=== PATIENT | male | born 1960 | race Caucasian/White ===

== ENCOUNTER 2021-04-01 16:37 | Inpatient (IN) | payer MEDICARE, SELFPAY ==
[2021-04-01] VITALS (14 sets, daily range): BP systolic 106–154; BP diastolic 43–89; PULSE 66–89; RESP 14–18; TEMP 36.1–36.6; O2SAT 93–100; BMI 29.2
--- NOTE | ~2021-04-01 | NM_ITS ---
EXAMINATION: NM BONE SCAN OF THE WHOLE BODY CLINICAL INFORMATION: Prostate cancer staging. COMPARISON: CT chest, abdomen and pelvis 04/02/2021 TECHNIQUE: Multiple gamma scintillation camera images of the whole body were performed 3 1/4 hours following the intravenous administration of 23.0 mCi Tc-99m MDP. FINDINGS: In the head, no abnormal activity is seen to suspect any metastasis. In the thoracic cage and upper extremities, there is punctate increased activity right posterior 6th and left posterior 11th ribs. There is intense activity seen left humeral head and [id number] increased activity right humeral head. Nonspecific soft tissue activity is seen in the left forearm, likely site of injection. In the spine, moderate focal activity is seen right T10 vertebra, suspicious. In the pelvis, no abnormal metabolic activity is seen. In the lower extremities, there is a photopenic defect in the right hip joint and bilateral knee joints likely related to prostheses. No abnormal metabolic activity is seen. No other definite bony abnormalities are noted. The urinary bladder and faint visualization of both kidneys are noted. NM/NM bone scan whole body IMPRESSION: Moderate increased activity seen in the right posterior 6th, left posterior 11th ribs, bilateral humeral heads slightly greater on the left, and right posterior 10th vertebra suspicious and suggestive of metastatic disease. Correlation with right shoulder joint to exclude arthritis versus metastatic disease can be performed. The right shoulder joint was not well visualized on the CT chest exam 04/02/2021. There is mild increased activity in the left hip joint, likely degenerative changes. There are bilateral knee and right hip prostheses producing photopenic defect.
--- NOTE | ~2021-04-01 | US_ITS ---
EXAMINATION: US RETROPERITONEAL LIMITED (RENAL ONLY) CLINICAL INFORMATION: Acute kidney injury. COMPARISON: CT abdomen and pelvis without contrast on 08/31/2018. TECHNIQUE: Grayscale and color Doppler techniques were used to evaluate the bilateral kidneys. Findings: RIGHT KIDNEY: 9.6 x 4.9 x 5.0 cm (SAG x AP x TRV). Corticomedullary Differentiation: Increased renal cortical echogenicity. Hydronephrosis: Moderate to severe Mass: None imaged. Cysts: None imaged. Stones: None imaged LEFT KIDNEY: 9.2 x 5.3 x 6.2 cm (SAG x AP x TRV). Corticomedullary Differentiation: Increased renal cortical echogenicity. Hydronephrosis: Severe. There is dilatation of the proximal left ureter measuring up to 8 mm. Mass: None imaged. Cysts: None imaged. Stones: None imaged BLADDER: The bladder is mostly decompressed around a Zheng catheter. US/US renal BI IMPRESSION: 1. Moderate to severe right-sided hydronephrosis and severe left-sided hydronephrosis. 2. No renal calculi identified. 3. The bladder is decompressed around a Zheng catheter.
--- NOTE | ~2021-04-01 | FL_ITS ---
EXAMINATION: Intraoperative fluoroscopy CLINICAL INFORMATION: Bilateral stent placement COMPARISON: CT abdomen pelvis April 02, 2021 TECHNIQUE: Intraoperative fluoroscopy was provided for use by Dr. Restrepo. A total of 5 images were saved to PACS. A radiologist was not present during imaging. Today's dictation is only for administrative purposes to document intraoperative fluoroscopic usage. TOTAL FLUOROSCOPIC TIME: 5 minutes and 53 seconds FL/FL guidance in OR FINDINGS~\^^ Intraoperative fluoroscopy provided for use by Dr. Restrepo. Please see operative note for detailed findings.
--- NOTE | ~2021-04-01 | US_ITS ---
EXAMINATION: US RETROPERITONEAL LIMITED (RENAL ONLY) CLINICAL INFORMATION: Evaluate for hydronephrosis. Patient is postop bilateral ureteral stent placement with no improvement in renal function. COMPARISON: Previous renal ultrasound 04/01/[address] of the abdomen and pelvis most recent 04/02/2021 TECHNIQUE: Grayscale and color imaging of the kidneys FINDINGS: RIGHT KIDNEY: 10.2 x 5.9 x 6.4 cm (SAG x AP x TRV). The kidney is normal in size, contour, and echogenicity. Renal cortical thickness is normal. There is severe right hydronephrosis. This does not appear appreciably changed from previous exam. Ureteral stent is seen in the right renal pelvis. The visualized right ureter is dilated. LEFT KIDNEY: 9.8 x 5.4 x 6.4 cm (SAG x AP x TRV). The kidney is normal in size, contour, and echogenicity. There is left renal cortical thinning. There are severe left hydronephrosis. This does not appear appreciably changed. Ureteral stent is seen in an upper pole calyx. The visualized left ureter is dilated. US/US renal BI IMPRESSION: Severe bilateral hydronephrosis not appreciably changed from 04/01/2021 exam.
--- NOTE | ~2021-04-01 | IR_ITS ---
PROCEDURE: FLUOROSCOPY NEPHROSTOGRAM CLINICAL INFORMATION: Bilateral nephrostomy tube placement. COMPARISON: Acute on chronic renal failure and bilateral hydronephrosis. Prostate cancer. Patient is post bilateral internal ureteral stent placement without improvement in renal function. Renal ultrasound demonstrates persistent bilateral hydronephrosis post ureteral stent placement. TECHNIQUE: Procedure and risks and benefits including bleeding, infection and injury to the kidneys was discussed with the patient and informed consent was obtained. The patient was positioned in the prone position. All elements of maximal sterile barrier technique followed including use of cap, mask, sterile gown, sterile gloves, a sterile full body drape and hand hygiene. Also followed skin preparation with 2% chlorhexidine for cutaneous antisepsis, and sterile ultrasound preparation with sterile gel and probe cover when applicable. The left flank was prepped and draped in the usual sterile fashion. The skin and soft tissues were anesthetized with 1% lidocaine plain. Using ultrasound guidance and a 22-gauge Chiba needle, left lower pole calyceal access was obtained. Over a 0.018 wire, a 6 [place] AccuStick system was positioned in the left renal collecting system. Over a 0.035 guidewire, an 8.5 [place]hi pigtail nephrostomy tube was positioned in the left renal collecting system. The right flank was prepped and draped in the usual sterile fashion. The skin and soft tissues were anesthetized with 1% lidocaine plain. Using ultrasound guidance and a 22-gauge Chiba needle, right lower pole calyceal access was obtained. Over a 0.018 wire, a 6 [place] AccuStick system was positioned in the right renal collecting system. Over a 0.035 guidewire, an 8.5 [place] pigtail nephrostomy tube was positioned in the right renal collecting system. Urine specimen was sent for culture and cytology from both nephrostomy tubes. Real-time ultrasound guidance was used. Formal ultrasound pictures were recorded. The patient received Versed 1 mg and fentanyl 50 mcg intravenously during the procedure. FINDINGS: [employer] film demonstrates bilateral internal ureteral stents. There is severe bilateral hydronephrosis and bilateral ureteral dilatation. Final images demonstrate bilateral nephrostomy tube placement in the renal pelvises. TOTAL SEDATION TIME: 60 minutes. FLUOROSCOPY TIME: 7.1 minutes. DOSE AREA PRODUCT: 2114 cGy-cm2 (mcgarry per centimeter squared). IR/IR nephrostomy IMPRESSION: Bilateral nephrostomy tube placement.
--- NOTE | ~2021-04-01 | XR_ITS ---
EXAMINATION: CHEST 2 VIEWS CLINICAL INFORMATION: Dyspnea, weight loss rule out mass, pneumonia . COMPARISON: 08/31/2018. TECHNIQUE: PA and lateral views of the chest obtained. FINDINGS: Lungs are well-expanded with no focal infiltrate, effusion, edema, or pneumothorax. Cardiac and mediastinal silhouettes within normal limits for size. Chronic fusion of the anterior left fourth and fifth ribs seen. There is a 4.8 cm sclerotic lesion in the left humeral head now seen. Etiology of this is uncertain. XR/XR chest 2V IMPRESSION: Sclerotic lesion in the left humeral head of uncertain etiology. This was not definitively seen on the prior study but shoulders not included in its entirety on the prior chest x-ray. Clinical correlation recommended. Dedicated shoulder films could be obtained if needed.
--- NOTE | ~2021-04-01 | CT_ITS ---
EXAMINATION: CT CHEST, ABDOMEN AND PELVIS WITH CONTRAST CLINICAL INFORMATION: Shortness of breath Chest x-ray 04/01/2021. CT abdomen pelvis 08/31/2018 COMPARISON: None. TECHNIQUE: Multidetector volumetric CT imaging of the chest, abdomen and pelvis was obtained after the administration of 50 mL of intravenous Ultravist without immediate adverse reactions. [This CT examination was performed using dose optimization techniques as appropriate, variously including the following: *Automated exposure control *Adjustment of mA and/or kV according to patient size (this includes techniques or standardized protocols for targeted exams where dose is matched to indication/reason for exam; i.e. extremities or head) *Use of iterative reconstruction technique] DLP: 768 mGy-cm. FINDINGS: CT CHEST: Lungs: The lungs are clear with no evidence of inflammation or nodules. There are a few scattered focal pleural thickening along the major fissure in the right lung and minor fissure consistent with an intrafissural lymph nodes. Mediastinum: No mediastinal mass or significant lymphadenopathy. The heart size is normal. No pericardial effusion. No aneurysm of aorta. Moderate volume of vascular calcification of coronary arteries. Pleura: There is no pleural effusion. No pleural mass or thickening. Axilla: No lymphadenopathy. CT ABDOMEN AND PELVIS: Liver, Gallbladder and Biliary Tree: The liver is normal in size, shape, and attenuation. No focal hepatic lesion or biliary ductal dilatation is present. The gallbladder is unremarkable with no evidence of radiopaque gallstones, gallbladder wall thickening, or obvious pericholecystic inflammatory changes. Pancreas: No acute change of the pancreas. No mass. No pancreatic duct dilatation. Spleen: Spleen normal in size and contour. No focal lesion. Adrenal Glands: Adrenal glands are normal in size. No focal mass. Kidneys and Ureters: There is chronic hydronephrosis of both kidneys with distention renal pelvis calyces and bilateral hydroureter. This is unchanged since the CAT scan of 08/31/2018. There is mild cortical thinning of both kidneys. Cortical thinning has progressed since prior study of 2019. No renal or ureteral calculus. Bladder: Zheng catheter within the bladder. Bladder is empty. Bladder wall is thickened but this can be accentuated by the bladder being empty. Bladder wall measures about 2 cm in thickness. Gastrointestinal Tract: There are scattered diverticula of the left colon. There is no diverticulitis. There is no bowel wall thickening /edema. There is no bowel obstruction. There is a moderate volume of stool in the colon. The appendix is normal . The small bowel loops are unremarkable. The stomach is normal. There is no hiatal hernia. Mesentery: No focal inflammation. No free fluid. No free air. Abdominal Wall: No significant hernia is appreciated. Lymph Nodes: Normal. Vascular: Atherosclerotic vascular calcifications of aorta and iliac arteries. There is no aneurysm. Pelvic Viscera: Prostate measures 4.0 cm transverse. Osseous Structures: Multilevel degenerative spondylosis spine. There are numerous osteosclerotic lesions throughout the skeleton. Larger lesions present at T10 and L4 vertebrae and left humeral head. There are multiple additional lesions seen throughout the osseous skeleton. Lesions concerning for metastatic disease. Lesions are new since CAT scan 08/31/2018. Status post right hip replacement. CT/CT abdomen pelvis wo con IMPRESSION: 1. Scattered osteosclerotic lesions throughout the osseous skeleton concerning for metastatic disease. Consider bone scan for further assessment. 2. No acute abnormality of the chest. No suspicious lung lesion. 3. Chronic hydronephrosis and hydroureter of both kidneys similar to CAT scan of 08/31/2018. There is progressive cortical thinning of kidneys bilateral. 4. Zheng catheter within the bladder. Diffuse bladder wall thickening which may be accentuated by the bladder being empty. 4. Diverticulosis of the colon. There is no acute abnormality of the bowel.
--- NOTE | 2021-04-01 17:34 | ECG_ITS ---
Test Reason : WEAKNESS Blood Pressure : / mmHG Vent. Rate : 060 BPM Atrial Rate : 060 BPM P-R Int : 174 ms QRS Dur : 094 ms QT Int : 498 ms P-R-T Axes : 072 010 083 degrees QTc Int : 498 ms Normal sinus rhythm Prolonged QT Abnormal ECG When compared with ECG of 15-MAR-2017 11:43, QT has lengthened Referred By: Catracho Smith Electronically Signed By:MELONY MENJIVAR
--- NOTE | 2021-04-01 17:45 | ED_ITS ---
HPI - General Adult General Chief complaint: Weakness Stated complaint: lethargic Time Seen by Provider: 04/01/21 17:25 Source: patient Mode of arrival: ambulatory Limitations: no limitations History of Present Illness HPI narrative: 61-year-old male who presents emergency department for evaluation of weakness shortness of breath and weight loss. Patient states that he has not been feeling well for approximately 2 to weeks. He states he feels short of breath at rest and has significant dyspnea on exertion. He states he has also had a 10-20 lb weight loss over the past 2-3 weeks. He states that he also feel s tired and fatigued which is unusual for him. He states he has had similar symptoms in the past when he had kidney failure and when he had anemia. He denied headache, nausea, vomiting, chest pain, abdominal pain, changes bowel movements, change in his urine. Related Data Home Medications Medication Instructions Recorded Confirmed [id number] acid 300 1 tab PO DAILY 04/01/21 04/01/21 mcg-lycopene 600 mcg-lutein 300 mcg tablet (Centrum Silver Men) Allergies Allergy/AdvReac Type Severity Reaction Status Date / Time No Known Allergies Allergy Unverified 04/17/20 18:44 [No Known Allergies*] Review of Systems Review of Systems: Yes all other systems are reviewed and are negative [facility] Past Medical History [facility] Narrative: Past medical history: None. Past surgical history none: Social history: He denies tobacco, alcohol and drug use. Social History Social History Advance Directives: No Advance Directives Information Provided: Yes Physical Exam Vital Signs: Vital Signs: Last Vital Signs Temp 97.8 F 04/01/21 22:21 Pulse 78 04/01/21 22:21 Resp 18 04/01/21 22:30 BP 148/54 H 04/01/21 22:21 Pulse Ox 94 04/01/21 22:16 Body Mass Index 29.2 Const: General: cooperative and no acute distress Orientation/consciousness: oriented to person and oriented to place Limitations: no limitations HENMT: Head: Yes normal to inspection, Yes normocephalic and Yes atraumatic Ears: external ears normal General nose exam: Normal external nose present Face and sinus: Yes normal facial exam Mouth: Normal oral and palatal mucosa present Throat: Yes posterior oropharynx normal Eyes: General: appearance normal, both eyes and all related structures Pupils: Equal, round and reactive pupils present Neck: Neck: Yes normal visual inspection, Yes no lymphadenopathy, Yes trachea midline and Yes supple Chest: Chest palpation & inspection: normal inspection of the chest and normal palpation of entire chest wall Resp: Effort & Inspection: normal respiratory effort and able to speak in complete sentences Auscultation: clear to auscultation bilaterally Cardio: Rate: regular rate Rhythm: regular rhythm Heart sounds: S1 normal heart sound present, S2 normal heart sound present and no murmurs GI: Inspection: Yes normal to inspection Palpation (GI): Soft to palpation, nontender and no guarding Auscultation: normal bowel sounds Rectal Exam - Male: Yes visual inspection normal, Yes normal sphincter tone, Yes prostate abnormal (Large prostate versus rectal mass) and Yes heme negative stool (Brown stool) : General: Yes no CVA tenderness Back/Spine/Pelvis: Back: no CVA tenderness Skin: General skin exam: no rashes or lesions noted Neuro: General: oriented to person and oriented to place Cranial nerves: Yes CN's II-XII intact bilaterally and Yes Equal, round and reactive pupils present Cognition (Neuro): normal cognition Motor exam (neuro): 5/5 motor strength present throughout Extrem: General: Yes normal to inspection Psych: Appearance: grossly normal Speech and movement: Normal speech and movement present Affect: normal affect Attitude: cooperative Thought process: Normal thought process present Thought content: Normal thought content present Course Course Course Narrative: 61-year-old male who presents emergency department for evaluation shortness of breath, dyspnea on exertion and weight loss over the past 2-3 weeks. Vital signs were normal. The patient's physical examination was unremarkable except for a very large prostate versus rectal mass. Stool was Hemoccult negative. I did order laboratory evaluation on this patient, EKG and chest x-ray. 1848: Patient's CBC revealed normal white blood count of 7100, anemia with an H&H of 5.9 and 16.3 with a low MCV of 76.5 The patient has had anemia in the past with an H&H of 8.4 and 26.1 on 01/18/2019. The patient had normal MCV is at that time. Patient also has an elevated D-dimer given the elevated D-dimer and the fact the patient had a large prostate verses rectal mass, I did order a CT scan of the chest, abdomen pelvis with IV contrast to look for possible malignancy/PE. I did order 2 units of packed red blood cells to be transfused as soon as available. 2031: CMP revealed acute kidney injury with a BUN of 165 and a creatinine of 14.63. Therefore CT scan of chest, abdomen, pelvis with IV contrast was canceled. This was compared to a BUN of 64 and creatinine of 4.69 on 10/04/2018. Patient's sodium and bicarb were low at 127 and 6. The patient's anion gap was elevated at 29. Calcium was low at 5.0 with a normal albumin of 4.3. CK was elevated at 910. 1+ protein, glucose was 100, 2+ blood, 1+ leukocyte esterase. Microscopic revealed 1-4 RBCs, 1-4 WBCs and 1+ bacteria. I did discuss these findings with our covering bilingual administrative assistant, Dr. Gallego. He recommended adding the following tests: urinalysis, urine sodium, urine creatinine, urine protein, serum osmolality, urine osmolality, PTH level, and renal ultrasound of the kidneys and bladder to rule out obstruction. He also ordered a Zheng catheter, this was placed by nursing staff and the patient had 600 cc of urine in his bladder. Dr. Gallego recommended calcium gluconate 1 g IV over 1 hour and D5W with 150 mEq of sodium bicarb at 125 mL/hr. I will discuss the patient's presentation with the covering hospitalist. 2106: I did discuss the a patient's presentation with the covering hospitalist, he requested that we repeat the CBC, CMP to verify that these labs were accurate. He also requested a venous pH to determine if the patient needs IMC vs ICU. The patient has not gotten his blood transfusion yet. The hospitalist also requested 2 L of normal saline IV which were ordered. 2223: Patient's venous pH was 7.13. I did present the patient to the covering solar field service technician, Dr. Lowery who accepted the patient in the ICU. Medical Decision Making Lab Data Result diagrams: 04/01/21 21:32 04/01/21 21:32 Labs: Lab Results 04/01/21 04/01/21 04/01/21 Range/Units 18:02 18:02 18:03 WBC 7.1 (4.8-10.8) X10*3/uL RBC 2.13 L (4.60-5.80) X10*6/uL Hgb 5.9 L* (14.0-18.0) g/dl Hct 16.3 L* (42-52) % MCV 76.5 L (80-98) fL MCH 27.7 (27.0-33.0) pg MCHC 36.2 H (31.0-36.0) g/dl RDW 14.0 (11.0-16.0) % Plt Count 271 (160-400) X10*3/uL MPV 10.7 (9.4-12.4) fL Immature Gran % (Auto) 0.8 H (0.0-0.4) % Neut % (Auto) 83.7 H (45-73) % Lymph % (Auto) 7.5 L (20-40) % [place] % (Auto) 7.2 (2-11) % Eos % (Auto) 0.4 (0-4) % Baso % (Auto) 0.4 (0-2) % Lymph # (Auto) 0.5 L (1.2-4.9) X10*3/uL [place] # (Auto) 0.5 (0.1-1.2) X10*3/uL Eos # (Auto) 0.0 (0.0-0.4) X10*3/uL Baso # (Auto) 0.0 (0.0-0.2) X10*3/uL Abs Immat Gran (auto) 0.06 H (0.00-0.03) X10*3/uL Absolute Neuts (auto) 5.9 (2.0-8.3) X10*3/uL Absolute Nucleated RBC 0.000 (0.0-0.012) X10*3/uL Nucleated RBC % (auto) 0.0 (0.0-0.2) /100WBC PT (9.9-13.0) SEC INR (0.9-1.1) APTT (24.1-38.0) SEC D-Dimer NG/ML VBG pH (7.32-7.43) VBG pCO2 mmHg VBG pO2 mmHg VBG HCO3 (22-26) mmol/L VBG O2 Saturation % VBG Base Excess mmol/L Sodium (135-145) mmol/L Potassium (3.3-5.1) mmol/L Chloride (96-108) mmol/L Carbon Dioxide (22-29) mmol/L Anion Gap (12-20) BUN (9-16) mg/dL Creatinine (0.5-1.4) mg/dL Estim Creat Clear Calc Estimated GFR Random Glucose (60-115) mg/dL Osmolality (281-305) mosm/kg Lactic Acid (0.5-2.0) mmol/L Calcium (8.4-10.2) mg/dL Iron (45-160) mcg/dL TIBC (228-428) mcg/dL % Saturation (15-50) % Unsat Iron Binding ug/dL Total Bilirubin (0.0-1.0) mg/dL AST (5-37) U/L ALT (0-40) U/L Alkaline Phosphatase (39-117) U/L Total Creatine Kinase (38-174) U/L Troponin I High Sens (<3.5-35.0) ng/L B-Natriuretic Peptide 67 (<100) pg/mL Total Protein (6.5-8.0) g/dL Albumin (3.5-5.0) g/dL Lipase (8-78) U/L TSH 2.29 (0.32-4.0) uIU/mL Urine Color Urine Appearance Urine pH (5.0-8.0) Ur Specific [place] (1.005-1.025) Urine Protein (NEG-TRACE) MG/DL Urine Glucose (UA) (NEG) MG/DL Urine Ketones (NEG) MG/DL Urine Blood (NEG) Urine Nitrite (NEG) Ur Leukocyte Esterase (NEG) Urine RBC (0) /HPF Urine WBC (0-4) /HPF Ur Squamous Epith Cells /LPF Urine Bacteria /LPF Urine Osmolality (373-1093) mosm/kg U Random Total Protein (<12) mg/dL Ur Random Sodium mmol/L Urine Creatinine mg/dL Urine Opiates Screen (Not Detect) Urine Fentanyl Screen (Not Detect) Ur Barbiturates Screen (Not Detect) Ur Phencyclidine Scrn (Not Detect) Ur Amphetamines Screen (Not Detect) U Benzodiazepines Scrn (Not Detect) Urine Cocaine Screen (Not Detect) U Marijuana (THC) Screen (Not Detect) COVID-19 ([facility]) (Negative) COVID-19 Clin Com Blood Type Antibody Screen Crossmatch 04/01/21 04/01/21 04/01/21 Range/Units 18:03 18:03 18:03 WBC (4.8-10.8) X10*3/uL RBC (4.60-5.80) X10*6/uL Hgb (14.0-18.0) g/dl Hct (42-52) % MCV (80-98) fL MCH (27.0-33.0) pg MCHC (31.0-36.0) g/dl RDW (11.0-16.0) % Plt Count (160-400) X10*3/uL MPV (9.4-12.4) fL Immature Gran % (Auto) (0.0-0.4) % Neut % (Auto) (45-73) % Lymph % (Auto) (20-40) % [place] % (Auto) (2-11) % Eos % (Auto) (0-4) % Baso % (Auto) (0-2) % Lymph # (Auto) (1.2-4.9) X10*3/uL [place] # (Auto) (0.1-1.2) X10*3/uL Eos # (Auto) (0.0-0.4) X10*3/uL Baso # (Auto) (0.0-0.2) X10*3/uL Abs Immat Gran (auto) (0.00-0.03) X10*3/uL Absolute Neuts (auto) (2.0-8.3) X10*3/uL Absolute Nucleated RBC (0.0-0.012) X10*3/uL Nucleated RBC % (auto) (0.0-0.2) /100WBC PT 12.5 (9.9-13.0) SEC INR 1.1 (0.9-1.1) APTT 31.8 (24.1-38.0) SEC D-Dimer 1692 NG/ML VBG pH (7.32-7.43) VBG pCO2 mmHg VBG pO2 mmHg VBG HCO3 (22-26) mmol/L VBG O2 Saturation % VBG Base Excess mmol/L Sodium 127 L (135-145) mmol/L Potassium 3.9 (3.3-5.1) mmol/L Chloride 96 (96-108) mmol/L Carbon Dioxide 6 L* (22-29) mmol/L Anion Gap 29 H (12-20) BUN 165 H* (9-16) mg/dL Creatinine 14.63 H* (0.5-1.4) mg/dL Estim Creat Clear Calc 4.6 Estimated GFR 3 Random Glucose 128 H (60-115) mg/dL Osmolality (281-305) mosm/kg Lactic Acid (0.5-2.0) mmol/L Calcium 5.0 L* (8.4-10.2) mg/dL Iron 140 (45-160) mcg/dL TIBC 175 L (228-428) mcg/dL % Saturation 80 H (15-50) % Unsat Iron Binding 35 ug/dL Total Bilirubin 0.6 (0.0-1.0) mg/dL AST 4 L (5-37) U/L ALT 7 (0-40) U/L Alkaline Phosphatase 87 (39-117) U/L Total Creatine Kinase 910 H (38-174) U/L Troponin I High Sens (<3.5-35.0) ng/L B-Natriuretic Peptide (<100) pg/mL Total Protein 6.8 (6.5-8.0) g/dL Albumin 4.3 (3.5-5.0) g/dL Lipase 171 H (8-78) U/L TSH (0.32-4.0) uIU/mL Urine Color Urine Appearance Urine pH (5.0-8.0) Ur Specific [place] (1.005-1.025) Urine Protein (NEG-TRACE) MG/DL Urine Glucose (UA) (NEG) MG/DL Urine Ketones (NEG) MG/DL Urine Blood (NEG) Urine Nitrite (NEG) Ur Leukocyte Esterase (NEG) Urine RBC (0) /HPF Urine WBC (0-4) /HPF Ur Squamous Epith Cells /LPF Urine Bacteria /LPF Urine Osmolality (373-1093) mosm/kg U Random Total Protein (<12) mg/dL Ur Random Sodium mmol/L Urine Creatinine mg/dL Urine Opiates Screen (Not Detect) Urine Fentanyl Screen (Not Detect) Ur Barbiturates Screen (Not Detect) Ur Phencyclidine Scrn (Not Detect) Ur Amphetamines Screen (Not Detect) U Benzodiazepines Scrn (Not Detect) Urine Cocaine Screen (Not Detect) U Marijuana (THC) Screen (Not Detect) COVID-19 ([facility]) Negative (Negative) COVID-19 Clin Com See Note Blood Type Antibody Screen Crossmatch 04/01/21 04/01/21 04/01/21 Range/Units 18:03 18:03 18:07 WBC (4.8-10.8) X10*3/uL RBC (4.60-5.80) X10*6/uL Hgb (14.0-18.0) g/dl Hct (42-52) % MCV (80-98) fL MCH (27.0-33.0) pg MCHC (31.0-36.0) g/dl RDW (11.0-16.0) % Plt Count (160-400) X10*3/uL MPV (9.4-12.4) fL Immature Gran % (Auto) (0.0-0.4) % Neut % (Auto) (45-73) % Lymph % (Auto) (20-40) % [place] % (Auto) (2-11) % Eos % (Auto) (0-4) % Baso % (Auto) (0-2) % Lymph # (Auto) (1.2-4.9) X10*3/uL [place] # (Auto) (0.1-1.2) X10*3/uL Eos # (Auto) (0.0-0.4) X10*3/uL Baso # (Auto) (0.0-0.2) X10*3/uL Abs Immat Gran (auto) (0.00-0.03) X10*3/uL Absolute Neuts (auto) (2.0-8.3) X10*3/uL Absolute Nucleated RBC (0.0-0.012) X10*3/uL Nucleated RBC % (auto) (0.0-0.2) /100WBC PT (9.9-13.0) SEC INR (0.9-1.1) APTT (24.1-38.0) SEC D-Dimer NG/ML VBG pH (7.32-7.43) VBG pCO2 mmHg VBG pO2 mmHg VBG HCO3 (22-26) mmol/L VBG O2 Saturation % VBG Base Excess mmol/L Sodium (135-145) mmol/L Potassium (3.3-5.1) mmol/L Chloride (96-108) mmol/L Carbon Dioxide (22-29) mmol/L Anion Gap (12-20) BUN (9-16) mg/dL Creatinine (0.5-1.4) mg/dL Estim Creat Clear Calc Estimated GFR Random Glucose (60-115) mg/dL Osmolality 332 H (281-305) mosm/kg Lactic Acid (0.5-2.0) mmol/L Calcium (8.4-10.2) mg/dL Iron (45-160) mcg/dL TIBC (228-428) mcg/dL % Saturation (15-50) % Unsat Iron Binding ug/dL Total Bilirubin (0.0-1.0) mg/dL AST (5-37) U/L ALT (0-40) U/L Alkaline Phosphatase (39-117) U/L Total Creatine Kinase (38-174) U/L Troponin I High Sens 18.6 (<3.5-35.0) ng/L B-Natriuretic Peptide (<100) pg/mL Total Protein (6.5-8.0) g/dL Albumin (3.5-5.0) g/dL Lipase (8-78) U/L TSH (0.32-4.0) uIU/mL Urine Color Urine Appearance Urine pH (5.0-8.0) Ur Specific [place] (1.005-1.025) Urine Protein (NEG-TRACE) MG/DL Urine Glucose (UA) (NEG) MG/DL Urine Ketones (NEG) MG/DL Urine Blood (NEG) Urine Nitrite (NEG) Ur Leukocyte Esterase (NEG) Urine RBC (0) /HPF Urine WBC (0-4) /HPF Ur Squamous Epith Cells /LPF Urine Bacteria /LPF Urine Osmolality (373-1093) mosm/kg U Random Total Protein (<12) mg/dL Ur Random Sodium mmol/L Urine Creatinine mg/dL Urine Opiates Screen (Not Detect) Urine Fentanyl Screen (Not Detect) Ur Barbiturates Screen (Not Detect) Ur Phencyclidine Scrn (Not Detect) Ur Amphetamines Screen (Not Detect) U Benzodiazepines Scrn (Not Detect) Urine Cocaine Screen (Not Detect) U Marijuana (THC) Screen (Not Detect) COVID-19 ([facility]) (Negative) COVID-19 Clin Com Blood Type A Positive Antibody Screen NEGATIVE Crossmatch See Detail 04/01/21 04/01/21 04/01/21 Range/Units 18:28 19:52 19:52 WBC (4.8-10.8) X10*3/uL RBC (4.60-5.80) X10*6/uL Hgb (14.0-18.0) g/dl Hct (42-52) % MCV (80-98) fL MCH (27.0-33.0) pg MCHC (31.0-36.0) g/dl RDW (11.0-16.0) % Plt Count (160-400) X10*3/uL MPV (9.4-12.4) fL Immature Gran % (Auto) (0.0-0.4) % Neut % (Auto) (45-73) % Lymph % (Auto) (20-40) % [place] % (Auto) (2-11) % Eos % (Auto) (0-4) % Baso % (Auto) (0-2) % Lymph # (Auto) (1.2-4.9) X10*3/uL [place] # (Auto) (0.1-1.2) X10*3/uL Eos # (Auto) (0.0-0.4) X10*3/uL Baso # (Auto) (0.0-0.2) X10*3/uL Abs Immat Gran (auto) (0.00-0.03) X10*3/uL Absolute Neuts (auto) (2.0-8.3) X10*3/uL Absolute Nucleated RBC (0.0-0.012) X10*3/uL Nucleated RBC % (auto) (0.0-0.2) /100WBC PT (9.9-13.0) SEC INR (0.9-1.1) APTT (24.1-38.0) SEC D-Dimer NG/ML VBG pH (7.32-7.43) VBG pCO2 mmHg VBG pO2 mmHg VBG HCO3 (22-26) mmol/L VBG O2 Saturation % VBG Base Excess mmol/L Sodium (135-145) mmol/L Potassium (3.3-5.1) mmol/L Chloride (96-108) mmol/L Carbon Dioxide (22-29) mmol/L Anion Gap (12-20) BUN (9-16) mg/dL Creatinine (0.5-1.4) mg/dL Estim Creat Clear Calc Estimated GFR Random Glucose (60-115) mg/dL Osmolality (281-305) mosm/kg Lactic Acid 0.7 0.6 (0.5-2.0) mmol/L Calcium (8.4-10.2) mg/dL Iron (45-160) mcg/dL TIBC (228-428) mcg/dL % Saturation (15-50) % Unsat Iron Binding ug/dL Total Bilirubin (0.0-1.0) mg/dL AST (5-37) U/L ALT (0-40) U/L Alkaline Phosphatase (39-117) U/L Total Creatine Kinase (38-174) U/L Troponin I High Sens (<3.5-35.0) ng/L B-Natriuretic Peptide (<100) pg/mL Total Protein (6.5-8.0) g/dL Albumin (3.5-5.0) g/dL Lipase (8-78) U/L TSH (0.32-4.0) uIU/mL Urine Color YELLOW Urine Appearance CLEAR Urine pH 6.0 (5.0-8.0) Ur Specific [place] 1.010 (1.005-1.025) Urine Protein 1+ H (NEG-TRACE) MG/DL Urine Glucose (UA) 100 H (NEG) MG/DL Urine Ketones NEG (NEG) MG/DL Urine Blood 2+ H (NEG) Urine Nitrite NEG (NEG) Ur Leukocyte Esterase 1+ H (NEG) Urine RBC 1-4 (0) /HPF Urine WBC 1-4 (0-4) /HPF Ur Squamous Epith Cells NONE /LPF Urine Bacteria 1+ /LPF Urine Osmolality (373-1093) mosm/kg U Random Total Protein (<12) mg/dL Ur Random Sodium mmol/L Urine Creatinine mg/dL Urine Opiates Screen (Not Detect) Urine Fentanyl Screen (Not Detect) Ur Barbiturates Screen (Not Detect) Ur Phencyclidine Scrn (Not Detect) Ur Amphetamines Screen (Not Detect) U Benzodiazepines Scrn (Not Detect) Urine Cocaine Screen (Not Detect) U Marijuana (THC) Screen (Not Detect) COVID-19 ([facility]) (Negative) COVID-19 Clin Com Blood Type Antibody Screen Crossmatch 04/01/21 04/01/21 04/01/21 Range/Units 19:52 19:52 19:52 WBC (4.8-10.8) X10*3/uL RBC (4.60-5.80) X10*6/uL Hgb (14.0-18.0) g/dl Hct (42-52) % MCV (80-98) fL MCH (27.0-33.0) pg MCHC (31.0-36.0) g/dl RDW (11.0-16.0) % Plt Count (160-400) X10*3/uL MPV (9.4-12.4) fL Immature Gran % (Auto) (0.0-0.4) % Neut % (Auto) (45-73) % Lymph % (Auto) (20-40) % [place] % (Auto) (2-11) % Eos % (Auto) (0-4) % Baso % (Auto) (0-2) % Lymph # (Auto) (1.2-4.9) X10*3/uL [place] # (Auto) (0.1-1.2) X10*3/uL Eos # (Auto) (0.0-0.4) X10*3/uL Baso # (Auto) (0.0-0.2) X10*3/uL Abs Immat Gran (auto) (0.00-0.03) X10*3/uL Absolute Neuts (auto) (2.0-8.3) X10*3/uL Absolute Nucleated RBC (0.0-0.012) X10*3/uL Nucleated RBC % (auto) (0.0-0.2) /100WBC PT (9.9-13.0) SEC INR (0.9-1.1) APTT (24.1-38.0) SEC D-Dimer NG/ML VBG pH (7.32-7.43) VBG pCO2 mmHg VBG pO2 mmHg VBG HCO3 (22-26) mmol/L VBG O2 Saturation % VBG Base Excess mmol/L Sodium (135-145) mmol/L Potassium (3.3-5.1) mmol/L Chloride (96-108) mmol/L Carbon Dioxide (22-29) mmol/L Anion Gap (12-20) BUN (9-16) mg/dL Creatinine (0.5-1.4) mg/dL Estim Creat Clear Calc Estimated GFR Random Glucose (60-115) mg/dL Osmolality (281-305) mosm/kg Lactic Acid (0.5-2.0) mmol/L Calcium (8.4-10.2) mg/dL Iron (45-160) mcg/dL TIBC (228-428) mcg/dL % Saturation (15-50) % Unsat Iron Binding ug/dL Total Bilirubin (0.0-1.0) mg/dL AST (5-37) U/L ALT (0-40) U/L Alkaline Phosphatase (39-117) U/L Total Creatine Kinase (38-174) U/L Troponin I High Sens (<3.5-35.0) ng/L B-Natriuretic Peptide (<100) pg/mL Total Protein (6.5-8.0) g/dL Albumin (3.5-5.0) g/dL Lipase (8-78) U/L TSH (0.32-4.0) uIU/mL Urine Color Urine Appearance Urine pH (5.0-8.0) Ur Specific [place] (1.005-1.025) Urine Protein (NEG-TRACE) MG/DL Urine Glucose (UA) (NEG) MG/DL Urine Ketones (NEG) MG/DL Urine Blood (NEG) Urine Nitrite (NEG) Ur Leukocyte Esterase (NEG) Urine RBC (0) /HPF Urine WBC (0-4) /HPF Ur Squamous Epith Cells /LPF Urine Bacteria /LPF Urine Osmolality 251 L (373-1093) mosm/kg U Random Total Protein 33 H (<12) mg/dL Ur Random Sodium 35.0 mmol/L Urine Creatinine 63.03 mg/dL Urine Opiates Screen Not Detected (Not Detect) Urine Fentanyl Screen Not Detected (Not Detect) Ur Barbiturates Screen Not Detected (Not Detect) Ur Phencyclidine Scrn Not Detected (Not Detect) Ur Amphetamines Screen Not Detected (Not Detect) U Benzodiazepines Scrn Not Detected (Not Detect) Urine Cocaine Screen Not Detected (Not Detect) U Marijuana (THC) Screen Not Detected (Not Detect) COVID-19 ([facility]) (Negative) COVID-19 Clin [facility] Blood Type Antibody Screen Crossmatch 04/01/21 04/01/21 04/01/21 Range/Units 21:32 21:32 21:38 WBC 7.2 (4.8-10.8) X10*3/uL RBC 2.14 L (4.60-5.80) X10*6/uL Hgb 5.9 L* (14.0-18.0) g/dl Hct 16.4 L* (42-52) % MCV 76.6 L (80-98) fL MCH 27.6 (27.0-33.0) pg MCHC 36.0 (31.0-36.0) g/dl RDW 14.3 (11.0-16.0) % Plt Count 272 (160-400) X10*3/uL MPV 10.8 (9.4-12.4) fL Immature Gran % (Auto) 0.6 H (0.0-0.4) % Neut % (Auto) 84.9 H (45-73) % Lymph % (Auto) 6.9 L (20-40) % [place] % (Auto) 6.9 (2-11) % Eos % (Auto) 0.4 (0-4) % Baso % (Auto) 0.3 (0-2) % Lymph # (Auto) 0.5 L (1.2-4.9) X10*3/uL [place] # (Auto) 0.5 (0.1-1.2) X10*3/uL Eos # (Auto) 0.0 (0.0-0.4) X10*3/uL Baso # (Auto) 0.0 (0.0-0.2) X10*3/uL Abs Immat Gran (auto) 0.04 H (0.00-0.03) X10*3/uL Absolute Neuts (auto) 6.2 (2.0-8.3) X10*3/uL Absolute Nucleated RBC 0.000 (0.0-0.012) X10*3/uL Nucleated RBC % (auto) 0.0 (0.0-0.2) /100WBC PT (9.9-13.0) SEC INR (0.9-1.1) APTT (24.1-38.0) SEC D-Dimer NG/ML VBG pH 7.13 L* (7.32-7.43) VBG pCO2 13 mmHg VBG pO2 69 mmHg VBG HCO3 4 L (22-26) mmol/L VBG O2 Saturation 88.0 % VBG Base Excess -22.0 mmol/L Sodium 128 L (135-145) mmol/L Potassium 4.1 (3.3-5.1) mmol/L Chloride 97 (96-108) mmol/L Carbon Dioxide 6 L* (22-29) mmol/L Anion Gap 29 H (12-20) BUN 168 H* (9-16) mg/dL Creatinine 14.66 H* (0.5-1.4) mg/dL Estim Creat Clear Calc 4.6 Estimated GFR 3 Random Glucose 113 (60-115) mg/dL Osmolality (281-305) mosm/kg Lactic Acid (0.5-2.0) mmol/L Calcium 5.2 L* (8.4-10.2) mg/dL Iron (45-160) mcg/dL TIBC (228-428) mcg/dL % Saturation (15-50) % Unsat Iron Binding ug/dL Total Bilirubin 0.6 (0.0-1.0) mg/dL AST 3 L (5-37) U/L ALT 7 (0-40) U/L Alkaline Phosphatase 85 (39-117) U/L Total Creatine Kinase (38-174) U/L Troponin I High Sens (<3.5-35.0) ng/L B-Natriuretic Peptide (<100) pg/mL Total Protein 6.7 (6.5-8.0) g/dL Albumin 4.3 (3.5-5.0) g/dL Lipase (8-78) U/L TSH (0.32-4.0) uIU/mL Urine Color Urine Appearance Urine pH (5.0-8.0) Ur Specific [place] (1.005-1.025) Urine Protein (NEG-TRACE) MG/DL Urine Glucose (UA) (NEG) MG/DL Urine Ketones (NEG) MG/DL Urine Blood (NEG) Urine Nitrite (NEG) Ur Leukocyte Esterase (NEG) Urine RBC (0) /HPF Urine WBC (0-4) /HPF Ur Squamous Epith Cells /LPF Urine Bacteria /LPF Urine Osmolality (373-1093) mosm/kg U Random Total Protein (<12) mg/dL Ur Random Sodium mmol/L Urine Creatinine mg/dL Urine Opiates Screen (Not Detect) Urine Fentanyl Screen (Not Detect) Ur Barbiturates Screen (Not Detect) Ur Phencyclidine Scrn (Not Detect) Ur Amphetamines Screen (Not Detect) U Benzodiazepines Scrn (Not Detect) Urine Cocaine Screen (Not Detect) U Marijuana (THC) Screen (Not Detect) COVID-19 ([facility]) (Negative) COVID-19 Clin Com Blood Type Antibody Screen Crossmatch Critical Care Time Critical Care Time Critical Care Time: Yes Total Critical Care Time: 80 Attestation: Critical Care: The patient was critically ill with a high probability of imminent or life threatening deterioration. I spent greater than 30 minutes of discontinuous time evaluating the patient,delivering critical care at the bedside, discussing and evaluating pertinent data with consultants. Critical care time does not include time spent performing separately billable procedures or teaching. Total time spent performing critical care was 80 minutes. Discharge Plan Discharge Clinical Impression: Acute kidney injury, Acute anemia, Hypocalcemia Patient Disposition: Admitted As Inpatient
[2021-04-01 18:11] LABS: MANUAL DIFF FLAG NO
[2021-04-01 18:18] LABS: INTERNATIONAL NORM RATIO 1.1 (0.9-1.1); Prothrombin Time 12.5 SEC (9.9-13.0)
[2021-04-01 18:20] LABS: Basophils Percent Auto 0.4 % (0-2); Eosinophils Percent Auto 0.4 % (0-4); Imm Gran Abs Auto 0.06 X10*3/uL (0.00-0.03); Imm Gran Pct Auto 0.8 % (0.0-0.4); Lymphocytes Absolute Auto 0.5 X10*3/uL (1.2-4.9); Lymphocytes Percent Auto 7.5 % (20-40); Mean Corpuscular HGB Conc 36.2 g/dl (31.0-36.0); Mean Corpuscular Hemoglobin 27.7 pg (27.0-33.0); Mean Corpuscular Volume 76.5 fL (80-98); Mean Platelet Volume 10.7 fL (9.4-12.4); Monocytes Absolute Auto 0.5 X10*3/uL (0.1-1.2); Monocytes Percent Auto 7.2 % (2-11); Neutrophils Absolute Auto 5.9 X10*3/uL (2.0-8.3); Neutrophils Percent Auto 83.7 % (45-73); Platelet Count 271 X10*3/uL (160-400); Red Blood Count 2.13 X10*6/uL (4.60-5.80); White Blood Count 7.1 X10*3/uL (4.8-10.8)
[2021-04-01 18:21] LABS: Partial Thromboplastin Time 31.8 SEC (24.1-38.0)
[2021-04-01 18:22] LABS: Hematocrit 16.3 % (42-52)
[2021-04-01 18:26] LABS: Hemoglobin 5.9 g/dl (14.0-18.0)
[2021-04-01 18:28] LABS: D Dimer 1692 NG/ML
[2021-04-01 18:35] LABS: Troponin-I High Sensitivity 18.6 ng/L (<3.5-35.0)
[2021-04-01 18:35] LABS: B Type Natriuretic Peptide 67 pg/mL (<100)
[2021-04-01 18:39] LABS: COVID-19 Test Negative (Negative); IDNOW Serial# 55D5AD1C
[2021-04-01 18:45] LABS: Lactic Acid 0.7 mmol/L (0.5-2.0)
[2021-04-01 18:52] LABS: TSH reflex Free T4 2.29 uIU/mL (0.32-4.0)
[2021-04-01 18:58] LABS: Alanine Aminotransferase 7 U/L (0-40); Albumin Level 4.3 g/dL (3.5-5.0); Alkaline Phosphatase 87 U/L (39-117); Anion Gap 29 (12-20); Aspartate Amino Transferase 4 U/L (5-37); Bilirubin Total 0.6 mg/dL (0.0-1.0); Blood Urea Nitrogen 165 mg/dL (9-16); Carbon Dioxide 6 mmol/L (22-29); Chloride 96 mmol/L (96-108); Creatinine Clr Calc Pharmacy 4.6; Estimated Glomerular Filt Rate 3; Glucose Random 128 mg/dL (60-115); Iron 140 mcg/dL (45-160); Lipase 171 U/L (8-78); Percent Iron Saturation 80 % (15-50); Potassium 3.9 mmol/L (3.3-5.1); Sodium 127 mmol/L (135-145); Total Iron Binding Capacity 175 mcg/dL (228-428); Total Protein 6.8 g/dL (6.5-8.0); Unsaturated Iron Binding 35 ug/dL
--- NOTE | 2021-04-01 19:30 | PC.NURSE ---
ASSUMED CARE OF PT. LABS BEING DRAWN AT THIS TIME. SORIA INSERTED W/O DIFFICULTY. 2ND LINE PLACED.
[2021-04-01 20:02] LABS: Osmolality, Serum 332 mosm/kg (281-305)
[2021-04-01 20:02] LABS: Glucose Urine UA 100 MG/DL (NEG); Leukocyte Esterase Urine 1+ (NEG); Nitrite Urine NEG (NEG); UACC Culture Trigger YES; Urine Blood 2+ (NEG); Urine Ketones NEG (NEG); Urine Protein 1+ MG/DL (NEG-TRACE)
[2021-04-01 20:04] LABS: Appearance Urine CLEAR; Color Urine YELLOW
[2021-04-01 20:08] LABS: Bacteria Urine 1+ /LPF
[2021-04-01] MEDS: Calcium Gluconate/NaCl,Iso-Osm 1 GM/50 ML PLAST..BAG IV (20:11)
[2021-04-01 20:21] LABS: Lactic Acid 0.6 mmol/L (0.5-2.0)
[2021-04-01 20:40] LABS: Osmolality Urine 251 mosm/kg (373-1093)
--- NOTE | 2021-04-01 20:45 | PC.NURSE ---
2ND IV INFILTRATED. NEW IV INSERTED AT THIS TIME. PT ON MONITOR, VS OBTAINED.
[2021-04-01 20:50] LABS: Creatinine Urine 63.03 mg/dL; Total Protein Urine Random 33 mg/dL (<12)
[2021-04-01 20:51] LABS: Amphetamine Screen Urine Not Detected (Not Detect); Barbiturates, Urine Not Detected (Not Detect); Benzodiazepines Screen Urine Not Detected (Not Detect); Cannabinoid Screen Urine Not Detected (Not Detect); Cocaine Screen Urine Not Detected (Not Detect); Fentanyl, urine Not Detected (Not Detect); Opiate Screen Urine Not Detected (Not Detect); Phencyclidine Screen Urine Not Detected (Not Detect)
--- NOTE | 2021-04-01 21:07 | PC.NURSE ---
TRANSFUSION STARTED. VS OBTAINED. MEDICATED PER EMAR FOR PAIN.
[2021-04-01] MEDS: Morphine Sulfate 4 MG/ML CARTRIDGE IVPUSH ×2 (21:15→22:30)
[2021-04-01] MEDS: 0.9 % Sodium Chloride 1,000 ML 999 ML IV ×2 (21:17→21:44)
[2021-04-01 21:40] LABS: Venous Blood Gas Refer to POC result
[2021-04-01 21:41] LABS: Basophils Percent Auto 0.3 % (0-2); Eosinophils Percent Auto 0.4 % (0-4); Imm Gran Abs Auto 0.04 X10*3/uL (0.00-0.03); Imm Gran Pct Auto 0.6 % (0.0-0.4); Lymphocytes Absolute Auto 0.5 X10*3/uL (1.2-4.9); Lymphocytes Percent Auto 6.9 % (20-40); MANUAL DIFF FLAG NO; Mean Corpuscular Hemoglobin 27.6 pg (27.0-33.0); Mean Corpuscular Volume 76.6 fL (80-98); Mean Platelet Volume 10.8 fL (9.4-12.4); Monocytes Absolute Auto 0.5 X10*3/uL (0.1-1.2); Monocytes Percent Auto 6.9 % (2-11); Neutrophils Absolute Auto 6.2 X10*3/uL (2.0-8.3); Neutrophils Percent Auto 84.9 % (45-73); Platelet Count 272 X10*3/uL (160-400); Red Blood Count 2.14 X10*6/uL (4.60-5.80); Red Cell Distribution Width 14.3 % (11.0-16.0); White Blood Count 7.2 X10*3/uL (4.8-10.8)
[2021-04-01 21:48] LABS: VBG HCO3 4 mmol/L (22-26); VBG pCO2 13 mmHg; VBG pH 7.13 (7.32-7.43); VBG pO2 69 mmHg
[2021-04-01 21:59] LABS: Hematocrit 16.4 % (42-52); Hemoglobin 5.9 g/dl (14.0-18.0)
[2021-04-01 22:00] LABS: Alanine Aminotransferase 7 U/L (0-40); Albumin Level 4.3 g/dL (3.5-5.0); Alkaline Phosphatase 85 U/L (39-117); Anion Gap 29 (12-20); Aspartate Amino Transferase 3 U/L (5-37); Bilirubin Total 0.6 mg/dL (0.0-1.0); Calcium 5.2 mg/dL (8.4-10.2); Carbon Dioxide 6 mmol/L (22-29); Chloride 97 mmol/L (96-108); Creatinine Clr Calc Pharmacy 4.6; Estimated Glomerular Filt Rate 3; Glucose Random 113 mg/dL (60-115); Potassium 4.1 mmol/L (3.3-5.1); Sodium 128 mmol/L (135-145); Total Protein 6.7 g/dL (6.5-8.0)
--- NOTE | 2021-04-01 22:08 | PC.NURSE ---
NS X 2L UP AND RUNNING W/O DIFFICULTY INTO RAC, SITE INTACT. 1ST UNIT OF PRBC INFUSING SLOWLY INTO LAC, SITE INTACT. VS OBTAINED. SODIUM BICARB ON HOLD UNTIL 2L NS INFUSED. PT RESTLESS AND C/O BACK PAIN. PT APPEARS TO BE UNCOMFORTABLE AND C/O OF BACK PAIN. PT AWAITING FOR HOSPITALIST FOR EVAL. PT REMAINS ON MONITOR. WILL CONTINUE TO MONITOR PT.
--- NOTE | 2021-04-01 22:25 | PHA.MEDREC ---
Pharmacy Consult ? Medication Reconciliation Pharmacy has completed the medication reconciliation. Spoke with patient in ED.
--- NOTE | 2021-04-01 22:31 | PC.NURSE ---
PT RATING PAIN 7/10 TO BACK AREA. MD AWARE AND PT MEDICATED FOR PAIN. VS OBTAINED. AWAITING FOR NS TO INFUSE BEFORE BICARB PER MD'S ORDERS. PT REPOSITIONED FOR COMFORT WILL PILLOWS. WARM BLK APPLIED TO PT. PT REMAINS ON MONITOR WITH HR 76. WILL CONTINUE TO MONITOR PT
--- NOTE | 2021-04-01 22:52 | PC.NURSE ---
PA-ICU IN ROOM FOR EVAL.
[2021-04-01] MEDS: Sodium Bicarbonate 8.4% 150 MEQ in Dextrose 5 % 850 ML 125 MEQ IV (23:11)
--- NOTE | 2021-04-01 23:27 | PC.NURSE ---
REPORT GIVEN TO [facility] ICU. PT TO ICU IN STRETCHER WITH MONITOR. PT LEFT ED IN NAD.
[2021-04-02] VITALS (17 sets, daily range): BP systolic 124–158; BP diastolic 7–76; PULSE 60–81; RESP 12–28; TEMP 36.5–36.8; O2SAT 98–100; BMI 26.8
--- NOTE | 2021-04-02 00:33 | PM.CCHP ---
History of Present Illness Date of Service: 04/01/21 Chief Complaint: I have been feeling very weak and short of breath for 3-4 weeks Reason for admission: ACUTE ON CHRONIC KIDNEY DISEASE, METABOLIC ACIDOSIS, ANEMIA OF CHRONIC DISEASE IN NEED OF TRANSFUSION, HYPOCALCEMIA HPI: ?61-year-old patient with underlying history of medical noncompliance as the patient has history of hypertension, BPH, erosive gastritis, anemia of chronic disease with baseline creatinine of 9 and 27 respectively per records in 2019, chronic kidney disease stage 4 with baseline creatinine between 4 and 5, prior hyperkalemia followed by Dr. Mckay in the distant past.? Patient also reports having history of obstructive your all but the in the setting of prostate issues about 2 years ago. Patient presented to the emergency room with complaints of weakness and shortness of breath which has been present for at least 3-4 weeks in an ongoing but worsening manner to the point that he could not tolerated anymore. ?In addition he reports weight loss of approximately 10-15 lb. ?Patient has been experiencing significant fatigue particularly with exertion, he is not able to walk long distances or ride his bike as he used to.? Denies any cough, sputum production, fever chills, no exposure to someone with COVID, has not traveled.? Patient denies any chest pain, abdominal or flank complaints, he still produces urine, otherwise feels fine with section of being significantly weak and tired. In the Emergency room, the patient had normal vital signs, his workup however is significant for hemoglobin of 5.9, hematocrit 16.4 with MCV of 76.6 and an a negative brown stool guaiac.? Venous blood gas revealed pH of 7.13 with bicarb of 4, sodium 128, potassium 4.1, carbon dioxide 6 anion gap 29. BUN 168, creatinine 14.6 (6.4 and 4.9 respectively from labs 2 years ago) his previous creatinine has been as high as 7. He has never undergone dialysis.? Total CK 910. Normal troponin, no elevation of the BNP.? Normal TSH, pending PTH and intact PTH labs.? Calcium 5.2 which corrected with albumin is 6.3. Nephrology was consulted, they recommended further laboratories and calcium gluconate given QT prolongation.? There is no need for emergent dialysis at this point.? Zheng catheter was placed, patient was started on bicarb drip and transferred to the ICU for further care.? Currently patient has no further complaints. ? ROS:? Denies headache, no visual changes, lightheadedness or dizziness, no history of seizures or strokes, no history of eye or ear problems, no sore throat, cough or sputum production, denies chest pain, palpitations, no coronary disease, pulmonary disease, no hemoptysis, denies any melena, hematochezia, liver problems, no dysuria, hematuria, no leg swelling, no history of DVT or PE.? She has no travel and has not been contact with anybody with? COVID.? All other review of systems negative. Past Medical History: as above Past Surgical History: cystoscopy R hip Replacement Family history: brother of stomach CA at 65 y.o; no hx CAD Social History: ?Patient lives at home by himself, he is using a walker for last couple of months.? Reports a 50 pack-year history of tobacco consumption, quit 5 years ago.? Admits being an alcoholic who stopped drinking 5 years ago, denies drugs.? CODE STATUS: FULL CODE ? Allergies: NKDA Home Medications: None although he was prescribed some medications before for blood pressure and other issues, he has not taken them for he cannot afford them. PHYSICAL EXAM: VS: ?Blood pressure 110/53, heart rate 89, respirations 16, O2 sat 95% on room air. General:? Alert oriented x3 no acute distress.? Speaking full sentences.? Speech is well articulated, thought process is coherent.? Following all commands. Skin:? Intact, no lesions, edema, erythema, clubbing or cyanosis.? No ulcers. HEENT:? Head is normocephalic, atraumatic, pupils equal round reactive to light accommodation bilaterally.? Extraocular movements appear intact.? Buccal mucosa is moist, Neck is supple without lymphadenopathy. Cardiac:? Clear S1-S2, no murmurs rubs or gallops. Pulmonary:? Clear to auscultation, no wheezes, rales or rhonchi. Abdomen:? Protuberant, positive bowel sounds in all 4 quadrants.? Soft, nontender, no rebound or guarding.? Musculoskeletal:? Moving all 4 extremities upon request a major joints, there is no crepitus or tenderness.? The strength is 5/5 bilaterally and throughout all 4 extremities.? There is no leg edema , no calf tenderness , no leg asymmetry.? Gait not assessed at this point. Neurologic:? As above, cranial nerves 2-12 are grossly intact.? No focal deficits noted. Motor strength as above.? Vascular:? 2+ pulses upper and lower extremities distally. ? SIGNIFICANT LABORATORY DATA:? As above REVIEW OF IMAGES: Chest x-ray impression Sclerotic lesion in the left humeral head of uncertain etiology. This was not definitively seen on the prior study but shoulders not included in its entirety on the prior chest x-ray. Clinical correlation recommended. Dedicated shoulder films could be obtained if needed. Renal ultrasound IMPRESSION: 1.? Moderate to severe right-sided hydronephrosis and severe left-sided hydronephrosis. 2.? No renal calculi identified. 3.? The bladder is decompressed around a Zheng catheter EKG REVIEW: ?Sinus rhythm ventricular rate 60 beats per minute.? No ST elevations, no depressions.? QTC 498.? No comparison available. ASSESSMENT AND PLAN: 1. Generalized weakness (multifactorial) likely due to anemia and acute kidney injury 2. Microcytic anemia likely due to chronic kidney disease 3. Acute on chronic kidney disease without prior dialysis likely due to bladder outlet obstruction versus obstructive uropathy versus enlarged prostate 4. Severe metabolic acidosis due to his acute kidney injury 5. Hyperosmolar euvolemic hyponatremia 6. Hypocalcemia (6.3) due to renal disease rule out secondary hyperparathyroidism 7. Moderate to severe right-sided hydronephrosis and severe left-sided hydronephrosis without calculi 8. QT prolongation very likely due to hypocalcemia 10. 10-15 lb unintentional weight loss rule out underlying primary malignancy versus other metabolic causes such as he has chronic kidney disease. 11. Anion gap acidosis due to his underlying metabolic issues.? There is no evidence of sepsis. 12. Elevated CPK likely representing rhabdomyolysis. Admit to ICU, monitor vital signs, I's and O's, gentle IV fluids; urology consult, transfuse packed red blood cells x2 units, repeat lab work in the morning, continue with bicarbonate drip and will order 2 amps of bicarb IV push for faster correction, we appreciate Nephrology's input, will order CT of the abdomen and pelvis as well as a CT of the chest mainly to rule out the possibility of underlying primary mass and other causes of his underlying shortness of breath. ?Will administer and additional 1 g of calcium gluconate for the corrected calcium level is only 6.3; Parathyroid studies, urine electrolytes and creatinine are pending. ?Avoid QT prolonging agents such as Zofran. GI PROPHYLAXIS: ?IV ppi DVT PROPHYLAXIS: ?Pneumatic stockings while in bed, given the degree of anemia I do not feel comfortable placing him on heparin or related products Critical care time used for critical evaluation of this patient, diagnosis, treatment and coordination of care, review her records and documentation TOTAL CRITICAL CARE TIME 90 MIN . Patient's care was discussed in detail with Dr. Lowery.? He is aware of all the above as well as the plan of care for this patient. [facility] Social History Social History Household Members: None Housing: Other Housing Other:: mobile home Do you presently have visiting nurse or other home services: No Patient Tobacco Use Status: Former Tobacco user Tobacco use type: Cigarette Smoked in Last 30 Days: No e-Cigarette/Vaping Use: Former Use Use of substances other than those prescribed or required for medical reasons: No Currently Displaying Signs/Symptoms of Drug Intoxication Withdrawal: No Have you been hit, kicked, punched, or otherwise hurt by someone within the past year? If so, by whom?: No Do you feel safe in your current relationship?: No Current Relationship Is there a partner from a previous relationship who is making you feel unsafe now?: No Are you made to feel afraid or neglected: No Advance Directives: No Advance Directives Information Provided: Yes Do you have thoughts of harming others: None Do you have a plan to hurt others: No Plan Recently lost weight without trying: Yes How much weight loss: 14-23 pounds Nutrition Risks: Acute nausea or vomiting x1 week and Poor intake 0-25% >4 days Meds Allergies Allergy/AdvReac Type Severity Reaction Status Date / Time No Known Allergies Allergy Unverified 04/17/20 18:44 [No Known Allergies*] Active Medications: Current Medications Generic Name Dose Route Start Last Admin Trade Name Freq PRN Reason Stop Dose Admin Sodium Bicarbonate 150 meq/ 1,000 mls @ 125 mls/hr 04/01/21 20:40 04/01/21 23:11 Dextrose IV 125 mls/hr .Q8H FREIDA Administration Calcium Gluconate 1 gm in 50 mls @ 50 mls/hr 04/02/21 00:19 Calcium Gluconate IV 04/02/21 01:18 ONCE ONE Dextrose/Sodium Chloride 1,000 mls @ 100 mls/hr 04/02/21 00:30 D51/2ns IVCONT .Q10H [facility] Pantoprazole Sodium 40 mg 04/02/21 06:30 Pantoprazole Sodium 40 Mg/10 Ml Vial IVPUSH DAILY@0630 [facility] Pharmacy Consult 1 each 04/01/21 21:54 Consult Rx Perform Med Rec MISCELLANE ONCE PRN Consult order Home Medications Medication Instructions Recorded Confirmed Last Taken Type sjhsvdbp-[id number] acid 300 1 tab PO DAILY 04/01/21 04/01/21 03/31/21 History mcg-lycopene 600 mcg-lutein 300 mcg tablet (Centrum Silver Men) Physical Exam Vital Signs: Vital Signs: Last Vital Signs Temp 97.7 F 04/01/21 23:59 Pulse 82 04/01/21 23:59 Resp 18 04/01/21 23:59 BP 128/49 L 04/01/21 23:59 Pulse Ox 99 04/01/21 23:59 Body Mass Index 29.2 Results Labs CBC and Chem 7: 04/02/21 05:14 04/02/21 05:14 Labs: Laboratory Results - last 24 hr 04/01/21 04/01/21 04/01/21 18:02 18:02 18:03 MCV 76.5 L MCH 27.7 MCHC 36.2 H RDW 14.0 Plt Count 271 MPV 10.7 Immature Gran % (Auto) 0.8 H Neut % (Auto) 83.7 H Lymph % (Auto) 7.5 L [place] % (Auto) 7.2 Eos % (Auto) 0.4 Baso % (Auto) 0.4 Lymph # (Auto) 0.5 L [place] # (Auto) 0.5 Eos # (Auto) 0.0 Baso # (Auto) 0.0 Abs Immat Gran (auto) 0.06 H Absolute Neuts (auto) 5.9 Absolute Nucleated RBC 0.000 Nucleated RBC % (auto) 0.0 PT INR APTT D-Dimer VBG pH VBG pCO2 VBG pO2 VBG HCO3 VBG O2 Saturation VBG Base Excess Anion Gap BUN Creatinine Estim Creat Clear Calc Estimated GFR Random Glucose Osmolality Lactic Acid Calcium Iron TIBC % Saturation Unsat Iron Binding Total Bilirubin AST ALT Alkaline Phosphatase Total Creatine Kinase Troponin I High Sens B-Natriuretic Peptide 67 Total Protein Albumin Lipase TSH 2.29 Urine Color Urine Appearance Urine pH Ur Specific [place] Urine Protein Urine Glucose (UA) Urine Ketones Urine Blood Urine Nitrite Ur Leukocyte Esterase Urine RBC Urine WBC Ur Squamous Epith Cells Urine Bacteria Urine Osmolality U Random Total Protein Ur Random Sodium Urine Creatinine Urine Opiates Screen Urine Fentanyl Screen Ur Barbiturates Screen Ur Phencyclidine Scrn Ur Amphetamines Screen U Benzodiazepines Scrn Urine Cocaine Screen U Marijuana (THC) Screen COVID-19 (MIMI) COVID-19 Clin Com Blood Type Antibody Screen Crossmatch 04/01/21 04/01/21 04/01/21 18:03 18:03 18:03 MCV MCH MCHC RDW Plt Count MPV Immature Gran % (Auto) Neut % (Auto) Lymph % (Auto) [place] % (Auto) Eos % (Auto) Baso % (Auto) Lymph # (Auto) [place] # (Auto) Eos # (Auto) Baso # (Auto) Abs Immat Gran (auto) Absolute Neuts (auto) Absolute Nucleated RBC Nucleated RBC % (auto) PT 12.5 INR 1.1 APTT 31.8 D-Dimer 1692 VBG pH VBG pCO2 VBG pO2 VBG HCO3 VBG O2 Saturation VBG Base Excess Anion Gap 29 H BUN 165 H* Creatinine 14.63 H* Estim Creat Clear Calc 4.6 Estimated GFR 3 Random Glucose 128 H Osmolality Lactic Acid Calcium 5.0 L* Iron 140 TIBC 175 L % Saturation 80 H Unsat Iron Binding 35 Total Bilirubin 0.6 AST 4 L ALT 7 Alkaline Phosphatase 87 Total Creatine Kinase 910 H Troponin I High Sens B-Natriuretic Peptide Total Protein 6.8 Albumin 4.3 Lipase 171 H TSH Urine Color Urine Appearance Urine pH Ur Specific [place] Urine Protein Urine Glucose (UA) Urine Ketones Urine Blood Urine Nitrite Ur Leukocyte Esterase Urine RBC Urine WBC Ur Squamous Epith Cells Urine Bacteria Urine Osmolality U Random Total Protein Ur Random Sodium Urine Creatinine Urine Opiates Screen Urine Fentanyl Screen Ur Barbiturates Screen Ur Phencyclidine Scrn Ur Amphetamines Screen U Benzodiazepines Scrn Urine Cocaine Screen U Marijuana (THC) Screen COVID-19 (MIMI) Negative COVID-19 Clin Com See Note Blood Type Antibody Screen Crossmatch 04/01/21 04/01/21 04/01/21 18:03 18:03 18:07 MCV MCH MCHC RDW Plt Count MPV Immature Gran % (Auto) Neut % (Auto) Lymph % (Auto) [place] % (Auto) Eos % (Auto) Baso % (Auto) Lymph # (Auto) [place] # (Auto) Eos # (Auto) Baso # (Auto) Abs Immat Gran (auto) Absolute Neuts (auto) Absolute Nucleated RBC Nucleated RBC % (auto) PT INR APTT D-Dimer VBG pH VBG pCO2 VBG pO2 VBG HCO3 VBG O2 Saturation VBG Base Excess Anion Gap BUN Creatinine Estim Creat Clear Calc Estimated GFR Random Glucose Osmolality 332 H Lactic Acid Calcium Iron TIBC % Saturation Unsat Iron Binding Total Bilirubin AST ALT Alkaline Phosphatase Total Creatine Kinase Troponin I High Sens 18.6 B-Natriuretic Peptide Total Protein Albumin Lipase TSH Urine Color Urine Appearance Urine pH Ur Specific [place] Urine Protein Urine Glucose (UA) Urine Ketones Urine Blood Urine Nitrite Ur Leukocyte Esterase Urine RBC Urine WBC Ur Squamous Epith Cells Urine Bacteria Urine Osmolality U Random Total Protein Ur Random Sodium Urine Creatinine Urine Opiates Screen Urine Fentanyl Screen Ur Barbiturates Screen Ur Phencyclidine Scrn Ur Amphetamines Screen U Benzodiazepines Scrn Urine Cocaine Screen U Marijuana (THC) Screen COVID-19 (MIMI) COVID-19 Clin Com Blood Type A Positive Antibody Screen NEGATIVE Crossmatch See Detail 04/01/21 04/01/21 04/01/21 18:28 19:52 19:52 MCV MCH MCHC RDW Plt Count MPV Immature Gran % (Auto) Neut % (Auto) Lymph % (Auto) [place] % (Auto) Eos % (Auto) Baso % (Auto) Lymph # (Auto) [place] # (Auto) Eos # (Auto) Baso # (Auto) Abs Immat Gran (auto) Absolute Neuts (auto) Absolute Nucleated RBC Nucleated RBC % (auto) PT INR APTT D-Dimer VBG pH VBG pCO2 VBG pO2 VBG HCO3 VBG O2 Saturation VBG Base Excess Anion Gap BUN Creatinine Estim Creat Clear Calc Estimated GFR Random Glucose Osmolality Lactic Acid 0.7 0.6 Calcium Iron TIBC % Saturation Unsat Iron Binding Total Bilirubin AST ALT Alkaline Phosphatase Total Creatine Kinase Troponin I High Sens B-Natriuretic Peptide Total Protein Albumin Lipase TSH Urine Color YELLOW Urine Appearance CLEAR Urine pH 6.0 Ur Specific [place] 1.010 Urine Protein 1+ H Urine Glucose (UA) 100 H Urine Ketones NEG Urine Blood 2+ H Urine Nitrite NEG Ur Leukocyte Esterase 1+ H Urine RBC 1-4 Urine WBC 1-4 Ur Squamous Epith Cells NONE Urine Bacteria 1+ Urine Osmolality U Random Total Protein Ur Random Sodium Urine Creatinine Urine Opiates Screen Urine Fentanyl Screen Ur Barbiturates Screen Ur Phencyclidine Scrn Ur Amphetamines Screen U Benzodiazepines Scrn Urine Cocaine Screen U Marijuana (THC) Screen COVID-19 (MIMI) COVID-19 Clin Com Blood Type Antibody Screen Crossmatch 04/01/21 04/01/21 04/01/21 19:52 19:52 19:52 MCV MCH MCHC RDW Plt Count MPV Immature Gran % (Auto) Neut % (Auto) Lymph % (Auto) [place] % (Auto) Eos % (Auto) Baso % (Auto) Lymph # (Auto) [place] # (Auto) Eos # (Auto) Baso # (Auto) Abs Immat Gran (auto) Absolute Neuts (auto) Absolute Nucleated RBC Nucleated RBC % (auto) PT INR APTT D-Dimer VBG pH VBG pCO2 VBG pO2 VBG HCO3 VBG O2 Saturation VBG Base Excess Anion Gap BUN Creatinine Estim Creat Clear Calc Estimated GFR Random Glucose Osmolality Lactic Acid Calcium Iron TIBC % Saturation Unsat Iron Binding Total Bilirubin AST ALT Alkaline Phosphatase Total Creatine Kinase Troponin I High Sens B-Natriuretic Peptide Total Protein Albumin Lipase TSH Urine Color Urine Appearance Urine pH Ur Specific [place] Urine Protein Urine Glucose (UA) Urine Ketones Urine Blood Urine Nitrite Ur Leukocyte Esterase Urine RBC Urine WBC Ur Squamous Epith Cells Urine Bacteria Urine Osmolality 251 L U Random Total Protein 33 H Ur Random Sodium 35.0 Urine Creatinine 63.03 Urine Opiates Screen Not Detected Urine Fentanyl Screen Not Detected Ur Barbiturates Screen Not Detected Ur Phencyclidine Scrn Not Detected Ur Amphetamines Screen Not Detected U Benzodiazepines Scrn Not Detected Urine Cocaine Screen Not Detected U Marijuana (THC) Screen Not Detected COVID-19 (MIMI) COVID-19 Clin Com Blood Type Antibody Screen Crossmatch 04/01/21 04/01/21 04/01/21 21:32 21:32 21:38 MCV 76.6 L MCH 27.6 MCHC 36.0 RDW 14.3 Plt Count 272 MPV 10.8 Immature Gran % (Auto) 0.6 H Neut % (Auto) 84.9 H Lymph % (Auto) 6.9 L [place] % (Auto) 6.9 Eos % (Auto) 0.4 Baso % (Auto) 0.3 Lymph # (Auto) 0.5 L [place] # (Auto) 0.5 Eos # (Auto) 0.0 Baso # (Auto) 0.0 Abs Immat Gran (auto) 0.04 H Absolute Neuts (auto) 6.2 Absolute Nucleated RBC 0.000 Nucleated RBC % (auto) 0.0 PT INR APTT D-Dimer VBG pH 7.13 L* VBG pCO2 13 VBG pO2 69 VBG HCO3 4 L VBG O2 Saturation 88.0 VBG Base Excess -22.0 Anion Gap 29 H BUN 168 H* Creatinine 14.66 H* Estim Creat Clear Calc 4.6 Estimated GFR 3 Random Glucose 113 Osmolality Lactic Acid Calcium 5.2 L* Iron TIBC % Saturation Unsat Iron Binding Total Bilirubin 0.6 AST 3 L ALT 7 Alkaline Phosphatase 85 Total Creatine Kinase Troponin I High Sens B-Natriuretic Peptide Total Protein 6.7 Albumin 4.3 Lipase TSH Urine Color Urine Appearance Urine pH Ur Specific [place] Urine Protein Urine Glucose (UA) Urine Ketones Urine Blood Urine Nitrite Ur Leukocyte Esterase Urine RBC Urine WBC Ur Squamous Epith Cells Urine Bacteria Urine Osmolality U Random Total Protein Ur Random Sodium Urine Creatinine Urine Opiates Screen Urine Fentanyl Screen Ur Barbiturates Screen Ur Phencyclidine Scrn Ur Amphetamines Screen U Benzodiazepines Scrn Urine Cocaine Screen U Marijuana (THC) Screen COVID-19 (MIMI) COVID-19 Clin Com Blood Type Antibody Screen Crossmatch Imaging Radiologist's Impressions: Impressions Chest X-Ray 04/01/21 17:44 IMPRESSION: Sclerotic lesion in the left humeral head of uncertain etiology. This was not definitively seen on the prior study but shoulders not included in its entirety on the prior chest x-ray. Clinical correlation recommended. Dedicated shoulder films could be obtained if needed. Renal Ultrasound 04/01/21 19:52 IMPRESSION: 1. Moderate to severe right-sided hydronephrosis and severe left-sided hydronephrosis. 2. No renal calculi identified. 3. The bladder is decompressed around a Zheng catheter.
[2021-04-02] MEDS: Calcium Gluconate/NaCl,Iso-Osm 1 GM/50 ML PLAST..BAG IV (01:44)
[2021-04-02 03:50] LABS: Blood Urea Nitrogen 164 mg/dL (9-16); Magnesium 1.7 mg/dL (1.6-2.6)
[2021-04-02 05:36] LABS: MANUAL DIFF FLAG NO
[2021-04-02] MEDS: Pantoprazole Sodium 40 MG/10 ML VIAL IVPUSH (05:41)
[2021-04-02 06:13] LABS: Ferritin 612 ng/mL (20-250)
[2021-04-02 06:26] LABS: Alanine Aminotransferase < 6 U/L (0-40); Albumin Level 3.5 g/dL (3.5-5.0); Alkaline Phosphatase 77 U/L (39-117); Anion Gap 25 (12-20); Aspartate Amino Transferase 3 U/L (5-37); Bilirubin Total 1.4 mg/dL (0.0-1.0); Blood Urea Nitrogen 154 mg/dL (9-16); Calcium 4.9 mg/dL (8.4-10.2); Carbon Dioxide 8 mmol/L (22-29); Chloride 101 mmol/L (96-108); Creatinine Clr Calc Pharmacy 5.3; Estimated Glomerular Filt Rate 4; Glucose Random 115 mg/dL (60-115); Potassium 3.3 mmol/L (3.3-5.1); Sodium 131 mmol/L (135-145); Total Protein 5.5 g/dL (6.5-8.0)
[2021-04-02] MEDS: Sodium Bicarbonate 8.4% 150 MEQ in Dextrose 5 % 850 ML 125 MEQ IV ×3 (07:06→23:22)
[2021-04-02] MEDS: Calcium Gluconate/NaCl,Iso-Osm 2 GM/100 ML PLAST..BAG IV (07:21)
[2021-04-02 07:32] LABS: Basophils Percent Auto 0.4 % (0-2); Eosinophils Percent Auto 0.5 % (0-4); Hemoglobin 7.5 g/dl (14.0-18.0); Imm Gran Abs Auto 0.08 X10*3/uL (0.00-0.03); Imm Gran Pct Auto 0.9 % (0.0-0.4); Lymphocytes Absolute Auto 0.7 X10*3/uL (1.2-4.9); Lymphocytes Percent Auto 8.6 % (20-40); Mean Corpuscular HGB Conc 36.1 g/dl (31.0-36.0); Mean Corpuscular Hemoglobin 29.1 pg (27.0-33.0); Mean Corpuscular Volume 80.6 fL (80-98); Mean Platelet Volume 10.6 fL (9.4-12.4); Monocytes Absolute Auto 0.8 X10*3/uL (0.1-1.2); Monocytes Percent Auto 9.6 % (2-11); Neutrophils Absolute Auto 6.8 X10*3/uL (2.0-8.3); Platelet Count 232 X10*3/uL (160-400); Red Blood Count 2.58 X10*6/uL (4.60-5.80); Red Cell Distribution Width 17.3 % (11.0-16.0); White Blood Count 8.5 X10*3/uL (4.8-10.8)
[2021-04-02 07:35] LABS: Hematocrit 20.8 % (42-52)
[2021-04-02] MEDS: Melatonin 3 MG TABLET 6 MG PO (23:22)
[2021-04-03] VITALS (12 sets, daily range): BP systolic 103–137; BP diastolic 55–75; PULSE 60–75; RESP 18–20; TEMP 36.4–37.2; O2SAT 97–100
[2021-04-03] MEDS: Sodium Bicarbonate 8.4% 150 MEQ in Dextrose 5 % 850 ML 125 MEQ IV (06:12)
[2021-04-03] MEDS: Pantoprazole Sodium 40 MG/10 ML VIAL IVPUSH (06:20)
[2021-04-03 06:38] LABS: MANUAL DIFF FLAG NO
[2021-04-03 07:08] LABS: Basophils Percent Auto 0.4 % (0-2); Eosinophils Absolute Auto 0.1 X10*3/uL (0.0-0.4); Imm Gran Abs Auto 0.06 X10*3/uL (0.00-0.03); Imm Gran Pct Auto 0.8 % (0.0-0.4); Lymphocytes Absolute Auto 0.6 X10*3/uL (1.2-4.9); Lymphocytes Percent Auto 8.6 % (20-40); Mean Corpuscular HGB Conc 36.3 g/dl (31.0-36.0); Mean Corpuscular Hemoglobin 27.9 pg (27.0-33.0); Mean Corpuscular Volume 76.8 fL (80-98); Mean Platelet Volume 10.3 fL (9.4-12.4); Monocytes Absolute Auto 0.7 X10*3/uL (0.1-1.2); Monocytes Percent Auto 9.7 % (2-11); Neutrophils Absolute Auto 5.8 X10*3/uL (2.0-8.3); Neutrophils Percent Auto 79.5 % (45-73); Platelet Count 222 X10*3/uL (160-400); Red Blood Count 2.33 X10*6/uL (4.60-5.80); Red Cell Distribution Width 14.9 % (11.0-16.0); White Blood Count 7.3 X10*3/uL (4.8-10.8)
[2021-04-03 07:44] LABS: Hemoglobin 6.5 g/dl (14.0-18.0)
[2021-04-03 07:45] LABS: Hematocrit 17.9 % (42-52)
[2021-04-03 08:29] LABS: Alanine Aminotransferase < 6 U/L (0-40); Albumin Level 3.1 g/dL (3.5-5.0); Alkaline Phosphatase 66 U/L (39-117); Anion Gap 24 (12-20); Aspartate Amino Transferase 3 U/L (5-37); Bilirubin Direct 0.2 mg/dL (0.0-0.5); Bilirubin Total 0.7 mg/dL (0.0-1.0); Calcium 4.5 mg/dL (8.4-10.2); Carbon Dioxide 20 mmol/L (22-29); Chloride 94 mmol/L (96-108); Creatinine Clr Calc Pharmacy 5.5; Estimated Glomerular Filt Rate 4; Glucose Random 130 mg/dL (60-115); Potassium 2.6 mmol/L (3.3-5.1); Sodium 135 mmol/L (135-145); Total Protein 4.7 g/dL (6.5-8.0)
--- NOTE | 2021-04-03 08:58 | MHC.CM.PN ---
CM met with Patient at bedside and addressed IMM with him, providing him with the original and placing a copy on the chart. Patient lives alone in a trailer and he is functionally independent (no prior services nor DME)and his goal is to return home. Patient has indicated that his Sister/Liz is his HCP. CM has initiated and will follow for dc planning. PCP is through [facility]
[2021-04-03 09:07] LABS: PSA,Total (Free>4and<10) 23.38 ng/mL (0.00-4.00)
--- NOTE | 2021-04-03 09:51 | P.PNIM_ITS ---
Subjective Subjective Date of Service: 04/03/21 Interval History: still feeling cloudy Cardiovascular Cardiovascular: Reports no additional cardiovascular complaints Respiratory Respiratory: Reports no additional respiratory complaints Physical Exam Vital Signs: Vital Signs: Last Vital Signs Temp 98.2 F 04/03/21 09:30 Pulse 62 04/03/21 09:30 Resp 18 04/03/21 09:30 BP 124/62 04/03/21 09:30 Pulse Ox 99 04/03/21 09:08 Body Mass Index 26.8 General: lethargic O X 3, no acute distress Resp: CTA bilateral CVS: S1,S2,RRR GI: soft, non tender, non distended Neuro: motor grossly intact Psych: appropriate affect Objective Data Active Medications Calcium Carbonate (Calcium Carbonate 750 Mg Tab.Chew) 750 mg PO Q6H FREIDA Lactated Ringer's (Lr) 1,000 mls @ 100 mls/hr IVCONT .Q10H FREIDA Melatonin (Melatonin 3 Mg Tablet) 6 mg PO BEDTIME PRN PRN Reason: Insomnia Last Admin: 04/02/21 23:22 Dose: 6 mg Documented by: DARNELL Pantoprazole Sodium (Pantoprazole Sodium 40 Mg/10 Ml Vial) 40 mg IVPUSH DA LOLA@0630 [facility] Last Admin: 04/03/21 06:20 Dose: 40 mg Documented by: AUSTYN Pharmacy Consult (Consult Rx Perform Med Rec) 1 each MISCELLANE ONCE PRN PRN Reason: Consult order Sodium Chloride (Sodium Chloride 0.65 % Nasal 44 Ml Sprbtl) 1 spray NOSTRIL-B Q1H PRN PRN Reason: Congestion Labs CBC & Chem 7: 04/03/21 05:32 04/03/21 05:32 Labs: Laboratory Results - last 24 hr 04/01/21 04/01/21 04/03/21 18:03 18:07 05:32 MCV 76.8 L MCH 27.9 MCHC 36.3 H RDW 14.9 Plt Count 222 MPV 10.3 Immature Gran % (Auto) 0.8 H Neut % (Auto) 79.5 H Lymph % (Auto) 8.6 L [place] % (Auto) 9.7 Eos % (Auto) 1.0 Baso % (Auto) 0.4 Lymph # (Auto) 0.6 L [place] # (Auto) 0.7 Eos # (Auto) 0.1 Baso # (Auto) 0.0 Abs Immat Gran (auto) 0.06 H Absolute Neuts (auto) 5.8 Absolute Nucleated RBC 0.000 Nucleated RBC % (auto) 0.0 Smear Path Review SEE NOTE Anion Gap Estim Creat Clear Calc Estimated GFR Random Glucose Calcium Total Bilirubin Direct Bilirubin AST ALT Alkaline Phosphatase Total Protein Albumin Total PSA Blood Type A Positive Antibody Screen NEGATIVE Crossmatch See Detail 04/03/21 05:32 MCV MCH MCHC RDW Plt Count MPV Immature Gran % (Auto) Neut % (Auto) Lymph % (Auto) [place] % (Auto) Eos % (Auto) Baso % (Auto) Lymph # (Auto) [place] # (Auto) Eos # (Auto) Baso # (Auto) Abs Immat Gran (auto) Absolute Neuts (auto) Absolute Nucleated RBC Nucleated RBC % (auto) Smear Path Review Anion Gap 24 H Estim Creat Clear Calc 5.5 Estimated GFR 4 Random Glucose 130 H Calcium 4.5 L* D Total Bilirubin 0.7 Direct Bilirubin 0.2 AST 3 L ALT < 6 Alkaline Phosphatase 66 Total Protein 4.7 L Albumin 3.1 L Total PSA 23.38 H Blood Type Antibody Screen Crossmatch Microbiology Microbiology Results: Microbiology 04/01/21 20:05 Urine Culture - Preliminary Urine Catheterized - Victor Catheter No growth to date. Assessment and Plan (1) Acute kidney injury: Status: Acute Assessment and Plan: 61M presented with ams, found to have MEGHAN on CKD V, anemia, hypocalcemia, metabolic acidosis, was admitted to ICU, victor placed, given IV fluids, downgraded to medical floor 04/02/21 metabolic encephalopathy due to MEGHAN on CKD V complicated by metabolic acidosis obstructive victor placed acidosis resolved, dc bicarb drip, changed to LR montior nephro eval anemia likely due to kidney disease hgb 6.5, will transfuse 1 unit prbc hypocalcemia with sclerotic bone lesions seen on CT could be long standing secondary hyperparathyroid from CKD nephro eval calcium supplement some concern for metastatic prostate cancer with elevated PSA 22, follow up hypokalemia replace and monitor VTE prphylaxis - mechanical due to singificant anemia Quality Stroke Does the patient have a stroke diagnosis?: No VTE Prior VTE?: No VTE Risk Level:: Medical - moderate - high VTE Device Contraindication: N/A - Device Ordered VTE Drug Contraindication: N/A - Med Ordered
[2021-04-03] MEDS: Potassium Chloride ER 20 MEQ TAB.ER.PRT 40 MEQ PO (12:51)
[2021-04-03] MEDS: Calcium Carbonate 750 MG TAB.CHEW PO ×3 (12:52→20:34)
[2021-04-03] MEDS: Lactated Ringers 1,000 ML 100 ML IVCONT ×2 (12:52→20:39)
--- NOTE | 2021-04-03 13:04 | P.CNUR_ITS ---
History of Present Illness Consult details Consult date: 04/02/21 Narrative: Darwin is a 61-year-old male. Seen in the ICU for question of urinary obstruction Background of significant EtOH use Previous admission for acute renal insult with retention in 2019 CT imaging with chronic bilateral hydronephrosis and renal cortical thinning Creatinine admission [address] which is currently draining freely Urinary osmolality has been ordered by Nephrology Review of Systems Constitutional: Constitutional: Denies chills and Denies fever(s) Cardiovascular: Cardiovascular: Reports no additional cardiovascular complaint s and Denies syncope Respiratory: Respiratory: Denies cough Gastrointestinal: Gastrointestinal: Denies abdominal pain and Denies heartburn Genitourinary: Genitourinary: Reports as per HPI and Denies change in libido Neurologic: Denies syncope Psychiatric: Psychiatric: Denies change in libido Endocrine: Endocrine: Denies change in libido [facility] Social History Social History Household Members: None Housing: Other Housing Other:: mobile home Do you presently have visiting nurse or other home services: No Patient Tobacco Use Status: Former Tobacco user Tobacco use type: Cigarette Smoked in Last 30 Days: No e-Cigarette/Vaping Use: Former Use Use of substances other than those prescribed or required for medical reasons: No Currently Displaying Signs/Symptoms of Drug Intoxication Withdrawal: No Have you been hit, kicked, punched, or otherwise hurt by someone within the past year? If so, by whom?: No Do you feel safe in your current relationship?: No Current Relationship Is there a partner from a previous relationship who is making you feel unsafe now?: No Are you made to feel afraid or neglected: No Advance Directives: No Advance Directives Information Provided: Yes Do you have thoughts of harming others: None Do you have a plan to hurt others: No Plan Recently lost weight without trying: Yes How much weight loss: 14-23 pounds Nutrition Risks: Acute nausea or vomiting x1 week and Poor intake 0-25% >4 days service: No Current occupational status: disabled Meds Allergies Allergy/AdvReac Type Severity Reaction Status Date / Time No Known Allergies Allergy Unverified 04/17/20 18:44 [No Known Allergies*] Active Medications: Current Medications Generic Name Dose Route Start Last Admin Trade Name Freq PRN Reason Stop Dose Admin Calcium Carbonate 750 mg 04/03/21 09:15 04/03/21 12:52 Calcium Carbonate 750 Mg Tab.Chew PO 750 mg Q6H FREIDA Administration Lactated Ringer's 1,000 mls @ 100 mls/hr 04/03/21 09:15 04/03/21 12:52 Lr IVCONT 100 mls/hr .Q10H FREIDA Administration Melatonin 6 mg 04/02/21 22:18 04/02/21 23:22 Melatonin 3 Mg Tablet PO 6 mg BEDTIME PRN Administration Insomnia Pharmacy Consult 1 each 04/01/21 21:54 Consult Rx Perform Med Rec MISCELLANE ONCE PRN Consult order Sodium Chloride 1 spray 04/03/21 05:58 Sodium Chloride 0.65 % Nasal 44 Ml Sprbtl NOSTRIL-B Q1H PRN Congestion Home Medications Medication Instructions Recorded Confirmed Last Taken Type ccyxlgbi-qtk-xdobb acid 300 1 tab PO DAILY 04/01/21 04/01/21 03/31/21 History mcg-lycopene 600 mcg-lutein 300 mcg tablet (Centrum Silver Men) Physical Exam Vital Signs: Vital Signs: Last Vital Signs Temp 97.8 F 04/03/21 12:30 Pulse 60 04/03/21 12:30 Resp 18 04/03/21 12:30 BP 119/66 04/03/21 12:30 Pulse Ox 98 04/03/21 12:00 Body Mass Index 26.8 Const: General: cooperative, healthy appearing, comfortable and no acute distress Orientation/consciousness: patient oriented x3 HENMT: Face and sinus: Yes normal facial exam Mouth: moist mucous membranes Neck: Neck: Yes normal visual inspection, Yes full ROM and Yes trachea midline Chest: Chest palpation & inspection: normal inspection of the chest Resp: Effort & Inspection: normal respiratory effort, able to speak in complete sentences and no respiratory distress GI: Inspection: Yes normal to inspection Back/Spine/Pelvis: Cervical Spine: normal cervical lordosis Thoracic/Lumbar Spine: thoracic and lumbar spine normal to inspection Skin: General skin exam: no rashes or lesions noted Neuro: General: patient oriented x3, gait normal, tone normal and moves all extremities Extrem: General: Yes normal to inspection and Yes capillary refill normal Results Labs Result diagrams: 04/03/21 05:32 04/03/21 05:32 Labs: Abnormal lab results 04/01/21 04/03/21 04/03/21 Range/Units 18:07 05:32 05:32 RBC 2.33 L (4.60-5.80) X10*6/uL Hgb 6.5 L* (14.0-18.0) g/dl Hct 17.9 L* (42-52) % MCV 76.8 L (80-98) fL MCHC 36.3 H (31.0-36.0) g/dl Immature Gran % (Auto) 0.8 H (0.0-0.4) % Neut % (Auto) 79.5 H (45-73) % Lymph % (Auto) 8.6 L (20-40) % Lymph # (Auto) 0.6 L (1.2-4.9) X10*3/uL Abs Immat Gran (auto) 0.06 H (0.00-0.03) X10*3/uL Potassium 2.6 L D (3.3-5.1) mmol/L Chloride 94 L (96-108) mmol/L Carbon Dioxide 20 L (22-29) mmol/L Anion Gap 24 H (12-20) BUN 146 H* (9-16) mg/dL Creatinine 11.86 H* (0.5-1.4) mg/dL Random Glucose 130 H (60-115) mg/dL Calcium 4.5 L* D (8.4-10.2) mg/dL AST 3 L (5-37) U/L Total Protein 4.7 L (6.5-8.0) g/dL Albumin 3.1 L (3.5-5.0) g/dL Total PSA 23.38 H (0.00-4.00) ng/mL Crossmatch See Detail Short CBC 04/03/21 Range/Units 05:32 WBC 7.3 (4.8-10.8) X10*3/uL Hgb 6.5 L* (14.0-18.0) g/dl Hct 17.9 L* (42-52) % Plt Count 222 (160-400) X10*3/uL BMP 04/03/21 05:32 Sodium 135 Potassium 2.6 L D Chloride 94 L Carbon Dioxide 20 L BUN 146 H* Creatinine 11.86 H* Calcium 4.5 L* D Liver Function 04/03/21 Range/Units 05:32 Total Bilirubin 0.7 (0.0-1.0) mg/dL Direct Bilirubin 0.2 (0.0-0.5) mg/dL AST 3 L (5-37) U/L ALT < 6 (0-40) U/L Alkaline Phosphatase 66 (39-117) U/L Albumin 3.1 L (3.5-5.0) g/dL Urine 04/01/21 Range/Units 19:52 Urine Color YELLOW Urine Appearance CLEAR Urine pH 6.0 (5.0-8.0) Ur Specific [place] 1.010 (1.005-1.025) Urine Protein 1+ H (NEG-TRACE) MG/DL Urine Glucose (UA) 100 H (NEG) MG/DL All other labs normal. Assessment and Plan (1) Bilateral hydronephrosis: Status: Acute (2) Acute kidney injury: Status: Acute Follow Nephrology recommendations Zheng catheter should remain as long as creatinine declining Elevated PSA difficult to interpret in light of retention and renal injury Procedures Date of Service Date of Service: 04/02/21
--- NOTE | 2021-04-03 13:32 | CONS_ITS ---
DATE OF SERVICE: 04/02/2021 REASON FOR CONSULTATION: I was called to see this patient to assist in the management of acute kidney injury and severe acidosis. HISTORY OF PRESENT ILLNESS: To summarize, Darwin is a 61-year-old man with a history of chronic hydronephrosis. He has had acute kidney injury in the past with delayed recovery. The baseline creatinine is probably around 3 to 4 mg/dL. He was supposed to follow up with Urology, but he has not done so. He comes into the hospital because he was feeling weak and some shortness of breath. At the time of admission, he was found to have a creatinine of 9 and he had severe acidosis with a bicarb of 6 and severe anemia with a hemoglobin of 5.9. CAT scan showed hydronephrosis which was worse than before. He has chronic hydronephrosis. Zheng has been inserted. He is currently nonoliguric. He was started on IV fluids and acidosis is currently being treated with IV bicarbonate. This consultation is requested for management of renal failure. PAST MEDICAL HISTORY: Ongoing medical problems include history of chronic kidney disease, obstructive uropathy. PAST SURGICAL HISTORY: Include right hip replacement. FAMILY HISTORY: Not significant for this admission. SOCIAL HISTORY: Lives alone. smoking 50 pack years. Apparently quits 5 years ago. REVIEW OF SYSTEMS: He had some difficulty urinating. He has shortness of breathe. No chest pain, nausea, or vomiting. No abdominal pain, diarrhea, or constipation. CURRENT MEDICATIONS: All his current medications were reviewed. PHYSICAL EXAMINATION: GENERAL: On examination, Darwin is a 61-year-old man who is awake, comfortable, not in any distress. NECK: Supple, no JVD. HEENT: Mucosa is dry. LUNGS: Air entry equal. No rales. HEART: S1 and S2 heard. No gallop. ABDOMEN: Soft, nontender. EXTREMITIES: No edema. No rash. No clubbing. IMAGING: Showed severe right hydronephrosis . Zheng was in place. Blood pressure 130/60, pulse 66, afebrile. LABORATORY DATA: Hemoglobin this morning was 7.5, platelets 232. Sodium 131, potassium 3.3, BUN 154, creatinine , bicarb of 8, anion gap 25, phosphorus 12, calcium 4.9. Urine showed 1+ protein with glycosuria and 2+ blood by dipstick. IMPRESSION: 1. Acute kidney injury superimposed on chronic kidney disease. 2. Severe metabolic acidosis. 3. Hypokalemia and hyperphosphatemia due to secondary hyperparathyroidism. 4. Severe anemia. Darwin has advanced renal failure most like due to underlying obstructive uropathy. He probably has a component of acute kidney injury superimposed on advanced kidney disease. My recommendation at this point would be to keep the Zheng catheter in, continue with IV hydration with IV fluids containing bicarbonate. Replace potassium as needed. Agree with calcium supplementation. He will need phosphorus binders with food as well. We will follow the intact PTH and start him on vitamin D analogs as necessary. Today, there is no absolute indication for dialysis yet. If the renal function does not improve over the next 24 to 48 hours, we will have to reassess him for initiating renal replacement therapy. However, if the acidosis does not resolve, he may require dialysis emergently. At this point, the acidosis seems to be responding to the bicarb supplementation; therefore, we will follow him closely with the team. Young Rodarte MD BPA/MODL / [id number]
--- NOTE | 2021-04-03 14:14 | PM.PNNEP ---
Subjective Subjective Date of Service: 04/03/21 Interval history: seen and examined denies CP, SOB, N/V/D events reviewed Physical Exam Vital Signs: Vital Signs: Last Vital Signs Temp 97.8 F 04/03/21 12:30 Pulse 60 04/03/21 12:30 Resp 18 04/03/21 12:30 BP 119/66 04/03/21 12:30 Pulse Ox 98 04/03/21 12:00 Body Mass Index 26.8 Const: General: comfortable and no acute distress HENMT: Head: Yes normocephalic and Yes atraumatic Neck: Neck: Yes supple Resp: Auscultation: clear to auscultation bilaterally Cardio: Heart sounds: S1 normal heart sound present and S2 normal heart sound present GI: Palpation (GI): Soft to palpation and nontender Extrem: General: No edema Objective Data Labs CBC & Chem 7: 04/03/21 05:32 04/03/21 05:32 Labs: Laboratory Results - last 24 hr 04/01/21 04/03/21 04/03/21 18:07 05:32 05:32 WBC 7.3 RBC 2.33 L Hgb 6.5 L* Hct 17.9 L* MCV 76.8 L MCH 27.9 MCHC 36.3 H RDW 14.9 Plt Count 222 MPV 10.3 Immature Gran % (Auto) 0.8 H Neut % (Auto) 79.5 H Lymph % (Auto) 8.6 L [place] % (Auto) 9.7 Eos % (Auto) 1.0 Baso % (Auto) 0.4 Lymph # (Auto) 0.6 L [place] # (Auto) 0.7 Eos # (Auto) 0.1 Baso # (Auto) 0.0 Abs Immat Gran (auto) 0.06 H Absolute Neuts (auto) 5.8 Absolute Nucleated RBC 0.000 Nucleated RBC % (auto) 0.0 Sodium 135 Potassium 2.6 L D Chloride 94 L Carbon Dioxide 20 L Anion Gap 24 H BUN 146 H* Creatinine 11.86 H* Estim Creat Clear Calc 5.5 Estimated GFR 4 Random Glucose 130 H Calcium 4.5 L* D Total Bilirubin 0.7 Direct Bilirubin 0.2 AST 3 L ALT < 6 Alkaline Phosphatase 66 Total Protein 4.7 L Albumin 3.1 L Total PSA 23.38 H Blood Type A Positive Antibody Screen NEGATIVE Crossmatch See Detail Microbiology Microbiology Results: Microbiology 04/01/21 20:05 Urine Catheterized - Zheng Catheter Urine Culture - Final No growth. Procedures Date of Service Date of Service: 04/03/21 Assessment & Plan Assessment and plan (1) Acute kidney injury: Status: Acute (2) Bilateral hydronephrosis: Status: Acute (3) Metabolic acidosis: Status: Acute (4) Hypokalemia: Status: Acute (5) Anemia: Status: Acute (6) CKD (chronic kidney disease) stage 5, GFR less than 15 ml/min: Status: Acute Assessment and Plan: Scr better MEGHAN due to obstructive uropathy metabolic acidosis due to poor renal mass acid excretion bilateral hydronephrosis known advanced CKD due to chronic obstructive uropathy unclear whether he will recover enough kidney function to avoid renal replacement therapy anemia in the setting of advanced CKD will need NIKKO but will have first to check iron profile hypocalcemia due to bone mineral disease will need to follow iPTH as he will most likely need vitamin d analogs REC Zheng careful potassium replacement balanced crystalloid blood transfusion iron profile iPTH no indication for PATIENT REGISTRATION CLERK today reassess need for PATIENT REGISTRATION CLERK follow kidney function and electrolytes Time Spent With Patient Time: Total time spent is greater than 50% in coordination of care (as documented) at patient's floor/unit and/or counseling patient: Progress Note: Quality Stroke Does the patient have a stroke diagnosis?: No
[2021-04-03 15:19] LABS: Iron 72 mcg/dL (45-160); Percent Iron Saturation 47 % (15-50); Total Iron Binding Capacity 152 mcg/dL (228-428); Unsaturated Iron Binding 80 ug/dL
[2021-04-03 20:01] LABS: PTHI 282 pg/mL (14-64)
[2021-04-03] MEDS: Melatonin 3 MG TABLET 6 MG PO (20:34)
[2021-04-04 03:14] VITALS: BP 133/67; PULSE 66; RESP 18; TEMP 36.9; O2SAT 96
[2021-04-04] MEDS: Calcium Carbonate 750 MG TAB.CHEW PO ×4 (03:21→20:53)
[2021-04-04] MEDS: Lactated Ringers 1,000 ML 100 ML IVCONT (05:59)
[2021-04-04 06:57] LABS: Hematocrit 22.2 % (42-52); Hemoglobin 7.8 g/dl (14.0-18.0); Mean Corpuscular HGB Conc 35.1 g/dl (31.0-36.0); Mean Corpuscular Hemoglobin 28.6 pg (27.0-33.0); Mean Corpuscular Volume 81.3 fL (80-98); Mean Platelet Volume 10.9 fL (9.4-12.4); Platelet Count 205 X10*3/uL (160-400); Red Blood Count 2.73 X10*6/uL (4.60-5.80); Red Cell Distribution Width 14.6 % (11.0-16.0); White Blood Count 8.7 X10*3/uL (4.8-10.8)
--- NOTE | 2021-04-04 07:22 | PM.PNNEP ---
Subjective Subjective Date of Service: 04/04/21 Interval history: seen and examined denies CP, SOB, N/V/D events reviewed he is awake and alert eating and drinking no asterxisis Physical Exam Vital Signs: Vital Signs: Last Vital Signs Temp 98.5 F 04/04/21 03:14 Pulse 66 04/04/21 03:14 Resp 18 04/04/21 03:14 BP 133/67 04/04/21 03:14 Pulse Ox 96 04/04/21 03:14 Body Mass Index 26.8 Const: General: cooperative, healthy appearing, comfortable and no acute distress Orientation/consciousness: oriented to person, oriented to place and patient oriented x3 Limitations: no limitations HENMT: Head: Yes normal to inspection, Yes normocephalic and Yes atraumatic Ears: external ears normal General nose exam: Normal external nose present Face and sinus: Yes normal facial exam Mouth: Normal oral and palatal mucosa present and moist mucous membranes Throat: Yes posterior oropharynx normal Eyes: General: appearance normal, both eyes and all related structures Pupils: Equal, round and reactive pupils present Neck: Neck: Yes normal visual inspection, Yes full ROM, Yes no lymphadenopathy, Yes trachea midline and Yes supple Chest: Chest palpation & inspection: normal inspection of the chest and normal palpation of entire chest wall Resp: Effort & Inspection: normal respiratory effort, able to speak in complete sentences and no respiratory distress Auscultation: clear to auscultation bilaterally Cardio: Rate: regular rate Rhythm: regular rhythm Heart sounds: S1 normal heart sound present, S2 normal heart sound present and no murmurs GI: Inspection: Yes normal to inspection Palpation (GI): Soft to palpation, nontender and no guarding Auscultation: normal bowel sounds Rectal Exam - Male: Yes visual inspection normal, Yes normal sphincter tone, Yes prostate abnormal (Large prostate versus rectal mass) and Yes heme negative stool (Brown stool) : General: Yes no CVA tenderness Back/Spine/Pelvis: Back: no CVA tenderness Cervical Spine: normal cervical lordosis Thoracic/Lumbar Spine: thoracic and lumbar spine normal to inspection Skin: General skin exam: no rashes or lesions noted Neuro: General: oriented to person, oriented to place, patient oriented x3, gait normal, tone normal and moves all extremities Cranial nerves: Yes CN's II-XII intact bilaterally and Yes Equal, round and reactive pupils present Cognition (Neuro): normal cognition Motor exam (neuro): 5/5 motor strength present throughout Extrem: General: Yes normal to inspection, Yes capillary refill normal and No edema Psych: Appearance: grossly normal Speech and movement: Normal speech and movement present Affect: normal affect Attitude: cooperative Thought process: Normal thought process present Thought content: Normal thought content present Objective Data Labs CBC & Chem 7: 04/04/21 05:10 04/03/21 05:32 Labs: Laboratory Results - last 24 hr 04/01/21 04/01/21 04/03/21 18:07 19:52 05:32 WBC 7.3 RBC 2.33 L Hgb 6.5 L* Hct 17.9 L* MCV 76.8 L MCH 27.9 MCHC 36.3 H RDW 14.9 Plt Count 222 MPV 10.3 Immature Gran % (Auto) 0.8 H Neut % (Auto) 79.5 H Lymph % (Auto) 8.6 L [place] % (Auto) 9.7 Eos % (Auto) 1.0 Baso % (Auto) 0.4 Lymph # (Auto) 0.6 L [place] # (Auto) 0.7 Eos # (Auto) 0.1 Baso # (Auto) 0.0 Abs Immat Gran (auto) 0.06 H Absolute Neuts (auto) 5.8 Absolute Nucleated RBC 0.000 Nucleated RBC % (auto) 0.0 Sodium Potassium Chloride Carbon Dioxide Anion Gap BUN Creatinine Estim Creat Clear Calc Estimated GFR Random Glucose Calcium Iron TIBC % Saturation Unsat Iron Binding Total Bilirubin Direct Bilirubin AST ALT Alkaline Phosphatase Total Protein Albumin Total PSA PTH Intact 282 H Blood Type A Positive Antibody Screen NEGATIVE Crossmatch See Detail 04/03/21 04/03/21 04/04/21 05:32 14:49 05:10 WBC 8.7 RBC 2.73 L Hgb 7.8 L Hct 22.2 L D MCV 81.3 MCH 28.6 MCHC 35.1 RDW 14.6 Plt Count 205 MPV 10.9 Immature Gran % (Auto) Neut % (Auto) Lymph % (Auto) [place] % (Auto) Eos % (Auto) Baso % (Auto) Lymph # (Auto) [place] # (Auto) Eos # (Auto) Baso # (Auto) Abs Immat Gran (auto) Absolute Neuts (auto) Absolute Nucleated RBC 0.000 Nucleated RBC % (auto) 0.0 Sodium 135 Potassium 2.6 L D Chloride 94 L Carbon Dioxide 20 L Anion Gap 24 H BUN 146 H* Creatinine 11.86 H* Estim Creat Clear Calc 5.5 Estimated GFR 4 Random Glucose 130 H Calcium 4.5 L* D Iron 72 TIBC 152 L % Saturation 47 Unsat Iron Binding 80 Total Bilirubin 0.7 Direct Bilirubin 0.2 AST 3 L ALT < 6 Alkaline Phosphatase 66 Total Protein 4.7 L Albumin 3.1 L Total PSA 23.38 H PTH Intact Blood Type Antibody Screen Crossmatch Microbiology Microbiology Results: Microbiology 04/01/21 20:05 Urine Catheterized - Zheng Catheter Urine Culture - Final No growth. Procedures Date of Service Date of Service: 04/04/21 Assessment & Plan Assessment and plan (1) Acute kidney injury: Status: Acute Assessment and Plan: creat slowly decreasing good UO (2) Bilateral hydronephrosis: Status: Acute Assessment and Plan: although he may have outlet obstruction, it is possible prostate ca may be obstructing trigone will discuss with urology may need bilateral perc nephrostomies (3) Metabolic acidosis: Status: Acute (4) Hypokalemia: Status: Acute Assessment and Plan: replace IV and PO (5) Anemia: Status: Acute (6) CKD (chronic kidney disease) stage 5, GFR less than 15 ml/min: Status: Acute Assessment and Plan: Scr better MEGHAN due to obstructive uropathy metabolic acidosis due to poor renal mass acid excretion bilateral hydronephrosis known advanced CKD due to chronic obstructive uropathy unclear whether he will recover enough kidney function to avoid renal replacement therapy anemia in the setting of advanced CKD will need NIKKO but will have first to check iron profile hypocalcemia due to bone mineral disease will need to follow iPTH as he will most likely need vitamin d analogs REC Zheng careful potassium replacement balanced crystalloid blood transfusion iron profile iPTH no indication for INSTRUMENT LENS GRINDER APPRENTICE today reassess need for INSTRUMENT LENS GRINDER APPRENTICE follow kidney function and electrolytes Time Spent With Patient Time: Total time spent is greater than 50% in coordination of care (as documented) at patient's floor/unit and/or counseling patient: Progress Note: Quality Stroke Does the patient have a stroke diagnosis?: No
[2021-04-04 07:44] LABS: Alanine Aminotransferase < 6 U/L (0-40); Albumin Level 3.1 g/dL (3.5-5.0); Alkaline Phosphatase 69 U/L (39-117); Anion Gap 22 (12-20); Aspartate Amino Transferase 3 U/L (5-37); Bilirubin Direct 0.3 mg/dL (0.0-0.5); Bilirubin Total 0.9 mg/dL (0.0-1.0); Blood Urea Nitrogen 134 mg/dL (9-16); Calcium 4.4 mg/dL (8.4-10.2); Carbon Dioxide 22 mmol/L (22-29); Chloride 95 mmol/L (96-108); Creatinine Clr Calc Pharmacy 5.9; Estimated Glomerular Filt Rate 5; Glucose Fasting 103 mg/dL (60-99); Potassium 2.9 mmol/L (3.3-5.1); Sodium 136 mmol/L (135-145)
[2021-04-04 08:00] VITALS: BP 144/73; PULSE 62; RESP 18; TEMP 37; O2SAT 98
[2021-04-04] MEDS: Potassium Chloride ER 20 MEQ TAB.ER.PRT PO ×2 (08:31→20:35)
--- NOTE | 2021-04-04 11:09 | HO.PM.IMPN ---
Subjective Subjective Date of Service: 04/04/21 Interval History: no new complaints Cardiovascular Cardiovascular: Reports no additional cardiovascular complaints Respiratory Respiratory: Reports no additional respiratory complaints Physical Exam Vital Signs: Vital Signs: Last Vital Signs Temp 98.6 F 04/04/21 08:00 Pulse 62 04/04/21 08:00 Resp 18 04/04/21 08:00 BP 144/73 H 04/04/21 08:00 Pulse Ox 98 04/04/21 08:00 Body Mass Index 26.8 General: lethargic O X 3, no acute distress Resp:? CTA bilateral CVS: S1,S2,RRR GI: soft, non tender, non distended Neuro:? motor grossly intact Psych: appropriate affect Objective Data Active Medications Calcium Carbonate (Calcium Carbonate 750 Mg Tab.Chew) 750 mg PO Q6H [facility] Last Admin: 04/04/21 08:30 Dose: 750 mg Documented by: LEV Potassium Chloride/Sodium Chloride () 20 meq in 1,000 mls @ 150 mls/hr IVCONT .Q6H40M [facility] Last Admin: 04/04/21 09:20 Dose: 150 mls/hr Documented by: LEV Melatonin (Melatonin 3 Mg Tablet) 6 mg PO BEDTIME PRN PRN Reason: Insomnia Last Admin: 04/03/21 20:34 Dose: 6 mg Documented by: ELMER Pharmacy Consult (Consult Rx Perform Med Rec) 1 each MISCELLANE ONCE PRN PRN Reason: Consult order Potassium Chloride (Potassium Chloride Er 20 Meq Tab.Er.Prt) 20 meq PO BID [facility] Last Admin: 04/04/21 08:31 Dose: 20 meq Documented by: LEV Sodium Chloride (Sodium Chloride 0.65 % Nasal 44 Ml Sprbtl) 1 spray NOSTRIL-B Q1H PRN PRN Reason: Congestion Labs CBC & Chem 7: 04/04/21 05:10 04/04/21 05:10 Labs: Laboratory Results - last 24 hr 04/01/21 04/01/21 04/03/21 18:07 19:52 14:49 MCV MCH MCHC RDW Plt Count MPV Absolute Nucleated RBC Nucleated RBC % (auto) Anion Gap Estim Creat Clear Calc Estimated GFR Fasting Glucose Calcium Iron 72 TIBC 152 L % Saturation 47 Unsat Iron Binding 80 Total Bilirubin Direct Bilirubin AST ALT Alkaline Phosphatase Total Protein Albumin PTH Intact 282 H Crossmatch See Detail 04/04/21 04/04/21 05:10 05:10 MCV 81.3 MCH 28.6 MCHC 35.1 RDW 14.6 Plt Count 205 MPV 10.9 Absolute Nucleated RBC 0.000 Nucleated RBC % (auto) 0.0 Anion Gap 22 H Estim Creat Clear Calc 5.9 Estimated GFR 5 Fasting Glucose 103 H Calcium 4.4 L* Iron TIBC % Saturation Unsat Iron Binding Total Bilirubin 0.9 Direct Bilirubin 0.3 AST 3 L ALT < 6 Alkaline Phosphatase 69 Total Protein 5.0 L Albumin 3.1 L PTH Intact Crossmatch Microbiology Microbiology Results: Microbiology 04/01/21 20:05 Urine Culture - Final Urine Catheterized - Victor Catheter No growth. Assessment and Plan (1) Acute kidney injury: Status: Acute Assessment and Plan: 61M presented with ams, found to have MEGHAN on CKD V, anemia, hypocalcemia, metabolic acidosis, was admitted to ICU, victor placed, given IV fluids, downgraded to medical floor 04/02/21 metabolic encephalopathy due to MEGHAN on CKD V complicated by metabolic acidosis obstructive keep victor acidosis resolved monitor nephro following anemia likely due to kidney disease transfused 1 unit prbc on 04/03, hgb improved from 6.5 to 7.8 hypocalcemia with sclerotic bone lesions seen on CT likely due to long standing secondary hyperparathyroid from CKD nephro following calcium supplement should rule out metastatic prostate cancer with elevated PSA 22, follow up outpatient hypokalemia replace and monitor VTE prphylaxis - mechanical due to significant anemia Quality Stroke Does the patient have a stroke diagnosis?: No VTE Prior VTE?: No VTE Risk Level:: Medical - moderate - high VTE Device Contraindication: N/A - Device Ordered VTE Drug Contraindication: N/A - Med Ordered
[2021-04-04 12:00] VITALS: BP 154/65; PULSE 69; RESP 18; TEMP 36.6; O2SAT 95
[2021-04-04 15:24] VITALS: BP 144/73; PULSE 63; RESP 18; TEMP 36.8; O2SAT 98
[2021-04-04 16:04] LABS: Anion Gap 22 (12-20); Blood Urea Nitrogen 131 mg/dL (9-16); Calcium 4.3 mg/dL (8.4-10.2); Carbon Dioxide 20 mmol/L (22-29); Chloride 98 mmol/L (96-108); Creatinine Clr Calc Pharmacy 6.1; Estimated Glomerular Filt Rate 5; Glucose Random 154 mg/dL (60-115); Potassium 3.7 mmol/L (3.3-5.1); Sodium 136 mmol/L (135-145)
[2021-04-04] MEDS: Lactated Ringers 1,000 ML 80 ML IVCONT (18:28)
[2021-04-04 19:16] VITALS: BP 153/75; PULSE 62; RESP 20; TEMP 36.8; O2SAT 98
[2021-04-04] MEDS: Melatonin 3 MG TABLET 6 MG PO (20:53)
[2021-04-04 23:16] VITALS: BP 131/73; PULSE 63; RESP 18; TEMP 36.8; O2SAT 97
[2021-04-05 04:00] VITALS: BP 161/68; PULSE 68; RESP 18; TEMP 36.9; O2SAT 93
[2021-04-05] MEDS: Calcium Carbonate 750 MG TAB.CHEW PO ×4 (04:10→20:25)
[2021-04-05 06:47] LABS: Hematocrit 22.8 % (42-52); Hemoglobin 7.8 g/dl (14.0-18.0); Mean Corpuscular HGB Conc 34.2 g/dl (31.0-36.0); Mean Corpuscular Hemoglobin 28.4 pg (27.0-33.0); Mean Corpuscular Volume 82.9 fL (80-98); Mean Platelet Volume 10.9 fL (9.4-12.4); Platelet Count 205 X10*3/uL (160-400); Red Blood Count 2.75 X10*6/uL (4.60-5.80); Red Cell Distribution Width 14.5 % (11.0-16.0); White Blood Count 8.4 X10*3/uL (4.8-10.8)
[2021-04-05 07:28] LABS: Glucose Fasting 81 mg/dL (60-99)
[2021-04-05 07:38] LABS: Anion Gap 22 (12-20); Carbon Dioxide 19 mmol/L (22-29); Chloride 101 mmol/L (96-108); Sodium 138 mmol/L (135-145)
[2021-04-05 07:56] LABS: Blood Urea Nitrogen 123 mg/dL (9-16); Calcium 4.6 mg/dL (8.4-10.2); Estimated Glomerular Filt Rate 5
[2021-04-05 08:00] VITALS: BP 144/73; PULSE 61; RESP 18; TEMP 36.7; O2SAT 98
--- NOTE | 2021-04-05 08:16 | P.PNNP_ITS ---
Subjective Subjective Date of Service: 04/05/21 Interval history: no new complaints Physical Exam Vital Signs: Vital Signs: Last Vital Signs Temp 98.1 F 04/05/21 08:00 Pulse 61 04/05/21 08:00 Resp 18 04/05/21 08:00 BP 144/73 H 04/05/21 08:00 Pulse Ox 98 04/05/21 08:00 Body Mass Index 26.8 Const: General: cooperative, healthy appearing, comfortable and no acute distress Orientation/consciousness: oriented to person, oriented to place and patient oriented x3 Limitations: no limitations HENMT: Head: Yes normal to inspection, Yes normocephalic and Yes atraumatic Ears: external ears normal General nose exam: Normal external nose present Face and sinus: Yes normal facial exam Mouth: Normal oral and palatal mucosa present and moist mucous membranes Throat: Yes posterior oropharynx normal Eyes: General: appearance normal, both eyes and all related structures Pupils: Equal, round and reactive pupils present Neck: Neck: Yes normal visual inspection, Yes full ROM, Yes no lymphadenopathy, Yes trachea midline and Yes supple Chest: Chest palpation & inspection: normal inspection of the chest and normal palpation of entire chest wall Resp: Effort & Inspection: normal respiratory effort, able to speak in complete sentences and no respiratory distress Auscultation: clear to auscultation bilaterally Cardio: Rate: regular rate Rhythm: regular rhythm Heart sounds: S1 normal heart sound present, S2 normal heart sound present and no murmurs GI: Inspection: Yes normal to inspection Palpation (GI): Soft to palpation, nontender and no guarding Auscultation: normal bowel sounds Rectal Exam - Male: Yes visual inspection normal, Yes normal sphincter tone, Yes prostate abnormal (Large prostate versus rectal mass) and Yes heme negative stool (Brown stool) : General: Yes no CVA tenderness Back/Spine/Pelvis: Back: no CVA tenderness Cervical Spine: normal cervical lordosis Thoracic/Lumbar Spine: thoracic and lumbar spine normal to inspection Skin: General skin exam: no rashes or lesions noted Neuro: General: oriented to person, oriented to place, patient oriented x3, gait normal, tone normal and moves all extremities Cranial nerves: Yes CN's II-XII intact bilaterally and Yes Equal, round and reactive pupils present Cognition (Neuro): normal cognition Motor exam (neuro): 5/5 motor strength present throughout Extrem: General: Yes normal to inspection, Yes capillary refill normal and No edema Psych: Appearance: grossly normal Speech and movement: Normal speech and movement present Affect: normal affect Attitude: cooperative Thought process: Normal thought process present Thought content: Normal thought content present Objective Data Labs CBC & Chem 7: 04/05/21 05:18 04/05/21 05:18 Labs: Laboratory Results - last 24 hr 04/04/21 04/05/21 04/05/21 14:50 05:18 05:18 WBC 8.4 RBC 2.75 L Hgb 7.8 L Hct 22.8 L MCV 82.9 MCH 28.4 MCHC 34.2 RDW 14.5 Plt Count 205 MPV 10.9 Absolute Nucleated RBC 0.000 Nucleated RBC % (auto) 0.0 Sodium 136 138 Potassium 3.7 D 4.0 Chloride 98 101 Carbon Dioxide 20 L 19 L Anion Gap 22 H 22 H BUN 131 H* 123 H* Creatinine 10.74 H* 10.86 H* Estim Creat Clear Calc 6.1 6.0 Estimated GFR 5 5 Random Glucose 154 H Fasting Glucose 81 Calcium 4.3 L* 4.6 L* D Microbiology Microbiology Results: Microbiology 04/01/21 20:05 Urine Catheterized - Victor Catheter Urine Culture - Final No growth. Procedures Date of Service Date of Service: 04/05/21 Assessment & Plan Assessment and plan (1) Acute kidney injury: Status: Acute Assessment and Plan: urologic intervention today await the outcome Assessment and Plan: 61M presented with ams, found to have MEGHAN on CKD V, anemia, hypocalcemia, metabolic acidosis, was admitted to ICU, victor placed, given IV fluids, downg raded to medical floor 04/02/21 metabolic encephalopathy due to MEGHAN on CKD V complicated by metabolic acidosis obstructive Dr Restrepo and I discussed this pt yesterday we agreed if renal function not improved he would do a cysto and try retrograde stents if not able will get bilateral perc nephrostomies likely has met. prostate ca obstructing the trigome Time Spent With Patient Time: Total time spent is greater than 50% in coordination of care (as documented) at patient's floor/unit and/or counseling patient: Progress Note: Quality Stroke Does the patient have a stroke diagnosis?: No
[2021-04-05] MEDS: Potassium Chloride ER 20 MEQ TAB.ER.PRT PO (08:17)
[2021-04-05] MEDS: Lactated Ringers 1,000 ML 80 ML IVCONT ×2 (10:12→23:36)
[2021-04-05 11:11] VITALS: BP 141/75; PULSE 67; RESP 18; TEMP 36.8; O2SAT 97
--- NOTE | 2021-04-05 11:26 | P.PNIM_ITS ---
Subjective Subjective Date of Service: 04/05/21 Interval History: no complaints Cardiovascular Cardiovascular: Reports no additional cardiovascular complaints Respiratory Respiratory: Reports no additional respiratory complaints Physical Exam Vital Signs: Vital Signs: Last Vital Signs Temp 98.3 F 04/05/21 11:11 Pulse 67 04/05/21 11:11 Resp 18 04/05/21 11:11 BP 141/75 H 04/05/21 11:11 Pulse Ox 97 04/05/21 11:11 Body Mass Index 26.8 General: lethargic O X 3, no acute distress Resp:? CTA bilateral CVS: S1,S2,RRR GI: soft, non tender, non distended Neuro:? motor grossly intact Psych: appropriate affect Objective Data Active Medications Calcium Carbonate (Calcium Carbonate 750 Mg Tab.Chew) 750 mg PO Q6H [facility] Last Admin: 04/05/21 08:17 Dose: 750 mg Documented by: ANA Lactated Ringer's (Lr) 1,000 mls @ 80 mls/hr IVCONT .[id number] [facility] Last Admin: 04/05/21 10:12 Dose: 80 mls/hr Documented by: ANA Melatonin (Melatonin 3 Mg Tablet) 6 mg PO BEDTIME PRN PRN Reason: Insomnia Last Admin: 04/04/21 20:53 Dose: 6 mg Documented by: ELMER Pharmacy Consult (Consult Rx Perform Med Rec) 1 each MISCELLANE ONCE PRN PRN Reason: Consult order Sodium Chloride (Sodium Chloride 0.65 % Nasal 44 Ml Sprbtl) 1 spray NOSTRIL-B Q1H PRN PRN Reason: Congestion Labs CBC & Chem 7: 04/05/21 05:18 04/05/21 05:18 Labs: Laboratory Results - last 24 hr 04/04/21 04/05/21 04/05/21 14:50 05:18 05:18 MCV 82.9 MCH 28.4 MCHC 34.2 RDW 14.5 Plt Count 205 MPV 10.9 Absolute Nucleated RBC 0.000 Nucleated RBC % (auto) 0.0 Anion Gap 22 H 22 H Estim Creat Clear Calc 6.1 6.0 Estimated GFR 5 5 Random Glucose 154 H Fasting Glucose 81 Calcium 4.3 L* 4.6 L* D Assessment and Plan (1) Acute kidney injury: Status: Acute Assessment and Plan: 61M presented with ams, found to have MEGHAN on CKD V, anemia, hypocalcemia, metabolic acidosis, was admitted to ICU, victor placed, given IV fluids, downgraded to medical floor 04/02/21 metabolic encephalopathy due to MEGHAN on CKD V complicated by metabolic acidosis obstructive keep victor acidosis resolved monitor nephro following plan for cysto and ureteral stents vs bilateral nephrostomy anemia likely due to kidney disease transfused 1 unit prbc on 04/03, hgb improved from 6.5 to 7.8 hypocalcemia with sclerotic bone lesions seen on CT likely due to long standing secondary hyperparathyroid from CKD nephro following calcium supplement should rule out metastatic prostate cancer with elevated PSA 22, follow up outpatient hypokalemia replace and monitor VTE prphylaxis - mechanical due to significant anemia Quality Stroke Does the patient have a stroke diagnosis?: No VTE Prior VTE?: No VTE Risk Level:: Medical - moderate - high VTE Device Contraindication: N/A - Device Ordered VTE Drug Contraindication: N/A - Med Ordered
[2021-04-05 15:29] VITALS: BP 156/71; PULSE 68; RESP 18; TEMP 36.8; O2SAT 98
[2021-04-05 19:28] VITALS: BP 144/69; PULSE 72; RESP 18; TEMP 36.9; O2SAT 98
[2021-04-05] MEDS: Melatonin 3 MG TABLET 6 MG PO (20:25)
[2021-04-05 23:40] VITALS: BP 129/62; PULSE 61; RESP 18; TEMP 37.2; O2SAT 95
[2021-04-06 03:57] VITALS: BP 132/63; PULSE 63; RESP 18; TEMP 36.5; O2SAT 97
[2021-04-06 05:57] LABS: Hematocrit 22.8 % (42-52); Hemoglobin 7.7 g/dl (14.0-18.0); Mean Corpuscular HGB Conc 33.8 g/dl (31.0-36.0); Mean Corpuscular Hemoglobin 28.5 pg (27.0-33.0); Mean Corpuscular Volume 84.4 fL (80-98); Mean Platelet Volume 10.1 fL (9.4-12.4); Platelet Count 184 X10*3/uL (160-400); Red Cell Distribution Width 14.1 % (11.0-16.0); White Blood Count 8.4 X10*3/uL (4.8-10.8)
[2021-04-06 06:32] LABS: Calcium 4.8 mg/dL (8.4-10.2)
[2021-04-06 06:33] LABS: Anion Gap 18 (12-20); Carbon Dioxide 21 mmol/L (22-29); Chloride 103 mmol/L (96-108); Creatinine Clr Calc Pharmacy 6.5; Estimated Glomerular Filt Rate 5; Glucose Fasting 93 mg/dL (60-99); Sodium 138 mmol/L (135-145)
[2021-04-06 06:44] LABS: Blood Urea Nitrogen 117 mg/dL (9-16)
[2021-04-06 08:00] VITALS: BP 125/75; PULSE 65; RESP 22; TEMP 36.8; O2SAT 95
--- NOTE | 2021-04-06 08:42 | P.PNNP_ITS ---
Subjective Subjective Date of Service: 04/06/21 Interval history: no complaints Physical Exam Vital Signs: Vital Signs: Last Vital Signs Temp 98.2 F 04/06/21 08:00 Pulse 65 04/06/21 08:00 Resp 22 H 04/06/21 08:00 BP 125/75 04/06/21 08:00 Pulse Ox 95 04/06/21 08:00 Body Mass Index 26.8 Const: General: cooperative, healthy appearing, comfortable and no acute distress Orientation/consciousness: oriented to person, oriented to place and patient oriented x3 Limitations: no limitations HENMT: Head: Yes normal to inspection, Yes normocephalic and Yes atraumatic Ears: external ears normal General nose exam: Normal external nose present Face and sinus: Yes normal facial exam Mouth: Normal oral and palatal mucosa present and moist mucous membranes Throat: Yes posterior oropharynx normal Eyes: General: appearance normal, both eyes and all related structures Pupi ls: Equal, round and reactive pupils present Neck: Neck: Yes normal visual inspection, Yes full ROM, Yes no lymphadenopathy, Yes trachea midline and Yes supple Chest: Chest palpation & inspection: normal inspection of the chest and normal palpation of entire chest wall Resp: Effort & Inspection: normal respiratory effort, able to speak in complete sentences and no respiratory distress Auscultation: clear to auscultation bilaterally Cardio: Rate: regular rate Rhythm: regular rhythm Heart sounds: S1 normal heart sound present, S2 normal heart sound present and no murmurs GI: Inspection: Yes normal to inspection Palpation (GI): Soft to palpation, nontender and no guarding Auscultation: normal bowel sounds Rectal Exam - Male: Yes visual inspection normal, Yes normal sphincter tone, Yes prostate abnormal (Large prostate versus rectal mass) and Yes heme negative stool (Brown stool) : General: Yes no CVA tenderness Back/Spine/Pelvis: Back: no CVA tenderness Cervical Spine: normal cervical lordosis Thoracic/Lumbar Spine: thoracic and lumbar spine normal to inspection Skin: General skin exam: no rashes or lesions noted Neuro: General: oriented to person, oriented to place, patient oriented x3, gait normal, tone normal and moves all extremities Cranial nerves: Yes CN's II-XII intact bilaterally and Yes Equal, round and reactive pupils present Cognition (Neuro): normal cognition Motor exam (neuro): 5/5 motor strength present throughout Extrem: General: Yes normal to inspection, Yes capillary refill normal and No edema Psych: Appearance: grossly normal Speech and movement: Normal speech and movement present Affect: normal affect Attitude: cooperative Thought process: Normal thought process present Thought content: Normal thought content present Objective Data Labs CBC & Chem 7: 04/06/21 05:41 04/06/21 05:41 Labs: Laboratory Results - last 24 hr 04/01/21 04/06/21 04/06/21 19:52 05:41 05:41 WBC 8.4 RBC 2.70 L Hgb 7.7 L Hct 22.8 L MCV 84.4 MCH 28.5 MCHC 33.8 RDW 14.1 Plt Count 184 MPV 10.1 Absolute Nucleated RBC 0.000 Nucleated RBC % (auto) 0.0 Sodium 138 Potassium 4.0 Chloride 103 Carbon Dioxide 21 L Anion Gap 18 BUN 117 H* Creatinine 10.14 H* Estim Creat Clear Calc 6.5 Estimated GFR 5 Fasting Glucose 93 Calcium 4.8 L* Calcium (PTH Intact) 5.0 Microbiology Microbiology Results: Microbiology 04/01/21 20:05 Urine Catheterized - Victor Catheter Urine Culture - Final No growth. Procedures Date of Service Date of Service: 04/06/21 Assessment & Plan Assessment and plan (1) Acute kidney injury: Status: Acute Assessment and Plan: creat has not improved discussed with Urology needs cysto today with stents if stents not possible will need perc neph Assessment and Plan: 61M presented with ams, found to have MEGHAN on CKD V, anemia, hypocalcemia, metabolic acidosis, was admitted to ICU, victor placed, given IV fluids, Time Spent With Patient Time: Total time spent is greater than 50% in coordination of care (as documented) at patient's floor/unit and/or counseling patient: Progress Note: Quality Stroke Does the patient have a stroke diagnosis?: No
[2021-04-06] MEDS: Calcium Carbonate 750 MG TAB.CHEW PO ×3 (09:13→19:49)
[2021-04-06] MEDS: Cholecalciferol (Vitamin D3) 25 MCG TABLET 50 MCG PO (09:14)
[2021-04-06] MEDS: Lactated Ringers 1,000 ML 80 ML IVCONT (11:47)
[2021-04-06 12:00] VITALS: BP 166/78; PULSE 57; RESP 20; TEMP 36.8; O2SAT 99
--- NOTE | 2021-04-06 12:29 | HO.PM.IMPN ---
Subjective Subjective Date of Service: 04/06/21 Interval History: no complaints Cardiovascular Cardiovascular: Reports no additional cardiovascular complaints Respiratory Respiratory: Reports no additional respiratory complaints Physical Exam Vital Signs: Vital Signs: Last Vital Signs Temp 98.2 F 04/06/21 12:00 Pulse 57 04/06/21 12:00 Resp 20 04/06/21 12:00 BP 166/78 H 04/06/21 12:00 Pulse Ox 99 04/06/21 12:00 Body Mass Index 26.8 Objective Data Active Medications Calcium Carbonate (Calcium Carbonate 750 Mg Tab.Chew) 750 mg PO Q6H [facility] Last Admin: 04/06/21 09:13 Dose: 750 mg Documented by: ANA Lactated Ringer's (Lr) 1,000 mls @ 80 mls/hr IVCONT .[id number] [facility] Last Admin: 04/06/21 11:47 Dose: 80 mls/hr Documented by: ANA Melatonin (Melatonin 3 Mg Tablet) 6 mg PO BEDTIME PRN PRN Reason: Insomnia Last Admin: 04/05/21 20:25 Dose: 6 mg Documented by: MINOO Pharmacy Consult (Consult Rx Perform Med Rec) 1 each MISCELLANE ONCE PRN PRN Reason: Consult order Sodium Chloride (Sodium Chloride 0.65 % Nasal 44 Ml Sprbtl) 1 spray NOSTRIL-B Q1H PRN PRN Reason: Congestion Vitamin D (Cholecalciferol (Vitamin D3) 25 Mcg Tablet) 50 mcg PO DAILY [facility] Last Admin: 04/06/21 09:14 Dose: 50 mcg Documented by: ANA Labs CBC & Chem 7: 04/06/21 05:41 04/06/21 05:41 Labs: Laboratory Results - last 24 hr 04/01/21 04/06/21 04/06/21 19:52 05:41 05:41 MCV 84.4 MCH 28.5 MCHC 33.8 RDW 14.1 Plt Count 184 MPV 10.1 Absolute Nucleated RBC 0.000 Nucleated RBC % (auto) 0.0 Anion Gap 18 Estim Creat Clear Calc 6.5 Estimated GFR 5 Fasting Glucose 93 Calcium 4.8 L* Calcium (PTH Intact) 5.0 Assessment and Plan (1) Acute kidney injury: Status: Acute (2) Bilateral hydronephrosis: Status: Acute (3) Hypocalcemia: Status: Acute Assessment and Plan: 61M presented with ams, found to have MEGHAN on CKD V, anemia, hypocalcemia, metabolic acidosis, was admitted to ICU, victor placed, given IV fluids, downgraded to medical floor 04/02/21 metabolic encephalopathy due to MEGHAN on CKD V complicated by metabolic acidosis obstructive keep victor acidosis resolved monitor nephro following plan for cysto and ureteral stents and if no ipmrovement bilateral nephrostomy anemia likely due to kidney disease transfused 1 unit prbc on 04/03, hgb improved from 6.5 to 7.8, stable at 7.7 today hypocalcemia with sclerotic bone lesions seen on CT likely due to long standing secondary hyperparathyroid from CKD nephro following calcium and vit D supplement should rule out metastatic prostate cancer with elevated PSA 22, follow up outpatient hypokalemia resolved VTE prphylaxis - mechanical due to significant anemia Quality Stroke Does the patient have a stroke diagnosis?: No VTE Prior VTE?: No VTE Risk Level:: Medical - moderate - high VTE Device Contraindication: N/A - Device Ordered VTE Drug Contraindication: N/A - Med Ordered
[2021-04-06 15:09] VITALS: BP 173/75; PULSE 63; RESP 18; TEMP 37.6; O2SAT 98
[2021-04-06] MEDS: Melatonin 3 MG TABLET 6 MG PO (19:51)
[2021-04-06 20:00] VITALS: BP 143/72; PULSE 65; RESP 18; TEMP 36.9; O2SAT 97
[2021-04-07] VITALS (14 sets, daily range): BP systolic 135–170; BP diastolic 60–80; PULSE 57–86; RESP 16–20; TEMP 36.4–37.2; O2SAT 94–100; BMI 26.8
[2021-04-07] MEDS: Lactated Ringers 1,000 ML 80 ML IVCONT ×2 (00:59→08:10)
[2021-04-07] MEDS: Calcium Carbonate 750 MG TAB.CHEW PO ×3 (01:00→21:54)
[2021-04-07 06:24] LABS: Hematocrit 23.5 % (42-52); Hemoglobin 7.8 g/dl (14.0-18.0); Mean Corpuscular HGB Conc 33.2 g/dl (31.0-36.0); Mean Corpuscular Hemoglobin 28.2 pg (27.0-33.0); Mean Corpuscular Volume 84.8 fL (80-98); Mean Platelet Volume 10.9 fL (9.4-12.4); Platelet Count 187 X10*3/uL (160-400); Red Blood Count 2.77 X10*6/uL (4.60-5.80); Red Cell Distribution Width 13.9 % (11.0-16.0); White Blood Count 8.1 X10*3/uL (4.8-10.8)
[2021-04-07 06:51] LABS: Anion Gap 19 (12-20); Blood Urea Nitrogen 111 mg/dL (9-16); Calcium 5.1 mg/dL (8.4-10.2); Carbon Dioxide 19 mmol/L (22-29); Chloride 105 mmol/L (96-108); Creatinine Clr Calc Pharmacy 7.1; Estimated Glomerular Filt Rate 6; Glucose Fasting 114 mg/dL (60-99); Potassium 3.9 mmol/L (3.3-5.1); Sodium 139 mmol/L (135-145)
--- NOTE | 2021-04-07 08:34 | PM.UROPN ---
Subjective Subjective Date of Service: 04/07/21 Interval history: Continues with slow decreasing creatinine Discussion with Dr. Dumont nephrology Will proceed with bilateral stent placement today Physical Exam Vital Signs: Vital Signs: Last Vital Signs Temp 98.6 F 04/07/21 07:57 Pulse 61 04/07/21 07:57 Resp 16 04/07/21 07:57 BP 135/70 04/07/21 07:57 Pulse Ox 97 04/07/21 07:57 Body Mass Index 26.8 Const: General: cooperative, healthy appearing, comfortable and no acute distress Orientation/consciousness: patient oriented x3 HENMT: Face and sinus: Yes normal facial exam Mouth: moist mucous membranes Neck: Neck: Yes normal visual inspection, Yes full ROM and Yes trachea midline Chest: Chest palpation & inspection: normal inspection of the chest Resp: Effort & Inspection: normal respiratory effort, able to speak in complete sentences and no respiratory distress GI: Inspection: Yes normal to inspection Back/Spine/Pelvis: Cervical Spine: normal cervical lordosis Thoracic/Lumbar Spine: thoracic and lumbar spine normal to inspection Skin: General skin exam: no rashes or lesions noted Neuro: General: patient oriented x3, gait normal, tone normal and moves all extremities Extrem: General: Yes normal to inspection and Yes capillary refill normal Urology Results Labs CBC & Chem 7: 04/07/21 05:47 04/07/21 05:47 Labs: Laboratory Results - last 24 hr 04/07/21 04/07/21 05:47 05:47 WBC 8.1 RBC 2.77 L Hgb 7.8 L Hct 23.5 L MCV 84.8 MCH 28.2 MCHC 33.2 RDW 13.9 Plt Count 187 MPV 10.9 Absolute Nucleated RBC 0.000 Nucleated RBC % (auto) 0.0 Sodium 139 Potassium 3.9 Chloride 105 Carbon Dioxide 19 L Anion Gap 19 BUN 111 H* Creatinine 9.26 H* Estim Creat Clear Calc 7.1 Estimated GFR 6 Fasting Glucose 114 H Calcium 5.1 L* D Progress Note: A&P Assessment and plan (1) Bilateral hydronephrosis: Status: Acute (2) Acute kidney injury: Status: Acute Assessment and Plan: Risks, benefits and alternatives to therapy were discussed. These include but are not limited to infection, bleeding, damage to local organs and tissues, need for further interventions. Anesthetic risks regarding cardiac arrhythmia, blood clots, and potential mortality were discussed. The patient understands the typical recovery time and the outpatient nature of the procedure. After consideration of these risks the patient gives full informed consent and they wish to move ahead with the procedure. Cystoscopy with bilateral retrograde stent placements Fall Risk Details Current Medications: Current Medications Generic Name Dose Route Start Last Admin Trade Name Freq PRN Reason Stop Dose Admin Calcium Carbonate 750 mg 04/03/21 09:15 04/07/21 01:00 Calcium Carbonate 750 Mg Tab.Chew PO 750 mg Q6H FREIDA Administration Lactated Ringer's 1,000 mls @ 80 mls/hr 04/04/21 17:00 04/07/21 08:10 Lr IVCONT 80 mls/hr .[id number] FREIDA Administration Melatonin 6 mg 04/02/21 22:18 04/06/21 19:51 Melatonin 3 Mg Tablet PO 6 mg BEDTIME PRN Administration Insomnia Pharmacy Consult 1 each 04/01/21 21:54 Consult Rx Perform Med Rec MISCELLANE ONCE PRN Consult order Sodium Chloride 1 spray 04/03/21 05:58 Sodium Chloride 0.65 % Nasal 44 Ml Sprbtl NOSTRIL-B Q1H PRN Congestion Vitamin D 50 mcg 04/06/21 09:00 04/06/21 09:14 Cholecalciferol (Vitamin D3) 25 Mcg Tablet PO 50 mcg DAILY FREIDA Administration Time Spent With Patient Time: Total time spent is greater than 50% in coordination of care (as documented) at patient's floor/unit and/or counseling patient: Time with patient: less than 15 minutes Progress Note: Quality Stroke Does the patient have a stroke diagnosis?: No
[2021-04-07] MEDS: levoFLOXacin 500 MG TABLET PO ×2 (08:59→16:18)
[2021-04-07] MEDS: Cholecalciferol (Vitamin D3) 25 MCG TABLET 50 MCG PO (08:59)
--- NOTE | 2021-04-07 15:59 | PC.NURSE ---
pt to PACU for cystoscopy and stenting via stretcher
--- NOTE | 2021-04-07 16:37 | P.CONAN_ITS ---
[facility] Active Problems Active Problems: All Active Problems (Updated 04/03/21 @ 14:18 by Zach junior MD) CKD (chronic kidney disease) stage 5, GFR less than 15 ml/min (Acute) Anemia (Acute) Hypokalemia (Acute) Metabolic acidosis (Acute) Bilateral hydronephrosis (Acute) Acute kidney injury (Acute) Acute anemia (Acute) Hypocalcemia (Acute) Surgical History History of Problems with Anesthesia: No Social History Social History Household Members: None Housing: Other Housing Other:: mobile home Do you presently have visiting nurse or other home services: No Patient Tobacco Use Status: Former Tobacco user Tobacco use type: Cigarette Smoked in Last 30 Days: No e-Cigarette/Vaping Use: Former Use Use of substances other than those prescribed or required for medical reasons: Yes Substance Use Frequency: Daily Currently Displaying Signs/Symptoms of Drug Intoxication Withdrawal: No Have you been hit, kicked, punched, or otherwise hurt by someone within the past year? If so, by whom?: No Do you feel safe in your current relationship?: No Current Relationship Is there a partner from a previous relationship who is making you feel unsafe now?: No Are you made to feel afraid or neglected: No Are you DNR?: No Advance Directives: No Advance Directives Information Provided: Yes Do you have thoughts of harming others: None Do you have a plan to hurt others: No Plan Recently lost weight without trying: Yes How much weight loss: 2-13 pounds Eating poorly because of decreased appetite: No Nutrition screen score: 3 Nutrition Risks: No Nutritional Risk Poor oral hygiene: No service: No Current occupational status: disabled Meds Allergies Allergy/AdvReac Type Severity Reaction Status Date / Time No Known Allergies Allergy Unverified 04/17/20 18:44 [No Known Allergies*] Active Medications: Current Medications Generic Name Dose Route Start Last Admin Trade Name Freq PRN Reason Stop Dose Admin Calcium Carbonate 750 mg 04/03/21 09:15 04/07/21 08:59 Calcium Carbonate 750 Mg Tab.Chew PO 750 mg Q6H FREIDA Administration Lactated Ringer's 1,000 mls @ 80 mls/hr 04/04/21 17:00 04/07/21 08:10 Lr IVCONT 80 mls/hr .[id number] FREIDA Administration Melatonin 6 mg 04/02/21 22:18 04/06/21 19:51 Melatonin 3 Mg Tablet PO 6 mg BEDTIME PRN Administration Insomnia Pharmacy Consult 1 each 04/01/21 21:54 Consult Rx Perform Med Rec MISCELLANE ONCE PRN Consult order Sodium Chloride 1 spray 04/03/21 05:58 Sodium Chloride 0.65 % Nasal 44 Ml Sprbtl NOSTRIL-B Q1H PRN Congestion Vitamin D 50 mcg 04/06/21 09:00 04/07/21 08:59 Cholecalciferol (Vitamin D3) 25 Mcg Tablet PO 50 mcg DAILY FREIDA Administration Home Medications Medication Instructions Recorded Confirmed Last Taken Type anqgufnt-aud-antoh acid 300 1 tab PO DAILY 04/01/21 04/01/21 03/31/21 History mcg-lycopene 600 mcg-lutein 300 mcg tablet (Centrum Silver Men) Exam Exam Date and Time: April 07, 2021 1637 Height,Weight and Vital Signs: Height 5 ft 2 in Weight 66.5 kg Last Vital Signs Temp 97.9 F 04/07/21 16:18 Pulse 58 04/07/21 16:18 Resp 18 04/07/21 16:18 BP 158/74 H 04/07/21 16:18 Pulse Ox 99 04/07/21 16:18 Pertinent Lab Results Pertinent Lab Results: Laboratory Tests 04/01/21 04/01/21 04/01/21 18:02 18:02 18:03 WBC 7.1 RBC 2.13 L Hgb 5.9 L* Hct 16.3 L* MCV 76.5 L MCH 27.7 MCHC 36.2 H RDW 14.0 Plt Count 271 MPV 10.7 Immature Gran % (Auto) 0.8 H Neut % (Auto) 83.7 H Lymph % (Auto) 7.5 L [place] % (Auto) 7.2 Eos % (Auto) 0.4 Baso % (Auto) 0.4 Lymph # (Auto) 0.5 L [place] # (Auto) 0.5 Eos # (Auto) 0.0 Baso # (Auto) 0.0 Abs Immat Gran (auto) 0.06 H Absolute Neuts (auto) 5.9 Absolute Nucleated RBC 0.000 Nucleated RBC % (auto) 0.0 Smear Path Review SEE NOTE PT INR APTT D-Dimer VBG pH VBG pCO2 VBG pO2 VBG HCO3 VBG O2 Saturation VBG Base Excess Sodium Potassium Chloride Carbon Dioxide Anion Gap BUN Creatinine Estim Creat Clear Calc Estimated GFR Random Glucose Fasting Glucose Osmolality Lactic Acid Calcium Phosphorus Magnesium Iron TIBC % Saturation Unsat Iron Binding Ferritin Total Bilirubin Direct Bilirubin AST ALT Alkaline Phosphatase Total Creatine Kinase Troponin I High Sens B-Natriuretic Peptide 67 Total Protein Albumin Lipase Total PSA TSH 2.29 PTH Intact Calcium (PTH Intact) Urine Color Urine Appearance Urine pH Ur Specific [place] Urine Protein Urine Glucose (UA) Urine Ketones Urine Blood Urine Nitrite Ur Leukocyte Esterase Urine RBC Urine WBC Ur Squamous Epith Cells Urine Bacteria Urine Osmolality U Random Total Protein Ur Random Sodium Urine Creatinine Urine Opiates Screen Urine Fentanyl Screen Ur Barbiturates Screen Ur Phencyclidine Scrn Ur Amphetamines Screen U Benzodiazepines Scrn Urine Cocaine Screen U Marijuana (THC) Screen COVID-19 (MIMI) COVID-19 Clin Com Blood Type Antibody Screen Crossmatch 04/01/21 04/01/21 04/01/21 18:03 18:03 18:03 WBC RBC Hgb Hct MCV MCH MCHC RDW Plt Count MPV Immature Gran % (Auto) Neut % (Auto) Lymph % (Auto) [place] % (Auto) Eos % (Auto) Baso % (Auto) Lymph # (Auto) [place] # (Auto) Eos # (Auto) Baso # (Auto) Abs Immat Gran (auto) Absolute Neuts (auto) Absolute Nucleated RBC Nucleated RBC % (auto) Smear Path Review PT 12.5 INR 1.1 APTT 31.8 D-Dimer 1692 VBG pH VBG pCO2 VBG pO2 VBG HCO3 VBG O2 Saturation VBG Base Excess Sodium 127 L Potassium 3.9 Chloride 96 Carbon Dioxide 6 L* Anion Gap 29 H BUN 165 H* Creatinine 14.63 H* Estim Creat Clear Calc 4.6 Estimated GFR 3 Random Glucose 128 H Fasting Glucose Osmolality Lactic Acid Calcium 5.0 L* Phosphorus Magnesium Iron 140 TIBC 175 L % Saturation 80 H Unsat Iron Binding 35 Ferritin Total Bilirubin 0.6 Direct Bilirubin AST 4 L ALT 7 Alkaline Phosphatase 87 Total Creatine Kinase 910 H Troponin I High Sens B-Natriuretic Peptide Total Protein 6.8 Albumin 4.3 Lipase 171 H Total PSA TSH PTH Intact Calcium (PTH Intact) Urine Color Urine Appearance Urine pH Ur Specific [place] Urine Protein Urine Glucose (UA) Urine Ketones Urine Blood Urine Nitrite Ur Leukocyte Esterase Urine RBC Urine WBC Ur Squamous Epith Cells Urine Bacteria Urine Osmolality U Random Total Protein Ur Random Sodium Urine Creatinine Urine Opiates Screen Urine Fentanyl Screen Ur Barbiturates Screen Ur Phencyclidine Scrn Ur Amphetamines Screen U Benzodiazepines Scrn Urine Cocaine Screen U Marijuana (THC) Screen COVID-19 (MIMI) Negative COVID-19 Clin Com See Note Blood Type Antibody Screen Crossmatch 04/01/21 04/01/21 04/01/21 18:03 18:03 18:07 WBC RBC Hgb Hct MCV MCH MCHC RDW Plt Count MPV Immature Gran % (Auto) Neut % (Auto) Lymph % (Auto) [place] % (Auto) Eos % (Auto) Baso % (Auto) Lymph # (Auto) [place] # (Auto) Eos # (Auto) Baso # (Auto) Abs Immat Gran (auto) Absolute Neuts (auto) Absolute Nucleated RBC Nucleated RBC % (auto) Smear Path Review PT INR APTT D-Dimer VBG pH VBG pCO2 VBG pO2 VBG HCO3 VBG O2 Saturation VBG Base Excess Sodium Potassium Chloride Carbon Dioxide Anion Gap BUN Creatinine Estim Creat Clear Calc Estimated GFR Random Glucose Fasting Glucose Osmolality 332 H Lactic Acid Calcium Phosphorus Magnesium Iron TIBC % Saturation Unsat Iron Binding Ferritin Total Bilirubin Direct Bilirubin AST ALT Alkaline Phosphatase Total Creatine Kinase Troponin I High Sens 18.6 B-Natriuretic Peptide Total Protein Albumin Lipase Total PSA TSH PTH Intact Calcium (PTH Intact) Urine Color Urine Appearance Urine pH Ur Specific [place] Urine Protein Urine Glucose (UA) Urine Ketones Urine Blood Urine Nitrite Ur Leukocyte Esterase Urine RBC Urine WBC Ur Squamous Epith Cells Urine Bacteria Urine Osmolality U Random Total Protein Ur Random Sodium Urine Creatinine Urine Opiates Screen Urine Fentanyl Screen Ur Barbiturates Screen Ur Phencyclidine Scrn Ur Amphetamines Screen U Benzodiazepines Scrn Urine Cocaine Screen U Marijuana (THC) Screen COVID-19 (MIMI) COVID-19 Clin Com Blood Type A Positive Antibody Screen NEGATIVE Crossmatch See Detail 04/01/21 04/01/21 04/01/21 18:28 19:52 19:52 WBC RBC Hgb Hct MCV MCH MCHC RDW Plt Count MPV Immature Gran % (Auto) Neut % (Auto) Lymph % (Auto) [place] % (Auto) Eos % (Auto) Baso % (Auto) Lymph # (Auto) [place] # (Auto) Eos # (Auto) Baso # (Auto) Abs Immat Gran (auto) Absolute Neuts (auto) Absolute Nucleated RBC Nucleated RBC % (auto) Smear Path Review PT INR APTT D-Dimer VBG pH VBG pCO2 VBG pO2 VBG HCO3 VBG O2 Saturation VBG Base Excess Sodium Potassium Chloride Carbon Dioxide Anion Gap BUN Creatinine Estim Creat Clear Calc Estimated GFR Random Glucose Fasting Glucose Osmolality Lactic Acid 0.7 0.6 Calcium Phosphorus Magnesium Iron TIBC % Saturation Unsat Iron Binding Ferritin Total Bilirubin Direct Bilirubin AST ALT Alkaline Phosphatase Total Creatine Kinase Troponin I High Sens B-Natriuretic Peptide Total Protein Albumin Lipase Total PSA TSH PTH Intact 282 H Calcium (PTH Intact) 5.0 Urine Color Urine Appearance Urine pH Ur Specific [place] Urine Protein Urine Glucose (UA) Urine Ketones Urine Blood Urine Nitrite Ur Leukocyte Esterase Urine RBC Urine WBC Ur Squamous Epith Cells Urine Bacteria Urine Osmolality U Random Total Protein Ur Random Sodium Urine Creatinine Urine Opiates Screen Urine Fentanyl Screen Ur Barbiturates Screen Ur Phencyclidine Scrn Ur Amphetamines Screen U Benzodiazepines Scrn Urine Cocaine Screen U Marijuana (THC) Screen COVID-19 (MIMI) COVID-19 Clin Com Blood Type Antibody Screen Crossmatch 04/01/21 04/01/21 04/01/21 19:52 19:52 19:52 WBC RBC Hgb Hct MCV MCH MCHC RDW Plt Count MPV Immature Gran % (Auto) Neut % (Auto) Lymph % (Auto) [place] % (Auto) Eos % (Auto) Baso % (Auto) Lymph # (Auto) [place] # (Auto) Eos # (Auto) Baso # (Auto) Abs Immat Gran (auto) Absolute Neuts (auto) Absolute Nucleated RBC Nucleated RBC % (auto) Smear Path Review PT INR APTT D-Dimer VBG pH VBG pCO2 VBG pO2 VBG HCO3 VBG O2 Saturation VBG Base Excess Sodium Potassium Chloride Carbon Dioxide Anion Gap BUN Creatinine Estim Creat Clear Calc Estimated GFR Random Glucose Fasting Glucose Osmolality Lactic Acid Calcium Phosphorus Magnesium Iron TIBC % Saturation Unsat Iron Binding Ferritin Total Bilirubin Direct Bilirubin AST ALT Alkaline Phosphatase Total Creatine Kinase Troponin I High Sens B-Natriuretic Peptide Total Protein Albumin Lipase Total PSA TSH PTH Intact Calcium (PTH Intact) Urine Color YELLOW Urine Appearance CLEAR Urine pH 6.0 Ur Specific [place] 1.010 Urine Protein 1+ H Urine Glucose (UA) 100 H Urine Ketones NEG Urine Blood 2+ H Urine Nitrite NEG Ur Leukocyte Esterase 1+ H Urine RBC 1-4 Urine WBC 1-4 Ur Squamous Epith Cells NONE Urine Bacteria 1+ Urine Osmolality 251 L U Random Total Protein 33 H Ur Random Sodium 35.0 Urine Creatinine 63.03 Urine Opiates Screen Urine Fentanyl Screen Ur Barbiturates Screen Ur Phencyclidine Scrn Ur Amphetamines Screen U Benzodiazepines Scrn Urine Cocaine Screen U Marijuana (THC) Screen COVID-19 (MIMI) COVID-19 Clin Com Blood Type Antibody Screen Crossmatch 04/01/21 04/01/21 04/01/21 19:52 21:32 21:32 WBC 7.2 RBC 2.14 L Hgb 5.9 L* Hct 16.4 L* MCV 76.6 L MCH 27.6 MCHC 36.0 RDW 14.3 Plt Count 272 MPV 10.8 Immature Gran % (Auto) 0.6 H Neut % (Auto) 84.9 H Lymph % (Auto) 6.9 L [place] % (Auto) 6.9 Eos % (Auto) 0.4 Baso % (Auto) 0.3 Lymph # (Auto) 0.5 L [place] # (Auto) 0.5 Eos # (Auto) 0.0 Baso # (Auto) 0.0 Abs Immat Gran (auto) 0.04 H Absolute Neuts (auto) 6.2 Absolute Nucleated RBC 0.000 Nucleated RBC % (auto) 0.0 Smear Path Review PT INR APTT D-Dimer VBG pH VBG pCO2 VBG pO2 VBG HCO3 VBG O2 Saturation VBG Base Excess Sodium 128 L Potassium 4.1 Chloride 97 Carbon Dioxide 6 L* Anion Gap 29 H BUN 164 H* Creatinine 14.66 H* Estim Creat Clear Calc 4.6 Estimated GFR 3 Random Glucose 113 Fasting Glucose Osmolality Lactic Acid Calcium 5.2 L* Phosphorus Magnesium 1.7 Iron TIBC % Saturation Unsat Iron Binding Ferritin Total Bilirubin 0.6 Direct Bilirubin AST 3 L ALT 7 Alkaline Phosphatase 85 Total Creatine Kinase Troponin I High Sens B-Natriuretic Peptide Total Protein 6.7 Albumin 4.3 Lipase Total PSA TSH PTH Intact Calcium (PTH Intact) Urine Color Urine Appearance Urine pH Ur Specific [place] Urine Protein Urine Glucose (UA) Urine Ketones Urine Blood Urine Nitrite Ur Leukocyte Esterase Urine RBC Urine WBC Ur Squamous Epith Cells Urine Bacteria Urine Osmolality U Random Total Protein Ur Random Sodium Urine Creatinine Urine Opiates Screen Not Detected Urine Fentanyl Screen Not Detected Ur Barbiturates Screen Not Detected Ur Phencyclidine Scrn Not Detected Ur Amphetamines Screen Not Detected U Benzodiazepines Scrn Not Detected Urine Cocaine Screen Not Detected U Marijuana (THC) Screen Not Detected COVID-19 ([facility]IMI) COVID-19 Clin Com Blood Type Antibody Screen Crossmatch 04/01/21 04/02/21 04/02/21 21:38 05:14 05:14 WBC 8.5 RBC 2.58 L D Hgb 7.5 L D Hct 20.8 L* D MCV 80.6 MCH 29.1 MCHC 36.1 H RDW 17.3 H Plt Count 232 MPV 10.6 Immature Gran % (Auto) 0.9 H Neut % (Auto) 80.0 H Lymph % (Auto) 8.6 L [place] % (Auto) 9.6 Eos % (Auto) 0.5 Baso % (Auto) 0.4 Lymph # (Auto) 0.7 L [place] # (Auto) 0.8 Eos # (Auto) 0.0 Baso # (Auto) 0.0 Abs Immat Gran (auto) 0.08 H Absolute Neuts (auto) 6.8 Absolute Nucleated RBC 0.000 Nucleated RBC % (auto) 0.0 Smear Path Review PT INR APTT D-Dimer VBG pH 7.13 L* VBG pCO2 13 VBG pO2 69 VBG HCO3 4 L VBG O2 Saturation 88.0 VBG Base Excess -22.0 Sodium 131 L Potassium 3.3 Chloride 101 Carbon Dioxide 8 L* D Anion Gap 25 H BUN 154 H* Creatinine 12.95 H* Estim Creat Clear Calc 5.3 Estimated GFR 4 Random Glucose 115 Fasting Glucose Osmolality Lactic Acid Calcium 4.9 L* Phosphorus 12.0 H Magnesium Iron TIBC % Saturation Unsat Iron Binding Ferritin 612 H Total Bilirubin 1.4 H Direct Bilirubin AST 3 L ALT < 6 Alkaline Phosphatase 77 Total Creatine Kinase Troponin I High Sens B-Natriuretic Peptide Total Protein 5.5 L Albumin 3.5 Lipase Total PSA TSH PTH Intact Calcium (PTH Intact) Urine Color Urine Appearance Urine pH Ur Specific [place] Urine Protein Urine Glucose (UA) Urine Ketones Urine Blood Urine Nitrite Ur Leukocyte Esterase Urine RBC Urine WBC Ur Squamous Epith Cells Urine Bacteria Urine Osmolality U Random Total Protein Ur Random Sodium Urine Creatinine Urine Opiates Screen Urine Fentanyl Screen Ur Barbiturates Screen Ur Phencyclidine Scrn Ur Amphetamines Screen U Benzodiazepines Scrn Urine Cocaine Screen U Marijuana (THC) Screen COVID-19 (MIMI) COVID-19 Clin Com Blood Type Antibody Screen Crossmatch 04/03/21 04/03/21 04/03/21 05:32 05:32 14:49 WBC 7.3 RBC 2.33 L Hgb 6.5 L* Hct 17.9 L* MCV 76.8 L MCH 27.9 MCHC 36.3 H RDW 14.9 Plt Count 222 MPV 10.3 Immature Gran % (Auto) 0.8 H Neut % (Auto) 79.5 H Lymph % (Auto) 8.6 L [place] % (Auto) 9.7 Eos % (Auto) 1.0 Baso % (Auto) 0.4 Lymph # (Auto) 0.6 L [place] # (Auto) 0.7 Eos # (Auto) 0.1 Baso # (Auto) 0.0 Abs Immat Gran (auto) 0.06 H Absolute Neuts (auto) 5.8 Absolute Nucleated RBC 0.000 Nucleated RBC % (auto) 0.0 Smear Path Review PT INR APTT D-Dimer VBG pH VBG pCO2 VBG pO2 VBG HCO3 VBG O2 Saturation VBG Base Excess Sodium 135 Potassium 2.6 L D Chloride 94 L Carbon Dioxide 20 L Anion Gap 24 H BUN 146 H* Creatinine 11.86 H* Estim Creat Clear Calc 5.5 Estimated GFR 4 Random Glucose 130 H Fasting Glucose Osmolality Lactic Acid Calcium 4.5 L* D Phosphorus Magnesium Iron 72 TIBC 152 L % Saturation 47 Unsat Iron Binding 80 Ferritin Total Bilirubin 0.7 Direct Bilirubin 0.2 AST 3 L ALT < 6 Alkaline Phosphatase 66 Total Creatine Kinase Troponin I High Sens B-Natriuretic Peptide Total Protein 4.7 L Albumin 3.1 L Lipase Total PSA 23.38 H TSH PTH Intact Calcium (PTH Intact) Urine Color Urine Appearance Urine pH Ur Specific [place] Urine Protein Urine Glucose (UA) Urine Ketones Urine Blood Urine Nitrite Ur Leukocyte Esterase Urine RBC Urine WBC Ur Squamous Epith Cells Urine Bacteria Urine Osmolality U Random Total Protein Ur Random Sodium Urine Creatinine Urine Opiates Screen Urine Fentanyl Screen Ur Barbiturates Screen Ur Phencyclidine Scrn Ur Amphetamines Screen U Benzodiazepines Scrn Urine Cocaine Screen U Marijuana (THC) Screen COVID-19 (MIMI) COVID-19 Clin Com Blood Type Antibody Screen Crossmatch 04/04/21 04/04/21 04/04/21 05:10 05:10 14:50 WBC 8.7 RBC 2.73 L Hgb 7.8 L Hct 22.2 L D MCV 81.3 MCH 28.6 MCHC 35.1 RDW 14.6 Plt Count 205 MPV 10.9 Immature Gran % (Auto) Neut % (Auto) Lymph % (Auto) [place] % (Auto) Eos % (Auto) Baso % (Auto) Lymph # (Auto) [place] # (Auto) Eos # (Auto) Baso # (Auto) Abs Immat Gran (auto) Absolute Neuts (auto) Absolute Nucleated RBC 0.000 Nucleated RBC % (auto) 0.0 Smear Path Review PT INR APTT D-Dimer VBG pH VBG pCO2 VBG pO2 VBG HCO3 VBG O2 Saturation VBG Base Excess Sodium 136 136 Potassium 2.9 L 3.7 D Chloride 95 L 98 Carbon Dioxide 22 20 L Anion Gap 22 H 22 H BUN 134 H* 131 H* Creatinine 11.12 H* 10.74 H* Estim Creat Clear Calc 5.9 6.1 Estimated GFR 5 5 Random Glucose 154 H Fasting Glucose 103 H Osmolality Lactic Acid Calcium 4.4 L* 4.3 L* Phosphorus Magnesium Iron TIBC % Saturation Unsat Iron Binding Ferritin Total Bilirubin 0.9 Direct Bilirubin 0.3 AST 3 L ALT < 6 Alkaline Phosphatase 69 Total Creatine Kinase Troponin I High Sens B-Natriuretic Peptide Total Protein 5.0 L Albumin 3.1 L Lipase Total PSA TSH PTH Intact Calcium (PTH Intact) Urine Color Urine Appearance Urine pH Ur Specific [place] Urine Protein Urine Glucose (UA) Urine Ketones Urine Blood Urine Nitrite Ur Leukocyte Esterase Urine RBC Urine WBC Ur Squamous Epith Cells Urine Bacteria Urine Osmolality U Random Total Protein Ur Random Sodium Urine Creatinine Urine Opiates Screen Urine Fentanyl Screen Ur Barbiturates Screen Ur Phencyclidine Scrn Ur Amphetamines Screen U Benzodiazepines Scrn Urine Cocaine Screen U Marijuana (THC) Screen COVID-19 (MIMI) COVID-19 Clin Com Blood Type Antibody Screen Crossmatch 04/05/21 04/05/21 04/06/21 05:18 05:18 05:41 WBC 8.4 8.4 RBC 2.75 L 2.70 L Hgb 7.8 L 7.7 L Hct 22.8 L 22.8 L MCV 82.9 84.4 MCH 28.4 28.5 MCHC 34.2 33.8 RDW 14.5 14.1 Plt Count 205 184 MPV 10.9 10.1 Immature Gran % (Auto) Neut % (Auto) Lymph % (Auto) [place] % (Auto) Eos % (Auto) Baso % (Auto) Lymph # (Auto) [place] # (Auto) Eos # (Auto) Baso # (Auto) Abs Immat Gran (auto) Absolute Neuts (auto) Absolute Nucleated RBC 0.000 0.000 Nucleated RBC % (auto) 0.0 0.0 Smear Path Review PT INR APTT D-Dimer VBG pH VBG pCO2 VBG pO2 VBG HCO3 VBG O2 Saturation VBG Base Excess Sodium 138 Potassium 4.0 Chloride 101 Carbon Dioxide 19 L Anion Gap 22 H BUN 123 H* Creatinine 10.86 H* Estim Creat Clear Calc 6.0 Estimated GFR 5 Random Glucose Fasting Glucose 81 Osmolality Lactic Acid Calcium 4.6 L* D Phosphorus Magnesium Iron TIBC % Saturation Unsat Iron Binding Ferritin Total Bilirubin Direct Bilirubin AST ALT Alkaline Phosphatase Total Creatine Kinase Troponin I High Sens B-Natriuretic Peptide Total Protein Albumin Lipase Total PSA TSH PTH Intact Calcium (PTH Intact) Urine Color Urine Appearance Urine pH Ur Specific [place] Urine Protein Urine Glucose (UA) Urine Ketones Urine Blood Urine Nitrite Ur Leukocyte Esterase Urine RBC Urine WBC Ur Squamous Epith Cells Urine Bacteria Urine Osmolality U Random Total Protein Ur Random Sodium Urine Creatinine Urine Opiates Screen Urine Fentanyl Screen Ur Barbiturates Screen Ur Phencyclidine Scrn Ur Amphetamines Screen U Benzodiazepines Scrn Urine Cocaine Screen U Marijuana (THC) Screen COVID-19 ([facility]I) COVID-19 Clin Com Blood Type Antibody Screen Crossmatch 04/06/21 04/07/21 04/07/21 05:41 05:47 05:47 WBC 8.1 RBC 2.77 L Hgb 7.8 L Hct 23.5 L MCV 84.8 MCH 28.2 MCHC 33.2 RDW 13.9 Plt Count 187 MPV 10.9 Immature Gran % (Auto) Neut % (Auto) Lymph % (Auto) [place] % (Auto) Eos % (Auto) Baso % (Auto) Lymph # (Auto) [place] # (Auto) Eos # (Auto) Baso # (Auto) Abs Immat Gran (auto) Absolute Neuts (auto) Absolute Nucleated RBC 0.000 Nucleated RBC % (auto) 0.0 Smear Path Review PT INR APTT D-Dimer VBG pH VBG pCO2 VBG pO2 VBG HCO3 VBG O2 Saturation VBG Base Excess Sodium 138 139 Potassium 4.0 3.9 Chloride 103 105 Carbon Dioxide 21 L 19 L Anion Gap 18 19 BUN 117 H* 111 H* Creatinine 10.14 H* 9.26 H* Estim Creat Clear Calc 6.5 7.1 Estimated GFR 5 6 Random Glucose Fasting Glucose 93 114 H Osmolality Lactic Acid Calcium 4.8 L* 5.1 L* D Phosphorus Magnesium Iron TIBC % Saturation Unsat Iron Binding Ferritin Total Bilirubin Direct Bilirubin AST ALT Alkaline Phosphatase Total Creatine Kinase Troponin I High Sens B-Natriuretic Peptide Total Protein Albumin Lipase Total PSA TSH PTH Intact Calcium (PTH Intact) Urine Color Urine Appearance Urine pH Ur Specific [place] Urine Protein Urine Glucose (UA) Urine Ketones Urine Blood Urine Nitrite Ur Leukocyte Esterase Urine RBC Urine WBC Ur Squamous Epith Cells Urine Bacteria Urine Osmolality U Random Total Protein Ur Random Sodium Urine Creatinine Urine Opiates Screen Urine Fentanyl Screen Ur Barbiturates Screen Ur Phencyclidine Scrn Ur Amphetamines Screen U Benzodiazepines Scrn Urine Cocaine Screen U Marijuana (THC) Screen COVID-19 ([facility]) COVID-19 Clin Com Blood Type Antibody Screen Crossmatch Airway Mallampati Class: II TM Dist: >3cm Neck ROM: Full Loose/Missing/Broken Teeth: No Heart: RRR Lungs: CTA Assessment and Plan Assessment Anesthesia Assessment: Anesthesia Plan Discussed and Chart Reviewed Final Anesthetic Review History of Problems with Anesthesia: No NPO: Yes ASA Class: III Final Preanesthetic Review: Meds/Allgs Chart Reviewed, Consent Obtained/Reviewed and Anes Risks/Benef Reviewed Patient Risk: Intermediate Procedure Risk: Low Anesthetic Plan Anesthetic Plan: GA Disposition: Standard PACU
--- NOTE | 2021-04-07 16:53 | P.PNNP_ITS ---
Subjective Subjective Date of Service: 04/07/21 Interval history: Events noted. All recent data reviewed. D/W Med Attending Physical Exam Vital Signs: Vital Signs: Last Vital Signs Temp 97.9 F 04/07/21 16:18 Pulse 58 04/07/21 16:18 Resp 18 04/07/21 16:18 BP 158/74 H 04/07/21 16:18 Pulse Ox 99 04/07/21 16:18 Body Mass Index 26.8 Const: General: no acute distress Eyes: EOM: EOMs intact bilaterally Neck: Neck: Yes supple Resp: Auscultation: diminished lung sounds Cardio: Jugular venous distension: no JVD GI: Palpation (GI): Soft to palpation Neuro: General: moves all extremities Objective Data Labs CBC & Chem 7: 04/07/21 05:47 04/07/21 05:47 Labs: Laboratory Results - last 24 hr 04/07/21 04/07/21 05:47 05:47 WBC 8.1 RBC 2.77 L Hgb 7.8 L Hct 23.5 L MCV 84.8 MCH 28.2 MCHC 33.2 RDW 13.9 Plt Count 187 MPV 10.9 Absolute Nucleated RBC 0.000 Nucleated RBC % (auto) 0.0 Sodium 139 Potassium 3.9 Chloride 105 Carbon Dioxide 19 L Anion Gap 19 BUN 111 H* Creatinine 9.26 H* Estim Creat Clear Calc 7.1 Estimated GFR 6 Fasting Glucose 114 H Calcium 5.1 L* D Microbiology Microbiology Results: Microbiology 04/01/21 20:05 Urine Catheterized - Zheng Catheter Urine Culture - Final No growth. Procedures Date of Service Date of Service: 04/07/21 Assessment & Plan Assessment and plan (1) Acute kidney injury: Status: Acute Assessment and Plan: 61 year old male presented with AMS, found to have MEGHAN on CKD V, anemia, hypo calcemia, metabolic acidosis metabolic encephalopathy due to MEGHAN on CKD V obstructive; For stent insertion today if no ipmrovement needs bilateral nephrostomy No indication for renal replacement therapy today Labs AM. Shall closely follow up Time Spent With Patient Time: Total time spent is greater than 50% in coordination of care (as documented) at patient's floor/unit and/or counseling patient: Progress Note: Quality Stroke Does the patient have a stroke diagnosis?: No
--- NOTE | 2021-04-07 17:13 | HO.PM.IMPN ---
Subjective Subjective Date of Service: 04/07/21 Interval History: Offers no acute complaints, is NPO for cystoscopy and stent placement later this afternoon by Dr. Restrepo. Review of Systems General no headache, no dizziness, no fever chills. CVS no chest pain, no palpitation. Respiratory no cough, no sob. Gastrointestinal no nausea, no vomiting, no abdominal pain Physical Exam Vital Signs: Vital Signs: Last Vital Signs Temp 97.9 F 04/07/21 16:18 Pulse 58 04/07/21 16:18 Resp 18 04/07/21 16:18 BP 158/74 H 04/07/21 16:18 Pulse Ox 99 04/07/21 16:18 Body Mass Index 26.8 General no acute distress. Neck supple no JVD. CVS regular rate rhythm, Respiratory lungs clear to auscultation, no respiratory distress Gastrointestinal abdomen soft, nontender, bowel sounds audible Extremities no edema. Neuro nonfocal , speech clear. Skin no rash Psych appropriate affect Objective Data Active Medications Albuterol Sulfate (Albuterol Sulfate (0.083%) 2.5 Mg/3 Ml Vial.Neb) 2.5 mg INHALE ONCE PRN PRN Reason: Wheezing Calcium Carbonate (Calcium Carbonate 750 Mg Tab.Chew) 750 mg PO Q6H FREIDA Last Admin: 04/07/21 08:59 Dose: 750 mg Documented by: BEHZAD Fentanyl (Fentanyl Citrate/Pf 100 Mcg/2 Ml Vial) 25 mcg IVPUSH Q5M PRN; Protocol PRN Reason: Pain, Moderate (Pain Scale 4-6 Melatonin (Melatonin 3 Mg Tablet) 6 mg PO BEDTIME PRN PRN Reason: Insomnia Last Admin: 04/06/21 19:51 Dose: 6 mg Documented by: JOHANN Ondansetron HCl (Ondansetron Hcl 4 Mg/2 Ml Vial) 4 mg IVPUSH ONCE PRN PRN Reason: Nausea and Vomiting Oxycodone HCl (Oxycodone Hcl Immed Release 5 Mg Tablet) 5 mg PO ONCE PRN PRN Reason: Pain, Severe (Pain Scale 7-10) Pharmacy Consult (Consult Rx Perform Med Rec) 1 each MISCELLANE ONCE PRN PRN Reason: Consult order Sodium Chloride (Sodium Chloride 0.65 % Nasal 44 Ml Sprbtl) 1 spray NOSTRIL-B Q1H PRN PRN Reason: Congestion Vitamin D (Cholecalciferol (Vitamin D3) 25 Mcg Tablet) 50 mcg PO DAILY FREIDA Last Admin: 04/07/21 08:59 Dose: 50 mcg Documented by: BEHZAD Labs CBC & Chem 7: 04/07/21 05:47 04/07/21 05:47 Labs: Laboratory Results - last 24 hr 04/07/21 04/07/21 05:47 05:47 MCV 84.8 MCH 28.2 MCHC 33.2 RDW 13.9 Plt Count 187 MPV 10.9 Absolute Nucleated RBC 0.000 Nucleated RBC % (auto) 0.0 Anion Gap 19 Estim Creat Clear Calc 7.1 Estimated GFR 6 Fasting Glucose 114 H Calcium 5.1 L* D Assessment and Plan (1) CKD (chronic kidney disease) stage 5, GFR less than 15 ml/min: Status: Acute (2) Anemia: Status: Acute (3) Hypokalemia: Status: Acute (4) Metabolic acidosis: Status: Acute (5) Bilateral hydronephrosis: Status: Acute (6) Acute kidney injury: Status: Acute (7) Acute anemia: Status: Acute (8) Hypocalcemia: Status: Acute Assessment and Plan: 61M presented with ams, found to have MEGHAN on CKD V, anemia, hypocalcemia, metabolic acidosis, was admitted to ICU, victor placed, given IV fluids, downgraded to medical floor 04/02/21 metabolic encephalopathy due to MEGHAN on CKD complicated by metabolic acidosis Confusion resolved, acidosis improved, creatinine gradually trending down Likely obstructive uropathy will continue Victor, patient will undergo go cystoscopy and bilateral stent placement later this afternoon by Dr. Restrepo Nephro recommend to continue current treatment Follow BMP at a.m. anemia likely due to kidney disease transfused 1 unit prbc on 04/03, hgb improved from 6.5 to 7.8, and remain stable today hypocalcemia with sclerotic bone lesions seen on CT likely due to long standing secondary hyperparathyroid from CKD nephro following Continue calcium and vit D supplement should rule out metastatic prostate cancer with elevated PSA 22, follow up with outpatient hypokalemia resolved VTE prphylaxis - mechanical due to significant anemia Quality Stroke Does the patient have a stroke diagnosis?: No VTE Prior VTE?: No VTE Risk Level:: Medical - moderate - high VTE Device Contraindication: N/A - Device Ordered VTE Drug Contraindication: N/A - Med Ordered
--- NOTE | 2021-04-07 19:03 | HO.ANESPROP2 ---
[facility] Active Problems Active Problems: All Active Problems (Updated 04/03/21 @ 14:18 by Zach Riuz MD) CKD (chronic kidney disease) stage 5, GFR less than 15 ml/min (Acute) Anemia (Acute) Hypokalemia (Acute) Metabolic acidosis (Acute) Bilateral hydronephrosis (Acute) Acute kidney injury (Acute) Acute anemia (Acute) Hypocalcemia (Acute) Past Medical History Functional capacity: independent ambulation Family History Family history of problems with anesthesia: No Surgical History History of Problems with Anesthesia: No Social History Social History Household Members: None Housing: Other Housing Other:: mobile home Do you presently have visiting nurse or other home services: No Patient Tobacco Use Status: Former Tobacco user Tobacco use type: Cigarette Smoked in Last 30 Days: No e-Cigarette/Vaping Use: Former Use Use of substances other than those prescribed or required for medical reasons: Yes Substance Use Frequency: Daily Currently Displaying Signs/Symptoms of Drug Intoxication Withdrawal: No Have you been hit, kicked, punched, or otherwise hurt by someone within the past year? If so, by whom?: No Do you feel safe in your current relationship?: No Current Relationship Is there a partner from a previous relationship who is making you feel unsafe now?: No Are you made to feel afraid or neglected: No Are you DNR?: No Advance Directives: No Advance Directives Information Provided: Yes Do you have thoughts of harming others: None Do you have a plan to hurt others: No Plan Recently lost weight without trying: Yes How much weight loss: 2-13 pounds Eating poorly because of decreased appetite: No Nutrition screen score: 3 Nutrition Risks: No Nutritional Risk Poor oral hygiene: No service: No Current occupational status: disabled Meds Allergies Allergy/AdvReac Type Severity Reaction Status Date / Time No Known Allergies Allergy Unverified 04/17/20 18:44 [No Known Allergies*] Active Medications: Current Medications Generic Name Dose Route Start Last Admin Trade Name Freq PRN Reason Stop Dose Admin Albuterol Sulfate 2.5 mg 04/07/21 17:07 Albuterol Sulfate (0.083%) 2.5 Mg/3 Ml Vial.Neb INHALE ONCE PRN Wheezing Calcium Carbonate 750 mg 04/03/21 09:15 09/07/21 08:59 Calcium Carbonate 750 Mg Tab.Chew PO 750 mg Q6H FREIDA Administration Fentanyl 25 mcg 04/07/21 17:07 Fentanyl Citrate/Pf 100 Mcg/2 Ml Vial IVPUSH Q5M PRN Pain, Moderate (Pain Scale 4-6 Protocol Melatonin 6 mg 04/02/21 22:18 04/06/21 19:51 Melatonin 3 Mg Tablet PO 6 mg BEDTIME PRN Administration Insomnia Ondansetron HCl 4 mg 04/07/21 17:07 Ondansetron Hcl 4 Mg/2 Ml Vial IVPUSH ONCE PRN Nausea and Vomiting Oxycodone HCl 5 mg 04/07/21 17:07 Oxycodone Hcl Immed Release 5 Mg Tablet PO ONCE PRN Pain, Severe (Pain Scale 7-10) Pharmacy Consult 1 each 04/01/21 21:54 Consult Rx Perform Med Rec MISCELLANE ONCE PRN Consult order Sodium Chloride 1 spray 04/03/21 05:58 Sodium Chloride 0.65 % Nasal 44 Ml Sprbtl NOSTRIL-B Q1H PRN Congestion Vitamin D 50 mcg 04/06/21 09:00 04/07/21 08:59 Cholecalciferol (Vitamin D3) 25 Mcg Tablet PO 50 mcg DAILY FREIDA Administration Home Medications Medication Instructions Recorded Confirmed Last Taken Type xsszrrrv-lwz-dvezg acid 300 1 tab PO DAILY 04/01/21 04/01/21 03/31/21 History mcg-lycopene 600 mcg-lutein 300 mcg tablet (Centrum Silver Men) Exam Exam Date and Time: April 07, 2021 190 Height,Weight and Vital Signs: Height 5 ft 2 in Weight 66.5 kg Last Vital Signs Temp 97.9 F 04/07/21 16:18 Pulse 58 04/07/21 16:18 Resp 18 04/07/21 16:18 BP 158/74 H 04/07/21 16:18 Pulse Ox 99 04/07/21 16:18 Pertinent Lab Results Pertinent Lab Results: Laboratory Tests 04/01/21 04/01/21 04/01/21 18:02 18:02 18:03 WBC 7.1 RBC 2.13 L Hgb 5.9 L* Hct 16.3 L* MCV 76.5 L MCH 27.7 MCHC 36.2 H RDW 14.0 Plt Count 271 MPV 10.7 Immature Gran % (Auto) 0.8 H Neut % (Auto) 83.7 H Lymph % (Auto) 7.5 L [place] % (Auto) 7.2 Eos % (Auto) 0.4 Baso % (Auto) 0.4 Lymph # (Auto) 0.5 L [place] # (Auto) 0.5 Eos # (Auto) 0.0 Baso # (Auto) 0.0 Abs Immat Gran (auto) 0.06 H Absolute Neuts (auto) 5.9 Absolute Nucleated RBC 0.000 Nucleated RBC % (auto) 0.0 Smear Path Review SEE NOTE PT INR APTT D-Dimer VBG pH VBG pCO2 VBG pO2 VBG HCO3 VBG O2 Saturation VBG Base Excess Sodium Potassium Chloride Carbon Dioxide Anion Gap BUN Creatinine Estim Creat Clear Calc Estimated GFR Random Glucose Fasting Glucose Osmolality Lactic Acid Calcium Phosphorus Magnesium Iron TIBC % Saturation Unsat Iron Binding Ferritin Total Bilirubin Direct Bilirubin AST ALT Alkaline Phosphatase Total Creatine Kinase Troponin I High Sens B-Natriuretic Peptide 67 Total Protein Albumin Lipase Total PSA TSH 2.29 PTH Intact Calcium (PTH Intact) Urine Color Urine Appearance Urine pH Ur Specific [place] Urine Protein Urine Glucose (UA) Urine Ketones Urine Blood Urine Nitrite Ur Leukocyte Esterase Urine RBC Urine WBC Ur Squamous Epith Cells Urine Bacteria Urine Osmolality U Random Total Protein Ur Random Sodium Urine Creatinine Urine Opiates Screen Urine Fentanyl Screen Ur Barbiturates Screen Ur Phencyclidine Scrn Ur Amphetamines Screen U Benzodiazepines Scrn Urine Cocaine Screen U Marijuana (THC) Screen COVID-19 ([facility]) COVID-19 Clin Com Blood Type Antibody Screen Crossmatch 04/01/21 04/01/21 04/01/21 18:03 18:03 18:03 WBC RBC Hgb Hct MCV MCH MCHC RDW Plt Count MPV Immature Gran % (Auto) Neut % (Auto) Lymph % (Auto) [place] % (Auto) Eos % (Auto) Baso % (Auto) Lymph # (Auto) [place] # (Auto) Eos # (Auto) Baso # (Auto) Abs Immat Gran (auto) Absolute Neuts (auto) Absolute Nucleated RBC Nucleated RBC % (auto) Smear Path Review PT 12.5 INR 1.1 APTT 31.8 D-Dimer 1692 VBG pH VBG pCO2 VBG pO2 VBG HCO3 VBG O2 Saturation VBG Base Excess Sodium 127 L Potassium 3.9 Chloride 96 Carbon Dioxide 6 L* Anion Gap 29 H BUN 165 H* Creatinine 14.63 H* Estim Creat Clear Calc 4.6 Estimated GFR 3 Random Glucose 128 H Fasting Glucose Osmolality Lactic Acid Calcium 5.0 L* Phosphorus Magnesium Iron 140 TIBC 175 L % Saturation 80 H Unsat Iron Binding 35 Ferritin Total Bilirubin 0.6 Direct Bilirubin AST 4 L ALT 7 Alkaline Phosphatase 87 Total Creatine Kinase 910 H Troponin I High Sens B-Natriuretic Peptide Total Protein 6.8 Albumin 4.3 Lipase 171 H Total PSA TSH PTH Intact Calcium (PTH Intact) Urine Color Urine Appearance Urine pH Ur Specific [place] Urine Protein Urine Glucose (UA) Urine Ketones Urine Blood Urine Nitrite Ur Leukocyte Esterase Urine RBC Urine WBC Ur Squamous Epith Cells Urine Bacteria Urine Osmolality U Random Total Protein Ur Random Sodium Urine Creatinine Urine Opiates Screen Urine Fentanyl Screen Ur Barbiturates Screen Ur Phencyclidine Scrn Ur Amphetamines Screen U Benzodiazepines Scrn Urine Cocaine Screen U Marijuana (THC) Screen COVID-19 ([facility]) Negative COVID-19 Clin Com See Note Blood Type Antibody Screen Crossmatch 04/01/21 04/01/21 04/01/21 18:03 18:03 18:07 WBC RBC Hgb Hct MCV MCH MCHC RDW Plt Count MPV Immature Gran % (Auto) Neut % (Auto) Lymph % (Auto) [place] % (Auto) Eos % (Auto) Baso % (Auto) Lymph # (Auto) [place] # (Auto) Eos # (Auto) Baso # (Auto) Abs Immat Gran (auto) Absolute Neuts (auto) Absolute Nucleated RBC Nucleated RBC % (auto) Smear Path Review PT INR APTT D-Dimer VBG pH VBG pCO2 VBG pO2 VBG HCO3 VBG O2 Saturation VBG Base Excess Sodium Potassium Chloride Carbon Dioxide Anion Gap BUN Creatinine Estim Creat Clear Calc Estimated GFR Random Glucose Fasting Glucose Osmolality 332 H Lactic Acid Calcium Phosphorus Magnesium Iron TIBC % Saturation Unsat Iron Binding Ferritin Total Bilirubin Direct Bilirubin AST ALT Alkaline Phosphatase Total Creatine Kinase Troponin I High Sens 18.6 B-Natriuretic Peptide Total Protein Albumin Lipase Total PSA TSH PTH Intact Calcium (PTH Intact) Urine Color Urine Appearance Urine pH Ur Specific [place] Urine Protein Urine Glucose (UA) Urine Ketones Urine Blood Urine Nitrite Ur Leukocyte Esterase Urine RBC Urine WBC Ur Squamous Epith Cells Urine Bacteria Urine Osmolality U Random Total Protein Ur Random Sodium Urine Creatinine Urine Opiates Screen Urine Fentanyl Screen Ur Barbiturates Screen Ur Phencyclidine Scrn Ur Amphetamines Screen U Benzodiazepines Scrn Urine Cocaine Screen U Marijuana (THC) Screen COVID-19 ([facility]) COVID-19 Clin Com Blood Type A Positive Antibody Screen NEGATIVE Crossmatch See Detail 04/01/21 04/01/21 04/01/21 18:28 19:52 19:52 WBC RBC Hgb Hct MCV MCH MCHC RDW Plt Count MPV Immature Gran % (Auto) Neut % (Auto) Lymph % (Auto) [place] % (Auto) Eos % (Auto) Baso % (Auto) Lymph # (Auto) [place] # (Auto) Eos # (Auto) Baso # (Auto) Abs Immat Gran (auto) Absolute Neuts (auto) Absolute Nucleated RBC Nucleated RBC % (auto) Smear Path Review PT INR APTT D-Dimer VBG pH VBG pCO2 VBG pO2 VBG HCO3 VBG O2 Saturation VBG Base Excess Sodium Potassium Chloride Carbon Dioxide Anion Gap BUN Creatinine Estim Creat Clear Calc Estimated GFR Random Glucose Fasting Glucose Osmolality Lactic Acid 0.7 0.6 Calcium Phosphorus Magnesium Iron TIBC % Saturation Unsat Iron Binding Ferritin Total Bilirubin Direct Bilirubin AST ALT Alkaline Phosphatase Total Creatine Kinase Troponin I High Sens B-Natriuretic Peptide Total Protein Albumin Lipase Total PSA TSH PTH Intact 282 H Calcium (PTH Intact) 5.0 Urine Color Urine Appearance Urine pH Ur Specific [place] Urine Protein Urine Glucose (UA) Urine Ketones Urine Blood Urine Nitrite Ur Leukocyte Esterase Urine RBC Urine WBC Ur Squamous Epith Cells Urine Bacteria Urine Osmolality U Random Total Protein Ur Random Sodium Urine Creatinine Urine Opiates Screen Urine Fentanyl Screen Ur Barbiturates Screen Ur Phencyclidine Scrn Ur Amphetamines Screen U Benzodiazepines Scrn Urine Cocaine Screen U Marijuana (THC) Screen COVID-19 ([facility]) COVID-19 Clin Com Blood Type Antibody Screen Crossmatch 04/01/21 04/01/21 04/01/21 19:52 19:52 19:52 WBC RBC Hgb Hct MCV MCH MCHC RDW Plt Count MPV Immature Gran % (Auto) Neut % (Auto) Lymph % (Auto) [place] % (Auto) Eos % (Auto) Baso % (Auto) Lymph # (Auto) [place] # (Auto) Eos # (Auto) Baso # (Auto) Abs Immat Gran (auto) Absolute Neuts (auto) Absolute Nucleated RBC Nucleated RBC % (auto) Smear Path Review PT INR APTT D-Dimer VBG pH VBG pCO2 VBG pO2 VBG HCO3 VBG O2 Saturation VBG Base Excess Sodium Potassium Chloride Carbon Dioxide Anion Gap BUN Creatinine Estim Creat Clear Calc Estimated GFR Random Glucose Fasting Glucose Osmolality Lactic Acid Calcium Phosphorus Magnesium Iron TIBC % Saturation Unsat Iron Binding Ferritin Total Bilirubin Direct Bilirubin AST ALT Alkaline Phosphatase Total Creatine Kinase Troponin I High Sens B-Natriuretic Peptide Total Protein Albumin Lipase Total PSA TSH PTH Intact Calcium (PTH Intact) Urine Color YELLOW Urine Appearance CLEAR Urine pH 6.0 Ur Specific [place] 1.010 Urine Protein 1+ H Urine Glucose (UA) 100 H Urine Ketones NEG Urine Blood 2+ H Urine Nitrite NEG Ur Leukocyte Esterase 1+ H Urine RBC 1-4 Urine WBC 1-4 Ur Squamous Epith Cells NONE Urine Bacteria 1+ Urine Osmolality 251 L U Random Total Protein 33 H Ur Random Sodium 35.0 Urine Creatinine 63.03 Urine Opiates Screen Urine Fentanyl Screen Ur Barbiturates Screen Ur Phencyclidine Scrn Ur Amphetamines Screen U Benzodiazepines Scrn Urine Cocaine Screen U Marijuana (THC) Screen COVID-19 ([facility]) COVID-19 Clin Com Blood Type Antibody Screen Crossmatch 04/01/21 04/01/21 04/01/21 19:52 21:32 21:32 WBC 7.2 RBC 2.14 L Hgb 5.9 L* Hct 16.4 L* MCV 76.6 L MCH 27.6 MCHC 36.0 RDW 14.3 Plt Count 272 MPV 10.8 Immature Gran % (Auto) 0.6 H Neut % (Auto) 84.9 H Lymph % (Auto) 6.9 L [place] % (Auto) 6.9 Eos % (Auto) 0.4 Baso % (Auto) 0.3 Lymph # (Auto) 0.5 L [place] # (Auto) 0.5 Eos # (Auto) 0.0 Baso # (Auto) 0.0 Abs Immat Gran (auto) 0.04 H Absolute Neuts (auto) 6.2 Absolute Nucleated RBC 0.000 Nucleated RBC % (auto) 0.0 Smear Path Review PT INR APTT D-Dimer VBG pH VBG pCO2 VBG pO2 VBG HCO3 VBG O2 Saturation VBG Base Excess Sodium 128 L Potassium 4.1 Chloride 97 Carbon Dioxide 6 L* Anion Gap 29 H BUN 164 H* Creatinine 14.66 H* Estim Creat Clear Calc 4.6 Estimated GFR 3 Random Glucose 113 Fasting Glucose Osmolality Lactic Acid Calcium 5.2 L* Phosphorus Magnesium 1.7 Iron TIBC % Saturation Unsat Iron Binding Ferritin Total Bilirubin 0.6 Direct Bilirubin AST 3 L ALT 7 Alkaline Phosphatase 85 Total Creatine Kinase Troponin I High Sens B-Natriuretic Peptide Total Protein 6.7 Albumin 4.3 Lipase Total PSA TSH PTH Intact Calcium (PTH Intact) Urine Color Urine Appearance Urine pH Ur Specific [place] Urine Protein Urine Glucose (UA) Urine Ketones Urine Blood Urine Nitrite Ur Leukocyte Esterase Urine RBC Urine WBC Ur Squamous Epith Cells Urine Bacteria Urine Osmolality U Random Total Protein Ur Random Sodium Urine Creatinine Urine Opiates Screen Not Detected Urine Fentanyl Screen Not Detected Ur Barbiturates Screen Not Detected Ur Phencyclidine Scrn Not Detected Ur Amphetamines Screen Not Detected U Benzodiazepines Scrn Not Detected Urine Cocaine Screen Not Detected U Marijuana (THC) Screen Not Detected COVID-19 ([facility]) COVID-19 Clin Com Blood Type Antibody Screen Crossmatch 04/01/21 04/02/21 04/02/21 21:38 05:14 05:14 WBC 8.5 RBC 2.58 L D Hgb 7.5 L D Hct 20.8 L* D MCV 80.6 MCH 29.1 MCHC 36.1 H RDW 17.3 H Plt Count 232 MPV 10.6 Immature Gran % (Auto) 0.9 H Neut % (Auto) 80.0 H Lymph % (Auto) 8.6 L [place] % (Auto) 9.6 Eos % (Auto) 0.5 Baso % (Auto) 0.4 Lymph # (Auto) 0.7 L [place] # (Auto) 0.8 Eos # (Auto) 0.0 Baso # (Auto) 0.0 Abs Immat Gran (auto) 0.08 H Absolute Neuts (auto) 6.8 Absolute Nucleated RBC 0.000 Nucleated RBC % (auto) 0.0 Smear Path Review PT INR APTT D-Dimer VBG pH 7.13 L* VBG pCO2 13 VBG pO2 69 VBG HCO3 4 L VBG O2 Saturation 88.0 VBG Base Excess -22.0 Sodium 131 L Potassium 3.3 Chloride 101 Carbon Dioxide 8 L* D Anion Gap 25 H BUN 154 H* Creatinine 12.95 H* Estim Creat Clear Calc 5.3 Estimated GFR 4 Random Glucose 115 Fasting Glucose Osmolality Lactic Acid Calcium 4.9 L* Phosphorus 12.0 H Magnesium Iron TIBC % Saturation Unsat Iron Binding Ferritin 612 H Total Bilirubin 1.4 H Direct Bilirubin AST 3 L ALT < 6 Alkaline Phosphatase 77 Total Creatine Kinase Troponin I High Sens B-Natriuretic Peptide Total Protein 5.5 L Albumin 3.5 Lipase Total PSA TSH PTH Intact Calcium (PTH Intact) Urine Color Urine Appearance Urine pH Ur Specific [place] Urine Protein Urine Glucose (UA) Urine Ketones Urine Blood Urine Nitrite Ur Leukocyte Esterase Urine RBC Urine WBC Ur Squamous Epith Cells Urine Bacteria Urine Osmolality U Random Total Protein Ur Random Sodium Urine Creatinine Urine Opiates Screen Urine Fentanyl Screen Ur Barbiturates Screen Ur Phencyclidine Scrn Ur Amphetamines Screen U Benzodiazepines Scrn Urine Cocaine Screen U Marijuana (THC) Screen COVID-19 ([facility]) COVID-19 Clin Com Blood Type Antibody Screen Crossmatch 04/03/21 04/03/21 04/03/21 05:32 05:32 14:49 WBC 7.3 RBC 2.33 L Hgb 6.5 L* Hct 17.9 L* MCV 76.8 L MCH 27.9 MCHC 36.3 H RDW 14.9 Plt Count 222 MPV 10.3 Immature Gran % (Auto) 0.8 H Neut % (Auto) 79.5 H Lymph % (Auto) 8.6 L [place] % (Auto) 9.7 Eos % (Auto) 1.0 Baso % (Auto) 0.4 Lymph # (Auto) 0.6 L [place] # (Auto) 0.7 Eos # (Auto) 0.1 Baso # (Auto) 0.0 Abs Immat Gran (auto) 0.06 H Absolute Neuts (auto) 5.8 Absolute Nucleated RBC 0.000 Nucleated RBC % (auto) 0.0 Smear Path Review PT INR APTT D-Dimer VBG pH VBG pCO2 VBG pO2 VBG HCO3 VBG O2 Saturation VBG Base Excess Sodium 135 Potassium 2.6 L D Chloride 94 L Carbon Dioxide 20 L Anion Gap 24 H BUN 146 H* Creatinine 11.86 H* Estim Creat Clear Calc 5.5 Estimated GFR 4 Random Glucose 130 H Fasting Glucose Osmolality Lactic Acid Calcium 4.5 L* D Phosphorus Magnesium Iron 72 TIBC 152 L % Saturation 47 Unsat Iron Binding 80 Ferritin Total Bilirubin 0.7 Direct Bilirubin 0.2 AST 3 L ALT < 6 Alkaline Phosphatase 66 Total Creatine Kinase Troponin I High Sens B-Natriuretic Peptide Total Protein 4.7 L Albumin 3.1 L Lipase Total PSA 23.38 H TSH PTH Intact Calcium (PTH Intact) Urine Color Urine Appearance Urine pH Ur Specific [place] Urine Protein Urine Glucose (UA) Urine Ketones Urine Blood Urine Nitrite Ur Leukocyte Esterase Urine RBC Urine WBC Ur Squamous Epith Cells Urine Bacteria Urine Osmolality U Random Total Protein Ur Random Sodium Urine Creatinine Urine Opiates Screen Urine Fentanyl Screen Ur Barbiturates Screen Ur Phencyclidine Scrn Ur Amphetamines Screen U Benzodiazepines Scrn Urine Cocaine Screen U Marijuana (THC) Screen COVID-19 ([facility]) COVID-19 Clin Com Blood Type Antibody Screen Crossmatch 04/04/21 04/04/21 04/04/21 05:10 05:10 14:50 WBC 8.7 RBC 2.73 L Hgb 7.8 L Hct 22.2 L D MCV 81.3 MCH 28.6 MCHC 35.1 RDW 14.6 Plt Count 205 MPV 10.9 Immature Gran % (Auto) Neut % (Auto) Lymph % (Auto) [place] % (Auto) Eos % (Auto) Baso % (Auto) Lymph # (Auto) [place] # (Auto) Eos # (Auto) Baso # (Auto) Abs Immat Gran (auto) Absolute Neuts (auto) Absolute Nucleated RBC 0.000 Nucleated RBC % (auto) 0.0 Smear Path Review PT INR APTT D-Dimer VBG pH VBG pCO2 VBG pO2 VBG HCO3 VBG O2 Saturation VBG Base Excess Sodium 136 136 Potassium 2.9 L 3.7 D Chloride 95 L 98 Carbon Dioxide 22 20 L Anion Gap 22 H 22 H BUN 134 H* 131 H* Creatinine 11.12 H* 10.74 H* Estim Creat Clear Calc 5.9 6.1 Estimated GFR 5 5 Random Glucose 154 H Fasting Glucose 103 H Osmolality Lactic Acid Calcium 4.4 L* 4.3 L* Phosphorus Magnesium Iron TIBC % Saturation Unsat Iron Binding Ferritin Total Bilirubin 0.9 Direct Bilirubin 0.3 AST 3 L ALT < 6 Alkaline Phosphatase 69 Total Creatine Kinase Troponin I High Sens B-Natriuretic Peptide Total Protein 5.0 L Albumin 3.1 L Lipase Total PSA TSH PTH Intact Calcium (PTH Intact) Urine Color Urine Appearance Urine pH Ur Specific [place] Urine Protein Urine Glucose (UA) Urine Ketones Urine Blood Urine Nitrite Ur Leukocyte Esterase Urine RBC Urine WBC Ur Squamous Epith Cells Urine Bacteria Urine Osmolality U Random Total Protein Ur Random Sodium Urine Creatinine Urine Opiates Screen Urine Fentanyl Screen Ur Barbiturates Screen Ur Phencyclidine Scrn Ur Amphetamines Screen U Benzodiazepines Scrn Urine Cocaine Screen U Marijuana (THC) Screen COVID-19 ([facility]) COVID-19 Clin Com Blood Type Antibody Screen Crossmatch 04/05/21 04/05/21 04/06/21 05:18 05:18 05:41 WBC 8.4 8.4 RBC 2.75 L 2.70 L Hgb 7.8 L 7.7 L Hct 22.8 L 22.8 L MCV 82.9 84.4 MCH 28.4 28.5 MCHC 34.2 33.8 RDW 14.5 14.1 Plt Count 205 184 MPV 10.9 10.1 Immature Gran % (Auto) Neut % (Auto) Lymph % (Auto) [place] % (Auto) Eos % (Auto) Baso % (Auto) Lymph # (Auto) [place] # (Auto) Eos # (Auto) Baso # (Auto) Abs Immat Gran (auto) Absolute Neuts (auto) Absolute Nucleated RBC 0.000 0.000 Nucleated RBC % (auto) 0.0 0.0 Smear Path Review PT INR APTT D-Dimer VBG pH VBG pCO2 VBG pO2 VBG HCO3 VBG O2 Saturation VBG Base Excess Sodium 138 Potassium 4.0 Chloride 101 Carbon Dioxide 19 L Anion Gap 22 H BUN 123 H* Creatinine 10.86 H* Estim Creat Clear Calc 6.0 Estimated GFR 5 Random Glucose Fasting Glucose 81 Osmolality Lactic Acid Calcium 4.6 L* D Phosphorus Magnesium Iron TIBC % Saturation Unsat Iron Binding Ferritin Total Bilirubin Direct Bilirubin AST ALT Alkaline Phosphatase Total Creatine Kinase Troponin I High Sens B-Natriuretic Peptide Total Protein Albumin Lipase Total PSA TSH PTH Intact Calcium (PTH Intact) Urine Color Urine Appearance Urine pH Ur Specific [place] Urine Protein Urine Glucose (UA) Urine Ketones Urine Blood Urine Nitrite Ur Leukocyte Esterase Urine RBC Urine WBC Ur Squamous Epith Cells Urine Bacteria Urine Osmolality U Random Total Protein Ur Random Sodium Urine Creatinine Urine Opiates Screen Urine Fentanyl Screen Ur Barbiturates Screen Ur Phencyclidine Scrn Ur Amphetamines Screen U Benzodiazepines Scrn Urine Cocaine Screen U Marijuana (THC) Screen COVID-19 ([facility]) COVID-19 Clin Com Blood Type Antibody Screen Crossmatch 04/06/21 04/07/21 04/07/21 05:41 05:47 05:47 WBC 8.1 RBC 2.77 L Hgb 7.8 L Hct 23.5 L MCV 84.8 MCH 28.2 MCHC 33.2 RDW 13.9 Plt Count 187 MPV 10.9 Immature Gran % (Auto) Neut % (Auto) Lymph % (Auto) [place] % (Auto) Eos % (Auto) Baso % (Auto) Lymph # (Auto) [place] # (Auto) Eos # (Auto) Baso # (Auto) Abs Immat Gran (auto) Absolute Neuts (auto) Absolute Nucleated RBC 0.000 Nucleated RBC % (auto) 0.0 Smear Path Review PT INR APTT D-Dimer VBG pH VBG pCO2 VBG pO2 VBG HCO3 VBG O2 Saturation VBG Base Excess Sodium 138 139 Potassium 4.0 3.9 Chloride 103 105 Carbon Dioxide 21 L 19 L Anion Gap 18 19 BUN 117 H* 111 H* Creatinine 10.14 H* 9.26 H* Estim Creat Clear Calc 6.5 7.1 Estimated GFR 5 6 Random Glucose Fasting Glucose 93 114 H Osmolality Lactic Acid Calcium 4.8 L* 5.1 L* D Phosphorus Magnesium Iron TIBC % Saturation Unsat Iron Binding Ferritin Total Bilirubin Direct Bilirubin AST ALT Alkaline Phosphatase Total Creatine Kinase Troponin I High Sens B-Natriuretic Peptide Total Protein Albumin Lipase Total PSA TSH PTH Intact Calcium (PTH Intact) Urine Color Urine Appearance Urine pH Ur Specific [place] Urine Protein Urine Glucose (UA) Urine Ketones Urine Blood Urine Nitrite Ur Leukocyte Esterase Urine RBC Urine WBC Ur Squamous Epith Cells Urine Bacteria Urine Osmolality U Random Total Protein Ur Random Sodium Urine Creatinine Urine Opiates Screen Urine Fentanyl Screen Ur Barbiturates Screen Ur Phencyclidine Scrn Ur Amphetamines Screen U Benzodiazepines Scrn Urine Cocaine Screen U Marijuana (THC) Screen COVID-19 ([facility]) COVID-19 Clin Com Blood Type Antibody Screen Crossmatch Assessment and Plan Final Anesthetic Review Family History of Problems with Anesthesia: No History of Problems with Anesthesia: No
--- NOTE | 2021-04-07 19:13 | MHC.SHP ---
Pre-Procedural Eval Section A Date of Service: 04/07/21 Section B Chief Complaint: MEGHAN, Met acidosis Details of Present Illness: bilateral hydronephrosis Relevant Family History (Specify if Yes): No Relevant Social History: None Present Medications: see Short Stay Collaborative assessment Medical History: Significant History History of Previous Operations: No relevant previous surgery Allergies: Allergies Allergy/AdvReac Type Severity Reaction Status Date / Time No Known Allergies Allergy Unverified 04/17/20 18:44 [No Known Allergies*] Review of Systems Sugical H&P ROS: Negative: Constitution, Cardiovascular, Respiratory, Neurological, Psychiatric, Hem-Onc, Allergic/Immunologic, Gastrointestinal, Genitourinary, Musculoskeletal, Integumentary, Endocrine and Eyes/Ears/Nose/Throat Exam Surgical H&P Exam: Normal: HEENT, Normal: Heart, Normal: Lungs, Normal: Extremities, Normal: Abdomen, Normal: Skin and Normal: Neurological Plan Diagnosis/Plan: Unchanged (bilateral retrogrades, bilateral stents) I have reviewed the history and physical and performed a pertinent physical examination on my patient. No changes have occurred unless specified.
--- NOTE | 2021-04-07 20:23 | W.PM.OPN ---
Operative Note Operative Note Date of Service: 04/07/21 Narrative: PreOperative Diagnosis: Bilateral hydronephrosis Post Operative Diagnosis: Bilateral hydronephrosis with J hooking Procedure: 1. Bilateral retrograde, 2. Bilateral stent placement modifier 22 200% longer than typical Surgeon: Dr Trevor Restrepo Anesthesia: General Indications for procedure: 61-year-old male. Admitted with creatinine of 12. Had declined to 9 during a 5 day period. Zheng catheter had been placed. Concerned that there was J hooking from lower urinary tract obstruction. Nephrology would like to try stenting. This will be attempted. PSA is 24 suggestive of prostate cancer. Procedure: After informed consent was verified the patient was brought to the operating room and placed in a supine position. Anesthesia was administered per protocol. Safety pause time-out was performed. Antibiotics being given. The patient was placed in modified dorsal lithotomy position and prepped and draped in sterile fashion. Twenty-two [place] cystoscope inserted per urethra. No abnormality noted the anterior posterior urethra. Prostatic fossa appeared to be dense consistent with a potential for prostate cancer. Bladder was trabeculated significantly and very difficult to locate the right ureteric orifice. Ureteric orifice was found. Cannulated. Retrograde examination performed showing marked tortuosity with J hooking. Using both the open-ended and a Glidewire we were able to get a wire up into the renal pelvis. We then had to straighten the deviated ureter. We switched back to a Sensor guidewire. We then placed a 6 [place] by 22 cm stent. As he was only 5 ft 3 tall. The redundant ureter meant that the 22 cm stent was not able to reach. We removed the stent and replaced with a 6 [place] by 26 cm stent. Good coil was seen both in the renal pelvis and in the bladder. Turning to the left side after struggling with edema and marked trabeculation we were able to find the ureteric orifice. A Glidewire was placed. The open-ended was placed. A 6 [place] by 2 6 cm stent was placed. This was even more tortuous than the prior side and the stent readjusted and the end retracted up into the ureter. Since he is not well with a redundant ureter decision was made to place a 2nd stent alongside this current stent. Wire was placed up to the renal pelvis. A 6 [place] by 28 cm stent was able to be placed with good coil in the renal pelvis and in the bladder. The stents can be removed together at a later point in time if the creatinine resolved. Zheng catheter was placed without difficulty T. JACINTO was performed which showed a hard prostate consistent with prostate cancer. Bicalutamide to be started while stone the hospital. Biopsy may be required in order to start GnRH therapy. Bone scan will be ordered. Pathology: None Drains: As above 6 [place] by 26 and 28 cm stents
--- NOTE | 2021-04-07 20:29 | PM.UROPN ---
Subjective Subjective Date of Service: 04/07/21 Interval history: Bilateral stents placed for significant J hooking Prostate hard on exam consistent with prostate cancer Physical Exam Vital Signs: Vital Signs: Last Vital Signs Temp 97.9 F 04/07/21 16:18 Pulse 58 04/07/21 16:18 Resp 18 04/07/21 16:18 BP 158/74 H 04/07/21 16:18 Pulse Ox 99 04/07/21 16:18 Body Mass Index 26.8 Urology Results Labs CBC & Chem 7: 04/07/21 05:47 04/07/21 05:47 Labs: Laboratory Results - last 24 hr 04/07/21 04/07/21 05:47 05:47 WBC 8.1 RBC 2.77 L Hgb 7.8 L Hct 23.5 L MCV 84.8 MCH 28.2 MCHC 33.2 RDW 13.9 Plt Count 187 MPV 10.9 Absolute Nucleated RBC 0.000 Nucleated RBC % (auto) 0.0 Sodium 139 Potassium 3.9 Chloride 105 Carbon Dioxide 19 L Anion Gap 19 BUN 111 H* Creatinine 9.26 H* Estim Creat Clear Calc 7.1 Estimated GFR 6 Fasting Glucose 114 H Calcium 5.1 L* D Progress Note: A&P Fall Risk Details Current Medications: Current Medications Generic Name Dose Route Start Last Admin Trade Name Freq PRN Reason Stop Dose Admin Albuterol Sulfate 2.5 mg 04/07/21 17:07 Albuterol Sulfate (0.083%) 2.5 Mg/3 Ml Vial.Neb INHALE ONCE PRN Wheezing Calcium Carbonate 750 mg 04/03/21 09:15 04/07/21 08:59 Calcium Carbonate 750 Mg Tab.Chew PO 750 mg Q6H FREIDA Administration Fentanyl 25 mcg 04/07/21 17:07 Fentanyl Citrate/Pf 100 Mcg/2 Ml Vial IVPUSH Q5M PRN Pain, Moderate (Pain Scale 4-6 Protocol Fentanyl 25 mcg 04/07/21 19:04 Fentanyl Citrate/Pf 100 Mcg/2 Ml Vial IVPUSH Q5M PRN Pain, Moderate (Pain Scale 4-6 Protocol Fentanyl 25 mcg 04/07/21 19:42 Fentanyl Citrate/Pf 100 Mcg/2 Ml Vial IVPUSH Q5M PRN Pain, Moderate (Pain Scale 4-6 Protocol Melatonin 6 mg 04/02/21 22:18 04/06/21 19:51 Melatonin 3 Mg Tablet PO 6 mg BEDTIME PRN Administration Insomnia Ondansetron HCl 4 mg 04/07/21 17:07 Ondansetron Hcl 4 Mg/2 Ml Vial IVPUSH ONCE PRN Nausea and Vomiting Oxycodone HCl 5 mg 04/07/21 17:07 Oxycodone Hcl Immed Release 5 Mg Tablet PO ONCE PRN Pain, Severe (Pain Scale 7-10) Pharmacy Consult 1 each 04/01/21 21:54 Consult Rx Perform Med Rec MISCELLANE ONCE PRN Consult order Sodium Chloride 1 spray 04/03/21 05:58 Sodium Chloride 0.65 % Nasal 44 Ml Sprbtl NOSTRIL-B Q1H PRN Congestion Vitamin D 50 mcg 04/06/21 09:00 04/07/21 08:59 Cholecalciferol (Vitamin D3) 25 Mcg Tablet PO 50 mcg DAILY FREIDA Administration Time Spent With Patient Time: Total time spent is greater than 50% in coordination of care (as documented) at patient's floor/unit and/or counseling patient: Time with patient: less than 15 minutes Progress Note: Quality Stroke Does the patient have a stroke diagnosis?: No
[2021-04-07] MEDS: Acetaminophen 325 MG TABLET 650 MG PO (21:54)
[2021-04-07] MEDS: Melatonin 3 MG TABLET 6 MG PO (21:55)
[2021-04-08] VITALS (7 sets, daily range): BP systolic 136–167; BP diastolic 60–79; PULSE 65–86; RESP 15–20; TEMP 36.6–37.1; O2SAT 97–100
[2021-04-08 07:10] LABS: Anion Gap 20 (12-20); Blood Urea Nitrogen 113 mg/dL (9-16); Calcium 5.1 mg/dL (8.4-10.2); Carbon Dioxide 19 mmol/L (22-29); Chloride 104 mmol/L (96-108); Creatinine Clr Calc Pharmacy 7.1; Estimated Glomerular Filt Rate 6; Glucose Random 106 mg/dL (60-115); Potassium 4.3 mmol/L (3.3-5.1); Sodium 139 mmol/L (135-145)
[2021-04-08] MEDS: Bicalutamide 50 MG TABLET PO (08:05)
[2021-04-08] MEDS: Calcium Carbonate 750 MG TAB.CHEW PO ×3 (08:05→19:41)
[2021-04-08] MEDS: Cholecalciferol (Vitamin D3) 25 MCG TABLET 50 MCG PO (08:05)
--- NOTE | 2021-04-08 11:15 | MHC.CM.PN ---
Per ROUNDS discussion, Patient is not yet medically cleared for dc (MEGHAN/Bilateral stents placed yesterday). Home is the goal for dc and CM will continue to follow for possible need to adjust the dc plan.
--- NOTE | 2021-04-08 12:37 | PM.PNNEP ---
Subjective Subjective Date of Service: 04/08/21 Interval history: Seen AM. Events noted. S/P stenting. All recent data reviewed Physical Exam Vital Signs: Vital Signs: Last Vital Signs Temp 98.2 F 04/08/21 11:32 Pulse 68 04/08/21 11:32 Resp 19 04/08/21 11:32 BP 136/63 04/08/21 11:32 Pulse Ox 99 04/08/21 11:32 Body Mass Index 26.8 Const: General: no acute distress Orientation/consciousness: patient oriented x3 Eyes: EOM: EOMs intact bilaterally Neck: Neck: Yes supple Resp: Auscultation: diminished lung sounds Cardio: Jugular venous distension: no JVD Rate: regular rate GI: Palpation (GI): Soft to palpation Neuro: General: patient oriented x3 and moves all extremities Objective Data Labs CBC & Chem 7: 04/07/21 05:47 04/08/21 05:19 Labs: Laboratory Results - last 24 hr 04/08/21 05:19 Sodium 139 Potassium 4.3 Chloride 104 Carbon Dioxide 19 L Anion Gap 20 BUN 113 H* Creatinine 9.18 H* Estim Creat Clear Calc 7.1 Estimated GFR 6 Random Glucose 106 Calcium 5.1 L* Microbiology Microbiology Results: Microbiology 04/01/21 20:05 Urine Catheterized - Zheng Catheter Urine Culture - Final No growth. Procedures Date of Service Date of Service: 04/08/21 Assessment & Plan Assessment and plan (1) Acute kidney injury: Status: Acute Assessment and Plan: 61 year old male presented with AMS, found to have MEGHAN on CKD V, anemia, hypocalcemia, metabolic acidosis metabolic encephalopathy due to MEGHAN on CKD V obstructive; S/P stent insertion yesterday if no improvement needs bilateral nephrostomy No indication for renal replacement therapy today Labs AM. Shall closely follow up Time Spent With Patient Time: Total time spent is greater than 50% in coordination of care (as documented) at patient's floor/unit and/or counseling patient: Progress Note: Quality Stroke Does the patient have a stroke diagnosis?: No
--- NOTE | 2021-04-08 15:11 | HO.POSTANES ---
Post Anesthesia Evaluation Post Anesthesia Evaluation Vital Signs: Vital Signs Temp Pulse Resp BP Pulse Ox 04/08/21 11:32 98.2 F 68 19 136/63 99 04/08/21 07:16 98.7 F 65 18 138/67 97 04/08/21 03:34 97.8 F 86 20 167/60 H 97 Anesthesia: General LMA Mental Status: Awake Pain Control: Satisfactory Nausea/Vomiting: None Hydration: Adequate Anesthesia-Related Issues: No Anes. Related Issues
--- NOTE | 2021-04-08 16:39 | P.PNIM_ITS ---
Subjective Subjective Date of Service: 04/08/21 Interval History: Offers no complaints, no overnight issues. Review of Systems General no headache, no dizziness, no fever chills.? CVS no chest pain, no palpitation.? Respiratory no cough, no sob.? Gastrointestinal no nausea, no vomiting, no abdominal pain Physical Exam Vital Signs: Vital Signs: Last Vital Signs Temp 98.6 F 04/08/21 15:24 Pulse 82 04/08/21 15:24 Resp 15 04/08/21 15:24 BP 155/70 H 04/08/21 15:24 Pulse Ox 98 04/08/21 15:24 Body Mass Index 26.8 General no acute distress.? Neck? supple no JVD. CVS? regular rate rhythm, Respiratory lungs clear to auscultation, no respiratory distress Gastrointestinal abdomen soft, nontender, bowel sounds audible Extremities no edema. Neuro nonfocal , speech clear. Skin no rash Psych appropriate affect Objective Data Active Medications Albuterol Sulfate (Albuterol Sulfate (0.083%) 2.5 Mg/3 Ml Vial.Neb) 2.5 mg INHALE ONCE PRN PRN Reason: Wheezing Bicalutamide (Bicalutamide 50 Mg Tablet) 50 mg PO DAILY [facility] Last Admin: 04/08/21 08:05 Dose: 50 mg Documented by: SHINE Calcium Carbonate (Calcium Carbonate 750 Mg Tab.Chew) 750 mg PO Q6H [facility] Last Admin: 04/08/21 14:24 Dose: 750 mg Documented by: HARRY Fentanyl (Fentanyl Citrate/Pf 100 Mcg/2 Ml Vial) 25 mcg IVPUSH Q5M PRN; Protocol PRN Reason: Pain, Moderate (Pain Scale 4-6 Fentanyl (Fentanyl Citrate/Pf 100 Mcg/2 Ml Vial) 25 mcg IVPUSH Q5M PRN; Protocol PRN Reason: Pain, Moderate (Pain Scale 4-6 Fentanyl (Fentanyl Citrate/Pf 100 Mcg/2 Ml Vial) 25 mcg IVPUSH Q5M PRN; Protocol PRN Reason: Pain, Moderate (Pain Scale 4-6 Melatonin (Melatonin 3 Mg Tablet) 6 mg PO BEDTIME PRN PRN Reason: Insomnia Last Admin: 04/07/21 21:55 Dose: 6 mg Documented by: ANTOIC Ondansetron HCl (Ondansetron Hcl 4 Mg/2 Ml Vial) 4 mg IVPUSH ONCE PRN PRN Reason: Nausea and Vomiting Oxycodone HCl (Oxycodone Hcl Immed Release 5 Mg Tablet) 5 mg PO ONCE PRN PRN Reason: Pain, Severe (Pain Scale 7-10) Pharmacy Consult (Consult Rx Perform Med Rec) 1 each MISCELLANE ONCE PRN PRN Reason: Consult order Sodium Chloride (Sodium Chloride 0.65 % Nasal 44 Ml Sprbtl) 1 spray NOSTRIL-B Q1H PRN PRN Reason: Congestion Vitamin D (Cholecalciferol (Vitamin D3) 25 Mcg Tablet) 50 mcg PO DAILY [facility] Last Admin: 04/08/21 08:05 Dose: 50 mcg Documented by: SHINE Labs CBC & Chem 7: 04/07/21 05:47 04/08/21 05:19 Labs: Laboratory Results - last 24 hr 04/08/21 05:19 Anion Gap 20 Estim Creat Clear Calc 7.1 Estimated GFR 6 Random Glucose 106 Calcium 5.1 L* Assessment and Plan (1) CKD (chronic kidney disease) stage 5, GFR less than 15 ml/min: Status: Acute (2) Anemia: Status: Acute (3) Hypokalemia: Status: Acute (4) Metabolic acidosis: Status: Acute (5) Bilateral hydronephrosis: Status: Acute (6) Acute kidney injury: Status: Acute (7) Acute anemia: Status: Acute (8) Hypocalcemia: Status: Acute Assessment and Plan: 61M presented with ams, found to have MEGHAN on CKD V, anemia, hypocalcemia, metabolic acidosis, was admitted to ICU, victor placed, given IV fluids, downgraded to medical floor 04/02/21 metabolic encephalopathy due to MEGHAN on CKD complicated by metabolic acidosis Confusion resolved, acidosis improved, creatinine gradually trending down Likely obstructive uropathy ,continue Victor, s/p cystoscopy and bilateral stent placement by Dr. Restrepo 03/07/21 Nephro recommend to continue current treatment Follow BMP at a.m. anemia likely due to kidney disease transfused 1 unit prbc on 04/03, hgb improved from 6.5 to 7.8, and remain stable hypocalcemia with sclerotic bone lesions seen on CT likely due to long standing secondary hyperparathyroid from CKD Continue calcium and vit D supplement Noted to have heart prostate on examination consistent with prostate cancer as per Urology, elevated PSA 22, follow up with outpatient hypokalemia resolved VTE prphylaxis - mechanical due to significant anemia Quality Stroke Does the patient have a stroke diagnosis?: No VTE Prior VTE?: No VTE Risk Level:: Medical - moderate - high VTE Device Contraindication: N/A - Device Ordered VTE Drug Contraindication: N/A - Med Ordered
[2021-04-08] MEDS: oxyCODONE HCl Immed Release 5 MG TABLET PO (19:41)
[2021-04-08] MEDS: Melatonin 3 MG TABLET 6 MG PO (19:41)
[2021-04-09] VITALS (7 sets, daily range): BP systolic 119–173; BP diastolic 58–79; PULSE 63–89; RESP 18–20; TEMP 36.6–37.1; O2SAT 97–100
[2021-04-09] MEDS: Calcium Carbonate 750 MG TAB.CHEW PO ×4 (05:20→21:01)
[2021-04-09] MEDS: Bicalutamide 50 MG TABLET PO (08:55)
[2021-04-09] MEDS: Cholecalciferol (Vitamin D3) 25 MCG TABLET 50 MCG PO (08:55)
[2021-04-09 10:03] LABS: Anion Gap 18 (12-20); Blood Urea Nitrogen 108 mg/dL (9-16); Calcium 5.3 mg/dL (8.4-10.2); Carbon Dioxide 22 mmol/L (22-29); Chloride 104 mmol/L (96-108); Creatinine Clr Calc Pharmacy 7.3; Estimated Glomerular Filt Rate 6; Glucose Random 183 mg/dL (60-115); Potassium 4.5 mmol/L (3.3-5.1); Sodium 139 mmol/L (135-145)
--- NOTE | 2021-04-09 16:07 | HO.PM.IMPN ---
Subjective Subjective Date of Service: 04/09/21 Interval History: No acute complaints, no nausea no vomiting, no diarrhea, no uremic symptoms. Review of Systems General no headache, no dizziness, no fever chills.? CVS no chest pain, no palpitation.? Respiratory no cough, no sob.? Gastrointestinal no nausea, no vomiting, no abdominal pain Physical Exam Vital Signs: Vital Signs: Last Vital Signs Temp 98.8 F 04/09/21 11:19 Pulse 75 04/09/21 11:19 Resp 20 04/09/21 11:19 BP 155/74 H 04/09/21 11:19 Pulse Ox 100 04/09/21 11:19 Body Mass Index 26.8 General no acute distress.? Neck? supple no JVD. CVS? regular rate rhythm, Respiratory lungs clear to auscultation, no respiratory distress Gastrointestinal abdomen soft, nontender, bowel sounds audible Extremities no edema. Neuro nonfocal , speech clear. Skin no rash Psych appropriate affect Objective Data Active Medications Albuterol Sulfate (Albuterol Sulfate (0.083%) 2.5 Mg/3 Ml Vial.Neb) 2.5 mg INHALE ONCE PRN PRN Reason: Wheezing Bicalutamide (Bicalutamide 50 Mg Tablet) 50 mg PO DAILY [facility] Last Admin: 04/09/21 08:55 Dose: 50 mg Documented by: DARNELL Calcium Carbonate (Calcium Carbonate 750 Mg Tab.Chew) 750 mg PO Q6H [facility] Last Admin: 04/09/21 14:16 Dose: 750 mg Documented by: DARNELL Fentanyl (Fentanyl Citrate/Pf 100 Mcg/2 Ml Vial) 25 mcg IVPUSH Q5M PRN; Protocol PRN Reason: Pain, Moderate (Pain Scale 4-6 Fentanyl (Fentanyl Citrate/Pf 100 Mcg/2 Ml Vial) 25 mcg IVPUSH Q5M PRN; Protocol PRN Reason: Pain, Moderate (Pain Scale 4-6 Fentanyl (Fentanyl Citrate/Pf 100 Mcg/2 Ml Vial) 25 mcg IVPUSH Q5M PRN; Protocol PRN Reason: Pain, Moderate (Pain Scale 4-6 Melatonin (Melatonin 3 Mg Tablet) 6 mg PO BEDTIME PRN PRN Reason: Insomnia Last Admin: 04/08/21 19:41 Dose: 6 mg Documented by: HARRY Ondansetron HCl (Ondansetron Hcl 4 Mg/2 Ml Vial) 4 mg IVPUSH ONCE PRN PRN Reason: Nausea and Vomiting Pharmacy Consult (Consult Rx Perform Med Rec) 1 each MISCELLANE ONCE PRN PRN Reason: Consult order Sodium Chloride (Sodium Chloride 0.65 % Nasal 44 Ml Sprbtl) 1 spray NOSTRIL-B Q1H PRN PRN Reason: Congestion Vitamin D (Cholecalciferol (Vitamin D3) 25 Mcg Tablet) 50 mcg PO DAILY [facility] Last Admin: 04/09/21 08:55 Dose: 50 mcg Documented by: DARNELL Labs CBC & Chem 7: 04/07/21 05:47 04/09/21 09:12 Labs: Laboratory Results - last 24 hr 04/09/21 09:12 Anion Gap 18 Estim Creat Clear Calc 7.3 Estimated GFR 6 Random Glucose 183 H D Calcium 5.3 L* Assessment and Plan (1) CKD (chronic kidney disease) stage 5, GFR less than 15 ml/min: Status: Acute (2) Anemia: Status: Acute (3) Hypokalemia: Status: Acute (4) Metabolic acidosis: Status: Acute (5) Bilateral hydronephrosis: Status: Acute (6) Acute kidney injury: Status: Acute (7) Acute anemia: Status: Acute (8) Hypocalcemia: Status: Acute Assessment and Plan: 61M presented with ams, found to have MEGHAN on CKD V, anemia, hypocalcemia, metabolic acidosis, was admitted to ICU, victor placed, given IV fluids, downgraded to medical floor 04/02/21 metabolic encephalopathy due to MEGHAN on CKD complicated by metabolic acidosis Confusion resolved, acidosis improved, creatinine trending down very slowly 8.97 today Likely obstructive uropathy ,continue Victor, s/p cystoscopy and bilateral stent placement by Dr. Restrepo? 03/07/21 Nephro recommend to continue current treatment, and if no further improvement in renal function will need bilateral nephrostomy will discuss with Urology Follow BMP at a.m. anemia likely due to kidney disease transfused 1 unit prbc on 04/03, hgb improved from 6.5 to 7.8, and remain stable hypocalcemia with sclerotic bone lesions seen on CT likely due to long standing secondary hyperparathyroid from CKD Continue calcium and vit D supplement Noted to have hard prostate on examination consistent with prostate cancer as per Urology, elevated PSA 22, follow up with outpatient hypokalemia resolved VTE prphylaxis - mechanical due to significant anemia Quality Stroke Does the patient have a stroke diagnosis?: No VTE Prior VTE?: No VTE Risk Level:: Medical - moderate - high VTE Device Contraindication: N/A - Device Ordered VTE Drug Contraindication: N/A - Med Ordered
--- NOTE | 2021-04-09 20:33 | PM.PNNEP ---
Subjective Subjective Date of Service: 04/09/21 Interval history: Events noted. All recent data reviewed. Physical Exam Vital Signs: Vital Signs: Last Vital Signs Temp 98.0 F 04/09/21 19:28 Pulse 89 04/09/21 19:28 Resp 19 04/09/21 19:28 BP 133/58 L 04/09/21 19:28 Pulse Ox 99 04/09/21 19:28 Body Mass Index 26.8 Const: General: no acute distress Orientation/consciousness: oriented to time Neck: Neck: Yes supple Resp: Auscultation: diminished lung sounds Cardio: Rate: regular rate GI: Palpation (GI): Soft to palpation Neuro: General: oriented to time and moves all extremities Objective Data Labs CBC & Chem 7: 04/07/21 05:47 04/09/21 09:12 Labs: Laboratory Results - last 24 hr 04/09/21 09:12 Sodium 139 Potassium 4.5 Chloride 104 Carbon Dioxide 22 Anion Gap 18 BUN 108 H* Creatinine 8.97 H* Estim Creat Clear Calc 7.3 Estimated GFR 6 Random Glucose 183 H D Calcium 5.3 L* Microbiology Microbiology Results: Microbiology 04/01/21 20:05 Urine Catheterized - Zheng Catheter Urine Culture - Final No growth. Procedures Date of Service Date of Service: 04/09/21 Assessment & Plan Assessment and plan (1) Acute kidney injury: Status: Acute Assessment and Plan: Acute kidney injury: ? ? ? 61 year old male presented with AMS, found to have MEGHAN on CKD V, anemia, hypocalcemia, metabolic acidosis metabolic encephalopathy due to MEGHAN on CKD V obstructive; S/P stent insertion 2 days ago No indication for renal replacement therapy today Hypocalcemic. Start Calcitriol 1 mcg daily Labs AM. Shall closely follow up Time Spent With Patient Time: Total time spent is greater than 50% in coordination of care (as documented) at patient's floor/unit and/or counseling patient: Progress Note: Quality Stroke Does the patient have a stroke diagnosis?: No
[2021-04-09] MEDS: oxyCODONE HCl Immed Release 5 MG TABLET PO (20:59)
[2021-04-09] MEDS: Melatonin 3 MG TABLET 6 MG PO (21:01)
[2021-04-10] VITALS (7 sets, daily range): BP systolic 114–164; BP diastolic 56–79; PULSE 67–75; RESP 16–20; TEMP 36.8–37.3; O2SAT 97–100
[2021-04-10] MEDS: Calcium Carbonate 750 MG TAB.CHEW PO ×3 (03:21→19:42)
[2021-04-10 07:09] LABS: Hematocrit 22.3 % (42-52); Hemoglobin 7.3 g/dl (14.0-18.0); Mean Corpuscular HGB Conc 32.7 g/dl (31.0-36.0); Mean Corpuscular Hemoglobin 28.5 pg (27.0-33.0); Mean Corpuscular Volume 87.1 fL (80-98); Mean Platelet Volume 10.8 fL (9.4-12.4); Platelet Count 197 X10*3/uL (160-400); Red Blood Count 2.56 X10*6/uL (4.60-5.80); Red Cell Distribution Width 13.7 % (11.0-16.0); White Blood Count 6.9 X10*3/uL (4.8-10.8)
[2021-04-10 07:47] LABS: Blood Urea Nitrogen 146 mg/dL (9-16)
[2021-04-10 07:54] LABS: Anion Gap 18 (12-20); Blood Urea Nitrogen 124 mg/dL (9-16); Calcium 5.1 mg/dL (8.4-10.2); Carbon Dioxide 20 mmol/L (22-29); Chloride 105 mmol/L (96-108); Creatinine Clr Calc Pharmacy 7.6; Estimated Glomerular Filt Rate 6; Glucose Random 107 mg/dL (60-115); Potassium 4.8 mmol/L (3.3-5.1); Sodium 138 mmol/L (135-145)
[2021-04-10] MEDS: Cholecalciferol (Vitamin D3) 25 MCG TABLET 50 MCG PO (08:47)
[2021-04-10] MEDS: Bicalutamide 50 MG TABLET PO (08:48)
[2021-04-10] MEDS: calcitrioL 0.25 MCG CAPSULE 1 MCG PO (10:28)
--- NOTE | 2021-04-10 11:06 | MHC.CM.PN ---
Per ROUNDS discussion, Patient is not yet medically cleared for dc (? Bilateral Nephrostomy tubes).Home is the goal for dc and CM will follow for possible need to adjust the dc plan.
--- NOTE | 2021-04-10 11:09 | PM.PNNEP ---
Subjective Subjective Date of Service: 04/10/21 Interval history: Events noted. All recent data reviewed. Physical Exam Vital Signs: Vital Signs: Last Vital Signs Temp 98.5 F 04/10/21 07:34 Pulse 70 04/10/21 07:34 Resp 18 04/10/21 07:34 BP 149/70 H 04/10/21 07:34 Pulse Ox 97 04/10/21 07:34 Body Mass Index 26.8 Const: General: no acute distress Orientation/consciousness: patient oriented x3 Eyes: EOM: EOMs intact bilaterally Neck: Neck: Yes supple Resp: Auscultation: diminished lung sounds Cardio: Jugular venous distension: no JVD Rate: regular rate GI: Palpation (GI): Soft to palpation Neuro: General: patient oriented x3 and moves all extremities Objective Data Labs CBC & Chem 7: 04/10/21 06:41 04/10/21 06:41 Labs: Laboratory Results - last 24 hr 04/03/21 04/10/21 04/10/21 05:32 06:41 06:41 WBC 6.9 RBC 2.56 L Hgb 7.3 L Hct 22.3 L MCV 87.1 MCH 28.5 MCHC 32.7 RDW 13.7 Plt Count 197 MPV 10.8 Absolute Nucleated RBC 0.000 Nucleated RBC % (auto) 0.0 Sodium 138 Potassium 4.8 Chloride 105 Carbon Dioxide 20 L Anion Gap 18 BUN 146 H* 124 H* Creatinine 8.65 H* Estim Creat Clear Calc 7.6 Estimated GFR 6 Random Glucose 107 D Calcium 5.1 L* Microbiology Microbiology Results: Microbiology 04/01/21 20:05 Urine Catheterized - Zheng Catheter Urine Culture - Final No growth. Procedures Date of Service Date of Service: 04/10/21 Assessment & Plan Assessment and plan (1) Acute kidney injury: Status: Acute Assessment and Plan: 61 year old male presented with AMS, found to have MEGHAN on CKD V, anemia, hypocalcemia, metabolic acidosis AKKI metabolic encephalopathy due to MEGHAN on CKD V obstructive; S/P stent insertion 3 days ago ? Going to have Percutaneous nephrostomy today No indication for renal replacement therapy today Hypocalcemic. On Calcium.Started Calcitriol 1 mcg daily Labs AM. Shall closely follow up Time Spent With Patient Time: Total time spent is greater than 50% in coordination of care (as documented) at patient's floor/unit and/or counseling patient: Progress Note: Quality Stroke Does the patient have a stroke diagnosis?: No
--- NOTE | 2021-04-10 16:25 | P.PNIM_ITS ---
Subjective Subjective Date of Service: 04/10/21 Interval History: Being followed for acute renal failure, denies pain, no acute issues overnight Review of Systems General no headache, no dizziness, no fever chills.? CVS no chest pain, no palpitation.? Respiratory no cough, no sob.? Gastrointestinal no nausea, no vomiting, no abdominal pain Physical Exam Vital Signs: Vital Signs: Last Vital Signs Temp 98.9 F 04/10/21 12:00 Pulse 74 04/10/21 12:00 Resp 18 04/10/21 12:00 BP 139/63 04/10/21 12:00 Pulse Ox 97 04/10/21 12:00 Body Mass Index 26.8 General no acute d istress.? Neck? owens pple no JVD. CVS? regular rate rhyth m, Respiratory ana gs clear to auscul tation, no respira tory distress Johanny rointestinal abdom en soft, nontender , bowel sounds aud ible Extremities n o edema. Neuro non focal , speech yossi ar. Skin no rash P sych appropriate a ffect Objective Data Active Medications Albuterol Sulfate (Albuterol Sulfate (0.083%) 2.5 Mg/3 Ml Vial.Neb) 2.5 mg INHALE ONCE PRN PRN Reason: Wheezing Bicalutamide (Bicalutamide 50 Mg Tablet) 50 mg PO DAILY [facility] Last Admin: 04/10/21 08:48 Dose: 50 mg Documented by: KB Calcitriol (Calcitriol 0.25 Mcg Capsule) 1 mcg PO DAILY [facility] Last Admin: 04/10/21 10:28 Dose: 1 mcg Documented by: KB Comments: not in pyxis Calcium Carbonate (Calcium Carbonate 750 Mg Tab.Chew) 750 mg PO Q6H [facility] Last Admin: 04/10/21 08:47 Dose: 750 mg Documented by: KB Fentanyl (Fentanyl Citrate/Pf 100 Mcg/2 Ml Vial) 25 mcg IVPUSH Q5M PRN; Protocol PRN Reason: Pain, Moderate (Pain Scale 4-6 Fentanyl (Fentanyl Citrate/Pf 100 Mcg/2 Ml Vial) 25 mcg IVPUSH Q5M PRN; Protocol PRN Reason: Pain, Moderate (Pain Scale 4-6 Fentanyl (Fentanyl Citrate/Pf 100 Mcg/2 Ml Vial) 25 mcg IVPUSH Q5M PRN; Protocol PRN Reason: Pain, Moderate (Pain Scale 4-6 Melatonin (Melatonin 3 Mg Tablet) 6 mg PO BEDTIME PRN PRN Reason: Insomnia Last Admin: 04/09/21 21:01 Dose: 6 mg Documented by: ELTON Ondansetron HCl (Ondansetron Hcl 4 Mg/2 Ml Vial) 4 mg IVPUSH ONCE PRN PRN Reason: Nausea and Vomiting Pharmacy Consult (Consult Rx Perform Med Rec) 1 each MISCELLANE ONCE PRN PRN Reason: Consult order Sodium Chloride (Sodium Chloride 0.65 % Nasal 44 Ml Sprbtl) 1 spray NOSTRIL-B Q1H PRN PRN Reason: Congestion Vitamin D (Cholecalciferol (Vitamin D3) 25 Mcg Tablet) 50 mcg PO DAILY [facility] Last Admin: 04/10/21 08:47 Dose: 50 mcg Documented by: KB Labs CBC & Chem 7: 04/10/21 06:41 04/10/21 06:41 Labs: Laboratory Results - last 24 hr 04/10/21 04/10/21 06:41 06:41 MCV 87.1 MCH 28.5 MCHC 32.7 RDW 13.7 Plt Count 197 MPV 10.8 Absolute Nucleated RBC 0.000 Nucleated RBC % (auto) 0.0 Anion Gap 18 Estim Creat Clear Calc 7.6 Estimated GFR 6 Random Glucose 107 D Calcium 5.1 L* Assessment and Plan (1) CKD (chronic kidney disease) stage 5, GFR less than 15 ml/min: Status: Acute (2) Anemia: Status: Acute (3) Hypokalemia: Status: Acute (4) Metabolic acidosis: Status: Acute (5) Bilateral hydronephrosis: Status: Acute (6) Acute kidney injury: Status: Acute (7) Acute anemia: Status: Acute (8) Hypocalcemia: Status: Acute Assessment and Plan: 61M presented with ams, found to have MEGHAN on CKD V, anemia, hypocalcemia, metabolic acidosis, was admitted to ICU, victor placed, given IV fluids, downgraded to medical floor 04/02/21 metabolic encephalopathy due to MEGHAN on CKD complicated by metabolic acidosis Creatinine remains elevated and slowly trending down Confusion resolved Likely obstructive uropathy ,s/p cystoscopy and bilateral stent placement by Dr. Restrepo? 03/07/[address] Restrepo he recommended bilateral nephrostomy tube, nephrostomy tube placement ordered for IR however case discussed with Dr. Melissa Flower she recommended to obtain a renal ultrasound prior to placing the nephrostomy tube if renal ultrasound shows hydro then she will place the nephros nino tube and if no hydro she recommend to obtain Renal scan Case discussed with Nephrology he agrees with above plan Follow BMP at a.m. Obtained renal ultrasound done this morning shows bilateral hydro unchanged from prior study anemia likely due to kidney disease transfused 1 unit prbc on 04/03, hgb improved from 6.5 to 7.8, and dropped to 7.3 this morning, will discuss use of Procrit with Nephro hypocalcemia with sclerotic bone lesions seen on CT likely due to long standing secondary hyperparathyroid from CKD Continue calcium and vit D supplement, added calcitriol 1 mcg daily Noted to have hard prostate on examination consistent with prostate cancer as per Urology, elevated PSA 22, follow up with outpatient hypokalemia resolved VTE prphylaxis - mechanical due to significant anemia Quality Stroke Does the patient have a stroke diagnosis?: No VTE Prior VTE?: No VTE Risk Level:: Medical - moderate - high VTE Device Contraindication: N/A - Device Ordered VTE Drug Contraindication: N/A - Med Ordered
--- NOTE | 2021-04-10 17:40 | HO.RADPN ---
RADIOLOGY Narrative Narrative: Bilateral 8.[address] Urine sent for culture and cytology.
[2021-04-10 18:32] LABS: Urine Cytology See Pathology rpt
[2021-04-10] MEDS: oxyCODONE HCl Immed Release 5 MG TABLET PO (19:42)
[2021-04-10] MEDS: Melatonin 3 MG TABLET 6 MG PO (19:43)
[2021-04-11] VITALS: BP 136/62; PULSE 86; RESP 18; TEMP 36.8; O2SAT 97
[2021-04-11] MEDS: oxyCODONE HCl Immed Release 5 MG TABLET PO ×4 (05:35→23:14)
[2021-04-11 08:00] VITALS: BP 138/64; PULSE 80; RESP 18; TEMP 37.2; O2SAT 97
[2021-04-11 08:08] LABS: Hematocrit 23.4 % (42-52); Hemoglobin 7.7 g/dl (14.0-18.0); Mean Corpuscular HGB Conc 32.9 g/dl (31.0-36.0); Mean Corpuscular Hemoglobin 28.8 pg (27.0-33.0); Mean Corpuscular Volume 87.6 fL (80-98); Mean Platelet Volume 10.7 fL (9.4-12.4); Platelet Count 190 X10*3/uL (160-400); Red Blood Count 2.67 X10*6/uL (4.60-5.80); Red Cell Distribution Width 13.7 % (11.0-16.0); White Blood Count 7.3 X10*3/uL (4.8-10.8)
[2021-04-11] MEDS: calcitrioL 0.25 MCG CAPSULE 1 MCG PO (08:10)
[2021-04-11] MEDS: Cholecalciferol (Vitamin D3) 25 MCG TABLET 50 MCG PO (08:10)
[2021-04-11] MEDS: Bicalutamide 50 MG TABLET PO (08:10)
[2021-04-11] MEDS: Calcium Carbonate 750 MG TAB.CHEW PO ×3 (08:10→19:42)
[2021-04-11 08:40] LABS: Anion Gap 19 (12-20); Blood Urea Nitrogen 111 mg/dL (9-16); Calcium 5.6 mg/dL (8.4-10.2); Carbon Dioxide 20 mmol/L (22-29); Chloride 105 mmol/L (96-108); Creatinine Clr Calc Pharmacy 7.6; Estimated Glomerular Filt Rate 6; Glucose Random 75 mg/dL (60-115); Potassium 5.5 mmol/L (3.3-5.1); Sodium 138 mmol/L (135-145)
--- NOTE | 2021-04-11 10:47 | P.PNIM_ITS ---
Subjective Subjective Date of Service: 04/11/21 Interval History: Being followed for acute renal failure due to obstructive uropathy, complain of pain at site of nephrostomy tube Review of Systems General no headache, no dizziness, no fever chills.? CVS no chest pain, no palpitation.? Respiratory no cough, no sob.? Gastrointestinal no nausea, no vomiting, no abdominal pain Review of Systems: Yes all other systems are reviewed and are negative Physical Exam Vital Signs: Vital Signs: Last Vital Signs Temp 98.9 F 04/11/21 08:00 Pulse 80 04/11/21 08:00 Resp 18 04/11/21 08:00 BP 138/64 04/11/21 08:00 Pulse Ox 97 04/11/21 08:00 Body Mass Index 26.8 General no acute distress.? Neck? supple, no JVD. CVS?regular rate rhythm, Respiratory lungs clear to auscultation, no respiratory distress Gastrointestinal abdomen soft, nontender, bowel sounds audible Extremities no edema. Neuro nonfocal , speech clear. Skin no rash Psych appropriate affect Bilateral nephrostomy tube in place pink tinged urine Objective Data Active Medications Albuterol Sulfate (Albuterol Sulfate (0.083%) 2.5 Mg/3 Ml Vial.Neb) 2.5 mg INHALE ONCE PRN PRN Reason: Wheezing Bicalutamide (Bicalutamide 50 Mg Tablet) 50 mg PO DAILY [facility] Last Admin: 04/11/21 08:10 Dose: 50 mg Documented by: ABRIL Calcitriol (Calcitriol 0.25 Mcg Capsule) 1 mcg PO DAILY [facility] Last Admin: 04/11/21 08:10 Dose: 1 mcg Documented by: ABRIL Calcium Carbonate (Calcium Carbonate 750 Mg Tab.Chew) 750 mg PO Q6H [facility] Last Admin: 04/11/21 08:10 Dose: 750 mg Documented by: ABRIL Fentanyl (Fentanyl Citrate/Pf 100 Mcg/2 Ml Vial) 25 mcg IVPUSH Q5M PRN; Protocol PRN Reason: Pain, Moderate (Pain Scale 4-6 Fentanyl (Fentanyl Citrate/Pf 100 Mcg/2 Ml Vial) 25 mcg IVPUSH Q5M PRN; Protocol PRN Reason: Pain, Moderate (Pain Scale 4-6 Fentanyl (Fentanyl Citrate/Pf 100 Mcg/2 Ml Vial) 25 mcg IVPUSH Q5M PRN; Protocol PRN Reason: Pain, Moderate (Pain Scale 4-6 Melatonin (Melatonin 3 Mg Tablet) 6 mg PO BEDTIME PRN PRN Reason: Insomnia Last Admin: 04/10/21 19:43 Dose: 6 mg Documented by: JOHANN Ondansetron HCl (Ondansetron Hcl 4 Mg/2 Ml Vial) 4 mg IVPUSH ONCE PRN PRN Reason: Nausea and Vomiting Oxycodone HCl (Oxycodone Hcl Immed Release 5 Mg Tablet) 5 mg PO Q6H PRN PRN Reason: Pain, Severe (Pain Scale 7-10) Last Admin: 04/11/21 05:35 Dose: 5 mg Documented by: JOHANN Pharmacy Consult (Consult Rx Perform Med Rec) 1 each MISCELLANE ONCE PRN PRN Reason: Consult order Sodium Chloride (Sodium Chloride 0.65 % Nasal 44 Ml Sprbtl) 1 spray NOSTRIL-B Q1H PRN PRN Reason: Congestion Vitamin D (Cholecalciferol (Vitamin D3) 25 Mcg Tablet) 50 mcg PO DAILY [facility] Last Admin: 04/11/21 08:10 Dose: 50 mcg Documented by: ABRIL Labs CBC & Chem 7: 04/11/21 07:50 04/11/21 07:50 Labs: Laboratory Results - last 24 hr 04/11/21 04/11/21 07:50 07:50 MCV 87.6 MCH 28.8 MCHC 32.9 RDW 13.7 Plt Count 190 MPV 10.7 Absolute Nucleated RBC 0.000 Nucleated RBC % (auto) 0.0 Anion Gap 19 Estim Creat Clear Calc 7.6 Estimated GFR 6 Random Glucose 75 Calcium 5.6 L* D Assessment and Plan (1) CKD (chronic kidney disease) stage 5, GFR less than 15 ml/min: Status: Acute (2) Anemia: Status: Acute (3) Hypokalemia: Status: Acute (4) Metabolic acidosis: Status: Acute (5) Bilateral hydronephrosis: Status: Acute (6) Acute kidney injury: Status: Acute (7) Acute anemia: Status: Acute (8) Hypocalcemia: Status: Acute Assessment and Plan: 61M presented with ams, found to have MEGHAN on CKD V, anemia, hypocalcemia, metabolic acidosis, was admitted to ICU, victor placed, given IV fluids, downgraded to medical floor 04/02/21 metabolic encephalopathy due to MEGHAN on CKD complicated by metabolic acidosis Confusion resolved, complaining of pain at site of nephrostomy Creatinine remains elevated 8.6 no change since yesterday due to obstructive uropathy ,s/p cystoscopy and bilateral stent placement by Dr. Restrepo? 03/07/21 Repeat renal ultrasound showed persistent hydronephrosis Due to persistent renal failure/hydro, bilateral nephrostomy tube, placed yesterday 04/10 by IR Follow BMP closely If no further improvement will discuss case with Urology and Nephro anemia likely due to kidney disease transfused 1 unit prbc on 04/03, hgb improved from 6.5 to 7.8, and remains stable above 7 patient asymptomatic, hold transfusion hypocalcemia with sclerotic bone lesions seen on CT likely due to long standing secondary hyperparathyroid from CKD Continue calcium and vit D supplement, and calcitriol 1 mcg daily Noted to have hard prostate on examination consistent with prostate cancer as per Urology, elevated PSA 22, follow up with outpatient hypokalemia resolved VTE prphylaxis - mechanical due to significant anemia Quality Stroke Does the patient have a stroke diagnosis?: No VTE Prior VTE?: No VTE Risk Level:: Medical - moderate - high VTE Device Contraindication: N/A - Device Ordered VTE Drug Contraindication: N/A - Med Ordered
[2021-04-11 12:54] VITALS: BP 165/72; PULSE 68; RESP 20; TEMP 36.7; O2SAT 98
--- NOTE | 2021-04-11 15:08 | HO.POSTANES ---
Post Anesthesia Evaluation Post Anesthesia Evaluation Vital Signs: Vital Signs Temp Pulse Resp BP Pulse Ox 04/11/21 12:54 98.1 F 68 20 165/72 H 98 04/11/21 08:00 98.9 F 80 18 138/64 97 Anesthesia: Monitored Mental Status: Awake Pain Control: Satisfactory Nausea/Vomiting: None
[2021-04-11 15:42] VITALS: BP 122/64; PULSE 83; RESP 18; TEMP 36.8; O2SAT 100
--- NOTE | 2021-04-11 16:04 | PM.PNNEP ---
Subjective Subjective Date of Service: 04/11/21 Interval history: Being followed for acute renal failure due to obstructive uropathy, complain of pain at site of nephrostomy tube Physical Exam Vital Signs: Vital Signs: Last Vital Signs Temp 98.2 F 04/11/21 15:42 Pulse 83 04/11/21 15:42 Resp 18 04/11/21 15:42 BP 122/64 04/11/21 15:42 Pulse Ox 100 04/11/21 15:42 Body Mass Index 26.8 Const: General: no acute distress Orientation/consciousness: oriented to person, oriented to place, oriented to time and patient oriented x3 Resp: Effort & Inspection: no respiratory distress Cardio: Rate: regular rate Rhythm: regular rhythm Heart sounds: S1 normal heart sound present, S2 normal heart sound present and no murmurs GI: Palpation (GI): Soft to palpation and nontender Auscultation: normal bowel sounds Neuro: General: oriented to person, oriented to place, oriented to time and patient oriented x3 Objective Data Labs CBC & Chem 7: 04/11/21 07:50 04/11/21 07:50 Labs: Laboratory Results - last 24 hr 04/11/21 04/11/21 07:50 07:50 WBC 7.3 RBC 2.67 L Hgb 7.7 L Hct 23.4 L MCV 87.6 MCH 28.8 MCHC 32.9 RDW 13.7 Plt Count 190 MPV 10.7 Absolute Nucleated RBC 0.000 Nucleated RBC % (auto) 0.0 Sodium 138 Potassium 5.5 H Chloride 105 Carbon Dioxide 20 L Anion Gap 19 BUN 111 H* Creatinine 8.63 H* Estim Creat Clear Calc 7.6 Estimated GFR 6 Random Glucose 75 Calcium 5.6 L* D Microbiology Microbiology Results: Microbiology 04/01/21 20:05 Urine Catheterized - Zheng Catheter Urine Culture - Final No growth. 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 Matabolic acidosis and Hyperkalemia: started NaBicarb 650mg BID today Hypocalcemic. 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 Time Spent With Patient Time: Total time spent is greater than 50% in coordination of care (as documented) at patient's floor/unit and/or counseling patient: Progress Note: Quality Stroke Does the patient have a stroke diagnosis?: No
[2021-04-11] MEDS: Sodium Bicarbonate 650 MG TABLET PO (19:42)
[2021-04-11] MEDS: Melatonin 3 MG TABLET 6 MG PO (19:42)
[2021-04-11 19:54] VITALS: BP 154/76; PULSE 74; RESP 18; TEMP 37.4; O2SAT 97
[2021-04-12 06:31] LABS: PTHI 208 pg/mL (14-64)
[2021-04-12 08:00] VITALS: BP 120/58; PULSE 80; RESP 20; TEMP 36.8; O2SAT 98
[2021-04-12] MEDS: Bicalutamide 50 MG TABLET PO (10:53)
[2021-04-12] MEDS: Cholecalciferol (Vitamin D3) 25 MCG TABLET 50 MCG PO (10:53)
[2021-04-12] MEDS: Calcium Carbonate 750 MG TAB.CHEW PO ×3 (10:53→21:17)
[2021-04-12] MEDS: Sodium Bicarbonate 650 MG TABLET PO ×2 (10:53→21:15)
[2021-04-12] MEDS: calcitrioL 0.25 MCG CAPSULE 1 MCG PO (10:53)
--- NOTE | 2021-04-12 11:08 | HO.PM.IMPN ---
Subjective Subjective Date of Service: 04/12/21 Interval History: Being followed for acute renal injury Offers no complaints of nausea vomiting diarrhea, no abdominal pain no lightheadedness or dizziness Review of Systems General no headache, no dizziness, no fever chills.? CVS no chest pain, no palpitation.? Respiratory no cough, no sob.? Gastrointestinal no nausea, no vomiting, no abdominal pain Review of Systems: Yes all other systems are reviewed and are negative Physical Exam Vital Signs: Vital Signs: Last Vital Signs Temp 98.2 F 04/12/21 08:00 Pulse 80 04/12/21 08:00 Resp 20 04/12/21 08:00 BP 120/58 L 04/12/21 08:00 Pulse Ox 98 04/12/21 08:00 Body Mass Index 26.8 General no acute distress.? Neck? supple, no JVD. CVS?regular rate rhythm, Respiratory lungs clear to auscultation, no respiratory distress Gastrointestinal abdomen soft, nontender, bowel sounds audible Extremities no edema. Neuro nonfocal , speech clear. Skin no rash Psych appropriate affect Bilateral nephrostomy tube in place pink tinged urine is clearing ? Objective Data Active Medications Albuterol Sulfate (Albuterol Sulfate (0.083%) 2.5 Mg/3 Ml Vial.Neb) 2.5 mg INHALE ONCE PRN PRN Reason: Wheezing Bicalutamide (Bicalutamide 50 Mg Tablet) 50 mg PO DAILY [facility] Last Admin: 04/12/21 10:53 Dose: 50 mg Documented by: AMARILIS Calcitriol (Calcitriol 0.25 Mcg Capsule) 1 mcg PO DAILY [facility] Last Admin: 04/12/21 10:53 Dose: 1 mcg Documented by: AMARILIS Calcium Carbonate (Calcium Carbonate 750 Mg Tab.Chew) 750 mg PO Q6H [facility] Last Admin: 04/12/21 10:53 Dose: 750 mg Documented by: AMARILIS Fentanyl (Fentanyl Citrate/Pf 100 Mcg/2 Ml Vial) 25 mcg IVPUSH Q5M PRN; Protocol PRN Reason: Pain, Moderate (Pain Scale 4-6 Fentanyl (Fentanyl Citrate/Pf 100 Mcg/2 Ml Vial) 25 mcg IVPUSH Q5M PRN; Protocol PRN Reason: Pain, Moderate (Pain Scale 4-6 Fentanyl (Fentanyl Citrate/Pf 100 Mcg/2 Ml Vial) 25 mcg IVPUSH Q5M PRN; Protocol PRN Reason: Pain, Moderate (Pain Scale 4-6 Melatonin (Melatonin 3 Mg Tablet) 6 mg PO BEDTIME PRN PRN Reason: Insomnia Last Admin: 04/11/21 19:42 Dose: 6 mg Documented by: JOHANN Ondansetron HCl (Ondansetron Hcl 4 Mg/2 Ml Vial) 4 mg IVPUSH ONCE PRN PRN Reason: Nausea and Vomiting Oxycodone HCl (Oxycodone Hcl Immed Release 5 Mg Tablet) 5 mg PO Q6H PRN PRN Reason: Pain, Severe (Pain Scale 7-10) Last Admin: 04/11/21 23:14 Dose: 5 mg Documented by: JOHANN Pharmacy Consult (Consult Rx Perform Med Rec) 1 each MISCELLANE ONCE PRN PRN Reason: Consult order Sodium Bicarbonate (Sodium Bicarbonate 650 Mg Tablet) 650 mg PO BID [facility] Last Admin: 04/12/21 10:53 Dose: 650 mg Documented by: AMARILIS Sodium Chloride (Sodium Chloride 0.65 % Nasal 44 Ml Sprbtl) 1 spray NOSTRIL-B Q1H PRN PRN Reason: Congestion Vitamin D (Cholecalciferol (Vitamin D3) 25 Mcg Tablet) 50 mcg PO DAILY [facility] Last Admin: 04/12/21 10:53 Dose: 50 mcg Documented by: AMARILIS Labs CBC & Chem 7: 04/11/21 07:50 04/11/21 07:50 Labs: Laboratory Results - last 24 hr 04/03/21 14:49 PTH Intact 208 H Assessment and Plan (1) CKD (chronic kidney disease) stage 5, GFR less than 15 ml/min: Status: Acute (2) Hypokalemia: Status: Acute (3) Metabolic acidosis: Status: Acute (4) Bilateral hydronephrosis: Status: Acute (5) Acute kidney injury: Status: Acute (6) Acute anemia: Status: Acute Assessment and Plan: 61M presented with ams, found to have MEGHAN on CKD V, anemia, hypocalcemia, metabolic acidosis, was admitted to ICU, victor placed, given IV fluids, downgraded to medical floor 04/02/21 metabolic encephalopathy due to MEGHAN on CKD complicated by metabolic acidosis Confusion resolved, pain at site of nephrostomy tube has improved Creatinine remains elevated 8.6 ,due to obstructive uropathy ,s/p cystoscopy and bilateral stent placement by Dr. Restrepo? 03/07/21 Repeat renal ultrasound 04/10 showed persistent hydronephrosis,therefore bilateral nephrostomy tube, placed on 04/10 by IR Follow BMP at a.m. If no further improvement will discuss case with Urology and Nephro anemia likely due to kidney disease transfused 1 unit prbc on 04/03, hgb improved from 6.5 to 7.8, and remains stable above 7 patient asymptomatic, hold transfusion hypocalcemia with sclerotic bone lesions seen on CT likely due to long standing secondary hyperparathyroid from CKD Continue calcium and vit D supplement, and calcitriol 1 mcg daily Noted to have hard prostate on examination consistent with prostate cancer as per Urology, elevated PSA 22, follow up with outpatient hypokalemia resolved VTE prphylaxis - mechanical due to significant anemia Quality Stroke Does the patient have a stroke diagnosis?: No VTE Prior VTE?: No VTE Risk Level:: Medical - moderate - high VTE Device Contraindication: N/A - Device Ordered VTE Drug Contraindication: N/A - Med Ordered
[2021-04-12 11:44] VITALS: BP 141/63; PULSE 62; RESP 20; TEMP 36.7; O2SAT 98
[2021-04-12 15:32] VITALS: BP 123/64; PULSE 73; RESP 18; TEMP 37; O2SAT 99
[2021-04-12] MEDS: oxyCODONE HCl Immed Release 5 MG TABLET PO ×2 (15:37→21:16)
--- NOTE | 2021-04-12 16:40 | P.PNNP_ITS ---
Subjective Subjective Date of Service: 04/12/21 Interval history: lab holiday no complaints adequate UOP Physical Exam Vital Signs: Vital Signs: Last Vital Signs Temp 98.6 F 04/12/21 15:32 Pulse 73 04/12/21 15:32 Resp 18 04/12/21 15:32 BP 123/64 04/12/21 15:32 Pulse Ox 99 04/12/21 15:32 Body Mass Index 26.8 Const: General: no acute distress Orientation/consciousness: oriented to person, oriented to place, oriented to time and patient oriented x3 Resp: Effort & Inspection: no respiratory distress Cardio: Rate: regular rate Rhythm: regular rhythm Heart sounds: S1 normal heart sound present, S2 normal heart sound present and no murmurs GI: Palpation (GI): Soft to palpation and nontender Auscultation: normal bowel sounds Neuro: General: oriented to person, oriented to place, oriented to time and patient oriented x3 Objective Data Labs CBC & Chem 7: 04/11/21 07:50 04/11/21 07:50 Labs: Laboratory Results - last 24 hr 04/03/21 14:49 PTH Intact 208 H Microbiology Microbiology Results: Microbiology 04/10/21 17:50 Urine Other - Nephrostomy Urine Culture - Final No growth. 04/10/21 17:50 Urine Other - Nephrostomy Urine Culture - Final No growth. 04/01/21 20:05 Urine Catheterized - Zheng Catheter Urine Culture - Final No growth. 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 Matabolic acidosis and Hyperkalemia: started NaBicarb 650mg BID today Hypocalcemic. 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 Time Spent With Patient Time: Total time spent is greater than 50% in coordination of care (as documented) at patient's floor/unit and/or counseling patient: Progress Note: Quality Stroke Does the patient have a stroke diagnosis?: No
[2021-04-12 19:35] VITALS: BP 143/75; PULSE 74; RESP 18; TEMP 37.2; O2SAT 96
[2021-04-12] MEDS: Melatonin 3 MG TABLET 6 MG PO (21:15)
[2021-04-13] VITALS: BP 135/65; PULSE 66; RESP 18; TEMP 36.6; O2SAT 96
[2021-04-13] MEDS: Calcium Carbonate 750 MG TAB.CHEW PO ×2 (03:04→12:08)
[2021-04-13 06:45] LABS: Hematocrit 21.4 % (42-52); Hemoglobin 7.1 g/dl (14.0-18.0); Mean Corpuscular HGB Conc 33.2 g/dl (31.0-36.0); Mean Corpuscular Hemoglobin 28.6 pg (27.0-33.0); Mean Corpuscular Volume 86.3 fL (80-98); Mean Platelet Volume 10.7 fL (9.4-12.4); Platelet Count 193 X10*3/uL (160-400); Red Blood Count 2.48 X10*6/uL (4.60-5.80); Red Cell Distribution Width 13.4 % (11.0-16.0); White Blood Count 5.7 X10*3/uL (4.8-10.8)
[2021-04-13 07:14] VITALS: BP 142/78; PULSE 71; RESP 18; TEMP 36.4; O2SAT 98
[2021-04-13 07:34] LABS: Anion Gap 18 (12-20); Blood Urea Nitrogen 124 mg/dL (9-16); Calcium 6.5 mg/dL (8.4-10.2); Carbon Dioxide 20 mmol/L (22-29); Chloride 104 mmol/L (96-108); Creatinine Clr Calc Pharmacy 8.1; Estimated Glomerular Filt Rate 7; Glucose Random 97 mg/dL (60-115); Potassium 5.1 mmol/L (3.3-5.1); Sodium 137 mmol/L (135-145)
[2021-04-13 07:59] LABS: Albumin Level 3.2 g/dL (3.5-5.0)
[2021-04-13 10:22] LABS: Calcium (PTHI) <5.0
[2021-04-13 11:08] VITALS: BP 137/68; PULSE 63; RESP 20; TEMP 36; O2SAT 95
[2021-04-13] MEDS: Cholecalciferol (Vitamin D3) 25 MCG TABLET 50 MCG PO (12:07)
[2021-04-13] MEDS: calcitrioL 0.25 MCG CAPSULE 1 MCG PO (12:08)
[2021-04-13] MEDS: Bicalutamide 50 MG TABLET PO (12:08)
[2021-04-13] MEDS: Sodium Bicarbonate 650 MG TABLET PO (12:08)
--- NOTE | 2021-04-13 12:59 | W.MHC.F2F ---
Service Date Service Date: 04/13/21 Encounter Date of encounter: 04/13/21 Reasons for Services Reason for mcfp: medication management and GI/ assessment Reason for physical therapy: home safety and mobility, therapeutic exercises, gait/transfer training, assess need for DME, ADL training and energy conservation MD Overseeing Care: [facility] Homebound: Leaving the home is medically contraindicated at this time without the asist of a device and/or another person due th the listed conditions above and below. Reason homebound: weakness related to hospital stay Certification: Based on the above findings, I certify that this patient is confined to the home and needs intermittent mcfp care, physical therapy and/or speech therapy, or continues to need occupational therapy. The patient is under my care, and I have initiated the establishment of the plan of care. The patient will be followed by a physician who will periodically review the plan of care.
--- NOTE | 2021-04-13 13:00 | PM.DS ---
DS: Providers Provider Date of Service: 04/13/21 Date of admission: 04/01/21 22:33 Date of discharge: 04/13/21 Primary care physician: [facility] Admitting clinician: Perico Skaggs Consults: 04/02/21 06:00 Consult to Urology Routine Consulting Provider: Trevor Restrepo Reason for consultation: Bila Hydronephrosis Has provider been notified: No 04/03/21 07:32 Consult to Nephrology Routine Consulting Provider: Young Rodarte Reason for consultation: jessika on ckd Discharging clinician: Sorin Booker DS: Diagnosis Discharge Diagnosis (1) Acute kidney injury: Status: Acute (2) CKD (chronic kidney disease) stage 5, GFR less than 15 ml/min: Status: Acute (3) Anemia in chronic kidney disease: Status: Acute (4) Hypocalcemia: Status: Acute (5) Metabolic acidosis: Status: Acute DS: Summary Hospital Course Hospital Course: From admission history and physical by leadership development consultant PITO Huizar, 04/02/21: 61-year-old patient with underlying history of medical noncompliance as the patient has history of hypertension, BPH, erosive gastritis, anemia of chronic disease with baseline creatinine of 9 and 27 respectively per records in 2019, chronic kidney disease stage 4 with baseline creatinine between 4 and 5, prior hyperkalemia followed by Dr. Mckay in the distant past.? Patient also reports having history of obstructive your all but the in the setting of prostate issues about 2 years ago. Patient presented to the emergency room with complaints of weakness and shortness of breath which has been present for at least 3-4 weeks in an ongoing but worsening manner to the point that he could not tolerated anymore. ?In addition he reports weight loss of approximately 10-15 lb. ?Patient has been experiencing significant fatigue particularly with exertion, he is not able to walk long distances or ride his bike as he used to.? Denies any cough, sputum production, fever chills, no exposure to someone with COVID, has not traveled.? Patient denies any chest pain, abdominal or flank complaints, he still produces urine, otherwise feels fine with section of being significantly weak and tired. In the Emergency room, the patient had normal vital signs, his workup however is significant for hemoglobin of 5.9, hematocrit 16.4 with MCV of 76.6 and an a negative brown stool guaiac.? Venous blood gas revealed pH of 7.13 with bicarb of 4, sodium 128, potassium 4.1, carbon dioxide 6 anion gap 29. BUN 168, creatinine 14.6 (6.4 and 4.9 respectively from labs 2 years ago) his previous creatinine has been as high as 7. He has never undergone dialysis.? Total CK 910. Normal troponin, no elevation of the BNP.? Normal TSH, pending PTH and intact PTH labs.? Calcium 5.2 which corrected with albumin is 6.3. Nephrology was consulted, they recommended further laboratories and calcium gluconate given QT prolongation.? There is no need for emergent dialysis at this point.? Zheng catheter was placed, patient was started on bicarb drip and transferred to the ICU for further care.? Currently patient has no further complaints. The patient was stepped down to the C on 04/03/21. Confusion resolved. 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 He did not require hemodialysis. He underwent cystoscopy and bilateral ureteral stent placement by Dr Restrepo on 04/07/21. Due to persistent hydronephrosis on US, he underwent bilateral nephrostomy tube placement on 04/10/21. Physical examination of the prostate as well as elevated PSA raised suspicion for prostate CA, and he was started on bicalutamide. He was transfused 1 unit of packed red blood cells on 04/03/21 for Hb <7. Anemia was attributed to chronic kidney disease. For hypocalcemia, likely due to longstanding secondary hyperparathyroidism from CKD as evidenced by sclerotic bone lesions on CT, he was given calcium carbonate supplementation plus vitamin D2 and calcitriol. He was discharged home with VNA services with nephrostomy tubes in place bilaterally. Labs in 3 days should be drawn: CBCd, BMP, phosphorous, ionized calcium, albumin. He should follow up with Nephrology and Urology in 1 week, as well as Primary Care in 2 weeks. Time Spent with Patient Time attestation: Total time spent providing and/or coordinating discharge services: 45 Discharge coordination time: Greater than 30 minutes Quality: Stroke Does the patient have a stroke diagnosis?: No Physical Exam Vital Signs: Vital Signs: Last Vital Signs Temp 96.8 F 04/13/21 11:08 Pulse 63 04/13/21 11:08 Resp 20 09/13/21 11:08 BP 137/68 04/13/21 11:08 Pulse Ox 95 04/13/21 11:08 Body Mass Index 26.8 Gen: in no acute distress HEENT: sclera anicteric, moist mucus membranes Neck: supple Lungs: clear to auscultation bilaterally Heart: regular rate and rhythm, no murmurs Abd: soft, non-tender, non-distended : bilateral nephrostomy tubes draining clear urine Ext: no edema Skin: warm/well-perfused Neuro: alert and oriented x3, no focal findings Psych: appropriate affect DS: Data Data Completed and Pending Completed studies during hospitalization [Text1]: Laboratory Results WBC 5.7 X10*3/uL (4.8-10.8) 04/13/21 06:24 RBC 2.48 X10*6/uL (4.60-5.80) L 04/13/21 06:24 Hgb 7.1 g/dl (14.0-18.0) L 04/13/21 06:24 Hct 21.4 % (42-52) L 04/13/21 06:24 MCV 86.3 fL (80-98) 04/13/21 06:24 MCH 28.6 pg (27.0-33.0) 04/13/21 06:24 MCHC 33.2 g/dl (31.0-36.0) 04/13/21 06:24 RDW 13.4 % (11.0-16.0) 04/13/21 06:24 Plt Count 193 X10*3/uL (160-400) 04/13/21 06:24 MPV 10.7 fL (9.4-12.4) 04/13/21 06:24 Immature Gran % (Auto) 0.8 % (0.0-0.4) H 04/03/21 05:32 Neut % (Auto) 79.5 % (45-73) H 04/03/21 05:32 Lymph % (Auto) 8.6 % (20-40) L 04/03/21 05:32 Dunn % (Auto) 9.7 % (2-11) 04/03/21 05:32 Eos % (Auto) 1.0 % (0-4) 04/03/21 05:32 Baso % (Auto) 0.4 % (0-2) 04/03/21 05:32 Lymph # (Auto) 0.6 X10*3/uL (1.2-4.9) L 04/03/21 05:32 Dunn # (Auto) 0.7 X10*3/uL (0.1-1.2) 04/03/21 05:32 Eos # (Auto) 0.1 X10*3/uL (0.0-0.4) 04/03/21 05:32 Baso # (Auto) 0.0 X10*3/uL (0.0-0.2) 04/03/21 05:32 Abs Immat Gran (auto) 0.06 X10*3/uL (0.00-0.03) H 04/03/21 05:32 Absolute Neuts (auto) 5.8 X10*3/uL (2.0-8.3) 04/03/21 05:32 Absolute Nucleated RBC 0.000 X10*3/uL (0.0-0.012) 04/13/21 06:24 Nucleated RBC % (auto) 0.0 /100WBC (0.0-0.2) 04/13/21 06:24 Smear Path Review SEE NOTE 04/01/21 18:03 PT 12.5 SEC (9.9-13.0) 04/01/21 18:03 INR 1.1 (0.9-1.1) 04/01/21 18:03 APTT 31.8 SEC (24.1-38.0) 04/01/21 18:03 D-Dimer 1692 NG/ML 04/01/21 18:03 VBG pH 7.13 (7.32-7.43) L* 04/01/21 21:38 VBG pCO2 13 mmHg 04/01/21 21:38 VBG pO2 69 mmHg 04/01/21 21:38 VBG HCO3 4 mmol/L (22-26) L 04/01/21 21:38 VBG O2 Saturation 88.0 % 04/01/21 21:38 VBG Base Excess -22.0 mmol/L 04/01/21 21:38 Sodium 137 mmol/L (135-145) 04/13/21 06:24 Potassium 5.1 mmol/L (3.3-5.1) 04/13/21 06:24 Chloride 104 mmol/L (96-108) 04/13/21 06:24 Carbon Dioxide 20 mmol/L (22-29) L 04/13/21 06:24 Anion Gap 18 (12-20) 04/13/21 06:24 BUN 124 mg/dL (9-16) H* 04/13/21 06:24 Creatinine 8.10 mg/dL (0.5-1.4) H* 04/13/21 06:24 Estim Creat Clear Calc 8.1 04/13/21 06:24 Estimated GFR 7 04/13/21 06:24 Random Glucose 97 mg/dL (60-115) 04/13/21 06:24 Fasting Glucose 114 mg/dL (60-99) H 04/07/21 05:47 Osmolality 332 mosm/kg (281-305) H 04/01/21 18:03 Lactic Acid 0.6 mmol/L (0.5-2.0) 04/01/21 19:52 Calcium 6.5 mg/dL (8.4-10.2) L D 04/13/21 06:24 Phosphorus 12.0 mg/dL (2.7-4.5) H 04/02/21 05:14 Magnesium 1.7 mg/dL (1.6-2.6) 04/01/21 21:32 Iron 72 mcg/dL (45-160) 04/03/21 14:49 TIBC 152 mcg/dL (228-428) L 04/03/21 14:49 % Saturation 47 % (15-50) 04/03/21 14:49 Unsat Iron Binding 80 ug/dL 04/03/21 14:49 Ferritin 612 ng/mL (20-250) H 04/02/21 05:14 Total Bilirubin 0.9 mg/dL (0.0-1.0) 04/04/21 05:10 Direct Bilirubin 0.3 mg/dL (0.0-0.5) 04/04/21 05:10 AST 3 U/L (5-37) L 04/04/21 05:10 ALT < 6 U/L (0-40) 04/04/21 05:10 Alkaline Phosphatase 69 U/L (39-117) 04/04/21 05:10 Total Creatine Kinase 910 U/L (38-174) H 04/01/21 18:03 Troponin I High Sens 18.6 ng/L (<3.5-35.0) 04/01/21 18:03 B-Natriuretic Peptide 67 pg/mL (<100) 04/01/21 18:02 Total Protein 5.0 g/dL (6.5-8.0) L 04/04/21 05:10 Albumin 3.2 g/dL (3.5-5.0) L 04/13/21 06:24 Lipase 171 U/L (8-78) H 04/01/21 18:03 Total PSA 23.38 ng/mL (0.00-4.00) H 04/03/21 05:32 TSH 2.29 uIU/mL (0.32-4.0) 04/01/21 18:02 PTH Intact 208 pg/mL (14-64) H 04/03/21 14:49 Calcium (PTH Intact) <5.0 04/03/21 14:49 Urine Color YELLOW 04/01/21 19:52 Urine Appearance CLEAR 04/01/21 19:52 Urine pH 6.0 (5.0-8.0) 04/01/21 19:52 Ur Specific [place] 1.010 (1.005-1.025) 04/01/21 19:52 Urine Protein 1+ MG/DL (NEG-TRACE) H 04/01/21 19:52 Urine Glucose (UA) 100 MG/DL (NEG) H 04/01/21 19:52 Urine Ketones NEG MG/DL (NEG) 04/01/21 19:52 Urine Blood 2+ (NEG) H 04/01/21 19:52 Urine Nitrite NEG (NEG) 04/01/21 19:52 Ur Leukocyte Esterase 1+ (NEG) H 04/01/21 19:52 Urine RBC 1-4 /HPF (0) 04/01/21 19:52 Urine WBC 1-4 /HPF (0-4) 04/01/21 19:52 Ur Squamous Epith Cells NONE /LPF 04/01/21 19:52 Urine Bacteria 1+ /LPF 04/01/21 19:52 Urine Osmolality 251 mosm/kg (373-1093) L 04/01/21 19:52 U Random Total Protein 33 mg/dL (<12) H 04/01/21 19:52 Ur Random Sodium 35.0 mmol/L 04/01/21 19:52 Urine Creatinine 63.03 mg/dL 04/01/21 19:52 Urine Opiates Screen Not Detected (Not Detect) 04/01/21 19:52 Urine Fentanyl Screen Not Detected (Not Detect) 04/01/21 19:52 Ur Barbiturates Screen Not Detected (Not Detect) 04/01/21 19:52 Ur Phencyclidine Scrn Not Detected (Not Detect) 04/01/21 19:52 Ur Amphetamines Screen Not Detected (Not Detect) 04/01/21 19:52 U Benzodiazepines Scrn Not Detected (Not Detect) 04/01/21 19:52 Urine Cocaine Screen Not Detected (Not Detect) 04/01/21 19:52 U Marijuana (THC) Screen Not Detected (Not Detect) 04/01/21 19:52 COVID-19 (MIMI) Negative (Negative) 04/01/21 18:03 COVID-19 Clin Com See Note 04/01/21 18:03 Blood Type A Positive 04/01/21 18:07 Antibody Screen NEGATIVE 04/01/21 18:07 Crossmatch See Detail 04/01/21 18:07 Impressions Chest X-Ray 04/01/21 17:44 IMPRESSION: Sclerotic lesion in the left humeral head of uncertain etiology. This was not definitively seen on the prior study but shoulders not included in its entirety on the prior chest x-ray. Clinical correlation recommended. Dedicated shoulder films could be obtained if needed. Abdomen/Pelvis CT 04/02/21 00:05 IMPRESSION: 1. Scattered osteosclerotic lesions throughout the osseous skeleton concerning for metastatic disease. Consider bone scan for further assessment. 2. No acute abnormality of the chest. No suspicious lung lesion. 3. Chronic hydronephrosis and hydroureter of both kidneys similar to CAT scan of 08/31/2018. There is progressive cortical thinning of kidneys bilateral. 4. Zheng catheter within the bladder. Diffuse bladder wall thickening which may be accentuated by the bladder being empty. 4. Diverticulosis of the colon. There is no acute abnormality of the bowel. Chest CT 04/02/21 00:05 IMPRESSION: 1. Scattered osteosclerotic lesions throughout the osseous skeleton concerning for metastatic disease. Consider bone scan for further assessment. 2. No acute abnormality of the chest. No suspicious lung lesion. 3. Chronic hydronephrosis and hydroureter of both kidneys similar to CAT scan of 08/31/2018. There is progressive cortical thinning of kidneys bilateral. 4. Zheng catheter within the bladder. Diffuse bladder wall thickening which may be accentuated by the bladder being empty. 4. Diverticulosis of the colon. There is no acute abnormality of the bowel. Guidance Fluoroscopy 04/07/21 15:32 FINDINGS~\^^ Intraoperative fluoroscopy provided for use by Dr. Restrepo. Please see operative note for detailed findings. Bone Scan Nuclear Medicine 04/07/21 21:35 IMPRESSION: Moderate increased activity seen in the right posterior 6th, left posterior 11th ribs, bilateral humeral heads slightly greater on the left, and right posterior 10th vertebra suspicious and suggestive of metastatic disease. Correlation with right shoulder joint to exclude arthritis versus metastatic disease can be performed. The right shoulder joint was not well visualized on the CT chest exam 04/02/2021. There is mild increased activity in the left hip joint, likely degenerative changes. There are bilateral knee and right hip prostheses producing photopenic defect. Renal Ultrasound 04/10/21 15:26 IMPRESSION: Severe bilateral hydronephrosis not appreciably changed from 04/01/2021 exam. Nephrostomy 04/10/21 17:35 IMPRESSION: Bilateral nephrostomy tube placement. Discharge Plan Discharge Patient Disposition: Home Health Service Discharge Diagnosis: metabolic encephalopathy and metabolic acidosis due to [id number] kidney injury due to obstructive uropathy, likely prostate cancer Referrals: Trevor Restrepo MD [Physician] - 1 Week [facility] [Primary Care Provider] - 1 Week Young Rodarte MD [Physician] - 1 Week Discharge Medications: New bicalutamide 50 mg Tablet 50 mg PO DAILY Qty: 30 RF: 0 calcitriol 0.25 mcg Capsule 1 mcg PO DAILY Qty: 30 RF: 0 cholecalciferol (vitamin D3) 25 mcg (1,000 unit) Tablet 50 mcg PO DAILY Qty: 30 RF: 0 calcium acetate 667 mg tablet 667 mg PO TIDAC Qty: 90 RF: 0 Continued Centrum Silver Men 300-600-300 mcg Tablet 1 tab PO DAILY RF: 0 Discharge Orders: Discharge Order (Routine); Ordered 04/13/21 Ordered By: Sorin Booker Diet: advance to usual diet Activity on Discharge: As tolerated Stand Alone Forms: Patient Portal Discharge page Other Ambulatory Orders: Albumin Level (Routine) Timeframe: 3 Days Facility: [facility] - Location: Laboratory Ordered By: Sorin Booker Basic Metabolic Panel (Routine) Timeframe: 3 Days Facility: [facility] - Location: Laboratory Ordered By: Sorin Booker Calcium, Ionized (Routine) Timeframe: 3 Days Facility: [facility] - Location: Laboratory Ordered By: Sorin Booker Complete Blood Count Auto Diff (Routine) Timeframe: 3 Days Facility: [facility] - Location: Laboratory Ordered By: Sorin Booker Phosphorus (Routine) Timeframe: 3 Days Facility: [facility] - Location: Laboratory Ordered By: Sorin Booker Care Plan Goals: improvement in kidney function Health Concerns: metabolic encephalopathy and metabolic acidosis due to [id number] kidney injury due to obstructive uropathy, likely prostate cancer Plan of Treatment: repeat labs in 3 days: CBCd, BMP, albumin, ionized calcium, phosphorous follow up in 1 week with Nephrology follow up in 1 week with Urology avoid all nephrotoxins [like NSAIDs] take biclutamide 50 mg daily, calcitriol 1 gram daily, vitamin D3 50 mcg daily, and calcium acetate 667 mg 3x a day with meals see your primary care doctor in 2 weeks Assessment: as above
--- NOTE | 2021-04-13 13:28 | MHC.CM.PN ---
Addendum entered by Kat Cortés 04/13/21 14:51: TIM INFORMED PTS PCP COULD NOT BE VERIFIED. CM MET WITH PT WHO REPORTS HE NEVER CONNECTED WITH A NEW PCP ONCE MANUEL GUERRERO LEFT THE OFFICE. CM EXPLAINED PT COULD NOT HAVE VNA IF HE DID NOT HAVE A PCP. PT IS AWARE HE WILL NEED TO COME IN FOR FOLLOW UP LABS AND REPORTS HE USUALLY FINDS A RIDE TO APPOINTMENTS. PT DISCHARGED HOME TODAY WITH NO SERVICES. PT ENCOURAGED TO [facility]BT[facility] A NEW PCP SISTER TRANSPORTED Original Note: PT CLEARED TO [facility] HOME TODAY WITH VNA. REFERRAL PLACED TO NA. PT TO ARRANGE TRANSPORT
== END 2021-04-13 14:30 | disposition home health service (06) | DRG 722 ==
LOC: HO.ED 22:26 → HO.ICU 22:41 → HO.IMC 04-02 08:51
PROVIDERS: Hospitalist; Internal Medicine; Internal Medicine Nephrology; Radiology Diagnostic Radiology; Urology; Admitting Provider Physician Assistant Medical; Emergency Provider Emergency Medicine Emergency Medical Services; Visit Provider Family Medicine
PROC: 0TJB8ZZ Inspection of Bladder, Via Natural or Artificial Opening Endoscopic (ICD-10-PCS; CPT 52000; principal; 2021-04-07 16:30)
PROC: 0T9430Z Drainage of Left Kidney Pelvis with Drainage Device, Percutaneous Approach (ICD-10-PCS; principal; 2021-04-10 15:50)
DX: C61 Malignant neoplasm of prostate (principal); G93.41 Metabolic encephalopathy; N17.9 Acute kidney failure, unspecified; E87.2 Acidosis; N13.30 Unspecified hydronephrosis; N25.81 Secondary hyperparathyroidism of renal origin; N18.5 Chronic kidney disease, stage 5; E83.51 Hypocalcemia; E87.6 Hypokalemia; Z20.822 Contact with and (suspected) exposure to COVID-19; M85.9 Disorder of bone density and structure, unspecified; D63.1 Anemia in chronic kidney disease; Z91.19 Patient's noncompliance with other medical treatment and regimen; Z87.891 Personal history of nicotine dependence; Z79.899 Other long term (current) drug therapy
CPT/HCPCS: 36415; 36430; 50432; 71046; 71250; 74176; 76775; 78306; 80048; 80053; 80076; 80307; 81001; 81003; 82040; 82248; 82550; 82728; 82803; 83540; 83605; 83690; 83735; 83880; 83930; 83935; 83970; 84100; 84153; 84156; 84300; 84443; 84484; 85025; 85027; 85379; 85610; 85730; 86850; 86900; 86901; 86923; 87086; 87635; 88112; 93005; 96361; 96365; 96375; 96376; 99152; 99153; 99285; 99291; 99292; A9503; C1729; C1758; C1894; C2617; J0610; J0690; J2270; J3010; P9016; Q9967

== ENCOUNTER 2021-04-16 12:22 | Outpatient (REF) | payer MEDICARE, SELFPAY ==
[2021-04-16 13:32] LABS: MANUAL DIFF FLAG NO
[2021-04-16 14:33] LABS: Basophils Absolute Auto 0.1 X10*3/uL (0.0-0.2); Eosinophils Absolute Auto 0.2 X10*3/uL (0.0-0.4); Eosinophils Percent Auto 2.7 % (0-4); Hematocrit 22.4 % (42-52); Hemoglobin 7.1 g/dl (14.0-18.0); Imm Gran Abs Auto 0.04 X10*3/uL (0.00-0.03); Imm Gran Pct Auto 0.7 % (0.0-0.4); Lymphocytes Absolute Auto 0.6 X10*3/uL (1.2-4.9); Lymphocytes Percent Auto 10.3 % (20-40); Mean Corpuscular HGB Conc 31.7 g/dl (31.0-36.0); Mean Corpuscular Hemoglobin 28.3 pg (27.0-33.0); Mean Corpuscular Volume 89.2 fL (80-98); Mean Platelet Volume 10.9 fL (9.4-12.4); Monocytes Absolute Auto 0.6 X10*3/uL (0.1-1.2); Monocytes Percent Auto 10.7 % (2-11); Neutrophils Absolute Auto 4.4 X10*3/uL (2.0-8.3); Neutrophils Percent Auto 74.6 % (45-73); Platelet Count 267 X10*3/uL (160-400); Red Blood Count 2.51 X10*6/uL (4.60-5.80); Red Cell Distribution Width 13.3 % (11.0-16.0); White Blood Count 5.9 X10*3/uL (4.8-10.8)
[2021-04-16 15:15] LABS: Albumin Level 3.7 g/dL (3.5-5.0); Anion Gap 21 (12-20); Calcium 6.8 mg/dL (8.4-10.2); Carbon Dioxide 20 mmol/L (22-29); Chloride 104 mmol/L (96-108); Glucose Random 126 mg/dL (60-115); Potassium 5.5 mmol/L (3.3-5.1); Sodium 139 mmol/L (135-145)
[2021-04-16 16:27] LABS: Blood Urea Nitrogen 109 mg/dL (9-16); Estimated Glomerular Filt Rate 6
[2021-04-20 16:42] LABS: Calcium, Ionized 3.5 mg/dL (4.8-5.6)
== END 2021-04-16 12:23 | disposition home or self-care (01) ==
LOC: HO.LAB 12:22
PROVIDERS: Visit Provider Family Medicine
DX: N17.9 Acute kidney failure, unspecified (principal); N18.5 Chronic kidney disease, stage 5; D64.9 Anemia, unspecified
CPT/HCPCS: 36415; 80048; 82040; 82330; 84100; 85025

== ENCOUNTER → 2021-05-07 10:36 | Outpatient (BNVA) | payer MEDICARE, MEDICAID, SELFPAY | PROVIDERS: Visit Provider Urology | DX: N13.30 Unspecified hydronephrosis (principal); R97.20 Elevated prostate specific antigen [PSA] | CPT/HCPCS: 99212 ==

== ENCOUNTER 2021-05-28 14:21 | Inpatient (IN) | payer MEDICARE, SELFPAY ==
--- NOTE | ~2021-05-28 | IR_ITS ---
PROCEDURE: IR INSERTION OF CENTRAL VENOUS CATHETER CLINICAL INFORMATION: Renal failure. COMPARISON: None TECHNIQUE: Procedure and risks and benefits including bleeding, infection and pneumothorax were discussed with the patient and informed consent was obtained. All elements of maximal sterile barrier technique followed including use of cap, mask, sterile gown, sterile gloves, a sterile full body drape and hand hygiene. Also followed skin preparation with 2% chlorhexidine for cutaneous antisepsis, and sterile ultrasound preparation with sterile gel and probe cover when applicable. The right neck was prepped and draped in the usual sterile fashion. The skin and soft tissues were anesthetized with 1% lidocaine plain. Using ultrasound guidance, a 5-Dominican micropuncture system, right internal jugular vein access was obtained. Over an .018 wire, a 5-Dominican dilator was positioned in the SVC. An .035 wire was advanced through 5-Dominican dilator into the IVC. Following serial dilatation, a 12-Dominican 13 cm in length triple-lumen temporary Mahurkar dialysis catheter was positioned. Catheter tip is in the SVC. Both ports flushed easily, had good blood return, and were instilled with 1 mL heparin 1000 unit per mL solution. The third small IV port was flushed with saline. Real-time ultrasound guidance was used to document vein patency and for needle entry. A formal ultrasound picture was recorded. Fluoroscopy time: 0.5 minutes. DAP: 19 cGy-cm2. 1 saved fluoroscopic image. FINDINGS: There is a right internal jugular dialysis catheter with tip projecting over the SVC. IR/IR cvc insert non tunnel IMPRESSION: Right internal jugular 12-Dominican 13 cm in length triple-lumen temporary Mahurkar dialysis catheter placement.
--- NOTE | ~2021-05-28 | CT_ITS ---
EXAMINATION: CT ABDOMEN AND PELVIS WITHOUT CONTRAST CLINICAL INFORMATION: Bilateral nephrostomy tubes. Evaluate for tube and stent placement. COMPARISON: Most recent renal ultrasound and nephrostomy dated 04/10/2021. CT abdomen/pelvis dated 04/02/2021. TECHNIQUE: Multidetector volumetric imaging was performed from the superior aspect of the liver through the pubic symphysis. Sagittal and coronal reformatted images were obtained on the technologist's workstation. This CT examination was performed using dose optimization techniques as appropriate, variously including the following: *Automated exposure control *Adjustment of mA and/or kV according to patient size (this includes techniques or standardized protocols for targeted exams where dose is matched to indication/reason for exam; i.e. extremities or head) *Use of iterative reconstruction technique DLP: 468 mGy-cm FINDINGS: LUNG BASES: The visualized lung bases are unremarkable. LIVER, GALLBLADDER, AND BILIARY TREE: The liver is normal in size, shape, and attenuation. No focal hepatic lesion or biliary ductal dilatation is present. The gallbladder is unremarkable with no evidence of radiopaque gallstones, gallbladder wall thickening, or obvious pericholecystic inflammatory changes. PANCREAS: Unremarkable. SPLEEN: Unremarkable. ADRENAL GLANDS: Unremarkable. KIDNEYS AND URETERS: There is mild asymmetric atrophy of the left kidney. There are bilateral percutaneous nephrostomy tubes in appropriate position. There are bilateral ureteral stents in appropriate position. No hydroureteronephrosis. Nonspecific bilateral perinephric stranding appears unchanged. No renal or ureteral stone. BLADDER: Largely obscured by streak artifact. Partially distended. GASTROINTESTINAL TRACT: Sigmoid diverticulosis without evidence of acute diverticulitis. No small or large bowel obstruction. Unremarkable appendix. PERITONEAL CAVITY: No intra-abdominal free air or free fluid. ABDOMINAL WALL: No significant hernia is appreciated. LYMPH NODES: No significant lymphadenopathy. VASCULAR: No abdominal aortic dilatation. Scattered atherosclerotic calcifications. PELVIC VISCERA: Prostate calcifications are redemonstrated. OSSEOUS STRUCTURES: Multiple sclerotic foci are redemonstrated throughout the visualized osseous structures, similar when compared to the recent CT abdomen/pelvis and concerning for metastases. Right hip arthroplasty without evidence of complication. CT/CT abdomen pelvis wo con IMPRESSION: 1. Bilateral percutaneous nephrostomy tubes and bilateral ureteral stents in appropriate position. No hydronephrosis or hydroureter. No associated fluid collection or new/increased inflammatory change. 2. Largely obscured urinary bladder which is partially distended. 3. Redemonstration of osseous sclerotic foci, concerning for metastases which appear similar when compared to the prior examination. 4. Additional chronic findings are unchanged.
--- NOTE | ~2021-05-28 | IR_ITS ---
PROCEDURE: IR INSERTION OF TUNNEL CATHETER CLINICAL INFORMATION: Renal failure. COMPARISON: None TECHNIQUE: Procedure and risks and benefits including bleeding, infection and pneumothorax were discussed with the patient and informed consent was obtained. All elements of maximal sterile barrier technique followed including use of cap, mask, sterile gown, sterile gloves, a sterile full body drape and hand hygiene. Also followed skin preparation with 2% chlorhexidine for cutaneous antisepsis, and sterile ultrasound preparation with sterile gel and probe cover when applicable. The right neck and chest were prepped and draped in the usual sterile fashion. The skin and soft tissues of the right lower neck were anesthetized with 1% lidocaine plain. A small incision was made. Using ultrasound guidance and a 5-Gu[place] micropuncture system, right internal jugular vein access was obtained. Over an .018 wire, a 5-[place] dilator was positioned in the SVC. The skin and soft tissues of the right upper anterior chest were anesthetized with 1% lidocaine plain. A small incision was made. A subcutaneous tunnel from the chest to the neck incision was anesthetized with 1% lidocaine plain. Using a tunneler, a 14.5-[place] 23 cm in length Palindrome permacath was tunneled from the chest to the neck incision. An .035 guidewire was advanced through the 5-[place] dilator into the right atrium. Following serial dilatation and through a peel-away sheath, a 14.5-[place] 23 cm in length Palindrome permacath was positioned centrally. Catheter tip is at the cavoatrial junction. The neck incision was closed with a 3-0 absorbable subcuticular suture. The chest incision was closed using a 3-0 absorbable mattress suture. Both ports had good blood return, flushed easily and were instilled with heparin 1.9 mL 1000 unit per mL solution. Real-time ultrasound guidance was used to document vein patency and for needle entry. A formal ultrasound picture was recorded. Patient received Versed 1 mg and fentanyl 50 mcg and Kefzol 2 grams intravenously during the procedure. Total sedation time was 24 minutes. Fluoroscopy time: 0.7 minutes. Patient dose: 65 cGy-cm2. 1 saved fluoroscopic image. FINDINGS: There is a right internal jugular permacath with tip projecting over the cavoatrial junction. IR/IR cvc insert central tunnel IMPRESSION: 14.5-[place] 23 cm in length Palindrome permacath placement.
[2021-05-28 14:23] VITALS: BP 154/60; PULSE 80; RESP 18; TEMP 36.8; O2SAT 100; BMI 23.8
[2021-05-28 15:24] VITALS: BP 134/69; PULSE 76; RESP 18; TEMP 36.8; O2SAT 98
[2021-05-28 15:35] LABS: MANUAL DIFF FLAG NO
[2021-05-28 15:36] LABS: Basophils Absolute Auto 0.1 X10*3/uL (0.0-0.2); Basophils Percent Auto 0.3 % (0-2); Eosinophils Percent Auto 0.1 % (0-4); Hematocrit 21.5 % (42-52); Hemoglobin 7.4 g/dl (14.0-18.0); Imm Gran Abs Auto 1.04 X10*3/uL (0.00-0.03); Imm Gran Pct Auto 4.6 % (0.0-0.4); Lymphocytes Absolute Auto 0.6 X10*3/uL (1.2-4.9); Lymphocytes Percent Auto 2.7 % (20-40); Mean Corpuscular HGB Conc 34.4 g/dl (31.0-36.0); Mean Corpuscular Hemoglobin 29.6 pg (27.0-33.0); Mean Platelet Volume 10.6 fL (9.4-12.4); Monocytes Absolute Auto 0.9 X10*3/uL (0.1-1.2); Monocytes Percent Auto 4.1 % (2-11); Neutrophils Absolute Auto 19.8 X10*3/uL (2.0-8.3); Neutrophils Percent Auto 88.2 % (45-73); Platelet Count 468 X10*3/uL (160-400); Red Cell Distribution Width 14.5 % (11.0-16.0); White Blood Count 22.4 X10*3/uL (4.8-10.8)
[2021-05-28 15:58] LABS: Appearance Urine CLOUDY; Color Urine BROWN; Glucose Urine UA 100 MG/DL (NEG); Leukocyte Esterase Urine 3+ (NEG); Nitrite Urine POS (NEG); Specific Gravity - Urine 1.015 (1.005-1.025); UACC Culture Trigger YES; Urine Blood 3+ (NEG); Urine Ketones 5 MG/DL (NEG); Urine Protein 3+ MG/DL (NEG-TRACE)
[2021-05-28 16:01] LABS: Appearance Urine CLOUDY; Color Urine YELLOW; Glucose Urine UA NEG (NEG); Nitrite Urine POS (NEG); Specific Gravity - Urine 1.025 (1.005-1.025); UACC Culture Trigger YES; Urine Blood 3+ (NEG); Urine Ketones NEG (NEG); Urine Protein 3+ MG/DL (NEG-TRACE)
[2021-05-28 16:04] LABS: Leukocyte Esterase Urine 3+ (NEG)
[2021-05-28 16:08] LABS: WBC Urine TNTC /HPF (0-4)
[2021-05-28 16:10] LABS: Bacteria Urine 1+ /LPF
[2021-05-28 16:12] LABS: Bacteria Urine 1+ /LPF
[2021-05-28 16:17] LABS: Alanine Aminotransferase 68 U/L (0-40); Albumin Level 3.7 g/dL (3.5-5.0); Alkaline Phosphatase 214 U/L (39-117); Anion Gap 27 (12-20); Aspartate Amino Transferase 16 U/L (5-37); Bilirubin Total 0.2 mg/dL (0.0-1.0); Blood Urea Nitrogen 152 mg/dL (9-16); Calcium 6.9 mg/dL (8.4-10.2); Carbon Dioxide 7 mmol/L (22-29); Chloride 99 mmol/L (96-108); Creatinine Clr Calc Pharmacy 5.3; Estimated Glomerular Filt Rate 5; Glucose Random 203 mg/dL (60-115); Potassium 5.5 mmol/L (3.3-5.1); Sodium 127 mmol/L (135-145); Total Protein 6.8 g/dL (6.5-8.0)
--- NOTE | 2021-05-28 17:05 | ED.MALEGU ---
HPI - Male Genitourinary General Chief complaint: Urogenital-Male Stated complaint: blood in nephrostomy bag Time Seen by Provider: 05/28/21 15:41 Source: patient Mode of arrival: ambulatory Limitations: no limitations History of Present Illness HPI Narrative: 61-year-old male who presents emergency department for evaluation of change in his urine from his nephrostomy tubes. The patient states that normally his urine is clear, over the last 2-3 days the urine has been cloudy and now he has noted some blood coming out of 1 of the urostomy tubes. He states that he has been feeling weak, fatigued and had a decreased appetite. He has had nausea but no vomiting. He denied chest pain, shortness of breath or abdominal pain. He states that he has not made any urine since the nephrostomy tubes have been placed he does not feel like his bladder is distended. 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 On 04/07/2021 he had bilateral nephrostomy tubes placed by Dr. Restrepo. The patient did follow-up with Dr. Restrepo on 05/07/2021. The patient had a recent urology office visit on 05/07/2021 and he was found to have a high PSA and is scheduled for a prostate biopsy. Related Data Home Medications Medication Instructions Recorded Confirmed lrhtylnw-dod-udfzm acid 300 1 tab PO DAILY 04/01/21 04/01/21 mcg-lycopene 600 mcg-lutein 300 mcg tablet (Centrum Silver Men) Previous Rx's Medication Instructions Recorded bicalutamide 50 mg tablet 50 mg PO DAILY #30 tab 04/13/21 calcitriol 0.25 mcg capsule 1 mcg PO DAILY #30 cap 04/13/21 calcium acetate 667 mg tablet 667 mg PO TIDAC #90 tab 04/13/21 cholecalciferol (vitamin D3) 25 50 mcg PO DAILY #30 tab 04/13/21 mcg (1,000 unit) tablet ciprofloxacin HCl 500 mg tablet 500 mg PO BID 3 Days #6 tab 05/07/21 Allergies Allergy/AdvReac Type Severity Reaction Status Date / Time No Known Allergies Allergy Verified 05/28/21 14:23 [No Known Allergies*] Review of Systems Review of Systems: Yes all other systems are reviewed and are negative [facility] Past Medical History [facility] Narrative: Social history: The patient denies tobacco use. He denies alcohol use. He states that he smokes marijuana 2 times a day. Medical History Enlarged prostate Kidney disease Social History Social History Household Members: None Housing: Other Housing Other:: mobile home Do you presently have visiting nurse or other home services: No Patient Tobacco Use Status: Former Tobacco user Tobacco use type: Cigarette e-Cigarette/Vaping Use: Former Use Advance Directives: No Advance Directives Information Provided: No service: No Current occupational status: disabled Physical Exam Vital Signs: Vital Signs: Last Vital Signs Temp 98.2 F 05/28/21 15:24 Pulse 76 05/28/21 15:24 Resp 18 05/28/21 15:24 BP 134/69 05/28/21 15:24 Pulse Ox 98 05/28/21 15:24 Body Mass Index 23.8 Const: General: cooperative and no acute distress Orientation/consciousness: oriented to person and oriented to place Limitations: no limitations HENMT: Head: Yes normal to inspection, Yes normocephalic and Yes atraumatic Ears: external ears normal General nose exam: Normal external nose present Face and sinus: Yes normal facial exam Mouth: Normal oral and palatal mucosa present Throat: Yes posterior oropharynx normal Eyes: General: appearance normal, both eyes and all related structures Pupils: Equal, round and reactive pupils present Neck: Neck: Yes normal visual inspection, Yes no lymphadenopathy, Yes trachea midline and Yes supple Chest: Chest palpation & inspection: normal inspection of the chest and normal palpation of entire chest wall Resp: Effort & Inspection: normal respiratory effort and able to speak in complete sentences Auscultation: clear to auscultation bilaterally Cardio: Rate: regular rate Rhythm: regular rhythm Heart sounds: S1 normal heart sound present, S2 normal heart sound present and no murmurs GI: Inspection: Yes normal to inspection Palpation (GI): Soft to palpation, nontender and no guarding Auscultation: normal bowel sounds : Other: Bilateral nephrostomy tubes, dressings not taken down. General: Yes no CVA tenderness Back/Spine/Pelvis: Back: no CVA tenderness Skin: General skin exam: no rashes or lesions noted Neuro: General: oriented to person and oriented to place Cranial nerves: Yes CN's II-XII intact bilaterally and Yes Equal, round and reactive pupils present Cognition (Neuro): normal cognition Motor exam (neuro): 5/5 motor strength present throughout Extrem: General: Yes normal to inspection Psych: Appearance: grossly normal Speech and movement: Normal speech and movement present Affect: normal affect Attitude: cooperative Thought process: Normal thought process present Thought content: Normal thought content present Course Course Course Narrative: 61-year-old male who presents emergency department for evaluation of fatigue, change in appetite, nausea and change in the character of his urine coming out of his bilateral nephrostomy tubes. He states that normally, the urine is clear but over the past 3 days the urine has become cloudy and now bloody. Vital signs reveal that he was hypertensive with a blood pressure 154/60 otherwise were unremarkable. Physical examination did reveal bilateral nephrostomy tubes otherwise was unremarkable. 1635: [place] [address]. The patient has chronic anemia with an H&H of 7.421.5. Patient's BUN creatinine are elevated at 152 and 11.3, he has had similar elevations in the past. Alk-phos was elevated 214. Revealed 3+ blood, 3+ protein, 3+ leukocyte esterase positive nitrates, positive glucose. Microscopic revealed 150 WBCs, 150 RBCs and 1+ bacteria. The patient's presentation is consistent with urinary tract infection, most likely pyelonephritis. Patient was ordered to get ceftriaxone 1 g IV. I did discuss the patient's presentation with Dr. Restrepo he recommended a Zheng, however the patient does not make urine he does not feel like his bladder is distended. I will check a bladder scan on him. I will also obtain a CT scan of the patient's abdomen pelvis without contrast to determine the position of the nephrostomy tubes and the ureteral stents. I will discuss admission with the hospitalist. 1757: Bladder scan revealed 75 cc of urine in the patient's bladder therefore a Zheng catheter was not placed. I did present the patient to the covering hospitalist, and the patient will be admitted to the hospital service for further management. MDM - Male Genitourinary Lab Data Result diagrams: 05/28/21 15:30 05/28/21 15:30 Labs: Lab Results 05/28/21 05/28/21 05/28/21 Range/Units 15:30 15:30 15:46 WBC 22.4 H (4.8-10.8) X10*3/uL RBC 2.50 L (4.60-5.80) X10*6/uL Hgb 7.4 L (14.0-18.0) g/dl Hct 21.5 L (42-52) % MCV 86.0 (80-98) fL MCH 29.6 (27.0-33.0) pg MCHC 34.4 (31.0-36.0) g/dl RDW 14.5 (11.0-16.0) % Plt Count 468 H D (160-400) X10*3/uL MPV 10.6 (9.4-12.4) fL Immature Gran % (Auto) 4.6 H (0.0-0.4) % Neut % (Auto) 88.2 H (45-73) % Lymph % (Auto) 2.7 L (20-40) % [place] % (Auto) 4.1 (2-11) % Eos % (Auto) 0.1 (0-4) % Baso % (Auto) 0.3 (0-2) % Lymph # (Auto) 0.6 L (1.2-4.9) X10*3/uL [place] # (Auto) 0.9 (0.1-1.2) X10*3/uL Eos # (Auto) 0.0 (0.0-0.4) X10*3/uL Baso # (Auto) 0.1 (0.0-0.2) X10*3/uL Abs Immat Gran (auto) 1.04 H (0.00-0.03) X10*3/uL Absolute Neuts (auto) 19.8 H (2.0-8.3) X10*3/uL Absolute Nucleated RBC 0.000 (0.0-0.012) X10*3/uL Nucleated RBC % (auto) 0.0 (0.0-0.2) /100WBC Sodium 127 L (135-145) mmol/L Potassium 5.5 H (3.3-5.1) mmol/L Chloride 99 (96-108) mmol/L Carbon Dioxide 7 L* D (22-29) mmol/L Anion Gap 27 H (12-20) BUN 152 H* D (9-16) mg/dL Creatinine 11.30 H* (0.5-1.4) mg/dL Estim Creat Clear Calc 5.3 Estimated GFR 5 Random Glucose 203 H D (60-115) mg/dL Calcium 6.9 L (8.4-10.2) mg/dL Total Bilirubin 0.2 (0.0-1.0) mg/dL AST 16 D (5-37) U/L ALT 68 H (0-40) U/L Alkaline Phosphatase 214 H D (39-117) U/L Lactate Dehydrogenase (118-273) U/L Total Protein 6.8 D (6.5-8.0) g/dL Albumin 3.7 (3.5-5.0) g/dL Urine Color YELLOW Urine Appearance CLOUDY Urine pH 6.0 (5.0-8.0) Ur Specific [place] 1.025 (1.005-1.025) Urine Protein 3+ H (NEG-TRACE) MG/DL Urine Glucose (UA) NEG (NEG) MG/DL Urine Ketones NEG (NEG) MG/DL Urine Blood 3+ H (NEG) Urine Nitrite POS H (NEG) Ur Leukocyte Esterase 3+ H (NEG) Urine RBC 15-29 H (0) /HPF Urine WBC TNTC H (0-4) /HPF Ur Squamous Epith Cells NONE /LPF Urine Bacteria 1+ /LPF 05/28/21 05/28/21 Range/Units 15:46 16:48 WBC (4.8-10.8) X10*3/uL RBC (4.60-5.80) X10*6/uL Hgb (14.0-18.0) g/dl Hct (42-52) % MCV (80-98) fL MCH (27.0-33.0) pg MCHC (31.0-36.0) g/dl RDW (11.0-16.0) % Plt Count (160-400) X10*3/uL MPV (9.4-12.4) fL Immature Gran % (Auto) (0.0-0.4) % Neut % (Auto) (45-73) % Lymph % (Auto) (20-40) % [place] % (Auto) (2-11) % Eos % (Auto) (0-4) % Baso % (Auto) (0-2) % Lymph # (Auto) (1.2-4.9) X10*3/uL [place] # (Auto) (0.1-1.2) X10*3/uL Eos # (Auto) (0.0-0.4) X10*3/uL Baso # (Auto) (0.0-0.2) X10*3/uL Abs Immat Gran (auto) (0.00-0.03) X10*3/uL Absolute Neuts (auto) (2.0-8.3) X10*3/uL Absolute Nucleated RBC (0.0-0.012) X10*3/uL Nucleated RBC % (auto) (0.0-0.2) /100WBC Sodium (135-145) mmol/L Potassium (3.3-5.1) mmol/L Chloride (96-108) mmol/L Carbon Dioxide (22-29) mmol/L Anion Gap (12-20) BUN (9-16) mg/dL Creatinine (0.5-1.4) mg/dL Estim Creat Clear Calc Estimated GFR Random Glucose (60-115) mg/dL Calcium (8.4-10.2) mg/dL Total Bilirubin (0.0-1.0) mg/dL AST (5-37) U/L ALT (0-40) U/L Alkaline Phosphatase (39-117) U/L Lactate Dehydrogenase 154 (118-273) U/L Total Protein (6.5-8.0) g/dL Albumin (3.5-5.0) g/dL Urine Color BROWN Urine Appearance CLOUDY Urine pH 5.0 (5.0-8.0) Ur Specific [place] 1.015 (1.005-1.025) Urine Protein 3+ H (NEG-TRACE) MG/DL Urine Glucose (UA) 100 H (NEG) MG/DL Urine Ketones 5 (NEG) MG/DL Urine Blood 3+ H (NEG) Urine Nitrite POS H (NEG) Ur Leukocyte Esterase 3+ H (NEG) Urine RBC 76-150 H (0) /HPF Urine WBC 76-150 H (0-4) /HPF Ur Squamous Epith Cells NONE /LPF Urine Bacteria 1+ /LPF Discharge Plan Discharge Clinical Impression: Urinary tract infection, Chronic kidney disease Patient Disposition: Admitted As Inpatient
[2021-05-28] MEDS: cefTRIAXone sodium 1 GM in 0.9 % Sodium Chloride 50 ML IV (17:08)
[2021-05-28 17:13] LABS: Lactate Dehydrogenase 154 U/L (118-273)
[2021-05-28] MEDS: Acetaminophen 325 MG TABLET 975 MG PO (18:17)
[2021-05-28] MEDS: oxyCODONE HCl Immed Release 5 MG TABLET PO (18:17)
--- NOTE | 2021-05-28 18:26 | PM.IMHP ---
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 Restrepo on 04/07/2021 due to persistent hydronephrosis on ultrasound he underwent bilateral nephrostomy tube placement on 04/10/2021, patient is being followed closely by Dr. Restrepo due to elevated PSA and is scheduled to undergo prostate biopsy however patient presented to [facility] today for evaluation of change in his urine from his nephrostomy tubes,normally his urine is clear, over the last 2-3 days he noted cloudy urine and and since this morning noted some blood coming out of right nephrostomy tube, he is also complaining of feeling weak, fatigued and had a decreased appetite, associated with nausea but no vomiting, he denies any fever chills rigors, he denies abdominal pain, denies chest pain, no shortness of breath he does complain of some discomfort at lower back around site of nephrostomy tubes that seems to be chronic In the emergency room Laboratory evaluation revealed an elevated WBC of 22,400, H&H is stable at 7.4/21.5.? Patient's BUN creatinine are elevated at 152 and 11.3, his last creatinine was 8.46 on 04/16 Urinalysis Revealed 3+ blood, 3+ protein, 3+ leukocyte esterase positive nitrates, positive glucose.? Microscopic revealed 150 WBCs, 150 RBCs and 1+ bacteria. Patient will be admitted to medical floor with a diagnosis of acute pyelonephritis. Review of Systems Review of Systems: General no headache , no dizziness no fever chills. CVS no chest pain, no palpitation. Respiratory no cough, no sob. Gastrointestinal nausea, no vomiting, no abdominal pain PMFSH Medical History Enlarged prostate Kidney disease Pertinent family history: No family history of premature coronary artery disease. Social History Household Members: Other Household Members Other:: sister Housing: House Housing Other:: mobile home Do you presently have visiting nurse or other home services: No Patient Tobacco Use Status: Former Tobacco user Tobacco use type: Cigarette e-Cigarette/Vaping Use: Former Use Use of substances other than those prescribed or required for medical reasons: Yes Substance Use Type: Marijuana Substance Use Frequency: Daily Last Used Substance Other:: yesterday evening Currently Displaying Signs/Symptoms of Drug Intoxication Withdrawal: No Any prior treatment program specific to substance use: No Have you been hit, kicked, punched, or otherwise hurt by someone within the past year? If so, by whom?: No Do you feel safe in your current relationship?: Yes Is there a partner from a previous relationship who is making you feel unsafe now?: No Are you made to feel afraid or neglected: No Judaism Healthcare Practices: baptism Advance Directives: No Advance Directives Information Provided: No Do you have thoughts of harming others: None Do you have a plan to hurt others: No Plan Recently lost weight without trying: Yes How much weight loss: 14-23 pounds Eating poorly because of decreased appetite: Yes Nutrition screen score: 5 Poor oral hygiene: No service: No Current occupational status: disabled Meds Allergies Allergy/AdvReac Type Severity Reaction Status Date / Time No Known Allergies Allergy Verified 05/28/21 14:23 [No Known Allergies*] Active Medications: Current Medications Acetaminophen (Acetaminophen 325 Mg Tablet) 650 mg PO Q6H PRN PRN Reason: Pain, Mild (Pain Scale 1-3) Sodium Chloride (Ns) 1,000 mls @ 100 mls/hr IVCONT .Q10H FREIDA Stop: 05/29/21 04:29 Ceftriaxone Sodium 1 gm/ (Sodium Chloride) 50 mls @ 100 mls/hr IV Q24H [facility] Ondansetron HCl (Ondansetron Hcl 4 Mg/2 Ml Vial) 4 mg IVPUSH Q8H PRN PRN Reason: Nausea and Vomiting Sodium Chloride (0.9 % Sodium Chloride Flush 3 Ml Syringe) 3 ml IVFLUSH QSHIFT [facility] Home Medications Medication Instructions Recorded Confirmed Last Taken Type obxnuckz-xri-jeefs acid 300 1 tab PO DAILY 04/01/21 04/01/21 03/31/21 History mcg-lycopene 600 mcg-lutein 300 mcg tablet (Centrum Silver Men) Physical Exam Vital Signs and Narrative: Vital Signs: Last Vital Signs Temp 98.2 F 05/28/21 15:24 Pulse 76 05/28/21 15:24 Resp 18 05/28/21 15:24 BP 134/69 05/28/21 15:24 Pulse Ox 98 05/28/21 15:24 Body Mass Index 23.8 Gen: Alert oriented x3, no acute distress HEENT: sclera anicteric, moist mucus membranes Neck: supple Lungs: clear to auscultation bilaterally Heart: regular rate and rhythm, no murmurs Abd: soft, non-tender, non-distended : bilateral nephrostomy tubes right tube with being tinged urine cloudy appearing, left nephrostomy tube draining cloudy urine , no blood Ext: no edema Skin: warm/well-perfused Neuro: alert and oriented x3, no focal findings Psych: appropriate affect Results Labs CBC and Chem 7: 05/29/21 06:28 05/29/21 06:00 Labs: Laboratory Results - last 24 hr 05/28/21 05/28/21 05/28/21 15:30 15:30 15:46 MCV 86.0 MCH 29.6 MCHC 34.4 RDW 14.5 Plt Count 468 H D MPV 10.6 Immature Gran % (Auto) 4.6 H Neut % (Auto) 88.2 H Lymph % (Auto) 2.7 L [place] % (Auto) 4.1 Eos % (Auto) 0.1 Baso % (Auto) 0.3 Lymph # (Auto) 0.6 L [place] # (Auto) 0.9 Eos # (Auto) 0.0 Baso # (Auto) 0.1 Abs Immat Gran (auto) 1.04 H Absolute Neuts (auto) 19.8 H Absolute Nucleated RBC 0.000 Nucleated RBC % (auto) 0.0 Anion Gap 27 H Estim Creat Clear Calc 5.3 Estimated GFR 5 Random Glucose 203 H D Calcium 6.9 L Total Bilirubin 0.2 AST 16 D ALT 68 H Alkaline Phosphatase 214 H D Lactate Dehydrogenase Total Protein 6.8 D Albumin 3.7 Urine Color YELLOW Urine Appearance CLOUDY Urine pH 6.0 Ur Specific [place] 1.025 Urine Protein 3+ H Urine Glucose (UA) NEG Urine Ketones NEG Urine Blood 3+ H Urine Nitrite POS H Ur Leukocyte Esterase 3+ H Urine RBC 15-29 H Urine WBC TNTC H Ur Squamous Epith Cells NONE Urine Bacteria 1+ 05/28/21 05/28/21 15:46 16:48 MCV MCH MCHC RDW Plt Count MPV Immature Gran % (Auto) Neut % (Auto) Lymph % (Auto) [place] % (Auto) Eos % (Auto) Baso % (Auto) Lymph # (Auto) [place] # (Auto) Eos # (Auto) Baso # (Auto) Abs Immat Gran (auto) Absolute Neuts (auto) Absolute Nucleated RBC Nucleated RBC % (auto) Anion Gap Estim Creat Clear Calc Estimated GFR Random Glucose Calcium Total Bilirubin AST ALT Alkaline Phosphatase Lactate Dehydrogenase 154 Total Protein Albumin Urine Color BROWN Urine Appearance CLOUDY Urine pH 5.0 Ur Specific [place] 1.015 Urine Protein 3+ H Urine Glucose (UA) 100 H Urine Ketones 5 Urine Blood 3+ H Urine Nitrite POS H Ur Leukocyte Esterase 3+ H Urine RBC 76-150 H Urine WBC 76-150 H Ur Squamous Epith Cells NONE Urine Bacteria 1+ Assessment and Plan (1) Bilateral hydronephrosis: Status: Acute (2) CKD (chronic kidney disease) stage 5, GFR less than 15 ml/min: Status: Acute (3) Acute kidney injury: Status: Acute (4) Acute pyelonephritis: Status: Acute (5) Hyperkalemia: Status: Acute (6) Acidosis: Status: Acute Acute pyelonephritis with obstructive uropathy/s/p bilateral nephrostomies tubes/bilateral stent No evidence of sepsis Will admit to medical floor place patient on IV ceftriaxone follow urine culture and blood culture Obtain CT abdomen to rule out obstruction due to bilateral stents and worsening renal function Bladder scan reveals 75 cc of urine Acute on chronic kidney disease stage 5 with hyperkalemia and AG acidosis Worsening renal function with acidosis, due to obstructive uropathy Will give Kayexalate place on soda bicarb, npo Obtain renal consult, will need hemodialysis, placed on low-potassium diet IV fluid 1 L follow BM closely. Chronic normocytic Anemia likely due to kidney disease Hematocrit close to baseline, start Procrit follow CBC hypocalcemia with sclerotic bone lesions likely due to long standing secondary hyperparathyroid from CKD Will discuss with Nephrology regarding calcium and vitamin-D placement Elevated prostate will need outpatient prostate biopsy Code status full code DVT prophylaxis with compression boots Quality Stroke Does the patient have a stroke diagnosis?: No VTE Prior VTE?: No VTE Risk Level:: Medical - moderate - high VTE Device Contraindication: N/A - Device Ordered VTE Drug Contraindication: Treatment Not Indicated
[2021-05-28] MEDS: 0.9 % Sodium Chloride 1,000 ML 100 ML IVCONT (18:35)
[2021-05-28 20:00] VITALS: BP 140/59; PULSE 71; RESP 20; TEMP 36.6; O2SAT 100
--- NOTE | 2021-05-28 22:04 | PC.NURSE ---
P Bilateral nephrostomy tubes tegaderm drsg partialy off I small amt of crusted drainage around right tube ,cleansed with sterile NS ,new tegaderm reaplied,mod amt of yellowish drainage present around left nephrostomy tube insertion site,area cleansed with NS and sterile tegaderm reaplied E bilateral tubes intact and draining,right side blood tinged urine,left side milky yellow urine
[2021-05-28 23:49] VITALS: BP 141/65; PULSE 77; RESP 18; TEMP 36.8; O2SAT 99
[2021-05-29 06:56] LABS: Basophils Absolute Auto 0.1 X10*3/uL (0.0-0.2); Basophils Percent Auto 0.2 % (0-2); Eosinophils Percent Auto 0.1 % (0-4); Hematocrit 22.7 % (42-52); Hemoglobin 7.6 g/dl (14.0-18.0); Imm Gran Abs Auto 1.04 X10*3/uL (0.00-0.03); Imm Gran Pct Auto 4.1 % (0.0-0.4); Lymphocytes Absolute Auto 0.6 X10*3/uL (1.2-4.9); Lymphocytes Percent Auto 2.4 % (20-40); MANUAL DIFF FLAG SCAN; Mean Corpuscular HGB Conc 33.5 g/dl (31.0-36.0); Mean Corpuscular Hemoglobin 29.1 pg (27.0-33.0); Mean Platelet Volume 10.7 fL (9.4-12.4); Monocytes Absolute Auto 1.1 X10*3/uL (0.1-1.2); Monocytes Percent Auto 4.5 % (2-11); Neutrophils Absolute Auto 22.5 X10*3/uL (2.0-8.3); Neutrophils Percent Auto 88.7 % (45-73); Platelet Count 503 X10*3/uL (160-400); Red Blood Count 2.61 X10*6/uL (4.60-5.80); Red Cell Distribution Width 14.4 % (11.0-16.0); SCAN SMEAR FLAG 1; White Blood Count 25.3 X10*3/uL (4.8-10.8)
[2021-05-29 07:25] LABS: SLIDE REVIEW VERIFIED
[2021-05-29 07:53] VITALS: BP 142/64; PULSE 85; RESP 18; TEMP 36.6; O2SAT 98
[2021-05-29 08:10] LABS: Anion Gap 26 (12-20); Blood Urea Nitrogen 151 mg/dL (9-16); Calcium 7.2 mg/dL (8.4-10.2); Carbon Dioxide 8 mmol/L (22-29); Chloride 103 mmol/L (96-108); Creatinine Clr Calc Pharmacy 5.3; Estimated Glomerular Filt Rate 5; Glucose Random 128 mg/dL (60-115); Potassium 5.5 mmol/L (3.3-5.1); Sodium 131 mmol/L (135-145)
[2021-05-29] MEDS: Sodium Bicarbonate 650 MG TABLET PO ×3 (08:45→20:54)
[2021-05-29] MEDS: 0.9 % Sodium Chloride Flush 3 ML SYRINGE IVFLUSH ×2 (08:46→17:26)
[2021-05-29] MEDS: Sodium Polystyrene Sulfon/Sorb 15 GM/60 ML ORAL.SUSP PO (08:46)
[2021-05-29 10:20] LABS: HBS Num1 2.48 mIU/mL (0-7.99); HBc Num1 0.11 S/CO (0.00-0.79); HBsAGNum1 0.28 S/CO (0.00-0.99); Hepatitis B Core Antibody Nonreactive (Nonreactive); Hepatitis B Surface Antigen Negative (Negative); ~HepC Num1 0.08 S/CO (0.00-0.79); ~Hepatitis B Surface Antibody NONREACTIVE (Nonreactive); ~Hepatitis C Antibody Nonreactive (Nonreactive)
--- NOTE | 2021-05-29 11:25 | P.CDIC_ITS ---
CDI Concurrent Query Documentation Clarification: PHYSICIAN'S DOCUMENTATION REQUEST Date of Query: 05/29/21 1126 Patient Name: Darwin Stahl Admit Date: 05/28/21 Dear Doctor, A review of the medical record indicates additional documentation may be needed. Please review below and update the documentation accordingly. Based on the clinical indicators below please provide a diagnosis associated with the evaluation, treatment and monitoring of the sodium: Risk Factors/Clinical Indicators/Treatments LAB FINDINGS: sodium 127 L 131 Replenished. Based on the above, could you clarify in the Progress Notes the appropriate diagnosis, if significant, that supports the above abnormalities and additional evaluation, monitoring, and/or treatment rendered: * Labs indicate a diagnosis of (please specify) * Other (please specify) * Unable to determine Use of terms such as suspected, likely, concern for, or probable (associated with a specific diagnosis that is being evaluated, monitored, or treated as if it exists) are acceptable and can be coded in the inpatient setting, when documented at the time of discharge. Thank you, Caryn Avendano [facility], CDIS Extension: [phone] Please use your independent medical judgment in providing your response. THIS QUERY IS PART OF THE PERMANENT MEDICAL RECORD Provider Response: Other Other Diagnosis: Hyponatremia
--- NOTE | 2021-05-29 11:31 | P.CDIC_ITS ---
CDI Concurrent Query Documentation Clarification: PHYSICIAN'S DOCUMENTATION REQUEST Date of Query: 05/29/21 1132 Patient Name: Darwin Stahl Admit Date: 05/28/21 Dear Doctor, A review of the medical record indicates additional documentation may be indicated. Please review below and update the documentation accordingly. Clinical Indicators: Risk Factors/Clinical Indicators/Treatments Bilateral nephrostomy tubes. Pyelonephritis. Urine labs: cloudy, nitrite +, leukocyte 3+, wbc TNTC Cloudy and blood coming out of 1 tube. Consistent with UTI most likely pyelonephritis. IV Ceftriaxone. Please provide further specificity regarding the site, etiology, acuity, and known or suspected organism: Pyelonephritis * Indicate if acute or chronic * Indicate if due to obstruction * Other (please specify) * Unable to determine site * Indicate known or suspected organism * E-coli * Klebsiella * Mei * Other (please specify) * Indicate if associated with hematuria * Indicate if associated with a device, specify if Zehng cath, suprapubic cath, nephrostomy tubes etc. Use of terms such as suspected, likely, concern for, or probable (associated with a specific diagnosis that is being evaluated, monitored, or treated as if it exists) are acceptable and can be coded in the inpatient setting, when documented at the time of discharge. Thank you, Caryn Avendano [facility], CDIS Extension: [phone] Please use your independent medical judgment in providing your response. THIS QUERY IS PART OF THE PERMANENT MEDICAL RECORD Provider Response: Other Other Diagnosis: See notes
[2021-05-29 12:50] VITALS: BP 155/81; PULSE 80; RESP 18; TEMP 36.6; O2SAT 95
--- NOTE | 2021-05-29 13:19 | MHC.CM.PN ---
Addendum entered by Savanna Vale RN 05/29/21 13:31: HCP ON FILE FROM PREVIOUS VISIT AND IS SISTER JENNA [phone] Original Note: IMM 05/29/21, EMR REVIEWED, PER HOSPITALIST PLAN IS FOR PORTACATH AND TO START ON HD, CM ATTEMPTED TO MEET W/PT EARLIER TODAY HOWEVER WAS OFF UNIT FOR PORTACATH, CM REVISITED AND PT WAS IN ROOM AT 1:05PM, PT IS AWAKE, A&O, PT REPORTS HE LIVES AT HIS SISTERS AT [address] IN [place], PT REPORTRS HE IS INDEPENDENT W/ALL CARE, NO DME AND NO HOME SERVICES, PT IS OPEN TO VNA IF NECESSARY AND PREFERS TO RETURN TO SISTER HOME RATHER THAN STR AT THIS POINT, PT VERIFIES PCP RAMIREZ ABDULLAHI AND FIRST APPT WILL BE 06/12/21. PT REPORTS HE SEES DR MCCRAY D/C HOME W/VNA AND NEW HD VS STR, FAMILY FOR TRANSPORT.
--- NOTE | 2021-05-29 13:23 | PHA.PROG ---
Admission Date/Time: May 28, 2021 18:17 Indication: bacteremia Weight in k.2 kg Adjusted body weight in K.4 kg [place] body weight in K.6 Obesity Dosing Indication % IBW: Serum Creatinine - Last 168 Hours 05/28/21 05/29/21 15:30 06:00 Creatinine 11.30 H* 11.26 H* Estimated CrCl and GFR - Last 168 Hours 05/28/21 05/29/21 15:30 06:00 Estim Creat Clear Calc 5.3 5.3 Estimated GFR 5 5 Vancomycin Loading Dose: 750 mg x 1 ( post dialysis) Current Vancomycin Dosing Regimen: depended on dialysis Vancomycin Monitoring using AUC goal of 400 - 600 range with trough as surrogate marker: Date and Time for next Vancomycin Level to be drawn: prior to or post dialysis Pharmacist Comments on Vancomycin Plan: one time vanco dose given. rn was unable to hang before pt went to dialysis. dose was adjusted to be given after dialysis. please draw level before or after next dialysis session. Vancomycin dosing will take advantage of infibond as a clinical decision support tool that uses Bayesian modeling to calculate individual patient's pharmacokinetic parameters and forecast the patient's drug concentration time course with the target goal AUC 24 range of 400 - 600 mg/L/hr.
--- NOTE | 2021-05-29 14:52 | CONS_ITS ---
DATE OF SERVICE: 05/29/2021 REASON FOR CONSULTATION: I was asked to see the patient to assist in evaluation and management of his acute kidney injury on severely advanced chronic kidney disease as reflected by a creatinine today of 11.3 and a history of recent hospitalization in April with his creatinine of 8.4 at time of discharge on the with bilateral nephrostomy tubes in place. In reviewing his renal labs, I can see that he has had episodes of acute kidney injury on chronic kidney disease with his creatinines ranging anywhere from 4 to 15 in the past going back to August 2018. HISTORY OF PRESENT ILLNESS: In summary, the patient is a 61-year-old gentleman with a history of hypertension, BPH, gastritis, advanced chronic kidney disease with a prolonged obstructive uropathy, who is known to Dr. Restrepo, underwent cystoscopy and bilateral stent placement in April without resolution of the hydronephrosis, so bilateral nephrostomy tubes were placed on April 10, who now presents to the hospital with some cloudy urine for 2 days from his nephrostomy tubes and poor urine output from the nephrostomy tubes. He is complaining of feeling generally weak, fatigued, nauseous, poor appetite. MEDICATIONS ON ADMISSION: Apparently, he is only taking a multivitamin. CURRENT MEDICATIONS: Noted in the MAR. SOCIAL HISTORY: He is a cigarette smoker. Denies alcohol or illicit drug use. Denies taking NSAIDs. FAMILY HISTORY: Noncontributory. REVIEW OF SYSTEMS: As noted above. ALLERGIES: HE HAS NO KNOWN DRUG ALLERGIES. PHYSICAL EXAMINATION: VITAL SIGNS: Blood pressure 140/60 with a heart rate in the 80s. Urine output states he put out about 500 mL from his combined nephrostomy tubes. HEENT: Head atraumatic and normocephalic. Mucous membranes are moist. NECK: Supple. LUNGS: Breath sounds bilaterally. CARDIAC: Regular rate and rhythm with no rub. ABDOMEN: Soft. EXTREMITIES: Show no edema. He does have some asterixis. LABORATORY DATA: Labs from today show sodium 131, potassium 5.5, chloride 103, bicarb 8, anion gap 26, BUN 151, creatinine 11.26, calcium 7.2. Previous labs from April 16, when he was discharged from the hospital, his BUN and creatinine 109 and 8.4, calcium was 6.8, phosphorus was 9 at that time. Albumin 3.7. As mentioned, his serum creatinine over the past month and a half have been basically in the 9 to 15 range. Prior to that we have labs from 2019, which showed his creatinine as low as 4.0. Hemoglobin 7.6, hematocrit 22.7, white blood count of 25, platelet count 503. Back in 2019, he had serologies that showed ANCA and anti-GBM and complement levels were negative, but normal. Likewise, hep B and C serologies are negative. He had a CT of the abdomen which showed bilateral percutaneous nephrostomy tubes as well as bilateral ureteral stents. No hydronephrosis or hydroureter. IMPRESSION: 61-year-old with acute kidney injury on advanced chronic kidney disease, presumably due to longstanding obstructive uropathy. 1. Acute kidney injury. This is most likely due to a combination of factors, particularly may have underlying urinary tract infection given the pyuria and the leukocytosis contributing to the acute kidney injury on chronic kidney disease. 2. Advanced stage 5 CKD. Despite the nephrostomy tubes in place, his creatinine has not gone below 8 and this is consistent with burned-out obstructive uropathy causing advanced chronic kidney disease most likely. 3. Anion gap depressed serum bicarb. This is due to his acute kidney injury and uremic toxins that had built up. 4. Anemia. 5. Metabolic bone disease associated with his advanced chronic kidney disease. 6. Obstructive uropathy with bilateral nephrostomy tubes. 7. Leukocytosis with pyuria suggestive of urinary tract infection and question of pyelonephritis. 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 Agree with antibiotics. Agree with bicarb replacement. We will check intact PTH. Protect his nondominant arm for future AV fistula. We will follow patient closely with the team. MD DIXIE Recio/GABE / [id number]
[2021-05-29 15:10] VITALS: BMI 23.8
--- NOTE | 2021-05-29 15:29 | MHC.CLN ---
NUTRITION CONSULT WEIGHT LOSS X 2 MONTHS=-18.5%. PATIENT STARTED HEMODIALYSIS TODAY. DIET CHANGED FOR DIALYSIS NEEDS TO: 2 GRAM SODIUM, LOW POTASSIUM, LOW PHOSPHOROUS. MONITOR INTAKE AND LABS. CONSIDER NUTRITIONAL SUPPLEMENT IF NEEDED.
[2021-05-29 16:00] VITALS: BP 145/64; PULSE 81; RESP 18; TEMP 36.2; O2SAT 95
--- NOTE | 2021-05-29 16:18 | HO.PM.IMPN ---
Subjective Subjective Date of Service: 05/29/21 Interval History: Patient being followed for acute on chronic kidney disease acute pyelonephritis complaining of nausea this morning and generalized weakness, repeat labs showed persistent acidosis, and elevated creatinine of 11.2, patient made NPO for PermCath placement. Review of Systems General no headache , no dizziness no fever chills complaining of generalized weakness fatigue CVS no chest pain, no palpitation.? Respiratory no cough, no sob.? Gastrointestinal? nausea, no vomiting, no abdominal pain, decreased by mouth intake ? Review of Systems: Yes all other systems are reviewed and are negative Constitutional Constitutional: Reports anorexia and Reports weakness Neurologic Neurologic: Reports weakness Physical Exam Vital Signs: Vital Signs: Last Vital Signs Temp 97.9 F 05/29/21 12:50 Pulse 80 05/29/21 12:50 Resp 18 05/29/21 12:50 BP 155/81 H 05/29/21 12:50 Pulse Ox 95 05/29/21 12:50 Body Mass Index 23.8 Gen:? Alert orient ed x3, no acute di stress, sick-appea ring HEENT: sclera anicteric, moist mucus membranes Ne ck: supple Lungs: clear to auscultat ion bilaterally He art: regular rate and rhythm, no mur murs Abd: soft, no n-tender, non-dist ended : bilatera l nephrostomy tube s draining clear u rine, no blood Ext : no edema Skin: w arm/well-perfused Neuro: alert and o riented x3, no foc al findings Psych: appropriate affec t Objective Data Active Medications Acetaminophen (Acetaminophen 325 Mg Tablet) 650 mg PO Q6H PRN PRN Reason: Pain, Mild (Pain Scale 1-3) Vancomycin HCl 750 mg/ Sodium (Chloride) 265 mls @ 265 mls/hr IV DAILY@1645 [facility] Stop: 05/29/21 17:44 Ondansetron HCl (Ondansetron Hcl 4 Mg/2 Ml Vial) 4 mg IVPUSH Q8H PRN PRN Reason: Nausea and Vomiting Pharmacy Consult (Consult Rx Vancomycin Dosing) 1 each MISCELLANE DAILY PRN PRN Reason: Consult order Sodium Bicarbonate (Sodium Bicarbonate 650 Mg Tablet) 650 mg PO TID [facility] Last Admin: 05/29/21 08:45 Dose: 650 mg Documented by: MORGAN Sodium Chloride (0.9 % Sodium Chloride Flush 3 Ml Syringe) 3 ml IVFLUSH QSHIFT [facility] Last Admin: 05/29/21 08:46 Dose: 3 ml Documented by: MORGAN Labs CBC & Chem 7: 05/29/21 06:28 05/29/21 06:00 Labs: Laboratory Results - last 24 hr 05/28/21 05/29/21 05/29/21 16:48 06:00 06:00 MCV MCH MCHC RDW Plt Count MPV Immature Gran % (Auto) Neut % (Auto) Lymph % (Auto) [place] % (Auto) Eos % (Auto) Baso % (Auto) Lymph # (Auto) [place] # (Auto) Eos # (Auto) Baso # (Auto) Abs Immat Gran (auto) Absolute Neuts (auto) Absolute Nucleated RBC Nucleated RBC % (auto) Smear Tech's Comments Anion Gap 26 H Estim Creat Clear Calc 5.3 Estimated GFR 5 Random Glucose 128 H D Calcium 7.2 L Lactate Dehydrogenase 154 Hep Bs Antigen Negative Hep Bs Antibody NONREACTIVE Hep B Core Total Ab Nonreactive Hepatitis C Ab (EIA) Nonreactive 05/29/21 06:28 MCV 87.0 MCH 29.1 MCHC 33.5 RDW 14.4 Plt Count 503 H MPV 10.7 Immature Gran % (Auto) 4.1 H Neut % (Auto) 88.7 H Lymph % (Auto) 2.4 L [place] % (Auto) 4.5 Eos % (Auto) 0.1 Baso % (Auto) 0.2 Lymph # (Auto) 0.6 L [place] # (Auto) 1.1 Eos # (Auto) 0.0 Baso # (Auto) 0.1 Abs Immat Gran (auto) 1.04 H Absolute Neuts (auto) 22.5 H Absolute Nucleated RBC 0.000 Nucleated RBC % (auto) 0.0 Smear Tech's Comments VERIFIED Anion Gap Estim Creat Clear Calc Estimated GFR Random Glucose Calcium Lactate Dehydrogenase Hep Bs Antigen Hep Bs Antibody Hep B Core Total Ab Hepatitis C Ab (EIA) Microbiology Microbiology Results: Microbiology 05/28/21 16:01 Urine Culture - Preliminary Urine Other - Nephrostomy Culture in progress. 05/28/21 15:46 Urine Culture - Preliminary Urine Other - Nephrostomy Culture in progress. 05/28/21 16:48 Blood Culture - Preliminary Blood - Venous Prelim: GPC Gram Stain only 05/28/21 16:48 Blood Culture - Preliminary Blood - Venous Prelim: GPC Gram Stain only Assessment and Plan (1) Hyperkalemia: Status: Acute (2) Acute pyelonephritis: Status: Acute (3) Acute kidney injury: Status: Acute (4) Hypocalcemia: Status: Acute (5) Bilateral hydronephrosis: Status: Acute (6) Metabolic acidosis: Status: Acute (7) Elevated PSA: Status: Acute Assessment and Plan: Acute pyelonephritis with obstructive uropathy/s/p bilateral nephrostomies tubes/bilateral stent No evidence of sepsis Blood cultures x2 positive for Gram-positive cocci likely enterococci Will DC IV ceftriaxone and place patient on IV vancomycin renally dosed will follow final urine culture and blood culture CT abdomen showed no obstruction, bilateral stents in place Acute on chronic kidney disease stage 5 with hyperkalemia and AG acidosis Worsening renal function with acidosis, due to obstructive uropathy Case discussed with Nephrology patient will have PermCath and hemodialysis today Will continue soda bicarb/low-potassium diet Follow renal function Mild hyponatremia due to kidney disease Sodium improved to 130 Chronic normocytic Anemia likely due to kidney disease Hematocrit close to baseline, start Procrit follow CBC, no active bleeding noted Hyperglycemia with no history of diabetes will check hemoglobin A1c hypocalcemia with sclerotic bone lesions likely due to long standing secondary hyperparathyroid from CKD Will discuss with Nephrology regarding calcium and vitamin-D placement Elevated prostate will need outpatient prostate biopsy Code status full code DVT prophylaxis with compression boots Quality Stroke Does the patient have a stroke diagnosis?: No VTE Prior VTE?: No VTE Risk Level:: Medical - moderate - high VTE Device Contraindication: N/A - Device Ordered VTE Drug Contraindication: Treatment Not Indicated
--- NOTE | 2021-05-29 16:39 | P.CNID_ITS ---
History of Present Illness Data of Consult Service Date: 05/29/21 Requesting physician: Douglas Lagunas Primary Care Provider: James Park MD [facility] Reason for consult: bacteremia He presents with urine looking dark He has some whitish coloration as well He has some chills Review of Systems Review of Systems: Yes all other systems are reviewed and are negative PMFSH Past Medical History Medical History Enlarged prostate Kidney disease Family History Family history: reviewed and not pertinent Social History Social History Household Members: Other Household Members Other:: sister Housing: House Housing Other:: mobile home Do you presently have visiting nurse or other home services: No Patient Tobacco Use Status: Former Tobacco user Tobacco use type: Cigarette e-Cigarette/Vaping Use: Former Use Use of substances other than those prescribed or required for medical reasons: Yes Substance Use Type: Marijuana Substance Use Frequency: Daily Last Used Substance Other:: yesterday evening Currently Displaying Signs/Symptoms of Drug Intoxication Withdrawal: No Any prior treatment program specific to substance use: No Have you been hit, kicked, punched, or otherwise hurt by someone within the past year? If so, by whom?: No Do you feel safe in your current relationship?: Yes Is there a partner from a previous relationship who is making you feel unsafe now?: No Are you made to feel afraid or neglected: No [facility] Practices: sabianism Advance Directives: No Advance Directives Information Provided: No Do you have thoughts of harming others: None Do you have a plan to hurt others: No Plan Recently lost weight without trying: Yes How much weight loss: 14-23 pounds Eating poorly because of decreased appetite: Yes Nutrition screen score: 5 Poor oral hygiene: No service: No Current occupational status: disabled Meds Allergies Allergy/AdvReac Type Severity Reaction Status Date / Time No Known Allergies Allergy Verified 05/28/21 14:23 [No Known Allergies*] Active Medications: Current Medications Acetaminophen (Acetaminophen 325 Mg Tablet) 650 mg PO Q6H PRN PRN Reason: Pain, Mild (Pain Scale 1-3) Epoetin Gage 2,000 unit/ (Epoetin Gage 3,000 unit) 5,000 unit SUBCUT ONCE ONE Stop: 10/29/21 16:31 Vancomycin HCl 750 mg/ Sodium (Chloride) 265 mls @ 265 mls/hr IV DAILY@1645 [facility] Stop: 05/29/21 17:44 Ondansetron HCl (Ondansetron Hcl 4 Mg/2 Ml Vial) 4 mg IVPUSH Q8H PRN PRN Reason: Nausea and Vomiting Pharmacy Consult (Consult Rx Vancomycin Dosing) 1 each MISCELLANE DAILY PRN PRN Reason: Consult order Sodium Bicarbonate (Sodium Bicarbonate 650 Mg Tablet) 650 mg PO TID [facility] Last Admin: 05/29/21 08:45 Dose: 650 mg Documented by: Sodium Chloride (0.9 % Sodium Chloride Flush 3 Ml Syringe) 3 ml IVFLUSH QSHIFT [facility] Last Admin: 05/29/21 08:46 Dose: 3 ml Documented by: Home Medications Medication Instructions Recorded Confirmed Last Taken Type zvzuipyy-sbl-xfemi acid 300 1 tab PO DAILY 04/01/21 04/01/21 03/31/21 History mcg-lycopene 600 mcg-lutein 300 mcg tablet (Centrum Silver Men) Physical Exam Vital Signs: Vital Signs: Last Vital Signs Temp 97.9 F 05/29/21 12:50 Pulse 80 05/29/21 12:50 Resp 18 05/29/21 12:50 BP 155/81 H 05/29/21 12:50 Pulse Ox 95 05/29/21 12:50 Body Mass Index 23.8 Const: General: cooperative HENMT: Head: Yes normal to inspection Mouth: Normal oral and palatal mucosa present Eyes: General: appearance normal, both eyes and all related structures Resp: Effort & Inspection: normal respiratory effort Cardio: Rate: regular rate Rhythm: regular rhythm GI: Palpation (GI): Soft to palpation and nontender Skin: General skin exam: no rashes or lesions noted Results Labs CBC & Chem 7: 05/29/21 06:28 05/29/21 06:00 Labs: Short CBC 05/29/21 Range/Units 06:28 WBC 25.3 H (4.8-10.8) X10*3/uL Hgb 7.6 L (14.0-18.0) g/dl Hct 22.7 L (42-52) % Plt Count 503 H (160-400) X10*3/uL [facility] 05/29/21 06:00 Sodium 131 L Potassium 5.5 H Chloride 103 Carbon Dioxide 8 L* BUN 151 H* Creatinine 11.26 H* Calcium 7.2 L Microbiology Microbiology Results: Microbiology 05/28/21 16:01 Urine Other - Nephrostomy Urine Culture - Preliminary Culture in progress. 05/28/21 15:46 Urine Other - Nephrostomy Urine Culture - Preliminary Culture in progress. 05/28/21 16:48 Blood - Venous Blood Culture - Preliminary Prelim: GPC Gram Stain only 05/28/21 16:48 Blood - Venous Blood Culture - Preliminary Prelim: GPC Gram Stain only Assessment and Plan (1) Acute pyelonephritis: Status: Acute There is possible gram positive staph infection He has urinary concerns Would continue Vancomycin Await cultures/duration (2) Acute kidney injury: Status: Acute
[2021-05-29] MEDS: vancomycin HCL 750 MG in 0.9 % Sodium Chloride 250 ML 265 MG IV (17:26)
[2021-05-29] MEDS: Acetaminophen 325 MG TABLET 650 MG PO (17:38)
[2021-05-29] MEDS: Melatonin 3 MG TABLET 6 MG PO (20:54)
[2021-05-30] VITALS (11 sets, daily range): BP systolic 121–156; BP diastolic 60–74; PULSE 77–91; RESP 16–20; TEMP 36.4–37.4; O2SAT 99
[2021-05-30 06:16] LABS: Mean Corpuscular HGB Conc 34.4 g/dl (31.0-36.0); Mean Corpuscular Hemoglobin 28.8 pg (27.0-33.0); Mean Corpuscular Volume 83.6 fL (80-98); Mean Platelet Volume 10.8 fL (9.4-12.4); Platelet Count 435 X10*3/uL (160-400); Red Blood Count 2.26 X10*6/uL (4.60-5.80); Red Cell Distribution Width 14.4 % (11.0-16.0); White Blood Count 19.2 X10*3/uL (4.8-10.8)
[2021-05-30 06:24] LABS: Hematocrit 18.9 % (42-52); Hemoglobin 6.5 g/dl (14.0-18.0)
[2021-05-30 07:17] LABS: Band Neutrophils Percent 7 % (3-5); Lymphocytes Absolute Manual 0.2 X10*3/uL (0.6-4.8); Lymphocytes Percent Manual 1 % (20-40); Metamyelocytes Absolute 0.4 X10*3/uL; Metamyelocytes Percent 2 %; Monocytes Absolute Manual 0.8 X10*3/uL (0.0-1.2); Monocytes Percent Manual 4 % (2-11); Neutrophils Absolute Manual 17.9 X10*3/uL (2.2-7.9); Neutrophils Percent Manual 86 % (45-73)
[2021-05-30 07:18] LABS: Acanthocytes 2+ (3-5) /OIF; Hypochromasia 1+ (5-14) /OIF; RBC Morphology NOTED
[2021-05-30 07:19] LABS: Ovalocytes 1+ (5-14) /OIF; Platelet Estimate INCREASED (NORMAL); Platelet Morphology Comment NORMAL; Tear Drop Cells 1+ (0-2) /OIF
[2021-05-30 07:26] LABS: Anion Gap 20 (12-20); Calcium 6.8 mg/dL (8.4-10.2); Carbon Dioxide 13 mmol/L (22-29); Chloride 104 mmol/L (96-108); Glucose Random 134 mg/dL (60-115); Potassium 4.2 mmol/L (3.3-5.1); Sodium 133 mmol/L (135-145)
[2021-05-30 07:32] LABS: Blood Urea Nitrogen 97 mg/dL (9-16)
[2021-05-30 08:29] LABS: Creatinine Clr Calc Pharmacy 8.4; Estimated Glomerular Filt Rate 8
[2021-05-30] MEDS: 0.9 % Sodium Chloride Flush 3 ML SYRINGE IVFLUSH ×3 (09:14→20:33)
--- NOTE | 2021-05-30 09:39 | P.PNNP_ITS ---
Subjective Subjective Date of Service: 05/30/21 Interval history: seen and examined feels tired discussed with medical attending Physical Exam Vital Signs: Vital Signs: Last Vital Signs Temp 97.5 F 05/30/21 08:00 Pulse 77 05/30/21 08:00 Resp 18 05/30/21 08:00 BP 156/69 H 05/30/21 08:00 Pulse Ox 99 05/30/21 08:00 Body Mass Index 23.8 Const: General: comfortable and no acute distress Orientation/consciousness: oriented to person, oriented to place and oriented to time HENMT: Head: Yes normocephalic and Yes atraumatic Neck: Neck: Yes supple Resp: Auscultation: diminished lung sounds Cardio: Heart sounds: S1 normal heart sound present and S2 normal heart sound present GI: Palpation (GI): Soft to palpation and nontender Neuro: General: oriented to person, oriented to place and oriented to time Extrem: General: No pedal edema Objective Data Labs CBC & Chem 7: 05/30/21 05:26 05/30/21 05:26 Labs: Laboratory Results - last 24 hr 05/29/21 05/30/21 05/30/21 06:00 05:26 05:26 WBC 19.2 H RBC 2.26 L Hgb 6.5 L* Hct 18.9 L* MCV 83.6 MCH 28.8 MCHC 34.4 RDW 14.4 Plt Count 435 H MPV 10.8 Immature Gran % (Auto) Cancelled Neut % (Auto) Cancelled Lymph % (Auto) Cancelled [place] % (Auto) Cancelled Eos % (Auto) Cancelled Baso % (Auto) Cancelled Lymph # (Auto) Cancelled [place] # (Auto) Cancelled Eos # (Auto) Cancelled Baso # (Auto) Cancelled Abs Immat Gran (auto) Cancelled Absolute Neuts (auto) Cancelled Absolute Nucleated RBC 0.000 Nucleated RBC % (auto) 0.0 Neutrophils % (Manual) 86 H Band Neutrophils % 7 H Lymphocytes % (Manual) 1 L Monocytes % (Manual) 4 Metamyelocytes % 2 Abs Neuts (Manual) 17.9 H Lymphocytes # (Manual) 0.2 L Monocytes # (Manual) 0.8 Metamyelocytes # 0.4 Platelet Estimate INCREASED Plt Morphology Comment NORMAL RBC Morphology NOTED Hypochromasia 1+ (5-14) Tear Drop Cells 1+ (0-2) Ovalocytes 1+ (5-14) Acanthocytes (Spur) 2+ (3-5) Sodium 133 L Potassium 4.2 D Chloride 104 Carbon Dioxide 13 L Anion Gap 20 BUN 97 H* D Creatinine 7.18 H* Estim Creat Clear Calc 8.4 Estimated GFR 8 Random Glucose 134 H Calcium 6.8 L Hep Bs Antigen Negative Hep Bs Antibody NONREACTIVE Hep B Core Total Ab Nonreactive Hepatitis C Ab (EIA) Nonreactive Microbiology Microbiology Results: Microbiology 05/28/21 16:01 Urine Other - Nephrostomy Urine Culture - Preliminary Gram negative rylie Staphylococcus species 05/28/21 15:46 Urine Other - Nephrostomy Urine Culture - Preliminary Gram negative rylie Staphylococcus species 05/28/21 16:48 Blood - Venous Blood Culture - Preliminary Prelim: GPC Gram Stain only 05/28/21 16:48 Blood - Venous Blood Culture - Preliminary Prelim: GPC Gram Stain only Procedures Date of Service Date of Service: 05/30/21 Assessment & Plan Assessment and plan (1) ESRD (end stage renal disease): Status: Acute (2) Obstructive uropathy: Status: Acute (3) Metabolic acidosis: Status: Acute (4) Anemia: Status: Acute Assessment and Plan: stage 5 CKD due to chronic obstructive uropathy now ESRD s/p dialysis tunelled catheter placement on 05/29 commenced on dialysis on 05/29 REC HD today blood transfusion with HD will arrange for outpatient HD Time Spent With Patient Time: Total time spent is greater than 50% in coordination of care (as documented) at patient's floor/unit and/or counseling patient: Progress Note: Quality Stroke Does the patient have a stroke diagnosis?: No
[2021-05-30] MEDS: Sodium Bicarbonate 650 MG TABLET PO ×2 (15:35→20:33)
--- NOTE | 2021-05-30 15:40 | HO.PM.IMPN ---
Subjective Subjective Date of Service: 05/30/21 Interval History: Being followed for acute on chronic kidney disease, acute pyelonephritis, Patient overall not feeling well, denies any specific symptoms of nausea, vomiting, no fever, no chills, denies hematemesis, no melena no other acute issues overnight. Review of Systems General complaining of generalized weakness, fatigue, no fever, no chills CVS no chest pain, no palpitation.? Respiratory no cough, no sob.? Gastrointestinal?mild nausea, no vomiting, no abdominal pain ? Review of Systems: Yes all other systems are reviewed and are negative Physical Exam Vital Signs: Vital Signs: Last Vital Signs Temp 99.2 F 05/30/21 15:14 Pulse 82 05/30/21 15:14 Resp 20 05/30/21 15:14 BP 141/68 H 05/30/21 15:14 Pulse Ox 99 05/30/21 13:12 Body Mass Index 23.8 Gen:? Alert oriented x3, no acute distress, sick-appearing HEENT: sclera?anicteric, moistmucus membranes Neck: supple Lungs:clear to auscultation bilaterally Heart: regular rateand rhythm, no murmurs Abd: soft, non-tender, non-distended : bilateral nephrostomy tubes draining clear urine, no blood Ext: no edema Skin: warm/well-perfused/pallor Neuro: alert and oriented x3, no focal findings Psych:?appropriate affect Objective Data Active Medications Acetaminophen (Acetaminophen 325 Mg Tablet) 650 mg PO Q6H PRN PRN Reason: Pain, Mild (Pain Scale 1-3) Last Admin: 05/29/21 17:38 Dose: 650 mg Documented by: SONNY Melatonin (Melatonin 3 Mg Tablet) 6 mg PO BEDTIME PRN PRN Reason: Insomnia Last Admin: 05/29/21 20:54 Dose: 6 mg Documented by: SONNY Ondansetron HCl (Ondansetron Hcl 4 Mg/2 Ml Vial) 4 mg IVPUSH Q8H PRN PRN Reason: Nausea and Vomiting Pharmacy Consult (Consult Rx Vancomycin Dosing) 1 each MISCELLANE DAILY PRN PRN Reason: Consult order Sodium Bicarbonate (Sodium Bicarbonate 650 Mg Tablet) 650 mg PO TID [facility] Last Admin: 05/30/21 15:35 Dose: 650 mg Documented by: АНДРЕЙ Sodium Chloride (0.9 % Sodium Chloride Flush 3 Ml Syringe) 3 ml IVFLUSH QSHIFT [facility] Last Admin: 05/30/21 15:35 Dose: 3 ml Documented by: АНДРЕЙ Labs CBC & Chem 7: 05/30/21 05:26 05/30/21 05:26 Labs: Laboratory Results - last 24 hr 05/30/21 05/30/21 05/30/21 05:26 05:26 08:42 MCV 83.6 MCH 28.8 MCHC 34.4 RDW 14.4 Plt Count 435 H MPV 10.8 Immature Gran % (Auto) Cancelled Neut % (Auto) Cancelled Lymph % (Auto) Cancelled [place] % (Auto) Cancelled Eos % (Auto) Cancelled Baso % (Auto) Cancelled Lymph # (Auto) Cancelled [place] # (Auto) Cancelled Eos # (Auto) Cancelled Baso # (Auto) Cancelled Abs Immat Gran (auto) Cancelled Absolute Neuts (auto) Cancelled Absolute Nucleated RBC 0.000 Nucleated RBC % (auto) 0.0 Neutrophils % (Manual) 86 H Band Neutrophils % 7 H Lymphocytes % (Manual) 1 L Monocytes % (Manual) 4 Metamyelocytes % 2 Abs Neuts (Manual) 17.9 H Lymphocytes # (Manual) 0.2 L Monocytes # (Manual) 0.8 Metamyelocytes # 0.4 Platelet Estimate INCREASED Plt Morphology Comment NORMAL RBC Morphology NOTED Hypochromasia 1+ (5-14) Tear Drop Cells 1+ (0-2) Ovalocytes 1+ (5-14) Acanthocytes (Spur) 2+ (3-5) Anion Gap 20 Estim Creat Clear Calc 8.4 Estimated GFR 8 Random Glucose 134 H Calcium 6.8 L Blood Type A Positive Antibody Screen NEGATIVE Crossmatch See Detail Microbiology Microbiology Results: Microbiology 05/28/21 16:48 Blood Culture - Preliminary Blood - Venous Staphylococcus aureus 05/28/21 16:48 Blood Culture - Preliminary Blood - Venous Staphylococcus aureus 05/28/21 16:01 Urine Culture - Preliminary Urine Other - Nephrostomy Gram negative rylie Staphylococcus species 05/28/21 15:46 Urine Culture - Preliminary Urine Other - Nephrostomy Gram negative rylie Staphylococcus species Assessment and Plan (1) Acute anemia: Status: Acute (2) Acute kidney injury: Status: Acute (3) Acute pyelonephritis: Status: Acute (4) Hyperkalemia: Status: Acute (5) Acidosis: Status: Acute (6) Obstructive uropathy: Status: Acute (7) ESRD (end stage renal disease): Status: Acute Assessment and Plan: Acute pyelonephritis likely due to obstructive uropathy/s/p bilateral nephrostomies tubes/bilateral stent No evidence of sepsis Blood cultures x2 positive for Staph aureus, urine culture positive for gram-negative rods and Staph aureus On IV vancomycin renally dosed will add IV ceftriaxone to cover Gram-negative, will follow final urine culture and blood culture sensitivities CT abdomen showed no obstruction, bilateral stents in place End-stage renal disease Worsening renal function with acidosis, due to obstructive uropathy Status post PermCath, started on hemodialysis yesterday will have repeat hemodialysis today Will continue soda bicarb/low-potassium diet Bicarb improving, Follow renal function Mild hyponatremia due to kidney disease Sodium improved to 130 Acute on Chronic normocytic Anemia likely due to kidney disease Hematocrit dropped significantly no active bleeding noticed will transfuse 2 units of packed RBC with hemodialysis Follow hematocrit closely Hyperglycemia with no history of diabetes, blood sugars 130-200 range, follow hemoglobin A1c hypocalcemia with sclerotic bone lesions likely due to long standing secondary hyperparathyroid from CKD calcium and vitamin-D placement Elevated prostate will need outpatient prostate biopsy Code status full code DVT prophylaxis with compression boots Quality Stroke Does the patient have a stroke diagnosis?: No VTE Prior VTE?: No VTE Risk Level:: Medical - moderate - high VTE Device Contraindication: N/A - Device Ordered VTE Drug Contraindication: Treatment Not Indicated
[2021-05-30] MEDS: Melatonin 3 MG TABLET 6 MG PO (20:33)
[2021-05-31] VITALS: RESP 14
[2021-05-31 06:13] LABS: Hematocrit 24.4 % (42.0-52.0); Hemoglobin 8.3 g/dl (14.0-18.0); Mean Corpuscular Hemoglobin 28.5 pg (27.0-33.0); Mean Corpuscular Volume 83.8 fL (80.0-98.0); Mean Platelet Volume 9.9 fL (9.4-12.4); Platelet Count 300 X10*3/uL (160-400); Red Blood Count 2.91 X10*6/uL (4.60-5.80); Red Cell Distribution Width 15.2 % (11.0-16.0); White Blood Count 19.5 X10*3/uL (4.8-10.8)
[2021-05-31 06:30] VITALS: BP 130/70; PULSE 75; RESP 16; TEMP 36.3; O2SAT 96
[2021-05-31 06:31] LABS: Estimated Average Glucose 114 mg/dL; Hemoglobin A1c % 5.6 %
[2021-05-31 06:49] LABS: Anion Gap 18 (12-20); Blood Urea Nitrogen 78 mg/dL (9-16); Calcium 6.5 mg/dL (8.4-10.2); Carbon Dioxide 14 mmol/L (22-29); Chloride 103 mmol/L (96-108); Glucose Random 196 mg/dL (60-115); Potassium 3.9 mmol/L (3.3-5.1); Sodium 131 mmol/L (135-145)
[2021-05-31 07:17] LABS: Creatinine Clr Calc Pharmacy 9.8; Estimated Glomerular Filt Rate 9
--- NOTE | 2021-05-31 08:53 | PM.PNNEP ---
Subjective Subjective Date of Service: 05/31/21 Interval history: seen and examined had HD yesterday feels better Physical Exam Vital Signs: Vital Signs: Last Vital Signs Temp 97.4 F 05/31/21 06:30 Pulse 75 05/31/21 06:30 Resp 16 05/31/21 06:30 BP 130/70 05/31/21 06:30 Pulse Ox 96 05/31/21 06:30 Body Mass Index 23.8 Const: General: comfortable and no acute distress Orientation/consciousness: oriented to person, oriented to place and oriented to time HENMT: Head: Yes normocephalic and Yes atraumatic Neck: Neck: Yes supple Resp: Auscultation: diminished lung sounds Cardio: Heart sounds: S1 normal heart sound present and S2 normal heart sound present GI: Palpation (GI): Soft to palpation and nontender Neuro: General: oriented to person, oriented to place and oriented to time Extrem: General: No pedal edema Objective Data Labs CBC & Chem 7: 05/31/21 05:56 05/31/21 05:56 Labs: Laboratory Results - last 24 hr 05/30/21 05/31/21 05/31/21 08:42 05:56 05:56 WBC 19.5 H RBC 2.91 L Hgb 8.3 L Hct 24.4 L MCV 83.8 MCH 28.5 MCHC 34.0 RDW 15.2 Plt Count 300 MPV 9.9 Absolute Nucleated RBC 0.000 Nucleated RBC % (auto) 0.0 Sodium 131 L Potassium 3.9 Chloride 103 Carbon Dioxide 14 L Anion Gap 18 BUN 78 H Creatinine 6.19 H* Estim Creat Clear Calc 9.8 Estimated GFR 9 Random Glucose 196 H D Estimat Average Glucose Hemoglobin A1c % Calcium 6.5 L Blood Type A Positive Antibody Screen NEGATIVE Crossmatch See Detail 05/31/21 05:56 WBC RBC Hgb Hct MCV MCH MCHC RDW Plt Count MPV Absolute Nucleated RBC Nucleated RBC % (auto) Sodium Potassium Chloride Carbon Dioxide Anion Gap BUN Creatinine Estim Creat Clear Calc Estimated GFR Random Glucose Estimat Average Glucose 114 Hemoglobin A1c % 5.6 Calcium Blood Type Antibody Screen Crossmatch Microbiology Microbiology Results: Microbiology 05/28/21 16:48 Blood - Venous Blood Culture - Final Staphylococcus aureus 05/28/21 16:48 Blood - Venous Blood Culture - Final Staphylococcus aureus 05/28/21 16:01 Urine Other - Nephrostomy Urine Culture - Preliminary Gram negative rylie Staphylococcus species 05/28/21 15:46 Urine Other - Nephrostomy Urine Culture - Preliminary Gram negative rylie Staphylococcus species Procedures Date of Service Date of Service: 05/31/21 Assessment & Plan Assessment and plan (1) ESRD (end stage renal disease): Status: Acute (2) Obstructive uropathy: Status: Acute (3) Metabolic acidosis: Status: Acute (4) Anemia: Status: Acute Assessment and Plan: s/p HD yesterday stage 5 CKD due to chronic obstructive uropathy now ESRD s/p dialysis tunelled catheter placement on 05/29 commenced on dialysis on 05/29 REC HD tomorrow blood transfusion with HD need to arrange for outpatient HD before discharge Time Spent With Patient Time: Total time spent is greater than 50% in coordination of care (as documented) at patient's floor/unit and/or counseling patient: Progress Note: Quality Stroke Does the patient have a stroke diagnosis?: No
[2021-05-31 09:49] LABS: Vancomycin Trough 7.3 mcg/mL (10.0-20.0)
[2021-05-31] MEDS: 0.9 % Sodium Chloride Flush 3 ML SYRINGE IVFLUSH ×3 (09:49→20:19)
[2021-05-31] MEDS: Sodium Bicarbonate 650 MG TABLET PO ×3 (09:49→20:14)
[2021-05-31] MEDS: cefTRIAXone sodium 1 GM in 0.9 % Sodium Chloride 50 ML IV (09:50)
--- NOTE | 2021-05-31 11:02 | P.PNIM_ITS ---
Subjective Subjective Date of Service: 05/31/21 Interval History: Being followed for acute on chronic kidney disease, Staph aureus bacteremia and acute pyelonephritis, patient feeling better this morning, denies nausea feels hepatitis coming backl, denies any specific symptoms of nausea, vomiting, no fever, no chills, no other acute issues overnight. Review of Systems General complaining of generalized weakness, fatigue, no fever, no chills CVS no chest pain, no palpitation.? Respiratory no cough, no sob.? Gastrointestinal?no nausea, no vomiting, no abdominal pain ? Review of Systems: Yes all other systems are reviewed and are negative Physical Exam Vital Signs: Vital Signs: Last Vital Signs Temp 97.4 F 05/31/21 06:30 Pulse 75 05/31/21 06:30 Resp 16 05/31/21 06:30 BP 130/70 05/31/21 06:30 Pulse Ox 96 05/31/21 06:30 Body Mass Index 23.8 Gen:? Alert oriented x3, no acute distress, HEENT: sclera?anicteric, moist mucus membranes Neck: supple Lungs:clear to auscultation bilaterally Heart: regular rate and rhythm, no murmurs Abd: soft, non-tender, non-distended : bilateral nephrostomy tubes draining clear urine, no blood Ext: no edema Skin: warm/well-perfused Neuro: alert and oriented x3, no focal findings Psych:?appropriate affect ? Objective Data Active Medications Acetaminophen (Acetaminophen 325 Mg Tablet) 650 mg PO Q6H PRN PRN Reason: Pain, Mild (Pain Scale 1-3) Last Admin: 05/29/21 17:38 Dose: 650 mg Documented by: SONNY Ceftriaxone Sodium 1 gm/ (Sodium Chloride) 50 mls @ 100 mls/hr IV Q24H FREIDA Last Infusion: 05/31/21 10:33 Dose: 0 mls/hr Documented by: PEDRO PABLO Cefazolin Sodium/Dextrose (Ancef) 2 gm in 50 mls @ 100 mls/hr IV ONCE ONE Stop: 06/01/21 17:14 Melatonin (Melatonin 3 Mg Tablet) 6 mg PO BEDTIME PRN PRN Reason: Insomnia Last Admin: 05/30/21 20:33 Dose: 6 mg Documented by: SONNY Ondansetron HCl (Ondansetron Hcl 4 Mg/2 Ml Vial) 4 mg IVPUSH Q8H PRN PRN Reason: Nausea and Vomiting Pharmacy Consult (Consult Rx Vancomycin Dosing) 1 each MISCELLANE DAILY PRN PRN Reason: Consult order Sodium Bicarbonate (Sodium Bicarbonate 650 Mg Tablet) 650 mg PO TID [facility] Last Admin: 05/31/21 09:49 Dose: 650 mg Documented by: PEDRO PABLO Sodium Chloride (0.9 % Sodium Chloride Flush 3 Ml Syringe) 3 ml IVFLUSH QSHIFT [facility] Last Admin: 05/31/21 09:49 Dose: 3 ml Documented by: PEDRO PABLO Labs CBC & Chem 7: 05/31/21 05:56 05/31/21 05:56 Labs: Laboratory Results - last 24 hr 05/30/21 05/31/21 05/31/21 08:42 05:56 05:56 MCV 83.8 MCH 28.5 MCHC 34.0 RDW 15.2 Plt Count 300 MPV 9.9 Absolute Nucleated RBC 0.000 Nucleated RBC % (auto) 0.0 Anion Gap 18 Estim Creat Clear Calc 9.8 Estimated GFR 9 Random Glucose 196 H D Estimat Average Glucose Hemoglobin A1c % Calcium 6.5 L Vancomycin Trough Blood Type A Positive Antibody Screen NEGATIVE Crossmatch See Detail 05/31/21 05/31/21 05:56 09:15 MCV MCH MCHC RDW Plt Count MPV Absolute Nucleated RBC Nucleated RBC % (auto) Anion Gap Estim Creat Clear Calc Estimated GFR Random Glucose Estimat Average Glucose 114 Hemoglobin A1c % 5.6 Calcium Vancomycin Trough 7.3 L Blood Type Antibody Screen Crossmatch Microbiology Microbiology Results: Microbiology 05/28/21 15:46 Urine Culture - Final Urine Other - Nephrostomy Pseudomonas putida Staphylococcus aureus 05/28/21 16:01 Urine Culture - Final Urine Other - Nephrostomy Pseudomonas putida Staphylococcus aureus 05/28/21 16:48 Blood Culture - Final Blood - Venous Staphylococcus aureus 05/28/21 16:48 Blood Culture - Final Blood - Venous Staphylococcus aureus Assessment and Plan (1) Obstructive uropathy: Status: Acute (2) ESRD (end stage renal disease): Status: Acute (3) Acidosis: Status: Acute (4) Hyperkalemia: Status: Acute (5) Acute pyelonephritis: Status: Acute (6) Staphylococcus aureus bacteremia: Status: Acute Assessment and Plan: Staphylococcus bacteremia Likely source urine Initially given vancomycin id recommend cephazolin post hemodialysis Repeat blood cultures x2 Acute pyelonephritis likely due to obstructive uropathy/s/p bilateral nephrostomies tubes/bilateral stent during last admission. No evidence of sepsis Urine culture positive for Pseudomonas and Staphylococcus Blood cultures x2 positive for Staph aureus, s/p IV vancomycin renally dosed Id recommend cephazolin will discuss IV antibiotic choice and duration with ID CT abdomen showed no obstruction, bilateral stents in place End-stage renal disease Worsening renal function with acidosis, due to obstructive uropathy Status post PermCath, started on hemodialysis 05/29 , receive short hemodialysis yesterday. Will have hemodialysis arranged Tuesday and Tuesday as per Nephrology Will continue soda bicarb/low-potassium diet Bicarb improving, Follow renal function Mild hyponatremia due to kidney disease Sodium improved to 131 Acute on Chronic normocytic Anemia likely due to kidney disease Hematocrit dropped significantly no active bleeding noticed s/p 2 units of packed RBC hematocrit improved Prior iron studies showed no evidence of iron deficiency anemia, TSH 2.2 will check stool guaiac Follow hematocrit closely Hyperglycemia with no history of diabetes, blood sugars 130-200 range, hemoglobin A1c 5.1 hypocalcemia with sclerotic bone lesions likely due to long standing secondary hyperparathyroid from CKD calcium and vitamin-D placement Elevated prostate will need outpatient prostate biopsy Code status full code DVT prophylaxis with compression boots Quality Stroke Does the patient have a stroke diagnosis?: No VTE Prior VTE?: No VTE Risk Level:: Medical - moderate - high VTE Device Contraindication: N/A - Device Ordered VTE Drug Contraindication: Treatment Not Indicated
[2021-05-31] MEDS: Acetaminophen 325 MG TABLET 650 MG PO ×2 (12:20→20:14)
[2021-05-31 15:51] VITALS: BP 144/64; PULSE 72; RESP 18; TEMP 36; O2SAT 99
[2021-05-31] MEDS: Calcium + Vitamin D 250 MG TABLET 500 MG PO (16:08)
[2021-05-31] MEDS: levoFLOXacin/D5W 750 MG/150 ML PIGGYBACK 100 MG IV (17:48)
[2021-05-31] MEDS: Melatonin 3 MG TABLET 6 MG PO (20:14)
[2021-06-01] VITALS: RESP 14
[2021-06-01 05:47] VITALS: BP 136/70; PULSE 80; RESP 16; TEMP 37.6; O2SAT 98
[2021-06-01 05:51] LABS: Hematocrit 25.8 % (42.0-52.0); Hemoglobin 8.7 g/dl (14.0-18.0); Mean Corpuscular HGB Conc 33.7 g/dl (31.0-36.0); Mean Corpuscular Hemoglobin 28.5 pg (27.0-33.0); Mean Corpuscular Volume 84.6 fL (80.0-98.0); Mean Platelet Volume 10.6 fL (9.4-12.4); Platelet Count 283 X10*3/uL (160-400); Red Blood Count 3.05 X10*6/uL (4.60-5.80); Red Cell Distribution Width 15.3 % (11.0-16.0); White Blood Count 19.1 X10*3/uL (4.8-10.8)
[2021-06-01 06:08] LABS: Anion Gap 18 (12-20); Blood Urea Nitrogen 87 mg/dL (9-16); Calcium 6.5 mg/dL (8.4-10.2); Carbon Dioxide 15 mmol/L (22-29); Chloride 98 mmol/L (96-108); Estimated Glomerular Filt Rate 9; Glucose Random 128 mg/dL (60-115); Potassium 4.4 mmol/L (3.3-5.1); Sodium 127 mmol/L (135-145)
[2021-06-01 08:00] VITALS: BP 140/64; PULSE 81; RESP 17; TEMP 36.6; O2SAT 99
[2021-06-01] MEDS: oxyCODONE HCl Immed Release 5 MG TABLET PO ×3 (10:03→21:47)
[2021-06-01] MEDS: Sodium Bicarbonate 650 MG TABLET PO ×3 (10:03→19:40)
[2021-06-01] MEDS: 0.9 % Sodium Chloride Flush 3 ML SYRINGE IVFLUSH ×3 (10:03→19:40)
[2021-06-01] MEDS: Calcium + Vitamin D 250 MG TABLET 500 MG PO ×2 (10:03→16:08)
--- NOTE | 2021-06-01 11:22 | P.PNNP_ITS ---
Subjective Subjective Date of Service: 06/01/21 Interval history: Seen AM. Events noted. All recent data reviewed. Had issues with temporary RIJ cathter. Right Nephrostomy not draining. Feels marginally better. Asking whether he is a renal transplant candidate Physical Exam Vital Signs: Vital Signs: Last Vital Signs Temp 97.8 F 06/01/21 08:00 Pulse 81 06/01/21 08:00 Resp 17 06/01/21 08:00 BP 140/64 H 06/01/21 08:00 Pulse Ox 99 06/01/21 08:00 Body Mass Index 23.8 Const: General: no acute distress Orientation/consciousness: patient oriented x3 Eyes: EOM: EOMs intact bilaterally Neck: Neck: Yes supple Resp: Auscultation: diminished lung sounds Cardio: Jugular venous distension: no JVD Rate: regular rate GI: Palpation (GI): Soft to palpation Neuro: General: patient oriented x3 and moves all extremities Objective Data Labs CBC & Chem 7: 06/01/21 05:35 06/01/21 05:35 Labs: Laboratory Results - last 24 hr 06/01/21 06/01/21 05:35 05:35 WBC 19.1 H RBC 3.05 L Hgb 8.7 L Hct 25.8 L MCV 84.6 MCH 28.5 MCHC 33.7 RDW 15.3 Plt Count 283 MPV 10.6 Absolute Nucleated RBC 0.000 Nucleated RBC % (auto) 0.0 Sodium 127 L Potassium 4.4 Chloride 98 Carbon Dioxide 15 L Anion Gap 18 BUN 87 H* Creatinine 6.67 H* Estim Creat Clear Calc 9.0 Estimated GFR 9 Random Glucose 128 H Calcium 6.5 L Microbiology Microbiology Results: Microbiology 05/28/21 15:46 Urine Other - Nephrostomy Urine Culture - Final Pseudomonas putida Staphylococcus aureus 05/28/21 16:01 Urine Other - Nephrostomy Urine Culture - Final Pseudomonas putida Staphylococcus aureus 05/28/21 16:48 Blood - Venous Blood Culture - Final Staphylococcus aureus 05/28/21 16:48 Blood - Venous Blood Culture - Final Staphylococcus aureus Procedures Date of Service Date of Service: 06/01/21 Assessment & Plan Assessment and plan (1) ESRD (end stage renal disease): Status: Acute Assessment and Plan: stage 5 CKD due to chronic obstructive uropathy now ESRD; s/p 2 sessions of HD s/p RIJ temporary dialysis catheter placement on 05/29 commenced on dialysis on 05/29 Shall attempt HD through existent RIJ catheter If continues to have blood flow issues, IR needs to change current line to a new one Urology needs to see him- whether his right nephrostomy can be D/Yaw and left can be clamped to see whether it can be D/Yaw Needs permcath when finished with antibiotics and culture negative Shall D/C PO NaHCO3 when acidosis better Outpatient HD spot requested in [facility] Unit Time Spent With Patient Time: Total time spent is greater than 50% in coordination of care (as do cumented) at patient's floor/unit and/or counseling patient: Progress Note: Quality Stroke Does the patient have a stroke diagnosis?: No
--- NOTE | 2021-06-01 13:59 | MHC.CLN ---
F/U PO SHOWS 100% X 3 MEALS. CONTINUES HEMODIALYSIS. BUN AND Cr ELEVATED BUT IMPROVED. CONTINUE TO FOLLOW.
--- NOTE | 2021-06-01 14:39 | HO.PM.IMPN ---
Subjective Subjective Date of Service: 06/01/21 Interval History: Still with complaints of back pain. Right nephrostomy tube not draining; right IJ cath (HD) not 100% functional at dialysis. No fever chills overnight Review of Systems Denies chest pain Denies shortness of breath Denies nausea vomiting diarrhea Physical Exam Vital Signs: Vital Signs: Last Vital Signs Temp 97.8 F 06/01/21 08:00 Pulse 81 06/01/21 08:00 Resp 17 06/01/21 08:00 BP 140/64 H 06/01/21 08:00 Pulse Ox 99 06/01/21 08:00 Body Mass Index 23.8 Const: Other: Uncomfortable but no acute distress HENMT: Other: Membranes moist oropharynx clear Neck: Other: Right IJ catheter site clean dry and intact Resp: Other: Clear to auscultation bilaterally no rales rhonchi or wheezes Cardio: Other: No S4; positive S1-S2; no S3 murmurs rubs or gallops GI: Other: Soft nontender nondistended with normoactive bowel sounds. Back/Spine/Pelvis: Other: Bilateral nephrostomy tube sites clean dry and intact Neuro: Other: Cranial nerves 2-12 grossly intact as tested. Motor is 5/5 all extremities sensation intact cognition appropriate Extrem: Other: No edema bilaterally Objective Data Active Medications Acetaminophen (Acetaminophen 325 Mg Tablet) 650 mg PO Q6H PRN PRN Reason: Pain, Mild (Pain Scale 1-3) Last Admin: 05/31/21 20:14 Dose: 650 mg Documented by: SONNY Calcium Carbonate/Cholecalciferol (Calcium + Vitamin D 250 Mg Tablet) 500 mg PO BIDWM [facility] Last Admin: 06/01/21 10:03 Dose: 500 mg Documented by: LUDIVINA Cefazolin Sodium/Dextrose (Ancef) 2 gm in 50 mls @ 100 mls/hr IV ONCE ONE Stop: 06/01/21 17:14 Levofloxacin (Levaquin) 250 mg in 50 mls @ 50 mls/hr IV Q24H [facility] Melatonin (Melatonin 3 Mg Tablet) 6 mg PO BEDTIME PRN PRN Reason: Insomnia Last Admin: 05/31/21 20:14 Dose: 6 mg Documented by: SONNY Ondansetron HCl (Ondansetron Hcl 4 Mg/2 Ml Vial) 4 mg IVPUSH Q8H PRN PRN Reason: Nausea and Vomiting Oxycodone HCl (Oxycodone Hcl Immed Release 5 Mg Tablet) 5 mg PO Q6H PRN PRN Reason: Pain, Moderate (Pain Scale 4-6 Last Admin: 06/01/21 10:03 Dose: 5 mg Documented by: LUDIVINA Pharmacy Consult (Consult Rx Vancomycin Dosing) 1 each MISCELLANE DAILY PRN PRN Reason: Consult order Sodium Bicarbonate (Sodium Bicarbonate 650 Mg Tablet) 650 mg PO TID [facility] Last Admin: 06/01/21 10:03 Dose: 650 mg Documented by: LUDIVINA Sodium Chloride (0.9 % Sodium Chloride Flush 3 Ml Syringe) 3 ml IVFLUSH QSHIFT [facility] Last Admin: 06/01/21 10:03 Dose: 3 ml Documented by: LUDIVINA Labs CBC & Chem 7: 06/01/21 05:35 06/01/21 05:35 Labs: Laboratory Results - last 24 hr 06/01/21 06/01/21 05:35 05:35 MCV 84.6 MCH 28.5 MCHC 33.7 RDW 15.3 Plt Count 283 MPV 10.6 Absolute Nucleated RBC 0.000 Nucleated RBC % (auto) 0.0 Anion Gap 18 Estim Creat Clear Calc 9.0 Estimated GFR 9 Random Glucose 128 H Calcium 6.5 L Assessment and Plan (1) Staphylococcus aureus bacteremia: Status: Acute (2) Obstructive uropathy: Status: Acute (3) ESRD (end stage renal disease): Status: Acute Assessment and Plan: 61-year-old male with past medical history significant for hypertension, BPH, erosive gastritis, anemia of chronic disease, chronic kidney disease stage 5 recently discharged from [facility] after being evaluated for encephalopathy and worsening creatinine, patient creatinine did not improve significantly due to 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 Restrepo on 04/07/2021 due to persistent hydronephrosis on ultrasound he underwent bilateral nephrostomy tube placement on 04/10/2021, patient is being followed closely by Dr. Restrepo due to elevated PSA and is scheduled to undergo prostate biopsy however patient presented to [facility] today for evaluation of change in his urine from his nephrostomy tubes 1. UTI Currently on IV Kefzol and IV Levaquin after dialysis; urine culture demonstrates Pseudomonas Putida and Staph aureus Verified with ID. 2. Bacteremia.... Staph aureus 2/2 Continue IV Kefzol as per ID. Further duration and switch to oral as dictated by Infectious Disease 3. CKD 5 with bilateral nephrostomy tubes As per review, will consult Dr. Sutton query clamping tube to see if urine output and nephrostomy tubes can be DC. Follow-up with dialysis; if PermCath faulty will ask IR to floor coverer wire and a.m. 4. Anemia Secondary to end-stage renal disease. Further treatment as per Nephrology 5. Hyponatremia Resolving; likely secondary to end-stage renal disease. Follow clinically Full code Lindsay loera [facility] Jimbo Stroke Does the patient have a stroke diagnosis?: No VTE Prior VTE?: No VTE Risk Level:: Medical - moderate - high VTE Device Contraindication: N/A - Device Ordered VTE Drug Contraindication: Treatment Not Indicated
--- NOTE | 2021-06-01 14:53 | PM.EVENT ---
Event Note Date of Service: 06/01/21 Event Note: 4 weeks IV Kefzol and po Levaquin for 14 d
--- NOTE | 2021-06-01 15:46 | MHC.CM.PN ---
EMR REVIEWED, PER HOSPITALIST PT WILL HAVE DIALYSIS TODAY, PLAN TO CONSULT WITH NEPHROLOGY TO SET UP OUPT DIALYSIS, PT NOT READY FOR D/C TODAY, CM WILL CONT TO FOLLOW D/C NEEDS.
[2021-06-01 15:55] VITALS: BP 169/77; PULSE 68; RESP 16; TEMP 36.8; O2SAT 99
[2021-06-01] MEDS: ceFAZolin Sodium/Dextrose,Iso 2 GM/50 ML PIGGYBACK IV (17:03)
[2021-06-01] MEDS: levoFLOXacin/D5W 250 MG/50 ML PIGGYBACK 50 MG IV (17:38)
[2021-06-01] MEDS: Acetaminophen 325 MG TABLET 650 MG PO (19:39)
[2021-06-01] MEDS: Melatonin 3 MG TABLET 6 MG PO (19:40)
[2021-06-02] VITALS: BP 118/59; PULSE 66; RESP 17; TEMP 36.4; O2SAT 97
[2021-06-02 06:11] LABS: Hemoglobin 8.6 g/dl (14.0-18.0); Mean Corpuscular HGB Conc 33.1 g/dl (31.0-36.0); Mean Corpuscular Hemoglobin 28.3 pg (27.0-33.0); Mean Corpuscular Volume 85.5 fL (80.0-98.0); Mean Platelet Volume 10.6 fL (9.4-12.4); Platelet Count 277 X10*3/uL (160-400); Red Blood Count 3.04 X10*6/uL (4.60-5.80); White Blood Count 15.7 X10*3/uL (4.8-10.8)
[2021-06-02 06:22] LABS: Alanine Aminotransferase 31 U/L (0-40); Albumin Level 2.8 g/dL (3.5-5.0); Alkaline Phosphatase 171 U/L (39-117); Anion Gap 20 (12-20); Aspartate Amino Transferase 15 U/L (5-37); Bilirubin Total 0.2 mg/dL (0.0-1.0); Carbon Dioxide 17 mmol/L (22-29); Chloride 99 mmol/L (96-108); Glucose Fasting 128 mg/dL (60-99); Potassium 4.9 mmol/L (3.3-5.1); Sodium 131 mmol/L (135-145); Total Protein 5.5 g/dL (6.5-8.0)
[2021-06-02 06:23] LABS: Blood Urea Nitrogen 93 mg/dL (9-16)
[2021-06-02 06:25] LABS: Creatinine Clr Calc Pharmacy 8.1; Estimated Glomerular Filt Rate 8
[2021-06-02 06:47] LABS: Band Neutrophils Percent 4 % (3-5); Basophils Abs Manual 0.3 X10*3/uL (0.0-0.2); Basophils Percent Manual 2 % (0-2); Eosinophils Absolute Manual 0.2 X10*3/uL (0.0-0.4); Eosinophils Percent Manual 1 % (0-4); Large Platelet PRESENT; Lymphocytes Absolute Manual 0.3 X10*3/uL (1.2-4.9); Lymphocytes Percent Manual 2 % (20-40); Microcytosis 1+ (5-14) /OIF; Monocytes Absolute Manual 0.6 X10*3/uL (0.1-1.2); Monocytes Percent Manual 4 % (2-11); Neutrophils Absolute Manual 14.3 X10*3/uL (2.0-8.3); Neutrophils Percent Manual 87 % (45-73); Platelet Estimate NORMAL (NORMAL); Platelet Morphology Comment NOTED; RBC Morphology NOTED
[2021-06-02 06:48] LABS: Acanthocytes 2+ (3-5) /OIF; Burr Cells 2+ (3-5) /OIF; Ovalocytes 1+ (5-14) /OIF; Tear Drop Cells 1+ (0-2) /OIF
[2021-06-02 07:36] VITALS: BP 125/68; PULSE 76; RESP 18; TEMP 36.7; O2SAT 98
[2021-06-02] MEDS: 0.9 % Sodium Chloride Flush 3 ML SYRINGE IVFLUSH ×3 (07:43→20:10)
[2021-06-02 09:28] LABS: INTERNATIONAL NORM RATIO 1.4 (0.9-1.1)
[2021-06-02 09:30] LABS: Partial Thromboplastin Time 28.9 SEC (24.1-38.0)
--- NOTE | 2021-06-02 10:41 | PM.PNNEP ---
Subjective Subjective Date of Service: 06/02/21 Interval history: Seen AM. Events noted. All recent data reviewed. D/W Med Attending Physical Exam Vital Signs: Vital Signs: Last Vital Signs Temp 98.1 F 06/02/21 07:36 Pulse 76 06/02/21 07:36 Resp 18 06/02/21 07:36 BP 125/68 06/02/21 07:36 Pulse Ox 98 06/02/21 07:36 Body Mass Index 23.8 Const: General: comfortable and no acute distress Eyes: EOM: EOMs intact bilaterally Neck: Neck: Yes supple Resp: Auscultation: diminished lung sounds Cardio: Rate: regular rate GI: Palpation (GI): Soft to palpation Neuro: General: moves all extremities Objective Data Labs CBC & Chem 7: 06/02/21 05:27 06/02/21 05:27 Labs: Laboratory Results - last 24 hr 06/02/21 06/02/21 06/02/21 05:27 05:27 09:00 WBC 15.7 H RBC 3.04 L Hgb 8.6 L Hct 26.0 L MCV 85.5 MCH 28.3 MCHC 33.1 RDW 15.0 Plt Count 277 MPV 10.6 Immature Gran % (Auto) Cancelled Neut % (Auto) Cancelled Lymph % (Auto) Cancelled [place] % (Auto) Cancelled Eos % (Auto) Cancelled Baso % (Auto) Cancelled Lymph # (Auto) Cancelled [place] # (Auto) Cancelled Eos # (Auto) Cancelled Baso # (Auto) Cancelled Abs Immat Gran (auto) Cancelled Absolute Neuts (auto) Cancelled Absolute Nucleated RBC 0.000 Nucleated RBC % (auto) 0.0 Neutrophils % (Manual) 87 H Band Neutrophils % 4 Lymphocytes % (Manual) 2 L Monocytes % (Manual) 4 Eosinophils % (Manual) 1 Basophils % (Manual) 2 Abs Neuts (Manual) 14.3 H Lymphocytes # (Manual) 0.3 L Monocytes # (Manual) 0.6 Eosinophils # (Manual) 0.2 Basophils # (Manual) 0.3 H Platelet Estimate NORMAL Large Platelets PRESENT Plt Morphology Comment NOTED RBC Morphology NOTED Microcytosis 1+ (5-14) Tear Drop Cells 1+ (0-2) Ovalocytes 1+ (5-14) [place] Cells 2+ (3-5) Acanthocytes (Spur) 2+ (3-5) PT 16.0 H INR 1.4 H APTT 28.9 Sodium 131 L Potassium 4.9 Chloride 99 Carbon Dioxide 17 L Anion Gap 20 BUN 93 H* Creatinine 7.41 H* Estim Creat Clear Calc 8.1 Estimated GFR 8 Fasting Glucose 128 H Calcium 7.0 L D Total Bilirubin 0.2 AST 15 ALT 31 Alkaline Phosphatase 171 H D Total Protein 5.5 L Albumin 2.8 L D Microbiology Microbiology Results: Microbiology 05/28/21 15:46 Urine Other - Nephrostomy Urine Culture - Final Pseudomonas putida Staphylococcus aureus 05/28/21 16:01 Urine Other - Nephrostomy Urine Culture - Final Pseudomonas putida Staphylococcus aureus 05/28/21 16:48 Blood - Venous Blood Culture - Final Staphylococcus aureus 05/28/21 16:48 Blood - Venous Blood Culture - Final Staphylococcus aureus Procedures Date of Service Date of Service: 06/02/21 Assessment & Plan Assessment and plan (1) ESRD (end stage renal disease): Status: Acute Assessment and Plan: Had stage 5 CKD due to chronic obstructive uropathy now ESRD; s/p 2 sessions of HD s/p RIJ temporary dialysis catheter placement on 05/29 commenced on dialysis on 05/29 Shall attempt tpA in the existent RIJ catheter; Next HD tomorrow ordered If continues to have access issues, IR needs to change current line to a new one Urology needs to see him- whether his right nephrostomy can be D/Yaw and left can be clamped to see whether it can be D/Yaw Needs permcath when finished with antibiotics and culture negative Shall D/C PO NaHCO3 when acidosis better Outpatient HD spot arranged in [facility] Unit MWF 1st shift Tel [phone] Time Spent With Patient Time: Total time spent is greater than 50% in coordination of care (as documented) at patient's floor/unit and/or counseling patient: Progress Note: Quality Stroke Does the patient have a stroke diagnosis?: No
[2021-06-02] MEDS: Alteplase Cath Clear 2 MG VIAL INTRACATH (12:02)
[2021-06-02] MEDS: Sodium Bicarbonate 650 MG TABLET PO ×2 (14:19→20:04)
[2021-06-02] MEDS: oxyCODONE HCl Immed Release 5 MG TABLET PO ×2 (14:19→20:05)
[2021-06-02 15:15] VITALS: BP 130/66; PULSE 75; RESP 16; TEMP 36.7; O2SAT 99
--- NOTE | 2021-06-02 15:29 | HO.PM.IMPN ---
Subjective Subjective Date of Service: 06/02/21 Interval History: No acute issues. Pain control adequate Review of Systems Denies chest pain Denies shortness of breath Denies nausea vomiting diarrhea Constitutional Constitutional: Reports anorexia and Reports weakness Neurologic Neurologic: Reports weakness Physical Exam Vital Signs: Vital Signs: Last Vital Signs Temp 98.0 F 06/02/21 15:15 Pulse 75 06/02/21 15:15 Resp 16 06/02/21 15:15 BP 130/66 06/02/21 15:15 Pulse Ox 99 06/02/21 15:15 Body Mass Index 23.8 Const: Other: Uncomfortable but no acute distress HENMT: Other: Membranes moist oropharynx clear Neck: Other: Right IJ catheter site clean dry and intact Resp: Other: Clear to auscultation bilaterally no rales rhonchi or wheezes Cardio: Other: No S4; positive S1-S2; no S3 murmurs rubs or gallops GI: Other: Soft nontender nondistended with normoactive bowel sounds. Back/Spine/Pelvis: Other: Bilateral nephrostomy tube sites clean dry and intact Neuro: Other: Cranial nerves 2-12 grossly intact as tested. Motor is 5/5 all extremities sensation intact cognition appropriate Extrem: Other: No edema bilaterally Objective Data Active Medications Acetaminophen (Acetaminophen 325 Mg Tablet) 650 mg PO Q6H PRN PRN Reason: Pain, Mild (Pain Scale 1-3) Last Admin: 06/01/21 19:39 Dose: 650 mg Documented by: LESTER Calcium Carbonate/Cholecalciferol (Calcium + Vitamin D 250 Mg Tablet) 500 mg PO BIDWM REPLACED BY [facility] Last Admin: 06/02/21 07:43 Dose: Not Given Documented by: AMITA Non-Admin Reason: NPO Levofloxacin (Levaquin) 250 mg in 50 mls @ 50 mls/hr IV Q24H REPLACED BY [facility] Last Infusion: 06/01/21 18:32 Dose: 0 mls/hr Documented by: COTEMA Melatonin (Melatonin 3 Mg Tablet) 6 mg PO BEDTIME PRN PRN Reason: Insomnia Last Admin: 06/01/21 19:40 Dose: 6 mg Documented by: LESTER Ondansetron HCl (Ondansetron Hcl 4 Mg/2 Ml Vial) 4 mg IVPUSH Q8H PRN PRN Reason: Nausea and Vomiting Oxycodone HCl (Oxycodone Hcl Immed Release 5 Mg Tablet) 5 mg PO Q6H PRN PRN Reason: Pain, Moderate (Pain Scale 4-6 Last Admin: 06/02/21 14:19 Dose: 5 mg Documented by: AMITA Pharmacy Consult (Consult Rx Vancomycin Dosing) 1 each MISCELLANE DAILY PRN PRN Reason: Consult order Sodium Bicarbonate (Sodium Bicarbonate 650 Mg Tablet) 650 mg PO TID REPLACED BY [facility] Last Admin: 06/02/21 14:19 Dose: 650 mg Documented by: AMITA Sodium Chloride (0.9 % Sodium Chloride Flush 3 Ml Syringe) 3 ml IVFLUSH QSHIFT REPLACED BY [facility] Last Admin: 06/02/21 14:19 Dose: 3 ml Documented by: AMITA Labs CBC & Chem 7: 06/02/21 05:27 06/02/21 05:27 Labs: Laboratory Results - last 24 hr 05/28/21 05/29/21 05/30/21 15:30 06:28 05:26 WBC 22.4 H 25.3 H 19.2 H MCV MCH MCHC RDW Plt Count MPV Immature Gran % (Auto) Neut % (Auto) Lymph % (Auto) [place] % (Auto) Eos % (Auto) Baso % (Auto) Lymph # (Auto) [place] # (Auto) Eos # (Auto) Baso # (Auto) Abs Immat Gran (auto) Absolute Neuts (auto) Absolute Nucleated RBC Nucleated RBC % (auto) Neutrophils % (Manual) Band Neutrophils % Lymphocytes % (Manual) Monocytes % (Manual) Eosinophils % (Manual) Basophils % (Manual) Abs Neuts (Manual) Lymphocytes # (Manual) Monocytes # (Manual) Eosinophils # (Manual) Basophils # (Manual) Platelet Estimate Large Platelets Plt Morphology Comment RBC Morphology Microcytosis Tear Drop Cells Ovalocytes [place] Cells Acanthocytes (Spur) PT INR APTT Anion Gap Estim Creat Clear Calc Estimated GFR Fasting Glucose Calcium Total Bilirubin AST ALT Alkaline Phosphatase Total Protein Albumin 05/31/21 06/01/21 06/02/21 05:56 05:35 05:27 WBC 19.5 H 19.1 H 15.7 H MCV 85.5 MCH 28.3 MCHC 33.1 RDW 15.0 Plt Count 277 MPV 10.6 Immature Gran % (Auto) Cancelled Neut % (Auto) Cancelled Lymph % (Auto) Cancelled [place] % (Auto) Cancelled Eos % (Auto) Cancelled Baso % (Auto) Cancelled Lymph # (Auto) Cancelled [place] # (Auto) Cancelled Eos # (Auto) Cancelled Baso # (Auto) Cancelled Abs Immat Gran (auto) Cancelled Absolute Neuts (auto) Cancelled Absolute Nucleated RBC 0.000 Nucleated RBC % (auto) 0.0 Neutrophils % (Manual) 87 H Band Neutrophils % 4 Lymphocytes % (Manual) 2 L Monocytes % (Manual) 4 Eosinophils % (Manual) 1 Basophils % (Manual) 2 Abs Neuts (Manual) 14.3 H Lymphocytes # (Manual) 0.3 L Monocytes # (Manual) 0.6 Eosinophils # (Manual) 0.2 Basophils # (Manual) 0.3 H Platelet Estimate NORMAL Large Platelets PRESENT Plt Morphology Comment NOTED RBC Morphology NOTED Microcytosis 1+ (5-14) Tear Drop Cells 1+ (0-2) Ovalocytes 1+ (5-14) [place] Cells 2+ (3-5) Acanthocytes (Spur) 2+ (3-5) PT INR APTT Anion Gap Estim Creat Clear Calc Estimated GFR Fasting Glucose Calcium Total Bilirubin AST ALT Alkaline Phosphatase Total Protein Albumin 06/02/21 06/02/21 05:27 09:00 WBC MCV MCH MCHC RDW Plt Count MPV Immature Gran % (Auto) Neut % (Auto) Lymph % (Auto) [place] % (Auto) Eos % (Auto) Baso % (Auto) Lymph # (Auto) [place] # (Auto) Eos # (Auto) Baso # (Auto) Abs Immat Gran (auto) Absolute Neuts (auto) Absolute Nucleated RBC Nucleated RBC % (auto) Neutrophils % (Manual) Band Neutrophils % Lymphocytes % (Manual) Monocytes % (Manual) Eosinophils % (Manual) Basophils % (Manual) Abs Neuts (Manual) Lymphocytes # (Manual) Monocytes # (Manual) Eosinophils # (Manual) Basophils # (Manual) Platelet Estimate Large Platelets Plt Morphology Comment RBC Morphology Microcytosis Tear Drop Cells Ovalocytes [place] Cells Acanthocytes (Spur) PT 16.0 H INR 1.4 H APTT 28.9 Anion Gap 20 Estim Creat Clear Calc 8.1 Estimated GFR 8 Fasting Glucose 128 H Calcium 7.0 L D Total Bilirubin 0.2 AST 15 ALT 31 Alkaline Phosphatase 171 H D Total Protein 5.5 L Albumin 2.8 L D Assessment and Plan (1) Staphylococcus aureus bacteremia: Status: Acute (2) Obstructive uropathy: Status: Acute (3) ESRD (end stage renal disease): Status: Acute Assessment and Plan: 61-year-old male with past medical history significant for hypertension, BPH, erosive gastritis, anemia of chronic disease, chronic kidney disease stage 5; ongoing issues with right IJ access port. Flush with 2 mL tPA this morning; Saline flush to follow-up without issue 1. UTI Continue IV Kefzol and IV Levaquin after dialysis; urine culture demonstrates Pseudomonas Putida and Staph aureus Verified with ID. 2. Bacteremia.... Staph aureus 2/2 Continue IV Kefzol as per ID. Further duration and switch to oral as dictated by Infectious Disease 3. CKD 5 with bilateral nephrostomy tubes As per review, will consult Dr. Sutton query clamping tube to see if urine output and nephrostomy tubes can be DC. Follow-up with dialysis; right IJ calf flushed with tPA; follow-up saline flush without issue. Will retry it HD as per Renal 4. Anemia Secondary to end-stage renal disease. Further treatment as per Nephrology 5. Hyponatremia Resolving; likely secondary to end-stage renal disease. Follow clinically Full code Vena kirstines boots Quality Stroke Does the patient have a stroke diagnosis?: No VTE Prior VTE?: No VTE Risk Level:: Medical - moderate - high VTE Device Contraindication: N/A - Device Ordered VTE Drug Contraindication: Treatment Not Indicated
[2021-06-02] MEDS: Calcium + Vitamin D 250 MG TABLET 500 MG PO (16:26)
[2021-06-02] MEDS: levoFLOXacin/D5W 250 MG/50 ML PIGGYBACK 50 MG IV (16:26)
[2021-06-02] MEDS: Melatonin 3 MG TABLET 6 MG PO (20:05)
[2021-06-02 20:30] VITALS: BP 143/72; PULSE 70; RESP 18; TEMP 36.7; O2SAT 100
[2021-06-03] VITALS: BP 144/69; PULSE 73; RESP 18; TEMP 36.7; O2SAT 99
[2021-06-03 04:26] VITALS: BP 120/81; PULSE 83; RESP 18; TEMP 36.7; O2SAT 97
--- NOTE | 2021-06-03 05:14 | PC.NURSE ---
clamped pt's left nephrostomy tube at 1999. pt was only able to void a few drops of urine. bladder scanned pt at 0430 for 495 ml. [employer] message sent to Dr. Restrepo, he instructed to unclamp. Unclamped nephrostomy tube at 044.
[2021-06-03 05:59] LABS: MANUAL DIFF FLAG NO
[2021-06-03 06:08] LABS: Basophils Absolute Auto 0.1 X10*3/uL (0.0-0.2); Basophils Percent Auto 0.3 % (0-2); Eosinophils Absolute Auto 0.1 X10*3/uL (0.0-0.4); Eosinophils Percent Auto 0.5 % (0-4); Hematocrit 22.5 % (42.0-52.0); Hemoglobin 7.7 g/dl (14.0-18.0); Imm Gran Abs Auto 0.79 X10*3/uL (0.00-0.03); Imm Gran Pct Auto 4.9 % (0.0-0.4); Lymphocytes Percent Auto 5.9 % (20-40); Mean Corpuscular HGB Conc 34.2 g/dl (31.0-36.0); Mean Corpuscular Hemoglobin 28.6 pg (27.0-33.0); Mean Corpuscular Volume 83.6 fL (80.0-98.0); Mean Platelet Volume 10.9 fL (9.4-12.4); Monocytes Absolute Auto 0.9 X10*3/uL (0.1-1.2); Monocytes Percent Auto 5.5 % (2-11); Neutrophils Absolute Auto 13.34 x10*3/uL (2.0-8.3); Neutrophils Percent Auto 82.9 % (45-73); Platelet Count 273 X10*3/uL (160-400); Red Blood Count 2.69 X10*6/uL (4.60-5.80); Red Cell Distribution Width 14.9 % (11.0-16.0); White Blood Count 16.1 X10*3/uL (4.8-10.8)
[2021-06-03 06:36] LABS: Alanine Aminotransferase 17 U/L (0-40); Albumin Level 2.7 g/dL (3.5-5.0); Alkaline Phosphatase 168 U/L (39-117); Anion Gap 22 (12-20); Aspartate Amino Transferase 15 U/L (5-37); Bilirubin Total 0.2 mg/dL (0.0-1.0); Blood Urea Nitrogen 108 mg/dL (9-16); Calcium 6.7 mg/dL (8.4-10.2); Carbon Dioxide 13 mmol/L (22-29); Chloride 99 mmol/L (96-108); Creatinine Clr Calc Pharmacy 7.4; Estimated Glomerular Filt Rate 7; Glucose Fasting 146 mg/dL (60-99); Potassium 4.8 mmol/L (3.3-5.1); Sodium 129 mmol/L (135-145); Total Protein 5.4 g/dL (6.5-8.0)
[2021-06-03 07:36] VITALS: BP 113/60; PULSE 70; RESP 17; TEMP 36.7; O2SAT 98
[2021-06-03] MEDS: Calcium + Vitamin D 250 MG TABLET 500 MG PO ×2 (08:24→15:36)
[2021-06-03] MEDS: Sodium Bicarbonate 650 MG TABLET PO ×3 (08:24→20:03)
[2021-06-03] MEDS: 0.9 % Sodium Chloride Flush 3 ML SYRINGE IVFLUSH ×3 (08:25→20:03)
--- NOTE | 2021-06-03 10:05 | PM.PNNEP ---
Subjective Subjective Date of Service: 06/03/21 Interval history: Seen on HD. Blood cultures going to be repeated. Due HD tomorrow. Needs a permcath Physical Exam Vital Signs: Vital Signs: Last Vital Signs Temp 98.1 F 06/03/21 07:36 Pulse 70 06/03/21 07:36 Resp 17 06/03/21 07:36 BP 113/60 06/03/21 07:36 Pulse Ox 98 06/03/21 07:36 Body Mass Index 23.8 Const: General: no acute distress Orientation/consciousness: patient oriented x3 Eyes: EOM: EOMs intact bilaterally Resp: Auscultation: diminished lung sounds Cardio: Rate: regular rate GI: Palpation (GI): Soft to palpation Neuro: General: patient oriented x3 and moves all extremities Objective Data Labs CBC & Chem 7: 06/03/21 05:24 06/03/21 05:24 Labs: Laboratory Results - last 24 hr 06/03/21 06/03/21 05:24 05:24 WBC 16.1 H RBC 2.69 L Hgb 7.7 L Hct 22.5 L MCV 83.6 MCH 28.6 MCHC 34.2 RDW 14.9 Plt Count 273 MPV 10.9 Immature Gran % (Auto) 4.9 H Neut % (Auto) 82.9 H Lymph % (Auto) 5.9 L [place] % (Auto) 5.5 Eos % (Auto) 0.5 Baso % (Auto) 0.3 Lymph # (Auto) 1.0 L [place] # (Auto) 0.9 Eos # (Auto) 0.1 Baso # (Auto) 0.1 Abs Immat Gran (auto) 0.79 H Absolute Neuts (auto) 13.34 H Absolute Nucleated RBC 0.000 Nucleated RBC % (auto) 0.0 Sodium 129 L Potassium 4.8 Chloride 99 Carbon Dioxide 13 L Anion Gap 22 H BUN 108 H* Creatinine 8.11 H* Estim Creat Clear Calc 7.4 Estimated GFR 7 Fasting Glucose 146 H Calcium 6.7 L Total Bilirubin 0.2 AST 15 ALT 17 Alkaline Phosphatase 168 H Total Protein 5.4 L Albumin 2.7 L Microbiology Microbiology Results: Microbiology 05/28/21 15:46 Urine Other - Nephrostomy Urine Culture - Final Pseudomonas putida Staphylococcus aureus 05/28/21 16:01 Urine Other - Nephrostomy Urine Culture - Final Pseudomonas putida Staphylococcus aureus 05/28/21 16:48 Blood - Venous Blood Culture - Final Staphylococcus aureus 05/28/21 16:48 Blood - Venous Blood Culture - Final Staphylococcus aureus Procedures Date of Service Date of Service: 06/03/21 Assessment & Plan Assessment and plan (1) ESRD (end stage renal disease): Status: Acute Assessment and Plan: Had stage 5 CKD due to chronic obstructive uropathy now ESRD; s/p 2 sessions of HD. Currently on HD s/p RIJ temporary dialysis catheter placement on 05/29 commenced on dialysis on 05/29; Next HD tomorrow Urology needs to follow him Needs permcath when culture negative ? Tuesday AM Shall D/C PO NaHCO3 when acidosis better Outpatient HD spot arranged in [facility] Unit MWF 1st shift Tel [phone] Time Spent With Patient Time: Total time spent is greater than 50% in coordination of care (as documented) at patient's floor/unit and/or counseling patient: Progress Note: Quality Stroke Does the patient have a stroke diagnosis?: No
--- NOTE | 2021-06-03 10:59 | P.CNUR_ITS ---
History of Present Illness Consult details Consult date: 06/02/21 Narrative: Darwin is a patient known to Urology Current consultation for PCN tube management Initial presentation April with bilateral hydroureteronephrosis, acute on chronic renal failure and elevated PSA Subsequent investigations required bilateral PCN placement, bilateral ureteric stents. Bone scan does indicate possible metastatic disease PSA 23 at initial time of presentation Discussion today regarding bone scan findings. Need to plan for prostate biopsy to potentially initiate GnRH therapy Has been on bicalutamide for testosterone suppression Right PCN tube removed Left PCN tube clamped as clamp trial. He has poor urinary performance and may require left tube to remain Is undergoing hemodialysis for renal failure Review of Systems Constitutional: Constitutional: Denies chills and Denies fever(s) Cardiovascular: Cardiovascular: Reports no additional cardiovascular complaints and Denies syncope Respiratory: Respiratory: Denies cough Gastrointestinal: Gastrointestinal: Denies abdominal pain and Denies heartburn Genitourinary: Genitourinary: Reports as per HPI and Denies change in libido Neurologic: Denies syncope Psychiatric: Psychiatric: Denies change in libido Endocrine: Endocrine: Denies change in libido [facility] Past Medical History Medical History Enlarged prostate Kidney disease Family History Family history: reviewed and not pertinent Social History Social History Household Members: Other Household Members Other:: sister Housing: House Housing Other:: mobile home Do you presently have visiting nurse or other home services: No Patient Tobacco Use Status: Former Tobacco user Tobacco use type: Cigarette e-Cigarette/Vaping Use: Former Use Use of substances other than those prescribed or required for medical reasons: Yes Substance Use Type: Marijuana Substance Use Frequency: Daily Last Used Substance Other:: yesterday evening Currently Displaying Signs/Symptoms of Drug Intoxication Withdrawal: No Any prior treatment program specific to substance use: No Have you been hit, kicked, punched, or otherwise hurt by someone within the past year? If so, by whom?: No Do you feel safe in your current relationship?: Yes Is there a partner from a previous relationship who is making you feel unsafe now?: No Are you made to feel afraid or neglected: No Baptism Healthcare Practices: religion Advance Directives: No Advance Directives Information Provided: No Do you have thoughts of harming others: None Do you have a plan to hurt others: No Plan Recently lost weight without trying: Yes How much weight loss: 14-23 pounds Eating poorly because of decreased appetite: Yes Nutrition screen score: 5 Poor oral hygiene: No service: No Current occupational status: disabled Meds Allergies Allergy/AdvReac Type Severity Reaction Status Date / Time No Known Allergies Allergy Verified 05/28/21 14:23 [No Known Allergies*] Active Medications: Current Medications Acetaminophen (Acetaminophen 325 Mg Tablet) 650 mg PO Q6H PRN PRN Reason: Pain, Mild (Pain Scale 1-3) Last Admin: 06/01/21 19:39 Dose: 650 mg Documented by: Calcium Carbonate/Cholecalciferol (Calcium + Vitamin D 250 Mg Tablet) 500 mg PO BIDWM [facility] Last Admin: 06/03/21 08:24 Dose: 500 mg Documented by: Levofloxacin (Levaquin) 250 mg in 50 mls @ 50 mls/hr IV Q24H [facility] Last Infusion: 06/02/21 17:32 Dose: Infused Documented by: Melatonin (Melatonin 3 Mg Tablet) 6 mg PO BEDTIME PRN PRN Reason: Insomnia Last Admin: 06/02/21 20:05 Dose: 6 mg Documented by: Ondansetron HCl (Ondansetron Hcl 4 Mg/2 Ml Vial) 4 mg IVPUSH Q8H PRN PRN Reason: Nausea and Vomiting Oxycodone HCl (Oxycodone Hcl Immed Release 5 Mg Tablet) 5 mg PO Q6H PRN PRN Reason: Pain, Moderate (Pain Scale 4-6 Last Admin: 06/02/21 20:05 Dose: 5 mg Documented by: Pharmacy Consult (Consult Rx Vancomycin Dosing) 1 each MISCELLANE DAILY PRN PRN Reason: Consult order Sodium Bicarbonate (Sodium Bicarbonate 650 Mg Tablet) 650 mg PO TID [facility] Last Admin: 06/03/21 08:24 Dose: 650 mg Documented by: Sodium Chloride (0.9 % Sodium Chloride Flush 3 Ml Syringe) 3 ml IVFLUSH QSHIFT [facility] Last Admin: 06/03/21 08:25 Dose: 3 ml Documented by: Home Medications Medication Instructions Recorded Confirmed Last Taken Type lkntzzbp-pno-dkudg acid 300 1 tab PO DAILY 09/01/21 09/01/21 08/31/21 History mcg-lycopene 600 mcg-lutein 300 mcg tablet (Centrum Silver Men) Physical Exam Vital Signs: Vital Signs: Last Vital Signs Temp 98.1 F 06/03/21 07:36 Pulse 70 06/03/21 07:36 Resp 17 06/03/21 07:36 BP 113/60 06/03/21 07:36 Pulse Ox 98 06/03/21 07:36 Body Mass Index 23.8 Const: General: cooperative, healthy appearing, comfortable and no acute distress Orientation/consciousness: patient oriented x3 HENMT: Face and sinus: Yes normal facial exam Mouth: moist mucous membranes Neck: Neck: Yes normal visual inspection, Yes full ROM and Yes trachea midline Chest: Chest palpation & inspection: normal inspection of the chest Resp: Effort & Inspection: normal respiratory effort, able to speak in complete sentences and no respiratory distress GI: Inspection: Yes normal to inspection Back/Spine/Pelvis: Cervical Spine: normal cervical lordosis Thoracic/Lumbar Spine: thoracic and lumbar spine normal to inspection Skin: General skin exam: no rashes or lesions noted Neuro: General: patient oriented x3, gait normal, tone normal and moves all extremities Extrem: General: Yes normal to inspection and Yes capillary refill normal Results Labs Result diagrams: 06/03/21 05:24 06/03/21 05:24 Labs: Abnormal lab results 06/03/21 06/03/21 Range/Units 05:24 05:24 WBC 16.1 H (4.8-10.8) X10*3/uL RBC 2.69 L (4.60-5.80) X10*6/uL Hgb 7.7 L (14.0-18.0) g/dl Hct 22.5 L (42.0-52.0) % Immature Gran % (Auto) 4.9 H (0.0-0.4) % Neut % (Auto) 82.9 H (45-73) % Lymph % (Auto) 5.9 L (20-40) % Lymph # (Auto) 1.0 L (1.2-4.9) X10*3/uL Abs Immat Gran (auto) 0.79 H (0.00-0.03) X10*3/uL Absolute Neuts (auto) 13.34 H (2.0-8.3) x10*3/uL Sodium 129 L (135-145) mmol/L Carbon Dioxide 13 L (22-29) mmol/L Anion Gap 22 H (12-20) BUN 108 H* (9-16) mg/dL Creatinine 8.11 H* (0.5-1.4) mg/dL Fasting Glucose 146 H (60-99) mg/dL Calcium 6.7 L (8.4-10.2) mg/dL Alkaline Phosphatase 168 H (39-117) U/L Total Protein 5.4 L (6.5-8.0) g/dL Albumin 2.7 L (3.5-5.0) g/dL Short CBC 06/03/21 Range/Units 05:24 WBC 16.1 H (4.8-10.8) X10*3/uL Hgb 7.7 L (14.0-18.0) g/dl Hct 22.5 L (42.0-52.0) % Plt Count 273 (160-400) X10*3/uL BMP 06/03/21 05:24 Sodium 129 L Potassium 4.8 Chloride 99 Carbon Dioxide 13 L BUN 108 H* Creatinine 8.11 H* Calcium 6.7 L Liver Function 06/03/21 Range/Units 05:24 Total Bilirubin 0.2 (0.0-1.0) mg/dL AST 15 (5-37) U/L ALT 17 (0-40) U/L Alkaline Phosphatase 168 H (39-117) U/L Albumin 2.7 L (3.5-5.0) g/dL Urine 05/28/21 05/28/21 Range/Units 15:46 15:46 Urine Color YELLOW BROWN Urine Appearance CLOUDY CLOUDY Urine pH 6.0 5.0 (5.0-8.0) Ur Specific [place] 1.025 1.015 (1.005-1.025) Urine Protein 3+ H 3+ H (NEG-TRACE) MG/DL Urine Glucose (UA) NEG 100 H (NEG) MG/DL All other labs normal. Assessment and Plan (1) Obstructive uropathy: Status: Acute May require prostate biopsy during current admission Voiding trial with PCN left side clamped Procedures Date of Service Date of Service: 06/02/21
--- NOTE | 2021-06-03 13:52 | MHC.CLN ---
F/U VISITED PATIENT IN DIALYSIS. REPORTS THAT IS EATING WELL. DISCUSSED INCREASED PROTEIN NEED WITH DIALYSIS AND PATIENT AGREED TO ENSURE CLEAR BID (480 KCAL, 16 G PROTEIN). EXPLAINED THAT RD AT DIALYSIS WOULD REVIEW DIETARY NEEDS. ANTICIPATES DISCHARGE ON 06/05.
--- NOTE | 2021-06-03 14:16 | P.PNIM_ITS ---
Subjective Subjective Date of Service: 06/03/21 Interval History: No acute issues overnight. Right PCN removed; left PCN clamped with only scant amounts of urine. Left PCN subsequently unclamped Review of Systems Denies chest pain Denies shortness of breath Denies nausea vomiting diarrhea Constitutional Constitutional: Reports anorexia and Reports weakness Neurologic Neurologic: Reports weakness Physical Exam Vital Signs: Vital Signs: Last Vital Signs Temp 98.1 F 06/03/21 07:36 Pulse 70 06/03/21 07:36 Resp 17 06/03/21 07:36 BP 113/60 06/03/21 07:36 Pulse Ox 98 06/03/21 07:36 Body Mass Index 23.8 Const: Other: Uncomfortable but no acute distress HENMT: Other: Membranes moist oropharynx clear Neck: Other: Right IJ catheter site clean dry and intact Resp: Other: Clear to auscultation bilaterally no rales rhonchi or wheezes Cardio: Other: No S4; positive S1-S2; no S3 murmurs rubs or gallops GI: Other: Soft nontender nondistended with normoactive bowel sounds. Back/Spine/Pelvis: Other: Right PCN removed; left PCN dressing clean dry and intact draining scant amount of dark yellow urine Neuro: Other: Cranial nerves 2-12 grossly intact as tested. Motor is 5/5 all extremities sensation intact cognition appropriate Extrem: Other: No edema bilaterally Objective Data Active Medications Acetaminophen (Acetaminophen 325 Mg Tablet) 650 mg PO Q6H PRN PRN Reason: Pain, Mild (Pain Scale 1-3) Last Admin: 06/01/21 19:39 Dose: 650 mg Documented by: LESTER Calcium Carbonate/Cholecalciferol (Calcium + Vitamin D 250 Mg Tablet) 500 mg PO BIDWM [facility] Last Admin: 06/03/21 08:24 Dose: 500 mg Documented by: AMITA Levofloxacin (Levaquin) 250 mg in 50 mls @ 50 mls/hr IV Q24H [facility] Last Infusion: 06/02/21 17:32 Dose: 0 mls/hr Documented by: AMITA Melatonin (Melatonin 3 Mg Tablet) 6 mg PO BEDTIME PRN PRN Reason: Insomnia Last Admin: 06/02/21 20:05 Dose: 6 mg Documented by: TY Ondansetron HCl (Ondansetron Hcl 4 Mg/2 Ml Vial) 4 mg IVPUSH Q8H PRN PRN Reason: Nausea and Vomiting Oxycodone HCl (Oxycodone Hcl Immed Release 5 Mg Tablet) 5 mg PO Q6H PRN PRN Reason: Pain, Moderate (Pain Scale 4-6 Last Admin: 06/02/21 20:05 Dose: 5 mg Documented by: TY Pharmacy Consult (Consult Rx Vancomycin Dosing) 1 each MISCELLANE DAILY PRN PRN Reason: Consult order Sodium Bicarbonate (Sodium Bicarbonate 650 Mg Tablet) 650 mg PO TID [facility] Last Admin: 06/03/21 08:24 Dose: 650 mg Documented by: AMITA Sodium Chloride (0.9 % Sodium Chloride Flush 3 Ml Syringe) 3 ml IVFLUSH QSHIFT [facility] Last Admin: 06/03/21 08:25 Dose: 3 ml Documented by: AMITA Labs CBC & Chem 7: 06/03/21 05:24 06/03/21 05:24 Labs: Laboratory Results - last 24 hr 06/03/21 06/03/21 05:24 05:24 MCV 83.6 MCH 28.6 MCHC 34.2 RDW 14.9 Plt Count 273 MPV 10.9 Immature Gran % (Auto) 4.9 H Neut % (Auto) 82.9 H Lymph % (Auto) 5.[address] [place] % (Auto) 5.5 Eos % (Auto) 0.5 Baso % (Auto) 0.3 Lymph # (Auto) 1.[address] [place] # (Auto) 0.9 Eos # (Auto) 0.1 Baso # (Auto) 0.1 Abs Immat Gran (auto) 0.79 H Absolute Neuts (auto) 13.34 H Absolute Nucleated RBC 0.000 Nucleated RBC % (auto) 0.0 Anion Gap 22 H Estim Creat Clear Calc 7.4 Estimated GFR 7 Fasting Glucose 146 H Calcium 6.7 L Total Bilirubin 0.2 AST 15 ALT 17 Alkaline Phosphatase 168 H Total Protein 5.4 L Albumin 2.7 L Assessment and Plan (1) Staphylococcus aureus bacteremia: Status: Acute (2) ESRD (end stage renal disease): Status: Acute (3) Prostate cancer: Status: Acute Assessment and Plan: 61-year-old male with past medical history significant for hypertension, BPH, erosive gastritis, anemia of chronic disease, chronic kidney disease stage 5; ongoing issues with right IJ access port. Flush with 2 mL tPA this morning; Saline flush to follow-up without issue. 1. UTI Continue IV Kefzol and IV Levaquin after dialysis; urine culture demonstrates Pseudomonas Put[place] and Staph aureus Verified with ID. 2. Bacteremia.... Staph aureus / Re-cultured x2 today follow-up results 3. CKD 5 Right PCN removed; left PCN draining scant amounts urine. Will re-culture blood to demonstrate clearance; pending negative cultures were order PermCath placement 06/05/2021 in IR 4.Anemia Secondary to end-stage renal disease. Stable at this time 5. Prostate cancer Further workup as per Dr. Restrepo 6. Hyponatremia Stable at 129. Continue to follow daily Full code Lindsay Choi Stroke Does the patient have a stroke diagnosis?: No VTE Prior VTE?: No VTE Risk Level:: Medical - moderate - high VTE Device Contraindication: N/A - Device Ordered VTE Drug Contraindication: Treatment Not Indicated
[2021-06-03 15:26] VITALS: BP 130/62; PULSE 77; RESP 14; TEMP 36.9; O2SAT 98
[2021-06-03] MEDS: levoFLOXacin/D5W 250 MG/50 ML PIGGYBACK 50 MG IV (16:59)
[2021-06-03] MEDS: Milk of Magnesia 30 ML ORAL.SUSP PO (18:04)
[2021-06-03] MEDS: oxyCODONE HCl Immed Release 5 MG TABLET PO (18:31)
[2021-06-03] MEDS: Melatonin 3 MG TABLET 6 MG PO (20:03)
[2021-06-03 23:54] VITALS: BP 100/58; PULSE 75; RESP 15; TEMP 37.7; O2SAT 98
[2021-06-04 05:59] LABS: Alanine Aminotransferase 15 U/L (0-40); Albumin Level 2.5 g/dL (3.5-5.0); Alkaline Phosphatase 174 U/L (39-117); Anion Gap 17 (12-20); Aspartate Amino Transferase 21 U/L (5-37); Bilirubin Total 0.2 mg/dL (0.0-1.0); Blood Urea Nitrogen 60 mg/dL (9-16); Calcium 6.4 mg/dL (8.4-10.2); Carbon Dioxide 14 mmol/L (22-29); Chloride 105 mmol/L (96-108); Glucose Fasting 133 mg/dL (60-99); Potassium 5.1 mmol/L (3.3-5.1); Sodium 131 mmol/L (135-145); Total Protein 5.2 g/dL (6.5-8.0)
[2021-06-04 06:04] LABS: Creatinine Clr Calc Pharmacy 11.1; Estimated Glomerular Filt Rate 11
[2021-06-04 07:19] VITALS: BP 113/65; PULSE 77; RESP 16; TEMP 36.8; O2SAT 98
[2021-06-04] MEDS: Sodium Bicarbonate 650 MG TABLET PO ×3 (07:19→21:06)
[2021-06-04] MEDS: 0.9 % Sodium Chloride Flush 3 ML SYRINGE IVFLUSH ×2 (07:19→18:09)
[2021-06-04] MEDS: Calcium + Vitamin D 250 MG TABLET 500 MG PO ×2 (07:19→17:54)
[2021-06-04 07:56] LABS: Mean Corpuscular HGB Conc 33.3 g/dl (31.0-36.0); Mean Corpuscular Hemoglobin 28.2 pg (27.0-33.0); Mean Corpuscular Volume 84.6 fL (80.0-98.0); Mean Platelet Volume 10.4 fL (9.4-12.4); Platelet Count 192 X10*3/uL (160-400); Red Blood Count 2.41 X10*6/uL (4.60-5.80)
[2021-06-04 08:01] LABS: Hemoglobin 6.8 g/dl (14.0-18.0)
[2021-06-04 08:02] LABS: Hematocrit 20.4 % (42.0-52.0)
[2021-06-04 08:15] LABS: Band Neutrophils Percent 4 % (3-5); Basophils Abs Manual 0.3 X10*3/uL (0.0-0.2); Basophils Percent Manual 2 % (0-2); Eosinophils Absolute Manual 0.2 X10*3/uL (0.0-0.4); Eosinophils Percent Manual 1 % (0-4); Lymphocytes Absolute Manual 0.8 X10*3/uL (1.2-4.9); Lymphocytes Percent Manual 5 % (20-40); Metamyelocytes Absolute 0.3 X10*3/uL; Metamyelocytes Percent 2 %; Monocytes Absolute Manual 0.3 X10*3/uL (0.1-1.2); Monocytes Percent Manual 2 % (2-11); Neutrophils Absolute Manual 13.2 X10*3/uL (2.0-8.3); Neutrophils Percent Manual 84 % (45-73)
[2021-06-04 08:16] LABS: Acanthocytes 1+ (0-2) /OIF; RBC Morphology NOTED
[2021-06-04 08:17] LABS: Burr Cells 2+ (3-5) /OIF; Hypochromasia 1+ (5-14) /OIF; Ovalocytes 1+ (5-14) /OIF; Platelet Estimate NORMAL (NORMAL); Platelet Morphology Comment NORMAL
--- NOTE | 2021-06-04 09:59 | PM.PNNEP ---
Subjective Subjective Date of Service: 06/04/21 Interval history: Seen on HD. Tolerating HD well. Bicarbonate increased in dialysate. Due prostate biopsy today Physical Exam Vital Signs: Vital Signs: Last Vital Signs Temp 98.2 F 06/04/21 07:19 Pulse 77 06/04/21 07:19 Resp 16 06/04/21 07:19 BP 113/65 06/04/21 07:19 Pulse Ox 98 06/04/21 07:19 Body Mass Index 23.8 Const: General: comfortable Orientation/consciousness: patient oriented x3 Eyes: EOM: EOMs intact bilaterally Neck: Neck: Yes other (RIJ temporary HD catheter +) Resp: Auscultation: diminished lung sounds Cardio: Jugular venous distension: no JVD GI: Palpation (GI): Soft to palpation Neuro: General: patient oriented x3 and moves all extremities Objective Data Labs CBC & Chem 7: 06/04/21 07:09 06/04/21 05:13 Labs: Laboratory Results - last 24 hr 06/04/21 06/04/21 05:13 07:09 WBC 15.0 H RBC 2.41 L Hgb 6.8 L* Hct 20.4 L* MCV 84.6 MCH 28.2 MCHC 33.3 RDW 15.0 Plt Count 192 D MPV 10.4 Immature Gran % (Auto) Cancelled Neut % (Auto) Cancelled Lymph % (Auto) Cancelled [place] % (Auto) Cancelled Eos % (Auto) Cancelled Baso % (Auto) Cancelled Lymph # (Auto) Cancelled Bond # (Auto) Cancelled Eos # (Auto) Cancelled Baso # (Auto) Cancelled Abs Immat Gran (auto) Cancelled Absolute Neuts (auto) Cancelled Absolute Nucleated RBC 0.000 Nucleated RBC % (auto) 0.0 Neutrophils % (Manual) 84 H Band Neutrophils % 4 Lymphocytes % (Manual) 5 L Monocytes % (Manual) 2 Eosinophils % (Manual) 1 Basophils % (Manual) 2 Metamyelocytes % 2 Abs Neuts (Manual) 13.2 H Lymphocytes # (Manual) 0.8 L Monocytes # (Manual) 0.3 Eosinophils # (Manual) 0.2 Basophils # (Manual) 0.3 H Metamyelocytes # 0.3 Platelet Estimate NORMAL Plt Morphology Comment NORMAL RBC Morphology NOTED Hypochromasia 1+ (5-14) Ovalocytes 1+ (5-14) [place] Cells 2+ (3-5) Acanthocytes (Spur) 1+ (0-2) Sodium 131 L Potassium 5.1 Chloride 105 Carbon Dioxide 14 L Anion Gap 17 BUN 60 H Creatinine 5.44 H* Estim Creat Clear Calc 11.1 Estimated GFR 11 Fasting Glucose 133 H Calcium 6.4 L Total Bilirubin 0.2 AST 21 ALT 15 Alkaline Phosphatase 174 H Total Protein 5.2 L Albumin 2.5 L Microbiology Microbiology Results: Microbiology 05/28/21 15:46 Urine Other - Nephrostomy Urine Culture - Final Pseudomonas putida Staphylococcus aureus 05/28/21 16:01 Urine Other - Nephrostomy Urine Culture - Final Pseudomonas putida Staphylococcus aureus 05/28/21 16:48 Blood - Venous Blood Culture - Final Staphylococcus aureus 05/28/21 16:48 Blood - Venous Blood Culture - Final Staphylococcus aureus Procedures Date of Service Date of Service: 06/04/21 Assessment & Plan Assessment and plan (1) ESRD (end stage renal disease): Status: Acute Assessment and Plan: Had stage 5 CKD due to chronic obstructive uropathy now ESRD; s/p 3 sessions of HD. Currently on HD Bicarbonate adjusted to 40 in dialysate this AM s/p RIJ temporary dialysis catheter placement on 05/29 commenced on dialysis on 05/29; Next HD tomorrow Urology is following him; For prostate biopsy today Needs permcath when culture negative ? tomorrow AM Shall D/C PO NaHCO3 when acidosis better Can have PRBC 2 units Outpatient HD spot arranged in [facility] MWF 1st shift Tel [phone] Time Spent With Patient Time: Total time spent is greater than 50% in coordination of care (as documented) at patient's floor/unit and/or counseling patient: Progress Note: Quality Stroke Does the patient have a stroke diagnosis?: No
[2021-06-04 11:46] VITALS: BP 105/49; PULSE 77; RESP 16; TEMP 36.8; O2SAT 98
[2021-06-04 11:50] VITALS: BMI 23.8
--- NOTE | 2021-06-04 12:09 | W.PM.OPN ---
Operative Note Operative Note Date of Service: 06/04/21 Narrative: Preoperative diagnosis: Elevated PSA - imaging prostate cancer Postoperative diagnosis: Elevated PSA - imaging prostate cacer Procedure: 1. transrectal ultrasound measurement of prostate 2. transrectal ultrasound-guided pudendal nerve block 3. transrectal ultrasound-guided prostate biopsy 12 core Surgeon: Dr. Trevor Restrepo Anesthetic: Local Indications for procedure: Elevated PSA Prostate Cancer Procedure: After informed consent was verified, the patient was brought into the procedure area and lay left-hand side down on the table. Patient identity confirmed. Perioperative antibiotics confirmed. Gel was placed per rectum Ultrasound probe was placed per rectum The prostate was measured in 3 dimensions Total volume equals 40- gm There were no cystic structures and no calcifications noted and the prostate was homogeneous in nature A ultrasound-guided pudendal nerve block was performed using 10 cc of 1% lidocaine. 8 cc was placed at the base and 2 cc of the apex. A 12 core biopsy was performed with 6 cores each side. Two cores were taken at the apex, mid and base. Cores were spaced between lateral and medial. He tolerated the procedure well. Was able to ambulate to bathroom after 5 minutes. Printed instructions regarding antibiotic use and common side effects such as low-grade temperature and bleeding were given.
[2021-06-04 12:15] VITALS: BP 101/49; PULSE 77; RESP 16; O2SAT 100
[2021-06-04] MEDS: Bicalutamide 50 MG TABLET PO (13:34)
--- NOTE | 2021-06-04 14:35 | P.PNIM_ITS ---
Subjective Subjective Date of Service: 06/04/21 Interval History: No acute issues overnight Review of Systems Denies chest pain -shortness of breath Denies nausea vomiting diarrhea Physical Exam Vital Signs: Vital Signs: Last Vital Signs Temp 98.3 F 06/04/21 11:46 Pulse 77 06/04/21 12:15 Resp 16 06/04/21 12:15 BP 101/49 L 06/04/21 12:15 Pulse Ox 100 06/04/21 12:15 Body Mass Index 23.8 Const: Other: Uncomfortable but no acute distress HENMT: Other: Membranes moist oropharynx clear Neck: Other: Right IJ catheter site clean dry and intact Resp: Other: Clear to auscultation bilaterally no rales rhonchi or wheezes Cardio: Other: No S4; positive S1-S2; no S3 murmurs rubs or gallops GI: Other: Soft nontender nondistended with normoactive bowel sounds. Back/Spine/Pelvis: Other: Right PCN removed; left PCN dressing clean dry and intact draining scant amount of dark yellow urine Neuro: Other: Cranial nerves 2-12 grossly intact as tested. Motor is 5/5 all extremities sensation intact cognition appropriate Extrem: Other: No edema bilaterally Objective Data Active Medications Acetaminophen (Acetaminophen 325 Mg Tablet) 650 mg PO Q6H PRN PRN Reason: Pain, Mild (Pain Scale 1-3) Last Admin: 06/01/21 19:39 Dose: 650 mg Documented by: LESTER Bicalutamide (Bicalutamide 50 Mg Tablet) 50 mg PO DAILY [facility] Last Admin: 06/04/21 13:34 Dose: 50 mg Documented by: CHRISTINA Calcium Carbonate/Cholecalciferol (Calcium + Vitamin D 250 Mg Tablet) 500 mg PO BIDWM [facility] Last Admin: 06/04/21 07:19 Dose: 500 mg Documented by: AMITA Levofloxacin (Levaquin) 250 mg in 50 mls @ 50 mls/hr IV Q24H [facility] Last Infusion: 06/03/21 18:00 Dose: 0 mls/hr Documented by: AMITA Melatonin (Melatonin 3 Mg Tablet) 6 mg PO BEDTIME PRN PRN Reason: Insomnia Last Admin: 06/03/21 20:03 Dose: 6 mg Documented by: TY Ondansetron HCl (Ondansetron Hcl 4 Mg/2 Ml Vial) 4 mg IVPUSH Q8H PRN PRN Reason: Nausea and Vomiting Oxycodone HCl (Oxycodone Hcl Immed Release 5 Mg Tablet) 5 mg PO Q6H PRN PRN Reason: Pain, Moderate (Pain Scale 4-6 Last Admin: 06/03/21 18:31 Dose: 5 mg Documented by: AMITA Pharmacy Consult (Consult Rx Vancomycin Dosing) 1 each MISCELLANE DAILY PRN PRN Reason: Consult order Sodium Bicarbonate (Sodium Bicarbonate 650 Mg Tablet) 650 mg PO TID [facility] Last Admin: 06/04/21 07:19 Dose: 650 mg Documented by: AMITA Sodium Chloride (0.9 % Sodium Chloride Flush 3 Ml Syringe) 3 ml IVFLUSH QSHIFT [facility] Last Admin: 06/04/21 07:19 Dose: 3 ml Documented by: AMITA Labs CBC & Chem 7: 06/04/21 07:09 06/04/21 05:13 Labs: Laboratory Results - last 24 hr 06/04/21 06/04/21 05:13 07:09 MCV 84.6 MCH 28.2 MCHC 33.3 RDW 15.0 Plt Count 192 D MPV 10.4 Immature Gran % (Auto) Cancelled Neut % (Auto) Cancelled Lymph % (Auto) Cancelled [place] % (Auto) Cancelled Eos % (Auto) Cancelled Baso % (Auto) Cancelled Lymph # (Auto) Cancelled [place] # (Auto) Cancelled Eos # (Auto) Cancelled Baso # (Auto) Cancelled Abs Immat Gran (auto) Cancelled Absolute Neuts (auto) Cancelled Absolute Nucleated RBC 0.000 Nucleated RBC % (auto) 0.0 Neutrophils % (Manual) 84 H Band Neutrophils % 4 Lymphocytes % (Manual) 5 L Monocytes % (Manual) 2 Eosinophils % (Manual) 1 Basophils % (Manual) 2 Metamyelocytes % 2 Abs Neuts (Manual) 13.2 H Lymphocytes # (Manual) 0.8 L Monocytes # (Manual) 0.3 Eosinophils # (Manual) 0.2 Basophils # (Manual) 0.3 H Metamyelocytes # 0.3 Platelet Estimate NORMAL Plt Morphology Comment NORMAL RBC Morphology NOTED Hypochromasia 1+ (5-14) Ovalocytes 1+ (5-14) [place] Cells 2+ (3-5) Acanthocytes (Spur) 1+ (0-2) Anion Gap 17 Estim Creat Clear Calc 11.1 Estimated GFR 11 Fasting Glucose 133 H Calcium 6.4 L Total Bilirubin 0.2 AST 21 ALT 15 Alkaline Phosphatase 174 H Total Protein 5.2 L Albumin 2.5 L Microbiology Microbiology Results: Microbiology 06/03/21 14:26 Blood Culture - Preliminary Blood - Venous Prelim: GPC Gram Stain only Assessment and Plan (1) Staphylococcus aureus bacteremia: Status: Acute (2) ESRD (end stage renal disease): Status: Acute Assessment and Plan: 61-year-old male with past medical history significant for hypertension, BPH, er osive gastritis, anemia of chronic disease, chronic kidney disease stage 5; ongoing issues with right IJ access port; able to dialyze. Plan is for PermCath insertion however 1/2 blood cultures drawn 06/03/2021 positive for Gram-positive cocci. Await further/definitive results 1. UTI Continue IV Levaquin after dialysis; urine culture demonstrates Pseudomonas Put[place] and Staph aureus Verified with ID. 2. Bacteremia 1/2 blood cultures positive for Gram-positive cocci. Awake clearance prior to ordering PermCath. Continue antibiotics as ordered 3. CKD 5 Right PCN removed; left PCN draining scant amounts urine. Will re-culture blood to demonstrate clearance; pending negative cultures will order PermCath placement 4.Anemia Secondary to end-stage renal disease. Will type and screen for 2 units to be given tomorrow during dialysis. Discussed with Dr. Razo 5. Prostate cancer Prostate biopsy done today by Dr. Restrepo; high suspicion for prostate cancer Await formal pathology 6. Hyponatremia Stable at 131. Continue to follow daily Full code Lindsay Choi Stroke Does the patient have a stroke diagnosis?: No VTE Prior VTE?: No VTE Risk Level:: Medical - moderate - high VTE Device Contraindication: N/A - Device Ordered VTE Drug Contraindication: Treatment Not Indicated
[2021-06-04] MEDS: Acetaminophen 325 MG TABLET 650 MG PO (14:41)
[2021-06-04] MEDS: oxyCODONE HCl Immed Release 5 MG TABLET PO ×2 (14:42→21:06)
[2021-06-04 15:51] VITALS: BP 130/61; PULSE 76; RESP 15; TEMP 37.2; O2SAT 98
[2021-06-04] MEDS: levoFLOXacin/D5W 250 MG/50 ML PIGGYBACK 50 MG IV (17:57)
[2021-06-04] MEDS: Melatonin 3 MG TABLET 6 MG PO (21:06)
[2021-06-04 23:51] VITALS: BP 104/54; PULSE 73; RESP 16; TEMP 37.5; O2SAT 97
[2021-06-05] MEDS: 0.9 % Sodium Chloride Flush 3 ML SYRINGE IVFLUSH ×3 (01:12→21:53)
[2021-06-05 05:35] LABS: MANUAL DIFF FLAG NO
[2021-06-05 05:39] LABS: Basophils Absolute Auto 0.1 X10*3/uL (0.0-0.2); Basophils Percent Auto 0.4 % (0-2); Eosinophils Absolute Auto 0.1 X10*3/uL (0.0-0.4); Eosinophils Percent Auto 0.9 % (0-4); Imm Gran Abs Auto 0.64 X10*3/uL (0.00-0.03); Imm Gran Pct Auto 4.1 % (0.0-0.4); Lymphocytes Absolute Auto 1.5 X10*3/uL (1.2-4.9); Lymphocytes Percent Auto 9.5 % (20-40); Mean Corpuscular Hemoglobin 27.7 pg (27.0-33.0); Mean Corpuscular Volume 86.6 fL (80.0-98.0); Mean Platelet Volume 10.9 fL (9.4-12.4); Monocytes Absolute Auto 1.2 X10*3/uL (0.1-1.2); Monocytes Percent Auto 7.7 % (2-11); Neutrophils Percent Auto 77.4 % (45-73); Platelet Count 206 X10*3/uL (160-400); Red Blood Count 2.38 X10*6/uL (4.60-5.80); Red Cell Distribution Width 14.9 % (11.0-16.0); White Blood Count 15.4 X10*3/uL (4.8-10.8)
[2021-06-05 06:17] LABS: Alanine Aminotransferase 16 U/L (0-40); Albumin Level 2.6 g/dL (3.5-5.0); Alkaline Phosphatase 184 U/L (39-117); Anion Gap 13 (12-20); Aspartate Amino Transferase 16 U/L (5-37); Bilirubin Total 0.5 mg/dL (0.0-1.0); Blood Urea Nitrogen 45 mg/dL (9-16); Calcium 6.7 mg/dL (8.4-10.2); Carbon Dioxide 20 mmol/L (22-29); Chloride 102 mmol/L (96-108); Glucose Fasting 130 mg/dL (60-99); Potassium 4.4 mmol/L (3.3-5.1); Sodium 131 mmol/L (135-145); Total Protein 5.3 g/dL (6.5-8.0)
[2021-06-05 06:24] LABS: Hematocrit 20.6 % (42.0-52.0); Hemoglobin 6.6 g/dl (14.0-18.0)
[2021-06-05 06:39] LABS: Creatinine Clr Calc Pharmacy 13.3; Estimated Glomerular Filt Rate 13
[2021-06-05 07:59] VITALS: BP 112/75; PULSE 71; RESP 17; TEMP 37.1; O2SAT 98
[2021-06-05] MEDS: oxyCODONE HCl Immed Release 5 MG TABLET PO ×2 (08:07→17:31)
[2021-06-05] MEDS: Calcium + Vitamin D 250 MG TABLET 500 MG PO ×2 (08:07→17:29)
[2021-06-05] MEDS: Bicalutamide 50 MG TABLET PO (08:07)
[2021-06-05] MEDS: Sodium Bicarbonate 650 MG TABLET PO ×2 (08:07→21:52)
[2021-06-05 11:34] VITALS: BP 105/58; PULSE 69; RESP 16; TEMP 36.8
[2021-06-05 12:00] VITALS: BP 148/70; PULSE 64; RESP 16; TEMP 36.4
--- NOTE | 2021-06-05 12:11 | P.PNNP_ITS ---
Subjective Subjective Date of Service: 06/05/21 Interval history: Seen on HD. Events noted. All recent data reviewed. D/W Med Attending/HD RN/Vascular Surgery Physical Exam Vital Signs: Vital Signs: Last Vital Signs Temp 98.2 F 06/05/21 11:34 Pulse 69 06/05/21 11:34 Resp 16 06/05/21 11:34 BP 105/58 L 06/05/21 11:34 Pulse Ox 98 06/05/21 07:59 Body Mass Index 23.8 Const: General: comfortable Orientation/consciousness: patient oriented x3 HENMT: Head: Yes normocephalic Eyes: EOM: EOMs intact bilaterally Neck: Other: Has a RIJ HD catheter in place Resp: Auscultation: diminished lung sounds Cardio: Rate: regular rate Rhythm: regular rhythm GI: Palpation (GI): Soft to palpation Neuro: General: patient oriented x3 and moves all extremities Objective Data Labs CBC & Chem 7: 06/05/21 05:01 06/05/21 05:01 Labs: Laboratory Results - last 24 hr 05/30/21 06/05/21 06/05/21 08:42 05:01 05:01 WBC 15.4 H RBC 2.38 L Hgb 6.6 L* Hct 20.6 L* MCV 86.6 MCH 27.7 MCHC 32.0 RDW 14.9 Plt Count 206 MPV 10.9 Immature Gran % (Auto) 4.1 H Neut % (Auto) 77.4 H Lymph % (Auto) 9.5 L [place] % (Auto) 7.7 Eos % (Auto) 0.9 Baso % (Auto) 0.4 Lymph # (Auto) 1.5 [place] # (Auto) 1.2 Eos # (Auto) 0.1 Baso # (Auto) 0.1 Abs Immat Gran (auto) 0.64 H Absolute Neuts (auto) 12.0 H Absolute Nucleated RBC 0.000 Nucleated RBC % (auto) 0.0 Sodium 131 L Potassium 4.4 Chloride 102 Carbon Dioxide 20 L Anion Gap 13 BUN 45 H Creatinine 4.56 H* Estim Creat Clear Calc 13.3 Estimated GFR 13 Fasting Glucose 130 H Calcium 6.7 L Total Bilirubin 0.5 AST 16 ALT 16 Alkaline Phosphatase 184 H Total Protein 5.3 L Albumin 2.6 L Blood Type Antibody Screen Crossmatch See Detail 06/05/21 05:01 WBC RBC Hgb Hct MCV MCH MCHC RDW Plt Count MPV Immature Gran % (Auto) Neut % (Auto) Lymph % (Auto) [place] % (Auto) Eos % (Auto) Baso % (Auto) Lymph # (Auto) [place] # (Auto) Eos # (Auto) Baso # (Auto) Abs Immat Gran (auto) Absolute Neuts (auto) Absolute Nucleated RBC Nucleated RBC % (auto) Sodium Potassium Chloride Carbon Dioxide Anion Gap BUN Creatinine Estim Creat Clear Calc Estimated GFR Fasting Glucose Calcium Total Bilirubin AST ALT Alkaline Phosphatase Total Protein Albumin Blood Type A Positive Antibody Screen NEGATIVE Crossmatch See Detail Microbiology Microbiology Results: Microbiology 06/03/21 14:26 Blood - Venous Blood Culture - Preliminary Staphylococcus aureus 06/03/21 14:18 Blood - Venous Blood Culture - Preliminary No growth after 24 hours. 05/28/21 15:46 Urine Other - Nephrostomy Urine Culture - Final Pseudomonas putida Staphylococcus aureus 05/28/21 16:01 Urine Other - Nephrostomy Urine Culture - Final Pseudomonas putida Staphylococcus aureus 05/28/21 16:48 Blood - Venous Blood Culture - Final Staphylococcus aureus 05/28/21 16:48 Blood - Venous Blood Culture - Final Staphylococcus aureus Procedures Date of Service Date of Service: 06/05/21 Assessment & Plan Assessment and plan (1) ESRD (end stage renal disease): Status: Acute Assessment and Plan: Had stage 5 CKD due to chronic obstructive uropathy now ESRD; Currently on HD. Hold HD over W/E Next HD Tuesday s/p RIJ temporary dialysis catheter placement on 05/29 commenced on dialysis on 05/29 Urology is following? him; Had prostate biopsy Needs permcath when culture negative ? after weekend If IR doesnt want to do permcath, Vascular will do it ( Bere aware) Getting 2 units of PRBC on HD Outpatient HD spot arranged in [facility] Unit MWF 1st shift Tel [phone] Time Spent With Patient Time: Total time spent is greater than 50% in coordination of care (as roseanna stock) at patient's floor/unit and/or counseling patient: Progress Note: Quality Stroke Does the patient have a stroke diagnosis?: No
[2021-06-05 12:47] VITALS: BP 160/78; PULSE 67; RESP 16; TEMP 36.7
[2021-06-05 13:43] VITALS: BP 128/54; PULSE 72; RESP 16; TEMP 36.7
--- NOTE | 2021-06-05 15:08 | P.PNIM_ITS ---
Subjective Subjective Date of Service: 06/05/21 Interval History: Doing well overall. States appetite fair pain control good with oxycodone. No acute issues after prostate biopsy yesterday Review of Systems Denies chest pain Denies shortness of breath Denies nausea vomiting diarrhea Physical Exam Vital Signs: Vital Signs: Last Vital Signs Temp 98.0 F 06/05/21 13:43 Pulse 72 06/05/21 13:43 Resp 16 06/05/21 13:43 BP 128/54 L 06/05/21 13:43 Pulse Ox 98 06/05/21 07:59 Body Mass Index 23.8 Const: Other: Uncomfortable but no acute distress HENMT: Other: Membranes moist oropharynx clear Neck: Other: Right IJ catheter site clean dry and intact Resp: Other: Clear to auscultation bilaterally no rales rhonchi or wheezes Cardio: Other: No S4; positive S1-S2; no S3 murmurs rubs or gallops GI: Other: Soft nontender nondistended with normoactive bowel sounds. Back/Spine/Pelvis: Other: Right PCN removed; will left PCN dressing with whitish yellow thick fluid around site. Site itself with mild erythema Neuro: Other: Cranial nerves 2-12 grossly intact as tested. Motor is 5/5 all extremities sensation intact cognition appropriate Extrem: Other: No edema bilaterally Objective Data Active Medications Acetaminophen (Acetaminophen 325 Mg Tablet) 650 mg PO Q6H PRN PRN Reason: Pain, Mild (Pain Scale 1-3) Last Admin: 06/04/21 14:41 Dose: 650 mg Documented by: CHRISTINA Bicalutamide (Bicalutamide 50 Mg Tablet) 50 mg PO DAILY [facility] Last Admin: 06/05/21 08:07 Dose: 50 mg Documented by: STACI Calcium Carbonate/Cholecalciferol (Calcium + Vitamin D 250 Mg Tablet) 500 mg PO BIDWM [facility] Last Admin: 06/05/21 08:07 Dose: 500 mg Documented by: STACI Levofloxacin (Levaquin) 250 mg in 50 mls @ 50 mls/hr IV Q24H [facility] Last Infusion: 06/04/21 18:59 Dose: 0 mls/hr Documented by: DABNarda Melatonin (Melatonin 3 Mg Tablet) 6 mg PO BEDTIME PRN PRN Reason: Insomnia Last Admin: 06/04/21 21:06 Dose: 6 mg Documented by: KATIA Ondansetron HCl (Ondansetron Hcl 4 Mg/2 Ml Vial) 4 mg IVPUSH Q8H PRN PRN Reason: Nausea and Vomiting Oxycodone HCl (Oxycodone Hcl Immed Release 5 Mg Tablet) 5 mg PO Q6H PRN PRN Reason: Pain, Moderate (Pain Scale 4-6 Last Admin: 06/05/21 08:07 Dose: 5 mg Documented by: STACI Sodium Bicarbonate (Sodium Bicarbonate 650 Mg Tablet) 650 mg PO TID [facility] Last Admin: 06/05/21 13:52 Dose: Not Given Documented by: STACI Non-Admin Reason: Given in Dialysis Sodium Chloride (0.9 % Sodium Chloride Flush 3 Ml Syringe) 3 ml IVFLUSH QSHIFT [facility] Last Admin: 06/05/21 08:07 Dose: 3 ml Documented by: STACI Labs CBC & Chem 7: 06/05/21 05:01 06/05/21 05:01 Labs: Laboratory Results - last 24 hr 05/30/21 06/05/21 06/05/21 08:42 05:01 05:01 MCV 86.6 MCH 27.7 MCHC 32.0 RDW 14.9 Plt Count 206 MPV 10.9 Immature Gran % (Auto) 4.1 H Neut % (Auto) 77.4 H Lymph % (Auto) 9.5 L [place] % (Auto) 7.7 Eos % (Auto) 0.9 Baso % (Auto) 0.4 Lymph # (Auto) 1.5 [place] # (Auto) 1.2 Eos # (Auto) 0.1 Baso # (Auto) 0.1 Abs Immat Gran (auto) 0.64 H Absolute Neuts (auto) 12.0 H Absolute Nucleated RBC 0.000 Nucleated RBC % (auto) 0.0 Anion Gap 13 Estim Creat Clear Calc 13.3 Estimated GFR 13 Fasting Glucose 130 H Calcium 6.7 L Total Bilirubin 0.5 AST 16 ALT 16 Alkaline Phosphatase 184 H Total Protein 5.3 L Albumin 2.6 L Blood Type Antibody Screen Crossmatch See Detail 06/05/21 05:01 MCV MCH MCHC RDW Plt Count MPV Immature Gran % (Auto) Neut % (Auto) Lymph % (Auto) [place] % (Auto) Eos % (Auto) Baso % (Auto) Lymph # (Auto) [place] # (Auto) Eos # (Auto) Baso # (Auto) Abs Immat Gran (auto) Absolute Neuts (auto) Absolute Nucleated RBC Nucleated RBC % (auto) Anion Gap Estim Creat Clear Calc Estimated GFR Fasting Glucose Calcium Total Bilirubin AST ALT Alkaline Phosphatase Total Protein Albumin Blood Type A Positive Antibody Screen NEGATIVE Crossmatch See Detail Microbiology Microbiology Results: Microbiology 06/03/21 14:26 Blood Culture - Preliminary Blood - Venous Staphylococcus aureus 06/03/21 14:18 Blood Culture - Preliminary Blood - Venous No growth after 24 hours. Assessment and Plan (1) Staphylococcus aureus bacteremia: Status: Acute (2) ESRD (end stage renal disease): Status: Acute Assessment and Plan: 61-year-old male with past medical history significant for hypertension, BPH, erosive gastritis, anemia of chronic disease, chronic kidney disease stage 5; ongoing issues with right IJ access port; able to dialyze. Plan is for PermCath insertion however 1/2 blood cultures drawn 06/03/2021 positive for Gram-positive cocci. 1. UTI Continue IV Levaquin after dialysis; urine culture demonstrates Pseudomonas Putida and Staph aureus Continue same 2. Bacteremia 1/2 blood cultures positive for Gram-positive cocci. Left percutaneous line site questionable; will discuss with Urology Favor pulling percutaneous drain as persistent white count; possible source 3. CKD 5 Right PCN removed; as above favor removing left 2. Will re-culture blood to demonstrate clearance; will re-culture given 1 of the 2 persistently positive for Gram-positive cocci. If negative over weekend, PermCath by IR. If IR not option, discussed with Dr. Blackburn ( vascular) 4.Anemia Given 2 units on dialysis today Will check levels in the morning treat as indicated 5. Prostate cancer Prostate biopsy done today by Dr. Restrepo; high suspicion for prostate cancer Await formal pathology 6. Hyponatremia Stable at 131. Continue to follow daily Full code Lindsay solano Quality Stroke Does the patient have a stroke diagnosis?: No VTE Prior VTE?: No VTE Risk Level:: Medical - moderate - high VTE Device Contraindication: N/A - Device Ordered VTE Drug Contraindication: Treatment Not Indicated
--- NOTE | 2021-06-05 15:10 | MHC.CLN ---
F/U CONTINUES WITH USUALLY GOOD INTAKE AT MEALS. CONTINUE CURRENT DIET AND SUPPLEMENT: 2 GRAM SODIUM, LOW POTASSIUM, LOW PHOSPHOROUS; ENSURE CLEAR BID.
--- NOTE | 2021-06-05 15:52 | MHC.CM.PN ---
EMR REVIEWED, PER MULTIDISCIPLINARY ROUNDS PT PT LIKELY HAS METASTATIC PROSTATE CA, PT'S BC NEG, NO D/C PLANNED OVER W/E. PER NEPHROLOGY PT HAS BEEN SET UP W/ [facility] FOR HD - FIRST SHIFT AT [facility] IN [place] LOCATION, FACE SHEET, H&P AND HEP PANEL ETC FAXED TO CHARGE NURSE JUANI. FAX: [phone], PHONE: [phone]. CM ATTEMPTED TO MEET W/PT TO DISCUSS D/C PLAN HOWEVER PT REMAINS OFF UNIT AT TIME OF THIS NOTE, CM TO REVISIT AND CONT TO FOLLOW D/C NEEDS.
[2021-06-05 16:57] VITALS: BP 138/60; PULSE 77; RESP 17; TEMP 36.8; O2SAT 97
--- NOTE | 2021-06-05 17:13 | PC.NURSE ---
2nd unit of blood not transfused per dialysis nurse, aware, blood bank aware,relay shop supervisor aware,not given be per Dialysis nurse becuase of pump malfunction and she had thought blood was omly good for 15 minutes after leaving the lab and pt receiving
[2021-06-05] MEDS: levoFLOXacin/D5W 250 MG/50 ML PIGGYBACK 50 MG IV (17:27)
[2021-06-06] VITALS: BP 133/60; PULSE 70; RESP 17; TEMP 36.5; O2SAT 98
[2021-06-06 01:01] LABS: Hematocrit 23.1 % (42.0-52.0); Hemoglobin 7.4 g/dl (14.0-18.0)
--- NOTE | 2021-06-06 02:10 | PC.NURSE ---
Hospitalist contacted at 0022 about outstanding order for unit of uncollected blood. Unclear if units ordered were actually transfused or not from nurses notes, TAR, and manager order. ordered STAT HH which came back at 7.4, 23.1 and subsequently notified me through [employer] to hold the unit.
[2021-06-06 05:42] LABS: MANUAL DIFF FLAG NO
[2021-06-06 05:46] LABS: Basophils Absolute Auto 0.1 X10*3/uL (0.0-0.2); Basophils Percent Auto 0.4 % (0-2); Eosinophils Absolute Auto 0.1 X10*3/uL (0.0-0.4); Eosinophils Percent Auto 0.6 % (0-4); Hematocrit 22.5 % (42.0-52.0); Hemoglobin 7.4 g/dl (14.0-18.0); Imm Gran Abs Auto 0.69 X10*3/uL (0.00-0.03); Imm Gran Pct Auto 4.8 % (0.0-0.4); Lymphocytes Absolute Auto 1.9 X10*3/uL (1.2-4.9); Lymphocytes Percent Auto 13.3 % (20-40); Mean Corpuscular HGB Conc 32.9 g/dl (31.0-36.0); Mean Corpuscular Hemoglobin 28.7 pg (27.0-33.0); Mean Corpuscular Volume 87.2 fL (80.0-98.0); Mean Platelet Volume 11.5 fL (9.4-12.4); Monocytes Absolute Auto 1.2 X10*3/uL (0.1-1.2); Monocytes Percent Auto 8.7 % (2-11); Neutrophils Absolute Auto 10.3 x10*3/uL (2.0-8.3); Neutrophils Percent Auto 72.2 % (45-73); Platelet Count 155 X10*3/uL (160-400); Red Blood Count 2.58 X10*6/uL (4.60-5.80); White Blood Count 14.3 X10*3/uL (4.8-10.8)
[2021-06-06 06:10] LABS: Alanine Aminotransferase 20 U/L (0-40); Albumin Level 2.6 g/dL (3.5-5.0); Alkaline Phosphatase 178 U/L (39-117); Anion Gap 13 (12-20); Aspartate Amino Transferase 20 U/L (5-37); Bilirubin Total 0.6 mg/dL (0.0-1.0); Blood Urea Nitrogen 33 mg/dL (9-16); Carbon Dioxide 18 mmol/L (22-29); Chloride 106 mmol/L (96-108); Estimated Glomerular Filt Rate 18; Glucose Fasting 118 mg/dL (60-99); Potassium 4.7 mmol/L (3.3-5.1); Sodium 132 mmol/L (135-145); Total Protein 5.4 g/dL (6.5-8.0)
[2021-06-06 07:18] VITALS: BP 105/52; PULSE 69; RESP 18; TEMP 36.6; O2SAT 98
[2021-06-06] MEDS: oxyCODONE HCl Immed Release 5 MG TABLET PO ×2 (08:05→15:16)
[2021-06-06] MEDS: Calcium + Vitamin D 250 MG TABLET 500 MG PO ×2 (08:05→17:31)
[2021-06-06] MEDS: Acetaminophen 325 MG TABLET 650 MG PO ×2 (08:05→15:15)
[2021-06-06] MEDS: Sodium Bicarbonate 650 MG TABLET PO ×3 (08:05→22:46)
[2021-06-06] MEDS: Bicalutamide 50 MG TABLET PO (08:06)
[2021-06-06] MEDS: 0.9 % Sodium Chloride Flush 3 ML SYRINGE IVFLUSH ×2 (08:09→15:16)
[2021-06-06 11:26] VITALS: TEMP 35.5
--- NOTE | 2021-06-06 12:49 | P.PNIM_ITS ---
Subjective Subjective Date of Service: 06/06/21 Interval History: Uneventful night. Pain control adequate . No fever chills Review of Systems Denies chest pain Denies shortness of breath Denies nausea vomiting diarrhea Physical Exam Vital Signs: Vital Signs: Last Vital Signs Temp 96 F L 06/06/21 11:26 Pulse 69 06/06/21 07:18 Resp 18 06/06/21 07:18 BP 105/52 L 06/06/21 07:18 Pulse Ox 98 06/06/21 07:18 Body Mass Index 23.8 Const: Other: Uncomfortable but no acute distress HENMT: Other: Membranes moist oropharynx clear Neck: Other: Right IJ catheter site clean dry and intact Resp: Other: Clear to auscultation bilaterally no rales rhonchi or wheezes Cardio: Other: No S4; positive S1-S2; no S3 murmurs rubs or gallops GI: Other: Soft nontender nondistended with normoactive bowel sounds. Back/Spine/Pelvis: Other: Right PCN removed; will left PCN dressing with whitish yellow thick fluid around site. Site itself with mild erythema Neuro: Other: Cranial nerves 2-12 grossly intact as tested. Motor is 5/5 all extremities sensation intact cognition appropriate Extrem: Other: No edema bilaterally Objective Data Active Medications Acetaminophen (Acetaminophen 325 Mg Tablet) 650 mg PO Q6H PRN PRN Reason: Pain, Mild (Pain Scale 1-3) Last Admin: 06/06/21 08:05 Dose: 650 mg Documented by: TRICIA Bicalutamide (Bicalutamide 50 Mg Tablet) 50 mg PO DAILY [facility] Last Admin: 06/06/21 08:06 Dose: 50 mg Documented by: TRICIA Calcium Carbonate/Cholecalciferol (Calcium + Vitamin D 250 Mg Tablet) 500 mg PO BIDWM [facility] Last Admin: 06/06/21 08:05 Dose: 500 mg Documented by: TRICIA Levofloxacin (Levaquin) 250 mg in 50 mls @ 50 mls/hr IV Q24H [facility] Last Infusion: 06/05/21 19:09 Dose: 0 mls/hr Documented by: TOMASZ Melatonin (Melatonin 3 Mg Tablet) 6 mg PO BEDTIME PRN PRN Reason: Insomnia Last Admin: 06/04/21 21:06 Dose: 6 mg Documented by: [email or web address] Ondansetron HCl (Ondansetron Hcl 4 Mg/2 Ml Vial) 4 mg IVPUSH Q8H PRN PRN Reason: Nausea and Vomiting Sodium Bicarbonate (Sodium Bicarbonate 650 Mg Tablet) 650 mg PO TID [facility] Last Admin: 06/06/21 08:05 Dose: 650 mg Documented by: TRICIA Sodium Chloride (0.9 % Sodium Chloride Flush 3 Ml Syringe) 3 ml IVFLUSH QSHIFT [facility] Last Admin: 06/06/21 08:09 Dose: 3 ml Documented by: TRICIA Labs CBC & Chem 7: 06/06/21 05:12 06/06/21 05:12 Labs: Laboratory Results - last 24 hr 05/28/21 05/29/21 05/30/21 15:30 06:28 05:26 WBC 22.4 H 25.3 H 19.2 H MCV MCH MCHC RDW Plt Count MPV Immature Gran % (Auto) Neut % (Auto) Lymph % (Auto) [place] % (Auto) Eos % (Auto) Baso % (Auto) Lymph # (Auto) [place] # (Auto) Eos # (Auto) Baso # (Auto) Abs Immat Gran (auto) Absolute Neuts (auto) Absolute Nucleated RBC Nucleated RBC % (auto) Anion Gap Estim Creat Clear Calc Estimated GFR Fasting Glucose Calcium Total Bilirubin AST ALT Alkaline Phosphatase Total Protein Albumin Blood Type Antibody Screen Crossmatch 05/31/21 06/01/21 06/02/21 05:56 05:35 05:27 WBC 19.5 H 19.1 H 15.7 H MCV MCH MCHC RDW Plt Count MPV Immature Gran % (Auto) Neut % (Auto) Lymph % (Auto) [place] % (Auto) Eos % (Auto) Baso % (Auto) Lymph # (Auto) [place] # (Auto) Eos # (Auto) Baso # (Auto) Abs Immat Gran (auto) Absolute Neuts (auto) Absolute Nucleated RBC Nucleated RBC % (auto) Anion Gap Estim Creat Clear Calc Estimated GFR Fasting Glucose Calcium Total Bilirubin AST ALT Alkaline Phosphatase Total Protein Albumin Blood Type Antibody Screen Crossmatch 06/03/21 06/04/21 06/05/21 05:24 07:09 05:01 WBC 16.1 H 15.0 H 15.4 H MCV MCH MCHC RDW Plt Count MPV Immature Gran % (Auto) Neut % (Auto) Lymph % (Auto) [place] % (Auto) Eos % (Auto) Baso % (Auto) Lymph # (Auto) [place] # (Auto) Eos # (Auto) Baso # (Auto) Abs Immat Gran (auto) Absolute Neuts (auto) Absolute Nucleated RBC Nucleated RBC % (auto) Anion Gap Estim Creat Clear Calc Estimated GFR Fasting Glucose Calcium Total Bilirubin AST ALT Alkaline Phosphatase Total Protein Albumin Blood Type Antibody Screen Crossmatch 06/05/21 06/06/21 06/06/21 05:01 05:12 05:12 WBC 14.3 H MCV 87.2 MCH 28.7 MCHC 32.9 RDW 15.0 Plt Count 155 L MPV 11.5 Immature Gran % (Auto) 4.8 H Neut % (Auto) 72.2 Lymph % (Auto) 13.3 L [place] % (Auto) 8.7 Eos % (Auto) 0.6 Baso % (Auto) 0.4 Lymph # (Auto) 1.9 [place] # (Auto) 1.2 Eos # (Auto) 0.1 Baso # (Auto) 0.1 Abs Immat Gran (auto) 0.69 H Absolute Neuts (auto) 10.3 H Absolute Nucleated RBC 0.000 Nucleated RBC % (auto) 0.0 Anion Gap 13 Estim Creat Clear Calc 17.0 Estimated GFR 18 Fasting Glucose 118 H Calcium 7.0 L Total Bilirubin 0.6 AST 20 ALT 20 Alkaline Phosphatase 178 H Total Protein 5.4 L Albumin 2.6 L Blood Type A Positive Antibody Screen NEGATIVE Crossmatch See Detail Microbiology Microbiology Results: Microbiology 06/03/21 14:26 Blood Culture - Final Blood - Venous Staphylococcus aureus 06/03/21 14:18 Blood Culture - Preliminary Blood - Venous No growth after 48 hours. Assessment and Plan (1) ESRD (end stage renal disease): Status: Acute (2) Staphylococcus aureus bacteremia: Status: Acute (3) Acute anemia: Status: Acute Assessment and Plan: 61-year-old male with past medical history significant for hypertension, BPH, erosive gastritis, anemia of chronic disease, chronic kidney disease stage 5; ongoing issues with right IJ access port; able to dialyze. Plan is for PermCath insertion however 1/ blood cultures drawn 06/03/2021 positive for Gram-positive cocci. 1. UTI Continue IV Levaquin after dialysis; urine culture demonstrates Pseudomonas Putida and Staph aureus Given issues with HD related to catheter, will dose with Levaquin today and then await further HD before treatment. 2. Bacteremia 1/2 blood cultures positive for Gram-positive cocci. (Staph aureus sensitive to Levaquin) Second set of blood cultures pending; left PND with mucus-like drainage and minimal surrounding erythema Discussed with Urology and Nephrology. Left PND could be source of ongoing bacteremia. Will pull left tube today and follow up cultures. Discussed at length with patient the possible need for bladder decompression with Zheng; at this time patient does not wish a Zheng however is agreeable to pulling PND. If issues arise, patient favors ring insertion of PND by Interventional Radiology. 3. CKD 5 Right PND removed; left PND to be removed today Repeat blood cultures drawn on 06/05; results remain negative thus far If negative over weekend, PermCath by IR. If IR not option, discussed with Dr. Blackburn ( vascular) 4.Anemia Given a total of 2 units 1 of 1 on dialysis owing to variability of right IJ catheter. Hemoglobin remains stable. Will check in a.m. remains asymptomatic 5. Prostate cancer Prostate biopsy done today by Dr. Restrepo; high suspicion for prostate cancer Await formal pathology 6. Hyponatremia Stable at 132. Continue to follow daily Full code Lindsay Choi Stroke Does the patient have a stroke diagnosis?: No VTE Prior VTE?: No VTE Risk Level:: Medical - moderate - high VTE Device Contraindication: N/A - Device Ordered VTE Drug Contraindication: Treatment Not Indicated
--- NOTE | 2021-06-06 14:04 | PM.PNNEP ---
Subjective Subjective Date of Service: 06/06/21 Interval history: Events noted. All recent data reviewed. D/W Med Attending Physical Exam Vital Signs: Vital Signs: Last Vital Signs Temp 96 F L 06/06/21 11:26 Pulse 69 06/06/21 07:18 Resp 18 06/06/21 07:18 BP 105/52 L 06/06/21 07:18 Pulse Ox 98 06/06/21 07:18 Body Mass Index 23.8 Const: General: no acute distress Orientation/consciousness: patient oriented x3 HENMT: Head: Yes atraumatic Eyes: EOM: EOMs intact bilaterally Neck: Other: RIJ temp HD catheter + Resp: Auscultation: diminished lung sounds Cardio: Rate: regular rate GI: Palpation (GI): Soft to palpation Neuro: General: patient oriented x3 and moves all extremities Objective Data Labs CBC & Chem 7: 06/06/21 05:12 06/06/21 05:12 Labs: Laboratory Results - last 24 hr 06/05/21 06/06/21 06/06/21 05:01 00:40 05:12 WBC 14.3 H RBC 2.58 L Hgb 7.4 L 7.4 L Hct 23.1 L 22.5 L MCV 87.2 MCH 28.7 MCHC 32.9 RDW 15.0 Plt Count 155 L MPV 11.5 Immature Gran % (Auto) 4.8 H Neut % (Auto) 72.2 Lymph % (Auto) 13.3 L [place] % (Auto) 8.7 Eos % (Auto) 0.6 Baso % (Auto) 0.4 Lymph # (Auto) 1.9 [place] # (Auto) 1.2 Eos # (Auto) 0.1 Baso # (Auto) 0.1 Abs Immat Gran (auto) 0.69 H Absolute Neuts (auto) 10.3 H Absolute Nucleated RBC 0.000 Nucleated RBC % (auto) 0.0 Sodium Potassium Chloride Carbon Dioxide Anion Gap BUN Creatinine Estim Creat Clear Calc Estimated GFR Fasting Glucose Calcium Total Bilirubin AST ALT Alkaline Phosphatase Total Protein Albumin Blood Type A Positive Antibody Screen NEGATIVE Crossmatch See Detail 06/06/21 05:12 WBC RBC Hgb Hct MCV MCH MCHC RDW Plt Count MPV Immature Gran % (Auto) Neut % (Auto) Lymph % (Auto) [place] % (Auto) Eos % (Auto) Baso % (Auto) Lymph # (Auto) [place] # (Auto) Eos # (Auto) Baso # (Auto) Abs Immat Gran (auto) Absolute Neuts (auto) Absolute Nucleated RBC Nucleated RBC % (auto) Sodium 132 L Potassium 4.7 Chloride 106 Carbon Dioxide 18 L Anion Gap 13 BUN 33 H Creatinine 3.56 H Estim Creat Clear Calc 17.0 Estimated GFR 18 Fasting Glucose 118 H Calcium 7.0 L Total Bilirubin 0.6 AST 20 ALT 20 Alkaline Phosphatase 178 H Total Protein 5.4 L Albumin 2.6 L Blood Type Antibody Screen Crossmatch Microbiology Microbiology Results: Microbiology 06/03/21 14:26 Blood - Venous Blood Culture - Final Staphylococcus aureus 06/03/21 14:18 Blood - Venous Blood Culture - Preliminary No growth after 48 hours. 05/28/21 15:46 Urine Other - Nephrostomy Urine Culture - Final Pseudomonas putida Staphylococcus aureus 05/28/21 16:01 Urine Other - Nephrostomy Urine Culture - Final Pseudomonas putida Staphylococcus aureus 05/28/21 16:48 Blood - Venous Blood Culture - Final Staphylococcus aureus 05/28/21 16:48 Blood - Venous Blood Culture - Final Staphylococcus aureus Procedures Date of Service Date of Service: 06/06/21 Assessment & Plan Assessment and plan (1) ESRD (end stage renal disease): Status: Acute Assessment and Plan: Had stage 5 CKD due to chronic obstructive uropathy now ESRD; Currently on HD. Hold HD over W/E s/p RIJ temporary dialysis catheter placement on 05/29 commenced on dialysis on 05/29 Urology is following? him; Had prostate biopsy Could pull temp HD line and PCN Needs permcath when culture negative ? after weekend If IR doesnt want to do permcath, Vascular will do it ( Bere aware) Outpatient HD spot arranged in [facility] Unit MWF 1st shift Tel [phone] Time Spent With Patient Time: Total time spent is greater than 50% in coordination of care (as documented) at patient's floor/unit and/or counseling patient: Progress Note: Quality Stroke Does the patient have a stroke diagnosis?: No
[2021-06-06 16:00] VITALS: BP 137/68; PULSE 66; RESP 18; TEMP 36.3; O2SAT 99
[2021-06-06 17:10] VITALS: RESP 18
[2021-06-06] MEDS: Morphine Sulfate 4 MG/ML CARTRIDGE IVPUSH (17:10)
[2021-06-06] MEDS: levoFLOXacin/D5W 250 MG/50 ML PIGGYBACK 50 MG IV (17:31)
[2021-06-07] VITALS: BP 112/55; PULSE 63; RESP 17; TEMP 37.1; O2SAT 99
[2021-06-07] MEDS: 0.9 % Sodium Chloride Flush 3 ML SYRINGE IVFLUSH ×4 (02:53→20:41)
[2021-06-07 05:46] LABS: MANUAL DIFF FLAG NO
[2021-06-07 05:52] LABS: Basophils Absolute Auto 0.1 X10*3/uL (0.0-0.2); Basophils Percent Auto 0.9 % (0-2); Eosinophils Absolute Auto 0.1 X10*3/uL (0.0-0.4); Eosinophils Percent Auto 0.8 % (0-4); Hematocrit 22.4 % (42.0-52.0); Hemoglobin 7.1 g/dl (14.0-18.0); Imm Gran Abs Auto 0.46 X10*3/uL (0.00-0.03); Imm Gran Pct Auto 4.4 % (0.0-0.4); Lymphocytes Absolute Auto 1.5 X10*3/uL (1.2-4.9); Lymphocytes Percent Auto 13.9 % (20-40); Mean Corpuscular HGB Conc 31.7 g/dl (31.0-36.0); Mean Corpuscular Hemoglobin 27.7 pg (27.0-33.0); Mean Corpuscular Volume 87.5 fL (80.0-98.0); Mean Platelet Volume 10.7 fL (9.4-12.4); Monocytes Absolute Auto 0.8 X10*3/uL (0.1-1.2); Monocytes Percent Auto 7.8 % (2-11); Neutrophils Absolute Auto 7.6 x10*3/uL (2.0-8.3); Neutrophils Percent Auto 72.2 % (45-73); Platelet Count 170 X10*3/uL (160-400); Red Blood Count 2.56 X10*6/uL (4.60-5.80); Red Cell Distribution Width 14.6 % (11.0-16.0); White Blood Count 10.5 X10*3/uL (4.8-10.8)
[2021-06-07 07:20] LABS: Alanine Aminotransferase 16 U/L (0-40); Albumin Level 2.6 g/dL (3.5-5.0); Alkaline Phosphatase 173 U/L (39-117); Anion Gap 15 (12-20); Aspartate Amino Transferase 11 U/L (5-37); Bilirubin Total 0.5 mg/dL (0.0-1.0); Blood Urea Nitrogen 54 mg/dL (9-16); Calcium 7.3 mg/dL (8.4-10.2); Carbon Dioxide 18 mmol/L (22-29); Chloride 104 mmol/L (96-108); Glucose Fasting 122 mg/dL (60-99); Sodium 132 mmol/L (135-145); Total Protein 5.5 g/dL (6.5-8.0)
[2021-06-07 07:24] VITALS: BP 129/64; PULSE 75; RESP 20; TEMP 36.2; O2SAT 98
[2021-06-07 08:30] LABS: Creatinine Clr Calc Pharmacy 11.9; Estimated Glomerular Filt Rate 12
[2021-06-07] MEDS: oxyCODONE HCl Immed Release 5 MG TABLET PO ×3 (08:49→20:41)
[2021-06-07] MEDS: Calcium + Vitamin D 250 MG TABLET 500 MG PO ×2 (08:49→17:56)
[2021-06-07] MEDS: Acetaminophen 325 MG TABLET 650 MG PO ×2 (08:50→14:57)
[2021-06-07] MEDS: Bicalutamide 50 MG TABLET PO (08:50)
[2021-06-07] MEDS: Sodium Bicarbonate 650 MG TABLET PO ×3 (08:50→20:41)
--- NOTE | 2021-06-07 09:35 | PC.NURSE ---
Critical Creat 5.[id number] Beckett made aware. no new orders
[2021-06-07 11:27] VITALS: BP 111/55; PULSE 74; RESP 20; TEMP 35.5; O2SAT 99
--- NOTE | 2021-06-07 12:18 | HO.PM.IMPN ---
Subjective Subjective Date of Service: 06/07/21 Interval History: No acute issues overnight; percutaneous nephrostomy tube/temporary HD cannula removed from left flank right IJ respectively. Patient states he is making some urine. Voices no complaints of pain Review of Systems Denies chest pain Denies shortness of breath Denies nausea vomiting diarrhea Physical Exam Vital Signs: Vital Signs: Last Vital Signs Temp 96 F L 06/07/21 11:27 Pulse 74 06/07/21 11:27 Resp 20 06/07/21 11:27 BP 111/55 L 06/07/21 11:27 Pulse Ox 99 06/07/21 11:27 Body Mass Index 23.8 Const: Other: Uncomfortable but no acute distress HENMT: Other: Membranes moist oropharynx clear Neck: Other: Right IJ catheter site clean dry and intact Resp: Other: Clear to auscultation bilaterally no rales rhonchi or wheezes Cardio: Other: No S4; positive S1-S2; no S3 murmurs rubs or gallops GI: Other: Soft nontender nondistended with normoactive bowel sounds. Back/Spine/Pelvis: Other: Right PCN removed; will left PCN dressing with whitish yellow thick fluid around site. Site itself with mild erythema Neuro: Other: Cranial nerves 2-12 grossly intact as tested. Motor is 5/5 all extremities sensation intact cognition appropriate Extrem: Other: No edema bilaterally Objective Data Active Medications Acetaminophen (Acetaminophen 325 Mg Tablet) 650 mg PO Q6H PRN PRN Reason: Pain, Mild (Pain Scale 1-3) Last Admin: 06/07/21 08:50 Dose: 650 mg Documented by: TRICIA Bicalutamide (Bicalutamide 50 Mg Tablet) 50 mg PO DAILY [facility] Last Admin: 06/07/21 08:50 Dose: 50 mg Documented by: TRICIA Calcium Carbonate/Cholecalciferol (Calcium + Vitamin D 250 Mg Tablet) 500 mg PO BIDWM [facility] Last Admin: 06/07/21 08:49 Dose: 500 mg Documented by: TRICIA Levofloxacin (Levaquin) 250 mg in 50 mls @ 50 mls/hr IV Q24H [facility] Last Infusion: 06/06/21 18:31 Dose: 0 mls/hr Documented by: TRICIA Melatonin (Melatonin 3 Mg Tablet) 6 mg PO BEDTIME PRN PRN Reason: Insomnia Last Admin: 06/04/21 21:06 Dose: 6 mg Documented by: KATIA Ondansetron HCl (Ondansetron Hcl 4 Mg/2 Ml Vial) 4 mg IVPUSH Q8H PRN PRN Reason: Nausea and Vomiting Oxycodone HCl (Oxycodone Hcl Immed Release 5 Mg Tablet) 5 mg PO Q4H PRN PRN Reason: Pain, Moderate (Pain Scale 4-6 Last Admin: 06/07/21 08:49 Dose: 5 mg Documented by: TRICIA Sodium Bicarbonate (Sodium Bicarbonate 650 Mg Tablet) 650 mg PO TID [facility] Last Admin: 06/07/21 08:50 Dose: 650 mg Documented by: TRICIA Sodium Chloride (0.9 % Sodium Chloride Flush 3 Ml Syringe) [facility] Last Admin: 06/07/21 08:50 Dose: 3 ml Documented by: TRICIA Labs CBC & Chem 7: 06/07/21 05:24 06/07/21 05:24 Labs: Laboratory Results - last 24 hr 06/07/21 06/07/21 05:24 05:24 MCV 87.5 MCH 27.7 MCHC 31.7 RDW 14.6 Plt Count 170 MPV 10.7 Immature Gran % (Auto) 4.4 H Neut % (Auto) 72.2 Lymph % (Auto) 13.9 L [place] % (Auto) 7.8 Eos % (Auto) 0.8 Baso % (Auto) 0.9 Lymph # (Auto) 1.5 [place] # (Auto) 0.8 Eos # (Auto) 0.1 Baso # (Auto) 0.1 Abs Immat Gran (auto) 0.46 H Absolute Neuts (auto) 7.6 Absolute Nucleated RBC 0.000 Nucleated RBC % (auto) 0.0 Anion Gap 15 Estim Creat Clear Calc 11.9 Estimated GFR 12 Fasting Glucose 122 H Calcium 7.3 L Total Bilirubin 0.5 AST 11 D ALT 16 Alkaline Phosphatase 173 H Total Protein 5.5 L Albumin 2.6 L Microbiology Microbiology Results: Microbiology 06/05/21 15:45 Blood Culture - Preliminary Blood - Venous No growth after 24 hours. 06/05/21 15:46 Blood Culture - Preliminary Blood - Venous No growth after 24 hours. Assessment and Plan (1) Obstructive uropathy: Status: Acute (2) ESRD (end stage renal disease): Status: Acute Assessment and Plan: 61-year-old male with past medical history significant for hypertension, BPH, erosive gastritis, anemia of chronic disease, chronic kidney disease stage 5; ongoing issues with right IJ access port; able to dialyze. Plan is for PermCath insertion; blood cultures 2/2 no growth times 24 hours drawn 1. UTI Resolved. Will continue Levaquin every other day 2. Bacteremia Blood cultures drawn 06/05/2021 demonstrating no growth after 24 hours. Left PCN tube removed as well as right IJ catheter 11 18:00 by me. Consult placed to vascular surgery; hopeful plan both blood cultures remain negative times 48 hours. Willing gauge IR in the a.m. for new dialysis catheter; Dr. Blackburn awareness willing to place catheter if IR hesitant. Dr. Razo has arranged outpatient HD upon discharge; has been following patient 3. CKD 5 Both PCN tube was removed; patient states making some urine. Plan as above; culture negative PermCath tomorrow. 4.Anemia Hemoglobin stable this morning no active bleeding. Reassess CBC in a.m.; decision and transfusion can be made at that time 5. Prostate cancer Prostate biopsy.Await formal pathology 6. Hyponatremia Stable at 132. Continue to follow daily Full code Lindsay Choi Stroke Does the patient have a stroke diagnosis?: No VTE Prior VTE?: No VTE Risk Level:: Medical - moderate - high VTE Device Contraindication: N/A - Device Ordered VTE Drug Contraindication: Treatment Not Indicated
--- NOTE | 2021-06-07 14:15 | P.PNNP_ITS ---
Subjective Subjective Date of Service: 06/07/21 Interval history: Events noted. All recent data reviewed Physical Exam Vital Signs: Vital Signs: Last Vital Signs Temp 96 F L 06/07/21 11:27 Pulse 74 06/07/21 11:27 Resp 20 06/07/21 11:27 BP 111/55 L 06/07/21 11:27 Pulse Ox 99 06/07/21 11:27 Body Mass Index 23.8 Const: General: no acute distress Orientation/consciousness: patient oriented x3 HENMT: Head: Yes atraumatic Eyes: EOM: EOMs intact bilaterally Neck: Neck: Yes supple Resp: Auscultation: diminished lung sounds Cardio: Rate: regular rate GI: Palpation (GI): Soft to palpation Neuro: General: patient oriented x3 and moves all extremities Objective Data Labs CBC & Chem 7: 06/07/21 05:24 06/07/21 05:24 Labs: Laboratory Results - last 24 hr 06/07/21 06/07/21 05:24 05:24 WBC 10.5 RBC 2.56 L Hgb 7.1 L Hct 22.4 L MCV 87.5 MCH 27.7 MCHC 31.7 RDW 14.6 Plt Count 170 MPV 10.7 Immature Gran % (Auto) 4.4 H Neut % (Auto) 72.2 Lymph % (Auto) 13.9 L [place] % (Auto) 7.8 Eos % (Auto) 0.8 Baso % (Auto) 0.9 Lymph # (Auto) 1.5 [place] # (Auto) 0.8 Eos # (Auto) 0.1 Baso # (Auto) 0.1 Abs Immat Gran (auto) 0.46 H Absolute Neuts (auto) 7.6 Absolute Nucleated RBC 0.000 Nucleated RBC % (auto) 0.0 Sodium 132 L Potassium 5.0 Chloride 104 Carbon Dioxide 18 L Anion Gap 15 BUN 54 H D Creatinine 5.08 H* Estim Creat Clear Calc 11.9 Estimated GFR 12 Fasting Glucose 122 H Calcium 7.3 L Total Bilirubin 0.5 AST 11 D ALT 16 Alkaline Phosphatase 173 H Total Protein 5.5 L Albumin 2.6 L Microbiology Microbiology Results: Microbiology 06/05/21 15:45 Blood - Venous Blood Culture - Preliminary No growth after 24 hours. 06/05/21 15:46 Blood - Venous Blood Culture - Preliminary No growth after 24 hours. 06/03/21 14:26 Blood - Venous Blood Culture - Final Staphylococcus aureus 06/03/21 14:18 Blood - Venous Blood Culture - Preliminary No growth after 48 hours. 05/28/21 15:46 Urine Other - Nephrostomy Urine Culture - Final Pseudomonas putida Staphylococcus aureus 05/28/21 16:01 Urine Other - Nephrostomy Urine Culture - Final Pseudomonas putida Staphylococcus aureus 05/28/21 16:48 Blood - Venous Blood Culture - Final Staphylococcus aureus 05/28/21 16:48 Blood - Venous Blood Culture - Final Staphylococcus aureus Procedures Date of Service Date of Service: 06/07/21 Assessment & Plan Assessment and plan (1) ESRD (end stage renal disease): Status: Acute Assessment and Plan: Had stage 5 CKD due to chronic obstructive uropathy now ESRD; Currently on HD. Hold HD over W/E s/p RIJ temporary dialysis catheter placement on 05/29 commenced on dialysis on 05/29 Urology is following? him; Had prostate biopsy Pulled temp HD line and PCN yesterday Needs permcath ? after this weekend If IR doesnt want to do permcath, Vascular will do it ( Bere aware) Outpatient HD spot arranged in [facility] Unit MWF 1st shift Tel [phone] Time Spent With Patient Time: Total time spent is greater than 50% in coordination of care (as documented) at patient's floor/unit and/or counseling patient: Progress Note: Quality Stroke Does the patient have a stroke diagnosis?: No
[2021-06-07 15:57] VITALS: BP 126/60; PULSE 66; RESP 15; TEMP 37.1; O2SAT 98
[2021-06-07] MEDS: levoFLOXacin/D5W 250 MG/50 ML PIGGYBACK 50 MG IV (17:56)
[2021-06-07 18:50] VITALS: BP 124/62; PULSE 71; RESP 19; TEMP 37.1; O2SAT 100
[2021-06-07] MEDS: Melatonin 3 MG TABLET 6 MG PO (20:43)
[2021-06-08] VITALS: BP 97/58; PULSE 67; RESP 19; TEMP 36.9; O2SAT 98
[2021-06-08 06:15] LABS: MANUAL DIFF FLAG NO
[2021-06-08 06:45] LABS: Basophils Absolute Auto 0.1 X10*3/uL (0.0-0.2); Basophils Percent Auto 0.7 % (0-2); Eosinophils Absolute Auto 0.1 X10*3/uL (0.0-0.4); Eosinophils Percent Auto 0.7 % (0-4); Hematocrit 22.2 % (42.0-52.0); Hemoglobin 7.2 g/dl (14.0-18.0); Imm Gran Abs Auto 0.46 X10*3/uL (0.00-0.03); Imm Gran Pct Auto 4.1 % (0.0-0.4); Lymphocytes Absolute Auto 1.5 X10*3/uL (1.2-4.9); Lymphocytes Percent Auto 13.1 % (20-40); Mean Corpuscular HGB Conc 32.4 g/dl (31.0-36.0); Mean Corpuscular Hemoglobin 28.6 pg (27.0-33.0); Mean Corpuscular Volume 88.1 fL (80.0-98.0); Mean Platelet Volume 10.8 fL (9.4-12.4); Monocytes Percent Auto 8.5 % (2-11); Neutrophils Absolute Auto 8.2 x10*3/uL (2.0-8.3); Neutrophils Percent Auto 72.9 % (45-73); Platelet Count 206 X10*3/uL (160-400); Red Blood Count 2.52 X10*6/uL (4.60-5.80); Red Cell Distribution Width 14.5 % (11.0-16.0); White Blood Count 11.2 X10*3/uL (4.8-10.8)
[2021-06-08 08:00] VITALS: BP 123/59; PULSE 79; RESP 18; TEMP 36.6; O2SAT 95
[2021-06-08 08:27] LABS: Alanine Aminotransferase 14 U/L (0-40); Albumin Level 2.7 g/dL (3.5-5.0); Alkaline Phosphatase 174 U/L (39-117); Anion Gap 15 (12-20); Aspartate Amino Transferase 9 U/L (5-37); Bilirubin Total 0.5 mg/dL (0.0-1.0); Blood Urea Nitrogen 65 mg/dL (9-16); Calcium 7.2 mg/dL (8.4-10.2); Carbon Dioxide 19 mmol/L (22-29); Chloride 103 mmol/L (96-108); Creatinine Clr Calc Pharmacy 9.5; Estimated Glomerular Filt Rate 9; Glucose Fasting 123 mg/dL (60-99); Potassium 5.3 mmol/L (3.3-5.1); Sodium 132 mmol/L (135-145); Total Protein 5.7 g/dL (6.5-8.0)
[2021-06-08] MEDS: Calcium + Vitamin D 250 MG TABLET 500 MG PO ×2 (08:51→18:10)
[2021-06-08] MEDS: Bicalutamide 50 MG TABLET PO (08:51)
[2021-06-08] MEDS: 0.9 % Sodium Chloride Flush 3 ML SYRINGE IVFLUSH ×3 (08:52→20:31)
[2021-06-08] MEDS: Sodium Bicarbonate 650 MG TABLET PO ×3 (08:52→20:30)
[2021-06-08] MEDS: Acetaminophen 325 MG TABLET 650 MG PO ×2 (08:55→18:10)
[2021-06-08] MEDS: oxyCODONE HCl Immed Release 5 MG TABLET PO ×3 (08:56→22:00)
[2021-06-08 09:12] LABS: Immature Retic Fraction 9.2 % (2.3-13.4); Retic HGB Equivalent 30.1 pg (30.0-35.0); Reticulocyte Percent 1.3 % (0.5-1.8); Reticulocytes Absolute 0.034 X10*6/uL (0.026-0.095)
[2021-06-08 09:23] LABS: Iron 37 mcg/dL (45-160); Percent Iron Saturation 24 % (15-50); Total Iron Binding Capacity 152 mcg/dL (228-428); Unsaturated Iron Binding 115 ug/dL
[2021-06-08 09:25] LABS: Lactate Dehydrogenase 104 U/L (118-273)
[2021-06-08 09:44] LABS: Ferritin 1010 ng/mL (20-250)
[2021-06-08 10:33] LABS: Folate 5.3 ng/mL (> or = 4.0); Vitamin B12 607 pg/mL (200-900)
--- NOTE | 2021-06-08 10:52 | P.PNNP_ITS ---
Subjective Subjective Date of Service: 06/08/21 Principal diagnosis: CKD5 Interval history: Events noted. All recent data reviewed Feels OK No nausea/vomiting Minimal urine output Physical Exam Vital Signs: Vital Signs: Last Vital Signs Temp 97.9 F 06/08/21 08:00 Pulse 79 06/08/21 08:00 Resp 18 06/08/21 08:00 BP 123/59 L 06/08/21 08:00 Pulse Ox 95 06/08/21 08:00 Body Mass Index 23.8 Const: General: comfortable and no acute distress Orientation/consciousness: oriented to person, oriented to place, oriented to time and patient oriented x3 HENMT: Head: Yes normocephalic and Yes atraumatic Eyes: EOM: EOMs intact bilaterally Neck: Other: RIJ temp HD catheter + Neck: Yes supple and Yes other (RIJ temporary HD catheter +) Resp: Auscultation: diminished lung sounds Cardio: Jugular venous distension: no JVD Rate: regular rate Rhythm: regular rhythm Heart sounds: S1 normal heart sound present and S2 normal heart sound present GI: Palpation (GI): Soft to palpation and nontender Neuro: General: oriented to person, oriented to place, oriented to time, patient oriented x3 and moves all extremities Extrem: General: No pedal edema Objective Data Labs CBC & Chem 7: 06/08/21 05:57 06/08/21 05:51 Labs: Laboratory Results - last 24 hr 06/08/21 06/08/21 06/08/21 05:51 05:51 05:57 WBC 11.2 H RBC 2.52 L Hgb 7.2 L Hct 22.2 L MCV 88.1 MCH 28.6 MCHC 32.4 RDW 14.5 Plt Count 206 MPV 10.8 Immature Gran % (Auto) 4.1 H Neut % (Auto) 72.9 Lymph % (Auto) 13.1 L [place] % (Auto) 8.5 Eos % (Auto) 0.7 Baso % (Auto) 0.7 Lymph # (Auto) 1.5 [place] # (Auto) 1.0 Eos # (Auto) 0.1 Baso # (Auto) 0.1 Abs Immat Gran (auto) 0.46 H Absolute Neuts (auto) 8.2 Absolute Nucleated RBC 0.000 Nucleated RBC % (auto) 0.0 Absolute Retic 0.034 Percent Retic 1.3 Immature Retic Fraction 9.2 Retic Hgb Equivalent 30.1 Sodium 132 L Potassium 5.3 H Chloride 103 Carbon Dioxide 19 L Anion Gap 15 BUN 65 H Creatinine 6.34 H* Estim Creat Clear Calc 9.5 Estimated GFR 9 Fasting Glucose 123 H Calcium 7.2 L Iron 37 L TIBC 152 L % Saturation 24 Unsat Iron Binding 115 Ferritin 1010 H Total Bilirubin 0.5 AST 9 ALT 14 Alkaline Phosphatase 174 H Lactate Dehydrogenase 104 L Total Protein 5.7 L Albumin 2.7 L Vitamin B12 607 Folate 5.3 Microbiology Microbiology Results: Microbiology 06/05/21 15:45 Blood - Venous Blood Culture - Preliminary No growth after 48 hours. 06/05/21 15:46 Blood - Venous Blood Culture - Preliminary No growth after 48 hours. 06/03/21 14:26 Blood - Venous Blood Culture - Final Staphylococcus aureus 06/03/21 14:18 Blood - Venous Blood Culture - Preliminary No growth after 48 hours. 05/28/21 15:46 Urine Other - Nephrostomy Urine Culture - Final Pseudomonas putida Staphylococcus aureus 05/28/21 16:01 Urine Other - Nephrostomy Urine Culture - Final Pseudomonas putida Staphylococcus aureus 05/28/21 16:48 Blood - Venous Blood Culture - Final Staphylococcus aureus 05/28/21 16:48 Blood - Venous Blood Culture - Final Staphylococcus aureus Procedures Date of Service Date of Service: 06/08/21 Assessment & Plan Assessment and plan (1) ESRD (end stage renal disease): Status: Acute Assessment and Plan: Had stage 5 CKD due to chronic obstructive uropathy now ESRD; Currently on HD. s/p RIJ temporary dialysis catheter placement on 05/29 commenced on dialysis on 05/29 Urology is following? him; Had prostate biopsy Needs permcath Vascular will insert ( ) HD after permcath insertion ordered Lokelma 5 gm PO to correct mild hyperkalemia Outpatient HD spot arranged in [facility] Unit MWF 1st shift Tel [phone] Time Spent With Patient Time: Total time spent is greater than 50% in coordination of care (as documented) at patient's floor/unit and/or counseling patient: Time with patient: 15 - 24 minutes Progress Note: Quality Stroke Does the patient have a stroke diagnosis?: No
--- NOTE | 2021-06-08 12:16 | PC.NURSE ---
will administer Lokelma one time dose after permcath is inserted.Patient is NPO at this time.
--- NOTE | 2021-06-08 13:00 | MHC.CM.PN ---
EMR REVIEWED, PER HOSPITALIST PLAN IS FOR PERMA CATH TODAY AND POSSIBLE D/C Tuesday06/09/21 HOME W/NEW HD AT [facility]. CM WILL CONT TO FOLLOW D/C NEEDS.
--- NOTE | 2021-06-08 13:59 | HO.PM.IMPN ---
Subjective Subjective Date of Service: 06/08/21 Interval History: NPO for Permacath re-placement No fever Back pain that he attributes to the bed Minimal urine output Review of Systems Review of Systems: Yes all other systems are reviewed and are negative Physical Exam Vital Signs: Vital Signs: Last Vital Signs Temp 97.9 F 06/08/21 08:00 Pulse 79 06/08/21 08:00 Resp 18 06/08/21 08:00 BP 123/59 L 06/08/21 08:00 Pulse Ox 95 06/08/21 08:00 Body Mass Index 23.8 Gen: in no acute distress HEENT: sclera anicteric, moist mucus membranes Neck: supple Lungs: clear to auscultation bilaterally Heart: regular rate and rhythm, no murmurs Abd: soft, non-tender, non-distended Ext: no edema Skin: warm/well-perfused Neuro: alert and oriented x3, no focal findings Psych: appropriate affect Objective Data Active Medications Acetaminophen (Acetaminophen 325 Mg Tablet) 650 mg PO Q6H PRN PRN Reason: Pain, Mild (Pain Scale 1-3) Last Admin: 06/08/21 08:55 Dose: 650 mg Documented by: PEDRO PABLO Bicalutamide (Bicalutamide 50 Mg Tablet) 50 mg PO DAILY [facility] Last Admin: 06/08/21 08:51 Dose: 50 mg Documented by: PEDRO PABLO Calcium Carbonate/Cholecalciferol (Calcium + Vitamin D 250 Mg Tablet) 500 mg PO BIDWM [facility] Last Admin: 06/08/21 08:51 Dose: 500 mg Documented by: PEDRO PABLO Levofloxacin (Levaquin) 250 mg in 50 mls @ 50 mls/hr IV Q24H [facility] Last Infusion: 06/07/21 19:15 Dose: 0 mls/hr Documented by: COTEMA Melatonin (Melatonin 3 Mg Tablet) 6 mg PO BEDTIME PRN PRN Reason: Insomnia Last Admin: 06/07/21 20:43 Dose: 6 mg Documented by: ODRISM Ondansetron HCl (Ondansetron Hcl 4 Mg/2 Ml Vial) 4 mg IVPUSH Q8H PRN PRN Reason: Nausea and Vomiting Oxycodone HCl (Oxycodone Hcl Immed Release 5 Mg Tablet) 5 mg PO Q4H PRN PRN Reason: Pain, Moderate (Pain Scale 4-6 Last Admin: 06/08/21 08:56 Dose: 5 mg Documented by: PEDRO PABLO Sodium Bicarbonate (Sodium Bicarbonate 650 Mg Tablet) 650 mg PO TID [facility] Last Admin: 06/08/21 08:52 Dose: 650 mg Documented by: PEDRO PABLO Sodium Chloride (0.9 % Sodium Chloride Flush 3 Ml Syringe) 3 ml IVFLUSH QSHIFT [facility] Last Admin: 06/08/21 08:52 Dose: 3 ml Documented by: PEDRO PABLO Labs CBC & Chem 7: 06/08/21 05:57 06/08/21 05:51 Labs: Laboratory Results - last 24 hr 06/08/21 06/08/21 06/08/21 05:51 05:51 05:57 MCV 88.1 MCH 28.6 MCHC 32.4 RDW 14.5 Plt Count 206 MPV 10.8 Immature Gran % (Auto) 4.1 H Neut % (Auto) 72.9 Lymph % (Auto) 13.[address] [place] % (Auto) 8.5 Eos % (Auto) 0.7 Baso % (Auto) 0.7 Lymph # (Auto) 1.5 [place] # (Auto) 1.0 Eos # (Auto) 0.1 Baso # (Auto) 0.1 Abs Immat Gran (auto) 0.46 H Absolute Neuts (auto) 8.2 Absolute Nucleated RBC 0.000 Nucleated RBC % (auto) 0.0 Absolute Retic 0.034 Percent Retic 1.3 Immature Retic Fraction 9.2 Retic Hgb Equivalent 30.1 Anion Gap 15 Estim Creat Clear Calc 9.5 Estimated GFR 9 Fasting Glucose 123 H Calcium 7.2 L Iron 37 L TIBC 152 L % Saturation 24 Unsat Iron Binding 115 Ferritin 1010 H Total Bilirubin 0.5 AST 9 ALT 14 Alkaline Phosphatase 174 H Lactate Dehydrogenase 104 L Total Protein 5.7 L Albumin 2.7 L Vitamin B12 607 Folate 5.3 Microbiology Microbiology Results: Microbiology 06/05/21 15:45 Blood Culture - Preliminary Blood - Venous No growth after 48 hours. 06/05/21 15:46 Blood Culture - Preliminary Blood - Venous No growth after 48 hours. Assessment and Plan (1) Obstructive uropathy: Status: Acute (2) ESRD (end stage renal disease): Status: Acute Assessment and Plan: hospital d#12 61yo M with HTN, BPH, erosive gastritis, anemia of chronic disease, CKD5 due to obstructive uropathy, bilateral hydronephrosis with PCN tubes in place admitted for pyelonephritis and MEGHAN started HD found to havbe MRSA bacteremia # UTI - d#02/11 of levofloxacin, grew Pseudomonas putida and MSSA. ID following. # MSSA bacteremia - surveillance cultures from 06/05/21 cleared; both PCN and RIJ Permacath removed. d#08/28 of cefazolin; will dose 2g MWF p HD # ESRD, HD-dependent - needs new Permacath- NPO for placement today - outpt HD placement secured # prostate CA, probably metastatic - awaiting formal pathology from biopsy 06/04/21 - continue bicalutamide; Urology following # anemia of CKD - monitor Hb; ?epo- to discuss with Nephrology # metabolic acidosis - continue bicarbonate supplementation # hyperK - mild, 1 dose Lokelma, recheck in am # hypoNa - stable, monitor # VTE ppx - SCDs Quality Stroke Does the patient have a stroke diagnosis?: No VTE Prior VTE?: No VTE Risk Level:: Medical - moderate - high VTE Device Contraindication: N/A - Device Ordered VTE Drug Contraindication: Treatment Not Indicated
--- NOTE | 2021-06-08 14:25 | MHC.CLN ---
F/U CONTINUES WITH INTAKE AT MEALS USUALLY 100%. DIET=2 GRAM SODIUM, LOW POTASSIUM, LOW PHOSPHOROUS. SUPPLEMENT ENSURE CLEAR BID (480 KCAL, 16 G PROTEIN). PROSTATE CANCER SUSPECTED. CONTINUE TO FOLLOW.
[2021-06-08 17:14] VITALS: BP 115/65; PULSE 65; RESP 18; TEMP 37.1; O2SAT 96
[2021-06-08 17:29] VITALS: BP 110/55; PULSE 73; RESP 18; O2SAT 97
[2021-06-08] MEDS: Sodium Zirconium Cyclosilicate 5 GM POWD.PACK PO (18:10)
[2021-06-08] MEDS: ceFAZolin Sodium/Dextrose,Iso 2 GM/50 ML PIGGYBACK IV (18:12)
[2021-06-08] MEDS: levoFLOXacin/D5W 250 MG/50 ML PIGGYBACK 50 MG IV (19:06)
[2021-06-08] MEDS: Melatonin 3 MG TABLET 6 MG PO (20:30)
[2021-06-09] VITALS: BP 117/71; PULSE 61; RESP 18; TEMP 36.6; O2SAT 98
[2021-06-09 05:48] LABS: MANUAL DIFF FLAG NO
[2021-06-09 06:05] LABS: Basophils Absolute Auto 0.1 X10*3/uL (0.0-0.2); Basophils Percent Auto 0.9 % (0-2); Eosinophils Absolute Auto 0.1 X10*3/uL (0.0-0.4); Eosinophils Percent Auto 0.9 % (0-4); Hematocrit 22.2 % (42.0-52.0); Hemoglobin 7.1 g/dl (14.0-18.0); Imm Gran Abs Auto 0.37 X10*3/uL (0.00-0.03); Imm Gran Pct Auto 3.9 % (0.0-0.4); Lymphocytes Absolute Auto 1.1 X10*3/uL (1.2-4.9); Lymphocytes Percent Auto 11.1 % (20-40); Mean Corpuscular Hemoglobin 28.1 pg (27.0-33.0); Mean Corpuscular Volume 87.7 fL (80.0-98.0); Monocytes Absolute Auto 0.7 X10*3/uL (0.1-1.2); Monocytes Percent Auto 7.3 % (2-11); Neutrophils Absolute Auto 7.2 x10*3/uL (2.0-8.3); Neutrophils Percent Auto 75.9 % (45-73); Platelet Count 229 X10*3/uL (160-400); Red Blood Count 2.53 X10*6/uL (4.60-5.80); Red Cell Distribution Width 14.4 % (11.0-16.0); White Blood Count 9.5 X10*3/uL (4.8-10.8)
[2021-06-09] MEDS: Bicalutamide 50 MG TABLET PO (07:41)
[2021-06-09] MEDS: Calcium + Vitamin D 250 MG TABLET 500 MG PO (07:41)
[2021-06-09] MEDS: 0.9 % Sodium Chloride Flush 3 ML SYRINGE IVFLUSH (07:41)
[2021-06-09] MEDS: Sodium Bicarbonate 650 MG TABLET PO ×2 (07:41→14:35)
[2021-06-09 08:00] VITALS: BP 127/60; PULSE 75; RESP 16; TEMP 36.6; O2SAT 93
[2021-06-09 08:36] LABS: Alanine Aminotransferase 9 U/L (0-40); Albumin Level 2.8 g/dL (3.5-5.0); Alkaline Phosphatase 205 U/L (39-117); Anion Gap 15 (12-20); Aspartate Amino Transferase 10 U/L (5-37); Bilirubin Total 0.3 mg/dL (0.0-1.0); Blood Urea Nitrogen 74 mg/dL (9-16); Calcium 7.3 mg/dL (8.4-10.2); Carbon Dioxide 20 mmol/L (22-29); Chloride 102 mmol/L (96-108); Creatinine Clr Calc Pharmacy 7.8; Estimated Glomerular Filt Rate 7; Glucose Fasting 113 mg/dL (60-99); Potassium 5.4 mmol/L (3.3-5.1); Sodium 132 mmol/L (135-145); Total Protein 5.7 g/dL (6.5-8.0)
--- NOTE | 2021-06-09 09:57 | W.PM.DNNEP ---
Subjective Subjective Principal diagnosis: CKD5 This patient was seen during dialysis. Interval history: Events noted NO new issues Physical Exam Vital Signs: Vital Signs: Last Vital Signs Temp 97.9 F 06/09/21 08:00 Pulse 75 06/09/21 08:00 Resp 16 06/09/21 08:00 BP 127/60 06/09/21 08:00 Pulse Ox 93 06/09/21 08:00 Body Mass Index 23.8 Const: General: comfortable and no acute distress Orientation/consciousness: oriented to person, oriented to place, oriented to time and patient oriented x3 HENMT: Head: Yes normocephalic and Yes atraumatic Eyes: EOM: EOMs intact bilaterally Neck: Other: RIJ temp HD catheter + Neck: Yes supple and Yes other (RIJ temporary HD catheter +) Resp: Auscultation: diminished lung sounds Cardio: Jugular venous distension: no JVD Rate: regular rate Rhythm: regular rhythm Heart sounds: S1 normal heart sound present and S2 normal heart sound present GI: Palpation (GI): Soft to palpation and nontender Neuro: General: oriented to person, oriented to place, oriented to time, patient oriented x3 and moves all extremities Extrem: General: No pedal edema Assessment & Plan Assessment and plan (1) ESRD (end stage renal disease): Status: Acute Assessment and Plan: Had stage 5 CKD due to chronic obstructive uropathy now ESRD; Currently on HD. s/p RIJ temporary dialysis catheter placement on 05/29 commenced on dialysis on 05/29 Urology is following? him; Had prostate biopsy s/p permcath insertion 06/08/21 Outpatient HD spot arranged in [facility] Unit MWF 1st shift Tel [phone] Will administer Ancef 2/2/3 post HD until 07/03/21( 28 days) Time Spent With Patient Time: Total time spent is greater than 50% in coordination of care (as documented) at patient's floor/unit and/or counseling patient: Procedures Date of Service Date of Service: 06/08/21
--- NOTE | 2021-06-09 12:55 | W.MHC.F2F ---
Service Date Service Date: 06/09/21 Encounter Date of encounter: 06/09/21 Reasons for Services Reason for correction: central line care, medication management, medication treatment and teach disease management Reason for physical therapy: home safety and mobility, therapeutic exercises, gait/transfer training, assess need for DME, ADL training and energy conservation Overseeing Care: [place] Homebound: Leaving the home is medically contraindicated at this time without the asist of a device and/or another person due th the listed conditions above and below. Reason homebound: immunosuppression / infection risk and weakness related to hospital stay Certification: Based on the above findings, I certify that this patient is confined to the home and needs intermittent correction care, physical therapy and/or speech therapy, or continues to need occupational therapy. The patient is under my care, and I have initiated the establishment of the plan of care. The patient will be followed by a physician who will periodically review the plan of care.
--- NOTE | 2021-06-09 13:55 | MHC.CM.PN ---
Addendum entered by [place]anna Vale, RN 06/09/21 14:12: PER [facility] PT HAS NOT SEEN NEW PCP, CM WILL CONTACT PCP'S OFFICE TO VERIFY APPT AND DETERMINE WHEN HE WILL BE ABLE TO START [facility] SERVICES. Original Note: PT DISCHARGING TODAY HOME W/[facility] FOR [facility] W/SOC ON 06/11/21 AND NEW HD AT [facility] ON [address] IN [place] FIRST SHIFT, PT'S SISTER XAVIER CONTACTED EARLIER IN DAY TO DISCUSS TRANSPORTATION NEEDED FOR AT LEAST FIRST VISIT TO HD AND [facility] WILL ARRANGE TRANSPORT, SISTER REQUESTING TO SPEAK W/HOSPITALIST AND DR BERRY AWARE AND WILL MEET W/SISTER WHEN SHE COMES IN. SISTER WILLTRANSPORT PT HOME.
[2021-06-09] MEDS: oxyCODONE HCl Immed Release 5 MG TABLET PO (14:34)
[2021-06-09] MEDS: Acetaminophen 325 MG TABLET 650 MG PO (14:34)
[2021-06-09] MEDS: Sodium Zirconium Cyclosilicate 10 GM POWD.PACK PO (14:35)
--- NOTE | 2021-06-09 14:51 | PM.HEMONCCN ---
Subjective - Subjective Chief complaint: None reported Patient: new to practice Consult date: 06/09/21 Requesting Physician: Dr. Booker Primary Care Provider: James Park MD HPI - Consult Narrative Reason for consult: Metastatic prostate cancer Narrative: Darwin Stahl is a 61 year old male who has been diagnosed with metastatic prostate cancer in June 2021. He was admitted to the hospital on 05/28/2021 for acute on chronic kidney failure. He has a history of hypertension, BPH, erosive gastritis, anemia of chronic disease, stage 5 chronic kidney disease and a recent admission for bilateral hydronephrosis. He had bilateral ureteral stent placement by Dr. Restrepo on 04/07/2021. Unfortunately he had persistent hydronephrosis therefore he underwent bilateral nephrostomy tube placement on 04/10/2021. End-stage renal disease requiring hemodialysis. He was treated for Pseudomonas putida and MSSA in urine with Levaquin. Blood cultures were positive for MSSA bacteremia. He was treated with cefazolin. Both PCN tubes and right IJ PermCath were removed. Blood cultures from 06/05/2021 cleared and a new right IJ PermCath was placed. He is receiving cefazolin 3 times a week after hemodialysis, he will finish course on 07/03/2021. He had elevated PSA, 23.38 NG/mL and imaging showed sclerotic bony lesions consistent with metastasis. He underwent prostate biopsy on 06/04/2021 which revealed prostatic adenocarcinoma Waldorf score ranging from 7 to 9 involving 90-100% of all 6 cores. He was started on bicalutamide by Dr. Restrepo. Patient understands that he has metastatic prostate cancer. He has been scheduled for outpatient hemodialysis and IV antibiotics. He offers no complaints today. Review of Systems - Neurologic Denies syncope, Reports weakness Oncology Screenings - ECOG Performance Status ECOG Performance Status: [facility] Medical History: Medical History (Last Reviewed 05/29/21 @ 16:41 by Brooke Lopez MD) Enlarged prostate Kidney disease Family history: reviewed and not pertinent Social History: Social History (Last Reviewed 05/29/21 @ 16:41 by Brooke Lopez MD) Living Situation History: Household Members: Other Household Members Other:: sister Housing: House Housing Other:: mobile home Do you presently have visiting nurse or other home services: No Tobacco History: Patient Tobacco Use Status: Former Tobacco user Tobacco use type: Cigarette e-Cigarette/Vaping Use: Former Use Substance Use History: Substance Use Type: Marijuana Occupation Assessmet: service: No Current occupational status: disabled Home Medications and Allergies Current Medications: Current Medications Acetaminophen (Acetaminophen 325 Mg Tablet) 650 mg PO Q6H PRN PRN Reason: Pain, Mild (Pain Scale 1-3) Last Admin: 06/09/21 14:34 Dose: 650 mg Documented by: Bicalutamide (Bicalutamide 50 Mg Tablet) 50 mg PO DAILY [facility] Last Admin: 06/09/21 07:41 Dose: 50 mg Documented by: Calcium Carbonate/Cholecalciferol (Calcium + Vitamin D 250 Mg Tablet) 500 mg PO BIDWM [facility] Last Admin: 06/09/21 07:41 Dose: 500 mg Documented by: Levofloxacin (Levaquin) 250 mg in 50 mls @ 50 mls/hr IV Q24H [facility] Last Infusion: 06/08/21 20:18 Dose: Infused Documented by: Cefazolin Sodium/Dextrose (Ancef) 2 gm in 50 mls @ 100 mls/hr IV MOWEFR@1645 [facility] Last Infusion: 06/08/21 18:46 Dose: Infused Documented by: Melatonin (Melatonin 3 Mg Tablet) 6 mg PO BEDTIME PRN PRN Reason: Insomnia Last Admin: 06/08/21 20:30 Dose: 6 mg Documented by: Ondansetron HCl (Ondansetron Hcl 4 Mg/2 Ml Vial) 4 mg IVPUSH Q8H PRN PRN Reason: Nausea and Vomiting Oxycodone HCl (Oxycodone Hcl Immed Release 5 Mg Tablet) 5 mg PO Q4H PRN PRN Reason: Pain, Moderate (Pain Scale 4-6 Last Admin: 06/09/21 14:34 Dose: 5 mg Documented by: Sodium Bicarbonate (Sodium Bicarbonate 650 Mg Tablet) 650 mg PO TID [facility] Last Admin: 06/09/21 14:35 Dose: 650 mg Documented by: Sodium Chloride (0.9 % Sodium Chloride Flush 3 Ml Syringe) 3 ml IVFLUSH QSHIFT [facility] Last Admin: 06/09/21 07:41 Dose: 3 ml Documented by: Home Medications Medication Instructions Recorded Confirmed Type ajjwiaxw-qyb-tigkn acid 300 1 tab PO DAILY 04/01/21 04/01/21 History mcg-lycopene 600 mcg-lutein 300 mcg tablet (Centrum Silver Men) Allergies Allergy/AdvReac Type Severity Reaction Status Date / Time No Known Allergies Allergy Verified 05/28/21 14:23 [No Known Allergies*] Physical Exam Vital signs: Vital Signs Temp 97.9 F 06/09/21 08:00 Pulse 75 06/09/21 08:00 Resp 16 06/09/21 08:00 BP 127/60 06/09/21 08:00 Pulse Ox 93 06/09/21 08:00 Intake & Output 06/08/21 06/09/21 06/09/21 18:59 06:59 18:59 Intake Total 50 / 420 370 / 420 Output Total 500 / 753 253 / 753 100 / 100 Balance -450 / -333 117 / -333 -100 / -100 Urine Output (Average ml/kg/hr) 0.70 0.36 0.14 Intake: Intake, Oral Amount 320 / 320 Intake, IV Amount 50 / 100 50 / 100 ceFAZolin Sodium/Dextrose,Iso 2 50 / 50 gm In 50 ml @ 100 mls/hr IV MOWEFR@1645 [facility] Rx#:[id number] levoFLOXacin/D5W 250 mg In 50 50 / 50 ml @ 50 mls/hr IV Q24H [facility] Rx#: [id number] Output: Output, Urine Amount 500 / 753 253 / 753 100 / 100 Other: Meal Refused No No NPO Yes No Dinner % Eaten 100% Urine Bathroom Bathroom Bathroom Urine Color Nimmons Tinged Nunu Nimmons Tinged Weight 59.2 kg - Constitutional Present: no acute distress, chronically ill appearing - Routine HEENT Exam Head: Present: normal inspection Eye: Present: EOMI - Routine Neck Exam Present: supple. Absent: lymphadenopathy - Routine Respiratory Exam Present: CTAB - Routine Cardiovascular Exam Cardiovascular: Present: S1, S2 - Routine Abdominal Exam Present: soft, nontender - Routine Extremities Exam Absent: calf tenderness, joint swelling - Routine Skin Exam Present: intact. Absent: cyanosis Hem/Onc Consult Result - Labs CBC & Chem 7: 06/09/21 05:21 06/09/21 05:21 Labs: Short CBC 06/09/21 Range/Units 05:21 WBC 9.5 (4.8-10.8) X10*3/uL Hgb 7.1 L (14.0-18.0) g/dl Hct 22.2 L (42.0-52.0) % Plt Count 229 (160-400) X10*3/uL BMP 06/09/21 05:21 Sodium 132 L Potassium 5.4 H Chloride 102 Carbon Dioxide 20 L BUN 74 H Creatinine 7.73 H* Calcium 7.3 L Liver Function 06/09/21 Range/Units 05:21 Total Bilirubin 0.3 (0.0-1.0) mg/dL AST 10 (5-37) U/L ALT 9 (0-40) U/L Alkaline Phosphatase 205 H (39-117) U/L Albumin 2.8 L (3.5-5.0) g/dL Assessment and Plan Patient Active problem list reviewed?: Yes (1) Prostate cancer Problem details: Metastatic disease on bone scan, biopsy required Status: Acute Assessment and plan: 1. This is a 61-year-old male with end-stage kidney disease who has been diagnosed with metastatic prostate cancer. PSA was elevated at 23 NG/mL. CT abdomen/pelvis performed on 05/28/2021 revealed multiple sclerotic foci throughout osseous structures concerning for metastasis. Bilateral percutaneous nephrostomy tubes and bilateral ureteral stents in appropriate positions. No hydronephrosis or hydroureter. Bone scan performed 04/07/2021 showed moderately increased activity in several ribs, humeri and vertebrae suspicious for metastatic disease. He has acute on chronic kidney disease. He has been started on hemodialysis. He has to finish course of IV antibiotics for MSSA bacteremia. He has been started on bicalutamide by Dr. Restrepo. He is a good candidate for hormonal therapy for hormone sensitive metastatic prostate cancer. He will be started on LHRH agonist as outpatient. He will be switched to abiraterone with prednisone in a few weeks after discontinuing bicalutamide. I have discussed all the above with the patient. I will be happy to see him upon discharge. I thank you very much for this consultation. - Time Spent With Patient Time Spent with Patient (in minutes): 20
--- NOTE | 2021-06-09 14:59 | PM.DS ---
DS: Providers Provider Date of Service: 06/09/21 Date of admission: 05/28/21 18:17 Primary care physician: James Park MD Consults: 05/28/21 18:23 Consult to Nephrology Routine Consulting Provider: Juvenal Cr Reason for consultation: meghan on ckd Has provider been notified: No 05/29/21 11:47 Consult to Infectious Diseases Routine Consulting Provider: Brooke Lopez Reason for consultation: gm pos bacteremia Has provider been notified: No 06/02/21 15:32 Consult to Urology Routine Consulting Provider: Trevor Restrepo Reason for consultation: Query removal of percutaneous nephrostomy tubes Has provider been notified: No 06/05/21 15:03 Consult to Vascular Surgery Routine Consulting Provider: Humberto Blackburn Reason for consultation: Permacath Has provider been notified: Yes 06/09/21 07:44 Consult to Hematology / Oncology [place]ine [place] [facility] [place] Reason for consultation: metastatic prostate CA, biopsy confirmed DS: Diagnosis Discharge Diagnosis (1) ESRD (end stage renal disease): Status: Acute (2) Prostate cancer metastatic to bone: Status: Acute (3) Staphylococcus aureus bacteremia: Status: Acute (4) Obstructive uropathy: Status: Acute (5) Acidosis: Status: Acute (6) Hyperkalemia: Status: Acute (7) Acute pyelonephritis: Status: Acute (8) Anemia in chronic kidney disease: Status: Acute DS: Summary Hospital Course Hospital Course: From admission history and physical by hospitalist Gaye Calles MD, 05/28/21: 61-year-old male with past medical history significant for hypertension, BPH, erosive gastritis, anemia of chronic disease, chronic kidney disease stage 5 recently discharged from [facility] after being evaluated for encephalopathy and worsening creatinine, patient creatinine did not improve significantly due to 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 Restrepo on 04/07/2021 due to persistent hydronephrosis on ultrasound he underwent bilateral nephrostomy tube placement on 04/10/2021, patient is being followed closely by Dr. Restrepo due to elevated PSA and is scheduled to undergo prostate biopsy however patient presented to [facility] today for evaluation of change in his urine from his nephrostomy tubes,normally his urine is clear, over the last 2-3 days he noted cloudy urine and and since this morning noted some blood coming out of right nephrostomy tube, he is also complaining of feeling weak, fatigued and had a decreased appetite, associated with nausea but no vomiting, he denies any fever chills rigors, he denies abdominal pain, denies chest pain, no shortness of breath he does complain of some discomfort at lower back around site of nephrostomy tubes that seems to be chronic In the emergency room Laboratory evaluation revealed an elevated WBC of 22,400, H&H is stable at 7.4/21.5.? Patient's BUN creatinine are elevated at 152 and 11.3, his last creatinine was 8.46 on 04/16 Urinalysis Revealed 3+ blood, 3+ protein, 3+ leukocyte esterase positive nitrates, positive glucose.? Microscopic revealed 150 WBCs, 150 RBCs and 1+ bacteria. Patient will be admitted to medical floor with a diagnosis of acute pyelonephritis. This 61yo M with HTN, BPH, erosive gastritis, anemia of chronic disease, CKD5 due to obstructive uropathy, bilateral hydronephrosis with PCN tubes in place was admitted for pyelonephritis and MEGHAN and was found to have progressed to ESRD requiring hemodialysis. Tunneled hemodialysis catheter was placed and he was started on HD. However, hospitalization was complicated by MRSA bacteremia requiring catheter removal and replacement. By problem: # UTI - Urine grew Pseudomonas putida and MSSA.?He was treated with 8 days of levofloxacin for the former and will complete 6 more days upon discharge for total 14 days. # MSSA bacteremia -?Blood cultures from 05/28 and 06/03 were positive for MSSA. He was treated with cefazolin. Both PCN tubes and the initial RIJ Permacath were removed. Blood cultures from 06/05/21 cleared and a new RIJ Permacath was placed. ID was consulted. He will be treated with a total of 28 days of cefazolin, 2g MWF after HD; end date 07/03/21. # ESRD, HD-dependent # anemia of ESRD - He was started on dialysis and an outpatient placement was secured. He will need NIKKO as outpatient. # hyperkalemia - This was treated with Lokelma and hemodialysis. # metabolic acidosis - He was treated with bicarbonate supplementation and hemodialysis. # prostate CA - PSA was markedly elevated and there was concern for bony sclerotic lesions consistent with metastases. Urology was consulted and he underwent prostate biopsy on 06/04/21, which showed: Part A:? Left base:??Prostatic adenocarcinoma, Middleton score 4+3=7 (grade group 3) involving 90% of the tissue. Part B:? Left mid:??Prostatic adenocarcinoma, Middleton score 4+5=9 (grade group 5) involving 100% of the tissue. Part C:? Left apex:??Prostatic adenocarcinoma, Middleton score 4+4=8 (grade group 4) involving 100% of the tissue. Part D:? Right base:??Prostatic adenocarcinoma, Flor score 4+3=7 (grade group 3) involving 100% of the tissue. Part E:? Right mid:??Prostatic adenocarcinoma, Middleton score 4+5=9 (grade group 5) involving 100% of the tissue. Part F:? Right apex:??Prostatic adenocarcinoma, Middleton score 5+4=9 (grade group 5) involving 100% of the tissue. He is already on bicalutamide. He [place] need [place] [facility] [place] The patient was discharged home with VNA services and will undergo dialysis MWF. He will need to follow up with: - Dr Park, Primary Care, 1 week - Dr Rodarte, Nephrology, 1-2 weeks - Dr Restrepo, Urology, 1-2 weeks - Dr Martinez, Oncology, 1-2 weeks Time Spent with Patient Time attestation: Total time spent providing and/or coordinating discharge services: Discharge coordination time: Greater than 30 minutes Quality: Stroke Does the patient have a stroke diagnosis?: No Physical Exam Vital Signs: Vital Signs: Last Vital Signs Temp 97.9 F 06/09/21 08:00 Pulse 75 06/09/21 08:00 Resp 16 06/09/21 08:00 BP 127/60 06/09/21 08:00 Pulse Ox 93 06/09/21 08:00 Body Mass Index 23.8 Gen: in no acute distress HEENT: sclera anicteric, moist mucus membranes Neck: supple, LIJ Permacath Lungs: clear to auscultation bilaterally Heart: regular rate and rhythm, no murmurs Abd: soft, non-tender, non-distended Ext: no edema Skin: warm/well-perfused Neuro: alert and oriented x3, no focal findings Psych: appropriate affect DS: Data Data Completed and Pending Completed studies during hospitalization [Text1]: Laboratory Results WBC 9.5 X10*3/uL (4.8-10.8) 06/09/21 05:21 RBC 2.53 X10*6/uL (4.60-5.80) L 06/09/21 05:21 Hgb 7.1 g/dl (14.0-18.0) L 06/09/21 05:21 Hct 22.2 % (42.0-52.0) L 06/09/21 05:21 MCV 87.7 fL (80.0-98.0) 06/09/21 05:21 MCH 28.1 pg (27.0-33.0) 06/09/21 05:21 MCHC 32.0 g/dl (31.0-36.0) 06/09/21 05:21 RDW 14.4 % (11.0-16.0) 06/09/21 05:21 Plt Count 229 X10*3/uL (160-400) 06/09/21 05:21 MPV 10.0 fL (9.4-12.4) 06/09/21 05:21 Immature Gran % (Auto) 3.9 % (0.0-0.4) H 06/09/21 05:21 Neut % (Auto) 75.9 % (45-73) H 06/09/21 05:21 Lymph % (Auto) 11.1 % (20-40) L 06/09/21 05:21 [place] % (Auto) 7.3 % (2-11) 06/09/21 05:21 Eos % (Auto) 0.9 % (0-4) 06/09/21 05:21 Baso % (Auto) 0.9 % (0-2) 06/09/21 05:21 Lymph # (Auto) 1.1 X10*3/uL (1.2-4.9) L 06/09/21 05:21 [place] # (Auto) 0.7 X10*3/uL (0.1-1.2) 06/09/21 05:21 Eos # (Auto) 0.1 X10*3/uL (0.0-0.4) 06/09/21 05:21 Baso # (Auto) 0.1 X10*3/uL (0.0-0.2) 06/09/21 05:21 Abs Immat Gran (auto) 0.37 X10*3/uL (0.00-0.03) H 06/09/21 05:21 Absolute Neuts (auto) 7.2 x10*3/uL (2.0-8.3) 06/09/21 05:21 Absolute Nucleated RBC 0.000 X10*3/uL (0.0-0.012) 06/09/21 05:21 Nucleated RBC % (auto) 0.0 /100WBC (0.0-0.2) 06/09/21 05:21 Neutrophils % (Manual) 84 % (45-73) H 06/04/21 07:09 Band Neutrophils % 4 % (3-5) 06/04/21 07:09 Lymphocytes % (Manual) 5 % (20-40) L 06/04/21 07:09 Monocytes % (Manual) 2 % (2-11) 06/04/21 07:09 Eosinophils % (Manual) 1 % (0-4) 06/04/21 07:09 Basophils % (Manual) 2 % (0-2) 06/04/21 07:09 Metamyelocytes % 2 % 06/04/21 07:09 Abs Neuts (Manual) 13.2 X10*3/uL (2.0-8.3) H 06/04/21 07:09 Lymphocytes # (Manual) 0.8 X10*3/uL (1.2-4.9) L 06/04/21 07:09 Monocytes # (Manual) 0.3 X10*3/uL (0.1-1.2) 06/04/21 07:09 Eosinophils # (Manual) 0.2 X10*3/uL (0.0-0.4) 06/04/21 07:09 Basophils # (Manual) 0.3 X10*3/uL (0.0-0.2) H 06/04/21 07:09 Metamyelocytes # 0.3 X10*3/uL 06/04/21 07:09 Platelet Estimate NORMAL (NORMAL) 06/04/21 07:09 Large Platelets PRESENT 06/02/21 05:27 Plt Morphology Comment NORMAL 06/04/21 07:09 RBC Morphology NOTED 06/04/21 07:09 Hypochromasia 1+ (5-14) /OIF 06/04/21 07:09 Microcytosis 1+ (5-14) /OIF 06/02/21 05:27 Tear Drop Cells 1+ (0-2) /OIF 06/02/21 05:27 Ovalocytes 1+ (5-14) /OIF 06/04/21 07:09 Britton Cells 2+ (3-5) /OIF 06/04/21 07:09 Acanthocytes (Spur) 1+ (0-2) /OIF 06/04/21 07:09 Smear Tech's Comments VERIFIED 05/29/21 06:28 Absolute Retic 0.034 X10*6/uL (0.026-0.095) 06/08/21 05:57 Percent Retic 1.3 % (0.5-1.8) 06/08/21 05:57 Immature Retic Fraction 9.2 % (2.3-13.4) 06/08/21 05:57 Retic Hgb Equivalent 30.1 pg (30.0-35.0) 06/08/21 05:57 PT 16.0 SEC (9.9-13.0) H 06/02/21 09:00 INR 1.4 (0.9-1.1) H 06/02/21 09:00 APTT 28.9 SEC (24.1-38.0) 06/02/21 09:00 Sodium 132 mmol/L (135-145) L 06/09/21 05:21 Potassium 5.4 mmol/L (3.3-5.1) H 06/09/21 05:21 Chloride 102 mmol/L (96-108) 06/09/21 05:21 Carbon Dioxide 20 mmol/L (22-29) L 06/09/21 05:21 Anion Gap 15 (12-20) 06/09/21 05:21 BUN 74 mg/dL (9-16) H 06/09/21 05:21 Creatinine 7.73 mg/dL (0.5-1.4) H* 06/09/21 05:21 Estim Creat Clear Calc 7.8 06/09/21 05:21 Estimated GFR 7 06/09/21 05:21 Random Glucose 128 mg/dL (60-115) H 06/01/21 05:35 Fasting Glucose 113 mg/dL (60-99) H 06/09/21 05:21 Estimat Average Glucose 114 mg/dL 05/31/21 05:56 Hemoglobin A1c % 5.6 % 05/31/21 05:56 Calcium 7.3 mg/dL (8.4-10.2) L 06/09/21 05:21 Iron 37 mcg/dL (45-160) L 06/08/21 05:51 TIBC 152 mcg/dL (228-428) L 06/08/21 05:51 % Saturation 24 % (15-50) 06/08/21 05:51 Unsat Iron Binding 115 ug/dL 06/08/21 05:51 Ferritin 1010 ng/mL (20-250) H 06/08/21 05:51 Total Bilirubin 0.3 mg/dL (0.0-1.0) 06/09/21 05:21 AST 10 U/L (5-37) 06/09/21 05:21 ALT 9 U/L (0-40) 06/09/21 05:21 Alkaline Phosphatase 205 U/L (39-117) H 06/09/21 05:21 Lactate Dehydrogenase 104 U/L (118-273) L 06/08/21 05:51 Total Protein 5.7 g/dL (6.5-8.0) L 06/09/21 05:21 Albumin 2.8 g/dL (3.5-5.0) L 06/09/21 05:21 Vitamin B12 607 pg/mL (200-900) 06/08/21 05:51 Folate 5.3 ng/mL (> or = 4.0) 06/08/21 05:51 Urine Color BROWN 05/28/21 15:46 Urine Color YELLOW 05/28/21 15:46 Urine Appearance CLOUDY 05/28/21 15:46 Urine Appearance CLOUDY 05/28/21 15:46 Urine pH 5.0 (5.0-8.0) 05/28/21 15:46 Urine pH 6.0 (5.0-8.0) 05/28/21 15:46 Ur Specific [place] 1.015 (1.005-1.025) 05/28/21 15:46 Ur Specific [place] 1.025 (1.005-1.025) 05/28/21 15:46 Urine Protein 3+ MG/DL (NEG-TRACE) H 05/28/21 15:46 Urine Protein 3+ MG/DL (NEG-TRACE) H 05/28/21 15:46 Urine Glucose (UA) 100 MG/DL (NEG) H 05/28/21 15:46 Urine Glucose (UA) NEG MG/DL (NEG) 05/28/21 15:46 Urine Ketones 5 MG/DL (NEG) 05/28/21 15:46 Urine Ketones NEG MG/DL (NEG) 05/28/21 15:46 Urine Blood 3+ (NEG) H 05/28/21 15:46 Urine Blood 3+ (NEG) H 05/28/21 15:46 Urine Nitrite POS (NEG) H 05/28/21 15:46 Urine Nitrite POS (NEG) H 05/28/21 15:46 Ur Leukocyte Esterase 3+ (NEG) H 05/28/21 15:46 Ur Leukocyte Esterase 3+ (NEG) H 05/28/21 15:46 Urine RBC 15-29 /HPF (0) H 05/28/21 15:46 Urine RBC 76-150 /HPF (0) H 05/28/21 15:46 Urine WBC 76-150 /HPF (0-4) H 05/28/21 15:46 Urine WBC TNTC /HPF (0-4) H 05/28/21 15:46 Ur Squamous Epith Cells NONE /LPF 05/28/21 15:46 Ur Squamous Epith Cells NONE /LPF 05/28/21 15:46 Urine Bacteria 1+ /LPF 05/28/21 15:46 Urine Bacteria 1+ /LPF 05/28/21 15:46 Vancomycin Trough 7.3 mcg/mL (10.0-20.0) L 05/31/21 09:15 Hep Bs Antigen Negative (Negative) 05/29/21 06:00 Hep Bs Antibody NONREACTIVE (Nonreactive) 05/29/21 06:00 Hep B Core Total Ab Nonreactive (Nonreactive) 05/29/21 06:00 Hepatitis C Ab (EIA) Nonreactive (Nonreactive) 05/29/21 06:00 Blood Type A Positive 06/05/21 05:01 Antibody Screen NEGATIVE 06/05/21 05:01 Crossmatch See Detail 06/05/21 05:01 Impressions Abdomen/Pelvis CT 05/28/21 16:44 IMPRESSION: 1. Bilateral percutaneous nephrostomy tubes and bilateral ureteral stents in appropriate position. No hydronephrosis or hydroureter. No associated fluid collection or new/increased inflammatory change. 2. Largely obscured urinary bladder which is partially distended. 3. Redemonstration of osseous sclerotic foci, concerning for metastases which appear similar when compared to the prior examination. 4. Additional chronic findings are unchanged. Insertion Non-Tunneled Catheter 05/29/21 12:24 IMPRESSION: Right internal jugular 12-Wallisian 13 cm in length triple-lumen temporary Mahurkar dialysis catheter placement. Discharge Plan Discharge Patient Disposition: Home Health Service Discharge Diagnosis: ESRD now dependent on dialysis, MSSA bacteremia, UTI Referrals: [facility] [Other] - 1 Day (DIALYSIS WILL START TOMORROW 06/10 AT 5:30AM, ONCE THERE THEY WILL ARRANGE TRANSPORTATION FOR PT. YOU WILL RECEIVE IV ABX TX W/DIALYSIS. DIALYSIS WILL BE TUE AND TUE THIS WEEK, STARTING NEXT WEEK DIALYSIS WILL CONT TUE-TUE-TUE) [facility] [Outside] - 3-5 Days (ALF, PLEASE CALL [phone] IF YOU HAVE NOT HEARD FROM A NURSE BY NOON ON 06/11/21. ) Trevor Restrepo MD [Physician] - 1 Week Meli Martinez MD [Physician] - 1 Week James Park MD [Primary Care Provider] - 3-5 Days (NEW PATIENT APPT TUESDAY 06/12 AT 1:45PM) Juvenal Cr MD [Physician] - 1 Week Discharge Medications: New cefazolin in dextrose (iso-os) 2 gram/50 mL Piggyback 2 g IV MOWEFR@1645 Qty: 10 RF: 0 levofloxacin 250 mg tablet 250 mg PO DAILY Qty: 6 RF: 0 sodium bicarbonate 650 mg Tablet 650 mg PO TID Qty: 90 RF: 0 Continued Centrum Silver Men 300-600-300 mcg Tablet 1 tab PO DAILY RF: 0 bicalutamide 50 mg Tablet 50 mg PO DAILY Qty: 30 RF: 0 calcitriol 0.25 mcg Capsule 1 mcg PO DAILY Qty: 30 RF: 0 cholecalciferol (vitamin D3) 25 mcg (1,000 unit) Tablet 50 mcg PO DAILY Qty: 30 RF: 0 calcium acetate 667 mg tablet 667 mg PO TIDAC Qty: 90 RF: 0 Discontinued ciprofloxacin HCl 500 mg tablet 500 mg PO BID 3 Days Qty: 6 RF: 0 Discharge Orders: Discharge Order (Routine); Ordered 06/09/21 Ordered By: Sorin Booker Diet: other Activity on Discharge: As tolerated Stand Alone Forms: Patient Portal Discharge page Care Plan Goals: avoid complications of ESRD treat UTI treat metastatic prostate cancer Health Concerns: ESRD UTI metastatic prostate cancer Plan of Treatment: hemodialysis MWF cefazolin 2 grams after dialysis MWF until 07/03/21 [total 4 weeks] levofloxacin 250 mg daliy for 6 more days bicalutamide 50 mg daily follow up with: Nephrology, Urology, Oncology, Primary Care Assessment: See Discharge Summary Patient Instructions: Dialysis Diet (DC)
== END 2021-06-09 16:25 | disposition home health service (06) | DRG 722 ==
LOC: HO.ED 18:00 → HO.EDOVER 18:29 → HO.S3 19:34
PROVIDERS: Hospitalist; Internal Medicine; Internal Medicine Nephrology; Radiology Diagnostic Radiology; Urology; Admitting Provider Hospitalist; Emergency Provider Emergency Medicine Emergency Medical Services; PCP Internal Medicine; Visit Provider Family Medicine
PROC: 02HV33Z Insertion of Infusion Device into Superior Vena Cava, Percutaneous Approach (ICD-10-PCS; principal; 2021-05-29 11:00)
PROC: 0VB07ZX Excision of Prostate, Via Natural or Artificial Opening, Diagnostic (ICD-10-PCS; CPT 55700; principal; 2021-06-04 12:00)
PROC: 0JH63XZ Insertion of Tunneled Vascular Access Device into Chest Subcutaneous Tissue and Fascia, Percutaneous Approach (ICD-10-PCS; principal; 2021-06-08 15:00)
DX: C61 Malignant neoplasm of prostate (principal); N18.6 End stage renal disease; N13.6 Pyonephrosis; E87.2 Acidosis; E87.1 Hypo-osmolality and hyponatremia; R78.81 Bacteremia; N25.81 Secondary hyperparathyroidism of renal origin; N17.9 Acute kidney failure, unspecified; C79.51 Secondary malignant neoplasm of bone; D63.1 Anemia in chronic kidney disease; E83.51 Hypocalcemia; R31.0 Gross hematuria; R73.9 Hyperglycemia, unspecified; B95.61 Methicillin susceptible Staphylococcus aureus infection as the cause of diseases classified elsewhere; B96.5 Pseudomonas (aeruginosa) (mallei) (pseudomallei) as the cause of diseases classified elsewhere; N25.0 Renal osteodystrophy; F17.210 Nicotine dependence, cigarettes, uncomplicated; Z71.6 Tobacco abuse counseling; Z99.2 Dependence on renal dialysis; E87.5 Hyperkalemia; Z93.6 Other artificial openings of urinary tract status; Z79.899 Other long term (current) drug therapy
CPT/HCPCS: 36415; 36556; 36558; 74176; 76942; 80048; 80053; 80202; 81001; 81003; 82607; 82728; 82746; 83036; 83540; 83615; 85007; 85014; 85018; 85025; 85027; 85045; 85610; 85730; 86704; 86706; 86803; 86850; 86900; 86901; 86923; 87040; 87077; 87086; 87088; 87186; 87205; 87340; 88305; 90999; 96365; 96375; 99152; 99153; 99285; C1750; C1769; J0690; J0696; J0885; J1956; J2270; J2997; J3370; P9016

== ENCOUNTER → 2021-06-11 09:29 | Outpatient (BNVA) | payer MEDICARE, SELFPAY | PROVIDERS: PCP Internal Medicine; Visit Provider Urology | DX: Z13.89 Encounter for screening for other disorder (principal) | CPT/HCPCS: Q3014 ==

== ENCOUNTER 2021-06-17 13:25 | Outpatient (REF) | payer MEDICARE, MEDICAID, SELFPAY ==
--- NOTE | ~2021-06-17 | IR_ITS ---
PROCEDURE: IR RIGHT REMOVAL AND NEW LEFT INSERTION OF TUNNEL CATHETER CLINICAL INFORMATION: Nonfunctioning right-sided permacath. Removal of right permacath and insertion of new left permacath. COMPARISON: None TECHNIQUE: Following explaining removal of right permacath and insertion of a new left permacath tunnel catheter procedure, benefits and risk, a written consent was obtained. Patient was placed supine on fluoroscopy table and the right insertional site of the tunnel catheter was cleaned and draped in the usual sterile manner. The sutures were removed and the permacath was easily pulled out. Simple absorbable sutures are placed at the right anterior chest wall incision site. Simple dressing applied postprocedure. The left neck and the anterior chest wall was cleaned and draped in the usual sterile manner. Under sterile ultrasound guidance the left jugular vein was punctured with a single wall needle above the left clavicle. After obtaining venous return a thin guidewire was placed in the SVC and needle withdrawn. A 5 Citizen Of [place] sheath was placed over the guidewire and the guidewire and the sheath were anchored to the drape. Approximately one gauze-length away from the left neck incision along the left anterior chest wall 1% lidocaine was injected. A small skin incision was performed. 1% lidocaine with epinephrine was inserted subcutaneously from the left anterior chest wall incision to the left neck incision. A blunt tunneler attached to the permacatheter was then tunneled from left anterior chest wall incision to the left neck incision and the catheter was pulled through the left neck incision. The cuff of the catheter was distal to the anterior chest wall incision in the subcutaneous soft tissues. The existent guidewire was removed, the 5 Citizen [place] dilator was removed and a 0.035 J-wire was introduced through the 5 Citizen [place] sheath into the IVC. The 5 Citizen [place] sheath was removed and the tract was dilated by 9 and 12 Citizen [place] dilators. A 14.5 Citizen [place] dilator sheath was inserted over the guidewire. The guidewire and the dilator were removed. The distal tunnel catheter was then inserted through the 5 Citizen [place] sheath as the peel-away sheath was removed the catheter was held in position. After removing the peel-away sheath the catheter tip was confirmed within the distal SVC under fluoroscopy with a single image obtained. Absorbable sutures were placed along the left anterior neck wall and left anterior chest wall incision. The permacatheter was anchored to the skin with two 3-0 nonabsorbable nylon sutures. Sterile dressing applied postprocedure. Both ports of the catheter were flushed with saline followed by heparin. All elements of maximal sterile barrier technique followed including use of cap, mask, sterile gown, sterile gloves, a sterile full body drape and hand hygiene. Also followed skin preparation with 2% chlorhexidine for cutaneous antisepsis, and sterile ultrasound preparation with sterile gel and probe cover when applicable. Conscious sedation was administered with IV Versed and fentanyl and patient was supervised and observed for 39 minutes during the procedure by the IR nurse and radiologist. . FINDINGS: On preliminary ultrasound imaging there is a widely patent left jugular vein. 14.5 Citizen [place] 28 cm long tunneled catheter was inserted through the left jugular vein. The tip of the catheter lies in distal SVC and is ready for use. IR/IR fluoro guide cv catheter IMPRESSION: Successful removal of right tunneled catheter. Successful ultrasound and fluoroscopy-guided placement of new left tunneled catheter via jugular vein. Fluoroscopy time: 0.7 minutes. Dose area product: 64 cGy-cm2.
[2021-06-17] MEDS: iohexoL 300 MG/ML 50 ML INFUS..BTL PR (14:17)
[2021-06-17] MEDS: Heparin Sodium,Porcine 1,000 UNIT/ML VIAL 3800 UNIT IV (14:18)
== END 2021-06-17 13:26 | disposition home or self-care (01) ==
LOC: HO.RADIR 13:25
PROVIDERS: Visit Provider Internal Medicine Nephrology
DX: Z45.2 Encounter for adjustment and management of vascular access device (principal)
CPT/HCPCS: 36558; 36589; 76937; 77001; Q9967

== ENCOUNTER 2021-06-18 08:56 | Day surgery (SDC) | payer MEDICARE, MEDICAID, SELFPAY ==
--- NOTE | ~2021-06-18 | IR_ITS ---
PROCEDURE: IR RIGHT REMOVAL AND NEW LEFT INSERTION OF TUNNEL CATHETER CLINICAL INFORMATION: Nonfunctioning right-sided permacath. Removal of right permacath and insertion of new left permacath. COMPARISON: None TECHNIQUE: Following explaining removal of right permacath and insertion of a new left permacath tunnel catheter procedure, benefits and risk, a written consent was obtained. Patient was placed supine on fluoroscopy table and the right insertional site of the tunnel catheter was cleaned and draped in the usual sterile manner. The sutures were removed and the permacath was easily pulled out. Simple absorbable sutures are placed at the right anterior chest wall incision site. Simple dressing applied postprocedure. The left neck and the anterior chest wall was cleaned and draped in the usual sterile manner. Under sterile ultrasound guidance the left jugular vein was punctured with a single wall needle above the left clavicle. After obtaining venous return a thin guidewire was placed in the SVC and needle withdrawn. A 5 [place] sheath was placed over the guidewire and the guidewire and the sheath were anchored to the drape. Approximately one gauze-length away from the left neck incision along the left anterior chest wall 1% lidocaine was injected. A small skin incision was performed. 1% lidocaine with epinephrine was inserted subcutaneously from the left anterior chest wall incision to the left neck incision. A blunt tunneler attached to the permacatheter was then tunneled from left anterior chest wall incision to the left neck incision and the catheter was pulled through the left neck incision. The cuff of the catheter was distal to the anterior chest wall incision in the subcutaneous soft tissues. The existent guidewire was removed, the 5 [place] dilator was removed and a 0.035 J-wire was introduced through the 5 [place] sheath into the IVC. The 5 [place] sheath was removed and the tract was dilated by 9 and 12 [place] dilators. A 14.5 [place] dilator sheath was inserted over the guidewire. The guidewire and the dilator were removed. The distal tunnel catheter was then inserted through the 5 [place] sheath as the peel-away sheath was removed the catheter was held in position. After removing the peel-away sheath the catheter tip was confirmed within the distal SVC under fluoroscopy with a single image obtained. Absorbable sutures were placed along the left anterior neck wall and left anterior chest wall incision. The permacatheter was anchored to the skin with two 3-0 nonabsorbable nylon sutures. Sterile dressing applied postprocedure. Both ports of the catheter were flushed with saline followed by heparin. All elements of maximal sterile barrier technique followed including use of cap, mask, sterile gown, sterile gloves, a sterile full body drape and hand hygiene. Also followed skin preparation with 2% chlorhexidine for cutaneous antisepsis, and sterile ultrasound preparation with sterile gel and probe cover when applicable. Conscious sedation was administered with IV Versed and fentanyl and patient was supervised and observed for 39 minutes during the procedure by the IR nurse and radiologist. . FINDINGS: On preliminary ultrasound imaging there is a widely patent left jugular vein. 14.5 [place] 28 cm long tunneled catheter was inserted through the left jugular vein. The tip of the catheter lies in distal SVC and is ready for use. IR/IR cvc insert central tunnel IMPRESSION: Successful removal of right tunneled catheter. Successful ultrasound and fluoroscopy-guided placement of new left tunneled catheter via jugular vein. Fluoroscopy time: 0.7 minutes. Dose area product: 64 cGy-cm2.
--- NOTE | ~2021-06-18 | IR_ITS ---
PROCEDURE: IR RIGHT REMOVAL AND NEW LEFT INSERTION OF TUNNEL CATHETER CLINICAL INFORMATION: Nonfunctioning right-sided permacath. Removal of right permacath and insertion of new left permacath. COMPARISON: None TECHNIQUE: Following explaining removal of right permacath and insertion of a new left permacath tunnel catheter procedure, benefits and risk, a written consent was obtained. Patient was placed supine on fluoroscopy table and the right insertional site of the tunnel catheter was cleaned and draped in the usual sterile manner. The sutures were removed and the permacath was easily pulled out. Simple absorbable sutures are placed at the right anterior chest wall incision site. Simple dressing applied postprocedure. The left neck and the anterior chest wall was cleaned and draped in the usual sterile manner. Under sterile ultrasound guidance the left jugular vein was punctured with a single wall needle above the left clavicle. After obtaining venous return a thin guidewire was placed in the SVC and needle withdrawn. A 5 [place] sheath was placed over the guidewire and the guidewire and the sheath were anchored to the drape. Approximately one gauze-length away from the left neck incision along the left anterior chest wall 1% lidocaine was injected. A small skin incision was performed. 1% lidocaine with epinephrine was inserted subcutaneously from the left anterior chest wall incision to the left neck incision. A blunt tunneler attached to the permacatheter was then tunneled from left anterior chest wall incision to the left neck incision and the catheter was pulled through the left neck incision. The cuff of the catheter was distal to the anterior chest wall incision in the subcutaneous soft tissues. The existent guidewire was removed, the 5 Hungarian dilator was removed and a 0.035 J-wire was introduced through the 5 Hungarian sheath into the IVC. The 5 Hungarian sheath was removed and the tract was dilated by 9 and 12 Hungarian dilators. A 14.5 Hungarian dilator sheath was inserted over the guidewire. The guidewire and the dilator were removed. The distal tunnel catheter was then inserted through the 5 [place] sheath as the peel-away sheath was removed the catheter was held in position. After removing the peel-away sheath the catheter tip was confirmed within the distal SVC under fluoroscopy with a single image obtained. Absorbable sutures were placed along the left anterior neck wall and left anterior chest wall incision. The permacatheter was anchored to the skin with two 3-0 nonabsorbable nylon sutures. Sterile dressing applied postprocedure. Both ports of the catheter were flushed with saline followed by heparin. All elements of maximal sterile barrier technique followed including use of cap, mask, sterile gown, sterile gloves, a sterile full body drape and hand hygiene. Also followed skin preparation with 2% chlorhexidine for cutaneous antisepsis, and sterile ultrasound preparation with sterile gel and probe cover when applicable. Conscious sedation was administered with IV Versed and fentanyl and patient was supervised and observed for 39 minutes during the procedure by the IR nurse and radiologist. . FINDINGS: On preliminary ultrasound imaging there is a widely patent left jugular vein. 14.5 Hungarian 28 cm long tunneled catheter was inserted through the left jugular vein. The tip of the catheter lies in distal SVC and is ready for use. IR/IR us guide venous access IMPRESSION: Successful removal of right tunneled catheter. Successful ultrasound and fluoroscopy-guided placement of new left tunneled catheter via jugular vein. Fluoroscopy time: 0.7 minutes. Dose area product: 64 cGy-cm2.
[2021-06-18 09:20] VITALS: BMI 23.3
[2021-06-18 10:08] LABS: MANUAL DIFF FLAG NO
[2021-06-18 10:13] LABS: Basophils Absolute Auto 0.1 X10*3/uL (0.0-0.2); Basophils Percent Auto 1.3 % (0-2); Eosinophils Absolute Auto 0.2 X10*3/uL (0.0-0.4); Eosinophils Percent Auto 1.7 % (0-4); Hematocrit 23.8 % (42.0-52.0); Hemoglobin 7.2 g/dl (14.0-18.0); Imm Gran Abs Auto 0.19 X10*3/uL (0.00-0.03); Imm Gran Pct Auto 2.1 % (0.0-0.4); Lymphocytes Absolute Auto 1.1 X10*3/uL (1.2-4.9); Lymphocytes Percent Auto 11.7 % (20-40); Mean Corpuscular HGB Conc 30.3 g/dl (31.0-36.0); Mean Corpuscular Hemoglobin 27.7 pg (27.0-33.0); Mean Corpuscular Volume 91.5 fL (80.0-98.0); Mean Platelet Volume 10.3 fL (9.4-12.4); Monocytes Absolute Auto 0.8 X10*3/uL (0.1-1.2); Monocytes Percent Auto 8.9 % (2-11); Neutrophils Absolute Auto 6.7 x10*3/uL (2.0-8.3); Neutrophils Percent Auto 74.3 % (45-73); Platelet Count 302 X10*3/uL (160-400); Red Cell Distribution Width 14.3 % (11.0-16.0)
[2021-06-18 10:26] LABS: Anion Gap 16 (12-20); Blood Urea Nitrogen 31 mg/dL (9-16); Carbon Dioxide 26 mmol/L (22-29); Chloride 102 mmol/L (96-108); Potassium 4.9 mmol/L (3.3-5.1); Sodium 139 mmol/L (135-145)
[2021-06-18 10:27] LABS: Prothrombin Time 11.3 SEC (9.9-13.0)
[2021-06-18 10:29] LABS: Partial Thromboplastin Time 33.3 SEC (24.1-38.0)
[2021-06-18 12:50] VITALS: BP 133/67; PULSE 61; RESP 20; TEMP 37.6; O2SAT 98
[2021-06-18 13:05] VITALS: BP 140/73; PULSE 61; RESP 20; O2SAT 99
[2021-06-18 13:31] VITALS: BP 136/70; PULSE 62; RESP 20; O2SAT 99
[2021-06-18 14:00] VITALS: BP 145/68; PULSE 66; RESP 20; O2SAT 100
[2021-06-18 14:22] VITALS: BP 140/78; PULSE 67; PULSE 76; RESP 20; TEMP 36.8; O2SAT 99
== END 2021-06-18 14:30 | disposition home or self-care (01) ==
PROVIDERS: PCP Internal Medicine; Visit Provider Radiology Diagnostic Radiology
DX: T82.41XA Breakdown (mechanical) of vascular dialysis catheter, initial encounter (principal); C61 Malignant neoplasm of prostate; I12.0 Hypertensive chronic kidney disease with stage 5 chronic kidney disease or end stage renal disease; N18.5 Chronic kidney disease, stage 5; D63.1 Anemia in chronic kidney disease; Z99.2 Dependence on renal dialysis; Z79.899 Other long term (current) drug therapy; F12.90 Cannabis use, unspecified, uncomplicated; Z87.891 Personal history of nicotine dependence; Y83.2 Surgical operation with anastomosis, bypass or graft as the cause of abnormal reaction of the patient, or of later complication, without mention of misadventure at the time of the procedure; Y92.9 Unspecified place or not applicable
CPT/HCPCS: 36415; 36558; 36589; 76937; 80051; 84520; 85025; 85610; 85730; 99152; 99153; C1750; C1769; J0690; J2250; J3010

== ENCOUNTER → 2021-07-09 13:34 | Outpatient (BNVA) | payer MEDICARE, MEDICAID, SELFPAY | PROVIDERS: PCP Internal Medicine; Referring Provider Internal Medicine; Visit Provider Surgery Vascular Surgery | DX: N18.6 End stage renal disease (principal); C61 Malignant neoplasm of prostate; C79.51 Secondary malignant neoplasm of bone | CPT/HCPCS: 99202 ==

== ENCOUNTER 2021-07-23 09:02 | Outpatient (REF) | payer MEDICARE, MEDICAID, SELFPAY ==
--- NOTE | ~2021-07-23 | US_ITS ---
EXAMINATION: US ARTERIAL AND VENOUS WITH DOPPLER UPPER EXTREMITY, BILATERAL CLINICAL INFORMATION: Arterial and venous mapping for AVF creation. COMPARISON: None TECHNIQUE: Ornelas-scale and color Doppler ultrasound techniques were used to evaluate the bilateral upper extremity arteries and veins. FINDINGS: RIGHT UPPER EXTREMITY: Basilic Vein: Diameter: 3-5 mm Depth: 4-8 mm below the skin Cephalic Vein: The cephalic vein measures up to 4 mm at the shoulder and is occluded within the mid and distal upper arm. The cephalic vein measures between 1 and 2 mm from the antecubital fossa to the wrist. Brachial Artery: Diameter: 5-6 mm Waveform: Normal Radial Artery: Diameter: 2-3 mm Waveform: Normal LEFT UPPER EXTREMITY: Basilic Vein: Diameter: 2-5 mm Depth: 3-8 mm below the skin Cephalic Vein: The cephalic vein is diminutive in caliber measuring 1 mm along its entire course from the shoulder to the wrist. Brachial Artery: Diameter: 5-7 mm Waveform: Normal Radial Artery: Diameter: 2-3 mm Waveform: Normal Additional: Adjacent to the right proximal humerus, there is a 3.0 x 1.0 x 2.2 cm fluid collection. A similar-appearing fluid collection is seen on the left adjacent to the left proximal humerus measuring 2.3 x 0.5 x 2.3 cm. US/US venous duplex UE BI IMPRESSION: 1. Patent bilateral basilic veins. 2. The right cephalic vein is occluded in the mid upper arm and is diminutive in caliber from the antecubital fossa to the wrist. 3. The left cephalic vein measures 1 mm in diameter from the shoulder to the wrist. 4. Patent brachial and radial arteries. 5. Small bilateral shoulder effusions.
== END 2021-07-23 09:03 | disposition home or self-care (01) ==
LOC: HO.US 09:02
PROVIDERS: PCP Internal Medicine; Visit Provider Surgery Vascular Surgery
DX: N18.6 End stage renal disease (principal); I82.611 Acute embolism and thrombosis of superficial veins of right upper extremity; M25.412 Effusion, left shoulder; M25.411 Effusion, right shoulder; C61 Malignant neoplasm of prostate
CPT/HCPCS: 93970; 96402; J9217

== ENCOUNTER → 2021-07-28 10:41 | Outpatient (BNVA) | payer MEDICARE, MEDICAID, SELFPAY | PROVIDERS: PCP Internal Medicine; Visit Provider Surgery Vascular Surgery | DX: N18.6 End stage renal disease (principal) | CPT/HCPCS: 99212 ==

== ENCOUNTER 2021-08-03 06:06 | Day surgery (SDC) | payer MEDICARE, MEDICAID, SELFPAY ==
--- NOTE | 2021-07-29 15:05 | HO.ANESPROP2 ---
Documented by User: Yumi Bethea NP 07/29/21 15:06 HPI - Anesthesia Eval Consult details Narrative: 61yo M for Left AV Fistula Creation ESRD with HD on [facility] Active Problems Active Problems: All Active Problems (Updated 07/09/21 @ 13:[address] [facility]) Prostate cancer metastatic to bone (Acute) Prostate cancer (Acute) Staphylococcus aureus bacteremia (Acute) Obstructive uropathy (Acute) ESRD (end stage renal disease) (Acute) Acidosis (Acute) Hyperkalemia (Acute) Acute pyelonephritis (Acute) Hypokalemia (Acute) Anemia in chronic kidney disease (Acute) Past Medical History Medical History Acute anemia Acute kidney injury Anemia Bilateral hydronephrosis Chronic kidney disease CKD (chronic kidney disease) stage 5, GFR less than 15 ml/min Elevated PSA Enlarged prostate Fusion of lumbar spine Hypocalcemia Kidney disease Metabolic acidosis Urinary tract infection Family History Family history of problems with anesthesia: No Surgical History Surgical History History of hip replacement, total History of Problems with Anesthesia: No Social History Social History Household Members: Other Household Members Other:: sister Housing: House Housing Other:: mobile home Do you presently have visiting nurse or other home services: No Patient Tobacco Use Status: Former Tobacco user Quit Date: 2015 Tobacco use type: Cigarette Years Smoked: 30 Smoked in Last 30 Days: No e-Cigarette/Vaping Use: Former Use Use of substances other than those prescribed or required for medical reasons: Yes Substance Use Type: Marijuana Substance Use Frequency: Daily Are you DNR?: No Advance Directives: No Advance Directives Information Provided: Yes service: No Current occupational status: disabled Meds Allergies Allergy/AdvReac Type Severity Reaction Status Date / Time No Known Allergies Allergy Verified 08/03/21 06:17 [No Known Allergies*] Home Medications Medication Instructions Recorded Confirmed Last Taken Type jjitbijc-vxk-fmfts acid 300 1 tab PO DAILY 04/01/21 04/01/21 03/31/21 History mcg-lycopene 600 mcg-lutein 300 mcg tablet (Centrum Silver Men) Exam Exam Date and Time: July 29, 2021 1505 Pertinent Lab Results Pertinent Lab Results: Laboratory Tests 06/18/21 09:50 WBC 9.0 Hgb 7.2 L Hct 23.8 L Plt Count 302 D Narrative Narrative: EKG 04/2021 Vent. Rate : 060 BPM ? ? Atrial Rate : 060 BPM ?? P-R Int : 174 ms? QRS Dur : 094 ms ? ? QT Int : 498 ms ? ? ? P-R-T Axes : 072 010 083 degrees ?? QTc Int : 498 ms ? Normal sinus rhythm Prolonged QT Abnormal ECG When compared with ECG of 15-MAR-2017 11:43, QT has lengthened Assessment and Plan Assessment Anesthesia Assessment: Chart Reviewed Final Anesthetic Review Family History of Problems with Anesthesia: No History of Problems with Anesthesia: No Documented by User: Hamida Young MD 08/03/21 07:34 [facility] Past Medical History Medical History Acute anemia Acute kidney injury Anemia Bilateral hydronephrosis Chronic kidney disease CKD (chronic kidney disease) stage 5, GFR less than 15 ml/min Elevated PSA Enlarged prostate Fusion of lumbar spine Hypocalcemia Kidney disease Metabolic acidosis Urinary tract infection Surgical History Surgical History History of hip replacement, total Social History Social History Household Members: Other Household Members Other:: sister Housing: House Housing Other:: mobile home Do you presently have visiting nurse or other home services: No Patient Tobacco Use Status: Former Tobacco user Quit Date: 2015 Tobacco use type: Cigarette Years Smoked: 30 Smoked in Last 30 Days: No e-Cigarette/Vaping Use: Former Use Use of substances other than those prescribed or required for medical reasons: Yes Substance Use Type: Marijuana Substance Use Frequency: Daily Are you DNR?: No Advance Directives: No Advance Directives Information Provided: Yes service: No Current occupational status: disabled Meds Allergies Allergy/AdvReac Type Severity Reaction Status Date / Time No Known Allergies Allergy Verified 08/03/21 06:17 [No Known Allergies*] Home Medications Medication Instructions Recorded Confirmed Last Taken Type bjvkjqut-mpi-tpajx acid 300 1 tab PO DAILY 04/01/21 04/01/21 03/31/21 History mcg-lycopene 600 mcg-lutein 300 mcg tablet (Centrum Silver Men) Exam Airway Mallampati Class: II TM Dist: >3cm Neck ROM: Full Loose/Missing/Broken Teeth: No Heart: RRR Lungs: CTA Assessment and Plan Assessment Anesthesia Assessment: Anesthesia Plan Discussed Final Anesthetic Review NPO: Yes ASA Class: III Final Preanesthetic Review: Meds/Allgs Chart Reviewed, Consent Obtained/Reviewed and Anes Risks/Benef Reviewed Patient Risk: Intermediate Procedure Risk: Low Anesthetic Plan Anesthetic Plan: GA Disposition: Standard PACU
[2021-08-03] VITALS (13 sets, daily range): BP systolic 129–173; BP diastolic 63–72; PULSE 58–73; RESP 16–18; TEMP 36.3–36.5; O2SAT 92–100; BMI 25.8
[2021-08-03 06:29] LABS: Hemoglobin 8.6 g/dl (14.0-18.0); Mean Corpuscular HGB Conc 31.9 g/dl (31.0-36.0); Mean Corpuscular Hemoglobin 29.5 pg (27.0-33.0); Mean Corpuscular Volume 92.5 fL (80.0-98.0); Mean Platelet Volume 10.4 fL (9.4-12.4); Platelet Count 193 X10*3/uL (160-400); Red Blood Count 2.92 X10*6/uL (4.60-5.80); Red Cell Distribution Width 14.1 % (11.0-16.0); White Blood Count 7.2 X10*3/uL (4.8-10.8)
[2021-08-03 06:39] LABS: INTERNATIONAL NORM RATIO 0.9 (0.9-1.1); Prothrombin Time 10.2 SEC (9.9-13.0)
[2021-08-03 06:42] LABS: Partial Thromboplastin Time 31.3 SEC (24.1-38.0)
[2021-08-03 06:44] LABS: Anion Gap 25 (12-20); Blood Urea Nitrogen 56 mg/dL (9-16); Calcium 7.8 mg/dL (8.4-10.2); Carbon Dioxide 19 mmol/L (22-29); Chloride 103 mmol/L (96-108); Creatinine Clr Calc Pharmacy 7.7; Estimated Glomerular Filt Rate 7; Glucose Random 101 mg/dL (60-115); Potassium 4.8 mmol/L (3.3-5.1); Sodium 142 mmol/L (135-145)
[2021-08-03] MEDS: 0.9 % Sodium Chloride 1,000 ML 50 ML IVCONT (07:11)
--- NOTE | 2021-08-03 10:30 | P.OP_ITS ---
Operative Note Operative Note Date of Service: 08/03/21 Narrative: Operative note by [facility] Preoperative diagnosis:End-stage renal disease Postoperative diagnosis: same Procedure: left basilic vein transposition Surgeon:Humberto Blackburn M.D. Pmo Project Manager: none Anesthesia: general Specimens: none Drains: none Estimated blood loss: minimal Indications: 61-year-old gentleman who has end-stage renal disease currently being dialyzed through a PermCath. He is now for permanent dialysis access. Of note preprocedural vein mapping was performed as an outpatient. The patient has signed the informed consent after reviewing risks, complications, benefits, and alternatives previously discussed with the patient. The patient was given the opportunity to ask any additional questions or voice any concerns. All questions were answered to the patient's satisfaction. Procedure in detail: Patient was brought to the operating room prior to which a time-out was called for patient identification site verification. Left arm was prepped and draped in standard surgical fashion. Prior to this ultrasound was used to santiago out the vein. after arm was prepped incision was carried out on the brachial artery. We subsequently identified the basilic vein. This was through a longitudinal incision. We made a skip incision and we then further identified the basilic vein all the way up to the axillary fossa. We subsequently ligated the vein at the most distal point. Subsequent to that we then removed the basilic vein all the way up to its axillary point. It was flushed clear. Any side leaks were closed off with a 7 0 Prolene. We then marked with a marking pen the true orientation. This was then tunneled in a more superficial location. Brought over to the brachial artery. at this time 3000 units of systemic heparin was administered. After this this was accomplished we then performed a circumferential anastomosis using a 6 0 Prolene. Prior to closure we flushed clear. Once the closure was complete we obtain an excellent thrill. Adequate hemostasis was achieved. Deep layer was reapproximated using 2 0 Polysorb superficial layer with 3-0 poly Sorb and finally skin with a 4-0 Monocryl. Sterile dressing was applied at the end of the case. Patient had a palpable radial and ulnar pulse at the end the case. This note is constructed using voice recognition software. While every effort has been made to ensure accuracy, director software errors may have been included. Thank you for allowing me to participate in the care of your patient. Yours sincerely, Humberto Blackburn MD, FACS, R.P.V.I.
--- NOTE | 2021-08-03 10:30 | MHC.SHP ---
Pre-Procedural Eval Section A Date of Service: 08/03/21 The patient is an INPATIENT: No The History & Physical has been completed within 30 days and I have reviewed it.: Yes Section B Chief Complaint: end stage renal disease Allergies: Allergies Allergy/AdvReac Type Severity Reaction Status Date / Time No Known Allergies Allergy Verified 08/03/21 06:17 [No Known Allergies*] Plan I have reviewed the history and physical and performed a pertinent physical examination on my patient. No changes have occurred unless specified.
[2021-08-03] MEDS: fentaNYL citrate/PF 100 MCG/2 ML VIAL 25 MCG IVPUSH ×3 (10:39→11:20)
[2021-08-03] MEDS: Acetaminophen 325 MG TABLET 650 MG PO (10:39)
== END 2021-08-03 12:50 | disposition home or self-care (01) ==
PROVIDERS: Nurse Practitioner; PCP Internal Medicine; Visit Provider Surgery Vascular Surgery
PROC: (CPT 36819; principal; 2021-08-03 07:30)
DX: N18.6 End stage renal disease (principal); Z99.2 Dependence on renal dialysis; N13.30 Unspecified hydronephrosis; N17.9 Acute kidney failure, unspecified; E87.2 Acidosis; N40.0 Benign prostatic hyperplasia without lower urinary tract symptoms; D64.9 Anemia, unspecified; E83.51 Hypocalcemia; Z87.891 Personal history of nicotine dependence; F12.90 Cannabis use, unspecified, uncomplicated; Z96.649 Presence of unspecified artificial hip joint; Z79.899 Other long term (current) drug therapy
CPT/HCPCS: 36819; 36415; 80048; 85027; 85610; 85730; J0690; J2405; J3010

== ENCOUNTER → 2021-08-11 09:26 | Outpatient (BNVA) | payer MEDICARE, MEDICAID, SELFPAY | PROVIDERS: PCP Internal Medicine; Visit Provider Surgery Vascular Surgery | DX: N18.6 End stage renal disease (principal) | CPT/HCPCS: 99212 ==

== ENCOUNTER → 2021-08-31 08:29 | Day surgery (SDC) | payer MEDICARE, MEDICAID, SELFPAY ==
--- NOTE | 2021-08-26 14:29 | HO.ANESPROP2 ---
HPI - Anesthesia Eval Consult details Narrative: Cx'd 08/31/21 d/t elevated K = 6.1 61yo M for Bilateral Cystoscopy, bilateral stent exchange and retrogrades *NO IV/BP on LEFT* s/p LUE AV fistula 08/03/2021 with GA-LMA 5 ESRD with HD [facility] Active Problems Active Problems: All Active Problems (Updated 07/09/21 @ 13:[address] Narda) Prostate cancer metastatic to bone (Acute) Prostate cancer (Acute) Staphylococcus aureus bacteremia (Acute) Obstructive uropathy (Acute) ESRD (end stage renal disease) (Acute) Acidosis (Acute) Hyperkalemia (Acute) Acute pyelonephritis (Acute) Hypokalemia (Acute) Anemia in chronic kidney disease (Acute) Past Medical History Medical History Acute anemia Acute kidney injury Anemia Bilateral hydronephrosis Chronic kidney disease CKD (chronic kidney disease) stage 5, GFR less than 15 ml/min Elevated PSA Enlarged prostate Fusion of lumbar spine Hypocalcemia Kidney disease Metabolic acidosis Urinary tract infection Family History Family history of problems with anesthesia: No Surgical History Surgical History History of hip replacement, total History of Problems with Anesthesia: No Social History Social History Household Members: Other Household Members Other:: sister Housing: House Housing Other:: mobile home Do you presently have visiting nurse or other home services: No Patient Tobacco Use Status: Former Tobacco user Quit Date: 2015 Tobacco use type: Cigarette Years Smoked: 30 e-Cigarette/Vaping Use: Former Use Substance Use Type: Marijuana service: No Current occupational status: disabled Meds Allergies Allergy/AdvReac Type Severity Reaction Status Date / Time No Known Allergies Allergy Verified 08/11/21 09:31 [No Known Allergies*] Home Medications Medication Instructions Recorded Confirmed Last Taken Type ooiiuiys-sne-kqyqx acid 300 1 tab PO DAILY 04/01/21 04/01/21 03/31/21 History mcg-lycopene 600 mcg-lutein 300 mcg tablet (Centrum Silver Men) calcium acetate(phosphat bind) 667 667 mg PO TID 08/11/21 Unknown History mg tablet Exam Exam Date and Time: August 26, 2021 5239 Pertinent Lab Results Pertinent Lab Results: Laboratory Tests 08/03/21 06:19 WBC 7.2 Hgb 8.6 L Hct 27.0 L Plt Count 193 D Assessment and Plan Assessment Anesthesia Assessment: Chart Reviewed Final Anesthetic Review Family History of Problems with Anesthesia: No History of Problems with Anesthesia: No
[2021-08-31 09:11] VITALS: BMI 25.8
[2021-08-31 09:59] LABS: Anion Gap 23 (12-20); Carbon Dioxide 20 mmol/L (22-29); Chloride 102 mmol/L (96-108); Potassium 6.2 mmol/L (3.3-5.1); Sodium 139 mmol/L (135-145)
[2021-08-31 10:21] VITALS: BP 170/64; PULSE 70; RESP 16; TEMP 36.3; O2SAT 96
== END ==
PROVIDERS: Nurse Practitioner; PCP Internal Medicine; Visit Provider Urology
DX: C61 Malignant neoplasm of prostate (principal); Z53.09 Procedure and treatment not carried out because of other contraindication; Z87.891 Personal history of nicotine dependence
CPT/HCPCS: 36415; 80051

== ENCOUNTER 2021-10-05 09:52 | Day surgery (SDC) | payer MEDICARE, MEDICAID, SELFPAY ==
--- NOTE | ~2021-10-05 | FL_ITS ---
EXAMINATION: XR FLUOROSCOPY WITH IMAGES CLINICAL INFORMATION: Bilateral ureteral stent. COMPARISON: CT abdomen and pelvis noncontrast 05/28/2021 TECHNIQUE: Fluoroscopy performed by Dr. Trevor Restrepo. Fluoroscopy time: 23 seconds Cumulative dose: 5.96 mGy Images: 1 FINDINGS: Single AP view mid abdomen demonstrate right ureteral stent with probable trace contrast overlying the right collecting system. There is a guidewire and catheter overlying left ureter. There are multilevel degenerative changes spine. FL/FL guidance in OR IMPRESSION: Fluoroscopy for urologic procedures.
[2021-10-05 11:17] VITALS: BMI 27.6
[2021-10-05 11:52] LABS: Anion Gap 13 (12-20); Carbon Dioxide 30 mmol/L (22-29); Chloride 99 mmol/L (96-108); Potassium 4.4 mmol/L (3.3-5.1); Sodium 138 mmol/L (135-145)
[2021-10-05 11:59] VITALS: BP 184/66; PULSE 69; RESP 18; TEMP 36.8; O2SAT 96
--- NOTE | 2021-10-05 13:43 | HO.ANESPROP2 ---
HPI - Anesthesia Eval Consult details Narrative: 61 yo male patient for Cystoscopy with stent exchange and bilateral retrogrades PMFSH Active Problems Active Problems: All Active Problems (Updated 09/29/21 @ 15:14 by Bella Kulkarni, BRITT) Hypokalemia (Acute) Anemia in chronic kidney disease (Acute) Acute pyelonephritis (Acute) Hyperkalemia (Acute) Acidosis (Acute) ESRD (end stage renal disease) (Acute) Obstructive uropathy (Acute) Staphylococcus aureus bacteremia (Acute) Prostate cancer (Acute) Prostate cancer metastatic to bone (Acute) Past Medical History Medical History (Updated 09/29/21 @ 15:14 by Bella Kulkarni RN) A-V fistula Acute anemia Acute kidney injury Anemia Bilateral hydronephrosis Chronic kidney disease Elevated PSA Enlarged prostate Fusion of lumbar spine History of upper gastrointestinal bleeding Hypocalcemia Kidney disease Metabolic acidosis Urinary tract infection Family History Family history of problems with anesthesia: No Surgical History Surgical History (Updated 09/29/21 @ 15:07 by Bella Kulkarni RN) History of fusion of cervical spine History of hip replacement, total History of transurethral resection of prostate Hx of esophagogastroduodenoscopy S/P arteriovenous (AV) fistula creation History of Problems with Anesthesia: No Social History Social History Household Members: Other Household Members Other:: sister Housing: House Housing Other:: mobile home Do you presently have visiting nurse or other home services: No Patient Tobacco Use Status: Former Tobacco user Quit Date: 2015 Tobacco use type: Cigarette Years Smoked: 30 e-Cigarette/Vaping Use: Former Use Substance Use Type: Marijuana Are you DNR?: No Advance Directives: No Advance Directives Information Provided: No Nutrition Risks: No Nutritional Risk service: No Current occupational status: disabled Meds Allergies Allergy/AdvReac Type Severity Reaction Status Date / Time No Known Allergies Allergy Verified 09/29/21 15:14 [No Known Allergies*] Home Medications Medication Instructions Recorded Confirmed Last Taken Type jonghcyr-qvv-tuvjc acid 300 1 tab PO DAILY 04/01/21 09/29/21 03/31/21 History mcg-lycopene 600 mcg-lutein 300 mcg tablet (Centrum Silver Men) calcium acetate(phosphat bind) 667 667 mg PO TID 08/11/21 09/29/21 Unknown History mg tablet Exam Exam Date and Time: October 05, 2021 1343 Height,Weight and Vital Signs: Height 5 ft 3 in Weight 70.76 kg Last Vital Signs Temp 98.2 F 10/05/21 11:59 Pulse 69 10/05/21 11:59 Resp 18 10/05/21 11:59 BP 184/66 H 10/05/21 11:59 Pulse Ox 96 10/05/21 11:59 Pertinent Lab Results Pertinent Lab Results: Laboratory Tests 10/05/21 11:32 Sodium 138 Potassium 4.4 D Chloride 99 Carbon Dioxide 30 H Anion Gap 13 Airway Mallampati Class: II TM Dist: >3cm Neck ROM: Full Loose/Missing/Broken Teeth: No Heart: RRR Lungs: CTAB Assessment and Plan Assessment Anesthesia Assessment: Anesthesia Plan Discussed and Chart Reviewed Final Anesthetic Review Family History of Problems with Anesthesia: No History of Problems with Anesthesia: No NPO: Yes ASA Class: III Final Preanesthetic Review: No Changes in Pt Med Stat, Meds/Allgs Chart Reviewed, Consent Obtained/Reviewed and Anes Risks/Benef Reviewed Patient Risk: Intermediate Procedure Risk: Low Assessment/Block/Sedation in SS: Assess/Block/Sedation-SS Anesthetic Plan Disposition: Standard PACU
[2021-10-05] MEDS: 0.9 % Sodium Chloride 1,000 ML 50 ML IVCONT (13:47)
--- NOTE | 2021-10-05 13:49 | P.HPSUR_ITS ---
Pre-Procedural Eval Section A Date of Service: 10/05/21 The patient is an INPATIENT: No Changes since office visit: No Cold of Flu in the past 2 weeks, No New Medical Problems, No Changes in Medication and No Patient answered all questions The History & Physical has been completed within 30 days and I have reviewed it.: Yes Section B Chief Complaint: neoplasm of prostate Allergies: Allergies Allergy/AdvReac Type Severity Reaction Status Date / Time No Known Allergies Allergy Verified 09/29/21 15:14 [No Known Allergies*] Review of Systems Sugical H&P ROS: Negative: Constitution, Cardiovascular, Respiratory, Neurological, Psychiatric, Hem-Onc, Allergic/Immunologic, Gastrointestinal, Genitourinary, Musculoskeletal, Integumentary, Endocrine and Eyes/Ears/Nose/Throat Exam Surgical H&P Exam: Normal: HEENT, Normal: Heart, Normal: Lungs, Normal: Ex tremities, Normal: Abdomen, Normal: Skin and Normal: Neurological Plan Diagnosis/Plan: Unchanged (cystoscopy with bilateral stent exchange) I have reviewed the history and physical and performed a pertinent physical examination on my patient. No changes have occurred unless specified.
[2021-10-05] MEDS: levoFLOXacin 500 MG TABLET PO (14:05)
--- NOTE | 2021-10-05 14:44 | P.OP_ITS ---
Operative Note Operative Note Date of Service: 10/05/21 Narrative: PreOperative Diagnosis: bilateral hydronephrosis with renal failure Post Operative Diagnosis: above Procedure: cystoscopy, bilateral stent exchange Surgeon: Dr Trevor Restrepo Anesthesia: sedation Indications for procedure: 7-year-old male with acute renal failure and J hooking of ureters. On dialysis. Still makes urine. Here for stent exchange Procedure: After informed consent was verified the patient was brought to the operating room and placed in a supine position. anesthesia was administered per protocol. patient was placed in modified dorsal lithotomy position and prepped and draped in sterile fashion. Safety pause time-out performed. Antibiotics being given. Cystoscopy performed. Wire placed alongside right-sided stent. Right-sided stent removed. Wire backloaded through cystoscope. Six [place] by 26 cm double- J stent placed good coil seen in bladder an awful risk PPE in kidney. Wire placed alongside left stent. Left stent removed. Six [place] by 26 cm double-J stent backloaded through wire and good coil seen within renal pelvis and in bladder. Patient tolerated procedure well extubated in operating room transferred in stable condition to the Recovery area. Pathology: Drains: bilateral 6 [place] by 24 cm double-J stents
[2021-10-05 15:00] VITALS: BP 101/51; PULSE 72; RESP 16; TEMP 36.3; O2SAT 100
[2021-10-05 15:05] VITALS: BP 113/67; PULSE 65; RESP 10; O2SAT 99
[2021-10-05 15:10] VITALS: BP 103/58; PULSE 67; RESP 18
[2021-10-05 15:15] VITALS: BP 116/56; PULSE 63; RESP 18; O2SAT 100
[2021-10-05] MEDS: Phenazopyridine HCL 100 MG TABLET PO (15:37)
== END 2021-10-05 15:52 | disposition home or self-care (01) ==
PROVIDERS: Anesthesiology; PCP Internal Medicine; Visit Provider Urology
PROC: 0TJB8ZZ Inspection of Bladder, Via Natural or Artificial Opening Endoscopic (ICD-10-PCS; CPT 52000; principal; 2021-10-05 13:40)
DX: N17.8 Other acute kidney failure (principal); N13.0 Hydronephrosis with ureteropelvic junction obstruction; N18.5 Chronic kidney disease, stage 5; Z99.2 Dependence on renal dialysis; C61 Malignant neoplasm of prostate; C79.51 Secondary malignant neoplasm of bone; N40.1 Benign prostatic hyperplasia with lower urinary tract symptoms; R33.8 Other retention of urine; Z87.891 Personal history of nicotine dependence; F12.90 Cannabis use, unspecified, uncomplicated
CPT/HCPCS: 52332; 36415; 80051; C1758; C2617; J2370; J2405; J3010; Q9967

== ENCOUNTER 2021-10-08 13:27 | Outpatient (REF) | payer MEDICARE, MEDICAID, SELFPAY ==
--- NOTE | ~2021-10-08 | CT_ITS ---
EXAMINATION: CT ABDOMEN AND PELVIS WITHOUT CONTRAST CLINICAL INFORMATION: Malignant neoplasm of prostate. COMPARISON: CT abdomen and pelvis 05/28/2021. TECHNIQUE: Multidetector volumetric imaging was performed from the superior aspect of the liver through the pubic symphysis. Sagittal and coronal reformatted images were obtained on the technologist's workstation. This CT examination was performed using dose optimization techniques as appropriate, variously including the following: *Automated exposure control *Adjustment of mA and/or kV according to patient size (this includes techniques or standardized protocols for targeted exams where dose is matched to indication/reason for exam; i.e. extremities or head) *Use of iterative reconstruction technique DLP: 457 mGy-cm FINDINGS: LUNG BASES: The visualized lung bases are unremarkable. No pleural effusion. The imaged heart is unremarkable and there is trace pericardial fluid. LIVER, GALLBLADDER, AND BILIARY TREE: The liver is normal in size, shape, and attenuation. No focal hepatic lesion or biliary ductal dilatation is present. The gallbladder is unremarkable with no evidence of radiopaque gallstones, gallbladder wall thickening, or obvious pericholecystic inflammatory changes. PANCREAS: Unremarkable. SPLEEN: Unremarkable. ADRENAL GLANDS: Unremarkable. KIDNEYS AND URETERS: There is bilateral renal cortical atrophy, left greater than right and nonspecific bilateral perinephric stranding. The previously seen bilateral nephrostomy tubes have been removed. There are bilateral nephroureteral stents in place located in the renal pelves. There is mild bilateral hydroureteronephrosis. No renal calculi. BLADDER: Partially obscured by streak artifact from right hip arthroplasty. There is circumferential bladder wall thickening somewhat greater at the anterior left aspect of the bladder wall where it measures up to 9 mm in thickness (image 513, series 6). GASTROINTESTINAL TRACT: There is a small hiatal hernia, otherwise the distal esophagus is unremarkable. The stomach is normal in contour. The small and large bowel are normal in course and caliber. There is a normal appendix. There is colonic diverticulosis, predominantly of the sigmoid colon. No bowel wall inflammatory changes or abnormal bowel wall thickening is seen. ABDOMINAL WALL: No significant hernia is appreciated. No free intra-abdominal fluid. LYMPH NODES: No pathologically enlarged abdominopelvic or retroperitoneal lymph nodes are identified. VASCULAR: The aorta is normal in caliber. There is fairly extensive eccentric wall calcification of the infrarenal abdominal aorta and its branches. The common iliac arteries are ectatic and measure up to 1.5 cm in diameter. Unremarkable appearance of the venous structures. PELVIC VISCERA: There are multiple coarse calcifications of the prostate as well as calcifications of the seminal vesicles. OSSEOUS STRUCTURES: Multifocal sclerotic lesions, presumably osseous metastases, are again seen throughout the pelvis, sacrum, vertebral bodies, and ribs which are essentially unchanged in size and distribution when compared with the prior study. There is a right hip prosthesis in place which generates streak artifact. The components are intact and in alignment. Multilevel degenerative changes are again seen throughout the thoracolumbar spine as well as degenerative ankylosis of the sacroiliac joints. CT/CT abdomen pelvis wo con IMPRESSION: Overall stable appearance of sclerotic osseous lesions, presumably osseous metastatic disease. Interval removal of bilateral nephrostomies with bilateral nephroureteral stents in place. There is mild bilateral hydroureteronephrosis. Circumferential bladder wall thickening similar to prior and measuring up to at least 9 mm at the anterior left aspect of the bladder. Fleischner guidelines were followed.
== END 2021-10-08 13:28 | disposition home or self-care (01) ==
LOC: HO.CT 13:27
PROVIDERS: PCP Internal Medicine; Visit Provider Urology
DX: C61 Malignant neoplasm of prostate (principal); C79.51 Secondary malignant neoplasm of bone
CPT/HCPCS: 74176

== ENCOUNTER 2021-10-23 10:25 | Outpatient (AMB) | payer MEDICARE, MEDICAID, SELFPAY ==
--- NOTE | 2021-10-23 10:33 | MHC.OFFVIS ---
Intake Intake Visit Reasons: Follow up with CT Scan and labs Intake Note: patient is present for ct scan and labs follow up Accompanied by: Self / Same As Patient Allergies No Known Allergies [No Known Allergies*] Allergy (Verified 09/07/23 13:46) HPI HPI Comments History of Present Illness Details Darwin is a pleasant male. He is seen for the following urologic issues - urinary retention with elevated creatinine - prostate cancer Urinary retention Bilateral ureteric stents, bilateral PCN Incomplete bladder emptying Currently on dialysis Prostate cancer grade group 5 with metastatic disease - last GnRH July 2021 - Current therapy GnRH with antiandrogen 04/21 - PSA 23 Prostate biopsy 06/21 Histologic type: Adenocarcinoma, acinar type Histologic grade: Flor score: 5+4=9 (right apex) 4+5=9 (left mid, right mid) 4+4=8 (left apex) 4+3=7 (left base, right base) ? % of pattern 4: 75% ? % of pattern 5: 20% ? Grade group: 5, 4 and 3 Tumor quantitation: Number cores positive: 6 Total number of cores: 6 % of tissue involved: Greater than 95% Periprostatic fat inv.: Present Seminal vesicle inv.: Not identified Perineural inv.: Present LVI: Suspicious Staging - May 2021 - bone scan and CT scan with metastatic disease - [facility] Medical History HTN (hypertension) ESRD (end stage renal disease) Creatinine elevation Urinary retention History of upper gastrointestinal bleeding A-V fistula Fusion of lumbar spine Chronic kidney disease Urinary tract infection Enlarged prostate Kidney disease Elevated PSA Anemia Metabolic acidosis Bilateral hydronephrosis Hypocalcemia Acute anemia Acute kidney injury Surgical History History of fusion of cervical spine Hx of esophagogastroduodenoscopy History of transurethral resection of prostate S/P arteriovenous (AV) fistula creation History of hip replacement, total Social History Household Members: Other Household Members Other:: sister Housing: House Housing Other:: mobile home Do you presently have visiting nurse or other home services: No Alcohol intake: former Patient Tobacco Use Status: Former Tobacco user Quit Date: 8 years ago Tobacco use type: Cigarette Years Smoked: 30 e-Cigarette/Vaping Use: Former Use Substance Use Type: Marijuana service: No Current occupational status: disabled Review of Systems Const Denies chills and Denies fever(s) Card Reports no additional complaints and Denies syncope Resp Denies cough GI Denies abdominal pain and Denies heartburn Reports as per HPI and Denies change in libido Neuro Denies syncope Psych Denies change in libido Endo Denies change in libido Physical Exam Const General: cooperative, healthy appearing, comfortable and no acute distress Orientation/consciousness: patient oriented x3 HEENT Face and sinus: Yes normal facial exam Mouth: moist mucous membranes Neck Neck: Yes normal visual inspection, Yes full ROM and Yes trachea midline Chest Chest palpation & inspection: normal inspection of the chest Resp Effort & Inspection: normal respiratory effort, able to speak in complete sentences and no respiratory distress GI Inspection: Yes normal to inspection Back/Spine/Pelvis Cervical Spine: normal cervical lordosis Thoracic/Lumbar Spine: thoracic and lumbar spine normal to inspection Skin General skin exam: no rashes or lesions noted Neuro General: patient oriented x3, gait normal, tone normal and moves all extremities Extrem General: Yes normal to inspection and Yes capillary refill normal Office Procedures Post Void Residual Post Residual Void Post Void Residual (PVR): 257 [id number]-Vyrw Void Residual by ultrasound Results AMB Urinalysis, Automated UA Leukoctes 70 Quiana/uL Last Edit by Johann Miranda on 10/23/21 10:47 UA Nitrite Negative Last Edit by Johann Miranda on 10/23/21 10:47 UA Urobilinogen 0.2 mg/dL Last Edit by Johann Miranda on 10/23/21 10:47 UA Protein 100 mg/dL Last Edit by Johann Miranda on 10/23/21 10:47 UA pH 8.5 Last Edit by Johann Miranda on 10/23/21 10:47 UA Blood 200 Shorty/uL Last Edit by Johann Miranda on 10/23/21 10:47 UA Specific Roulette 1.010 Last Edit by Johann Miranda on 10/23/21 10:47 UA Ketone Negative Last Edit by Johann Miranda on 10/23/21 10:47 UA Bilirubin 0 mg/dL Last Edit by Johann Miranda on 10/23/21 10:47 UA Glucose 500 mg/dL Last Edit by Johann Miranda on 10/23/21 10:47 Results Reviewed Results Reviewed: Laboratory Last Values Urine pH (Auto) 8.5 10/23/21 10:37 Specific Roulette (Auto) 1.010 10/23/21 10:37 Urine Protein (Auto) 100 mg/dL 10/23/21 10:37 Glucose (UA)(Auto) 500 mg/dL 10/23/21 10:37 Urine Ketones (Auto) Negative 10/23/21 10:37 Urine Blood (Auto) 200 Shorty/uL 10/23/21 10:37 Urine Nitrite (Auto) Negative 10/23/21 10:37 Urine Bilirubin (Auto) 0 mg/dL 10/23/21 10:37 Urine Urobilinogen (Auto) 0.2 mg/dL 10/23/21 10:37 Leukocyte Esterase (Auto) 70 Quiana/uL 10/23/21 10:37 Assessment & Plan Assessment & Plan (1) Bilateral hydronephrosis: Code(s): N13.30 - Unspecified hydronephrosis (2) Urinary retention: Code(s): R33.9 - Retention of urine, unspecified Plan Follow-up prostate cancer Orders: Orders AMB Urinalysis Automated 10/23/21 Z13.9 - Encounter for screening, unspecified, N13.9 - Obstructive and reflux uropathy, unspecified AMB Post Void Residual by ultrasound 10/23/21 N13.9 - Obstructive and reflux uropathy, unspecified Testosterone, Total 10/23/21 C61 - Malignant neoplasm of prostate, C79.51 - Secondary malignant neoplasm of bone NM renal flow w pharm int 10/23/21 C61 - Malignant neoplasm of prostate, C79.51 - Secondary malignant neoplasm of bone Prostate Specific Antigen 10/23/21 C61 - Malignant neoplasm of prostate, C79.51 - Secondary malignant neoplasm of bone Patient Instructions: Imaging studies, laboratory and physical exam results were discussed and reviewed in detail. No major barriers to patient understanding were identified. An opportunity to ask questions regarding the treatment plan was provided. All questions were answered. The patient expressed understanding and agreement with the above treatment plan. The patient is aware they should contact our office by phone for worsening of their current condition or the appearance of new urologic symptoms. Compliance is encouraged with any medications and followup testing that is ordered. It is a privilege to participate in the urologic care of your patient. If you have any questions or concerns regarding treatment for the above conditions, or other urologic issues, please do not hesitate to contact me. The office telephone contact is [phone]. This note is constructed using voice recognition software. While every effort has been made to ensure accuracy public address servicer errors may have been included. Yours sincerely, Dr Trevor Restrepo MD, [facility] - Urology Providers of Expert, Compassionate Care for the Genitourinary System Coding Level of Care Code Est Pt Level 3 (10553) Diagnoses Bilateral hydronephrosis N13.30 Urinary retention R33.9 CPT Codes Post Residual Void - PVR CPT Code: 13877-Ilrq Void Residual by ultrasound ([id number])
== END 2021-10-23 11:30 | disposition home or self-care (01) ==
LOC: HO.HUSH 10:25
PROVIDERS: PCP Internal Medicine; Visit Provider Urology
DX: N13.30 Unspecified hydronephrosis (principal); R33.9 Retention of urine, unspecified
CPT/HCPCS: 99499

== ENCOUNTER → 2021-10-23 10:25 | Outpatient (BNVA) | payer MEDICARE, MEDICAID, SELFPAY | PROVIDERS: PCP Internal Medicine; Visit Provider Urology | DX: Z13.89 Encounter for screening for other disorder (principal) | CPT/HCPCS: 51798 ==

== ENCOUNTER → 2021-11-26 14:00 | Day surgery (SDC) | payer MEDICARE, MEDICAID, SELFPAY ==
--- NOTE | ~2021-11-26 | IR_ITS ---
EXAMINATION: PERMACATH REMOVAL CLINICAL INFORMATION: PermCath no longer necessary COMPARISON: June 18, 2021 TECHNIQUE: PermCath removal using sterile technique FINDINGS: The indwelling left-sided dialysis catheter was blunt dissected out using sterile technique and lidocaine. The catheter was removed in its entirety without complication. IR/IR cvc remov tunnel wo prt/advertising assistant IMPRESSION: Left-sided dialysis catheter removal.
== END ==
PROVIDERS: PCP Internal Medicine; Visit Provider Radiology Diagnostic Radiology
DX: Z45.2 Encounter for adjustment and management of vascular access device (principal); N18.6 End stage renal disease
CPT/HCPCS: 36589

== ENCOUNTER 2021-11-26 14:26 | Outpatient (REF) | payer MEDICARE, MEDICAID, SELFPAY | END 2021-11-26 14:27 | disposition home or self-care (01) | LOC: HO.RADIR 14:26 | PROVIDERS: Visit Provider Internal Medicine Nephrology | DX: Z49.01 Encounter for fitting and adjustment of extracorporeal dialysis catheter (principal); N18.6 End stage renal disease | CPT/HCPCS: 36589 ==

== ENCOUNTER → 2021-12-08 13:21 | Outpatient (REF) | payer MEDICARE, MEDICAID, SELFPAY ==
--- NOTE | ~2021-12-08 | NM_ITS ---
EXAMINATION: RENAL DYNAMIC IMAGING STUDY WITH LASIX CLINICAL INFORMATION: Malignant neoplasm of prostate. Patient has been on hemodialysis for about 6 months. COMPARISON: No previous radionuclide renal scan is available for comparison. The diagnostic CT scan of the abdomen and pelvis, dated 10/08/2021, is available for comparison. TECHNIQUE: Serial gamma scintillation camera images were obtained over the posterior trunk during the initial transit and subsequent distribution of a bolus intravenous injection of 10 mCi of Tc-99m DTPA. At 30 minutes later, 38 mg of Lasix was administered intravenously and an additional 30 minutes of images obtained. FINDINGS: Initial rapid sequence images show poor perfusion to both kidneys. Flow to the spleen and liver are visualized but definite renal flow is not visualized. Subsequent sequential static images obtained up to 30 minutes show poor concentration in both kidneys. The concentration is more severely impaired in the left kidney. Both kidneys appear small in size and the left kidney is slightly smaller than the right. No definite excretory function is visualized for the duration of the study. Following Lasix administration, there continues to be poor concentration in both kidneys, more severely on the left with no definite excretory function visualized. Meaningful T-1/2 washout times following Lasix administration cannot be calculated on either side because of the poor excretory function present in both kidneys. The relative function of the two kidneys based on the 2-3 minute images are: Left 61% and right 39%. The poor concentration in both kidneys as well as prominent splenic activity immediately adjacent to the left kidney may significantly decrease the accuracy of these relative function calculations. NM/NM renal flow w pharm int IMPRESSION: LEFT KIDNEY: Markedly impaired perfusion and function. No definite excretory function is visualized. RIGHT KIDNEY: Markedly impaired perfusion and function. No definite excretory function is visualized. This kidney appears to concentrate slightly better than the left, suggesting that the relative function calculations noted above are not accurate.
== END ==
LOC: HO.NUCMED 13:21
PROVIDERS: PCP Registered Nurse; Visit Provider Urology
DX: C61 Malignant neoplasm of prostate (principal); C79.51 Secondary malignant neoplasm of bone; R33.9 Retention of urine, unspecified; R79.89 Other specified abnormal findings of blood chemistry
CPT/HCPCS: 78708; A9539; J1940

== ENCOUNTER → 2022-02-02 09:52 | Outpatient (BNVA) | payer MEDICARE, MEDICAID, SELFPAY | PROVIDERS: PCP Registered Nurse; Visit Provider Urology | DX: C61 Malignant neoplasm of prostate (principal); C79.51 Secondary malignant neoplasm of bone; R33.9 Retention of urine, unspecified | CPT/HCPCS: 96372; 96402; 99212; J0897; J9217 ==

== ENCOUNTER 2022-02-08 14:31 | Outpatient (REF) | payer MEDICARE, MEDICAID, SELFPAY ==
[2022-02-08 17:12] LABS: Prostate Specific Antigen 0.45 ng/mL (<0.05-4.0)
[2022-02-15 10:51] LABS: Testosterone, Total <1 ng/dL (250-1100)
== END 2022-02-08 14:32 | disposition home or self-care (01) ==
LOC: HO.LAB 14:31
PROVIDERS: Visit Provider Urology
DX: Z12.5 Encounter for screening for malignant neoplasm of prostate (principal); C61 Malignant neoplasm of prostate; C79.51 Secondary malignant neoplasm of bone
CPT/HCPCS: 36415; 84153; 84403

== ENCOUNTER → 2022-03-18 14:53 | Outpatient (BNVA) | payer MEDICARE, MEDICAID, SELFPAY | PROVIDERS: PCP Registered Nurse; Visit Provider Surgery Vascular Surgery | DX: N18.6 End stage renal disease (principal) | CPT/HCPCS: 99212 ==

== ENCOUNTER 2022-03-23 09:52 | Day surgery (SDC) | payer MEDICARE, MEDICAID, SELFPAY ==
[2022-03-23 10:29] VITALS: BMI 28.8
[2022-03-23 10:32] VITALS: BP 168/94; PULSE 69; RESP 18; TEMP 36.6; O2SAT 98
[2022-03-23 10:34] LABS: MANUAL DIFF FLAG NO
[2022-03-23 10:37] LABS: Basophils Percent Auto 0.3 % (0-2); Hematocrit 31.7 % (42.0-52.0); Hemoglobin 10.4 g/dl (14.0-18.0); Imm Gran Abs Auto 0.11 X10*3/uL (0.00-0.03); Imm Gran Pct Auto 1.6 % (0.0-0.4); Lymphocytes Absolute Auto 0.6 X10*3/uL (1.2-4.9); Lymphocytes Percent Auto 8.6 % (20-40); Mean Corpuscular HGB Conc 32.8 g/dl (31.0-36.0); Mean Corpuscular Volume 91.4 fL (80.0-98.0); Mean Platelet Volume 11.4 fL (9.4-12.4); Monocytes Absolute Auto 0.4 X10*3/uL (0.1-1.2); Monocytes Percent Auto 5.2 % (2-11); Neutrophils Absolute Auto 5.8 x10*3/uL (2.0-8.3); Neutrophils Percent Auto 84.3 % (45-73); Platelet Count 205 X10*3/uL (160-400); Red Blood Count 3.47 X10*6/uL (4.60-5.80); White Blood Count 6.9 X10*3/uL (4.8-10.8)
[2022-03-23] MEDS: 0.9 % Sodium Chloride 1,000 ML 100 ML IVCONT (10:46)
[2022-03-23 11:05] LABS: Anion Gap 16 (12-20); Blood Urea Nitrogen 22 mg/dL (9-16); Calcium 9.4 mg/dL (8.4-10.2); Carbon Dioxide 24 mmol/L (22-29); Chloride 98 mmol/L (96-108); Creatinine Clr Calc Pharmacy 11.9; Estimated Glomerular Filt Rate 10; Glucose Random 129 mg/dL (60-115); Potassium 4.2 mmol/L (3.3-5.1); Sodium 134 mmol/L (135-145)
--- NOTE | 2022-03-23 11:10 | PC.NURSE ---
riky message sent to dr. valencia to review lab values and critical result of creatinine 5.84 at this time
--- NOTE | 2022-03-23 12:09 | PC.NURSE ---
dr. valencia visited with patient prior to procedure. author reviewed with him that he received message regarding creatinine level. stated received. no interventions at this time.
[2022-03-23 13:39] VITALS: BP 192/85; PULSE 76; RESP 18; O2SAT 100
[2022-03-23] MEDS: iohexoL 300 MG/ML 50 ML INFUS..BTL IV (13:47)
--- NOTE | 2022-03-23 13:48 | P.OP_ITS ---
Operative Note Operative Note Date of Service: 03/23/22 Narrative: Angiogram report from [facility] Preoperative diagnosis: 1. End-stage renal disease 2. Poorly functioning fistula Postoperative diagnosis: Same Procedure: 1. Left upper extremity fistula 2. Angioplasty of outflow tract Surgeon:Humberto Blackburn M.D., FACS, RPVI Psychological Science Professor:None Anesthesia: Local with moderate conscious sedation. Total intraservice moderate sedation time was 45 minutes. I monitored the patient's level of consciousness and physiologic status continuously throughout the procedure. Specimens:none Drains:none Estimated blood loss: Less than 10 ml Implant: Medtronic Impact 8 x 40 drug coated balloon x2 Indications: 62-year-old gentleman with end-stage renal disease with a basilic vein transposition has been using the fistula. He has had poor flows and has had increased bleeding after removal of needles. He now presents for fistulogram The patient has signed the informed consent after reviewing risks, complications, benefits, and alternatives previously discussed with the patient. The patient was given the opportunity to ask any additional questions or voice any concerns. All questions were answered to the patient's satisfaction. Procedure in detail: Patient was brought to the angiography suite prior to which a time-out was called for patient identification and site verification. Bilateral groins were prepped and draped in the standard surgical fashion. A direct puncture was made on the left upper extremity fistula after infiltrating the area with local. Micropuncture wire and subsequently micro sheath was then placed. Through extension tubing fistulogram was then undertaken. There demonstrated to be 2 areas of stenosis in the outflow tract. Contrast was reflux down to the arterial side and no stenosis was noted there. At this time 3000 units of systemic heparin was administered. There were 2 stenotic areas noted in the outflow track which was plasty and with an 6 x 40 regular balloon and subsequently an 8 x 40 regular balloon. We turned our attention to the most distal stenotic area 1st. We then subsequently plasty this with an 8 x 40 drug coated balloon. This was brought into position in under 3 minutes and insufflated for a total of 3 minutes in duration. In a similar fashion we then brought it to the more proximal lesion and this was subsequently plasty did in a similar fashion with a drug coated balloon. There appeared to be no central venous stenosis. At this time catheter wire sheath were then removed. The puncture site was closed over with a nylon suture. Adequate hemostasis was achieved and the patient was returned to recovery with stable vitals Interpretation of films: 1. Fistulogram demonstrated to stenotic areas in the outflow tract. No central venous stenosis. No stenosis at the arterial anastomosis. 2. Completion fistulogram demonstrated excellent flow through the outflow tract. The patient had a thrill as opposed to a pulsatile pulse previously in the fistula tract. Conclusion: 1. Successful plasty of outflow tract This note is constructed using voice recognition software. While every effort has been made to ensure accuracy, wood fence erector errors may have been included. Thank you for allowing me to participate in the care of your patient. Yours sincerely, Humberto Blackburn MD, FACS, R.P.V.I.
[2022-03-23 13:57] VITALS: BP 180/81; PULSE 69; RESP 18; O2SAT 100
== END 2022-03-23 14:27 | disposition home or self-care (01) ==
PROVIDERS: Visit Provider Surgery Vascular Surgery
DX: T82.858A Stenosis of other vascular prosthetic devices, implants and grafts, initial encounter (principal); Y83.2 Surgical operation with anastomosis, bypass or graft as the cause of abnormal reaction of the patient, or of later complication, without mention of misadventure at the time of the procedure; Y92.9 Unspecified place or not applicable; N18.6 End stage renal disease; Z99.2 Dependence on renal dialysis; Z87.891 Personal history of nicotine dependence
CPT/HCPCS: 36415; 36902; 80048; 85025; 99152; 99153; C1725; C1726; C1769; C1893; J2250; J3010; Q9967

== ENCOUNTER 2022-03-25 15:34 | Emergency (ER) | payer MEDICARE, MEDICAID, SELFPAY ==
[2022-03-25 15:57] VITALS: BP 172/79; PULSE 85; RESP 16; TEMP 36.9; O2SAT 98; BMI 23.8
== END 2022-03-25 19:51 | disposition left against medical advice (07) ==
PROVIDERS: Emergency Provider Emergency Medicine
DX: M54.50 Low back pain, unspecified (principal); C61 Malignant neoplasm of prostate; C79.51 Secondary malignant neoplasm of bone
CPT/HCPCS: 99281

== ENCOUNTER → 2022-05-11 10:30 | Outpatient (REF) | payer MEDICARE, MEDICAID, SELFPAY ==
--- NOTE | ~2022-05-11 | NM_ITS ---
EXAMINATION: NM BONE SCAN OF THE WHOLE BODY CLINICAL INFORMATION: Prostate cancer. COMPARISON: Whole-body bone scan done on 04/07/2021. TECHNIQUE: Multiple gamma scintillation camera images of the whole body were performed 2.5 hours following the intravenous administration of 26 mCi Tc-99m MDP. The radiotracer was injected through right hand superficial vein, without complications. FINDINGS: There is generalized/diffuse increase osseous uptake noted throughout the entire visualized axial and appendicular skeleton with poor visualization of both kidneys. The overall finding is consistent with SuperScan . Given the patient history of prostate cancer, the findings are suspicious for diffuse osseous metastatic disease. Additional focal increased radiotracer activities are also noted predominantly involving the left shoulder, the right posterior sixth rib, likely anterior part of L2 vertebral body, also suspicious for superimposed discrete focal metastatic disease. Previously documented intense abnormal increased activity at the right T10 vertebral body appears improved. Postsurgical changes of right hip and bilateral knee prosthesis, appear amenable to prior study. Note is also made of focal increased activities within both feet, likely represent degenerative and/or posttraumatic changes. Both kidneys and the bladder are very faintly visualized. NM/NM bone scan whole body IMPRESSION: 1. Abnormal study. 2. There is generalized/diffuse increased radiotracer activity identified throughout the entire visualized axial skeleton with poor visualization of both kidneys and the bladder. Overall finding is consistent with SuperScan , likely represent diffuse osseous involvement in this patient with known osseous metastasis from prostate cancer. Superimposed focal disease involving the left humeral head, right posterior sixth rib are also noted, similar to prior study. 3. Previously visualized focal intense abnormal activity involving the right T10 vertebra appears improved. Possible new disease involving anterior part of L2 vertebral body. 4. Follow-up PSMA PET CT study may be considered for further full detail evaluation, if clinically appropriate.
== END ==
LOC: HO.NUCMED 10:30
PROVIDERS: Visit Provider Urology
DX: C61 Malignant neoplasm of prostate (principal); C79.51 Secondary malignant neoplasm of bone
CPT/HCPCS: 78306; A9500; A9503

== ENCOUNTER 2022-06-08 12:17 | Outpatient (REF) | payer MEDICARE, MEDICAID, SELFPAY ==
[2022-06-08 14:04] LABS: Prostate Specific Antigen 0.25 ng/mL (<0.05-4.0)
[2022-06-14 11:22] LABS: Testosterone, Total <1 ng/dL (250-1100)
== END 2022-06-08 12:18 | disposition home or self-care (01) ==
LOC: HO.LAB 12:17
PROVIDERS: PCP Registered Nurse; Visit Provider Urology
DX: Z12.5 Encounter for screening for malignant neoplasm of prostate (principal); C61 Malignant neoplasm of prostate; C79.51 Secondary malignant neoplasm of bone; I10 Essential (primary) hypertension
CPT/HCPCS: 36415; 84153; 84403; 93005; 99202

== ENCOUNTER → 2022-07-01 13:08 | Outpatient (BNVA) | payer MEDICARE, MEDICAID, SELFPAY | PROVIDERS: Visit Provider Urology | DX: N13.9 Obstructive and reflux uropathy, unspecified (principal); C61 Malignant neoplasm of prostate; C79.51 Secondary malignant neoplasm of bone | CPT/HCPCS: Q3014 ==

== ENCOUNTER 2022-07-05 06:36 | Day surgery (SDC) | payer MEDICARE, MEDICAID, SELFPAY ==
--- NOTE | 2022-07-02 10:41 | HO.ANESPROP2 ---
HPI - Anesthesia Eval Consult details Narrative: 62yo M for Bilateral Cystoscopy & Stent exchange s/p cysto 09/2021 with GA-LMA 4 *NO IV/BP on LEFT* ESRD with HD MWF Stable at 06/2022 cardiology office visit [facility] Active Problems Active Problems: All Active Problems (Updated 06/08/22 @ 14:54 by Antony Zhang MD) HTN (hypertension) (Acute) Creatinine elevation (Acute) Urinary retention (Acute) Hypokalemia (Acute) Anemia in chronic kidney disease (Acute) Acute pyelonephritis (Acute) Hyperkalemia (Acute) Acidosis (Acute) ESRD (end stage renal disease) (Acute) Obstructive uropathy (Acute) Staphylococcus aureus bacteremia (Acute) Prostate cancer (Acute) Prostate cancer metastatic to bone (Acute) Past Medical History Medical History A-V fistula Acute anemia Acute kidney injury Anemia Bilateral hydronephrosis Chronic kidney disease Creatinine elevation Elevated PSA Enlarged prostate Fusion of lumbar spine History of upper gastrointestinal bleeding Hypocalcemia Kidney disease Metabolic acidosis Urinary retention Urinary tract infection Family History Family history of problems with anesthesia: No Surgical History Surgical History History of fusion of cervical spine History of hip replacement, total History of transurethral resection of prostate Hx of esophagogastroduodenoscopy S/P arteriovenous (AV) fistula creation History of Problems with Anesthesia: No Social History Social History Household Members: Other Household Members Other:: sister Housing: House Housing Other:: mobile home Do you presently have visiting nurse or other home services: No Patient Tobacco Use Status: Former Tobacco user Quit Date: 8 years ago Tobacco use type: Cigarette Years Smoked: 30 e-Cigarette/Vaping Use: Former Use Substance Use Type: Marijuana service: No Current occupational status: disabled Meds Allergies Allergy/AdvReac Type Severity Reaction Status Date / Time No Known Allergies Allergy Verified 07/01/22 13:09 [No Known Allergies*] Home Medications Medication Instructions Recorded Confirmed Last Taken Type lcjprzcw-xhv-headp acid 300 1 tab PO DAILY 04/01/21 06/08/22 03/31/21 History mcg-lycopene 600 mcg-lutein 300 mcg tablet (Centrum Silver Men) calcium acetate(phosphat bind) 667 667 mg PO TID 10/23/21 06/08/22 Unknown History mg capsule blood pressure test kit-large #1 ea 03/18/22 Unknown History carbidopa 25 mg-levodopa 100 mg 1 tab PO BID 03/18/22 06/08/22 Unknown History tablet hydralazine 10 mg tablet 10 mg PO BID 03/18/22 06/08/22 Unknown History amlodipine 5 mg tablet 5 mg PO BID 06/08/22 06/08/22 Unknown History prednisone 5 mg tablet 5 mg PO DAILY 06/08/22 06/08/22 Unknown History ropinirole 0.25 mg tablet 0.25 mg PO BID 07/05/22 07/05/22 07/04/22 History Exam Exam Date and Time: July 02, 2022 1041 Pertinent Lab Results Pertinent Lab Results: Laboratory Tests 03/23/22 10:30 WBC 6.9 Hgb 10.4 L D Hct 31.7 L Plt Count 205 Narrative Narrative: EKG 06/2022 normal sinus rhythm with occasional PVCs with rightward axis and possible left atrial enlargement.? No suggestion of left ventricular hypertrophy Assessment and Plan Assessment Anesthesia Assessment: Chart Reviewed Final Anesthetic Review Family History of Problems with Anesthesia: No History of Problems with Anesthesia: No
--- NOTE | ~2022-07-05 | FL_ITS ---
EXAMINATION: XR FLUOROSCOPY WITH IMAGES CLINICAL INFORMATION: Bilateral stent replacement. COMPARISON: CT abdomen and pelvis 10/08/2021 TECHNIQUE: Fluoroscopy Supervised By: Dr. Trevor Restrepo. Fluoroscopy Time: 5 seconds. Cumulative Dose: 1.62 mGy. Images: 1. FINDINGS: Fluoroscopic spot view targeted to the central pelvis demonstrates bilateral ureteral stents. FL/FL guidance in OR IMPRESSION: Fluoroscopy for urologic procedures.
[2022-07-05 06:58] VITALS: BMI 27.6
[2022-07-05 07:02] VITALS: BP 165/68; PULSE 65; RESP 18; TEMP 36.1; O2SAT 99; BMI 27.6
[2022-07-05] MEDS: Lactated Ringers 1,000 ML 100 ML IVCONT (07:46)
--- NOTE | 2022-07-05 08:10 | PC.NURSE ---
spoke with Dr. Jackson floor anesthesia MD regarding pt 's c/o restless leg syndrome and request for roperinole 0.25mg po and carbidopa/levodopa 100mg po as at home, to be evaluated, pt aware.
--- NOTE | 2022-07-05 08:32 | MHC.SHP ---
Pre-Procedural Eval Section A Date of Service: 07/05/22 The patient is an INPATIENT: No Changes since office visit: No Cold of Flu in the past 2 weeks, No New Medical Problems, No Changes in Medication and No Patient answered all questions The History & Physical has been completed within 30 days and I have reviewed it.: Yes Section B Chief Complaint: Retention of urine, unspecified Details of Present Illness: bilateral indwelling ureteric stents. Due for stent exchange. Undergoes dialysis for renal failure. Still making urine. Relevant Family History (Specify if Yes): No Relevant Social History: None Present Medications: see Short Stay Collaborative assessment Medical History: Significant History History of Previous Operations: Relevant previous surgery/procedure and date(s) Allergies: Allergies Allergy/AdvReac Type Severity Reaction Status Date / Time No Known Allergies Allergy Verified 07/01/22 13:09 [No Known Allergies*] Review of Systems Sugical H&P ROS: Negative: Constitution, Cardiovascular, Respiratory, Neurological, Psychiatric, Hem-Onc, Allergic/Immunologic, Gastrointestinal, Genitourinary, Musculoskeletal, Integumentary, Endocrine and Eyes/Ears/Nose/Throat Exam Surgical H&P Exam: Normal: HEENT, Normal: Heart, Normal: Lungs, Normal: Extremities, Normal: Abdomen, Normal: Skin and Normal: Neurological Plan Diagnosis/Plan: Unchanged ( Cystoscopy, bilateral stent exchange) I have reviewed the history and physical and performed a pertinent physical examination on my patient. No changes have occurred unless specified.
--- NOTE | 2022-07-05 09:18 | W.PM.OPN ---
Operative Note Operative Note Date of Service: 07/05/22 Narrative: PreOperative Diagnosis:? bilateral hydronephrosis with renal failure Post Operative Diagnosis:? above Procedure:? cystoscopy, bilateral stent exchange Surgeon: Dr Trevor Restrepo Anesthesia:? sedation Indications for procedure: ?62-year-old male on dialysis. J-hooking of ureters with prior retention. Here for Stent exchange. Procedure: After informed consent was verified the patient was brought to the operating room and placed in a supine position. ? anesthesia was administered per protocol. patient was placed in modified dorsal lithotomy position and prepped and draped in sterile fashion.? Safety? pause time-out performed.? Antibiotics being given.? Cystoscopy performed.? Bilateral stents removed. Sensor wire placed on left side. Six Macedonian by 24 cm stent placed. Similar procedure repeated on right side. Stents in good position under fluoroscopy with coil in renal pelvis and in bladder. Patient tolerated procedure well extubated in operating room transferred in stable condition to the ? Recovery area. Pathology: Drains: ?bilateral 6 Macedonian by 24 cm double-J stents
[2022-07-05 09:30] VITALS: BP 91/45; PULSE 53; RESP 16; TEMP 36.3; O2SAT 96
[2022-07-05 09:35] VITALS: BP 108/43; PULSE 58; RESP 16; O2SAT 96
[2022-07-05 09:40] VITALS: BP 122/51; PULSE 56; RESP 16; O2SAT 95
[2022-07-05 09:45] VITALS: BP 127/66; PULSE 60; RESP 16; O2SAT 96
[2022-07-05 10:00] VITALS: BP 108/72; PULSE 59; RESP 16; TEMP 36.3; O2SAT 96
== END 2022-07-05 10:58 | disposition home or self-care (01) ==
PROVIDERS: PCP Registered Nurse; Visit Provider Urology
PROC: (CPT 52332; principal; 2022-07-05 08:40)
DX: N13.30 Unspecified hydronephrosis (principal); I12.0 Hypertensive chronic kidney disease with stage 5 chronic kidney disease or end stage renal disease; N18.6 End stage renal disease; Z99.2 Dependence on renal dialysis; E87.5 Hyperkalemia; N13.9 Obstructive and reflux uropathy, unspecified; C61 Malignant neoplasm of prostate; C79.51 Secondary malignant neoplasm of bone; R79.89 Other specified abnormal findings of blood chemistry; Z79.52 Long term (current) use of systemic steroids; Z79.899 Other long term (current) drug therapy
CPT/HCPCS: 52332; C1758; C1769; C2617; J1956; J2250; J2405; J3010

== ENCOUNTER → 2022-08-06 13:38 | Outpatient (BNVA) | payer MEDICARE, MEDICAID, SELFPAY | PROVIDERS: PCP Registered Nurse; Visit Provider Urology | DX: C61 Malignant neoplasm of prostate (principal); C79.51 Secondary malignant neoplasm of bone; Z79.899 Other long term (current) drug therapy | CPT/HCPCS: 96372; 96402; J0897; J9217 ==

== ENCOUNTER 2022-08-26 12:44 | Outpatient (REF) | payer MEDICARE, MEDICAID, SELFPAY ==
[2022-08-26 13:56] LABS: Ferritin 1399 ng/mL (20-250)
== END 2022-08-26 12:45 | disposition home or self-care (01) ==
LOC: HO.LAB 12:44
PROVIDERS: Visit Provider Psychiatry & Neurology Neurology
DX: G25.81 Restless legs syndrome (principal); D64.9 Anemia, unspecified
CPT/HCPCS: 36415; 82728

== ENCOUNTER 2022-10-15 13:42 | Outpatient (REF) | payer MEDICARE, MEDICAID, SELFPAY ==
[2022-10-15 16:43] LABS: Prostate Specific Antigen 0.19 ng/mL (<0.05-4.0)
[2022-10-20 16:29] LABS: Testosterone, Total 8 ng/dL (250-1100)
== END 2022-10-15 13:43 | disposition home or self-care (01) ==
LOC: HO.LAB 13:42
PROVIDERS: PCP Registered Nurse; Visit Provider Urology
DX: Z12.5 Encounter for screening for malignant neoplasm of prostate (principal); C61 Malignant neoplasm of prostate; C79.51 Secondary malignant neoplasm of bone
CPT/HCPCS: 36415; 84153; 84403

== ENCOUNTER → 2022-11-02 14:30 | Outpatient (BNVA) | payer MEDICARE, MEDICAID, SELFPAY | PROVIDERS: PCP Registered Nurse; Visit Provider Urology | DX: C61 Malignant neoplasm of prostate (principal); C79.51 Secondary malignant neoplasm of bone; G89.3 Neoplasm related pain (acute) (chronic); N13.9 Obstructive and reflux uropathy, unspecified; Z99.2 Dependence on renal dialysis; Z79.620 Long term (current) use of immunosuppressive biologic; Z79.899 Other long term (current) drug therapy | CPT/HCPCS: 99212 ==

== ENCOUNTER → 2022-11-19 10:22 | Outpatient (REF) | payer MEDICARE, MEDICAID, SELFPAY ==
--- NOTE | ~2022-11-19 | NM_ITS ---
EXAMINATION: NM BONE SCAN OF THE WHOLE BODY CLINICAL INFORMATION: Malignant neoplasm of prostate. COMPARISON: Several prior bone scans are available for comparison, the most recent dated 05/11/2022. No recent radiographs are available for comparison. CT scan of the chest dated 04/02/[address] scan of the abdomen and pelvis dated 10/08/2021 are available for comparison. TECHNIQUE: Multiple gamma scintillation camera images of the whole body were performed 3 hours following the intravenous administration of 26 mCi Tc-99m MDP. FINDINGS: In the head, no significant abnormalities are present. In the thoracic cage and upper extremities, there is a mild diffuse increase in activity in both humeral heads, more intensely on the left. There is a subtle photopenic medullary defect in the proximal right humerus suggesting prosthetic or other intramedullary hardware. There is a focus of markedly increased activity in the posterior medial aspect of the right sixth rib and a faint focus of increased activity is present in the posterior medial aspect of the left 11th rib. There is mildly increased activity in the sternoclavicular joints bilaterally. In the spine, a mild thoracolumbar scoliosis with lumbar convexity to the left is noted. There is minimally increased activity in the L4 and L5 vertebra. In the pelvis, no abnormalities are present. In the lower extremities, a photopenic defect from a well-healed right total hip prosthesis is noted. There is increased activity in the patellar compartment of the right knee an diffusely in the left knee, but most intensely in the medial compartment. Foci of mildly increased activity are present in both ankles and the first metatarsophalangeal joints of both feet, but the latter more prominently on the left. In addition to these findings, there is a diffuse increase in activity in the bones compared to the soft tissues, which is abnormal. The urinary bladder and faint visualization of both kidneys are noted, but the intensity of the bladder activity in particular is less than normal. Compared to the previous scan dated 05/11/2022, there has not been a significant change. Prior CT scans, performed before the T106/20/2022 bone scan show several densely sclerotic osseous metastasis but diffuse metastatic disease is not present. One of these dense sclerotic foci is in the posterior medial aspect of the right sixth rib and corresponds well to the bone scan abnormalities at this site on the current and prior bone scans. A healed fracture with callus formation is probably present in the posterior medial aspect of the left 11th rib at the site of the mild bone scan abnormality described above. NM/NM bone scan whole body IMPRESSION: 1. The overall scan appearance with increased contrast between the bones and soft tissues is nonspecific. While this could be due to diffuse metastatic disease, the absence of diffuse metastatic lesions on prior CT scans raises the possibility that these abnormalities are due to hyperparathyroidism or renal osteodystrophy. Correlation with PTH levels is recommended to further characterize these findings. 2. The focal abnormality in the posterior right sixth rib corresponds to a sclerotic CT lesion and is likely a metastasis. 3. Additional dense sclerotic foci on prior CT scans do not show focal abnormalities on this bone scan and may represent healed metastases. 4. An F-18 PSMA (PYLRARIFY) PET/CT scan may be helpful in further characterizing these abnormalities.
== END ==
LOC: HO.NUCMED 10:22
PROVIDERS: PCP Registered Nurse; Visit Provider Urology
DX: C61 Malignant neoplasm of prostate (principal); C79.51 Secondary malignant neoplasm of bone
CPT/HCPCS: 78306; A9503

== ENCOUNTER 2022-12-02 08:01 | Outpatient (REF) | payer MEDICARE, MEDICAID, SELFPAY ==
--- NOTE | ~2022-12-02 | CT_ITS ---
EXAMINATION: CT ABDOMEN AND PELVIS WITHOUT CONTRAST CLINICAL INFORMATION: Prostate cancer COMPARISON: Previous CT September 2021 TECHNIQUE: Multidetector volumetric imaging was performed from the superior aspect of the liver through the pubic symphysis. Sagittal and coronal reformatted images were obtained on the technologist's workstation. This CT examination was performed using dose optimization techniques as appropriate, variously including the following: *Automated exposure control *Adjustment of mA and/or kV according to patient size (this includes techniques or standardized protocols for targeted exams where dose is matched to indication/reason for exam; i.e. extremities or head) *Use of iterative reconstruction technique DLP: 503 mGy-cm FINDINGS: LUNG BASES: There is increased peripheral or subpleural consolidation in the dependent right lower lobe. This is new from previous exam and questionable for pneumonia. The left lung base is clear. The heart is enlarged. There is a trace pericardial effusion or thickening. LIVER, GALLBLADDER, AND BILIARY TREE: The liver is normal in size, shape, and attenuation. No focal hepatic lesion or biliary ductal dilatation is present. The gallbladder is unremarkable with no evidence of radiopaque gallstones, gallbladder wall thickening, or obvious pericholecystic inflammatory changes. PANCREAS: Unremarkable. SPLEEN: Unremarkable. ADRENAL GLANDS: Unremarkable. KIDNEYS AND URETERS: There are bilateral internal ureteral stents in satisfactory position. Mild lateral hydronephrosis and ureteral dilatation. Both kidneys are small. There are small left renal stones. There are small calcifications in the right kidney questionable for vascular calcifications as opposed to stones. There is bilateral perinephric fat stranding. BLADDER: The bladder wall is diffusely thickened. GASTROINTESTINAL TRACT: There is diverticulosis of the colon. Small and large bowel is otherwise unremarkable. The appendix is normal. ABDOMINAL WALL: No significant hernia is appreciated. Subcutaneous cyst in the right buttock measuring centimeters that is stable. LYMPH NODES: There are no enlarged lymph nodes. No ascites. VASCULAR: Severe atherosclerotic disease. No aneurysm. PELVIC VISCERA: The prostate gland does not appear enlarged. OSSEOUS STRUCTURES: Multiple sclerotic bone lesions in the left lower ribs, lower thoracic and lumbar spine and left pelvis including the sacrum and left greater trochanter. These do not appear appreciably changed from most recent exam September 2021. Old trauma to the left iliac crest. Right hip replacement. Degenerative changes of the spine and mild scoliosis. Degenerative changes of the left hip. CT/CT abdomen pelvis wo IV con IMPRESSION: New peripheral or subpleural consolidation in the right lower lobe probably representing pneumonia. Normal size prostate gland. No pelvic mass or lymphadenopathy. Stable sclerotic bone lesions. Atrophic-appearing kidneys. Bilateral internal ureteral stents in satisfactory position. Probable left renal stones and right renal vascular calcifications. Diffuse wall thickening of the bladder. Mild diverticulosis of the colon. Atherosclerotic disease.. Fleischner guidelines were followed.
[2022-12-02] MEDS: Barium Sulfate Oral (Mocha) 450 ML ORAL.SUSP 900 ML PO (10:24)
== END 2022-12-02 08:02 | disposition home or self-care (01) ==
LOC: HO.CT 08:01
PROVIDERS: PCP Registered Nurse; Visit Provider Urology
DX: C61 Malignant neoplasm of prostate (principal); C79.51 Secondary malignant neoplasm of bone; G89.3 Neoplasm related pain (acute) (chronic)
CPT/HCPCS: 74176

== ENCOUNTER → 2022-12-17 10:36 | Outpatient (BNVA) | payer MEDICARE, MEDICAID, SELFPAY | PROVIDERS: PCP Registered Nurse; Visit Provider Urology | DX: N13.30 Unspecified hydronephrosis (principal); C61 Malignant neoplasm of prostate; C79.51 Secondary malignant neoplasm of bone | CPT/HCPCS: 99212 ==

== ENCOUNTER 2023-01-24 12:24 | Day surgery (SDC) | payer MEDICARE, MEDICAID, SELFPAY ==
--- NOTE | 2023-01-21 09:44 | HO.ANESPROP2 ---
Documented by User: Yumi Bethea NP 01/21/23 10:16 HPI - Anesthesia Eval Consult details Narrative: 62yo M for Bilateral Cystoscopy & Stent Exchange ESRD with HD MWF (will be dialyzed AM of procedure) - *NO IV/BP on LEFT* s/p cysto, stent 07/2022 with GA-LMA 4 PMFSH Active Problems Active Problems: All Active Problems (Updated 12/17/22 @ 10:57 by Trevor Restrepo MD) Bilateral hydronephrosis (Acute) HTN (hypertension) (Acute) Creatinine elevation (Acute) Urinary retention (Acute) Hypokalemia (Acute) Anemia in chronic kidney disease (Acute) Acute pyelonephritis (Acute) Hyperkalemia (Acute) Acidosis (Acute) ESRD (end stage renal disease) (Acute) Obstructive uropathy (Acute) Staphylococcus aureus bacteremia (Acute) Prostate cancer (Acute) Prostate cancer metastatic to bone (Acute) Past Medical History Medical History A-V fistula Acute anemia Acute kidney injury Anemia Bilateral hydronephrosis Chronic kidney disease Creatinine elevation Elevated PSA Enlarged prostate Fusion of lumbar spine History of upper gastrointestinal bleeding Hypocalcemia Kidney disease Metabolic acidosis Urinary retention Urinary tract infection Family History Family history of problems with anesthesia: No Surgical History Surgical History History of fusion of cervical spine History of hip replacement, total History of transurethral resection of prostate Hx of esophagogastroduodenoscopy S/P arteriovenous (AV) fistula creation History of Problems with Anesthesia: No Social History Social History Household Members: Other Household Members Other:: sister Housing: House Housing Other:: mobile home Do you presently have visiting nurse or other home services: No Patient Tobacco Use Status: Former Tobacco user Quit Date: 8 years ago Tobacco use type: Cigarette Years Smoked: 30 e-Cigarette/Vaping Use: Former Use Substance Use Type: Marijuana Substance Use Frequency: Daily Are you DNR?: No Advance Directives: No Advance Directives Information Provided: Yes Nutrition Risks: No Nutritional Risk service: No Current occupational status: disabled Meds Allergies Allergy/AdvReac Type Severity Reaction Status Date / Time No Known Allergies Allergy Verified 01/24/23 13:20 [No Known Allergies*] Home Medications Medication Instructions Recorded Confirmed Last Taken Type djzgqxje-knm-vjqar acid 300 1 tab PO DAILY 04/01/21 01/20/23 03/31/21 History mcg-lycopene 600 mcg-lutein 300 mcg tablet (Centrum Silver Men) calcium acetate(phosphat bind) 667 667 mg PO TID 10/23/21 01/20/23 Unknown History mg capsule blood pressure test kit-large #1 ea 03/18/22 12/17/22 Unknown History carbidopa 25 mg-levodopa 100 mg 1 tab PO BID 03/18/22 01/20/23 Unknown History tablet hydralazine 10 mg tablet 10 mg PO BID 03/18/22 01/20/23 Unknown History prednisone 5 mg tablet 5 mg PO DAILY 06/08/22 01/20/23 Unknown History ropinirole 0.25 mg tablet 0.25 mg PO BID 07/05/22 01/20/23 07/04/22 History amlodipine 10 mg tablet 10 mg PO DAILY 12/17/22 01/20/23 Unknown History Exam Exam Date and Time: January 21, 2023 0944 Pertinent Lab Results Pertinent Lab Results: CBC 12/2022 WBC 8.6 Hgb 8.1 (L) Hct 25 (L) Plt 271 Assessment and Plan Assessment Anesthesia Assessment: Chart Reviewed Final Anesthetic Review Family History of Problems with Anesthesia: No History of Problems with Anesthesia: No Documented by User: Jean Paul Ojeda MD 01/24/23 15:36 [facility] Past Medical History Medical History A-V fistula Acute anemia Acute kidney injury Anemia Bilateral hydronephrosis Chronic kidney disease Creatinine elevation Elevated PSA Enlarged prostate Fusion of lumbar spine History of upper gastrointestinal bleeding Hypocalcemia Kidney disease Metabolic acidosis Urinary retention Urinary tract infection Surgical History Surgical History History of fusion of cervical spine History of hip replacement, total History of transurethral resection of prostate Hx of esophagogastroduodenoscopy S/P arteriovenous (AV) fistula creation Social History Social History Household Members: Other Household Members Other:: sister Housing: House Housing Other:: mobile home Do you presently have visiting nurse or other home services: No Patient Tobacco Use Status: Former Tobacco user Quit Date: 8 years ago Tobacco use type: Cigarette Years Smoked: 30 e-Cigarette/Vaping Use: Former Use Substance Use Type: Marijuana Substance Use Frequency: Daily Are you DNR?: No Advance Directives: No Advance Directives Information Provided: Yes Nutrition Risks: No Nutritional Risk service: No Current occupational status: disabled Meds Allergies Allergy/AdvReac Type Severity Reaction Status Date / Time No Known Allergies Allergy Verified 01/24/23 13:20 [No Known Allergies*] Home Medications Medication Instructions Recorded Confirmed Last Taken Type hzngheij-cig-vvywd acid 300 1 tab PO DAILY 04/01/21 01/20/23 03/31/21 History mcg-lycopene 600 mcg-lutein 300 mcg tablet (Centrum Silver Men) calcium acetate(phosphat bind) 667 667 mg PO TID 10/23/21 01/20/23 Unknown History mg capsule blood pressure test kit-large #1 ea 03/18/22 12/17/22 Unknown History carbidopa 25 mg-levodopa 100 mg 1 tab PO BID 03/18/22 01/20/23 Unknown History tablet hydralazine 10 mg tablet 10 mg PO BID 03/18/22 01/20/23 Unknown History prednisone 5 mg tablet 5 mg PO DAILY 06/08/22 01/20/23 Unknown History ropinirole 0.25 mg tablet 0.25 mg PO BID 07/05/22 01/20/23 07/04/22 History amlodipine 10 mg tablet 10 mg PO DAILY 12/17/22 01/20/23 Unknown History Exam Airway Mallampati Class: II TM Dist: >3cm Neck ROM: Limited Heart: rrr Lungs: cta Assessment and Plan Assessment Anesthesia Assessment: Anesthesia Plan Discussed Final Anesthetic Review NPO: Yes ASA Class: III Final Preanesthetic Review: No Changes in Pt Med Stat, Meds/Allgs Chart Reviewed, Consent Obtained/Reviewed and Anes Risks/Benef Reviewed Patient Risk: Intermediate Procedure Risk: Intermediate Anesthetic Plan Anesthetic Plan: GA and Agree w/ Assess. and Plan Disposition: Standard PACU
--- NOTE | ~2023-01-24 | FL_ITS ---
EXAMINATION: XR FLUOROSCOPY WITH IMAGES CLINICAL INFORMATION: Bilateral stent exchange. COMPARISON: None available. TECHNIQUE: Fluoroscopy Supervised By: . Fluoroscopy Time: 13.0 seconds. Cumulative Dose: 3.33 mGy. DAP: Gycm2. Images: 3. FINDINGS: First image demonstrates wire projecting over the right renal collecting system and ureter. Second image demonstrates the proximal end of a right internal ureteral stent. There image demonstrates left internal ureteral stent. FL/FL guidance in OR IMPRESSION: Fluoroscopy guidance for urology procedure
[2023-01-24 12:55] VITALS: BMI 29.2
[2023-01-24] MEDS: 0.9 % Sodium Chloride 1,000 ML 50 ML IVCONT (13:00)
[2023-01-24 13:19] VITALS: BP 155/69; PULSE 74; RESP 18; TEMP 36.6; O2SAT 96
[2023-01-24 13:32] LABS: Anion Gap 13 (12-20); Carbon Dioxide 33 mmol/L (22-29); Chloride 93 mmol/L (96-108); Potassium 3.4 mmol/L (3.3-5.1); Sodium 136 mmol/L (135-145)
--- NOTE | 2023-01-24 13:57 | HO.ANESPROP2 ---
[facility] Active Problems Active Problems: All Active Problems (Updated 12/17/22 @ 10:57 by Trevor Restrepo MD) Bilateral hydronephrosis (Acute) HTN (hypertension) (Acute) Creatinine elevation (Acute) Urinary retention (Acute) Hypokalemia (Acute) Anemia in chronic kidney disease (Acute) Acute pyelonephritis (Acute) Hyperkalemia (Acute) Acidosis (Acute) ESRD (end stage renal disease) (Acute) Obstructive uropathy (Acute) Staphylococcus aureus bacteremia (Acute) Prostate cancer (Acute) Prostate cancer metastatic to bone (Acute) Past Medical History Medical History A-V fistula Acute anemia Acute kidney injury Anemia Bilateral hydronephrosis Chronic kidney disease Creatinine elevation Elevated PSA Enlarged prostate Fusion of lumbar spine History of upper gastrointestinal bleeding Hypocalcemia Kidney disease Metabolic acidosis Urinary retention Urinary tract infection Family History Family history of problems with anesthesia: No Surgical History Surgical History History of fusion of cervical spine History of hip replacement, total History of transurethral resection of prostate Hx of esophagogastroduodenoscopy S/P arteriovenous (AV) fistula creation History of Problems with Anesthesia: No Social History Social History Household Members: Other Household Members Other:: sister Housing: House Housing Other:: mobile home Do you presently have visiting nurse or other home services: No Patient Tobacco Use Status: Former Tobacco user Quit Date: 8 years ago Tobacco use type: Cigarette Years Smoked: 30 e-Cigarette/Vaping Use: Former Use Substance Use Type: Marijuana Substance Use Frequency: Daily Are you DNR?: No Advance Directives: No Advance Directives Information Provided: Yes Nutrition Risks: No Nutritional Risk service: No Current occupational status: disabled Meds Allergies Allergy/AdvReac Type Severity Reaction Status Date / Time No Known Allergies Allergy Verified 01/24/23 13:20 [No Known Allergies*] Active Medications: Current Medications Sodium Chloride (Ns) 1,000 mls @ 50 mls/hr IVCONT .Q20H FREIDA Last Admin: 01/24/23 13:00 Dose: 50 mls/hr Home Medications Medication Instructions Recorded Confirmed Last Taken Type ridvbztb-yvc-acoar acid 300 1 tab PO DAILY 09/08/2101/20/23 03/31/21 History mcg-lycopene 600 mcg-lutein 300 mcg tablet (Centrum Silver Men) calcium acetate(phosphat bind) 667 667 mg PO TID 10/23/21 01/20/23 Unknown History mg capsule blood pressure test kit-large #1 ea 03/18/22 12/17/22 Unknown History carbidopa 25 mg-levodopa 100 mg 1 tab PO BID 03/18/22 01/20/23 Unknown History tablet hydralazine 10 mg tablet 10 mg PO BID 03/18/22 01/20/23 Unknown History prednisone 5 mg tablet 5 mg PO DAILY 06/08/22 01/20/23 Unknown History ropinirole 0.25 mg tablet 0.25 mg PO BID 07/05/22 01/20/23 07/04/22 History amlodipine 10 mg tablet 10 mg PO DAILY 12/17/22 01/20/23 Unknown History Exam Exam Date and Time: January 24, 2023 1357 Height,Weight and Vital Signs: Height 5 ft 3 in Weight 74.843 kg Last Vital Signs Temp 97.9 F 01/24/23 13:19 Pulse 74 01/24/23 13:19 Resp 18 01/24/23 13:19 BP 155/69 H 01/24/23 13:19 Pulse Ox 96 01/24/23 13:19 O2 Del Method Room Air 01/24/23 13:19 Pertinent Lab Results Pertinent Lab Results: Laboratory Tests 01/24/23 13:02 Sodium 136 Potassium 3.4 Chloride 93 L Carbon Dioxide 33 H Anion Gap 13 Assessment and Plan Final Anesthetic Review Family History of Problems with Anesthesia: No History of Problems with Anesthesia: No
--- NOTE | 2023-01-24 14:35 | PC.NURSE ---
report given to tricia lowery rn at this time. aware that order and antibiotic (if needed) are not completed yet by dr. lozada.
--- NOTE | 2023-01-24 14:37 | PC.NURSE ---
IV placed in sss. flushed well. report given to tricia lowery rn to attach NS auto inspection specialist to OR. patient completed dialysis this a.m. lab report from [facility] lab draw reviewed by dr. romero when completing anesthesia consent.
--- NOTE | 2023-01-24 16:20 | MHC.SHP ---
Pre-Procedural Eval Section A Date of Service: 01/24/23 The patient is an INPATIENT: No Changes since office visit: No Cold of Flu in the past 2 weeks, No New Medical Problems, No Changes in Medication and No Patient answered all questions The History & Physical has been completed within 30 days and I have reviewed it.: No Section B Chief Complaint: Unspecified hydronephrosis Details of Present Illness: bilateral hydronephrosis Relevant Family History (Specify if Yes): No Relevant Social History: None Present Medications: see Short Stay Collaborative assessment Medical History: Significant History History of Previous Operations: Relevant previous surgery/procedure and date(s) Allergies: Allergies Allergy/AdvReac Type Severity Reaction Status Date / Time No Known Allergies Allergy Verified 01/24/23 13:20 [No Known Allergies*] Review of Systems Sugical H&P ROS: Negative: Constitution, Cardiovascular, Respiratory, Neurological, Psychiatric, Hem-Onc, Allergic/Immunologic, Gastrointestinal, Genitourinary, Musculoskeletal, Integumentary, Endocrine and Eyes/Ears/Nose/Throat Exam Surgical H&P Exam: Normal: HEENT, Normal: Heart, Normal: Lungs, Normal: Extremities, Normal: Abdomen, Normal: Skin and Normal: Neurological Plan Diagnosis/Plan: Unchanged ( cystoscopy, bilateral stent exchange) I have reviewed the history and physical and performed a pertinent physical examination on my patient. No changes have occurred unless specified. Time Spent With Patient Time: Total time managing care of this patient today ____ minutes.
[2023-01-24 17:05] VITALS: BP 133/69; PULSE 87; RESP 16; TEMP 36.4; O2SAT 94
[2023-01-24 17:10] VITALS: BP 146/74; PULSE 81; RESP 16; O2SAT 94
[2023-01-24 17:15] VITALS: BP 140/65; PULSE 73; RESP 16; O2SAT 94
[2023-01-24 17:20] VITALS: BP 155/69; PULSE 74; RESP 18; TEMP 36.4; O2SAT 94
[2023-01-24 17:30] VITALS: BP 156/70; PULSE 73; RESP 18; O2SAT 94
--- NOTE | 2023-01-24 17:42 | P.OP_ITS ---
Operative Note Operative Note Date of Service: 01/24/23 Narrative: PreOperative Diagnosis:? bilateral hydronephrosis with renal failure Post Operative Diagnosis:? above Procedure:? cystoscopy, bilateral stent exchange Surgeon: Dr Trevor Restrepo Anesthesia:? sedation Indications for procedure: ?62-year-old male? on dialysis.? ? J-hooking of ureters with prior retention.? Here for ? Stent exchange. Procedure: After informed consent was verified the patient was brought to the operating room and placed in a supine position. ? anesthesia was administered per protocol. patient was placed in modified dorsal lithotomy position and prepped and draped in sterile fashion.? Safety? pause time-out performed.? Antibiotics being given.? Cystoscopy performed.? Sensor wire placed on left side.? Stent removed. Six Montenegrin by 26 cm stent placed.? Similar procedure repeated on right side.? Stents in good position under fluoroscopy with coil in renal pelvis and in bladder. Patient tolerated procedure well extubated in operating room transferred in stable condition to the ? Recovery area. Pathology: Drains: ?bilateral 6 Montenegrin by 26 cm double-J stents
== END 2023-01-24 17:45 | disposition home or self-care (01) ==
PROVIDERS: Nurse Practitioner; PCP Registered Nurse; Visit Provider Urology
PROC: (CPT 52310; principal; 2023-01-24 14:00)
DX: N13.30 Unspecified hydronephrosis (principal); N18.9 Chronic kidney disease, unspecified; Z99.2 Dependence on renal dialysis; C61 Malignant neoplasm of prostate; C79.51 Secondary malignant neoplasm of bone; N40.1 Benign prostatic hyperplasia with lower urinary tract symptoms; R33.8 Other retention of urine; R79.89 Other specified abnormal findings of blood chemistry; E83.51 Hypocalcemia; Z79.52 Long term (current) use of systemic steroids; Z79.899 Other long term (current) drug therapy; Z87.891 Personal history of nicotine dependence
CPT/HCPCS: 52332; 36415; 80051; C1758; C1769; C2617; J1956; Q9967

== ENCOUNTER 2023-02-11 10:18 | Outpatient (REF) | payer MEDICARE, MEDICAID, SELFPAY ==
[2023-02-11 12:39] LABS: Prostate Specific Antigen 0.14 ng/mL (<0.05-4.0)
[2023-02-16 13:54] LABS: Testosterone, Total 5 ng/dL (250-1100)
== END 2023-02-11 10:19 | disposition home or self-care (01) ==
LOC: HO.LAB 10:18
PROVIDERS: Visit Provider Urology
DX: Z12.5 Encounter for screening for malignant neoplasm of prostate (principal); C61 Malignant neoplasm of prostate; C79.51 Secondary malignant neoplasm of bone
CPT/HCPCS: 36415; 84153; 84403

== ENCOUNTER 2023-02-24 10:35 | Outpatient (AMB) | payer MEDICARE, MEDICAID, SELFPAY ==
--- NOTE | 2023-02-24 10:37 | A.OFFVIS_ITS ---
Intake Intake Visit Reasons: GnRH Prolia/labs(pending) Intake Note: Patient is present for Follow Up labs/Prolia/Eligard Injection Urology Med: Prolia/Eligard/Abiraterone Antibiotic Allergy:None Blood Thinner: None Allergies No Known Allergies [No Known Allergies*] Allergy (Verified 02/24/23 10:40) HPI HPI Comments History of Present Illness Details Darwin is a pleasant male. He is a patient of Dr. Whitmore. He is seen for the following urologic issues - urinary retention with elevated creatinine - prostate cancer Continue 3 month review Target 3 years hormone therapy then reduction to intermittent anti-androgen 02/20 GnRH, abiraterone 01/21 CT shows stable metastatic prostate cancer Bilateral ureteric stents last changed 01/21 Labs - PSA 0.2 T <1, 10/21 0.19 T 8, 02/20 0.1 5 Urinary retention Bilateral ureteric stents, bilateral PCN Last stent exchange 07/22 Incomplete bladder emptying Currently on dialysis Prostate cancer grade group 5 with metastatic disease - last GnRH 08/2022 - Current therapy GnRH with antiandrogen 02/20 GnRH with abiraterone - GnRH Prolia administered 08/23 GnRH therapy with abiraterone - GnRH and Prolia administered 01/20 GnRH therapy with abiraterone - GnRH and Prolia administered 04/21 - PSA 23 Prostate biopsy 06/21 Histologic type: Adenocarcinoma, acinar type Histologic grade: Seaman score: - 5+4=9 (right apex), 4+5=9 (left mid, right mid), 4+4=8 (left apex), 4+3=7 (left base, right base) Number cores positive: 6 Total number of cores: 6 % of tissue involved: Greater than 95% Periprostatic fat inv.: Present Seminal vesicle inv.: Not identified Perineural inv.: Present LVI: Suspicious Staging - May 2021 - bone scan and CT scan with metastatic disease - 10/20 CT with sclerotic lesions spinal - 05/22 Bone Scan positive extensive spine - 11/21 CT scan - sclerotic lesions stable, stents in place PFSH Medical History A-V fistula Acute anemia Acute kidney injury Anemia Bilateral hydronephrosis Chronic kidney disease Creatinine elevation Elevated PSA Enlarged prostate Fusion of lumbar spine History of upper gastrointestinal bleeding Hypocalcemia Kidney disease Metabolic acidosis Urinary retention Urinary tract infection Surgical History History of fusion of cervical spine History of hip replacement, total History of transurethral resection of prostate Hx of esophagogastroduodenoscopy S/P arteriovenous (AV) fistula creation Social History Household Members: Other Household Members Other:: sister Housing: House Housing Other:: mobile home Do you presently have visiting nurse or other home services: No Patient Tobacco Use Status: Former Tobacco user Quit Date: 8 years ago Tobacco use type: Cigarette Years Smoked: 30 e-Cigarette/Vaping Use: Former Use Substance Use Type: Marijuana service: No Current occupational status: disabled Review of Systems Const Denies chills and Denies fever(s) Card Reports no additional complaints and Denies syncope Resp Denies cough GI Denies abdominal pain and Denies heartburn Reports as per HPI and Denies change in libido Neuro Denies syncope Psych Denies change in libido Endo Denies change in libido Physical Exam Const General: cooperative, healthy appearing, comfortable and no acute distress Orientation/consciousness: patient oriented x3 HEENT Face and sinus: Yes normal facial exam Mouth: moist mucous membranes Neck Neck: Yes normal visual inspection, Yes full ROM and Yes trachea midline Chest Chest palpation & inspection: normal inspection of the chest Resp Effort & Inspection: normal respiratory effort, able to speak in complete sentences and no respiratory distress GI Inspection: Yes normal to inspection Back/Spine/Pelvis Cervical Spine: normal cervical lordosis Thoracic/Lumbar Spine: thoracic and lumbar spine normal to inspection Skin General skin exam: no rashes or lesions noted Neuro General: patient oriented x3, gait normal, tone normal and moves all extremities Extrem General: Yes normal to inspection and Yes capillary refill normal Office Meds Prolia Performing Provider: Trevor Restrepo MD Administered by: Yisel Haas RN on 02/24/23 10:58 Dose Route Admin Location Lot Number Expiration Date [employer] 60 mg subcut left arm [id number] 03/31/25 92682-115-59 [facility] Eligard (6 month) Performing Provider: Trevor Restrepo MD Administered by: Yisel Haas RN on 02/24/23 10:58 Dose Route Admin Location Lot Number Expiration Date [employer] 45 mg subcut right arm [id number] 06/01/24 53476-592-57 [employer]. Assessment & Plan Assessment & Plan (1) Prostate cancer metastatic to bone: Comment: 05/2021 - Grade Group 5 Code(s): C61 - Malignant neoplasm of prostate; C79.51 - Secondary malignant neoplasm of bone Plan Continue surveillance Orders: Orders 2 AMB Leuprolide Injection - Practice Supplied Today C61 - Malignant neoplasm of prostate AMB Denosumab Injection Practice Supplied Today C61 - Malignant neoplasm of prostate, C79.51 - Secondary malignant neoplasm of bone Patient Instructions: Imaging studies, laboratory and physical exam results were discussed and reviewed in detail. No major barriers to patient understanding were identified. An opportunity to ask questions regarding the treatment plan was provided. All questions were answered. The patient expressed understanding and agreement with the above treatment plan. The patient is aware they should contact our office by phone for worsening of their current condition or the appearance of new urologic symptoms. Compliance is encouraged with any medications and followup testing that is ordered. It is a privilege to participate in the urologic care of your patient. If you have any questions or concerns regarding treatment for the above conditions, or other urologic issues, please do not hesitate to contact me. The office telephone contact is [phone]. This note is constructed using voice recognition software. While every effort has been made to ensure accuracy restrike hammer operator errors may have been included. Yours sincerely, Dr Trevor Restrepo MD, [facility] - Urology Providers of Expert, Compassionate Care for the Genitourinary System Coding Level of Care Code Est Pt Level 3 (30288) Diagnoses Prostate cancer metastatic to bone C61; C79.51
== END 2023-02-24 11:07 | disposition home or self-care (01) ==
PROVIDERS: Visit Provider Urology
DX: C61 Malignant neoplasm of prostate (principal); C79.51 Secondary malignant neoplasm of bone
CPT/HCPCS: 99213

== ENCOUNTER → 2023-02-24 10:35 | Outpatient (BNVA) | payer MEDICARE, MEDICAID, SELFPAY | PROVIDERS: Visit Provider Urology | DX: C61 Malignant neoplasm of prostate (principal); C79.51 Secondary malignant neoplasm of bone; R94.4 Abnormal results of kidney function studies; R33.8 Other retention of urine; Z96.0 Presence of urogenital implants; Z79.620 Long term (current) use of immunosuppressive biologic; Z79.818 Long term (current) use of other agents affecting estrogen receptors and estrogen levels | CPT/HCPCS: 96372; 96402; 99212; J0897; J9217 ==

== ENCOUNTER 2023-03-15 08:15 | Outpatient (AMB) | payer MEDICARE, MEDICAID, SELFPAY ==
--- NOTE | 2023-03-15 10:09 | A.OFFVIS_ITS ---
Intake Intake Visit Reasons: Add-On fistulagram per [facility] Intake Note: Patient is here for a add-on fistulagram per [facility], Allergies No Known Allergies [No Known Allergies*] Allergy (Verified 02/24/23 10:40) HPI Add-On fistulagram per [facility] HPI Details Pleasant 63-year-old gentleman presents for follow-up regarding his left upper extremity fistula. It was a left upper extremity basilic vein transposition that was originally placed back on 08/03/2021. Been functioning fairly well. He of note had a fistulogram performed on 03/23/2022 which had to have plasty of the outflow tract x2. More recently he has been having bleeding and to events of infiltration during cannulation. There has been excessive bleeding after removal of the cannula. He now presents for follow-up regarding his fistula. Of note his current dialysis days are Tuesday at [facility] on [address] [place] [address] Medical History A-V fistula Acute anemia Acute kidney injury Anemia Bilateral hydronephrosis Chronic kidney disease Creatinine elevation Elevated PSA Enlarged prostate Fusion of lumbar spine History of upper gastrointestinal bleeding Hypocalcemia Kidney disease Metabolic acidosis Urinary retention Urinary tract infection Surgical History History of fusion of cervical spine History of hip replacement, total History of transurethral resection of prostate Hx of esophagogastroduodenoscopy S/P arteriovenous (AV) fistula creation Social History Household Members: Other Household Members Other:: sister Housing: House Housing Other:: mobile home Do you presently have visiting nurse or other home services: No Patient Tobacco Use Status: Former Tobacco user Quit Date: 8 years ago Tobacco use type: Cigarette Years Smoked: 30 e-Cigarette/Vaping Use: Former Use Substance Use Type: Marijuana service: No Current occupational status: disabled Review of Systems Const All systems reviewed & are unremarkable except as noted in HPI and below Reports no additional complaints ENT Reports Normal hearing present Card Denies chest pain, Denies chest pain at rest, Denies chest pain with activity and Denies pedal edema Resp Denies cough GI Denies abdominal pain Musc Denies abnormal gait, Denies muscle cramps and Denies radiating pain into limb Skin/Breast Denies skin ulcer and Denies wounds Neuro Reports Normal hearing present and Denies abnormal gait Psych Reports no additional complaints Physical Exam Const General: cooperative, healthy appearing and comfortable Orientation/consciousness: oriented to person, oriented to place and oriented to time HEENT Head: Yes normal to inspection Neck Neck: Yes normal visual inspection Carotids: no bruits Chest Chest palpation & inspection: normal inspection of the chest Resp Effort & Inspection: normal respiratory effort and able to speak in complete sentences Auscultation: clear to auscultation bilaterally, no crackles, no rales, no rhonchi and no wheezes Cardio Rate: regular rate Rhythm: regular rhythm Heart sounds: S1 normal heart sound present and S2 normal heart sound present Bruits: no carotid bruits Peripheral pulses: Peripheral pulses 2+ throughout GI Inspection: Yes normal to inspection Skin Other: Left arm pulsatile flow Wounds: no wounds Hair: normal Neuro General: oriented to person, oriented to place and oriented to time Cranial nerves: Yes CN's II-XII intact bilaterally and Yes Normal hearing present Cognition (Neuro): normal cognition Motor exam (neuro): 5/5 motor strength present throughout Extrem Other: venous exam: No significant superficial varicosities or spider telangiectasias, minimal edema General: No clubbing, No cyanosis and No edema Psych Appearance: grossly normal Mental Status: mental status grossly normal Speech and movement: Normal speech and movement present Assessment & Plan Assessment & Plan (1) ESRD (end stage renal disease): Comment: 08/03/2021 - left arm basilic vein transposition 03/23/2022 - left are fistulogram with plasty x2 Code(s): N18.6 - End stage renal disease Plan: Patient poorly functioning dialysis access. Patient does have pulsatile flow throughout the fistula. the patient would benefit from a left arm fistulogram with possible angioplasty, stent, and/or atherectomy. This has been discussed in detail with the patient along with risks, benefits, and complications. This includes but is not limited to bleeding, infection, heart attack, need for emergent surgical repair, limb ischemia, blood vessel damage, bleeding, puncture, kidney injury, bruising, allergic reaction, and skin reaction. The patient demonstrates a clear understanding. We will schedule for the next appropriate time. Thank you for allowing us to assist in this patient's care. Coding Level of Care Code Est Pt Level 4 (45048) Diagnoses ESRD (end stage renal disease) N18.6
== END 2023-03-15 11:01 | disposition home or self-care (01) ==
PROVIDERS: PCP Registered Nurse; Visit Provider Surgery Vascular Surgery
DX: N18.6 End stage renal disease (principal); I77.0 Arteriovenous fistula, acquired
CPT/HCPCS: 99214

== ENCOUNTER → 2023-03-15 08:15 | Outpatient (BNVA) | payer MEDICARE, MEDICAID, SELFPAY | PROVIDERS: PCP Registered Nurse; Visit Provider Surgery Vascular Surgery | DX: N18.6 End stage renal disease (principal) | CPT/HCPCS: 99212 ==

== ENCOUNTER 2023-03-16 06:02 | Day surgery (SDC) | payer MEDICARE, MEDICAID, SELFPAY ==
[2023-03-16 06:31] VITALS: BMI 27.1
[2023-03-16 06:34] LABS: MANUAL DIFF FLAG NO
[2023-03-16 06:36] LABS: Basophils Absolute Auto 0.1 X10*3/uL (0.0-0.2); Basophils Percent Auto 0.6 % (0-2); Eosinophils Absolute Auto 0.4 X10*3/uL (0.0-0.4); Eosinophils Percent Auto 3.9 % (0-4); Hemoglobin 7.6 g/dl (14.0-18.0); Imm Gran Abs Auto 0.08 X10*3/uL (0.00-0.03); Imm Gran Pct Auto 0.8 % (0.0-0.4); Lymphocytes Absolute Auto 1.1 X10*3/uL (1.2-4.9); Lymphocytes Percent Auto 11.8 % (20-40); Mean Corpuscular Hemoglobin 26.6 pg (27.0-33.0); Mean Corpuscular Volume 80.4 fL (80.0-98.0); Mean Platelet Volume 9.4 fL (9.4-12.4); Monocytes Absolute Auto 0.6 X10*3/uL (0.1-1.2); Monocytes Percent Auto 5.9 % (2-11); Neutrophils Absolute Auto 7.4 x10*3/uL (2.0-8.3); Platelet Count 282 X10*3/uL (160-400); Red Blood Count 2.86 X10*6/uL (4.60-5.80); White Blood Count 9.6 X10*3/uL (4.8-10.8)
[2023-03-16 06:59] LABS: Anion Gap 17 (12-20); Blood Urea Nitrogen 54 mg/dL (9-16); Calcium 7.5 mg/dL (8.4-10.2); Carbon Dioxide 25 mmol/L (22-29); Chloride 95 mmol/L (96-108); Creatinine Clr Calc Pharmacy 9.7; Estimated Glomerular Filt Rate 8; Glucose Random 127 mg/dL (60-115); Potassium 4.3 mmol/L (3.3-5.1); Sodium 133 mmol/L (135-145)
[2023-03-16 09:20] VITALS: BP 155/68; PULSE 75; RESP 16; TEMP 36.7; O2SAT 95
--- NOTE | 2023-03-16 09:33 | P.OP_ITS ---
Operative Note Operative Note Date of Service: 03/16/23 Narrative: Angiogram report from [facility] Preoperative diagnosis: End-stage renal disease Postoperative diagnosis: Same Procedure: 1. Ultrasound-guided left arm fistula access 2. Fistulagram 3. Outflow tract plasty Surgeon:Humberto Blackburn M.D., FACS, RPVI Environmental Tech:None Anesthesia: Local only Specimens:none Drains:none Estimated blood loss: Less than 10 ml Implant: [employer] Impact DCB 8 x 40. Indications: 63-year-old gentleman with end-stage renal disease. He had a basilic vein transposition in August of 2021. Most recently he had increased bleeding and poor cannulation of the fistula. He now presents for endovascular intervention. The patient has signed the informed consent after reviewing risks, complications, benefits, and alternatives previously discussed with the patient. The patient was given the opportunity to ask any additional questions or voice any concerns. All questions were answered to the patient's satisfaction. Procedure in detail: Patient was brought to the angiography suite prior to which a time-out was called for patient identification and site verification. Left arm was prepped and draped in standard surgical fashion. Under ultrasound guidance left arm fistula was accessed. The area was infiltrated with local 1st. We used a micro puncture needle wire and subsequently my 4 Paraguayan micropuncture sheath. Once this was in position through this fistulogram was then undertaken. We noticed 2 stenotic areas in the outflow tract and no central venous stenosis was noted. At this time we exchanged out for a 6 [place]aguayan sheath. We then administered 3000 units of systemic heparin. After 5 minutes of circulation time we 1st plasty did the 2 stenotic areas in the outflow tract with a 6 x 30 balloon. We then at plasty these areas with an 8 x 40 drug coated balloon. Both areas were done individually with 2 separate balloons. The balloons were brought into position in under 3 minutes and insufflated for a total of 3 minutes in duration. Once this was accomplished completion fistulogram showed an excellent result. We removed the sheath and a 2 0 Prolene was used to close the puncture site. Adequate hemostasis was achieved. Patient tolerated the procedure well. Returned to recovery with stable vitals. Interpretation of films: 1. Ultrasound demonstrates appropriate fistula puncture. Image of which was saved. 2. Fistulogram demonstrated 2 stenotic areas in the outflow tract with no central venous stenosis. In addition the fistula was compressed and we reflux contrast on to the arterial anastomosis. There was nose arterial stenosis noted as well. 3. Completion angiogram demonstrated excellent flow through the outflow tract. Conclusion: 1. Successful plasty of fistula outflow tract. 2. Anticoagulation status: No change This note is constructed using voice recognition software. While every effort has been made to ensure accuracy, shoe fitter errors may have been included. Thank you for allowing me to participate in the care of your patient. Yours sincerely, Humberto Blackburn MD, FACS, R.P.V.I.
[2023-03-16 09:35] VITALS: BP 163/78; PULSE 72; RESP 16; O2SAT 97
[2023-03-16 09:50] VITALS: BP 151/71; PULSE 75; RESP 18; TEMP 36.7; O2SAT 96
== END 2023-03-16 10:13 | disposition home or self-care (01) ==
PROVIDERS: PCP Registered Nurse; Visit Provider Surgery Vascular Surgery
DX: T82.858A Stenosis of other vascular prosthetic devices, implants and grafts, initial encounter (principal); N18.6 End stage renal disease; Y83.2 Surgical operation with anastomosis, bypass or graft as the cause of abnormal reaction of the patient, or of later complication, without mention of misadventure at the time of the procedure
CPT/HCPCS: 36415; 36901; 36902; 76937; 80048; 85025; C1725; C1769; C1893; C1894; J1643; J2250; J3010; Q9967

== ENCOUNTER → 2023-03-16 06:02 | Outpatient (BNV) | payer MEDICARE, MEDICAID, SELFPAY | PROVIDERS: PCP Registered Nurse; Visit Provider Surgery Vascular Surgery | DX: I77.0 Arteriovenous fistula, acquired (principal); Z49.01 Encounter for fitting and adjustment of extracorporeal dialysis catheter; N18.6 End stage renal disease | CPT/HCPCS: 36902; 76937 ==

== ENCOUNTER 2023-03-31 12:33 | Outpatient (AMB) | payer MEDICARE, MEDICAID, SELFPAY ==
[2023-03-31 12:56] VITALS: BMI 27.1
--- NOTE | 2023-03-31 12:56 | MHC.OFFVIS ---
Intake Vital Signs 03/31/23 12:56 Height 5 ft 3 in Weight 153 lb BMI 27.1 Intake Visit Reasons: 2 week follow up left arm fistulagram Intake Note: 2 week follow up Left arm fistula, has stitch in that needs removal. Of note pt had a fall yesterday and cut his right arm Accompanied by: Self / Same As Patient Allergies No Known Allergies [No Known Allergies*] Allergy (Verified 03/31/23 13:00) HPI 2 week follow up left arm fistulagram HPI Details Very pleasant 63-year-old gentleman presents for follow-up status post left upper extremity fistulogram. He had episodes of bleeding and port cannulation. He has undergone left upper extremity outflow tract plasty. It appears to be doing extremely well since that time. He has had no incidence since that time. They have been using the fistula successfully. [facility] Medical History (Updated 03/31/23 @ 15:47 by Humberto Blackburn MD) A-V fistula Acute anemia Acute kidney injury Anemia Bilateral hydronephrosis Chronic kidney disease Creatinine elevation Elevated PSA Enlarged prostate Fusion of lumbar spine History of upper gastrointestinal bleeding Hypocalcemia Kidney disease Metabolic acidosis Urinary retention Urinary tract infection Surgical History History of fusion of cervical spine History of hip replacement, total History of transurethral resection of prostate Hx of esophagogastroduodenoscopy S/P arteriovenous (AV) fistula creation Social History Household Members: Other Household Members Other:: sister Housing: House Housing Other:: mobile home Do you presently have visiting nurse or other home services: No Patient Tobacco Use Status: Former Tobacco user Quit Date: 8 years ago Tobacco use type: Cigarette Years Smoked: 30 e-Cigarette/Vaping Use: Former Use Substance Use Type: Marijuana service: No Current occupational status: disabled Review of Systems Const All systems reviewed & are unremarkable except as noted in HPI and below Reports no additional complaints ENT Reports Normal hearing present Card Denies chest pain, Denies chest pain at rest, Denies chest pain with activity and Denies pedal edema Resp Denies cough GI Denies abdominal pain Musc Denies abnormal gait, Denies muscle cramps and Denies radiating pain into limb Skin/Breast Denies skin ulcer and Denies wounds Neuro Reports Normal hearing present and Denies abnormal gait Psych Reports no additional complaints Physical Exam Vital Signs: BMI result Body Mass Index 27.1 Const General: cooperative, healthy appearing and comfortable Orientation/consciousness: oriented to person, oriented to place and oriented to time HEENT Head: Yes normal to inspection Neck Neck: Yes normal visual inspection Carotids: no bruits Chest Chest palpation & inspection: normal inspection of the chest Resp Effort & Inspection: normal respiratory effort and able to speak in complete sentences Auscultation: clear to auscultation bilaterally, no crackles, no rales, no rhonchi and no wheezes Cardio Other: Left upper extremity fistula excellent thrill and bruit. Sutures removed. Rate: regular rate Rhythm: regular rhythm Heart sounds: S1 normal heart sound present and S2 normal heart sound present Bruits: no carotid bruits Peripheral pulses: Peripheral pulses 2+ throughout GI Inspection: Yes normal to inspection Skin Wounds: no wounds Hair: normal Neuro General: oriented to person, oriented to place and oriented to time Cranial nerves: Yes CN's II-XII intact bilaterally and Yes Normal hearing present Cognition (Neuro): normal cognition Motor exam (neuro): 5/5 motor strength present throughout Extrem Other: venous exam: No significant superficial varicosities or spider telangiectasias, minimal edema General: No clubbing, No cyanosis and No edema Psych Appearance: grossly normal Mental Status: mental status grossly normal Speech and movement: Normal speech and movement present Assessment & Plan Assessment & Plan (1) ESRD (end stage renal disease): Comment: 08/03/2021 - left arm basilic vein transposition 03/23/2022 - left are fistulogram with plasty x2 03/16/2023 - left arm fistula plasty x2 Code(s): N18.6 - End stage renal disease Plan: in short patient is doing well status post left upper extremity fistulogram. I do think that the basilic vein transposition has excellent caliber of vein. Should be stable for continued use. He will follow up with us on an as-needed basis. Coding Level of Care Code Est Pt Level 4 (82210) Diagnoses ESRD (end stage renal disease) N18.6
== END 2023-03-31 13:12 | disposition home or self-care (01) ==
PROVIDERS: PCP Registered Nurse; Visit Provider Surgery Vascular Surgery
DX: N18.6 End stage renal disease (principal); Z99.2 Dependence on renal dialysis
CPT/HCPCS: 99214

== ENCOUNTER → 2023-03-31 12:33 | Outpatient (BNVA) | payer MEDICARE, MEDICAID, SELFPAY | PROVIDERS: PCP Registered Nurse; Visit Provider Surgery Vascular Surgery | DX: N18.6 End stage renal disease (principal) | CPT/HCPCS: 99212 ==

== ENCOUNTER 2023-05-17 11:32 | Outpatient (REF) | payer MEDICARE, MEDICAID, SELFPAY ==
[2023-05-17 13:31] LABS: Prostate Specific Antigen 0.16 ng/mL (<0.05-4.0)
[2023-05-22 13:53] LABS: Testosterone, Total <1 ng/dL (250-1100)
== END 2023-05-17 11:33 | disposition home or self-care (01) ==
LOC: HO.LAB 11:32
PROVIDERS: Visit Provider Urology
DX: C61 Malignant neoplasm of prostate (principal); C79.51 Secondary malignant neoplasm of bone; Z12.5 Encounter for screening for malignant neoplasm of prostate
CPT/HCPCS: 36415; 84153; 84403

== ENCOUNTER 2023-05-24 13:39 | Outpatient (AMB) | payer MEDICARE, MEDICAID, SELFPAY ==
--- NOTE | 2023-05-24 13:40 | A.OFFVIS_ITS ---
Intake Intake Visit Reasons: 3M PSA/TESTOSTERONE(pending) Intake Note: Patient is Present for Telephone Follow Up Urology Med: Abiraterone Antibiotic Allergy: None Blood Thinner: None Pharamcy: [facility] Allergies No Known Allergies [No Known Allergies*] Allergy (Verified 03/31/23 13:00) HPI HPI Comments History of Present Illness Details Darwin is a pleasant male. He is a patient of Dr. Whitmore. He is seen for the following urologic issues - urinary retention with elevated creati nine - prostate cancer Continue 3 month review Target 3 years hormone therapy then reduction to intermittent anti-androgen Telemedicine Evaluation 15 min Consultation [employer] Anders Video attempted Overall stable biochemically. Three month follow-up GnRH, Prolia, bone scan. 05/23 P 0.16, T <1 - abiraterone 02/20 P 0.15 T <1 - GnRH, abiraterone 01/21 CT shows stable metastatic prostate cancer Bilateral ureteric stents last changed 01/21 Urinary retention Incomplete bladder emptying Currently on dialysis Prostate cancer grade group 5 with metastatic disease - last GnRH 08/2022 - Current therapy GnRH with antiandrogen 02/20 GnRH with abiraterone - GnRH Prolia administered 08/23 GnRH therapy with abiraterone - Gn RH and Prolia administered 01/20 GnRH therapy with abiraterone - Gn RH and Prolia administered 04/21 - PSA 23 Prostate biopsy 06/21 Histologic type: Adenocarcinoma, acinar type Histologic grade: [place] score: - 5+4=9 (right apex), 4+5=9 (left mid, right mid), 4+4=8 (left apex), 4+3=7 (left base, right base) Number cores positive: 6 Total number of cores: 6 % of tissue involved: Greater than 95% Periprostatic fat inv.: Present Seminal vesicle inv.: Not identified Perineural inv.: Present LVI: Suspicious Staging - May 2021 - bone scan and CT scan with metastatic disease - 10/20 CT with sclerotic lesions spinal - 05/22 Bone Scan positive extensive spi ne - 11/21 CT scan - sclerotic lesions stabl e, stents in place PFSH Medical History Creatinine elevation Urinary retention History of upper gastrointestinal bleeding A-V fistula Fusion of lumbar spine Chronic kidney disease Urinary tract infection Enlarged prostate Kidney disease Elevated PSA Anemia Metabolic acidosis Bilateral hydronephrosis Hypocalcemia Acute anemia Acute kidney injury Surgical History History of fusion of cervical spine Hx of esophagogastroduodenoscopy History of transurethral resection of prostate S/P arteriovenous (AV) fistula creation History of hip replacement, total Social History Household Members: Other Household Members Other:: sister Housing: House Housing Other:: mobile home Do you presently have visiting nurse or other home services: No Patient Tobacco Use Status: Former Tobacco user Quit Date: 8 years ago Tobacco use type: Cigarette Years Smoked: 30 e-Cigarette/Vaping Use: Former Use Substance Use Type: Marijuana service: No Current occupational status: disabled Review of Systems Const All systems reviewed & are unremarkable except as noted in HPI and below Reports no additional complaints Resp Reports no additional complaints GI Reports no additional complaints Reports as per HPI Musc Reports no additional complaints Physical Exam Telemedicine evaluation Appropriate responses Regular breathing rate and rhythm HEENT Head: Yes normal to inspection Ears: hearing grossly normal bilaterally Eyes General: appearance normal, both eyes and all related structures Neck Neck: Yes normal visual inspection Chest Chest palpation & inspection: normal inspection of the chest Resp Effort & Inspection: normal respiratory effort and able to speak in complete sentences Assessment & Plan Assessment & Plan (1) Prostate cancer metastatic to bone: Comment: 05/2021 - Grade Group 5 Code(s): C61 - Malignant neoplasm of prostate; C79.51 - Secondary malignant neoplasm of bone Plan Remarkably stable 3 month follow-up GnRH, Prolia, bone scan Orders: Orders Prostate Specific Antigen 6 Months C61 - Malignant neoplasm of prostate, C79.51 - Secondary malignant neoplasm of bone Testosterone, Total 6 Months C61 - Malignant neoplasm of prostate, C79.51 - Secondary malignant neoplasm of bone NM bone scan whole body 6 Months C61 - Malignant neoplasm of prostate, C79.51 - Secondary malignant neoplasm of bone Prostate Specific Antigen 05/17/23 C61 - Malignant neoplasm of prostate, C79.51 - Secondary malignant neoplasm of bone Testosterone, Total 05/17/23 C61 - Malignant neoplasm of prostate, C79.51 - Secondary malignant neoplasm of bone Patient Instructions: Imaging studies, laboratory and physical exam results were discussed and reviewed in detail. No major barriers to patient understanding were identified. An opportunity to ask questions regarding the treatment plan was provided. All questions were answered. The patient expressed understanding and agreement with the above treatment plan. The patient is aware they should contact our office by phone for worsening of their current condition or the appearance of new urologic symptoms. Compliance is encouraged with any medications and followup testing that is ordered. It is a privilege to participate in the urologic care of your patient. If you have any questions or concerns regarding treatment for the above conditions, or other urologic issues, please do not hesitate to contact me. The office telephone contact is [phone]. This note is constructed using voice recognition software. While every effort has been made to ensure accuracy job setter honing errors may have been included. Yours sincerely, Dr Trevor Restrepo MD, [facility] - Urology Providers of Expert, Compassionate Care for the Genitourinary System Telehealth Telehealth Location of provider rendering services: practice address Location of patient: address on file Patient Identification confirmed using: Name, : Yes Telehealth method: video Patient verbally consented to treatment: Yes Patient verbally consented to billing insurance company: Yes Patient informed of any privacy concerns related to visit: Yes Coding Level of Care Code Tele Est Pt Level 3 (36186) Diagnoses Prostate cancer metastatic to bone C61; C79.51
== END 2023-05-24 15:23 | disposition home or self-care (01) ==
LOC: HO.HUSH 13:39
PROVIDERS: PCP Registered Nurse; Visit Provider Urology
DX: C61 Malignant neoplasm of prostate (principal); C79.51 Secondary malignant neoplasm of bone
CPT/HCPCS: 99213

== ENCOUNTER → 2023-05-24 13:39 | Outpatient (BNVA) | payer MEDICARE, MEDICAID, SELFPAY | PROVIDERS: PCP Registered Nurse; Visit Provider Urology ==

== ENCOUNTER 2023-07-07 17:45 | Outpatient (REF) | payer MEDICARE, MEDICAID, SELFPAY ==
[2023-07-07 18:28] LABS: Influenza A PCR NEGATIVE (Negative); Influenza B PCR NEGATIVE (Negative); Resp Syncy Virus RNA Qual PCR NEGATIVE (Negative); SARS COV2 PCR INHOUSE NEGATIVE (Negative)
== END 2023-07-07 17:46 | disposition home or self-care (01) ==
LOC: HO.LNP 17:45
PROVIDERS: Visit Provider Pediatrics
DX: R05.2 Subacute cough (principal); Z11.52 Encounter for screening for COVID-19
CPT/HCPCS: 0241U

== ENCOUNTER → 2023-07-19 12:35 | Outpatient (REF) | payer MEDICARE, MEDICAID, SELFPAY ==
--- NOTE | ~2023-07-19 | XR_ITS ---
EXAMINATION: XR CHEST CLINICAL INFORMATION: Pneumonia. COMPARISON: Chest radiograph dated 04/01/2021. TECHNIQUE: 2 views of the chest were obtained. FINDINGS: Small right-sided and trace left-sided pleural effusions with patchy right basilar airspace opacities. Diffuse interstitial and pulmonary vascular prominence. Findings are new when compared to the prior examination and can be seen the setting of pulmonary edema. No pneumothorax. Borderline cardiomegaly. XR/XR chest 2V IMPRESSION: Small right-sided and trace left-sided pleural effusions with patchy right basilar airspace opacities as well as diffuse interstitial and pulmonary vascular prominence, new when compared to the prior examination. Findings can be seen in the setting of pulmonary edema.
--- NOTE | 2023-07-19 12:38 | CA_ITS ---
Transthoracic Echocardiogram Patient (Last, First, Middle): Darwin Stahl, Gender: Male Date of : 1960 Age: 63 Procedure Date: 07/19/2023 Procedure Type: Transthoracic Echocardiogram Location: OP Height: 160.02 cm Weight: 64.86 kg BSA: 1.68 m2 Heart Rate: bpm BP: 140 / 60 mmHg Mat Making Machine Tender: DEEPA Referring MD: Andie SUN Hose Cementer: Antony Zhang MD Symptoms: N18.6 END STAGE RENAL DIS, HTN I.10 SOB R06.02 Study Quality: Adequate ECG Rhythm: Sinus Conclusions: - 1. Mildly reduced LV ejection fraction of 45-50% with grade 3 diastolic dysfunction 2. Severe left atrial enlargement 3. Mild mitral regurgitation 4. Normal measured RV systolic pressure 5. Small to moderate pericardial effusion, more prominent near the right atrium with no clear tamponade physiology Findings Left Ventricle Normal left ventricular cavity size. There is normal left ventricular wall thickness. The left ventricular systolic function is mildly decreased. The visually estimated ejection fraction is between 45-50%. Spectral Doppler is indicative of a restrictive filling pattern. E/E prime ratio is >15, consistent with elevated filling pressures. Evidence suggests grade III (severe) diastolic dysfunction. Atria The left atrium is severely dilated. There is lipomatous hypertrophy of the interatrial septum. There is no evidence of interatrial shunt. The right atrium is mildly dilated. Aortic Valve There is mild calcification of the aortic valve. There is no aortic valve stenosis. There is no aortic valve regurgitation. Mitral Valve There is mild anterior and posterior mitral leaflet thickening. There is mild mitral valve regurgitation. There is no mitral valve stenosis. Pulmonic Valve The pulmonic valve is likely normal. Tricuspid Valve Normal tricuspid valve structure. There is mild tricuspid valve regurgitation. The right ventricular systolic pressure is normal. The right ventricular systolic pressure is 30 mmHg. Normal right atrial pressure. There is no evidence of pulmonary hypertension. Great Vessels The pulmonary artery was not well visualized. There is no dilatation of the ascending aorta. Venous The inferior vena cava is normal in size and collapses greater than 50% with inspiration. Pericardium/Pleural small to moderate circumferential pericardial effusion, more moderate near the right atrium with no clear evidence of tamponade physiology Prior Study Comparison No prior study available for comparison. Measurements 2D Linear Measurements IVSd: 0.95 0.6-0.9/0.6-1.0 cm LVIDd: 5.43 3.9-5.3/4.2-5.9 cm LVIDd Index: 3.23 2.4-3.2/2.2-3.1 cm/m2 LVIDs: 4.40 2.0-3.6 cm LVPWd: 1.40 0.7-1.1 cm Ao Root: 2.80 2.1-3.5 cm LA Diam: 5.10 2.7-3.8/3.0-4.0 cm LAIDs Index: 3.04 1.5-2.3 cm/m2 LV Mass: 323.81 67-162/88-224 g LV Mass Index: 192.74 43-95/49-115 g/m2 LVOT Diam: 2.10 3.0+(-)1.3 cm 2D Systolic Function EF 4C: 56.70 >55% EF 2C: 41.00 >55% EF BiP: 48.60 >55% Mitral Valve MV Pk E: 1.47 MV PK A: 0.72 MV Decel Time: 162.00 E/A: 2.00 E'Lateral: 5.44 E'Medial: 7.62 E/E' Med: 19.30 E/E' Lat: 27.00 PHT: 47.00 MVA PHT: 4.68 Decel [place]: 9.11 Aortic Valve AoV Pk Mk: 1.71 AoV Mn Mk: 1.13 AoV VTI: 0.33 AoV Pk Grad: 12.00 Aov Mn Grad: 6.00 MARY Cont.VTI: 3.21 LVOT LVOT Pk Mk: 1.48 LVOT Mn Mk: 1.09 LVOT VTI: 0.30 LVOT Pk Grad: 9.00 LVOT Mn Grad: 5.00 LVOT Diam: 2.10 LVOT Area: 3.46 Diastolic Function MV Pk E: 1.47 MV Pk A: 0.72 E/A: 2.00 E'Medial: 7.62 E/E' Med: 19.30 E' Laterial: 5.44 E/E' Lat: 27.00 Right Ventricle TAPSE (mm): 28.00 TVS' Mk: 14.00 Tricuspid Valve TR Pk Mk: 2.59 TR Pk Grad: 27.00 RA Press: 3.00 RVSP: 30.00 Great Vessels Aorta Ao Root-2D: 2.80 2.0-3.7 cm Ao Asc: 3.30 2.1-3.4 cm Pulmonary Veins Pulm Vein S/D 0.80 Updated in Other Vendor System with Status of Final Antony Zhang MD electronically signed on 07/20/2023 5:16:20 PM with status of Final
== END ==
LOC: HO.CARD 12:35
PROVIDERS: PCP Registered Nurse; Visit Provider Registered Nurse
DX: N18.6 End stage renal disease (principal); R06.02 Shortness of breath
CPT/HCPCS: 71046; 93306

== ENCOUNTER → 2023-07-19 12:38 | Outpatient (BNV) | payer MEDICARE, MEDICAID, SELFPAY | PROVIDERS: PCP Registered Nurse; Visit Provider Internal Medicine Cardiovascular Disease | DX: I34.0 Nonrheumatic mitral (valve) insufficiency (principal) | CPT/HCPCS: 93306 ==

== ENCOUNTER 2023-07-29 14:14 | Outpatient (REF) | payer MEDICARE, MEDICAID, SELFPAY ==
[2023-07-29 17:57] LABS: B Type Natriuretic Peptide 2716 pg/mL (<100)
[2023-07-29 18:01] LABS: Anion Gap 16 (12-20); Blood Urea Nitrogen 19 mg/dL (9-16); Calcium 9.8 mg/dL (8.4-10.2); Carbon Dioxide 28 mmol/L (22-29); Chloride 96 mmol/L (96-108); Estimated Glomerular Filt Rate 22; Glucose Random 106 mg/dL (60-115); Potassium 4.2 mmol/L (3.3-5.1); Sodium 136 mmol/L (135-145)
== END 2023-07-29 14:15 | disposition home or self-care (01) ==
LOC: HO.CHCLDS 14:14
PROVIDERS: Visit Provider Registered Nurse
DX: R60.0 Localized edema (principal)
CPT/HCPCS: 36415; 80048; 83880

== ENCOUNTER 2023-08-04 13:15 | Outpatient (AMB) | payer MEDICARE, MEDICAID, SELFPAY ==
[2023-08-04 13:44] VITALS: BP 160/64; PULSE 82; BMI 25.8
--- NOTE | 2023-08-04 13:44 | MHC.OFFVIS ---
Intake Vital Signs 08/04/23 13:44 Height 5 ft 3 in Weight 145 lb 8.081 oz BMI 25.8 BP 160/64 H Blood Pressure Location Rt brachial Position Sitting Pulse 82 Intake Visit Reasons: FU from recent echo/Andie Cifuentes Intake Note: Follow-up with ekg after echo c/o fluid but it comes off on dialysis c/o sob and fatigue Beamer Operator Required: No Allergies No Known Allergies [No Known Allergies*] Allergy (Verified 07/08/23 11:44) Medication List - Last Reconciled 08/04/23 by Antony Zhang MD abiraterone 1,000 mg (4 x 250 mg) PO DAILY 90 days albuterol sulfate 90 mcg/actuation (Ventolin HFA) inhalation amlodipine 10 mg PO DAILY blood pressure test kit-large As directed calcium acetate(phosphat bind) 667 mg PO TID denosumab (Prolia) 60 mg subcut [id number] hydralazine 10 mg PO BID leuprolide acetate (6 month) (Eligard) 45 mg subcut [id number] mcg (Centrum Silver Men) 1 tab PO DAILY prednisone 5 mg PO DAILY ropinirole 1 mg PO BID HPI HPI Comments History of Present Illness Details Darwin comes for urgent follow-up visit. This is because he has been progressively getting more more short of breath over the last month. He says about a month ago he started noticing increasing shortness of breath doing routine activities and now he gets short of breath doing any minimal activity with walking 5-10 feet. He also get short of breath laying down. Recently has been worked up. An echocardiogram which showed LVEF of 45-50% which is new as he has not had any prior echocardiogram with small to moderate pericardial effusion. No prior history of pericardial effusion. Patient also did chest x-ray which was more consistent with pulmonary edema. He also had a BNP which was in the 2900 range. His prior BNP was in the 60 range. Patient comes here and says that they have increases fluid removal with dialysis from 3.5 kg to 4 kg as per him. However despite that he continues to have significant and limiting shortness of breath. He denies any chest pain. Denies any recent wheezing or any viral illness. He said he was prescribed a bronchodilator but this has not helped any. He denies any prolonged palpitation irregular heartbeat. Denies any clear significant leg swelling. He was also tried he said on a 5 day course of diuretic but without any help. He has minimal urine output. [facility] Medical History Creatinine elevation Urinary retention History of upper gastrointestinal bleeding A-V fistula Fusion of lumbar spine Chronic kidney disease Urinary tract infection Enlarged prostate Kidney disease Elevated PSA Anemia Metabolic acidosis Bilateral hydronephrosis Hypocalcemia Acute anemia Acute kidney injury Surgical History History of fusion of cervical spine Hx of esophagogastroduodenoscopy History of transurethral resection of prostate S/P arteriovenous (AV) fistula creation History of hip replacement, total Social History Household Members: Other Household Members Other:: sister Housing: House Housing Other:: mobile home Do you presently have visiting nurse or other home services: No Patient Tobacco Use Status: Former Tobacco user Quit Date: 8 years ago Tobacco use type: Cigarette Years Smoked: 30 e-Cigarette/Vaping Use: Former Use Substance Use Type: Marijuana service: No Current occupational status: disabled Review of Systems Const Denies chills, Denies fatigue, Denies fever(s), Denies frequent falls, Denies weakness, Denies weight gain and Denies weight loss ENT Denies dizziness Card Denies chest pain, Denies leg edema, Denies lightheadedness, Denies palpitations, Denies dyspnea, Denies dyspnea on exertion, Denies orthopnea and Denies other (loss of consciousness) Resp Denies cough, Denies dyspnea and Denies dyspnea on exertion GI Denies hematochezia and Denies change in stool character Musc Denies abnormal gait, Denies muscle weakness, Denies numbness, Denies radiating pain into limb and Denies tingling Neuro Denies abnormal gait, Denies dizziness, Denies frequent falls, Denies numbness, Denies tingling and Denies weakness Endo Denies fatigue and Denies palpitations Physical Exam Vital Signs: Last Vital Signs Pulse 82 08/04/23 13:44 BP 160/64 H 08/04/23 13:44 BMI result Body Mass Index 25.8 Const General: cooperative, alert, awake, in distress moderate and respiratory, anxious, tired appearing and other ( Pale) Nutritional Appearance: average body habitus Orientation/consciousness: patient oriented x3 Neck Neck: Yes trachea midline, Yes supple and Yes no JVD Resp Effort & Inspection: respiratory distress Auscultation: no rales, no wheezes and breath sounds absent bilateral ( basis) Cardio Rate: regular rate Rhythm: abnormal rhythm with ectopic beats Heart sounds: S1 normal heart sound present, S2 normal heart sound present, no click, no gallops, no murmurs and no rubs GI Inspection: Yes distended Auscultation: normal bowel sounds Skin General skin exam: no rashes or lesions noted Neuro General: patient oriented x3 and no focal motor deficits Extrem General: Yes no clubbing, cyanosis or edema Assessment & Plan Assessment & Plan (1) Congestive heart failure: Code(s): I50.9 - Heart failure, unspecified Plan: patient has had progressively increasing symptoms suggestive decompensated congestive heart failure. Could be driven by anemia. Her is N/C renal disease and has had poor response to oral diuretics as outpatient. His recent lab work and chest x-ray suggestive congestive heart failure in symptoms have not improved bronchodilator therapy is oral diuretic therapy. His clinical syndrome also has not improved with increase fluid removal with dialysis as outpatient. I have therefore taken liberty to refer him to the emergency room, discussed the case with emergency room provider. Will most likely require IV diuresis and probably inpatient dialysis. Also repeat limited echo to make sure his pericardial effusion is not got significantly worsened may require intervention. Pursue limited echocardiogram as soon as possible. May need transfusion as well to maintain hematocrit over 30. Recently noted mildly reduced LV systolic function which could be ischemic and could have coronary artery disease as a cause of his congestive heart failure and this will need to be investigated probably investigated the inpatient. Needs better control of his blood pressure. Would increase hydralazine to 25 mg b.i.d.. Hold off on adding metoprolol to his regimen but can add nitropaste for better control blood pressure and preload reduction. May need to pursue more inpatient workup. Will follow as inpatient Coding Level of Care Code Est Pt Level 4 (53558) Diagnoses Congestive heart failure I50.9
== END 2023-08-04 14:17 | disposition home or self-care (01) ==
PROVIDERS: PCP Registered Nurse; Visit Provider Internal Medicine Cardiovascular Disease
DX: R06.02 Shortness of breath (principal)
CPT/HCPCS: 93010; 99214

== ENCOUNTER 2023-08-04 14:31 | Inpatient (IN) | payer MEDICARE, MEDICAID, SELFPAY ==
[2023-08-04 14:43] VITALS: BP 170/85; PULSE 80; RESP 18; TEMP 37.4; O2SAT 97; BMI 26.4
--- NOTE | 2023-08-04 14:49 | ED.GENADULT ---
HPI - General Adult General Chief complaint: Dyspnea Stated complaint: CHF Time Seen by Provider: 08/04/23 17:13 Source: patient Mode of arrival: ambulatory Limitations: no limitations History of Present Illness HPI narrative: a 63-year-old male with history of CHF with EF 45-50% and ESRD on HD with last dialysis was yesterday patient usually get 3 hours and 45 minutes session of dialysis been having increased of exertional dyspnea and paroxysmal nocturnal dyspnea over the past month, patient still make urine was tried 5 days' course of Lasix by the beet end supervisor with no improvement. Patient also stated that his been satting 85% on room air at home with his machine, which improved to 97% on 2 L NC in the ED. patient also noted increased swelling in the lower extremities. Patient otherwise declined chest pain. Related Data Home Medications Medication Instructions Recorded Confirmed blood pressure test kit-large #1 ea 03/18/22 12/17/22 hydralazine 10 mg tablet 10 mg PO BEDTIME 03/18/22 08/04/23 prednisone 5 mg tablet 5 mg PO DAILY 06/08/22 08/04/23 amlodipine 10 mg tablet 10 mg PO BEDTIME 12/17/22 08/04/23 denosumab 60 mg/mL subcutaneous 60 mg subcut [id number] 02/24/23 08/04/23 syringe (Prolia) leuprolide acetate (6 month) 45 mg 45 mg subcut [id number] 02/24/23 08/04/23 (6 month) subcutaneous syringe (Eligard) albuterol sulfate 90 mcg/actuation 2 puff inhalation Q4H PRN Wheezing 08/04/23 08/04/23 aerosol inhaler (Ventolin HFA) ropinirole 2 mg tablet 2 mg PO DAILY 08/04/23 08/04/23 ropinirole 2 mg tablet 2 mg PO [id number] 08/04/23 08/04/23 Previous Rx's Medication Instructions Recorded abiraterone 250 mg tablet 1,000 mg (4 x 250 mg) PO DAILY 90 09/21/22 days #360 tabs Allergies Allergy/AdvReac Type Severity Reaction Status Date / Time No Known Allergies Allergy Verified 07/08/23 11:44 [No Known Allergies*] Review of Systems Review of Systems: All other systems are reviewed and are negative Constitutional: Reports as per HPI and Reports no additional constitutional complaints Eyes: Reports as per HPI and Reports no additional eye complaints Reports system reviewed and no additional complaints, except as documented Cardiovascular: Reports as per HPI and Reports no additional cardiovascular complaints Respiratory: Reports as per HPI and Reports no additional respiratory complaints Gastrointestinal: Reports as per HPI and Reports no additional gastrointestinal complaints Genitourinary: Reports no additional female genitourinary complaints Musculoskeletal: Reports no additional musculoskeletal complaints Skin/Breast: Reports system reviewed and no additional complaints, except as docu Psychiatric: Reports no additional psychiatric complaints Endocrine: Reports no additional endocrine complaints Hematologic/Lymphatic: Reports no additional hematologic/lymphatic complaints Allergic/Immunologic: Reports no additional allergic/immunologic complaints Reports system reviewed and no additional complaints, except as documented and Reports Abnormal speech present PMFSH Past Medical History Onset Date is defined in the Problem List Problems that require an onset date and time if occurred within 24 hrs of arrival to the ED Aortic Dissection and Rupture; Neurologic impairment; Cardiopulmonary Arrest; Endotracheal Intubation; Insertion or Replacement of Mechanical Circulatory Assist Device Medical History Creatinine elevation Urinary retention History of upper gastrointestinal bleeding A-V fistula Fusion of lumbar spine Chronic kidney disease Urinary tract infection Enlarged prostate Kidney disease Elevated PSA Anemia Metabolic acidosis Bilateral hydronephrosis Hypocalcemia Acute anemia Acute kidney injury Surgical History History of fusion of cervical spine Hx of esophagogastroduodenoscopy History of transurethral resection of prostate S/P arteriovenous (AV) fistula creation History of hip replacement, total Social History Social History Household Members: Other Household Members Other:: sister Housing: House Housing Other:: mobile home Do you presently have visiting nurse or other home services: No Alcohol intake: former Patient Tobacco Use Status: Former Tobacco user Quit Date: 8 years ago Tobacco use type: Cigarette Years Smoked: 30 Smoked in Last 30 Days: No e-Cigarette/Vaping Use: Former Use Use of substances other than those prescribed or required for medical reasons: No Substance Use Type: Marijuana Substance Use Frequency: Daily Currently Displaying Signs/Symptoms of Drug Intoxication Withdrawal: No Have you been hit, kicked, punched, or otherwise hurt by someone within the past year? If so, by whom?: No Do you feel safe in your current relationship?: No Current Relationship Is there a partner from a previous relationship who is making you feel unsafe now?: No Are you made to feel afraid or neglected: No Advance Directives: No Advance Directives Information Provided: No Do you have thoughts of harming others: None Do you have a plan to hurt others: No Plan Recently lost weight without trying: No Nutrition Risks: No Nutritional Risk Poor oral hygiene: No service: No Current occupational status: disabled Physical Exam ED Vital Signs: Vital Signs - 24 hr 08/04/23 14:43 08/04/23 17:13 08/04/23 18:49 Temperature 99.4 F 96.8 F Pulse Rate 80 76 84 Respiratory Rate 18 18 18 Blood Pressure 170/85 H 171/77 H 166/80 H Pulse Oximetry 97 98 94 Oxygen Delivery Method Nasal Cannula Nasal Cannula Nasal Cannula Oxygen Flow Rate 2 2 BMI result Body Mass Index 26.4 Vital signs have been reviewed and appear to be correct. Blood pressure elevated. Heart rate normal. Respiratory rate normal. Temperature normal. Oxygen saturation normal. Appearance: Alert. Oriented X3. No acute distress. Head: Normal external exam. Normocephalic. Atraumatic. No Escudero signs noted. No raccoon eyes noted Eyes: PERRLA. EOMI. Conjunctiva and sclera normal. Eyelids normal. ENT: TM's Normal. Pharynx normal. Uvula midline. Moist mucous membranes. No trismus noted. No drooling noted. No muffled voice noted. Neck: Normal inspection. Neck supple. FROM. No adenopathy. Thyroid Normal. No meningeal signs. No neck mass noted. CVS: Normal heart rate and rhythm. Heart sound normal. No murmurs noted. Pulses normal throughout. Respiratory: No respiratory distress. Painless inspiration. Breath sounds normal. Bilateral basilar rales. Chest nontender. No accessory muscle usage noted or decreased air movement noted. Abdomen: Soft and nontender. Bowel sounds normal in all 4 quadrants. No distention noted. No organomegaly noted. No visible injury noted. Back: No CVA tenderness. Full range of motion noted. Skin: Skin warm and dry. Normal skin color. Normal skin turgor. No rashes/lesions/lacerations noted. Extremities: No lower extremity edema. Extremities exhibit normal range of motion. Extremities nontender. Neuro: Oriented X 3. Cranial nerve exam: II-XII are grossly intact No motor deficit. No sensory deficit. Reflexes normal. Course Course Course Narrative: RME: 63-year-old male sent by insurance policy issue clerk for shortness of breath on exertion for a month. Patient history of CHF and end-stage renal disease. Patient O2 saturation 90% room air placed on oxygen. Labs x-ray ordered. Informed NUrse Rizwana for patient to be brought back in. Reevaluation(s) Reevaluation #1: Dr. Cr at the bedside evaluating the patient patient will be dialyzed in the morning felt there is no emergent dialysis is needed, will admit the patient, administer Lasix /nitro. Case discussed with hospitalist to be admitted. Time: 19:13 Medications Administered Generic Name Dose Route Start Last Admin Trade Name Freq PRN Reason Stop Dose Admin Amlodipine Besylate 10 mg 08/04/23 23:00 08/04/23 23:25 Amlodipine Besylate 10 Mg Tablet PO 10 mg BEDTIME FREIDA Administration Protocol Heparin Sodium (Porcine) 5,000 unit 08/04/23 20:00 08/04/23 20:12 Heparin Sodium,Porcine 5,000 Unit/Ml Vial SUBCUT 5,000 unit Q12H FREIDA Administration Hydralazine HCl 10 mg 08/04/23 23:00 08/04/23 23:25 Hydralazine Hcl 10 Mg Tablet PO 10 mg BEDTIME FREIDA Administration Protocol Ropinirole HCl 2 mg 08/05/23 09:00 08/04/23 23:24 Ropinirole Hcl 2 Mg Tablet PO 2 mg DAILY FREIDA Administration Sodium Chloride 3 ml 08/05/23 00:00 08/04/23 23:24 0.9 % Sodium Chloride Flush 3 Ml Syringe IVFLUSH 3 ml QSHIFT FREIDA Administration Discontinued Medications Generic Name Dose Route Start Last Admin Trade Name Freq PRN Reason Stop Dose Admin Furosemide 20 mg 08/04/23 17:33 08/04/23 18:04 Furosemide 20 Mg/2 Ml Vial IVPUSH 08/04/23 17:34 20 mg ONCE ONE Administration Protocol Influenza Virus Vaccine 0.5 ml 08/04/23 22:50 08/04/23 23:06 Flu Vacc [id number](6mos Up)/Pf 0.5 Ml Syringe IM 08/04/23 22:51 Not Given .ONCE ONE Nitroglycerin 0.5 inch 08/04/23 17:33 08/04/23 18:04 Nitroglycerin 2 % Oint 1 Gm Packet TRANSDERMA 08/04/23 17:34 0.5 inch ONCE ONE Administration Medical Decision Making Differential Diagnosis Differential Diagnoses: The differential diagnosis associated with the presentation includes ( CHF, ACS, electrolyte abnormality, severe anemia, pulmonary edema , upper respiratory viral infection, pneumonia, pneumothorax.) Admission/Observation Consideration of admission/observation: Escalation of care including admission/observation considered Consult Healthcare Provider Management of the patient was discussed with: Hospitalist ( Dr. Olivares) Lab Data MDM Lab Attestation statement: I reviewed the patient's lab results. 08/05/23 06:08 08/05/23 06:08 Labs: Lab Results 08/04/23 08/04/23 Range/Units 17:18 18:50 WBC 6.9 (4.8-10.8) X10*3/uL RBC 3.53 L D (4.60-5.80) X10*6/uL Hgb 10.2 L D (14.0-18.0) g/dl Hct 31.0 L D (42.0-52.0) % MCV 87.8 (80.0-98.0) fL MCH 28.9 (27.0-33.0) pg MCHC 32.9 (31.0-36.0) g/dl RDW 17.2 H (11.0-16.0) % Plt Count 202 D (160-400) X10*3/uL MPV 9.7 (9.4-12.4) fL Immature Gran % (Auto) 0.4 (0.0-0.4) % Neut % (Auto) 73.6 H (45-73) % Lymph % (Auto) 17.5 L (20-40) % Titus % (Auto) 5.9 (2-11) % Eos % (Auto) 1.9 (0-4) % Baso % (Auto) 0.7 (0-2) % Lymph # (Auto) 1.2 (1.2-4.9) X10*3/uL Titus # (Auto) 0.4 (0.1-1.2) X10*3/uL Eos # (Auto) 0.1 (0.0-0.4) X10*3/uL Baso # (Auto) 0.1 (0.0-0.2) X10*3/uL Abs Immat Gran (auto) 0.03 (0.00-0.03) X10*3/uL Absolute Neuts (auto) 5.1 (2.0-8.3) x10*3/uL Absolute Nucleated RBC 0.000 (0.0-0.012) X10*3/uL Nucleated RBC % (auto) 0.0 (0.0-0.2) /100WBC PT 11.1 (11.1-13.3) SEC INR 0.9 (0.9-1.1) APTT 31.6 (26.0-36.4) SEC Sodium 135 (135-145) mmol/L Potassium 4.7 (3.3-5.1) mmol/L Chloride 94 L (96-108) mmol/L Carbon Dioxide 28 (22-29) mmol/L Anion Gap 18 (12-20) BUN 39 H (9-16) mg/dL Creatinine 5.08 H* (0.5-1.4) mg/dL Estim Creat Clear Calc 12.1 Estimated GFR 12 Random Glucose 143 H (60-115) mg/dL Calcium 10.4 H D (8.4-10.2) mg/dL Total Bilirubin 1.1 H (0.0-1.0) mg/dL AST 16 (5-37) U/L ALT 16 (0-40) U/L Alkaline Phosphatase 96 (39-117) U/L Troponin I High Sens 85.3 H (<3.5-35.0) ng/L B-Natriuretic Peptide 3821 H (<100) pg/mL Total Protein 6.6 (6.5-8.0) g/dL Albumin 4.1 (3.5-5.0) g/dL Influenza Type A (PCR) NEGATIVE (Negative) Influenza Type B (PCR) NEGATIVE (Negative) RSV RNA Qual (PCR) NEGATIVE (Negative) SARS-CoV-2 RNA (RT-PCR) NEGATIVE (Negative) Independent Interpretation I performed an independent interpretation of an: Plain X-Ray ( chest:1. Persistent density at the right lung base. This is due to a small to moderate volume right pleural effusion. 2. Increasing patchy reticular airspace opacity at the left lung base. 3. Persistent mild central pulmonary vascular prominence without overt pulmonary edema 4. Bone metastatic ) Radiology Impression Discussion of test interpretation with radiology: I have reviewed the radiologist's reading. Discharge Plan Discharge Clinical Impression: CHF (congestive heart failure), ESRD (end stage renal disease) Patient Disposition: Admitted As Inpatient Interventions: Admission Worksheet (ED) Last Done: 08/04/23 21:04 Discharge Date/Time: 08/04/23 22:44
[2023-08-04 17:13] VITALS: BP 171/77; PULSE 76; RESP 18; TEMP 36; O2SAT 98
[2023-08-04 18:49] VITALS: BP 166/80; PULSE 84; RESP 18; O2SAT 94
[2023-08-04 19:51] VITALS: BP 162/83; PULSE 86; RESP 24; TEMP 36.6; O2SAT 94
--- NOTE | 2023-08-04 20:12 | PM.IMHP ---
History of Present Illness Date of Service: 08/04/23 <PITO Clement - Last Filed: 08/04/23 23:04> Attending physician on admission: Irian Olivares <IPTO Clement - Last Filed: 08/04/23 23:04> Chief Complaint: THACKER, PND <PITO Clement - Last Filed: 08/04/23 23:04> Pt is a 63-year-old male with a PMH significant for?HFrEF, ESRD on HD Tue/Tue/Tue, prostate cancer with metastasis to the bones, anemia of chronic disease, hx of erosive gastritis, and restless leg syndromw who presents to the ED from Cardiology office for evaluation of symptoms suggestive decompensated congestive heart failure. Patient has been experiencing increased shortness of over the past month where he has been experiencing THACKER with minimal activity and walking 5-10 feet. Also has been experiencing increasing PND for the past 2 weeks. Received in echocardiogram on 07/19/2023 which showed new reduced LVEF of 45-50% and small to moderate pericardial effusion. Patient has experienced an increase fluid removal with dialysis from 3.5 kg 2 4 kg and was started on a 5 day course of Bumex, but without any relief. Patient was seen earlier today by Dr. Zhang in the office who referred him to the ED for IV diuresing, inpatient dialysis, and repeated limited echo to ensure pericardial effusion is not significantly worsened. Patient himself states he ?feels like there is water on my lungs. Denies fever, chills, nausea, vomiting, abdominal pain. No chest pain/pressure, palpitations. In the ED pt was hypertensive up to 171/77, tachypneic up to 24, and satting at 94% on 2 L NC. Labs were significant for stable H&H of 10.2/31.0, BUN 39, creatinine 5.09, troponin 85.3, and BNP 3821. Electrolytes largely WNL. Patient tested negative for influenza type a and B, RSV, and COVID. CXR showed small to moderate volume right pleural effusion, increasing patchy reticular airspace at the left lung base, persistent mild central pulmonary vascular prominence without overt pulmonary edema, and metastatic bone changes to the left humeral head. EKG demonstrated normal sinus rhythm without significant ST elevations or depressions. Pt was treated with furosemide 20 mg IV and nitroglycerin patch. Pt will be admitted to the hospital for treatment and further evaluation of acute HRrEF exacerbation in the setting of ESRD on HD. <PITO Clement - Last Filed: 08/04/23 23:04> Review of Systems Review of Systems: Increasing SOB and THACKER Paroxysmal nocturnal dyspnea Denies orthopnea No lower leg edema Denies chest pain/pressure, palpitations No fever, chills, nausea, vomiting, abdominal pain <PITO Clement - Last Filed: 08/04/23 23:04> [facility] Medical History: Medical History Creatinine elevation Urinary retention History of upper gastrointestinal bleeding A-V fistula Fusion of lumbar spine Chronic kidney disease Urinary tract infection Enlarged prostate Kidney disease Elevated PSA Anemia Metabolic acidosis Bilateral hydronephrosis Hypocalcemia Acute anemia Acute kidney injury <PITO Clement - Last Filed: 08/04/23 23:04> Surgical History: Surgical History History of fusion of cervical spine Hx of esophagogastroduodenoscopy History of transurethral resection of prostate S/P arteriovenous (AV) fistula creation History of hip replacement, total <PITO Clement - Last Filed: 08/04/23 23:04> Social History: Social History Household Members: Other Household Members Other:: sister Housing: House Housing Other:: mobile home Do you presently have visiting nurse or other home services: No Alcohol intake: former Patient Tobacco Use Status: Former Tobacco user Quit Date: 8 years ago Tobacco use type: Cigarette Years Smoked: 30 Smoked in Last 30 Days: No e-Cigarette/Vaping Use: Former Use Use of substances other than those prescribed or required for medical reasons: No Substance Use Type: Marijuana Substance Use Frequency: Daily Have you been hit, kicked, punched, or otherwise hurt by someone within the past year? If so, by whom?: No Do you feel safe in your current relationship?: No Current Relationship Is there a partner from a previous relationship who is making you feel unsafe now?: No Are you made to feel afraid or neglected: No Advance Directives: No Advance Directives Information Provided: No Do you have thoughts of harming others: None Do you have a plan to hurt others: No Plan Recently lost weight without trying: No Nutrition Risks: No Nutritional Risk Poor oral hygiene: No service: No Current occupational status: disabled <PITO Clement - Last Filed: 08/04/23 23:04> Meds Allergies/Adverse reactions: Allergies Allergy/AdvReac Type Severity Reaction Status Date / Time No Known Allergies Allergy Verified 07/08/23 11:44 [No Known Allergies*] <PITO Clement - Last Filed: 08/04/23 23:04> Active Medications: Current Medications Acetaminophen (Acetaminophen 325 Mg Tablet) 650 mg PO Q6H PRN PRN Reason: Pain, Mild (Pain Scale 1-3) Heparin Sodium (Porcine) (Heparin Sodium,Porcine 5,000 Unit/Ml Vial) 5,000 unit SUBCUT Q12H [facility] Last Admin: 08/04/23 20:12 Dose: 5,000 unit Melatonin (Melatonin 3 Mg Tablet) 6 mg PO BEDTIME PRN PRN Reason: Insomnia Ondansetron HCl (Ondansetron Hcl 4 Mg/2 Ml Vial) 4 mg IVPUSH Q8H PRN PRN Reason: Nausea and Vomiting Sodium Chloride (0.9 % Sodium Chloride Flush 3 Ml Syringe) [facility] <PITO Clement - Last Filed: 08/04/23 23:04> Home medications: Home Medications Medication Instructions Recorded Confirmed Last Taken Type blood pressure test kit-large #1 ea 03/18/22 12/17/22 Unknown History hydralazine 10 mg tablet 10 mg PO BEDTIME 03/18/22 08/04/23 Unknown History prednisone 5 mg tablet 5 mg PO DAILY 06/08/22 08/04/23 03/16/23 05:00 History amlodipine 10 mg tablet 10 mg PO BEDTIME 12/17/22 08/04/23 Unknown History denosumab 60 mg/mL subcutaneous 60 mg subcut [id number] 02/24/23 08/04/23 Unknown History syringe (Prolia) leuprolide acetate (6 month) 45 mg 45 mg subcut [id number] 02/24/23 08/04/23 Unknown History (6 month) subcutaneous syringe (Eligard) albuterol sulfate 90 mcg/actuation 2 puff inhalation Q4H PRN Wheezing 08/04/23 08/04/23 Unknown History aerosol inhaler (Ventolin HFA) ropinirole 2 mg tablet 2 mg PO DAILY 08/04/23 08/04/23 Unknown History ropinirole 2 mg tablet 2 mg PO MOWEFR 08/04/23 08/04/23 Unknown History <PITO Clement - Last Filed: 08/04/23 23:04> Physical Exam Vital Signs and Narrative: Vital Signs: Last Vital Signs Temp 97.8 F 08/04/23 19:51 Pulse 86 08/04/23 19:51 Resp 24 H 08/04/23 19:51 BP 162/83 H 08/04/23 19:51 Pulse Ox 94 08/04/23 19:51 O2 Del Method Nasal Cannula 08/04/23 19:51 O2 Flow Rate 2 08/04/23 19:51 Oxygen Flow Rate 2 08/04/23 14:43 BMI result Body Mass Index 26.4 <PITO Clement - Last Filed: 08/04/23 23:04> Constitutional: Alert, in no acute distress. Mental Status: Oriented to person, place and time. Eyes: Pupils are equal, round, and reactive to light. Ear, Nose, and Throat: Oropharynx clear, mucous membranes moist. Ears and nose without deformities. Trachea midline. Respiratory: Clear to auscultation bilaterally. No wheezing, rales, or rhonchi. Cardiovascular: S1, S2 regular. No murmurs, rubs, or gallops. Gastrointestinal: Abdomen soft, non-tender, non-distended. Normal bowel sounds. Neurologic: Cranial nerves II-XII are grossly intact bilaterally. No focal neurological deficits. Moves all extremities spontaneously. Skin: Warm, dry. Musculoskeletal: No cyanosis or clubbing. Extremities: No edema. Psychiatric: Normal mood and affect. <PITO Clement - Last Filed: 08/04/23 23:04> Results Labs CBC and Chem 7: 08/04/23 17:18 08/04/23 17:18 <PITO Clement - Last Filed: 08/04/23 23:04> Labs: Laboratory Results - last 24 hr 08/04/23 08/04/23 17:18 18:50 MCV 87.8 MCH 28.9 MCHC 32.9 RDW 17.2 H Plt Count 202 D MPV 9.7 Immature Gran % (Auto) 0.4 Neut % (Auto) 73.6 H Lymph % (Auto) 17.5 L [place] % (Auto) 5.9 Eos % (Auto) 1.9 Baso % (Auto) 0.7 Lymph # (Auto) 1.2 [place] # (Auto) 0.4 Eos # (Auto) 0.1 Baso # (Auto) 0.1 Abs Immat Gran (auto) 0.03 Absolute Neuts (auto) 5.1 Absolute Nucleated RBC 0.000 Nucleated RBC % (auto) 0.0 PT 11.1 INR 0.9 APTT 31.6 Anion Gap 18 Estim Creat Clear Calc 12.1 Estimated GFR 12 Random Glucose 143 H Calcium 10.4 H D Total Bilirubin 1.1 H AST 16 ALT 16 Alkaline Phosphatase 96 B-Natriuretic Peptide 3821 H Total Protein 6.6 Albumin 4.1 Influenza Type A (PCR) NEGATIVE Influenza Type B (PCR) NEGATIVE RSV RNA Qual (PCR) NEGATIVE SARS-CoV-2 RNA (RT-PCR) NEGATIVE <IPTO Clement - Last Filed: 08/04/23 23:04> Imaging Radiologist's Impressions: Impressions Chest X-Ray 08/04/23 15:55 IMPRESSION: 1. Persistent density at the right lung base. This is due to a small to moderate volume right pleural effusion. 2. Increasing patchy reticular airspace opacity at the left lung base. 3. Persistent mild central pulmonary vascular prominence without overt pulmonary edema 4. Bone metastatic changes left humeral head <PITO Clement - Last Filed: 08/04/23 23:04> Assessment and Plan (1) ESRD (end stage renal disease): Status: Acute <PITO Clement - Last Filed: 08/04/23 23:04> (2) CHF (congestive heart failure): Status: Acute <PITO Clement - Last Filed: 08/04/23 23:04> Pt is a 63-year-old male with a PMH significant for?HFrEF, ESRD on HD Mon/Wed/Fri, prostate cancer with metastasis to the bones, anemia of chronic disease, hx of erosive gastritis, and restless leg syndromw who presents to the ED from Cardiology office for evaluation of symptoms suggestive decompensated congestive heart failure. Pt will be admitted to the hospital for treatment and further evaluation of acute HRrEF exacerbation in the setting of ESRD on HD. Acute HFrEF exacerbation with pericardial effusion Pt with increasing SOB, THACKER, PND, elevated BNP, pleural effusion, despite po diuretics and increased fluid removal at dialysis Pt given Lasix 20 mg IV in ED Will hold on additional diuretics pending dialysis and re-evaluation tomorrow Will get limited echo to evaluate for worsening pericardial effusion Follow BMP ESRD on HD M/W/F Has had increased fluid removal with dialysis from 3.5 kg to 4 kg Will received dialysis tomorrow Nephrology consult Follow BMP Elevated troponin Initial troponin 85.3 Likely type II in the setting of increased demand: Patient asymptomatic, EKG without significant ischemic changes Repeat troponin Monitor on telemetry Restless leg syndrome Continue ropinirole HTN Continue amlodipine, hydralazine Full Code Attending:?Dr. Olivares DVT Prophylaxis: Lovenox Pt will require a hospitalization of at least two nights for treatment of?acute HFrEF exacerbation. Given patient's significant comorbidities of ESRD and recent finding of pericardial effusion and worsening symptoms despite increased fluid removal at dialysis and oral diuretics, patient will require hospitalization for IV diuretics, hospitalized dialysis, close monitoring and specialist consultation.. <PITO Clement - Last Filed: 08/04/23 23:04> Pt is a 63-year-old male with a PMH significant for?HFrEF, ESRD on HD Tue/Tue/Tue, prostate cancer with metastasis to the bones, anemia of chronic disease, hx of erosive gastritis, and restless leg syndromw who presents to the ED from Cardiology office for evaluation of symptoms suggestive decompensated congestive heart failure. Pt will be admitted to the hospital for treatment and further evaluation of acute HRrEF exacerbation in the setting of ESRD on HD. Acute hypoxic respiratory failure due to acute HFrEF exacerbation with pericardial effusion Pt with increasing SOB, THACKER, PND, elevated BNP, pleural effusion, despite po diuretics and increased fluid removal at dialysis Pt given Lasix 20 mg IV in ED Will hold on additional diuretics pending dialysis and re-evaluation tomorrow Will get limited echo to evaluate for worsening pericardial effusion Follow BMP ESRD on HD M/W/F Has had increased fluid removal with dialysis from 3.5 kg to 4 kg Will received dialysis tomorrow Nephrology consult Follow BMP Elevated troponin Initial troponin 85.3 Likely type II in the setting of increased demand: Patient asymptomatic, EKG without significant ischemic changes Repeat troponin Monitor on telemetry Restless leg syndrome Continue ropinirole HTN Continue amlodipine, hydralazine Full Code Attending:?Dr. Olivares DVT Prophylaxis: Lovenox Pt will require a hospitalization of at least two nights for treatment of?acute HFrEF exacerbation. Given patient's significant comorbidities of ESRD and recent finding of pericardial effusion and worsening symptoms despite increased fluid removal at dialysis and oral diuretics, patient will require hospitalization for IV diuretics, hospitalized dialysis, close monitoring and specialist consultation.. <Irina Olivares MD - Last Filed: 08/04/23 23:15> Quality Stroke Does the patient have a stroke diagnosis?: No <PITO Clement - Last Filed: 08/04/23 23:04> VTE Prior VTE?: No <PITO Clement - Last Filed: 08/04/23 23:04> VTE Risk Level:: Medical - moderate - high <PITO Clement - Last Filed: 08/04/23 23:04> VTE Device Contraindication: Treatment Not Indicated <PITO Clement - Last Filed: 08/04/23 23:04> VTE Drug Contraindication: N/A - Med Ordered <PITO Clement - Last Filed: 08/04/23 23:04>
--- NOTE | 2023-08-04 20:12 | PHA.MEDREC ---
Pharmacy Consult ? Medication Reconciliation Pharmacy has completed the medication reconciliation. Patient reported medications. Report abiraterone and prednisone he takes every other month, reports that this is his off month. Flores Melgar, CassyD
[2023-08-04 22:44] VITALS: BMI 25.9
[2023-08-05 00:11] VITALS: BP 177/84; PULSE 81; RESP 18; TEMP 36; O2SAT 94
[2023-08-05 03:59] VITALS: BP 165/85; PULSE 77; RESP 17; TEMP 36.3; O2SAT 95
[2023-08-05 06:45] VITALS: BP 160/79; PULSE 72; RESP 17; TEMP 35.5; O2SAT 96
--- NOTE | 2023-08-05 08:37 | PM.CNNEP ---
History of Present Illness Reason for Consult Consult date: 08/05/23 Chief Complaint Chief complaint: Dyspnea Review of Systems Review of Systems Increasing SOB and THACKER Paroxysmal nocturnal dyspnea Denies orthopnea No lower leg edema Denies chest pain/pressure, palpitations No fever, chills, nausea, vomiting, abdominal pain PMFSH Past Medical History Medical History Creatinine elevation Urinary retention History of upper gastrointestinal bleeding A-V fistula Fusion of lumbar spine Chronic kidney disease Urinary tract infection Enlarged prostate Kidney disease Elevated PSA Anemia Metabolic acidosis Bilateral hydronephrosis Hypocalcemia Acute anemia Acute kidney injury Surgical History Surgical History History of fusion of cervical spine Hx of esophagogastroduodenoscopy History of transurethral resection of prostate S/P arteriovenous (AV) fistula creation History of hip replacement, total Social History Social History Household Members: Other Household Members Other:: sister Housing: House Housing Other:: mobile home Do you presently have visiting nurse or other home services: No Alcohol intake: former Patient Tobacco Use Status: Former Tobacco user Quit Date: 8 years ago Tobacco use type: Cigarette Years Smoked: 30 Smoked in Last 30 Days: No e-Cigarette/Vaping Use: Former Use Use of substances other than those prescribed or required for medical reasons: No Substance Use Type: Marijuana Substance Use Frequency: Daily Currently Displaying Signs/Symptoms of Drug Intoxication Withdrawal: No Have you been hit, kicked, punched, or otherwise hurt by someone within the past year? If so, by whom?: No Do you feel safe in your current relationship?: No Current Relationship Is there a partner from a previous relationship who is making you feel unsafe now?: No Are you made to feel afraid or neglected: No Advance Directives: No Advance Directives Information Provided: No Do you have thoughts of harming others: None Do you have a plan to hurt others: No Plan Recently lost weight without trying: No Nutrition Risks: No Nutritional Risk Poor oral hygiene: No service: No Current occupational status: disabled Meds Allergies Allergy/AdvReac Type Severity Reaction Status Date / Time No Known Allergies Allergy Verified 07/08/23 11:44 [No Known Allergies*] Active Medications: Current Medications Acetaminophen (Acetaminophen 325 Mg Tablet) 650 mg PO Q6H PRN PRN Reason: Pain, Mild (Pain Scale 1-3) Albuterol Sulfate (Albuterol Sulfate 90 Mcg 8 Gm Inhaler) 2 puff INHALE Q4H PRN PRN Reason: Wheezing Amlodipine Besylate (Amlodipine Besylate 10 Mg Tablet) 10 mg PO BEDTIME [facility]; Protocol Last Admin: 08/04/23 23:25 Dose: 10 mg Heparin Sodium (Porcine) (Heparin Sodium,Porcine 5,000 Unit/Ml Vial) 5,000 unit SUBCUT Q12H [facility] Last Admin: 08/04/23 20:12 Dose: 5,000 unit Hydralazine HCl (Hydralazine Hcl 10 Mg Tablet) 10 mg PO BEDTIME [facility]; Protocol Last Admin: 08/04/23 23:25 Dose: 10 mg Melatonin (Melatonin 3 Mg Tablet) 6 mg PO BEDTIME PRN PRN Reason: Insomnia Ondansetron HCl (Ondansetron Hcl 4 Mg/2 Ml Vial) 4 mg IVPUSH Q8H PRN PRN Reason: Nausea and Vomiting Ropinirole HCl (Ropinirole Hcl 2 Mg Tablet) 2 mg PO DAILY [facility] Last Admin: 08/04/23 23:24 Dose: 2 mg Ropinirole HCl (Ropinirole Hcl 2 Mg Tablet) 2 mg PO MoWeFr@0900 [facility] Sodium Chloride (0.9 % Sodium Chloride Flush 3 Ml Syringe) 3 ml IVFLUSH QSHIFT [facility] Last Admin: 08/04/23 23:24 Dose: 3 ml Home Medications Medication Instructions Recorded Confirmed Last Taken Type blood pressure test kit-large #1 ea 03/18/22 12/17/22 Unknown History hydralazine 10 mg tablet 10 mg PO BEDTIME 03/18/22 08/04/23 Unknown History prednisone 5 mg tablet 5 mg PO DAILY 06/08/22 08/04/23 03/16/23 05:00 History amlodipine 10 mg tablet 10 mg PO BEDTIME 12/17/22 08/04/23 Unknown History denosumab 60 mg/mL subcutaneous 60 mg subcut [id number] 02/24/23 08/04/23 Unknown History syringe (Prolia) leuprolide acetate (6 month) 45 mg 45 mg subcut [id number] 02/24/23 08/04/23 Unknown History (6 month) subcutaneous syringe (Eligard) albuterol sulfate 90 mcg/actuation 2 puff inhalation Q4H PRN Wheezing 08/04/23 08/04/23 Unknown History aerosol inhaler (Ventolin HFA) ropinirole 2 mg tablet 2 mg PO DAILY 08/04/23 08/04/23 Unknown History ropinirole 2 mg tablet 2 mg PO MOWEFR 08/04/23 08/04/23 Unknown History Physical Exam Vital Signs: Last Vital Signs Temp 96 F L 08/05/23 06:45 Pulse 72 08/05/23 06:45 Resp 17 08/05/23 06:45 BP 160/79 H 08/05/23 06:45 Pulse Ox 96 08/05/23 06:45 O2 Del Method Nasal Cannula 08/05/23 06:45 O2 Flow Rate 2 08/05/23 06:45 Oxygen Flow Rate 2 08/04/23 14:43 BMI result Body Mass Index 25.9 Results Lab Results 08/05/23 06:08 08/05/23 06:08 Lab results: Chemistry 08/04/23 08/05/23 17:18 06:08 Sodium 135 135 Potassium 4.7 4.9 Carbon Dioxide 28 28 BUN 39 H 44 H Creatinine 5.08 H* 5.92 H* Calcium 10.4 H D 9.5 D Hematology 08/04/23 08/05/23 17:18 06:08 WBC 6.9 5.8 Hgb 10.2 L D 9.1 L Plt Count 202 D 195 Assessment and Plan (1) ESRD (end stage renal disease): Status: Acute (2) CHF (congestive heart failure): Status: Acute RTANE CONSULTED for ESRD and THACKER In summary 63 y/o M well know to me ESRD HD mwf [facility] UNIT ( [id number]) c/o incr THACKER x 2 months despite cont decreasing DWT with extra fluid removed duing HD. Seen by Cards today ( AYAN) and was diretly adm to hosp frr furhtfarshad eval/Tx per Dr BOTELLO. PMH significant for?HFrEF, ESRD on HD Mon/Tue/Tue, prostate cancer with metastasis to the bones, anemia of chronic disease, hx of erosive gastritis, and restless leg syndromw Last echocardiogram on 07/19/2023 which showed new reduced LVEF of 45-50% and small to moderate pericardial effusion. Review of Systems Review of Systems: Increasing SOB and THACKER Paroxysmal nocturnal dyspnea Denies orthopnea No lower leg edema Denies chest pain/pressure, palpitations No fever, chills, nausea, vomiting, abdominal pain <PITO Clement - Last Filed: 08/04/23 23:04> [facility] Medical History: Medical History Creatinine elevation Urinary retention History of upper gastrointestinal bleeding A-V fistula Fusion of lumbar spine Chronic kidney disease Urinary tract infection Enlarged prostate Kidney disease Elevated PSA Anemia Metabolic acidosis Bilateral hydronephrosis Hypocalcemia Acute anemia Acute kidney injury <PITO Clement - Last Filed: 08/04/23 23:04> Surgical History: Surgical History History of fusion of cervical spine Hx of esophagogastroduodenoscopy History of transurethral resection of prostate S/P arteriovenous (AV) fistula creation History of hip replacement, total <PITO Clement - Last Filed: 08/04/23 23:04> Social History: Social History Household Members: Other Household Members Other:: sister Housing: House Housing Other:: mobile home Do you presently have visiting nurse or other home services: No Alcohol intake: former Patient Tobacco Use Status: Former Tobacco user Quit Date: 8 years ago Tobacco use type: Cigarette Years Smoked: 30 Smoked in Last 30 Days: No e-Cigarette/Vaping Use: Former Use Use of substances other than those prescribed or required for medical reasons: No Substance Use Type: Marijuana Substance Use Frequency: Daily Have you been hit, kicked, punched, or otherwise hurt by someone within the past year? If so, by whom?: No Do you feel safe in your current relationship?: No Current Relationship Is there a partner from a previous relationship who is making you feel unsafe now?: No Are you made to feel afraid or neglected: No Advance Directives: No Advance Directives Information Provided: No Do you have thoughts of harming others: None Do you have a plan to hurt others: No Plan Recently lost weight without trying: No Nutrition Risks: No Nutritional Risk Poor oral hygiene: No service: No Current occupational status: disabled <PITO Clement - Last Filed: 08/04/23 23:04> Meds Allergies/Adverse reactions: Allergies Allergy/AdvReac Type Severity Reaction Status Date / Time No Known Allergies Allergy Verified 07/08/23 11:44 [No Known Allergies*] <PITO Clement - Last Filed: 08/04/23 23:04> Active Medications: Current Medications Acetaminophen (Acetaminophen 325 Mg Tablet) 650 mg PO Q6H PRN PRN Reason: Pain, Mild (Pain Scale 1-3) Heparin Sodium (Porcine) (Heparin Sodium,Porcine 5,000 Unit/Ml Vial) 5,000 unit SUBCUT Q12H [facility] Last Admin: 08/04/23 20:12 Dose: 5,000 unit Melatonin (Melatonin 3 Mg Tablet) 6 mg PO BEDTIME PRN PRN Reason: Insomnia Ondansetron HCl (Ondansetron Hcl 4 Mg/2 Ml Vial) 4 mg IVPUSH Q8H PRN PRN Reason: Nausea and Vomiting Sodium Chloride (0.9 % Sodium Chloride Flush 3 Ml Syringe) 3 ml IVFLUSH QSHIFT [facility] <PITO Clement - Last Filed: 08/04/23 23:04> Home medications: Home Medications Medication Instructions Recorded Confirmed Last Taken Type blood pressure test kit-large #1 ea 03/18/22 12/17/22 Unknown History hydralazine 10 mg tablet 10 mg PO BEDTIME 03/18/22 08/04/23 Unknown History prednisone 5 mg tablet 5 mg PO DAILY 06/08/22 08/04/23 03/16/23 05:00 History amlodipine 10 mg tablet 10 mg PO BEDTIME 12/17/22 08/04/23 Unknown History denosumab 60 mg/mL subcutaneous 60 mg subcut [id number] 02/24/23 08/04/23 Unknown History syringe (Prolia) leuprolide acetate (6 month) 45 mg 45 mg subcut [id number] 02/24/23 08/04/23 Unknown History (6 month) subcutaneous syringe (Eligard) albuterol sulfate 90 mcg/actuation 2 puff inhalation Q4H PRN Wheezing 08/04/23 08/04/23 Unknown History aerosol inhaler (Ventolin HFA) ropinirole 2 mg tablet 2 mg PO DAILY 08/04/23 08/04/23 Unknown History ropinirole 2 mg tablet 2 mg PO MOWEFR 08/04/23 08/04/23 Unknown History <PITO Celment - Last Filed: 08/04/23 23:04> Plan ESRD mwf adm with incr THACKER prog worsening apst 2 months despite decreasing DWT over past 2 moths with incr fluid removal duering HD 1. THACKER: ques [facility] vs other given CXR not thatt impressive; at this point will cont aggressive HD/UF and reassess DWT and breathing; card to eval with repeat echo; may eed pulm eval if SOB persist despite optimization of fluid removal 2. [place] Prostate Ca PLAN: HD/UF 08/05 and poss extra UF 08/06; card eval; may need pulm eval as well will follow w team Procedures Date of Service Date of Service: 08/05/23
--- NOTE | 2023-08-05 10:41 | PM.CNCAR ---
History of Present Illness History of Present Illness Date of Service: 08/05/23 Requesting physician: Sorin Booker Chief complaint: Dyspnea, CHF Narrative: [age] year gentleman who is admitted from cardiology clinic yesterday with Dr. Zhang. He has background of end-stage renal disease on hemodialysis, anemia, metastatic prostate cancer, hypertension and new diagnosis of mildly reduced ejection fraction by echocardiography. ECHO done on [id number] showing EF 45-50% with grade 3 diastolic dysfunction, mild mitral valve regurgitation, tulak-[id number] pericardial effusion more prominent near the right atrium. He came to the office yesterday and was complaining of worsening shortness of breath. After discussion he was sent to the emergency department. He was seen today on hemodialysis. He said he is feeling okay currently. Denying any chest discomfort or significant shortness of breath currently. Blood pressure is elevated. He is due to get a limited echocardiogram to assess the pericardial effusion. [facility] Past Medical History Medical History Creatinine elevation Urinary retention History of upper gastrointestinal bleeding A-V fistula Fusion of lumbar spine Chronic kidney disease Urinary tract infection Enlarged prostate Kidney disease Elevated PSA Anemia Metabolic acidosis Bilateral hydronephrosis Hypocalcemia Acute anemia Acute kidney injury Surgical History Surgical History History of fusion of cervical spine Hx of esophagogastroduodenoscopy History of transurethral resection of prostate S/P arteriovenous (AV) fistula creation History of hip replacement, total Social History Social History Household Members: Other Household Members Other:: sister Housing: House Housing Other:: mobile home Do you presently have visiting nurse or other home services: No Alcohol intake: former Patient Tobacco Use Status: Former Tobacco user Quit Date: 8 years ago Tobacco use type: Cigarette Years Smoked: 30 Smoked in Last 30 Days: No e-Cigarette/Vaping Use: Former Use Use of substances other than those prescribed or required for medical reasons: No Substance Use Type: Marijuana Substance Use Frequency: Daily Currently Displaying Signs/Symptoms of Drug Intoxication Withdrawal: No Have you been hit, kicked, punched, or otherwise hurt by someone within the past year? If so, by whom?: No Do you feel safe in your current relationship?: No Current Relationship Is there a partner from a previous relationship who is making you feel unsafe now?: No Are you made to feel afraid or neglected: No Advance Directives: No Advance Directives Information Provided: No Do you have thoughts of harming others: None Do you have a plan to hurt others: No Plan Recently lost weight without trying: No Nutrition Risks: No Nutritional Risk Poor oral hygiene: No service: No Current occupational status: disabled Meds Allergies Allergy/AdvReac Type Severity Reaction Status Date / Time No Known Allergies Allergy Verified 07/08/23 11:44 [No Known Allergies*] Active Medications: Current Medications Acetaminophen (Acetaminophen 325 Mg Tablet) 650 mg PO Q6H PRN PRN Reason: Pain, Mild (Pain Scale 1-3) Albuterol Sulfate (Albuterol Sulfate 90 Mcg 8 Gm Inhaler) 2 puff INHALE Q4H PRN PRN Reason: Wheezing Amlodipine Besylate (Amlodipine Besylate 10 Mg Tablet) 10 mg PO BEDTIME [facility]; Protocol Last Admin: 08/04/23 23:25 Dose: 10 mg Heparin Sodium (Porcine) (Heparin Sodium,Porcine 5,000 Unit/Ml Vial) 5,000 unit SUBCUT Q12H [facility] Last Admin: 08/04/23 20:12 Dose: 5,000 unit Hydralazine HCl (Hydralazine Hcl 10 Mg Tablet) 10 mg PO BEDTIME [facility]; Protocol Last Admin: 08/04/23 23:25 Dose: 10 mg Melatonin (Melatonin 3 Mg Tablet) 6 mg PO BEDTIME PRN PRN Reason: Insomnia Ondansetron HCl (Ondansetron Hcl 4 Mg/2 Ml Vial) 4 mg IVPUSH Q8H PRN PRN Reason: Nausea and Vomiting Ropinirole HCl (Ropinirole Hcl 2 Mg Tablet) 2 mg PO DAILY [facility] Last Admin: 08/04/23 23:24 Dose: 2 mg Ropinirole HCl (Ropinirole Hcl 2 Mg Tablet) 2 mg PO MoWeFr@0900 [facility] Sodium Chloride (0.9 % Sodium Chloride Flush 3 Ml Syringe) 3 ml IVFLUSH QSHIFT [facility] Last Admin: 08/04/23 23:24 Dose: 3 ml Home Medications Medication Instructions Recorded Confirmed Last Taken Type blood pressure test kit-large #1 ea 03/18/22 12/17/22 Unknown History hydralazine 10 mg tablet 10 mg PO BEDTIME 08/18/22 01/04/24 Unknown History prednisone 5 mg tablet 5 mg PO DAILY 06/08/22 08/04/23 03/16/23 05:00 History amlodipine 10 mg tablet 10 mg PO BEDTIME 12/17/22 08/04/23 Unknown History denosumab 60 mg/mL subcutaneous 60 mg subcut [id number] 02/24/23 08/04/23 Unknown History syringe (Prolia) leuprolide acetate (6 month) 45 mg 45 mg subcut [id number] 02/24/23 08/04/23 Unknown History (6 month) subcutaneous syringe (Eligard) albuterol sulfate 90 mcg/actuation 2 puff inhalation Q4H PRN Wheezing 08/04/23 08/04/23 Unknown History aerosol inhaler (Ventolin HFA) ropinirole 2 mg tablet 2 mg PO DAILY 08/04/23 08/04/23 Unknown History ropinirole 2 mg tablet 2 mg PO MOWEFR 08/04/23 08/04/23 Unknown History Physical Exam Vital Signs: Vital Signs: Last Vital Signs Temp 96 F L 08/05/23 06:45 Pulse 72 08/05/23 06:45 Resp 17 08/05/23 06:45 BP 160/79 H 08/05/23 06:45 Pulse Ox 96 08/05/23 06:45 O2 Del Method Nasal Cannula 08/05/23 06:45 O2 Flow Rate 2 08/05/23 06:45 Oxygen Flow Rate 2 08/04/23 14:43 BMI result Body Mass Index 25.9 GENERAL APPEARANCE: in no acute distress, pleasant. Currently on hemodialysis. SKIN: no suspicious lesions, warm and dry. HEART: no murmurs, regular rate and rhythm. LUNGS: clear to auscultation anteriorly. ABDOMEN: soft, nontender. EXTREMITIES: no edema. PERIPHERAL PULSES: equal. NEUROLOGIC: No gross deficits, AAO X 3 Objective Labs and Meds 08/05/23 06:08 08/05/23 06:08 Lab results: Laboratory Results - last 24 hr 08/04/23 08/04/23 08/05/23 17:18 18:50 06:08 WBC 6.9 5.8 RBC 3.53 L D 3.15 L Hgb 10.2 L D 9.1 L Hct 31.0 L D 27.7 L MCV 87.8 87.9 MCH 28.9 28.9 MCHC 32.9 32.9 RDW 17.2 H 17.0 H Plt Count 202 D 195 MPV 9.7 10.2 Immature Gran % (Auto) 0.4 0.5 H Neut % (Auto) 73.6 H 69.8 Lymph % (Auto) 17.5 L 20.1 [place] % (Auto) 5.9 6.3 Eos % (Auto) 1.9 2.4 Baso % (Auto) 0.7 0.9 Lymph # (Auto) 1.2 1.2 [place] # (Auto) 0.4 0.4 Eos # (Auto) 0.1 0.1 Baso # (Auto) 0.1 0.1 Abs Immat Gran (auto) 0.03 0.03 Absolute Neuts (auto) 5.1 4.1 Absolute Nucleated RBC 0.000 0.000 Nucleated RBC % (auto) 0.0 0.0 PT 11.1 INR 0.9 APTT 31.6 Sodium 135 135 Potassium 4.7 4.9 Chloride 94 L 96 Carbon Dioxide 28 28 Anion Gap 18 16 BUN 39 H 44 H Creatinine 5.08 H* 5.92 H* Estim Creat Clear Calc 12.1 10.4 Estimated GFR 12 10 Random Glucose 143 H 107 Calcium 10.4 H D 9.5 D Total Bilirubin 1.1 H AST 16 ALT 16 Alkaline Phosphatase 96 Troponin I High Sens 85.3 H 76.7 H B-Natriuretic Peptide 3821 H Total Protein 6.6 Albumin 4.1 Influenza Type A (PCR) NEGATIVE Influenza Type B (PCR) NEGATIVE RSV RNA Qual (PCR) NEGATIVE SARS-CoV-2 RNA (RT-PCR) NEGATIVE Imaging Radiologist's impression: Impressions Chest X-Ray 08/04/23 15:55 IMPRESSION: 1. Persistent density at the right lung base. This is due to a small to moderate volume right pleural effusion. 2. Increasing patchy reticular airspace opacity at the left lung base. 3. Persistent mild central pulmonary vascular prominence without overt pulmonary edema 4. Bone metastatic changes left humeral head Assessment and Plan (1) CHF (congestive heart failure): Status: Acute (2) HTN (hypertension): Status: Acute (3) ESRD (end stage renal disease): Status: Acute Plan Pleasant 63 year gentleman with end-stage renal disease, metastatic prostate cancer and mild cardiomyopathy by echocardiography. He also has a camjx-vy-amhjchui pericardial effusion based on echo from July 2023. Presenting with worsening shortness of breath. Etiologies are multiple including anemia, volume overload and potential worsening of pericardial effusion. He has not hypotensive and is not acting like tamponade currently. He is currently getting dialysis and will have some fluid removal there. Change hydralazine to 25 mg 3 times a day. I am not sure whether he makes any urine but if he does he should get IV diuretics also to prevent hypovolemia. Nephrology is following along with us and can advise. We will review echocardiography and give further recommendation in case we need to do any pericardiocentesis although clinically he has not acting like pericardial tamponade. Thank you for allowing me to participate in the care of your patient. Please feel free to contact me if you have any questions. Procedures Date of Service Date of Service: 08/05/23
[2023-08-05 13:25] VITALS: BP 152/74; PULSE 78; RESP 16; TEMP 36.6; O2SAT 95
--- NOTE | 2023-08-05 13:25 | HO.PM.IMPN ---
Subjective Subjective Date of Service: 08/05/23 Interval History: 4.1L fluid removed during HD feels much better Review of Systems Review of Systems: Yes all other systems are reviewed and are negative Physical Exam Vital Signs: Vital Signs: Last Vital Signs Temp 96 F L 08/05/23 06:45 Pulse 72 08/05/23 06:45 Resp 17 08/05/23 06:45 BP 160/79 H 08/05/23 06:45 Pulse Ox 96 08/05/23 06:45 O2 Del Method Nasal Cannula 08/05/23 06:45 O2 Flow Rate 2 08/05/23 06:45 Oxygen Flow Rate 2 08/04/23 14:43 BMI result Body Mass Index 25.9 Gen: in no acute distress HEENT: sclera anicteric, moist mucus membranes Neck: supple Lungs: diminished R base Heart: regular rate and rhythm, no murmurs Abd: soft, non-tender, non-distended Ext: no edema, LUE fistula Skin: warm/well-perfused Neuro: alert and oriented x3, no focal findings Psych: appropriate affect Objective Data Active Medications Acetaminophen (Acetaminophen 325 Mg Tablet) 650 mg PO Q6H PRN PRN Reason: Pain, Mild (Pain Scale 1-3) Albuterol Sulfate (Albuterol Sulfate 90 Mcg 8 Gm Inhaler) 2 puff INHALE Q4H PRN PRN Reason: Wheezing Amlodipine Besylate (Amlodipine Besylate 10 Mg Tablet) 10 mg PO BEDTIME [facility]; Protocol Last Admin: 08/04/23 23:25 Dose: 10 mg Documented By: LESTER Heparin Sodium (Porcine) (Heparin Sodium,Porcine 5,000 Unit/Ml Vial) 5,000 unit SUBCUT Q12H [facility] Last Admin: 08/05/23 13:12 Dose: 5,000 unit Documented By: BI Hydralazine HCl (Hydralazine Hcl 10 Mg Tablet) 10 mg PO BEDTIME [facility]; Protocol Last Admin: 08/04/23 23:25 Dose: 10 mg Documented By: LESTER Melatonin (Melatonin 3 Mg Tablet) 6 mg PO BEDTIME PRN PRN Reason: Insomnia Ondansetron HCl (Ondansetron Hcl 4 Mg/2 Ml Vial) 4 mg IVPUSH Q8H PRN PRN Reason: Nausea and Vomiting Ropinirole HCl (Ropinirole Hcl 2 Mg Tablet) 2 mg PO DAILY [facility] Last Admin: 08/04/23 23:24 Dose: 2 mg Documented By: LESTER Comments: pt reports taking at bed time, md petersen Ropinirole HCl (Ropinirole Hcl 2 Mg Tablet) 2 mg PO MoWeFr@0900 [facility] Last Admin: 08/05/23 13:11 Dose: Not Given Documented By: BI Non-Admin Reason: Off unit: Dialysis Sodium Chloride (0.9 % Sodium Chloride Flush 3 Ml Syringe) 3 ml IVFLUSH QSHIFT [facility] Last Admin: 08/05/23 13:09 Dose: Not Given Documented By: BI Non-Admin Reason: Off unit: Dialysis Labs 08/05/23 06:08 08/05/23 06:08 Labs: Laboratory Results - last 24 hr 08/04/23 08/04/23 08/05/23 17:18 18:50 06:08 MCV 87.8 87.9 MCH 28.9 28.9 MCHC 32.9 32.9 RDW 17.2 H 17.0 H Plt Count 202 D 195 MPV 9.7 10.2 Immature Gran % (Auto) 0.4 0.5 H Neut % (Auto) 73.6 H 69.8 Lymph % (Auto) 17.5 L 20.1 [place] % (Auto) 5.9 6.3 Eos % (Auto) 1.9 2.4 Baso % (Auto) 0.7 0.9 Lymph # (Auto) 1.2 1.2 [place] # (Auto) 0.4 0.4 Eos # (Auto) 0.1 0.1 Baso # (Auto) 0.1 0.1 Abs Immat Gran (auto) 0.03 0.03 Absolute Neuts (auto) 5.1 4.1 Absolute Nucleated RBC 0.000 0.000 Nucleated RBC % (auto) 0.0 0.0 PT 11.1 INR 0.9 APTT 31.6 Anion Gap 18 16 Estim Creat Clear Calc 12.1 10.4 Estimated GFR 12 10 Random Glucose 143 H 107 Calcium 10.4 H D 9.5 D Total Bilirubin 1.1 H AST 16 ALT 16 Alkaline Phosphatase 96 B-Natriuretic Peptide 3821 H Total Protein 6.6 Albumin 4.1 Influenza Type A (PCR) NEGATIVE Influenza Type B (PCR) NEGATIVE RSV RNA Qual (PCR) NEGATIVE SARS-CoV-2 RNA (RT-PCR) NEGATIVE Assessment and Plan (1) CHF (congestive heart failure): Status: Acute Plan d2 63yo M with ESRD on HD, metastatic prostate CA, HF with mildly reduced EF [45% 07/19/23], pericardial effusion sent in from Cardiology Clinic due to worsening dyspnea acute-chronic HF with mildly reduced EF hypervolemia - HD today, again tomorrow pericardial effusion - limited TTE to evaluate ESRD on HD MWF - Nephrology consulted Tn-I elevation - likely due to ESRD RLS - continue ropinirole HTN - amlodipine + hydralazine VTE ppx - UFH dispo - eventual home In my clinical judgment, the patient requires continued inpatient hospitalization for the following reasons: UF Total time managing care of this patient today: 35 minutes. Quality Stroke Does the patient have a stroke diagnosis?: No VTE Prior VTE?: No VTE Risk Level:: Medical - moderate - high VTE Device Contraindication: Treatment Not Indicated VTE Drug Contraindication: N/A - Med Ordered
--- NOTE | 2023-08-05 14:15 | MHC.CM.PN ---
IMM DELIVERED. PATIENT FROM HOME W/ SISTER. AMBULATES W/ CANE. INDEPENDENT W/ ADL'S. HD AT [facility] M/W/F/ 5AM, 4 HOURS. PCP: VALERI DU NP HCP: STATES HCP IS SISTER XAVIER, COPY REQUESTED DP: GOAL IS HOME SELF CARE. FAMILY TO TRANSPORT. CM WILL FOLLOW FOR DC NEEDS.
[2023-08-05 16:00] VITALS: BP 165/82; PULSE 70; RESP 18; TEMP 36.9; O2SAT 98
[2023-08-05 20:00] VITALS: BP 159/73; PULSE 75; RESP 16; TEMP 36.8; O2SAT 97
--- NOTE | 2023-08-06 02:09 | PM.PNNEP ---
Subjective Subjective Date of Service: 08/06/23 Interval history: Seen and examined on HD,breathing improved Physical Exam Vital Signs: Vital Signs: Last Vital Signs Temp 98.2 F 08/05/23 20:00 Pulse 75 08/05/23 20:00 Resp 16 08/05/23 20:00 BP 159/73 H 08/05/23 20:00 Pulse Ox 97 08/05/23 20:00 O2 Del Method Room Air 08/05/23 20:00 O2 Flow Rate 2 08/05/23 16:00 Oxygen Flow Rate 2 08/04/23 14:43 BMI result Body Mass Index 25.9 Objective Data Labs 08/05/23 06:08 08/05/23 06:08 Labs: Laboratory Results - last 24 hr 08/05/23 06:08 WBC 5.8 RBC 3.15 L Hgb 9.1 L Hct 27.7 L MCV 87.9 MCH 28.9 MCHC 32.9 RDW 17.0 H Plt Count 195 MPV 10.2 Immature Gran % (Auto) 0.5 H Neut % (Auto) 69.8 Lymph % (Auto) 20.1 [place] % (Auto) 6.3 Eos % (Auto) 2.4 Baso % (Auto) 0.9 Lymph # (Auto) 1.2 [place] # (Auto) 0.4 Eos # (Auto) 0.1 Baso # (Auto) 0.1 Abs Immat Gran (auto) 0.03 Absolute Neuts (auto) 4.1 Absolute Nucleated RBC 0.000 Nucleated RBC % (auto) 0.0 Sodium 135 Potassium 4.9 Chloride 96 Carbon Dioxide 28 Anion Gap 16 BUN 44 H Creatinine 5.92 H* Estim Creat Clear Calc 10.4 Estimated GFR 10 Random Glucose 107 Calcium 9.5 D Troponin I High Sens 76.7 H Procedures Date of Service Date of Service: 08/06/23 Assessment & Plan Assessment and plan (1) CHF (congestive heart failure): Status: Acute Plan 63yo M with ESRD on HD, metastatic prostate CA, HF with mildly reduced EF [45% 07/19/23], pericardial effusion sent in from Cardiology Clinic due to worsening dyspnea 1. SOB: w/u in progress and CHF/pleural effussionis presumed to be culprit BUT concern for other contributing factors given SOB seems out of porportion to BNP and CXR abnl 2. Pericardial effssion:w/u by card;will check ANURADHA--on hydralazine can be assoc with SLE like syn 3. ESRD:usu mwff SPFLD GOPI 4. Anemia 5.Pleural effussion REC:extra UF 08/06/23 and reassess SOB, card eval of CHF and pericardial effussion; will check ANURADHA Time Spent With Patient Time: Total time managing care of this patient today ____ minutes. Progress Note: Quality Stroke Does the patient have a stroke diagnosis?: No
[2023-08-06 04:00] VITALS: BP 135/63; PULSE 64; RESP 16; TEMP 36.6; O2SAT 96
[2023-08-06 07:37] LABS: Anion Gap 12 (12-20); Blood Urea Nitrogen 32 mg/dL (9-16); Calcium 9.1 mg/dL (8.4-10.2); Carbon Dioxide 25 mmol/L (22-29); Chloride 99 mmol/L (96-108); Creatinine Clr Calc Pharmacy 13.6; Estimated Glomerular Filt Rate 13; Glucose Random 90 mg/dL (60-115); Potassium 4.4 mmol/L (3.3-5.1); Sodium 132 mmol/L (135-145)
[2023-08-06 07:41] VITALS: BP 169/79; PULSE 82; RESP 18; TEMP 36.9; O2SAT 98
[2023-08-06 10:16] VITALS: O2SAT 94
--- NOTE | 2023-08-06 12:38 | PM.PNCARD ---
Subjective Subjective Date of Service: 08/06/23 Interval history: Seen examined at bedside on dialysis. He is saying he is feeling better with extra hemodialysis session. Hemoglobin stable. No chest discomfort. Physical Exam Vital Signs: Last Vital Signs Temp 98.5 F 08/06/23 07:41 Pulse 82 08/06/23 07:41 Resp 18 08/06/23 07:41 BP 169/79 H 08/06/23 07:41 Pulse Ox 94 08/06/23 10:16 O2 Del Method Room Air 08/06/23 10:16 O2 Flow Rate 2 08/06/23 07:41 Oxygen Flow Rate 2 08/04/23 14:43 BMI result Body Mass Index 25.9 GENERAL APPEARANCE: in no acute distress, pleasant. Currently on hemodialysis. SKIN: no suspicious lesions, warm and dry. HEART: no murmurs, regular rate and rhythm. LUNGS: clear to auscultation anteriorly. ABDOMEN: soft, nontender. EXTREMITIES: no edema. PERIPHERAL PULSES: equal. NEUROLOGIC: No gross deficits, AAO X 3 Objective Labs and Meds 08/06/23 06:33 08/06/23 06:33 Lab results: Laboratory Results - last 24 hr 08/06/23 06:33 WBC 5.9 RBC 3.31 L Hgb 9.8 L Hct 28.9 L MCV 87.3 MCH 29.6 MCHC 33.9 RDW 16.8 H Plt Count 219 MPV 10.8 Absolute Nucleated RBC 0.000 Nucleated RBC % (auto) 0.0 Sodium 132 L Potassium 4.4 Chloride 99 Carbon Dioxide 25 Anion Gap 12 BUN 32 H Creatinine 4.52 H* Estim Creat Clear Calc 13.6 Estimated GFR 13 Random Glucose 90 Calcium 9.1 Magnesium 2.0 B-Natriuretic Peptide 2753 H Progress Note: A&P Assessment and plan (1) CHF (congestive heart failure): Status: Acute (2) Congestive heart failure: Status: Acute (3) HTN (hypertension): Status: Acute (4) ESRD (end stage renal disease): Status: Acute Plan [age] year gentleman here for follow-up. He has end-stage renal disease on hemodialysis. Recent diagnosis of cardiomyopathy and small to moderate-sized pericardial effusion. Repeat echocardiography is showing similar size pericardial effusion. Clinically not tamponade also. Dyspnea is improving with hemodialysis and was likely related to volume overload. Hemoglobin is stable and he does not need blood transfusion currently. He has mild cardiomyopathy and will need ischemic evaluation. I think we can do this as outpatient. If clinically improving and ready for discharge and can go home. Blood pressure management as per Nephrology. Thank you for allowing me to participate in the care of your patient. Please feel free to contact me if you have any questions. Time Spent With Patient Time: Total time managing care of this patient today ____ minutes. Progress Note: Quality Stroke Does the patient have a stroke diagnosis?: No Procedures Date of Service Date of Service: 08/06/23
--- NOTE | 2023-08-06 12:55 | HO.PM.IMPN ---
Subjective Subjective Date of Service: 08/06/23 Interval History: Offers no acute complaints denies shortness of breath, makes urine, denies fever, no chills, scheduled for hemodialysis today, tolerating diet no acute issues overnight. Review of Systems All other system reviewed and negative. Physical Exam Vital Signs: Vital Signs: Last Vital Signs Temp 98.5 F 08/06/23 07:41 Pulse 82 08/06/23 07:41 Resp 18 08/06/23 07:41 BP 169/79 H 08/06/23 07:41 Pulse Ox 94 08/06/23 10:16 O2 Del Method Room Air 08/06/23 10:16 O2 Flow Rate 2 08/06/23 07:41 Oxygen Flow Rate 2 08/04/23 14:43 BMI result Body Mass Index 25.9 Const: Other: Gen: Awake alert x3, in no acute distress HEENT: sclera anicteric, moist mucus membranes Neck: supple Lungs: Clear to auscultation, no rhonchi, no wheeze Heart: regular rate and rhythm, no murmurs Abd: soft, non-tender, non-distended Ext: no edema, LUE fistula Skin: warm/well-perfused Neuro: alert and oriented x3, no focal findings Psych: appropriate affect Objective Data Active Medications Acetaminophen (Acetaminophen 325 Mg Tablet) 650 mg PO Q6H PRN PRN Reason: Pain, Mild (Pain Scale 1-3) Albuterol Sulfate (Albuterol Sulfate 90 Mcg 8 Gm Inhaler) 2 puff INHALE Q4H PRN PRN Reason: Wheezing Amlodipine Besylate (Amlodipine Besylate 10 Mg Tablet) 10 mg PO BEDTIME [facility]; Protocol Last Admin: 08/05/23 20:30 Dose: 10 mg Documented By: SONNY Heparin Sodium (Porcine) (Heparin Sodium,Porcine 5,000 Unit/Ml Vial) 5,000 unit SUBCUT Q12H [facility] Last Admin: 08/06/23 09:10 Dose: 5,000 unit Documented By: ROCAEL Hydralazine HCl (Hydralazine Hcl 25 Mg Tablet) 25 mg PO TID [facility]; Protocol Last Admin: 08/06/23 09:10 Dose: 25 mg Documented By: ROCAEL Melatonin (Melatonin 3 Mg Tablet) 6 mg PO BEDTIME PRN PRN Reason: Insomnia Ondansetron HCl (Ondansetron Hcl 4 Mg/2 Ml Vial) 4 mg IVPUSH Q8H PRN PRN Reason: Nausea and Vomiting Ropinirole HCl (Ropinirole Hcl 2 Mg Tablet) 2 mg PO DAILY [facility] Last Admin: 08/06/23 09:10 Dose: 2 mg Documented By: ROCAEL Ropinirole HCl (Ropinirole Hcl 2 Mg Tablet) 2 mg PO MoWeFr@0900 [facility] Last Admin: 08/05/23 13:11 Dose: Not Given Documented By: BI Non-Admin Reason: Off unit: Dialysis Sodium Chloride (0.9 % Sodium Chloride Flush 3 Ml Syringe) 3 ml IVFLUSH QSHIFT [facility] Last Admin: 08/06/23 09:10 Dose: 3 ml Documented By: ROCAEL Labs 08/06/23 06:33 08/06/23 06:33 Labs: Laboratory Results - last 24 hr 08/06/23 06:33 MCV 87.3 MCH 29.6 MCHC 33.9 RDW 16.8 H Plt Count 219 MPV 10.8 Absolute Nucleated RBC 0.000 Nucleated RBC % (auto) 0.0 Anion Gap 12 Estim Creat Clear Calc 13.6 Estimated GFR 13 Random Glucose 90 Calcium 9.1 Magnesium 2.0 B-Natriuretic Peptide 2753 H Assessment and Plan (1) CHF (congestive heart failure): Status: Acute Plan 63yo M with ESRD on HD, metastatic prostate CA, HF with mildly reduced EF [45% 07/19/23], pericardial effusion sent in from Cardiology Clinic due to worsening dyspnea acute-chronic HF with mildly reduced EF No shortness of breath, no chest pain, hypervolemia, status post hemodialysis on August 05 and scheduled again for hemodialysis today, pericardial effusion - limited TTE showed small to moderate pericardial effusion, EF 45-50% case discussed with Cardiology, no intervention planned. ESRD on HD MWF -seen by Nephrology had hemodialysis yesterday and today, will discuss use of diuretics, is stable hematocrit, likely chronic normocytic anemia due to renal disease Tn-I elevation - likely due to ESRD RLS - continue ropinirole HTN -suboptimal control on amlodipine + hydralazine follow BP VTE ppx - UFH dispo - eventual home In my clinical judgment, the patient requires continued inpatient hospitalization for the following reasons: UF Total time managing care of this patient today: 35 minutes. Quality Stroke Does the patient have a stroke diagnosis?: No VTE Prior VTE?: No VTE Risk Level:: Medical - moderate - high VTE Device Contraindication: Treatment Not Indicated VTE Drug Contraindication: N/A - Med Ordered
[2023-08-06 13:29] VITALS: BP 151/72; PULSE 76; RESP 18; TEMP 37.3; O2SAT 92
[2023-08-06 16:00] VITALS: BP 149/63; PULSE 62; TEMP 36.6; O2SAT 94
[2023-08-06 19:37] VITALS: BP 159/70; PULSE 66; RESP 18; TEMP 36.7; O2SAT 95
[2023-08-07 04:00] VITALS: BP 119/64; PULSE 61; RESP 16; TEMP 36.5; O2SAT 95
[2023-08-07 07:58] VITALS: BP 162/78; PULSE 75; RESP 18; TEMP 36.1; O2SAT 97
--- NOTE | 2023-08-07 10:34 | PM.DS ---
DS: Providers Provider Date of Service: 08/07/23 Date of admission: 08/04/23 19:03 Primary care physician: Unknown Physician Consults: 08/04/23 19:02 Consult to Nephrology Routine Consulting Provider: Juvenal Cr Reason for consultation: ESRD 08/04/23 23:03 Consult to Cardiology Routine [place]ing [place] [facility] [place] [facility] Reason for consultation: HFrEF exacerbation, pt w/ ESRD on HD, ?worsening pericardial effusion DS: Diagnosis Discharge Diagnosis (1) CHF (congestive heart failure): Status: Acute DS: Summary Hospital Course Hospital Course: History of presenting illness Chief Complaint: THACKER, PND Pt is a 63-year-old male with a PMH significant for?HFrEF, ESRD on HD Tue/Tue/Tue, prostate cancer with metastasis to the bones, anemia of chronic disease, hx of erosive gastritis, and restless leg syndromw who presents to the ED from Cardiology office for evaluation of symptoms suggestive decompensated congestive heart failure. Patient has been experiencing increased shortness of over the past month where he has been experiencing THACKER with minimal activity and walking 5-10 feet. Also has been experiencing increasing PND for the past 2 weeks. Received in echocardiogram on 07/19/2023 which showed new reduced LVEF of 45-50% and small to moderate pericardial effusion. Patient has experienced an increase fluid removal with dialysis from 3.5 kg 2 4 kg and was started on a 5 day course of Bumex, but without any relief. Patient was seen earlier today by Dr. Zhang in the office who referred him to the ED for IV diuresing, inpatient dialysis, and repeated limited echo to ensure pericardial effusion is not significantly worsened. Patient himself states he ?feels like there is water on my lungs. Denies fever, chills, nausea, vomiting, abdominal pain. No chest pain/pressure, palpitations. In the ED pt was hypertensive up to 171/77, tachypneic up to 24, and satting at 94% on 2 L NC. Labs were significant for stable H&H of 10.2/31.0, BUN 39, creatinine 5.09, troponin 85.3, and BNP 3821. Electrolytes largely WNL. Patient tested negative for influenza type a and B, RSV, and COVID. CXR showed small to moderate volume right pleural effusion, increasing patchy reticular airspace at the left lung base, persistent mild central pulmonary vascular prominence without overt pulmonary edema, and metastatic bone changes to the left humeral head. EKG demonstrated normal sinus rhythm without significant ST elevations or depressions. Pt was treated with furosemide 20 mg IV and nitroglycerin patch. Pt will be admitted to the hospital for treatment and further evaluation of acute HRrEF exacerbation in the setting of ESRD on HD. Hospital course: 63yo M with ESRD on HD, metastatic prostate CA, HF with mildly reduced EF [45% 07/19/23], pericardial effusion sent in from Cardiology Clinic due to worsening dyspnea admitted with the diagnosis of acute-chronic HF with mildly reduced EF, likely due to hypervolemia underwent extra ultrafiltration, shortness of breath resolved, patient hematocrit is stable iron studies within normal range, patient was evaluated for pericardial effusion and echocardiogram showed small to moderate pericardial effusion, EF 45-50% patient evaluated by dial polisher they recommend no intervention since no evidence of cardiac tamponade,was noted to have elevated blood pressures therefore dose of hydralazine increased to 25 mg t.i.d. 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 RLS - continue ropinirole Time Attestation Discharge coordination time: Greater than 30 minutes Quality: Safe Use of Opioids Does Pt have an Active Cancer Diagnosis on the Problem List?: No Quality: Stroke Does the patient have a stroke diagnosis?: No Physical Exam Vital Signs: Vital Signs: Last Vital Signs Temp 96.9 F 08/07/23 07:58 Pulse 75 08/07/23 07:58 Resp 18 08/07/23 07:58 BP 162/78 H 08/07/23 07:58 Pulse Ox 97 08/07/23 07:58 O2 Del Method Room Air 08/07/23 07:58 O2 Flow Rate 2 08/06/23 07:41 Oxygen Flow Rate 2 08/04/23 14:43 BMI result Body Mass Index 25.9 Const: Other: Gen: Awake alert x3, in no acute distress HEENT: sclera anicteric, moist mucus membranes Neck: supple Lungs: Clear to auscultation, no rhonchi, no wheeze Heart: regular rate and rhythm, no murmurs Abd: soft, non-tender, non-distended Ext: no edema, LUE fistula Skin: warm/well-perfused Neuro: alert and oriented x3, no focal findings Psych: appropriate affect DS: Data Data Completed and Pending Completed studies during hospitalization [Text1]: Procedures Dilation of Bilateral Ureters, Via Natural or Artificial Opening Endoscopic (04/01/21) Drainage of Left Kidney Pelvis with Drainage Device, Percutaneous Approach (04/01/21) Drainage of Right Kidney Pelvis with Drainage Device, Percutaneous Approach (04/01/21) Excision of Prostate, Via Natural or Artificial Opening, Diagnostic (05/28/21) Fluoroscopy of Kidneys, Ureters and Bladder (04/01/21) Insertion of Infusion Device into Superior Vena Cava, Percutaneous Approach (05/28/21) Insertion of Tunneled Vascular Access Device into Chest Subcutaneous Tissue and Fascia, Percutaneous Approach (05/28/21) Performance of Urinary Filtration, Intermittent, Less than 6 Hours Per Day (05/28/21) Transfusion of Nonautologous Red Blood Cells into Peripheral Vein, Percutaneous Approach (05/28/21) Labs on day of discharge: Laboratory Results - last 24 hr 08/07/23 06:29 Iron 64 TIBC 197 L % Saturation 32 Unsat Iron Binding 133 Ferritin 1285 H Discharge Plan Discharge Anticipated Discharge Date/Time: 08/07/23 10:32 Patient Disposition: Home, Self-Care Discharge Diagnosis: Acute on chronic CHF with reduced EF small to moderate pericardial effusion Hypertension Referrals: Physician,Unknown J [Primary Care Provider] - 1 Week Discharge Medications: New hydralazine 25 mg Tablet 25 mg PO TID Qty: 90 0RF Protocol: Hold for SBP< HOLD for SBP < : 90 Continued abiraterone 250 mg tablet 1,000 mg PO DAILY 90 Days Qty: 360 3RF Rx Instructions: must be taken on empty stomach, at least 1 hr before or 2 hrs after a meal/food ropinirole 2 mg tablet 2 mg PO DAILY ropinirole 2 mg tablet 2 mg PO MOWEFR Rx Instructions: ADDITIONAL FOR BEFORE DIAYLSIS (DME) blood pressure test kit-large Kit See Rx Instructions .ROUTE DAILY Qty: 1 Rx Instructions: As directed prednisone 5 mg tablet 5 mg PO DAILY amlodipine 10 mg tablet 10 mg PO BEDTIME Eligard (6 month) 45 mg syringe 45 mg subcut [id number] Prolia 60 mg/mL syringe 60 mg subcut [id number] albuterol sulfate [Ventolin HFA] 90 mcg/actuation HFA aerosol inhaler 2 puff inhalation Q4H PRN (Reason: Wheezing) Discontinued hydralazine 10 mg tablet 10 mg PO BEDTIME Discharge Orders: Discharge Order (Routine); Ordered 08/07/23 Ordered By: Gaye Calles Diet: Low fat, low cholesterol Activity on Discharge: As tolerated Stand Alone Forms: Patient Portal Discharge page Care Plan Goals: Continue hemodialysis Wednesdays and Fridays Follow blood pressure closely Dose of hydralazine increased to 25 mg 3 times a day f/u on ANURADHA report from pcp Health Concerns: End-stage renal disease Plan of Treatment: Outpatient follow-up with primary care physician call for appointment, outpatient follow-up with Nephrology Dr. Lara it Assessment: As above
--- NOTE | 2023-08-07 11:01 | MHC.CM.PN ---
order for home, self-care. TIM acknowldege.
[2023-08-09 14:38] LABS: Anti Nuclear Antibody Screen NEGATIVE (NEGATIVE)
== END 2023-08-07 11:34 | disposition home or self-care (01) | DRG 291 ==
LOC: HO.ED 19:11 → HO.EDOVER 19:22 → HO.S3 20:13
PROVIDERS: Family Medicine; Admitting Provider Student in an Organized Health Care Education/Training Program; Emergency Provider Emergency Medicine; PCP Registered Nurse; Visit Provider Hospitalist
DX: I13.0 Hypertensive heart and chronic kidney disease with heart failure and stage 1 through stage 4 chronic kidney disease, or unspecified chronic kidney disease (principal); I50.23 Acute on chronic systolic (congestive) heart failure; J96.01 Acute respiratory failure with hypoxia; N18.6 End stage renal disease; C79.51 Secondary malignant neoplasm of bone; I31.39 Other pericardial effusion (noninflammatory); E86.1 Hypovolemia; I42.9 Cardiomyopathy, unspecified; G25.81 Restless legs syndrome; D63.1 Anemia in chronic kidney disease; I34.0 Nonrheumatic mitral (valve) insufficiency; C61 Malignant neoplasm of prostate; D63.0 Anemia in neoplastic disease; Z99.2 Dependence on renal dialysis; Z20.822 Contact with and (suspected) exposure to COVID-19; Z87.891 Personal history of nicotine dependence; Z79.899 Other long term (current) drug therapy
CPT/HCPCS: 0241U; 36415; 71045; 80048; 80053; 82728; 83540; 83735; 83880; 84484; 85025; 85027; 85610; 85730; 86038; 90999; 93005; 93308; 99212; 99285; J1644; J1940; Q9957

== ENCOUNTER 2023-08-04 19:03 | Outpatient (BNV) | payer MEDICARE, MEDICAID, SELFPAY | END 2023-08-05 07:00 | PROVIDERS: Admitting Provider Student in an Organized Health Care Education/Training Program; Emergency Provider Emergency Medicine; Visit Provider Internal Medicine Cardiovascular Disease | DX: I31.39 Other pericardial effusion (noninflammatory) (principal) | CPT/HCPCS: 93308 ==

== ENCOUNTER → 2023-08-04 19:03 | Outpatient (BNV) | payer MEDICARE, MEDICAID, SELFPAY | PROVIDERS: Admitting Provider Student in an Organized Health Care Education/Training Program; Emergency Provider Emergency Medicine; Visit Provider Internal Medicine Cardiovascular Disease | DX: I50.9 Heart failure, unspecified (principal); I12.0 Hypertensive chronic kidney disease with stage 5 chronic kidney disease or end stage renal disease; N18.6 End stage renal disease | CPT/HCPCS: 99223; 99232 ==

== ENCOUNTER → 2023-08-04 19:03 | Outpatient (BNV) | payer MEDICARE, MEDICAID, SELFPAY | PROVIDERS: Admitting Provider Student in an Organized Health Care Education/Training Program; Emergency Provider Emergency Medicine; Visit Provider Student in an Organized Health Care Education/Training Program | DX: I50.9 Heart failure, unspecified (principal) | CPT/HCPCS: 99223; 99232; 99239 ==

== ENCOUNTER 2023-08-29 11:14 | Outpatient (REF) | payer MEDICARE, MEDICAID, SELFPAY ==
[2023-08-29 13:21] LABS: Prostate Specific Antigen < 0.10 ng/mL (<0.05-4.0)
[2023-09-02 15:23] LABS: Testosterone, Total 3 ng/dL (250-1100)
== END 2023-08-29 11:15 | disposition home or self-care (01) ==
LOC: HO.LAB 11:14
PROVIDERS: Visit Provider Urology
DX: C61 Malignant neoplasm of prostate (principal); C79.51 Secondary malignant neoplasm of bone; Z12.5 Encounter for screening for malignant neoplasm of prostate
CPT/HCPCS: 36415; 84153; 84403

== ENCOUNTER 2023-09-07 13:38 | Outpatient (AMB) | payer MEDICARE, MEDICAID, SELFPAY ==
--- NOTE | 2023-09-07 13:44 | A.OFFVIS_ITS ---
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 He is a patient of Dr. Whitmore. He is seen for the following urologic issues - urinary retention with elevated creati nine - prostate cancer Continue 3 month review Target 3 years hormone therapy then reduction to intermittent anti-androgen Three month follow-up imaging Plan for removal of bilateral stents 08/24 <0.1 T 3 - GnRH - abiraterone 05/23 P 0.16, T <1 - abiraterone 02/20 P 0.15 T <1 - GnRH, abiraterone 01/21 CT shows stable metastatic prostate cancer Bilateral ureteric stents last changed 01/21 Urinary retention Incomplete bladder emptying Currently on dialysis Prostate cancer grade group 5 with metastatic disease - last GnRH 08/2022 - Current therapy GnRH with antiandrogen 02/20 GnRH with abiraterone - GnRH Prolia administered 08/23 GnRH therapy with abiraterone - Gn RH and Prolia administered 01/20 GnRH therapy with abiraterone - Gn RH and Prolia administered 04/21 - PSA 23 Prostate biopsy 06/21 Histologic type: Adenocarcinoma, acinar type Histologic grade: Evans score: - 5+4=9 (right apex), 4+5=9 (left mid, right mid), 4+4=8 (left apex), 4+3=7 (left base, right base) Number cores positive: 6 Total number of cores: 6 % of tissue involved: Greater than 95% Periprostatic fat inv.: Present Seminal vesicle inv.: Not identified Perineural inv.: Present LVI: Suspicious Staging - May 2021 - bone scan and CT scan with metastatic disease - 10/20 CT with sclerotic lesions spinal - 05/22 Bone Scan positive extensive spi ne - 11/21 CT scan - sclerotic lesions stabl e, stents in place PFSH Medical History HTN (hypertension) ESRD (end stage renal disease) Creatinine elevation Urinary retention History of upper gastrointestinal bleeding A-V fistula Fusion of lumbar spine Chronic kidney disease Urinary tract infection Enlarged prostate Kidney disease Elevated PSA Anemia Metabolic acidosis Bilateral hydronephrosis Hypocalcemia Acute anemia Acute kidney injury Surgical History History of fusion of cervical spine Hx of esophagogastroduodenoscopy History of transurethral resection of prostate S/P arteriovenous (AV) fistula creation History of hip replacement, total Social History Household Members: Other Household Members Other:: sister Housing: House Housing Other:: mobile home Do you presently have visiting nurse or other home services: No Alcohol intake: former Patient Tobacco Use Status: Former Tobacco user Quit Date: 8 years ago Tobacco use type: Cigarette Years Smoked: 30 e-Cigarette/Vaping Use: Former Use Substance Use Type: Marijuana service: No Current occupational status: disabled Review of Systems Const Denies chills and Denies fever(s) Card Reports no additional complaints and Denies syncope Resp Denies cough GI Denies abdominal pain and Denies heartburn Reports as per HPI and Denies change in libido Neuro Denies syncope Psych Denies change in libido Endo Denies change in libido Physical Exam Const General: cooperative, healthy appearing, comfortable and no acute distress Orientation/consciousness: patient oriented x3 HEENT Face and sinus: Yes normal facial exam Mouth: moist mucous membranes Neck Neck: Yes normal visual inspection, Yes full ROM and Yes trachea midline Chest Chest palpation & inspection: normal inspection of the chest Resp Effort & Inspection: normal respiratory effort, able to speak in complete sentences and no respiratory distress GI Inspection: Yes normal to inspection Back/Spine/Pelvis Cervical Spine: normal cervical lordosis Thoracic/Lumbar Spine: thoracic and lumbar spine normal to inspection Skin General skin exam: no rashes or lesions noted Neuro General: patient oriented x3, gait normal, tone normal and moves all extremities Extrem General: Yes normal to inspection and Yes capillary refill normal Office Meds Prolia 60 mg/mL subcutaneous syringe Performing Provider: Trevor Restrepo MD Performing Location: [facility] – [place] [facility] Administered by: Roberto Ford LPN on 09/07/23 14:06 Dose Route Admin Location Dispensed Lot Number Expiration Date [employer] 60 mg subcut left arm 1 mL [id number] 09/28/25 02308-616-41 [employer] Eligard (6 month) 45 mg (6 month) subcutaneous syringe Performing Provider: Trevor Restrepo MD Performing Location: [facility] – [place] [facility] Administered by: Roberto Ford LPN on 09/07/23 14:06 Dose Route Admin Location Dispensed Lot Number Expiration Date [facility] [employer] 45 mg subcut right arm 45 mg [id number] 08/01/24 79396-142-74 [employer] Assessment & Plan Assessment & Plan (1) Bilateral hydronephrosis: Code(s): N13.30 - Unspecified hydronephrosis (2) Prostate cancer metastatic to bone: Comment: 05/2021 - Grade Group 5 Code(s): C61 - Malignant neoplasm of prostate; C79.51 - Secondary malignant neoplasm of bone Plan Plan stent removal Three month follow-up imaging and lab work Orders: Orders CT abdomen pelvis wo IV con Today C61 - Malignant neoplasm of prostate, C79.51 - Secondary malignant neoplasm of bone, G89.3 - Neoplasm related pain (acute) (chronic) AMB Leuprolide Injection - Practice Supplied Today C61 - Malignant neoplasm of prostate, C79.51 - Secondary malignant neoplasm of bone AMB Denosumab Injection Practice Supplied Today C61 - Malignant neoplasm of prostate, C79.51 - Secondary malignant neoplasm of bone Prostate Specific Antigen 3 Months C61 - Malignant neoplasm of prostate, C79.51 - Secondary malignant neoplasm of bone Medications: New calcium carbonate (Calcium 500) 500 mg PO BID 180 tabs 1RF Prostate cancer 90 days C61 - Malignant neoplasm of prostate, C79.51 - Secondary malignant neoplasm of bone cholecalciferol (vitamin D3) 800 units PO DAILY 180 caps 1RF 90 days C61 - Malignant neoplasm of prostate, C79.51 - Secondary malignant neoplasm of bone Patient Instructions: Imaging studies, laboratory and physical exam results were discussed and reviewed in detail. No major barriers to patient understanding were identified. An opportunity to ask questions regarding the treatment plan was provided. All questions were answered. The patient expressed understanding and agreement with the above treatment plan. The patient is aware they should contact our office by phone for worsening of their current condition or the appearance of new urologic symptoms. Compliance is encouraged with any medications and followup testing that is ordered. It is a privilege to participate in the urologic care of your patient. If you have any questions or concerns regarding treatment for the above conditions, or other urologic issues, please do not hesitate to contact me. The office telephone contact is [phone]. This note is constructed using voice recognition software. While every effort has been made to ensure accuracy social media sr strategy manager errors may have been included. Yours sincerely, Dr Trevor Restrepo MD, [facility] - Urology Providers of Expert, Compassionate Care for the Genitourinary System Coding Level of Care Code Est Pt Level 4 (96329) Diagnoses Bilateral hydronephrosis N13.30 Prostate cancer metastatic to bone C61; C79.51
== END 2023-09-07 14:24 | disposition home or self-care (01) ==
PROVIDERS: PCP Registered Nurse; Visit Provider Urology
DX: N13.30 Unspecified hydronephrosis (principal); C61 Malignant neoplasm of prostate; C79.51 Secondary malignant neoplasm of bone
CPT/HCPCS: 99214

== ENCOUNTER → 2023-09-07 13:38 | Outpatient (BNVA) | payer MEDICARE, MEDICAID, SELFPAY | PROVIDERS: PCP Registered Nurse; Visit Provider Urology | DX: N13.30 Unspecified hydronephrosis (principal); C61 Malignant neoplasm of prostate; C79.51 Secondary malignant neoplasm of bone | CPT/HCPCS: 96372; 96402; 99212; J0897; J9217 ==

== ENCOUNTER 2023-11-07 10:50 | Day surgery (SDC) | payer MEDICARE, MEDICAID, SELFPAY ==
--- NOTE | 2023-11-04 11:02 | HO.ANESPROP2 ---
Documented by User: Yumi Bethea NP 11/04/23 11:06 HPI - Anesthesia Eval Consult details Narrative: 63yo M for Bilateral Cystoscopy & Stent Removal ESRD with HD on MWF AV fistual LUE *NO IV/BP ON LEFT* Cardiac [place]. [facility] [place] for THACKER, acute on chronic HF Hospital course: 63yo M with ESRD on HD, metastatic prostate CA, HF with mildly reduced EF [45% 07/19/23], pericardial effusion sent in from Cardiology Clinic due to worsening dyspnea admitted with the diagnosis of acute-chronic HF with mildly reduced EF, likely due to hypervolemia underwent extra ultrafiltration, shortness of breath resolved, patient hematocrit is stable iron studies within normal range, patient was evaluated for pericardial effusion and echocardiogram showed small to moderate pericardial effusion, EF 45-50% patient evaluated by baking powder mixer they recommend no intervention since no evidence of cardiac tamponade,was noted to have elevated blood pressures therefore dose of hydralazine increased to 25 mg t.i.d. 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 PMFSH Active Problems Active Problems: All Active Problems Bilateral hydronephrosis (Acute) Creatinine elevation (Acute) Urinary retention (Acute) Hypokalemia (Acute) Anemia in chronic kidney disease (Acute) Acute pyelonephritis (Acute) Hyperkalemia (Acute) Acidosis (Acute) Obstructive uropathy (Acute) Staphylococcus aureus bacteremia (Acute) Prostate cancer (Acute) Prostate cancer metastatic to bone (Acute) Past Medical History Medical History HTN (hypertension) ESRD (end stage renal disease) Creatinine elevation Urinary retention History of upper gastrointestinal bleeding A-V fistula Fusion of lumbar spine Chronic kidney disease Urinary tract infection Enlarged prostate Kidney disease Elevated PSA Anemia Metabolic acidosis Bilateral hydronephrosis Hypocalcemia Acute anemia Acute kidney injury Family History Family history of problems with anesthesia: No Surgical History Surgical History History of fusion of cervical spine Hx of esophagogastroduodenoscopy History of transurethral resection of prostate S/P arteriovenous (AV) fistula creation History of hip replacement, total History of Problems with Anesthesia: No Social History Social History Household Members: Other Household Members Other:: sister Housing: House Housing Other:: mobile home Do you presently have visiting nurse or other home services: No Alcohol intake: former Patient Tobacco Use Status: Former Tobacco user Quit Date: 2014 Tobacco use type: Cigarette Years Smoked: 50 Smoked in Last 30 Days: No e-Cigarette/Vaping Use: Former Use Use of substances other than those prescribed or required for medical reasons: Yes Substance Use Type: Marijuana Substance Use Frequency: Daily Are you DNR?: No Advance Directives: No Advance Directives Information Provided: Yes service: No Current occupational status: disabled Meds Allergies Allergy/AdvReac Type Severity Reaction Status Date / Time No Known Allergies Allergy Verified 11/07/23 11:18 [No Known Allergies*] Home Medications ?Medication ?Instructions ?Recorded ?Confirmed ?Last Taken ?Type blood pressure test kit-large #1 ea 03/18/22 12/17/22 Unknown History amlodipine 10 mg tablet 10 mg PO BEDTIME 12/17/22 11/07/23 Unknown History denosumab 60 mg/mL subcutaneous 60 mg subcut [id number] 02/24/23 11/07/23 Unknown History syringe (Prolia) leuprolide acetate (6 month) 45 mg 45 mg subcut [id number] 02/24/23 11/07/23 Unknown History (6 month) subcutaneous syringe (Eligard) ropinirole 2 mg tablet 2 mg PO MOWEFR 08/04/23 11/07/23 Unknown History hydralazine 25 mg tablet 50 mg PO TID 09/07/23 11/07/23 Unknown History Exam Pertinent Lab Results Pertinent Lab Results: Laboratory Tests 08/06/23 06:33 WBC 5.9 Hgb 9.8 L Hct 28.9 L Plt Count 219 Narrative Narrative: Limited ECHO 08/2023 Conclusions: - There is a moderate left sided pleural effusion. There are no definitive echocardiographic findings of tamponade physiology. Small to moderate pericardial effusion. ECHO 07/2023 Conclusions: - 1. Mildly reduced LV ejection fraction of 45-50% with grade 3 diastolic dysfunction 2. Severe left atrial enlargement 3. Mild mitral regurgitation 4. Normal measured RV systolic pressure 5. Small to moderate pericardial effusion, more prominent near the right atrium with no clear tamponade physiology EKG 08/2023 Vent. Rate : 081 BPM Atrial Rate : 081 BPM P-R Int : 160 ms QRS Dur : 084 ms QT Int : 390 ms P-R-T Axes : 073 001 066 degrees QTc Int : 453 ms Normal sinus rhythm Minimal voltage criteria for LVH, may be normal variant ( [place] product ) Borderline ECG When compared with ECG of 01-APR-2021 17:53, No significant change was found Assessment and Plan Assessment Anesthesia Assessment: Chart Reviewed Final Anesthetic Review Family History of Problems with Anesthesia: No History of Problems with Anesthesia: No Documented by User: Lamonte Lowery MD 11/07/23 12:35 [facility] Past Medical History Medical History HTN (hypertension) ESRD (end stage renal disease) Creatinine elevation Urinary retention History of upper gastrointestinal bleeding A-V fistula Fusion of lumbar spine Chronic kidney disease Urinary tract infection Enlarged prostate Kidney disease Elevated PSA Anemia Metabolic acidosis Bilateral hydronephrosis Hypocalcemia Acute anemia Acute kidney injury Surgical History Surgical History History of fusion of cervical spine Hx of esophagogastroduodenoscopy History of transurethral resection of prostate S/P arteriovenous (AV) fistula creation History of hip replacement, total Social History Social History Household Members: Other Household Members Other:: sister Housing: House Housing Other:: mobile home Do you presently have visiting nurse or other home services: No Alcohol intake: former Patient Tobacco Use Status: Former Tobacco user Quit Date: 2014 Tobacco use type: Cigarette Years Smoked: 50 Smoked in Last 30 Days: No e-Cigarette/Vaping Use: Former Use Use of substances other than those prescribed or required for medical reasons: Yes Substance Use Type: Marijuana Substance Use Frequency: Daily Are you DNR?: No Advance Directives: No Advance Directives Information Provided: Yes service: No Current occupational status: disabled Meds Allergies Allergy/AdvReac Type Severity Reaction Status Date / Time No Known Allergies Allergy Verified 11/07/23 11:18 [No Known Allergies*] Home Medications ?Medication ?Instructions ?Recorded ?Confirmed ?Last Taken ?Type blood pressure test kit-large #1 ea 03/18/22 12/17/22 Unknown History amlodipine 10 mg tablet 10 mg PO BEDTIME 12/17/22 11/07/23 Unknown History denosumab 60 mg/mL subcutaneous 60 mg subcut [id number] 02/24/23 11/07/23 Unknown History syringe ([employer]) leuprolide acetate (6 month) 45 mg 45 mg subcut [id number] 02/24/23 11/07/23 Unknown History (6 month) subcutaneous syringe ([employer] Systemsd) ropinirole 2 mg tablet 2 mg PO MOWEFR 08/04/23 11/07/23 Unknown History hydralazine 25 mg tablet 50 mg PO TID 09/07/23 11/07/23 Unknown History Exam Airway Mallampati Class: I TM Dist: >3cm Neck ROM: Full Loose/Missing/Broken Teeth: No Heart: see echo. Lungs: ok Assessment and Plan Assessment Anesthesia Assessment: Anesthesia Plan Discussed Final Anesthetic Review NPO: Yes ASA Class: IV Final Preanesthetic Review: No Changes in Pt Med Stat, Meds/Allgs Chart Reviewed, Consent Obtained/Reviewed and Anes Risks/Benef Reviewed Patient Risk: High Procedure Risk: Low Anesthetic Plan Anesthetic Plan: Agree w/ Assess. and Plan and TIVA Disposition: Standard PACU
--- NOTE | ~2023-11-07 | FL_ITS ---
EXAMINATION: XR FLUOROSCOPY WITH IMAGES CLINICAL INFORMATION: Bilateral stent removal. COMPARISON: Intraoperative fluoroscopy dated 01/24/2023; CT abdomen and pelvis dated 12/02/2022. TECHNIQUE: Fluoroscopy Supervised By: Dr. Trevor Restrepo. Fluoroscopy Time: 47 seconds. Cumulative Dose: 10.122 mGy. DAP: 3.6439 Gycm2. Images: 2. FINDINGS: The submitted image shows a cystoscope and injected contrast within the bladder and bilateral distal ureters. FL/FL guidance in OR IMPRESSION: Intraoperative fluoroscopic guidance is provided during bilateral stent removal. Please see the patient's Operative Report for full procedural details.
--- OUTSIDE RECORDS SUMMARY | 2023-11-07 10:53 | XMS_ITS ---
Author Name Hung, Kileann Address [address] [place] [id number] Phone [phone] Organization [facility] e, NA DOCUMENT DISCLAIMER Multiple document versions may exist, please be sure you review the latest version. The information in the [facility] [place] [facility] Progress Note Document represents a providers documented clinical note containing certain health and medical information. It may not contain the complete medical history for the patient and should be independently verified. The represented time in the document is Eastern Time PROVIDER ROUNDING NOTE BASIC Revised?By:?Marsha?Hung? Revised?Date:?08/22/2023?8:49:41?AM Revised?Reason:?Televisit? Patient:?Darwin?Maribeth,?1960,?63y,?M Dialysis?Location:?[facility]?[place]?-?JV Attending?Caust[employer] [place] Shift Superintendent:?Reji?Vita Service?Date:?08/22/2023 Service?Provider:?Marsha?Hung? I?saw?the?patient?remotely?today?for?a?telehealth?visit ?using?audiovisual?technology. OVERVIEW The?patient?presented?with?ESRD?on?dialysis Primary?cause?of?renal?failure:?Hypertensive?chronic?kidney? disease?with?stage?1?through?stage?4?chronic?kidney?dis ease,?or?unspecified?chronic?kidney?disease Comments:?Seen?during?HD?,?denies?any?complaints?.?Visi ting?from?[place]?[employer]?and?insurance agent?Sonya? Here?transiently.?Will?be?leaving?soon. DIALYSIS?PRESCRIPTION ??IHD?3x?Week?Start?date:?08/15/23 ??Dialyzer:?160NRe?Optiflux ??BFR:?400 ??DFR:?Manual?600 ??Potassium:?3.0 ??Sodium:?137 ??EDW:?65 ??Duration:?3:45 ??Calcium:?2.5 ??Bicarb:?35 ??Rx?updated?on:?08/12/2023 Comments:?Cont?current?HD?prescription TREATMENT?ASSESSMENT Comments:?No?issues?during?HD?.?BP?high?normal?post&#16 0;HD?.?Needs?to?monitor?home?BP?.? Blood?pressure?controlled.? BP?Stand?Pre ??08/19/2023:?186/96 ??08/17/2023:?161/81 ??08/15/2023:?152/86 BP?Sit?Pre ??08/19/2023:?174/95 ??08/17/2023:?159/88 ??08/15/2023:?153/87 BP?Stand?Post ??08/19/2023:?169/79 ??08/17/2023:?169/78 ??08/15/2023:?181/79 BP?Sit?Post ??08/19/2023:?161/82 ??08/17/2023:?153/83 ??08/15/2023:?168/79 Tx?Duration ??08/19/2023:?3:52 ??08/17/2023:?3:50 ??08/15/2023:?3:52 Missed?Treatments 0?-?last?30?days 0?-?last?60?days FLUID?ASSESSMENT Comments:?Wt?gain?high?counseled? EDW?(kg) ??08/19/2023:?65.0 ??08/17/2023:?65.0 ??08/15/2023:?65.0 Weight?Pre?(kg) ??08/19/2023:?66.9 ??08/17/2023:?71.9 ??08/15/2023:?65.3 Weight?Post?(kg) ??08/19/2023:?64.8 ??08/17/2023:?65.0 ??08/15/2023:?63.9 PWV?(kg) ??08/19/2023:?-0.2 ??08/17/2023:?0.0 ??08/15/2023:?-1.1 UF?Rate?(mL/kg/hr) ??08/19/2023:?8.4 ??08/17/2023:?27.7 ??08/15/2023:?5.7 ADEQUACY?ASSESSMENT Comments:?Check?Kt/v ACCESS?ASSESSMENT ??Access?Type:?AVFistula ??Access?SubType:?Standard ??Access?Status:?Active?(In?Use)?-?08/12/2023 ??Access?Location:?Left?Upper?Arm ??Created:?08/03/2021 Vascular?access?reviewed. ANEMIA?ASSESSMENT Comments:?Check?Hb BMM?ASSESSMENT Comments:?Check?PO-4,?PTH?and?Calcium?level NUTRITION?ASSESSMENT Comments:?Check?Albumin?and?K?level PHYSICAL?EXAM Exam?Performed.?Vital?Signs?Reviewed.?CV?-?Blood?pressure noted. DIAGNOSIS Chief?Complaint:?N18.6?End?stage?renal?disease Patient?data?updated?08/22/2023?at?8:44?AM Signed?By:?Hung,?Marsha,???on?08/22/2023?8:49:41?AM END OF DOCUMENT
--- OUTSIDE RECORDS SUMMARY | 2023-11-07 10:53 | XMS_ITS ---
Author Name JordanrenzoalbinaBailee beltranallen Address [address] [place] [address] Phone [phone] Organization [facility] e, NA DOCUMENT DISCLAIMER Multiple document versions may exist, please be sure you review the latest version. The information in the [facility] Progress Note Document represents a providers documented clinical note containing certain health and medical information. It may not contain the complete medical history for the patient and should be independently verified. The represented time in the document is Eastern Time PROVIDER ROUNDING NOTE COMPREHENSIVE Patient:Bijal?Maribeth,?1960,?63y,?M Dialysis?Location:?[facility]?-?JV Attending?Mobility Manager:?Reji?Vita Service?Date:?08/19/2023 Service?Provider:?Rae?Yandel,? I?met?face?to?face?with?the?patient?today. OVERVIEW The?patient?presented?with?ESRD?on?dialysis Primary?cause?of?renal?failure:?Hypertensive?chronic?kidney? disease?with?stage?1?through?stage?4?chronic?kidney?dis ease,?or?unspecified?chronic?kidney?disease Comments:?Seen?during?HD?,?denies?any?complaints?.?Visi ting?from?[employer]?and?health care coach?Sonya? Medications?and?labs?reviewed. HOME?MEDICATIONS Allergies:? ??No?Known?Allergies DIALYSIS?PRESCRIPTION ??IHD?3x?Week?Start?date:?08/15/23 ??Dialyzer:?160NRe?Optiflux ??BFR:?400 ??DFR:?Manual?600 ??Potassium:?3.0 ??Sodium:?137 ??EDW:?65 ??Duration:?3:45 ??Calcium:?2.5 ??Bicarb:?35 ??Rx?updated?on:?08/12/2023 Comments:?Cont?current?HD?prescription TREATMENT?ASSESSMENT Comments:?No?issues?during?HD?.?BP?high?normal?post&#16 0;HD?.?Needs?to?monitor?home?BP?.? Blood?pressure?elevated.?No?changes?indicated.? BP?Stand?Pre ??08/19/2023:?186/96 ??08/17/2023:?161/81 ??08/15/2023:?152/86 BP?Sit?Pre ??08/19/2023:?174/95 ??08/17/2023:?159/88 ??08/15/2023:?153/87 BP?Stand?Post ??08/19/2023:?169/79 ??08/17/2023:?169/78 ??08/15/2023:?181/79 BP?Sit?Post ??08/19/2023:?161/82 ??08/17/2023:?153/83 ??08/15/2023:?168/79 Tx?Duration ??08/19/2023:?3:52 ??08/17/2023:?3:50 ??08/15/2023:?3:52 Missed?Treatments 0?-?last?30?days 0?-?last?60?days FLUID?ASSESSMENT Comments:?Wt?gain?high?counseled? Fluid?status?not?acceptable.?Interdialytic?weight?gain?not?a cceptable.?Optimal?weight?discussed.?Diet?reviewed?with?patient. EDW?(kg) ??08/19/2023:?65.0 ??08/17/2023:?65.0 ??08/15/2023:?65.0 Weight?Pre?(kg) ??08/19/2023:?66.9 ??08/17/2023:?71.9 ??08/15/2023:?65.3 Weight?Post?(kg) ??08/19/2023:?64.8 ??08/17/2023:?65.0 ??08/15/2023:?63.9 PWV?(kg) ??08/19/2023:?-0.2 ??08/17/2023:?0.0 ??08/15/2023:?-1.1 UF?Rate?(mL/kg/hr) ??08/19/2023:?8.4 ??08/17/2023:?27.7 ??08/15/2023:?5.7 ADEQUACY?ASSESSMENT Comments:?Check?Kt/v ACCESS?ASSESSMENT ??Access?Type:?AVFistula ??Access?SubType:?Standard ??Access?Status:?Active?(In?Use)?-?08/12/2023 ??Access?Location:?Left?Upper?Arm ??Created:?08/03/2021 Vascular?access?reviewed.?Current?access?is?permanent?and?functioning?well. ANEMIA?ASSESSMENT Comments:?Check?Hb BMM?ASSESSMENT Comments:?Check?PO-4,?PTH?and?Calcium?level NUTRITION?ASSESSMENT Comments:?Check?Albumin?and?K?level PHYSICAL?EXAM Exam?Performed.?Vital?Signs?Reviewed.?Lungs?-?Clear.?CV&#160 ;-?Blood?pressure?noted.?CV?-?RRR.?EXT?-?No?edema.?EXT?-?No?ulcers. DIAGNOSIS Chief?Complaint:?N18.6?End?stage?renal?disease Patient?data?updated?08/19/2023?at?4:42?PM Signed?By:?Yandel,?aRe,???on?08/19/2023?4:47:58?PM END OF DOCUMENT
--- OUTSIDE RECORDS SUMMARY | 2023-11-07 10:53 | XMS_ITS ---
Author Name Hung Marsha Address [address] [place] [id number] Phone [phone] Organization [facility], NA DOCUMENT DISCLAIMER Multiple document versions may exist, please be sure you review the latest version. The information in the [facility] Progress Note Document represents a providers documented clinical note containing certain health and medical information. It may not contain the complete medical history for the patient and should be independently verified. The represented time in the document is Eastern Time PROVIDER ROUNDING NOTE BASIC Patient:?Darwin?Maribeth,?1960,?63y,?M Dialysis?Location:?[facility]?[place]?-?FrankV Attending?Laboratory Chemist:?Reji?Vita Service?Date:?08/24/2023 Service?Provider:?Marsha?Hung,? I?saw?the?patient?remotely?today?for?a?telehealth?visit ?using?audiovisual?technology. OVERVIEW The?patient?presented?with?ESRD?on?dialysis Primary?cause?of?renal?failure:?Hypertensive?chronic?kidney? disease?with?stage?1?through?stage?4?chronic?kidney?dis ease,?or?unspecified?chronic?kidney?disease Comments:?Seen?during?HD?,?denies?any?complaints?.?Visi ting?from?[employer]?and?gasket maker?Sonya? Here?transiently.?Will?be?leaving?soon. DIALYSIS?PRESCRIPTION ??IHD?3x?Week?Start?date:?08/15/23 ??Dialyzer:?160NRe?Optiflux ??BFR:?400 ??DFR:?Manual?600 ??Potassium:?3.0 ??Sodium:?137 ??EDW:?65 ??Duration:?3:45 ??Calcium:?2.5 ??Bicarb:?35 ??Rx?updated?on:?08/12/2023 Comments:?Cont?current?HD?prescription TREATMENT?ASSESSMENT Comments:?No?issues?during?HD?.?BP?high?normal?post&#16 0;HD?.?Needs?to?monitor?home?BP?.? BP?Stand?Pre ??08/22/2023:?180/88 ??08/19/2023:?186/96 ??08/17/2023:?161/81 BP?Sit?Pre ??08/22/2023:?197/69 ??08/19/2023:?174/95 ??08/17/2023:?159/88 BP?Stand?Post ??08/22/2023:?171/82 ??08/19/2023:?169/79 ??08/17/2023:?169/78 BP?Sit?Post ??08/22/2023:?138/83 ??08/19/2023:?161/82 ??08/17/2023:?153/83 Tx?Duration ??08/22/2023:?3:56 ??08/19/2023:?3:52 ??08/17/2023:?3:50 Missed?Treatments 0?-?last?30?days 0?-?last?60?days FLUID?ASSESSMENT Comments:?Wt?gain?high?counseled? Fluid?status?acceptable.? EDW?(kg) ??08/22/2023:?65.0 ??08/19/2023:?65.0 ??08/17/2023:?65.0 Weight?Pre?(kg) ??08/22/2023:?66.0 ??08/19/2023:?66.9 ??08/17/2023:?71.9 Weight?Post?(kg) ??08/22/2023:?63.6 ??08/19/2023:?64.8 ??08/17/2023:?65.0 PWV?(kg) ??08/22/2023:?-1.4 ??08/19/2023:?-0.2 ??08/17/2023:?0.0 UF?Rate?(mL/kg/hr) ??08/22/2023:?9.6 ??08/19/2023:?8.4 ??08/17/2023:?27.7 ADEQUACY?ASSESSMENT Comments:?Check?Kt/v ACCESS?ASSESSMENT ??Access?Type:?AVFistula ??Access?SubType:?Standard ??Access?Status:?Active?(In?Use)?-?08/12/2023 ??Access?Location:?Left?Upper?Arm ??Created:?08/03/2021 ANEMIA?ASSESSMENT Comments:?Check?Hb HGB?at?goal.? HGB ??08/22/2023:?10.5 BMM?ASSESSMENT Comments:?Check?PO-4,?PTH?and?Calcium?level NUTRITION?ASSESSMENT Comments:?Check?Albumin?and?K?level PHYSICAL?EXAM Exam?Performed.?Vital?Signs?Reviewed.?CV?-?Blood?pressure noted. DIAGNOSIS Chief?Complaint:?N18.6?End?stage?renal?disease Patient?data?updated?08/24/2023?at?7:44?AM Signed?By:?Hung,?Marsha???on?08/24/2023?7:45:24?AM END OF DOCUMENT
[2023-11-07 11:19] VITALS: BP 171/69; PULSE 66; RESP 16; TEMP 36.6; O2SAT 98; BMI 26.5
[2023-11-07 11:38] LABS: Anion Gap 15 (12-20); Carbon Dioxide 28 mmol/L (22-29); Chloride 96 mmol/L (96-108); Potassium 3.7 mmol/L (3.3-5.1); Sodium 135 mmol/L (135-145)
--- NOTE | 2023-11-07 12:23 | MHC.SHP ---
Pre-Procedural Eval Section A - 24 Hr Update-Section A only Date of Service: 11/07/23 The patient is an INPATIENT: No Changes since office visit: No Cold of Flu in the past 2 weeks, No New Medical Problems, No Changes in Medication and No Patient answered all questions The patient has been examined within 24 hours of the surgical procedure. The History & Physical has been completed within 30 days and I have reviewed it.: No Section B - Complete if H&P > 30 days Chief Complaint: Unspecified hydronephrosis Details of Present Illness: Bilateral hydronephrosis from prostate cancer. Currently on dialysis Relevant Family History (Specify if Yes): No Relevant Social History: None Present Medications: see Short Stay Collaborative assessment Medical History: Significant History History of Previous Operations: Relevant previous surgery/procedure and date(s) Allergies: Allergies Allergy/AdvReac Type Severity Reaction Status Date / Time No Known Allergies Allergy Verified 11/07/23 11:18 [No Known Allergies*] Review of Systems Sugical H&P ROS: Negative: Constitution, Cardiovascular, Respiratory, Neurological, Psychiatric, Hem-Onc, Allergic/Immunologic, Gastrointestinal, Genitourinary, Musculoskeletal, Integumentary, Endocrine and Eyes/Ears/Nose/Throat Exam Surgical H&P Exam: Normal: HEENT, Normal: Heart, Normal: Lungs, Normal: Extremities, Normal: Abdomen, Normal: Skin and Normal: Neurological Plan Diagnosis/Plan: Unchanged (Cystoscopy, bilateral stent removal, bilateral retrograde) I have reviewed the history and physical and performed a pertinent physical examination on my patient. No changes have occurred unless specified. Time Spent With Patient Time: Total time managing care of this patient today ____ minutes.
[2023-11-07 13:13] VITALS: BP 123/63; PULSE 61; RESP 18; TEMP 36.6; O2SAT 96
[2023-11-07 13:18] VITALS: BP 114/60; PULSE 59; RESP 18; O2SAT 95
[2023-11-07 13:23] VITALS: BP 143/68; PULSE 60; RESP 18; O2SAT 96
[2023-11-07 13:28] VITALS: BP 169/76; PULSE 60; RESP 18; TEMP 36.6; O2SAT 96
--- NOTE | 2023-11-07 13:34 | P.OP_ITS ---
Operative Note Operative Note Date of Service: 11/07/23 Narrative: PreOperative Diagnosis: Bilateral hydroureteronephrosis Post Operative Diagnosis: Bilateral hydroureteronephrosis Procedure: Cystoscopy, bilateral stent removal, bilateral retrograde Surgeon: Dr Trevor Restrepo Anesthesia: Sedation Indications for procedure: Background metastatic prostate cancer to abdominal nodes with bilateral hydroureteronephrosis. Had indwelling stents for 24 months that had been changed every 6 months. Here for attempt at stent removal. Procedure: After informed consent was verified the patient was brought to the operating room and placed in a supine position. Anesthesia was administered per protocol. The patient was placed in modified dorsal lithotomy position and prepped and draped in a sterile fashion. A safety pause time-out was performed. Laterality of procedure and antibiotics were confirmed, appropriate imaging was available A 22 Monegasque cystoscope was introduced per urethra. No abnormality was noted of urethra or bladder. Both ureteric orifices were seen in a normal position with emergent stents. The left stent was grasped 1st and removed. The right stent was then removed. Using an open-ended catheter bilateral retrogrades were performed. 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 On fluoroscopy both ureters showed effective emptying into the bladder. The patient tolerated the procedure well and was transferred in a stable condition to the recovery area. Pathology: Drains:
== END 2023-11-07 13:53 | disposition home or self-care (01) ==
PROVIDERS: Nurse Practitioner; Visit Provider Urology
PROC: (CPT 52310; principal; 2023-11-07 09:10)
DX: N13.30 Unspecified hydronephrosis (principal); Z46.6 Encounter for fitting and adjustment of urinary device; C61 Malignant neoplasm of prostate; C79.51 Secondary malignant neoplasm of bone; N40.1 Benign prostatic hyperplasia with lower urinary tract symptoms; R33.8 Other retention of urine; G89.3 Neoplasm related pain (acute) (chronic); I12.0 Hypertensive chronic kidney disease with stage 5 chronic kidney disease or end stage renal disease; N18.6 End stage renal disease; Z99.2 Dependence on renal dialysis; Z79.899 Other long term (current) drug therapy; Z87.891 Personal history of nicotine dependence
CPT/HCPCS: 52005; 36415; 80051; C1758; J1956; J2704; J3010; Q9967

== ENCOUNTER → 2023-11-07 10:50 | Outpatient (BNV) | payer MEDICARE, MEDICAID, SELFPAY | PROVIDERS: Visit Provider Urology | DX: N13.30 Unspecified hydronephrosis (principal); Z96.0 Presence of urogenital implants | CPT/HCPCS: 52310; 74420 ==

== ENCOUNTER → 2023-11-18 10:19 | Outpatient (REF) | payer MEDICARE, MEDICAID, SELFPAY ==
--- NOTE | ~2023-11-18 | NM_ITS ---
EXAMINATION: NM BONE SCAN OF THE WHOLE BODY CLINICAL INFORMATION: Prostate cancer. COMPARISON: Several prior bone scans are available for comparison, the most recent dated 11/19/2022. A radiograph of the chest dated 08/04/2023 is available for comparison. CT scan of the abdomen and pelvis dated 12/02/2022 is available for comparison. TECHNIQUE: Multiple gamma scintillation camera images of the whole body were performed 3 hours following the intravenous administration of 22 mCi Tc-99m MDP. FINDINGS: In the head, no significant abnormalities are present. In the thoracic cage and upper extremities, there is diffusely increased activity in both humeral heads of mild to moderate intensity and this is slightly more intense on the left. There is some increased contrast between the ribs and soft tissues with minimal heterogeneity present in the ribs. There is minimally increased activity in the sternoclavicular joints bilaterally. There is a small faint focus of increased activity in the medial aspect of the posterior right sixth rib. In the spine, a minimal thoracolumbar scoliosis is present with lumbar convexity to the left. There is mildly increased activity in the right side of L5. In the pelvis, no significant abnormalities are present. In the lower extremities, a photopenic defect from a well-healed right total hip prosthesis is noted. There is diffusely increased activity in the left hip and both knees, most prominently in the patellar compartments bilaterally and the medial compartment of the left knee. There is also mildly increased activity medially in both ankles and in mild foci in the mid feet bilaterally and the first metatarsophalangeal joint regions bilaterally. No other definite bony abnormalities are noted. The urinary bladder and faint visualization of both kidneys are noted. The kidneys appear small bilaterally and there is only minimal activity in the urinary bladder. Compared to the previous bone scan dated 11/19/2022, the abnormality in the posterior right sixth rib has significantly decreased in intensity, but the remainder the bone scan is not significantly changed. The CT scan dated 12/02/2022 showed several sclerotic lesions including diffuse sclerosis in the T10 vertebral body and focal sclerotic lesions in L2 and L4. NM/NM bone scan whole body IMPRESSION: Dense sclerotic lesions on the prior CT scan do not show significant abnormalities on this bone scan and are likely due to healed metastases. Abnormalities on the current bone scan are stable and in the humeral heads and posterior right sixth rib likely represent stable metastases. Some of the additional periarticular abnormalities, particularly in the knees, ankles, and feet are likely arthritic or traumatic in etiology. There is no evidence of new metastatic disease. An F-18 PSMA (Pylrarify) PET/CT scan may be helpful in further characterizing these abnormalities.
== END ==
LOC: HO.NUCMED 10:19
PROVIDERS: Visit Provider Urology
DX: C61 Malignant neoplasm of prostate (principal); C79.51 Secondary malignant neoplasm of bone
CPT/HCPCS: 78306; A9503

== ENCOUNTER 2023-12-01 13:34 | Outpatient (REF) | payer MEDICARE, MEDICAID, SELFPAY ==
--- NOTE | ~2023-12-01 | CT_ITS ---
EXAMINATION: CT ABDOMEN AND PELVIS WITHOUT CONTRAST CLINICAL INFORMATION: Malignant neoplasm of prostate gland. COMPARISON: CT abdomen and pelvis dated 12/02/2022. TECHNIQUE: Multidetector volumetric imaging was performed from the superior aspect of the liver through the pubic symphysis. Sagittal and coronal reformatted images were obtained on the technologist's workstation. This CT examination was performed using dose optimization techniques as appropriate, variously including the following: *Automated exposure control *Adjustment of mA and/or kV according to patient size (this includes techniques or standardized protocols for targeted exams where dose is matched to indication/reason for exam; i.e. extremities or head) *Use of iterative reconstruction technique DLP: 448 mGy-cm FINDINGS: LUNG BASES: The visualized lung bases are unremarkable. There is a trace pericardial effusion. LIVER, GALLBLADDER, AND BILIARY TREE: The liver is normal in size, shape, and attenuation. No focal hepatic lesion or biliary ductal dilatation is present. The gallbladder is unremarkable with no evidence of radiopaque gallstones, gallbladder wall thickening, or obvious pericholecystic inflammatory changes. PANCREAS: There are scattered pancreatic calcifications, suggesting chronic pancreatitis. No focal pancreatic mass or ductal dilatation is seen. There is no peripancreatic fat stranding or acute fluid collection. SPLEEN: There are tiny benign, calcified splenic granulomas. The spleen is upper normal in size, with a longitudinal span in the coronal plane of 12.8 cm (4:85). ADRENAL GLANDS: Unremarkable. KIDNEYS AND URETERS: The bilateral kidneys are atrophic and show perinephric stranding. There are bilateral renal vascular calcifications. No definite urinary calculus is noted, and there is no obstructive uropathy. BLADDER: Unremarkable, with imaging obscured by metallic streak artifact from the patient's right hip arthroplasty. GASTROINTESTINAL TRACT: There is mild diverticulosis, without acute diverticulitis. No bowel obstruction, free intraperitoneal air or abscess is seen. There is no focal bowel wall thickening. The vermiform appendix appears normal. ABDOMINAL WALL: No significant hernia is appreciated. LYMPH NODES: Normal. VASCULAR: There is moderate aortoiliac atherosclerotic calcification. No abdominal aortic aneurysm is seen. PELVIC VISCERA: The prostate and seminal vesicles are unremarkable. There are scattered prostate calcifications. OSSEOUS STRUCTURES: There is a moderate lumbar levoscoliosis. There are numerous scattered lesions, most pronounced within the T10, L2 and L4 vertebra, the upper sacrum, the left 8th and 12th ribs and the proximal left femur. There is an intact right hip arthroplasty. There are old, healed bilateral lower rib fractures. No acute or aggressive osseous finding is noted. CT/CT abdomen pelvis wo IV con IMPRESSION: 1. There is a continued stable appearance of scattered sclerotic bony lesions, as detailed. On the nuclear bone scan dated 11/19/2023, these appear to represent healed metastases. 2. There is mild diverticulosis, without acute diverticulitis. 3. The kidneys again appear atrophic. 4. No prostate enlargement or focal nodule is seen with CT. Fleischner guidelines were followed.
== END 2023-12-01 13:35 | disposition home or self-care (01) ==
LOC: HO.CT 13:34
PROVIDERS: PCP Registered Nurse; Visit Provider Urology
DX: Z12.5 Encounter for screening for malignant neoplasm of prostate (principal); C61 Malignant neoplasm of prostate; C79.51 Secondary malignant neoplasm of bone; G89.3 Neoplasm related pain (acute) (chronic)
CPT/HCPCS: 36415; 74176; 84153

== ENCOUNTER 2023-12-13 08:50 | Outpatient (REF) | payer MEDICARE, MEDICAID, SELFPAY ==
[2023-12-13 11:20] LABS: Estimated Average Glucose 111 mg/dL; Hemoglobin A1c % 5.5 % (<6.0)
[2023-12-13 11:29] LABS: Cholesterol 219 mg/dL (<200); HDL Cholesterol 68 mg/dL (>40); LDL Cholesterol Calculated 138 mg/dL (<100); Triglycerides 68 mg/dL (<150)
== END 2023-12-13 08:51 | disposition home or self-care (01) ==
LOC: HO.HMGCLDS 08:50
PROVIDERS: PCP Registered Nurse; Visit Provider Registered Nurse
DX: Z00.00 Encounter for general adult medical examination without abnormal findings (principal)
CPT/HCPCS: 36415; 80061; 83036

== ENCOUNTER 2023-12-13 14:40 | Outpatient (AMB) | payer MEDICARE, MEDICAID, SELFPAY ==
--- NOTE | 2023-12-13 14:42 | MHC.OFFVIS ---
Intake Visit Reasons: Bone Scan/PSA follow Up(set) Intake Note: Patient is Present for Telephone Follow Up For Urology Med: Abiraterone, Prolia, Eligard Antibiotic Allergy: None Blood Thinner: None Allergies No Known Allergies [No Known Allergies*] Allergy (Verified 11/07/23 11:18) Medication List - Last Reconciled 12/13/23 by Trevor Restrepo MD abiraterone 1,000 mg (4 x 250 mg) PO DAILY 90 days amlodipine 10 mg PO BEDTIME blood pressure test kit-large As directed denosumab (Prolia) 60 mg subcut [id number] hydralazine 50 mg See Protocol PO TID leuprolide acetate (6 month) (Eligard) 45 mg subcut [id number] prednisone 5 mg PO BID 90 days ropinirole 2 mg PO MOWEFR HPI Comments Details: Darwin is a pleasant male. He is a patient of Dr. Whitmore. He is seen for the following urologic issues - urinary retention with elevated creatinine - prostate cancer Telemedicine Evaluation 15 min Consultation [employer] Anders Video attempted Discussed results today. Plan beginning of March for GnRH, Prolia and DEXA scan Continue 3 month review Target 3 years hormone therapy then reduction to intermittent anti-androgen 12/22 0.1 - bone scan stable no progression, CT scan stable no progression 08/24 <0.1 T 3 - GnRH - abiraterone 05/23 P 0.16, T <1 - abiraterone 02/20 P 0.15 T <1 - GnRH, abiraterone 01/21 CT shows stable metastatic prostate cancer Bilateral ureteric stents last changed 01/21 Urinary retention Incomplete bladder emptying Currently on dialysis Prostate cancer grade group 5 with metastatic disease - - Current therapy GnRH with antiandrogen 02/20 GnRH with abiraterone - GnRH Prolia administered 08/23 GnRH therapy with abiraterone - GnRH and Prolia administered 01/20 GnRH therapy with abiraterone - GnRH and Prolia administered 04/21 - PSA 23 Prostate biopsy 06/21 Histologic type: Adenocarcinoma, acinar type Histologic grade: Flor score: - 5+4=9 (right apex), 4+5=9 (left mid, right mid), 4+4=8 (left apex), 4+3=7 (left base, right base) Number cores positive: 6 Total number of cores: 6 % of tissue involved: Greater than 95% Periprostatic fat inv.: Present Seminal vesicle inv.: Not identified Perineural inv.: Present LVI: Suspicious Staging - May 2021 - bone scan and CT scan with metastatic disease - 10/20 CT with sclerotic lesions spinal - 05/22 Bone Scan positive extensive spine - 11/21 CT scan - sclerotic lesions stable, stents in place PFSH Medical History HTN (hypertension) ESRD (end stage renal disease) Creatinine elevation Urinary retention History of upper gastrointestinal bleeding A-V fistula Fusion of lumbar spine Chronic kidney disease Urinary tract infection Enlarged prostate Kidney disease Elevated PSA Anemia Metabolic acidosis Bilateral hydronephrosis Hypocalcemia Acute anemia Acute kidney injury Surgical History History of fusion of cervical spine Hx of esophagogastroduodenoscopy History of transurethral resection of prostate S/P arteriovenous (AV) fistula creation History of hip replacement, total Social History Household Members: Other Household Members Other:: sister Housing: House Housing Other:: mobile home Do you presently have visiting nurse or other home services: No Alcohol intake: former Patient Tobacco Use Status: Former Tobacco user Quit Date: 2014 Tobacco use type: Cigarette Years Smoked: 50 e-Cigarette/Vaping Use: Former Use Substance Use Type: Marijuana service: No Current occupational status: disabled Review of Systems Const Denies chills and Denies fever(s) Card Reports no additional complaints and Denies syncope Resp Denies cough GI Denies abdominal pain and Denies heartburn Reports as per HPI and Denies change in libido Neuro Denies syncope Psych Denies change in libido Endo Denies change in libido Physical Exam Const General: cooperative, healthy appearing, comfortable and no acute distress Orientation/consciousness: patient oriented x3 HEENT Face and sinus: Yes normal facial exam Mouth: moist mucous membranes Neck Neck: Yes normal visual inspection, Yes full ROM and Yes trachea midline Chest Chest palpation & inspection: normal inspection of the chest Resp Effort & Inspection: normal respiratory effort, able to speak in complete sentences and no respiratory distress GI Inspection: Yes normal to inspection Back/Spine/Pelvis Cervical Spine: normal cervical lordosis Thoracic/Lumbar Spine: thoracic and lumbar spine normal to inspection Skin General skin exam: no rashes or lesions noted Neuro General: patient oriented x3, gait normal, tone normal and moves all extremities Extrem General: Yes normal to inspection and Yes capillary refill normal Telehealth Telehealth Telehealth Platform: [employer] Location of provider rendering services: practice address Location of patient: address on file Patient Identification confirmed using: Name, : Yes Telehealth method: video Patient verbally consented to treatment: Yes Patient verbally consented to billing insurance company: Yes Patient informed of any privacy concerns related to visit: Yes Minutes spent on Phone/Video with Pt.: 15 Assessment & Plan Assessment & Plan (1) Prostate cancer metastatic to bone: Comment: 05/2021 - Grade Group 5 Code(s): C61 - Malignant neoplasm of prostate; C79.51 - Secondary malignant neoplasm of bone Category: Medical (2) Osteoporosis due to androgen therapy: Code(s): M81.8 - Other osteoporosis without current pathological fracture; T38.7X5A - Adverse effect of androgens and anabolic congeners, initial encounter Category: Medical Plan Three-month follow-up GnRH, Prolia, lab work, DEXA Orders: Orders Prostate Specific Antigen 3 Months C61 - Malignant neoplasm of prostate, C79.51 - Secondary malignant neoplasm of bone XR DEXA axial skeleton 3 Months M81.8 - Other osteoporosis without current pathological fracture, T38.7X5A - Adverse effect of androgens and anabolic congeners, initial encounter Testosterone, Total 3 Months C61 - Malignant neoplasm of prostate, C79.51 - Secondary malignant neoplasm of bone Patient Instructions: Imaging studies, laboratory and physical exam results were discussed and reviewed in detail. No major barriers to patient understanding were identified. An opportunity to ask questions regarding the treatment plan was provided. All questions were answered. The patient expressed understanding and agreement with the above treatment plan. The patient is aware they should contact our office by phone for worsening of their current condition or the appearance of new urologic symptoms. Compliance is encouraged with any medications and followup testing that is ordered. It is a privilege to participate in the urologic care of your patient. If you have any questions or concerns regarding treatment for the above conditions, or other urologic issues, please do not hesitate to contact me. The office telephone contact is [phone]. This note is constructed using voice recognition software. While every effort has been made to ensure accuracy inside account executive errors may have been included. Yours sincerely, Dr Trevor Restrepo MD, [facility] - Urology Providers of Expert, Compassionate Care for the Genitourinary System Coding Level of Care Code Tele Est Pt Level 3 (66519) Complex EM visit Add On G2211 Diagnoses Prostate cancer metastatic to bone C61; C79.51 Osteoporosis due to androgen therapy M81.8; T38.7X5A
== END 2023-12-13 15:13 | disposition home or self-care (01) ==
LOC: HO.HUSH 14:40
PROVIDERS: PCP Registered Nurse; Visit Provider Urology
DX: C61 Malignant neoplasm of prostate (principal); C79.51 Secondary malignant neoplasm of bone; M81.8 Other osteoporosis without current pathological fracture; T38.7X5A Adverse effect of androgens and anabolic congeners, initial encounter
CPT/HCPCS: 99213; G2211

== ENCOUNTER 2024-02-15 08:15 | Outpatient (REF) | payer MEDICARE, MEDICAID, SELFPAY ==
[2024-02-15 14:20] LABS: Prostate Specific Antigen < 0.10 ng/mL (<0.05-4.0)
[2024-02-21 11:43] LABS: Testosterone, Total 7 ng/dL (250-1100)
== END 2024-02-15 08:16 | disposition home or self-care (01) ==
LOC: HO.LAB 08:15
PROVIDERS: PCP Registered Nurse; Visit Provider Urology
DX: C61 Malignant neoplasm of prostate (principal); C79.51 Secondary malignant neoplasm of bone; Z12.5 Encounter for screening for malignant neoplasm of prostate
CPT/HCPCS: 36415; 84153; 84403

== ENCOUNTER 2024-04-03 11:59 | Outpatient (REF) | payer MEDICARE, MEDICAID, SELFPAY ==
--- NOTE | ~2024-04-03 | MM_ITS ---
EXAMINATION: BONE DENSITOMETRY CLINICAL INDICATION: Other osteoporosis without current pathological fracture. COMPARISON: This is the patient's baseline examination. TECHNIQUE: Using a [employer] DXA System (software version: 13.1) manufactured by [employer], dual-energy x-ray absorptiometry was performed of the lumbar spine and left hip. The images are of good technical quality. Summary results are attached. FINDINGS: LEFT FEMUR, NECK: BMD 0.941 g/cm2, Z-score 0.3, T-score -1.0, normal. LEFT FEMUR, TOTAL: BMD 0.966 g/cm2, Z-score -0.2, T-score -0.9, normal. AP SPINE L1-L2 (excluding L3 and L4): The data of L1-L4 has been changed to exclude the L3 and L4 vertebral bodies, because degenerative sclerosis at these levels may cause overestimation of lumbar spine density. BMD 1.476 g/cm2, Z-score 3.1, T-score 2.3, normal. IDENTIFIED RISK FACTORS: Glucocorticoids, height loss, renal. HISTORY OF FRACTURE: None listed. MEDICATIONS: Calcium, Prolia. MM/XR DEXA axial skeleton IMPRESSION: 1. DIAGNOSIS: Normal bone density based on the lowest T-score value of -1.0 in the femoral neck applying World Health Organization criteria. 2. 10-YEAR FRACTURE RISK PREDICTION, FRAX: According to the guidelines, FRAX calculation should only be performed on patients in the osteopenia bone density category. Therefore, FRAX was not performed on this patient. 3. Treatment Recommendations: NOF guidelines recommend consideration for treatment in postmenopausal women and men age 50 and older presenting with the following: -A hip or vertebral (clinical or morphometric) fracture. -T-score less than or equal to -2.5 at the femoral neck or spine after appropriate evaluation to exclude secondary causes. -Low bone mass at the hip or spine and a 10-year fracture probability by FRAX of greater than or equal to 3% for hip fracture or greater than or equal to 20% for major osteoporotic fracture based on the [place] adapted WHO algorithm. 4. Other Recommendations: All treatment decisions require clinical judgment and consideration of individual patient factors, including patient preferences, comorbidities, previous drug use, risk factors not captured in the FRAX model (e.g. frailty, falls, vitamin D deficiency, increased bone turnover, interval significant decline in bone density) and possible under or overestimation of fracture risk by FRAX. FUTURE SCAN RECOMMENDATION: People with diagnosed cases of osteoporosis or at high risk for fracture should have regular bone mineral density tests. For patients eligible for Medicare, routine testing is allowed once every 2 years. The testing frequency can be increased to one year for patients who have rapidly progressing disease, those who are receiving or discontinuing medical therapy to restore bone mass, or have additional risk factors. Electronically signed by: Trung Payton MD 04/11/2024 09:03 AM EDT
== END 2024-04-03 12:00 | disposition home or self-care (01) ==
LOC: HO.MAMMO 11:59
PROVIDERS: PCP Registered Nurse; Visit Provider Urology
DX: M81.8 Other osteoporosis without current pathological fracture (principal); T38.7X5A Adverse effect of androgens and anabolic congeners, initial encounter
CPT/HCPCS: 77080

== ENCOUNTER 2024-04-10 13:31 | Outpatient (AMB) | payer MEDICARE, MEDICAID, SELFPAY ==
--- NOTE | 2024-04-10 13:36 | AM.OFFVISNUR ---
Intake Visit Reasons: [facility](PA Set) Allergies No Known Allergies [No Known Allergies*] Allergy (Verified 11/07/23 11:18) Office Meds Eligard (6 month) 45 mg (6 month) subcutaneous syringe Performing Provider: Trevor Restrepo MD [facility] Administered by: Roberto Ford LPN on 04/10/24 13:36 Dose Route Admin Location Dispensed Lot Number Expiration Date [facility] Tax Assessor 45 mg subcut right arm 45 mg [id number] 08/01/25 80746-699-21 [employer]. Assessment & Plan Assessment & Plan Orders: Orders AMB Leuprolide Injection - Practice Supplied Today C61 - Malignant neoplasm of prostate, C79.51 - Secondary malignant neoplasm of bone Medications: New Eligard (6 month) (leuprolide acetate (6 month)) 45 mg subcut ONCE 1 ea 0RF NS C61 - Malignant neoplasm of prostate, C79.51 - Secondary malignant neoplasm of bone
== END 2024-04-10 14:05 | disposition home or self-care (01) ==
PROVIDERS: PCP Registered Nurse; Visit Provider Urology
DX: M81.8 Other osteoporosis without current pathological fracture (principal); T38.7X5A Adverse effect of androgens and anabolic congeners, initial encounter; C61 Malignant neoplasm of prostate; C79.51 Secondary malignant neoplasm of bone

== ENCOUNTER → 2024-04-10 13:31 | Outpatient (BNVA) | payer MEDICARE, MEDICAID, SELFPAY | PROVIDERS: PCP Registered Nurse; Visit Provider Urology | DX: C61 Malignant neoplasm of prostate (principal); C79.51 Secondary malignant neoplasm of bone | CPT/HCPCS: 96372; 96402; J0897; J9217 ==

== ENCOUNTER 2024-05-16 13:49 | Outpatient (AMB) | payer MEDICARE, MEDICAID, SELFPAY ==
--- NOTE | 2024-05-16 13:58 | MHC.OFFVIS ---
Intake Visit Reasons: PSA/Testo/Bone Scan(set) Intake Note: Patient is Present for Follow Up PSA/TESTOSTERONE/BONE SCAN Urology Medication: Abiraterone, Prednisone Antibiotic Allergies: none Blood Thinners: None Last Eligard/Prolia Injection: 04/10/2024 Recent labs: 02/15/2024 PSA: <0.10 TESTOSTERONE: 7 Recent Hemoglobin A1C: 12/13/2023 5.5 Vocational Technical Education Teacher Required: No Accompanied by: Self / Same As Patient Allergies No Known Allergies [No Known Allergies*] Allergy (Verified 05/16/24 14:00) Medication List - Last Reconciled 05/16/24 by Trevor Restrepo MD abiraterone 1,000 mg (4 x 250 mg) PO DAILY 90 days amlodipine 10 mg PO BEDTIME blood pressure test kit-large As directed denosumab (Prolia) 60 mg subcut [id number] hydralazine 50 mg See Protocol PO TID leuprolide acetate (6 month) (Eligard) 45 mg subcut [id number] prednisone 5 mg PO BID 90 days ropinirole 2 mg PO MOWEFR HPI Comments Details: Darwin is a pleasant male. He is a patient of Dr. Whitmore. He is seen for the following urologic issues - urinary retention with elevated creatinine - prostate cancer 05/24 GnRH, Prolia and DEXA scan - DEXA shows normal bone density Continue 3 month review Target 3 years hormone therapy then reduction to intermittent anti-androgen Plan PET-CT for metastatic prostate cancer restaging 04/24 GnRH done 12/22 0.1 - bone scan stable no progression, CT scan stable no progression 08/24 <0.1 T 3 - GnRH - abiraterone 05/23 P 0.16, T <1 - abiraterone 02/20 P 0.15 T <1 - GnRH, abiraterone 01/21 CT shows stable metastatic prostate cancer Bilateral ureteric stents last changed 01/21 Urinary retention Incomplete bladder emptying Currently on dialysis Prostate cancer grade group 5 with metastatic disease - - Current therapy GnRH with antiandrogen 02/20 GnRH with abiraterone - GnRH Prolia administered 08/23 GnRH therapy with abiraterone - GnRH and Prolia administered 01/20 GnRH therapy with abiraterone - GnRH and Prolia administered 04/21 - PSA 23 Prostate biopsy 06/21 Histologic type: Adenocarcinoma, acinar type Histologic grade: Flor score: - 5+4=9 (right apex), 4+5=9 (left mid, right mid), 4+4=8 (left apex), 4+3=7 (left base, right base) Number cores positive: 6 Total number of cores: 6 % of tissue involved: Greater than 95% Periprostatic fat inv.: Present Seminal vesicle inv.: Not identified Perineural inv.: Present LVI: Suspicious Staging - May 2021 - bone scan and CT scan with metastatic disease - 10/20 CT with sclerotic lesions spinal - 05/22 Bone Scan positive extensive spine - 11/21 CT scan - sclerotic lesions stable, stents in place PFSH Medical History HTN (hypertension) ESRD (end stage renal disease) Creatinine elevation Urinary retention History of upper gastrointestinal bleeding A-V fistula Fusion of lumbar spine Chronic kidney disease Urinary tract infection Enlarged prostate Kidney disease Elevated PSA Anemia Metabolic acidosis Bilateral hydronephrosis Hypocalcemia Acute anemia Acute kidney injury Surgical History History of fusion of cervical spine Hx of esophagogastroduodenoscopy History of transurethral resection of prostate S/P arteriovenous (AV) fistula creation History of hip replacement, total Social History Household Members: Other Household Members Other:: sister Housing: House Housing Other:: mobile home Do you presently have visiting nurse or other home services: No Alcohol intake: former Patient Tobacco Use Status: Former Tobacco user Tobacco use type: Cigarette Years Smoked: 50 e-Cigarette/Vaping Use: Former Use Substance Use Type: Marijuana service: No Current occupational status: disabled Review of Systems Const Denies chills and Denies fever(s) Card Reports no additional complaints and Denies syncope Resp Denies cough GI Denies abdominal pain and Denies heartburn Reports as per HPI and Denies change in libido Neuro Denies syncope Psych Denies change in libido Endo Denies change in libido Physical Exam Const General: cooperative, healthy appearing, comfortable and no acute distress Orientation/consciousness: patient oriented x3 HEENT Face and sinus: Yes normal facial exam Mouth: moist mucous membranes Neck Neck: Yes normal visual inspection, Yes full ROM and Yes trachea midline Chest Chest palpation & inspection: normal inspection of the chest Resp Effort & Inspection: normal respiratory effort, able to speak in complete sentences and no respiratory distress GI Inspection: Yes normal to inspection Back/Spine/Pelvis Cervical Spine: normal cervical lordosis Thoracic/Lumbar Spine: thoracic and lumbar spine normal to inspection Skin General skin exam: no rashes or lesions noted Neuro General: patient oriented x3, gait normal, tone normal and moves all extremities Extrem General: Yes normal to inspection and Yes capillary refill normal Assessment & Plan Assessment & Plan (1) Osteoporosis due to androgen therapy: Code(s): M81.8 - Other osteoporosis without current pathological fracture; T38.7X5A - Adverse effect of androgens and anabolic congeners, initial encounter Category: Medical (2) Prostate cancer: Comment: Metastatic disease on bone scan, biopsy required Code(s): C61 - Malignant neoplasm of prostate Category: Medical (3) Prostate cancer metastatic to bone: Comment: 05/2021 - Grade Group 5 Code(s): C61 - Malignant neoplasm of prostate; C79.51 - Secondary malignant neoplasm of bone Category: Medical Plan Three-month follow-up imaging and lab work Orders: Orders Prostate Specific Antigen 3 Months C61 - Malignant neoplasm of prostate, C79.51 - Secondary malignant neoplasm of bone Testosterone, Total 3 Months C61 - Malignant neoplasm of prostate, C79.51 - Secondary malignant neoplasm of bone PET CT fusion skull to thigh 3 Months C61 - Malignant neoplasm of prostate, C79.51 - Secondary malignant neoplasm of bone Patient Instructions: Imaging studies, laboratory and physical exam results were discussed and reviewed in detail. No major barriers to patient understanding were identified. An opportunity to ask questions regarding the treatment plan was provided. All questions were answered. The patient expressed understanding and agreement with the above treatment plan. The patient is aware they should contact our office by phone for worsening of their current condition or the appearance of new urologic symptoms. Compliance is encouraged with any medications and followup testing that is ordered. It is a privilege to participate in the urologic care of your patient. If you have any questions or concerns regarding treatment for the above conditions, or other urologic issues, please do not hesitate to contact me. The office telephone contact is [phone]. This note is constructed using voice recognition software. While every effort has been made to ensure accuracy fabric separator operator errors may have been included. Yours sincerely, Dr Trevor Restrepo MD, [facility] - Urology Providers of Expert, Compassionate Care for the Genitourinary System Coding Level of Care Code Est Pt Level 3 (58077) Diagnoses Osteoporosis due to androgen therapy M81.8; T38.7X5A Prostate cancer C61 Prostate cancer metastatic to bone C61; C79.51
== END 2024-05-16 14:26 | disposition home or self-care (01) ==
PROVIDERS: PCP Registered Nurse; Visit Provider Urology
DX: M81.8 Other osteoporosis without current pathological fracture (principal); T38.7X5A Adverse effect of androgens and anabolic congeners, initial encounter; C61 Malignant neoplasm of prostate; C79.51 Secondary malignant neoplasm of bone
CPT/HCPCS: 99213

== ENCOUNTER → 2024-05-16 13:49 | Outpatient (BNVA) | payer MEDICARE, MEDICAID, SELFPAY | PROVIDERS: PCP Registered Nurse; Visit Provider Urology | DX: C61 Malignant neoplasm of prostate (principal); C79.51 Secondary malignant neoplasm of bone; R33.9 Retention of urine, unspecified; M81.8 Other osteoporosis without current pathological fracture; T38.7X5A Adverse effect of androgens and anabolic congeners, initial encounter; X58.XXXA Exposure to other specified factors, initial encounter | CPT/HCPCS: 99212 ==

== ENCOUNTER 2024-07-26 11:22 | Outpatient (REF) | payer MEDICARE, MEDICAID, SELFPAY ==
--- OUTSIDE RECORDS SUMMARY | 2024-07-26 11:25 | XMS_ITS ---
Author Name Erin, Clinic Address [address] [place] [address] Phone [phone] Organization [facility], NA DOCUMENT DISCLAIMER Multiple document versions may exist, please be sure you review the latest version. The information in the [facility] Continuity of Care Document represents a summary of certain health and medical information. It may not contain the complete medical history for the patient and should be independently verified. The represented time in the document is Eastern Time. PROBLEMS Problem Code Status Onset Date Hypertensive chronic kidney disease with stage 5 chronic kidney disease or end stage renal disease I12.0 Active July 19, 2024 Iron deficiency anemia, unspecified D50.9 Activ e July 19, 2024 Secondary hyperparathyroidism of renal origin N25.81 Active July 19, 2024 Anemia in chronic kidney disease D63.1 Active July 19, 2024 Dependence on renal dialysis Z99.2 Active July 19, 2024 Hypertensive chronic kidney disease with stage 1 through stage 4 chronic kidney disease, or unspecified chronic kidney disease I12.9 Active Mayob er 2020 End stage renal disease N18.6 Active [facility] 2020 ALLERGIES AND ADVERSE REACTIONS No Known Allergies SOCIAL HISTORY Tobacco Use Status Tobacco Type Unknown if ever consumed tobacco - Caregiver Characteristics No Information Available Characteristics of Home environment No Information Available Gender and Sex Information Gender Identity Sexual Orientation No Information Available No Information Available MEDICATIONS No Medications VITAL SIGNS Other Other Value Date / Time Height 165.1 cm August 12, 2023 12:00 AM [facility]ALTH [facility]NS Tuberculosis Testing TST Date Administered TST Date Read TST Result 08/03/2023 08/05/2023 Negative (<5) mm LAB RESULTS Infectious Diseases Result Type Result Value Relevant Referen ce Range Interpretation Date Hep B Surface Ag (HBsAg) Negative No Reference Range Provided Normal August 08, 2023 TRANSPLANT WAITLIST STATUS No Information on Transplant Waitlist Status
[2024-07-26 13:56] LABS: Cholesterol 142 mg/dL (<200); HDL Cholesterol 49 mg/dL (>40); LDL Cholesterol Calculated 83 mg/dL (<100); Triglycerides 54 mg/dL (<150)
== END 2024-07-26 11:23 | disposition home or self-care (01) ==
LOC: HO.HMGCLDS 11:22
PROVIDERS: PCP Registered Nurse; Visit Provider Registered Nurse
DX: E78.5 Hyperlipidemia, unspecified (principal)
CPT/HCPCS: 36415; 80061

== ENCOUNTER 2024-09-08 09:21 | Inpatient (IN) | payer MEDICARE, MEDICAID, SELFPAY ==
[2024-09-08] VITALS (14 sets, daily range): BP systolic 155–190; BP diastolic 60–82; PULSE 73–136; RESP 16–23; TEMP 36.6–37.1; O2SAT 87–97; BMI 24.3; BMI 24.6
--- NOTE | ~2024-09-08 | XR_ITS ---
CLINICAL HISTORY: Hypoxia 1 view chest x-ray Comparison: CT/SR - CT CHEST WO IV CON - 09/08/24 11:21 EST CR/NV/SR - XR CHEST 1V - 08/04/23 15:55 EST Findings: Similar vascular congestion, pulmonary edema, small bilateral pleural effusions [id number]. Mild atelectatic basilar lung changes. Stable cardiomegaly. Normal mediastinal contour. Bones unchanged with arthritic changes both shoulders. Upper abdomen unremarkable. Impression: Similar congestive changes. This document has been electronically signed by: Malick Mesa MD on 09/09/2024 09:04:49
--- NOTE | ~2024-09-08 | NM_ITS ---
CLINICAL HISTORY: hypoxia, hx of malignancy, sob r o PE NM Lung Perfusion Comparison: None Findings: 4.0 mCi technetium 99m MAA used. No perfusion defects. IMPRESSION: No perfusion defects. This document has been electronically signed by: Solange Mosqueda MD on 09/09/2024 08:33:03
--- NOTE | ~2024-09-08 | CT_ITS ---
CLINICAL HISTORY: sob cough hx malignancy CT chest without contrast Comparison: CR/SD/SR - XR CHEST 1V - 08/04/23 15:55 EST CR/SR - XR CHEST 2V - 07/19/23 13:[address]/SD - CT CHEST WO CON - 04/02/21 00:15 EDT Findings: No mediastinal mass or lymphadenopathy. Cardiomegaly. Severe calcified coronary artery disease. Normal size thoracic aorta with moderate calcified atherosclerotic disease. Severe calcified atherosclerotic disease in the upper abdomen. Smooth interlobular septal thickening with a mild amount of bilateral ground-glass opacity. Subsegmental atelectasis versus linear scarring. No pneumothorax. Small right and trace left pleural effusions. No acute osseous or soft tissue abnormality. Sclerotic osseous lesions, such as the lesion in T9, unchanged No gallstones visible on CT. There is mild gallbladder wall thickening and pericholecystic fluid. Small ascites in the upper abdomen. Impression: Mild pulmonary edema. Small ascites in the upper abdomen. Mild gallbladder wall thickening/trace pericholecystic fluid is likely secondary to systemic pathology such as congestive hepatopathy. No gallstones visible on CT. This document has been electronically signed by: Joan Mendoza MD on 09/08/2024 13:00:56
--- OUTSIDE RECORDS SUMMARY | 2024-09-08 10:04 | XMS_ITS | Encounter Summary ---
Author Organization [facility] Address [address] [facility] [address] [phone] Phone Care Team Providers Care Systems Navigator Name Role Phone Unavailable Primary Care Provider Unavailabl e Reason for Visit * Reason Onset Date Comments Med Refill 07/17/2021 Encounter Details Date Type Department Care Team (Late st Contact Info) Description 07/17/2021 Refill [facility] [address] [place] [phone] Radha Palemr [address] [facility] Corey [facility] [address] [place] [address] Social History Tobacco Use Types Packs/Day Years Used Date Smoking Tobacco: Former Comments:Smoking History Inf o:Every day Sex and Gender Information Value Date Recorded Sex Assigned at Not on file Legal Sex Male 4:53 PM EST Gender Identity Not on file Sexual Orientation Not on file documented as of this encounter Plan of Treatment Not on file documented as of this encounter Visit Diagnoses Not on filedocumented in this encounter
--- OUTSIDE RECORDS SUMMARY | 2024-09-08 10:04 | XMS_ITS | Encounter Summary ---
Author Organization [employer] Address [address] [place] [address] [address] [place] [address] Care Team Providers Care Electronic Tech Name Role Phone Andie Whitmore Primary Care Provider [phone] Trevor Restrepo MD Unavailable [phone] Juvenal Cr MD Unavailable [phone] Kamini Chavarria MD Unavailable [phone] Winston Bhagat DPM Unavailable [phone] Reason for Referral * Imaging (Urgent) - Closed Specialty Diagnoses / Procedures Referred By Contac t Referred To Contact Cardiology Diagnoses ESRD (end stage renal disease) ([facility]) Primary hypertension Shortness of breath Procedures Transthoracic Echo (TTE) Complete Andie Whitmore FNP [address] [place] [address] Phone: tel: fax: [address] Phone: tel: fax: Referral ID Status Reason Start Date Expiration Date V isits Requested Visits Authorized [id number] Closed Perform Procedure 06/29/2023 06/28/2024 1 1 Reason for Visit * Reason Onset Date Comments Call Back Request 06/21/2023 Encounter Details Date Type Department Care Team (Late st Contact Info) Description 06/21/[address] [facility] [address] [place] [address] Andie Whitmore FNP [address] [place] [address] Call Back Request Social History Tobacco Use Types Packs/Day Years Used Date Smoking Tobacco: Never Passive Smoke Exposure: Never Smokeless Tobacco: Never Alcohol Use Standard Drinks/Week Comments Never 0 (1 standard drink = 0.6 oz pur e alcohol) Depression Answer Date Recorded Patient Health Questionnaire-9 Score 1 12/22/2022 Housing Stability Answer Date Recorded What is your housing situation today? I have marvin morales 05/17/[address] you li ve. Do you have problems with any of the following? None of the above 05/17/2023 Food Insecurity Answer Date Recorded Within the past 12 months, y ou worried that your food would run out before you got money to buy more: Never True 05/17/2023 Within the past 12 months,th e food you bought just didn't last and you didn't have enough money to get more: Never True Transportation Answer Date Recorded In the past 12 months, has l ack of transportation kept you from medical appts, meetings, work or from getting things needed for daily living? No 05/17/2023 Utilities Answer Date Recorded In the past 12 months, has t he electric, gas, oil or water company threatened to shut off services in your home? No 05/17/2023 Depression Answer Date Recorded Patient Health Questionnaire-2 Score 0 12/22/2022 Sex and Gender Information Value Date Recorded Sex Assigned at Male 05/31/2022 10:39 AM EDT Legal Sex Male 10:39 AM EDT Gender Identity Male 05/31/2022 10:39 AM EDT Sexual Orientation Straight 05/31/2022 10 :39 AM EDT documented as of this encounter Miscellaneous Notes * Telephone Encounter - Alberta Chang RN - 06/30/2023 9:32 AM EST TC X1 to pt regarding message below. LVM to return call to nurses. * Telephone Encounter - CORINNE Echevarria - 06/29/2023 5:10 PM EST Order for TATE placed. Priority: urgent. Pt should expect to get called for scheduling some time in the next 1-2 weeks. Please also ask him to call cardiology office to be seen for follow up. He can call us if new referral is needed. Thank you! * Telephone Encounter - Aretha Alcantara - 06/29/2023 11:38 AM EST Tc from pt regarding message below. Pt stated he is waiting for ultrasound order of the heart. Contact pt at [phone] * Telephone Encounter - Iram Pierre RN - 06/22/2023 9:31 AM EST Please call Mr. Stahl and let him know that I spoke with Dr. Cr this morning and he is planning to make adjustments during tomorrow's dialysis session. I would also recommend echo to check how blood is flowing from his heart. Last note I can see from Cardiology is Jun [address] Zhang, with plan for echo but says that pt had declined at that time. Please ask if he has had echo since. If not, I would recommend that he follow up with Cards for echo. Thank you! TC placed to patient regarding above message from Kasia Whitmore. Patient expressed understanding. Patient reports that he saw Dr. Zhang just once, had an EKG, and the [facility] intern said he was just fine. Patient has not seen cardiology since. Patient is definitely willing to have an echo done. TC placedto Dr. Zhang's office to try to verify if patient still active in their system or if a new referralis needed. Could not reach anyone. Routing to Kasia Whitmore for potential new referral to cardiology for echo. * Telephone Encounter - CORINNE Echevarria - 06/21/2023 3:03 PM EST Please call Mr. Stahl and let him know that I spoke with Dr. Cr this morning and he is planning to make adjustments during tomorrow's dialysis session. I would also recommend echo to check how blood is flowing from his heart. Last note I can see from Cardiology is Jun [address] Zhang, with plan for echo but says that pt had declined at that time. Please ask if he has had echo since. If not, I would recommend that he follow up with Cards for echo. Thank you! * Telephone Encounter - Alberta Chang RN - 06/21/2023 2:57 PM EST Please review message below regarding further POC for pt and advise. * Telephone Encounter - Shane Kerr - 06/21/2023 2:34 PM EST Tc from pt requesting a call from provider or a nurse in regards to yesterday appt that pt was informed by provider that he had liquid around his chest. Pt is requesting if provider is going to speakwith his Kidney provider due to the matter and him having dialysis tomorrow. Please contact pt at [phone] documented in this encounter Plan of Treatment Scheduled Orders Name Type Priority Associated Diagnoses Order Schedule Transthoracic Echo (TTE) Complete Echocardiography Urgent ESRD (end stage renal disease) ([facility]) Primary hypertension Shortness of breath Expected: 06/29/2023 (Approximate), Expires: 06/29/2025 documented as of this encounter Visit Diagnoses Diagnosis ESRD (end stage renal disease) ([facility])- Primary End stage renal disease Primary hypertension Unspecified essential hypertension Shortness of breath documented in this encounter Additional Health Concerns Assessment Noted Time PHQ-9 Depression Total Score: 1 12/23/19 23 3:02 PM EDT documented as of this encounter Care Teams Electronic Tech Relationship Specialty Start Date End Date Andie Whitmore FNP [address] [place] [address] PCP - General Family Medicine 11/04/21 Trevor Restrepo MD [address] [place] [address] Urology 07/29/24 Juvenal Cr MD [address] [facility] [address] [place] [address] Nephrology 07/29/24 Kamini Chavarria MD [address] [place] [address] [address] [place] [address] Neurology 07/29/24 Winston Bhagat DPM [address] [facility] [address] [place] [address] Podiatry 07/29/24 documented as of this encounter
--- OUTSIDE RECORDS SUMMARY | 2024-09-08 10:04 | XMS_ITS | Clinical Summary ---
Author Organization [facility] Address [address] [place] [address] Phone Care Team Providers Care Gang Rider Name Role Phone Unavailable Primary Care Provider Unavailabl e Medications bicalutamide (CASODEX) 50 MG chemo tablet Take 50 mg by mouth 1 (one) time each day 04/13/2021 Active amLODIPine (NORVASC) 5 MG tablet Take 1 tablet (5 mg total) by mouth 1 (one) time each day 90 tablet 5 04/12/2022 Active rOPINIRole (Requip) 0.25 MG tablet Take 1 tablet (0.25 mg total) by mouth 1 (one) time each day with dinner Take one tablet at night. Can go up to 2 Tablets at night 90 tablet 5 06/30/2022 Active gabapentin (Neurontin) 100 MG capsule Take 1 capsule (100 mg total) by mouth in the morning and 1 capsule (100 mg total) in the evening. 90 capsule 5 07/12/2022 Active carbidopa-levod opa (SINEMET) 25-100 MG per tablet TAKE 1 TABLET BY MOUTH EVERY NIGHT IN THE MORNING AND AT BEDTIME 60 tablet 11 08/17/2022 Active bumetanide (BUMEX) 2 MG tablet Take 1 tablet (2 mg total) by mouth 1 (one) time each day 51 tablet 3 11/24/2023 Active bumetanide (BUMEX) 2 MG tablet Take 1 tablet (2 mg total) by mouth in the morning and 1 tablet (2 mg total) in the evening. 180 tablet 11/24/2023 Active sevelamer carbonate (Renvela) 800 MG tablet Take 1 tablet (800 mg total) by mouth in the morning and 1 tablet (800 mg total) at noon and 1 tablet (800 mg total) in the evening. Take with meals. Swallow tablet whole; do not crush, break, or chew.. 90 tablet 11 02/07/2024 5 Active Calcium Acetate, Phos Binder, 667 MG capsule Take 1,334 mg by mouth in the morning and 1,334 mg in the evening and 1,334 mg before bedtime. 180 capsule 3 05/14/2024 5 Active hydrALAZINE 100 MG tablet Take 1 tablet (100 mg total) by mouth in the morning and 1 tablet (100 mg total) in the evening. 60 tablet 11 05/21/2024 5 Active Active Problems Problem Noted Date Diagnosed Date Carcinoma of prostate 04/21/2021 Anemia of chronic renal failure 04/21/2021 Stage 5 chronic kidney disease 04/21/2021 Hyperkalemia 04/21/2021 Secondary hyperparathyroidism of renal origin Hypocalcemia 04/21/2021 Essential (primary) hypertension 04/21/2021 Acute nontraumatic kidney injury 04/17/2021 Hypertensive disorder 04/17/2021 Encounters Date Type Department Care Team Description 08/31/2024 Orders Only [facility] [address] [phone] Juvenal Cr MD 08/03/2024 Treatment [facility] [address] [phone] Juvenal Cr MD 07/31/2024 Treatment [facility] [address] [phone] Juvenal Cr MD 07/24/2024 Treatment [facility] [address] [phone] Juvenal Cr MD 07/09/2024 Treatment [facility] [address] [phone] Juvenal Cr MD 07/02/2024 Treatment [facility] [address] [place] [phone] Juvenal Cr MD 06/26/2024 Treatment [facility] [address] [phone] Juvenal Cr MD 06/20/2024 Treatment [facility] [address] [phone] Juvenal Cr MD 06/15/2024 Treatment [facility] [address] [phone] Juvenal Cr MD from Last 3 Months Family History Medical History Relation Comments Hypertension Father Kidney disease Sibling brother had cordon splant Relation Status Comments Father Unknown Mother Unknown Sibling Social History Tobacco Use Types Packs/Day Years Used Date Smoking Tobacco: Former Comments:Smoking History Inf o:Every day Sex and Gender Information Value Date Recorded Sex Assigned at Not on file Legal Sex Male 4:53 PM EST Gender Identity Not on file Sexual Orientation Not on file Last Filed Vital Signs Vital Sign Reading Time Taken Comments Blood Pressure 140/70 09/15/2018 12:00 PM EST Pulse 72 09/15/2018 12:00 PM EST Temperature - - Respiratory Rate - - Oxygen Saturation - - Inhaled Oxygen Concentration - - Weight 70.9 kg (156 lb 3.2 oz) 09/15/2018 12:00 PM EST Height 160 cm (5' 3 ) 09/15/2018 12:00 PM EST Body Mass Index 27.67 09/15/2018 12:00 PM EST Plan of Treatment Health Maintenance Due Date Last Done Comments Pneumococcal Vaccine: Pediat rics (0 to 5 Years) and At-Risk Patients (6 to 64 Years) (1 of 2 - PCV) 1967 Hepatitis B Vaccine (1 of 5 - Risk Dialysis 4-dose series) 1981 Colorectal Cancer Screening: Colonoscopy 2010 Colorectal Cancer Screening: Sigmoidoscopy 2010 Colorectal Cancer Screening: Annual FOBT 01/22/2023 01/22/2022, 11/27/2021 Influenza Vaccine (#1) 2024 Procedures Procedure Name Priority Date/Time Associated Diagnosis Comments HEPATITIS B SURFACE ANTIGEN W/REFL CONFIRM Routine 09/05/2024 3:00 AM EST FERRITIN Routine 09/05/2024 3:00 AM EST PTH, INTACT Routine 09/05/2024 3:00 AM EST TRANSFERRIN SATURATION Routine 3:00 AM EST PROTEIN, TOTAL, SERUM Routine 09/05/2024 3:00 AM EST MAGNESIUM Routine 09/05/2024 3:00 AM EST LIH (HC) Routine 09/05/2024 3:00 AM EST LACTATE DEHYDROGENASE Routine 09/05/2024 3:00 AM EST ELECTROLYTE PANEL Routine 09/05/2024 3:0 0 AM EST GLUCOSE, RANDOM Routine 09/05/2024 3:00 AM EST ALT Routine 09/05/2024 3:00 AM EST CREATININE, SERUM Routine 09/05/2024 3:0 0 AM EST BILIRUBIN, TOTAL Routine 09/05/2024 3:00 AM EST AST Routine 09/05/2024 3:00 AM EST CALCIUM PHOSPHORUS PRODUCT, ADJUSTED (HC) Routine 09/05/2024 3:00 AM EST ALKALINE PHOSPHATASE Routine 09/05/2024 3:00 AM EST KT/V NATURAL LOG, URR (HC) Routine 09/05/2024 3:00 AM EST CBC AND DIFFERENTIAL Routine 09/05/2024 3:00 AM EST ALUMINUM LEVEL Routine 08/31/2024 3:00 AM EST URIC ACID Routine 08/31/2024 3:00 AM EST TRANSFERRIN SATURATION Routine 3:00 AM EST PROTEIN, TOTAL, SERUM Routine 08/31/2024 3:00 AM EST MAGNESIUM Routine 08/31/2024 3:00 AM EST LIPID PANEL Routine 08/31/2024 3:00 AM EST ELECTROLYTE PANEL Routine 08/31/2024 3:0 0 AM EST LIH (HC) Routine 08/31/2024 3:00 AM EST CREATININE, SERUM Routine 08/31/2024 3:0 0 AM EST LACTATE DEHYDROGENASE Routine 08/31/2024 3:00 AM EST GLUCOSE, RANDOM Routine 08/31/2024 3:00 AM EST AST Routine 08/31/2024 3:00 AM EST BILIRUBIN, TOTAL Routine 08/31/2024 3:00 AM EST ALT Routine 08/31/2024 3:00 AM EST ALKALINE PHOSPHATASE Routine 08/31/2024 3:00 AM EST CALCIUM PHOSPHORUS PRODUCT, ADJUSTED (HC) Routine 08/31/2024 3:00 AM EST CONFIRMATION TEST HCV Routine 08/31/2024 3:00 AM EST HEPATITIS C ABS W/REFLEX RNA DETECTR Routine 08/31/2024 3:00 AM EST HEPATITIS B SURFACE ANTIGEN W/REFL CONFIRM Routine 08/31/2024 3:00 AM EST FERRITIN Routine 08/31/2024 3:00 AM EST PTH, INTACT Routine 08/31/2024 3:00 AM EST KT/V NATURAL LOG, URR (HC) Routine 08/31/2024 3:00 AM EST CBC AND DIFFERENTIAL Routine 08/31/2024 3:00 AM EST HEMOGLOBIN Routine 07/27/2024 3:00 AM EST HEPATITIS B CORE AB TOTAL Routine 07/20/2024 3:00 AM EST HEPATITIS B SURFACE ANTIGEN W/REFL CONFIRM Routine 07/20/2024 3:00 AM EST HEPATITIS B SURFACE ANTIBODY QUANT Routine 07/20/2024 3:00 AM EST HEMOGLOBIN AND HEMATOCRIT, BLOOD Routine 07/18/2024 3:00 AM EST LIH (HC) Routine 07/13/2024 3:00 AM EST CALCIUM PHOSPHORUS PRODUCT, ADJUSTED (HC) Routine 07/13/2024 3:00 AM EST HEMOGLOBIN Routine 07/11/2024 3:00 AM EST HEP B CORE AB, TOTAL W/REFLEX IGM (HC) Routine 07/04/2024 3:00 AM EST CONFIRMATION TEST HCV Routine 07/04/2024 3:00 AM EST HEPATITIS C ABS W/REFLEX RNA DETECTR Routine 07/04/2024 3:00 AM EST HIV 1,2 AB W/ REFLEX (HC) Routine 07/04/2024 3:00 AM EST HIV CONFIRMATION TEST Routine 07/04/2024 3:00 AM EST HEPATITIS B SURFACE ANTIGEN W/REFL CONFIRM Routine 07/04/2024 3:00 AM EST TRANSFERRIN SATURATION Routine 3:00 AM EST PROTEIN, TOTAL, SERUM Routine 07/04/2024 3:00 AM EST MAGNESIUM Routine 07/04/2024 3:00 AM EST ELECTROLYTE PANEL Routine 07/04/2024 3:0 0 AM EST LIH (HC) Routine 07/04/2024 3:00 AM EST GLUCOSE, RANDOM Routine 07/04/2024 3:00 AM EST LACTATE DEHYDROGENASE Routine 07/04/2024 3:00 AM EST CREATININE, SERUM Routine 07/04/2024 3:0 0 AM EST AST Routine 07/04/2024 3:00 AM EST BILIRUBIN, TOTAL Routine 07/04/2024 3:00 AM EST CALCIUM PHOSPHORUS PRODUCT, ADJUSTED (HC) Routine 07/04/2024 3:00 AM EST ALT Routine 07/04/2024 3:00 AM EST ALKALINE PHOSPHATASE Routine 07/04/2024 3:00 AM EST FERRITIN Routine 07/04/2024 3:00 AM EST HEPATITIS B SURFACE ANTIBODY QUANT Routine 07/04/2024 3:00 AM EST PTH, INTACT Routine 07/04/2024 3:00 AM EST CBC AND DIFFERENTIAL Routine 07/04/2024 3:00 AM EST KT/V NATURAL LOG, URR (HC) Routine 07/04/2024 3:00 AM EST HEMOGLOBIN Routine 06/26/2024 3:00 AM EST LIH (HC) Routine 06/22/2024 3:00 AM EST CALCIUM PHOSPHORUS PRODUCT, ADJUSTED (HC) Routine 06/22/2024 3:00 AM EST HEMOGLOBIN AND HEMATOCRIT, BLOOD Routine 06/20/2024 3:00 AM EST LIH (HC) Routine 06/15/2024 3:00 AM EST CALCIUM PHOSPHORUS PRODUCT, ADJUSTED (HC) Routine 06/15/2024 3:00 AM EST HEMOGLOBIN Routine 06/13/2024 3:00 AM EST OCCULT BLOOD X 3, STOOL Routine 01/22/2022 from Last 3 Months or Most Recently Relevant to Health Maintenance Results * LIH (09/05/2024 3:00 AM EST) Only the most recent of6 resultswithin the time period is included. Lipemia Normal Normal [facility] Icterus Normal Normal [facility] Hemolysis Normal Normal [facility] 09/05/2024 3:00 AM EST 09/06/2024 12:16 PM EST us Juvenal Cr MD LAB [id number] SOLICITED RESULTS Final Result [facility] [address] [place] [address] * (ABNORMAL) Kt/V Natural Log, URR (09/05/2024 3:00 AM EST) Only the most recent of3 resultswithin the time period is included. Treatment Time 224 min [facility] Pre-Weight, lb 61.9 kg [facility] Post-Weight, lb 60.8 kg [facility] Ultrafiltration Rate 5 <=13 mL/kg/hr [facility] Comment: Recommend achieving Ultrafiltration Rate (UFR) <=10 mL/kg/hr References: Gregory LIN et al. Kidney Int. 2010; 79(2):250-257 BUN 36(H) 7 - 25 mg/dL [facility] BUN Post Dialysis 9 7 - 25 mg/dL [facility] UREA REDUCTION RATIO (%) 75 >=65 % [facility] Kt/V Natural Log 1.57 >=1.2 [facility] 09/05/2024 3:00 AM EST 09/06/2024 12:16 PM EST Juvenal Cr MD LAB [id number] SOLICITED RESULTS Final Result Performing Organization Address [facility] de Phone Number [facility] [address] [place] [address] * (ABNORMAL) Calcium Phosphorus Product, Adjusted (09/05/2024 3:00 AM EST) Only the most recent of6 resultswithin the time period is included. Albumin 4.3 3.6 - 5.4 g/dL [facility] Calcium 10.1 8.6 - 10.3 mg/dL [facility] Phosphorus, Serum 7.7(H) 2.5 - 5.0 mg/dL [facility] Ca*PO4 77.8(A) <55.0 mg2/dL2 [facility] Calcium, Adjusted Total 10.1 8.6 - 10.3 mg/dL [facility] CA*PO4 CORRCTD 77.8(A) <55.0 mg2/dL2 [facility] 09/05/2024 3:00 AM EST 09/06/2024 12:16 PM EST Juvenal Cr MD LAB [id number] SOLICITED RESULTS Final Result Performing Organization Address [facility] de Phone Number [facility] [address] [place] [address] * Hepatitis B Surface Ag w/Reflex Confirmation (09/05/2024 3:00 AM EST) Only the most recent of4 resultswithin the time period is included. [facility] Hep B Surface Antigen Negative Negative [facility] 09/05/2024 3:00 AM EST 09/06/2024 12:16 PM EST Juvenal Cr MD LAB BLOOD ORDERABLES Final Re sult Performing Organization Address [facility] Co de Phone Number [facility] [address] [place] [address] * (ABNORMAL) TSAT (09/05/2024 3:00 AM EST) Only the most recent of3 resultswithin the time period is included. [facility] Iron 57(L) 65 - 175 ug/dL [facility] Transferrin 153(L) 215 - 365 mg/dL [facility] TIBC 214 211 - 406 ug/dL [facility] Iron Saturation (TSat) 27 22 - 52 % [facility] 09/05/2024 3:00 AM EST 09/06/2024 12:16 PM EST Juvenal Cr MD LAB BLOOD ORDERABLES Final Re sult Performing Organization Address [facility] de Phone Number [facility] [address] [place] [address] * (ABNORMAL) CBC and Differential (09/05/2024 3:00 AM EST) Only the most recent of3 resultswithin the time period is included. [facility] DIFFERENTIAL MANUAL, 2 Not Indicated [facility] White Blood Cells 9.0 4.2 - 9.1 K/uL [facility] RBC 2.96(L) 4.63 - 6.08 M/uL [facility] Hgb 8.3(L) 13.7 - 17.5 g/dL [facility] Hemoglobin x 3 24.9(L) 41.1 - 52.5 g/dL [facility] Hematocrit 24.7(L) 40.1 - 51.0 % [facility] MCV 83.4 79.0 - 92.2 fL [facility] MCH 28.0 25.7 - 32.2 pg [facility] MCHC 33.6 32.3 - 36.5 g/dL [facility] Platelets 244 163 - 337 K/uL [facility] RDW 17.6(H) 11.6 - 14.4 % [facility] Neutrophils Relative 83.2(H) 34.0 - 67.9 % [facility] Lymphocytes Relative 7.5(L) 21.8 - 53.1 % [facility] Monocytes 5.9 5.3 - 12.2 % [facility] Eosinophils Relative 2.2 0.8 - 7.0 % [facility] Basophils Relative 0.8 0.2 - 1.2 % [facility] Immature Granulocytes 0.4 0.0 - 1.0 % [facility] 09/05/2024 3:00 AM EST 09/06/2024 12:16 PM EST us Juvenal Cr MD LAB BLOOD ORDERABLES Final Re sult Performing Organization Address [facility] de Phone Number [facility] [address] [place] [address] * (ABNORMAL) ALT (09/05/2024 3:00 AM EST) Only the most recent of3 resultswithin the time period is included. ALT (SGPT) 8(L) 10 - 49 U/L [facility] 09/05/2024 3:00 AM EST 09/06/2024 12:16 PM EST us Juvenal Cr MD LAB BLOOD ORDERABLES Final Re sult Performing Organization Address City/[facility] Co de Phone Number [facility] [address] [place] [address] * AST (09/05/2024 3:00 AM EST) Only the most recent of3 resultswithin the time period is included. AST (SGOT) 17 <34 U/L [facility] 09/05/2024 3:00 AM EST 09/06/2024 12:16 PM EST us Juvenal Cr MD LAB BLOOD ORDERABLES Final Re sult Performing Organization Address [facility] de Phone Number [facility] [address] [place] [address] * Protein, total (09/05/2024 3:00 AM EST) Only the most recent of3 resultswithin the time period is included. Total Protein 6.8 6.4 - 8.9 g/dL [facility] 09/05/2024 3:00 AM EST 09/06/2024 12:16 PM EST Juvenal Cr MD LAB BLOOD ORDERABLES Final Re sult Performing Organization Address [facility] de Phone Number [facility] [address] [place] [address] * Alkaline phosphatase (09/05/2024 3:00 AM EST) Only the most recent of3 resultswithin the time period is included. Alkaline Phosphatase 99 46 - 116 U/L [facility] 09/05/2024 3:00 AM EST 09/06/2024 12:16 PM EST Juvenal Cr MD LAB BLOOD ORDERABLES Final Re sult Performing Organization Address [facility] de Phone Number [facility] [address] [place] [address] * (ABNORMAL) PTH, Intact (09/05/2024 3:00 AM EST) Only the most recent of3 resultswithin the time period is included. PTH, Intact 64(L) 160 - 721 pg/mL [facility] Comment: Suggested (KDIGO) ESRD maintenance range is two to nine times the upper normal limit (80.1 pg/mL) for the laboratory. 09/05/2024 3:00 AM EST 09/06/2024 12:16 PM EST Juvenal Cr MD LAB BLOOD ORDERABLES Final Re sult Performing Organization Address [facility]/ZIP Co de Phone Number [facility] [address] [place] [address] * Magnesium (09/05/2024 3:00 AM EST) Only the most recent of3 resultswithin the time period is included. Magnesium 2.2 1.9 - 2.7 mg/dL [facility] 09/05/2024 3:00 AM EST 09/06/2024 12:16 PM EST Juvenal Cr MD LAB BLOOD ORDERABLES Final Re sult Performing Organization Address [facility] de Phone Number [facility] [address] [place] [address] * Lactate dehydrogenase (09/05/2024 3:00 AM EST) Only the most recent of3 resultswithin the time period is included. LDH 210 120 - 246 U/L [facility] 09/05/2024 3:00 AM EST 09/06/2024 12:16 PM EST Juvenal Cr MD LAB BLOOD ORDERABLES Final Re sult Performing Organization Address [facility] de Phone Number [facility] [address] [place] [address] * (ABNORMAL) Glucose, random (09/05/2024 3:00 AM EST) Only the most recent of3 resultswithin the time period is included. Glucose 51(L) 74 - 109 mg/dL [facility] 09/05/2024 3:00 AM EST 09/06/2024 12:16 PM EST us Juvenal Cr MD LAB BLOOD ORDERABLES Final Re sult Performing Organization Address [facility] Co de Phone Number [facility] [address] [place] [address] * (ABNORMAL) Ferritin (09/05/2024 3:00 AM EST) Only the most recent of3 resultswithin the time period is included. Ferritin 1,253(H) 22 - 322 ng/mL [facility] 09/05/2024 3:00 AM EST 09/06/2024 12:16 PM EST Juvenal Cr MD LAB BLOOD ORDERABLES Final Re sult Performing Organization Address [facility] Co de Phone Number [facility] [address] [place] [address] * (ABNORMAL) Creatinine, serum (09/05/2024 3:00 AM EST) Only the most recent of3 resultswithin the time period is included. Creatinine 6.52(H) 0.70 - 1.30 mg/dL [facility] 09/05/2024 3:00 AM EST 09/06/2024 12:16 PM EST Juvenal Cr MD LAB BLOOD ORDERABLES Final Re sult Performing Organization Address [facility] de Phone Number [facility] [address] [place] [address] * Bilirubin, total (09/05/2024 3:00 AM EST) Only the most recent of3 resultswithin the time period is included. Total Bilirubin 0.5 0.3 - 1.2 mg/dL [facility] 09/05/2024 3:00 AM EST 09/06/2024 12:16 PM EST Juvenal Cr MD LAB BLOOD ORDERABLES Final Re sult Performing Organization Address [facility] de Phone Number [facility] [address] [place] [address] * (ABNORMAL) Electrolyte panel (09/05/2024 3:00 AM EST) Only the most recent of3 resultswithin the time period is included. Sodium 128(L) 136 - 145 mEq/L [facility] Potassium 3.8 3.4 - 5.0 mEq/L [facility] Chloride 92(L) 98 - 107 mEq/L [facility] Bicarbonate (CO2) 22 21 - 31 mEq/L [facility] Anion Gap 14 3 - 14 mEq/L [facility] 09/05/2024 3:00 AM EST 09/06/2024 12:16 PM EST Juvenal Cr MD LAB BLOOD ORDERABLES Final Re sult Performing Organization Address [facility] de Phone Number [facility] [address] [place] [address] * Confirmation Test HCV (08/31/2024 3:00 AM EST) Only the most recent of2 resultswithin the time period is included. Hep C Ab Confirmation Not needed [facility] 08/31/2024 3:00 AM EST 09/01/2024 1:35 PM EST Juvenal Cr MD LAB BLOOD ORDERABLES Final Re sult Performing Organization Address [facility] de Phone Number [facility] [address] [place] [address] * HEPATITIS C ABS W/REFLEX RNA DETECTR (08/31/2024 3:00 AM EST) Only the most recent of2 resultswithin the time period is included. Hep C Virus Ab Non-Reacti ve Non-Reacti ve [facility] 08/31/2024 3:00 AM EST 09/01/2024 1:41 PM EST Juvenal Cr MD LAB [id number] SOLICITED RESULTS Final Result Performing Organization Address [facility] de Phone Number [facility] [address] [place] [address] * Aluminum level (08/31/2024 3:00 AM EST) Aluminum 5 1 - 20 ug/L [facility] 08/31/2024 3:00 AM EST 09/01/2024 1:40 PM EST Juvenal Cr MD LAB BLOOD ORDERABLES Final Re sult Performing Organization Address [facility] de Phone Number [facility] [address] [place] [address] * Uric Acid (08/31/2024 3:00 AM EST) Uric Acid 5.4 4.4 - 7.6 mg/dL [facility] 08/31/2024 3:00 AM EST 09/01/2024 1:41 PM EST Juvenal Cr MD LAB BLOOD ORDERABLES Final Re sult Performing Organization Address [facility] de Phone Number [facility] [address] [place] [address] * (ABNORMAL) Lipid panel (08/31/2024 3:00 AM EST) Cholesterol 158 <200 mg/dL [facility] Comment: Optimal: ?<200 Borderline: ? 200-239 Higher Risk: ?>239 Triglycerides 56 <150 mg/dL [facility] Comment: Optimal: ?<150 Borderline High: ??150-199 High: ? 200-499 Very High: ?>499 HDL 56(A) >59 mg/dL [facility] Comment: Desirable: ?>59 Higher Risk: ?<40 LDL-Calc 91 <100 mg/dL [facility] Comment: Optimal: ?<100 Above Optimal: ?100-129 Borderline High: ??130-159 High: ? 160-189 Very High: ?>189 VLDL Cholesterol Isaias 11 <30 mg/dL [facility] Comment: Optimal: ?<30 Borderline High: ??30-39 High: ? 40-99 Very High: ?>99 Chol/HDL Ratio 2.8 <3.3 [facility] Comment: Optimal: ?<3.3 Higher Risk: ?>6.2 08/31/2024 3:00 AM EST 09/01/2024 1:41 PM EST Juvenal Cr MD LAB BLOOD ORDERABLES Final Re sult Performing Organization Address [facility] de Phone Number [facility] [address] [place] [address] * (ABNORMAL) Hemoglobin (07/27/2024 3:00 AM EST) Only the most recent of4 resultswithin the time period is included. Hgb 9.3(L) 13.7 - 17.5 g/dL [facility] Hemoglobin x 3 27.9(L) 41.1 - 52.5 g/dL [facility] 07/27/2024 3:00 AM EST 07/28/2024 12:49 PM EST Juvenal Cr MD LAB BLOOD ORDERABLES Final Re sult Performing Organization Address [facility] de Phone Number [facility] [address] [place] [address] * Hepatitis B Core Antibody, Total (07/20/2024 3:00 AM EST) HBc Total Ab, S Negative Negative [facility] 07/20/2024 3:00 AM EST 07/21/2024 1:45 PM EST Juvenal Cr MD LAB BLOOD ORDERABLES Final Re sult Performing Organization Address [facility] de Phone Number [facility] [address] [place] [address] * (ABNORMAL) Hepatitis B Surface Antibody (07/20/2024 3:00 AM EST) Only the most recent of2 resultswithin the time period is included. Hep B Surface Antibody <4(A) mIU/mL [facility] Comment: Interpretation: <10: No Immunity >=10: Probable Immunity 07/20/2024 3:00 AM EST 07/21/2024 1:45 PM EST Juvenal rC MD LAB BLOOD ORDERABLES Final Re sult Performing Organization Address [facility] de Phone Number [facility] [address] [place] [address] * (ABNORMAL) Hemoglobin and hematocrit (07/18/2024 3:00 AM EST) Only the most recent of2 resultswithin the time period is included. Hgb 11.2(L) 13.7 - 17.5 g/dL [facility] Hematocrit 34.6(L) 40.1 - 51.0 % [facility] Hemoglobin x 3 33.6(L) 41.1 - 52.5 g/dL [facility] 07/18/2024 3:00 AM EST 07/19/2024 2:27 PM EST Juevnal Cr MD LAB BLOOD ORDERABLES Final Re sult Performing Organization Address [facility] de Phone Number [facility] [address] [place] [address] * HIV Confirmation Test (07/04/2024 3:00 AM EST) Confirmation Not needed [facility] 07/04/2024 3:00 AM EST 07/05/2024 6:26 PM EST Juvenal rC MD LAB BLOOD ORDERABLES Final Re sult Performing Organization Address [facility] de Phone Number [facility] [address] [place] [address] * HIV 1,2 Ab w/ Reflex (07/04/2024 3:00 AM EST) HIV 1 & 2 AG & AB Screen Non-React elsie Non-React elsie [facility] Comment: The performance of the Siemens [employer] IM CHIV assay is limited to the detection of p24 antigen and/or antibodies to HIV-1 and/or HIV-2. A nonreactive test result does not exclude the possibility of exposure to or infection with HIV as antibodies may be undetectable in some stages of the infection and clinical conditions. 07/04/2024 3:00 AM EST 07/05/2024 6:22 PM EST Juvenal Cr MD LAB [id number] SOLICITED RESULTS Final Result Performing Organization Address [facility] Co de Phone Number [facility] [address] [place] [address] * Hep B Core Ab, Total w/Reflex IgM (07/04/2024 3:00 AM EST) HBc Total Ab, S Negative Negative [facility] 07/04/2024 3:00 AM EST 07/05/2024 6:22 PM EST Juvenal Cr MD LAB [id number] SOLICITED RESULTS Final Result Performing Organization Address [facility] [facility] de Phone Number [facility] [address] [place] [address] * Occult blood x 3, stool (01/22/2022) Occult Blood, Stool #1 Negative Negative [facility] Comment: Performed by [facility]. Occult Blood, Stool #2 Negative Negative [facility] Comment: Performed by [facility]. Collection Time 600 [facility] 01/22/2022 01/27/2022 1:2 3 PM EDT Narrative [facility] - 01/27/2022 Unless otherwise specified, test(s) performed at: [facility] [employer], [address] [place] [id number] PASSENGER AGENT: Cruzito Knutson M.D. For any questions, please call customer service at FREQUENCY:OTHER Resulting Agency Comment Specimen source: Occult Blood Card Juvenal Cr MD LAB BODY FLUIDS AND STOOLS OR DERABLES Final Result [facility] from Last 3 Months or Most Recently Relevant to Health Maintenance Insurance [place]
--- OUTSIDE RECORDS SUMMARY | 2024-09-08 10:04 | XMS_ITS | Encounter Summary ---
Author Organization [facility] Address [address] [address] Phone Care Team Providers Care Intensive Care Unit Nurse Name Role Phone Unavailable Primary Care Provider Unavailabl e Encounter Details Date Type Department Care Team ([facility] st Contact Info) Description 08/31/2024 Orders Only [facility] [address] [id number] Juvenal Cr MD [address] [id number] Social History Tobacco Use Types Packs/Day Years Used Date Smoking Tobacco: Former Comments:Smoking History Inf o:Every day Sex and Gender Information Value Date Recorded Sex Assigned at Not on file Legal Sex Male 4:53 PM EST Gender Identity Not on file Sexual Orientation Not on file documented as of this encounter Plan of Treatment Not on file documented as of this encounter Procedures Procedure Name Priority Date/Time Associated Diagnosis Comments LIH () Routine 09/05/2024 3:00 AM EST KT/V NATURAL LOG, URR () Routine 09/05/2024 3:00 AM EST CALCIUM PHOSPHORUS PRODUCT, ADJUSTED () Routine 09/05/2024 3:00 AM EST HEPATITIS B SURFACE ANTIGEN W/REFL CONFIRM Routine 09/05/2024 3:00 AM EST TRANSFERRIN SATURATION Routine 3:00 AM EST CBC AND DIFFERENTIAL Routine 09/05/2024 3:00 AM EST ALT Routine 09/05/2024 3:00 AM EST AST Routine 09/05/2024 3:00 AM EST PROTEIN, TOTAL, SERUM Routine 09/05/2024 3:00 AM EST ALKALINE PHOSPHATASE Routine 09/05/2024 3:00 AM EST PTH, INTACT Routine 09/05/2024 3:00 AM EST MAGNESIUM Routine 09/05/2024 3:00 AM EST LACTATE DEHYDROGENASE Routine 09/05/2024 3:00 AM EST GLUCOSE, RANDOM Routine 09/05/2024 3:00 AM EST FERRITIN Routine 09/05/2024 3:00 AM EST CREATININE, SERUM Routine 09/05/2024 3:0 0 AM EST BILIRUBIN, TOTAL Routine 09/05/2024 3:00 AM EST ELECTROLYTE PANEL Routine 09/05/2024 3:0 0 AM EST CONFIRMATION TEST HCV Routine 08/31/2024 3:00 AM EST LIH (HC) Routine 08/31/2024 3:00 AM EST KT/V NATURAL LOG, URR (HC) Routine 08/31/2024 3:00 AM EST CALCIUM PHOSPHORUS PRODUCT, ADJUSTED (HC) Routine 08/31/2024 3:00 AM EST HEPATITIS C ABS W/REFLEX RNA DETECTR Routine 08/31/2024 3:00 AM EST HEPATITIS B SURFACE ANTIGEN W/REFL CONFIRM Routine 08/31/2024 3:00 AM EST TRANSFERRIN SATURATION Routine 3:00 AM EST ALUMINUM LEVEL Routine 08/31/2024 3:00 AM EST CBC AND DIFFERENTIAL Routine 08/31/2024 3:00 AM EST URIC ACID Routine 08/31/2024 3:00 AM EST ALT Routine 08/31/2024 3:00 AM EST AST Routine 08/31/2024 3:00 AM EST PROTEIN, TOTAL, SERUM Routine 08/31/2024 3:00 AM EST ALKALINE PHOSPHATASE Routine 08/31/2024 3:00 AM EST PTH, INTACT Routine 08/31/2024 3:00 AM EST MAGNESIUM Routine 08/31/2024 3:00 AM EST LACTATE DEHYDROGENASE Routine 08/31/2024 3:00 AM EST GLUCOSE, RANDOM Routine 08/31/2024 3:00 AM EST FERRITIN Routine 08/31/2024 3:00 AM EST CREATININE, SERUM Routine 08/31/2024 3:0 0 AM EST BILIRUBIN, TOTAL Routine 08/31/2024 3:00 AM EST LIPID PANEL Routine 08/31/2024 3:00 AM EST ELECTROLYTE PANEL Routine 08/31/2024 3:0 0 AM EST documented in this encounter Results * Hepatitis B Surface Ag w/Reflex Confirmation (09/05/2024 3:00 AM EST) Pathologist [facility] Hep B Surface Antigen Negative Negative [facility] 09/05/2024 3:00 AM EST 09/06/2024 12:16 PM EST Juvenal Cr MD LAB BLOOD ORDERABLES Final Re sult Performing Organization Address [facility] de Phone Number [facility] [address] [place] [address] * (ABNORMAL) Ferritin (09/05/2024 3:00 AM EST) Pathologist [facility] Ferritin 1,253(H) 22 - 322 ng/mL [facility] 09/05/2024 3:00 AM EST 09/06/2024 12:16 PM EST Juvenal Cr MD LAB BLOOD ORDERABLES Final Re sult Performing Organization Address [facility] de Phone Number [facility] [address] [place] [address] * (ABNORMAL) PTH, Intact (09/05/2024 3:00 AM EST) Pathologist [facility] PTH, Intact 64(L) 160 - 721 pg/mL [facility] Comment: Suggested (KDIGO) ESRD maintenance range is two to nine times the upper normal limit (80.1 pg/mL) for the laboratory. 09/05/2024 3:00 AM EST 09/06/2024 12:16 PM EST Juvenal Cr MD LAB BLOOD ORDERABLES Final Re sult Performing Organization Address [facility] de Phone Number [facility] [address] [place] [address] * (ABNORMAL) TSAT (09/05/2024 3:00 AM EST) Pathologist [facility] Iron 57(L) 65 - 175 ug/dL [facility] Transferrin 153(L) 215 - 365 mg/dL [facility] TIBC 214 211 - 406 ug/dL [facility] Iron Saturation (TSat) 27 22 - 52 % [facility] 09/05/2024 3:00 AM EST 09/06/2024 12:16 PM EST Juvenal Cr MD LAB BLOOD ORDERABLES Final Re sult Performing Organization Address [facility] de Phone Number [facility] [address] [place] [address] * Protein, total (09/05/2024 3:00 AM EST) Total Protein 6.8 6.4 - 8.9 g/dL [facility] 09/05/2024 3:00 AM EST 09/06/2024 12:16 PM EST Juvenal Cr MD LAB BLOOD ORDERABLES Final Re sult Performing Organization Address [facility] de Phone Number [facility] [address] [place] [address] * Magnesium (09/05/2024 3:00 AM EST) Magnesium 2.2 1.9 - 2.7 mg/dL [facility] 09/05/2024 3:00 AM EST 09/06/2024 12:16 PM EST Juvenal Cr MD LAB BLOOD ORDERABLES Final Re sult Performing Organization Address [facility] de Phone Number [facility] [address] [place] [address] * LIH (09/05/2024 3:00 AM EST) Lipemia Normal Normal [facility] Icterus Normal Normal [facility] Hemolysis Normal Normal [facility] 09/05/2024 3:00 AM EST 09/06/2024 12:16 PM EST Juvenal Cr MD LAB [id number] SOLICITED RESULTS Final Result Performing Organization Address [facility] de Phone Number [facility] [address] [place] [address] * Lactate dehydrogenase (09/05/2024 3:00 AM EST) LDH 210 120 - 246 U/L [facility] 09/05/2024 3:00 AM EST 09/06/2024 12:16 PM EST Juvenal Cr MD LAB BLOOD ORDERABLES Final Re sult Performing Organization Address [facility] de Phone Number [facility] [address] [place] [address] * (ABNORMAL) Electrolyte panel (09/05/2024 3:00 AM EST) Sodium 128(L) 136 - 145 mEq/L [facility] Potassium 3.8 3.4 - 5.0 mEq/L [facility] Chloride 92(L) 98 - 107 mEq/L [facility] Bicarbonate (CO2) 22 21 - 31 mEq/L [facility] Anion Gap 14 3 - 14 mEq/L [facility] 09/05/2024 3:00 AM EST 09/06/2024 12:16 PM EST Juvenal Cr MD LAB BLOOD ORDERABLES Final Re sult Performing Organization Address [facility] de Phone Number [facility] [address] [place] [address] * (ABNORMAL) Glucose, random (09/05/2024 3:00 AM EST) Glucose 51(L) 74 - 109 mg/dL [facility] 09/05/2024 3:00 AM EST 09/06/2024 12:16 PM EST Juvenal Cr MD LAB BLOOD ORDERABLES Final Re sult Performing Organization Address [facility] de Phone Number [facility] [address] [place] [address] * (ABNORMAL) ALT (09/05/2024 3:00 AM EST) ALT (SGPT) 8(L) 10 - 49 U/L [facility] 09/05/2024 3:00 AM EST 09/06/2024 12:16 PM EST us Juvenal Cr MD LAB BLOOD ORDERABLES Final Re sult Performing Organization Address [facility] Phone Number [facility] [address] [place] [address] * (ABNORMAL) Creatinine, serum (09/05/2024 3:00 AM EST) Creatinine 6.52(H) 0.70 - 1.30 mg/dL [facility] 09/05/2024 3:00 AM EST 09/06/2024 12:16 PM EST Juvenal Cr MD LAB BLOOD ORDERABLES Final Re sult Performing Organization Address [facility] Phone Number [facility] [address] [place] [address] * Bilirubin, total (09/05/2024 3:00 AM EST) Total Bilirubin 0.5 0.3 - 1.2 mg/dL [facility] 09/05/2024 3:00 AM EST 09/06/2024 12:16 PM EST Juvenal Cr MD LAB BLOOD ORDERABLES Final Re sult Performing Organization Address [facility] Phone Number [facility] [address] [place] [address] * AST (09/05/2024 3:00 AM EST) AST (SGOT) 17 <34 U/L [facility] 09/05/2024 3:00 AM EST 09/06/2024 12:16 PM EST us Juvenal Cr MD LAB BLOOD ORDERABLES Final Re sult Performing Organization Address [facility] de Phone Number [facility] [address] [place] [address] * (ABNORMAL) Calcium Phosphorus Product, Adjusted (09/05/2024 3:00 AM EST) Albumin 4.3 3.6 - 5.4 g/dL [facility] Calcium 10.1 8.6 - 10.3 mg/dL [facility] Phosphorus, Serum 7.7(H) 2.5 - 5.0 mg/dL [facility] Ca*PO4 77.8(A) <55.0 mg2/dL2 [facility] Calcium, Adjusted Total 10.1 8.6 - 10.3 mg/dL [facility] CA*PO4 CORRCTD 77.8(A) <55.0 mg2/dL2 [facility] 09/05/2024 3:00 AM EST 09/06/2024 12:16 PM EST Juvenal Cr MD LAB [id number] SOLICITED RESULTS Final Result Performing Organization Address [facility] de Phone Number [facility] [address] [place] [address] * Alkaline phosphatase (09/05/2024 3:00 AM EST) Alkaline Phosphatase 99 46 - 116 U/L [facility] 09/05/2024 3:00 AM EST 09/06/2024 12:16 PM EST Juvenal Cr MD LAB BLOOD ORDERABLES Final Re sult Performing Organization Address [facility] de Phone Number [facility] [address] [place] [address] * (ABNORMAL) Kt/V Natural Log, URR (09/05/2024 3:00 AM EST) Treatment Time 224 min [facility] Pre-Weight, lb [...] 12:16 PM EST Juvenal Cr MD LAB [id number] SOLICITED RESULTS Final Result Performing Organization Address [facility] Co de Phone Number [facility] [address] [place] [address] * (ABNORMAL) CBC and Differential (09/05/2024 3:00 AM EST) DIFFERENTIAL MANUAL, 2 Not Indicated [facility] White [...] MD LAB BLOOD ORDERABLES Final Re sult [facility] [address] [place] [address] * Aluminum level (08/31/2024 3:00 AM EST) Aluminum 5 1 - 20 ug/L [facility] 08/31/2024 3:00 AM EST 09/01/2024 1:40 PM EST Juvenal Cr MD LAB BLOOD ORDERABLES Final Re sult Performing Organization Address [facility] de Phone Number [facility] [address] [place] [address] * Uric Acid (08/31/2024 3:00 AM EST) Uric Acid 5.4 4.4 - 7.6 mg/dL [facility] 08/31/2024 3:00 AM EST 09/01/2024 1:41 PM EST Juvenal Cr MD LAB BLOOD ORDERABLES Final Re sult Performing Organization Address [facility] de Phone Number [facility] [address] [place] [address] * (ABNORMAL) TSAT (08/31/2024 3:00 AM EST) Iron 60(L) 65 - 175 ug/dL [facility] Transferrin 146(L) 215 - 365 mg/dL [facility] TIBC 204(L) 211 - 406 ug/dL [facility] Iron Saturation (TSat) 29 22 - 52 % [facility] 08/31/2024 3:00 AM EST 09/01/2024 1:41 PM EST us Juvenal Cr MD LAB BLOOD ORDERABLES Final Re sult Performing Organization Address [facility] de Phone Number [facility] [address] [place] [address] * Protein, total (08/31/2024 3:00 AM EST) Total Protein 6.4 6.4 - 8.9 g/dL [facility] 08/31/2024 3:00 AM EST 09/01/2024 1:41 PM EST Juvenal Cr MD LAB BLOOD ORDERABLES Final Re sult Performing Organization Address [facility] de Phone Number [facility] [address] [place] [address] * Magnesium (08/31/2024 3:00 AM EST) Magnesium 2.3 1.9 - 2.7 mg/dL [facility] 08/31/2024 3:00 AM EST 09/01/2024 1:41 PM EST Juvenal Cr MD LAB BLOOD ORDERABLES Final Re sult Performing Organization Address [facility] de Phone Number [facility] [address] [place] [address] * (ABNORMAL) Lipid panel (08/31/2024 3:00 AM [...] ORDERABLES Final Re sult Performing Organization Address [facility] de Phone Number [facility] [address] [place] [address] * (ABNORMAL) Electrolyte panel (08/31/2024 3:00 AM EST) Sodium 132(L) 136 - 145 mEq/L [facility] Potassium 4.6 3.4 - 5.0 mEq/L [facility] Chloride 96(L) 98 - 107 mEq/L [facility] Bicarbonate (CO2) 23 21 - 31 mEq/L [facility] Anion Gap 13 3 - 14 mEq/L [facility] 08/31/2024 3:00 AM EST 09/01/2024 1:41 PM EST Juvenal Cr MD LAB BLOOD ORDERABLES Final Re sult Performing Organization Address [facility] de Phone Number [facility] [address] [place] [address] * LIH (08/31/2024 3:00 AM EST) Lipemia Normal Normal [facility] Icterus Normal Normal [facility] Hemolysis Normal Normal [facility] 08/31/2024 3:00 AM EST 09/01/2024 1:41 PM EST Juvenal Cr MD LAB [id number] SOLICITED RESULTS Final Result Performing Organization Address [facility] de Phone Number [facility] [address] [place] [address] * (ABNORMAL) Creatinine, serum (08/31/2024 3:00 AM EST) Creatinine 7.57(H) 0.70 - 1.30 mg/dL [facility] 08/31/2024 3:00 AM EST 09/01/2024 1:41 PM EST Juvenal Cr MD LAB BLOOD ORDERABLES Final Re sult Performing Organization Address [facility] de Phone Number [facility] [address] [place] [address] * Lactate dehydrogenase (08/31/2024 3:00 AM EST) Pathologist [facility] LDH 221 120 - 246 U/L [facility] 08/31/2024 3:00 AM EST 09/01/2024 1:41 PM EST Juvenal Cr MD LAB BLOOD ORDERABLES Final Re sult Performing Organization Address [facility] de Phone Number [facility] [address] [place] [address] * Glucose, random (08/31/2024 3:00 AM EST) Pathologist [facility] Glucose 83 74 - 109 mg/dL [facility] 08/31/2024 3:00 AM EST 09/01/2024 1:41 PM EST Juvenal Cr MD LAB BLOOD ORDERABLES Final Re sult Performing Organization Address [facility] de Phone Number [facility] [address] [place] [address] * AST (08/31/2024 3:00 AM EST) AST (SGOT) 17 <34 U/L [facility] 08/31/2024 3:00 AM EST 09/01/2024 1:41 PM EST Juvenal Cr MD LAB BLOOD ORDERABLES Final Re sult Performing Organization Address [facility] Co de Phone Number [facility] [address] [place] [address] * Bilirubin, total (08/31/2024 3:00 AM EST) Total Bilirubin 0.5 0.3 - 1.2 mg/dL [facility] 08/31/2024 3:00 AM EST 09/01/2024 1:41 PM EST Juvenal Cr MD LAB BLOOD ORDERABLES Final Re sult Performing Organization Address [facility] de Phone Number [facility] [address] [place] [address] * ALT (08/31/2024 3:00 AM EST) ALT (SGPT) 14 10 - 49 U/L [facility] 08/31/2024 3:00 AM EST 09/01/2024 1:41 PM EST Juvenal Cr MD LAB BLOOD ORDERABLES Final Re sult Performing Organization Address [facility] de Phone Number [facility] [address] [place] [address] * Alkaline phosphatase (08/31/2024 3:00 AM EST) Alkaline Phosphatase 71 46 - 116 U/L [facility] 08/31/2024 3:00 AM EST 09/01/2024 1:41 PM EST Juvenal Cr MD LAB BLOOD ORDERABLES Final Re sult Performing Organization Address [facility] de Phone Number [facility] [address] [place] [address] * (ABNORMAL) Calcium Phosphorus Product, Adjusted (08/31/2024 3:00 AM EST) Albumin 4.0 3.6 - 5.4 g/dL [facility] Calcium 9.7 8.6 - 10.3 mg/dL [facility] Phosphorus, Serum 11.4(H) 2.5 - 5.0 mg/dL [facility] Ca*PO4 110.6(A) <55.0 mg2/dL2 [facility] Calcium, Adjusted Total 9.7 8.6 - 10.3 mg/dL [facility] CA*PO4 CORRCTD 110.6(A) <55.0 mg2/dL2 [facility] 08/31/2024 3:00 AM EST 09/01/2024 1:41 PM EST Juvenal Cr MD LAB [id number] SOLICITED RESULTS Final Result Performing Organization Address City/[facility]/ZIP Co de Phone Number [facility] [address] [place] [address] * Confirmation Test HCV (08/31/2024 3:00 AM EST) Hep C Ab Confirmation Not needed [facility] 08/31/2024 3:00 AM EST 09/01/2024 1:35 PM EST Juvenal Cr MD LAB BLOOD ORDERABLES Final Re sult Performing Organization Address City/[facility]/ZIP Co de Phone Number [facility] [address] [place] [address] * HEPATITIS C ABS W/REFLEX RNA DETECTR (08/31/2024 3:00 AM EST) Hep C Virus Ab Non-Reacti ve Non-Reacti ve [facility] 08/31/2024 3:00 AM EST 09/01/2024 1:41 PM EST us Juvenal Cr MD LAB [id number] SOLICITED RESULTS Final Result Performing Organization Address [facility] de Phone Number [facility] [address] [place] [address] * Hepatitis B Surface Ag w/Reflex Confirmation (08/31/2024 3:00 AM EST) Hep B Surface Antigen Negative Negative [facility] 08/31/2024 3:00 AM EST 09/01/2024 1:41 PM EST us Juvenal Cr MD LAB BLOOD ORDERABLES Final Re sult Performing Organization Address [facility] de Phone Number [facility] [address] [place] [address] * (ABNORMAL) Ferritin (08/31/2024 3:00 AM EST) Ferritin 1,120(H) 22 - 322 ng/mL [facility] 08/31/2024 3:00 AM EST 09/01/2024 1:41 PM EST us Juvenal Cr MD LAB BLOOD ORDERABLES Final Re sult Performing Organization Address [facility] Phone Number [facility] [address] [place] [address] * (ABNORMAL) PTH, Intact (08/31/2024 3:00 AM EST) PTH, Intact 120(L) 160 - 721 pg/mL [facility] Comment: Suggested (KDIGO) ESRD maintenance range is two to nine times the upper normal limit (80.1 pg/mL) for the laboratory. 08/31/2024 3:00 AM EST 09/01/2024 1:41 PM EST us Juvenal Cr MD LAB BLOOD ORDERABLES Final Re sult Performing Organization Address [facility] Phone Number [facility] [address] [place] [address] * (ABNORMAL) Kt/V Natural Log, URR (08/31/2024 3:00 AM EST) Treatment Time 192 min [facility] Pre-Weight, lb 63.0 kg [facility] Post-Weight, lb 61.4 kg [facility] Ultrafiltration Rate 8 <=13 mL/kg/hr [facility] Comment: Recommend achieving Ultrafiltration Rate (UFR) <=10 mL/kg/hr References: Gregory LIN et al. Kidney Int. 2010; 79(2):250-257 BUN Post Dialysis 23 7 - 25 mg/dL [facility] BUN 75(H) 7 - 25 mg/dL [facility] UREA REDUCTION RATIO (%) 69 >=65 % [facility] Kt/V Natural Log 1.35 >=1.2 [facility] 08/31/2024 3:00 AM EST 09/01/2024 1:38 PM EST us Juvenal Cr MD LAB [id number] SOLICITED RESULTS Final Result [facility] [address] [place] [address] * (ABNORMAL) CBC and Differential (08/31/2024 3:00 AM EST) DIFFERENTIAL MANUAL, 2 Not Indicated [facility] White Blood Cells 8.4 4.2 - 9.1 K/uL [facility] RBC 2.82(L) 4.63 - 6.08 M/uL [facility] Hgb 7.8(L) 13.7 - 17.5 g/dL [facility] Hemoglobin x 3 23.4(L) 41.1 - 52.5 g/dL [facility] Hematocrit 23.4(L) 40.1 - 51.0 % [facility] MCV 83.0 79.0 - 92.2 fL [facility] MCH 27.7 25.7 - 32.2 pg [facility] MCHC 33.3 32.3 - 36.5 g/dL [facility] Platelets 247 163 - 337 K/uL [facility] RDW 17.7(H) 11.6 - 14.4 % [facility] Neutrophils Relative 75.2(H) 34.0 - 67.9 % [facility] Lymphocytes Relative 13.9(L) 21.8 - 53.1 % [facility] Monocytes 7.4 5.3 - 12.2 % [facility] Eosinophils Relative 2.0 0.8 - 7.0 % [facility] Basophils Relative 1.1 0.2 - 1.2 % [facility] Immature Granulocytes 0.4 0.0 - 1.0 % [facility] 08/31/2024 3:00 AM EST 09/01/2024 1:35 PM EST us Juvenal Cr MD LAB BLOOD ORDERABLES Final Re sult [facility] [address] [place] [address] documented in this encounter Visit Diagnoses Not on filedocumented in this encounter
--- OUTSIDE RECORDS SUMMARY | 2024-09-08 10:04 | XMS_ITS | Clinical Summary ---
Author Organization [employer] Address [address] [facility] [address] [facility] [address] [place] [address] Care Team Providers Care Sign Poster Name Role Phone WernerAndie manning CORINNE Primary Care Provider [phone] Trevor Restrepo MD Unavailable [phone] Juvenal Cr MD Unavailable Kamini Chavarria MD Unavailable Winston Bhagat DPM Unavailable Allergies No known active allergies Medications abiraterone (Zytiga) 250 MG chemo tablet Take 4 tablets by mouth 1 (one) time each day. 12/10/19 23 Active calcium acetate (Phoslo) 667 MG capsule TAKE 2 CAPSULE BY MOUTH WITH LARGEST MEAL OF THE DAY AND 1 CAPSULE BY MOUTH WITH MEAL AND SNACK 07/30/20 22 Active rOPINIRole (Requip) 2 MG tablet Take 1-2 tablets by mouth 1 (one) time each day. 11/15/19 23 Active sevelamer carbonate (Renvela) 800 MG tablet 08/06/19 23 Active Misc. Devices (Pulse Oximeter) miscIndications:SO B (shortness of breath) Use as needed to check oxygen level 1 each 06/20/20 23 Active Blood Pressure Monitor kitIndications:Briana maloney hypertension Check blood pressure twice a weed. Dx hypertension 1 kit 06/20/20 23 Active amLODIPine (Norvasc) 10 MG tablet TAKE 1 TABLET(10 MG) BY MOUTH IN THE MORNING 90 tablet 3 07/26/20 23 Active predniSONE (Deltasone) 5 MG tablet Take 2 tablets by mouth 1 (one) time each day. Takes with abiraterone 09/08/19 23 Active leuprolide, 6-month, (Eligard) 45 MG injection every 6 (six) months. Active denosumab (Prolia) 60 MG/ML solution prefilled syringe Inject 60 mg under the skin every 6 (six) months. Active hydrALAZINE (Apresoline) 50 MG tablet TAKE 1 TABLET(50 MG) BY MOUTH TWICE DAILY 180 tablet 3 12/12/19 24 Active Efinaconazole (Jublia) 10 % solutionIndication s:Onychauxis,Onych omycosis Apply by topical route to affected toe nails daily - may use for up to 48 weeks. Ensure complete coverage of the toenail, toenail folds, toenail bed, surrounding skin, and the undersurface of the toenail plate. 8 mL 3 12/12/19 24 Active bumetanide (Bumex) 2 MG tabletIndications: Heart failure with mildly reduced ejection fraction (HFmrEF) (CMS/HCC) 2 mg 2 times daily. On Non-dialysis Days 11/23/19 24 Active rosuvastatin (Crestor) 5 MG tabletIndications: Other hyperlipidemia Take 1 tablet (5 mg) by mouth at bedtime. (Cholesterol) 90 tablet 3 12/19/19 24 025 Active Ventolin HFA 108 (90 Base) MCG/ACT inhalerIndications :At risk for shortness of breath INHALE 2 PUFFS INTO THE LUNGS EVERY 4 HOURS NEEDED FOR WHEEZING 18 g 11 04/26/20 24 Active Active Problems Problem Noted Date Diagnosed Date Restless legs syndrome 07/29/2024 Overview (07/29/2024): Following with Dr. Chavarria Continues with ropinerole 2-4mg nightly Hyperlipidemia 07/29/2024 Overview (07/29/2024): Continues on rosuvastatin 5mg nightly Continue lifestyle modification Lab Results Component Value Date CHOL 142 07/26/2024 CHOL 219 (H) 12/13/2023 TRIG 54 07/26/2024 TRIG 68 12/13/2023 HDL 49 07/26/2024 HDL 68 12/13/2023 LDLCHOLCAL 83 07/26/2024 LDLCHOLCAL 138 (H) 12/13/2023 Onychomycosis 03/02/2024 Overview (07/29/2024): Following with Podiatry - Dr. Bhagat at [facility] Jun 2024: Debridement of toenails 6-10, with plan to cont topical Jublia. RTC 3 months. Healthcare maintenance 12/12/2023 Overview (12/12/2023): Optometry: CEE 11/10/23 (Dr. Mohr). Noted trace macular edema, follow up in 3 months PSA: hx prostate CA, following with [facility] Heart failure with mildly re duced ejection fraction (HFmrEF) 08/01/2023 Overview (12/12/2023): Jun-Jul 2023 pt experienced new onset symptoms including SOB, THACKER, swelling BLE Echo completed 07/19/23 with LVEF: 45-50% and small pericardial effusion. Pt was started on Bumex and increased fluid removal at dialysis. Minimal improvement of symptoms. CXR completed 07/19/23 with findings c/w pulmonary edema BNP elevated Jul 2023: 2,716 Following with Cards - Dr. Zhang Bumex BID on non-dialysis days Exacerbation w/ Hospitalization 08/04 - 08/07/23 at [facility] ESRD on HD: communication with Dr. Cr and dry weight decreased from 64kg to 60kg Assessment & Plan (12/12/2023 3:37 PM EDT): -Symptoms well controlled, no SOB, THACKER, or BLE edema Assessment & Plan (09/03/2023 1:09 PM EST): -Symptoms have greatly improved since hospitalization, no longer with SOB, THACKER, or BLE edema Assessment & Plan (08/01/2023 4:57 PM EST): ?? Ddx: fluid volume overload secondary to CHF vs ESRD; COPD; viral syndrome, other ?? Echo and CXR from 07/19/23 suggestive of CHF ?? Mild wheezing on exam improved with duoneb, c/w asthma/COPD/resp condition ?? Denies EVARISTO or URI symptoms ?? Advised pt on concern for hypoxemia and recommendations for ED eval following appt if unable to keep O2 sat > 94% on RA. Pt declines AMA. O2 improved following rest and duoneb tx. Encouraged to cont monitoring at home, strict ED precautions ?? PCP called Cardiology office, scheduled for eval with Dr. Zhang on 08/04/23. ?? Labs: BMP, BNP Anemia in chronic kidney disease 02/18/2023 Obstructive uropathy 02/18/2023 Overview (12/12/2023): Following with Dr. Restrepo ([facility]) Hx of bilateral stent placement ESRD (end stage renal disease) 11/05/2021 Assessment & Plan (04/27/2023 2:16 PM EDT): -Hemodialysis MWF at [address] [place] [address] Dialysis (first shift) -Access: Left arm basilic vein transposition performed on 08/03/2021. -Mar 2023: fistulagram performed, [facility] Vascular Dr. Blackburn. Has been working well since Assessment & Plan (12/22/2022 8:12 PM EDT): -Hemodialysis MWF at [address] [place] [address] -Access: Left arm basilic vein transposition performed on 08/03/2021. Have started to access fistula at dialysis -Left AVF w/ +thrill/+bruit Prostate cancer metastatic to bone 11/05/2021 Assessment & Plan (07/29/2024 10:41 PM EST): Flor score ranging from 7 to 9. 10/05/21 cystoscopy with bilateral ureteral stent exchange performed by [facility] Continue to follow with [facility] Urology - Dr. Restrepo Continue to follow with [facility] Heme/Onc Previously on Bicalutamide 50mg PO daily through Urology, currently taking Abiraterone 01/24/23: cystoscopy with bilateral stent exchange November 2023: Bone scan stable, no progression Target 3 years hormone therapy then reduction to intermittent anti-androgen Apr 2024: DXA normal Assessment & Plan (04/27/2023 2:17 PM EDT): ?? Flor score ranging from 7 to 9. ?? 10/05/21 cystoscopy with bilateral ureteral stent exchange performed by [facility] Urology ?? Continue to follow with [facility] Urology - Dr. Restrepo ?? Continue to follow with [facility] Heme/Onc ?? Previously on Bicalutamide 50mg PO daily through Urology, currently taking Abiraterone ?? 01/24/23: cystoscopy with bilateral stent exchange Assessment & Plan (12/22/2022 8:13 PM EDT): ?? [place] score ranging from 7 to 9. ?? 10/05/21 cystoscopy with bilateral ureteral stent exchange performed by [facility] Urology ?? Continue to follow with [facility] Urology - Dr. Restrepo ?? Continue to follow with [facility] Heme/Onc ?? Previously on Bicalutamide 50mg PO daily through Urology, currently taking Abiraterone ?? Plan for stent exchange approx December 2022 Secondary hyperparathyroidism of renal origin Stage 5 chronic kidney disease 04/21/2021 HTN (hypertension) 04/17/2021 Assessment & Plan (07/29/2024 10:49 PM EST): Elevated in office, although pt reports fluctuates on dialysis days. Decent per home readings. Current med regimen: Amlodipine 10mg daily (max dose) Hydralazine 100mg BID (max renal dose 200mg/day) -Lifestyle interventions and ED precautions reviewed Assessment & Plan (12/12/2023 3:41 PM EDT): Mild elevation in office, although pt reports fluctuates on dialysis days. Well controlled per home readings. Current med regimen: Amlodipine 10mg daily Hydralazine 50mg BID (pt lifestyle not compatible with TID dosing) -Lifestyle interventions and ED precautions reviewed Assessment & Plan (09/03/2023 1:20 PM EST): ?? Elevated in office and at HD ?? Denies chest pain, GRANADOS, blurry vision, dizziness, N/V/D Current med regimen: ?? Amlodipine 10mg daily ?? Hydralazine 25mg TID (although pt taking 50mg in the morning and 25mg at bedtime) -Lifestyle interventions and ED precautions reviewed -Plan: PCP to communicate with the office of Dr. Zhang for collaboration regarding dose adjustments. May consider increased dose to 50mg BID. Assessment & Plan (08/01/2023 4:51 PM EST): ?? Elevated in office, well controlled at HD per pt ?? Denies chest pain, GRANADOS, blurry vision, dizziness, N/V/D Continue with current med regimen: ?? Amlodipine 10mg daily ?? Hydralazine 10mg. Currently taking once daily, initially prescribed BID (renal dose adjustment) -Lifestyle interventions and ED precautions reviewed -BP monitor sent to the pharmacy to record home readings Assessment & Plan (06/26/2023 8:18 PM EST): ?? Elevated in office, well controlled at HD per pt ?? Denies chest pain, GRANADOS, blurry vision, dizziness, N/V/D Continue with current med regimen: ?? Amlodipine 10mg daily ?? Hydralazine 10mg. Currently taking once daily, initially prescribed BID (renal dose adjustment) -Lifestyle interventions and ED precautions reviewed -BP monitor sent to the pharmacy to record home readings Assessment & Plan (04/27/2023 2:14 PM EDT): ?? Elevated in office, well controlled at HD per pt ?? Denies chest pain, GRANADOS, blurry vision, SOB, dizziness, N/V/D Continue with current med regimen: ?? Amlodipine 10mg daily ?? Hydralazine 10mg. Currently taking once daily, initially prescribed BID (renal dose adjustment) Plan: monitor afternoon/evening blood pressure over the next 2 weeks. If readings elevated, plan to restart BID dosing. -Lifestyle interventions and ED precautions reviewed Assessment & Plan (12/22/2022 8:11 PM EDT): ?? Well controlled in office ?? Denies chest pain, GRANADOS, blurry vision, SOB, dizziness, N/V/D Continue with current med regimen: ?? Amlodipine 10mg daily ?? Hydralazine 10mg BID (renal dose adjustment) -Plan to monitor BP at home for the next 2 weeks on non-dialysis days. Call office with 2+ readings > 140/90 mmHg -Lifestyle interventions and ED precautions reviewed Resolved Problems Problem Noted Date Diagnosed Date Resolved Date Acidosis 02/18/2023 08/01/2023 Bilateral hydronephrosis 02/18/202308/2023 Staphylococcus aureus bacteremia 02/18/2023 08/01/2023 Urinary retention 02/18/2023 08/01/2023 Prostate cancer 04/21/2021 08/01/2023 Hypokalemia 04/21/2021 08/01/2023 Hypocalcemia 04/21/2021 08/01/2023 Acute pyelonephritis 04/17/2021 023 Encounters Date Type Department Care Team Description 07/31/2024 Telephone [employer] [address] [place] [address] [phone] Andie Whitmore FNP 07/16/2024 1:00 PM EST Office Visit [facility] [address] [place], [place] [phone] Andie Whitmore FNP Primary hypertension (Primary Dx); Hyperlipidemia, unspecified hyperlipidemia type; Restless legs syndrome; Epidermal inclusion cyst; Impacted cerumen of left ear; Prostate cancer metastatic to bone (CMS/HCC); Onychomycosis; Skin abrasion 07/16/2024 Travel 07/12/2024 Telephone [facility] [address] [place] [address] Yakelin Healy MA Chart Prep from Last 3 Months Immunizations Name Administration Dates Next Due Influenza injectable quadriv alent preservative free 04/22/2021,05/11/2020 Influenza, injectable, quadr ivalent, preservative free, pediatric 07/24/2019 Pfizer Covid-19 Vaccine 12+ 12/20/2021,1 08/17/2020,06/07/2021,2020,12/19/2020,12/01/2020 Tdap 12/17/2014 Social History Tobacco Use Types Packs/Day Years [...] Orientation Straight 05/31/2022 10 :39 AM EDT Last Filed Vital Signs Vital Sign Reading Time Taken Comments Blood Pressure 169/50 07/16/2024 1:14 PM EST Pulse 74 07/16/2024 1:14 PM EST Temperature 36.1 ??C (97 ??F) 07/16/2024 1:14 PM EST Respiratory Rate 20 07/16/2024 1:14 PM EST Oxygen Saturation 93% 07/16/2024 1:14 PM EST Inhaled Oxygen Concentration - - Weight 62.1 kg (137 lb) 07/16/2024 1:14 PM EST Height 160 cm (5' 3 ) 07/16/2024 1:14 PM EST Body Mass Index 24.27 07/16/2024 1:14 PM EST Plan of Treatment Health Maintenance Due Date Last Done Comments CT Colonography 1961 Colonoscopy 1961 Colorectal Cancer Screening 1961 FIT DNA/Cologuard 1961 FIT 1961 FOBT 1961 HIV Screening 1960 Sigmoidoscopy 1961 Alcohol/Substance Use Screening 1973 Hepatitis C Screening 1979 Pneumococcal Vaccine: 50+ Years (1 of 2 - PCV) 02/29/1980 Zoster Vaccines (1 of 2) 2011 RSV Patients and Patients Aged 60 years or older (1 - Risk 60-74 years 1-dose series) 2021 Depression Screening 12/23/2023 12/22/2022, 12/23/19 SDOH Screening 12/23/2023 12/22/2022 COVID-19 Vaccine ( season) 2024 12/20/2021, 06/17/2021, 06/07/2021, Additional history exists Influenza Vaccine (#1) 2024 , 05/11/2020, 07/24/2019 DTaP/Tdap/Td Vaccines (2 - Td or Tdap) 12/17/2024 12/17/2014 Tobacco Screening 02/27/2025 2024 Lipid Panel 07/26/2029 07/26/2024, 12/13/2023 HIB Vaccines Aged Out No longer eligi ble based on patient's age to complete this topic HPV Vaccines Aged Out No longer eligi ble based on patient's age to complete this topic Hepatitis A Vaccines Aged Out No long er eligible based on patient's age to complete this topic Hepatitis B Vaccines Aged Out No long er eligible based on patient's age to complete this topic IPV Vaccines Aged Out No longer eligi ble based on patient's age to complete this topic Meningococcal Vaccine Aged Out No sebas carey eligible based on patient's age to complete this topic RSV under 20 months Aged Out No longe r eligible based on patient's age to complete this topic Rotavirus Vaccines Aged Out No longer eligible based on patient's age to complete this topic Procedures Procedure Name Priority Date/Time Associated Diagnosis Comments LIPID PANEL, STANDARD Routine 07/26/2024 11:25 AM EST Hyperlipidemia, unspecified hyperlipidemia type WOUND CARE Routine 07/16/2024 2:09 PM EST Skin abrasion NE REMOVAL IMPACTED CERUMEN IRRIGATION/LVG UNILAT Routine 07/16/2024 2:05 PM EST Impacted cerumen of left ear from Last 3 Months Results * Lipid Panel, Standard (07/26/2024 11:25 AM EST) Triglycerides 54 <150 mg/dL [facility] Comment:Desirable Triglyceri de: less than 150 mg/dLBorderline High Triglyceride 150-199 mg/dLHigh Triglyceride: 200-499 mg/dLVery High Triglyceride: greater than or equal to 5OO mg/dL Cholesterol 142 <200 mg/dL [facility] Comment:Desirable Cholestero l: less than 200 mg/dLBorderline High Cholesterol: 200-239 mg/dLHigh Cholesterol: greater than 239 mg/dL LDL Cholesterol Calculated 83 <100 mg/dL [facility] Comment:Desirable LDL: less than 100 mg/dLNear Optimal/Above Optimal LDL: 110- 129 mg/dLBorderline High LDL: 130-159 mg/dLHigh LDL: 160-189 mg/dLVery High LDL: greater than or equal to 190 mg/dL HDL Cholesterol 49 >40 mg/dL [facility] Comment:Desirable HDL: great er than 40 mg/dL Note: This HDL assay may give artificially low results in patients with liver disease. Blood Venous blood specimen / Unknown 07/26/2024 11:25 AM EST 07/26/2024 1:05 PM EST us Andie Whitmore DEPUTY EDITOR IN CHIEF LAB BLOOD ORDERABLES Final Res ult [facility] [address] [place] [address] [phone] * Wound Care (07/16/2024 2:09 PM EST) Narrative Misael May RN - 07/16/2024 2:09 PM EST Misael May RN ? 07/29/2024 11:01 PM Wound Care Date/Time: 07/16/2024 2:09 PM Performed by: Misael May RN Authorized by: CORINNE Echevarria ?? Consent: ??Consent obtained: ??Verbal ??Consent given by: ??Patient Procedure details: ??Wound location: ??Arm ??Shoulder/arm location: ??L lower arm Post-procedure details: ??Procedure completion: ??Tolerated Comments: ?? RN applied bacitracin, and covered with gauze and bandage as ordered by PCP. us Andie Myranda DEPUTY EDITOR IN CHIEF IN CLINIC/BEDSIDE ORDERABLES F inal Result * NE REMOVAL IMPACTED CERUMEN IRRIGATION/LVG UNILAT (07/16/2024 2:05 PM EST) Misael Palacios RN - 07/16/2024 2:05 PM EST Misael May RN ? 07/29/2024 11:01 PM Ear Cerumen Removal Date/Time: 07/16/2024 2:05 PM Performed by: Misael May RN Authorized by: CORINNE Echevarria ?? Consent: ??Consent obtained: ??Verbal ??Consent given by: ??Patient ??Risks discussed: ??Pain and dizziness ??Alternatives discussed: ??Observation Procedure details: ??Location: ??L ear ??Procedure type: irrigation ?Procedure type comment: ??Also used curette ??Procedure outcomes: cerumen removed ?? Post-procedure details: ??Inspection: ??Ear canal clear ??Procedure completion: ??Tolerated Comments: ?? Pt report hearing 100 % better us Andie Myranda DEPUTY EDITOR IN CHIEF IN CLINIC/BEDSIDE ORDERABLES F inal Result from Last 3 Months Insurance MEDICARE [facility] STANDARD Care Teams Sign Poster Relationship Specialty Start Date End Date Andie Whitmore FNP [address] [place] [address] PCP - General Family Medicine 11/04/21 Trevor Restrepo MD [address] [place] [address] Urology 07/29/24 Juvenal Cr MD [address] [facility] [address] [place] [phone] Nephrology 07/29/24 Kamini Chavarria MD NPI: [id number] [place] [address] [place] [address] Neurology 07/29/24 Winston Bhagat DPM [address] [facility] [address] [place] [id number] Podiatry 07/29/24
--- OUTSIDE RECORDS SUMMARY | 2024-09-08 10:04 | XMS_ITS ---
Author Name Wilykenan Reji Address [address] [place] [id number] Phone [phone] Organization [facility] e, NA DOCUMENT DISCLAIMER Multiple document versions may exist, please be sure you review the latest version. The information in the [facility] Progress Note Document represents a providers documented clinical note containing certain health and medical information. It may not contain the complete medical history for the patient and should be independently verified. The represented time in the document is Eastern Time PROVIDER ROUNDING NOTE BASIC Patient:?Darwin?Maribeth,?1960,?64y,?M Dialysis?Location:?[facility]?SHIR[facility]?-?JV Attending?Purchasing Supervisor:?Reji?Vita Service?Date:?08/21/2024 Service?Provider:?Reji?Vita,? I?saw?the?patient?remotely?today?for?a?telehealth?visit ?using?audiovisual?technology. OVERVIEW The?patient?presented?with?[facility]?on?dialysis Primary?cause?of?renal?failure:?Hypertensive?chronic?kidney? disease?with?stage?1?through?stage?4?chronic?kidney?dis ease,?or?unspecified?chronic?kidney?disease Comments:?[place]iting[place]from[place]patient?of?Alessia Cr?.?Denies?any?complaints? Medications?and?labs?reviewed. HOME?MEDICATIONS Home?Medications:? ??amlodipine?10?mg,?by?mouth,?Take?1?tablet?once a?day ??hydralazine?50?mg,?by?mouth,?Take?1?tablet?twice?a?day ??rosuvastatin?5?mg,?by?mouth,?Take?1?tablet?once a?day ??ropinirole?2?mg,?by?mouth,?Take?2?tablet?once a?day?2-3?daily ??calcium?acetate(phosphat?bind)?667?mg,?by?mouth,?Take ?2?capsule?three?times?a?day ??Tylenol?(acetaminophen)?325?mg,?by?mouth,?Take?2&#160 ;tablet?every?six?hours?as?needed?for?pain Allergies:? ??No?Known?Allergies DIALYSIS?PRESCRIPTION ??IHD?3x?Week?Start?date:?08/07/24 ??Dialyzer:?160NRe?Optiflux ??BFR:?400 ??DFR:?Manual?500 ??Potassium:?2.0 ??Sodium:?138 ??EDW:?62 ??Duration:?3:45 ??Calcium:?2.5 ??Bicarb:?38 ??Rx?updated?on:?08/07/2024 Comments:?Cont?current?HD?prescription TREATMENT?ASSESSMENT BP?Stand?Pre ??08/18/2024:?156/87 ??08/16/2024:?186/91 ??08/14/2024:?176/96 BP?Sit?Pre ??08/18/2024:?167/84 ??08/16/2024:?193/99 ??08/14/2024:?184/98 BP?Stand?Post ??08/18/2024:?139/71 ??08/16/2024:?155/85 ??08/14/2024:?140/81 BP?Sit?Post ??08/18/2024:?127/63 ??08/16/2024:?138/72 ??08/14/2024:?128/83 Tx?Duration ??08/18/2024:?3:45 ??08/16/2024:?3:47 ??08/14/2024:?3:45 Missed?Treatments 0?-?last?30?days 0?-?last?60?days FLUID?ASSESSMENT EDW?(kg) ??08/18/2024:?62.0 ??08/16/2024:?62.0 ??08/14/2024:?62.0 Weight?Pre?(kg) ??08/18/2024:?65.0 ??08/16/2024:?65.9 ??08/14/2024:?66.6 Weight?Post?(kg) ??08/18/2024:?61.6 ??08/16/2024:?63.2 ??08/14/2024:?63.0 PWV?(kg) ??08/18/2024:?-0.4 ??08/16/2024:?1.2 ??08/14/2024:?1.0 UF?Rate?(mL/kg/hr) ??08/18/2024:?14.7 ??08/16/2024:?11.3 ??08/14/2024:?15.2 ACCESS?ASSESSMENT ??Access?Type:?AVFistula ??Access?SubType:?Standard ??Access?Status:?Active?(In?Use)?-?08/12/2023 ??Access?Location:?Left?Upper?Arm ??Created:?08/03/2021 ANEMIA?ASSESSMENT Comments:?Check?Hb BMM?ASSESSMENT Comments:?Check?Ca?,?PO-4?and?PTH?level? Vitamin?D?(Calcitriol)?Oral?(mcg) ??08/18/2024:?1.0 ??08/16/2024:?1.0 ??08/14/2024:?1.0 NUTRITION?ASSESSMENT Comments:?Check?Albumin?and?K?level PHYSICAL?EXAM Exam?Performed.?Vital?Signs?Reviewed.?CV?-?Blood?pressure noted. DIAGNOSIS Chief?Complaint:?N18.6?End?stage?renal?disease Patient?data?updated?08/21/2024?at?7:33?AM Signed?By:?Vita,?Reji,???on?08/21/2024?7:33:32 AM END OF DOCUMENT
--- OUTSIDE RECORDS SUMMARY | 2024-09-08 10:04 | XMS_ITS ---
Author Name Hung, Kileann Address [address] [place] [address] Phone [phone] Organization [facility] e, NA DOCUMENT DISCLAIMER Multiple document versions may exist, please be sure you review the latest version. The information in the [facility] Progress Note Document represents a providers documented clinical note containing certain health and medical information. It may not contain the complete medical history for the patient and should be independently verified. The represented time in the document is Eastern Time PROVIDER ROUNDING NOTE BASIC Patient:?Darwin?Maribeth,?1960,?64y,?M Dialysis?Location:?[facility]?[place]?-?JV Attending?Dental Assisting Instructor:?Reji?Vita Service?Date:?08/16/2024 Service?Provider:?Marsha?Hung,? I?met?face?to?face?with?the?patient?today. OVERVIEW The?patient?presented?with?ESRD?on?dialysis Primary?cause?of?renal?failure:?Hypertensive?chronic?kidney? disease?with?stage?1?through?stage?4?chronic?kidney?dis ease,?or?unspecified?chronic?kidney?disease Comments:?Visiting[place]from[place]patient?of?? [facility]?.?Denies?any?complaints DIALYSIS?PRESCRIPTION ??IHD?3x?Week?Start?date:?08/07/24 ??Dialyzer:?160NRe?Optiflux ??BFR:?400 ??DFR:?Manual?500 ??Potassium:?2.0 ??Sodium:?138 ??EDW:?62 ??Duration:?3:45 ??Calcium:?2.5 ??Bicarb:?38 ??Rx?updated?on:?08/07/2024 Comments:?Cont?current?HD?prescription TREATMENT?ASSESSMENT Blood?pressure?controlled.? BP?Stand?Pre ??08/14/2024:?176/96 ??08/11/2024:?163/100 ??08/09/2024:?183/82 BP?Sit?Pre ??08/14/2024:?184/98 ??08/11/2024:?160/89 ??08/09/2024:?164/98 BP?Stand?Post ??08/14/2024:?140/81 ??08/11/2024:?118/57 ??08/09/2024:?152/77 BP?Sit?Post ??08/14/2024:?128/83 ??08/11/2024:?130/61 ??08/09/2024:?135/100 Tx?Duration ??08/14/2024:?3:45 ??08/11/2024:?3:45 ??08/09/2024:?3:45 Missed?Treatments 0?-?last?30?days 0?-?last?60?days FLUID?ASSESSMENT Fluid?status?acceptable.? EDW?(kg) ??08/14/2024:?62.0 ??08/11/2024:?62.0 ??08/09/2024:?62.0 Weight?Pre?(kg) ??08/14/2024:?66.6 ??08/11/2024:?65.9 ??08/09/2024:?65.5 Weight?Post?(kg) ??08/14/2024:?63.0 ??08/11/2024:?62.5 ??08/09/2024:?62.5 PWV?(kg) ??08/14/2024:?1.0 ??08/11/2024:?0.5 ??08/09/2024:?0.5 UF?Rate?(mL/kg/hr) ??08/14/2024:?15.2 ??08/11/2024:?14.5 ??08/09/2024:?12.8 ACCESS?ASSESSMENT ??Access?Type:?AVFistula ??Access?SubType:?Standard ??Access?Status:?Active?(In?Use)?-?08/12/2023 ??Access?Location:?Left?Upper?Arm ??Created:?08/03/2021 Vascular?access?reviewed. ANEMIA?ASSESSMENT Comments:?Check?Hb BMM?ASSESSMENT Comments:?Check?Ca?,?PO-4?and?PTH?level? Vitamin?D?(Calcitriol)?Oral?(mcg) ??08/14/2024:?1.0 ??08/11/2024:?1.0 ??08/09/2024:?1.0 NUTRITION?ASSESSMENT Comments:?Check?Albumin?and?K?level PHYSICAL?EXAM Exam?Performed.?Vital?Signs?Reviewed.?EXT?-?No?edema. DIAGNOSIS Chief?Complaint:?N18.6?End?stage?renal?disease Patient?data?updated?08/16/2024?at?8:08?AM Signed?By:?Hung,?Marsha???on?08/16/2024?8:09:06?AM END OF DOCUMENT
--- OUTSIDE RECORDS SUMMARY | 2024-09-08 10:04 | XMS_ITS | Encounter Summary ---
Author Organization [facility] Address [address] [address] Phone Care Team Providers Care Syrup Mixer Assistant Name Role Phone Unavailable Primary Care Provider Unavailabl e Encounter Details Date Type Department Care Team ([facility] st Contact Info) Description 08/03/2024 Treatment [facility]. [address] [address] Clinton Ortega MD [address] [address] Social History Tobacco Use Types Packs/Day Years Used Date Smoking Tobacco: Former Comments:Smoking History Inf o:Every day Sex and Gender Information Value Date Recorded Sex Assigned at Not on file Legal Sex Male 4:53 PM EST Gender Identity Not on file Sexual Orientation Not on file documented as of this encounter Miscellaneous Notes * Dialysis Note - Clinton Ortega MD - 08/03/2024 12:00 AM EST Patient: Darwin Stahl : 1960 Note Type: Dialysis Rounds-Comp Service Date: 08/03/2024 This patient was personally seen for a complete visit as part of routine monthly dialysis care for end stage renal disease. Attending Communications Planner: CLINTON ORTEGA Dialysis Location: [facility] Schedule: Shift: 1 ADEQUACY ASSESSMENT Kt/V, Natural Log 1.76 (07/04/24) 1.84 (06/06/24) UREA REDUCTION RATIO (%) 76 (07/04/24) 78 (06/06/24) BUN 63 (07/04/24) 74 (06/06/24) BUN Post Dialysis 15 (07/04/24) 16 (06/06/24) Creatinine 6.64 (07/04/24) 6.49 (06/06/24) Bicarbonate (CO2) 22 (07/04/24) 26 (06/06/24) Sodium 130 (07/04/24) 135 (06/06/24) ANEMIA ASSESSMENT Hgb 9.3 (07/27/24) 11.2 (07/18/24) 11.0 (07/11/24) Iron Saturation (TSat) 13 (07/04/24) 38 (06/06/24) Ferritin 579 (07/04/24) 671 (06/06/24) Iron 25 (07/04/24) 81 (06/06/24) TIBC 196 (07/04/24) 211 (06/06/24) MCV 86.4 (07/04/24) 90.2 (06/06/24) Platelets 223 (07/04/24) 249 (06/06/24) BMM ASSESSMENT Calcium, Adjusted Total 8.7 07/13/24 8.2 07/04/24 8.0 06/22/24 Calcium 8.7 07/13/24 8.2 07/04/24 8.0 06/22/24 Phosphorus, Serum 5.6 07/13/24 11.2 07/04/24 11.6 06/22/24 Ca*PO4 48.7 07/13/24 91.8 07/04/24 92.8 06/22/24 PTH, Intact 536 07/04/24 154 06/06/24 Magnesium 2.3 07/04/24 2.4 06/06/24 Alkaline Phosphatase 58 07/04/24 71 06/06/24 NUTRITION ASSESSMENT Albumin 4.1 07/13/24 4.4 07/04/24 4.2 06/22/24 Potassium 5.6 07/04/24 5.4 06/06/24 ADDITIONAL LABS White Blood Cells 10.1 (07/04/24) 9.7 (06/06/24) Hep B Surface Antibody <4 (07/20/24) <4 (07/04/24) ADDITIONAL COMMENT COMMENTS: 07/16/24 stable 07/31/24 no new issues 08/03/24 doing ok 04/04/24 stable 04/16/24 stable 04/25/24 no new issues 05/07/24 stable 05/14/24 incr bp, refuses bp meds 05/21/24 stable 06/04/24 no new issues 06/1524 c/o restless legs despite on requip 06/20/24 same issues-- has appt w neuro 06/26/24 stable 07/02/24 doing ok 07/09/24 stable Signed by: CLINTON ORTEGA MD on 08/13/2024 at 10:34:14 PM Transcribed by: CLINTON ORTEGA MD on 08/13/2024 at 10:34:14 PM documented in this encounter Plan of Treatment Not on file documented as of this encounter Visit Diagnoses Not on filedocumented in this encounter
--- OUTSIDE RECORDS SUMMARY | 2024-09-08 10:05 | XMS_ITS | Encounter Summary ---
Author Organization [employer] Address [address] [facility] [address] [place] [address] Care Team Providers Care Building Serviceman Name Role Phone Andie Whitmore Primary Care Provider [phone] Trevor Restrepo MD Unavailable [phone] Juvenal Cr MD Unavailable [phone] Kamini Chavarria MD Unavailable Winston Bhagat DPM Unavailable Reason for Visit * Reason Onset Date Comments Medication Question 02/29/2024 Encounter Details Date Type Department Care Team (Late st Contact Info) Description 02/29/2024 Telephone [facility] [address] [place] [address] Andie Whitmore FNP [address] [place] [address] Medication Question Social History Tobacco Use Types Packs/Day Years [...] encounter Miscellaneous Notes * Telephone Encounter - Wing Radha RN - 03/02/2024 12:41 PM EDT Tc to pt to relay that ear drops were sent. Unable to reach pt, left message for pt to call back. * Telephone Encounter - Jenny Ferrer MD - 03/02/2024 11:33 AM EDT sent * Telephone Encounter - Wing Radha RN - 03/01/2024 9:15 AM EDT Please advise, was the pt prescribed ear drops during the visit on 02/27? No mention of it being prescribed in notes. * Telephone Encounter - Benny Ross - 02/29/2024 2:32 PM EDT Tc from patient calling to request the status of Ear drops that was discussed in sick appt on 02/27 securities underwriter does not see ant medication pending documented in this encounter Plan of Treatment Not on file documented as of this encounter Visit Diagnoses Not on filedocumented in this encounter Additional Health Concerns Assessment Noted Time PHQ-9 Depression Total Score: 1 12/23/19 23 3:02 PM EDT documented as of this encounter Care Teams Building Serviceman Relationship Specialty Start Date End Date Andie Whitmore FNP [address] [place] [address] PCP - General Family Medicine 11/04/21 Trevor Restrepo MD [address] [place] [address] Urology 07/29/24 Juvenal Cr MD [address] [facility] [address] [place] [address] Nephrology 07/29/24 Kamini Chavarria MD [address] [facility] [address] [place] [address] Neurology 07/29/24 Winston Bhagat DPM [address] [place] [address] Podiatry 07/29/24 documented as of this encounter
--- OUTSIDE RECORDS SUMMARY | 2024-09-08 10:05 | XMS_ITS ---
Author Name Jordanrenzoalbinadevin Arsen hernandez Address [address] [place] [address] Phone [phone] Organization [facility] e, NA DOCUMENT DISCLAIMER Multiple document versions may exist, please be sure you review the latest version. The information in the [facility] Progress Note Document represents a providers documented clinical note containing certain health and medical information. It may not contain the complete medical history for the patient and should be independently verified. The represented time in the document is Eastern Time PROVIDER ROUNDING NOTE COMPREHENSIVE Patient:Bijal?Maribeth,?1960,?64y,?M Dialysis?Location:?[facility]?[place]?-?FrankV Attending?Net Mobile Developer:?Reji?[employer] Service?Date:?08/11/2024 Service?Provider:?Rae?Yandel,? I?met?face?to?face?with?the?patient?today. OVERVIEW The?patient?presented?with?ESRD?on?dialysis Primary?cause?of?renal?failure:?Hypertensive?chronic?kidney? disease?with?stage?1?through?stage?4?chronic?kidney?dis ease,?or?unspecified?chronic?kidney?disease Comments:?Visiting?from?[place]?a?patient?of?? [facility]?.?Denies?any?complaints? Medications?and?labs?reviewed. HOME?MEDICATIONS Home?Medications:? ??amlodipine?10?mg,?by?mouth,?Take?1?tablet?once a?day ??hydralazine?50?mg,?by?mouth,?Take?1?tablet?twice?a?day ??rosuvastatin?5?mg,?by?mouth,?Take?1?tablet?once a?day ??ropinirole?2?mg,?by?mouth,?Take?2?tablet?once a?day?2-3?daily ??calcium?acetate(phosphat?bind)?667?mg,?by?mouth,?Take ?2?capsule?three?times?a?day ??Tylenol?(acetaminophen)?325?mg,?by?mouth,?Take?2&#160 ;tablet?every?six?hours?as?needed?for?pain Allergies:? ??No?Known?Allergies DIALYSIS?PRESCRIPTION ??IHD?3x?Week?Start?date:?08/07/24 ??Dialyzer:?160NRe?Optiflux ??BFR:?400 ??DFR:?Manual?500 ??Potassium:?2.0 ??Sodium:?138 ??EDW:?62 ??Duration:?3:45 ??Calcium:?2.5 ??Bicarb:?38 ??Rx?updated?on:?08/07/2024 Comments:?Cont?current?HD?prescription TREATMENT?ASSESSMENT Comments:?No?issues?during?HD?.?BP?high?normal?post&#16 0;HD?.?Needs?to?monitor?home?BP?.? Blood?pressure?controlled.?No?changes?indicated.? BP?Stand?Pre ??08/11/2024:?163/100 ??08/09/2024:?183/82 BP?Sit?Pre ??08/11/2024:?160/89 ??08/09/2024:?164/98 ??08/07/2024:?185/70 BP?Stand?Post ??08/11/2024:?118/57 ??08/09/2024:?152/77 ??08/07/2024:?108/61 BP?Sit?Post ??08/11/2024:?130/61 ??08/09/2024:?135/100 ??08/07/2024:?121/50 Tx?Duration ??08/11/2024:?3:45 ??08/09/2024:?3:45 ??08/07/2024:?3:44 Missed?Treatments 0?-?last?30?days 0?-?last?60?days FLUID?ASSESSMENT Fluid?status?acceptable.?Interdialytic?weight?gain?acceptable.?No ?changes?indicated.? EDW?(kg) ??08/11/2024:?62.0 ??08/09/2024:?62.0 ??08/07/2024:?62.0 Weight?Pre?(kg) ??08/11/2024:?65.9 ??08/09/2024:?65.5 ??08/07/2024:?64.7 Weight?Post?(kg) ??08/11/2024:?62.5 ??08/09/2024:?62.5 ??08/07/2024:?62.7 PWV?(kg) ??08/11/2024:?0.5 ??08/09/2024:?0.5 ??08/07/2024:?0.7 UF?Rate?(mL/kg/hr) ??08/11/2024:?14.5 ??08/09/2024:?12.8 ??08/07/2024:?8.5 ADEQUACY?ASSESSMENT Adequacy?target?met.?Prescription?compliance?acceptable.?No?changes?indicated. ACCESS?ASSESSMENT ??Access?Type:?AVFistula ??Access?SubType:?Standard ??Access?Status:?Active?(In?Use)?-?08/12/2023 ??Access?Location:?Left?Upper?Arm ??Created:?08/03/2021 Vascular?access?reviewed.?Current?access?is?permanent?and?functioning?well. ANEMIA?ASSESSMENT Comments:?Check?Hb BMM?ASSESSMENT Comments:?Check?Ca?,?PO-4?and?PTH?level? Vitamin?D?(Calcitriol)?Oral?(mcg) ??08/11/2024:?1.0 ??08/09/2024:?1.0 ??08/07/2024:?1.0 NUTRITION?ASSESSMENT Comments:?Check?Albumin?and?K?level PHYSICAL?EXAM Exam?Performed.?Vital?Signs?Reviewed.?Lungs?-?Clear.?CV&#160 ;-?Blood?pressure?noted.?CV?-?RRR.?EXT?-?No?edema.?EXT?-?No?ulcers. DIAGNOSIS Chief?Complaint:?N18.6?End?stage?renal?disease Patient?is?stable. Patient?data?updated?08/13/2024?at?7:49?PM Signed?By:?Yandel,?Rae???on?08/13/2024?7:52:01?PM END OF DOCUMENT
--- OUTSIDE RECORDS SUMMARY | 2024-09-08 10:05 | XMS_ITS ---
Author Name [facility] Address [address] [place] [address] Phone [phone] Organization [facility] e, NA DOCUMENT DISCLAIMER Multiple document versions may exist, please be sure you review the latest version. The information in the [facility] Continuity of Care Document represents a summary of certain health and medical information. It may not contain the complete medical history for the patient and should be independently verified. The represented time in the document is Eastern Time. PROBLEMS No Known Problems ALLERGIES AND ADVERSE REACTIONS No Known Allergies SOCIAL HISTORY Tobacco Use Status Tobacco Type Unknown if ever consumed tobacco - Caregiver Characteristics No Information Available Characteristics of Home environment No Information Available Gender and Sex Information Gender Identity Sexual Orientation No Information Available No Information Available MEDICATIONS Prescribed Medications for Dialysis Treatments Medication Instructions Dosage Route Start Date End Date Stat us Heparin Sodium (Porcine) 1,000 Units/mL Systemic Infusion (Pump), Every Treatment, Total treatment minutes 225, Turn heparin pump off 60 minutes prior to end of treatment 500 units/marvin r Intravenous - push August 07, 2024 August 06, 2025 Discontinued Heparin Sodium (Porcine) 1,000 Units/mL Systemic Bolus, Every Treatment, Total treatment minutes 225 2000 units Intravenous - push August 07, 2024 August 06, 2025 Discontinued Vitamin D (Calcitriol) Oral Every Treatment 1.0 mcg Oral August 07, 2024 August 06, 2025 Discontinued Home Medications Medication Instructions Dosage Route Start Date End Date Stat us amlodipine 10 mg Take by mouth once a day 1 tablet ORAL August 09, 2024 Active calcium acetate(phosphat bind) 667 mg Take by mouth three times a day 2 capsule ORAL August 09, 2024 Active hydralazine 50 mg Take by mouth twice a day 1 tablet ORAL August 09, 2024 Active ropinirole 2 mg Take by mouth once a day 2 tablet ORAL August 09, 2024 Active rosuvastatin 5 mg Take by mouth once a day 1 tablet ORAL August 09, 2024 Active Tylenol 325 mg Take by mouth every six hours as needed for pain 2 tablet ORAL August 07, 2024 Active VITAL SIGNS Post-Treatment Vital Signs Vital Sign Value Date / Time Blood Pressure-sitting 118/62 mmHg August 022024 05:18 AM Blood Pressure-standing 101/53 mmHg August 28, 2024 05:18 AM Heart Rate 70 beats per minute August 28, 2024 05:18 AM Respiratory Rate 18 breaths per minute August 022024 05:18 AM Temperature 97.7 deg. F August 28, 2024 05:18 AM Weight Vital Sign Value Date / Time Pre-Dialysis 64.20 kg August 28, 2024 05:18 AM Post-Dialysis 61.10 kg August 28, 2024 05:18 AM Other Other Value Date / Time Height 165 cm August 03, 2024 12:00 AM HEALTH CONCERNS Tuberculosis Testing TST Date Administered TST Date Read TST Result 07/11/2024 07/13/2024 Negative (<5) mm LAB RESULTS Hematology Result Type Result Value Relevant Reference Range Interpre tation Date HGB 8.7 g/dL 14.0 - 18.0 g/dL Low August 25, 2024 RDW 19.0 % 11.5 - 14.5 % High August 25, 2024 Hemoglobin x 3 26.1 % 42.0 - 54.0 % Low August 25, 2024 HAKAN 0.9 % 0.0 - 4.0 % - August 25 025 HCT 27.2 % 42.0 - 52.0 % Low August 25, 2024 MCHC 31.9 g/dL 30.0 - 36.0 g/dL - August 25, 2024 MCH 27.2 pg 27.0 - 31.0 pg - August Neutrophils 80.8 % 40.0 - 75.0 % High August Eosinophil 3.4 % 0.0 - 7.0 % - August 25 025 Basophils 0.9 % 0.0 - 1.5 % - August 25 Lymphocytes 9.4 % 19.0 - 48.0 % Low August Monocytes 4.7 % 3.0 - 10.0 % - August 25, 2024 WBC (No Diff) 8.03 1000/mcL 4.80 - 10.80 1000/mcL - August 25, 2024 RBC 3.19 mill/mcL 4.70 - 6.10 mill/mcL Low J an2024 Metabolic/Renal Result Type Result Value Relevant Referen ce Range Interpretation Date URR, Calc 74 % 65 - 80 % - August 25 BUN, Post 16 mg/dL 6 - 19 mg/dL - August 25, 2024 BUN 62 mg/dL 6 - 19 mg/dL High August 25, 2024 BUN/Creat Ratio 11.7 10.0 - 20.0 - August 25, 2024 Creatinine, Serum 5.31 mg/dL 0.60 - 1.30 mg/dL High August 25, 2024 Potassium 4.7 mEq/L 3.5 - 5.1 mEq/L - August 022024 HD Adequacy Result Type Result Value Relevant Referen ce Range Interpretation Date eKt/V ([place]) 1.42 No Reference Range Provided - August 25, 2024 wstdKt/V without residual 3.4 No Reference Range Provided - August 25, 2024 wstdKt/V, residual 0.0 No Reference Range Provided - August 25, 2024 wstdKt/V 3.4 No Reference Ran ge Provided - August 25, 2024 spKt/V (Daugirdas II) 1.64 No Reference Range Provided - August 25, 2024 Bone/Mineral Result Type Result Value Relevant Referen ce Range Interpretation Date Corrected Ca x P Product 77 0 - 54 High August 25, 2024 Phosphorus 7.5 mg/dL 2.6 - 4.5 mg/dL High August 022024 Calcium, Total 10.3 mg/dL 8.7 - 10.4 mg/dL - 2024 Ca x P Product 77 0 - 54 High August Liver/Nutrition Result Type Result Value Relevant Reference Range Interpre tation Date Albumin (BCG) 4.0 g/dL 3.5 - 5.2 g/dL - August 25, 2024 Infectious Diseases Result Type Result Value Relevant Referen ce Range Interpretation Date Hep B Surface Ag (HBsAg) Negative No Reference Range Provided Normal July 04, 2024 TRANSPLANT WAITLIST STATUS No Information on Transplant Waitlist Status DIALYSIS TREATMENTS Conventional Hemodialysis Date Pre-Treatment Vitals Post-Treatment Laura ls Duration (hr) BFR (mL/min) Dialysate Dialyzer Dialysis Access Meds Admin 2024 Weight 64.00 kg Weight 62.20 kg 03:51:00 360 2.0 K, 2.5 Ca, 1.0 Mg, 100 Dextrose (G2251) 160nre Optifl ux Blood Pressure-sitting 185/90 mmHg Blood Pressure-sit ting 148/78 mmHg Blood Pressure-standing 180/93 mmHg Blood Pressure-st anding 150/65 mmHg Heart Rate 81 beats per minute Heart Rate 69 beats per minute Respiratory Rate 18 breaths per minute Respiratory Rate 18 breaths per minute Temperature 97.8 deg. F Temperature 98.0 deg. F August 25, 2024 Weight 65.10 kg Weight 62.50 kg 03:53:00 310 2.0 K, 2.5 Ca, 1.0 Mg, 100 Dextrose (G2251) 160nre Optiflux Hemodialysis-AV Fistula-Standard, Left Upper Arm, Other/Unknown Access Placed on August 03, 2021 Heparin Sodium (Porcine) 1,000 Units/mL Systemic; 500units,Intravenous - push Heparin Sodium (Porcine) 1,000 Units/mL Systemic; 2000units,Intravenous - push Vitamin D (Calcitriol) Oral; 1.0mcg,Oral Blood Pressure-sitting 192/100 mmHg Blood Pressure-sit ting 187/92 mmHg Blood Pressure-standing 189/92 mmHg Blood Pressure-st anding 167/79 mmHg Heart Rate 79 beats per minute Heart Rate 61 beats per minute Respiratory Rate 14 breaths per minute Respiratory Rate 18 breaths per minute Temperature 97.0 deg. F Temperature 96.8 deg. F August 28, 2024 Weight 64.20 kg Weight 61.10 kg 03:49:00 400 2.0 K, 2.5 Ca, 1.0 Mg, 100 Dextrose (G2251) 160nre Optiflux Hemodialysis-AV Fistula-Standard, Left Upper Arm, Other/Unknown Access Placed on August 03, 2021 Heparin Sodium (Porcine) 1,000 Units/mL Systemic; 500units,Intravenous - push Heparin Sodium (Porcine) 1,000 Units/mL Systemic; 2000units,Intravenous - push Vitamin D (Calcitriol) Oral; 1.0mcg,Oral Blood Pressure-sitting 170/92 mmHg Blood Pressure-sit ting 118/62 mmHg Blood Pressure-standing 146/94 mmHg Blood Pressure-st anding 101/53 mmHg Heart Rate 85 beats per minute Heart Rate 70 beats per minute Respiratory Rate 16 breaths per minute Respiratory Rate 18 breaths per minute Temperature 97.2 deg. F Temperature 97.7 deg. F
--- OUTSIDE RECORDS SUMMARY | 2024-09-08 10:05 | XMS_ITS | Clinical Summary ---
Author Organization [facility] Address [address] [place] [address] Phone Care Team Providers Care Graphic Manager Name Role Phone Andie Whitmore RN Primary Care Provider Allergies No known active allergies Medications Medication Sig Dispensed Refills Start Date End Date Status amLODIPine (NORVASC) 10 mg tablet Take 1 tablet (10 mg total) by mouth 1 (one) time each day. Active hydrALAZINE (APRESOLINE) 50 mg tablet Take 1 tablet (50 mg total) by mouth 2 (two) times a day. Active Active Problems Problem Noted Date Diagnosed Date Anemia in chronic kidney disease 03/05/2024 ESRD (end stage renal disease) 03/02/2024 Heart failure with mildly reduced ejection fract ion 03/02/2024 HTN (hypertension) 03/02/2024 Obstructive uropathy 03/02/2024 Onychauxis 03/02/2024 Onychomycosis 03/02/2024 Prostate cancer metastatic to bone 03/02/2024 Secondary hyperparathyroidism of renal origin Encounters Date Type Department Care Team Description 07/24/2024 9:51 AM EST - 07/24/2024 1:[address] [facility] Emergency [address] [place] [address] Hemorrhage of arteriovenous fistula, initial encounter ([facility]) (Primary Dx) Discharge Disposition: Home or Self Care from Last 3 Months Social History Tobacco Use Types Packs/Day Years Used Date Smoking Tobacco: Never Smokeless Tobacco: Never Tobacco Cessation:Counseling Given: Not Answered Sex and Gender Information Value Date Recorded Sex Assigned at Not on file Gender Identity Not on file Sexual Orientation Not on file Job Start Date Occupation Industry Not on file Not on file Not on file Obstetrics History Last Filed Vital Signs Vital Sign Reading Time Taken Comments Blood Pressure 170/89 07/24/2024 12:33 PM EST Pulse 78 07/24/2024 10:15 AM EST Temperature 36.8 ??C (98.3 ??F) 07/24/2024 12:[address] Respiratory Rate 16 07/24/2024 11:00 AM EST Oxygen Saturation 96% 07/24/2024 12:33 PM EST Inhaled Oxygen Concentration - - Weight 69.4 kg (153 lb) 07/24/2024 9:57 AM EST Height 160 cm (5' 3 ) 07/24/2024 9:57 AM EST Body Mass Index 27.1 07/24/2024 9:57 AM EST Plan of Treatment Health Maintenance Due Date Last Done Comments Pneumococcal Vaccine: Pediatrics (0 to 5 Years) and At-Risk Patients (6 to 64 Years) (1 of 2 - PCV) 1967 RSV Immunization Patients 60+ Years Old (1 - Risk 60-74 years 1-dose series) 2021 Colorectal Cancer Screening: Stool Based Tests (FOBT/FIT) 02/24/2024 01/22/2022 Depression Screening 02/24/2024 12/22/2022 HIV Screening 02/24/2024 Hepatitis C Screening 02/24/2024 Medicare Annual Wellness Visit 02/24/2024 Social Influencers of Health Screening 02/24/2024 Hypertension/CHF/CAD Annual BMP Blood Test 05/15/2024 DTaP,Tdap,and Td Vaccines (2 - Td or Tdap) 12/17/2024 12/17/2014 Cholesterol Screening (Lipid Panel) 12/12/2028 12/13/2023 Zoster Vaccines Completed 03/13/2023, 11/15/2022 Influenza Vaccine Completed 03/12/2024, , 05/11/2020, Additional history exists COVID-19 Vaccine Completed 03/29/2024, , 06/10/2022, Additional history exists HIB Vaccines Aged Out No longer eligi [...] on patient's age to complete this topic MMR Vaccines Aged Out No longer eligi ble based on patient's age to complete this topic Meningococcal ACWY Vaccine Aged Out N o longer eligible based on patient's age to complete this topic RSV Immunization Patients Under 20 months Aged Out No longer eligible based on patient's age to complete this topic Varicella Vaccines Aged Out No longer eligible based on patient's age to complete this topic Care Teams Graphic Manager Relationship Specialty Start Date End Date Andie Whitmore RN [address] [address] PCP - General 12/14/23
--- OUTSIDE RECORDS SUMMARY | 2024-09-08 10:05 | XMS_ITS ---
Author Name HungChuckyleann Address [address] [place] [address] Phone [phone] Organization [facility], NA DOCUMENT DISCLAIMER Multiple document versions may exist, please be sure you review the latest version. The information in the [facility] Progress Note Document represents a providers documented clinical note containing certain health and medical information. It may not contain the complete medical history for the patient and should be independently verified. The represented time in the document is Eastern Time PROVIDER ROUNDING NOTE BASIC Patient:?Darwin?Maribeth,?1960,?64y,?M Dialysis?Location:?[facility]?-?J[facility] Attending?Anesthesia Associate:?Reji?[facility]?Date:?08/14/2024 Service?Provider:?Marsha?Hung,? I?met?face?to?face?with?the?patient?today. OVERVIEW The?patient?presented?with?ESRD?on?dialysis Primary?cause?of?renal?failure:?Hypertensive?chronic?kidney? disease?with?stage?1?through?stage?4?chronic?kidney?dis ease,?or?unspecified?chronic?kidney?disease Comments:?Visiting[place]from[place]a?patient?of?? [facility]?.?Denies?any?complaints DIALYSIS?PRESCRIPTION ??IHD?3x?Week?Start?date:?08/07/24 ??Dialyzer:?160NRe?Optiflux ??BFR:?400 ??DFR:?Manual?500 ??Potassium:?2.0 ??Sodium:?138 ??EDW:?62 ??Duration:?3:45 ??Calcium:?2.5 ??Bicarb:?38 ??Rx?updated?on:?08/07/2024 Comments:?Cont?current?HD?prescription TREATMENT?ASSESSMENT Comments:?No?issues?during?HD?.?BP?high?normal?post&#16 0;HD?.?Needs?to?monitor?home?BP?.? Blood?pressure?elevated.? BP?Stand?Pre ??08/14/2024:?176/96 ??08/11/2024:?163/100 ??08/09/2024:?183/82 BP?Sit?Pre ??08/14/2024:?184/98 ??08/11/2024:?160/89 ??08/09/2024:?164/98 BP?Stand?Post ??08/14/2024:?140/81 ??08/11/2024:?118/57 ??08/09/2024:?152/77 BP?Sit?Post ??08/14/2024:?128/83 ??08/11/2024:?130/61 ??08/09/2024:?135/100 Tx?Duration ??08/14/2024:?3:45 ??08/11/2024:?3:45 ??08/09/2024:?3:45 Missed?Treatments 0?-?last?30?days 0?-?last?60?days FLUID?ASSESSMENT Fluid?status?not?acceptable.? EDW?(kg) ??08/14/2024:?62.0 ??08/11/2024:?62.0 ??08/09/2024:?62.0 Weight?Pre?(kg) ??08/14/2024:?66.6 ??08/11/2024:?65.9 ??08/09/2024:?65.5 Weight?Post?(kg) ??08/14/2024:?63.0 ??08/11/2024:?62.5 ??08/09/2024:?62.5 PWV?(kg) ??08/14/2024:?1.0 ??08/11/2024:?0.5 ??08/09/2024:?0.5 UF?Rate?(mL/kg/hr) ??08/14/2024:?15.2 ??08/11/2024:?14.5 ??08/09/2024:?12.8 ACCESS?ASSESSMENT ??Access?Type:?AVFistula ??Access?SubType:?Standard ??Access?Status:?Active?(In?Use)?-?08/12/2023 ??Access?Location:?Left?Upper?Arm ??Created:?08/03/2021 Vascular?access?reviewed. ANEMIA?ASSESSMENT Comments:?Check?Hb BMM?ASSESSMENT Comments:?Check?Ca?,?PO-4?and?PTH?level? Vitamin?D?(Calcitriol)?Oral?(mcg) ??08/14/2024:?1.0 ??08/11/2024:?1.0 ??08/09/2024:?1.0 NUTRITION?ASSESSMENT Comments:?Check?Albumin?and?K?level PHYSICAL?EXAM Exam?Performed.?Vital?Signs?Reviewed.?Lungs?-?Clear.?CV&#160 ;-?Blood?pressure?noted.?EXT?-?1+?edema. DIAGNOSIS Chief?Complaint:?N18.6?End?stage?renal?disease Patient?data?updated?08/14/2024?at?9:59?PM Signed?By:?Hung,?Marsha???on?08/14/2024?10:00:20?PM END OF DOCUMENT
--- NOTE | 2024-09-08 10:17 | ED.SOB ---
HPI - SOB/Dyspnea General Chief Complaint: Dyspnea Stated Complaint: pneumonia ? Time Seen by Provider: 09/08/24 10:04 Source: patient Mode of arrival: ambulatory Limitations: no limitations History of Present Illness ED Provider: PITO Hollins HPI Narrative: This is a 64-year-old male history of anemia and chronic disease, obstructive uropathy, prostate cancer with metastasis to the bone, CKD on hemodialysis Tuesday, Tuesday, Tuesday last got dialysis yesterday presenting to the emergency department with fatigue, malaise, myalgias, productive cough, shortness of breath all of which seem to be worsening. He reports thinks he had the flu a week ago he tested negative for COVID however never actually tested for the flu. He recently traveled to [place]. He reports he feels terrible. Upon arrival to the emergency department was noted to be hypoxic at 86-87% on room air, he was placed on nasal cannula he does not use oxygen at home. No sick contacts at home. Denies chest pain, headache, vision changes, dizziness, weakness, changes in urinary or bowel habits, abdominal pain, nausea, vomiting, diarrhea Related Data Home Medications ?Medication ?Instructions ?Recorded ?Confirmed blood pressure test kit-large #1 ea 03/18/22 05/16/24 amlodipine 10 mg tablet 10 mg PO BEDTIME 12/17/22 05/16/24 denosumab 60 mg/mL subcutaneous 60 mg subcut [id number] 02/24/23 05/16/24 syringe (Prolia) leuprolide acetate (6 month) 45 mg 45 mg subcut [id number] 02/24/23 05/16/24 (6 month) subcutaneous syringe (Eligard) ropinirole 2 mg tablet 2 mg PO MOWEFR 08/04/23 05/16/24 hydralazine 25 mg tablet 50 mg PO TID 09/07/23 05/16/24 Previous Rx's ?Medication ?Instructions ?Recorded abiraterone 250 mg tablet 1,000 mg (4 x 250 mg) PO DAILY 90 09/07/23 days #360 tabs prednisone 5 mg tablet 5 mg PO BID 90 days #180 tabs 09/15/23 Allergies Allergy/AdvReac Type Severity Reaction Status Date / Time No Known Allergies Allergy Verified 09/08/24 09:34 [No Known Allergies*] Review of Systems Review of Systems: Yes all other systems are reviewed and are negative [facility] Past Medical History Attestation statement: The following information was validated with the patient. Source: old records reviewed and nursing notes reviewed Medical History HTN (hypertension) ESRD (end stage renal disease) Creatinine elevation Urinary retention History of upper gastrointestinal bleeding A-V fistula Fusion of lumbar spine Chronic kidney disease Urinary tract infection Enlarged prostate Kidney disease Elevated PSA Anemia Metabolic acidosis Bilateral hydronephrosis Hypocalcemia Acute anemia Acute kidney injury Surgical History History of fusion of cervical spine Hx of esophagogastroduodenoscopy History of transurethral resection of prostate S/P arteriovenous (AV) fistula creation History of hip replacement, total Social History Social History Household Members: Other Household Members Other:: sister Housing: House Housing Other:: mobile home Do you presently have visiting nurse or other home services: No Alcohol intake: former Patient Tobacco Use Status: Former Tobacco user Tobacco use type: Cigarette Years Smoked: 50 Smoked in Last 30 Days: No e-Cigarette/Vaping Use: Former Use Use of substances other than those prescribed or required for medical reasons: No Substance Use Type: Marijuana Advance Directives: No Advance Directives Information Provided: No service: No Current occupational status: disabled Physical Exam Vital Signs: Vital Signs: Last Vital Signs Temp 97.9 F 09/08/24 15:12 Pulse 87 09/08/24 16:30 Resp 20 09/08/24 16:30 BP 176/79 H 09/08/24 16:30 Pulse Ox 95 09/08/24 16:30 O2 Del Method Non-Rebreather Ma sk 09/08/24 16:30 O2 Flow Rate 6 09/08/24 16:30 BMI result Body Mass Index 24.3 vss Appearance: Alert.? Oriented X3.? No acute distress.? Head: Normocephalic, atraumatic, no step-offs or deformities Eyes: Pupils equal, round and reactive to light.? Neck: Normal inspection.? Neck supple.? CVS: Normal heart rate and rhythm.? Pulses normal.? Respiratory: No respiratory distress.? Breath sounds normal.? Abdomen: Soft and nontender.? Skin: Skin warm and dry.? Normal skin color.? Normal skin turgor.? Extremities: No lower extremity edema.? No calf ttp. 5/5 strength to bilateral upper and lower extremities Back: No midline tenderness, no C-spine tenderness, full range of motion, no CVA tenderness bilaterally Neuro: Oriented X 3.? No motor deficit.? No sensory deficit. CN 2-12 intact Course Reevaluation(s) Reevaluation #1: CBC with a normocytic anemia hemoglobin 7 hematocrit 20.8 does have a history of anemia and chronic disease and he has required multiple transfusions in the past. He denies rectal bleeding or hemoptysis, he does not want a rectal exam right now however he is willing to give us a stool sample. Chemistry pending. Imaging pending. Verbal and written consent obtained for blood. It is in patient's chart. I ordered a type and screen as well as 1 unit of packed red blood cell Time: 11:00 Reevaluation #2: Patient's chemistry with low potassium 3.1 will give oral potassium at this time. BUN 17 creatinine 3.90 he last received hemodialysis yesterday. Chest CT pending. V/Q scan ordered to rule out PE Time: 11:06 Reevaluation #3: CT scan showing small ascites in the upper abdomen mild pulmonary edema mild gallbladder wall thickening with trace. Cholecystic fluid I did discuss this with surgery patient looks overall sick however not complaining of abdominal discomfort negative Graves's on exam surgeon Dr. Chambers does recommend following up with a HIDA scan to ensure no abnormalities. This can be done tomorrow as patient is having a V/Q scan today. Radiology as set this up to have it done tomorrow morning. Patient is to be NPO starting today at midnight. No signs of lobular pneumonia, ground-glass opacities bilaterally. Patient and family aware of plan. Plan is for hospital admission pending V/Q scan Time: 16:40 Medications Administered Discontinued Medications Generic Name Dose Route Start Last Admin Trade Name Freq PRN Reason Stop Dose Admin Ceftriaxone Sodium 1 gm 09/08/24 10:19 09/08/24 10:35 Ceftriaxone Sodium 1 Gm Vial IVPUSH 09/08/24 10:20 1 gm ONCE ONE Administration Albuterol Sulfate 2.5 mg/ 0 mg 09/08/24 11:46 09/08/24 11:49 Albuterol/Ipratropium 3 ml INHALE 09/08/24 11:47 5 dose ONCE ONE Administration Sodium Chloride 1,864.26 mls @ 1,864.26 mls/hr 09/08/24 10:19 09/08/24 11:05 Ns 30 ml/kg infuse over 1 hr (1864.26 ml) 09/08/24 11:18 Infused IV Infusion .Q1H STA Doxycycline Hyclate 100 mg/ 250 mls @ 166.67 mls/hr 09/08/24 11:02 09/08/24 13:44 Sodium Chloride IV 09/08/24 12:31 Infused ONCE ONE Infusion Potassium Chloride 20 meq 09/08/24 11:38 09/08/24 12:00 Potassium Chloride Er 20 Meq Tab.Er.Prt PO 09/08/24 11:39 20 meq ONCE ONE Administration Medical Decision Making Medical Decision Making [facility] Narrative: 1020 64-year-old male presents with upper respiratory symptoms ongoing for the past week worsening. Hypoxic upon arrival placed on nasal cannula. Physical exam diminished breath sounds bilaterally. No crackles or wheezing. Patient appears overall unwell. History and physical exam concerning for pneumonia versus PE versus viral illness. Will rule out metabolic derangements. Unlikely ACS. Plan labs, imaging, viral testing Differential Diagnosis Differential Diagnoses: The differential diagnosis associated with the presentation includes (History and physical exam concerning for pneumonia versus PE versus viral illness. Will rule out metabolic derangements. Unlikely ACS.) Admission/Observation Consideration of admission/observation: Escalation of care including admission/observation considered Consult Healthcare Provider Management of the patient was discussed with: Hospitalist Lab Data [facility] Lab Attestation statement: I reviewed the patient's lab results. 09/08/24 10:25 09/08/24 10:25 Labs: Lab Results 09/08/24 09/08/24 Range/Units 10:25 11:00 WBC 6.9 (4.8-10.8) X10*3/uL RBC 2.47 L D (4.60-5.80) X10*6/uL Hgb 7.0 L* D (14.0-18.0) g/dl Hct 20.8 L* D (42.0-52.0) % MCV 84.2 (80.0-98.0) fL MCH 28.3 (27.0-33.0) pg MCHC 33.7 (31.0-36.0) g/dl RDW 18.9 H (11.0-16.0) % Plt Count 191 (160-400) X10*3/uL MPV 11.1 (9.4-12.4) fL Immature Gran % (Auto) 0.6 H (0.0-0.4) % Neut % (Auto) 79.1 H (45-73) % Lymph % (Auto) 14.1 L (20-40) % [place] % (Auto) 4.5 (2-11) % Eos % (Auto) 1.3 (0-4) % Baso % (Auto) 0.4 (0-2) % Lymph # (Auto) 1.0 L (1.2-4.9) X10*3/uL [place] # (Auto) 0.3 (0.1-1.2) X10*3/uL Eos # (Auto) 0.1 (0.0-0.4) X10*3/uL Baso # (Auto) 0.0 (0.0-0.2) X10*3/uL Abs Immat Gran (auto) 0.04 H (0.00-0.03) X10*3/uL Absolute Neuts (auto) 5.5 (2.0-8.3) x10*3/uL Absolute Nucleated RBC 0.000 (0.0-0.012) X10*3/uL Nucleated RBC % (auto) 0.0 (0.0-0.2) /100WBC Sodium 135 (135-145) mmol/L Potassium 3.1 L (3.3-5.1) mmol/L Chloride 96 (96-108) mmol/L Carbon Dioxide 26 (22-29) mmol/L Anion Gap 16 (12-20) BUN 17 H (9-16) mg/dL Creatinine 3.90 H (0.5-1.4) mg/dL Estim Creat Clear Calc 15.6 Estimated GFR 16 Random Glucose 93 (60-115) mg/dL Lactic Acid 0.8 (0.5-2.0) mmol/L Calcium 9.5 (8.4-10.2) mg/dL Magnesium 1.8 (1.6-2.6) mg/dL Total Bilirubin 0.8 (0.0-1.0) mg/dL AST 26 (5-37) U/L ALT 7 (0-40) U/L Alkaline Phosphatase 113 (39-117) U/L B-Natriuretic Peptide 4852 H (<100) pg/mL Total Protein 6.5 (6.5-8.0) g/dL Albumin 3.7 (3.5-5.0) g/dL Influenza Type A (PCR) NEGATIVE (Negative) Influenza Type B (PCR) NEGATIVE (Negative) RSV RNA Qual (PCR) NEGATIVE (Negative) SARS-CoV-2 RNA (RT-PCR) NEGATIVE (Negative) Blood Type A Positive Antibody Screen NEGATIVE Crossmatch See Detail Independent Interpretation I performed an independent interpretation of an: EKG and CT Scan Radiology Impression Discussion of test interpretation with radiology: I have reviewed the radiologist's reading. External Record Review External record reviewed: Inpatient record, Office record, Outpatient record, Prior outpatient labs, Prior outpatient radiology, Primary care record and Outside ED record Critical Care Time Critical Care Time Critical Care Time: Yes Total Critical Care Time: 45 Attestation: I attest to this time spent taking care of the patient, obtaining history, physical, reviewing labs, imaging, treatment of patients condition +/- specialist/hospitalist consult Discharge Plan Discharge Clinical Impression: Anemia, Hypoxia, Acute bronchitis Patient Disposition: Still a Patient Prescriptions: No Action abiraterone 250 mg tablet 1,000 mg PO DAILY 90 Days Qty: 360 3RF Rx Instructions: must be taken on empty stomach, at least 1 hr before or 2 hrs after a meal/food prednisone 5 mg tablet 5 mg PO BID 90 Days Qty: 180 3RF ropinirole 2 mg tablet 2 mg PO MOWEFR Rx Instructions: ADDITIONAL FOR BEFORE DIAYLSIS (DME) blood pressure test kit-large Kit See Rx Instructions .ROUTE DAILY Qty: 1 Rx Instructions: As directed amlodipine 10 mg tablet 10 mg PO BEDTIME Eligard (6 month) 45 mg syringe 45 mg subcut [id number] Prolia 60 mg/mL syringe 60 mg subcut [id number] hydralazine 25 mg tablet 50 mg PO TID Protocol: Hold for SBP< HOLD for SBP < : 90 Print Language: Tristanian
--- NOTE | 2024-09-08 10:21 | ECG_ITS ---
Test Reason : DIFF BREATHING Blood Pressure : */* mmHG Vent. Rate : 72 BPM Atrial Rate : 72 BPM P-R Int : 180 ms QRS Dur : 92 ms QT Int : 438 ms P-R-T Axes : 73 -29 196 degrees QTcB Int : 479 ms Sinus rhythm with occasional Premature ventricular complexes Possible Left atrial enlargement Left ventricular hypertrophy with repolarization abnormality ( Stehekin product ) Abnormal ECG When compared with ECG of 04-Aug-2023 19:49, Premature ventricular complexes are now Present QRS axis Shifted left Nonspecific T wave abnormality now evident in Inferior leads T wave inversion now evident in Lateral leads Referred By: Marvin Hollins Electronically Signed By: Jesse Amaro
[2024-09-08] MEDS: cefTRIAXone sodium 1 GM VIAL IVPUSH (10:35)
[2024-09-08 10:39] LABS: MANUAL DIFF FLAG NO
[2024-09-08] MEDS: SODIUM CHLORIDE 1864.26 ML IV (10:39)
[2024-09-08 10:40] LABS: Basophils Percent Auto 0.4 % (0-2); Eosinophils Absolute Auto 0.1 X10*3/uL (0.0-0.4); Eosinophils Percent Auto 1.3 % (0-4); Imm Gran Abs Auto 0.04 X10*3/uL (0.00-0.03); Imm Gran Pct Auto 0.6 % (0.0-0.4); Lymphocytes Percent Auto 14.1 % (20-40); Mean Corpuscular HGB Conc 33.7 g/dl (31.0-36.0); Mean Corpuscular Hemoglobin 28.3 pg (27.0-33.0); Mean Corpuscular Volume 84.2 fL (80.0-98.0); Mean Platelet Volume 11.1 fL (9.4-12.4); Monocytes Absolute Auto 0.3 X10*3/uL (0.1-1.2); Monocytes Percent Auto 4.5 % (2-11); Neutrophils Absolute Auto 5.5 x10*3/uL (2.0-8.3); Neutrophils Percent Auto 79.1 % (45-73); Platelet Count 191 X10*3/uL (160-400); Red Blood Count 2.47 X10*6/uL (4.60-5.80); Red Cell Distribution Width 18.9 % (11.0-16.0); White Blood Count 6.9 X10*3/uL (4.8-10.8)
--- NOTE | 2024-09-08 10:41 | PC.NURSE ---
AV fistula left upper arm. 20g IV right forearm. IV fluids infusing. on 2l O2 NC after satting 87% RA in triage. RA sat lying in bed 93. pt denies pain. Lung sounds diminished bilaterally
[2024-09-08 10:44] LABS: Hematocrit 20.8 % (42.0-52.0)
[2024-09-08 11:02] LABS: Alanine Aminotransferase 7 U/L (0-40); Albumin Level 3.7 g/dL (3.5-5.0); Alkaline Phosphatase 113 U/L (39-117); Anion Gap 16 (12-20); Aspartate Amino Transferase 26 U/L (5-37); Bilirubin Total 0.8 mg/dL (0.0-1.0); Blood Urea Nitrogen 17 mg/dL (9-16); Calcium 9.5 mg/dL (8.4-10.2); Carbon Dioxide 26 mmol/L (22-29); Chloride 96 mmol/L (96-108); Creatinine Clr Calc Pharmacy 15.6; Estimated Glomerular Filt Rate 16; Glucose Random 93 mg/dL (60-115); Magnesium 1.8 mg/dL (1.6-2.6); Potassium 3.1 mmol/L (3.3-5.1); Sodium 135 mmol/L (135-145); Total Protein 6.5 g/dL (6.5-8.0)
[2024-09-08 11:03] LABS: Lactic Acid 0.8 mmol/L (0.5-2.0)
[2024-09-08] MEDS: Doxycycline Hyclate 100 MG in 0.9 % Sodium Chloride 250 ML 166.67 MG IV ×2 (11:13→23:15)
[2024-09-08 11:18] LABS: Influenza A PCR NEGATIVE (Negative); Influenza B PCR NEGATIVE (Negative); Resp Syncy Virus RNA Qual PCR NEGATIVE (Negative); SARS COV2 PCR INHOUSE NEGATIVE (Negative)
[2024-09-08 11:19] LABS: B Type Natriuretic Peptide 4852 pg/mL (<100)
--- NOTE | 2024-09-08 11:24 | PC.NURSE ---
Assumed care of this patient at 1100, patient notably SOB, sating 84% on 2L titrated up to 4L. Verbal order from Ragini provider to stop IV fluids, ~ 100 ccs infused total. Faby quispe. Pt currently in CT for scan.
[2024-09-08] MEDS: Albuterol Sulfate 2.5 MG, Albuterol/Iprat 2.5/0.5MG 3 ML 3 ML INHALE (11:49)
[2024-09-08] MEDS: Potassium Chloride ER 20 MEQ TAB.ER.PRT PO (12:00)
--- NOTE | 2024-09-08 13:30 | PC.NURSE ---
[facility] called for patient @ 1315, informed them blood is currently running, patient needs to go monitored w/ RN, no staff available. Pt. needs to go to scan for 1330 per Giovana in [facility]. Nursing Tree Surgeon Helper made aware, propellant charge loader made aware, no resources available. Karen RN able to go as her orientee is able to manage their assignment independently. Patient transported over to [facility] w/ Giovana and Karen at this time.
--- NOTE | 2024-09-08 14:31 | PC.NURSE ---
Pt back from [facility], satig low 90's on 6L NC, Ragini made aware, asked for patient to be placed on NRB mask - currently sating 96% on 6L NRB
--- NOTE | 2024-09-08 16:52 | P.HPHOSP_ITS ---
History of Present Illness Date of Service: 09/08/24 Chief Complaint: Hypoxia, cough, anemia A 64 years old male with PMH of metastatic prostate CA to bone, chronic anemia, ESRD on HD MWF, HTN who presents to the hospital with worsening SOB and fatigue over the last week found to be Anemia and wheezy. The patient reports worsening cough, wheezing, SOB, weakness and having no energy over the last 2 days that started one week ago. He tested negative for Covid but did not check Flu but felt he got those symptoms. No chest pain, palpitations, nausea, vomiting, diarrhea or urinary symptoms. He denies any bleeding or melena. refused rectal exam. In ED found to be hypoxic around 86% on presentation responded to O2 supplement. Hb of 7 from baseline >8.5. transfused one unit of blood. Admitted for further evaluation and treatment. Review of Systems 2 Review of Systems: No fever, chills but reporting weakness No chest pain, palpitation having shortness of breath wheezing and coughing No abdominal pain, nausea or vomiting No urinary symptoms No wounds PMFSH Medical History HTN (hypertension) ESRD (end stage renal disease) Creatinine elevation Urinary retention History of upper gastrointestinal bleeding A-V fistula Fusion of lumbar spine Chronic kidney disease Urinary tract infection Enlarged prostate Kidney disease Elevated PSA Anemia Metabolic acidosis Bilateral hydronephrosis Hypocalcemia Acute anemia Acute kidney injury Surgical History History of fusion of cervical spine Hx of esophagogastroduodenoscopy History of transurethral resection of prostate S/P arteriovenous (AV) fistula creation History of hip replacement, total Social History Household Members: Other Household Members Other:: sister Housing: House Housing Other:: mobile home Do you presently have visiting nurse or other home services: No Alcohol intake: former Patient Tobacco Use Status: Former Tobacco user Tobacco use type: Cigarette Years Smoked: 50 Smoked in Last 30 Days: No e-Cigarette/Vaping Use: Former Use Use of substances other than those prescribed or required for medical reasons: No Substance Use Type: Marijuana Advance Directives: No Advance Directives Information Provided: No service: No Current occupational status: disabled Meds Allergies Allergy/AdvReac Type Severity Reaction Status Date / Time No Known Allergies Allergy Verified 09/08/24 09:34 [No Known Allergies*] Home Medications ?Medication ?Instructions ?Recorded ?Confirmed ?Last Taken ?Type blood pressure test kit-large #1 ea 03/18/22 05/16/24 Unknown History amlodipine 10 mg tablet 10 mg PO BEDTIME 12/17/22 05/16/24 Unknown History denosumab 60 mg/mL subcutaneous 60 mg subcut [id number] 02/24/23 05/16/24 Unknown History syringe (Prolia) leuprolide acetate (6 month) 45 mg 45 mg subcut [id number] 02/24/23 05/16/24 Unknown History (6 month) subcutaneous syringe (Eligard) ropinirole 2 mg tablet 2 mg PO MOWEFR 08/04/23 05/16/24 Unknown History albuterol sulfate 90 mcg/actuation 2 puff inhalation Q4H PRN wheezing 09/08/24 Unknown History aerosol inhaler (Ventolin HFA) calcium acetate(phosphat bind) 667 1,334 mg PO TIDWM 09/08/24 Unknown History mg capsule efinaconazole 10 % topical 1 appl topical DAILY 09/08/24 Unknown History solution with applicator (Jublia) hydralazine 50 mg tablet 50 mg PO BID 09/08/24 Unknown History rosuvastatin 5 mg tablet 5 mg PO DAILY 09/08/24 Unknown History Physical Exam 2 Vital Signs and Narrative: Vital Signs: Last Vital Signs Temp 97.9 F 09/08/24 15:12 Pulse 87 09/08/24 16:30 Resp 20 09/08/24 16:30 BP 176/79 H 09/08/24 16:30 Pulse Ox 95 09/08/24 16:30 O2 Del Method Non-Rebreather Ma sk 09/08/24 16:30 O2 Flow Rate 6 09/08/24 16:30 BMI result Body Mass Index 24.3 Const: Other: Constitutional : Awake, interactive, not in distress Neck : Normal inspection, Supple Cardiovascular : RRR, no JVP, no lower extremity edema Respiratory : good bilateral air entry, bilateral expiratory wheezes, on O2 supplement Gastrointestinal: soft, lax, Normal bowel sounds, Non tender Skin : Warm, Dry Neurological : Alert & oriented x3, No focal deficit Results Labs 09/08/24 10:25 09/08/24 10:25 Labs: Laboratory Results - last 24 hr 09/08/24 09/08/24 10:25 11:00 MCV 84.2 MCH 28.3 MCHC 33.7 RDW 18.9 H Plt Count 191 MPV 11.1 Immature Gran % (Auto) 0.6 H Neut % (Auto) 79.1 H Lymph % (Auto) 14.1 L [place] % (Auto) 4.5 Eos % (Auto) 1.3 Baso % (Auto) 0.4 Lymph # (Auto) 1.0 L [place] # (Auto) 0.3 Eos # (Auto) 0.1 Baso # (Auto) 0.0 Abs Immat Gran (auto) 0.04 H Absolute Neuts (auto) 5.5 Absolute Nucleated RBC 0.000 Nucleated RBC % (auto) 0.0 Anion Gap 16 Estim Creat Clear Calc 15.6 Estimated GFR 16 Random Glucose 93 Lactic Acid 0.8 Calcium 9.5 Magnesium 1.8 Total Bilirubin 0.8 AST 26 ALT 7 Alkaline Phosphatase 113 B-Natriuretic Peptide 4852 H Total Protein 6.5 Albumin 3.7 Influenza Type A (PCR) NEGATIVE Influenza Type B (PCR) NEGATIVE RSV RNA Qual (PCR) NEGATIVE SARS-CoV-2 RNA (RT-PCR) NEGATIVE Blood Type A Positive Antibody Screen NEGATIVE Crossmatch See Detail Assessment and Plan (1) Acute bronchitis: Status: Acute (2) Hypoxia: Status: Acute (3) Acute on chronic anemia: Status: Acute (4) Symptomatic anemia: Status: Acute Plan A 64 years old male with PMH of metastatic prostate CA to bone, chronic anemia, ESRD on HD MWF, HTN who presents to the hospital with worsening SOB and fatigue over the last week found to be Anemia and hypoxic. Acute hypoxemia secondary to worsening anemia and acute bronchitis\ CT scan showing mild amount of bilateral ground-glass opacity. Subsegmental atelectasis versus linear scarring. treat as reactive airway disease steroids, nebulizers ATC and PRN wean O2 down as tolerated correct anemia Acute on chronic anemia could be secondary to HD or blood loss check Iron stores occult stool Transfused 1 unit of blood Gallbladder wall thickening will discuss with surgery, HIDA ordered by ED but changes could be related to being on dialysis and fluid status ESRD on HD MWF Nephrology consulted for Tuesday treatment Elevated BNP likely secondary to dialysis RLS continue ropinirole HTN amlodipine + hydralazine VTE ppx UFH In my clinical judgment, the patient requires continued inpatient hospitalization for 2 nights for treatment of hypoxia pending anemia correction and respiratory status improvement Quality Stroke Does the patient have a stroke diagnosis?: No VTE Prior VTE?: No VTE Risk Level:: Medical - moderate - high VTE Device Contraindication: N/A - Device Ordered VTE Drug Contraindication: Treatment Not Indicated
[2024-09-08 17:18] LABS: Iron 39 mcg/dL (45-160); Percent Iron Saturation 25 % (15-50); Total Iron Binding Capacity 156 mcg/dL (228-428); Unsaturated Iron Binding 117 ug/dL
--- NOTE | 2024-09-08 18:21 | PHA.MEDREC ---
Addendum entered by Dev [facility] 09/08/24 18:30: Per patient, he is no longer on lupron nor denosumab. Original Note: Pharmacy Consult ? Medication Reconciliation Pharmacy has completed the medication reconciliation. Kavin spoke to patient to confirm medication list. Per patient, he takes abiraterone in the evening, hydralazine 100 mg bid, prednisone 5 mg in the morning, ropinirole 2 mg tid and rosuvastatin 5 mg in the evening, and last dose of medications was yesterday.
[2024-09-08] MEDS: Pantoprazole Sodium 40 MG/10 ML VIAL IVPUSH (18:55)
[2024-09-08] MEDS: Albuterol/Iprat 2.5/0.5MG 3 ML AMPUL.NEB INHALE (19:30)
--- NOTE | 2024-09-08 19:35 | MHC.EDTECH ---
This tech took over care of patient at 1900,rounded and introduced self to pt,vitals taken,BP is elevated RN is aware,patient was given a cup of gingerale per request,pt is resting quietly,call preciado in reach
[2024-09-08] MEDS: Sodium Ferric Gluconat/Sucrose 125 MG in 0.9 % Sodium Chloride 100 ML 100 MG IV (20:20)
--- NOTE | 2024-09-08 22:41 | PM.IMHP ---
History of Present Illness Date of Service: 09/08/24 Attending physician on admission: Gabino Enrique Chief Complaint: Progressive weakness, poor appetite and diarrhea 84-year-old male with a history of AFib on Eliquis, hypotension on midodrine, chronic kidney disease, hyperlipidemia who presents with progressive generalized weakness since the beginning of August. Patient states he has had increasing poor appetite and ongoing loose stools. Patient states he can not make it to the bathroom in time, that the diarrhea occurs spontaneously. Patient states he was admitted to [facility] around [place] time due to his weakness and frequent falls. Following his admission he went to a short-term rehab, but signed himself out prematurely. Denies recent cough or cold symptoms, fever, abdominal pain, nausea, vomiting. No use of recent antibiotics and no travel. Patient lives by himself in his own home, he does use a walker to ambulate. Patient has a bacterial pneumonia on chest x-ray he is influenza A positive, he is febrile rectally PMFSH Medical History HTN (hypertension) ESRD (end stage renal disease) Creatinine elevation Urinary retention History of upper gastrointestinal bleeding A-V fistula Fusion of lumbar spine Chronic kidney disease Urinary tract infection Enlarged prostate Kidney disease Elevated PSA Anemia Metabolic acidosis Bilateral hydronephrosis Hypocalcemia Acute anemia Acute kidney injury Surgical History History of fusion of cervical spine Hx of esophagogastroduodenoscopy History of transurethral resection of prostate S/P arteriovenous (AV) fistula creation History of hip replacement, total Social History Household Members: Other Household Members Other:: sister Housing: House Housing Other:: mobile home Do you presently have visiting nurse or other home services: No Alcohol intake: former Patient Tobacco Use Status: Former Tobacco user Tobacco use type: Cigarette Years Smoked: 50 Smoked in Last 30 Days: No e-Cigarette/Vaping Use: Former Use Use of substances other than those prescribed or required for medical reasons: No Substance Use Type: Marijuana Advance Directives: No Advance Directives Information Provided: No Nutrition Risks: No Nutritional Risk service: No Current occupational status: disabled Meds Allergies Allergy/AdvReac Type Severity Reaction Status Date / Time No Known Allergies Allergy Verified 09/08/24 09:34 [No Known Allergies*] Active Medications: Current Medications Acetaminophen (Acetaminophen 325 Mg Tablet) 650 mg PO Q6H PRN PRN Reason: Pain, Mild 1-3,fever,headache Albuterol Sulfate (Albuterol Sulfate (0.083%) 2.5 Mg/3 Ml Vial.Neb) 2.5 mg INHALE Q4H PRN PRN Reason: Shortness of Breath/Wheezing Albuterol/Ipratropium (Albuterol/Iprat 2.5/0.5mg 3 Ml Ampul.Neb) 3 ml INHALE Q6H [facility] Last Admin: 09/08/24 19:30 Dose: 3 ml Amlodipine Besylate (Amlodipine Besylate 10 Mg Tablet) 10 mg PO BEDTIME [facility]; Protocol Atorvastatin Calcium (Atorvastatin Calcium 20 Mg Tablet) 20 mg PO BEDTIME [facility] Calcium Acetate (Calcium Acetate 667 Mg Capsule) 1,334 mg PO TIDWM [facility] Calcium Carbonate (Calcium Carbonate 750 Mg Tab.Chew) 750 mg PO Q4H PRN PRN Reason: Heartburn Ceftriaxone Sodium (Ceftriaxone Sodium 1 Gm Vial) 1 gm IVPUSH Q24H [facility] Ferrous Sulfate (Ferrous Sulfate 324 Mg Tablet.Dr) 324 mg PO DAILY [facility] Hydralazine HCl (Hydralazine Hcl 50 Mg Tablet) 100 mg PO BID [facility]; Protocol Ferric Sodium Gluconate Complex 125 mg/ Sodium Chloride 110 mls @ 100 mls/hr IV Q24H [facility] Stop: 09/10/24 21:05 Last Infusion: 09/08/24 21:35 Dose: Infused Doxycycline Hyclate 100 mg/ (Sodium Chloride) 250 mls @ 166.67 mls/hr IV Q12H [facility] Magnesium Hydroxide (Milk Of Magnesia 30 Ml Oral.Susp) 30 ml PO DAILY PRN PRN Reason: Constipation Melatonin (Melatonin 3 Mg Tablet) 6 mg PO BEDTIME PRN PRN Reason: Insomnia Non-Formulary Medication (Abiraterone) 1,000 mg PO BEDTIME [facility] Ondansetron HCl (Ondansetron Hcl 4 Mg/2 Ml Vial) 4 mg IVPUSH Q8H PRN PRN Reason: Nausea and Vomiting Pantoprazole Sodium (Pantoprazole Sodium 40 Mg/10 Ml Vial) 40 mg IVPUSH DAILY@0630 [facility] Last Admin: 09/08/24 18:55 Dose: 40 mg Ropinirole HCl (Ropinirole Hcl 2 Mg Tablet) 2 mg PO TID [facility] Sodium Chloride (0.9 % Sodium Chloride Flush 3 Ml Syringe) 3 ml IVFLUSH QSHIFT [facility] Home Medications ?Medication ?Instructions ?Recorded ?Confirmed ?Last Taken ?Type blood pressure test kit-large #1 ea 03/18/22 09/08/24 09/07/24 History amlodipine 10 mg tablet 10 mg PO BEDTIME 12/17/22 09/08/24 09/07/24 History ropinirole 2 mg tablet 2 mg PO TID 08/04/23 09/08/24 09/07/24 History abiraterone 250 mg tablet 1,000 mg PO BEDTIME 09/08/24 09/08/24 09/07/24 History albuterol sulfate 90 mcg/actuation 2 puff inhalation Q4H PRN wheezing 09/08/24 09/08/24 Unknown History aerosol inhaler (Ventolin HFA) calcium acetate(phosphat bind) 667 1,334 mg PO TIDWM 09/08/24 09/08/24 09/07/24 History mg capsule efinaconazole 10 % topical 1 appl topical DAILY 09/08/24 09/08/24 09/07/24 History solution with applicator (Jublia) hydralazine 50 mg tablet 100 mg PO BID 09/08/24 09/08/24 09/07/24 History prednisone 5 mg tablet 5 mg PO DAILY 09/08/24 09/08/24 09/07/24 History rosuvastatin 5 mg tablet 5 mg PO BEDTIME 09/08/24 09/08/24 09/07/24 History Physical Exam Vital Signs and Narrative: Vital Signs: Last Vital Signs Temp 98.8 F 09/08/24 22:20 Pulse 136 H 09/08/24 22:20 Resp 16 09/08/24 22:20 BP 190/60 H 09/08/24 22:20 Pulse Ox 97 09/08/24 22:20 O2 Del Method Nasal Cannula 09/08/24 22:20 O2 Flow Rate 9 09/08/24 22:20 BMI result Body Mass Index 24.3 Results Labs 09/08/24 10:25 09/08/24 10:25 Labs: Laboratory Results - last 24 hr 09/08/24 09/08/24 10:25 11:00 MCV 84.2 MCH 28.3 MCHC 33.7 RDW 18.9 H Plt Count 191 MPV 11.1 Immature Gran % (Auto) 0.6 H Neut % (Auto) 79.1 H Lymph % (Auto) 14.1 L [place] % (Auto) 4.5 Eos % (Auto) 1.3 Baso % (Auto) 0.4 Lymph # (Auto) 1.0 L [place] # (Auto) 0.3 Eos # (Auto) 0.1 Baso # (Auto) 0.0 Abs Immat Gran (auto) 0.04 H Absolute Neuts (auto) 5.5 Absolute Nucleated RBC 0.000 Nucleated RBC % (auto) 0.0 Anion Gap 16 Estim Creat Clear Calc 15.6 Estimated GFR 16 Random Glucose 93 Lactic Acid 0.8 Calcium 9.5 Magnesium 1.8 Iron 39 L TIBC 156 L % Saturation 25 Unsat Iron Binding 117 Total Bilirubin 0.8 AST 26 ALT 7 Alkaline Phosphatase 113 B-Natriuretic Peptide 4852 H Total Protein 6.5 Albumin 3.7 Influenza Type A (PCR) NEGATIVE Influenza Type B (PCR) NEGATIVE RSV RNA Qual (PCR) NEGATIVE SARS-CoV-2 RNA (RT-PCR) NEGATIVE Blood Type A Positive Antibody Screen NEGATIVE Crossmatch See Detail Quality Stroke Does the patient have a stroke diagnosis?: No VTE Prior VTE?: No VTE Risk Level:: Medical - moderate - high VTE Device Contraindication: N/A - Device Ordered VTE Drug Contraindication: Treatment Not Indicated
[2024-09-08] MEDS: hydrALAZINE HCl 50 MG TABLET 100 MG PO (23:13)
[2024-09-08] MEDS: amLODIPine Besylate 10 MG TABLET PO (23:14)
[2024-09-08] MEDS: rOPINIRole HCL 2 MG TABLET PO (23:14)
[2024-09-09] VITALS (10 sets, daily range): BP systolic 126–184; BP diastolic 66–85; PULSE 77–101; RESP 14–28; TEMP 36.6–37.6; O2SAT 91–96
[2024-09-09] MEDS: Albuterol/Iprat 2.5/0.5MG 3 ML AMPUL.NEB INHALE (04:02)
[2024-09-09 06:06] LABS: MANUAL DIFF FLAG NO
[2024-09-09 06:29] LABS: Anion Gap 16 (12-20); Blood Urea Nitrogen 28 mg/dL (9-16); Calcium 9.2 mg/dL (8.4-10.2); Carbon Dioxide 24 mmol/L (22-29); Chloride 97 mmol/L (96-108); Creatinine Clr Calc Pharmacy 10.7; Estimated Glomerular Filt Rate 10; Glucose Random 102 mg/dL (60-115); Potassium 3.3 mmol/L (3.3-5.1); Sodium 134 mmol/L (135-145)
[2024-09-09 06:42] LABS: Basophils Absolute Auto 0.1 X10*3/uL (0.0-0.2); Basophils Percent Auto 0.5 % (0-2); Eosinophils Absolute Auto 0.1 X10*3/uL (0.0-0.4); Eosinophils Percent Auto 1.1 % (0-4); Hematocrit 24.3 % (42.0-52.0); Imm Gran Abs Auto 0.07 X10*3/uL (0.00-0.03); Imm Gran Pct Auto 0.7 % (0.0-0.4); Lymphocytes Absolute Auto 0.9 X10*3/uL (1.2-4.9); Lymphocytes Percent Auto 8.8 % (20-40); Mean Corpuscular HGB Conc 32.9 g/dl (31.0-36.0); Mean Corpuscular Hemoglobin 28.7 pg (27.0-33.0); Mean Corpuscular Volume 87.1 fL (80.0-98.0); Mean Platelet Volume 12.5 fL (9.4-12.4); Monocytes Absolute Auto 0.4 X10*3/uL (0.1-1.2); Neutrophils Absolute Auto 8.5 x10*3/uL (2.0-8.3); Neutrophils Percent Auto 84.9 % (45-73); Platelet Count 200 X10*3/uL (160-400); Red Blood Count 2.79 X10*6/uL (4.60-5.80); Red Cell Distribution Width 18.6 % (11.0-16.0)
[2024-09-09] MEDS: Pantoprazole Sodium 40 MG/10 ML VIAL IVPUSH (07:27)
[2024-09-09] MEDS: Ferrous Sulfate 324 MG TABLET.DR PO (08:30)
[2024-09-09] MEDS: Calcium Acetate 667 MG CAPSULE 1334 MG PO ×2 (08:30→16:47)
[2024-09-09] MEDS: guaiFENesin DM 600/30 1 TAB TAB.ER.12H PO (08:30)
[2024-09-09] MEDS: hydrALAZINE HCl 50 MG TABLET 100 MG PO ×2 (08:30→21:12)
[2024-09-09] MEDS: rOPINIRole HCL 2 MG TABLET PO ×3 (08:30→21:12)
[2024-09-09] MEDS: 0.9 % Sodium Chloride Flush 3 ML SYRINGE IVFLUSH ×3 (08:32→21:13)
[2024-09-09 08:40] LABS: VBG HCO3 27 mmol/L (22-26); VBG pCO2 34 mmHg; VBG pH 7.49 (7.32-7.43); VBG pO2 98 mmHg
[2024-09-09 08:48] LABS: Venous Blood Gas Refer to POC result
[2024-09-09 08:52] LABS: Adenovirus PCR Not Detected (Not Detect.); Bordetella parapertussis PCR Not Detected (Not Detect.); Bordetella pertussis PCR Not Detected (Not Detect.); Chlamydia pneumoniae PCR Not Detected (Not Detect.); Coronavirus 229E PCR Not Detected (Not Detect.); Coronavirus HKU1 PCR Not Detected (Not Detect.); Coronavirus NL63 PCR Not Detected (Not Detect.); Coronavirus OC43 PCR Not Detected (Not Detect.); Human metapneumovirus PCR Not Detected (Not Detect.); Influenza A PCR Not Detected (Not Detect.); Influenza B PCR Not Detected (Not Detect.); Mycoplasma pneumoniae PCR Not Detected (Not Detect.); Parainfluenza 1 PCR Not Detected (Not Detect.); Parainfluenza 2 PCR Not Detected (Not Detect.); Parainfluenza 3 PCR Not Detected (Not Detect.); Parainfluenza 4 PCR Not Detected (Not Detect.); RSV PCR Not Detected (Not Detect.); Rhino/Enterovirus PCR Detected (Not Detect.)
[2024-09-09 08:55] LABS: SARS-CoV-2 PCR Not Detected (Not Detect.)
--- NOTE | 2024-09-09 09:32 | MHC.CM.PN ---
PT REPORTS HE LIVES WITH HIS SISTER AND IS INDEPENDENT WITH CARE HE HAS A CANE FOR DME AND NO HOME SERVICES HE RECEIVES HD MWF @ [address] IN [place] HCP ON FILE PCP: VALERI FARMER IMM DELIVERED DCP: HOME VIA PRIVATE TRANSPORT
--- NOTE | 2024-09-09 12:04 | P.PNIM_ITS ---
Subjective Subjective Date of Service: 09/09/24 Interval History: seen and evaluated Coughing, feels congested Tested positive for Rhino\Entero virus Hb im[proved to 8 required Highflow O@ overnight CXR showing fluid overload Review of Systems No fever, chills but reporting weakness No chest pain, palpitation having shortness of breath wheezing and coughing No abdominal pain, nausea or vomiting No urinary symptoms No wounds Review of Systems: Yes all other systems are reviewed and are negative Physical Exam 2 Vital Signs: Vital Signs: Last Vital Signs Temp 98.3 F 09/09/24 07:32 Pulse 92 09/09/24 07:32 Resp 24 H 09/09/24 08:35 BP 161/66 H 09/09/24 07:32 Pulse Ox 95 09/09/24 07:32 O2 Del Method High Flow Nasal C annula 09/09/24 07:32 O2 Flow Rate 30 09/09/24 07:32 FiO2 50 09/09/24 07:32 BMI result Body Mass Index 24.6 Const: Other: Constitutional : Awake, interactive, not in distress Neck : Normal inspection, Supple Cardiovascular : RRR, no JVP, no lower extremity edema Respiratory : good bilateral air entry, bilateral expiratory wheezes, on O2 supplement Gastrointestinal: soft, lax, Normal bowel sounds, Non tender Skin : Warm, Dry Neurological : Alert & oriented x3, No focal deficit Objective Data Active Medications Acetaminophen (Acetaminophen 325 Mg Tablet) 650 mg PO Q6H PRN PRN Reason: Pain, Mild 1-3,fever,headache Albuterol Sulfate (Albuterol Sulfate (0.083%) 2.5 Mg/3 Ml Vial.Neb) 2.5 mg INHALE Q4H PRN PRN Reason: Shortness of Breath/Wheezing Albuterol/Ipratropium (Albuterol/Iprat 2.5/0.5mg 3 Ml Ampul.Neb) 3 ml INHALE Q6H [facility] Last Admin: 09/09/24 04:02 Dose: 3 ml Documented By: GERTRUDE Amlodipine Besylate (Amlodipine Besylate 10 Mg Tablet) 10 mg PO BEDTIME [facility]; Protocol Last Admin: 09/08/24 23:14 Dose: 10 mg Documented By: BELINDA Atorvastatin Calcium (Atorvastatin Calcium 20 Mg Tablet) 20 mg PO BEDTIME [facility] Calcium Acetate (Calcium Acetate 667 Mg Capsule) 1,334 mg PO TIDWM [facility] Last Admin: 09/09/24 08:30 Dose: 1,334 mg Documented By: LUAN Calcium Carbonate (Calcium Carbonate 750 Mg Tab.Chew) 750 mg PO Q4H PRN PRN Reason: Heartburn Ceftriaxone Sodium (Ceftriaxone Sodium 1 Gm Vial) 1 gm IVPUSH Q24H [facility] Ferrous Sulfate (Ferrous Sulfate 324 Mg Tablet.Dr) 324 mg PO DAILY [facility] Last Admin: 09/09/24 08:30 Dose: 324 mg Documented By: LUAN Guaifenesin (Guaifenesin 200 Mg/10 Ml 10 Ml Liquid) 10 ml PO Q4H PRN PRN Reason: Cough Guaifenesin/Dextromethorphan (Guaifenesin Dm 600/30 1 Tab Tab.Er.12h) 2 tab PO BID [facility] Hydralazine HCl (Hydralazine Hcl 50 Mg Tablet) 100 mg PO BID [facility]; Protocol Last Admin: 09/09/24 08:30 Dose: 100 mg Documented By: LUAN Ferric Sodium Gluconate Complex 125 mg/ Sodium Chloride 110 mls @ 100 mls/hr IV Q24H [facility] Stop: 09/10/24 21:05 Last Infusion: 09/08/24 21:35 Dose: Infused Documented By: KAREY Doxycycline Hyclate 100 mg/ (Sodium Chloride) 250 mls @ 166.67 mls/hr IV Q12H [facility] Last Infusion: 09/09/24 00:45 Dose: Infused Documented By: BELINDA Magnesium Hydroxide (Milk Of Magnesia 30 Ml Oral.Susp) 30 ml PO DAILY PRN PRN Reason: Constipation Melatonin (Melatonin 3 Mg Tablet) 6 mg PO BEDTIME PRN PRN Reason: Insomnia Non-Formulary Medication (Abiraterone) 1,000 mg PO BEDTIME [facility] Ondansetron HCl (Ondansetron Hcl 4 Mg/2 Ml Vial) 4 mg IVPUSH Q8H PRN PRN Reason: Nausea and Vomiting Pantoprazole Sodium (Pantoprazole Sodium 40 Mg/10 Ml Vial) 40 mg IVPUSH DAILY@0630 [facility] Last Admin: 09/09/24 07:27 Dose: 40 mg Documented By: BELINDA Ropinirole HCl (Ropinirole Hcl 2 Mg Tablet) 2 mg PO TID [facility] Last Admin: 09/09/24 08:30 Dose: 2 mg Documented By: LUAN Sodium Chloride (0.9 % Sodium Chloride Flush 3 Ml Syringe) 3 ml IVFLUSH QSHIFT [facility] Last Admin: 09/09/24 08:32 Dose: 3 ml Documented By: LUAN Labs 09/09/24 05:47 09/09/24 05:47 Labs: Laboratory Results - last 24 hr 09/08/24 09/08/24 09/08/24 10:25 11:00 18:55 MCV MCH MCHC RDW Plt Count MPV Immature Gran % (Auto) Neut % (Auto) Lymph % (Auto) [place] % (Auto) Eos % (Auto) Baso % (Auto) Lymph # (Auto) [place] # (Auto) Eos # (Auto) Baso # (Auto) Abs Immat Gran (auto) Absolute Neuts (auto) Absolute Nucleated RBC Nucleated RBC % (auto) VBG pH VBG pCO2 VBG pO2 VBG HCO3 VBG O2 Saturation VBG Base Excess Anion Gap Estim Creat Clear Calc Estimated GFR Random Glucose Calcium Iron 39 L TIBC 156 L % Saturation 25 Unsat Iron Binding 117 Respiratory Panel R[place]ch See Note Adenovirus (Rapid PCR) Not Detected B.pert (TEM-PCR) Not Detected B.parapertussis DNA PCR Not Detected C. pneumoniae DNA (PCR) Not Detected Coronavirus OC43 (PCR) Not Detected Coronavirus HKU1 (PCR) Not Detected Coronavirus 229E (PCR) Not Detected Coronavirus NL63 (PCR) Not Detected Human Metapneumovir PCR Not Detected Influenza A (RT-PCR) Not Detected Influenza B (RT-PCR) Not Detected M. pneumoniae (PCR) Not Detected Parainfluenza 1 (PCR) Not Detected Parainfluenza 2 (PCR) Not Detected Parainfluenza 3 (PCR) Not Detected Parainfluenza 4 (PCR) Not Detected RSV (PCR) Not Detected Entero/Rhino (PCR) Detected A SARS-CoV-2 RNA (RT-PCR) Not Detected Blood Type A Positive Antibody Screen NEGATIVE Crossmatch See Detail 09/09/24 09/09/24 05:47 08:33 MCV 87.1 MCH 28.7 MCHC 32.9 RDW 18.6 H Plt Count 200 MPV 12.5 H Immature Gran % (Auto) 0.7 H Neut % (Auto) 84.9 H Lymph % (Auto) 8.8 L [place] % (Auto) 4.0 Eos % (Auto) 1.1 Baso % (Auto) 0.5 Lymph # (Auto) 0.9 L [place] # (Auto) 0.4 Eos # (Auto) 0.1 Baso # (Auto) 0.1 Abs Immat Gran (auto) 0.07 H Absolute Neuts (auto) 8.5 H Absolute Nucleated RBC 0.000 Nucleated RBC % (auto) 0.0 VBG pH 7.49 H VBG pCO2 34 VBG pO2 98 VBG HCO3 27 H VBG O2 Saturation 100.0 VBG Base Excess 4.0 Anion Gap 16 Estim Creat Clear Calc 10.7 Estimated GFR 10 Random Glucose 102 Calcium 9.2 Iron TIBC % Saturation Unsat Iron Binding Respiratory Panel [place] Adenovirus (Rapid PCR) B.pert (TEM-PCR) B.parapertussis DNA PCR C. pneumoniae DNA (PCR) Coronavirus OC43 (PCR) Coronavirus HKU1 (PCR) Coronavirus 229E (PCR) Coronavirus NL63 (PCR) Human Metapneumovir PCR Influenza A (RT-PCR) Influenza B (RT-PCR) M. pneumoniae (PCR) Parainfluenza 1 (PCR) Parainfluenza 2 (PCR) Parainfluenza 3 (PCR) Parainfluenza 4 (PCR) RSV (PCR) Entero/Rhino (PCR) SARS-CoV-2 RNA (RT-PCR) Blood Type Antibody Screen Crossmatch Assessment and Plan (1) Symptomatic anemia: Status: Acute (2) Acute on chronic anemia: Status: Acute (3) Hypoxia: Status: Acute (4) Acute bronchitis: Status: Acute (5) Acute respiratory failure with hypoxia: Status: Acute (6) Acute bronchitis due to Rhinovirus: Status: Acute Plan A 64 years old male with PMH of metastatic prostate CA to bone, chronic anemia, ESRD on HD MWF, HTN who presents to the hospital with worsening SOB and fatigue over the last week found to be Anemia and hypoxic. Acute hypoxemia secondary to worsening anemia and acute bronchitis with Rhino virus infection CT scan showing mild amount of bilateral ground-glass opacity. Subsegmental atelectasis versus linear scarring. required High flow O2 overnight treat as reactive airway disease steroids, nebulizers ATC and PRN wean O2 down as tolerated correct anemia Acute on chronic anemia could be secondary to HD or blood loss has low Iron stores to give Iron supplement occult stool Transfused 1 unit of blood with improved to 8 Gallbladder wall thickening discussed with surgery, MOHIT AGUAYO as findings likely related to being on dialysis and fluid status ESRD on HD MWF Nephrology consulted for HD session Elevated BNP likely secondary to dialysis RLS continue ropinirole HTN amlodipine + hydralazine VTE ppx UFH In my clinical judgment, the patient requires continued inpatient hospitalization for overnight for treatment of hypoxia pending anemia correction and respiratory status improvement Quality Stroke Does the patient have a stroke diagnosis?: No VTE Prior VTE?: No VTE Risk Level:: Medical - moderate - high VTE Device Contraindication: N/A - Device Ordered VTE Drug Contraindication: Treatment Not Indicated
[2024-09-09] MEDS: guaiFENesin LA 600 MG TAB.ER.12H PO (15:04)
[2024-09-09] MEDS: cefTRIAXone sodium 1 GM VIAL IVPUSH (16:46)
[2024-09-09] MEDS: Doxycycline Hyclate 100 MG in 0.9 % Sodium Chloride 250 ML 166.67 MG IV (16:47)
[2024-09-09] MEDS: methylPREDNISolone Sod Succ 40 MG/ML VIAL IVPUSH (16:47)
[2024-09-09] MEDS: guaiFENesin DM 600/30 1 TAB TAB.ER.12H 2 TAB PO (21:12)
[2024-09-09] MEDS: amLODIPine Besylate 10 MG TABLET PO (21:12)
[2024-09-09] MEDS: Atorvastatin Calcium 20 MG TABLET PO (21:12)
[2024-09-09] MEDS: Sodium Ferric Gluconat/Sucrose 125 MG in 0.9 % Sodium Chloride 100 ML 100 MG IV (21:13)
[2024-09-09] MEDS: Acetaminophen 325 MG TABLET 650 MG PO (21:25)
[2024-09-09] MEDS: guaiFENesin 200 MG/10 ML 10 ML LIQUID PO (23:02)
[2024-09-10 03:19] VITALS: BP 157/68; PULSE 84; RESP 20; TEMP 36.4; O2SAT 96
[2024-09-10] MEDS: Doxycycline Hyclate 100 MG in 0.9 % Sodium Chloride 250 ML 166.67 MG IV (04:04)
[2024-09-10] MEDS: guaiFENesin 200 MG/10 ML 10 ML LIQUID PO ×2 (04:04→09:13)
[2024-09-10] MEDS: Pantoprazole Sodium 40 MG/10 ML VIAL IVPUSH (05:50)
[2024-09-10 08:00] VITALS: BP 171/88; PULSE 81; RESP 18; TEMP 36.6; O2SAT 100
[2024-09-10] MEDS: rOPINIRole HCL 2 MG TABLET PO ×2 (09:03→14:29)
[2024-09-10] MEDS: hydrALAZINE HCl 50 MG TABLET 100 MG PO (09:03)
[2024-09-10] MEDS: Ferrous Sulfate 324 MG TABLET.DR PO (09:03)
[2024-09-10] MEDS: guaiFENesin DM 600/30 1 TAB TAB.ER.12H 2 TAB PO (09:03)
[2024-09-10] MEDS: 0.9 % Sodium Chloride Flush 3 ML SYRINGE IVFLUSH ×2 (09:03→15:16)
[2024-09-10] MEDS: Calcium Acetate 667 MG CAPSULE 1334 MG PO ×2 (09:03→12:18)
--- NOTE | 2024-09-10 10:41 | P.CDIM_ITS ---
PROVIDER RESPONSE TEXT: To clarify, the appropriate diagnosis supported by the clinical indicators: Iron deficiency anemia QUERY TEXT: PHYSICIAN'S DOCUMENTATION REQUEST Date of Query: 09/10/2024 07:59 AM EST Patient Name: Darwin Stahl Admit Date: 09/08/2024 Dear Jer Bermudez MD, A review of the medical record indicates additional documentation may be needed. Please review below and update the documentation accordingly. Clinical Indicators: Acute on chronic anemia could be secondary to HD or blood loss. Has low Iron stores to give Iron supplement. Transfused 1 unit of blood with improved to 8 Occult stool. LABS: Iron 39 L H/H - 7.0/20.8 Based on the above, could you clarify which of the following is the most likely type of anemia you ar e evaluating, treating, and/or monitoring? Iron deficiency anemia Iron deficiency anemia secondary to chronic blood loss Iron deficiency anemia secondary to acute on chronic blood loss Acute blood loss anemia Acute on chronic blood loss anemia Other (explain) Clinically unable to determine (explain) Thank you, Caryn Avendano, CCS, CDIS Use of terms such as suspected, likely, concern for, or probable (associated with a specific diagnosi s that is being evaluated, monitored, or treated as if it exists) are acceptable and can be coded in the inpatient se tting, when documented at the time of discharge. Please use your independent medical judgment in providing your response. THIS QUERY IS PART OF THE PERMANENT MEDICAL RECORD
[2024-09-10 10:48] VITALS: O2SAT 90
[2024-09-10 11:36] VITALS: BP 156/83; PULSE 80; RESP 20; TEMP 36.9; O2SAT 90
[2024-09-10] MEDS: methylPREDNISolone Sod Succ 40 MG/ML VIAL IVPUSH (15:16)
[2024-09-10] MEDS: cefTRIAXone sodium 1 GM VIAL IVPUSH (15:16)
--- NOTE | 2024-09-10 15:59 | PM.CNNEP ---
History of Present Illness Reason for Consult Consult date: 09/10/24 Chief Complaint Chief complaint: Hypoxia, Anemia History of Present Illness Narrative: ESRD MWF PT adm with incr Resp Sxms and Dx'd with RSV Urgent HD yesterday with improvement in resp sxms Wantds to go [facility] pretty is to do additional HD today to get back on MWF and then d/c home if stable Recent viusit to [place] and got sick on return from [place] Review of Systems Review of Systems No fever, chills but reporting weakness No chest pain, palpitation having shortness of breath wheezing and coughing No abdominal pain, nausea or vomiting No urinary symptoms No wounds Yes all other systems are reviewed and are negative PMFSH Past Medical History Medical History HTN (hypertension) ESRD (end stage renal disease) Creatinine elevation Urinary retention History of upper gastrointestinal bleeding A-V fistula Fusion of lumbar spine Chronic kidney disease Urinary tract infection Enlarged prostate Kidney disease Elevated PSA Anemia Metabolic acidosis Bilateral hydronephrosis Hypocalcemia Acute anemia Acute kidney injury Surgical History Surgical History History of fusion of cervical spine Hx of esophagogastroduodenoscopy History of transurethral resection of prostate S/P arteriovenous (AV) fistula creation History of hip replacement, total Social History Social History Household Members: Family Household Members Other:: sisterr Housing: House Housing Other:: mobile home Do you presently have visiting nurse or other home services: No Alcohol intake: former Patient Tobacco Use Status: Former Tobacco user Tobacco use type: Cigarette Years Smoked: 50 Smoked in Last 30 Days: No e-Cigarette/Vaping Use: Former Use Patient Interested in Nicotine Replacement: No Use of substances other than those prescribed or required for medical reasons: Yes Substance Use Type: Marijuana Currently Displaying Signs/Symptoms of Drug Intoxication Withdrawal: No Have you been hit, kicked, punched, or otherwise hurt by someone within the past year? If so, by whom?: No Do you feel safe in your current relationship?: No Current Relationship Is there a partner from a previous relationship who is making you feel unsafe now?: No Are you made to feel afraid or neglected: No Advance Directives: No Advance Directives Information Provided: No Do you have a plan to hurt others: No Plan Recently lost weight without trying: No Eating poorly because of decreased appetite: No Nutrition Risks: No Nutritional Risk service: No Current occupational status: disabled Meds Allergies Allergy/AdvReac Type Severity Reaction Status Date / Time No Known Allergies Allergy Verified 09/08/24 09:34 [No Known Allergies*] Active Medications: Current Medications Acetaminophen (Acetaminophen 325 Mg Tablet) 650 mg PO Q6H PRN PRN Reason: Pain, Mild 1-3,fever,headache Last Admin: 09/09/24 21:25 Dose: 650 mg Albuterol Sulfate (Albuterol Sulfate (0.083%) 2.5 Mg/3 Ml Vial.Neb) 2.5 mg INHALE Q4H PRN PRN Reason: Shortness of Breath/Wheezing Albuterol/Ipratropium (Albuterol/Iprat 2.5/0.5mg 3 Ml Ampul.Neb) 3 ml INHALE Q6H [facility] Last Admin: 09/10/24 13:17 Dose: Not Given Amlodipine Besylate (Amlodipine Besylate 10 Mg Tablet) 10 mg PO BEDTIME [facility]; Protocol Last Admin: 09/09/24 21:12 Dose: 10 mg Atorvastatin Calcium (Atorvastatin Calcium 20 Mg Tablet) 20 mg PO BEDTIME [facility] Last Admin: 09/09/24 21:12 Dose: 20 mg Calcium Acetate (Calcium Acetate 667 Mg Capsule) 1,334 mg PO TIDWM [facility] Last Admin: 09/10/24 12:18 Dose: 1,334 mg Calcium Carbonate (Calcium Carbonate 750 Mg Tab.Chew) 750 mg PO Q4H PRN PRN Reason: Heartburn Ceftriaxone Sodium (Ceftriaxone Sodium 1 Gm Vial) 1 gm IVPUSH Q24H [facility] Last Admin: 09/10/24 15:16 Dose: 1 gm Ferrous Sulfate (Ferrous Sulfate 324 Mg Tablet.Dr) 324 mg PO DAILY [facility] Last Admin: 09/10/24 09:03 Dose: 324 mg Guaifenesin (Guaifenesin 200 Mg/10 Ml 10 Ml Liquid) 10 ml PO Q4H PRN PRN Reason: Cough Last Admin: 09/10/24 09:13 Dose: 10 ml Guaifenesin/Dextromethorphan (Guaifenesin Dm 600/30 1 Tab Tab.Er.12h) 2 tab PO BID [facility] Last Admin: 09/10/24 09:03 Dose: 2 tab Hydralazine HCl (Hydralazine Hcl 50 Mg Tablet) 100 mg PO BID [facility]; Protocol Last Admin: 09/10/24 09:03 Dose: 100 mg Ferric Sodium Gluconate Complex 125 mg/ Sodium Chloride 110 mls @ 100 mls/hr IV Q24H [facility] Stop: 09/10/24 21:05 Last Infusion: 09/09/24 22:20 Dose: Infused Doxycycline Hyclate 100 mg/ (Sodium Chloride) 250 mls @ 166.67 mls/hr IV Q12H [facility] Last Infusion: 09/10/24 05:34 Dose: Infused Magnesium Hydroxide (Milk Of Magnesia 30 Ml Oral.Susp) 30 ml PO DAILY PRN PRN Reason: Constipation Melatonin (Melatonin 3 Mg Tablet) 6 mg PO BEDTIME PRN PRN Reason: Insomnia Methylprednisolone Sodium Succinate (Methylprednisolone Sod Succ 40 Mg/Ml Vial) 40 mg IVPUSH Q24H [facility] Last Admin: 09/10/24 15:16 Dose: 40 mg Non-Formulary Medication (Abiraterone) 1,000 mg PO BEDTIME [facility] Last Admin: 09/09/24 21:13 Dose: Not Given Ondansetron HCl (Ondansetron Hcl 4 Mg/2 Ml Vial) 4 mg IVPUSH Q8H PRN PRN Reason: Nausea and Vomiting Pantoprazole Sodium (Pantoprazole Sodium 40 Mg/10 Ml Vial) 40 mg IVPUSH DAILY@0630 [facility] Last Admin: 09/10/24 05:50 Dose: 40 mg Ropinirole HCl (Ropinirole Hcl 2 Mg Tablet) 2 mg PO TID [facility] Last Admin: 09/10/24 14:29 Dose: 2 mg Sodium Chloride (0.9 % Sodium Chloride Flush 3 Ml Syringe) 3 ml IVFLUSH QSHIFT [facility] Last Admin: 09/10/24 15:16 Dose: 3 ml Home Medications ?Medication ?Instructions ?Recorded ?Confirmed ?Last Taken ?Type blood pressure test kit-large #1 ea 03/18/22 09/08/24 09/07/24 History amlodipine 10 mg tablet 10 mg PO BEDTIME 12/17/22 09/08/24 09/07/24 History ropinirole 2 mg tablet 2 mg PO TID 0109/08/24 09/07/24 History abiraterone 250 mg tablet 1,000 mg PO BEDTIME 09/08/24 09/08/24 09/07/24 History albuterol sulfate 90 mcg/actuation 2 puff inhalation Q4H PRN wheezing 09/08/24 09/08/24 Unknown History aerosol inhaler (Ventolin HFA) calcium acetate(phosphat bind) 667 1,334 mg PO TIDWM 09/08/24 09/08/24 09/07/24 History mg capsule efinaconazole 10 % topical 1 appl topical DAILY 09/08/24 09/08/24 09/07/24 History solution with applicator (Jublia) hydralazine 50 mg tablet 100 mg PO BID 09/08/24 09/08/24 09/07/24 History prednisone 5 mg tablet 5 mg PO DAILY 09/08/24 09/08/24 09/07/24 History rosuvastatin 5 mg tablet 5 mg PO BEDTIME 09/08/24 09/08/24 09/07/24 History Physical Exam Vital Signs: Last Vital Signs Temp 98.5 F 09/10/24 11:36 Pulse 80 09/10/24 11:36 Resp 20 09/10/24 11:36 BP 156/83 H 09/10/24 11:36 Pulse Ox 90 L 09/10/24 11:36 O2 Del Method Room Air 09/10/24 11:36 O2 Flow Rate 3 09/10/24 08:00 FiO2 50 09/09/24 07:32 BMI result Body Mass Index 24.6 Const Other: Constitutional : Awake, interactive, not in distress Neck : Normal inspection, Supple Cardiovascular : RRR, no JVP, no lower extremity edema Respiratory : good bilateral air entry, bilateral expiratory wheezes, on O2 supplement Gastrointestinal: soft, lax, Normal bowel sounds, Non tender Skin : Warm, Dry Neurological : Alert & oriented x3, No focal deficit Results Lab Results 09/09/24 05:47 09/09/24 05:47 Lab results: Chemistry 09/08/24 09/09/24 10:25 05:47 Sodium 135 134 L Potassium 3.1 L 3.3 Carbon Dioxide 26 24 BUN 17 H 28 H Creatinine 3.90 H 5.67 H* Calcium 9.5 9.2 Hematology 09/08/24 09/09/24 10:25 05:47 WBC 6.9 10.0 Hgb 7.0 L* D 8.0 L Plt Count 191 200 Assessment and Plan (1) Symptomatic anemia: Status: Acute (2) Acute on chronic anemia: Status: Acute (3) Hypoxia: Status: Acute (4) Acute bronchitis: Status: Acute (5) Acute respiratory failure with hypoxia: Status: Acute (6) Acute bronchitis due to Rhinovirus: Status: Acute Plan A 64 years old male with PMH of metastatic prostate CA to bone, chronic anemia, ESRD on HD MWF, HTN who presents to the hospital with worsening SOB and fatigue over the last week found to be Anemia and hypoxic. 1. SOB: d/t RSV and anemia improved with HD and Xfusion 2. ESRD: HD todayt to get back on MWF scheduel 3. MBD of CKD 4. Anemia: chrinic and acute drop: s/p xfusion REC: HD today and then if stable d/c to home Procedures Date of Service Date of Service: 09/10/24
--- NOTE | 2024-09-10 16:04 | PM.DS ---
DS: Providers Provider Date of Service: 09/10/24 Date of admission: 09/08/24 18:02 Date of discharge: 09/10/24 Primary care physician: CORINNE Echevarria Consults: 09/09/24 08:09 Consult to Nephrology Routine Consulting Provider: [facility] Reason for consultation: Hypoxemia, fluid overload, need Dialysis DS: Diagnosis Discharge Diagnosis (1) Symptomatic anemia: Status: Acute (2) Acute on chronic anemia: Status: Acute (3) Hypoxia: Status: Acute (4) Acute bronchitis: Status: Acute (5) Acute respiratory failure with hypoxia: Status: Acute (6) Acute bronchitis due to Rhinovirus: Status: Acute DS: Summary Hospital Course Hospital Course: Admission note HPI A 64 years old male with PMH of metastatic prostate CA to bone, chronic anemia, ESRD on HD MWF, HTN who presents to the hospital with worsening SOB and fatigue over the last week found to be Anemia and wheezy. The patient reports worsening cough, wheezing, SOB, weakness and having no energy over the last 2 days that started one week ago. He tested negative for Covid but did not check Flu but felt he got those symptoms. No chest pain, palpitations, nausea, vomiting, diarrhea or urinary symptoms. He denies any bleeding or melena. refused rectal exam. In ED found to be hypoxic around 86% on presentation responded to O2 supplement. Hb of 7 from baseline >8.5. transfused one unit of blood. Admitted for further evaluation and treatment. Hospital course The patient was treated for Acute hypoxemia secondary to worsening anemia and acute bronchitis with Rhino virus infection as CT scan showing mild amount of bilateral ground-glass opacity. Subsegmental atelectasis versus linear scarring. V\Q scan done and negative. required High flow O2 overnight which was weaned down as he was treated with steroids, nebulizers ATC and PRN with good response over the course of hospital stay. He had 2 sessions of dialysis which took a lot of congestion from his chest and was able to ambulate on room air with no reported dyspnea. He was noted to have Acute on chronic anemia could be secondary to CKD on HD or blood loss as he has low Iron stores to give Iron supplement. refused WI exam and did not offer occult stool sample. Transfused 1 unit of blood with improvement to 8. Noticed to have Gallbladder wall thickening discussed with surgery, MOHIT AGUAYO as findings likely related to being on dialysis and fluid status Discharge plan Prednisone as prescribed Dialysis as planned Time Attestation Discharge Coordination Time (in mins): 42 Quality: Safe Use of Opioids Does Pt have an Active Cancer Diagnosis on the Problem List?: No Quality: Stroke Does the patient have a stroke diagnosis?: No Physical Exam Vital Signs: Vital Signs: Last Vital Signs Temp 98.5 F 09/10/24 11:36 Pulse 80 09/10/24 11:36 Resp 20 09/10/24 11:36 BP 156/83 H 09/10/24 11:36 Pulse Ox 90 L 09/10/24 11:36 O2 Del Method Room Air 09/10/24 11:36 O2 Flow Rate 3 09/10/24 08:00 FiO2 50 09/09/24 07:32 BMI result Body Mass Index 24.6 Const: Other: Constitutional : Awake, interactive, not in distress Neck : Normal inspection, Supple Cardiovascular : RRR, no JVP, no lower extremity edema Respiratory : good bilateral air entry, no expiratory wheezes, on RA Gastrointestinal: soft, lax, Normal bowel sounds, Non tender Skin : Warm, Dry Neurological : Alert & oriented x3, No focal deficit DS: Data Data Completed and Pending Completed studies during hospitalization [Text1]: Procedures Dilation of Bilateral Ureters, Via Natural or Artificial Opening Endoscopic (04/01/21) Drainage of Left Kidney Pelvis with Drainage Device, Percutaneous Approach (04/01/21) Drainage of Right Kidney Pelvis with Drainage Device, Percutaneous Approach (04/01/21) Excision of Prostate, Via Natural or Artificial Opening, Diagnostic (05/28/21) Fluoroscopy of Kidneys, Ureters and Bladder (04/01/21) Insertion of Infusion Device into Superior Vena Cava, Percutaneous Approach (05/28/21) Insertion of Tunneled Vascular Access Device into Chest Subcutaneous Tissue and Fascia, Percutaneous Approach (05/28/21) Performance of Urinary Filtration, Intermittent, Less than 6 Hours Per Day (08/04/23) Transfusion of Nonautologous Red Blood Cells into Peripheral Vein, Percutaneous Approach (05/28/21) Labs on day of discharge: Laboratory Results - last 24 hr 09/08/24 10:25 Smear Path Review SEE NOTE Preliminary micro results at discharge 09/08/24 10:25 Blood Culture - Preliminary Blood - Venous No growth after 48 hours. 09/08/24 10:24 Blood Culture - Preliminary Blood - Venous No growth after 48 hours. Imaging Chest x-ray: Radiologist's impression: Findings: Similar vascular congestion, pulmonary edema, small bilateral pleural effusions [id number]. Mild atelectatic basilar lung changes. Stable cardiomegaly. Normal mediastinal contour. Bones unchanged with arthritic changes both shoulders. Upper abdomen unremarkable. Impression: Similar congestive changes. V\Q scan IMPRESSION: No perfusion defects. This document has been electronically signed by: Solange Mosqueda MD on 09/09/2024 08:33:03 Discharge Plan Discharge Anticipated Discharge Date/Time: 09/10/24 18:00 Patient Disposition: Home, Self-Care Discharge Diagnosis: Rhinovirus bronchitis Fluid overload Referrals: Andie Whitmore FNP [Primary Care Provider] - 1 Week Discharge Medications: New Mucus DM 30-600 mg Tablet Extended Release 12 Hr 2 tab PO BID Qty: 20 1RF ferrous sulfate 324 mg (65 mg iron) Tablet,Delayed Release (Dr/Ec) 324 mg PO DAILY Qty: 90 0RF prednisone 20 mg tablet 40 mg PO DAILY Qty: 10 0RF Continued ropinirole 2 mg tablet 2 mg PO TID Rx Instructions: ADDITIONAL FOR BEFORE DIAYLSIS calcium acetate(phosphat bind) 667 mg capsule 1,334 mg PO TIDWM hydralazine 50 mg tablet 100 mg PO BID albuterol sulfate [Ventolin HFA] 90 mcg/actuation HFA aerosol inhaler 2 puff inhalation Q4H PRN (Reason: wheezing) rosuvastatin 5 mg tablet 5 mg PO BEDTIME Jublia 10 % solution with applicator 1 appl topical DAILY prednisone 5 mg tablet 5 mg PO DAILY abiraterone 250 mg tablet 1,000 mg PO BEDTIME Rx Instructions: must be taken on empty stomach, at least 1 hr before or 2 hrs after a meal/food (DME) blood pressure test kit-large Kit See Rx Instructions .ROUTE DAILY Qty: 1 Rx Instructions: As directed amlodipine 10 mg tablet 10 mg PO BEDTIME Discharge Orders: Discharge Order (Routine); Ordered 09/10/24 Ordered By: Jer Bermudez Diet: Advance to usual diet Activity on Discharge: As tolerated Stand Alone Forms: Patient Portal Discharge page Print Language: Mauritanian Care Plan Goals: Continue PRednisone as prescribed cough medicine as needed Iron supplement daily or discuss IV iron with dialysis by nephrology continue dialysis as scheduled Health Concerns: rhinovirus infection Plan of Treatment: Steroids, Assessment: as above Discharge Date/Time: 09/10/24 18:46
--- NOTE | 2024-09-10 16:23 | P.PNIM_ITS ---
Subjective Subjective Date of Service: 09/10/24 Physical Exam 2 Vital Signs: Vital Signs: Last Vital Signs Temp 98.5 F 09/10/24 11:36 Pulse 80 09/10/24 11:36 Resp 20 09/10/24 11:36 BP 156/83 H 09/10/24 11:36 Pulse Ox 90 L 09/10/24 11:36 O2 Del Method Room Air 09/10/24 11:36 O2 Flow Rate 3 09/10/24 08:00 FiO2 50 09/09/24 07:32 BMI result Body Mass Index 24.6 Objective Data Active Medications Acetaminophen (Acetaminophen 325 Mg Tablet) 650 mg PO Q6H PRN PRN Reason: Pain, Mild 1-3,fever,headache Last Admin: 09/09/24 21:25 Dose: 650 mg Documented By: ARIK Albuterol Sulfate (Albuterol Sulfate (0.083%) 2.5 Mg/3 Ml Vial.Neb) 2.5 mg INHALE Q4H PRN PRN Reason: Shortness of Breath/Wheezing Albuterol/Ipratropium (Albuterol/Iprat 2.5/0.5mg 3 Ml Ampul.Neb) 3 ml INHALE Q6H [facility] Last Admin: 09/10/24 13:17 Dose: Not Given Documented By: ISABEL Non-Admin Reason: Patient Refused Amlodipine Besylate (Amlodipine Besylate 10 Mg Tablet) 10 mg PO BEDTIME [facility]; Protocol Last Admin: 09/09/24 21:12 Dose: 10 mg Documented By: ARIK Atorvastatin Calcium (Atorvastatin Calcium 20 Mg Tablet) 20 mg PO BEDTIME [facility] Last Admin: 09/09/24 21:12 Dose: 20 mg Documented By: ARIK Calcium Acetate (Calcium Acetate 667 Mg Capsule) 1,334 mg PO TIDWM [facility] Last Admin: 09/10/24 12:18 Dose: 1,334 mg Documented By: BRYAN Calcium Carbonate (Calcium Carbonate 750 Mg Tab.Chew) 750 mg PO Q4H PRN PRN Reason: Heartburn Ceftriaxone Sodium (Ceftriaxone Sodium 1 Gm Vial) 1 gm IVPUSH Q24H [facility] Last Admin: 09/10/24 15:16 Dose: 1 gm Documented By: BRYAN Ferrous Sulfate (Ferrous Sulfate 324 Mg Tablet.) 324 mg PO DAILY [facility] Last Admin: 09/10/24 09:03 Dose: 324 mg Documented By: BRYAN Guaifenesin (Guaifenesin 200 Mg/10 Ml 10 Ml Liquid) 10 ml PO Q4H PRN PRN Reason: Cough Last Admin: 09/10/24 09:13 Dose: 10 ml Documented By: BRYAN Guaifenesin/Dextromethorphan (Guaifenesin Dm 600/30 1 Tab Tab.Er.12h) 2 tab PO BID [facility] Last Admin: 09/10/24 09:03 Dose: 2 tab Documented By: BRYAN Hydralazine HCl (Hydralazine Hcl 50 Mg Tablet) 100 mg PO BID [facility]; Protocol Last Admin: 09/10/24 09:03 Dose: 100 mg Documented By: BRYAN Ferric Sodium Gluconate Complex 125 mg/ Sodium Chloride 110 mls @ 100 mls/hr IV Q24H [facility] Stop: 09/10/24 21:05 Last Infusion: 09/09/24 22:20 Dose: Infused Documented By: ARIK Doxycycline Hyclate 100 mg/ (Sodium Chloride) 250 mls @ 166.67 mls/hr IV Q12H [facility] Last Infusion: 09/10/24 05:34 Dose: Infused Documented By: BELINDA Magnesium Hydroxide (Milk Of Magnesia 30 Ml Oral.Susp) 30 ml PO DAILY PRN PRN Reason: Constipation Melatonin (Melatonin 3 Mg Tablet) 6 mg PO BEDTIME PRN PRN Reason: Insomnia Methylprednisolone Sodium Succinate (Methylprednisolone Sod Succ 40 Mg/Ml Vial) 40 mg IVPUSH Q24H [facility] Last Admin: 09/10/24 15:16 Dose: 40 mg Documented By: BRYAN Non-Formulary Medication (Abiraterone) 1,000 mg PO BEDTIME [facility] Last Admin: 09/09/24 21:13 Dose: Not Given Documented By: ARIK Non-Admin Reason: Pt needs to provide from home. Ondansetron HCl (Ondansetron Hcl 4 Mg/2 Ml Vial) 4 mg IVPUSH Q8H PRN PRN Reason: Nausea and Vomiting Pantoprazole Sodium (Pantoprazole Sodium 40 Mg/10 Ml Vial) 40 mg IVPUSH DAILY@0630 [facility] Last Admin: 09/10/24 05:50 Dose: 40 mg Documented By: BELINDA Ropinirole HCl (Ropinirole Hcl 2 Mg Tablet) 2 mg PO TID [facility] Last Admin: 09/10/24 14:29 Dose: 2 mg Documented By: BRYAN Sodium Chloride (0.9 % Sodium Chloride Flush 3 Ml Syringe) 3 ml IVFLUSH QSHIFT [facility] Last Admin: 09/10/24 15:16 Dose: 3 ml Documented By: BRYAN Labs 09/09/24 05:47 09/09/24 05:47 Labs: Laboratory Results - last 24 hr 09/08/24 10:25 Smear Path Review SEE NOTE Microbiology Microbiology Results: Microbiology 09/08/24 10:25 Blood Culture - Preliminary Blood - Venous No growth after 48 hours. 09/08/24 10:24 Blood Culture - Preliminary Blood - Venous No growth after 48 hours. Quality Stroke Does the patient have a stroke diagnosis?: No VTE Prior VTE?: No VTE Risk Level:: Medical - moderate - high VTE Device Contraindication: N/A - Device Ordered VTE Drug Contraindication: Treatment Not Indicated
[2024-09-10 18:20] VITALS: BP 142/80; PULSE 92; RESP 18; TEMP 36.2; O2SAT 90
--- NOTE | 2024-09-11 10:23 | MHC.CM.PN ---
Late entry for 09/10: Pt was medically cleared for discharge home self-care, he arranged his own transport home.
== END 2024-09-10 18:46 | disposition home or self-care (01) | DRG 202 ==
LOC: HO.ED 16:40 → HO.EDOVER 18:17 → HO.IMC 19:36
PROVIDERS: Physician Assistant; Admitting Provider Student in an Organized Health Care Education/Training Program; Emergency Provider Emergency Medicine; PCP Registered Nurse; Visit Provider Student in an Organized Health Care Education/Training Program
DX: J20.6 Acute bronchitis due to rhinovirus (principal); J96.01 Acute respiratory failure with hypoxia; N18.6 End stage renal disease; I12.0 Hypertensive chronic kidney disease with stage 5 chronic kidney disease or end stage renal disease; J98.11 Atelectasis; G25.81 Restless legs syndrome; D63.1 Anemia in chronic kidney disease; Z99.2 Dependence on renal dialysis; D50.9 Iron deficiency anemia, unspecified; N25.0 Renal osteodystrophy; Z87.891 Personal history of nicotine dependence; Z20.822 Contact with and (suspected) exposure to COVID-19; Z79.899 Other long term (current) drug therapy
CPT/HCPCS: 0241U; 36415; 71045; 71250; 78580; 80048; 80053; 82803; 83540; 83605; 83735; 83880; 85025; 86850; 86900; 86901; 86923; 87040; 87633; 90999; 93005; 94640; 99285; A9540; J0696; J2470; J2916; J2919; P9016

== ENCOUNTER → 2024-09-08 10:01 | Outpatient (BNV) | payer MEDICARE, MEDICAID, SELFPAY | PROVIDERS: Emergency Provider Emergency Medicine; PCP Registered Nurse; Visit Provider Student in an Organized Health Care Education/Training Program | DX: J20.6 Acute bronchitis due to rhinovirus (principal); J96.01 Acute respiratory failure with hypoxia; D64.9 Anemia, unspecified | CPT/HCPCS: 99223; 99232 ==

== ENCOUNTER → 2024-09-08 10:21 | Outpatient (BNV) | payer MEDICARE, MEDICAID, SELFPAY | PROVIDERS: Admitting Provider Student in an Organized Health Care Education/Training Program; Emergency Provider Emergency Medicine; PCP Registered Nurse; Visit Provider Internal Medicine Cardiovascular Disease | DX: I49.3 Ventricular premature depolarization (principal); I51.7 Cardiomegaly | CPT/HCPCS: 93010 ==

== ENCOUNTER → 2024-09-08 11:06 | Outpatient (BNV) | payer MEDICARE, MEDICAID, SELFPAY | PROVIDERS: Emergency Provider Emergency Medicine; PCP Registered Nurse; Visit Provider Radiology Diagnostic Radiology | DX: R18.8 Other ascites (principal) | CPT/HCPCS: 71250 ==

== ENCOUNTER 2024-09-08 18:02 | Outpatient (BNV) | payer MEDICARE, MEDICAID, SELFPAY | END 2024-09-09 07:54 | PROVIDERS: Admitting Provider Student in an Organized Health Care Education/Training Program; Emergency Provider Emergency Medicine; PCP Registered Nurse; Visit Provider Radiology Diagnostic Radiology | DX: R09.02 Hypoxemia (principal) | CPT/HCPCS: 71045 ==

== ENCOUNTER 2024-10-11 10:20 | Outpatient (REF) | payer MEDICARE, MEDICAID, SELFPAY ==
--- OUTSIDE RECORDS SUMMARY | 2024-10-11 12:53 | XMS_ITS | Encounter Summary ---
Author Organization [facility] Address [address] [address] Phone Care Team Providers Care Mohel Name Role Phone Unavailable Primary Care Provider Unavailabl e Encounter Details Date Type Department Care Team ([facility] st Contact Info) Description 09/28/2024 Treatment [facility]. [address] [id number] Clinton Ortega MD [address] [id number] End stage renal disease; Dependence on renal dialysis Social History Tobacco Use Types Packs/Day Years Used Date Smoking Tobacco: Former Comments:Smoking History Inf o:Every day Sex and Gender Information Value Date Recorded Sex Assigned at Not on file Legal Sex Male 4:53 PM EST Gender Identity Not on file Sexual Orientation Not on file documented as of this encounter Miscellaneous Notes * Dialysis Note - Clinton Ortega MD - 09/28/2024 12:00 AM EST Patient: Darwin Stahl : 1960 Note Type: Dialysis Rounds-Basic Telehealth Service Date: 09/28/2024 Telehealth encounter using audiovisual technology, performed according to state requirements. Appropriate patient consent obtained. This patient was personally seen for a basic visit as part of routine monthly dialysis care for end stage renal disease. Attending Sybase Developer: CLINTON ORTEGA MD Dialysis Location: [facility] Schedule: Shift: 1 ADEQUACY ASSESSMENT Kt/V, Natural Log 1.57 (09/05/24) 1.35 (08/31/24) 1.76 (07/04/24) UREA REDUCTION RATIO (%) 75 (09/05/24) 69 (08/31/24) 76 (07/04/24) BUN 36 (09/05/24) 75 (08/31/24) 63 (07/04/24) BUN Post Dialysis 9 (09/05/24) 23 (08/31/24) 15 (07/04/24) Creatinine 6.52 (09/05/24) 7.57 (08/31/24) 6.64 (07/04/24) Bicarbonate (CO2) 22 (09/05/24) 23 (08/31/24) 22 (07/04/24) Sodium 128 (09/05/24) 132 (08/31/24) 130 (07/04/24) ANEMIA ASSESSMENT Hgb 9.3 (09/19/24) 8.3 (09/05/24) 7.8 (08/31/24) Iron Saturation (TSat) 27 (09/05/24) 29 (08/31/24) 13 (07/04/24) Ferritin 1,253 (09/05/24) 1,120 (08/31/24) 579 (07/04/24) Iron 57 (09/05/24) 60 (08/31/24) 25 (07/04/24) TIBC 214 (09/05/24) 204 (08/31/24) 196 (07/04/24) MCV 83.4 (09/05/24) 83.0 (08/31/24) 86.4 (07/04/24) Platelets 244 (09/05/24) 247 (08/31/24) 223 (07/04/24) BMM ASSESSMENT Calcium, Adjusted Total 9.6 09/14/24 10.1 09/05/24 9.7 08/31/24 Calcium 9.6 09/14/24 10.1 09/05/24 9.7 08/31/24 Phosphorus, Serum 7.4 09/19/24 3.4 09/14/24 7.7 09/05/24 Ca*PO4 32.6 09/14/24 77.8 09/05/24 110.6 08/31/24 PTH, Intact 64 09/05/24 120 08/31/24 536 07/04/24 Magnesium 2.2 09/05/24 2.3 08/31/24 2.3 07/04/24 Alkaline Phosphatase 99 09/05/24 71 08/31/24 58 07/04/24 Aluminum 5 08/31/24 NUTRITION ASSESSMENT Albumin 4.3 09/14/24 4.3 09/05/24 4.0 08/31/24 Potassium 4.8 09/26/24 5.8 09/19/24 4.0 09/12/24 ADDITIONAL LABS White Blood Cells 9.0 (09/05/24) 8.4 (08/31/24) 10.1 (07/04/24) Cholesterol 158 (08/31/24) HDL 56 (08/31/24) LDL-Calc 91 (08/31/24) Triglycerides 56 (08/31/24) Hep B Surface Antibody <4 (09/12/24) <4 (07/20/24) <4 (07/04/24) Uric Acid 5.4 (08/31/24) ADDITIONAL COMMENT COMMENTS: 09/21/24 stable 09/24/24 doing ok 09/28/24 stable 07/16/24 stable 07/31/24 no new issues 08/03/24 doing ok 04/04/24 stable 04/16/24 stable 04/25/24 no new issues 05/07/24 stable 05/14/24 incr bp, refuses bp meds 05/21/24 stable 06/04/24 no new issues 06/1524 c/o restless legs despite on requip 06/20/24 same issues-- has appt w neuro 06/26/24 stable 07/02/24 doing ok 07/09/24 stable Signed by: CLINTON ORTEGA MD on 09/28/2024 at 10:59:03 PM documented in this encounter Plan of Treatment Not on file documented as of this encounter Visit Diagnoses Diagnosis End stage renal disease Dependence on renal dialysis documented in this encounter
--- OUTSIDE RECORDS SUMMARY | 2024-10-11 12:53 | XMS_ITS | Encounter Summary ---
Author Organization [facility] Address [address] [address] Phone Care Team Providers Care Pilot Supervisor Name Role Phone Unavailable Primary Care Provider Unavailabl e Encounter Details Date Type Department Care Team ([facility] st Contact Info) Description 09/19/2024 Treatment [facility]. [address] [phone] Clinton Ortega MD [address] [address] Social History Tobacco Use Types Packs/Day Years Used Date Smoking Tobacco: Former Comments:Smoking History Inf o:Every day Sex and Gender Information Value Date Recorded Sex Assigned at Not on file Legal Sex Male 4:53 PM EST Gender Identity Not on file Sexual Orientation Not on file documented as of this encounter Miscellaneous Notes * Dialysis Note - Clinton Ortega MD - 09/19/2024 12:00 AM EST Patient: Darwin Stahl : 1960 Note Type: Dialysis Rounds-Basic Telehealth Service Date: 09/19/2024 Telehealth encounter using audiovisual technology, performed according to state requirements. Appropriate patient consent obtained. This patient was personally seen for a basic visit as part of routine monthly dialysis care for end stage renal disease. Attending Online Community Manager: CLINTON ORTEGA MD Dialysis Location: [facility] Schedule: Shift: 1 ADEQUACY ASSESSMENT Kt/V, [...] 09/14/24 10.1 09/05/24 9.7 08/31/24 Phosphorus, Serum 3.4 09/14/24 7.7 09/05/24 11.4 08/31/24 Ca*PO4 32.6 09/14/24 77.8 09/05/24 110.6 08/31/24 PTH, Intact 64 09/05/24 120 08/31/24 536 07/04/24 Magnesium 2.2 09/05/24 2.3 08/31/24 2.3 07/04/24 Alkaline Phosphatase 99 09/05/24 71 08/31/24 58 07/04/24 Aluminum 5 08/31/24 NUTRITION ASSESSMENT Albumin 4.3 09/14/24 4.3 09/05/24 4.0 08/31/24 Potassium 4.0 09/12/24 3.8 09/05/24 4.6 08/31/24 ADDITIONAL LABS White Blood Cells 9.0 (09/05/24) 8.4 (08/31/24) 10.1 (07/04/24) Cholesterol 158 (08/31/24) HDL 56 (08/31/24) LDL-Calc 91 (08/31/24) Triglycerides 56 (08/31/24) Hep B Surface Antibody <4 (09/12/24) <4 (07/20/24) <4 (07/04/24) Uric Acid 5.4 (08/31/24) ADDITIONAL COMMENT COMMENTS: 09/21/24 stable 07/16/24 stable 07/31/24 no new issues 08/03/24 doing ok 04/04/24 stable 04/16/24 stable 04/25/24 no new issues 05/07/24 stable 05/14/24 incr bp, refuses bp meds 05/21/24 stable 06/04/24 no new issues 06/1524 c/o restless legs despite on requip 06/20/24 same issues-- has appt w neuro 06/26/24 stable 07/02/24 doing ok 07/09/24 stable Signed by: CLINTON ORTEGA MD on 09/21/2024 at 06:35:31 PM documented in this encounter Plan of Treatment Not on file documented as of this encounter Visit Diagnoses Not on filedocumented in this encounter
--- OUTSIDE RECORDS SUMMARY | 2024-10-11 12:53 | XMS_ITS | Encounter Summary ---
Author Organization [facility] Address [address] [facility] [address] [address] Phone Care Team Providers Care Head Of Human Resources Name Role Phone Unavailable Primary Care Provider Unavailabl e Reason for Visit * Reason Onset Date Comments Med Refill 07/17/2021 Encounter Details Date Type Department Care Team (Late st Contact Info) Description 07/17/2021 Refill [facility] [address] [place] [phone] Radha Palmer [address] [facility] [address] [facility] [address] [place] [address] Social History Tobacco Use Types [...]
--- OUTSIDE RECORDS SUMMARY | 2024-10-11 12:53 | XMS_ITS | Encounter Summary ---
Author Organization [facility] Address [address] [address] Phone Care Team Providers Care Cold Work Operator Name Role Phone Unavailable Primary Care Provider Unavailabl e Encounter Details Date Type Department Care Team ([facility] st Contact Info) Description 09/27/2024 Treatment [facility]. [address] [phone] Clinton Ortega MD [address] [phone] Social History Tobacco Use Types Packs/Day Years Used Date Smoking Tobacco: Former Comments:Smoking History Inf o:Every day Sex and Gender Information Value Date Recorded Sex Assigned at Not on file Legal Sex Male 4:53 PM EST Gender Identity Not on file Sexual Orientation Not on file documented as of this encounter Miscellaneous Notes * Dialysis Note - Clinton Ortega MD - 09/27/2024 12:00 AM EST Patient: Darwin Stahl : 1960 Note Type: Dialysis Rounds-Basic Telehealth Service Date: 09/27/2024 Telehealth encounter using audiovisual technology, performed according to state requirements. Appropriate patient consent obtained. This patient was personally seen for a basic visit as part of routine monthly dialysis care for end stage renal disease. Attending Mounter Clarinets: CLINTON ORTEGA MD Dialysis Location: [facility] Schedule: Shift: 1 ADEQUACY ASSESSMENT [...] 4.3 09/14/24 4.3 09/05/24 4.0 08/31/24 Potassium 5.8 09/19/24 4.0 09/12/24 3.8 09/05/24 ADDITIONAL LABS White Blood Cells 9.0 (09/05/24) 8.4 (08/31/24) 10.1 (07/04/24) Cholesterol 158 (08/31/24) HDL 56 (08/31/24) LDL-Calc 91 (08/31/24) Triglycerides 56 (08/31/24) Hep B Surface Antibody <4 (09/12/24) <4 (07/20/24) <4 (07/04/24) Uric Acid 5.4 (08/31/24) ADDITIONAL COMMENT COMMENTS: 09/21/24 stable 09/24/24 doing ok 07/16/24 stable 07/31/24 no new issues 08/03/24 doing ok 04/04/24 stable 04/16/24 stable 04/25/24 no new issues 05/07/24 stable 05/14/24 incr bp, refuses bp meds 05/21/24 stable 06/04/24 no new issues 06/1524 c/o restless legs despite on requip 06/20/24 same issues-- has appt w neuro 06/26/24 stable 07/02/24 doing ok 07/09/24 stable Signed by: CLINTON ORTEGA MD on 09/27/2024 at 04:01:03 AM documented in this encounter Plan of Treatment Not on file documented as of this encounter Visit Diagnoses Not on filedocumented in this encounter
--- OUTSIDE RECORDS SUMMARY | 2024-10-11 12:53 | XMS_ITS | Clinical Summary ---
Author Organization [facility] Address [address] [place] [address] Phone Care Team Providers Care [employer] Name Role Phone Unavailable Primary Care Provider [...] Encounters Date Type Department Care Team Description 09/28/2024 Treatment [facility] [address] [address] Juvenal Cr MD End stage renal disease; Dependence on renal dialysis 09/27/2024 Treatment [facility] [address] [address] Juvenal Cr MD 09/19/2024 Treatment [facility] [address] [address] Juvenal Cr MD 08/31/2024 Orders Only [facility] [address] [address] Juvenal Cr MD 08/03/2024 Treatment [facility] [address] [address] Juvenal Cr MD 07/31/2024 Treatment [facility] [address] [facility] [address] [place] [id number] Juvenal Cr MD 07/24/2024 Treatment [facility] [address] [facility] [address] [place] [address] Juvenal Cr MD from Last 3 Months [...] HEPATITIS B SURFACE ANTIGEN W/REFL CONFIRM Routine 10/03/2024 3:00 AM EST TRANSFERRIN SATURATION Routine 3:00 AM EST PROTEIN, TOTAL, SERUM Routine 10/03/2024 3:00 AM EST MAGNESIUM Routine 10/03/2024 3:00 AM EST ELECTROLYTE PANEL Routine 10/03/2024 3:0 0 AM EST LIH (HC) Routine 10/03/2024 3:00 AM EST LACTATE DEHYDROGENASE Routine 10/03/2024 3:00 AM EST GLUCOSE, RANDOM Routine 10/03/2024 3:00 AM EST CREATININE, SERUM Routine 10/03/2024 3:0 0 AM EST BILIRUBIN, TOTAL Routine 10/03/2024 3:00 AM EST AST Routine 10/03/2024 3:00 AM EST CALCIUM PHOSPHORUS PRODUCT, ADJUSTED (HC) Routine 10/03/2024 3:00 AM EST ALT Routine 10/03/2024 3:00 AM EST ALKALINE PHOSPHATASE Routine 10/03/2024 3:00 AM EST FERRITIN Routine 10/03/2024 3:00 AM EST PTH, INTACT Routine 10/03/2024 3:00 AM EST KT/V NATURAL LOG, URR (HC) Routine 10/03/2024 3:00 AM EST CBC AND DIFFERENTIAL Routine 10/03/2024 3:00 AM EST POTASSIUM Routine 09/26/2024 3:00 AM EST LIH (HC) Routine 09/26/2024 3:00 AM EST PHOSPHATE ( PHOSPHORUS) Routine 09/19/2024 3:00 AM EST LIH () Routine 09/19/2024 3:00 AM EST POTASSIUM Routine 09/19/2024 3:00 AM EST HEMOGLOBIN AND HEMATOCRIT, BLOOD Routine 09/19/2024 3:00 AM EST LIH () Routine 09/14/2024 3:00 AM EST CALCIUM PHOSPHORUS PRODUCT, ADJUSTED () Routine 09/14/2024 3:00 AM EST COLLECTION DATE () Routine 09/14/2024 3:00 AM EST HEP B CORE AB, TOTAL W/REFLEX IGM () Routine 09/12/2024 3:00 AM EST HEPATITIS B SURFACE ANTIGEN W/REFL CONFIRM Routine 09/12/2024 3:00 AM EST HEPATITIS B SURFACE ANTIBODY QUANT Routine 09/12/2024 3:00 AM EST LIH () Routine 09/12/2024 3:00 AM EST POTASSIUM Routine 09/12/2024 3:00 AM EST HEPATITIS B SURFACE ANTIGEN [...] ADJUSTED (HC) Routine 07/13/2024 3:00 AM EST OCCULT BLOOD X 3, STOOL Routine 01/22/2022 from Last 3 Months or Most Recently Relevant to Health Maintenance Results * LIH (10/03/2024 3:00 AM EST) Only the most recent of8 resultswithin the time period is included. Lipemia Normal Normal [facility] Icterus Normal Normal [facility] Hemolysis Normal Normal [facility] 10/03/2024 3:00 AM EST 10/04/2024 3:47 PM EST us Juvenal Cr MD LAB [id number] SOLICITED RESULTS Final Result [facility] [address] [place] [address] * (ABNORMAL) Kt/V Natural Log, URR (10/03/2024 3:00 AM EST) Only the most recent of3 resultswithin the time period is included. Treatment Time 210 min [facility] Pre-Weight, lb 65.2 kg [facility] Post-Weight, lb 63.2 kg [facility] Ultrafiltration Rate 9 <=13 mL/kg/hr [facility] Comment: Recommend achieving Ultrafiltration Rate (UFR) <=10 mL/kg/hr References: Gregory LIN et al. Kidney Int. 2010; 79(2):250-257 BUN 59(H) 7 - 25 mg/dL [facility] BUN Post Dialysis 19 7 - 25 mg/dL [facility] UREA REDUCTION RATIO (%) 68 >=65 % [facility] Kt/V Natural Log 1.31 >=1.2 [facility] 10/03/2024 3:00 AM EST 10/04/2024 3:47 PM EST Juvenal Cr MD LAB [id number] SOLICITED RESULTS Final Result Performing Organization Address [facility] Co de Phone Number [facility] [address] [place] [address] * (ABNORMAL) Calcium Phosphorus Product, Adjusted (10/03/2024 3:00 AM EST) Only the most recent of5 resultswithin the time period is included. Albumin 3.6 3.6 - 5.4 g/dL [facility] Calcium 9.4 8.6 - 10.3 mg/dL [facility] Phosphorus, Serum 8.0(H) 2.5 - 5.0 mg/dL [facility] Ca*PO4 75.2(A) <55.0 mg2/dL2 [facility] Calcium, Adjusted Total 9.7 8.6 - 10.3 mg/dL [facility] CA*PO4 CORRCTD 77.6(A) <55.0 mg2/dL2 [facility] 10/03/2024 3:00 AM EST 10/04/2024 3:47 PM EST Juvenal Cr MD LAB [id number] SOLICITED RESULTS Final Result Performing Organization Address [facility] de Phone Number [facility] [address] [place] [address] * Hepatitis B Surface Ag w/Reflex Confirmation (10/03/2024 3:00 AM EST) Only the most recent of5 resultswithin the time period is included. Hep B Surface Antigen Negative Negative [facility] 10/03/2024 3:00 AM EST 10/04/2024 3:47 PM EST Juvenal Cr MD LAB BLOOD ORDERABLES Final Re sult Performing Organization Address [facility] de Phone Number [facility] [address] [place] [address] * (ABNORMAL) TSAT (10/03/2024 3:00 AM EST) Only the most recent of3 resultswithin the time period is included. [facility] Iron 25(L) 65 - 175 ug/dL [facility] Transferrin 160(L) 215 - 365 mg/dL [facility] TIBC 224 211 - 406 ug/dL [facility] Iron Saturation (TSat) 11(L) 22 - 52 % [facility] 10/03/2024 3:00 AM EST 10/04/2024 3:47 PM EST Juvenal Cr MD LAB BLOOD ORDERABLES Final Re sult Performing Organization Address [facility] de Phone Number [facility] [address] [place] [address] * (ABNORMAL) CBC and Differential (10/03/2024 3:00 AM EST) Only the most recent of3 resultswithin the time period is included. [facility] DIFFERENTIAL MANUAL, 2 Not Indicated [facility] White Blood Cells 7.1 4.2 - 9.1 K/uL [facility] RBC 3.04(L) 4.63 - 6.08 M/uL [facility] Hgb 8.9(L) 13.7 - 17.5 g/dL [facility] Hemoglobin x 3 26.7(L) 41.1 - 52.5 g/dL [facility] Hematocrit 27.8(L) 40.1 - 51.0 % [facility] MCV 91.4 79.0 - 92.2 fL [facility] MCH 29.3 25.7 - 32.2 pg [facility] MCHC 32.0(L) 32.3 - 36.5 g/dL [facility] Platelets 232 163 - 337 K/uL [facility] RDW 18.7(H) 11.6 - 14.4 % [facility] Neutrophils Relative 74.3(H) 34.0 - 67.9 % [facility] Lymphocytes Relative 14.2(L) 21.8 - 53.1 % [facility] Monocytes 7.5 5.3 - 12.2 % [facility] Eosinophils Relative 2.5 0.8 - 7.0 % [facility] Basophils Relative 0.8 0.2 - 1.2 % [facility] Immature Granulocytes 0.7 0.0 - 1.0 % [facility] 10/03/2024 3:00 AM EST 10/04/2024 3:44 PM EST Juvenal Cr MD LAB BLOOD ORDERABLES Final Re sult Performing Organization Address [facility] de Phone Number [facility] [address] [place] [address] * (ABNORMAL) ALT (10/03/2024 3:00 AM EST) Only the most recent of3 resultswithin the time period is included. ALT (SGPT) <7(L) 10 - 49 U/L [facility] 10/03/2024 3:00 AM EST 10/04/2024 3:47 PM EST Juvenal Cr MD LAB BLOOD ORDERABLES Final Re sult Performing Organization Address [facility] de Phone Number [facility] [address] [place] [address] * AST (10/03/2024 3:00 AM EST) Only the most recent of3 resultswithin the time period is included. AST (SGOT) 14 <34 U/L [facility] 10/03/2024 3:00 AM EST 10/04/2024 3:47 PM EST Juvenal Cr MD LAB BLOOD ORDERABLES Final Re sult Performing Organization Address [facility] de Phone Number [facility] [address] [place] [address] * (ABNORMAL) Protein, total (10/03/2024 3:00 AM EST) Only the most recent of3 resultswithin the time period is included. Total Protein 5.9(L) 6.4 - 8.9 g/dL [facility] 10/03/2024 3:00 AM EST 10/04/2024 3:47 PM EST Juvenal Cr MD LAB BLOOD ORDERABLES Final Re sult Performing Organization Address [facility] Co de Phone Number [facility] [address] [place] [address] * Alkaline phosphatase (10/03/2024 3:00 AM EST) Only the most recent of3 resultswithin the time period is included. Alkaline Phosphatase 99 46 - 116 U/L [facility] 10/03/2024 3:00 AM EST 10/04/2024 3:47 PM EST Juvenal Cr MD LAB BLOOD ORDERABLES Final Re sult Performing Organization Address [facility] de Phone Number [facility] [address] [place] [address] * (ABNORMAL) PTH, Intact (10/03/2024 3:00 AM EST) Only the most recent of3 resultswithin the time period is included. PTH, Intact 121(L) 160 - 721 pg/mL [facility] Comment: Suggested (KDIGO) ESRD maintenance range is two to nine times the upper normal limit (80.1 pg/mL) for the laboratory. 10/03/2024 3:00 AM EST 10/04/2024 3:47 PM EST Juvenal Cr MD LAB BLOOD ORDERABLES Final Re sult Performing Organization Address [facility] de Phone Number [facility] [address] [address] * Magnesium (10/03/2024 3:00 AM EST) Only the most recent of3 resultswithin the time period is included. Magnesium 2.0 1.9 - 2.7 mg/dL [facility] 10/03/2024 3:00 AM EST 10/04/2024 3:47 PM EST Juvenal Cr MD LAB BLOOD ORDERABLES Final Re sult Performing Organization Address [facility] de Phone Number [facility] [address] [place] [address] * (ABNORMAL) Lactate dehydrogenase (10/03/2024 3:00 AM EST) Only the most recent of3 resultswithin the time period is included. LDH 258(H) 120 - 246 U/L [facility] 10/03/2024 3:00 AM EST 10/04/2024 3:47 PM EST Juvenal Cr MD LAB BLOOD ORDERABLES Final Re sult Performing Organization Address [facility] de Phone Number [facility] [address] [place] [address] * (ABNORMAL) Glucose, random (10/03/2024 3:00 AM EST) Only the most recent of3 resultswithin the time period is included. Glucose 129(H) 74 - 109 mg/dL [facility] 10/03/2024 3:00 AM EST 10/04/2024 3:47 PM EST Juvenal Cr MD LAB BLOOD ORDERABLES Final Re sult Performing Organization Address [facility] de Phone Number [facility] [address] [place] [address] * (ABNORMAL) Ferritin (10/03/2024 3:00 AM EST) Only the most recent of3 resultswithin the time period is included. Ferritin 1,108(H) 22 - 322 ng/mL [facility] 10/03/2024 3:00 AM EST 10/04/2024 3:47 PM EST Juvenal Cr MD LAB BLOOD ORDERABLES Final Re sult Performing Organization Address [facility] Co de Phone Number [facility] [address] [place] [address] * (ABNORMAL) Creatinine, serum (10/03/2024 3:00 AM EST) Only the most recent of3 resultswithin the time period is included. Creatinine 5.81(H) 0.70 - 1.30 mg/dL [facility] 10/03/2024 3:00 AM EST 10/04/2024 3:47 PM EST Juvenal Cr MD LAB BLOOD ORDERABLES Final Re sult Performing Organization Address [facility] de Phone Number [facility] [address] [place] [address] * Bilirubin, total (10/03/2024 3:00 AM EST) Only the most recent of3 resultswithin the time period is included. Total Bilirubin 0.4 0.3 - 1.2 mg/dL [facility] 10/03/2024 3:00 AM EST 10/04/2024 3:47 PM EST Juvenal Cr MD LAB BLOOD ORDERABLES Final Re sult Performing Organization Address [facility] de Phone Number [facility] [address] [place] [address] * (ABNORMAL) Electrolyte panel (10/03/2024 3:00 AM EST) Only the most recent of3 resultswithin the time period is included. Sodium 130(L) 136 - 145 mEq/L [facility] Potassium 4.7 3.4 - 5.0 mEq/L [facility] Chloride 93(L) 98 - 107 mEq/L [facility] Bicarbonate (CO2) 24 21 - 31 mEq/L [facility] Anion Gap 13 3 - 14 mEq/L [facility] 10/03/2024 3:00 AM EST 10/04/2024 3:47 PM EST Juvenal Cr MD LAB BLOOD ORDERABLES Final Re sult Performing Organization Address [facility] Co de Phone Number [facility] [address] [place] [address] * Potassium (09/26/2024 3:00 AM EST) Only the most recent of3 resultswithin the time period is included. Potassium 4.8 3.4 - 5.0 mEq/L [facility] 09/26/2024 3:00 AM EST 09/27/2024 1:02 PM EST Juvenal rC MD LAB BLOOD ORDERABLES Final Re sult Performing Organization Address [facility] de Phone Number [facility] [address] [place] [address] * (ABNORMAL) Hemoglobin and hematocrit (09/19/2024 3:00 AM EST) Only the most recent of2 resultswithin the time period is included. Hgb 9.3(L) 13.7 - 17.5 g/dL [facility] Hematocrit 28.7(L) 40.1 - 51.0 % [facility] Hemoglobin x 3 27.9(L) 41.1 - 52.5 g/dL [facility] 09/19/2024 3:00 AM EST 09/21/2024 1:11 PM EST Juvenal Cr MD LAB BLOOD ORDERABLES Final Re sult Performing Organization Address [facility] Co de Phone Number [facility] [address] [place] [address] * (ABNORMAL) Phosphorus (09/19/2024 3:00 AM EST) Phosphorus, Serum 7.4(H) 2.5 - 5.0 mg/dL [facility] 09/19/2024 3:00 AM EST 09/21/2024 2:15 PM EST Juvenal Cr MD LAB BLOOD ORDERABLES Final Re sult Performing Organization Address [facility] de Phone Number [facility] [address] [place] [address] * Collection Date (09/14/2024 3:00 AM EST) Collection Date See Comment [facility] Comment: Patient sample received may exceed specimen stability, based on the collection date electronically provided. ??When reviewing patient results, verify collection information and consider specimen stability before acting on any critical or panic results. 09/14/2024 3:00 AM EST Juvenal Cr MD LAB [id number] SOLICITED RESULTS Final Result Performing Organization Address [facility] de Phone Number [facility] [address] [place] [address] * Hep B Core Ab, Total w/Reflex IgM (09/12/2024 3:00 AM EST) HBc Total Ab, S Negative Negative [facility] 09/12/2024 3:00 AM EST 09/13/2024 3:03 PM EST Juvenal Cr MD LAB [id number] SOLICITED RESULTS Final Result Performing Organization Address [facility] de Phone Number [facility] [address] [place] [address] * (ABNORMAL) Hepatitis B Surface Antibody (09/12/2024 3:00 AM EST) Only the most recent of2 resultswithin the time period is included. Hep B Surface Antibody <4(A) mIU/mL [facility] Comment: Interpretation: <10: No Immunity >=10: Probable Immunity 09/12/2024 3:00 AM EST 09/13/2024 3:03 PM EST Juvenal Cr MD LAB BLOOD ORDERABLES Final Re sult Performing Organization Address [facility] de Phone Number [facility] [address] [place] [address] * Confirmation Test HCV (08/31/2024 3:00 AM EST) Hep C Ab Confirmation Not needed [facility] 08/31/2024 3:00 AM EST 09/01/2024 1:35 PM EST Juvenal Cr MD LAB BLOOD ORDERABLES Final Re sult Performing Organization Address [facility] de Phone Number [facility] [address] [place] [address] * HEPATITIS C ABS W/REFLEX RNA DETECTR (08/31/2024 3:00 AM EST) Hep C Virus Ab Non-Reacti ve Non-Reacti ve [facility] 08/31/2024 3:00 AM EST 09/01/2024 1:41 PM EST Juvenal Cr MD LAB [id number] SOLICITED RESULTS Final Result Performing Organization Address [facility] de Phone Number [facility] [address] [place] [address] * Aluminum level (08/31/2024 3:00 AM EST) Aluminum 5 1 - 20 ug/L [facility] 08/31/2024 3:00 AM EST 09/01/2024 1:40 PM EST Juvenal Cr MD LAB BLOOD ORDERABLES Final Re sult Performing Organization Address [facility] de Phone Number [facility] [address] [place] [address] * Uric Acid (08/31/2024 3:00 AM EST) Uric Acid 5.4 4.4 - 7.6 mg/dL [facility] 08/31/2024 3:00 AM EST 09/01/2024 1:41 PM EST us Juvenal Cr MD LAB BLOOD ORDERABLES Final Re sult Performing Organization Address [facility] de Phone Number [facility] [address] [place] [address] * (ABNORMAL) Lipid panel (08/31/2024 3:00 AM [...] ORDERABLES Final Re sult Performing Organization Address [facility] de Phone Number [facility] [address] [place] [address] * (ABNORMAL) Hemoglobin (07/27/2024 3:00 AM EST) Hgb 9.3(L) 13.7 - 17.5 g/dL [facility] Hemoglobin x 3 27.9(L) 41.1 - 52.5 g/dL [facility] 07/27/2024 3:00 AM EST 07/28/2024 12:49 PM EST Juvenal Cr MD LAB BLOOD ORDERABLES Final Re sult Performing Organization Address [facility] de Phone Number [facility] [address] [place] [address] * Hepatitis B Core Antibody, Total (07/20/2024 3:00 AM EST) HBc Total Ab, S Negative Negative [facility] 07/20/2024 3:00 AM EST 07/21/2024 1:45 PM EST Juvenal Cr MD LAB BLOOD ORDERABLES Final Re sult Performing Organization Address [facility] de Phone Number [facility] [address] [place] [address] * Occult blood x 3, stool (01/22/2022) Occult Blood, Stool #1 Negative Negative [facility] Comment: Performed by [facility]. Occult Blood, Stool #2 Negative Negative [facility] Comment: Performed by [facility] [facility]. Collection Time 600 [facility] 01/22/2022 01/27/2022 1:2 3 PM EDT Narrative [facility] - 01/27/2022 Unless otherwise specified, test(s) performed at: [facility], [address] [place] [address] GAS STATION CLERK: Cruzito Knutson M.D. For any questions, please call customer service at FREQUENCY:OTHER Resulting Agency Comment Specimen source: Occult Blood Card us Juvenal Cr MD LAB BODY FLUIDS AND STOOLS OR DERABLES Final Result [facility] from Last 3 Months or Most Recently Relevant to Health Maintenance Insurance [place]
--- OUTSIDE RECORDS SUMMARY | 2024-10-11 12:53 | XMS_ITS | Encounter Summary ---
Author Organization [employer] Address [address] [place] [address] [address] [place] [address] Care Team Providers Care [employer] Name Role Phone Andie Whitmore Primary Care Provider Trevor Restrepo MD Unavailable [phone] Juvenal Cr MD Unavailable [phone] Kamini Chavarria MD Unavailable [phone] Winston Bhagat DPM Unavailable [phone] Reason for Referral * Imaging (Urgent) - Closed Specialty Diagnoses / Procedures Referred By Contac t Referred To Contact Cardiology Diagnoses ESRD (end stage renal disease) ([facility]) Primary hypertension Shortness of breath Procedures Transthoracic Echo (TTE) Complete Andie Whitmore FNP [address] [place] [address] Phone: tel: fax: [address] Phone: tel: fax: Referral ID Status Reason Start Date Expiration Date V isits Requested Visits Authorized [id number] Closed Perform Procedure 06/29/2023 06/28/2024 1 1 Reason for Visit * Reason Onset Date Comments Call Back Request 06/21/2023 Encounter Details Date Type Department Care Team (Late st Contact Info) Description 06/21/2023 Telephone [facility] [address] [place] [address] Andie Whitmore FNP [address] [place] [address] Call Back Request Social History Tobacco Use [...] order of the heart. Contact pt at [phone] * Telephone Encounter - Iram Pierre RN [...] just once, had an EKG, and the electrical designer said he was just fine. Patient has [...] having dialysis tomorrow. Please contact pt at [phone] documented in this encounter Plan of Treatment Scheduled Orders Name Type Priority Associated Diagnoses Order Schedule Transthoracic Echo (TTE) Complete Echocardiography Urgent ESRD (end stage renal disease) ([facility]) Primary hypertension Shortness of breath Expected: 06/29/2023 (Approximate), Expires: 06/29/2025 documented as of this encounter Visit Diagnoses Diagnosis ESRD (end stage renal disease) ([facility])- Primary End stage renal disease Primary hypertension Unspecified essential hypertension Shortness of breath documented in this encounter Additional Health Concerns Assessment Noted Time PHQ-9 Depression Total Score: 1 12/23/19 23 3:02 PM EDT documented as of this encounter 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
--- OUTSIDE RECORDS SUMMARY | 2024-10-11 12:54 | XMS_ITS | Clinical Summary ---
Author Organization [employer] Address [address] [facility] [address] [place] [address] Care Team Providers Care Switchboard Receptionist Name Role Phone WernerAndie manning CORINNE Primary Care Provider [phone] Trevor Restrepo MD Unavailable Juvenal Cr MD Unavailable [phone] Kamini Chavarria MD Unavailable Winston Bhagat DPM [...] Following with Podiatry - Dr. Bhagat at [facility] Jun 2024: Debridement of toenails 6-10, with plan to cont topical Jublia. RTC 3 months. Healthcare maintenance 12/12/2023 Overview (12/12/2023): Optometry: CEE 11/10/23 (Dr. Mohr). Noted trace macular edema, follow up in 3 months PSA: hx prostate CA, following with [facility] Heart failure with mildly re duced [...] Exacerbation w/ Hospitalization 08/04 - 08/07/23 at [facility] ESRD on HD: communication with Dr. Cr [...] 02/18/2023 Overview (12/12/2023): Following with Dr. Restrepo ([facility]) Hx of bilateral stent placement ESRD (end stage renal disease) 11/05/2021 Assessment & Plan (04/27/2023 2:16 PM EDT): -Hemodialysis MWF at [address] [place] [address] Dialysis (first shift) -Access: Left arm basilic vein transposition performed on 08/03/2021. -Mar 2023: fistulagram performed, [facility] [place]. Blackburn. Has been working well since Assessment & Plan (12/22/2022 8:12 PM EDT): -Hemodialysis MWF at [address] [place] [address] -Access: Left arm basilic vein transposition performed on 08/03/2021. Have started to access fistula at dialysis -Left AVF w/ +thrill/+bruit Prostate cancer metastatic to bone 11/05/2021 Assessment & Plan (07/29/2024 10:41 PM EST): Marshall score ranging from 7 to 9. 10/05/21 cystoscopy with bilateral ureteral stent exchange performed by [facility] Continue to follow with [facility] - Dr. Restrepo Continue to follow with [facility] Heme/Onc Previously on Bicalutamide 50mg PO daily through Urology, currently taking Abiraterone 01/24/23: cystoscopy with bilateral stent exchange November 2023: Bone scan stable, no progression Target 3 years hormone therapy then reduction to intermittent anti-androgen Apr 2024: DXA normal Assessment & Plan (04/27/2023 2:17 PM EDT): ?? Marshall score ranging from 7 to 9. ?? 10/05/21 cystoscopy with bilateral ureteral stent exchange performed by [facility] ?? Continue to follow with [facility] U[facility] - Dr. Restrepo ?? Continue to follow with [facility] Heme/Onc ?? Previously on Bicalutamide 50mg PO daily through Urology, currently taking Abiraterone ?? 01/24/23: cystoscopy with bilateral stent exchange Assessment & Plan (12/22/2022 8:13 PM EDT): ?? Flor score ranging from 7 to 9. ?? 10/05/21 cystoscopy with bilateral ureteral stent exchange performed by [facility] ?? Continue to follow with [facility] Urology - Dr. Restrepo ?? Continue to follow with [facility] Heme/Onc ?? Previously on Bicalutamide 50mg PO [...] Encounters Date Type Department Care Team Description 09/27/2024 Patient Outreach [facility] [address] [place] [address] [phone] Andie Whitmore FNP Transition Of Care (Tcm) (HDF- LVM #2) 09/19/2024 Patient Outreach [facility] [address] [place] [address] Andie Whitmore FNP Transition Of Care (Tcm) (Hdf unscheduled) 09/08/2024 Orders Only GENERIC EXTERNAL DATA DEPARTMENT Provider, Generic External Data 07/31/2024 Telephone [facility] [address] [place] [address] Andie Whitmore FNP 07/16/2024 1:00 PM EST Office Visit [facility] [address] [place], [place] [phone] Andie Whitmore FNP Primary hypertension (Primary Dx); Hyperlipidemia, unspecified hyperlipidemia type; Restless legs syndrome; Epidermal inclusion cyst; Impacted cerumen of left ear; Prostate cancer metastatic to bone (CMS/HCC); Onychomycosis; Skin abrasion 07/16/2024 Travel from Last 3 Months Immunizations Name Administration [...] series) 2021 Depression Screening 12/23/2023 12/22/2022, 12/23/19 23 SDOH Screening 12/23/2023 12/22/2022 COVID-19 Vaccine (2023- season) 2024 12/20/2021, 06/17/2021, 06/07/2021, Additional history [...] Procedure Name Priority Date/Time Associated Diagnosis Comments XR CHEST 1 VIEW Routine 09/09/2024 9:04 AM EST NM LUNG PERFUSION Routine 09/09/2024 8:[address] CHEST WO CONTRAST Routine 09/08/2024 1:00 PM EST RED BLOOD COUNT Routine 09/08/2024 11:00 AM EST TYPE AND SCREEN Routine 09/08/2024 11:00 AM EST IRON AND TOTAL IRON BINDING CAPACITY Routine 09/08/2024 10:25 AM EST B TYPE NATRIURETIC PEPTIDE (BNP) Routine 09/08/2024 10:25 AM EST LACTIC ACID Routine 09/08/2024 10:25 AM EST MAGNESIUM Routine 09/08/2024 10:25 AM EST COMPREHENSIVE METABOLIC PANEL Routine 09/08/2024 10:25 AM EST CBC WITH AUTO DIFFERENTIAL Routine 09/08/2024 10:25 AM EST SARS COV2/INFLUENZA A/B AND RSV RNA QL NAAT Routine 09/08/2024 10:25 AM EST LIPID PANEL, STANDARD Routine 07/26/2024 11:25 AM EST Hyperlipidemia, unspecified hyperlipidemia type WOUND CARE Routine 07/16/2024 2:09 PM EST Skin abrasion FL REMOVAL IMPACTED CERUMEN IRRIGATION/LVG UNILAT Routine 07/16/2024 2:05 PM EST Impacted cerumen of left ear from Last 3 Months Results * XR Chest 1 View (09/09/2024 9:04 AM EST) Anatomical Region Laterality Modality Chest Radiographic Debra ging 09/09/2024 9:04 AM EST Narrative 09/09/2024 9:06 AM EST ? [facility] ?[address] ?[place] [address] ?XRay Report ? Signed ? Patient: Maribeth,Darwin ?MR#: [id number] ? : 1960 ?Acct:[id number] ? Age/Sex: 64 / M ?ADM Date: 09/08/24 ? Loc: HO.[facility]C ?467-1 ? Attending Dr: Jer Bermudez MD ? Ordering Physician: Jer Bermudez MD ?? Date of Service: 09/09/24 ?? Procedure(s): XR chest 1V ?? Accession Number(s): [id number] ? cc: Jer Bermudez MD; Andie Whitmore ? CLINICAL HISTORY: Hypoxia ? 1 view chest x-ray ? Comparison: CT/SR - CT CHEST WO IV CON - 09/08/24 11:21 EST ?? CR/FL/SR - XR CHEST 1V - 08/04/23 15:55 EST ? Findings: ?? Similar vascular congestion, pulmonary edema, small bilateral pleural ?? effusions xigmt-nzxwgnn-mkpw-left. Mild atelectatic basilar lung changes. ?? Stable cardiomegaly. Normal mediastinal contour. ?? Bones unchanged with arthritic changes both shoulders. Upper abdomen ?? unremarkable. ? Impression: ?? Similar congestive changes. ? This document has been electronically signed by: Malick Mesa MD on ?? 09/09/2024 09:04:49 ? Dictated By: ?Malick Mesa MD ? Signed By: ?<Electronically signed by Malick Mesa MD in OV> ? 09/09/24 0906 ? DD/ 0904 ? TD/TT: 09/09/24 0904 ? Human Relations Professor: ? Procedure Note Rosemarie Mayorga - 09/09/2024 [facility] [address] [place] [address] XRay Report Signed Patient: Darwin Stahl#: [id number] : 1Acct:[id number] Age/Sex: 64 / MADM Date: 09/08/24 Loc: .[facility] 467-[address]: Jer Bermudez MD Ordering Physician: Jer Bermudez MD Date of Service: 09/09/24 Procedure(s): XR chest 1V Accession Number(s): [id number] cc: Jer Bermudez MD; Andie Whitmore CLINICAL HISTORY: Hypoxia 1 view chest x-ray Comparison: CT/SR - CT CHEST WO IV CON - 09/08/24 11:21 EST CR/FL/SR - XR CHEST 1V - 08/04/23 15:55 EST Findings: Similar vascular congestion, pulmonary edema, small bilateral pleural effusions yrwxm-mhuzxpn-obhf-left. Mild atelectatic basilar lung changes. Stable cardiomegaly. Normal mediastinal contour. Bones unchanged with arthritic changes both shoulders. Upper abdomen unremarkable. Impression: Similar congestive changes. This document has been electronically signed by: Malick Mesa MD on 09/09/2024 09:04:49 Dictated By: Malick Mesa MD Signed By: <Electronically signed by Malick Mesa MD in OV> 09/09/24905 DD/ 3 TD/TT: 09/09/24903 Human Relations Professor: [facility] External Provider IMG XR PROCEDURES Edited Result - Final * NM Lung Perfusion (09/09/2024 8:33 AM EST) Anatomical Region Laterality Modality Body Nuclear Medicine 09/09/2024 8:33 AM EST Narrative 09/09/2024 8:35 AM EST ? [facility] ?[address] ?[place] [address] ?Nuclear Medicine Report ? Signed ? Patient: Maribeth,Darwin ?MR#: [id number] ? : 1960 ?Acct:[id number] ? Age/Sex: 64 / M ?ADM Date: 09/08/ ? Loc: HO.[facility]C ?467-1 ? Attending Dr: Jer Bermudez MD ? Ordering Physician: Marvin Hollins ?? Date of Service: 09/08/24 ?? Procedure(s): NM pul perfusion ?? Accession Number(s): [id number] ? cc: Marvin Hollins; Andie WhitmoreP ? CLINICAL HISTORY: hypoxia, hx of malignancy, sob r o PE ? NM Lung Perfusion ? Comparison: None ? Findings: ?? 4.0 mCi technetium 99m MAA used. ? No perfusion defects. ? IMPRESSION: ?? No perfusion defects. ? This document has been electronically signed by: Solange Mosqueda MD on ?? 09/09/2024 08:33:03 ? Dictated By: ?Solange Mosqueda MD ? Signed By: ?<Electronically signed by Solange Mosqueda MD in OV> ?09/09/24 0834 ? DD/ 2 ? TD/TT: 09/09/24832 ? Human Relations Professor: ? Procedure Note Tierra, Image - 09/09/2024 [place] [address] Nuclear Medicine Report Signed Patient: Emilia Stahl#: [id number] : 1960cct:[id number] Age/Sex: 64 / MADM Date: 09/08/24 Loc: [facility] 467-[address]: Jer Bermudez MD Ordering Physician: Marvin Hollins Date of Service: 09/08/24 Procedure(s): NM pul perfusion Accession Number(s): [id number] cc: Marvin Hollins; Andie Whitmore WORKFORCE ADVISOR CLINICAL HISTORY: hypoxia, hx of malignancy, sob r o PE NM Lung Perfusion Comparison: None Findings: 4.0 mCi technetium 99m MAA used. No perfusion defects. IMPRESSION: No perfusion defects. This document has been electronically signed by: Solange Mosqueda MD on 09/09/2024 08:33:03 Dictated By: Solange Mosqueda MD Signed By: <Electronically signed by Solange Mosqueda MD in OV> 09/09/24833 DD/ 2 TD/TT: 09/09/24832 Human Relations Professor: [facility] External Provider IMG NM PROCEDURES Edited Result - Final * CT Chest w/o Contrast (09/08/2024 1:00 PM EST) Anatomical Region Laterality Modality Body, Chest Computed Tomogra phy 09/08/2024 1:00 PM EST Narrative 09/08/2024 1:02 PM EST ? [facility] ?[address] ?[place] [address] ? CT Scan Report ? Signed ? Patient: Maribeth,Darwin ?MR#: [id number] ? : 1960 ?Acct:[id number] ? Age/Sex: 64 / M ?ADM Date: 09/08/24 ? Loc: HO.ED ? Attending Dr: ? Ordering Physician: Marvin Hollins ?? Date of Service: 09/08/24 ?? Procedure(s): CT chest wo IV con ?? Accession Number(s): [id number] ? cc: Marvin Hollins; Andie Whitmore WORKFORCE ADVISOR ? Report Number: ?? [id number]: Total DLP = ??272.00 mGy-cm ? CLINICAL HISTORY: sob cough hx malignancy ? CT chest without contrast ? Comparison: CR/FL/SR - XR CHEST 1V - 08/04/23 15:55 EST ?? CR/SR - XR CHEST 2V - 07/19/23 13:04 EST ?? CT/FL - CT CHEST WO CON - 04/02/21 00:15 EDT ? Findings: ?? No mediastinal mass or lymphadenopathy. ?? Cardiomegaly. Severe calcified coronary artery disease. Normal size ?? thoracic aorta with moderate calcified atherosclerotic disease. Severe ?? calcified atherosclerotic disease in the upper abdomen. ?? Smooth interlobular septal thickening with a mild amount of bilateral ?? ground-glass opacity. Subsegmental atelectasis versus linear scarring. ?? No pneumothorax. Small right and trace left pleural effusions. ?? No acute osseous or soft tissue abnormality. Sclerotic osseous lesions, ?? such as the lesion in T9, unchanged ?? No gallstones visible on CT. There is mild gallbladder wall thickening and ?? pericholecystic fluid. Small ascites in the upper abdomen. ? Impression: ?? Mild pulmonary edema. ?? Small ascites in the upper abdomen. ?? Mild gallbladder wall thickening/trace pericholecystic fluid is likely ?? secondary to systemic pathology such as congestive hepatopathy. No ?? gallstones visible on CT. ? This document has been electronically signed by: Joan Mendoza MD ?? on 09/08/2024 13:00:56 ? Dictated By: ?Joan Lozoya MD ? Signed By: ?<Electronically signed by Joan Lozoya MD in OV> ? 09/08/24 1302 ? DD/ 1300 ? TD/TT: 09/08/24 1300 ? Human Relations Professor: ? Procedure Note Donotuseinterpreter, Image - 09/08/[address] [address] [address] Scan Report Signed Patient: Emilia Stahl#: [id number] : 1960cct:[id number] Age/Sex: 64 / MADM Date: 09/08/24 Loc: HO.ED Attending Dr: Ordering Physician: Marvin Hollins Date of Service: 09/08/24 Procedure(s): CT chest wo IV con Accession Number(s): [id number] cc: Marvin Hollins; Andie Whitmore [facility] Report Number: [id number]: Total DLP = 272.00 mGy-cm CLINICAL HISTORY: sob cough hx malignancy CT chest without contrast Comparison: CR/FL/SR - XR CHEST 1V - 08/04/23 15:55 EST CR/SR - XR CHEST 2V - 07/19/23 13:[address]/FL - CT CHEST WO CON - 04/02/21 00:15 EDT Findings: No mediastinal mass or lymphadenopathy. Cardiomegaly. Severe calcified coronary artery disease. Normal size thoracic aorta with moderate calcified atherosclerotic disease. Severe calcified atherosclerotic disease in the upper abdomen. Smooth interlobular septal thickening with a mild amount of bilateral ground-glass opacity. Subsegmental atelectasis versus linear scarring. No pneumothorax. Small right and trace left pleural effusions. No acute osseous or soft tissue abnormality. Sclerotic osseous lesions, such as the lesion in T9, unchanged No gallstones visible on CT. There is mild gallbladder wall thickening and pericholecystic fluid. Small ascites in the upper abdomen. Impression: Mild pulmonary edema. Small ascites in the upper abdomen. Mild gallbladder wall thickening/trace pericholecystic fluid is likely secondary to systemic pathology such as congestive hepatopathy. No gallstones visible on CT. This document has been electronically signed by: Joan Mendoza MD on 09/08/2024 13:00:56 Dictated By: Joan Lozoya MD Signed By: <Electronically signed by Joan Lozoya MD in OV> 09/08/24 1302 DD/ 1300 TD/TT: 09/08/24 1300 Human Relations Professor: [facility] External Provider IMG CT PROCEDURES Edited Result - Final * Red blood count (09/08/2024 11:00 AM EST) Red Blood Cells: [id number] AP RC TRANSFUSED 09/08/24 1204 [facility] 09/08/2024 11:0 0 AM EST 09/08/2024 11:04 AM EST Generic External Data Provider LAB BLOOD ORDERAB LES Final Result [facility] [address] [place] [phone] * Type and screen (09/08/2024 11:00 AM EST) Blood Type AP [facility] Antibody Screen NEGATIVE [facility] 09/08/2024 11:0 0 AM EST 09/08/2024 11:04 AM EST Narrative [facility] - 09/08/2024 3:17 PM EST Results at Issue Units as of 09/08/24 1205 ...Test View Group: Most Recent HGB ?? HCT Results ?LABORATORYDate ?Time Test ?Result ?Flag Normal Range09/08/24 1025 HGB ?7.0 ?#*L ??14.0-18.0 g/dlResults of HGB called to and read back by Yasmin 09/08/24 at 1044 by CHON.09/08/24 1025 HCT ?20.8 ?#*L ??42.0-52.0 %Results of HCT called to and read back by Yasmin 09/08/24 at 1044 by CHON. No us Generic External Data Provider LAB BLOOD BANK TE ST ORDERABLES Final Result [facility] [address] [place] [address] [phone] * SARS-CoV-2 RNA, Influenza A/B, and RSV RNA, Ql NAAT (09/08/2024 10:25 AM EST) Pathologist [facility] Influenza A PCR NEGATIVE Negative [facility] Influenza B PCR NEGATIVE Negative [facility] Resp Syncy Virus RNA Qual PCR NEGATIVE Negative [facility] SARS COV2 PCR NEGATIVE Negative [facility] Comment:All test results mus t be correlated with clinical findings.Negative results do not preclude SARS-CoV2, influenza Avirus, influenza B virus and/or RSV infectionand should not be used as the sole basis for treatment orother patient management decisions. Negative results must becombined with clinical observations, patient history, andepidemiological information.This test has not been evaluated for monitoring treatment ofinfection.This test has been authorized by the FDA under an EmergencyUse Authorization (EUA) for use by authorized laboratories.Testing performed on the [employer] GeneXpert utilizingreal-time RT-PCR.All SARS CoV2 and positive influenza A/B results arereported to [facility]. 09/08/2024 10:2 5 AM EST 09/08/2024 10:37 AM EST Generic External Data Provider LAB MICROBIOLOGY - GENERAL ORDERABLES Final Result [facility] [address] [place] [address] [phone] * (ABNORMAL) CBC auto differential (09/08/2024 10:25 AM EST) White Blood Count 6.9 4.8 - 10.8 X10*3/uL [facility] Red Blood Count 2.47(L) 4.60 - 5.80 X10*6/uL [facility] Hemoglobin 7.0(LL) 14.0 - 18.0 g/dl [facility] Comment:Results of HGB jiang d to and read back by Yasmin 09/08/24 at 1044 by CHON. Hematocrit 20.8(LL) 42.0 - 52.0 % [facility] Comment:Results of HCT jiang d to and read back by Yasmin 09/08/24 at 1044 by CHON. Mean Corpuscular Volume 84.2 80.0 - 98.0 fL [facility] Mean Corpuscular Hemoglobin 28.3 27.0 - 33.0 pg [facility] Mean Corpuscular HGB Conc 33.7 31.0 - 36.0 g/dl [facility] Red Cell Distribution Width 18.9(H) 11.0 - 16.0 % [facility] Platelet Count 191 160 - 400 X10*3/uL [facility] Mean Platelet Volume 11.1 9.4 - 12.4 fL [facility] Neutrophils Percent Auto 79.1(H) 45 - 73 % [facility] Imm Gran Pct Auto 0.6(H) 0.0 - 0.4 % [facility] Lymphocytes Percent Auto 14.1(L) 20 - 40 % [facility] Monocytes Percent Auto 4.5 2 - 11 % [facility] Eosinophils Percent Auto 1.3 0 - 4 % [facility] Basophils Percent Auto 0.4 0 - 2 % [facility] NRBC Pct Auto 0.0 0.0 - 0.2 /100WBC [facility] Neutrophils Absolute Auto 5.5 2.0 - 8.3 x10*3/uL [facility] Imm Gran Abs Auto 0.04(H) 0.00 - 0.03 X10*3/uL [facility] Lymphocytes Absolute Auto 1.0(L) 1.2 - 4.9 X10*3/uL [facility] Monocytes Absolute Auto 0.3 0.1 - 1.2 X10*3/uL [facility] Eosinophils Absolute Auto 0.1 0.0 - 0.4 X10*3/uL [facility] Basophils Absolute Auto 0.0 0.0 - 0.2 X10*3/uL [facility] NRBC Abs Auto 0.000 0.0 - 0.012 X10*3/uL [facility] 09/08/2024 10:2 5 AM EST 09/08/2024 10:37 AM EST us Generic External Data Provider LAB BLOOD ORDERAB LES Final Result Performing Organization Address City/[facility]/ZIP Co de Phone Number [facility] [address] [place] [phone] * (ABNORMAL) Iron And Total Iron Binding Capacity (09/08/2024 10:25 AM EST) Iron 39(L) 45 - 160 mcg/dL [facility] Total Iron Binding Capacity 156(L) 228 - 428 mcg/dL [facility] Percent Iron Saturation 25 15 - 50 % [facility] Unsaturated Iron Binding 117 ug/dL [facility] 09/08/2024 10:2 5 AM EST 09/08/2024 10:37 AM EST us Generic External Data Provider LAB BLOOD ORDERAB LES Final Result Performing Organization Address [facility]/ZIP Co de Phone Number [facility] [address] [place] [phone] * (ABNORMAL) B Type Natriuretic Peptide (BNP) (09/08/2024 10:25 AM EST) B Type Natriuretic Peptide 4,852(H) <100 pg/mL [facility] Comment:For those patients w ho are being treated with Natrecor(nesiritide, recombinant BNP), BNP testing should beperformed at least two hours post treatment in order toensure that only endogenous levels of BNP are detected. 09/08/2024 10:2 5 AM EST 09/08/2024 10:53 AM EST us Generic External Data Provider LAB BLOOD ORDERAB LES Final Result Performing Organization Address [facility] Co de Phone Number [facility] [address] [place] [phone] * Magnesium (09/08/2024 10:25 AM EST) Pathologist [facility] Magnesium 1.8 1.6 - 2.6 mg/dL [facility] 09/08/2024 10:2 5 AM EST 09/08/2024 10:37 AM EST Generic External Data Provider LAB BLOOD ORDERAB LES Final Result Performing Organization Address [facility] Co de Phone Number [facility] [address] [place] [phone] * Lactic Acid (09/08/2024 10:25 AM EST) Lactic Acid 0.8 0.5 - 2.0 mmol/L [facility] 09/08/2024 10:2 5 AM EST 09/08/2024 10:37 AM EST Generic External Data Provider LAB BLOOD ORDERAB LES Final Result Performing Organization Address [facility] Co de Phone Number [facility] [address] [place] [phone] * (ABNORMAL) Comprehensive Metabolic Panel (09/08/2024 10:25 AM EST) Sodium 135 135 - 145 mmol/L [facility] Potassium 3.1(L) 3.3 - 5.1 mmol/L [facility] Chloride 96 96 - 108 mmol/L [facility] Carbon Dioxide 26 22 - 29 mmol/L [facility] Anion Gap 16 12 - 20 [facility] Urea Nitrogen (BUN) 17(H) 9 - 16 mg/dL [facility] Creatinine, Serum 3.90(H) 0.5 - 1.4 mg/dL [facility] Creatinine Clr Calc Pharmacy 15.6 [facility] Comment:eGFR (calculated fro m the MDRD study equation) and eCrCl(calculated from the Cockcroft-Gault equation) are based ondifferent parameters and may not yield comparable results.If eCrCl result is absurd, please check patient'sheight/weight. Estimated Glomerular Filt Rate 16 [facility] Comment:Chronic Kidney Disea se: Estimated GFR < 60 mL/min/[id number] Kidney Disease: Estimated GFR < 15 mL/min/1.73m2 Glucose 93 60 - 115 mg/dL [facility] Calcium 9.5 8.4 - 10.2 mg/dL [facility] Bilirubin, Total 0.8 0.0 - 1.0 mg/dL [facility] Aspartate Amino Transferase 26 5 - 37 U/L [facility] Alanine Aminotransferase 7 0 - 40 U/L [facility] Total Protein 6.5 6.5 - 8.0 g/dL [facility] Albumin Level 3.7 3.5 - 5.0 g/dL [facility] Alkaline Phosphatase 113 39 - 117 U/L [facility] 09/08/2024 10:2 5 AM EST 09/08/2024 10:37 AM EST us Generic External Data Provider LAB BLOOD ORDERAB LES Final Result [facility] [address] [place] [phone] * Lipid Panel, Standard (07/26/2024 11:25 AM EST) Triglycerides 54 <150 mg/dL [facility] Comment:Desirable Triglyceri de: less than 150 mg/dLBorderline High Triglyceride 150-199 mg/dLHigh Triglyceride: 200-499 mg/dLVery High Triglyceride: greater than or equal to 5OO mg/dL Cholesterol 142 <200 mg/dL [facility] Comment:Desirable Cholestero l: less than 200 mg/dLBorderline High Cholesterol: 200-239 mg/dLHigh Cholesterol: greater than 239 mg/dL LDL Cholesterol Calculated 83 <100 mg/dL [facility] Comment:Desirable LDL: less than 100 mg/dLNear Optimal/Above Optimal LDL: 110- 129 mg/dLBorderline High LDL: 130-159 mg/dLHigh LDL: 160-189 mg/dLVery High LDL: greater than or equal to 190 mg/dL HDL Cholesterol 49 >40 mg/dL [facility] Comment:Desirable HDL: great er than 40 mg/dL Note: This HDL assay may give artificially low results in patients with liver disease. Blood Venous blood specimen / Unknown 07/26/2024 11:25 AM EST 07/26/2024 1:05 PM EST us Andie SUN LAB BLOOD ORDERABLES Final Res ult [facility] [address] [place] [phone] * Wound Care (07/16/2024 2:09 PM [...] bandage as ordered by PCP. us Andie Whitmore WORKFORCE ADVISOR IN CLINIC/BEDSIDE ORDERABLES F inal Result * [place] REMOVAL IMPACTED CERUMEN IRRIGATION/LVG UNILAT (07/16/2024 2:05 [...] report hearing 100 % better us Andie Whitmore WORKFORCE ADVISOR IN CLINIC/BEDSIDE ORDERABLES F inal Result from Last 3 Months Insurance MEDICARE [facility] STANDARD Care Teams Switchboard Receptionist Relationship Specialty Start Date End Date Andie Whitmore FNP [address] [place] [address] PCP - General Family Medicine 11/04/21 Trevor Restrepo MD [address] [place] [address] Urology 07/29/24 Juvenal Cr MD 100 [facility] 200 [place] [address] Nephrology 07/29/24 Kamini Chavarria MD 15 [facility] 140 [place] [address] Neurology 07/29/24 Winston Bhagat DPM [address] [place] [address] (work) Podiatry 07/29/24
--- OUTSIDE RECORDS SUMMARY | 2024-10-11 12:54 | XMS_ITS | Encounter Summary ---
Author Organization [employer] Address [address] [facility] 7t [place] [address] Care Team Providers Care C.O.D. Clerk Name Role Phone Andie Whitmore Primary Care Provider [phone] Trevor Restrepo MD Unavailable [phone] Juvenal Cr MD Unavailable Kamini Chavarria MD Unavailable Winston Bhagat DPM Unavailable Reason for Visit * Reason Comments Transition Of Care (Tcm) HDF- LVM #2 Encounter Details Date Type Department Care Team (Late st Contact Info) Description 09/27/2024 Patient Outreach [facility] [address] [place] [address] Andie Whitmore FNP [address] [place] [address] Transition Of Care (Tcm) (HDF- LVM #2) Social History Tobacco Use Types Packs/Day Years Used Date Smoking Tobacco: Never Passive Smoke Exposure: Never Smokeless Tobacco: Never Alcohol Use Standard Drinks/Week Comments Never 0 (1 standard drink = 0.6 oz pur e alcohol) Depression Answer Date Recorded Patient Health Questionnaire-9 Score 1 12/22/2022 Housing Stability Answer Date Recorded What is your housing situation today? I have marvni morales 05/17/[address] you [...] as of this encounter Miscellaneous Notes * Significant Event - Soraya Hollis - 09/27/2024 4:23 PM EST 09/27/24 1622 Hospital Discharges and Admission for [facility] Type of Visit Hospital Admission Date of Admission/Visit 09/08/24 Date of Discharge 09/10/24 Facility [facility] Diagnosis Symptomatic anemia Disposition Discharged Home Follow-Up Actions Follow-Up Needed Provider appointment Follow-Up Outcome Left Voicemail Initial Contact Date 09/27/24 ZACHARIAH Pires placed outbound call to patient for HDF outreach.CC placed second outreach call to offer patient with an HDF appointment with provider. No answer at this time. Patient's name and were not confirmed. CC left detailed message educating patient on importance of following up with provider following an inpatient admission. Provided contact information requesting a call back in order to schedule the HDF appointment. Patient educated via voicemail on extended clinic hours on Mondays and Wednesdays, and Walk-In Urgent Care Located in [facility] of [facility]. Patient provided with after-hours line for [facility], , which offer night time triage service and option to transfer to lead front end developer provider if needed. CC will await return call from the patient. documented in this encounter Plan of Treatment Not on file documented as of this encounter Visit Diagnoses Not on filedocumented in this encounter Additional Health Concerns Assessment Noted Time PHQ-9 Depression Total Score: 1 12/23/19 23 3:02 PM EDT documented as of this encounter Care Teams C.O.D. Clerk Relationship Specialty Start Date End Date Andie Whitmore FNP [address] [place] [address] PCP - General Family Medicine 11/04/21 Trevor Restrepo MD [address] [place] [address] Urology 07/29/24 Juvenal Cr MD 100 [facility] 200 [place] [address] Nephrology 07/29/24 Kamini Chavarria MD 15 [facility] 140 [place] [address] Neurology 07/29/24 Winston Bhagat DPM [address] [place] [address] Podiatry 07/29/24 documented as of this encounter
--- OUTSIDE RECORDS SUMMARY | 2024-10-11 12:54 | XMS_ITS | Encounter Summary ---
Author Organization [employer] Address 75 [facility] 7t [place] [address] Care Team Providers Care Industrial Plant Custodian Name Role Phone Andie Whitmore Primary Care Provider Trevor Restrepo MD Unavailable [phone] Juvenal Cr MD Unavailable [phone] Kamini Chavarria MD Unavailable Winston Bhagat DPM Unavailable Reason for Visit * Reason Comments Transition Of Care (Tcm) Hdf unscheduled Encounter Details Date Type Department Care Team (Late st Contact Info) Description 09/19/2024 Patient Outreach [facility] [address] [place] [address] Andie Whitmore FNP [address] [place] [address] Transition Of Care (Tcm) (Hdf unscheduled) Social History Tobacco Use Types Packs/Day Years [...] the past 12 months, has t he [employer], gas, oil or water [employer] threatened to shut off services in your [...] encounter Miscellaneous Notes * Significant Event - Ema Estrada - 09/19/2024 8:29 AM EST 09/19/24 0827 Hospital Discharges and Admission for [facility] Type of Visit Hospital Admission Date of Admission/Visit 09/08/24 Date of Discharge 09/10/24 Facility [facility] Diagnosis Symptomatic anemia Disposition Discharged Home Follow-Up Actions Follow-Up Needed Provider appointment Follow-Up Outcome Left Voicemail Initial Contact Date 09/19/24 ZACHARIAH Boo placed outbound call to patient for HDF outreach. CC placing call to offer patient with an HDF [...] Wednesdays, and Walk-In Urgent Care Located in [facility] of [facility]. Patient provided with after-hours line for [facility], , which offer night time triage service and option to transfer to seo professional provider if needed. [facility] discharge summary has been scanned into chart. CC will place additional outreach call within 2-5 business days. documented in this encounter Plan of Treatment Not on file documented as of this encounter Visit Diagnoses Not on filedocumented in this encounter Additional Health Concerns Assessment Noted Time PHQ-9 Depression Total Score: 1 12/23/19 23 3:02 PM EDT documented as of this encounter Care Teams Industrial Plant Custodian Relationship Specialty Start Date End Date Andie Whitmore FNP [address] [place] [address] PCP - General Family Medicine 11/04/21 Trevor Restrepo MD [address] [place] [address] Urology 07/29/24 Juvenal Cr MD [address] [facility] 200 [place] [address] Nephrology 07/29/24 Kamini Chavarria MD 15 [facility] 140 [place] [address] Neurology 07/29/24 Winston Bhagat DPM [address] [place] [address] Podiatry 07/29/24 documented as of this encounter"
--- OUTSIDE RECORDS SUMMARY | 2024-10-11 12:54 | XMS_ITS | Clinical Summary ---
Author Organization 175 [facility] Address [address] [place] [address] Phone Care Team Providers Care Knitted Goods Shaper Name Role Phone Andie Whitmore RN Primary Care Provider Allergies No known active allergies Medications amLODIPine (NORVASC) 10 mg tablet Take 1 [...] EST - 07/24/2024 1:29 PM EST Emergency [facility] Emergency [address] [place] [address] Hemorrhage of arteriovenous fistula, initial encounter ([facility]) (Primary Dx) Discharge Disposition: Home or Self Care from Last 3 Months Social History Tobacco Use Types Packs/Day Years Used Date Smoking Tobacco: Never Smokeless Tobacco: Never Tobacco Cessation:Counseling Given: Not Answered Sex and Gender Information Value Date Recorded Sex Assigned at Not on file Legal Sex Male 11:02 AM EDT Gender Identity Not on file Sexual Orientation Not on file Obstetrics History Last Filed [...] Due Date Last Done Comments Pneumococcal Vaccine: 50+ Years (1 of 2 - PCV) 02/29/1980 Pneumococcal Vaccine: Pediatrics (0 to 5 Years) and At-Risk Patients (6 to 64 Years) (1 of 2 - PCV) 02/29/1980 RSV Immunization Patients 60+ Years Old (1 [...] patient's age to complete this topic Meningococcal B Vacine Aged Out No lo nger eligible based on patient's age to complete this topic RSV Immunization Patients Under 20 months Aged Out No longer eligible based on patient's age to complete this topic Varicella Vaccines Aged Out No longer eligible based on patient's age to complete this topic Insurance MEDICAID - [place] MEDICARE Care Teams Knitted Goods Shaper Relationship Specialty Start Date End Date Andie Whitmore RN [address] [place] [phone] PCP - General 12/14/23
--- OUTSIDE RECORDS SUMMARY | 2024-10-11 12:54 | XMS_ITS ---
Author Name [facility] Address [address] [place] [address] Phone [phone] [facility] e, NA DOCUMENT DISCLAIMER Multiple document versions may exist, please be sure you review the latest version. The information in the [facility] Continuity of Care Document represents a summary [...] No Information Available No Information Available MEDICATIONS Home Medications Medication Instructions Dosage Route Start Date End Date [facility] amlodipine 10 mg Take by mouth once [...] ORAL August 07, 2024 Active VITAL SIGNS Other Other Value Date / Time Height 165 cm August 03, 2024 12:00 AM HEALTH CONCERNS Tuberculosis Testing TST Date Administered TST Date Read TST Result 07/11/2024 07/13/2024 Negative (<5) mm LAB RESULTS Hematology Result Type Result Value Relevant Reference Range Interpre tation Date RDW 19.0 % 11.5 - 14.5 % High August 25, 2024 Hemoglobin x 3 26.1 % 42.0 - 54.0 % Low August 25, 2024 HAKAN 0.9 % 0.0 - 4.0 % - August 25 MCHC 31.9 g/dL 30.0 - 36.0 g/dL - August 25, 2024 MCH 27.2 pg 27.0 - 31.0 pg - August Neutrophils 80.8 % 40.0 - 75.0 % High August Eosinophil 3.4 % 0.0 - 7.0 % - August 25 Basophils 0.9 % 0.0 - 1.5 % - August 25 Lymphocytes 9.4 % 19.0 - 48.0 % Low August Monocytes 4.7 % 3.0 - 10.0 % - August 25, 2024 WBC (No Diff) 8.03 1000/mcL 4.80 - 10.80 1000/mcL - August 25, 2024 Metabolic/Renal Result Type Result Value Relevant Referen [...] 10.3 mg/dL 8.7 - 10.4 mg/dL - Brown paco2024 Ca x P Product 77 0 - [...]
--- OUTSIDE RECORDS SUMMARY | 2024-10-11 12:54 | XMS_ITS | Encounter Summary ---
Author Organization [employer] Address 75 [facility] 7t [place] [address] Care Team Providers Care Equipment Engineering Technician Name Role Phone Andie Whitmore Primary Care Provider [phone] Trevor Restrepo MD Unavailable [phone] Juvenal Cr MD Unavailable [phone] Kamini Chavarria MD Unavailable [phone] Winston Bhagta DPM Unavailable Reason for Visit * Reason Onset Date Comments Medication Question 02/29/2024 Encounter Details Date Type Department Care Team (Late st Contact Info) Description 02/29/2024 Telephone [facility] [address] [place] [address] Andie Whitmore FNP [address] [place] [address] Medication Question Social History Tobacco Use Types [...] was discussed in sick appt on 02/27 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 ant medication pending documented in this encounter Plan of Treatment Not on file documented as of this encounter Visit Diagnoses Not on filedocumented in this encounter Additional Health Concerns Assessment Noted Time PHQ-9 Depression Total Score: 1 12/23/19 23 3:02 PM EDT documented as of this encounter Care Teams Equipment Engineering Technician Relationship Specialty Start Date End Date Andie Whitmore FNP [address] [place] [address] PCP - General Family Medicine 11/04/21 Trevor Restrepo MD [address] [place] [address] Urology 07/29/24 Juvenal Cr MD 100 [facility] 200 [place] [address] Nephrology 07/29/24 Kamini Chavarria MD 15 [facility] 140 [place] [address] Neurology 07/29/24 Winston Bhagat DPM [address] [place] [address] Podiatry 07/29/24 documented as of this encounter
[2024-10-11 14:23] LABS: Prostate Specific Antigen 0.14 ng/mL (<0.05-4.0)
[2024-10-17 16:17] LABS: Testosterone, Total 10 ng/dL (250-1100)
== END 2024-10-11 10:21 | disposition home or self-care (01) ==
LOC: HO.HMGCLDS 10:20
PROVIDERS: PCP Registered Nurse; Visit Provider Urology
DX: Z12.5 Encounter for screening for malignant neoplasm of prostate (principal); C61 Malignant neoplasm of prostate; C79.51 Secondary malignant neoplasm of bone
CPT/HCPCS: 36415; 84153; 84403

== ENCOUNTER 2024-10-30 13:43 | Outpatient (AMB) | payer MEDICARE, MEDICAID, SELFPAY ==
--- NOTE | 2024-10-30 14:05 | A.OFFVIS_ITS ---
Intake Visit Reasons: PET-CT/Labs follow up(Possible GnRH) Intake Note: Patient is present for PET CT/LABS/POSSIBLE [facility] Urology Medication:NONE Antibiotic Allergy:NONE Blood Thinner:NONE Black Jack Dealer Required: No Allergies No Known Allergies [No Known Allergies*] Allergy (Verified 01/01/25 11:52) HPI Comments Details: Darwin is a pleasant male. He is a patient of Dr. Whitmore. He is seen for the following urologic issues - urinary retention with elevated creatinine - prostate cancer Discussed recent labs Continue with abiraterone - month on and month off cycling Six-month follow-up lab work Had PET-CT done yesterday but not red 10/23 P 0.1 T 10 - continue abiraterone 05/24 GnRH, Prolia and DEXA scan - DEXA shows normal bone density 12/22 0.1 - bone scan stable no progression - healed sclerotic areas, CT scan stable no progression 08/24 <0.1 T 3 - GnRH - abiraterone 05/23 P 0.16, T <1 - abiraterone 02/20 P 0.15 T <1 - GnRH, abiraterone 01/21 CT shows stable metastatic prostate cancer Still making small amount of urine Urinary retention Incomplete bladder emptying Currently on dialysis Prostate cancer grade group 5 with metastatic disease - - Current therapy GnRH with antiandrogen 05/24 GnRH with antiandrogen and Prolia 08/24 GnRH with antiandrogen 02/20 GnRH with abiraterone - GnRH Prolia administered 08/23 GnRH therapy with abiraterone - GnRH and Prolia administered 01/20 GnRH therapy with abiraterone - GnRH and Prolia administered 04/21 - PSA Prostate biopsy 06/21 Histologic type: Adenocarcinoma, acinar type Histologic grade: [place] score: - 5+4=9 (right apex), 4+5=9 (left mid, right mid), 4+4=8 (left apex), 4+3=7 (left base, right base) Number cores positive: 6 Total number of cores: 6 % of tissue involved: Greater than 95% Periprostatic fat inv.: Present Seminal vesicle inv.: Not identified Perineural inv.: Present LVI: Suspicious Staging - May 2021 - bone scan and CT scan with metastatic disease - 10/20 CT with sclerotic lesions spinal - 05/22 Bone Scan positive extensive spine - 11/21 CT scan - sclerotic lesions stable, stents in place PFSH Medical History End stage chronic kidney disease ESRD (end stage renal disease) Anemia HTN (hypertension) Creatinine elevation Urinary retention History of upper gastrointestinal bleeding A-V fistula Fusion of lumbar spine Chronic kidney disease Urinary tract infection Enlarged prostate Kidney disease Elevated PSA Anemia Metabolic acidosis Bilateral hydronephrosis Hypocalcemia Acute anemia Acute kidney injury Surgical History History of fusion of cervical spine Hx of esophagogastroduodenoscopy History of transurethral resection of prostate S/P arteriovenous (AV) fistula creation History of hip replacement, total Social History Household Members: Other Household Members Other:: SISTER Housing: House Housing Other:: mobile home Do you presently have visiting nurse or other home services: No Alcohol intake: former Patient Tobacco Use Status: Former Tobacco user Tobacco use type: Cigarette Years Smoked: 50 e-Cigarette/Vaping Use: Former Use Substance Use Type: Marijuana service: No Current occupational status: disabled Review of Systems Const Denies chills and Denies fever(s) Card Reports no additional complaints and Denies syncope Resp Denies cough GI Denies abdominal pain and Denies heartburn Reports as per HPI and Denies change in libido Neuro Denies syncope Psych Denies change in libido Endo Denies change in libido Physical Exam Const General: cooperative, healthy appearing, comfortable and no acute distress Orientation/consciousness: patient oriented x3 HEENT Face and sinus: Yes normal facial exam Mouth: moist mucous membranes Neck Neck: Yes normal visual inspection, Yes full ROM and Yes trachea midline Chest Chest palpation & inspection: normal inspection of the chest Resp Effort & Inspection: normal respiratory effort, able to speak in complete sentences and no respiratory distress GI Inspection: Yes normal to inspection Back/Spine/Pelvis Cervical Spine: normal cervical lordosis Thoracic/Lumbar Spine: thoracic and lumbar spine normal to inspection Skin General skin exam: no rashes or lesions noted Neuro General: patient oriented x3, gait normal, tone normal and moves all extremities Extrem General: Yes normal to inspection and Yes capillary refill normal Assessment & Plan Assessment & Plan (1) Prostate cancer metastatic to bone: Comment: 05/2021 - Grade Group 5 Code(s): C61 - Malignant neoplasm of prostate; C79.51 - Secondary malignant neoplasm of bone Category: Medical (2) Obstructive uropathy: Comment: PCN left side. Bilateral indwelling ureteric stents Code(s): N13.9 - Obstructive and reflux uropathy, unspecified Category: Medical Plan Continue abiraterone Six-month follow-up lab Orders: Orders Prostate Specific Antigen 6 Months C61 - Malignant neoplasm of prostate, C79.51 - Secondary malignant neoplasm of bone Testosterone, Total 6 Months C61 - Malignant neoplasm of prostate, C79.51 - Secondary malignant neoplasm of bone Patient Instructions: This note is constructed using voice recognition software. While every effort has been made to ensure accuracy damage adjuster errors may have been included. Imaging studies, laboratory and physical exam results were discussed and reviewed in detail. No major barriers to patient understanding were identified. An opportunity to ask questions regarding the treatment plan was provided. All questions were answered. The patient expressed understanding and agreement with the above treatment plan. The patient is aware they should contact our office by phone for worsening of their current condition or the appearance of new urologic symptoms. Compliance is encouraged with any medications and followup testing that is ordered. It is a privilege to participate in the urologic care of your patient. If you have any questions or concerns regarding treatment for the above conditions, or other urologic issues, please do not hesitate to contact me. The office telephone contact is [phone]. Sincerely, Dr Trevor Restrepo MD, [facility] - Urology Compassionate Specialist Care for the Genitourinary System Coding Level of Care Code Est Pt Level 3 (22498) Complex EM visit Add On G2211 Diagnoses Prostate cancer metastatic to bone C61; C79.51 Obstructive uropathy N13.9
--- OUTSIDE RECORDS SUMMARY | 2024-10-30 16:20 | XMS_ITS | Encounter Summary ---
Author Organization [facility] Address [address] [place] [address] Phone Care Team Providers Care Magnetic Observer Name Role Phone Unavailable Primary Care Provider Unavailabl e Encounter Details Date Type Department Care Team ([facility] st Contact Info) Description 10/08/2024 Treatment [facility]. [address] [address] Clinton Ortega MD [address] [address] End stage renal disease; Dependence [...] Dialysis Note - Clinton Ortega MD - 10/08/2024 12:00 AM EDT BASIC NOTE Patient: Darwin Stahl : 1960 Note Author: CLINTON ORTEGA MD Service Date: 10/08/2024 Telehealth encounter using audiovisual technology, performed according to state requirements. Appropriate patient consent obtained. This patient was personally seen for a basic visit as part of routine monthly dialysis care for end stage renal disease. Attending Machine Maintenance Repairer: CLINTON ORTEGA Dialysis Location: [facility] Schedule: Shift: 1 ADEQUACY ASSESSMENT Kt/V, Natural Log 1.31 (10/03/24) 1.57 (09/05/24) 1.35 (08/31/24) UREA REDUCTION RATIO (%) 68 (10/03/24) 75 (09/05/24) 69 (08/31/24) BUN 59 (10/03/24) 36 (09/05/24) 75 (08/31/24) BUN Post Dialysis 19 (10/03/24) 9 (09/05/24) 23 (08/31/24) Creatinine 5.81 (10/03/24) 6.52 (09/05/24) 7.57 (08/31/24) Bicarbonate (CO2) 24 (10/03/24) 22 (09/05/24) 23 (08/31/24) Sodium 130 (10/03/24) 128 (09/05/24) 132 (08/31/24) ANEMIA ASSESSMENT Hgb 10.3 (10/17/24) 8.9 (10/03/24) 9.3 (09/19/24) Iron Saturation (TSat) 11 (10/03/24) 27 (09/05/24) 29 (08/31/24) Ferritin 1,108 (10/03/24) 1,253 (09/05/24) 1,120 (08/31/24) Iron 25 (10/03/24) 57 (09/05/24) 60 (08/31/24) TIBC 224 (10/03/24) 214 (09/05/24) 204 (08/31/24) MCV 91.4 (10/03/24) 83.4 (09/05/24) 83.0 (08/31/24) Platelets 232 (10/03/24) 244 (09/05/24) 247 (08/31/24) BMM ASSESSMENT Calcium, Adjusted Total 9.7 10/03/24 9.6 09/14/24 10.1 09/05/24 Calcium 9.4 10/03/24 9.6 09/14/24 10.1 09/05/24 Phosphorus, Serum 8.0 10/03/24 7.4 09/19/24 3.4 09/14/24 Ca*PO4 75.2 10/03/24 32.6 09/14/24 77.8 09/05/24 PTH, Intact 121 10/03/24 64 09/05/24 120 08/31/24 Magnesium 2.0 10/03/24 2.2 09/05/24 2.3 08/31/24 Alkaline Phosphatase 99 10/03/24 99 09/05/24 71 08/31/24 Aluminum 5 08/31/24 NUTRITION ASSESSMENT Albumin 3.6 10/03/24 4.3 09/14/24 4.3 09/05/24 Potassium 4.7 10/03/24 4.8 09/26/24 5.8 09/19/24 ADDITIONAL LABS White Blood Cells 7.1 (10/03/24) 9.0 (09/05/24) 8.4 (08/31/24) Cholesterol 158 (08/31/24) HDL 56 (08/31/24) LDL-Calc 91 (08/31/24) Triglycerides 56 (08/31/24) Hep B Surface Antibody <4 (09/12/24) <4 (07/20/24) <4 (07/04/24) Uric Acid 5.4 (08/31/24) ADDITIONAL COMMENT COMMENTS: 10/01/24 ok 10/08/24 doing well10/15/24 doing well 10/22/24 stable 09/21/24 stable 09/24/24 doing ok 09/28/24 stable 10/15/24 07/16/24 stable 07/31/24 no new issues 08/03/24 doing ok 04/04/24 stable 04/16/24 stable 04/25/24 no new issues 05/07/24 stable 05/14/24 incr bp, refuses bp meds 05/21/24 stable 06/04/24 no new issues 06/1524 c/o restless legs despite on requip 06/20/24 same issues-- has appt w neuro 06/26/24 stable 07/02/24 doing ok 07/09/24 stable Signed by: CLINTON ORTEGA MD on 10/27/2024 at 04:57:00 AM Transcribed by: CLINTON ORTEGA MD on 10/27/2024 at 04:57:00 AM documented in this encounter Plan of Treatment Not on file documented as of this encounter Visit Diagnoses Diagnosis End stage renal disease Dependence on renal dialysis documented in this encounter
--- OUTSIDE RECORDS SUMMARY | 2024-10-30 16:20 | XMS_ITS | Clinical Summary ---
Author Organization [facility] Address [address] [place] [address] Phone Care Team Providers Care Manipulator Operator Name Role Phone Andie Whitmore RN Primary [...] Encounters Date Type Department Care Team Description 10/22/2024 2:15 PM EDT - 10/22/2024 3:50 PM EDT Emergency [facility] Emergency [address] [place] [address] Diallo Ybarra MD Arteriovenous fistula of left upper extremity (CMS/HCC) (Primary Dx); Hemorrhage of arteriovenous fistula, initial encounter (CMS/HCC) Discharge Disposition: Home or Self Care from Last 3 Months Social History Tobacco Use Types Packs/Day Years Used Date Smoking Tobacco: Never Smokeless Tobacco: Never Tobacco Cessation:Counseling Given: Not Answered Sex and Gender Information Value Date Recorded Sex Assigned at Male 10/22/2024 2:24 PM EDT Legal Sex Male 11:02 AM EDT Gender Identity Male 10/22/2024 2:24 PM EDT Sexual Orientation Straight 10/22/2024 2: 24 PM EDT Obstetrics History Last Filed Vital Signs Vital Sign Reading Time Taken Comments Blood Pressure 190/78 10/22/2024 3:03 PM EDT Pulse 70 10/22/2024 3:03 PM EDT Temperature 37.2 ??C (99 ??F) 10/22/2024 3:03 PM EDT Respiratory Rate 18 10/22/2024 3:03 PM EDT Oxygen Saturation 95% 10/22/2024 3:03 PM EDT Inhaled Oxygen Concentration - - Weight 62.1 kg (137 lb) 10/22/2024 3:03 PM EDT Height 160 cm (5' 3 ) 10/22/2024 3:03 PM EDT Body Mass Index 24.27 10/22/2024 3:03 PM EDT Plan of Treatment Upcoming Encounters Date Type Department Care Team (Late st Contact Info) Description 12/06/2024 1:30 PM EDT Office Visit Orthopedic Surgery - [place] [address] [address] Winston Bhagat, DPM [address] [address] Health Maintenance Due Date Last Done Comments [...] 02/24/2024 Social Influencers of Health Screening 02/24/2024 DTaP,Tdap,and Td Vaccines (2 - Td or Tdap) 12/17/2024 12/17/2014 Hypertension/CHF/CAD Annual BMP Blood Test 09/08/2025 09/08/2024 Cholesterol Screening (Lipid Panel) 08/31/2029 08/31/2024, 07/26/2024, 12/13/2023 Zoster Vaccines Completed 03/13/2023, 11/15/2022 Influenza [...] Procedure Name Priority Date/Time Associated Diagnosis Comments ED LACERATION REPAIR Routine 10/22/2024 2:50 PM EDT from Last 3 Months Results * Laceration Repair (10/22/2024 2:50 PM EDT) Narrative Diallo Ybarra MD - 10/22/2024 2:50 PM EDT Diallo Ybarra MD ? 10/22/2024 ??6:07 PM Laceration Repair Date/Time: 10/22/2024 2:50 PM Performed by: Diallo Ybarra MD Authorized by: Diallo Ybarra MD ?? Consent: ??Consent obtained: ??Verbal Comments: ?? With bleeding fistula over left upper extremity, 2 mL of 1% lidocaine with epinephrine injected around the site, then two 5-0 Prolene [id number] stitches applied with bleeding controlled us Diallo Ybarra MD IN CLINIC/BEDSIDE ORDERAB LES Final Result from Last 3 Months Insurance MEDICAID - [place] MEDICARE Care Teams Manipulator Operator Relationship Specialty Start Date End Date Andie Whitmore RN [address] [place] [id number] PCP - General 12/14/23
--- OUTSIDE RECORDS SUMMARY | 2024-10-30 16:20 | XMS_ITS | Encounter Summary ---
Author Organization [employer] Address [address] [place] [address] [address] [place] [address] Care Team Providers Care Table Tender Sludge Name Role Phone Andie Whitmore Primary Care Provider [phone] Trevor Restrepo MD Unavailable [phone] [address] MD Unavailable [phone] Kamini Chavarria MD Unavailable [phone] Winston Bhagat DPM Unavailable [phone] Reason for Referral * Imaging (Urgent) - Closed Specialty Diagnoses / Procedures Referred By Contac t Referred To Contact Cardiology Diagnoses ESRD (end stage renal disease) ([facility]) Primary hypertension Shortness of breath Procedures Transthoracic Echo (TTE) Complete Andie Whitmore FNP [address] [place] [address] Phone: tel: fax: [address] Phone: tel: fax: Referral ID Status Reason Start Date Expiration Date V isits Requested Visits Authorized [id number] Closed Perform Procedure 06/29/2023 06/28/2024 1 1 Reason for Visit * Reason Onset Date Comments Call Back Request 06/21/2023 Encounter Details Date Type Department Care Team (Late st Contact Info) Description 06/21/2023 Telephone [facility] [address] [place] [address] Andie Whitmore FNP [address] [place] [address] Call Back Request Social History Tobacco Use [...] order of the heart. Contact pt at [phone] * Telephone Encounter - Iram Pierre RN [...] just once, had an EKG, and the certified maintenance welder said he was just fine. Patient has [...] having dialysis tomorrow. Please contact pt at [phone] documented in this encounter Plan of Treatment Scheduled Orders Name Type Priority Associated Diagnoses Order Schedule Transthoracic Echo (TTE) Complete Echocardiography Urgent ESRD (end stage renal disease) ([facility]) Primary hypertension Shortness of breath Expected: 06/29/2023 (Approximate), Expires: 06/29/2025 documented as of this encounter Visit Diagnoses Diagnosis ESRD (end stage renal disease) ([facility] Primary End stage renal disease Primary hypertension Unspecified essential hypertension Shortness of breath documented in this encounter Additional Health Concerns Assessment Noted Time PHQ-9 Depression Total Score: 1 12/23/19 23 3:02 PM EDT documented as of this encounter Care Teams Table Tender Sludge Relationship Specialty Start Date End Date Andie Whitmore FNP [address] [place] [address] PCP - General Family Medicine 11/04/21 Trevor Restrepo MD [address] [place] [address] Urology 07/29/24 Juvenal Cr MD [address] [facility] [address] [place] [address] Nephrology 07/29/24 Kamini Chavarria MD [address] [place] [address] [address] [place] [address] Neurology 07/29/24 Winston Bhagat DPM [address] [facility] [address] [place] [address] Podiatry 07/29/24 documented as of this encounter
--- OUTSIDE RECORDS SUMMARY | 2024-10-30 16:20 | XMS_ITS ---
Author Name [facility] Address [address] [place] [address] Phone [phone] Organization [facility] e, NA DOCUMENT DISCLAIMER Multiple document versions may exist, please be sure you review the latest version. The information in the [facility] Continuity of Care Document represents a summary [...] Instructions Dosage Route Start Date End Date [facility] amlodipine 10 mg Take by mouth once [...]
--- OUTSIDE RECORDS SUMMARY | 2024-10-30 16:20 | XMS_ITS | Clinical Summary ---
Author Organization [employer] Address [address] [facility] [address] [place] [address] Care Team Providers Care Fraud Investigator Name Role Phone WernerAndie manning CORINNE Primary Care Provider [phone] Trevor Restrepo MD Unavailable Juvenal Cr MD Unavailable [phone] Kamini Chavarria MD Unavailable [phone] Winston Bhagat DPM Unavailable [phone] Allergies No known active allergies Medications abiraterone [...] Following with Podiatry - Dr. Bhagat at [place] Consult Jun 2024: Debridement of toenails 6-10, with plan to cont topical Jublia. RTC 3 months. Healthcare maintenance 12/12/2023 Overview (12/12/2023): Optometry: CEE 11/10/23 (Dr. Mohr). Noted trace macular edema, follow up in 3 months PSA: hx prostate CA, following with [facility] Heart failure with mildly re duced [...] Exacerbation w/ Hospitalization 08/04 - 08/07/23 at [facility] [place]D on HD: communication with Dr. Cr [...] 02/18/2023 Overview (12/12/2023): Following with Dr. Restrepo ([facility]) Hx of bilateral stent placement ESRD (end stage renal disease) 11/05/2021 Assessment & Plan (04/27/2023 2:16 PM EDT): -Hemodialysis MWF at [address] [place] [address] Dialysis (first shift) -Access: Left arm basilic vein transposition performed on 08/03/2021. -Mar 2023: fistulagram performed, [facility] [place]. Blackburn. Has been working well since Assessment & Plan (12/22/2022 8:12 PM EDT): -Hemodialysis MWF at [address] [place] [address] -Access: Left arm basilic vein transposition performed on 08/03/2021. Have started to access fistula at dialysis -Left AVF w/ +thrill/+bruit Prostate cancer metastatic to bone 11/05/2021 Assessment & Plan (07/29/2024 10:41 PM EST): Newport score ranging from 7 to 9. 10/05/21 cystoscopy with bilateral ureteral stent exchange performed by [facility] Continue to follow with [facility] - Dr. Restrepo Continue to follow with [facility] Previously on Bicalutamide 50mg PO daily through Urology, currently taking Abiraterone 01/24/23: cystoscopy with bilateral stent exchange November 2023: Bone scan stable, no progression Target 3 years hormone therapy then reduction to intermittent anti-androgen Apr 2024: DXA normal Assessment & Plan (04/27/2023 2:17 PM EDT): ?? Newport score ranging from 7 to 9. ?? 10/05/21 cystoscopy with bilateral ureteral stent exchange performed by [facility] ?? Continue to follow with [facility] - Dr. Restrepo ?? Continue to follow with [facility] ?? Previously on Bicalutamide 50mg PO daily through Urology, currently taking Abiraterone ?? 01/24/23: cystoscopy with bilateral stent exchange Assessment & Plan (12/22/2022 8:13 PM EDT): ?? Newport score ranging from 7 to 9. ?? 10/05/21 cystoscopy with bilateral ureteral stent exchange performed by [facility] ?? Continue to follow with [facility] - Dr. Restrepo ?? Continue to follow with [facility] ?? Previously on Bicalutamide 50mg PO [...] HD per pt ?? Denies chest pain, RGANADOS, blurry vision, dizziness, N/V/D Continue with current [...] Encounters Date Type Department Care Team Description 10/12/2024 Population [facility] Risk Score [facility] () Department [address] [place] [phone] Provider, Population Health Generic 10/11/2024 Orders Only GENERIC EXTERNAL DATA DEPARTMENT Provider, Generic External Data 09/27/2024 Patient Outreach [facility] MEDIC[facility] [address] [place] [address] Andie Whitmore FNP Transition Of Care (Tcm) ([facility]) 09/19/2024 Patient Outreach [facility] MEDICINE [address] [place] [address] Andie Whitmore FNP Transition Of Care (Tcm) ([facility] unscheduled) 09/08/2024 Orders Only GENERIC EXTERNAL DATA DEPARTMENT Provider, Generic External Data from Last 3 Months Immunizations Name Administration [...] Procedure Name Priority Date/Time Associated Diagnosis Comments TESTOSTERONE, TOTAL, MALES (ADULT), IA Routine 10/11/2024 10:35 AM EDT PSA, TOTAL Routine 10/11/2024 10:35 AM EDT XR CHEST 1 VIEW Routine 09/09/2024 9:04 [...] 11:25 AM EST Hyperlipidemia, unspecified hyperlipidemia type from Last 3 Months or Most Recently Relevant to Health Maintenance Results * (ABNORMAL) Testosterone, Total, males (Adult), IA (10/11/2024 10:35 AM EDT) [facility] Testosterone, Total 10(A) 250 - 1100 ng/dL [facility] Comment:Men with clinically significant hypogonadalsymptoms and testosterone values repeatedly inthe range of the 200-300 ng/dL or less, maybenefit from testosterone treatment afteradequate risk and benefits counseling.For additional information, please refer tohttp://education.Pharnext/faq/[email or web address](This link is being provided for informational/educational purposes only.)This test was developed and its analytical performancecharacteristics have been determined by [employer] [place], [place]. It hasnot been cleared or approved by the U.S. Food and DrugAdministration. This assay has been validated pursuantto the CLIA regulations and is used for clinicalpurposes.THIS TEST WAS PERFORMED AT:[employer] [place] [address]BNJSJKSHELGA HAYES MD,PHD 10/11/2024 10:3 5 AM EDT 10/11/2024 1:28 PM EDT Generic External Data Provider LAB BLOOD ORDERAB LES Final Result Performing Organization Address City/[facility]/ZIP Co de Phone Number [facility] [address] [place] [phone] * PSA,Total (10/11/2024 10:35 AM EDT) Prostate Specific Antigen 0.14 <0.05 - 4.0 ng/mL [facility] Comment:PSA methodology: Wild Emery i ChemiluminescentMicroparticle Immunoassay (CMIA) 10/11/2024 10:3 5 AM EDT 10/11/2024 1:28 PM EDT Generic External Data Provider LAB BLOOD ORDERAB LES Final Result Performing Organization Address [facility]/ZIP Co de Phone Number [facility] [address] [place] [phone] * XR Chest 1 View (09/09/2024 9:04 AM EST) Anatomical Region Laterality Modality Chest Radiographic Debra ging 09/09/2024 9:04 AM EST Narrative 09/09/2024 9:06 AM EST ? [facility] ?[address] ?[place] [address] ?XRay Report ? Signed ? Patient: Maribeth,Darwin ?MR#: [id number] ? : 1960 ?Acct:[id number] ? Age/Sex: 64 / M ?ADM Date: 09/08/24 ? Loc: [facility] ?467-1 ? Attending Dr: Jer Bermudez MD ? Ordering Physician: Jer Bermudez MD ?? Date of Service: 09/09/24 ?? Procedure(s): XR chest 1V ?? Accession Number(s): [id number] ? cc: Jer Bermudez MD; Andie Whitmore ? CLINICAL HISTORY: Hypoxia ? 1 view chest x-ray ? Comparison: CT/SR - CT CHEST WO IV CON - 09/08/24 11:21 EST ?? CR/MA/SR - XR CHEST 1V - 08/04/23 15:55 EST ? Findings: ?? Similar vascular congestion, pulmonary edema, small bilateral pleural ?? effusions tzcaq-tygxaeo-urzw-left. Mild atelectatic basilar lung changes. ?? Stable cardiomegaly. Normal mediastinal contour. ?? Bones unchanged with arthritic changes both shoulders. Upper abdomen ?? unremarkable. ? Impression: ?? Similar congestive changes. ? This document has been electronically signed by: Malick Mesa MD on ?? 09/09/2024 09:04:49 ? Dictated By: ?Malick Mesa MD ? Signed By: ?<Electronically signed by Malick Mesa MD in OV> ? 09/09/24 09 ? DD/ 3 ? TD/TT: 09/09/24903 ? Japanese Interpreter: ? Procedure Note Rosemarie Mayorga - 09/09/[address] [address] XRay Report Signed Patient: Emilia Stahl#: [id number] : 1Acct:[id number] Age/Sex: 64 / MADM Date: 09/08/24 Loc: [facility] 467-[address]: Jer Bermudez MD Ordering Physician: Jer Bermudez MD Date of Service: 09/09/24 Procedure(s): XR chest 1V Accession Number(s): [id number] cc: Jer Bermudez MD; Andie Whitmore CLINICAL HISTORY: Hypoxia 1 view chest x-ray Comparison: CT/SR - CT CHEST WO IV CON - 09/08/24 11:21 EST CR/MA/SR - XR CHEST 1V - 08/04/23 15:55 EST Findings: Similar vascular congestion, pulmonary edema, small bilateral pleural effusions iaqwh-wueyyqa-saly-left. Mild atelectatic basilar lung changes. Stable cardiomegaly. Normal mediastinal contour. Bones unchanged with arthritic changes both shoulders. Upper abdomen unremarkable. Impression: Similar congestive changes. This document has been electronically signed by: Malick Mesa MD on 09/09/2024 09:04:49 Dictated By: Malick Mesa MD Signed By: <Electronically signed by Malick Mesa MD in OV> 09/09/24905 DD/ 3 TD/TT: 09/09/24903 Japanese Interpreter: [facility] External Provider IMG XR PROCEDURES Edited Result - Final * NM Lung Perfusion (09/09/2024 8:33 AM EST) Anatomical Region Laterality Modality Body Nuclear Medicine 09/09/2024 8:33 AM EST Narrative 09/09/2024 8:35 AM EST ? [facility] ?[address] ?[place] [address] ?Nuclear Medicine Report ? Signed ? Patient: Maribeth,Darwin ?MR#: [id number] ? : 1960 ?Acct:[id number] ? Age/Sex: 64 / M ?ADM Date: 02/08/25 ? Loc: [facility] ?467-1 ? Attending Dr: Jer Bermudez MD ? Ordering Physician: Marvin Hollins ?? Date of Service: 09/08/24 ?? Procedure(s): NM pul perfusion ?? Accession Number(s): [id number] ? cc: Marvin Hollins; Andie WhitmoreP ? [...] ? DD/ 2 ? TD/TT: 09/09/24832 ? Japanese Interpreter: ? Procedure Note Dongabrielahailey, Image - 09/09/2024 [place] [address] Nuclear Medicine Report Signed Patient: Emilia Stahl#: [id number] : 1960cct:[id number] Age/Sex: 64 / MADM Date: 09/08/24 Loc: [facility] 467-[address]: Jer Bermudez MD Ordering Physician: Marvin Hollins Date of Service: 09/08/24 Procedure(s): NM pul perfusion Accession Number(s): [id number] cc: Marvin Hollins; Andie Whitmore CLINICAL HISTORY: hypoxia, hx of malignancy, sob r o PE NM Lung Perfusion Comparison: None Findings: 4.0 mCi technetium 99m MAA used. No perfusion defects. IMPRESSION: No perfusion defects. This document has been electronically signed by: Solange Mosqueda MD on 09/09/2024 08:33:03 Dictated By: Solange Mosqueda MD Signed By: <Electronically signed by Solange Mosqueda MD in OV> 09/09/24833 DD/ 2 TD/TT: 09/09/24832 Japanese Interpreter: [facility] External Provider IMG NM PROCEDURES Edited Result - Final * CT Chest w/o Contrast (09/08/2024 1:00 PM EST) Anatomical Region Laterality Modality Body, Chest Computed Tomogra phy 09/08/2024 1:00 PM EST Narrative 09/08/2024 1:02 PM EST ? [facility] ?[address] ?[place] [address] ? CT Scan Report ? Signed ? Patient: Maribeth,Darwin ?MR#: [id number] ? : 1960 ?Acct:[id number] ? Age/Sex: 64 / M ?ADM Date: 09/08/24 ? Loc: HO.ED ? Attending Dr: ? Ordering Physician: Marvin Hollins ?? Date of Service: 09/08/24 ?? Procedure(s): CT chest wo IV con ?? Accession Number(s): [id number] ? cc: Marvin Hollins; Andie Whitmore [employer] ? Report Number: ?? [id number]: Total DLP = ??272.00 mGy-cm ? CLINICAL HISTORY: sob cough hx malignancy ? CT chest without contrast ? Comparison: CR/MA/SR - XR CHEST 1V - 08/04/23 15:55 EST ?? CR/SR - XR CHEST 2V - 07/19/23 13:04 EST ?? CT/MA - CT CHEST WO CON - 04/02/21 [...] DD/ 1300 ? TD/TT: 09/08/24 1300 ? Japanese Interpreter: ? Procedure Note Donotuseinterpreter, Image - 09/08/[address] [address] [address] Scan Report Signed Patient: Darwin StahlMR#: [id number] : 1Acct:[id number] Age/Sex: 64 / MADM Date: 09/08/24 Loc: HO.ED Attending Dr: Ordering Physician: Marvin Hollins Date of Service: 09/08/24 Procedure(s): CT chest wo IV con Accession Number(s): [id number] cc: Marvin Hollins; Andie Whitmore DAY [employer]TER Report Number: [id number]: Total DLP = 272.00 mGy-cm CLINICAL HISTORY: sob cough hx malignancy CT chest without contrast Comparison: CR/MA/SR - XR CHEST 1V - 08/04/23 15:55 EST CR/SR - XR CHEST 2V - 07/19/23 13:[address]/MA - CT CHEST WO CON - 04/02/21 [...] 09/08/24 1302 DD/ 1300 TD/TT: 09/08/24 1300 Japanese Interpreter: [facility] External Provider IMG CT PROCEDURES Edited Result - Final * Red blood count (09/08/2024 11:00 AM EST) Red Blood Cells: [id number] AP RC TRANSFUSED 09/08/24 1204 [facility] 09/08/2024 11:0 0 AM EST 09/08/2024 11:04 AM EST Generic External Data Provider LAB BLOOD ORDERAB LES Final Result [facility] [address] [place] [phone] * Type and screen (09/08/2024 11:00 AM EST) Blood Type AP [facility] Antibody Screen NEGATIVE [facility] 09/08/2024 11:0 0 AM EST 09/08/2024 11:04 AM EST Narrative [facility] - 09/08/2024 3:17 PM EST [...] Yasmin 09/08/24 at 1044 by CHON. No Generic External Data Provider LAB BLOOD BANK TE ST ORDERABLES Final Result Performing Organization Address [facility] Co de Phone Number [facility] [address] [place] [phone] * SARS-CoV-2 RNA, Influenza A/B, and RSV RNA, Ql NAAT (09/08/2024 10:25 AM EST) Influenza A PCR NEGATIVE Negative [facility] Influenza B PCR NEGATIVE Negative [facility] Resp Syncy Virus RNA Qual PCR NEGATIVE Negative [facility] SARS COV2 PCR NEGATIVE Negative [facility] Comment:All test results mus t [...] use by authorized laboratories.Testing performed on the Ex[employer]bit GeneXpert utilizingreal-time RT-PCR.All SARS CoV2 and positive influenza A/B results arereported to [facility]. 09/08/2024 10:2 5 AM EST 09/08/2024 10:37 AM EST Generic External Data Provider LAB MICROBIOLOGY - GENERAL ORDERABLES Final Result Performing Organization Address [facility] Co de Phone Number [facility] [address] [place] [phone] * (ABNORMAL) CBC auto differential (09/08/2024 10:25 AM EST) White Blood Count 6.9 4.8 - 10.8 X10*3/uL [facility] Red Blood Count 2.47(L) 4.60 - 5.80 X10*6/uL [facility] Hemoglobin 7.0(LL) 14.0 - 18.0 g/dl [facility] Comment:Results of HGB jiang d to and read back by Yasmin 09/08/24 at 1044 by CHON. Hematocrit 20.8(LL) 42.0 - 52.0 % [facility] Comment:Results of HCT jiang d to and read back by Yasmin 09/08/24 at 1044 by CHON. Mean Corpuscular Volume 84.2 80.0 - 98.0 fL [facility] Mean Corpuscular Hemoglobin 28.3 27.0 - 33.0 pg [facility] Mean Corpuscular HGB Conc 33.7 31.0 - 36.0 g/dl [facility] Red Cell Distribution Width 18.9(H) 11.0 - 16.0 % [facility] Platelet Count 191 160 - 400 X10*3/uL [facility] Mean Platelet Volume 11.1 9.4 - 12.4 fL [facility] Neutrophils Percent Auto 79.1(H) 45 - 73 % [facility] Imm Gran Pct Auto 0.6(H) 0.0 - 0.4 % [facility] Lymphocytes Percent Auto 14.1(L) 20 - 40 % [facility] Monocytes Percent Auto 4.5 2 - 11 % [facility] Eosinophils Percent Auto 1.3 0 - 4 % [facility] Basophils Percent Auto 0.4 0 - 2 % [facility] NRBC Pct Auto 0.0 0.0 - 0.2 /100WBC [facility] Neutrophils Absolute Auto 5.5 2.0 - 8.3 x10*3/uL [facility] Imm Gran Abs Auto 0.04(H) 0.00 - 0.03 X10*3/uL [facility] Lymphocytes Absolute Auto 1.0(L) 1.2 - 4.9 X10*3/uL [facility] Monocytes Absolute Auto 0.3 0.1 - 1.2 X10*3/uL [facility] Eosinophils Absolute Auto 0.1 0.0 - 0.4 X10*3/uL [facility] Basophils Absolute Auto 0.0 0.0 - 0.2 X10*3/uL [facility] NRBC Abs Auto 0.000 0.0 - 0.012 X10*3/uL [facility] 09/08/2024 10:2 5 AM EST 09/08/2024 10:37 AM EST Generic External Data Provider LAB BLOOD ORDERAB LES Final Result Performing Organization Address [facility] Co de Phone Number [facility] [address] [place] [phone] * (ABNORMAL) Iron And Total Iron Binding Capacity (09/08/2024 10:25 AM EST) [facility] Iron 39(L) 45 - 160 mcg/dL [facility] Total Iron Binding Capacity 156(L) 228 - 428 mcg/dL [facility] Percent Iron Saturation 25 15 - 50 % [facility] Unsaturated Iron Binding 117 ug/dL [facility] 09/08/2024 10:2 5 AM EST 09/08/2024 10:37 AM EST us Generic External Data Provider LAB BLOOD ORDERAB LES Final Result Performing Organization Address City/[facility]/ZIP Co de Phone Number [facility] [address] [place] [phone] * (ABNORMAL) B Type Natriuretic Peptide (BNP) (09/08/2024 10:25 AM EST) [facility] B Type Natriuretic Peptide 4,852(H) <100 pg/mL [facility] Comment:For those patients w ho are being treated with Natrecor(nesiritide, recombinant BNP), BNP testing should beperformed at least two hours post treatment in order toensure that only endogenous levels of BNP are detected. 09/08/2024 10:2 5 AM EST 09/08/2024 10:53 AM EST Generic External Data Provider LAB BLOOD ORDERAB LES Final Result Performing Organization Address [facility] Co de Phone Number [facility] [address] [place] [phone] * Magnesium (09/08/2024 10:25 AM EST) Magnesium 1.8 1.6 - 2.6 mg/dL [facility] 09/08/2024 10:2 5 AM EST 09/08/2024 10:37 AM EST us Generic External Data Provider LAB BLOOD ORDERAB LES Final Result Performing Organization Address [facility] Phone Number [facility] [address] [place] [phone] * Lactic Acid (09/08/2024 10:25 AM EST) Lactic Acid 0.8 0.5 - 2.0 mmol/L [facility] 09/08/2024 10:2 5 AM EST 09/08/2024 10:37 AM EST Generic External Data Provider LAB BLOOD ORDERAB LES Final Result Performing Organization Address [facility] Phone Number [facility] [address] [place] [phone] * (ABNORMAL) Comprehensive Metabolic Panel (09/08/2024 10:25 AM EST) Sodium 135 135 - 145 mmol/L [facility] Potassium 3.1(L) 3.3 - 5.1 mmol/L [facility] Chloride 96 96 - 108 mmol/L [facility] Carbon Dioxide 26 22 - 29 mmol/L [facility] Anion Gap 16 12 - 20 [facility] Urea Nitrogen (BUN) 17(H) 9 - 16 mg/dL [facility] Creatinine, Serum 3.90(H) 0.5 - 1.4 mg/dL [facility] Creatinine Clr Calc Pharmacy 15.6 [facility] Comment:eGFR (calculated fro m the MDRD study equation) and eCrCl(calculated from the Cockcroft-Gault equation) are based ondifferent parameters and may not yield comparable results.If eCrCl result is absurd, please check patient'sheight/weight. Estimated Glomerular Filt Rate 16 [facility] Comment:Chronic Kidney Disea se: Estimated GFR < 60 mL/min/1.54f8Mcqcpx Kidney Disease: Estimated GFR < 15 mL/min/1.73m2 Glucose 93 60 - 115 mg/dL [facility] Calcium 9.5 8.4 - 10.2 mg/dL [facility] Bilirubin, Total 0.8 0.0 - 1.0 mg/dL [facility] Aspartate Amino Transferase 26 5 - 37 U/L [facility] Alanine Aminotransferase 7 0 - 40 U/L [facility] Total Protein 6.5 6.5 - 8.0 g/dL [facility] Albumin Level 3.7 3.5 - 5.0 g/dL [facility] Alkaline Phosphatase 113 39 - 117 U/L [facility] 09/08/2024 10:2 5 AM EST 09/08/2024 10:37 AM EST us Generic External Data Provider LAB BLOOD ORDERAB LES Final Result [facility] [address] [place] [phone] * Lipid Panel, Standard (07/26/2024 11:25 AM EST) Triglycerides 54 <150 mg/dL [facility] Comment:Desirable Triglyceri de: less than 150 mg/dLBorderline High Triglyceride 150-199 mg/dLHigh Triglyceride: 200-499 mg/dLVery High Triglyceride: greater than or equal to 5OO mg/dL Cholesterol 142 <200 mg/dL [facility] Comment:Desirable Cholestero l: less than 200 mg/dLBorderline High Cholesterol: 200-239 mg/dLHigh Cholesterol: greater than 239 mg/dL LDL Cholesterol Calculated 83 <100 mg/dL [facility] Comment:Desirable LDL: less than 100 mg/dLNear Optimal/Above Optimal LDL: 110- 129 mg/dLBorderline High LDL: 130-159 mg/dLHigh LDL: 160-189 mg/dLVery High LDL: greater than or equal to 190 mg/dL HDL Cholesterol 49 >40 mg/dL [facility] Comment:Desirable HDL: great er than 40 mg/dL Note: This HDL assay may give artificially low results in patients with liver disease. Blood Venous blood specimen / Unknown 07/26/2024 11:25 AM EST 07/26/2024 1:05 PM EST us Andie Whitmore [employer] LAB BLOOD ORDERABLES Final Res ult [facility] [address] [place] [phone] from Last 3 Months or Most Recently Relevant to Health Maintenance Insurance MEDICARE [facility] STANDARD Care Teams Fraud Investigator Relationship Specialty Start Date End Date Andie Whitmore FNP [address] [place] [address] PCP - General Family Medicine 11/04/21 Trevor Restrepo MD [address] [place] [address] Urology 07/29/24 Juvenal Cr MD [address] [facility] [address] [place] [phone] Nephrology 07/29/24 Kamini Chavarria MD [address] [place] [address] [address] [place] [address] Neurology 07/29/24 Winston Bhagat DPM [address] [place] [address] Podiatry 07/29/24
--- OUTSIDE RECORDS SUMMARY | 2024-10-30 16:20 | XMS_ITS | Clinical Summary ---
Author Organization [facility] Address [address] [place] [address] Phone Care Team Providers Care Roulette Dealer Name Role Phone Unavailable Primary Care Provider [...] Date Type Department Care Team Description 10/22/2024 Treatment [facility] [address] [phone] Juvenal Cr MD End stage renal disease; Dependence on renal dialysis 10/15/2024 Treatment [facility] [address] [address] Juvenal Cr MD End stage renal disease; Dependence on renal dialysis 10/08/2024 Treatment [facility] [address] [phone] Juvenal Cr MD End stage renal disease; Dependence on renal dialysis 10/01/2024 Treatment [facility] [address] [phone] Juvenal Cr MD End stage renal disease; Dependence on renal dialysis 09/28/2024 Treatment [facility] [address] [address] Juvenal Cr MD End stage renal disease; Dependence on renal dialysis 09/27/2024 Treatment [facility] [address] [phone] Juvenal Cr MD 09/19/2024 Treatment [facility] [address] [phone] Juvenal Cr MD 08/31/2024 Orders Only [facility] [address] [address] Juvenal Cr MD 08/03/2024 Treatment [facility] [address] [address] Juvenal Cr MD from Last 3 Months [...] 01/22/2023 01/22/2022, 11/27/2021 Influenza Vaccine (#1) 2024 , 05/11/2020, 07/24/2019 Procedures Procedure Name Priority Date/Time Associated Diagnosis Comments PHOSPHATE ( PHOSPHORUS) Routine 10/26/2024 3:00 AM EDT LIH (HC) Routine 10/26/2024 3:00 AM EDT HEMOGLOBIN AND HEMATOCRIT, BLOOD Routine 10/17/2024 3:00 AM EDT HEPATITIS B SURFACE ANTIGEN W/REFL CONFIRM Routine [...] POTASSIUM Routine 09/26/2024 3:00 AM EST LIH () Routine 09/26/2024 3:00 AM EST PHOSPHATE ( PHOSPHORUS) Routine 09/19/2024 3:00 AM EST LIH () Routine 09/19/2024 3:00 AM EST POTASSIUM Routine 09/19/2024 3:00 AM EST HEMOGLOBIN AND HEMATOCRIT, BLOOD Routine 09/19/2024 3:00 AM EST LIH () Routine 09/14/2024 3:00 AM EST CALCIUM PHOSPHORUS PRODUCT, ADJUSTED (HC) Routine 09/14/2024 3:00 AM EST COLLECTION DATE () Routine 09/14/2024 3:00 AM EST HEP B CORE AB, TOTAL W/REFLEX IGM (HC) Routine 09/12/2024 3:00 AM EST HEPATITIS B SURFACE ANTIGEN W/REFL CONFIRM Routine 09/12/2024 3:00 AM EST HEPATITIS B SURFACE ANTIBODY QUANT Routine 09/12/2024 3:00 AM EST LIH (HC) Routine 09/12/2024 3:00 AM EST POTASSIUM Routine [...] AND DIFFERENTIAL Routine 08/31/2024 3:00 AM EST OCCULT BLOOD X 3, STOOL Routine 01/22/2022 from Last 3 Months or Most Recently Relevant to Health Maintenance Results * LIH (10/26/2024 3:00 AM EDT) Only the most recent of8 resultswithin the time period is included. Lipemia Normal Normal [facility] Icterus Normal Normal [facility] Hemolysis Normal Normal [facility] 10/26/2024 3:00 AM EDT 10/27/2024 1:10 PM EDT us Juvenal Cr MD LAB [id number] SOLICITED RESULTS Final Result [facility] [address] [place] [address] * (ABNORMAL) Phosphorus (10/26/2024 3:00 AM EDT) Only the most recent of2 resultswithin the time period is included. Phosphorus, Serum 9.8(H) 2.5 - 5.0 mg/dL [facility] 10/26/2024 3:00 AM EDT 10/27/2024 1:10 PM EDT Juvenal Cr MD LAB BLOOD ORDERABLES Final Re sult Performing Organization Address [facility] de Phone Number [facility] [address] [place] [address] * (ABNORMAL) Hemoglobin and hematocrit (10/17/2024 3:00 AM EDT) Only the most recent of2 resultswithin the time period is included. Hgb 10.3(L) 13.7 - 17.5 g/dL [facility] Hematocrit 32.5(L) 40.1 - 51.0 % [facility] Hemoglobin x 3 30.9(L) 41.1 - 52.5 g/dL [facility] 10/17/2024 3:00 AM EDT 10/18/2024 1:27 PM EDT Juvenal Cr MD LAB BLOOD ORDERABLES Final Re sult Performing Organization Address [facility] de Phone Number [facility] [address] [place] [address] * (ABNORMAL) Kt/V Natural Log, URR (10/03/2024 [...] 3:47 PM EST Juvenal Cr MD LAB [id number] SOLICITED RESULTS Final Result [facility] [address] [place] [address] * (ABNORMAL) Calcium Phosphorus Product, Adjusted (10/03/2024 3:00 AM EST) Only the most recent of4 resultswithin the time period is included. Albumin 3.6 3.6 - 5.4 g/dL [facility] Calcium 9.4 8.6 - 10.3 mg/dL [facility] Phosphorus, Serum 8.0(H) 2.5 - 5.0 mg/dL [facility] Ca*PO4 75.2(A) <55.0 mg2/dL2 [facility] Calcium, Adjusted Total 9.7 8.6 - 10.3 mg/dL [facility] CA*PO4 CORRCTD 77.6(A) <55.0 mg2/dL2 [facility] 10/03/2024 3:00 AM EST 10/04/2024 3:47 PM EST Juvenal Cr MD LAB [id number] SOLICITED RESULTS Final Result Performing Organization Address [facility] de Phone Number [facility] [address] [place] [address] * Hepatitis B Surface Ag w/Reflex Confirmation (10/03/2024 3:00 AM EST) Only the most recent of4 resultswithin the time period is included. Hep B Surface Antigen Negative Negative [facility] 10/03/2024 3:00 AM EST 10/04/2024 3:47 PM EST Juvenal Cr MD LAB BLOOD ORDERABLES Final Re sult Performing Organization Address [facility] Co de Phone Number [facility] [address] [place] [address] * (ABNORMAL) TSAT (10/03/2024 3:00 AM EST) Only the most recent of3 resultswithin the time period is included. Iron 25(L) 65 - 175 ug/dL [facility] Transferrin 160(L) 215 - 365 mg/dL [facility] TIBC 224 211 - 406 ug/dL [facility] Iron Saturation (TSat) 11(L) 22 - 52 % [facility] 10/03/2024 3:00 AM EST 10/04/2024 3:47 PM EST us Juvenal Cr MD LAB BLOOD ORDERABLES Final Re sult [facility] [address] [place] [address] * (ABNORMAL) CBC and Differential (10/03/2024 3:00 AM EST) Only the most recent of3 resultswithin the time period is included. [facility] DIFFERENTIAL MANUAL, 2 Not Indicated [facility] White [...] ORDERABLES Final Re sult Performing Organization Address [facility] de Phone Number [facility] [address] [place] [address] * (ABNORMAL) ALT (10/03/2024 3:00 AM EST) Only the most recent of3 resultswithin the time period is included. ALT (SGPT) <7(L) 10 - 49 U/L [facility] 10/03/2024 3:00 AM EST 10/04/2024 3:47 PM EST Juvenal Cr MD LAB BLOOD ORDERABLES Final Re sult Performing Organization Address [facility] Phone Number [facility] [address] [place] [address] * AST (10/03/2024 3:00 AM EST) Only the most recent of3 resultswithin the time period is included. AST (SGOT) 14 <34 U/L [facility] 10/03/2024 3:0 0 AM EST 10/04/2024 3:47 PM EST Juvenal Cr MD LAB BLOOD ORDERABLES Final Re sult Performing Organization Address [facility] de Phone Number [facility] [address] [place] [address] * (ABNORMAL) Protein, total (10/03/2024 3:00 AM EST) Only the most recent of3 resultswithin the time period is included. Total Protein 5.9(L) 6.4 - 8.9 g/dL [facility] 10/03/2024 3:00 AM EST 10/04/2024 3:47 PM EST Juvenal Cr MD LAB BLOOD ORDERABLES Final Re sult Performing Organization Address [facility] Co de Phone Number [facility] [address] [place] [address] [place] [address] * Alkaline phosphatase (10/03/2024 3:00 AM EST) Only the most recent of3 resultswithin the time period is included. Alkaline Phosphatase 99 46 - 116 U/L [facility] 10/03/2024 3:00 AM EST 10/04/2024 3:47 PM EST Juvenal Cr MD LAB BLOOD ORDERABLES Final Re sult Performing Organization Address [facility] de Phone Number [facility] [address] [place] [address] * (ABNORMAL) PTH, Intact (10/03/2024 3:00 AM [...] ORDERABLES Final Re sult Performing Organization Address [facility] de Phone Number [facility] [address] [place] [address] * Magnesium (10/03/2024 3:00 AM EST) Only the most recent of3 resultswithin the time period is included. Magnesium 2.0 1.9 - 2.7 mg/dL [facility] 10/03/2024 3:00 AM EST 10/04/2024 3:47 PM EST Juvenal Cr MD LAB BLOOD ORDERABLES Final Re sult Performing Organization Address [facility] Co de Phone Number [facility] [address] [place] [address] * (ABNORMAL) Lactate dehydrogenase (10/03/2024 3:00 AM EST) Only the most recent of3 resultswithin the time period is included. LDH 258(H) 120 - 246 U/L [facility] 10/03/2024 3:00 AM EST 10/04/2024 3:47 PM EST Juvenal Cr MD LAB BLOOD ORDERABLES Final Re sult Performing Organization Address [facility] Co de Phone Number [facility] [address] [place] [address] * (ABNORMAL) Glucose, random (10/03/2024 3:00 AM EST) Only the most recent of3 resultswithin the time period is included. Glucose 129(H) 74 - 109 mg/dL [facility] 10/03/2024 3:00 AM EST 10/04/2024 3:47 PM EST Juvenal Cr MD LAB BLOOD ORDERABLES Final Re sult Performing Organization Address [facility] de Phone Number [facility] [address] [place] [address] * (ABNORMAL) Ferritin (10/03/2024 3:00 AM EST) Only the most recent of3 resultswithin the time period is included. Ferritin 1,108(H) 22 - 322 ng/mL [facility] 10/03/2024 3:00 AM EST 10/04/2024 3:47 PM EST Juvenal Cr MD LAB BLOOD ORDERABLES Final Re sult Performing Organization Address [facility] de Phone Number [facility] [address] [place] [address] * (ABNORMAL) Creatinine, serum (10/03/2024 3:00 AM EST) Only the most recent of3 resultswithin the time period is included. Creatinine 5.81(H) 0.70 - 1.30 mg/dL [facility] 10/03/2024 3:00 AM EST 10/04/2024 3:47 PM EST us Juvenal Cr MD LAB BLOOD ORDERABLES Final Re sult Performing Organization Address [facility] de Phone Number [facility] [address] [place] [address] * Bilirubin, total (10/03/2024 3:00 AM EST) Only the most recent of3 resultswithin the time period is included. Total Bilirubin 0.4 0.3 - 1.2 mg/dL [facility] 10/03/2024 3:00 AM EST 10/04/2024 3:47 PM EST us Juvenal Cr MD LAB BLOOD ORDERABLES Final Re sult Performing Organization Address [facility] Phone Number [facility] [address] [place] [address] * (ABNORMAL) Electrolyte panel (10/03/2024 3:00 AM [...] ORDERABLES Final Re sult Performing Organization Address [facility] de Phone Number [facility] [address] [place] [address] * Potassium (09/26/2024 3:00 AM EST) Only the most recent of3 resultswithin the time period is included. Potassium 4.8 3.4 - 5.0 mEq/L [facility] 09/26/2024 3:00 AM EST 09/27/2024 1:02 PM EST us Juvenal Cr MD LAB BLOOD ORDERABLES Final Re sult Performing Organization Address [facility] de Phone Number [facility] [address] [place] [address] * Collection Date (09/14/2024 3:00 AM EST) Collection Date See Comment [facility] Comment: Patient sample received may exceed specimen stability, based on the collection date electronically provided. ??When reviewing patient results, verify collection information and consider specimen stability before acting on any critical or panic results. 09/14/2024 3:00 AM EST us Juvenal Cr MD LAB [id number] SOLICITED RESULTS Final Result Performing Organization Address [facility] de Phone Number [facility] [address] [place] [address] * Hep B Core Ab, Total w/Reflex IgM (09/12/2024 3:00 AM EST) Pathologist [facility] HBc Total Ab, S Negative Negative [facility] 09/12/2024 3:00 AM EST 09/13/2024 3:03 PM EST us Juvenal Cr MD LAB [id number] SOLICITED RESULTS Final Result Performing Organization Address [facility] de Phone Number [facility] [address] [place] [address] * (ABNORMAL) Hepatitis B Surface Antibody (09/12/2024 3:00 AM EST) Hep B Surface Antibody <4(A) mIU/mL [facility] Comment: Interpretation: <10: No Immunity >=10: Probable Immunity 09/12/2024 3:00 AM EST 09/13/2024 3:03 PM EST us Juvenal Cr MD LAB BLOOD ORDERABLES Final Re sult Performing Organization Address [facility]/ZIP Co de Phone Number [facility] [address] [place] [address] * Confirmation Test HCV (08/31/2024 3:00 AM EST) Hep C Ab Confirmation Not needed [facility] 08/31/2024 3:00 AM EST 09/01/2024 1:35 PM EST Juvenal Cr MD LAB BLOOD ORDERABLES Final Re sult Performing Organization Address [facility] Co de Phone Number [facility] [address] [place] [address] * HEPATITIS C ABS W/REFLEX RNA DETECTR (08/31/2024 3:00 AM EST) Hep C Virus Ab Non-Reacti ve Non-Reacti ve [facility] 08/31/2024 3:00 AM EST 09/01/2024 1:41 PM EST Juvenal Cr MD LAB [id number] SOLICITED RESULTS Final Result Performing Organization Address [facility] de Phone Number [facility] [address] [place] [address] * Aluminum level (08/31/2024 3:00 AM EST) Aluminum 5 1 - 20 ug/L [facility] 08/31/2024 3:00 AM EST 09/01/2024 1:40 PM EST Juvenal Cr MD LAB BLOOD ORDERABLES Final Re sult Performing Organization Address [facility] Co de Phone Number [facility] [address] [place] [address] * Uric Acid (08/31/2024 3:00 AM EST) Uric Acid 5.4 4.4 - 7.6 mg/dL [facility] 08/31/2024 3:00 AM EST 09/01/2024 1:41 PM EST us Juvenal Cr MD LAB BLOOD ORDERABLES Final Re sult [facility] [address] [place] [address] * (ABNORMAL) Lipid panel (08/31/2024 3:00 AM [...] Final Re sult [facility] [address] [place] [address] * Occult blood x 3, stool (01/22/2022) Occult Blood, Stool #1 Negative Negative [facility] Comment: Performed by [facility]. Occult Blood, Stool #2 Negative Negative [facility] Comment: Performed by [facility]. Collection Time 600 [facility] 01/22/2022 01/27/2022 1:2 3 PM EDT Narrative [facility] - 01/27/2022 Unless otherwise specified, test(s) performed at: [place] [address] IMPLEMENT MECHANIC: Cruzito Knutson M.D. For any questions, please call customer service at FREQUENCY:OTHER Resulting Agency Comment Specimen source: Occult Blood Card Juvenal Cr MD LAB BODY FLUIDS AND STOOLS OR DERABLES Final Result Performing Organization Address [facility] Co de Phone Number [facility] from Last 3 Months or Most Recently Relevant to Health Maintenance Insurance [place]
--- OUTSIDE RECORDS SUMMARY | 2024-10-30 16:20 | XMS_ITS | Encounter Summary ---
Author Organization [employer] Address [address] [place] [address] Care Team Providers Care Fish Straightener Name Role Phone Andie Whitmore Primary Care Provider [phone] Trevor Restrepo MD Unavailable [phone] Juvenal Cr MD Unavailable [phone] Kamini Chavarria MD Unavailable Winston Bhagat DPM Unavailable [phone] Reason for Visit * Reason Onset Date Comments Medication Question 02/29/2024 Encounter Details Date Type Department Care Team (Late st Contact Info) Description 02/29/2024 Telephone [facility] [address] [place] [address] Andie Whitmore FNP [address] [place] [address] Medication Question Social History Tobacco Use Types [...] was discussed in sick appt on 02/27 account underwriter does not see ant medication pending documented in this encounter Plan of Treatment Not on file documented as of this encounter Visit Diagnoses Not on filedocumented in this encounter Additional Health Concerns Assessment Noted Time PHQ-9 Depression Total Score: 1 12/23/19 23 3:02 PM EDT documented as of this encounter Care Teams Fish Straightener Relationship Specialty Start Date End Date Andie Whitmore FNP [address] [place] [address] PCP - General Family Medicine 11/04/21 Trevor Restrepo MD [address] [place] [address] Urology 07/29/24 Juvenal Cr MD [address] [facility] [address] [place] [address] Nephrology 07/29/24 Kamini Chavarria MD [address] [facility] [facility] [address] [place] [address] Neurology 07/29/24 Winston Bhagat DPM [address] [place] [address] Podiatry 07/29/24 documented as of this encounter
--- OUTSIDE RECORDS SUMMARY | 2024-10-30 16:20 | XMS_ITS | Encounter Summary ---
Author Organization [facility] Address [address] [facility] [address] [place] [address] [address] Phone Care Team Providers Care Pulley Mortiser Operator Name Role Phone Unavailable Primary Care Provider Unavailabl e Reason for Visit * Reason Onset Date Comments Med Refill 07/17/2021 Encounter Details Date Type Department Care Team (Late st Contact Info) Description 07/17/2021 Refill [facility] [address] [place] [address] Radha Palmer [address] [facility] [address] [place] [address] Social History Tobacco Use Types [...]
== END 2024-10-30 14:30 | disposition home or self-care (01) ==
LOC: HO.HUSH 13:43
PROVIDERS: PCP Registered Nurse; Visit Provider Urology
DX: C61 Malignant neoplasm of prostate (principal); C79.51 Secondary malignant neoplasm of bone; N13.9 Obstructive and reflux uropathy, unspecified
CPT/HCPCS: 99213; G2211

== ENCOUNTER → 2024-10-30 13:43 | Outpatient (BNVA) | payer MEDICARE, MEDICAID, SELFPAY | PROVIDERS: PCP Registered Nurse; Visit Provider Urology | DX: C61 Malignant neoplasm of prostate (principal); C79.51 Secondary malignant neoplasm of bone; N13.9 Obstructive and reflux uropathy, unspecified | CPT/HCPCS: 99212 ==

== ENCOUNTER 2024-11-03 08:54 | Inpatient (IN) | payer MEDICARE, MEDICAID, SELFPAY ==
[2024-11-03] VITALS (15 sets, daily range): BP systolic 155–194; BP diastolic 79–92; PULSE 63–81; RESP 14–22; TEMP 36.1–36.9; O2SAT 85–97; BMI 24.2
--- NOTE | ~2024-11-03 | XR_ITS ---
CLINICAL HISTORY: SOB 1 view chest x-ray Comparison: CR - XR CHEST 1V - 09/09/24 08:36 EST Findings: Multiple bilateral pulmonary opacities. Small right pleural effusion. No pneumothorax. The cardiac silhouette is enlarged. Irregular sclerosis in the proximal left humerus is concerning for metastasis. IMPRESSION: 1. Multifocal bilateral pulmonary opacities secondary to infection and/or edema. 2. Small right pleural effusion. 3. Suspicious lesion in the proximal left humerus. This document has been electronically signed by: Goldie Ybarra DO on 11/03/2024 11:53:26
--- NOTE | ~2024-11-03 | CT_ITS ---
CLINICAL HISTORY: sob CT ANGIOGRAPHY CHEST WITH CONTRAST. 3D POSTPROCESSING. Comparison: CT/SR - CT CHEST WO IV CON - 09/08/24 11:21 EST Findings: The heart is enlarged. RV/LV ratio is normal. Pericardial effusion measures 19 mm in thickness compared with 1 cm previously. Aortic and coronary arterial calcifications. No thoracic aortic aneurysm or dissection. No pulmonary artery filling defects. Increased number of multiple borderline enlarged hilar and mediastinal lymph nodes. The thyroid gland is not enlarged. There is a moderate right pleural effusion which is larger compared to prior. There is a small left pleural effusion which is larger compared to prior. There are confluent opacities in the bilateral lower lobes. There is patchy opacity in the right middle lobe. There are hazy bilateral ground-glass opacities. There are right upper and left lower lobe nodular ground-glass opacities. There is bilateral septal thickening. No pneumothorax. Diffuse body wall edema. Multiple old right rib fractures. Redemonstration of sclerotic lesions in T6 and T9. IMPRESSION: 1. No pulmonary embolus. 2. Moderate right and small left pleural effusions with adjacent compressive atelectasis and/or consolidations. 3. Small pericardial effusion. 4. Hazy bilateral ground-glass opacities, multiple right upper and left lower lobe nodular ground-glass opacities and bilateral septal thickening secondary to inflammation/infection or edema. 5. Mild hilar and mediastinal adenopathy is nonspecific and may be reactive in etiology. 6. Probable anasarca. 7. Stable sclerotic lesions in T6 and T9. Metastatic disease is included in the differential. 8. Right middle lobe atelectasis and/or infiltrate. This document has been electronically signed by: Goldie Ybarra DO on 11/03/2024 13:35:10
--- NOTE | 2024-11-03 09:18 | ED_ITS ---
HPI - SOB/Dyspnea General Chief Complaint: Dyspnea Stated Complaint: difficulty breathing Time Seen by Provider: 11/03/24 09:18 Source: patient and RN notes reviewed Mode of arrival: ambulatory Limitations: no limitations History of Present Illness ED Provider: Brianna Porras PA-C HPI Narrative: This is a 64-year-old male, with a history of metastatic prostate cancer to bone, chronic anemia, ESRD on HD on MWF, HTN, CHF who presents emergency department with complaints of shortness of breath which started 3 days ago. Patient reports that since his admission in September he felt as though he never really fully recovered. He states that over the last 3 days he has noticed increased shortness of breath as well as dry cough. Patient denies any fevers, chills, congestion, abdominal pain, nausea, vomiting or diarrhea. He denies any chest pain or palpitations. Denies any lower extremity swelling. No recent travel or surgeries. On arrival, patient found to be hypoxic at 85% on room air, oxygen saturation was improved to 96% when placed on 2 L nasal cannula. Of note, patient was admitted on September 08, 2024 until September 10, 2024 due to hypoxia, acute bronchitis, respiratory failure thought to be due to rhinovirus. MD elicited complaint: shortness of breath and cough Pertinent past history: congestive heart failure Onset (ago): day(s) Timing: constant Severity: moderate Exacerbating factors: nothing Relieving factors: nothing Known history of: congestive heart failure Associated symptoms: cough, wheezing and orthopnea Treatment prior to arrival: none Related Data Home oxygen amount: none Home Medications ?Medication ?Instructions ?Recorded ?Confirmed blood pressure test kit-large #1 ea 03/18/22 09/08/24 amlodipine 10 mg tablet 10 mg PO BEDTIME 12/17/22 11/03/24 ropinirole 2 mg tablet 2 mg PO TID 08/04/23 11/03/24 abiraterone 250 mg tablet 1,000 mg PO BEDTIME 09/08/24 11/03/24 albuterol sulfate 90 mcg/actuation 2 puff inhalation Q4H PRN wheezing 09/08/24 11/03/24 aerosol inhaler (Ventolin HFA) efinaconazole 10 % topical 1 appl topical DAILY 09/08/24 11/03/24 solution with applicator (Jublia) hydralazine 50 mg tablet 100 mg PO BID 09/08/24 11/03/24 prednisone 5 mg tablet 5 mg PO DAILY 09/08/24 11/03/24 rosuvastatin 5 mg tablet 5 mg PO DAILY 09/08/24 11/03/24 bumetanide 2 mg tablet 2 mg PO DAILY 11/03/24 11/03/24 sevelamer carbonate 800 mg tablet 800 mg PO TIDWM 11/03/24 11/03/24 vit C 250 mg-vit E 90 mg-zinc 40 2 tab PO BEDTIME 11/03/24 11/03/24 mg-copper 1 [id number] capsule (PreserVision AREDS-2) Previous Rx's ?Medication ?Instructions ?Recorded dextromethorphan-guaifenesin 30 2 tab PO BID #20 tabs 09/10/24 mg-600 mg tablet extended [id number] hr (Mucus DM) ferrous sulfate 324 mg (65 mg 324 mg PO DAILY #90 tabs 09/10/24 iron) tablet,delayed release Allergies Allergy/AdvReac Type Severity Reaction Status Date / Time No Known Allergies Allergy Verified 11/03/24 09:04 [No Known Allergies*] Review of Systems 2 Review of Systems: Yes all other systems are reviewed and are negative Constitutional: Constitutional: Reports as per [facility] Past Medical History Attestation statement: The following information was validated with the patient. Medical History Anemia HTN (hypertension) ESRD (end stage renal disease) Creatinine elevation Urinary retention History of upper gastrointestinal bleeding A-V fistula Fusion of lumbar spine Chronic kidney disease Urinary tract infection Enlarged prostate Kidney disease Elevated PSA Anemia Metabolic acidosis Bilateral hydronephrosis Hypocalcemia Acute anemia Acute kidney injury Surgical History History of fusion of cervical spine Hx of esophagogastroduodenoscopy History of transurethral resection of prostate S/P arteriovenous (AV) fistula creation History of hip replacement, total Social History Social History Household Members: Family Household Members Other:: sisterr Housing: House Housing Other:: mobile home Do you presently have visiting nurse or other home services: No Alcohol intake: former Patient Tobacco Use Status: Former Tobacco user Tobacco use type: Cigarette Years Smoked: 50 Smoked in Last 30 Days: No e-Cigarette/Vaping Use: Former Use Use of substances other than those prescribed or required for medical reasons: No Substance Use Type: Marijuana Advance Directives: No Advance Directives Information Provided: No Do you have a plan to hurt others: No Plan service: No Current occupational status: disabled Physical Exam 2 Vital Signs: Vital Signs: Last Vital Signs Temp 97 F 11/03/24 15:58 Pulse 71 11/03/24 15:58 Resp 20 11/03/24 15:58 BP 194/89 H 11/03/24 15:58 Pulse Ox 92 11/03/24 15:58 O2 Del Method Room Air 11/03/24 15:58 O2 Flow Rate 3 11/03/24 14:11 BMI result Body Mass Index 24.2 Const: General: cooperative, comfortable and no acute distress O rientation/consciousness: patient oriented x3 Limitations: no limitations HEENT: Head: Yes normal to inspection, Yes normocephalic and Yes atraumatic Ears: hearing grossly normal bilaterally General nose exam: Normal external nose present Face and sinus: Yes normal facial exam Mouth: Normal oral and palatal mucosa present, oropharynx normal and moist mucous membranes Throat: Yes posterior oropharynx normal Eyes: General: appearance normal, both eyes and all related structures E yelids: Yes eyelids normal Conjunctivae: conjunctivae normal Sclerae: s clerae normal Pupils: Equal, round and reactive pupils present EOM: EOMs intact bilaterally Neck: Neck: Yes normal visual inspection, Yes full ROM and Yes no lymphadenopathy Lymphatic: no lymphadenopathy noted Chest: Chest palpation & inspection: normal inspection of the chest Resp: Other: lung sounds diminished throughout, right worse than left Effort & Inspection: normal respiratory effort and able to speak in complete sentences Cardio: Rate: regular rate Rhythm: regular rhythm Heart sounds: S1 normal heart sound present and S2 normal heart sound present GI: Other: Abdomen is soft, nontender, nondistended. No rebound or guarding. Inspection: Yes normal to inspection Skin: General skin exam: no rashes or lesions noted Trauma: no lacerations or abrasions Wounds: no wounds Neuro: General: patient oriented x3 and moves all extremities Cranial nerves: Yes Equal, round and reactive pupils present Extrem: Other: 1+ pitting edema noted bilaterally. No calf tenderness. General: Yes normal to inspection Right upper extremity: normal to inspection Left upper extremity: normal to inspection Right lower extremity: normal to inspection Left lower extremity: normal to inspection Course Reevaluation(s) Reevaluation #1: Patient received updraft, patient reports shortness for breath has improved with updraft. We will continue to closely monitor pending overall workup Time: 10:13 Reevaluation #2: critical of creatinine at 4.35 appears to be at/around his usual. Creatinine in September 3.09, and 5.67. All other labs pending at this time. Reevaluation #3: Labs returned. no leukocytosis, normocytic anemia with an H&H of 10.1/30.8; appears to be at his baseline. Chemistry revealing elevated creatinine and BUN, creatinine 4.35, BUN 40. This appears to be at his baseline. He last received dialysis yesterday. T bili elevated at 1.4, all other LFTs within normal limits. His abdomen is soft and nontender. Calcium slightly elevated at 10.3, he does have a history of metastatic disease, likely source. Troponin is elevated at 86.6, EKGs normal sinus rhythm with no ST elevation or depression. elevation of troponin is likely secondary to demand. BNP is elevated at 4986. viral swabs are negative. Chest x-ray still pending. He does report that the updraft did give him some relief however still not fully improved. Discussed case with attending physician, Dr. Langston who recommends CTA to r/o PE, discussed that his creatinine is elevated, given he is already on dialysis this is ok per attending physician's recommendations. Will continue to monitor pending overall workup. Time: 11:10 Additional Reevaluation(s): 11/03/2024 1248 - pt desaturated to 86% on 2L NC, increased to 3L NC now at 95%. CTA negative for any PE. however there is moderate right and left pleural effusions, small pericardial effusion, hazy bilateral ground-glass opacities, there is mediastinal adenopathy, anasarca, and right middle lobe atelectasis and/or infiltrate. Will start patient on ceftriaxone and doxycycline to treat for pneumonia. Patient meeting inpatient level of care as patient needs further treatment and evaluation for acute hypoxic respiratory failure in the setting of multifocal pneumonia. Discussed findings with patient, he was agreeable for admission, transfer of care initiated. Medications Administered Generic Name Dose Route Start Last Admin Trade Name Olivierq PRN Reason Stop Dose Admin Heparin Sodium (Porcine) 5,000 unit 11/03/24 16:00 11/03/24 15:38 Heparin Sodium,Porcine 5,000 Unit/Ml Vial SUBCUT 5,000 unit Q8H FREIDA Administration Hydralazine HCl 100 mg 11/03/24 15:15 11/03/24 15:37 Hydralazine Hcl 50 Mg Tablet PO 100 mg BID FREIDA Administration Protocol Sevelamer Carbonate 800 mg 11/03/24 17:00 11/03/24 17:07 Sevelamer Carbonate Tablet 800 Mg Tablet PO 800 mg TIDWM FREIDA Administration Sodium Chloride 3 ml 11/03/24 16:00 11/03/24 16:54 0.9 % Sodium Chloride Flush 3 Ml Syringe IVFLUSH 3 ml QSHIFT FREIDA Administration Discontinued Medications Generic Name Dose Route Start Last Admin Trade Name Olivierq PRN Reason Stop Dose Admin Ceftriaxone Sodium 2 gm 11/03/24 13:39 11/03/24 14:04 Ceftriaxone Sodium 2 Gm Vial IVPUSH 11/03/24 13:40 2 gm ONCE ONE Administration Albuterol Sulfate 2.5 mg/ 0 mg 11/03/24 09:49 11/03/24 09:55 Albuterol/Ipratropium 3 ml INHALE 11/03/24 09:50 5 dose ONCE ONE Administration Albuterol Sulfate 2.5 mg/ 0 mg 11/03/24 11:19 11/03/24 11:22 Albuterol/Ipratropium 3 ml INHALE 11/03/24 11:20 5 dose ONCE ONE Administration Doxycycline Hyclate 100 mg/ 250 mls @ 166.67 mls/hr 11/03/24 13:44 11/03/24 14:04 Sodium Chloride IV 11/03/24 15:13 166.67 mls/hr ONCE ONE Administration Iohexol 100 ml 11/03/24 12:30 11/03/24 12:31 Iohexol 350 Mg/Ml 100 Ml Infus..Btl IV 11/03/24 12:31 65 ml ONCE ONE Administration Ropinirole HCl 2 mg 11/03/24 11:23 11/03/24 12:34 Ropinirole Hcl 2 Mg Tablet PO 11/03/24 11:24 2 mg ONCE ONE Administration Medical Decision Making Medical Decision Making MDM Narrative: This is a 64-year-old male, with a history of metastatic prostate cancer to bone, chronic anemia, ESRD on HD on MWF, HTN, CHF who presents emergency department with complaints of shortness of breath which started 3 days ago. On arrival to triage, patient hypoxic at 85%, with respiration rate of 22 per minute. Patient hypertensive at 160/79, all other vital signs within normal limits. Patient did go to dialysis this week, he was followed by Dr. Cr. Lung sounds are diminished throughout, worse in the right lower lung base. Differential diagnoses include acute CHF exacerbation, URI, viral illness, anemia, pneumonia, bronchitis, acute respiratory failure. plan: labs, EKG, chest x-ray, ED bronch protocol Differential Diagnosis Differential Diagnoses: The differential diagnosis associated with the presentation includes See above Lab Data [facility] Lab Attestation statement: I reviewed the patient's lab results. See course 11/03/24 10:02 11/03/24 10:02 Labs: Lab Results 11/03/24 11/03/24 11/03/24 Range/Units 10:01 10:02 10:10 WBC 6.8 (4.8-10.8) X10*3/uL RBC 3.48 L D (4.60-5.80) X10*6/uL Hgb 10.1 L D (14.0-18.0) g/dl Hct 30.8 L D (42.0-52.0) % MCV 88.5 (80.0-98.0) fL MCH 29.0 (27.0-33.0) pg MCHC 32.8 (31.0-36.0) g/dl RDW 18.2 H (11.0-16.0) % Plt Count 193 (160-400) X10*3/uL MPV 10.7 (9.4-12.4) fL Immature Gran % (Auto) 0.3 (0.0-0.4) % Neut % (Auto) 74.1 H (45-73) % Lymph % (Auto) 14.7 L (20-40) % Luna % (Auto) 6.8 (2-11) % Eos % (Auto) 3.4 (0-4) % Baso % (Auto) 0.7 (0-2) % Lymph # (Auto) 1.0 L (1.2-4.9) X10*3/uL Luna # (Auto) 0.5 (0.1-1.2) X10*3/uL Eos # (Auto) 0.2 (0.0-0.4) X10*3/uL Baso # (Auto) 0.1 (0.0-0.2) X10*3/uL Abs Immat Gran (auto) 0.02 (0.00-0.03) X10*3/uL Absolute Neuts (auto) 5.0 (2.0-8.3) x10*3/uL Absolute Nucleated RBC 0.000 (0.0-0.012) X10*3/uL Nucleated RBC % (auto) 0.0 (0.0-0.2) /100WBC VBG pH 7.46 H (7.32-7.43) VBG pCO2 50 mmHg VBG pO2 38 mmHg VBG HCO3 35 H (22-26) mmol/L VBG O2 Saturation 58.0 % VBG Base Excess 10.6 mmol/L Sodium 136 (135-145) mmol/L Potassium 3.8 (3.3-5.1) mmol/L Chloride 94 L (96-108) mmol/L Carbon Dioxide 29 (22-29) mmol/L Anion Gap 17 (12-20) BUN 40 H (9-16) mg/dL Creatinine 4.35 H* (0.5-1.4) mg/dL Estim Creat Clear Calc 13.9 Estimated GFR 14 Random Glucose 88 (60-115) mg/dL Lactic Acid 0.8 (0.5-2.0) mmol/L Calcium 10.3 H D (8.4-10.2) mg/dL Magnesium 2.1 (1.6-2.6) mg/dL Total Bilirubin 1.4 H (0.0-1.0) mg/dL Direct Bilirubin 0.5 (0.0-0.5) mg/dL AST 27 (5-37) U/L ALT 12 (0-40) U/L Alkaline Phosphatase 113 (39-117) U/L Troponin I High Sens 86.6 H (<3.5-35.0) ng/L B-Natriuretic Peptide 4986 H (<100) pg/mL Total Protein 7.1 (6.5-8.0) g/dL Albumin 4.5 (3.5-5.0) g/dL Lipase 22 (8-78) U/L Respiratory Panel Rausch Adenovirus (Rapid PCR) (Not Detect.) B.pert (TEM-PCR) (Not Detect.) B.parapertussis DNA PCR (Not Detect.) C. pneumoniae DNA (PCR) (Not Detect.) Coronavirus OC43 (PCR) (Not Detect.) Coronavirus HKU1 (PCR) (Not Detect.) Coronavirus 229E (PCR) (Not Detect.) Coronavirus NL63 (PCR) (Not Detect.) Human Metapneumovir PCR (Not Detect.) Influenza A (RT-PCR) (Not Detect.) Influenza A (H1) PCR (Not Detect.) Influ A (H1/09) PCR (Not Detect.) Influenza A (H3) PCR (Not Detect.) Influenza Type A (PCR) NEGATIVE (Negative) Influenza B (RT-PCR) (Not Detect.) Influenza Type B (PCR) NEGATIVE (Negative) M. pneumoniae (PCR) (Not Detect.) Parainfluenza 1 (PCR) (Not Detect.) Parainfluenza 2 (PCR) (Not Detect.) Parainfluenza 3 (PCR) (Not Detect.) Parainfluenza 4 (PCR) (Not Detect.) RSV (PCR) (Not Detect.) RSV RNA Qual (PCR) NEGATIVE (Negative) Entero/Rhino (PCR) (Not Detect.) SARS-CoV-2 RNA (RT-PCR) NEGATIVE (Negative) 11/03/24 Range/Units 11:57 WBC (4.8-10.8) X10*3/uL RBC (4.60-5.80) X10*6/uL Hgb (14.0-18.0) g/dl Hct (42.0-52.0) % MCV (80.0-98.0) fL MCH (27.0-33.0) pg MCHC (31.0-36.0) g/dl RDW (11.0-16.0) % Plt Count (160-400) X10*3/uL MPV (9.4-12.4) fL Immature Gran % (Auto) (0.0-0.4) % Neut % (Auto) (45-73) % Lymph % (Auto) (20-40) % Luna % (Auto) (2-11) % Eos % (Auto) (0-4) % Baso % (Auto) (0-2) % Lymph # (Auto) (1.2-4.9) X10*3/uL Luna # (Auto) (0.1-1.2) X10*3/uL Eos # (Auto) (0.0-0.4) X10*3/uL Baso # (Auto) (0.0-0.2) X10*3/uL Abs Immat Gran (auto) (0.00-0.03) X10*3/uL Absolute Neuts (auto) (2.0-8.3) x10*3/uL Absolute Nucleated RBC (0.0-0.012) X10*3/uL Nucleated RBC % (auto) (0.0-0.2) /100WBC VBG pH (7.32-7.43) VBG pCO2 mmHg VBG pO2 mmHg VBG HCO3 (22-26) mmol/L VBG O2 Saturation % VBG Base Excess mmol/L Sodium (135-145) mmol/L Potassium (3.3-5.1) mmol/L Chloride (96-108) mmol/L Carbon Dioxide (22-29) mmol/L Anion Gap (12-20) BUN (9-16) mg/dL Creatinine (0.5-1.4) mg/dL Estim Creat Clear Calc Estimated GFR Random Glucose (60-115) mg/dL Lactic Acid (0.5-2.0) mmol/L Calcium (8.4-10.2) mg/dL Magnesium (1.6-2.6) mg/dL Total Bilirubin (0.0-1.0) mg/dL Direct Bilirubin (0.0-0.5) mg/dL AST (5-37) U/L ALT (0-40) U/L Alkaline Phosphatase (39-117) U/L Troponin I High Sens 73.9 H (<3.5-35.0) ng/L B-Natriuretic Peptide (<100) pg/mL Total Protein (6.5-8.0) g/dL Albumin (3.5-5.0) g/dL Lipase (8-78) U/L Respiratory Panel Rausch See Note Adenovirus (Rapid PCR) Not Detected (Not Detect.) B.pert (TEM-PCR) Not Detected (Not Detect.) B.parapertussis DNA PCR Not Detected (Not Detect.) C. pneumoniae DNA (PCR) Not Detected (Not Detect.) Coronavirus OC43 (PCR) Not Detected (Not Detect.) Coronavirus HKU1 (PCR) Not Detected (Not Detect.) Coronavirus 229E (PCR) Not Detected (Not Detect.) Coronavirus NL63 (PCR) Not Detected (Not Detect.) Human Metapneumovir PCR Not Detected (Not Detect.) Influenza A (RT-PCR) Not Detected (Not Detect.) Influenza A (H1) PCR Not Detected (Not Detect.) Influ A (H1/09) PCR Not Detected (Not Detect.) Influenza A (H3) PCR Not Detected (Not Detect.) Influenza Type A (PCR) (Negative) Influenza B (RT-PCR) Not Detected (Not Detect.) Influenza Type B (PCR) (Negative) M. pneumoniae (PCR) Not Detected (Not Detect.) Parainfluenza 1 (PCR) Not Detected (Not Detect.) Parainfluenza 2 (PCR) Not Detected (Not Detect.) Parainfluenza 3 (PCR) Not Detected (Not Detect.) Parainfluenza 4 (PCR) Not Detected (Not Detect.) RSV (PCR) Not Detected (Not Detect.) RSV RNA Qual (PCR) (Negative) Entero/Rhino (PCR) Not Detected (Not Detect.) SARS-CoV-2 RNA (RT-PCR) Not Detected (Negative) Independent Interpretation I performed an independent interpretation of an: EKG Interpretation: EKG NSR at a ventricular rate of 66bpm, no ST elevation or depression. Radiology Impression Discussion of test interpretation with radiology: I have reviewed the radiologist's reading. Radiologist Impression: Findings: The heart is enlarged. RV/LV ratio is normal. Pericardial effusion measures 19 mm in thickness compared with 1 cm previously. Aortic and coronary arterial calcifications. No thoracic aortic aneurysm or dissection. No pulmonary artery filling defects. Increased number of multiple borderline enlarged hilar and mediastinal lymph nodes. The thyroid gland is not enlarged. There is a moderate right pleural effusion which is larger compared to prior. There is a small left pleural effusion which is larger compared to prior. There are confluent opacities in the bilateral lower lobes. There is patchy opacity in the right middle lobe. There are hazy bilateral ground-glass opacities. There are right upper and left lower lobe nodular ground-glass opacities. There is bilateral septal thickening. No pneumothorax. Diffuse body wall edema. Multiple old right rib fractures. Redemonstration of sclerotic lesions in T6 and T9. IMPRESSION: 1. No pulmonary embolus. 2. Moderate right and small left pleural effusions with adjacent compressive atelectasis and/or consolidations. 3. Small pericardial effusion. 4. Hazy bilateral ground-glass opacities, multiple right upper and left lower lobe nodular ground-glass opacities and bilateral septal thickening secondary to inflammation/infection or edema. 5. Mild hilar and mediastinal adenopathy is nonspecific and may be reactive in etiology. 6. Probable anasarca. 7. Stable sclerotic lesions in T6 and T9. Metastatic disease is included in the differential. 8. Right middle lobe atelectasis and/or infiltrate. This document has been electronically signed by: Goldie Ybarra DO on 11/03/2024 13:35:10 Dictated By: Goldie Ybarra MD Critical Care Time Critical Care Time Critical Care Time: Yes Total Critical Care Time: 35 Attestation: I have personally provided critical care time exclusive of time spent on separately billable procedures. Time includes review of lab data, radiology results, discussion with consultants, and monitoring for potential decompensation. Intervention performed as documented. Discharge Plan Discharge Clinical Impression: Hypoxia, Pneumonia, Respiratory failure, acute Patient Disposition: Admitted As Inpatient
--- NOTE | 2024-11-03 09:22 | ECG_ITS ---
Test Reason : SOB Blood Pressure : */* mmHG Vent. Rate : 66 BPM Atrial Rate : 66 BPM P-R Int : 170 ms QRS Dur : 88 ms QT Int : 442 ms P-R-T Axes : 81 -29 110 degrees QTcB Int : 463 ms Normal sinus rhythm Left ventricular hypertrophy with repolarization abnormality ( Roberto product , Romhilt-Smalls ) Abnormal ECG When compared with ECG of 08-Sep-2024 11:07, Nonspecific T wave abnormality no longer evident in Inferior leads Referred By: Brianna Porras Electronically Signed By: PAULINA WARREN
--- OUTSIDE RECORDS SUMMARY | 2024-11-03 09:54 | XMS_ITS | Encounter Summary ---
Author Organization [facility] Address [address] [place] [phone] Phone Care Team Providers Care Nba Player Name Role Phone Unavailable Primary Care Provider Unavailabl e Encounter Details Date Type Department Care Team ([facility] st Contact Info) Description 11/02/2024 Treatment [facility]. [address] [phone] Clinton Ortega MD [facility] [address] [id number] End stage renal disease; Dependence [...] Dialysis Note - Clinton Ortega MD - 11/02/2024 12:00 AM EDT BASIC NOTE Patient: Darwin Stahl : 1960 Note Author: CLINTON ORTEGA MD Service Date: 11/02/2024 This patient was personally seen for a basic visit as part of routine monthly dialysis care for end stage renal disease. Attending Laborer [employer]: CLINTON ORTEGA Dialysis Location: [facility] Schedule: Shift: 1 ADEQUACY ASSESSMENT Kt/V, [...] 10/03/24 9.6 09/14/24 10.1 09/05/24 Phosphorus, Serum 9.8 10/26/24 8.0 10/03/24 7.4 09/19/24 Ca*PO4 75.2 10/03/24 32.6 09/14/24 77.8 09/05/24 [...] Uric Acid 5.4 (08/31/24) ADDITIONAL COMMENT COMMENTS: 10/15/24 doing well 10/22/24 stable 11/02/24 stable 09/21/24 stable 09/24/24 doing ok 09/28/24 stable 10/15/24 10/31/24 doing ok, f/u with Urol --has pet scan scheduled 07/16/24 stable 07/31/24 no new issues 08/03/24 doing ok 04/04/24 stable 04/16/24 stable 04/25/24 no new issues 05/07/24 stable 05/14/24 incr bp, refuses bp meds 05/21/24 stable 06/04/24 no new issues 06/1524 c/o restless legs despite on requip 06/20/24 same issues-- has appt w neuro 06/26/24 stable 07/02/24 doing ok 07/09/24 stable Signed by: CLINTON ORTEGA MD on 11/02/2024 at 06:45:17 PM Transcribed by: CLINTON ORTEGA MD on 11/02/2024 at 06:45:17 PM documented in this encounter Plan of Treatment Not on file documented as of this encounter Visit Diagnoses Diagnosis End stage renal disease Dependence on renal dialysis documented in this encounter
--- OUTSIDE RECORDS SUMMARY | 2024-11-03 09:54 | XMS_ITS | Clinical Summary ---
Author Organization [employer] Address [address] [facility] [address] [place] [address] Care Team Providers Care Staff Scientist Name Role Phone WernerAndie manning CORINNE Primary Care Provider [phone] Trevor Restrepo MD Unavailable Juvenal Cr MD Unavailable Kamini Chavarria MD [...] Following with Podiatry - Dr. Bhagat at [place] [facility] Jun 2024: Debridement of toenails 6-10, with plan to cont topical Jublia. RTC 3 months. Healthcare maintenance 12/12/2023 Overview (12/12/2023): Optometry: CEE 11/10/23 (Dr. Mohr). Noted trace macular edema, follow up in 3 months PSA: hx prostate CA, following with [facility] Urology Heart failure with mildly re duced [...] w/ Hospitalization 08/04 - 08/07/23 at [facility] ESRD on HD: communication with Dr. Cr [...] Overview (12/12/2023): Following with Dr. Restrepo ([facility] Urology) Hx of bilateral stent placement ESRD (end stage renal disease) 11/05/2021 Assessment & Plan (04/27/2023 2:16 PM EDT): -Hemodialysis MWF at [address] [place] [address] Dialysis (first shift) -Access: Left arm basilic vein transposition performed on 08/03/2021. -Mar 2023: fistulagram performed, [facility] Vascular Dr. Blackburn. Has been working well since Assessment & Plan (12/22/2022 8:12 PM EDT): -Hemodialysis MWF at [address] [place] [address] -Access: Left arm basilic vein transposition performed on 08/03/2021. Have started to access fistula at dialysis -Left AVF w/ +thrill/+bruit Prostate cancer metastatic to bone 11/05/2021 Assessment & Plan (07/29/2024 10:41 PM EST): Mccracken score ranging from 7 to 9. 10/05/21 cystoscopy with bilateral ureteral stent exchange performed by [facility] Urology Continue to follow with [facility] Urology - Dr. Restrepo Continue to follow with [facility] Heme/Onc Previously on Bicalutamide 50mg PO daily through Urology, currently taking Abiraterone 01/24/23: cystoscopy with bilateral stent exchange November 2023: Bone scan stable, no progression Target 3 years hormone therapy then reduction to intermittent anti-androgen Apr 2024: DXA normal Assessment & Plan (04/27/2023 2:17 PM EDT): ?? Mccracken score ranging from 7 to 9. ?? 10/05/21 cystoscopy with bilateral ureteral stent exchange performed by [facility] Urology ?? Continue to follow with [facility] Urology - Dr. Restrepo ?? Continue to follow with [facility] Heme/Onc ?? Previously on Bicalutamide 50mg PO daily through Urology, currently taking Abiraterone ?? 01/24/23: cystoscopy with bilateral stent exchange Assessment & Plan (12/22/2022 8:13 PM EDT): ?? Mccracken score ranging from 7 to 9. ?? 10/05/21 cystoscopy with bilateral ureteral stent exchange performed by [facility] Urology ?? Continue to follow with [facility] Urology - Dr. Restrepo ?? Continue to follow with [facility] Heme/Onc ?? Previously on Bicalutamide 50mg PO [...] Type Department Care Team Description 10/12/2024 Population [facility] Risk Score [facility] () Department [address] [place] [phone] Provider, Population Health Generic 10/11/2024 Orders Only GENERIC EXTERNAL DATA DEPARTMENT Provider, Generic External Data 09/27/2024 Patient Outreach [facility] [address] [place] [address] Andie Whitmore FNP Transition Of Care (Tcm) ([facility]) 09/19/2024 Patient Outreach [facility] [address] [place] [address] Andie Whitmore FNP Transition Of Care (Tcm) ([facility] unscheduled) 09/08/2024 Orders Only GENERIC EXTERNAL DATA [...] males (Adult), [place] (10/11/2024 10:35 AM EDT) [facility] Testosterone, Total 10(A) 250 - 1100 ng/dL [facility] Comment:Men with clinically significant hypogonadalsymptoms and testosterone values repeatedly inthe range of the 200-300 ng/dL or less, maybenefit from testosterone treatment afteradequate risk and benefits counseling.For additional information, please refer tohttp://education.[email or web address]/faq/[email or web address](This link is being provided for informational/educational purposes only.)This test was developed and its analytical performancecharacteristics have been determined by [employer] [place], [place]. It hasnot been cleared or approved by the U.S. Food and DrugAdministration. This assay has been validated pursuantto the CLIA regulations and is used for clinicalpurposes.THIS TEST WAS PERFORMED AT:[facility] [place] [address]TCGKIQHHELGA HAYES MD,PHD 10/11/2024 10:3 5 AM EDT 10/11/2024 1:28 PM EDT Generic External Data Provider LAB BLOOD ORDERAB LES Final Result Performing Organization Address City/[facility]/ZIP Co de Phone Number [facility] [address] [place] [phone] * PSA,Total (10/11/2024 10:35 AM EDT) Prostate Specific Antigen 0.14 <0.05 - 4.0 ng/mL [facility] Comment:PSA methodology: Wild Emery i ChemiluminescentMicroparticle Immunoassay (CMIA) 10/11/2024 10:3 5 AM EDT 10/11/2024 1:28 PM EDT Generic External Data Provider LAB BLOOD ORDERAB LES Final Result Performing Organization Address [facility]/ZIP Co de Phone Number [facility] [address] [place] [phone] * XR Chest 1 View (09/09/2024 9:04 AM EST) Anatomical Region Laterality Modality Chest Radiographic Debra ging 09/09/2024 9:04 AM EST Narrative 09/09/2024 9:06 AM EST ? [facility] ?[address] ?[place] [address] ?XRay Report ? Signed ? Patient: Maribeth,Darwin ?MR#: [id number] ? : 1960 ?Acct:[id number] ? Age/Sex: 64 / M ?ADM Date: 09/08/24 ? Loc: HO.[facility] ?467-1 ? Attending Dr: Jer Bermudez MD ? Ordering Physician: Jer Bermudez MD ?? Date of Service: 09/09/24 ?? Procedure(s): XR chest 1V ?? Accession Number(s): [id number] ? cc: Jre Bermudez MD; Andie Whitmore ? CLINICAL HISTORY: Hypoxia ? 1 view chest x-ray ? Comparison: CT/SR - CT CHEST WO IV CON - 09/08/24 11:21 EST ?? CR/AR/SR - XR CHEST 1V - 08/04/23 15:55 EST ? Findings: ?? Similar vascular congestion, pulmonary edema, small bilateral pleural ?? effusions pcxyo-zonacur-tzmc-left. Mild atelectatic basilar lung changes. ?? Stable [...] ? DD/ 3 ? TD/TT: 09/09/24903 ? Inventory Taker: ? Procedure Note Rosemarie Mayorga - 09/09/[address] [address] XRay Report Signed Patient: Emilia Stahl#: [id number] : 1Acct:[id number] Age/Sex: 64 / MADM Date: 09/08/24 Loc: [facility] 467-[address]: Jer Bermudez MD Ordering Physician: Jer Bermudez MD Date of Service: 09/09/24 Procedure(s): XR chest 1V Accession Number(s): [id number] cc: Jer Bermudez MD; Andie Whitmore CLINICAL HISTORY: Hypoxia 1 view chest x-ray Comparison: CT/SR - CT CHEST WO IV CON - 09/08/24 11:21 EST CR/AR/SR - XR CHEST 1V - 08/04/23 15:55 EST Findings: Similar vascular congestion, pulmonary edema, small bilateral pleural effusions wizjp-pmmcmnv-kfro-left. Mild atelectatic basilar lung changes. Stable cardiomegaly. Normal mediastinal contour. Bones unchanged with arthritic changes both shoulders. Upper abdomen unremarkable. Impression: Similar congestive changes. This document has been electronically signed by: Malick Mesa MD on 09/09/2024 09:04:49 Dictated By: Malick Mesa MD Signed By: <Electronically signed by Malick Mesa MD in OV> 09/09/24905 DD/ 3 TD/TT: 09/09/24903 Inventory Taker: [facility] External Provider IMG XR PROCEDURES Edited Result - Final * NM Lung Perfusion (09/09/2024 8:33 AM EST) Anatomical Region Laterality Modality Body Nuclear Medicine 09/09/2024 8:33 AM EST Narrative 09/09/2024 8:35 AM EST ? [facility] ?[address] ?[place] [address] ?Nuclear Medicine Report ? Signed ? Patient: Maribeth,Darwin ?MR#: [id number] ? : 1960 ?Acct:[id number] ? Age/Sex: 64 / M ?ADM Date: 02/08/25 ? Loc: [facility] ?467-1 ? Attending Dr: Jer Bermudez MD ? Ordering Physician: Marvin Hollins ?? Date of Service: 09/08/24 ?? Procedure(s): NM pul perfusion ?? Accession Number(s): [id number] ? cc: Marvin Hollins; Andie WhitmoreP ? [...] ? DD/ 2 ? TD/TT: 09/09/24832 ? Inventory Taker: ? Procedure Note Dongabrielahailey, Image - 09/09/2024 [place] [address] Nuclear Medicine Report Signed Patient: Emilia Stahl#: [id number] : 1960cct:[id number] Age/Sex: 64 / MADM Date: 09/08/24 Loc: [facility] 467-[address]: Jer Bermudez MD Ordering Physician: Marvin Hollins Date of Service: 09/08/24 Procedure(s): NM pul perfusion Accession Number(s): [id number] cc: Marvin Hollins; Andie Whitmore CLINICAL HISTORY: [...] in OV> 09/09/24833 DD/ 2 TD/TT: 09/09/24832 Inventory Taker: [facility] External Provider IMG NM PROCEDURES Edited Result - Final * CT Chest w/o Contrast (09/08/2024 1:00 PM EST) Anatomical Region Laterality Modality Body, Chest Computed Tomogra phy 09/08/2024 1:00 PM EST Narrative 09/08/2024 1:02 PM EST ? [facility] ?[address] ?[place] [address] ? CT Scan Report ? Signed ? Patient: Maribeth,Darwin ?MR#: [id number] ? : 1960 ?Acct:[id number] ? Age/Sex: 64 / M ?ADM Date: 09/08/24 ? Loc: HO.ED ? Attending Dr: ? Ordering Physician: Marvin Hollins ?? Date of Service: 09/08/24 ?? Procedure(s): CT chest wo IV con ?? Accession Number(s): [id number] ? cc: Marvin Hollins; Andie Whitmore INSTRUMENT MAKER APPRENTICE ? Report Number: ?? [id number]: Total DLP = ??272.00 mGy-cm ? CLINICAL HISTORY: sob cough hx malignancy ? CT chest without contrast ? Comparison: CR/AR/SR - XR CHEST 1V - 08/04/23 15:55 EST ?? CR/SR - XR CHEST 2V - 07/19/23 13:04 EST ?? CT/AR - CT CHEST WO CON - 04/02/21 [...] DD/ 1300 ? TD/TT: 09/08/24 1300 ? Inventory Taker: ? Procedure Note Donotuseinterpreter, Image - 09/08/[address] [address] [address] Scan Report Signed Patient: Darwin StahlMR#: [id number] : 1Acct:[id number] Age/Sex: 64 / MADM Date: 09/08/24 Loc: HO.ED Attending Dr: Ordering Physician: Marvin Hollins Date of Service: 09/08/24 Procedure(s): CT chest wo IV con Accession Number(s): [id number] cc: Marvin Hollins; Andie Whitmore INSTRUMENT MAKER APPRENTICE Report Number: [id number]: Total DLP = 272.00 mGy-cm CLINICAL HISTORY: sob cough hx malignancy CT chest without contrast Comparison: CR/AR/SR - XR CHEST 1V - 08/04/23 15:55 EST CR/SR - XR CHEST 2V - 07/19/23 13:[address]/AR - CT CHEST WO CON - 04/02/21 [...] 09/08/24 1302 DD/ 1300 TD/TT: 09/08/24 1300 Inventory Taker: [facility] External Provider IMG CT PROCEDURES Edited Result - Final * Red blood count (09/08/2024 11:00 AM EST) Red Blood Cells: [id number] AP RC TRANSFUSED 09/08/24 1204 [facility] 09/08/2024 11:0 0 AM EST 09/08/2024 11:04 AM EST Generic External Data Provider LAB BLOOD ORDERAB LES Final Result [facility] [address] [place] [phone] * Type and screen (09/08/2024 11:00 AM EST) Blood Type AP [facility] Antibody Screen NEGATIVE [facility] 09/08/2024 11:0 0 AM EST 09/08/2024 11:04 AM EST Narrative [facility] - 09/08/2024 3:17 PM EST Results [...] ST ORDERABLES Final Result Performing Organization Address [facility] Co de Phone Number [facility] [address] [place] [phone] * SARS-CoV-2 RNA, Influenza A/B, and RSV RNA, Ql NAAT (09/08/2024 10:25 AM EST) Influenza A PCR NEGATIVE Negative [facility] Influenza B PCR NEGATIVE Negative [facility] Resp Syncy Virus RNA Qual PCR NEGATIVE Negative [facility] SARS COV2 PCR NEGATIVE Negative [facility] Comment:All test results mus t [...] use by authorized laboratories.Testing performed on the [employer] GeneXpert utilizingreal-time RT-PCR.All SARS CoV2 and positive influenza A/B results arereported to [facility]. 09/08/2024 10:2 5 AM EST 09/08/2024 10:37 AM EST Generic External Data Provider LAB MICROBIOLOGY - GENERAL ORDERABLES Final Result Performing Organization Address [facility] Co de Phone Number [facility] [address] [place] [phone] * (ABNORMAL) CBC auto differential (09/08/2024 10:25 AM EST) White Blood Count 6.9 4.8 - 10.8 X10*3/uL [facility] Red Blood Count 2.47(L) 4.60 - 5.80 X10*6/uL [facility] Hemoglobin 7.0(LL) 14.0 - 18.0 g/dl [facility] Comment:Results of HGB jiang d to and read back by Yasmin 09/08/24 at 1044 by CHON. Hematocrit 20.8(LL) 42.0 - 52.0 % [facility] Comment:Results of HCT jiang d to and read back by Yasmin 09/08/24 at 1044 by CHON. Mean Corpuscular Volume 84.2 80.0 - 98.0 fL [facility] Mean Corpuscular Hemoglobin 28.3 27.0 - 33.0 pg [facility] Mean Corpuscular HGB Conc 33.7 31.0 - 36.0 g/dl [facility] Red Cell Distribution Width 18.9(H) 11.0 - 16.0 % [facility] Platelet Count 191 160 - 400 X10*3/uL [facility] Mean Platelet Volume 11.1 9.4 - 12.4 fL [facility] Neutrophils Percent Auto 79.1(H) 45 - 73 % [facility] Imm Gran Pct Auto 0.6(H) 0.0 - 0.4 % [facility] Lymphocytes Percent Auto 14.1(L) 20 - 40 % [facility] Monocytes Percent Auto 4.5 2 - 11 % [facility] Eosinophils Percent Auto 1.3 0 - 4 % [facility] Basophils Percent Auto 0.4 0 - 2 % [facility] NRBC Pct Auto 0.0 0.0 - 0.2 /100WBC [facility] Neutrophils Absolute Auto 5.5 2.0 - 8.3 x10*3/uL [facility] Imm Gran Abs Auto 0.04(H) 0.00 - 0.03 X10*3/uL [facility] Lymphocytes Absolute Auto 1.0(L) 1.2 - 4.9 X10*3/uL [facility] Monocytes Absolute Auto 0.3 0.1 - 1.2 X10*3/uL [facility] Eosinophils Absolute Auto 0.1 0.0 - 0.4 X10*3/uL [facility] Basophils Absolute Auto 0.0 0.0 - 0.2 X10*3/uL [facility] NRBC Abs Auto 0.000 0.0 - 0.012 X10*3/uL [facility] 09/08/2024 10:2 5 AM EST 09/08/2024 10:37 AM EST Generic External Data Provider LAB BLOOD ORDERAB LES Final Result Performing Organization Address [facility] Co de Phone Number [facility] [address] [place] [address] [phone] * (ABNORMAL) Iron And Total Iron Binding Capacity (09/08/2024 10:25 AM EST) [facility] Iron 39(L) 45 - 160 mcg/dL [facility] Total Iron Binding Capacity 156(L) 228 - 428 mcg/dL [facility] Percent Iron Saturation 25 15 - 50 % [facility] Unsaturated Iron Binding 117 ug/dL [facility] 09/08/2024 10:2 5 AM EST 09/08/2024 10:37 AM EST us Generic External Data Provider LAB BLOOD ORDERAB LES Final Result Performing Organization Address City/[facility]/ZIP Co de Phone Number [facility] [address] [place] [phone] * (ABNORMAL) B Type Natriuretic Peptide (BNP) (09/08/2024 10:25 AM EST) [facility] B Type Natriuretic Peptide 4,852(H) <100 pg/mL [facility] Comment:For those patients w ho are being treated with Natrecor(nesiritide, recombinant BNP), BNP testing should beperformed at least two hours post treatment in order toensure that only endogenous levels of BNP are detected. 09/08/2024 10:2 5 AM EST 09/08/2024 10:53 AM EST Generic External Data Provider LAB BLOOD ORDERAB LES Final Result Performing Organization Address [facility] Co de Phone Number [facility] [address] [place] [address] [phone] * Magnesium (09/08/2024 10:25 AM EST) Magnesium 1.8 1.6 - 2.6 mg/dL [facility] 09/08/2024 10:2 5 AM EST 09/08/2024 10:37 AM EST us Generic External Data Provider LAB BLOOD ORDERAB LES Final Result Performing Organization Address [facility] Phone Number [facility] [address] [place] [phone] * Lactic Acid (09/08/2024 10:25 AM EST) Lactic Acid 0.8 0.5 - 2.0 mmol/L [facility] 09/08/2024 10:2 5 AM EST 09/08/2024 10:37 AM EST Generic External Data Provider LAB BLOOD ORDERAB LES Final Result Performing Organization Address [facility] Phone Number [facility] [address] [place] [address] [phone] * (ABNORMAL) Comprehensive Metabolic Panel (09/08/2024 10:25 AM EST) Sodium 135 135 - 145 mmol/L [facility] Potassium 3.1(L) 3.3 - 5.1 mmol/L [facility] Chloride 96 96 - 108 mmol/L [facility] Carbon Dioxide 26 22 - 29 mmol/L [facility] Anion Gap 16 12 - 20 [facility] Urea Nitrogen (BUN) 17(H) 9 - 16 mg/dL [facility] Creatinine, Serum 3.90(H) 0.5 - 1.4 mg/dL [facility] Creatinine Clr Calc Pharmacy 15.6 [facility] Comment:eGFR (calculated fro m the MDRD study equation) and eCrCl(calculated from the Cockcroft-Gault equation) are based ondifferent parameters and may not yield comparable results.If eCrCl result is absurd, please check patient'sheight/weight. Estimated Glomerular Filt Rate 16 [facility] Comment:Chronic Kidney Disea se: Estimated GFR < 60 mL/min/1.12l7Vcyruu Kidney Disease: Estimated GFR < 15 mL/min/1.73m2 Glucose 93 60 - 115 mg/dL [facility] Calcium 9.5 8.4 - 10.2 mg/dL [facility] Bilirubin, Total 0.8 0.0 - 1.0 mg/dL [facility] Aspartate Amino Transferase 26 5 - 37 U/L [facility] Alanine Aminotransferase 7 0 - 40 U/L [facility] Total Protein 6.5 6.5 - 8.0 g/dL [facility] Albumin Level 3.7 3.5 - 5.0 g/dL [facility] Alkaline Phosphatase 113 39 - 117 U/L [facility] 09/08/2024 10:2 5 AM EST 09/08/2024 10:37 AM EST us Generic External Data Provider LAB BLOOD ORDERAB LES Final Result [facility] [address] [place] [phone] * Lipid Panel, Standard (07/26/2024 11:25 AM EST) Triglycerides 54 <150 mg/dL [facility] Comment:Desirable Triglyceri de: less than 150 mg/dLBorderline High Triglyceride 150-199 mg/dLHigh Triglyceride: 200-499 mg/dLVery High Triglyceride: greater than or equal to 5OO mg/dL Cholesterol 142 <200 mg/dL [facility] Comment:Desirable Cholestero l: less than 200 mg/dLBorderline High Cholesterol: 200-239 mg/dLHigh Cholesterol: greater than 239 mg/dL LDL Cholesterol Calculated 83 <100 mg/dL [facility] Comment:Desirable LDL: less than 100 mg/dLNear Optimal/Above Optimal LDL: 110- 129 mg/dLBorderline High LDL: 130-159 mg/dLHigh LDL: 160-189 mg/dLVery High LDL: greater than or equal to 190 mg/dL HDL Cholesterol 49 >40 mg/dL [facility] Comment:Desirable HDL: great er than 40 mg/dL Note: This HDL assay may give artificially low results in patients with liver disease. Blood Venous blood specimen / Unknown 07/26/2024 11:25 AM EST 07/26/2024 1:05 PM EST us Andie Whitmore INSTRUMENT MAKER APPRENTICE LAB BLOOD ORDERABLES Final Res ult [facility] [address] [place] [address] [phone] from Last 3 Months or Most Recently Relevant to Health Maintenance Insurance [facility] STAND[facility] Care Teams Staff Scientist Relationship Specialty Start Date End Date Andie Whitmore FNP [address] [place] [address] PCP - General Family Medicine 11/04/21 Trevor Restrepo MD [address] [place] [address] Urology 07/29/24 Juvenal Cr MD [address] [facility] [address] [place] [phone] Nephrology 07/29/24 Kamini Chavarria MD [address] [place] [address] [address] [place] [address] Neurology 07/29/24 Winston Bhagat DPM [address] [place] [address] Podiatry 07/29/24
--- OUTSIDE RECORDS SUMMARY | 2024-11-03 09:54 | XMS_ITS | Encounter Summary ---
Author Organization [employer] Address [address] [place] [address] [address] [place] [address] Care Team Providers Care Change Lead Name Role Phone Andie Whitmore Primary Care Provider [phone] Trevor Restrepo MD Unavailable [phone] MD Unavailable [phone] Kamini Chavarria MD Unavailable [phone] Winston Bhagat DPM Unavailable [phone] Reason for Referral * Imaging (Urgent) - Closed Specialty Diagnoses / Procedures Referred By Contac t Referred To Contact Cardiology Diagnoses ESRD (end stage renal disease) ([facility]) Primary hypertension Shortness of breath Procedures Transthoracic Echo (TTE) Complete Andie Whitmore FNP [address] [place] [address] Phone: tel: fax: [address] Phone: tel: fax: Referral ID Status Reason Start Date Expiration Date V isits Requested Visits Authorized [id number] Closed Perform Procedure 06/29/2023 06/28/2024 1 1 Reason for Visit * Reason Onset Date Comments Call Back Request 06/21/2023 Encounter Details Date Type Department Care Team (Late st Contact Info) Description 06/21/2023 Telephone [facility] [address] [place] [address] Andie Whitmore FNP [address] [place] [address] Call Back Request Social History Tobacco Use [...] order of the heart. Contact pt at [phone] * Telephone Encounter - Iram Pierre RN [...] just once, had an EKG, and the refinery superintendent said he was just fine. Patient has [...] having dialysis tomorrow. Please contact pt at [phone] documented in this encounter Plan of Treatment Scheduled Orders Name Type Priority Associated Diagnoses Order Schedule Transthoracic Echo (TTE) Complete Echocardiography Urgent ESRD (end stage renal disease) ([facility]) Primary hypertension Shortness of breath Expected: 06/29/2023 (Approximate), Expires: 06/29/2025 documented as of this encounter Visit Diagnoses Diagnosis ESRD (end stage renal disease) ([facility])- Primary End stage renal disease Primary hypertension Unspecified essential hypertension Shortness of breath documented in this encounter Additional Health Concerns Assessment Noted Time PHQ-9 Depression Total Score: 1 12/23/19 23 3:02 PM EDT documented as of this encounter Care Teams Change Lead Relationship Specialty Start Date End Date Andie Whitmore FNP [address] [place] [address] PCP - General Family Medicine 11/04/21 Trevor Restrepo MD [address] [place] [address] Urology 07/29/24 Juvenal Cr MD 100 [facility] [address] [place] [address] Nephrology 07/29/24 Kamini Chavarria MD [address] [place] [address] [address] [place] [address] Neurology 07/29/24 Winston Bhagat DPM [address] [facility] [address] [place] [address] Podiatry 07/29/24 documented as of this encounter
--- OUTSIDE RECORDS SUMMARY | 2024-11-03 09:54 | XMS_ITS | Encounter Summary ---
Author Organization [employer] Address [address] [facility] [address] [place] [address] Care Team Providers Care Class B Truck Driver Name Role Phone Andie Whitmore Primary Care Provider [phone] Trevor Restrepo MD Unavailable [phone] MD Unavailable [phone] Kamini Chavarria MD Unavailable [phone] Winston Bhagat DPM Unavailable [phone] Reason for Visit * Reason Onset Date Comments Medication Question 02/29/2024 Encounter Details Date Type Department Care Team (Late st Contact Info) Description 02/29/2024 Telephone [facility] [address] [place] [address] Andie Whitmore FNP [address] [place] [address] Medication Question Social History Tobacco Use Types [...] was discussed in sick appt on 02/27 underwriter mortgage loan does not see ant medication pending documented in this encounter Plan of Treatment Not on file documented as of this encounter Visit Diagnoses Not on filedocumented in this encounter Additional Health Concerns Assessment Noted Time PHQ-9 Depression Total Score: 1 12/23/19 23 3:02 PM EDT documented as of this encounter Care Teams Class B Truck Driver Relationship Specialty Start Date End Date Andie Whitmore FNP [address] [place] [address] PCP - General Family Medicine 11/04/21 Trevor Restrepo MD [address] [place] [address] Urology 07/29/24 Juvenal Cr MD 100 [facility] 200 [place] [address] Nephrology 07/29/24 Kamini Chavarria MD 15 [facility] 140 [place] [address] Neurology 07/29/24 Winston Bhagat DPM [address] [place] [address] Podiatry 07/29/24 documented as of this encounter
--- OUTSIDE RECORDS SUMMARY | 2024-11-03 09:54 | XMS_ITS | Encounter Summary ---
Author Organization [facility] Address [address] [facility] [address] [address] Phone Care Team Providers Care Water Taxi Boat Mate Name Role Phone Unavailable Primary Care Provider Unavailabl e Reason for Visit * Reason Onset Date Comments Med Refill 07/17/2021 Encounter Details Date Type Department Care Team (Late st Contact Info) Description 07/17/2021 Refill [facility] [address] [place] [address] Radha Palmer 100 [facility] Corey [facility] [address] [place] [phone] Social History Tobacco Use Types Packs/Day Years [...]
--- OUTSIDE RECORDS SUMMARY | 2024-11-03 09:54 | XMS_ITS | Encounter Summary ---
Author Organization [facility] Address [address] [address] Phone Care Team Providers Care Test Kitchen Home Economist Name Role Phone Unavailable Primary Care Provider Unavailabl e Encounter Details Date Type Department Care Team ([facility] st Contact Info) Description 10/31/2024 Treatment [facility]. [address] [address] Clinton Ortega MD [address] [address] End stage renal disease; Dependence [...] Dialysis Note - Clinton Ortega MD - 10/31/2024 12:00 AM EDT Patient: Darwin Stahl : 1960 Note Type: Dialysis Rounds-Comp Service Date: 10/31/2024 This patient was personally seen for a complete visit as part of routine monthly dialysis care for end stage renal disease. Attending Fashion Styling Intern: CLINTON ORTEGA Dialysis Location: [facility] Schedule: Shift: 1 OVERVIEW Patient is stable. ADEQUACY ASSESSMENT Kt/V, Natural Log 1.31 (10/03/24) [...] COMMENT COMMENTS: 10/15/24 doing well 10/22/24 stable 09/21/24 stable 09/24/24 [...] stable Signed by: CLINTON ORTEGA MD on 10/31/2024 at 09:40:16 PM Transcribed by: CLINTON ORTEGA MD on 10/31/2024 at 09:40:16 PM documented in this encounter Plan of Treatment Not on file documented as of this encounter Visit Diagnoses Diagnosis End stage renal disease Dependence on renal dialysis documented in this encounter
--- OUTSIDE RECORDS SUMMARY | 2024-11-03 09:54 | XMS_ITS ---
Author Name [facility] Address [address] [place] [address] Phone [phone] Organization [facility] e, NA DOCUMENT DISCLAIMER Multiple document versions may exist, please be sure you review the latest version. The information in the [facility] Continuity of Care Document represents a summary [...] Instructions Dosage Route Start Date End Date [facility] amlodipine 10 mg Take by mouth [...] 10.3 mg/dL 8.7 - 10.4 mg/dL - rBown paco2024 Ca x P Product 77 0 [...]
--- OUTSIDE RECORDS SUMMARY | 2024-11-03 09:54 | XMS_ITS | Clinical Summary ---
Author Organization [address] [facility] Address [address] [place] [address] Phone Care Team Providers Care Meter/Relay Craftsman Name Role Phone Andie Whitmore RN Primary [...] EDT - 10/22/2024 3:50 PM EDT Emergency [facility] [address] [place] [address] Diallo Ybarra MD Arteriovenous fistula [...] PM EDT Office Visit Orthopedic Surgery - [place] [address] [address] Winsotn Bhagat, DPM [address] [address] Health Maintenance Due Date Last Done Comments Pneumococcal Vaccine: 50+ Years (1 of 2 - PCV) 02/29/1980 Pneumococcal Vaccine: Pediatrics (0 to 5 Years) and At-Risk Patients (6 to 64 Years) (1 of 2 - PCV) 02/29/1980 RSV Immunization Adult Patients (1 - Risk 60-74 years 1-dose series) [...] around the site, then two 5-0 Prolene okkpoq-sq-donhz stitches applied with bleeding controlled us Diallo Ybarra MD IN CLINIC/BEDSIDE ORDERAB LES Final Result from Last 3 Months Insurance MEDICAID - [place] MEDICARE Care Teams Meter/Relay Craftsman Relationship Specialty Start Date End Date Andie Whitmore RN [address] [address] PCP - General 12/14/23
--- OUTSIDE RECORDS SUMMARY | 2024-11-03 09:54 | XMS_ITS | Clinical Summary ---
Author Organization [facility] Address [address] [place] [address] Phone Care Team Providers Care Sales Department Manager Name Role Phone Unavailable Primary Care Provider [...] Encounters Date Type Department Care Team Description 11/02/2024 Treatment [facility] [address] [phone] Juvenal Cr MD End stage renal disease; Dependence on renal dialysis 10/31/2024 Treatment [facility] [place] [id number] [phone] Juvenal Cr MD End stage renal disease; Dependence on renal dialysis 10/22/2024 Treatment [facility] [place] [id number] [phone] Juvenal Cr MD End stage renal disease; Dependence on renal dialysis 10/15/2024 Treatment [facility] [place] [id number] [phone] Juvenal Cr MD End stage renal disease; Dependence on renal dialysis 10/08/2024 Treatment [facility] [address] [phone] Juvenal Cr MD End stage renal disease; Dependence on renal dialysis 10/01/2024 Treatment [facility] [address] [phone] Juvenal Cr MD End stage renal disease; Dependence on renal dialysis 09/28/2024 Treatment [facility] [address] [phone] Juvenal Cr MD End stage renal disease; Dependence on renal dialysis 09/27/2024 Treatment [facility] [address] [phone] Juvenal Cr MD 09/19/2024 Treatment [facility] [address] [phone] Juvenal Cr MD 08/31/2024 Orders Only [facility] [address] [phone] Juvenal Cr MD from Last 3 Months [...] Annual FOBT 01/22/2023 01/22/2022, 11/27/2021 Influenza Vaccine (Season Ended) 2025 04/22/2021, 05/11/2020, 07/24/2019 Procedures Procedure Name Priority Date/Time Associated Diagnosis Comments HEPATITIS B SURFACE ANTIGEN W/REFL CONFIRM Routine 10/31/2024 3:00 AM EDT FERRITIN Routine 10/31/2024 3:00 AM EDT PTH, INTACT Routine 10/31/2024 3:00 AM EDT TRANSFERRIN SATURATION Routine 3:00 AM EDT PROTEIN, TOTAL, SERUM Routine 10/31/2024 3:00 AM EDT ELECTROLYTE PANEL Routine 10/31/2024 3:0 0 AM EDT MAGNESIUM Routine 10/31/2024 3:00 AM EDT LIPID PANEL Routine 10/31/2024 3:00 AM EDT LIH (HC) Routine 10/31/2024 3:00 AM EDT LACTATE DEHYDROGENASE Routine 10/31/2024 3:00 AM EDT GLUCOSE, RANDOM Routine 10/31/2024 3:00 AM EDT CREATININE, SERUM Routine 10/31/2024 3:0 0 AM EDT BILIRUBIN, TOTAL Routine 10/31/2024 3:00 AM EDT ALT Routine 10/31/2024 3:00 AM EDT AST Routine 10/31/2024 3:00 AM EDT ALKALINE PHOSPHATASE Routine 10/31/2024 3:00 AM EDT CALCIUM PHOSPHORUS PRODUCT, ADJUSTED (HC) Routine 10/31/2024 3:00 AM EDT CBC AND DIFFERENTIAL Routine 10/31/2024 3:00 AM EDT KT/V NATURAL LOG, URR (HC) Routine 10/31/2024 3:00 AM EDT PHOSPHATE ( PHOSPHORUS) Routine 10/26/2024 3:00 AM [...] PHOSPHORUS) Routine 09/19/2024 3:00 AM EST LIH (HC) Routine 09/19/2024 3:00 AM EST POTASSIUM Routine 09/19/2024 3:00 AM EST HEMOGLOBIN AND HEMATOCRIT, BLOOD Routine 09/19/2024 3:00 AM EST LIH (HC) Routine 09/14/2024 3:00 AM EST CALCIUM PHOSPHORUS PRODUCT, ADJUSTED (HC) Routine 09/14/2024 3:00 AM EST COLLECTION DATE (HC) Routine 09/14/2024 3:00 AM EST HEP B [...] Recently Relevant to Health Maintenance Results * [facility] (10/31/2024 3:00 AM EDT) Only the most recent of9 resultswithin the time period is included. Lipemia Normal Normal [facility] Icterus Normal Normal [facility] Hemolysis Normal Normal [facility] 10/31/2024 3:00 AM EDT 11/02/2024 4:31 PM EDT us Juvenal Cr MD LAB [id number] SOLICITED RESULTS Final Result [facility] [address] [place] [address] * (ABNORMAL) Kt/V Natural Log, URR (10/31/2024 3:00 AM EDT) Only the most recent of4 resultswithin the time period is included. Treatment Time 218 min [facility] Pre-Weight, lb 64.8 kg [facility] Post-Weight, lb 62.2 kg [facility] Ultrafiltration Rate 12 <=13 mL/kg/hr [facility] Comment: Recommend achieving Ultrafiltration Rate (UFR) <=10 mL/kg/hr References: Gregory LIN et al. Kidney Int. 2010; 79(2):250-257 BUN 57(H) 7 - 25 mg/dL [facility] BUN Post Dialysis 20 7 - 25 mg/dL [facility] UREA REDUCTION RATIO (%) 65 >=65 % [facility] Kt/V Natural Log 1.25 >=1.2 [facility] 10/31/2024 3:00 AM EDT 11/02/2024 4:31 PM EDT us Juvenal Cr MD LAB [id number] SOLICITED RESULTS Final Result [facility] [address] [place] [address] * (ABNORMAL) Calcium Phosphorus Product, Adjusted (10/31/2024 3:00 AM EDT) Only the most recent of5 resultswithin the time period is included. Albumin 4.2 3.6 - 5.4 g/dL [facility] Calcium 9.6 8.6 - 10.3 mg/dL [facility] Phosphorus, Serum 8.4(H) 2.5 - 5.0 mg/dL [facility] Ca*PO4 80.6(A) <55.0 mg2/dL2 [facility] Calcium, Adjusted Total 9.6 8.6 - 10.3 mg/dL [facility] CA*PO4 CORRCTD 80.6(A) <55.0 mg2/dL2 [facility] 10/31/2024 3:00 AM EDT 11/02/2024 4:31 PM EDT Juvenal Cr MD LAB [id number] SOLICITED RESULTS Final Result Performing Organization Address [facility] de Phone Number [facility] [address] [place] [address] * Hepatitis B Surface Ag w/Reflex Confirmation (10/31/2024 3:00 AM EDT) Only the most recent of5 resultswithin the time period is included. Pathologist [facility] Hep B Surface Antigen Negative Negative [facility] 10/31/2024 3:00 AM EDT 11/02/2024 4:31 PM EDT Juvenal Cr MD LAB BLOOD ORDERABLES Final Re sult Performing Organization Address [facility] de Phone Number [facility] [address] [place] [address] * (ABNORMAL) TSAT (10/31/2024 3:00 AM EDT) Only the most recent of4 resultswithin the time period is included. Pathologist [facility] Iron 36(L) 65 - 175 ug/dL [facility] Transferrin 161(L) 215 - 365 mg/dL [facility] TIBC 225 211 - 406 ug/dL [facility] Iron Saturation (TSat) 16(L) 22 - 52 % [facility] 10/31/2024 3:00 AM EDT 11/02/2024 4:31 PM EDT Juvenal Cr MD LAB BLOOD ORDERABLES Final Re sult Performing Organization Address [facility] de Phone Number [facility] [address] [place] [address] * (ABNORMAL) CBC and Differential (10/31/2024 3:00 AM EDT) Only the most recent of4 resultswithin the time period is included. Pathologist [facility] DIFFERENTIAL MANUAL, 2 Not Indicated [facility] White Blood Cells 7.4 4.2 - 9.1 K/uL [facility] RBC 3.31(L) 4.63 - 6.08 M/uL [facility] Hgb 9.7(L) 13.7 - 17.5 g/dL [facility] Hemoglobin x 3 29.1(L) 41.1 - 52.5 g/dL [facility] Hematocrit 30.9(L) 40.1 - 51.0 % [facility] MCV 93.4(H) 79.0 - 92.2 fL [facility] MCH 29.3 25.7 - 32.2 pg [facility] MCHC 31.4(L) 32.3 - 36.5 g/dL [facility] Platelets 209 163 - 337 K/uL [facility] RDW 18.5(H) 11.6 - 14.4 % [facility] Neutrophils Relative 77.7(H) 34.0 - 67.9 % [facility] Lymphocytes Relative 10.3(L) 21.8 - 53.1 % [facility] Monocytes 7.7 5.3 - 12.2 % [facility] Eosinophils Relative 2.4 0.8 - 7.0 % [facility] Basophils Relative 0.8 0.2 - 1.2 % [facility] Immature Granulocytes 1.1(H) 0.0 - 1.0 % [facility] 10/31/2024 3:00 AM EDT 11/02/2024 4:53 PM EDT Juvenal Cr MD LAB BLOOD ORDERABLES Final Re sult Performing Organization Address [facility] Co de Phone Number [facility] [address] [place] [address] * (ABNORMAL) ALT (10/31/2024 3:00 AM EDT) Only the most recent of4 resultswithin the time period is included. ALT (SGPT) 9(L) 10 - 49 U/L [facility] 10/31/2024 3:00 AM EDT 11/02/2024 4:31 PM EDT Juvenal Cr MD LAB BLOOD ORDERABLES Final Re sult Performing Organization Address City/[facility]/ZIP Co de Phone Number [facility] [address] [place] [address] * AST (10/31/2024 3:00 AM EDT) Only the most recent of4 resultswithin the time period is included. AST (SGOT) 16 <34 U/L [facility] 10/31/2024 3:00 AM EDT 11/02/2024 4:31 PM EDT Juvenal Cr MD LAB BLOOD ORDERABLES Final Re sult Performing Organization Address [facility] Co de Phone Number [facility] [address] [place] [address] * (ABNORMAL) Protein, total (10/31/2024 3:00 AM EDT) Only the most recent of4 resultswithin the time period is included. Total Protein 6.2(L) 6.4 - 8.9 g/dL [facility] 10/31/2024 3:00 AM EDT 11/02/2024 4:31 PM EDT Juvenal Cr MD LAB BLOOD ORDERABLES Final Re sult Performing Organization Address [facility] Co de Phone Number [facility] [address] [place] [address] * Alkaline phosphatase (10/31/2024 3:00 AM EDT) Only the most recent of4 resultswithin the time period is included. Alkaline Phosphatase 90 46 - 116 U/L [facility] 10/31/2024 3:00 AM EDT 11/02/2024 4:31 PM EDT Juvenal Cr MD LAB BLOOD ORDERABLES Final Re sult Performing Organization Address [facility] de Phone Number [facility] [address] [place] [address] * (ABNORMAL) PTH, Intact (10/31/2024 3:00 AM EDT) Only the most recent of4 resultswithin the time period is included. PTH, Intact 108(L) 160 - 721 pg/mL [facility] Comment: Suggested (KDIGO) ESRD maintenance range is two to nine times the upper normal limit (80.1 pg/mL) for the laboratory. 10/31/2024 3:00 AM EDT 11/02/2024 4:31 PM EDT Juvenal Cr MD LAB BLOOD ORDERABLES Final Re sult Performing Organization Address [facility] Co de Phone Number [facility] [address] [place] [address] * Magnesium (10/31/2024 3:00 AM EDT) Only the most recent of4 resultswithin the time period is included. Magnesium 2.2 1.9 - 2.7 mg/dL [facility] 10/31/2024 3:00 AM EDT 11/02/2024 4:31 PM EDT Juvenal Cr MD LAB BLOOD ORDERABLES Final Re sult Performing Organization Address [facility] de Phone Number [facility] [address] [place] [address] * (ABNORMAL) Lactate dehydrogenase (10/31/2024 3:00 AM EDT) Only the most recent of4 resultswithin the time period is included. LDH 284(H) 120 - 246 U/L [facility] 10/31/2024 3:00 AM EDT 11/02/2024 4:31 PM EDT Juvenal Cr MD LAB BLOOD ORDERABLES Final Re sult Performing Organization Address [facility] de Phone Number [facility] [address] [place] [address] * (ABNORMAL) Glucose, random (10/31/2024 3:00 AM EDT) Only the most recent of4 resultswithin the time period is included. Glucose 131(H) 74 - 109 mg/dL [facility] 10/31/2024 3:00 AM EDT 11/02/2024 4:31 PM EDT us Juvenal Cr MD LAB BLOOD ORDERABLES Final Re sult Performing Organization Address [facility] Co de Phone Number [facility] [address] [place] [address] * (ABNORMAL) Ferritin (10/31/2024 3:00 AM EDT) Only the most recent of4 resultswithin the time period is included. Ferritin 1,046(H) 22 - 322 ng/mL [facility] 10/31/2024 3:00 AM EDT 11/02/2024 4:31 PM EDT Juvenal Cr MD LAB BLOOD ORDERABLES Final Re sult Performing Organization Address [facility] de Phone Number [facility] [address] [place] [address] * (ABNORMAL) Creatinine, serum (10/31/2024 3:00 AM EDT) Only the most recent of4 resultswithin the time period is included. Creatinine 5.88(H) 0.70 - 1.30 mg/dL [facility] 10/31/2024 3:00 AM EDT 11/02/2024 4:31 PM EDT Juvenal Cr MD LAB BLOOD ORDERABLES Final Re sult Performing Organization Address [facility] de Phone Number [facility] [address] [place] [address] * Bilirubin, total (10/31/2024 3:00 AM EDT) Only the most recent of4 resultswithin the time period is included. Total Bilirubin 1.1 0.3 - 1.2 mg/dL [facility] 10/31/2024 3:00 AM EDT 11/02/2024 4:31 PM EDT us Juvenal Cr MD LAB BLOOD ORDERABLES Final Re sult Performing Organization Address [facility] de Phone Number [facility] [address] [place] [address] * Lipid panel (10/31/2024 3:00 AM EDT) Only the most recent of2 resultswithin the time period is included. Cholesterol 133 <200 mg/dL [facility] Comment: Optimal: ?<200 Borderline: ? 200-239 Higher Risk: ?>239 Triglycerides 49 <150 mg/dL [facility] Comment: Optimal: ?<150 Borderline High: ??150-199 High: ? 200-499 Very High: ?>499 HDL 60 >59 mg/dL [facility] Comment: Desirable: ?>59 Higher Risk: ?<40 LDL-Calc 63 <100 mg/dL [facility] Comment: Optimal: ?<100 Above Optimal: ?100-129 Borderline High: ??130-159 High: ? 160-189 Very High: ?>189 VLDL Cholesterol Isaias 10 <30 mg/dL [facility] Comment: Optimal: ?<30 Borderline High: ??30-39 High: ? 40-99 Very High: ?>99 Chol/HDL Ratio 2.2 <3.3 [facility] Comment: Optimal: ?<3.3 Higher Risk: ?>6.2 10/31/2024 3:00 AM EDT 11/02/2024 4:31 PM EDT us Juvenal Cr MD LAB BLOOD ORDERABLES Final Re sult Performing Organization Address City/[facility] Co de Phone Number [facility] [address] [place] [address] * Electrolyte panel (10/31/2024 3:00 AM EDT) Only the most recent of4 resultswithin the time period is included. Sodium 136 136 - 145 mEq/L [facility] Comment:Verified by repeat a nalysis Potassium 4.3 3.4 - 5.0 mEq/L [facility] Chloride 98 98 - 107 mEq/L [facility] Bicarbonate (CO2) 26 21 - 31 mEq/L [facility] Anion Gap 12 3 - 14 mEq/L [facility] 10/31/2024 3:00 AM EDT 11/02/2024 4:31 PM EDT us Juvenal Cr MD LAB BLOOD ORDERABLES Final Re sult Performing Organization Address [facility] Co de Phone Number [facility] [address] [place] [address] * (ABNORMAL) Phosphorus (10/26/2024 3:00 AM EDT) Only the most recent of2 resultswithin the time period is included. Phosphorus, Serum 9.8(H) 2.5 - 5.0 mg/dL [facility] 10/26/2024 3:00 AM EDT 10/27/2024 1:10 PM EDT us Juvenal Cr MD LAB BLOOD ORDERABLES Final Re sult Performing Organization Address [facility]/ZIP Co de Phone Number [facility] [address] [place] [address] * (ABNORMAL) Hemoglobin and hematocrit (10/17/2024 3:00 AM EDT) Only the most recent of2 resultswithin the time period is included. Hgb 10.3(L) 13.7 - 17.5 g/dL [facility] Hematocrit 32.5(L) 40.1 - 51.0 % [facility] Hemoglobin x 3 30.9(L) 41.1 - 52.5 g/dL [facility] 10/17/2024 3:00 AM EDT 10/18/2024 1:27 PM EDT Juvenal Cr MD LAB BLOOD ORDERABLES Final Re sult Performing Organization Address [facility] de Phone Number [facility] [address] [place] [address] * Potassium (09/26/2024 3:00 AM EST) Only the most recent of3 resultswithin the time period is included. Potassium 4.8 3.4 - 5.0 mEq/L [facility] 09/26/2024 3:0 0 AM EST 09/27/2024 1:02 PM EST Juvenal Cr MD LAB BLOOD ORDERABLES Final Re sult Performing Organization Address [facility] de Phone Number [facility] [address] [place] [address] * Collection Date (09/14/2024 3:00 AM EST) Collection Date See Comment [facility] Comment: Patient sample received may exceed specimen stability, based on the collection date electronically provided. ??When reviewing patient results, verify collection information and consider specimen stability before acting on any critical or panic results. 09/14/2024 3:00 AM EST Juvenal Cr MD LAB [id number] SOLICITED RESULTS Final Result Performing Organization Address [facility] de Phone Number [facility] [address] [place] [address] * Hep B Core Ab, Total w/Reflex IgM (09/12/2024 3:00 AM EST) HBc Total Ab, S Negative Negative [facility] 09/12/2024 3:00 AM EST 09/13/2024 3:03 PM EST Juvenal Cr MD LAB [id number] SOLICITED RESULTS Final Result Performing Organization Address [facility] de Phone Number [facility] [address] [place] [address] * (ABNORMAL) Hepatitis B Surface Antibody (09/12/2024 3:00 AM EST) Pathologist [facility] Hep B Surface Antibody <4(A) mIU/mL [facility] Comment: Interpretation: <10: No Immunity >=10: Probable Immunity 09/12/2024 3:00 AM EST 09/13/2024 3:03 PM EST us Juvenal Cr MD LAB BLOOD ORDERABLES Final Re sult Performing Organization Address [facility] de Phone Number [facility] [address] [place] [address] * Confirmation Test HCV (08/31/2024 3:00 AM EST) Pathologist [facility] Hep C Ab Confirmation Not needed [facility] 08/31/2024 3:00 AM EST 09/01/2024 1:35 PM EST us Juvenal Cr MD LAB BLOOD ORDERABLES Final Re sult Performing Organization Address [facility] de Phone Number [facility] [address] [place] [address] * HEPATITIS C ABS W/REFLEX RNA DETECTR (08/31/2024 3:00 AM EST) Pathologist [facility] Hep C Virus Ab Non-Reacti ve Non-Reacti ve [facility] 08/31/2024 3:00 AM EST 09/01/2024 1:41 PM EST us Juvenal Cr MD LAB [id number] SOLICITED RESULTS Final Result Performing Organization Address [facility] de Phone Number [facility] [address] [place] [address] * Aluminum level (08/31/2024 3:00 AM EST) Pathologist [facility] Aluminum 5 1 - 20 ug/L [facility] 08/31/2024 3:00 AM EST 09/01/2024 1:40 PM EST Juvenal Cr MD LAB BLOOD ORDERABLES Final Re sult Performing Organization Address [facility] Co de Phone Number [facility] [address] [place] [address] * Uric Acid (08/31/2024 3:00 AM EST) Uric Acid 5.4 4.4 - 7.6 mg/dL [facility] 08/31/2024 3:00 AM EST 09/01/2024 1:41 PM EST Juvenal Cr MD LAB BLOOD ORDERABLES Final Re sult Performing Organization Address [facility] de Phone Number [facility] [address] [place] [address] * Occult blood x 3, stool (01/22/2022) Occult Blood, Stool #1 Negative Negative [facility] Comment: Performed by [facility]. Occult Blood, Stool #2 Negative Negative [facility] Comment: Performed by [facility]. Collection Time 600 [facility] 01/22/2022 01/27/2022 1:2 3 PM EDT Narrative [facility] - 01/27/2022 Unless otherwise specified, test(s) performed at: [facility], [address] [place], [place] [id number] GREEN MARKETER: Cruzito Knutson M.D. For any questions, please call customer service at FREQUENCY:OTHER Resulting Agency Comment Specimen source: Occult Blood Card Juvenal Cr MD LAB BODY FLUIDS AND STOOLS OR DERABLES Final Result Performing Organization Address [facility] de Phone Number [facility] from Last 3 Months or Most Recently Relevant to Health Maintenance Insurance [place]
[2024-11-03] MEDS: Albuterol Sulfate 2.5 MG, Albuterol/Iprat 2.5/0.5MG 3 ML 3 ML INHALE ×2 (09:55→11:22)
--- NOTE | 2024-11-03 10:01 | PC.NURSE ---
Pt comes from home for increased sob/cough- unable to ambulate short distances without stopping d/t feeling sob. A/ox3, speaking in full sentences, respirations even and unlabored, no increased wob- states feeling SOB, lung sounds cta bilaterally. Was found to be mid 80s on RA, placed on 2L NC with good effect, maintaining O2 sat high 90s- does not normally wear oxygen at baseline. Placed on telemetry monitor, NSR hr- 60s, denies cp/dizziness. Pt states he goes to dialysis M,W,F, is compliant with treatments. Edema noted to bilateral lower extremities Fistula noted to left arm. EKG and Labs obtained and sent. 22g IV placed in R ac. Respiratory at bedside for breathing treatment. Call preciado within reach, all needs met at this time.
[2024-11-03 10:11] LABS: MANUAL DIFF FLAG NO
[2024-11-03 10:13] LABS: VBG Base Excess 10.6 mmol/L; VBG HCO3 35 mmol/L (22-26); VBG pCO2 50 mmHg; VBG pH 7.46 (7.32-7.43); VBG pO2 38 mmHg
[2024-11-03 10:13] LABS: Venous Blood Gas Refer to POC result
--- NOTE | 2024-11-03 10:16 | PC.NURSE ---
Pt BP 172/85, PITO Reed aware of increased BP. Pt states compliant with home BP meds. Denies dizziness/blurry vision/lightheadness.
[2024-11-03 10:18] LABS: Basophils Absolute Auto 0.1 X10*3/uL (0.0-0.2); Basophils Percent Auto 0.7 % (0-2); Eosinophils Absolute Auto 0.2 X10*3/uL (0.0-0.4); Eosinophils Percent Auto 3.4 % (0-4); Hematocrit 30.8 % (42.0-52.0); Hemoglobin 10.1 g/dl (14.0-18.0); Imm Gran Abs Auto 0.02 X10*3/uL (0.00-0.03); Imm Gran Pct Auto 0.3 % (0.0-0.4); Lymphocytes Percent Auto 14.7 % (20-40); Mean Corpuscular HGB Conc 32.8 g/dl (31.0-36.0); Mean Corpuscular Volume 88.5 fL (80.0-98.0); Mean Platelet Volume 10.7 fL (9.4-12.4); Monocytes Absolute Auto 0.5 X10*3/uL (0.1-1.2); Monocytes Percent Auto 6.8 % (2-11); Neutrophils Percent Auto 74.1 % (45-73); Platelet Count 193 X10*3/uL (160-400); Red Blood Count 3.48 X10*6/uL (4.60-5.80); Red Cell Distribution Width 18.2 % (11.0-16.0); White Blood Count 6.8 X10*3/uL (4.8-10.8)
[2024-11-03 10:26] LABS: Lactic Acid 0.8 mmol/L (0.5-2.0)
[2024-11-03 10:30] LABS: Alanine Aminotransferase 12 U/L (0-40); Albumin Level 4.5 g/dL (3.5-5.0); Alkaline Phosphatase 113 U/L (39-117); Anion Gap 17 (12-20); Aspartate Amino Transferase 27 U/L (5-37); Bilirubin Direct 0.5 mg/dL (0.0-0.5); Bilirubin Total 1.4 mg/dL (0.0-1.0); Blood Urea Nitrogen 40 mg/dL (9-16); Calcium 10.3 mg/dL (8.4-10.2); Carbon Dioxide 29 mmol/L (22-29); Chloride 94 mmol/L (96-108); Creatinine Clr Calc Pharmacy 13.9; Estimated Glomerular Filt Rate 14; Glucose Random 88 mg/dL (60-115); Lipase 22 U/L (8-78); Magnesium 2.1 mg/dL (1.6-2.6); Potassium 3.8 mmol/L (3.3-5.1); Sodium 136 mmol/L (135-145); Total Protein 7.1 g/dL (6.5-8.0)
[2024-11-03 10:32] LABS: B Type Natriuretic Peptide 4986 pg/mL (<100)
[2024-11-03 10:33] LABS: Troponin-I High Sensitivity 86.6 ng/L (<3.5-35.0)
[2024-11-03 11:01] LABS: Influenza A PCR NEGATIVE (Negative); Influenza B PCR NEGATIVE (Negative); Resp Syncy Virus RNA Qual PCR NEGATIVE (Negative); SARS COV2 PCR INHOUSE NEGATIVE (Negative)
[2024-11-03 12:25] LABS: Troponin-I High Sensitivity 73.9 ng/L (<3.5-35.0)
[2024-11-03] MEDS: iohexoL 350 MG/ML 100 ML INFUS..BTL IV (12:31)
[2024-11-03] MEDS: rOPINIRole HCL 2 MG TABLET PO ×2 (12:34→20:19)
--- NOTE | 2024-11-03 13:55 | P.HPHOSP_ITS ---
History of Present Illness Date of Service: 11/03/24 Attending physician on admission: Stevie Ordoñez Chief Complaint: SOB Pt is a 64-year-old male with a PMH significant for?HFrEF, ESRD on HD M/W/F, prostate cancer with mets to the bone, anemia of chronic disease, HTN, HLD, hx of erosive gastritis, and restless leg syndrome who presents to the ED with?worsening SOB, THACKER, and cough with the past few days. Pt reports was recently hospitalized on 09/08-09/10 for acute hypoxic respiratory failure in the setting of acute bronchitis and rhino virus infection that initially required being on high-flow overnight. Pt reports since then he has lungs never fully cleared up or returned to baseline. Has had chronic SOB, THACKER, and occasionally productive cough since then, though has significantly worsened in the past 3 days. Pt reports he simply ?can not breathe? and has been unable to sleep due to difficulty breathing and cough x2 nights. No fever or chills. Some chest tightness associated with deep breathing and cough. Pt denies any pulmonary diagnosis. Quit smoking over 15 years ago. Denies chest pain/pressure, palpitations. No nausea, vomiting, abdominal pain. Pt received dialysis yesterday for a full session, though he notes he is still approximately 1 kilo above baseline. In the ED pt was initially tachypneic at 22, hypertensive as high as 187/82, and desatting to 85% on RA. Labs were significant for overall grossly unremarkable and around baseline for pt. Serial troponins elevated at 86.6 with repeat flat at 73.9, similar to prior. BNP elevated at 4986, similar to prior. Creatinine 4.35, improved from prior of 5.67. T bili 1.4, LFTs otherwise WNL. Lactic acid WNL at 0.8. No leukocytosis. Stable normocytic anemia. No significant electrolyte abnormalities. Tested negative for flu, COVID, RSV. Full respiratory panel pending. CXR showed multifocal bilateral pulmonary opacities concerning for infection vs edema. Also showed small right pleural effusion and suspicious lesion in proximal left humerus. CTA of chest found no pulmonary embolus, though showed moderate right and small left pleural effusions with adjacent compressive atelectasis and/or consolidations. Additionally showed hazy bilateral ground-glass opacities, multiple right upper and left lower lobe nodular ground-glass opacities, and bilateral septal thickening secondary to inflammatory/infection or edema, and right middle lobe atelectasis and/or infiltrate. EKG demonstrated normal sinus rhythm without evidence of significant ischemic changes. Pt was treated with DuoNebs, allopurinol, ceftriaxone, and doxycycline. Pt will be admitted to the hospital for treatment and further evaluation of acute hypoxic respiratory failure in the setting of multifocal pneumonia. Review of Systems 2 Review of Systems: Negative except for that which is stated in the HPI. [facility] Medical History Anemia HTN (hypertension) ESRD (end stage renal disease) Creatinine elevation Urinary retention History of upper gastrointestinal bleeding A-V fistula Fusion of lumbar spine Chronic kidney disease Urinary tract infection Enlarged prostate Kidney disease Elevated PSA Anemia Metabolic acidosis Bilateral hydronephrosis Hypocalcemia Acute anemia Acute kidney injury Surgical History History of fusion of cervical spine Hx of esophagogastroduodenoscopy History of transurethral resection of prostate S/P arteriovenous (AV) fistula creation History of hip replacement, total Social History Household Members: Family Household Members Other:: sisterr Housing: House Housing Other:: mobile home Do you presently have visiting nurse or other home services: No Alcohol intake: former Patient Tobacco Use Status: Former Tobacco user Tobacco use type: Cigarette Years Smoked: 50 Smoked in Last 30 Days: No e-Cigarette/Vaping Use: Former Use Use of substances other than those prescribed or required for medical reasons: No Substance Use Type: Marijuana Advance Directives: No Advance Directives Information Provided: No Do you have a plan to hurt others: No Plan Nutrition Risks: No Nutritional Risk service: No Current occupational status: disabled Meds Allergies Allergy/AdvReac Type Severity Reaction Status Date / Time No Known Allergies Allergy Verified 11/03/24 09:04 [No Known Allergies*] Active Medications: Current Medications Doxycycline Hyclate 100 mg/ (Sodium Chloride) 250 mls @ 166.67 mls/hr IV ONCE ONE Stop: 11/03/24 15:13 Home Medications ?Medication ?Instructions ?Recorded ?Confirmed ?Last Taken ?Type blood pressure test kit-large #1 ea 03/18/22 09/08/24 09/07/24 History amlodipine 10 mg tablet 10 mg PO BEDTIME 12/17/22 11/03/24 09/07/24 History ropinirole 2 mg tablet 2 mg PO TID 08/04/23 11/03/24 11/03/24 09:00 History abiraterone 250 mg tablet 1,000 mg PO BEDTIME 09/08/24 11/03/24 09/07/24 History albuterol sulfate 90 mcg/actuation 2 puff inhalation Q4H PRN wheezing 09/08/24 11/03/24 Unknown History aerosol inhaler (Ventolin HFA) efinaconazole 10 % topical 1 appl topical DAILY 09/08/24 11/03/24 11/03/24 09:00 History solution with applicator (Jublia) hydralazine 50 mg tablet 100 mg PO BID 09/08/24 11/03/24 11/03/24 09:00 History prednisone 5 mg tablet 5 mg PO DAILY 09/08/24 11/03/24 11/03/24 09:00 History rosuvastatin 5 mg tablet 5 mg PO DAILY 09/08/24 11/03/24 11/03/24 09:00 History bumetanide 2 mg tablet 2 mg PO DAILY 11/03/24 11/03/24 11/03/24 09:00 History sevelamer carbonate 800 mg tablet 800 mg PO TIDWM 11/03/24 11/03/24 11/03/24 09:00 History vit C 250 mg-vit E 90 mg-zinc 40 2 tab PO BEDTIME 11/03/24 11/03/24 Unknown History mg-copper 1 df-[id number]-[id number] capsule (PreserVision AREDS-2) Physical Exam 2 Vital Signs and Narrative: Vital Signs: Last Vital Signs Temp 98.0 F 11/03/24 11:58 Pulse 75 11/03/24 12:34 Resp 18 11/03/24 12:34 BP 187/82 H 11/03/24 12:34 Pulse Ox 93 11/03/24 12:34 O2 Del Method Nasal Cannula 11/03/24 12:34 O2 Flow Rate 2 11/03/24 12:34 BMI result Body Mass Index 24.2 General: AOx3, no acute distress Resp: CTA bilaterally though diminished. No crackles, wheezing, or rhonchi CVS: S1, S2, RRR GI: +BS, NT, no distention Skin: Warm, dry Neuro: Cranial nerves II-XII grossly intact bilaterally. Motor grossly intact bilaterally Extremities: Trace bilateral edema Psych: Appropriate affect Results Labs 11/03/24 10:02 11/04/24 06:15 Labs: Laboratory Results - last 24 hr 11/03/24 11/03/24 11/03/24 10:01 10:02 10:10 MCV 88.5 MCH 29.0 MCHC 32.8 RDW 18.2 H Plt Count 193 MPV 10.7 Immature Gran % (Auto) 0.3 Neut % (Auto) 74.1 H Lymph % (Auto) 14.7 L Carver % (Auto) 6.8 Eos % (Auto) 3.4 Baso % (Auto) 0.7 Lymph # (Auto) 1.0 L Carver # (Auto) 0.5 Eos # (Auto) 0.2 Baso # (Auto) 0.1 Abs Immat Gran (auto) 0.02 Absolute Neuts (auto) 5.0 Absolute Nucleated RBC 0.000 Nucleated RBC % (auto) 0.0 VBG pH 7.46 H VBG pCO2 50 VBG pO2 38 VBG HCO3 35 H VBG O2 Saturation 58.0 VBG Base Excess 10.6 Anion Gap 17 Estim Creat Clear Calc 13.9 Estimated GFR 14 Random Glucose 88 Lactic Acid 0.8 Calcium 10.3 H D Magnesium 2.1 Total Bilirubin 1.4 H Direct Bilirubin 0.5 AST 27 ALT 12 Alkaline Phosphatase 113 B-Natriuretic Peptide 4986 H Total Protein 7.1 Albumin 4.5 Lipase 22 Influenza Type A (PCR) NEGATIVE Influenza Type B (PCR) NEGATIVE RSV RNA Qual (PCR) NEGATIVE SARS-CoV-2 RNA (RT-PCR) NEGATIVE Assessment and Plan (1) Multifocal pneumonia: Status: Acute (2) Acute respiratory failure with hypoxia: Status: Resolved Plan Pt is a 64-year-old male with a PMH significant for?HFrEF, ESRD on HD M/W/F, prostate cancer with mets to the bone, anemia of chronic disease, HTN, HLD, hx of erosive gastritis, and restless leg syndrome who presents to the ED with?worsening SOB, THACKER, and cough with the past few days. Pt will be admitted to the hospital for treatment and further evaluation of acute hypoxic respiratory failure in the setting of multifocal pneumonia. Acute hypoxic respiratory failure in the setting of multifocal pneumonia Pt with worsening SOB, THACKER, productive cough times 3 days, desatting to 95% on RA a in triage CTA negative for PE but showed multiple areas of ground-glass opacities suggestive infectious vs inflammatory etiology Recently admitted 09/08-09/10 for respiratory failure secondary to acute bronchitis and rhino virus, initially required high-flow Current pneumonia pikely post-viral No sepsis: Initial episode of tachypnea, but no fever, tachycardia, or leukocytosis; lactic acid WNL Will treat with doxycycline and ceftriaxone, started 11/03/2024 DuoNebs p.r.n., guaifenesin Titrate supplemental O2 >92, wean as tolerated Monitor respiratory status ESRD on HD M/W/F Last dialyzed yesterday Nephrology consult, follows with [facility]ANE Follow BMP Elevated troponins Initial troponin 86.6 with repeat flat at 73.9 Similar to previous EKG nonischemic, pt asymptomatic Likely type 2 in the setting of increased demand Pt being monitored on telemetry Elevated BNP Similar to previous Likely in the setting of dialysis Restless leg syndrome Continue ropinirole HTN Continue amlodipine, hydralazine Full Code Attending:?Dr. Ordoñez DVT Prophylaxis: Lovenox Pt will require a hospitalization of at least two nights for treatment of?acute hypoxic respiratory failure in the setting of multifocal pneumonia requiring supplemental oxygen and IV antibiotics. Quality Stroke Does the patient have a stroke diagnosis?: No VTE Prior VTE?: No VTE Risk Level:: Medical - moderate - high VTE Device Contraindication: Treatment Not Indicated VTE Drug Contraindication: N/A - Med Ordered
[2024-11-03] MEDS: Doxycycline Hyclate 100 MG in 0.9 % Sodium Chloride 250 ML 166.67 MG IV (14:04)
[2024-11-03] MEDS: cefTRIAXone sodium 2 GM VIAL IVPUSH (14:04)
[2024-11-03 14:06] LABS: Adenovirus PCR Not Detected (Not Detect.); Bordetella parapertussis PCR Not Detected (Not Detect.); Bordetella pertussis PCR Not Detected (Not Detect.); Chlamydia pneumoniae PCR Not Detected (Not Detect.); Coronavirus 229E PCR Not Detected (Not Detect.); Coronavirus HKU1 PCR Not Detected (Not Detect.); Coronavirus NL63 PCR Not Detected (Not Detect.); Coronavirus OC43 PCR Not Detected (Not Detect.); Human metapneumovirus PCR Not Detected (Not Detect.); Influenza A PCR Not Detected (Not Detect.); Influenza B PCR Not Detected (Not Detect.); Mycoplasma pneumoniae PCR Not Detected (Not Detect.); Parainfluenza 1 PCR Not Detected (Not Detect.); Parainfluenza 2 PCR Not Detected (Not Detect.); Parainfluenza 3 PCR Not Detected (Not Detect.); Parainfluenza 4 PCR Not Detected (Not Detect.); RSV PCR Not Detected (Not Detect.); Rhino/Enterovirus PCR Not Detected (Not Detect.)
--- NOTE | 2024-11-03 14:14 | PC.NURSE ---
Pt desat to mid 80s on 2L NC- endorsing mild sob. PITO Reed made aware, placed on 3L NC with good effect, O2 sat mid 90s. Vitals updated in worklist, BP 180s/90s- MD Aware.
[2024-11-03 14:35] LABS: Influenza A H1 PCR Not Detected (Not Detect.); Influenza A H1-2009 PCR Not Detected (Not Detect.); Influenza A H3 PCR Not Detected (Not Detect.); SARS-CoV-2 PCR Not Detected (Not Detect.)
--- NOTE | 2024-11-03 15:20 | PHA.MEDREC ---
Addendum entered by Andie Trevizo RPh 11/03/24 15:56: [facility] reviewed Original Note: Pharmacy Consult ? Medication Reconciliation Pharmacy has completed the medication reconciliation. Spoke to pt to confirm meds. Pt states they take Sevelamer instead of calcium acetate. Pt also states they are taking old bumetanide prescription which they report taking on and off and are now taking it. Reports that they were not told to take the Bumex, but like to take it when they feel like they didn't pee enough today . Leaving on med rec.
[2024-11-03] MEDS: hydrALAZINE HCl 50 MG TABLET 100 MG PO (15:37)
[2024-11-03] MEDS: Heparin Sodium,Porcine 5,000 UNIT/ML VIAL 5000 UNIT SUBCUT (15:38)
--- NOTE | 2024-11-03 15:40 | PC.NURSE ---
Report received from BRITT Arce. Awaiting pt. to arrive in room overflow ed 5.
--- NOTE | 2024-11-03 16:00 | PC.NURSE ---
Pt. now in room, vs taken. Oxygen up to 4 L/NC, pt. was satting mid 80's at time of arrival.
--- OUTSIDE RECORDS SUMMARY | 2024-11-03 16:21 | XMS_ITS | Clinical Summary ---
Author Organization [facility] Address [address] [place] [address] Phone Care Team Providers Care Environment Coordinator Name Role Phone Unavailable Primary Care Provider [...] 11/02/2024 Treatment [facility] [address] [phone] Juvenal Cr MD End stage renal disease; Dependence on renal dialysis 10/31/2024 Treatment [facility] [place] [id number] [address] Juvenal Cr MD End stage renal disease; Dependence on renal dialysis 10/22/2024 Treatment [facility] [place] [id number] [phone] Juvenal Cr MD End stage renal disease; Dependence on renal dialysis 10/15/2024 Treatment [facility] [place] [id number] [phone] Juvenal Cr MD End stage renal disease; Dependence on renal dialysis 10/08/2024 Treatment [facility] [address] [phone] Juvenal Cr MD End stage renal disease; Dependence on renal dialysis 10/01/2024 Treatment [facility] [address] [phone] Juvenal Cr MD End stage renal disease; Dependence on renal dialysis 09/28/2024 Treatment [facility] [address] [phone] Juvenal Cr MD End stage renal disease; Dependence on renal dialysis 09/27/2024 Treatment [facility] [address] [phone] Juvenal Cr MD 09/19/2024 Treatment [facility] [address] [phone] Juvenal Cr MD 08/31/2024 Orders Only [facility] [address] [phone] Juvenal Cr MD from Last 3 Months [...] Recently Relevant to Health Maintenance Results * [facility] (10/31/2024 3:00 AM EDT) Only the most recent of9 resultswithin the time period is included. Lipemia Normal Normal [facility] Icterus Normal Normal [facility] Hemolysis Normal Normal [facility] 10/31/2024 3:00 AM EDT 11/02/2024 4:31 PM EDT us Juvenal Cr MD LAB [id number] SOLICITED RESULTS Final Result [facility] [address] [place] [address] * (ABNORMAL) Kt/V Natural Log, URR (10/31/2024 [...] PM EDT us Juvenal Cr MD LAB [id number] SOLICITED RESULTS Final Result [facility] [address] [place] [address] * (ABNORMAL) Calcium Phosphorus Product, Adjusted (10/31/2024 [...] AM EDT 11/02/2024 4:31 PM EDT Juvenal rC MD LAB [id number] SOLICITED RESULTS Final Result Performing Organization Address [facility] de Phone Number [facility] [address] [place] [address] * Hepatitis B Surface Ag w/Reflex Confirmation (10/31/2024 3:00 AM EDT) Only the most recent of5 resultswithin the time period is included. Pathologist [facility] Hep B Surface Antigen Negative Negative [facility] 10/31/2024 3:00 AM EDT 11/02/2024 4:31 PM EDT Juvenal Cr MD LAB BLOOD ORDERABLES Final Re sult Performing Organization Address [facility] de Phone Number [facility] [address] [place] [address] * (ABNORMAL) TSAT (10/31/2024 3:00 AM EDT) Only the most recent of4 resultswithin the time period is included. Pathologist [facility] Iron 36(L) 65 - 175 ug/dL [facility] Transferrin 161(L) 215 - 365 mg/dL [facility] TIBC 225 211 - 406 ug/dL [facility] Iron Saturation (TSat) 16(L) 22 - 52 % [facility] 10/31/2024 3:00 AM EDT 11/02/2024 4:31 PM EDT Juvenal Cr MD LAB BLOOD ORDERABLES Final Re sult Performing Organization Address [facility] de Phone Number [facility] [address] [place] [address] * (ABNORMAL) CBC and Differential (10/31/2024 3:00 AM EDT) Only the most recent of4 resultswithin the time period is included. Pathologist [facility] DIFFERENTIAL MANUAL, 2 Not Indicated [facility] White [...] ORDERABLES Final Re sult Performing Organization Address [facility] Co de Phone Number [facility] [address] [place] [address] * (ABNORMAL) ALT (10/31/2024 3:00 AM EDT) Only the most recent of4 resultswithin the time period is included. ALT (SGPT) 9(L) 10 - 49 U/L [facility] 10/31/2024 3:00 AM EDT 11/02/2024 4:31 PM EDT Juvenal Cr MD LAB BLOOD ORDERABLES Final Re sult Performing Organization Address City/[facility]/ZIP Co de Phone Number [facility] [address] [place] [address] * AST (10/31/2024 3:00 AM EDT) Only the most recent of4 resultswithin the time period is included. AST (SGOT) 16 <34 U/L [facility] 10/31/2024 3:00 AM EDT 11/02/2024 4:31 PM EDT Juvenal Cr MD LAB BLOOD ORDERABLES Final Re sult Performing Organization Address [facility] Co de Phone Number [facility] [address] [place] [address] * (ABNORMAL) Protein, total (10/31/2024 3:00 AM EDT) Only the most recent of4 resultswithin the time period is included. Total Protein 6.2(L) 6.4 - 8.9 g/dL [facility] 10/31/2024 3:00 AM EDT 11/02/2024 4:31 PM EDT Juvenal Cr MD LAB BLOOD ORDERABLES Final Re sult Performing Organization Address [facility] Co de Phone Number [facility] [address] [place] [address] * Alkaline phosphatase (10/31/2024 3:00 AM EDT) Only the most recent of4 resultswithin the time period is included. Alkaline Phosphatase 90 46 - 116 U/L [facility] 10/31/2024 3:00 AM EDT 11/02/2024 4:31 PM EDT Juvenal Cr MD LAB BLOOD ORDERABLES Final Re sult Performing Organization Address [facility] de Phone Number [facility] [address] [place] [address] * (ABNORMAL) PTH, Intact (10/31/2024 3:00 AM [...] ORDERABLES Final Re sult Performing Organization Address [facility] Co de Phone Number [facility] [address] [place] [address] * Magnesium (10/31/2024 3:00 AM EDT) Only the most recent of4 resultswithin the time period is included. Magnesium 2.2 1.9 - 2.7 mg/dL [facility] 10/31/2024 3:00 AM EDT 11/02/2024 4:31 PM EDT Juvenal Cr MD LAB BLOOD ORDERABLES Final Re sult Performing Organization Address [facility] de Phone Number [facility] [address] [place] [address] * (ABNORMAL) Lactate dehydrogenase (10/31/2024 3:00 AM EDT) Only the most recent of4 resultswithin the time period is included. LDH 284(H) 120 - 246 U/L [facility] 10/31/2024 3:00 AM EDT 11/02/2024 4:31 PM EDT Juvenal Cr MD LAB BLOOD ORDERABLES Final Re sult Performing Organization Address [facility] de Phone Number [facility] [address] [place] [address] * (ABNORMAL) Glucose, random (10/31/2024 3:00 AM EDT) Only the most recent of4 resultswithin the time period is included. Glucose 131(H) 74 - 109 mg/dL [facility] 10/31/2024 3:00 AM EDT 11/02/2024 4:31 PM EDT us Juvenal rC MD LAB BLOOD ORDERABLES Final Re sult Performing Organization Address [facility] Co de Phone Number [facility] [address] [place] [address] * (ABNORMAL) Ferritin (10/31/2024 3:00 AM EDT) Only the most recent of4 resultswithin the time period is included. Ferritin 1,046(H) 22 - 322 ng/mL [facility] 10/31/2024 3:00 AM EDT 11/02/2024 4:31 PM EDT Juvenal Cr MD LAB BLOOD ORDERABLES Final Re sult Performing Organization Address [facility] de Phone Number [facility] [address] [place] [address] * (ABNORMAL) Creatinine, serum (10/31/2024 3:00 AM EDT) Only the most recent of4 resultswithin the time period is included. Creatinine 5.88(H) 0.70 - 1.30 mg/dL [facility] 10/31/2024 3:00 AM EDT 11/02/2024 4:31 PM EDT Juvenal Cr MD LAB BLOOD ORDERABLES Final Re sult Performing Organization Address [facility] de Phone Number [facility] [address] [place] [address] * Bilirubin, total (10/31/2024 3:00 AM EDT) Only the most recent of4 resultswithin the time period is included. Total Bilirubin 1.1 0.3 - 1.2 mg/dL [facility] 10/31/2024 3:00 AM EDT 11/02/2024 4:31 PM EDT us Juvenal Cr MD LAB BLOOD ORDERABLES Final Re sult Performing Organization Address [facility] de Phone Number [facility] [address] [place] [address] * Lipid panel (10/31/2024 3:00 AM EDT) [...] ORDERABLES Final Re sult Performing Organization Address City/[facility] Co de Phone Number [facility] [address] [place] [address] * Electrolyte panel (10/31/2024 3:00 AM EDT) [...] ORDERABLES Final Re sult Performing Organization Address [facility] Co de Phone Number [facility] [address] [place] [address] * (ABNORMAL) Phosphorus (10/26/2024 3:00 AM EDT) Only the most recent of2 resultswithin the time period is included. Phosphorus, Serum 9.8(H) 2.5 - 5.0 mg/dL [facility] 10/26/2024 3:00 AM EDT 10/27/2024 1:10 PM EDT us Juvenal Cr MD LAB BLOOD ORDERABLES Final Re sult Performing Organization Address [facility]/ZIP Co de Phone Number [facility] [address] [place] [address] * (ABNORMAL) Hemoglobin and hematocrit (10/17/2024 3:00 AM EDT) Only the most recent of2 resultswithin the time period is included. Hgb 10.3(L) 13.7 - 17.5 g/dL [facility] Hematocrit 32.5(L) 40.1 - 51.0 % [facility] Hemoglobin x 3 30.9(L) 41.1 - 52.5 g/dL [facility] 10/17/2024 3:00 AM EDT 10/18/2024 1:27 PM EDT Juvenal Cr MD LAB BLOOD ORDERABLES Final Re sult Performing Organization Address [facility] de Phone Number [facility] [address] [place] [address] * Potassium (09/26/2024 3:00 AM EST) Only the most recent of3 resultswithin the time period is included. Potassium 4.8 3.4 - 5.0 mEq/L [facility] 09/26/2024 3:0 0 AM EST 09/27/2024 1:02 PM EST Juvenal Cr MD LAB BLOOD ORDERABLES Final Re sult Performing Organization Address [facility] de Phone Number [facility] [address] [place] [address] * Collection Date (09/14/2024 3:00 AM EST) Collection Date See Comment [facility] Comment: Patient sample received may exceed specimen stability, based on the collection date electronically provided. ??When reviewing patient results, verify collection information and consider specimen stability before acting on any critical or panic results. 09/14/2024 3:00 AM EST Juvenal Cr MD LAB [id number] SOLICITED RESULTS Final Result Performing Organization Address [facility] de Phone Number [facility] [address] [place] [address] * Hep B Core Ab, Total w/Reflex IgM (09/12/2024 3:00 AM EST) HBc Total Ab, S Negative Negative [facility] 09/12/2024 3:00 AM EST 09/13/2024 3:03 PM EST Juvenal Cr MD LAB [id number] SOLICITED RESULTS Final Result Performing Organization Address [facility] de Phone Number [facility] [address] [place] [address] * (ABNORMAL) Hepatitis B Surface Antibody (09/12/2024 3:00 AM EST) Pathologist [facility] Hep B Surface Antibody <4(A) mIU/mL [facility] Comment: Interpretation: <10: No Immunity >=10: Probable Immunity 09/12/2024 3:00 AM EST 09/13/2024 3:03 PM EST us Juvenal Cr MD LAB BLOOD ORDERABLES Final Re sult Performing Organization Address [facility] de Phone Number [facility] [address] [place] [address] * Confirmation Test HCV (08/31/2024 3:00 AM EST) Pathologist [facility] Hep C Ab Confirmation Not needed [facility] 08/31/2024 3:00 AM EST 09/01/2024 1:35 PM EST us Juvenal Cr MD LAB BLOOD ORDERABLES Final Re sult Performing Organization Address [facility] de Phone Number [facility] [address] [place] [address] * HEPATITIS C ABS W/REFLEX RNA DETECTR (08/31/2024 3:00 AM EST) Pathologist [facility] Hep C Virus Ab Non-Reacti ve Non-Reacti ve [facility] 08/31/2024 3:00 AM EST 09/01/2024 1:41 PM EST us Juvenal Cr MD LAB [id number] SOLICITED RESULTS Final Result Performing Organization Address [facility] de Phone Number [facility] [address] [place] [address] * Aluminum level (08/31/2024 3:00 AM EST) Pathologist [facility] Aluminum 5 1 - 20 ug/L [facility] 08/31/2024 3:00 AM EST 09/01/2024 1:40 PM EST Juvenal Cr MD LAB BLOOD ORDERABLES Final Re sult Performing Organization Address [facility] Co de Phone Number [facility] [address] [place] [address] * Uric Acid (08/31/2024 3:00 AM EST) Uric Acid 5.4 4.4 - 7.6 mg/dL [facility] 08/31/2024 3:00 AM EST 09/01/2024 1:41 PM EST Juvenal Cr MD LAB BLOOD ORDERABLES Final Re sult Performing Organization Address [facility] de Phone Number [facility] [address] [place] [address] * Occult blood x 3, stool (01/22/2022) Occult Blood, Stool #1 Negative Negative [facility] Comment: Performed by [facility]. Occult Blood, Stool #2 Negative Negative [facility] Comment: Performed by [facility]. Collection Time 600 [facility] 01/22/2022 01/27/2022 1:2 3 PM EDT Narrative [facility] - 01/27/2022 Unless otherwise specified, test(s) performed at: [facility], [address] [place], [place] [id number] SALES OFFICE ASSISTANT: Cruzito Knutson M.D. For any questions, please call customer service at FREQUENCY:OTHER Resulting Agency Comment Specimen source: Occult Blood Card Juvenal Cr MD LAB BODY FLUIDS AND STOOLS OR DERABLES Final Result Performing Organization Address [facility] de Phone Number [facility] from Last 3 Months or Most Recently Relevant to Health Maintenance Insurance [place]
--- OUTSIDE RECORDS SUMMARY | 2024-11-03 16:21 | XMS_ITS | Encounter Summary ---
Author Organization [employer] Address [address] [place] [address] [address] [place] [address] Care Team Providers Care Packing Machine Can Feeder Name Role Phone Andie Whitmore Primary Care Provider [phone] Trevor Restrepo MD Unavailable [phone] Juvenal Cr MD Unavailable [phone] Kamini Chavarria MD Unavailable [phone] Wisnton Bhagat DPM Unavailable [phone] Reason for Referral * Imaging (Urgent) - Closed Specialty Diagnoses / Procedures Referred By Contac t Referred To Contact Cardiology Diagnoses ESRD (end stage renal disease) ([facility]) Primary hypertension Shortness of breath Procedures Transthoracic Echo (TTE) Complete Andie Whitmore FNP [address] [place] [address] Phone: tel: fax: [address] Phone: tel: fax: Referral ID Status Reason Start Date Expiration Date V isits Requested Visits Authorized [id number] Closed Perform Procedure 06/29/2023 06/28/2024 1 1 Reason for Visit * Reason Onset Date Comments Call Back Request 06/21/2023 Encounter Details Date Type Department Care Team (Late st Contact Info) Description 06/21/2023 Telephone [facility] MEDICINE [address] [place] [address] Andie Whitmore FNP [address] [place] [address] Call Back Request Social History Tobacco Use [...] order of the heart. Contact pt at [phone] * Telephone Encounter - Iram Pierre RN [...] just once, had an EKG, and the extruder said he was just fine. Patient has [...] having dialysis tomorrow. Please contact pt at [phone] documented in this encounter Plan of Treatment Scheduled Orders Name Type Priority Associated Diagnoses Order Schedule Transthoracic Echo (TTE) Complete Echocardiography Urgent ESRD (end stage renal disease) ([facility]) Primary hypertension Shortness of breath Expected: 06/29/2023 (Approximate), Expires: 06/29/2025 documented as of this encounter Visit Diagnoses Diagnosis ESRD (end stage renal disease) ([facility])- Primary End stage renal disease Primary hypertension Unspecified essential hypertension Shortness of breath documented in this encounter Additional Health Concerns Assessment Noted Time PHQ-9 Depression Total Score: 1 12/23/19 23 3:02 PM EDT documented as of this encounter Care Teams Packing Machine Can Feeder Relationship Specialty Start Date End Date Andie Whitmore FNP [address] [place] [address] PCP - General Family Medicine 11/04/21 Trevor Restrepo MD [address] [place] [address] Urology 07/29/24 Juvenal Cr MD [address] [facility] [address] [place] [address] Nephrology 07/29/24 Kamini Chavarria MD [address] [place] [address] [address] [place] [address] Neurology 07/29/24 Winston Bhagat DPM [address] [facility] [address] [place] [address] Podiatry 07/29/24 documented as of this encounter
--- OUTSIDE RECORDS SUMMARY | 2024-11-03 16:21 | XMS_ITS | Encounter Summary ---
Author Organization [facility] Address [address] [facility] [address] [address] Phone Care Team Providers Care Multi Site Leasing Consultant Name Role Phone Unavailable Primary Care Provider Unavailabl e Reason for Visit * Reason Onset Date Comments Med Refill 07/17/2021 Encounter Details Date Type Department Care Team (Late st Contact Info) Description 07/17/2021 Refill [facility] [address] [place] [address] Radha Palmer [address] [facility] Corey [facility] [address] [place] [phone] Social History Tobacco Use Types Packs/Day Years [...]
--- OUTSIDE RECORDS SUMMARY | 2024-11-03 16:22 | XMS_ITS | Clinical Summary ---
Author Organization [facility] Address [address] [place] [address] Phone Care Team Providers Care Hydraulic Rubbish Compactor Mechanic Name Role Phone Andie Whitmore RN Primary [...] EDT - 10/22/2024 3:50 PM EDT Emergency [facility] Emergency [address] [place] [address] Diallo Ybarra MD Arteriovenous fistula [...] PM EDT Office Visit [facility] [place] [address] [address] Winston Bhagat, DPM [address] [address] Health Maintenance Due Date Last Done Comments [...] around the site, then two 5-0 Prolene [id number]-ermpq stitches applied with bleeding controlled us Diallo Ybarra MD IN CLINIC/BEDSIDE ORDERAB LES Final Result from Last 3 Months Insurance MEDICA[place] - [place] MEDICARE Care Teams Hydraulic Rubbish Compactor Mechanic Relationship Specialty Start Date End Date Andie Whitmore RN [address] [address] PCP - General 12/14/23
--- OUTSIDE RECORDS SUMMARY | 2024-11-03 16:22 | XMS_ITS | Clinical Summary ---
Author Organization [employer] Address [address] [facility] 7[address] [place] [address] Care Team Providers Care Heel Wheeler Name Role Phone WernerAndie manning CORINNE Primary Care Provider [phone] Trevor Restrepo MD Unavailable Juvenal Cr MD [...] Following with Podiatry - Dr. Bhagat at [place] Consult Jun 2024: Debridement of toenails 6-10, with plan to cont topical Jublia. RTC 3 months. Healthcare maintenance 12/12/2023 Overview (12/12/2023): Optometry: CEE 11/10/23 (Dr. Mohr). Noted trace macular edema, follow up in 3 months PSA: hx prostate CA, following with [facility] [place] [place] Urology Heart failure with mildly re duced [...] Exacerbation w/ Hospitalization 08/04 - 08/07/23 at [facility] [place] [place] ESRD on HD: communication with Dr. Cr [...] 02/18/2023 Overview (12/12/2023): Following with Dr. Restrepo ([facility] [place] [place] [facility]) Hx of bilateral stent placement ESRD (end stage renal disease) 11/05/2021 Assessment & Plan (04/27/2023 2:16 PM EDT): -Hemodialysis MWF at [address] [place] [address] Dialysis (first shift) -Access: Left arm basilic vein transposition performed on 08/03/2021. -Mar 2023: fistulagram performed, [facility] [place] [place] Vascular Dr. Blackburn. Has been working well since Assessment & Plan (12/22/2022 8:12 PM EDT): -Hemodialysis MWF at [address] [place] [address] -Access: Left arm basilic vein transposition performed on 08/03/2021. Have started to access fistula at dialysis -Left AVF w/ +thrill/+bruit Prostate cancer metastatic to bone 11/05/2021 Assessment & Plan (07/29/2024 10:41 PM EST): Avenue score ranging from 7 to 9. 10/05/21 cystoscopy with bilateral ureteral stent exchange performed by [facility] [place] [place] U[facility] Continue to follow with [facility] [place] [place] U[facility] - Dr. Restrepo Continue to follow with [facility] [place] [place] Heme/Onc Previously on Bicalutamide 50mg PO daily through Urology, currently taking Abiraterone 01/24/23: cystoscopy with bilateral stent exchange November 2023: Bone scan stable, no progression Target 3 years hormone therapy then reduction to intermittent anti-androgen Apr 2024: DXA normal Assessment & Plan (04/27/2023 2:17 PM EDT): ?? Avenue score ranging from 7 to 9. ?? 10/05/21 cystoscopy with bilateral ureteral stent exchange performed by [facility] [place] [place] Urology ?? Continue to follow with [facility] [place] [place] Urology - Dr. Restrepo ?? Continue to follow with [facility] [place] [place] Heme/Onc ?? Previously on Bicalutamide 50mg PO daily through Urology, currently taking Abiraterone ?? 01/24/23: cystoscopy with bilateral stent exchange Assessment & Plan (12/22/2022 8:13 PM EDT): ?? Avenue score ranging from 7 to 9. ?? 10/05/21 cystoscopy with bilateral ureteral stent exchange performed by [facility] [place] [place] [facility] ?? Continue to follow with [facility] [place] [place] Urology - Dr. Restrepo ?? Continue to follow with [facility] [place] [place] Heme/Onc ?? Previously on Bicalutamide 50mg PO [...] Encounters Date Type Department Care Team Description 11/03/2024 Orders Only GENERIC EXTERNAL DATA DEPARTMENT Provider, Generic External Data 10/12/2024 Population Health Risk Score [facility] (C3) Department [address] [place] [phone] Provider, Population Health Generic 10/11/2024 Orders Only GENERIC EXTERNAL DATA DEPARTMENT Provider, Generic External Data 09/27/2024 Patient Outreach [facility] [address] [place] [address] Andie Whitmore FNP Transition Of Care (Tcm) ([facility]) 09/19/2024 Patient Outreach [facility] [address] [place] [address] Andie Whitmore FNP Transition Of Care (Tcm) ([facility] unscheduled) 09/08/2024 Orders Only GENERIC EXTERNAL [...] 23 SDOH Screening 12/23/2023 12/22/2022 COVID-19 Vaccine ( [...] Procedure Name Priority Date/Time Associated Diagnosis Comments CTA CHEST PE PROTOCAL Routine 11/03/2024 1:35 PM EDT RESPIRATORY VIRAL PANEL PCR Routine 11/03/2024 11:57 AM EDT HIGH SENSITIVITY TROPONIN I Routine 11/03/2024 11:57 AM EDT XR CHEST 1 VIEW Routine 11/03/2024 11:53 AM EDT VENOUS BLOOD GAS Routine 11/03/2024 10:1 0 AM EDT HIGH SENSITIVITY TROPONIN I Routine 11/03/2024 10:02 AM EDT B TYPE NATRIURETIC PEPTIDE (BNP) Routine 11/03/2024 10:02 AM EDT LIPASE Routine 11/03/2024 10:02 AM EDT MAGNESIUM Routine 11/03/2024 10:02 AM EDT BASIC METABOLIC PANEL Routine 11/03/2024 10:02 AM EDT HEPATIC FUNCTION PANEL Routine 11/03/2024 10:02 AM EDT CBC WITH AUTO DIFFERENTIAL Routine 11/03/2024 10:02 AM EDT SARS COV2/INFLUENZA A/B AND RSV RNA QL NAAT Routine 11/03/2024 10:02 AM EDT LACTIC ACID Routine 11/03/2024 10:01 AM EDT TESTOSTERONE, TOTAL, MALES (ADULT), IA Routine 10/11/2024 [...] Recently Relevant to Health Maintenance Results * CTA Chest PE Protocal (11/03/2024 1:35 PM EDT) Anatomical Region Laterality Modality Body, Chest Computed Tomogra phy 11/03/2024 1:35 PM EDT Narrative 11/03/2024 1:36 PM EDT ? [facility] ?[address] ?[place] [address] ? CT Scan Report ? Signed ? Patient: Maribeth,Darwin ?MR#: [id number] ? : 1960 ?Acct:[id number] ? Age/Sex: 64 / M ?ADM Date: 04/05/25 ? Loc: HO.ED ? Attending Dr: ? Ordering Physician: Senia Langston MD ?? Date of Service: 11/03/24 ?? Procedure(s): CT angio chest PE protocol ?? Accession Number(s): [id number] ? cc: Senia Langston MD; Andie Whitmore FISH PROTECTOR ? Report Number: ?? [id number]: Total DLP = ??284.00 mGy-cm ? CLINICAL HISTORY: sob ? CT ANGIOGRAPHY CHEST WITH CONTRAST. 3D POSTPROCESSING. ? Comparison: CT/SR - CT CHEST WO IV CON - 09/08/24 11:21 EST ? Findings: ?? The heart is enlarged. RV/LV ratio is normal. ?? Pericardial effusion measures 19 mm in thickness compared with 1 cm ?? previously. ?? Aortic and coronary arterial calcifications. ?? No thoracic aortic aneurysm or dissection. ?? No pulmonary artery filling defects. ?? Increased number of multiple borderline enlarged hilar and mediastinal ?? lymph nodes. ?? The thyroid gland is not enlarged. ? There is a moderate right pleural effusion which is larger compared to ?? prior. ?? There is a small left pleural effusion which is larger compared to prior. ?? There are confluent opacities in the bilateral lower lobes. ?? There is patchy opacity in the right middle lobe. ?? There are hazy bilateral ground-glass opacities. ?? There are right upper and left lower lobe nodular ground-glass opacities. ?? There is bilateral septal thickening. ?? No pneumothorax. ? Diffuse body wall edema. ?? Multiple old right rib fractures. ?? Redemonstration of sclerotic lesions in T6 and T9. ? IMPRESSION: ?? 1. No pulmonary embolus. ?? 2. Moderate right and small left pleural effusions with adjacent ?? compressive atelectasis and/or consolidations. ?? 3. Small pericardial effusion. ?? 4. Hazy bilateral ground-glass opacities, multiple right upper and left ?? lower lobe nodular ground-glass opacities and bilateral septal thickening ?? secondary to inflammation/infection or edema. ?? 5. Mild hilar and mediastinal adenopathy is nonspecific and may be ?? reactive in etiology. ?? 6. Probable anasarca. ?? 7. Stable sclerotic lesions in T6 and T9. Metastatic disease is included ?? in the differential. ?? 8. Right middle lobe atelectasis and/or infiltrate. ? This document has been electronically signed by: Goldie Ybarra, DO on ?? 11/03/2024 13:35:10 ? Dictated By: ?Goldie Ybarra MD ? Signed By: ?<Electronically signed by Goldie Ybarra MD in OV> ?11/03/246 ? DD/ 1335 ? TD/TT: 11/03/24 1335 ? Hoop Punch Operator Helper: ? Procedure Note Donotuseinterpreter, Image - 11/03/[address] [address] [address] Scan Report Signed Patient: Emilia Stahl#: [id number] : 1Acct:[id number] Age/Sex: 64 / MADM Date: 11/03/24 Loc: HO.ED Attending Dr: Ordering Physician: Senia Langston MD Date of Service: 11/03/24 Procedure(s): CT angio chest PE protocol Accession Number(s): [id number] cc: Senia Langston MD; Andie Whitmore FISH PROTECTOR Report Number: [id number]: Total DLP = 284.00 mGy-cm CLINICAL HISTORY: sob CT ANGIOGRAPHY CHEST WITH CONTRAST. 3D POSTPROCESSING. Comparison: CT/SR - CT CHEST WO IV CON - 09/08/24 11:21 EST Findings: The heart is enlarged. RV/LV ratio is normal. Pericardial effusion measures 19 mm in thickness compared with 1 cm previously. Aortic and coronary arterial calcifications. No thoracic aortic aneurysm or dissection. No pulmonary artery filling defects. Increased number of multiple borderline enlarged hilar and mediastinal lymph nodes. The thyroid gland is not enlarged. There is a moderate right pleural effusion which is larger compared to prior. There is a small left pleural effusion which is larger compared to prior. There are confluent opacities in the bilateral lower lobes. There is patchy opacity in the right middle lobe. There are hazy bilateral ground-glass opacities. There are right upper and left lower lobe nodular ground-glass opacities. There is bilateral septal thickening. No pneumothorax. Diffuse body wall edema. Multiple old right rib fractures. Redemonstration of sclerotic lesions in T6 and T9. IMPRESSION: 1. No pulmonary embolus. 2. Moderate right and small left pleural effusions with adjacent compressive atelectasis and/or consolidations. 3. Small pericardial effusion. 4. Hazy bilateral ground-glass opacities, multiple right upper and left lower lobe nodular ground-glass opacities and bilateral septal thickening secondary to inflammation/infection or edema. 5. Mild hilar and mediastinal adenopathy is nonspecific and may be reactive in etiology. 6. Probable anasarca. 7. Stable sclerotic lesions in T6 and T9. Metastatic disease is included in the differential. 8. Right middle lobe atelectasis and/or infiltrate. This document has been electronically signed by: Goldie Ybarra DO on 11/03/2024 13:35:10 Dictated By: Goldie Ybarra MD Signed By: <Electronically signed by Goldie Ybarra MD in OV> 11/03/241335 DD/ 34 TD/TT: 11/03/241334 Hoop Punch Operator Helper: [facility] External Provider IMG CT PROCEDURES Edited Result - Final * (ABNORMAL) High Sensitivity Troponin I (11/03/2024 11:57 AM EDT) Only the most recent of2 resultswithin the time period is included. [facility] TROPONIN I HIGH SENSITIVITY 73.9(H) <3.5 - 35.0 ng/L [facility] Comment:The [place] high sens itivity Troponin-I results should beused in conjunction with other diagnostic information suchas ECG, clinical observations and information, and patientsymptoms to aid in the diagnosis of VA. 11/03/2024 11:5 7 AM EDT 11/03/2024 12:04 PM EDT Generic External Data Provider LAB BLOOD ORDERAB LES Final Result [facility] [address] [place] [phone] * Respiratory Viral Panel PCR (11/03/2024 11:57 AM EDT) Adenovirus PCR Not Detected Not Detect. [facility] Bordetella pertussis PCR Not Detected Not Detect. [facility] Comment:Interpret results wi th caution. If B. pertussis isspecifically suspected, additional testing using analternate method is recommended. Bordetella parapertussis PCR Not Detected Not Detect. [facility] Chlamydia pneumoniae PCR Not Detected Not Detect. [facility] Coronavirus 229E PCR Not Detected Not Detect. [facility] Coronavirus HKU1 PCR Not Detected Not Detect. [facility] Coronavirus NL63 PCR Not Detected Not Detect. [facility] Coronavirus OC43 PCR Not Detected Not Detect. [facility] SARS-CoV-2 PCR Not Detected Not Detect. [facility] Comment:SARS-CoV-2 not detec montrell by real-time RT-PCR.Note: If clinical suspicion for Sars-CoV-2 is high, continueto maintain precautions and consider repeat testing.Test results should be interpreted in the context ofclinical findings and other laboratory data.Rare polymorphisms exist that could lead to false-negativeor false-positive results. If results do not match theclinical findings, additional testing should be considered.Results reported to [facility].This test has been authorized by the FDA under the EmergencyUse Authorization (EUA) for use by authorized laboratories. Influenza A PCR Not Detected Not Detect. [facility] Influenza A Subtype H1 Not Detected Not Detect. [facility] Influenza A H1-2009 PCR Not Detected Not Detect. [facility] Influenza A Subtype H3 Not Detected Not Detect. [facility] Influenza B PCR Not Detected Not Detect. [facility] Human metapneumovirus PCR Not Detected Not Detect. [facility] Rhino/Enterovirus PCR Not Detected Not Detect. [facility] Mycoplasma pneumoniae PCR Not Detected Not Detect. [facility] Parainfluenza 1 PCR Not Detected Not Detect. [facility] Parainfluenza 2 PCR Not Detected Not Detect. [facility] Parainfluenza 3 PCR Not Detected Not Detect. [facility] Parainfluenza 4 PCR Not Detected Not Detect. [facility] RSV PCR Not Detected Not Detect. [facility] Resp Panel NA Note See Note H [facility] Comment:All results must be correlated with clinical findings.Negative results should not be used as the sole basis fordiagnosis, treatment, or other management decisions.A negative result does not exclude the possibility of viralor bacterial infection. Negative results may occur from thepresence of sequence variants in the region targeted by theassay, the presence of inhibitors, an infection caused by anorganism not detected by the panel, or lower respiratorytract infections that are not detected by a nasopharyngealswab specimen. Test results may also be affected byconcurrent antiviral/antibacterial therapy or levels oforganism in the specimen that are below the limit ofdetection for this test.This assay is performed by Multiplex[employer] PCR, utilizing [employer] Film Array. 11/03/2024 11:5 7 AM EDT 11/03/2024 12:01 PM EDT us Generic External Data Provider LAB BLOOD ORDERAB LES Final Result [facility] [address] [place] [address] [phone] * XR Chest 1 View (11/03/2024 11:53 AM EDT) Only the most recent of2 resultswithin the time period is included. Anatomical Region Laterality Modality Chest Radiographic Debra ging 11/03/2024 11:5 3 AM EDT Narrative 11/03/2024 11:55 AM EDT ? [facility] ?[address] ?[place] [address] ?XRay Report ? Signed ? Patient: Maribeth,Darwin ?MR#: [id number] ? : 1960 ?Acct:[id number] ? Age/Sex: 64 / M ?ADM Date: 04/05/25 ? Loc: HO.ED ? Attending Dr: ? Ordering Physician: Brianna Mckeon ?? Date of Service: 11/03/24 ?? Procedure(s): XR chest 1V ?? Accession Number(s): [id number] ? cc: Brianna Mckeon; Andie Whitmore FISH PROTECTOR ? CLINICAL HISTORY: SOB ? 1 view chest x-ray ? Comparison: CR - XR CHEST 1V - 09/09/24 08:36 EST ? Findings: ?? Multiple bilateral pulmonary opacities. ?? Small right pleural effusion. ?? No pneumothorax. ?? The cardiac silhouette is enlarged. ?? Irregular sclerosis in the proximal left humerus is concerning for ?? metastasis. ? IMPRESSION: ?? 1. Multifocal bilateral pulmonary opacities secondary to infection and/or ?? edema. ?? 2. Small right pleural effusion. ?? 3. Suspicious lesion in the proximal left humerus. ? This document has been electronically signed by: Goldie Ybarra, DO on ?? 11/03/2024 11:53:26 ? Dictated By: ?Goldie Ybarra MD ? Signed By: ?<Electronically signed by Goldie Ybarra MD in OV> ?11/03/24 1154 ? DD/ 1153 ? TD/TT: 11/03/24 1153 ? Hoop Punch Operator Helper: ? Procedure Note Rosemarie Mayorga - 11/03/[address] [address] XRay Report Signed Patient: Darwin StahlMR#: [id number] : 1960cct:[id number] Age/Sex: 64 / MADM Date: 11/03/24 Loc: HO.ED Attending Dr: Ordering Physician: Brianna Mckeon Date of Service: 11/03/24 Procedure(s): XR chest 1V Accession Number(s): [id number] cc: Brianna Mckeon; Andie Whitmore CLINICAL HISTORY: SOB 1 view chest x-ray Comparison: CR - XR CHEST 1V - 09/09/24 08:36 EST Findings: Multiple bilateral pulmonary opacities. Small right pleural effusion. No pneumothorax. The cardiac silhouette is enlarged. Irregular sclerosis in the proximal left humerus is concerning for metastasis. IMPRESSION: 1. Multifocal bilateral pulmonary opacities secondary to infection and/or edema. 2. Small right pleural effusion. 3. Suspicious lesion in the proximal left humerus. This document has been electronically signed by: Goldie Ybarra DO on 11/03/2024 11:53:26 Dictated By: Goldie Ybarra MD Signed By: <Electronically signed by Goldie Ybarra MD in OV> 11/03/24 1154 DD/ 1153 TD/TT: 11/03/24 1153 Hoop Punch Operator Helper: [facility] External Provider IMG XR PROCEDURES Edited Result - Final * (ABNORMAL) VENOUS BLOOD GAS (11/03/2024 10:10 AM EDT) VBG pH 7.46(H) 7.32 - 7.43 [facility] Comment:METER #: [id number] additional_comment: Cb ana VBG PCO2 50 mmHg [facility] Comment:METER #: [id number] additional_comment: Cb ana VBG PO2 38 mmHg [facility] Comment:METER #: [id number] additional_comment: Cb ana VBG Base Excess 10.6 mmol/L [facility] Comment:METER #: [id number] additional_comment: Cb ana VBG HCO3 35(H) 22 - 26 mmol/L [facility] Comment:METER #: [id number] additional_comment: Cb ana O2 Sat, Rober 58.0 % [facility] Comment:METER #: [id number] additional_comment: Cb ana 11/03/2024 10:1 0 AM EDT 11/03/2024 10:13 AM EDT Generic External Data Provider LAB BLOOD ORDERAB LES Final Result [facility] [address] [place] [address] [phone] * SARS-CoV-2 RNA, Influenza A/B, and RSV RNA, Ql NAAT (11/03/2024 10:02 AM EDT) Only the most recent of2 resultswithin the time period is included. Influenza A PCR NEGATIVE Negative [facility] Influenza B PCR NEGATIVE Negative [facility] Resp Syncy Virus RNA Qual PCR NEGATIVE Negative [facility] SARS COV2 PCR NEGATIVE Negative [facility] Comment:All test results mus t be [...] use by authorized laboratories.Testing performed on the [employer] GeneXpert utilizingreal-time RT-PCR.All SARS CoV2 and positive influenza A/B results arereported to [facility]. 11/03/2024 10:0 2 AM EDT 11/03/2024 10:09 AM EDT Generic External Data Provider LAB MICROBIOLOGY - GENERAL ORDERABLES Final Result [facility] [address] [place] [phone] * (ABNORMAL) CBC auto differential (11/03/2024 10:02 AM EDT) Only the most recent of2 resultswithin the time period is included. White Blood Count 6.8 4.8 - 10.8 X10*3/uL [facility] Red Blood Count 3.48(L) 4.60 - 5.80 X10*6/uL [facility] Hemoglobin 10.1(L) 14.0 - 18.0 g/dl [facility] Hematocrit 30.8(L) 42.0 - 52.0 % [facility] Mean Corpuscular Volume 88.5 80.0 - 98.0 fL [facility] Mean Corpuscular Hemoglobin 29.0 27.0 - 33.0 pg [facility] Mean Corpuscular HGB Conc 32.8 31.0 - 36.0 g/dl [facility] Red Cell Distribution Width 18.2(H) 11.0 - 16.0 % [facility] Platelet Count 193 160 - 400 X10*3/uL [facility] Mean Platelet Volume 10.7 9.4 - 12.4 fL [facility] Neutrophils Percent Auto 74.1(H) 45 - 73 % [facility] Imm Gran Pct Auto 0.3 0.0 - 0.4 % [facility] Lymphocytes Percent Auto 14.7(L) 20 - 40 % [facility] Monocytes Percent Auto 6.8 2 - 11 % [facility] Eosinophils Percent Auto 3.4 0 - 4 % [facility] Basophils Percent Auto 0.7 0 - 2 % [facility] NRBC Pct Auto 0.0 0.0 - 0.2 /100WBC [facility] Neutrophils Absolute Auto 5.0 2.0 - 8.3 x10*3/uL [facility] Imm Gran Abs Auto 0.02 0.00 - 0.03 X10*3/uL [facility] Lymphocytes Absolute Auto 1.0(L) 1.2 - 4.9 X10*3/uL [facility] Monocytes Absolute Auto 0.5 0.1 - 1.2 X10*3/uL [facility] Eosinophils Absolute Auto 0.2 0.0 - 0.4 X10*3/uL [facility] Basophils Absolute Auto 0.1 0.0 - 0.2 X10*3/uL [facility] NRBC Abs Auto 0.000 0.0 - 0.012 X10*3/uL [facility] 11/03/2024 10:0 2 AM EDT 11/03/2024 10:09 AM EDT us Generic External Data Provider LAB BLOOD ORDERAB LES Final Result [facility] [address] [place] [phone] * (ABNORMAL) B Type Natriuretic Peptide (BNP) (11/03/2024 10:02 AM EDT) Only the most recent of2 resultswithin the time period is included. B Type Natriuretic Peptide 4,986(H) <100 pg/mL [facility] 11/03/2024 10:0 2 AM EDT 11/03/2024 10:09 AM EDT us Generic External Data Provider LAB BLOOD ORDERAB LES Final Result Performing Organization Address [facility]/ZIP Co de Phone Number [facility] [address] [place] [phone] * Magnesium (11/03/2024 10:02 AM EDT) Only the most recent of2 resultswithin the time period is included. Magnesium 2.1 1.6 - 2.6 mg/dL [facility] 11/03/2024 10:0 2 AM EDT 11/03/2024 10:09 AM EDT us Generic External Data Provider LAB BLOOD ORDERAB LES Final Result Performing Organization Address [facility] Co de Phone Number [facility] [address] [place] [phone] * Lipase (11/03/2024 10:02 AM EDT) Lipase 22 8 - 78 U/L [facility] 11/03/2024 10:0 2 AM EDT 11/03/2024 10:09 AM EDT Generic External Data Provider LAB BLOOD ORDERAB LES Final Result Performing Organization Address [facility] de Phone Number [facility] [address] [place] [phone] * (ABNORMAL) Hepatic Function Panel (11/03/2024 10:02 AM EDT) Bilirubin, Total 1.4(H) 0.0 - 1.0 mg/dL [facility] Bilirubin, Direct 0.5 0.0 - 0.5 mg/dL [facility] Aspartate Amino Transferase 27 5 - 37 U/L [facility] Alanine Aminotransferase 12 0 - 40 U/L [facility] Total Protein 7.1 6.5 - 8.0 g/dL [facility] Albumin Level 4.5 3.5 - 5.0 g/dL [facility] Alkaline Phosphatase 113 39 - 117 U/L [facility] 11/03/2024 10:0 2 AM EDT 11/03/2024 10:09 AM EDT us Generic External Data Provider LAB BLOOD ORDERAB LES Final Result [facility] [address] [place] [phone] * (ABNORMAL) Basic Metabolic Panel (11/03/2024 10:02 AM EDT) Sodium 136 135 - 145 mmol/L [facility] Potassium 3.8 3.3 - 5.1 mmol/L [facility] Chloride 94(L) 96 - 108 mmol/L [facility] Carbon Dioxide 29 22 - 29 mmol/L [facility] Anion Gap 17 12 - 20 [facility] Urea Nitrogen (BUN) 40(H) 9 - 16 mg/dL [facility] Creatinine, Serum 4.35(HH) 0.5 - 1.4 mg/dL [facility] Comment:Critical value for t est(s): DELMI Results called to and readback by:BEATRICE Person calling:LHEUREM Date:11/03/24Time:1030 Creatinine Clr Calc Pharmacy 13.9 [facility] Comment:eGFR (calculated fro m the MDRD study equation) and eCrCl(calculated from the Cockcroft-Gault equation) are based ondifferent parameters and may not yield comparable results.If eCrCl result is absurd, please check patient'sheight/weight. Estimated Glomerular Filt Rate 14 [facility] Comment:Chronic Kidney Disea se: Estimated GFR < 60 mL/min/[id number] Kidney Disease: Estimated GFR < 15 mL/min/1.73m2 Glucose 88 60 - 115 mg/dL [facility] Calcium 10.3(H) 8.4 - 10.2 mg/dL [facility] 11/03/2024 10:0 2 AM EDT 11/03/2024 10:09 AM EDT Generic External Data Provider LAB BLOOD ORDERAB LES Final Result Performing Organization Address City/[facility]/ZIP Co de Phone Number [facility] [address] [place] [phone] * Lactic Acid (11/03/2024 10:01 AM EDT) Only the most recent of2 resultswithin the time period is included. Lactic Acid 0.8 0.5 - 2.0 mmol/L [facility] 11/03/2024 10:0 1 AM EDT 11/03/2024 10:09 AM EDT Generic External Data Provider LAB BLOOD ORDERAB LES Final Result Performing Organization Address [facility] Co de Phone Number [facility] [address] [place] [phone] * (ABNORMAL) Testosterone, Total, males (Adult), [place] (10/11/2024 10:35 AM EDT) Testosterone, Total 10(A) 250 - 1100 ng/dL [facility] Comment:Men with clinically significant hypogonadalsymptoms and testosterone values repeatedly inthe range of the 200-300 ng/dL or less, maybenefit from testosterone treatment afteradequate risk and benefits counseling.For additional information, please refer tohttp://education.Rexly.ZeaVision/faq/[email or web address](This link is being provided for informational/educational purposes only.)This test was developed and its analytical performancecharacteristics have been determined by [employer] [place], [place]. It hasnot been cleared or approved by the U.S. Food and DrugAdministration. This assay has been validated pursuantto the CLIA regulations and is used for clinicalpurposes.THIS TEST WAS PERFORMED AT:[employer] [place] [address]QFOKKVAHELGA HAYES MD,PHD 10/11/2024 10:3 5 AM EDT 10/11/2024 1:28 PM EDT Generic External Data Provider LAB BLOOD ORDERAB LES Final Result Performing Organization Address [facility] Co de Phone Number [facility] [address] [place] [phone] * PSA,Total (10/11/2024 10:35 AM EDT) Prostate Specific Antigen 0.14 <0.05 - 4.0 ng/mL [facility] Comment:PSA methodology: Wild Emery i ChemiluminescentMicroparticle Immunoassay (CMIA) 10/11/2024 10:3 5 AM EDT 10/11/2024 1:28 PM EDT Generic External Data Provider LAB BLOOD ORDERAB LES Final Result Performing Organization Address [facility] Co de Phone Number [facility] [address] [place] [phone] * NM Lung Perfusion (09/09/2024 8:33 AM EST) Anatomical Region Laterality Modality Body Nuclear Medicine 09/09/2024 8:33 AM EST Narrative 09/09/2024 8:35 AM EST ? [facility] ?[address] ?[place] [address] ?Nuclear Medicine Report ? Signed ? Patient: Maribeth,Darwin ?MR#: [id number] ? : 1960 ?Acct:[id number] ? Age/Sex: 64 / M ?ADM Date: 09/08/24 ? Loc: HO.IMC ?467-1 ? Attending Dr: Jer Bermudez MD ? Ordering Physician: Marvin Hollins ?? Date of Service: 09/08/24 ?? Procedure(s): NM pul perfusion ?? Accession Number(s): [id number] ? cc: Marvin Hollins; Andie Whitmore ? CLINICAL HISTORY: hypoxia, hx of malignancy, sob r o PE ? NM Lung Perfusion ? Comparison: None ? Findings: ?? 4.0 mCi technetium 99m MAA used. ? No perfusion defects. ? IMPRESSION: ?? No perfusion defects. ? This document has been electronically signed by: Solange Msoqueda MD on ?? 09/09/2024 08:33:03 ? Dictated By: ?Solange Mosqueda MD ? Signed By: ?<Electronically signed by Solange Mosqueda MD in OV> ?09/09/24 0834 ? DD/ 2 ? TD/TT: 09/09/24832 ? Hoop Punch Operator Helper: ? Procedure Note Rosemarie Mayorga - 09/09/[address] [address] Nuclear Medicine Report Signed Patient: Emilia Stahl#: [id number] : 1960cct:[id number] Age/Sex: 64 / MADM Date: 09/08/24 Loc: HO.IMC 467-[address]: Jer Bermudez MD Ordering Physician: Marvin Hollins Date of Service: 09/08/24 Procedure(s): NM pul perfusion Accession Number(s): [id number] cc: Marvin Hollins; Andie Whitmore CLINICAL HISTORY: [...] in OV> 09/09/24833 DD/ 2 TD/TT: 09/09/24832 Hoop Punch Operator Helper: us [facility] External Provider IMG NM PROCEDURES Edited Result - Final * CT Chest w/o Contrast (09/08/2024 1:00 PM EST) Anatomical Region Laterality Modality Body, Chest Computed Tomogra phy 09/08/2024 1:00 PM EST Narrative 09/08/2024 1:02 PM EST ? [facility] ?[address] ?[place], [place] [address] ? [address] Scan Report ? Signed ? Patient: Darwin Stahl ?MR#: [id number] ? : 1960 ?Acct:[id number] ? Age/Sex: 64 / M ?ADM Date: 09/08/24 ? Loc: HO.ED ? Attending Dr: ? Ordering Physician: Marvin Hollins ?? Date of Service: 09/08/24 ?? Procedure(s): CT chest wo IV con ?? Accession Number(s): [id number] ? cc: Marvin Hollins; Andie Whitmore FISH PROTECTOR ? Report Number: ?? [id number]: Total DLP = ??272.00 mGy-cm ? CLINICAL HISTORY: sob cough hx malignancy ? CT chest without contrast ? Comparison: CR/TN/SR - XR CHEST V - 08/04/23 15:55 EST ?? CR/SR - XR CHEST 2V - 07/19/23 13:04 EST ?? CT/TN - CT CHEST WO CON - 04/02/21 [...] DD/ 1300 ? TD/TT: 09/08/24 1300 ? Hoop Punch Operator Helper: ? Procedure Note Donotdoeinterpreter, Image - 09/08/[address] [place] [address] [address] Scan Report Signed Patient: Darwin StahlMR#: [id number] : 1960cct:[id number] Age/Sex: 64 / MADM Date: 09/08/24 Loc: HO.ED Attending Dr: Ordering Physician: Marvin Hollins Date of Service: 09/08/24 Procedure(s): CT chest wo IV con Accession Number(s): [id number] cc: Marvin Hollins; Andie Whitmore [facility] Report Number: [id number]: Total DLP = 272.00 mGy-cm CLINICAL HISTORY: sob cough hx malignancy CT chest without contrast Comparison: CR/TN/SR - XR CHEST 1V - 08/04/23 15:55 EST CR/SR - XR CHEST 2V - 07/19/23 13:[address]/TN - CT CHEST WO CON - 04/02/21 [...] 09/08/24 1302 DD/ 1300 TD/TT: 09/08/24 1300 Hoop Punch Operator Helper: [facility] External Provider IMG CT PROCEDURES Edited Result - Final * Red blood count (09/08/2024 11:00 AM EST) Red Blood Cells: [id number] AP RC TRANSFUSED 09/08/24 1204 [facility] 09/08/2024 11:0 0 AM EST 09/08/2024 11:04 AM EST Generic External Data Provider LAB BLOOD ORDERAB LES Final Result Performing Organization Address City/State/[facility] Co de Phone Number [facility] [address] [place] [phone] * Type and screen (09/08/2024 11:00 AM EST) Blood Type AP [facility] Antibody Screen NEGATIVE [facility] 09/08/2024 11:0 0 AM EST 09/08/2024 11:04 AM EST Narrative [facility] - 09/08/2024 3:17 PM EST [...] ST ORDERABLES Final Result Performing Organization Address [facility] Co de Phone Number [facility] [address] [place] [phone] * (ABNORMAL) Iron And Total Iron Binding Capacity (09/08/2024 10:25 AM EST) Iron 39(L) 45 - 160 mcg/dL [facility] Total Iron Binding Capacity 156(L) 228 - 428 mcg/dL [facility] Percent Iron Saturation 25 15 - 50 % [facility] Unsaturated Iron Binding 117 ug/dL [facility] 09/08/2024 10:2 5 AM EST 09/08/2024 10:37 AM EST Generic External Data Provider LAB BLOOD ORDERAB LES Final Result Performing Organization Address [facility] de Phone Number [facility] [address] [place] [address] [phone] * (ABNORMAL) Comprehensive Metabolic Panel (09/08/2024 10:25 AM EST) Sodium 135 135 - 145 mmol/L [facility] Potassium 3.1(L) 3.3 - 5.1 mmol/L [facility] Chloride 96 96 - 108 mmol/L [facility] Carbon Dioxide 26 22 - 29 mmol/L [facility] Anion Gap 16 12 - 20 [facility] Urea Nitrogen (BUN) 17(H) 9 - 16 mg/dL [facility] Creatinine, Serum 3.90(H) 0.5 - 1.4 mg/dL [facility] Creatinine Clr Calc Pharmacy 15.6 [facility] Comment:eGFR (calculated fro m the MDRD study equation) and eCrCl(calculated from the Cockcroft-Gault equation) are based ondifferent parameters and may not yield comparable results.If eCrCl result is absurd, please check patient'sheight/weight. Estimated Glomerular Filt Rate 16 [facility] Comment:Chronic Kidney Disea se: Estimated GFR < 60 mL/min/1.55s8Vqcsvk Kidney Disease: Estimated GFR < 15 mL/min/1.73m2 Glucose 93 60 - 115 mg/dL [facility] Calcium 9.5 8.4 - 10.2 mg/dL [facility] Bilirubin, Total 0.8 0.0 - 1.0 mg/dL [facility] Aspartate Amino Transferase 26 5 - 37 U/L [facility] Alanine Aminotransferase 7 0 - 40 U/L [facility] Total Protein 6.5 6.5 - 8.0 g/dL [facility] Albumin Level 3.7 3.5 - 5.0 g/dL [facility] Alkaline Phosphatase 113 39 - 117 U/L [facility] 09/08/2024 10:2 5 AM EST 09/08/2024 10:37 AM EST us Generic External Data Provider LAB BLOOD ORDERAB LES Final Result [facility] [address] [place] [phone] * Lipid Panel, Standard (07/26/2024 11:25 AM EST) Triglycerides 54 <150 mg/dL [facility] Comment:Desirable Triglyceri de: less than 150 mg/dLBorderline High Triglyceride 150-199 mg/dLHigh Triglyceride: 200-499 mg/dLVery High Triglyceride: greater than or equal to 5OO mg/dL Cholesterol 142 <200 mg/dL [facility] Comment:Desirable Cholestero l: less than 200 mg/dLBorderline High Cholesterol: 200-239 mg/dLHigh Cholesterol: greater than 239 mg/dL LDL Cholesterol Calculated 83 <100 mg/dL [facility] Comment:Desirable LDL: less than 100 mg/dLNear Optimal/Above Optimal LDL: 110- 129 mg/dLBorderline High LDL: 130-159 mg/dLHigh LDL: 160-189 mg/dLVery High LDL: greater than or equal to 190 mg/dL HDL Cholesterol 49 >40 mg/dL [facility] Comment:Desirable HDL: great er than 40 mg/dL Note: This HDL assay may give artificially low results in patients with liver disease. Blood Venous blood specimen / Unknown 07/26/2024 11:25 AM EST 07/26/2024 1:05 PM EST us Andei Whitmore FISH PROTECTOR LAB BLOOD ORDERABLES Final Res ult [facility] [address] [place] [phone] from Last 3 Months or Most Recently Relevant to Health Maintenance Insurance MEDICARE [address] [place] [address] [place] [id number] [facility] Care Teams Heel Wheeler Relationship Specialty Start Date End Date Andie Whitmore FNP [address] [place] [address] PCP - General Family Medicine 11/04/21 Trevor Restrepo MD [address] [place] [address] Urology 07/29/24 Juvenal Cr MD [address] [facility] [address] [place] [phone] Nephrology 07/29/24 Kamini Chavarria MD [address] [place] [address] [address] [place] [address] Neurology 07/29/24 Winston Bhagat DPM [address] [facility] [facility] [address] [place] [address] Podiatry 07/29/24
--- OUTSIDE RECORDS SUMMARY | 2024-11-03 16:22 | XMS_ITS | Encounter Summary ---
Author Organization [facility] Address [address] [phone] Phone Care Team Providers Care Web Analyst Name Role Phone Unavailable Primary Care Provider Unavailabl e Encounter Details Date Type Department Care Team ([facility] st Contact Info) Description 10/31/2024 Treatment [facility]. [address] [phone] Clinton Ortega MD [address] [phone] End stage renal disease; Dependence [...] care for end stage renal disease. Attending Refuse Driver: CLINTON ORTEGA Dialysis Location: [facility] Schedule: Shift: 1 OVERVIEW Patient is [...]
--- OUTSIDE RECORDS SUMMARY | 2024-11-03 16:22 | XMS_ITS | Encounter Summary ---
Author Organization [employer] Address [address] [facility] [address] [place] [address] Care Team Providers Care Specialist Physician Name Role Phone Andie Whitmore Primary Care Provider [phone] Trevor Restrepo MD Unavailable [phone] Juvenal Cr MD Unavailable [phone] Kamini Chavarria MD Unavailable Winston Bhagat DPM Unavailable [phone] Reason for Visit * Reason Onset Date Comments Medication Question 02/29/2024 Encounter Details Date Type Department Care Team (Late st Contact Info) Description 02/29/2024 Telephone [facility] [address] [place] [address] Andie Whitmore FNP [address] [place] [address] Medication Question Social History Tobacco Use Types [...] was discussed in sick appt on 02/27 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 medication pending documented in this encounter Plan of Treatment Not on file documented as of this encounter Visit Diagnoses Not on filedocumented in this encounter Additional Health Concerns Assessment Noted Time PHQ-9 Depression Total Score: 1 12/23/19 23 3:02 PM EDT documented as of this encounter Care Teams Specialist Physician Relationship Specialty Start Date End Date Andie Whitmore FNP [address] [place] [address] PCP - General Family Medicine 11/04/21 Trevor Restrepo MD [address] [place] [address] Urology 07/29/24 Juvenal Cr MD [address] [facility] [address] [place] [phone] Nephrology 07/29/24 Kamini Chavarria MD [address] [facility] [address] [place] [address] Neurology 07/29/24 Winston Bhagat DPM [address] [place] [address] Podiatry 07/29/24 documented as of this encounter
--- OUTSIDE RECORDS SUMMARY | 2024-11-03 16:22 | XMS_ITS | Encounter Summary ---
Author Organization [employer] Address [address] [facility] [address] [place] [address] Care Team Providers Care Lead Electrical Engineer Name Role Phone Myranda Andie SUN Primary Care Provider [phone] Trevor Restrepo MD Unavailable [phone] Juvenal Cr MD Unavailable [phone] Kamini Chavarria MD Unavailable [phone] Winston Bhagat DPM Unavailable [phone] Encounter Details Date Type Department Care Team (Late st Contact Info) Description 11/03/2024 Orders Only GENERIC EXTERNAL DATA DEPARTMENT Provider, Generic External Data Social History Tobacco Use Types Packs/Day Years [...] AM EDT documented as of this encounter Plan of Treatment Not on file documented as of this encounter Procedures Procedure Name Priority Date/Time Associated Diagnosis Comments CTA CHEST PE PROTOCAL Routine 11/03/2024 1:35 PM EDT HIGH SENSITIVITY TROPONIN I Routine 11/03/2024 11:57 AM EDT RESPIRATORY VIRAL PANEL PCR Routine 11/03/2024 11:57 AM EDT XR CHEST 1 VIEW Routine 11/03/2024 11:53 AM EDT VENOUS BLOOD GAS Routine 11/03/2024 10:1 0 AM EDT HIGH SENSITIVITY TROPONIN I Routine 11/03/2024 10:02 AM EDT SARS COV2/INFLUENZA A/B AND RSV RNA QL NAAT Routine 11/03/2024 10:02 AM EDT CBC WITH AUTO DIFFERENTIAL Routine 11/03/2024 10:02 AM EDT B TYPE NATRIURETIC PEPTIDE (BNP) Routine 11/03/2024 10:02 AM EDT MAGNESIUM Routine 11/03/2024 10:02 AM EDT LIPASE Routine 11/03/2024 10:02 AM EDT HEPATIC FUNCTION PANEL Routine 11/03/2024 10:02 AM EDT BASIC METABOLIC PANEL Routine 11/03/2024 10:02 AM EDT LACTIC ACID Routine 11/03/2024 10:01 AM EDT documented in this encounter Results * CTA Chest PE Protocal (11/03/2024 1:35 PM EDT) Anatomical Region Laterality Modality Body, Chest Computed Tomogra phy 11/03/2024 1:35 PM EDT Narrative 11/03/2024 1:36 PM EDT ? [facility] ?[address] ?[place] [address] ? CT Scan Report ? Signed ? Patient: Maribeth,Darwin ?MR#: [id number] ? : 1960 ?Acct:[id number] ? Age/Sex: 64 / M ?ADM Date: 11/03/24 ? Loc: HO.ED ? Attending Dr: ? Ordering Physician: Senia Langston MD ?? Date of Service: 11/03/24 ?? Procedure(s): CT angio chest PE protocol ?? Accession Number(s): [id number] ? cc: Senia Langston MD; Andie Whitmore [employer] ? Report Number: ?? [id number]: Total DLP = ??284.00 mGy-cm ? CLINICAL [...] by Goldie Ybarra MD in OV> ?11/03/24 1336 ? DD/ ? TD/TT: 11/03/241334 ? Swing Type Lathe Operator: ? Procedure Note Rosemarie Mayorga - 11/03/[address] [address] [place] Scan Report Signed Patient: Emilia Stahl#: [id number] : 1960cct:[id number] Age/Sex: 64 / MADM Date: 11/03/24 Loc: HO.ED Attending Dr: Ordering Physician: Senia Langston MD Date of Service: 11/03/24 Procedure(s): CT angio chest PE protocol Accession Number(s): [id number] cc: Senia Langston MD; Andie Whitmore [facility] Report Number: [id number]: Total DLP = 284.00 mGy-cm CLINICAL HISTORY: [...] by Goldie Ybarra MD in OV> 11/03/24 1336 DD/ 1335 TD/TT: 11/03/24 1335 Swing Type Lathe Operator: [facility] External Provider IMG CT PROCEDURES Edited Result - Final * Respiratory Viral Panel PCR (11/03/2024 11:57 AM EDT) Adenovirus PCR Not Detected Not Detect. [facility] Bordetella pertussis PCR Not Detected Not Detect. [facility] Comment:Interpret results wi th caution. If B. pertussis isspecifically suspected, additional testing using analternate method is recommended. Bordetella parapertussis PCR Not Detected Not Detect. [facility] Chlamydia pneumoniae PCR Not Detected Not Detect. [facility] Coronavirus 229E PCR Not Detected Not Detect. [facility] Coronavirus HKU1 PCR Not Detected Not Detect. [facility] Coronavirus NL63 PCR Not Detected Not Detect. [facility] Coronavirus OC43 PCR Not Detected Not Detect. [facility] SARS-CoV-2 PCR Not Detected Not Detect. [facility] Comment:SARS-CoV-2 not detec montrell by real-time RT-PCR.Note: If clinical suspicion for Sars-CoV-2 is high, continueto maintain precautions and consider repeat testing.Test results should be interpreted in the context ofclinical findings and other laboratory data.Rare polymorphisms exist that could lead to false-negativeor false-positive results. If results do not match theclinical findings, additional testing should be considered.Results reported to [facility].This test has been authorized by the FDA under the EmergencyUse Authorization (EUA) for use by authorized laboratories. Influenza A PCR Not Detected Not Detect. [facility] Influenza A Subtype H1 Not Detected Not Detect. [facility] Influenza A H1-2009 PCR Not Detected Not Detect. [facility] Influenza A Subtype H3 Not Detected Not Detect. [facility] Influenza B PCR Not Detected Not Detect. [facility] Human metapneumovirus PCR Not Detected Not Detect. [facility] Rhino/Enterovirus PCR Not Detected Not Detect. [facility] Mycoplasma pneumoniae PCR Not Detected Not Detect. [facility] Parainfluenza 1 PCR Not Detected Not Detect. [facility] Parainfluenza 2 PCR Not Detected Not Detect. [facility] Parainfluenza 3 PCR Not Detected Not Detect. [facility] Parainfluenza 4 PCR Not Detected Not Detect. [facility] RSV PCR Not Detected Not Detect. [facility] Resp Panel NA Note See Note H [facility] Comment:All results must be correlated with [...] assay is performed by Multiplexed PCR, utilizing [employer]. 11/03/2024 11:5 7 AM EDT 11/03/2024 12:01 PM EDT us Generic External Data Provider LAB BLOOD ORDERAB LES Final Result Performing Organization Address [facility]/ZIP Co de Phone Number [facility] [address] [place] [address] [phone] * (ABNORMAL) High Sensitivity Troponin I (11/03/2024 11:57 AM EDT) TROPONIN I HIGH SENSITIVITY 73.9(H) <3.5 - 35.0 ng/L [facility] Comment:The [facility]ett high sens itivity Troponin-I results should beused in conjunction with other diagnostic information suchas ECG, clinical observations and information, and patientsymptoms to aid in the diagnosis of RI. 11/03/2024 11:5 7 AM EDT 11/03/2024 12:04 PM EDT us Generic External Data Provider LAB BLOOD ORDERAB LES Final Result Performing Organization Address [facility]/ZIP Co de Phone Number [facility] [address] [place] [address] [phone] * XR Chest 1 View (11/03/2024 11:53 AM EDT) Anatomical Region Laterality Modality Chest Radiographic Debra ging 11/03/2024 11:5 3 AM EDT Narrative 11/03/2024 11:55 AM EDT ? [facility] ?[address] ?[place] [address] ?XRay Report ? Signed ? Patient: Maribeth,Darwin ?MR#: [id number] ? : 1960 ?Acct:[id number] ? Age/Sex: 64 / M ?ADM Date: 11/03/24 ? Loc: HO.ED ? Attending Dr: ? Ordering Physician: Brianna Mckeon ?? Date of Service: 11/03/24 ?? Procedure(s): XR chest 1V ?? Accession Number(s): [id number] ? cc: Brianna Mckeon; Andie Whitmore ? CLINICAL HISTORY: SOB ? 1 view [...] by Goldie Ybarra MD in OV> ?11/03/24 115 ? DD/ 115 ? TD/TT: 11/03/24 1153 ? Swing Type Lathe Operator: ? Procedure Note Rosemarie Mayorga - 11/03/[address] [address] XRay Report Signed Patient: Darwin Stahl#: [id number] : 1Acct:[id number] Age/Sex: 64 / MADM Date: 11/03/24 Loc: HO.ED Attending Dr: Ordering Physician: Brianna Mckeon Date of Service: 11/03/24 Procedure(s): XR chest 1V Accession Number(s): [id number] cc: Brianna Mckeon; WernerkerriAndie CLINICAL HISTORY: SOB 1 view chest x-ray [...] 11/03/24 1154 DD/ 1153 TD/TT: 11/03/24 1153 Swing Type Lathe Operator: [facility] External Provider IMG XR PROCEDURES Edited Result - Final * (ABNORMAL) VENOUS BLOOD GAS (11/03/2024 10:10 AM EDT) VBG pH 7.46(H) 7.32 - 7.43 [facility] Comment:METER #: [id number] additional_comment: Cb ana VBG PCO2 50 mmHg [facility] Comment:METER #: [id number] additional_comment: Cb ana VBG PO2 38 mmHg [facility] Comment:METER #: [id number] additional_comment: Cb ana VBG Base Excess 10.6 mmol/L [facility] Comment:METER #: [id number] additional_comment: Cb ana VBG HCO3 35(H) 22 - 26 mmol/L [facility] Comment:METER #: [id number] additional_comment: Cb ana O2 Sat, Rober 58.0 % [facility] Comment:METER #: [id number] additional_comment: Jean Paul perez 11/03/2024 10:1 0 AM EDT 11/03/2024 10:13 AM EDT Generic External Data Provider LAB BLOOD ORDERAB LES Final Result Performing Organization Address [facility]/ZIP Co de Phone Number [facility] [address] [place] [phone] * SARS-CoV-2 RNA, Influenza A/B, and RSV RNA, Ql NAAT (11/03/2024 10:02 AM EDT) Pathologist [facility] Influenza A PCR NEGATIVE Negative [facility] Influenza B PCR NEGATIVE Negative [facility] Resp Syncy Virus RNA Qual PCR NEGATIVE Negative [facility] SARS COV2 PCR NEGATIVE Negative [facility] Comment:All test results mus t [...] use by authorized laboratories.Testing performed on the [employer] GeneXpert utilizingreal-time RT-PCR.All SARS CoV2 and positive influenza A/B results arereported to [facility]. 11/03/2024 10:0 2 AM EDT 11/03/2024 10:09 AM EDT us Generic External Data Provider LAB MICROBIOLOGY - GENERAL ORDERABLES Final Result Performing Organization Address [facility] Co de Phone Number [facility] [address] [place] [phone] * (ABNORMAL) High Sensitivity Troponin I (11/03/2024 10:02 AM EDT) TROPONIN I HIGH SENSITIVITY 86.6(H) <3.5 - 35.0 ng/L [facility] Comment:The Burnett high sens itivity Troponin-I results should beused in conjunction with other diagnostic information suchas ECG, clinical observations and information, and patientsymptoms to aid in the diagnosis of RI. 11/03/2024 10:0 2 AM EDT 11/03/2024 10:09 AM EDT us Generic External Data Provider LAB BLOOD ORDERAB LES Final Result Performing Organization Address City/[facility]/ZIP Co de Phone Number [facility] [address] [place] [phone] * (ABNORMAL) B Type Natriuretic Peptide (BNP) (11/03/2024 10:02 AM EDT) Pathologist [facility] B Type Natriuretic Peptide 4,986(H) <100 pg/mL [facility] 11/03/2024 10:0 2 AM EDT 11/03/2024 10:09 AM EDT us Generic External Data Provider LAB BLOOD ORDERAB LES Final Result Performing Organization Address [facility] Co de Phone Number [facility] [address] [place] [phone] * Lipase (11/03/2024 10:02 AM EDT) Lipase 22 8 - 78 U/L [facility] 11/03/2024 10:0 2 AM EDT 11/03/2024 10:09 AM EDT Generic External Data Provider LAB BLOOD ORDERAB LES Final Result Performing Organization Address [facility] Co de Phone Number [facility] [address] [place] [phone] * Magnesium (11/03/2024 10:02 AM EDT) Pathologist [facility] Magnesium 2.1 1.6 - 2.6 mg/dL [facility] 11/03/2024 10:0 2 AM EDT 11/03/2024 10:09 AM EDT us Generic External Data Provider LAB BLOOD ORDERAB LES Final Result [facility] [address] [place] [address] [phone] * (ABNORMAL) Basic Metabolic Panel (11/03/2024 10:02 AM EDT) Sodium 136 135 - 145 mmol/L [facility] Potassium 3.8 3.3 - 5.1 mmol/L [facility] Chloride 94(L) 96 - 108 mmol/L [facility] Carbon Dioxide 29 22 - 29 mmol/L [facility] Anion Gap 17 12 - 20 [facility] Urea Nitrogen (BUN) 40(H) 9 - 16 mg/dL [facility] Creatinine, Serum 4.35(HH) 0.5 - 1.4 mg/dL [facility] Comment:Critical value for t est(s): DELMI Results called to and readback by:BEATRICE Person calling:LHEUREM Date:11/03/24Time:1030 Creatinine Clr Calc Pharmacy 13.9 [facility] Comment:eGFR (calculated fro m the MDRD study equation) and eCrCl(calculated from the Cockcroft-Gault equation) are based ondifferent parameters and may not yield comparable results.If eCrCl result is absurd, please check patient'sheight/weight. Estimated Glomerular Filt Rate 14 [facility] Comment:Chronic Kidney Disea se: Estimated GFR < 60 mL/min/1.05t9Filsbp Kidney Disease: Estimated GFR < 15 mL/min/1.73m2 Glucose 88 60 - 115 mg/dL [facility] Calcium 10.3(H) 8.4 - 10.2 mg/dL [facility] 11/03/2024 10:0 2 AM EDT 11/03/2024 10:09 AM EDT us Generic External Data Provider LAB BLOOD ORDERAB LES Final Result Performing Organization Address [facility]/ZIP Co de Phone Number [facility] [address] [place] [phone] * (ABNORMAL) Hepatic Function Panel (11/03/2024 10:02 AM EDT) Pathologist [facility] Bilirubin, Total 1.4(H) 0.0 - 1.0 mg/dL [facility] Bilirubin, Direct 0.5 0.0 - 0.5 mg/dL [facility] Aspartate Amino Transferase 27 5 - 37 U/L [facility] Alanine Aminotransferase 12 0 - 40 U/L [facility] Total Protein 7.1 6.5 - 8.0 g/dL [facility] Albumin Level 4.5 3.5 - 5.0 g/dL [facility] Alkaline Phosphatase 113 39 - 117 U/L [facility] 11/03/2024 10:0 2 AM EDT 11/03/2024 10:09 AM EDT us Generic External Data Provider LAB BLOOD ORDERAB LES Final Result Performing Organization Address [facility] Co de Phone Number [facility] [address] [place] [phone] * (ABNORMAL) CBC auto differential (11/03/2024 10:02 AM EDT) White Blood Count 6.8 4.8 - 10.8 X10*3/uL [facility] Red Blood Count 3.48(L) 4.60 - 5.80 X10*6/uL [facility] Hemoglobin 10.1(L) 14.0 - 18.0 g/dl [facility] Hematocrit 30.8(L) 42.0 - 52.0 % [facility] Mean Corpuscular Volume 88.5 80.0 - 98.0 fL [facility] Mean Corpuscular Hemoglobin 29.0 27.0 - 33.0 pg [facility] Mean Corpuscular HGB Conc 32.8 31.0 - 36.0 g/dl [facility] Red Cell Distribution Width 18.2(H) 11.0 - 16.0 % [facility] Platelet Count 193 160 - 400 X10*3/uL [facility] Mean Platelet Volume 10.7 9.4 - 12.4 fL [facility] Neutrophils Percent Auto 74.1(H) 45 - 73 % [facility] Imm Gran Pct Auto 0.3 0.0 - 0.4 % [facility] Lymphocytes Percent Auto 14.7(L) 20 - 40 % [facility] Monocytes Percent Auto 6.8 2 - 11 % [facility] Eosinophils Percent Auto 3.4 0 - 4 % [facility] Basophils Percent Auto 0.7 0 - 2 % [facility] NRBC Pct Auto 0.0 0.0 - 0.2 /100WBC [facility] Neutrophils Absolute Auto 5.0 2.0 - 8.3 x10*3/uL [facility] Imm Gran Abs Auto 0.02 0.00 - 0.03 X10*3/uL [facility] Lymphocytes Absolute Auto 1.0(L) 1.2 - 4.9 X10*3/uL [facility] Monocytes Absolute Auto 0.5 0.1 - 1.2 X10*3/uL [facility] Eosinophils Absolute Auto 0.2 0.0 - 0.4 X10*3/uL [facility] Basophils Absolute Auto 0.1 0.0 - 0.2 X10*3/uL [facility] NRBC Abs Auto 0.000 0.0 - 0.012 X10*3/uL [facility] 11/03/2024 10:0 2 AM EDT 11/03/2024 10:09 AM EDT us Generic External Data Provider LAB BLOOD ORDERAB LES Final Result [facility] [address] [place] [phone] * Lactic Acid (11/03/2024 10:01 AM EDT) Lactic Acid 0.8 0.5 - 2.0 mmol/L [facility] 11/03/2024 10:0 1 AM EDT 11/03/2024 10:09 AM EDT us Generic External Data Provider LAB BLOOD ORDERAB LES Final Result [facility] [address] [place] [phone] documented in this encounter Visit Diagnoses Not on filedocumented in this encounter Additional Health Concerns Assessment Noted Time PHQ-9 Depression Total Score: 1 12/23/19 23 3:02 PM EDT documented as of this encounter Care Teams Lead Electrical Engineer Relationship Specialty Start Date End Date Andie Whitmore FNP [address] [place] [address] PCP - General Family Medicine 11/04/21 Trevor Restrepo MD [address] [place] [address] Urology 07/29/24 Juvenal Cr MD [address] [place] [phone] Nephrology 07/29/24 Kamini Chavarria MD [address] [place] [address] Neurology 07/29/24 Winston Bhagat DPM [address] [place] [address] Podiatry 07/29/24 documented as of this encounter
--- OUTSIDE RECORDS SUMMARY | 2024-11-03 16:22 | XMS_ITS | Encounter Summary ---
Author Organization [facility] Address [address] [place] [phone] Phone Care Team Providers Care Sock Examiner Name Role Phone Unavailable Primary Care Provider Unavailabl e Encounter Details Date Type Department Care Team ([facility] st Contact Info) Description 11/02/2024 Treatment [facility]. [address] [phone] Clinton Ortega MD [facility] [phone] End stage renal disease; Dependence [...] care for end stage renal disease. Attending Qa Lead: CLINTON ORTEGA Dialysis Location: [facility] Schedule: Shift: 1 ADEQUACY ASSESSMENT Kt/V, [...]
[2024-11-03] MEDS: 0.9 % Sodium Chloride Flush 3 ML SYRINGE IVFLUSH (16:54)
[2024-11-03] MEDS: Sevelamer Carbonate Tablet 800 MG TABLET PO (17:07)
--- NOTE | 2024-11-03 17:20 | PC.NURSE ---
Pt. going back to ER room with transport, informed them to feed pt. did not get a tray over in overflow area.
--- NOTE | 2024-11-03 17:46 | PC.NURSE ---
Pt brought back to ED 12 d/t new med tele orders. Resting in hospital bed quietly, a/ox3, respirations even and unlabored, mild sob noted, O2 increased to 4L NC d/t desat to mid 80s, nsr on quality assurance monitor chassis, HR- 60s. BP 170s/80s- MD made aware. Denies cp/n/v/d/blurry vision. Vitals updated in worklist, call preciado within reach, all needs met at this time.
[2024-11-03] MEDS: Albuterol/Iprat 2.5/0.5MG 3 ML AMPUL.NEB INHALE (20:15)
[2024-11-03] MEDS: amLODIPine Besylate 10 MG TABLET PO (20:19)
[2024-11-04] VITALS (17 sets, daily range): BP systolic 166–194; BP diastolic 67–98; PULSE 65–85; RESP 13–24; TEMP 36.4–37; O2SAT 92–96
[2024-11-04] MEDS: 0.9 % Sodium Chloride Flush 3 ML SYRINGE IVFLUSH ×3 (00:22→17:39)
[2024-11-04] MEDS: Heparin Sodium,Porcine 5,000 UNIT/ML VIAL 5000 UNIT SUBCUT ×3 (00:59→23:57)
[2024-11-04] MEDS: Doxycycline Hyclate 100 MG in 0.9 % Sodium Chloride 250 ML 166.67 MG IV ×2 (00:59→17:46)
[2024-11-04] MEDS: hydrALAZINE HCl 20 MG/ML VIAL 5 MG IVPUSH (03:47)
[2024-11-04] MEDS: hydrALAZINE HCl 20 MG/ML VIAL IVPUSH (06:00)
[2024-11-04 06:41] LABS: Anion Gap 17 (12-20); Blood Urea Nitrogen 50 mg/dL (9-16); Calcium 9.4 mg/dL (8.4-10.2); Carbon Dioxide 25 mmol/L (22-29); Chloride 96 mmol/L (96-108); Estimated Glomerular Filt Rate 11; Glucose Random 79 mg/dL (60-115); Potassium 3.9 mmol/L (3.3-5.1); Sodium 134 mmol/L (135-145)
[2024-11-04] MEDS: Bumetanide 1 MG TABLET 2 MG PO (08:01)
[2024-11-04] MEDS: predniSONE 5 MG TABLET PO (08:01)
[2024-11-04] MEDS: Atorvastatin Calcium 20 MG TABLET PO (08:01)
[2024-11-04] MEDS: Ferrous Sulfate 324 MG TABLET.DR PO (08:01)
[2024-11-04] MEDS: Sevelamer Carbonate Tablet 800 MG TABLET PO ×3 (08:02→17:38)
[2024-11-04] MEDS: hydrALAZINE HCl 50 MG TABLET 100 MG PO ×3 (08:02→20:24)
[2024-11-04] MEDS: Albuterol/Iprat 2.5/0.5MG 3 ML AMPUL.NEB INHALE (08:10)
[2024-11-04] MEDS: rOPINIRole HCL 2 MG TABLET PO ×3 (09:09→20:24)
--- NOTE | 2024-11-04 09:51 | MHC.CM.PN ---
IMM 11/04. Pt self-care, lives at home with his sister who will transport him home at discharge. Pt goes to HD in [place] M//, and uses a cane. HCP on file and verified. PCP: CORINNE Whitmore
[2024-11-04] MEDS: Acetaminophen 325 MG TABLET 650 MG PO (11:18)
[2024-11-04] MEDS: cloNIDine HCL 0.1 MG TABLET PO ×2 (11:19→20:24)
--- NOTE | 2024-11-04 12:23 | HO.PM.IMPN ---
Subjective Subjective Date of Service: 11/04/24 Interval History: esrd, htn uncontrolled , pneumonia Review of Systems sob and cough improving , no fevers Physical Exam Vital Signs: Vital Signs: Last Vital Signs Temp 98.3 F 11/04/24 09:57 Pulse 78 11/04/24 09:57 Resp 22 H 11/04/24 09:57 BP 192/88 H 11/04/24 11:19 Pulse Ox 93 11/04/24 09:57 O2 Del Method Nasal Cannula 11/04/24 09:57 O2 Flow Rate 5 11/04/24 09:57 BMI result Body Mass Index 24.2 Appearance: Alert.? Oriented X3.? cvs: [id number], [id number] . res: clear to auscultation ,no rales abd: soft ,nt, bs present. ext pulses present , no cyanosis . neuro: axo3 , nonfocal. Objective Data Active Medications Acetaminophen (Acetaminophen 325 Mg Tablet) 650 mg PO Q6H PRN PRN Reason: Pain, Mild 1-3,fever,headache Last Admin: 11/04/24 11:18 Dose: 650 mg Documented By: PAULINA Albuterol/Ipratropium (Albuterol/Iprat 2.5/0.5mg 3 Ml Ampul.Neb) 3 ml INHALE RQ4H WHILE AWAKE PRN PRN Reason: Shortness of Breath/Wheezing Last Admin: 11/04/24 08:10 Dose: 3 ml Documented By: RUBI Amlodipine Besylate (Amlodipine Besylate 10 Mg Tablet) 10 mg PO BEDTIME [facility]; Protocol Last Admin: 11/03/24 20:19 Dose: 10 mg Documented By: ANANDA Atorvastatin Calcium (Atorvastatin Calcium 20 Mg Tablet) 20 mg PO DAILY [facility] Last Admin: 11/04/24 08:01 Dose: 20 mg Documented By: PAULINA Bumetanide (Bumetanide 1 Mg Tablet) 2 mg PO DAILY [facility]; Protocol Last Admin: 11/04/24 08:01 Dose: 2 mg Documented By: PAULINA Calcium Carbonate (Calcium Carbonate 750 Mg Tab.Chew) 750 mg PO Q4H PRN PRN Reason: Heartburn Ceftriaxone Sodium (Ceftriaxone Sodium 1 Gm Vial) 1 gm IVPUSH Q24H [facility] Clonidine HCl (Clonidine Hcl 0.1 Mg Tablet) 0.1 mg PO BID [facility]; Protocol Last Admin: 11/04/24 11:19 Dose: 0.1 mg Documented By: PAULINA Ferrous Sulfate (Ferrous Sulfate 324 Mg Tablet.) 324 mg PO DAILY [facility] Last Admin: 11/04/24 08:01 Dose: 324 mg Documented By: PAULINA Guaifenesin/Codeine Phosphate (Guaifen/Codeine Sf 200/20/10ml 10 Ml Liquid) 5 ml PO Q4H PRN PRN Reason: Cough Heparin Sodium (Porcine) (Heparin Sodium,Porcine 5,000 Unit/Ml Vial) 5,000 unit SUBCUT Q8H [facility] Last Admin: 11/04/24 08:03 Dose: 5,000 unit Documented By: PAULINA Hydralazine HCl (Hydralazine Hcl 50 Mg Tablet) 100 mg PO BID [facility]; Protocol Last Admin: 11/04/24 08:02 Dose: 100 mg Documented By: PAULINA Hydralazine HCl (Hydralazine Hcl 20 Mg/Ml Vial) 10 mg IVPUSH Q6H PRN; Protocol PRN Reason: SBP >180 Doxycycline Hyclate 100 mg/ (Sodium Chloride) 250 mls @ 166.67 mls/hr IV Q12H [facility] Last Infusion: 11/04/24 02:25 Dose: Infused Documented By: ANANDA Magnesium Hydroxide (Milk Of Magnesia 30 Ml Oral.Susp) 30 ml PO DAILY PRN PRN Reason: Constipation Melatonin (Melatonin 3 Mg Tablet) 6 mg PO BEDTIME PRN PRN Reason: Insomnia Non-Formulary Medication (Abiraterone) 1,000 mg PO BEDTIME [facility] Ondansetron HCl (Ondansetron Hcl 4 Mg/2 Ml Vial) 4 mg IVPUSH Q8H PRN PRN Reason: Nausea and Vomiting Prednisone (Prednisone 5 Mg Tablet) 5 mg PO DAILY [facility] Last Admin: 11/04/24 08:01 Dose: 5 mg Documented By: PAULINA Ropinirole HCl (Ropinirole Hcl 2 Mg Tablet) 2 mg PO TID [facility] Last Admin: 11/04/24 09:09 Dose: 2 mg Documented By: PAULINA Sevelamer Carbonate (Sevelamer Carbonate Tablet 800 Mg Tablet) 800 mg PO TIDWM [facility] Last Admin: 11/04/24 11:19 Dose: 800 mg Documented By: PAULINA Sodium Chloride (0.9 % Sodium Chloride Flush 3 Ml Syringe) 3 ml IVFLUSH QSHIFT [facility] Last Admin: 11/04/24 08:04 Dose: 3 ml Documented By: PAULINA Labs 11/03/24 10:02 11/04/24 06:15 Labs: Laboratory Results - last 24 hr 11/03/24 11/04/24 11:57 06:15 Hold Purple Top SEE NOTE Anion Gap 17 Estim Creat Clear Calc 11.0 Estimated GFR 11 Random Glucose 79 Calcium 9.4 D Respiratory Panel Rausch See Note Adenovirus (Rapid PCR) Not Detected B.pert (TEM-PCR) Not Detected B.parapertussis DNA PCR Not Detected C. pneumoniae DNA (PCR) Not Detected Coronavirus OC43 (PCR) Not Detected Coronavirus HKU1 (PCR) Not Detected Coronavirus 229E (PCR) Not Detected Coronavirus NL63 (PCR) Not Detected Human Metapneumovir PCR Not Detected Influenza A (RT-PCR) Not Detected Influenza A (H1) PCR Not Detected Influ A (H1/09) PCR Not Detected Influenza A (H3) PCR Not Detected Influenza B (RT-PCR) Not Detected M. pneumoniae (PCR) Not Detected Parainfluenza 1 (PCR) Not Detected Parainfluenza 2 (PCR) Not Detected Parainfluenza 3 (PCR) Not Detected Parainfluenza 4 (PCR) Not Detected RSV (PCR) Not Detected Entero/Rhino (PCR) Not Detected SARS-CoV-2 RNA (RT-PCR) Not Detected Microbiology Microbiology Results: Microbiology 11/03/24 10:01 Blood Culture - Preliminary Blood - Venous No growth after 24 hours. 11/03/24 10:01 Blood Culture - Preliminary Blood - Venous No growth after 24 hours. Assessment and Plan (1) Multifocal pneumonia: Status: Acute Plan 64-year-old male with a PMH significant for?HFrEF, ESRD on HD M/W/F, prostate cancer with mets to the bone, anemia of chronic disease, HTN, HLD, hx of erosive gastritis, and restless leg syndrome who presents to the ED with?worsening SOB, THACKER, and cough with the past few days. Pt will be admitted to the hospital for treatment and further evaluation of acute hypoxic respiratory failure in the setting of multifocal pneumonia. Acute hypoxic respiratory failure in the setting of multifocal pneumonia CTA negative for PE but showed multiple areas of ground-glass opacities suggestive infectious vs inflammatory etiology blood cultures negative @24hrs continue doxycycline and ceftriaxone, started 11/03/2024, nebs , guaifenesin Titrate supplemental O2 >92, wean as tolerated Monitor respiratory status ESRD on HD [facility]phrology consulted for HD session RLS:continue ropinirole HTN uncontrolled amlodipine , adjusted hydralazine 100 mg tid ,also added clonidine 0.1 mg bid. VTE ppx UFH ongoing need for stay- Acute hypoxic respiratory failure in the setting of multifocal pneumonia-need oxygen,iv antibiotics and respiratory status not optimal yet. Quality Stroke Does the patient have a stroke diagnosis?: No VTE Prior VTE?: No VTE Risk Level:: Medical - moderate - high VTE Device Contraindication: Treatment Not Indicated VTE Drug Contraindication: N/A - Med Ordered
--- NOTE | 2024-11-04 14:00 | PC.NURSE ---
patient transported to dialysis. Diaylsis RN stated to hold abx and give after treatment.
[2024-11-04] MEDS: cefTRIAXone sodium 1 GM VIAL IVPUSH (17:38)
[2024-11-04] MEDS: amLODIPine Besylate 10 MG TABLET PO (20:24)
[2024-11-04] MEDS: guaiFEN/Codeine SF 200/20/10ML 10 ML LIQUID 5 ML PO (20:24)
[2024-11-05] VITALS (7 sets, daily range): BP systolic 132–192; BP diastolic 60–90; PULSE 57–79; RESP 16–20; TEMP 36.3–37.1; O2SAT 93–96; BMI 24.5; BMI 24.0
[2024-11-05] MEDS: Doxycycline Hyclate 100 MG in 0.9 % Sodium Chloride 250 ML 166.67 MG IV ×2 (05:07→18:00)
[2024-11-05 06:14] LABS: Anion Gap 16 (12-20); Blood Urea Nitrogen 43 mg/dL (9-16); Calcium 9.4 mg/dL (8.4-10.2); Carbon Dioxide 25 mmol/L (22-29); Chloride 99 mmol/L (96-108); Creatinine Clr Calc Pharmacy 11.5; Estimated Glomerular Filt Rate 11; Glucose Random 85 mg/dL (60-115); Potassium 3.8 mmol/L (3.3-5.1); Sodium 136 mmol/L (135-145)
[2024-11-05] MEDS: hydrALAZINE HCl 50 MG TABLET 100 MG PO ×3 (08:54→20:01)
[2024-11-05] MEDS: predniSONE 5 MG TABLET PO (08:54)
[2024-11-05] MEDS: Ferrous Sulfate 324 MG TABLET.DR PO (08:54)
[2024-11-05] MEDS: Atorvastatin Calcium 20 MG TABLET PO (08:54)
[2024-11-05] MEDS: Sevelamer Carbonate Tablet 800 MG TABLET PO ×3 (08:55→18:00)
[2024-11-05] MEDS: cloNIDine HCL 0.1 MG TABLET PO ×3 (08:55→20:02)
[2024-11-05] MEDS: Heparin Sodium,Porcine 5,000 UNIT/ML VIAL 5000 UNIT SUBCUT ×3 (08:55→23:22)
[2024-11-05] MEDS: rOPINIRole HCL 2 MG TABLET PO ×3 (08:55→20:01)
[2024-11-05] MEDS: Bumetanide 1 MG TABLET 2 MG PO (08:55)
[2024-11-05] MEDS: 0.9 % Sodium Chloride Flush 3 ML SYRINGE IVFLUSH ×3 (08:56→20:07)
--- NOTE | 2024-11-05 10:36 | P.PNIM_ITS ---
Subjective Subjective Date of Service: 11/05/24 Interval History: pneumonia ,uncontrolled htn Review of Systems sob somewhat improving,still sob with minimal exersion has dry cough Physical Exam 2 Vital Signs: Vital Signs: Last Vital Signs Temp 97.6 F 11/05/24 07:57 Pulse 67 11/05/24 07:57 Resp 20 11/05/24 07:57 BP 177/79 H 11/05/24 07:57 Pulse Ox 96 11/05/24 07:57 O2 Del Method Nasal Cannula 11/05/24 07:57 O2 Flow Rate 3 11/05/24 07:57 BMI result Body Mass Index 24.5 Appearance: Alert. Oriented X3. cvs: [id number], [id number] . res:air entry diminshed lower lungs. abd: soft ,nt, bs present. ext pulses present , no cyanosis . neuro: axo3 , nonfocal. Objective Data Active Medications Acetaminophen (Acetaminophen 325 Mg Tablet) 650 mg PO Q6H PRN PRN Reason: Pain, Mild 1-3,fever,headache Last Admin: 11/04/24 11:18 Dose: 650 mg Documented By: PAULINA Albuterol/Ipratropium (Albuterol/Iprat 2.5/0.5mg 3 Ml Ampul.Neb) 3 ml INHALE RQ4H WHILE AWAKE PRN PRN Reason: Shortness of Breath/Wheezing Last Admin: 11/04/24 08:10 Dose: 3 ml Documented By: RUBI Amlodipine Besylate (Amlodipine Besylate 10 Mg Tablet) 10 mg PO BEDTIME [facility]; Protocol Last Admin: 11/04/24 20:24 Dose: 10 mg Documented By: ANTOINRoc Atorvastatin Calcium (Atorvastatin Calcium 20 Mg Tablet) 20 mg PO DAILY [facility] Last Admin: 11/05/24 08:54 Dose: 20 mg Documented By: DEJAHPACarmen Bumetanide (Bumetanide 1 Mg Tablet) 2 mg PO DAILY [facility]; Protocol Last Admin: 11/05/24 08:55 Dose: 2 mg Documented By: GAVIOTA Calcium Carbonate (Calcium Carbonate 750 Mg Tab.Chew) 750 mg PO Q4H PRN PRN Reason: Heartburn Ceftriaxone Sodium (Ceftriaxone Sodium 1 Gm Vial) 1 gm IVPUSH Q24H [facility] Last Admin: 11/04/24 17:38 Dose: 1 gm Documented By: JESUS-STEPHANIE Clonidine HCl (Clonidine Hcl 0.1 Mg Tablet) 0.1 mg PO BID [facility]; Protocol Last Admin: 11/05/24 08:55 Dose: 0.1 mg Documented By: GAVIOTA Ferrous Sulfate (Ferrous Sulfate 324 Mg Tablet.Dr) 324 mg PO DAILY [facility] Last Admin: 11/05/24 08:54 Dose: 324 mg Documented By: GAVIOTA Guaifenesin/Codeine Phosphate (Guaifen/Codeine Sf 200/20/10ml 10 Ml Liquid) 5 ml PO Q4H PRN PRN Reason: Cough Last Admin: 11/04/24 20:24 Dose: 5 ml Documented By: ANTOINC Heparin Sodium (Porcine) (Heparin Sodium,Porcine 5,000 Unit/Ml Vial) 5,000 unit SUBCUT Q8H [facility] Last Admin: 11/05/24 08:55 Dose: 5,000 unit Documented By: GAVIOTA Hydralazine HCl (Hydralazine Hcl 20 Mg/Ml Vial) 10 mg IVPUSH Q6H PRN; Protocol PRN Reason: SBP >180 Hydralazine HCl (Hydralazine Hcl 50 Mg Tablet) 100 mg PO TID [facility]; Protocol Last Admin: 11/05/24 08:54 Dose: 100 mg Documented By: GAVIOTA Doxycycline Hyclate 100 mg/ (Sodium Chloride) 250 mls @ 166.67 mls/hr IV Q12H [facility] Last Infusion: 11/05/24 08:50 Dose: Infused Documented By: GAVIOTA Magnesium Hydroxide (Milk Of Magnesia 30 Ml Oral.Susp) 30 ml PO DAILY PRN PRN Reason: Constipation Melatonin (Melatonin 3 Mg Tablet) 6 mg PO BEDTIME PRN PRN Reason: Insomnia Non-Formulary Medication (Abiraterone) 1,000 mg PO BEDTIME [facility] Ondansetron HCl (Ondansetron Hcl 4 Mg/2 Ml Vial) 4 mg IVPUSH Q8H PRN PRN Reason: Nausea and Vomiting Prednisone (Prednisone 5 Mg Tablet) 5 mg PO DAILY [facility] Last Admin: 11/05/24 08:54 Dose: 5 mg Documented By: GAVIOTA Ropinirole HCl (Ropinirole Hcl 2 Mg Tablet) 2 mg PO TID [facility] Last Admin: 11/05/24 08:55 Dose: 2 mg Documented By: GAVIOTA Sevelamer Carbonate (Sevelamer Carbonate Tablet 800 Mg Tablet) 800 mg PO TIDWM [facility] Last Admin: 11/05/24 08:55 Dose: 800 mg Documented By: GAVIOTA Sodium Chloride (0.9 % Sodium Chloride Flush 3 Ml Syringe) 3 ml IVFLUSH QSHIFT [facility] Last Admin: 11/05/24 08:56 Dose: 3 ml Documented By: GAVIOTA Labs 11/03/24 10:02 11/05/24 05:46 Labs: Laboratory Results - last 24 hr 11/05/24 05:46 Hold Purple Top SEE NOTE Anion Gap 16 Estim Creat Clear Calc 11.5 Estimated GFR 11 Random Glucose 85 Calcium 9.4 Microbiology Microbiology Results: Microbiology 11/03/24 10:01 Blood Culture - Preliminary Blood - Venous No growth after 24 hours. 11/03/24 10:01 Blood Culture - Preliminary Blood - Venous No growth after 24 hours. Assessment and Plan (1) Multifocal pneumonia: Status: Acute Plan 64-year-old male with a PMH significant for?HFrEF, ESRD on HD M/W/F, prostate cancer with mets to the bone, anemia of chronic disease, HTN, HLD, hx of erosive gastritis, and restless leg syndrome who presents to the ED with?worsening SOB, THACKER, and cough with the past few days. Pt will be admitted to the hospital for treatment and further evaluation of acute hypoxic respiratory failure in the setting of multifocal pneumonia. Acute hypoxic respiratory failure in the setting of multifocal pneumonia CTA negative for PE but showed multiple areas of ground-glass opacities suggestive infectious vs inflammatory etiology blood cultures negative @24hrs continue doxycycline and ceftriaxone, started 11/03/2024, nebs , guaifenesin Titrate supplemental O2 >92, wean as tolerated Monitor respiratory status ESRD on HD [facility]rology consulted for HD session RLS:continue ropinirole HTN uncontrolled amlodipine , adjusted hydralazine 100 mg tid ,adjusted clonidine 0.1 mg tid . nephrology following VTE ppx UFH ongoing need for stay- Acute hypoxic respiratory failure in the setting of multifocal pneumonia-need oxygen,iv antibiotics and respiratory status not optimal yet. Quality Stroke Does the patient have a stroke diagnosis?: No VTE Prior VTE?: No VTE Risk Level:: Medical - moderate - high VTE Device Contraindication: Treatment Not Indicated VTE Drug Contraindication: N/A - Med Ordered
--- NOTE | 2024-11-05 12:43 | PM.CNNEP ---
History of Present Illness Reason for Consult Consult date: 11/05/24 Chief Complaint Chief complaint: pneumonia w/ hypoxia History of Present Illness Narrative: 64-year-old male with history of ESRD admitted with acute hypoxic respiratory failure in the setting of multifocal pneumonia. He presented to the hospital with worsening SOB, THACKER, and cough with the past few days. At the time of the consultation he is having dialysis. Review of Systems Review of Systems 10 points ROS negative except for pertinent in HPI PMFSH Past Medical History Medical History (Updated 11/05/24 @ 12:46 by Zach Ruiz MD) Anemia ESRD (end stage renal disease) HTN (hypertension) Creatinine elevation Urinary retention History of upper gastrointestinal bleeding A-V fistula Fusion of lumbar spine Chronic kidney disease Urinary tract infection Enlarged prostate Kidney disease Elevated PSA Anemia Metabolic acidosis Bilateral hydronephrosis Hypocalcemia Acute anemia Acute kidney injury Surgical History Surgical History History of fusion of cervical spine Hx of esophagogastroduodenoscopy History of transurethral resection of prostate S/P arteriovenous (AV) fistula creation History of hip replacement, total Social History Social History Household Members: Family Household Members Other:: 2 Housing: House Housing Other:: mobile home Do you presently have visiting nurse or other home services: No Alcohol intake: former Patient Tobacco Use Status: Former Tobacco user Tobacco use type: Cigarette Years Smoked: 50 e-Cigarette/Vaping Use: Former Use Substance Use Type: Marijuana service: No Current occupational status: disabled Meds Allergies Allergy/AdvReac Type Severity Reaction Status Date / Time No Known Allergies Allergy Verified 11/03/24 09:04 [No Known Allergies*] Active Medications: Current Medications Acetaminophen (Acetaminophen 325 Mg Tablet) 650 mg PO Q6H PRN PRN Reason: Pain, Mild 1-3,fever,headache Last Admin: 11/04/24 11:18 Dose: 650 mg Albuterol/Ipratropium (Albuterol/Iprat 2.5/0.5mg 3 Ml Ampul.Neb) 3 ml INHALE RQ4H WHILE AWAKE PRN PRN Reason: Shortness of Breath/Wheezing Last Admin: 11/04/24 08:10 Dose: 3 ml Amlodipine Besylate (Amlodipine Besylate 10 Mg Tablet) 10 mg PO BEDTIME [facility]; Protocol Last Admin: 11/04/24 20:24 Dose: 10 mg Atorvastatin Calcium (Atorvastatin Calcium 20 Mg Tablet) 20 mg PO DAILY [facility] Last Admin: 11/05/24 08:54 Dose: 20 mg Bumetanide (Bumetanide 1 Mg Tablet) 2 mg PO DAILY [facility]; Protocol Last Admin: 11/05/24 08:55 Dose: 2 mg Calcium Carbonate (Calcium Carbonate 750 Mg Tab.Chew) 750 mg PO Q4H PRN PRN Reason: Heartburn Ceftriaxone Sodium (Ceftriaxone Sodium 1 Gm Vial) 1 gm IVPUSH Q24H [facility] Last Admin: 11/04/24 17:38 Dose: 1 gm Clonidine HCl (Clonidine Hcl 0.1 Mg Tablet) 0.1 mg PO TID [facility]; Protocol Ferrous Sulfate (Ferrous Sulfate 324 Mg Tablet.Dr) 324 mg PO DAILY [facility] Last Admin: 11/05/24 08:54 Dose: 324 mg Guaifenesin/Codeine Phosphate (Guaifen/Codeine Sf 200/20/10ml 10 Ml Liquid) 5 ml PO Q4H PRN PRN Reason: Cough Last Admin: 11/04/24 20:24 Dose: 5 ml Heparin Sodium (Porcine) (Heparin Sodium,Porcine 5,000 Unit/Ml Vial) 5,000 unit SUBCUT Q8H [facility] Last Admin: 11/05/24 08:55 Dose: 5,000 unit Hydralazine HCl (Hydralazine Hcl 20 Mg/Ml Vial) 10 mg IVPUSH Q6H PRN; Protocol PRN Reason: SBP >180 Hydralazine HCl (Hydralazine Hcl 50 Mg Tablet) 100 mg PO TID [facility]; Protocol Last Admin: 11/05/24 08:54 Dose: 100 mg Doxycycline Hyclate 100 mg/ (Sodium Chloride) 250 mls @ 166.67 mls/hr IV Q12H [facility] Last Infusion: 11/05/24 08:50 Dose: Infused Magnesium Hydroxide (Milk Of Magnesia 30 Ml Oral.Susp) 30 ml PO DAILY PRN PRN Reason: Constipation Melatonin (Melatonin 3 Mg Tablet) 6 mg PO BEDTIME PRN PRN Reason: Insomnia Non-Formulary Medication (Abiraterone) 1,000 mg PO BEDTIME [facility] Ondansetron HCl (Ondansetron Hcl 4 Mg/2 Ml Vial) 4 mg IVPUSH Q8H PRN PRN Reason: Nausea and Vomiting Prednisone (Prednisone 5 Mg Tablet) 5 mg PO DAILY [facility] Last Admin: 11/05/24 08:54 Dose: 5 mg Ropinirole HCl (Ropinirole Hcl 2 Mg Tablet) 2 mg PO TID [facility] Last Admin: 11/05/24 08:55 Dose: 2 mg Sevelamer Carbonate (Sevelamer Carbonate Tablet 800 Mg Tablet) 800 mg PO TIDWM [facility] Last Admin: 11/05/24 12:41 Dose: 800 mg Sodium Chloride (0.9 % Sodium Chloride Flush 3 Ml Syringe) [facility] Last Admin: 11/05/24 08:56 Dose: 3 ml Home Medications ?Medication ?Instructions ?Recorded ?Confirmed ?Last Taken ?Type blood pressure test kit-large #1 ea 03/18/22 09/08/24 09/07/24 History amlodipine 10 mg tablet 10 mg PO BEDTIME 12/17/22 11/03/24 09/07/24 History ropinirole 2 mg tablet 2 mg PO TID 08/04/23 11/03/24 11/03/24 09:00 History abiraterone 250 mg tablet 1,000 mg PO BEDTIME 09/08/24 11/03/24 09/07/24 History albuterol sulfate 90 mcg/actuation 2 puff inhalation Q4H PRN wheezing 09/08/24 11/03/24 Unknown History aerosol inhaler (Ventolin HFA) efinaconazole 10 % topical 1 appl topical DAILY 09/08/24 11/03/24 11/03/24 09:00 History solution with applicator (Jublia) hydralazine 50 mg tablet 100 mg PO BID 09/08/24 11/03/24 11/03/24 09:00 History prednisone 5 mg tablet 5 mg PO DAILY 09/08/24 11/03/24 11/03/24 09:00 History rosuvastatin 5 mg tablet 5 mg PO DAILY 09/08/24 11/03/24 11/03/24 09:00 History bumetanide 2 mg tablet 2 mg PO DAILY 11/03/24 11/03/24 11/03/24 09:00 History sevelamer carbonate 800 mg tablet 800 mg PO TIDWM 11/03/24 11/03/24 11/03/24 09:00 History vit C 250 mg-vit E 90 mg-zinc 40 2 tab PO BEDTIME 11/03/24 11/03/24 Unknown History mg-copper 1 [id number] capsule (PreserVision AREDS-2) Physical Exam Vital Signs: Last Vital Signs Temp 97.6 F 11/05/24 07:57 Pulse 67 11/05/24 07:57 Resp 20 11/05/24 07:57 BP 177/79 H 11/05/24 07:57 Pulse Ox 96 11/05/24 07:57 O2 Del Method Nasal Cannula 11/05/24 07:57 O2 Flow Rate 3 11/05/24 07:57 BMI result Body Mass Index 24.5 Const General: alert and awake HEENT Head: Yes normocephalic and Yes atraumatic Neck Neck: Yes supple Resp Auscultation: diminished lung sounds Cardio Heart sounds: S1 normal heart sound present and S2 normal heart sound present GI Palpation (GI): Soft to palpation and nontender Extrem Right upper extremity: edema Results Lab Results 11/03/24 10:02 11/05/24 05:46 Lab results: Chemistry 11/03/24 11/04/24 11/05/24 10:02 06:15 05:46 Sodium 136 134 L 136 Potassium 3.8 3.9 3.8 Carbon Dioxide 29 25 25 BUN 40 H 50 H 43 H Creatinine 4.35 H* 5.51 H* 5.27 H* Calcium 10.3 H D 9.4 D 9.4 Hematology 11/03/24 10:02 WBC 6.8 Hgb 10.1 L D Plt Count 193 Assessment and Plan (1) ESRD (end stage renal disease): Status: Acute (2) Pneumonia: Status: Acute (3) Anemia: Status: Acute Plan ESRD on HD at [facility] followed by Dr Cr missed HD last Tuesday admitted with PNA nephrogenic anemia h/o HFmrEF LVEF 45-50% REC HD today optimize volume status ABx per primary team renal diet no need for NIKKO P binders Procedures Date of Service Date of Service: 11/05/24
--- NOTE | 2024-11-05 14:02 | MHC.CM.PN ---
PER MD ROUNDS/PROGRESS NOTE, PT NOT YET READY TO DC, STILL REQUIRING OXYGEN AND IV ABX. DCP REMAINS HOME WITH RESUMPTION OF OUTPT HD. FAMILY TO TRANSPORT
[2024-11-05] MEDS: cefTRIAXone sodium 1 GM VIAL IVPUSH (15:39)
[2024-11-05] MEDS: amLODIPine Besylate 10 MG TABLET PO (20:02)
[2024-11-05] MEDS: ABIRATERONE 250 MG 1000 EACH PO ×2 (21:36→21:46)
[2024-11-06] VITALS (9 sets, daily range): BP systolic 128–182; BP diastolic 64–81; PULSE 55–82; RESP 16–20; TEMP 36.3–37.4; O2SAT 90–95; BMI 24.1; BMI 24.6
[2024-11-06] MEDS: Doxycycline Hyclate 100 MG in 0.9 % Sodium Chloride 250 ML 166.67 MG IV (05:06)
[2024-11-06 06:35] LABS: Anion Gap 17 (12-20); Blood Urea Nitrogen 45 mg/dL (9-16); Calcium 9.4 mg/dL (8.4-10.2); Carbon Dioxide 26 mmol/L (22-29); Chloride 98 mmol/L (96-108); Creatinine Clr Calc Pharmacy 12.6; Estimated Glomerular Filt Rate 12; Glucose Random 101 mg/dL (60-115); Potassium 3.8 mmol/L (3.3-5.1); Sodium 137 mmol/L (135-145)
--- NOTE | 2024-11-06 07:26 | HE.PHANOTE ---
DOXY IV TO PO PER PROTOCOL DOXY IV CHANGED FROM 100MG IV TO PO BID. NEXT DOSE 11/06 @ 1700
[2024-11-06] MEDS: Sevelamer Carbonate Tablet 800 MG TABLET PO ×3 (08:21→16:47)
[2024-11-06] MEDS: hydrALAZINE HCl 50 MG TABLET 100 MG PO ×3 (08:21→20:00)
[2024-11-06] MEDS: cloNIDine HCL 0.1 MG TABLET PO ×3 (08:21→20:01)
[2024-11-06] MEDS: Ferrous Sulfate 324 MG TABLET.DR PO (08:21)
[2024-11-06] MEDS: rOPINIRole HCL 2 MG TABLET PO ×3 (08:22→20:01)
[2024-11-06] MEDS: Heparin Sodium,Porcine 5,000 UNIT/ML VIAL 5000 UNIT SUBCUT ×2 (08:22→16:46)
[2024-11-06] MEDS: Atorvastatin Calcium 20 MG TABLET PO (08:22)
[2024-11-06] MEDS: 0.9 % Sodium Chloride Flush 3 ML SYRINGE IVFLUSH ×2 (08:22→16:47)
[2024-11-06] MEDS: predniSONE 5 MG TABLET PO (08:22)
[2024-11-06] MEDS: Bumetanide 1 MG TABLET 2 MG PO (08:22)
--- NOTE | 2024-11-06 14:47 | MHC.CM.PN ---
PT MEDICALLY CLEARED FOR DC HOME SELF-CARE, PT'S SISTER FOR TRANSPORT
[2024-11-06] MEDS: Doxycycline Monohydrate 100 MG CAPSULE PO (16:46)
[2024-11-06] MEDS: cefTRIAXone sodium 1 GM VIAL IVPUSH (16:47)
--- NOTE | 2024-11-06 18:44 | HO.PM.IMPN ---
Subjective Subjective Date of Service: 11/06/24 Interval History: pneumonia ,uncontrolled htn still hypoxic without o2 Review of Systems sob somewhat improving,still sob with minimal exersion has dry cough Physical Exam Vital Signs: Vital Signs: Last Vital Signs Temp 97.9 F 11/06/24 15:51 Pulse 60 11/06/24 15:51 Resp 16 11/06/24 15:51 BP 182/78 H 11/06/24 15:22 Pulse Ox 90 L 11/06/24 15:51 O2 Del Method Nasal Cannula 11/06/24 15:51 O2 Flow Rate 1 11/06/24 15:51 BMI result Body Mass Index 24.6 Appearance: Alert. Oriented X3. cvs: rrr, [id number] . res:air entry diminshed lower lungs. abd: soft ,nt, bs present. ext pulses present , no cyanosis . neuro: axo3 , nonfocal. Objective Data Active Medications Acetaminophen (Acetaminophen 325 Mg Tablet) 650 mg PO Q6H PRN PRN Reason: Pain, Mild 1-3,fever,headache Last Admin: 11/04/24 11:18 Dose: 650 mg Documented By: PAULINA Albuterol/Ipratropium (Albuterol/Iprat 2.5/0.5mg 3 Ml Ampul.Neb) 3 ml INHALE RQ4H WHILE AWAKE PRN PRN Reason: Shortness of Breath/Wheezing Last Admin: 11/04/24 08:10 Dose: 3 ml Documented By: RUBI Amlodipine Besylate (Amlodipine Besylate 10 Mg Tablet) 10 mg PO BEDTIME [facility]REIDA; Protocol Last Admin: 11/05/24 20:02 Dose: 10 mg Documented By: ANTOINRoc Atorvastatin Calcium (Atorvastatin Calcium 20 Mg Tablet) 20 mg PO DAILY FREIDA Last Admin: 11/06/24 08:22 Dose: 20 mg Documented By: DEJAHPACarmen Bumetanide (Bumetanide 1 Mg Tablet) 2 mg PO DAILY [facility]; Protocol Last Admin: 11/06/24 08:22 Dose: 2 mg Documented By: GAVIOTA Calcium Carbonate (Calcium Carbonate 750 Mg Tab.Chew) 750 mg PO Q4H PRN PRN Reason: Heartburn Ceftriaxone Sodium (Ceftriaxone Sodium 1 Gm Vial) 1 gm IVPUSH Q24H FREIDA Last Admin: 11/06/24 16:47 Dose: 1 gm Documented By: GAVIOTA Clonidine HCl (Clonidine Hcl 0.1 Mg Tablet) 0.1 mg PO TID [facility]; Protocol Last Admin: 11/06/24 14:51 Dose: 0.1 mg Documented By: GAVIOTA Doxycycline Monohydrate (Doxycycline Monohydrate 100 Mg Capsule) 100 mg PO Q12H [facility] Last Admin: 11/06/24 16:46 Dose: 100 mg Documented By: GAVIOTA Ferrous Sulfate (Ferrous Sulfate 324 Mg Tablet.Dr) 324 mg PO DAILY [facility] Last Admin: 11/06/24 08:21 Dose: 324 mg Documented By: GAVIOTA Guaifenesin/Codeine Phosphate (Guaifen/Codeine Sf 200/20/10ml 10 Ml Liquid) 5 ml PO Q4H PRN PRN Reason: Cough Last Admin: 11/04/24 20:24 Dose: 5 ml Documented By: RENETTA Heparin Sodium (Porcine) (Heparin Sodium,Porcine 5,000 Unit/Ml Vial) 5,000 unit SUBCUT Q8H [facility] Last Admin: 11/06/24 16:46 Dose: 5,000 unit Documented By: GAVIOTA Hydralazine HCl (Hydralazine Hcl 20 Mg/Ml Vial) 10 mg IVPUSH Q6H PRN; Protocol PRN Reason: SBP >180 Hydralazine HCl (Hydralazine Hcl 50 Mg Tablet) 100 mg PO TID [facility]; Protocol Last Admin: 11/06/24 14:51 Dose: 100 mg Documented By: GAVIOTA Magnesium Hydroxide (Milk Of Magnesia 30 Ml Oral.Susp) 30 ml PO DAILY PRN PRN Reason: Constipation Melatonin (Melatonin 3 Mg Tablet) 6 mg PO BEDTIME PRN PRN Reason: Insomnia Pt Own Med ( Abiraterone 250 Mg Tablet) 1,000 mg PO BEDTIME [facility] Last Admin: 11/05/24 21:46 Dose: 1,000 mg Documented By: ANTOINRoc Ondansetron HCl (Ondansetron Hcl 4 Mg/2 Ml Vial) 4 mg IVPUSH Q8H PRN PRN Reason: Nausea and Vomiting Prednisone (Prednisone 5 Mg Tablet) 5 mg PO DAILY [facility] Last Admin: 11/06/24 08:22 Dose: 5 mg Documented By: GAVIOTA Ropinirole HCl (Ropinirole Hcl 2 Mg Tablet) 2 mg PO TID [facility] Last Admin: 11/06/24 14:51 Dose: 2 mg Documented By: GAVIOTA Sevelamer Carbonate (Sevelamer Carbonate Tablet 800 Mg Tablet) 800 mg PO TIDWM [facility] Last Admin: 11/06/24 16:47 Dose: 800 mg Documented By: GAVIOTA Sodium Chloride (0.9 % Sodium Chloride Flush 3 Ml Syringe) 3 ml IVFLUSH QSHIFT [facility] Last Admin: 11/06/24 16:47 Dose: 3 ml Documented By: GAVIOTA Labs 11/03/24 10:02 11/06/24 05:09 Labs: Laboratory Results - last 24 hr 11/06/24 05:09 Anion Gap 17 Estim Creat Clear Calc 12.6 Estimated GFR 12 Random Glucose 101 Calcium 9.4 Assessment and Plan (1) Multifocal pneumonia: Status: Acute Plan 64-year-old male with a PMH significant for?HFrEF, ESRD on HD M/W/, prostate cancer with mets to the bone, anemia of chronic disease, HTN, HLD, hx of erosive gastritis, and restless leg syndrome who presents to the ED with?worsening SOB, THACKER, and cough with the past few days. Pt will be admitted to the hospital for treatment and further evaluation of acute hypoxic respiratory failure in the setting of multifocal pneumonia. Acute hypoxic respiratory failure in the setting of multifocal pneumonia, persistent hypoxia CTA negative for PE but showed multiple areas of ground-glass opacities suggestive infectious vs inflammatory etiology blood cultures negative @24hrs continue doxycycline and ceftriaxone, started 11/03/2024, nebs , guaifenesin Titrate supplemental O2 >92, wean as tolerated Monitor respiratory status ESRD on HD MWF Nephrology consulted for HD session RLS:continue ropinirole HTN uncontrolled amlodipine , adjusted hydralazine 100 mg tid ,adjusted clonidine 0.1 mg tid . nephrology following VTE ppx UFH ongoing need for stay- Acute hypoxic respiratory failure in the setting of multifocal pneumonia-need oxygen,iv antibiotics and respiratory status not optimal yet. Quality Stroke Does the patient have a stroke diagnosis?: No VTE Prior VTE?: No VTE Risk Level:: Medical - moderate - high VTE Device Contraindication: Treatment Not Indicated VTE Drug Contraindication: N/A - Med Ordered
[2024-11-06] MEDS: ABIRATERONE 250 MG 1000 EACH PO (20:00)
[2024-11-06] MEDS: amLODIPine Besylate 10 MG TABLET PO (20:01)
[2024-11-07] MEDS: Heparin Sodium,Porcine 5,000 UNIT/ML VIAL 5000 UNIT SUBCUT ×2 (00:29→10:33)
[2024-11-07] MEDS: 0.9 % Sodium Chloride Flush 3 ML SYRINGE IVFLUSH ×2 (00:30→10:35)
[2024-11-07 03:56] VITALS: BP 166/72; PULSE 53; RESP 18; TEMP 36.3; O2SAT 90
[2024-11-07] MEDS: Doxycycline Monohydrate 100 MG CAPSULE PO (05:07)
[2024-11-07 05:14] VITALS: BMI 24.2
[2024-11-07 07:44] VITALS: BP 168/74; PULSE 55; RESP 17; TEMP 36.6; O2SAT 96
[2024-11-07] MEDS: cloNIDine HCL 0.1 MG TABLET PO (10:34)
[2024-11-07] MEDS: Ferrous Sulfate 324 MG TABLET.DR PO (10:34)
[2024-11-07] MEDS: Bumetanide 1 MG TABLET 2 MG PO (10:34)
[2024-11-07] MEDS: hydrALAZINE HCl 50 MG TABLET 100 MG PO (10:34)
[2024-11-07] MEDS: rOPINIRole HCL 2 MG TABLET PO (10:34)
[2024-11-07] MEDS: Sevelamer Carbonate Tablet 800 MG TABLET PO ×2 (10:34→13:17)
[2024-11-07 10:35] VITALS: BP 149/58
[2024-11-07] MEDS: Atorvastatin Calcium 20 MG TABLET PO (10:35)
[2024-11-07] MEDS: predniSONE 5 MG TABLET PO (10:35)
--- NOTE | 2024-11-07 10:35 | MHC.CM.PN ---
EMR REVIEWED, DC CANCELLED YESTERDAY D/T HYPOXIA OFF O2, PLAN FOR HD AND TO WEAN PT OFF O2, POSSIBLE DC LATER TODAY, CM WILL CONT TO FOLLOW.
[2024-11-07 11:24] VITALS: BP 147/65; PULSE 50; RESP 18; TEMP 36.6; O2SAT 92
--- NOTE | 2024-11-07 13:53 | PM.DS ---
DS: Providers Provider Date of Service: 11/07/24 Date of admission: 11/03/24 15:12 Date of discharge: 11/07/24 Primary care physician: CORINNE Echevarria Consults: 11/03/24 15:31 Consult to Nephrology Routine Consulting Provider: [facility] Reason for consultation: ESRD on HD MWF, last dialyzed on yesterday on Thursday 11/02 DS: Diagnosis Discharge Diagnosis (1) ESRD (end stage renal disease): Status: Inactive (2) Pneumonia: Status: Acute (3) Anemia: Status: Inactive DS: Summary Hospital Course Hospital Course: admission hpi Attending physician on admission: Stevie Ordoñez Chief Complaint: SOB Pt is a 64-year-old male with a PMH significant for?HFrEF, ESRD on HD M/W/F, prostate cancer with mets to the bone, anemia of chronic disease, HTN, HLD, hx of erosive gastritis, and restless leg syndrome who presents to the ED with?worsening SOB, THACKER, and cough with the past few days. Pt reports was recently hospitalized on 09/08-09/10 for acute hypoxic respiratory failure in the setting of acute bronchitis and rhino virus infection that initially required being on high-flow overnight. Pt reports since then he has lungs never fully cleared up or returned to baseline. Has had chronic SOB, THACKER, and occasionally productive cough since then, though has significantly worsened in the past 3 days. Pt reports he simply ?can not breathe? and has been unable to sleep due to difficulty breathing and cough x2 nights. No fever or chills. Some chest tightness associated with deep breathing and cough. Pt denies any pulmonary diagnosis. Quit smoking over 15 years ago. Denies chest pain/pressure, palpitations. No nausea, vomiting, abdominal pain. Pt received dialysis yesterday for a full session, though he notes he is still approximately 1 kilo above baseline. In the ED pt was initially tachypneic at 22, hypertensive as high as 187/82, and desatting to 85% on RA. Labs were significant for overall grossly unremarkable and around baseline for pt. Serial troponins elevated at 86.6 with repeat flat at 73.9, similar to prior. BNP elevated at 4986, similar to prior. Creatinine 4.35, improved from prior of 5.67. T bili 1.4, LFTs otherwise WNL. Lactic acid WNL at 0.8. No leukocytosis. Stable normocytic anemia. No significant electrolyte abnormalities. Tested negative for flu, COVID, RSV. Full respiratory panel pending. CXR showed multifocal bilateral pulmonary opacities concerning for infection vs edema. Also showed small right pleural effusion and suspicious lesion in proximal left humerus. CTA of chest found no pulmonary embolus, though showed moderate right and small left pleural effusions with adjacent compressive atelectasis and/or consolidations. Additionally showed hazy bilateral ground-glass opacities, multiple right upper and left lower lobe nodular ground-glass opacities, and bilateral septal thickening secondary to inflammatory/infection or edema, and right middle lobe atelectasis and/or infiltrate. EKG demonstrated normal sinus rhythm without evidence of significant ischemic changes. Pt was treated with DuoNebs, allopurinol, ceftriaxone, and doxycycline. Pt will be admitted to the hospital for treatment and further evaluation of acute hypoxic respiratory failure in the setting of multifocal pneumonia. hospital course: A 64-year-old male with a past medical history of heart failure with reduced ejection fraction (HFrEF), end-stage renal disease (ESRD) on hemodialysis (M/W/F), metastatic prostate cancer (to bone), anemia of chronic disease, hypertension, hyperlipidemia, erosive gastritis, and restless leg syndrome presented to the emergency department with worsening shortness of breath, dyspnea on exertion (THACKER), and cough over the past few days. He was admitted for acute hypoxic respiratory failure secondary to multifocal pneumonia. He was started on empiric IV antibiotics with Doxycycline and Ceftriaxone, which were well tolerated and clinically effective. Cultures remained negative, white blood cell count stayed within normal limits, and his oxygen saturation improved, allowing for successful weaning off supplemental oxygen. At this time, he is clinically improving and will be transitioned to oral Ceftin (Cefuroxime) and Doxycycline to complete a 7-day total antibiotic course. ESRD on HD MWF Nephrology consulted for HD session RLS:continue ropinirole HTN uncontrolled amlodipine , adjusted hydralazine 100 mg tid ,adjusted clonidine 0.1 mg tid . nephrology following VTE ppx UFH ongoing need for stay- Acute hypoxic respiratory failure in the setting of multifocal pneumonia-need oxygen,iv antibiotics and respiratory status not optimal yet. Time Attestation Discharge Coordination Time (in mins): 35 Quality: Safe Use of Opioids Does Pt have an Active Cancer Diagnosis on the Problem List?: No Quality: Stroke Does the patient have a stroke diagnosis?: No Physical Exam Vital Signs: Vital Signs: Selected Entries 11/07/24 11:24 Temperature 97.9 F Pulse Rate 50 Respiratory Rate 18 Blood Pressure 147/65 H Pulse Oximetry 92 Oxygen Delivery Me thod Room Air Appearance: Alert. Oriented X3. cvs: rrr, [id number] . res:air entry diminshed lower lungs. abd: soft ,nt, bs present. ext pulses present , no cyanosis . neuro: axo3 , nonfocal. DS: Data Data Completed and Pending Completed studies during hospitalization [Text1]: Procedures Labs on day of discharge: Laboratory Results - last 24 hr 11/06/24 05:09 Sodium 137 Potassium 3.8 Chloride 98 Carbon Dioxide 26 Anion Gap 17 BUN 45 H Creatinine 4.80 H* Estim Creat Clear Calc 12.6 Estimated GFR 12 Random Glucose 101 Calcium 9.4 Preliminary micro results at discharge 11/03/24 10:01 Blood Culture - Preliminary Blood - Venous No growth after 48 hours. 11/03/24 10:01 Blood Culture - Preliminary Blood - Venous No growth after 48 hours. Discharge Plan Discharge Anticipated Discharge Date/Time: 11/06/24 13:51 Patient Disposition: Home, Self-Care Discharge Diagnosis: Acute hypoxia, pneumonia Referrals: Andie Whitmore FNP [Primary Care Provider] - 1 Week Discharge Medications: New doxycycline monohydrate 100 mg capsule 100 mg PO BID Qty: 10 0RF cefuroxime axetil 500 mg tablet 500 mg PO DAILY 5 Days Qty: 5 0RF Rx Instructions: takes daily, on dialysis days take it after dialysis Continued bumetanide 2 mg tablet 2 mg PO DAILY sevelamer carbonate 800 mg tablet 800 mg PO TIDWM PreserVision AREDS-2 250-90-40-1 mg Capsule 2 tab PO BEDTIME ropinirole 2 mg tablet 2 mg PO TID Rx Instructions: ADDITIONAL FOR BEFORE DIAYLSIS hydralazine 50 mg tablet 100 mg PO BID albuterol sulfate [Ventolin HFA] 90 mcg/actuation HFA aerosol inhaler 2 puff inhalation Q4H PRN (Reason: wheezing) rosuvastatin 5 mg tablet 5 mg PO DAILY Jublia 10 % solution with applicator 1 appl topical DAILY prednisone 5 mg tablet 5 mg PO DAILY abiraterone 250 mg tablet 1,000 mg PO BEDTIME Rx Instructions: must be taken on empty stomach, at least 1 hr before or 2 hrs after a meal/food Mucus DM 30-600 mg Tablet Extended Release 12 Hr 2 tab PO BID Qty: 20 1RF ferrous sulfate 324 mg (65 mg iron) Tablet,Delayed Release (Dr/Ec) 324 mg PO DAILY Qty: 90 0RF (DME) blood pressure test kit-large Kit See Rx Instructions .ROUTE DAILY Qty: 1 Rx Instructions: As directed amlodipine 10 mg tablet 10 mg PO BEDTIME Discharge Orders: Discharge Order (Routine); Ordered 11/06/24 Ordered By: Douglas Lagunas Diet: Advance to usual diet Activity on Discharge: As tolerated Stand Alone Forms: Patient Portal Discharge page Print Language: [place] Care Plan Goals: recovery from pneumonia Health Concerns: pneumonia with hypoxia Plan of Treatment: take doxycyline 100 mg twice daily take Cefuroxime 500 mg daily, on dialysis days( Tuesday, Tuesday and Tuesday) take it after dialysis follow up with your Doctor in a week go to dialysis as usual Assessment: see above
== END 2024-11-07 15:08 | disposition home or self-care (01) | DRG 193 ==
LOC: HO.ED 13:53 → HO.EDOVER 15:39 → HO.IMC 11-04 15:55
PROVIDERS: Physician Assistant Medical; Admitting Provider Student in an Organized Health Care Education/Training Program; Emergency Provider Emergency Medicine Emergency Medical Services; PCP Registered Nurse; Visit Provider Internal Medicine
DX: J18.9 Pneumonia, unspecified organism (principal); J96.01 Acute respiratory failure with hypoxia; N18.6 End stage renal disease; I13.2 Hypertensive heart and chronic kidney disease with heart failure and with stage 5 chronic kidney disease, or end stage renal disease; I50.22 Chronic systolic (congestive) heart failure; J91.8 Pleural effusion in other conditions classified elsewhere; J98.11 Atelectasis; C79.51 Secondary malignant neoplasm of bone; G25.81 Restless legs syndrome; D63.1 Anemia in chronic kidney disease; C61 Malignant neoplasm of prostate; Z91.158 Patient's noncompliance with renal dialysis for other reason; Z20.822 Contact with and (suspected) exposure to COVID-19; Z99.2 Dependence on renal dialysis; Z79.899 Other long term (current) drug therapy
CPT/HCPCS: 0241U; 36415; 71045; 71275; 80048; 80076; 82803; 83605; 83690; 83735; 83880; 84484; 85025; 87040; 87633; 90999; 93005; 94640; 99285; J0360; J0696; J1644; Q9967

== ENCOUNTER → 2024-11-03 09:22 | Outpatient (BNV) | payer MEDICARE, MEDICAID, SELFPAY | PROVIDERS: Admitting Provider Student in an Organized Health Care Education/Training Program; Emergency Provider Emergency Medicine Emergency Medical Services; PCP Registered Nurse; Visit Provider Internal Medicine | DX: I51.7 Cardiomegaly (principal) | CPT/HCPCS: 93010 ==

== ENCOUNTER → 2024-11-03 09:22 | Outpatient (BNV) | payer MEDICARE, MEDICAID, SELFPAY | PROVIDERS: Emergency Provider Emergency Medicine Emergency Medical Services; PCP Registered Nurse; Visit Provider Radiology Diagnostic Radiology | DX: J90 Pleural effusion, not elsewhere classified (principal); R91.8 Other nonspecific abnormal finding of lung field | CPT/HCPCS: 71045; 71275 ==

== ENCOUNTER → 2024-11-03 15:12 | Outpatient (BNV) | payer MEDICARE, MEDICAID, SELFPAY | PROVIDERS: Admitting Provider Student in an Organized Health Care Education/Training Program; Emergency Provider Emergency Medicine Emergency Medical Services; PCP Registered Nurse; Visit Provider Student in an Organized Health Care Education/Training Program | DX: J18.9 Pneumonia, unspecified organism (principal) | CPT/HCPCS: 99232; 99239 ==

== ENCOUNTER 2024-11-20 18:18 | Inpatient (IN) | payer MEDICARE, MEDICAID, SELFPAY ==
[2024-11-20] VITALS (7 sets, daily range): BP systolic 168–215; BP diastolic 75–99; PULSE 63–74; RESP 12–24; TEMP 36.5–37.2; O2SAT 87–95; BMI 24.7
--- NOTE | ~2024-11-20 | XR_ITS ---
CLINICAL HISTORY: SOB. Pneumonia? 1 view chest x-ray Comparison: None Findings: Mild cardiomegaly. Diffuse interstitial prominence in both lungs. Small bilateral pleural effusions, right more than left. No pneumothorax or focal consolidation. No acute fracture. IMPRESSION: Mild cardiomegaly. Diffuse interstitial prominence in both lungs. Small bilateral pleural effusions, right more than left. findings are concerning for CHF/fluid overload. This document has been electronically signed by: Sin Schmidt MD on 11/20/2024 19:00:53
--- NOTE | ~2024-11-20 | XR_ITS ---
CLINICAL HISTORY: Follow up on pleural effusi Exam: PA and lateral views of the chest. Comparison: Chest CT November 21, 2023. Findings: Cardiac silhouette is [id number] enlarged. Pleural effusion seen on the patient's recent chest CT are almost completely resolved. Edema pattern is also nearly completely resolved. There remains mild perihilar bronchial wall thickening and interstitial prominence. No pneumothorax. Impression: Improved congestive heart failure. This document has been electronically signed by: Celio Barlow MD on 11/25/2024 09:12:02
--- NOTE | ~2024-11-20 | CT_ITS ---
CLINICAL HISTORY: ? PE. pt on dialyisis f CT angiography chest with contrast. 3D Postprocessing. Comparison: CT/SR - CT ANGIO CHEST PE PROTOCOL - 11/03/24 12:07 EDT Findings: Moderate cardiomegaly. RV/LV ratio is normal. The thoracic aorta is normal caliber. No acute pulmonary embolus. The visualized thyroid and mediastinum are unremarkable. Diffuse interstitial thickening and patchy ground-glass opacities in both lungs. Moderate right and small left pleural effusions. Patchy consolidation of the left upper lobe posteriorly as well as left lower lobe superior segment. The upper abdomen is unremarkable. No acute fractures. IMPRESSION: 1. No pulmonary embolus. No acute aortic syndrome. 2. Moderate cardiomegaly, diffuse interstitial thickening and patchy ground-glass opacities in both lungs and moderate right and small left pleural effusions concerning for pulmonary edema/fluid overload, Grossly unchanged in the interval.. 3. Patchy consolidation of the left upper lobe posteriorly as well as left lower lobe superior segment may represent superimposed airspace disease such as pneumonia or aspiration, Grossly unchanged in the interval. This document has been electronically signed by: Sin Schmidt MD on 11/20/2024 22:31:17
--- NOTE | 2024-11-20 18:38 | ECG_ITS ---
Test Reason : SOB Blood Pressure : */* mmHG Vent. Rate : 67 BPM Atrial Rate : 67 BPM P-R Int : 184 ms QRS Dur : 96 ms QT Int : 440 ms P-R-T Axes : 74 -23 74 degrees QTcB Int : 464 ms Sinus rhythm with occasional , and consecutive Premature ventricular complexes Possible Left atrial enlargement Minimal voltage criteria for LVH, may be normal variant ( [place] product ) Abnormal ECG When compared with ECG of 03-Nov-2024 09:52, Premature ventricular complexes are now Present Referred By: Zuhair Batista Electronically Signed By: PAULINA WARREN
--- NOTE | 2024-11-20 18:40 | ED.GENADULT ---
HPI - General Adult General Chief complaint: Dyspnea Stated complaint: ?Pneumonia/Difficulty breathing Time Seen by Provider: 11/20/24 20:06 Related Data Home Medications ?Medication ?Instructions ?Recorded ?Confirmed blood pressure test kit-large #1 ea 03/18/22 09/08/24 amlodipine 10 mg tablet 10 mg PO BEDTIME 12/17/22 11/03/24 ropinirole 2 mg tablet 2 mg PO TID 08/04/23 11/03/24 abiraterone 250 mg tablet 1,000 mg PO BEDTIME 09/08/24 11/03/24 albuterol sulfate 90 mcg/actuation 2 puff inhalation Q4H PRN wheezing 09/08/24 11/03/24 aerosol inhaler (Ventolin HFA) efinaconazole 10 % topical 1 appl topical DAILY 09/08/24 11/03/24 solution with applicator (Jublia) hydralazine 50 mg tablet 100 mg PO BID 09/08/24 11/03/24 prednisone 5 mg tablet 5 mg PO DAILY 09/08/24 11/03/24 rosuvastatin 5 mg tablet 5 mg PO DAILY 09/08/24 11/03/24 bumetanide 2 mg tablet 2 mg PO DAILY 11/03/24 11/03/24 sevelamer carbonate 800 mg tablet 800 mg PO TIDWM 11/03/24 11/03/24 vit C 250 mg-vit E 90 mg-zinc 40 2 tab PO BEDTIME 11/03/24 11/03/24 mg-copper 1 [id number] capsule (PreserVision AREDS-2) Previous Rx's ?Medication ?Instructions ?Recorded dextromethorphan-guaifenesin 30 2 tab PO BID #20 tabs 09/10/24 mg-600 mg tablet extended hr (Mucus DM) ferrous sulfate 324 mg (65 mg 324 mg PO DAILY #90 tabs 09/10/24 iron) tablet,delayed release cefuroxime axetil 500 mg tablet 500 mg PO DAILY 5 days #5 tabs 11/06/24 doxycycline monohydrate 100 mg 100 mg PO BID #10 caps 11/06/24 capsule Allergies Allergy/AdvReac Type Severity Reaction Status Date / Time No Known Allergies Allergy Verified 11/20/24 18:37 [No Known Allergies*] [facility] Past Medical History Medical History Anemia ESRD (end stage renal disease) HTN (hypertension) Creatinine elevation Urinary retention History of upper gastrointestinal bleeding A-V fistula Fusion of lumbar spine Chronic kidney disease Urinary tract infection Enlarged prostate Kidney disease Elevated PSA Anemia Metabolic acidosis Bilateral hydronephrosis Hypocalcemia Acute anemia Acute kidney injury Surgical History History of fusion of cervical spine Hx of esophagogastroduodenoscopy History of transurethral resection of prostate S/P arteriovenous (AV) fistula creation History of hip replacement, total Social History Social History Household Members: Family Household Members Other:: 2 Housing: House Housing Other:: mobile home Do you presently have visiting nurse or other home services: No Alcohol intake: former Patient Tobacco Use Status: Former Tobacco user Tobacco use type: Cigarette Years Smoked: 50 Smoked in Last 30 Days: No e-Cigarette/Vaping Use: Former Use Use of substances other than those prescribed or required for medical reasons: Yes Substance Use Type: Marijuana Advance Directives: No Advance Directives Information Provided: No service: No Current occupational status: disabled Physical Exam ED Vital Signs: Vital Signs - 24 hr 11/20/24 18:35 11/20/24 20:05 11/20/24 20:55 Temperature 98.9 F 98.7 F Pulse Rate 74 63 66 Respiratory Rate 24 H 12 19 Blood Pressure 168/75 H 192/96 H 197/94 H Pulse Oximetry 90 L 95 87 L Oxygen Delivery Method Room Air Nasal Cannula Nasal Cannula Oxygen Flow Rate 2 3 11/20/24 21:42 11/20/24 22:43 Temperature 97.9 F Pulse Rate 70 72 Respiratory Rate 23 H 21 H Blood Pressure 200/92 H 210/90 H Pulse Oximetry 93 90 L Oxygen Delivery Method Nasal Cannula Oxymask Oxygen Flow Rate 3 6 BMI result Body Mass Index 24.7 Course Course Course Narrative: RME: 64 yold with recent pnuemoni with Pmh of CKD, Pneumonia, CHF , and ESRD presents to the ED for shortness of breath. 02 saturaton 92% on room air. labs EKG, chestxra ordered. positige for bilataral pittting edema. charge nurse informed. Medications Administered Discontinued Medications Generic Name Dose Route Start Last Admin Trade Name Harry PRN Reason Stop Dose Admin Iohexol 65 ml 11/20/24 21:48 11/20/24 21:49 Iohexol 350 Mg/Ml 100 Ml Infus..Btl IV 11/20/24 21:49 65 ml ONCE ONE Administration Procedures Procedure Narrative Procedure Narrative: I was asked to help with IV access. I was able to place a 2.75inch, 20 gauge IV in the right upper arm. There was good blood return and the line flushed well post procedure, There were no complications Medical Decision Making Lab Data 11/20/24 19:10 11/20/24 19:10 Labs: Lab Results 11/20/24 Range/Units 19:10 WBC 7.2 (4.8-10.8) X10*3/uL RBC 3.39 L (4.60-5.80) X10*6/uL Hgb 10.0 L (14.0-18.0) g/dl Hct 30.0 L (42.0-52.0) % MCV 88.5 (80.0-98.0) fL MCH 29.5 (27.0-33.0) pg MCHC 33.3 (31.0-36.0) g/dl RDW 20.2 H (11.0-16.0) % Plt Count 222 (160-400) X10*3/uL MPV 10.8 (9.4-12.4) fL Immature Gran % (Auto) 0.4 (0.0-0.4) % Neut % (Auto) 77.9 H (45-73) % Lymph % (Auto) 12.8 L (20-40) % Hubbard % (Auto) 6.1 (2-11) % Eos % (Auto) 1.7 (0-4) % Baso % (Auto) 1.1 (0-2) % Lymph # (Auto) 0.9 L (1.2-4.9) X10*3/uL Hubbard # (Auto) 0.4 (0.1-1.2) X10*3/uL Eos # (Auto) 0.1 (0.0-0.4) X10*3/uL Baso # (Auto) 0.1 (0.0-0.2) X10*3/uL Abs Immat Gran (auto) 0.03 (0.00-0.03) X10*3/uL Absolute Neuts (auto) 5.6 (2.0-8.3) x10*3/uL Absolute Nucleated RBC 0.000 (0.0-0.012) X10*3/uL Nucleated RBC % (auto) 0.0 (0.0-0.2) /100WBC PT 11.2 (10.9-12.4) SEC INR 1.0 (0.9-1.1) APTT 53.3 H (26.0-36.8) SEC Sodium 130 L (135-145) mmol/L Potassium 4.1 (3.3-5.1) mmol/L Chloride 91 L (96-108) mmol/L Carbon Dioxide 19 L (22-29) mmol/L Anion Gap 24 H (12-20) BUN 46 H (9-16) mg/dL Creatinine 5.06 H* (0.5-1.4) mg/dL Estim Creat Clear Calc 12.5 Estimated GFR 12 Random Glucose 124 H (60-115) mg/dL Calcium 9.5 (8.4-10.2) mg/dL Total Bilirubin 0.5 (0.0-1.0) mg/dL AST 17 (5-37) U/L ALT 6 (0-40) U/L Alkaline Phosphatase 111 (39-117) U/L Troponin I High Sens 57.8 H (<3.5-35.0) ng/L B-Natriuretic Peptide 7929 H (<100) pg/mL Total Protein 6.4 L (6.5-8.0) g/dL Albumin 3.9 (3.5-5.0) g/dL Influenza Type A (PCR) NEGATIVE (Negative) Influenza Type B (PCR) NEGATIVE (Negative) RSV RNA Qual (PCR) NEGATIVE (Negative) SARS-CoV-2 RNA (RT-PCR) NEGATIVE (Negative) Discharge Plan Discharge Clinical Impression: Pneumonia, End stage chronic kidney disease Patient Disposition: Admitted As Inpatient Print Language: Welsh
--- NOTE | 2024-11-20 18:46 | PC.NURSE ---
PLACED ON 2LNC
[2024-11-20 19:16] LABS: MANUAL DIFF FLAG NO
[2024-11-20 19:24] LABS: Prothrombin Time 11.2 SEC (10.9-12.4)
[2024-11-20 19:25] LABS: Basophils Absolute Auto 0.1 X10*3/uL (0.0-0.2); Basophils Percent Auto 1.1 % (0-2); Eosinophils Absolute Auto 0.1 X10*3/uL (0.0-0.4); Eosinophils Percent Auto 1.7 % (0-4); Imm Gran Abs Auto 0.03 X10*3/uL (0.00-0.03); Imm Gran Pct Auto 0.4 % (0.0-0.4); Lymphocytes Absolute Auto 0.9 X10*3/uL (1.2-4.9); Lymphocytes Percent Auto 12.8 % (20-40); Mean Corpuscular HGB Conc 33.3 g/dl (31.0-36.0); Mean Corpuscular Hemoglobin 29.5 pg (27.0-33.0); Mean Corpuscular Volume 88.5 fL (80.0-98.0); Mean Platelet Volume 10.8 fL (9.4-12.4); Monocytes Absolute Auto 0.4 X10*3/uL (0.1-1.2); Monocytes Percent Auto 6.1 % (2-11); Neutrophils Absolute Auto 5.6 x10*3/uL (2.0-8.3); Neutrophils Percent Auto 77.9 % (45-73); Platelet Count 222 X10*3/uL (160-400); Red Blood Count 3.39 X10*6/uL (4.60-5.80); Red Cell Distribution Width 20.2 % (11.0-16.0); White Blood Count 7.2 X10*3/uL (4.8-10.8)
[2024-11-20 19:27] LABS: Partial Thromboplastin Time 53.3 SEC (26.0-36.8)
[2024-11-20 19:42] LABS: Troponin-I High Sensitivity 57.8 ng/L (<3.5-35.0)
[2024-11-20 19:48] LABS: Alanine Aminotransferase 6 U/L (0-40); Albumin Level 3.9 g/dL (3.5-5.0); Alkaline Phosphatase 111 U/L (39-117); Anion Gap 24 (12-20); Aspartate Amino Transferase 17 U/L (5-37); Bilirubin Total 0.5 mg/dL (0.0-1.0); Blood Urea Nitrogen 46 mg/dL (9-16); Calcium 9.5 mg/dL (8.4-10.2); Carbon Dioxide 19 mmol/L (22-29); Chloride 91 mmol/L (96-108); Creatinine Clr Calc Pharmacy 12.5; Estimated Glomerular Filt Rate 12; Glucose Random 124 mg/dL (60-115); Potassium 4.1 mmol/L (3.3-5.1); Sodium 130 mmol/L (135-145); Total Protein 6.4 g/dL (6.5-8.0)
[2024-11-20 19:56] LABS: Influenza A PCR NEGATIVE (Negative); Influenza B PCR NEGATIVE (Negative); Resp Syncy Virus RNA Qual PCR NEGATIVE (Negative); SARS COV2 PCR INHOUSE NEGATIVE (Negative)
[2024-11-20 20:03] LABS: B Type Natriuretic Peptide 7929 pg/mL (<100)
--- NOTE | 2024-11-20 20:15 | ED_ITS ---
HPI - SOB/Dyspnea General Chief Complaint: Dyspnea Stated Complaint: ?Pneumonia/Difficulty breathing Time Seen by Provider: 11/20/24 20:06 History of Present Illness HPI Narrative: Pt is a 64-year-old male with a PMH significant for?HFrEF, ESRD on HD M/W/F, prostate cancer with mets to the bone, anemia of chronic disease, HTN, HLD, hx of erosive gastritis, and restless leg syndrome who presents to the ED with?worsening SOB, THACKER, and cough with the past few days. Related Data Home Medications ?Medication ?Instructions ?Recorded ?Confirmed blood pressure test kit-large #1 ea 03/18/22 09/08/24 amlodipine 10 mg tablet 10 mg PO BEDTIME 12/17/22 11/03/24 ropinirole 2 mg tablet 2 mg PO TID 08/04/23 11/03/24 abiraterone 250 mg tablet 1,000 mg PO BEDTIME 09/08/24 11/03/24 albuterol sulfate 90 mcg/actuation 2 puff inhalation Q4H PRN wheezing 09/08/24 11/03/24 aerosol inhaler (Ventolin HFA) efinaconazole 10 % topical 1 appl topical DAILY 09/08/24 11/03/24 solution with applicator (Jublia) hydralazine 50 mg tablet 100 mg PO BID 09/08/24 11/03/24 prednisone 5 mg tablet 5 mg PO DAILY 09/08/24 11/03/24 rosuvastatin 5 mg tablet 5 mg PO DAILY 09/08/24 11/03/24 bumetanide 2 mg tablet 2 mg PO DAILY 11/03/24 11/03/24 sevelamer carbonate 800 mg tablet 800 mg PO TIDWM 11/03/24 11/03/24 vit C 250 mg-vit E 90 mg-zinc 40 2 tab PO BEDTIME 11/03/24 11/03/24 mg-copper 1 [id number] capsule (PreserVision AREDS-2) Previous Rx's ?Medication ?Instructions ?Recorded dextromethorphan-guaifenesin 30 2 tab PO BID #20 tabs 09/10/24 mg-600 mg tablet extended [id number] hr (Mucus DM) ferrous sulfate 324 mg (65 mg 324 mg PO DAILY #90 tabs 09/10/24 iron) tablet,delayed release cefuroxime axetil 500 mg tablet 500 mg PO DAILY 5 days #5 tabs 11/06/24 doxycycline monohydrate 100 mg 100 mg PO BID #10 caps 11/06/24 capsule Allergies Allergy/AdvReac Type Severity Reaction Status Date / Time No Known Allergies Allergy Verified 11/20/24 18:37 [No Known Allergies*] Review of Systems 2 Review of Systems: Positive shortness of breath generalized malaise Yes all other systems are reviewed and are negative PMFSH Past Medical History Attestation statement: The following information was validated with the patient. Medical History Anemia ESRD (end stage renal disease) HTN (hypertension) Creatinine elevation Urinary retention History of upper gastrointestinal bleeding A-V fistula Fusion of lumbar spine Chronic kidney disease Urinary tract infection Enlarged prostate Kidney disease Elevated PSA Anemia Metabolic acidosis Bilateral hydronephrosis Hypocalcemia Acute anemia Acute kidney injury Surgical History History of fusion of cervical spine Hx of esophagogastroduodenoscopy History of transurethral resection of prostate S/P arteriovenous (AV) fistula creation History of hip replacement, total Social History Social History Household Members: Family Household Members Other:: 2 Housing: House Housing Other:: mobile home Do you presently have visiting nurse or other home services: No Alcohol intake: former Patient Tobacco Use Status: Former Tobacco user Tobacco use type: Cigarette Years Smoked: 50 Smoked in Last 30 Days: No e-Cigarette/Vaping Use: Former Use Use of substances other than those prescribed or required for medical reasons: Yes Substance Use Type: Marijuana Advance Directives: No Advance Directives Information Provided: No service: No Current occupational status: disabled Physical Exam 2 Vital Signs: Vital Signs: Last Vital Signs Temp 97.9 F 11/20/24 21:42 Pulse 72 11/20/24 22:43 Resp 21 H 11/20/24 22:43 BP 210/90 H 11/20/24 22:43 Pulse Ox 90 L 11/20/24 22:43 O2 Del Method Oxymask 11/20/24 22:43 O2 Flow Rate 6 11/20/24 22:43 BMI result Body Mass Index 24.7 Appearance: Alert. Oriented X3. No acute distress. Eyes: Pupils equal, round and reactive to light. ENT: Pharynx normal. Neck: Normal inspection. Neck supple. No lymph nodes noted. No crepitus CVS: Normal heart rate and rhythm. Pulses normal. Normal S1 and S2 Respiratory: Diminished breath sounds bilaterally minimal increase in work of breathing Abdomen: Soft and nontender. No rigidity. No distention. good BS x4 Skin: Skin warm and dry. Normal skin color. Normal skin turgor. Extremities: No lower extremity edema. Neurovascular intact to all extremities. No Lacerations. No Rash Neuro: Oriented X 3. No motor deficit. No sensory deficit. Moving all extermities. No slurred speech Medications Administered Discontinued Medications Generic Name Dose Route Start Last Admin Trade Name Freq PRN Reason Stop Dose Admin Iohexol 65 ml 11/20/24 21:48 11/20/24 21:49 Iohexol 350 Mg/Ml 100 Ml Infus..Btl IV 11/20/24 21:49 65 ml ONCE ONE Administration Medical Decision Making Medical Decision Making [facility] Narrative: Patient is a 64-year-old male presented today with having decreased oxygen saturation generalized malaise was in the hospital for pneumonia has history of end-stage renal disease on dialysis baseline not on oxygen. Went to dialysis yesterday. Patient was on cefuroxime and doxycycline for pneumonia. Was just discharged from the hospital on the . Now feeling increasing short of breath again. Because of the history of prostate cancer now getting short of breath having low oxygenation a CTA of the chest was done. The CTA showed no acute evidence of PE it did show significant infiltrate still persistent. Has not improved from previous CTA from earlier this month. Cultures were obtained. Patient was given Lasix 100 mg of shift fluid around. Additional nitro was given. Cefepime was given for hospital-acquired pneumonia. Hospitalist team was consulted. Will require dialysis in a.m.. Currently in stable condition. Differential Diagnosis Differential Diagnoses: The differential diagnosis associated with the presentation includes End-stage renal disease, pneumonia, COPD, PE Admission/Observation Consideration of admission/observation: Escalation of care including admission/observation considered Will require admission Consult Healthcare Provider Management of the patient was discussed with: Hospitalist Lab Data [facility] Lab Attestation statement: I reviewed the patient's lab results. 11/20/24 19:10 11/20/24 19:10 Labs: Lab Results 11/20/24 Range/Units 19:10 WBC 7.2 (4.8-10.8) X10*3/uL RBC 3.39 L (4.60-5.80) X10*6/uL Hgb 10.0 L (14.0-18.0) g/dl Hct 30.0 L (42.0-52.0) % MCV 88.5 (80.0-98.0) fL MCH 29.5 (27.0-33.0) pg MCHC 33.3 (31.0-36.0) g/dl RDW 20.2 H (11.0-16.0) % Plt Count 222 (160-400) X10*3/uL MPV 10.8 (9.4-12.4) fL Immature Gran % (Auto) 0.4 (0.0-0.4) % Neut % (Auto) 77.9 H (45-73) % Lymph % (Auto) 12.8 L (20-40) % Mcdonald % (Auto) 6.1 (2-11) % Eos % (Auto) 1.7 (0-4) % Baso % (Auto) 1.1 (0-2) % Lymph # (Auto) 0.9 L (1.2-4.9) X10*3/uL Mcdonald # (Auto) 0.4 (0.1-1.2) X10*3/uL Eos # (Auto) 0.1 (0.0-0.4) X10*3/uL Baso # (Auto) 0.1 (0.0-0.2) X10*3/uL Abs Immat Gran (auto) 0.03 (0.00-0.03) X10*3/uL Absolute Neuts (auto) 5.6 (2.0-8.3) x10*3/uL Absolute Nucleated RBC 0.000 (0.0-0.012) X10*3/uL Nucleated RBC % (auto) 0.0 (0.0-0.2) /100WBC PT 11.2 (10.9-12.4) SEC INR 1.0 (0.9-1.1) APTT 53.3 H (26.0-36.8) SEC Sodium 130 L (135-145) mmol/L Potassium 4.1 (3.3-5.1) mmol/L Chloride 91 L (96-108) mmol/L Carbon Dioxide 19 L (22-29) mmol/L Anion Gap 24 H (12-20) BUN 46 H (9-16) mg/dL Creatinine 5.06 H* (0.5-1.4) mg/dL Estim Creat Clear Calc 12.5 Estimated GFR 12 Random Glucose 124 H (60-115) mg/dL Calcium 9.5 (8.4-10.2) mg/dL Total Bilirubin 0.5 (0.0-1.0) mg/dL AST 17 (5-37) U/L ALT 6 (0-40) U/L Alkaline Phosphatase 111 (39-117) U/L Troponin I High Sens 57.8 H (<3.5-35.0) ng/L B-Natriuretic Peptide 7929 H (<100) pg/mL Total Protein 6.4 L (6.5-8.0) g/dL Albumin 3.9 (3.5-5.0) g/dL Influenza Type A (PCR) NEGATIVE (Negative) Influenza Type B (PCR) NEGATIVE (Negative) RSV RNA Qual (PCR) NEGATIVE (Negative) SARS-CoV-2 RNA (RT-PCR) NEGATIVE (Negative) Independent Interpretation I performed an independent interpretation of an: EKG (Sinus heart rate is 80) and Plain X-Ray (Grossly negative) Radiology Impression Discussion of test interpretation with radiology: I have reviewed the radiologist's reading. External Record Review External record reviewed: Inpatient record Chronic Conditions Patient?s care impacted by: Diabetes and Hypertension Prostate cancer with Mets Social Determinants Patient?s care significantly limited by Social Determinants of Health including: Problems related to primary support group Critical Care Time Critical Care Time Critical Care Time: Yes Total Critical Care Time: 40 Attestation: I have personally provided 40 minutes of critical care time exclusive of time spent on separately billable procedures. ?Time includes review of lab data, radiology results, discussion with consultants, and monitoring for potential decompensation. ?Interventions were performed as documented above Discharge Plan Discharge Clinical Impression: Pneumonia, End stage chronic kidney disease Patient Disposition: Admitted As Inpatient Prescriptions: No Action bumetanide 2 mg tablet 2 mg PO DAILY sevelamer carbonate 800 mg tablet 800 mg PO TIDWM PreserVision AREDS-2 250-90-40-1 mg Capsule 2 tab PO BEDTIME doxycycline monohydrate 100 mg capsule 100 mg PO BID Qty: 10 0RF cefuroxime axetil 500 mg tablet 500 mg PO DAILY 5 Days Qty: 5 0RF Rx Instructions: takes daily, on dialysis days take it after dialysis ropinirole 2 mg tablet 2 mg PO TID Rx Instructions: ADDITIONAL FOR BEFORE DIAYLSIS hydralazine 50 mg tablet 100 mg PO BID albuterol sulfate [Ventolin HFA] 90 mcg/actuation HFA aerosol inhaler 2 puff inhalation Q4H PRN (Reason: wheezing) rosuvastatin 5 mg tablet 5 mg PO DAILY Jublia 10 % solution with applicator 1 appl topical DAILY prednisone 5 mg tablet 5 mg PO DAILY abiraterone 250 mg tablet 1,000 mg PO BEDTIME Rx Instructions: must be taken on empty stomach, at least 1 hr before or 2 hrs after a meal/food Mucus DM 30-600 mg Tablet Extended Release 12 Hr 2 tab PO BID Qty: 20 1RF ferrous sulfate 324 mg (65 mg iron) Tablet,Delayed Release (Dr/Ec) 324 mg PO DAILY Qty: 90 0RF (DME) blood pressure test kit-large Kit See Rx Instructions .ROUTE DAILY Qty: 1 Rx Instructions: As directed amlodipine 10 mg tablet 10 mg PO BEDTIME Print Language: Occitan
[2024-11-20] MEDS: iohexoL 350 MG/ML 100 ML INFUS..BTL 65 ML IV (21:49)
--- OUTSIDE RECORDS SUMMARY | 2024-11-20 22:04 | XMS_ITS | Encounter Summary ---
Author Organization [facility] Address [address] [id number] Phone Care Team Providers Care Beadworker Name Role Phone Unavailable Primary Care Provider Unavailabl e Reason for Visit * Reason Onset Date Comments Med Refill 07/17/2021 Encounter Details Date Type Department Care Team (Late st Contact Info) Description 07/17/2021 Refill [facility] [address] [place] [address] [place] [id number] Radha Palmer [address] [facility] [address] [address] [place] [address] Social History Tobacco Use Types [...]
--- OUTSIDE RECORDS SUMMARY | 2024-11-20 22:05 | XMS_ITS | Clinical Summary ---
Author Organization [employer] Address [address] [facility] [address] [place] [address] Care Team Providers Care Wall Steamer Name Role Phone WernerAndie manning CORINNE Primary Care Provider [phone] Trevor Restrepo MD Unavailable Juvenal Cr MD Unavailable Kamini Chavarria MD Unavailable [phone] Winston Bhagat DPM Unavailable Allergies No known active allergies Medications abiraterone (Zytiga) 250 MG chemo tablet Take 4 tablets by mouth 1 (one) time each day. 023 Active calcium acetate (Phoslo) 667 MG capsule TAKE 2 CAPSULE BY MOUTH WITH LARGEST MEAL OF THE DAY AND 1 CAPSULE BY MOUTH WITH MEAL AND SNACK 022 Active rOPINIRole (Requip) 2 MG tablet Take 1-2 tablets by mouth 1 (one) time each day. 023 Active sevelamer carbonate (Renvela) 800 MG tablet Take 1 tablet by mouth with breakfast, with lunch, and with evening meal. 023 Active Misc. Devices (Pulse Oximeter) miscIndications:S OB (shortness of breath) Use as needed to check oxygen level 1 each 023 Active Blood Pressure Monitor kitIndications:Pr imary hypertension Check blood pressure twice a weed. Dx hypertension 1 kit 023 Active predniSONE (Deltasone) 5 MG tablet Take 2 tablets by mouth 1 (one) time each day. Takes with abiraterone 023 Active Efinaconazole (Jublia) 10 % solutionIndicatio ns:Onychauxis,Eleonora chomycosis Apply by topical route to affected toe nails daily - may use for up to 48 weeks. Ensure complete coverage of the toenail, toenail folds, toenail bed, surrounding skin, and the undersurface of the toenail plate. 8 mL 3 024 Active bumetanide (Bumex) 2 MG tabletIndications :Heart failure with mildly reduced ejection fraction (HFmrEF) (CMS/HCC) 2 mg 2 times daily. On Non-dialysis Days 024 Active rosuvastatin (Crestor) 5 MG tabletIndications :Other hyperlipidemia Take 1 tablet (5 mg) by mouth at bedtime. (Cholesterol) 90 tablet 3 024 2024 Active Ventolin HFA 108 (90 Base) MCG/ACT inhalerIndication s:At risk for shortness of breath INHALE 2 PUFFS INTO THE LUNGS EVERY 4 HOURS NEEDED FOR WHEEZING 18 g 11 024 Active amLODIPine (Norvasc) 10 MG tablet TAKE 1 TABLET(10 MG) BY MOUTH IN THE MORNING 90 tablet 3 025 Active ferrous sulfate 324 (65 Fe) MG EC tablet Take 1 tablet by mouth Once per day. 025 Active hydrALAZINE (Apresoline) 100 MG tablet Take 1 tablet by mouth 2 times daily. 024 Active amLODIPine (Norvasc) 10 MG tablet TAKE 1 TABLET(10 MG) BY MOUTH IN THE MORNING 90 tablet 3 023 2024 Discontinued leuprolide, 6-month, (Eligard) 45 MG injection every 6 (six) months. 2024 Discontinued(M ed list cleanup (will not trigger notification to Pharmacy)) denosumab (Prolia) 60 MG/ML solution prefilled syringe Inject 60 mg under the skin every 6 (six) months. 2024 Discontinued(M ed list cleanup (will not trigger notification to Pharmacy)) hydrALAZINE (Apresoline) 50 MG tablet TAKE 1 TABLET(50 MG) BY MOUTH TWICE DAILY 180 tablet 3 024 2024 Discontinued(M ed list cleanup (will not trigger notification to Pharmacy)) Active Problems Problem Noted Date Diagnosed Date [...] Following with Podiatry - Dr. Bhagat at [facility] Jun 2024: Debridement of toenails 6-10, with plan to cont topical Jublia. RTC 3 months. Healthcare maintenance 12/12/2023 Overview (12/12/2023): Optometry: CEE 11/10/23 (Dr. Mohr). Noted trace macular edema, follow up in 3 months PSA: hx prostate CA, following with [facility] U[facility] Heart failure with mildly re duced ejection fraction (HFmrEF) 08/01/2023 Overview (12/12/2023): Nov-Jul 2023 pt experienced new onset symptoms including SOB, THACKER, swelling BLE Echo completed 07/19/23 with LVEF: 45-50% and small pericardial effusion. Pt was started on Bumex and increased fluid removal at dialysis. Minimal improvement of symptoms. CXR completed 07/19/23 with findings c/w pulmonary edema BNP elevated Jul 2023: 2,716 Following with Cards - Dr. Vicente Glasgowmex BID on non-dialysis days Exacerbation w/ Hospitalization 08/04 - 08/07/23 at [facility] ESRD on HD: communication with Dr. Cr [...] 02/18/2023 Overview (12/12/2023): Following with Dr. Restrepo ([facility]) Hx of bilateral stent placement ESRD (end stage renal disease) 11/05/2021 Assessment & Plan (04/27/2023 2:16 PM EDT): -Hemodialysis MWF at [address] [place] [address] Dialysis (first shift) -Access: Left arm basilic vein transposition performed on 08/03/2021. -Mar 2023: fistulagram performed, [facility] Vascular Dr. Blackburn. Has been working well since Assessment & Plan (12/22/2022 8:12 PM EDT): -Hemodialysis MWF at [address] [place] [address] Dialysis -Access: Left arm basilic vein transposition performed on 08/03/2021. Have started to access fistula at dialysis -Left AVF w/ +thrill/+bruit Prostate cancer metastatic to bone 11/05/2021 Assessment & Plan (07/29/2024 10:41 PM EST): [place] score ranging from 7 to 9. 10/05/21 cystoscopy with bilateral ureteral stent exchange performed by [facility] Urology Continue to follow with [facility] Urology - Dr. Restrepo Continue to follow with [facility] Heme/Onc Previously on Bicalutamide 50mg PO daily [...] with bilateral ureteral stent exchange performed by [facility] Urology ?? Continue to follow with [facility] Urology Leyla Restrepo ?? Continue to follow with [facility] Heme/Onc ?? Previously on Bicalutamide 50mg PO daily through Urology, currently taking Abiraterone ?? 01/24/23: cystoscopy with bilateral stent exchange Assessment & Plan (12/22/2022 8:13 PM EDT): ?? [place] score ranging from 7 to 9. ?? 10/05/21 cystoscopy with bilateral ureteral stent exchange performed by [facility] Urology ?? Continue to follow with [facility] Urology Leyla Restrepo ?? Continue to follow with [facility] Heme/Onc ?? Previously on Bicalutamide 50mg PO [...] Encounters Date Type Department Care Team Description 11/20/2024 Orders Only GENERIC EXTERNAL DATA DEPARTMENT Provider, Generic External Data 11/09/2024 Refill [facility] [address] [place] [address] Andie Whitmore FNP Primary hypertension (Primary Dx) 11/09/2024 Patient Outreach [facility] [address] [place] [address] Andie Whitmore FNP Transition Of Care (Tcm) (HDF scheduled.) 11/09/2024 Telephone [facility] [address], [place] [phone] Andie Whitmore FNP Hospital Follow-up 11/03/2024 Orders Only GENERIC EXTERNAL DATA DEPARTMENT Provider, Generic External Data 10/12/2024 Population Health Risk Score Community [facility] (C3) Department [address] [place] [address] [phone] Provider, Population Health Generic 10/11/2024 Orders Only GENERIC EXTERNAL DATA DEPARTMENT Provider, Generic External Data 09/27/2024 Patient Outreach [facility] [address] [place] [address] Andie Whitmore FNP Transition Of Care (Tcm) ([facility]- LVM #2) 09/19/2024 Patient Outreach [facility] [address] [place] [address] Andie Whitmore FNP Transition Of Care (Tcm) ([facility] unscheduled) 09/08/2024 Orders Only GENERIC EXTERNAL DATA [...] 07/16/2024 1:14 PM EST Plan of Treatment Upcoming Encounters Date Type Department Care Team (Late st Contact Info) Description 11/30/2024 2:00 PM EDT Office Visit [facility] [address] [place] [address] Andie Whitmore FNP [address] [place] [address] Health Maintenance Due Date Last Done Comments [...] Procedure Name Priority Date/Time Associated Diagnosis Comments B TYPE NATRIURETIC PEPTIDE (BNP) Routine 11/20/2024 7:10 PM EDT COMPREHENSIVE METABOLIC PANEL Routine 11/20/2024 7:10 PM EDT HIGH SENSITIVITY TROPONIN I Routine 11/20/2024 7:10 PM EDT APTT Routine 11/20/2024 7:10 PM EDT PROTHROMBIN TIME-INR Routine 11/20/2024 7:10 PM EDT CBC WITH AUTO DIFFERENTIAL Routine 11/20/2024 7:10 PM EDT SARS COV2/INFLUENZA A/B AND RSV RNA QL NAAT Routine 11/20/2024 7:10 PM EDT XR CHEST 1 VIEW Routine 11/20/2024 7:00 PM EDT CTA CHEST PE PROTOCAL Routine 11/03/2024 1:35 [...] Relevant to Health Maintenance Results * (ABNORMAL) High Sensitivity Troponin I (11/20/2024 7:10 PM EDT) Only the most recent of3 resultswithin the time period is included. TROPONIN I HIGH SENSITIVITY 57.8(H) <3.5 - 35.0 ng/L [facility] Comment:The [place] high sens itivity Troponin-I results should beused in conjunction with other diagnostic information suchas ECG, clinical observations and information, and patientsymptoms to aid in the diagnosis of NE. 11/20/2024 7:10 PM EDT 11/20/2024 7:15 PM EDT us Generic External Data Provider LAB BLOOD ORDERAB LES Final Result [facility] [address] [place] [address] [phone] * SARS-CoV-2 RNA, Influenza A/B, and RSV RNA, Ql NAAT (11/20/2024 7:10 PM EDT) Only the most recent of3 resultswithin the time period is included. Influenza A PCR NEGATIVE Negative [facility] Influenza B PCR NEGATIVE Negative [facility] Resp Syncy Virus RNA Qual PCR NEGATIVE Negative [facility] SARS COV2 PCR NEGATIVE Negative [facility] Comment:All test results mus t [...] use by authorized laboratories.Testing performed on the [employer] GeneXpert utilizingreal-time RT-PCR.All SARS CoV2 and positive influenza A/B results arereported to [facility]. 11/20/2024 7:10 PM EDT 11/20/2024 7:15 PM EDT us Generic External Data Provider LAB MICROBIOLOGY - GENERAL ORDERABLES Final Result [facility] [address] [place] [phone] [phone] * (ABNORMAL) CBC auto differential (11/20/2024 7:10 PM EDT) Only the most recent of3 resultswithin the time period is included. White Blood Count 7.2 4.8 - 10.8 X10*3/uL [facility] Red Blood Count 3.39(L) 4.60 - 5.80 X10*6/uL [facility] Hemoglobin 10.0(L) 14.0 - 18.0 g/dl [facility] Hematocrit 30.0(L) 42.0 - 52.0 % [facility] Mean Corpuscular Volume 88.5 80.0 - 98.0 fL [facility] Mean Corpuscular Hemoglobin 29.5 27.0 - 33.0 pg [facility] Mean Corpuscular HGB Conc 33.3 31.0 - 36.0 g/dl [facility] Red Cell Distribution Width 20.2(H) 11.0 - 16.0 % [facility] Platelet Count 222 160 - 400 X10*3/uL [facility] Mean Platelet Volume 10.8 9.4 - 12.4 fL [facility] Neutrophils Percent Auto 77.9(H) 45 - 73 % [facility] Imm Gran Pct Auto 0.4 0.0 - 0.4 % [facility] Lymphocytes Percent Auto 12.8(L) 20 - 40 % [facility] Monocytes Percent Auto 6.1 2 - 11 % [facility] Eosinophils Percent Auto 1.7 0 - 4 % [facility] Basophils Percent Auto 1.1 0 - 2 % [facility] NRBC Pct Auto 0.0 0.0 - 0.2 /100WBC [facility] Neutrophils Absolute Auto 5.6 2.0 - 8.3 x10*3/uL [facility] Imm Gran Abs Auto 0.03 0.00 - 0.03 X10*3/uL [facility] Lymphocytes Absolute Auto 0.9(L) 1.2 - 4.9 X10*3/uL [facility] Monocytes Absolute Auto 0.4 0.1 - 1.2 X10*3/uL [facility] Eosinophils Absolute Auto 0.1 0.0 - 0.4 X10*3/uL [facility] Basophils Absolute Auto 0.1 0.0 - 0.2 X10*3/uL [facility] NRBC Abs Auto 0.000 0.0 - 0.012 X10*3/uL [facility] 11/20/2024 7:10 PM EDT 11/20/2024 7:15 PM EDT Generic External Data Provider LAB BLOOD ORDERAB LES Final Result Performing Organization Address City/[facility]/ZIP Co de Phone Number [facility] [address] [place] [phone] * (ABNORMAL) Partial Thromboplastin Time, Activated (APTT) (11/20/2024 7:10 PM EDT) [facility] Partial Thromboplastin Time 53.3(H) 26.0 - 36.8 SEC [facility] Comment:For information rega rding the monitoring of direct thrombininhibitors, please refer to Pharmacy. 11/20/2024 7:10 PM EDT 11/20/2024 7:15 PM EDT us Generic External Data Provider LAB BLOOD ORDERAB LES Final Result Performing Organization Address [facility]/ZIP Co de Phone Number [facility] [address] [place] [phone] * Prothrombin Time-INR (11/20/2024 7:10 PM EDT) [facility] Prothrombin Time 11.2 10.9 - 12.4 SEC [facility] INTERNATIONAL NORM RATIO 1.0 0.9 - 1.1 [facility] Comment:INTERNATIONAL NORMAL IZED RATIO (INR) REFERENCE RANGES Reference RangeFor patients not on anticoagulant therapy: 0.9 - 1.1INR ranges for oral anticoagulanttherapy:For prevention and treatment of venous thrombosis and pulmonary embolism: 2.0 - 3.0For acute myocardial infarction with aspirin therapy: 2.0 - 3.0For acute myocardial infarction without aspirin therapy: 3.0 - 4.0For patients with mechanical prosthetic heart valves: 2.5 - 3.5 11/20/2024 7:10 PM EDT 11/20/2024 7:15 PM EDT Generic External Data Provider LAB BLOOD ORDERAB LES Final Result Performing Organization Address [facility] Co de Phone Number [facility] [address] [place] [phone] * (ABNORMAL) B Type Natriuretic Peptide (BNP) (11/20/2024 7:10 PM EDT) Only the most recent of3 resultswithin the time period is included. [facility] B Type Natriuretic Peptide 7,929(H) <100 pg/mL [facility] 11/20/2024 7:10 PM EDT 11/20/2024 7:15 PM EDT Generic External Data Provider LAB BLOOD ORDERAB LES Final Result Performing Organization Address [facility] Co de Phone Number [facility] [address] [place] [phone] * (ABNORMAL) Comprehensive Metabolic Panel (11/20/2024 7:10 PM EDT) Only the most recent of2 resultswithin the time period is included. [facility] Sodium 130(L) 135 - 145 mmol/L [facility] Potassium 4.1 3.3 - 5.1 mmol/L [facility] Chloride 91(L) 96 - 108 mmol/L [facility] Carbon Dioxide 19(L) 22 - 29 mmol/L [facility] Anion Gap 24(H) 12 - 20 [facility] Urea Nitrogen (BUN) 46(H) 9 - 16 mg/dL [facility] Creatinine, Serum 5.06(HH) 0.5 - 1.4 mg/dL [facility] Comment:Critical value for t est(s): LACTA Results called to marjan back by: NIURKA Person calling: STEPHANNarda Date:11/20/24 Time: 1945 Creatinine Clr Calc Pharmacy 12.5 [facility] Comment:eGFR (calculated fro m the MDRD study equation) and eCrCl(calculated from the Cockcroft-Gault equation) are based ondifferent parameters and may not yield comparable results.If eCrCl result is absurd, please check patient'sheight/weight. Estimated Glomerular Filt Rate 12 [facility] Comment:Chronic Kidney Disea se: Estimated GFR < 60 mL/min/[id number] Kidney Disease: Estimated GFR < 15 mL/min/1.73m2 Glucose 124(H) 60 - 115 mg/dL [facility] Calcium 9.5 8.4 - 10.2 mg/dL [facility] Bilirubin, Total 0.5 0.0 - 1.0 mg/dL [facility] Aspartate Amino Transferase 17 5 - 37 U/L [facility] Alanine Aminotransferase 6 0 - 40 U/L [facility] Total Protein 6.4(L) 6.5 - 8.0 g/dL [facility] Albumin Level 3.9 3.5 - 5.0 g/dL [facility] Alkaline Phosphatase 111 39 - 117 U/L [facility] 11/20/2024 7:10 PM EDT 11/20/2024 7:15 PM EDT us Generic External Data Provider LAB BLOOD ORDERAB LES Final Result [facility] [address] [place] [phone] * XR Chest 1 View (11/20/2024 7:00 PM EDT) Only the most recent of3 resultswithin the time period is included. Anatomical Region Laterality Modality Chest Radiographic Debra ging 11/20/2024 7:00 PM EDT Narrative 11/20/2024 7:02 PM EDT ? [facility] ?[address] ?[place] [address] ?XRay Report ? Signed ? Patient: Maribeth,Darwin ?MR#: [id number] ? : 1960 ?Acct:[id number] ? Age/Sex: 64 / M ?ADM Date: 11/20/24 ? Loc: HO.ED ? Attending Dr: ? Ordering Physician: Zuhair Batista ?? Date of Service: 11/20/24 ?? Procedure(s): XR chest 1V ?? Accession Number(s): [id number] ? cc: Zuhair Batista; Andie Whitmore ? CLINICAL HISTORY: SOB. Pneumonia? 1 view chest x-ray ? Comparison: None ? Findings: ?? Mild cardiomegaly. Diffuse interstitial prominence in both lungs. Small ?? bilateral pleural effusions, right more than left. ?? No pneumothorax or focal consolidation. ?? No acute fracture. ? IMPRESSION: ?? Mild cardiomegaly. Diffuse interstitial prominence in both lungs. Small ?? bilateral pleural effusions, right more than left. findings are concerning ?? for CHF/fluid overload. ? This document has been electronically signed by: Sin Schmidt MD on ?? 11/20/2024 19:00:53 ? Dictated By: ?Sin Schmidt MD ? Signed By: ?<Electronically signed by Sin Schmidt MD in OV> ?11/20/241901 ? DD/ 99 ? TD/TT: 11/20/241899 ? Oil Seal Assembler: ? Procedure Note Rosemarie Mayorga - 11/20/[address] [address] XRay Report Signed Patient: Darwin Stahl#: [id number] : 1Acct:[id number] Age/Sex: 64 / MADM Date: 11/20/24 Loc: HO.ED Attending Dr: Ordering Physician: Zuhair Batista Date of Service: 11/20/24 Procedure(s): XR chest 1V Accession Number(s): [id number] cc: Zuhair Batista; Andie Whitmore CLINICAL HISTORY: SOB. Pneumonia? 1 view chest x-ray Comparison: None Findings: Mild cardiomegaly. Diffuse interstitial prominence in both lungs. Small bilateral pleural effusions, right more than left. No pneumothorax or focal consolidation. No acute fracture. IMPRESSION: Mild cardiomegaly. Diffuse interstitial prominence in both lungs. Small bilateral pleural effusions, right more than left. findings are concerning for CHF/fluid overload. This document has been electronically signed by: Sin Schmidt MD on 11/20/2024 19:00:53 Dictated By: Sin Schmidt MD Signed By: <Electronically signed by Sin Schmidt MD in OV> 11/20/241901 DD/ 99 TD/TT: 11/20/241899 Oil Seal Assembler: [facility] External Provider IMG XR PROCEDURES Final Result * CTA Chest PE Protocal (11/03/2024 1:35 PM EDT) Anatomical Region Laterality Modality Body, Chest Computed Tomogra phy 11/03/2024 1:35 PM EDT Narrative 11/03/2024 1:36 PM EDT ? [facility] ?[address] ?[place] [address] ? CT Scan Report ? Signed ? Patient: Maribeth,Darwin ?MR#: [id number] ? : 1960 ?Acct:[id number] ? Age/Sex: 64 / M ?ADM Date: 04/05/25 ? Loc: HO.ED ? Attending Dr: ? Ordering Physician: Senia Langston MD ?? Date of Service: 11/03/24 ?? Procedure(s): CT angio chest PE protocol ?? Accession Number(s): [id number] ? cc: Senia Langston MD; Andie Whitmore HEALTH AND WELLNESS MANAGER ? Report Number: ?? [id number]: Total DLP = ??284.00 mGy-cm ? CLINICAL [...] signed by Goldie Ybarra MD in OV> ?11/03/241335 ? DD/ 34 ? TD/TT: 11/03/241334 ? Oil Seal Assembler: ? Procedure Note Donotuseinterpreter, Image - 11/03/[address] [address] [address] Scan Report Signed Patient: Darwin StahlMR#: [id number] : 1Acct:[id number] Age/Sex: 64 / MADM Date: 11/03/24 Loc: HO.ED Attending Dr: Ordering Physician: Senia Langston MD Date of Service: 11/03/24 Procedure(s): CT angio chest PE protocol Accession Number(s): [id number] cc: Senia Langston MD; Andie Whitmore HEALTH AND WELLNESS MANAGER Report Number: [id number]: Total DLP = 284.00 mGy-cm CLINICAL HISTORY: [...] 11/03/24 1336 DD/ 1335 TD/TT: 11/03/24 1335 Oil Seal Assembler: [facility] External Provider IMG CT PROCEDURES Edited [...] testing should be considered.Results reported to [facility].This test has been authorized by the FDA [...] Resp Panel NA Note See Note [facility] Comment:All results must be correlated with [...] assay is performed by Multiplexed PCR, utilizing [employer]. 11/03/2024 11:5 7 AM EDT 11/03/2024 12:01 PM EDT us Generic External Data Provider LAB BLOOD ORDERAB LES Final Result [facility] [address] [place] [address] [phone] * (ABNORMAL) VENOUS BLOOD GAS (11/03/2024 10:10 AM EDT) VBG pH 7.46(H) 7.32 - 7.43 [facility] Comment:METER #: [id number] additional_comment: Cb ana VBG PCO2 50 mmHg [facility] Comment:METER #: [id number] additional_comment: Cb ana VBG PO2 38 mmHg [facility] Comment:METER #: [id number] additional_comment: Cb ana VBG Base Excess 10.6 mmol/L [facility] Comment:METER #: [id number] additional_comment: Cb ana VBG HCO3 35(H) 22 - 26 mmol/L [facility] Comment:METER #: [id number] additional_comment: Cb ana O2 Sat, Rober 58.0 % [facility] Comment:METER #: [id number] additional_comment: Cb ana 11/03/2024 10:1 0 AM EDT 11/03/2024 10:13 AM EDT us Generic External Data Provider LAB BLOOD ORDERAB LES Final Result Performing Organization Address [facility]/ZIP Co de Phone Number [facility] [address] [place] [phone] * Magnesium (11/03/2024 10:02 AM EDT) Only the most recent of2 resultswithin the time period is included. Magnesium 2.1 1.6 - 2.6 mg/dL [facility] 11/03/2024 10:0 2 AM EDT 11/03/2024 10:09 AM EDT Generic External Data Provider LAB BLOOD ORDERAB LES Final Result Performing Organization Address [facility] Co de Phone Number [facility] [address] [place] [phone] * Lipase (11/03/2024 10:02 AM EDT) Lipase 22 8 - 78 U/L [facility] 11/03/2024 10:0 2 AM EDT 11/03/2024 10:09 AM EDT Generic External Data Provider LAB BLOOD ORDERAB LES Final Result Performing Organization Address [facility] Co de Phone Number [facility] [address] [place] [phone] * (ABNORMAL) Hepatic Function Panel (11/03/2024 [...] Final Result Performing Organization Address [facility] Co de Phone Number [facility] [address] [place] [phone] * (ABNORMAL) Basic Metabolic Panel (11/03/2024 [...] Kidney Disea se: Estimated GFR < 60 mL/min/1.19f4Mfbqwe Kidney Disease: Estimated GFR < 15 mL/min/1.73m2 Glucose 88 60 - 115 mg/dL [facility] Calcium 10.3(H) 8.4 - 10.2 mg/dL [facility] 11/03/2024 10:0 2 AM EDT 11/03/2024 10:09 AM EDT us Generic External Data Provider LAB BLOOD ORDERAB LES Final Result Performing Organization Address [facility] Co de Phone Number [facility] [address] [place] [phone] * Lactic Acid (11/03/2024 10:01 AM EDT) Only the most recent of2 resultswithin the time period is included. Lactic Acid 0.8 0.5 - 2.0 mmol/L [facility] 11/03/2024 10:0 1 AM EDT 11/03/2024 10:09 AM EDT us Generic External Data Provider LAB BLOOD ORDERAB LES Final Result Performing Organization Address [facility]/ZIP Co de Phone Number [facility] [address] [place] [phone] * (ABNORMAL) Testosterone, Total, males (Adult), [place] (10/11/2024 10:35 AM EDT) Testosterone, Total 10(A) 250 - 1100 ng/dL [facility] [facility] Comment:Men with clinically significant hypogonadalsymptoms and testosterone values repeatedly inthe range of the 200-300 ng/dL or less, maybenefit from testosterone treatment afteradequate risk and benefits counseling.For additional information, please refer tohttp://education.[employer]/faq/PkmpjCiflrznrmzcdRIWCULCCV885(This link is being provided for informational/educational purposes only.)This test was developed and its analytical performancecharacteristics have been determined by [employer] [place], [place]. It hasnot been cleared or approved by the U.S. Food and DrugAdministration. This assay has been validated pursuantto the CLIA regulations and is used for clinicalpurposes.THIS TEST WAS PERFORMED AT:[employer] [place] [address]SKIDOUNHELGA HAYES MD,PHD 10/11/2024 10:3 5 AM EDT 10/11/2024 1:28 PM EDT Generic External Data Provider LAB BLOOD ORDERAB LES Final Result Performing Organization Address City/[facility] Co de Phone Number [facility] [address] [place] [address] [phone] * PSA,Total (10/11/2024 10:35 AM EDT) Prostate Specific Antigen 0.14 <0.05 - 4.0 ng/mL [facility] Comment:PSA methodology: Abb bahman Alinity i ChemiluminescentMicroparticle Immunoassay (CMIA) 10/11/2024 10:3 5 AM EDT 10/11/2024 1:28 PM EDT Generic External Data Provider LAB BLOOD ORDERAB LES Final Result [facility] [address] [place] [address] [phone] * NM Lung Perfusion (09/09/2024 8:33 AM EST) Anatomical Region Laterality Modality Body Nuclear Medicine 09/09/2024 8:33 AM EST Narrative 09/09/2024 8:35 AM EST ? [facility] ?[address] ?[place] [address] ?Nuclear Medicine Report ? Signed ? Patient: Maribeth,Darwin ?MR#: [id number] ? : 1960 ?Acct:[id number] ? Age/Sex: 64 / M ?ADM Date: 09/08/24 ? Loc: HO.IMC ?467-1 ? Attending Dr: Jer Bermudez MD ? Ordering Physician: Marvin Hollins ?? Date of Service: 09/08/24 ?? Procedure(s): NM pul perfusion ?? Accession Number(s): [id number] ? cc: Marvin Hollins; Andie Whitmore ? [...] MD in OV> ?09/09/24 0834 ? DD/ 08 ? TD/TT: 09/09/24832 ? Oil Seal Assembler: ? Procedure Note Tierra, Rosemarie - 09/09/[address] [address] Nuclear Medicine Report Signed Patient: Darwin Stahl#: [id number] : 1Acct:[id number] Age/Sex: 64 / MADM Date: 09/08/24 Loc: .[facility] 467-[address]: Jer Bermudez MD Ordering Physician: Marvni Hollins Date of Service: 09/08/24 Procedure(s): NM pul perfusion Accession Number(s): [id number] cc: Marvin Hollins; Andie Whitmore CLINICAL HISTORY: [...] in OV> 09/09/24833 DD/ 2 TD/TT: 09/09/24832 Oil Seal Assembler: [facility] External Provider IMG NM PROCEDURES Edited Result - Final * CT Chest w/o Contrast (09/08/2024 1:00 PM EST) Anatomical Region Laterality Modality Body, Chest Computed Tomogra phy 09/08/2024 1:00 PM EST Narrative 09/08/2024 1:02 PM EST ? [facility] ?[address] ?[place] [address] ? CT Scan Report ? Signed ? Patient: Darwin Stahl ?MR#: [id number] ? : 1960 ?Acct:[id number] ? Age/Sex: 64 / M ?ADM Date: 09/08/24 ? Loc: HO.ED ? Attending Dr: ? Ordering Physician: Marvin Hollins ?? Date of Service: 09/08/24 ?? Procedure(s): CT chest wo IV con ?? Accession Number(s): [id number] ? cc: Marvin Hollins; Andie Whitmore HEALTH AND WELLNESS MANAGER ? Report Number: ?? [id number]: Total DLP = ??272.00 mGy-cm ? CLINICAL HISTORY: sob cough hx malignancy ? CT chest without contrast ? Comparison: CR/MD/SR - XR CHEST 1V - 08/04/23 15:55 EST ?? CR/SR - XR CHEST 2V - 07/19/23 13:04 EST ?? CT/MD - CT CHEST WO CON - 04/02/21 [...] DD/ 1300 ? TD/TT: 09/08/24 1300 ? Oil Seal Assembler: ? Procedure Note Tierra, Rosemarie - 09/08/[address] [place] [address] [address] Scan Report Signed Patient: Darwin StahlMR#: [id number] : 1960cct:[id number] Age/Sex: 64 / MADM Date: 09/08/24 Loc: HO.ED Attending Dr: Ordering Physician: Marvin Hollins Date of Service: 09/08/24 Procedure(s): CT chest wo IV con Accession Number(s): [id number] cc: Marvin Hollins; Andie Whitmore HEALTH AND WELLNESS MANAGER Report Number: [id number]: Total DLP = 272.00 mGy-cm CLINICAL HISTORY: sob cough hx malignancy CT chest without contrast Comparison: CR/MD/SR - XR CHEST 1V - 08/04/23 15:55 EST CR/SR - XR CHEST 2V - 07/19/23 13:[address]/MD - CT CHEST WO CON - 04/02/21 [...] 09/08/24 1302 DD/ 1300 TD/TT: 09/08/24 1300 Oil Seal Assembler: [facility] External Provider IMG CT PROCEDURES Edited Result - Final * Red blood count (09/08/2024 11:00 AM EST) Red Blood Cells: [id number] AP RC TRANSFUSED 09/08/24 1204 [facility] 09/08/2024 11:0 0 AM EST 09/08/2024 11:04 AM EST Generic External Data Provider LAB BLOOD ORDERAB LES Final Result [facility] [address] [place] [phone] * Type and screen (09/08/2024 [...] BLOOD BANK TE ST ORDERABLES Final Result [facility] [address] [place] [phone] [phone] * (ABNORMAL) Iron And Total Iron [...] ORDERAB LES Final Result Performing Organization Address [facility] Co de Phone Number [facility] [address] [place] [address] [phone] * Lipid Panel, Standard (07/26/2024 11:25 AM EST) Triglycerides 54 <150 mg/dL [facility] Comment:Desirable Triglyceri de: less than [...] 190 mg/dL HDL Cholesterol 49 >40 mg/dL [facility] Comment:Desirable HDL: great er than 40 mg/dL Note: This HDL assay may give artificially low results in patients with liver disease. Blood Venous blood specimen / Unknown 07/26/2024 11:25 AM EST 07/26/2024 1:05 PM EST us Andie Whitmore HEALTH AND WELLNESS MANAGER LAB BLOOD ORDERABLES Final Res ult Performing Organization Address City/[facility]/ZIP Co de Phone Number [facility] [address] [place] [address] [phone] from Last 3 Months or Most Recently Relevant to Health Maintenance [place] [phone] [facility] STANDARD Care Teams Wall Steamer Relationship Specialty Start Date End Date Andie Whitmore FNP [address] [place] [phone] PCP - General Family Medicine 11/04/21 Trevor Restrepo MD [address] [place] [phone] Urology 07/29/24 Juvenal Cr MD [address] [facility] [address] [place] [address] Nephrology 07/29/24 Kamini Chavarria MD [address] [place] [address] Dr Lara [address] [place] [address] Neurology 07/29/24 Winston Bhagat DPM [address] [place] [address] Podiatry 07/29/24
--- OUTSIDE RECORDS SUMMARY | 2024-11-20 22:05 | XMS_ITS | Encounter Summary ---
Author Organization [facility] Address [address] [address] Phone Care Team Providers Care Wharf Builder Name Role Phone Unavailable Primary Care Provider Unavailabl e Encounter Details Date Type Department Care Team ([facility] st Contact Info) Description 11/12/2024 TCM in Dialysis Clinic [facility] [address] [address] Clinton Ortega MD [address] [address] Social History Tobacco Use Types Packs/Day Years Used Date Smoking Tobacco: Former Comments:Smoking History Inf o:Every day Sex and Gender Information Value Date Recorded Sex Assigned at Not on file Legal Sex Male 4:53 PM EST Gender Identity Not on file Sexual Orientation Not on file documented as of this encounter Progress Notes * Clinton Ortega MD - 11/12/2024 12:00 AM EDT Patient: Darwin Stahl : 1960 Note Type: Dialysis TCM Telehealth Service Date: 11/12/2024 Telehealth encounter using audiovisual technology, performed according to state requirements. Appropriate patient consent obtained. The patient was seen for a jxyc-ku-jkow visit as part of Transitional Care Management services. Attending Hotel Or Motel Receptionist: CLINTON ORTEGA Dialysis Location: [facility] Schedule: Shift: 1 INTERACTIVE CONTACT Contact with the patient or caregiver was made or attempted within 2 business days of discharge - details in the medical record. COMMENTS: unable to reach by phone but LM HOSPITALIZATION SUMMARY Patient transitioned from: Hospital Patient transitioned to: Home Admit Date: 11/05/2024 Discharge Date: 11/08/2024 Discharged info reviewed: No outstanding diagnostic tests and treatments HOME MEDICATIONS Discharge med list reviewed and reconciled - no changes. Active treatment medication orders reviewed - no changes. PHYSICAL EXAM Exam not performed. DIALYSIS PRESCRIPTION Dry weight during admission reviewed - no change to EDW. CARE COORDINATION Post-discharge follow-up appointments reviewed with the patient. EDUCATION Education relevant to the discharge diagnosis provided to the patient or caregiver VISIT DIAGNOSES CPT Code 45140 - High complexity, seen within 7 days of discharge. N18.6 End stage renal disease Signed by: CLINTON ORTEGA MD on 11/12/2024 at 09:38:08 AM Transcribed by: CLINTON ORTEGA MD on 11/12/2024 at 09:38:08 AM documented in this encounter Plan of Treatment Not on file documented as of this encounter Visit Diagnoses Not on filedocumented in this encounter
--- OUTSIDE RECORDS SUMMARY | 2024-11-20 22:05 | XMS_ITS ---
Author Name Erin, Clinic Address [address] [place] [address] Phone [phone] Organization [facility] e, NA DOCUMENT DISCLAIMER Multiple document versions may exist, please be sure you review the latest version. The information in the [facility] Continuity of Care Document represents a summary [...] Instructions Dosage Route Start Date End Date [facility] amlodipine 10 mg Take by mouth [...]
--- OUTSIDE RECORDS SUMMARY | 2024-11-20 22:05 | XMS_ITS | Encounter Summary ---
Author Organization [employer] Address [address] [facility] [facility] 7t [place] [address] Care Team Providers Care Steel Placer Name Role Phone Andie Whitmore Primary Care Provider Trevor Restrepo MD Unavailable [phone] Juvenal Cr MD Unavailable [phone] Kamini Chavarria MD Unavailable Wisn[place] Bhagat DPM Unavailable [phone] Reason for Visit * Reason Onset Date Comments Hospital Follow-up 11/09/2024 Encounter Details Date Type Department Care Team ([facility] st Contact Info) Description 11/09/2024 Telephone [facility] [address] [place], [place] [phone] Andie Whitmore FNP [address] [place] [address] Hospital Follow-up Social History Tobacco Use Types Packs/Day Years [...] encounter Miscellaneous Notes * Telephone Encounter - Valarie Estrada - 11/09/2024 10:51 AM EDT Tc from pt requesting a HDF appt. [place] [facility] Date of admission: 11/04/24 Discharge date: 11/08/24 Diagnosed: pneumonia *Send message to [place] Clinical Care Coordinators documented in this encounter Plan of Treatment Upcoming Encounters Date Type Department Care Team ([facility] st Contact Info) Description 11/30/2024 2:00 PM EDT Office Visit [facility] [address] [place] [address] Andie Whitmore FNP [address] [place] [address] documented as of this encounter Visit Diagnoses Not on filedocumented in this encounter Additional Health Concerns Assessment Noted Time PHQ-9 Depression Total Score: 1 12/23/19 23 3:02 PM EDT documented as of this encounter Care Teams Steel Placer Relationship Specialty Start Date End Date Andie Whitmore FNP [address] [place] [address] PCP - General Family Medicine 11/04/21 Trevor Restrepo MD [address] [place] [address] Urology 07/29/24 Juvenal Cr MD [address] [facility] 200 [place] [address] Nephrology 07/29/24 Kamini Chavarria MD [address] [facility] 140 [place] [address] Neurology 07/29/24 Winston Bhagat DPM [address] [facility] [address] [place] [address] Podiatry 07/29/24 documented as of this encounter
--- OUTSIDE RECORDS SUMMARY | 2024-11-20 22:05 | XMS_ITS | Clinical Summary ---
Author Organization [facility] Address [address] [place] [address] Phone Care Team Providers Care Cooking Appliance Repair Technician Name Role Phone Andie Whitmore RN Primary [...] disease 03/05/2024 ESRD (end stage renal disease) ([facility] V24, [facility] V28) 03/02/2024 Heart failure with mildly re duced ejection fraction ([facility] V24, [facility] V28) 03/02/2024 HTN (hypertension) 03/02/2024 Obstructive uropathy 03/02/2024 Onychauxis 03/02/2024 Onychomycosis 03/02/2024 Prostate cancer metastatic t o bone ([facility] V24, [facility] V28) 03/02/2024 Secondary hyperparathyroidism of renal origin ([facility] [place] V24) 03/02/2024 Encounters Date Type Department Care Team Description 10/22/2024 2:15 PM EDT - 10/22/2024 3:50 PM EDT Emergency [facility] Emergency [address] [place] [address] Diallo Ybarra MD Arteriovenous fistula of left upper extremity ([facility] V24) (Primary Dx); Hemorrhage of arteriovenous fistula, initial encounter ([facility] V24) Discharge Disposition: Home or Self Care from [...] PM EDT Office Visit Orthopedic Surgery - [place] [address] [phone] Winston Bhagat, DPM [address] [address] Health Maintenance Due Date Last Done Comments [...] 02/24/2024 Social Influencers of Health Screening 02/24/2024 COVID-19 Vaccine (8 - Pfizer risk season) 2024 03/29/2024, 06/30/2023, 06/10/2022, Additional history exists DTaP,Tdap,and Td Vaccines (2 - Td or Tdap) 12/17/2024 12/17/2014 Hypertension/CHF/CAD Annual BMP Blood Test 09/08/2025 09/08/2024 Cholesterol Screening (Lipid Panel) 08/31/2029 08/31/2024, 07/26/2024, 12/13/2023 Zoster Vaccines Completed 03/13/2023, 11/15/2022 Influenza Vaccine Completed 03/12/2024, , 05/11/2020, Additional history exists HIB Vaccines Aged Out [...] age to complete this topic Meningococcal B Vaccine Aged Out No l onger eligible based on patient's age to complete [...] around the site, then two 5-0 Prolene [id number]-sd-[id number] stitches applied with bleeding controlled us Diallo Ybarra MD IN CLINIC/BEDSIDE ORDERAB LES Final Result from Last 3 Months Insurance MEDICAID - [place] MEDICARE Care Teams Cooking Appliance Repair Technician Relationship Specialty Start Date End Date Andie Whitmore RN [address] [address] PCP - General 12/14/23
--- OUTSIDE RECORDS SUMMARY | 2024-11-20 22:05 | XMS_ITS | Encounter Summary ---
Author Organization [employer] Address [address] [facility] 7t [place] [address] Care Team Providers Care Coil Builder Name Role Phone Andie Whitmore Primary Care Provider [phone] Trevor Restrepo MD Unavailable [phone] Juvenal Cr MD Unavailable [phone] Kamini Chavarria MD Unavailable Winston Bhagat DPM Unavailable Reason for Visit * Reason Onset Date Comments Medication Question 02/29/2024 Encounter Details Date Type Department Care Team (Late st Contact Info) Description 02/29/2024 Telephone [facility] [address] [place] [address] Andie Whitmore FNP [address] [place] [address] Medication Question Social History Tobacco Use Types [...] was discussed in sick appt on 02/27 proposal writer does not see ant medication pending documented in this encounter Plan of Treatment Upcoming Encounters Date Type Department Care Team (Late st Contact Info) Description 11/30/2024 2:00 PM EDT Office Visit [facility] [address] [place] [address] Andie Whitmore FNP [address] [place] [address] documented as of this encounter Visit Diagnoses Not on filedocumented in this encounter Additional Health Concerns Assessment Noted Time PHQ-9 Depression Total Score: 1 12/23/19 23 3:02 PM EDT documented as of this encounter Care Teams Coil Builder Relationship Specialty Start Date End Date Andie Whitmore FNP [address] [place] [address] PCP - General Family Medicine 11/04/21 Trevor Restrepo MD [address] [place] [address] Urology 07/29/24 Juvenal Cr MD [address] [facility] 200 [place] [address] Nephrology 07/29/24 Kamini Chavarria MD [address] [place] [address] 140 [place] [address] Neurology 07/29/24 Winston Bhagat DPM [address] [place] [address] Podiatry 07/29/24 documented as of this encounter
--- OUTSIDE RECORDS SUMMARY | 2024-11-20 22:05 | XMS_ITS | Clinical Summary ---
Author Organization [facility] Address [address] [place] [address] [address] [place] [address] Phone Care Team Providers Care Campaign Marketing Manager Name Role Phone Unavailable Primary Care [...] break, or chew.. 90 tablet 11 02/07/2024 Active Calcium Acetate, Phos Binder, 667 MG capsule Take 1,334 mg by mouth in the morning and 1,334 mg in the evening and 1,334 mg before bedtime. 180 capsule 3 05/14/2024 Active hydrALAZINE 100 MG tablet Take 1 tablet (100 mg total) by mouth in the morning and 1 tablet (100 mg total) in the evening. 60 tablet 11 05/21/2024 Active Active Problems Problem Noted Date Diagnosed Date Carcinoma of prostate 04/21/2021 Anemia of chronic renal failure 04/21/2021 Stage 5 chronic kidney disease 04/21/2021 Hyperkalemia 04/21/2021 Secondary hyperparathyroidism of renal origin Hypocalcemia 04/21/2021 Essential (primary) hypertension 04/21/2021 Acute nontraumatic kidney injury 04/17/2021 Hypertensive disorder 04/17/2021 Encounters Date Type Department Care Team Description 11/12/2024 TCM in Dialysis Clinic [facility] [address] [phone] Juvenal Cr MD 11/12/2024 Treatment [facility] [address] [address] Juvenal Cr MD End stage renal disease; Dependence on renal dialysis 11/02/2024 Treatment [facility] [address] [address] Juvenal Cr MD End stage renal disease; Dependence on renal dialysis 10/31/2024 Treatment [facility] [address] [address] Juvenal Cr MD End stage renal disease; Dependence on renal dialysis 10/22/2024 Treatment [facility] [address] [phone] Juvenal Cr MD End stage renal disease; Dependence on renal dialysis 10/15/2024 Treatment [facility] [address] [phone] Juvenal Cr MD End stage renal disease; Dependence on renal dialysis 10/08/2024 Treatment [facility] [address] [phone] Juvenal Cr MD End stage renal disease; Dependence on renal dialysis 10/01/2024 Treatment [facility] [address] [phone] Juvenal Cr MD End stage renal disease; Dependence on renal dialysis 09/28/2024 Treatment [facility] [address] [address] Juvenal Cr MD End stage renal disease; Dependence on renal dialysis 09/27/2024 Treatment [facility] [address] [phone] Juvenal Cr MD 09/19/2024 Treatment [facility] [address] [phone] Juvenal Cr MD 08/31/2024 Orders Only [facility] [address] [phone] Juvenal Cr MD from Last 3 Months [...] Date Last Done Comments Pneumococcal Vaccine: 50+ Ye ars (1 of 2 - PCV) 02/29/1980 Hepatitis B Vaccine (1 of 5 - Risk Dialysis 4-dose series) 1981 Colorectal Cancer Screening: Colonoscopy 2010 Colorectal Cancer Screening: Sigmoidoscopy 2010 Colorectal Cancer Screening: Annual FOBT 01/22/2023 01/22/2022, 11/27/2021 Influenza Vaccine (Season Ended) 2025 04/22/2021, 05/11/2020, 07/24/2019 Procedures Procedure Name Priority Date/Time Associated Diagnosis Comments HEMOGLOBIN AND HEMATOCRIT, BLOOD Routine 11/14/2024 3:00 AM EDT HEPATITIS B SURFACE ANTIGEN [...] MAGNESIUM Routine 09/05/2024 3:00 AM EST LIH () Routine 09/05/2024 3:00 AM EST LACTATE DEHYDROGENASE [...] Relevant to Health Maintenance Results * (ABNORMAL) Hemoglobin and hematocrit (11/14/2024 3:00 AM EDT) Only the most recent of3 resultswithin the time period is included. Pathologist [facility] Hgb 9.7(L) 13.7 - 17.5 g/dL [facility] Hematocrit 29.3(L) 40.1 - 51.0 % [facility] Hemoglobin x 3 29.1(L) 41.1 - 52.5 g/dL [facility] 11/14/2024 3:00 AM EDT 11/15/2024 12:22 PM EDT Juvenal Cr MD LAB BLOOD ORDERABLES Final Re sult Performing Organization Address City/[facility]/ZIP Co de Phone Number [facility] [address] [place] [address] * LIH (10/31/2024 3:00 AM EDT) Only the most recent of9 resultswithin the time period is included. Pathologist [facility] Lipemia Normal Normal [facility] Icterus Normal Normal [facility] Hemolysis Normal Normal [facility] 10/31/2024 3:00 AM EDT 11/02/2024 4:31 PM EDT Juvenal Cr MD LAB [id number] SOLICITED RESULTS Final Result Performing Organization Address City/[facility] Co de Phone Number [facility] [address] [place] [address] * (ABNORMAL) Kt/V Natural Log, URR (10/31/2024 3:00 AM EDT) Only the most recent of4 resultswithin the time period is included. Pathologist [facility] Treatment Time 218 min [facility] Pre-Weight, lb [...] 4:31 PM EDT Juvenal Cr MD LAB [id number] SOLICITED RESULTS Final Result Performing Organization Address [facility] de Phone Number [facility] [address] [place] [address] * (ABNORMAL) Calcium Phosphorus Product, Adjusted (10/31/2024 [...] 4:31 PM EDT Juvenal Cr MD LAB [id number] SOLICITED RESULTS Final Result Performing Organization Address [facility] de Phone Number [facility] [address] [place] [address] * Hepatitis B Surface Ag w/Reflex Confirmation (10/31/2024 3:00 AM EDT) Only the most recent of5 resultswithin the time period is included. Hep B Surface Antigen Negative Negative [facility] 10/31/2024 3:00 AM EDT 11/02/2024 4:31 PM EDT Juvenal Cr MD LAB BLOOD ORDERABLES Final Re sult Performing Organization Address [facility] Co de Phone Number [facility] [address] [place] [address] * (ABNORMAL) TSAT (10/31/2024 3:00 AM EDT) Only the most recent of4 resultswithin the time period is included. Pathologist [facility] Iron 36(L) 65 - 175 ug/dL [facility] Transferrin 161(L) 215 - 365 mg/dL [facility] TIBC 225 211 - 406 ug/dL [facility] Iron Saturation (TSat) 16(L) 22 - 52 % [facility] 10/31/2024 3:00 AM EDT 11/02/2024 4:31 PM EDT Juvenal Cr MD LAB BLOOD ORDERABLES Final Re sult Performing Organization Address [facility] de Phone Number [facility] [address] [place] [address] * (ABNORMAL) CBC and Differential (10/31/2024 3:00 AM EDT) Only the most recent of4 resultswithin the time period is included. [facility] DIFFERENTIAL MANUAL, 2 Not Indicated [facility] White [...] ORDERABLES Final Re sult Performing Organization Address [facility] de Phone Number [facility] [address] [place] [address] * (ABNORMAL) ALT (10/31/2024 3:00 AM EDT) Only the most recent of4 resultswithin the time period is included. ALT (SGPT) 9(L) 10 - 49 U/L [facility] 10/31/2024 3:00 AM EDT 11/02/2024 4:31 PM EDT us Juvenal Cr MD LAB BLOOD ORDERABLES Final Re sult Performing Organization Address [facility] de Phone Number [facility] [address] [place] [address] * AST (10/31/2024 3:00 AM EDT) Only the most recent of4 resultswithin the time period is included. AST (SGOT) 16 <34 U/L [facility] 10/31/2024 3:00 AM EDT 11/02/2024 4:31 PM EDT us Juvenal Cr MD LAB BLOOD ORDERABLES Final Re sult Performing Organization Address [facility] de Phone Number [facility] [address] [place] [address] * (ABNORMAL) Protein, total (10/31/2024 3:00 AM EDT) Only the most recent of4 resultswithin the time period is included. Total Protein 6.2(L) 6.4 - 8.9 g/dL [facility] 10/31/2024 3:00 AM EDT 11/02/2024 4:31 PM EDT Juvenal Cr MD LAB BLOOD ORDERABLES Final Re sult Performing Organization Address [facility] de Phone Number [facility] [address] [place] [address] * Alkaline phosphatase (10/31/2024 3:00 AM EDT) Only the most recent of4 resultswithin the time period is included. Pathologist [facility] Alkaline Phosphatase 90 46 - 116 U/L [facility] 10/31/2024 3:00 AM EDT 11/02/2024 4:31 PM EDT Juvenal Cr MD LAB BLOOD ORDERABLES Final Re sult Performing Organization Address [facility] de Phone Number [facility] [address] [place] [address] * (ABNORMAL) PTH, Intact (10/31/2024 3:00 AM EDT) Only the most recent of4 resultswithin the time period is included. Pathologist [facility] PTH, Intact 108(L) 160 - 721 pg/mL [facility] Comment: Suggested (KDIGO) ESRD maintenance range is two to nine times the upper normal limit (80.1 pg/mL) for the laboratory. 10/31/2024 3:00 AM EDT 11/02/2024 4:31 PM EDT Juvenal Cr MD LAB BLOOD ORDERABLES Final Re sult Performing Organization Address [facility] de Phone Number [facility] [address] [place] [address] * Magnesium (10/31/2024 3:00 AM EDT) Only the most recent of4 resultswithin the time period is included. Magnesium 2.2 1.9 - 2.7 mg/dL [facility] 10/31/2024 3:00 AM EDT 11/02/2024 4:31 PM EDT Juvenal Cr MD LAB BLOOD ORDERABLES Final Re sult Performing Organization Address [facility] de Phone Number [facility] [address] [place] [address] * (ABNORMAL) Lactate dehydrogenase (10/31/2024 3:00 AM EDT) Only the most recent of4 resultswithin the time period is included. LDH 284(H) 120 - 246 U/L [facility] 10/31/2024 3:00 AM EDT 11/02/2024 4:31 PM EDT Juvenal Cr MD LAB BLOOD ORDERABLES Final Re sult Performing Organization Address [facility] de Phone Number [facility] [address] [place] [address] * (ABNORMAL) Glucose, random (10/31/2024 3:00 AM EDT) Only the most recent of4 resultswithin the time period is included. Glucose 131(H) 74 - 109 mg/dL [facility] 10/31/2024 3:00 AM EDT 11/02/2024 4:31 PM EDT Juvenal Cr MD LAB BLOOD ORDERABLES Final Re sult Performing Organization Address [facility] de Phone Number [facility] [address] [place] [address] * (ABNORMAL) Ferritin (10/31/2024 3:00 AM EDT) Only the most recent of4 resultswithin the time period is included. Ferritin 1,046(H) 22 - 322 ng/mL [facility] 10/31/2024 3:00 AM EDT 11/02/2024 4:31 PM EDT Juvenal Cr MD LAB BLOOD ORDERABLES Final Re sult Performing Organization Address [facility] de Phone Number [facility] [address] [place] [address] * (ABNORMAL) Creatinine, serum (10/31/2024 3:00 AM EDT) Only the most recent of4 resultswithin the time period is included. Creatinine 5.88(H) 0.70 - 1.30 mg/dL [facility] 10/31/2024 3:00 AM EDT 11/02/2024 4:31 PM EDT Juvenal Cr MD LAB BLOOD ORDERABLES Final Re sult Performing Organization Address [facility] de Phone Number [facility] [address] [place] [address] * Bilirubin, total (10/31/2024 3:00 AM EDT) Only the most recent of4 resultswithin the time period is included. Total Bilirubin 1.1 0.3 - 1.2 mg/dL [facility] 10/31/2024 3:00 AM EDT 11/02/2024 4:31 PM EDT Juvenal Cr MD LAB BLOOD ORDERABLES Final Re sult Performing Organization Address [facility] de Phone Number [facility] [address] [place] [address] * Lipid panel (10/31/2024 3:00 AM EDT) [...] Final Re sult [facility] [address] [place] [address] * Electrolyte panel (10/31/2024 3:00 AM EDT) [...] ORDERABLES Final Re sult Performing Organization Address [facility] de Phone Number [facility] [address] [place] [address] * (ABNORMAL) Phosphorus (10/26/2024 3:00 AM EDT) Only the most recent of2 resultswithin the time period is included. Phosphorus, Serum 9.8(H) 2.5 - 5.0 mg/dL [facility] 10/26/2024 3:00 AM EDT 10/27/2024 1:10 PM EDT Juvenal Cr MD LAB BLOOD ORDERABLES Final Re sult Performing Organization Address [facility] de Phone Number [facility] [address] [place] [address] * Potassium (09/26/2024 3:00 AM EST) Only the most recent of3 resultswithin the time period is included. Potassium 4.8 3.4 - 5.0 mEq/L [facility] 09/26/2024 3:00 AM EST 09/27/2024 1:02 PM EST Juvenal Cr MD LAB BLOOD ORDERABLES Final Re sult Performing Organization Address [facility] de Phone Number [facility] [address] [place] [address] * Collection Date (09/14/2024 3:00 AM EST) Collection Date See Comment [facility] Comment: Patient sample received may exceed specimen stability, based on the collection date electronically provided. ??When reviewing patient results, verify collection information and consider specimen stability before acting on any critical or panic results. 09/14/2024 3:00 AM EST us Juvenal Cr MD LAB [id number] SOLICITED RESULTS Final Result Performing Organization Address [facility] Co de Phone Number [facility] [address] [place] [address] * Hep B Core Ab, Total w/Reflex IgM (09/12/2024 3:00 AM EST) Pathologist [facility] HBc Total Ab, S Negative Negative [facility] 09/12/2024 3:00 AM EST 09/13/2024 3:03 PM EST Juvenal Cr MD LAB [id number] SOLICITED RESULTS Final Result Performing Organization Address [facility] de Phone Number [facility] [address] [place] [address] * (ABNORMAL) Hepatitis B Surface Antibody (09/12/2024 3:00 AM EST) [facility] Hep B Surface Antibody <4(A) mIU/mL [facility] Comment: Interpretation: <10: No Immunity >=10: Probable Immunity 09/12/2024 3:00 AM EST 09/13/2024 3:03 PM EST Juvenal Cr MD LAB BLOOD ORDERABLES Final Re sult Performing Organization Address [facility] de Phone Number [facility] [address] [place] [address] * Confirmation Test HCV (08/31/2024 3:00 AM EST) [facility] Hep C Ab Confirmation Not needed [facility] 08/31/2024 3:00 AM EST 09/01/2024 1:35 PM EST Juvenal Cr MD LAB BLOOD ORDERABLES Final Re sult Performing Organization Address [facility] de Phone Number [facility] [address] [place] [address] * HEPATITIS C ABS W/REFLEX RNA DETECTR (08/31/2024 3:00 AM EST) [facility] Hep C Virus Ab Non-Reacti ve Non-Reacti ve [facility] 08/31/2024 3:00 AM EST 09/01/2024 1:41 PM EST Juvenal Cr MD LAB [id number] SOLICITED RESULTS Final Result Performing Organization Address [facility] de Phone Number [facility] [address] [place] [address] * Aluminum level (08/31/2024 3:00 AM EST) Aluminum 5 1 - 20 ug/L [facility] 08/31/2024 3:00 AM EST 09/01/2024 1:40 PM EST Juvenal Cr MD LAB BLOOD ORDERABLES Final Re sult Performing Organization Address [facility] de Phone Number [facility] [address] [place] [address] * Uric Acid (08/31/2024 3:00 AM EST) Uric Acid 5.4 4.4 - 7.6 mg/dL [facility] 08/31/2024 3:00 AM EST 09/01/2024 1:41 PM EST Juvenal Cr MD LAB BLOOD ORDERABLES Final Re sult Performing Organization Address [facility] Phone Number [facility] [address] [place] [address] * Occult blood x 3, stool (01/22/2022) Occult Blood, Stool #1 Negative Negative [facility] Comment: Performed by [facility]. Occult Blood, Stool #2 Negative Negative [facility] Comment: Performed by [facility]. Collection Time 600 [facility] 01/22/2022 01/27/2022 1:2 3 PM EDT Narrative [facility] - 01/27/2022 Unless otherwise specified, test(s) performed at: [facility], [address] [place] [address] [employer] MITER OPERATOR: Cruzito Knutson M.D. For any questions, please call customer service at FREQUENCY:OTHER Resulting Agency Comment Specimen source: Occult Blood Card Juvenal Cr MD LAB BODY FLUIDS AND STOOLS OR DERABLES Final Result [facility] from Last 3 Months or Most Recently Relevant to Health Maintenance Insurance Medicare Medicaid [place] Medicare Medicaid [place]
--- OUTSIDE RECORDS SUMMARY | 2024-11-20 22:05 | XMS_ITS | Encounter Summary ---
Author Organization [employer] Address [address] [facility] [address] [place] [address] Care Team Providers Care Picker Box Operator Name Role Phone Myranda Andie SUN Primary Care Provider [phone] Trevor Restrepo MD Unavailable [phone] MD Unavailable [phone] Kamini Chavarria MD Unavailable [phone] Winston Bhagat DPM Unavailable [phone] Encounter Details Date Type Department Care Team (Late st Contact Info) Description 11/20/2024 Orders Only GENERIC EXTERNAL DATA [...] is your housing situation today? I have mravin morales 05/17/[address] [...] as of this encounter Plan of Treatment Upcoming Encounters Date Type Department Care Team (Late st Contact Info) Description 11/30/2024 2:00 PM EDT Office Visit [facility] [address] [place] [address] Andie Whitmore, [employer] [address] [place] [address] documented as of this encounter Procedures Procedure Name Priority Date/Time Associated Diagnosis Comments HIGH SENSITIVITY TROPONIN I Routine 11/20/2024 7:10 PM EDT SARS COV2/INFLUENZA A/B AND RSV RNA QL NAAT Routine 11/20/2024 7:10 PM EDT CBC WITH AUTO DIFFERENTIAL Routine 11/20/2024 7:10 PM EDT APTT Routine 11/20/2024 7:10 PM EDT PROTHROMBIN TIME-INR Routine 11/20/2024 7:10 PM EDT B TYPE NATRIURETIC PEPTIDE (BNP) Routine 11/20/2024 7:10 PM EDT COMPREHENSIVE METABOLIC PANEL Routine 11/20/2024 7:10 PM EDT documented in this encounter Results * (ABNORMAL) B Type Natriuretic Peptide (BNP) (11/20/2024 7:10 PM EDT) B Type Natriuretic Peptide 7,929(H) <100 pg/mL [facility] 11/20/2024 7:10 PM EDT 11/20/2024 7:15 PM EDT Generic External Data Provider LAB BLOOD ORDERAB LES Final Result Performing Organization Address [facility]/ZIP Co de Phone Number [facility] [address] [place] [phone] * SARS-CoV-2 RNA, Influenza A/B, and RSV RNA, Ql NAAT (11/20/2024 7:10 PM EDT) [facility] Influenza A PCR NEGATIVE Negative [facility] Influenza B PCR NEGATIVE Negative [facility] Resp Syncy Virus RNA Qual PCR NEGATIVE Negative [facility] SARS COV2 PCR NEGATIVE Negative [facility] Comment:All test results mus t [...] use by authorized laboratories.Testing performed on the [employer] GeneXpert utilizingreal-time RT-PCR.All SARS CoV2 and positive influenza A/B results arereported to [facility]. 11/20/2024 7:10 PM EDT 11/20/2024 7:15 PM EDT us Generic External Data Provider LAB MICROBIOLOGY - GENERAL ORDERABLES Final Result Performing Organization Address [facility]/ZIP Co de Phone Number [facility] [address] [place] [phone] * (ABNORMAL) Comprehensive Metabolic Panel (11/20/2024 7:10 PM EDT) Sodium 130(L) 135 - 145 mmol/L [facility] Potassium 4.1 3.3 - 5.1 mmol/L [facility] Chloride 91(L) 96 - 108 mmol/L [facility] Carbon Dioxide 19(L) 22 - 29 mmol/L [facility] Anion Gap 24(H) 12 - 20 [facility] Urea Nitrogen (BUN) 46(H) 9 - 16 mg/dL [facility] Creatinine, Serum 5.06(HH) 0.5 - 1.4 mg/dL [facility] Comment:Critical value for t est(s): LACTA Results called to marjan back by: NIURKA Person calling: JOHN Date:11/20/24 Time: 1945 Creatinine Clr Calc Pharmacy 12.5 [facility] Comment:eGFR (calculated fro m the MDRD study equation) and eCrCl(calculated from the Cockcroft-Gault equation) are based ondifferent parameters and may not yield comparable results.If eCrCl result is absurd, please check patient'sheight/weight. Estimated Glomerular Filt Rate 12 [facility] Comment:Chronic Kidney Disea se: Estimated GFR < 60 mL/min/[id number] Kidney Disease: Estimated GFR < 15 mL/min/1.73m2 Glucose 124(H) 60 - 115 mg/dL [facility] Calcium 9.5 8.4 - 10.2 mg/dL [facility] Bilirubin, Total 0.5 0.0 - 1.0 mg/dL [facility] Aspartate Amino Transferase 17 5 - 37 U/L [facility] Alanine Aminotransferase 6 0 - 40 U/L [facility] Total Protein 6.4(L) 6.5 - 8.0 g/dL [facility] Albumin Level 3.9 3.5 - 5.0 g/dL [facility] Alkaline Phosphatase 111 39 - 117 U/L [facility] 11/20/2024 7:10 PM EDT 11/20/2024 7:15 PM EDT us Generic External Data Provider LAB BLOOD ORDERAB LES Final Result Performing Organization Address [facility] Co de Phone Number [facility] [address] [place] [phone] * (ABNORMAL) High Sensitivity Troponin I (11/20/2024 7:10 PM EDT) TROPONIN I HIGH SENSITIVITY 57.8(H) <3.5 - 35.0 ng/L [facility] Comment:The Burnett high sens itivity Troponin-I results should beused in conjunction with other diagnostic information suchas ECG, clinical observations and information, and patientsymptoms to aid in the diagnosis of [place]. 11/20/2024 7:10 PM EDT 11/20/2024 7:15 PM EDT Generic External Data Provider LAB BLOOD ORDERAB LES Final Result Performing Organization Address [facility] Co de Phone Number [facility] [address] [place] [phone] * (ABNORMAL) Partial Thromboplastin Time, Activated (APTT) (11/20/2024 7:10 PM EDT) [facility] Partial Thromboplastin Time 53.3(H) 26.0 - 36.8 SEC [facility] Comment:For information rega rding the monitoring of direct thrombininhibitors, please refer to Pharmacy. 11/20/2024 7:10 PM EDT 11/20/2024 7:15 PM EDT Generic External Data Provider LAB BLOOD ORDERAB LES Final Result Performing Organization Address [facility] Co de Phone Number [facility] [address] [place] [phone] * Prothrombin Time-INR (11/20/2024 7:10 PM EDT) Pathologist [facility] Prothrombin Time 11.2 10.9 - 12.4 SEC [facility] INTERNATIONAL NORM RATIO 1.0 0.9 - 1.1 [facility] Comment:INTERNATIONAL NORMAL IZED RATIO (INR) [...] Provider LAB BLOOD ORDERAB LES Final Result [facility] [address] [place] [phone] * (ABNORMAL) CBC auto differential (11/20/2024 7:10 PM EDT) White Blood Count 7.2 4.8 - 10.8 X10*3/uL [facility] Red Blood Count 3.39(L) 4.60 - 5.80 X10*6/uL [facility] Hemoglobin 10.0(L) 14.0 - 18.0 g/dl [facility] Hematocrit 30.0(L) 42.0 - 52.0 % [facility] Mean Corpuscular Volume 88.5 80.0 - 98.0 fL [facility] Mean Corpuscular Hemoglobin 29.5 27.0 - 33.0 pg [facility] Mean Corpuscular HGB Conc 33.3 31.0 - 36.0 g/dl [facility] Red Cell Distribution Width 20.2(H) 11.0 - 16.0 % [facility] Platelet Count 222 160 - 400 X10*3/uL [facility] Mean Platelet Volume 10.8 9.4 - 12.4 fL [facility] Neutrophils Percent Auto 77.9(H) 45 - 73 % [facility] Imm Gran Pct Auto 0.4 0.0 - 0.4 % [facility] Lymphocytes Percent Auto 12.8(L) 20 - 40 % [facility] Monocytes Percent Auto 6.1 2 - 11 % [facility] Eosinophils Percent Auto 1.7 0 - 4 % [facility] Basophils Percent Auto 1.1 0 - 2 % [facility] NRBC Pct Auto 0.0 0.0 - 0.2 /100WBC [facility] Neutrophils Absolute Auto 5.6 2.0 - 8.3 x10*3/uL [facility] Imm Gran Abs Auto 0.03 0.00 - 0.03 X10*3/uL [facility] Lymphocytes Absolute Auto 0.9(L) 1.2 - 4.9 X10*3/uL [facility] Monocytes Absolute Auto 0.4 0.1 - 1.2 X10*3/uL [facility] Eosinophils Absolute Auto 0.1 0.0 - 0.4 X10*3/uL [facility] Basophils Absolute Auto 0.1 0.0 - 0.2 X10*3/uL [facility] NRBC Abs Auto 0.000 0.0 - 0.012 X10*3/uL [facility] 11/20/2024 7:10 PM EDT 11/20/2024 7:15 PM EDT us Generic External Data Provider LAB BLOOD ORDERAB LES Final Result Performing Organization Address City/State/[facility] Co de Phone Number [facility] [address] [place] [phone] documented in this encounter Visit Diagnoses Not on filedocumented in this encounter Additional Health Concerns Assessment Noted Time PHQ-9 Depression Total Score: 1 12/23/19 23 3:02 PM EDT documented as of this encounter Care Teams Picker Box Operator Relationship Specialty Start Date End Date Andie Whitmore FNP [address] [place] [address] PCP - General Family Medicine 11/04/21 Trevor Restrepo MD [address] [place] [address] Urology 07/29/24 Juvenal Cr MD [address] [facility] [address] [place] [phone] Nephrology 07/29/24 Kamini Chavarria MD [address] [facility] [address] [place] [address] Neurology 07/29/24 Winston Bhagat DPM [address] [place] [address] Podiatry 07/29/24 documented as of this encounter
[2024-11-20] MEDS: Nitroglycerin 2 % Oint 1 GM Packet 0.5 INCH TRANSDERMA (23:02)
[2024-11-20] MEDS: Furosemide 100 MG/10 ML VIAL IVPUSH (23:02)
[2024-11-20] MEDS: cefEPime HCl 1 GM in 0.9 % Sodium Chloride 50 ML IV (23:20)
--- NOTE | 2024-11-20 23:20 | MHC.EDTECH ---
this tech assumed care of pt @6013
[2024-11-20 23:24] LABS: Venous Blood Gas Refer to POC result
[2024-11-20 23:26] LABS: VBG Base Excess -0.4 mmol/L; VBG HCO3 23 mmol/L (22-26); VBG pCO2 37 mmHg; VBG pH 7.41 (7.32-7.43); VBG pO2 79 mmHg
--- NOTE | 2024-11-20 23:46 | PM.IMHP ---
History of Present Illness Date of Service: 11/20/24 Attending physician on admission: Hayder Moore Chief Complaint: SOB Pt is a 64 yo male with a pmhx significant for HFrEF (45-50% 08/25), ESRD on HD MWF, HTN, HLD and prostate cancer with mets to the bone, who presented to the ED due to worsening SOB and THACKER with a dry cough for the past week. He was recently hospitalized with pneumonia from 11/03-11/07 d/c'd home with PO abx, which he completed. he was feeling better and now having URI sx again. he denies any fever, chills, nausea, vomiting, diarrhea, abd pain or urinary sx. In the ED he was found to have significantly elevated BP at 210/[address] with pulmonary edema and small bilateral pleural effusions (unchanged) and possible unresolved L pneumonia. He was given 100mg IV lasix and started on cefepime. Maintiaing O2 sats in the low 90s with oxymask 6L/min. given nitro paste and lasix for the HTN. Review of Systems Constitutional: Constitutional: Denies body ache(s), Denies chills, Reports fatigue, Denies fever(s) and Denies headache(s) Eyes: Eyes: Denies change in vision and Denies photophobia ENT: Denies headache(s), Denies nasal congestion, Denies nasal discharge and Denies sore throat Cardiovascular: Cardiovascular: Denies chest pain, Denies rapid heart rate, Denies leg edema, Denies lightheadedness and Reports dyspnea Respiratory: Respiratory: Denies chest congestion, Reports cough, Reports dyspnea and Denies wheezing Gastrointestinal: Gastrointestinal: Denies diarrhea, Denies nausea and Denies vomiting Musculoskeletal: Musculoskeletal: Denies myalgias Integumentary/Breasts: Skin/Breast: Denies rash Neurologic: Denies confusion and Denies headache(s) Psychiatric: Psychiatric: Denies confusion Endocrine: Endocrine: Reports fatigue Hematologic/Lymphatic: Hematologic/Lymphatic: Denies easy bleeding and Denies easy bruising Allergic/Immunologic: Allergic/Immunologic: Denies wheezing [facility] Medical History Anemia ESRD (end stage renal disease) HTN (hypertension) Creatinine elevation Urinary retention History of upper gastrointestinal bleeding A-V fistula Fusion of lumbar spine Chronic kidney disease Urinary tract infection Enlarged prostate Kidney disease Elevated PSA Anemia Metabolic acidosis Bilateral hydronephrosis Hypocalcemia Acute anemia Acute kidney injury Functional capacity: independent ambulation Surgical History History of fusion of cervical spine Hx of esophagogastroduodenoscopy History of transurethral resection of prostate S/P arteriovenous (AV) fistula creation History of hip replacement, total Social History Household Members: Family Household Members Other:: 2 Housing: House Housing Other:: mobile home Do you presently have visiting nurse or other home services: No Alcohol intake: former Patient Tobacco Use Status: Former Tobacco user Tobacco use type: Cigarette Years Smoked: 50 Smoked in Last 30 Days: No e-Cigarette/Vaping Use: Former Use Use of substances other than those prescribed or required for medical reasons: Yes Substance Use Type: Marijuana Advance Directives: No Advance Directives Information Provided: No Nutrition Risks: No Nutritional Risk service: No Current occupational status: disabled Meds Allergies Allergy/AdvReac Type Severity Reaction Status Date / Time No Known Allergies Allergy Verified 11/20/24 18:37 [No Known Allergies*] Active Medications: Current Medications Acetaminophen (Acetaminophen 325 Mg Tablet) 975 mg PO Q6H PRN PRN Reason: Pain, Mild 1-3,fever,headache Calcium Carbonate (Calcium Carbonate 750 Mg Tab.Chew) 750 mg PO Q4H PRN PRN Reason: Heartburn Heparin Sodium (Porcine) (Heparin Sodium,Porcine 5,000 Unit/Ml Vial) 5,000 unit SUBCUT Q8H [facility] Cefepime HCl 1 gm/ Sodium (Chloride) 50 mls @ 100 mls/hr IV Q12H [facility] Magnesium Hydroxide (Milk Of Magnesia 30 Ml Oral.Susp) 30 ml PO DAILY PRN PRN Reason: Constipation Melatonin (Melatonin 3 Mg Tablet) 6 mg PO BEDTIME PRN PRN Reason: Insomnia Ondansetron HCl (Ondansetron Hcl 4 Mg/2 Ml Vial) 4 mg IVPUSH Q8H PRN PRN Reason: Nausea and Vomiting Sodium Chloride (0.9 % Sodium Chloride Flush 3 Ml Syringe) 3 ml IVFLUSH QSHIFT [facility] Home Medications ?Medication ?Instructions ?Recorded ?Confirmed ?Last Taken ?Type blood pressure test kit-large #1 ea 03/18/22 09/08/24 09/07/24 History amlodipine 10 mg tablet 10 mg PO BEDTIME 12/17/22 11/03/24 09/07/24 History ropinirole 2 mg tablet 2 mg PO TID 08/04/23 11/03/24 11/03/24 09:00 History abiraterone 250 mg tablet 1,000 mg PO BEDTIME 09/08/24 11/03/24 09/07/24 History albuterol sulfate 90 mcg/actuation 2 puff inhalation Q4H PRN wheezing 09/08/24 11/03/24 Unknown History aerosol inhaler (Ventolin HFA) efinaconazole 10 % topical 1 appl topical DAILY 09/08/24 11/03/24 11/03/24 09:00 History solution with applicator (Jublia) hydralazine 50 mg tablet 100 mg PO BID 09/08/24 11/03/24 11/03/24 09:00 History prednisone 5 mg tablet 5 mg PO DAILY 09/08/24 11/03/24 11/03/24 09:00 History rosuvastatin 5 mg tablet 5 mg PO DAILY 09/08/24 11/03/24 11/03/24 09:00 History bumetanide 2 mg tablet 2 mg PO DAILY 11/03/24 11/03/24 11/03/24 09:00 History sevelamer carbonate 800 mg tablet 800 mg PO TIDWM 11/03/24 11/03/24 11/03/24 09:00 History vit C 250 mg-vit E 90 mg-zinc 40 2 tab PO BEDTIME 11/03/24 11/03/24 Unknown History mg-copper 1 [id number] capsule (PreserVision AREDS-2) Physical Exam Vital Signs and Narrative: Vital Signs: Last Vital Signs Temp 97.7 F 11/20/24 23:27 Pulse 70 11/20/24 23:27 Resp 22 H 11/20/24 23:27 BP 190/88 H 11/20/24 23:27 Pulse Ox 92 11/20/24 23:27 O2 Del Method Oxymask 11/20/24 23:27 O2 Flow Rate 6 11/20/24 23:27 BMI result Body Mass Index 24.7 General: AOx3, no acute distress Resp: diminshed throughout. no wheezing or crackles. CVS: S1, S2, RRR GI: +BS, NT, no distention Skin: Warm, dry Neuro: Cranial nerves II-XII grossly intact bilaterally. Motor grossly intact bilaterally Extremities: No LE edema Psych: Appropriate affect Const: General: No confusion Orientation/consciousness: No confusion Eyes: Direct Ophthalmoscopy: No photophobia Neuro: General: No confusion Results Labs 11/21/24 03:37 11/21/24 03:37 Labs: Laboratory Results - last 24 hr 11/20/24 11/20/24 19:10 23:21 MCV 88.5 MCH 29.5 MCHC 33.3 RDW 20.2 H Plt Count 222 MPV 10.8 Immature Gran % (Auto) 0.4 Neut % (Auto) 77.9 H Lymph % (Auto) 12.8 L [place] % (Auto) 6.1 Eos % (Auto) 1.7 Baso % (Auto) 1.1 Lymph # (Auto) 0.9 L [place] # (Auto) 0.4 Eos # (Auto) 0.1 Baso # (Auto) 0.1 Abs Immat Gran (auto) 0.03 Absolute Neuts (auto) 5.6 Absolute Nucleated RBC 0.000 Nucleated RBC % (auto) 0.0 PT 11.2 INR 1.0 APTT 53.3 H VBG pH 7.41 VBG pCO2 37 VBG pO2 79 VBG HCO3 23 VBG O2 Saturation 96.0 VBG Base Excess -0.4 Anion Gap 24 H Estim Creat Clear Calc 12.5 Estimated GFR 12 Random Glucose 124 H Calcium 9.5 Total Bilirubin 0.5 AST 17 ALT 6 Alkaline Phosphatase 111 B-Natriuretic Peptide 7929 H Total Protein 6.4 L Albumin 3.9 Influenza Type A (PCR) NEGATIVE Influenza Type B (PCR) NEGATIVE RSV RNA Qual (PCR) NEGATIVE SARS-CoV-2 RNA (RT-PCR) NEGATIVE Assessment and Plan (1) Acute hypoxemic respiratory failure: Status: Acute (2) Acute exacerbation of CHF (congestive heart failure): Status: Acute (3) Pleural effusion: Status: Acute (4) Pneumonia: Status: Acute (5) Hypertensive urgency: Status: Acute Plan Pt is a 64 yo male with a pmhx significant for HFrEF (45-50% 08/25), ESRD on HD MWF, HTN, HLD and prostate cancer with mets to the bone, who presented to the ED due to worsening SOB and THACKER with a dry cough for the past week. In the ED he was found to have significantly elevated BP at 210/[address] with pulmonary edema and small bilateral pleural effusions (unchanged) and possible unresolved L pneumonia. He was given 100mg IV lasix and started on cefepime. Maintiaing O2 sats in the low 90s with oxymask 6L/min. given nitro paste and lasix for the HTN. acute hypoxic respiratory failure secondary to acute on chronic HFrEF exacerbation with bilateral pleural effusions and possible pneumonia - WBC normal, no fever, lactic acid normal, no sepsis - CXR with small bilateral pleural effusions R>L, concerning for CHF/fluid overload - chest CTA negative for PE. diffuse interstitial thickening and patchy ground-glass opacities bilaterally and moderate right and small left pleural effusions, grossly unchanged. patchy consolidations in the left upper lobe posterioly and left lower lobe concerning for pneumonia or aspiration. - COVID/flu/RSV negative - trop chronically elevated, no chest pain or EKG changes - started on cefepime in ED, add vancomycin and flagyl due to concern for empyema and recent hospitalization - consider IR consult - echo - monitor CBC and BMP Hypertensive urgency - due to fluid overload - given nitropaste and lasix 100mg IV in ED - continue home BP meds ESRD - HD MWF - nephro consult - hyponatremia and hypochloremic metabolic alkalosis to improve with dialysis chronic anemia - due to ESRD - no obvious bleeding sources - no need for blood transfusion at this time - monitor CBC full code VTE prophy: heparin Pt with acute hypoxic respiratory failure secondary to CHF exacerbation with bilateral pleural effusions and possible pneumonia, requiring admission for at least 2 midnights stay for IV abx and monitoring. Quality Stroke Does the patient have a stroke diagnosis?: No VTE Prior VTE?: No VTE Risk Level:: Medical - moderate - high VTE Device Contraindication: Treatment Not Indicated VTE Drug Contraindication: N/A - Med Ordered
[2024-11-20] MEDS: Heparin Sodium,Porcine 5,000 UNIT/ML VIAL 5000 UNIT SUBCUT (23:49)
[2024-11-20] MEDS: 0.9 % Sodium Chloride Flush 3 ML SYRINGE IVFLUSH (23:54)
[2024-11-21] VITALS (15 sets, daily range): BP systolic 160–211; BP diastolic 62–106; PULSE 54–78; RESP 16–26; TEMP 36.6–37.2; O2SAT 90–97
[2024-11-21] MEDS: hydrALAZINE HCl 20 MG/ML VIAL 5 MG IVPUSH (02:11)
[2024-11-21 03:57] LABS: MANUAL DIFF FLAG NO
[2024-11-21 04:00] LABS: Basophils Absolute Auto 0.1 X10*3/uL (0.0-0.2); Eosinophils Absolute Auto 0.2 X10*3/uL (0.0-0.4); Eosinophils Percent Auto 2.1 % (0-4); Hematocrit 30.8 % (42.0-52.0); Hemoglobin 10.3 g/dl (14.0-18.0); Imm Gran Abs Auto 0.04 X10*3/uL (0.00-0.03); Imm Gran Pct Auto 0.5 % (0.0-0.4); Lymphocytes Absolute Auto 0.9 X10*3/uL (1.2-4.9); Lymphocytes Percent Auto 10.9 % (20-40); Mean Corpuscular HGB Conc 33.4 g/dl (31.0-36.0); Mean Corpuscular Hemoglobin 29.3 pg (27.0-33.0); Mean Corpuscular Volume 87.7 fL (80.0-98.0); Mean Platelet Volume 10.7 fL (9.4-12.4); Monocytes Absolute Auto 0.4 X10*3/uL (0.1-1.2); Monocytes Percent Auto 4.8 % (2-11); Neutrophils Absolute Auto 6.4 x10*3/uL (2.0-8.3); Neutrophils Percent Auto 80.7 % (45-73); Platelet Count 245 X10*3/uL (160-400); Red Blood Count 3.51 X10*6/uL (4.60-5.80); Red Cell Distribution Width 19.7 % (11.0-16.0)
[2024-11-21 04:21] LABS: Anion Gap 27 (12-20); Blood Urea Nitrogen 49 mg/dL (9-16); Calcium 9.5 mg/dL (8.4-10.2); Carbon Dioxide 17 mmol/L (22-29); Chloride 92 mmol/L (96-108); Creatinine Clr Calc Pharmacy 11.1; Estimated Glomerular Filt Rate 10; Glucose Random 89 mg/dL (60-115); Magnesium 2.2 mg/dL (1.6-2.6); Potassium 4.5 mmol/L (3.3-5.1); Sodium 131 mmol/L (135-145)
[2024-11-21] MEDS: Bumetanide 1 MG/4 ML VIAL 2 MG IVPUSH (04:44)
[2024-11-21] MEDS: Nitroglycerin 2 % Oint 1 GM Packet 0.5 INCH TRANSDERMA (04:44)
--- NOTE | 2024-11-21 04:51 | PM.EVENT ---
Event Note Date of Service: 11/21/24 Event Note: BP persistently elevated. pt already recieved 100mg IV lasix, nitro paste and hydralazine 5mg IV. had worsening SOB but was lying almost flat, improved with sitting upright. pt re-evaluated and did not have LE edema. lungs diminished with crackles throughout, no wheezing. BP still elevated at 209/106. minimal urine output per nursing staff, 200ml. discussed case with Dr Moore who suggested bumex 2mg IV, nitropaste again and resume home BP meds @9000, amlodipine 10mg and hydralazine 100mg. ordered duoneb per pt request. Time Spent With Patient Time: Total time managing care of this patient today ____ minutes.
[2024-11-21] MEDS: rOPINIRole HCL 2 MG TABLET 4 MG PO ×2 (04:54→20:07)
[2024-11-21] MEDS: metroNIDAZOLE/NS 500 MG/100 ML PIGGYBACK 100 MG IV ×3 (04:55→22:50)
[2024-11-21] MEDS: vancomycin HCL 1,000 MG, vancomycin HCL 750 MG in 0.9 % Sodium Chloride 500 ML 267.5 MG IV (05:46)
[2024-11-21] MEDS: Heparin Sodium,Porcine 5,000 UNIT/ML VIAL 5000 UNIT SUBCUT ×2 (06:53→22:49)
--- NOTE | 2024-11-21 07:55 | P.PNIM_ITS ---
Subjective Subjective Date of Service: 11/21/24 Interval History: follow up on accelerated HTN and fluid overload, sob when seen in ED had no sob and was waiting for dialysis Physical Exam 2 Vital Signs: Vital Signs: Last Vital Signs Temp 97.9 F 11/21/24 05:59 Pulse 61 11/21/24 06:27 Resp 17 11/21/24 05:59 BP 184/91 H 11/21/24 06:27 Pulse Ox 92 11/21/24 06:27 O2 Del Method Oxymask 11/21/24 06:27 O2 Flow Rate 6 11/21/24 06:27 BMI result Body Mass Index 24.7 General: AO X 3, no acute distress Resp: CTA bilateral CVS: S1,S2,RRR GI: +BS, NT, no distention Skin: No rash Neuro: motor grossly intact Psych: appropriate affect Objective Data Active Medications Acetaminophen (Acetaminophen 325 Mg Tablet) 975 mg PO Q6H PRN PRN Reason: Pain, Mild 1-3,fever,headache Albuterol/Ipratropium (Albuterol/Iprat 2.5/0.5mg 3 Ml Ampul.Neb) 3 ml INHALE Q4H PRN PRN Reason: Shortness of Breath/Wheezing Amlodipine Besylate (Amlodipine Besylate 10 Mg Tablet) 10 mg PO DAILY [facility]; Protocol Calcium Carbonate (Calcium Carbonate 750 Mg Tab.Chew) 750 mg PO Q4H PRN PRN Reason: Heartburn Heparin Sodium (Porcine) (Heparin Sodium,Porcine 5,000 Unit/Ml Vial) 5,000 unit SUBCUT Q8H [facility] Last Admin: 11/21/24 06:53 Dose: 5,000 unit Documented By: ANANDA Hydralazine HCl (Hydralazine Hcl 50 Mg Tablet) 100 mg PO BID [facility]; Protocol Cefepime HCl 1 gm/ Sodium (Chloride) 50 mls @ 100 mls/hr IV Q12H [facility] Metronidazole (Flagyl) 500 mg in 100 mls @ 100 mls/hr IV Q8H [facility] Last Infusion: 11/21/24 05:51 Dose: Infused Documented By: ANANDA Vancomycin HCl 1,000 mg/Vancomycin HCl 750 mg/ Sodium Chloride 535 mls @ 267.5 mls/hr IV ONCE ONE Stop: 11/21/24 07:59 Last Admin: 11/21/24 05:46 Dose: 267.5 mls/hr Documented By: ANANDA Vancomycin HCl 500 mg/ Sodium (Chloride) 110 mls @ 110 mls/hr IV ONCE ONE Stop: 11/21/24 07:44 Magnesium Hydroxide (Milk Of Magnesia 30 Ml Oral.Susp) 30 ml PO DAILY PRN PRN Reason: Constipation Melatonin (Melatonin 3 Mg Tablet) 6 mg PO BEDTIME PRN PRN Reason: Insomnia Ondansetron HCl (Ondansetron Hcl 4 Mg/2 Ml Vial) 4 mg IVPUSH Q8H PRN PRN Reason: Nausea and Vomiting Pharmacy Consult (Consult Rx Vancomycin Dosing) 1 each MISCELLANE DAILY PRN PRN Reason: Consult order Sodium Chloride (0.9 % Sodium Chloride Flush 3 Ml Syringe) [address] [facility] Last Admin: 11/21/24 07:26 Dose: Not Given Documented By: NASRIN Non-Admin Reason: IV Running Labs 11/23/24 06:22 11/23/24 06:22 Labs: Laboratory Results - last 24 hr 11/20/24 11/20/24 11/21/24 19:10 23:21 03:37 MCV 88.5 87.7 MCH 29.5 29.3 MCHC 33.3 33.4 RDW 20.2 H 19.7 H Plt Count 222 245 MPV 10.8 10.7 Immature Gran % (Auto) 0.4 0.5 H Neut % (Auto) 77.9 H 80.7 H Lymph % (Auto) 12.8 L 10.9 L [place] % (Auto) 6.1 4.8 Eos % (Auto) 1.7 2.1 Baso % (Auto) 1.1 1.0 Lymph # (Auto) 0.9 L 0.9 L [place] # (Auto) 0.4 0.4 Eos # (Auto) 0.1 0.2 Baso # (Auto) 0.1 0.1 Abs Immat Gran (auto) 0.03 0.04 H Absolute Neuts (auto) 5.6 6.4 Absolute Nucleated RBC 0.000 0.000 Nucleated RBC % (auto) 0.0 0.0 PT 11.2 INR 1.0 APTT 53.3 H VBG pH 7.41 VBG pCO2 37 VBG pO2 79 VBG HCO3 23 VBG O2 Saturation 96.0 VBG Base Excess -0.4 Anion Gap 24 H 27 H Estim Creat Clear Calc 12.5 11.1 Estimated GFR 12 10 Random Glucose 124 H 89 Calcium 9.5 9.5 Magnesium 2.2 Total Bilirubin 0.5 AST 17 ALT 6 Alkaline Phosphatase 111 B-Natriuretic Peptide 7929 H Total Protein 6.4 L Albumin 3.9 Influenza Type A (PCR) NEGATIVE Influenza Type B (PCR) NEGATIVE RSV RNA Qual (PCR) NEGATIVE SARS-CoV-2 RNA (RT-PCR) NEGATIVE Assessment and Plan (1) Hypertensive urgency: Status: Acute Plan Pt is a 64 yo male with a pmhx significant for HFrEF (45-50% 08/25), ESRD on HD MWF, HTN, HLD and prostate cancer with mets to the bone, who presented to the ED due to worsening SOB and THACKER with a dry cough for the past week. In the ED he was found to have significantly elevated BP at 210/[address] with pulmonary edema and small bilateral pleural effusions (unchanged) and possible unresolved L pneumonia. He was given 100mg IV lasix and started on cefepime. Maintiaing O2 sats in the low 90s with oxymask 6L/min. given nitro paste and lasix for the HTN. Acute hypoxic respiratory failure secondary to acute on chronic HFrEF exacerbation with bilateral pleural effusions and possible pneumonia - WBC normal, no fever, lactic acid normal, no sepsis - CXR with small bilateral pleural effusions R>L, concerning for CHF/fluid overload - chest CTA negative for PE. diffuse interstitial thickening and patchy ground- glass opacities bilaterally and moderate right and small left pleural effusions, grossly unchanged. patchy consolidations in the left upper lobe posterioly and left lower lobe concerning for pneumonia or aspiration--cefepime renally dose - COVID/flu/RSV negative - trop chronically elevated, no chest pain or EKG changes - started on cefepime in ED, add vancomycin and flagyl due to concern for empyema and recent hospitalization - consider IR consult - echo - monitor CBC and BMP Hypertensive urgency - due to fluid overload - given nitropaste and lasix 100mg IV in ED - continue home BP meds -hopefully will improve with dialsysis ESRD - HD MWF - nephro consult - hyponatremia and hypochloremic metabolic alkalosis to improve with dialysis chronic anemia - due to ESRD - no obvious bleeding sources - no need for blood transfusion at this time - monitor CBC full code VTE prophy: heparin Pt with acute hypoxic respiratory failure secondary to CHF exacerbation with bilateral pleural effusions and possible pneumonia, requiring admission for at least 2 midnights stay for IV abx and monitoring. Quality Stroke Does the patient have a stroke diagnosis?: No VTE Prior VTE?: No VTE Risk Level:: Medical - moderate - high VTE Device Contraindication: Treatment Not Indicated VTE Drug Contraindication: N/A - Med Ordered
[2024-11-21] MEDS: hydrALAZINE HCl 50 MG TABLET 100 MG PO ×2 (08:06→20:07)
[2024-11-21] MEDS: amLODIPine Besylate 10 MG TABLET PO (08:06)
--- NOTE | 2024-11-21 08:44 | PC.NURSE ---
ASSUMED CARE OF THIS PT, REMAINS HYPERTENSIVE, MEDICATED PER EMR, WCTM. IN NAD THIS MORNING. ATE 100% OF BREAKFAST TRAY. AWAITING DIALYSIS THIS AM. AWARE OF PLAN FOR ADMISSION.
--- NOTE | 2024-11-21 10:14 | PC.NURSE ---
scheduled for hemodialysis at noon today
--- NOTE | 2024-11-21 10:15 | PHA.MEDREC ---
Addendum entered by Dev Tom RPh 11/21/24 10:41: Med rec was reviewed by [facility]. Original Note: Pharmacy Consult ? Medication Reconciliation Pharmacy has completed the medication reconciliation. Patient nurse confirmed med rec, spoke with patient to confirm that information was correct. Patient confirmed he takes Ropinerol 2mg and confirmed he takes 2 tablets (4mg) TID; nurse had confirmed 2mg TID in med rec. The patient confirmed he takes Calcium Acetate with the Sevalamer Carbonate TID with meals, I added that to the med rec. Everything else confirmed by the nurse was confirmed by the patient.
--- NOTE | 2024-11-21 10:29 | MHC.CM.PN ---
IMM addressed. Patient lives in a house with his Sister/HCP/Michelle, uses a cane to assist with mobility, and attends [facility] M/W/F. Home vs home with new VNA(frequent admissions) is the tentative plan and CM has initiated and will follow for dc planning. PCP/RETAIL C[employer]IER ASSOCIATE is Andie Whitmore and Sister will transport to home at time of dc.
--- NOTE | 2024-11-21 11:08 | PC.NURSE ---
Report received from BRITT Urbano. Taken over care at this time.
--- NOTE | 2024-11-21 11:49 | PC.NURSE ---
Linen and new blankets provided to pt.
--- NOTE | 2024-11-21 12:06 | PC.NURSE ---
Pt. off to dialysis.
[2024-11-21] MEDS: Bumetanide 1 MG TABLET 2 MG PO (18:24)
[2024-11-21 18:38] LABS: Vancomycin Random 19.4 mcg/mL (15-20)
[2024-11-21] MEDS: Multivitamin TABLET 1 TAB PO (20:07)
[2024-11-21] MEDS: 0.9 % Sodium Chloride Flush 3 ML SYRINGE IVFLUSH (20:07)
[2024-11-21] MEDS: cefEPime HCl 1 GM in 0.9 % Sodium Chloride 50 ML IV (20:11)
[2024-11-22 03:50] VITALS: BP 154/64; PULSE 83; RESP 16; TEMP 36.7; O2SAT 92
[2024-11-22] MEDS: metroNIDAZOLE/NS 500 MG/100 ML PIGGYBACK 100 MG IV ×3 (06:03→21:25)
[2024-11-22] MEDS: Acetaminophen 325 MG TABLET 975 MG PO (06:05)
[2024-11-22 06:56] LABS: MANUAL DIFF FLAG NO
[2024-11-22 07:00] LABS: Basophils Absolute Auto 0.1 X10*3/uL (0.0-0.2); Basophils Percent Auto 1.2 % (0-2); Eosinophils Absolute Auto 0.2 X10*3/uL (0.0-0.4); Eosinophils Percent Auto 2.2 % (0-4); Hematocrit 29.5 % (42.0-52.0); Hemoglobin 9.7 g/dl (14.0-18.0); Imm Gran Abs Auto 0.03 X10*3/uL (0.00-0.03); Imm Gran Pct Auto 0.4 % (0.0-0.4); Lymphocytes Absolute Auto 0.8 X10*3/uL (1.2-4.9); Lymphocytes Percent Auto 10.6 % (20-40); Mean Corpuscular HGB Conc 32.9 g/dl (31.0-36.0); Mean Corpuscular Hemoglobin 29.3 pg (27.0-33.0); Mean Corpuscular Volume 89.1 fL (80.0-98.0); Mean Platelet Volume 11.3 fL (9.4-12.4); Monocytes Absolute Auto 0.5 X10*3/uL (0.1-1.2); Monocytes Percent Auto 6.5 % (2-11); Neutrophils Absolute Auto 5.9 x10*3/uL (2.0-8.3); Neutrophils Percent Auto 79.1 % (45-73); Platelet Count 227 X10*3/uL (160-400); Red Blood Count 3.31 X10*6/uL (4.60-5.80); Red Cell Distribution Width 20.5 % (11.0-16.0); White Blood Count 7.4 X10*3/uL (4.8-10.8)
[2024-11-22 07:25] LABS: Anion Gap 18 (12-20); Blood Urea Nitrogen 37 mg/dL (9-16); Calcium 9.1 mg/dL (8.4-10.2); Carbon Dioxide 23 mmol/L (22-29); Chloride 98 mmol/L (96-108); Creatinine Clr Calc Pharmacy 13.9; Estimated Glomerular Filt Rate 13; Glucose Random 78 mg/dL (60-115); Magnesium 2.1 mg/dL (1.6-2.6); Potassium 4.1 mmol/L (3.3-5.1); Sodium 135 mmol/L (135-145)
[2024-11-22 07:39] VITALS: BP 138/68; PULSE 71; RESP 18; TEMP 36.4; O2SAT 95
[2024-11-22] MEDS: Calcium Acetate 667 MG CAPSULE PO ×3 (08:36→16:29)
[2024-11-22] MEDS: Bumetanide 1 MG TABLET 2 MG PO (08:36)
[2024-11-22] MEDS: Atorvastatin Calcium 20 MG TABLET PO (08:36)
[2024-11-22] MEDS: predniSONE 5 MG TABLET PO (08:36)
[2024-11-22] MEDS: hydrALAZINE HCl 50 MG TABLET 100 MG PO ×2 (08:36→20:04)
[2024-11-22] MEDS: rOPINIRole HCL 2 MG TABLET 4 MG PO ×3 (08:36→20:04)
[2024-11-22] MEDS: Sevelamer Carbonate Tablet 800 MG TABLET PO ×3 (08:36→16:29)
[2024-11-22] MEDS: amLODIPine Besylate 10 MG TABLET PO (08:36)
[2024-11-22] MEDS: Heparin Sodium,Porcine 5,000 UNIT/ML VIAL 5000 UNIT SUBCUT ×3 (08:37→21:26)
[2024-11-22] MEDS: 0.9 % Sodium Chloride Flush 3 ML SYRINGE IVFLUSH ×3 (08:37→20:04)
--- NOTE | 2024-11-22 11:09 | HO.PM.IMPN ---
Subjective Subjective Date of Service: 11/22/24 Interval History: seen and evaluated feels better but has dyspnea on exertion and cough no chest pain still on 4L O2 no other overnight events Review of Systems Review of Systems: Yes all other systems are reviewed and are negative Physical Exam Vital Signs: Vital Signs: Last Vital Signs Temp 97.6 F 11/22/24 07:39 Pulse 71 11/22/24 07:39 Resp 18 11/22/24 07:39 BP 138/68 11/22/24 07:39 Pulse Ox 95 11/22/24 07:39 O2 Del Method Nasal Cannula 11/22/24 07:39 O2 Flow Rate 4 11/22/24 07:39 BMI result Body Mass Index 24.7 Const: Other: Constitutional : Awake, interactive, not in distress Neck : Normal inspection, Supple Cardiovascular : RRR, no JVP, no lower extremity edema Respiratory : good bilateral air entry, basal bilateral crackles, on O2 supplement Gastrointestinal: soft, lax, Normal bowel sounds, Non tender Skin : Warm, Dry Neurological : Alert & oriented x3, No focal deficit Objective Data Active Medications Acetaminophen (Acetaminophen 325 Mg Tablet) 975 mg PO Q6H PRN PRN Reason: Pain, Mild 1-3,fever,headache Last Admin: 11/22/24 06:05 Dose: 975 mg Documented By: RENETTA Albuterol Sulfate (Albuterol Sulfate 90 Mcg 8 Gm Inhaler) 2 puff INHALE Q4H PRN PRN Reason: wheezing Albuterol/Ipratropium (Albuterol/Iprat 2.5/0.5mg 3 Ml Ampul.Neb) 3 ml INHALE Q4H PRN PRN Reason: Shortness of Breath/Wheezing Amlodipine Besylate (Amlodipine Besylate 10 Mg Tablet) 10 mg PO DAILY [facility]; Protocol Last Admin: 11/22/24 08:36 Dose: 10 mg Documented By: ABRIL Atorvastatin Calcium (Atorvastatin Calcium 20 Mg Tablet) 20 mg PO DAILY [facility] Last Admin: 11/22/24 08:36 Dose: 20 mg Documented By: ABRIL Bumetanide (Bumetanide 1 Mg Tablet) 2 mg PO DAILY [facility]; Protocol Last Admin: 11/22/24 08:36 Dose: 2 mg Documented By: ABRIL Calcium Acetate (Calcium Acetate 667 Mg Capsule) 667 mg PO TIDWM [facility] Last Admin: 11/22/24 08:36 Dose: 667 mg Documented By: ABRIL Calcium Carbonate (Calcium Carbonate 750 Mg Tab.Chew) 750 mg PO Q4H PRN PRN Reason: Heartburn Heparin Sodium (Porcine) (Heparin Sodium,Porcine 5,000 Unit/Ml Vial) 5,000 unit SUBCUT Q8H [facility] Last Admin: 11/22/24 08:37 Dose: 5,000 unit Documented By: ABRIL Hydralazine HCl (Hydralazine Hcl 50 Mg Tablet) 100 mg PO BID [facility]; Protocol Last Admin: 11/22/24 08:36 Dose: 100 mg Documented By: ABRIL Cefepime HCl 1 gm/ Sodium (Chloride) 50 mls @ 100 mls/hr IV Q24H [facility] Last Infusion: 11/21/24 20:46 Dose: Infused Documented By: ANTOINC Metronidazole (Flagyl) 500 mg in 100 mls @ 100 mls/hr IV Q8H [facility] Last Infusion: 11/22/24 08:39 Dose: Infused Documented By: ABRIL Vancomycin HCl 500 mg/ Sodium (Chloride) 110 mls @ 110 mls/hr IV ONCE ONE Stop: 11/21/24 07:44 Magnesium Hydroxide (Milk Of Magnesia 30 Ml Oral.Susp) 30 ml PO DAILY PRN PRN Reason: Constipation Melatonin (Melatonin 3 Mg Tablet) 6 mg PO BEDTIME PRN PRN Reason: Insomnia Multivitamins/Vitamin C (Multivitamin Tablet) 1 tab PO BEDTIME [facility] Last Admin: 11/21/24 20:07 Dose: 1 tab Documented By: ANTOINC Non-Formulary Medication (Abiraterone) 1,000 mg PO BEDTIME [facility] Non-Formulary Medication (Efinaconazole [Jublia]) 1 appl TOPICAL DAILY [facility] Ondansetron HCl (Ondansetron Hcl 4 Mg/2 Ml Vial) 4 mg IVPUSH Q8H PRN PRN Reason: Nausea and Vomiting Pharmacy Consult (Consult Rx Vancomycin Dosing) 1 each MISCELLANE DAILY PRN PRN Reason: Consult order Prednisone (Prednisone 5 Mg Tablet) 5 mg PO DAILY [facility] Last Admin: 11/22/24 08:36 Dose: 5 mg Documented By: ABRIL Ropinirole HCl (Ropinirole Hcl 2 Mg Tablet) 4 mg PO TID [facility] Last Admin: 11/22/24 08:36 Dose: 4 mg Documented By: ABRIL Sevelamer Carbonate (Sevelamer Carbonate Tablet 800 Mg Tablet) 800 mg PO TIDWM [facility] Last Admin: 11/22/24 08:36 Dose: 800 mg Documented By: ABRIL Sodium Chloride (0.9 % Sodium Chloride Flush 3 Ml Syringe) 3 ml IVFLUSH QSHIFT [facility] Last Admin: 11/22/24 08:37 Dose: 3 ml Documented By: ABRIL Labs 11/22/24 06:22 11/22/24 06:22 Labs: Laboratory Results - last 24 hr 11/21/24 11/22/24 18:08 06:22 MCV 89.1 MCH 29.3 MCHC 32.9 RDW 20.5 H Plt Count 227 MPV 11.3 Immature Gran % (Auto) 0.4 Neut % (Auto) 79.1 H Lymph % (Auto) 10.6 L [place] % (Auto) 6.5 Eos % (Auto) 2.2 Baso % (Auto) 1.2 Lymph # (Auto) 0.8 L [place] # (Auto) 0.5 Eos # (Auto) 0.2 Baso # (Auto) 0.1 Abs Immat Gran (auto) 0.03 Absolute Neuts (auto) 5.9 Absolute Nucleated RBC 0.000 Nucleated RBC % (auto) 0.0 Anion Gap 18 Estim Creat Clear Calc 13.9 Estimated GFR 13 Random Glucose 78 Calcium 9.1 Magnesium 2.1 Random Vancomycin 19.4 Microbiology Microbiology Results: Microbiology 11/20/24 23:15 Blood Culture - Preliminary Blood - Venous No growth after 24 hours. 11/20/24 23:15 Blood Culture - Preliminary Blood - Venous No growth after 24 hours. Assessment and Plan (1) Hypertensive urgency: Status: Acute (2) Acute exacerbation of CHF (congestive heart failure): Status: Acute (3) Pleural effusion: Status: Acute (4) Acute hypoxemic respiratory failure: Status: Acute (5) Pneumonia: Status: Acute Plan Pt is a 64 yo male with a pmhx significant for HFrEF (45-50% 08/25), ESRD on HD MWF, HTN, HLD and prostate cancer with mets to the bone, who presented to the ED due to worsening SOB and THACKER with a dry cough for the past week. In the ED he was found to have significantly elevated BP at 210/[address] with pulmonary edema and small bilateral pleural effusions (unchanged) and possible unresolved L pneumonia. He was given 100mg IV lasix and started on cefepime. Maintiaing O2 sats in the low 90s with oxymask 6L/min. given nitro paste and lasix for the HTN. Acute hypoxic respiratory failure secondary to acute on chronic HFrEF exacerbation with bilateral pleural effusions and possible pneumonia Feels better after dialysis Chest CTA showed diffuse interstitial thickening and patchy ground-glass opacities bilaterally and moderate right and small left pleural effusions, grossly unchanged. patchy consolidations in the left upper lobe posterioly and left lower lobe concerning for pneumonia or aspiration No reported pleuritic pain, less likely empyema Continue Cefepime renally dose and Flagyl Vancomycin post dialysis echo pending Wean O2 down as toelrated monitor CBC and BMP Hypertensive urgency Improved post HD nitropaste and lasix 100mg IV in ED continue home BP meds ESRD HD MWF nephro consult hyponatremia and hypochloremic metabolic alkalosis to improve with dialysis chronic anemia due to ESRD no obvious bleeding sources no need for blood transfusion at this time monitor CBC full code VTE prophy: heparin Pt with acute hypoxic respiratory failure secondary to CHF exacerbation with bilateral pleural effusions and pneumonia, requiring overnight stay for IV abx and monitoring. Quality Stroke Does the patient have a stroke diagnosis?: No VTE Prior VTE?: No VTE Risk Level:: Medical - moderate - high VTE Device Contraindication: Treatment Not Indicated VTE Drug Contraindication: N/A - Med Ordered
--- NOTE | 2024-11-22 11:37 | PM.EVENT ---
Event Note Date of Service: 11/22/24 Event Note: Pt seen and examined Full consult Dictated HD in AM Time Spent With Patient Time: Total time managing care of this patient today ____ minutes.
[2024-11-22 11:54] VITALS: BP 154/78; PULSE 70; RESP 18; TEMP 36.4; O2SAT 94
--- NOTE | 2024-11-22 14:00 | CA_ITS ---
Transthoracic Echocardiogram Patient (Last, First, Middle): Darwin Stahl, Gender: Male Date of : 1960 Age: 64 Procedure Date: 11/22/2024 Procedure Type: Transthoracic Echocardiogram Location: [facility] Height: 162.56 cm Weight: 65.32 kg BSA: 1.70 m2 Heart Rate: bpm BP: 184 / 91 mmHg Credit Administrator: TO Referring MD: Sharon Kim PA-C Symptoms: CHF Study Quality: Adequate ECG Rhythm: Possible sinus with PVCs Conclusions: - The left ventricular systolic function is low normal. The calculated ejection fraction is 54% by biplane method. - The left atrium is severely dilated. - No obvious valvular pathology seen on this study. - Small to moderate pericardial effusion. - Mild pulmonary hypertension is present. Findings Left Ventricle Normal left ventricular cavity size. There is mildly increased left ventricular wall thickness. The left ventricular systolic function is low normal. The calculated ejection fraction is 54% by biplane method. Diastolic function is indeterminate on the basis of available data. Right Ventricle Normal right ventricular cavity size. There is normal right ventricular systolic function. Atria The left atrium is severely dilated. The right atrium is moderately dilated. Aortic Valve There is a normal trileaflet aortic valve. There is no aortic valve stenosis. There is no aortic valve regurgitation. Mitral Valve The mitral valve appears normal. There is trace mitral valve regurgitation. There is no mitral valve stenosis. Pulmonic Valve There is trace pulmonic valve regurgitation. Tricuspid Valve There is trace tricuspid valve regurgitation. Mild pulmonary hypertension is present. Great Vessels The asc aorta is normal in size. Venous The inferior vena cava is dilated and collapses less than 50% with inspiration. Pericardium/Pleural There are no definitive echocardiographic findings of tamponade physiology. Small to moderate pericardial effusion. Prior Study Comparison No significant change compared to prior study dated: 08/05/2023. Recommendations, Care & Conclusions No obvious valvular pathology seen on this study. Measurements 2D Linear Measurements IVSd: 1.09 0.6-0.9/0.6-1.0 cm LVIDd: 5.35 3.9-5.3/4.2-5.9 cm LVIDd Index: 3.15 2.4-3.2/2.2-3.1 cm/m2 LVIDs: 3.41 2.0-3.6 cm LVPWd: 1.17 0.7-1.1 cm LA Diam: 3.90 2.7-3.8/3.0-4.0 cm LAIDs Index: 2.29 1.5-2.3 cm/m2 LV Mass: 299.08 67-162/88-224 g LV Mass Index: 175.93 43-95/49-115 g/m2 LVOT Diam: 2.10 3.0+(-)1.3 cm 2D Systolic Function EF 4C: 51.30 >55% EF 2C: 53.90 >55% EF BiP: 53.60 >55% Mitral Valve MV Pk E: 1.43 MV PK A: 0.45 MV Decel Time: 127.00 E/A: 3.20 E'Lateral: 6.64 E'Medial: 7.40 E/E' Med: 19.30 E/E' Lat: 21.50 PHT: 37.00 MVA PHT: 5.95 Decel Labette: 11.22 Aortic Valve AoV Pk Mk: 1.62 AoV Pk Grad: 10.00 LVOT LVOT Pk Mk: 0.93 LVOT Mn Mk: 0.57 LVOT VTI: 0.19 LVOT Pk Grad: 3.00 LVOT Mn Grad: 2.00 LVOT Diam: 2.10 LVOT Area: 3.46 Diastolic Function MV Pk E: 1.43 MV Pk A: 0.45 E/A: 3.20 E'Medial: 7.40 E/E' Med: 19.30 E' Laterial: 6.64 E/E' Lat: 21.50 Right Ventricle TAPSE (mm): 20.60 TVS' Mk: 12.10 Tricuspid Valve TR Pk Mk: 2.78 TR Pk Grad: 31.00 RA Press: 15.00 RVSP: 46.00 Great Vessels Aorta Sinus of Valsalva: 3.42 2.0-3.[address] [place]: 2.70 1.7-3.4 cm Ao Asc: 3.40 2.1-3.4 cm Updated in Other Vendor System with Status of Final Zion Fenton MD electronically signed on 11/23/2024 11:42:52 AM with status of Final
[2024-11-22 16:00] VITALS: BP 156/80; PULSE 68; RESP 18; TEMP 36.5; O2SAT 95
[2024-11-22] MEDS: cefEPime HCl 1 GM in 0.9 % Sodium Chloride 50 ML IV (18:08)
[2024-11-22 19:34] VITALS: BP 170/62; PULSE 63; RESP 17; TEMP 35.6; O2SAT 94
[2024-11-22] MEDS: Multivitamin TABLET 1 TAB PO (20:04)
[2024-11-22 23:35] VITALS: BP 162/73; PULSE 76; RESP 17; TEMP 36.8; O2SAT 95
[2024-11-23] MEDS: Acetaminophen 325 MG TABLET 975 MG PO ×3 (00:13→20:00)
[2024-11-23 04:00] VITALS: BP 162/70; PULSE 65; RESP 16; TEMP 36.6; O2SAT 93
[2024-11-23] MEDS: metroNIDAZOLE/NS 500 MG/100 ML PIGGYBACK 100 MG IV ×3 (05:31→22:20)
[2024-11-23 07:00] LABS: MANUAL DIFF FLAG NO
[2024-11-23 07:18] LABS: Anion Gap 20 (12-20); Blood Urea Nitrogen 48 mg/dL (9-16); Calcium 9.6 mg/dL (8.4-10.2); Carbon Dioxide 21 mmol/L (22-29); Chloride 97 mmol/L (96-108); Estimated Glomerular Filt Rate 10; Glucose Random 128 mg/dL (60-115); Potassium 4.1 mmol/L (3.3-5.1); Sodium 134 mmol/L (135-145)
[2024-11-23 07:24] LABS: Basophils Absolute Auto 0.1 X10*3/uL (0.0-0.2); Eosinophils Absolute Auto 0.1 X10*3/uL (0.0-0.4); Eosinophils Percent Auto 1.8 % (0-4); Hematocrit 29.6 % (42.0-52.0); Hemoglobin 9.8 g/dl (14.0-18.0); Imm Gran Abs Auto 0.03 X10*3/uL (0.00-0.03); Imm Gran Pct Auto 0.5 % (0.0-0.4); Lymphocytes Absolute Auto 0.8 X10*3/uL (1.2-4.9); Lymphocytes Percent Auto 13.4 % (20-40); Mean Corpuscular HGB Conc 33.1 g/dl (31.0-36.0); Mean Corpuscular Hemoglobin 29.9 pg (27.0-33.0); Mean Corpuscular Volume 90.2 fL (80.0-98.0); Mean Platelet Volume 10.2 fL (9.4-12.4); Monocytes Absolute Auto 0.3 X10*3/uL (0.1-1.2); Monocytes Percent Auto 5.4 % (2-11); Neutrophils Absolute Auto 4.9 x10*3/uL (2.0-8.3); Neutrophils Percent Auto 77.9 % (45-73); Platelet Count 187 X10*3/uL (160-400); Red Blood Count 3.28 X10*6/uL (4.60-5.80); Red Cell Distribution Width 20.4 % (11.0-16.0); White Blood Count 6.3 X10*3/uL (4.8-10.8)
[2024-11-23 07:31] LABS: Magnesium 2.3 mg/dL (1.6-2.6)
--- NOTE | 2024-11-23 07:44 | CONS_ITS ---
DATE OF SERVICE: 11/22/2024 REASON FOR CONSULTATION: Consult requested by the medical team to evaluate and help in management of patient with end-stage renal disease, presented with shortness of breath. HISTORY OF PRESENT ILLNESS: The patient is a 64-year-old male with past medical history of end-stage renal disease on hemodialysis on Tuesday, Tuesday, Tuesday, history of hypertension, hyperlipidemia, prostate CA with mets to the bones who present to the ER with worsening shortness of breath. He had dyspnea on exertion with dry cough for a week. He was recently hospitalized with pneumonia earlier this month and was sent home on p.o. antibiotic, which he completed. He was apparently feeling better now. He is again having upper respiratory tract symptoms. He denies any fever, chills, nausea, vomiting, diarrhea, pain, or urinary symptoms. The patient was evaluated in the ER and he had significant elevated blood pressure of 210/90. Chest CT showed pulmonary edema with bilateral small pleural effusion with unresolved left pneumonia, which was a possibility. He was given IV Lasix 100 mg, started on cefepime. His oxygen saturation was in the 90s and placed on oxygen mask. Renal consult was requested by the ER physician and arranged dialysis. He did have dialysis on Tuesday. The present time he is resting in the bed and he is feeling better. He denied any chest pain. Shortness of breath has improved significantly. PAST MEDICAL HISTORY: History of anemia, ESRD on hemodialysis on Tuesday, Tuesday, Tuesday, history of hypertension. He usually gets dialyzed in [facility] and he has been followed up by Dr. Cr. History of hypertension, hyperlipidemia, prostate CA with mets to the bones, history of urinary retention, hypertension, history of upper GI bleed, fusion of lumbar spine, elevated PSA, history of bilateral hydronephrosis, . PAST SURGICAL HISTORY: Include fusion of cervical spine, history of transfused TURP, AV fistula creation, history of hip replacement, total. SOCIAL HISTORY: The patient is a former smoker and uses marijuana. Does not drink at the present time. ALLERGIES: THE PATIENT HAS NO KNOWN DRUG ALLERGIES. CURRENT MEDICATIONS: As an outpatient and inpatient were reviewed in detail and his medications include Bumex 2 mg daily, sevelamer carbonate 800 mg p.o. 3 times a day with meals, renal vitamin, prednisone 5 mg daily, hydralazine 100 mg b.i.d., albuterol, , amlodipine 10 mg daily. PHYSICAL EXAMINATION: GENERAL: The patient is resting in the bed. Awake, alert, oriented x3. VITAL SIGNS: Blood pressure is 138/68, pulse 71, afebrile. HEENT: Shows pupils equal, round, and reactive bilaterally to light. No jugular venous distention is noted. NECK: Supple. CARDIOVASCULAR SYSTEM: S1, S2 without rub. RESPIRATORY: Mildly decreased in bases. No crepitation or rhonchi is noted. ABDOMEN: Soft, nontender. No guarding or rigidity. Bowel sounds normal. EXTREMITIES: Showed no significant edema. LABORATORY DATA: Done recently. WBC 7.4, hemoglobin 9.7, hematocrit 29.5, platelets 227. Sodium 134, potassium 4.1, chloride 98, CO2 of 23, BUN 37, creatinine 4.54, glucose 78. IMPRESSION: 1. 64-year-old male with end-stage renal disease, on hemodialysis. 2. Acute hypoxemic respiratory failure secondary to acute on chronic congestive heart failure/volume overload. 3. Resolving pneumonia. 4. Hypertensive urgency in the setting of volume overload. 5. Chronic anemia. RECOMMENDATIONS: At this juncture, the patient did have hemodialysis yesterday and volume was removed with improvement of symptoms. The patient needs to be on a strict 2 g sodium diet and a fluid restriction of 1200 mL per day. We will dialyze the patient in the hospital on a Tuesday, Tuesday, Tuesday schedule and he is scheduled for dialysis tomorrow. We will use the upper extremity AV fistula and use potassium per protocol. The patient's hemoglobin level is acceptable and there is no immediate need for erythropoietin injections. Antibiotics as per medical team. He is presently on cefepime and Flagyl and is also getting vancomycin post dialysis. Check Vanco level and dose based on Vanco. Continue with present antihypertensive regimen. In regard to phosphate binder, continue with the PhosLo and Renagel as ordered. Continue Bumex 2 mg daily for extra volume removal. Thank you for allowing me to participate in medical management of the patient. MD DENIS Sanchez/GABE / [phone]
[2024-11-23 07:49] VITALS: BP 150/86; PULSE 63; RESP 18; TEMP 36.4; O2SAT 93
[2024-11-23] MEDS: Heparin Sodium,Porcine 5,000 UNIT/ML VIAL 5000 UNIT SUBCUT ×3 (08:04→23:48)
[2024-11-23] MEDS: Bumetanide 1 MG TABLET 2 MG PO (08:04)
[2024-11-23] MEDS: rOPINIRole HCL 2 MG TABLET 4 MG PO ×3 (08:05→19:49)
[2024-11-23] MEDS: hydrALAZINE HCl 50 MG TABLET 100 MG PO ×2 (08:05→19:47)
[2024-11-23] MEDS: predniSONE 5 MG TABLET PO (08:05)
[2024-11-23] MEDS: Sevelamer Carbonate Tablet 800 MG TABLET PO ×2 (08:05→17:47)
[2024-11-23] MEDS: Calcium Acetate 667 MG CAPSULE PO ×2 (08:05→17:47)
[2024-11-23] MEDS: Atorvastatin Calcium 20 MG TABLET PO (08:05)
[2024-11-23] MEDS: amLODIPine Besylate 10 MG TABLET PO (08:05)
[2024-11-23] MEDS: 0.9 % Sodium Chloride Flush 3 ML SYRINGE IVFLUSH ×2 (08:05→17:47)
[2024-11-23 15:46] VITALS: BP 158/82; PULSE 63; RESP 18; TEMP 36.8; O2SAT 97
[2024-11-23] MEDS: cefEPime HCl 1 GM in 0.9 % Sodium Chloride 50 ML IV (17:46)
[2024-11-23 18:43] LABS: Vancomycin Random 12.9 mcg/mL (15-20)
--- NOTE | 2024-11-23 18:51 | P.PNIM_ITS ---
Subjective Subjective Date of Service: 11/23/24 Interval History: Feels better, still on O2 Review of Systems Review of Systems: Yes all other systems are reviewed and are negative Physical Exam 2 Vital Signs: Vital Signs: Last Vital Signs Temp 98.2 F 11/23/24 15:46 Pulse 63 11/23/24 15:46 Resp 18 11/23/24 15:46 BP 158/82 H 11/23/24 15:46 Pulse Ox 97 11/23/24 15:46 O2 Del Method Nasal Cannula 11/23/24 15:46 O2 Flow Rate 3 11/23/24 15:46 BMI result Body Mass Index 24.7 Objective Data Active Medications Acetaminophen (Acetaminophen 325 Mg Tablet) 975 mg PO Q6H PRN PRN Reason: Pain, Mild 1-3,fever,headache Last Admin: 11/23/24 06:08 Dose: 975 mg Documented By: RENETTA Albuterol Sulfate (Albuterol Sulfate 90 Mcg 8 Gm Inhaler) 2 puff INHALE Q4H PRN PRN Reason: wheezing Albuterol/Ipratropium (Albuterol/Iprat 2.5/0.5mg 3 Ml Ampul.Neb) 3 ml INHALE Q4H PRN PRN Reason: Shortness of Breath/Wheezing Amlodipine Besylate (Amlodipine Besylate 10 Mg Tablet) 10 mg PO DAILY [facility]; Protocol Last Admin: 11/23/24 08:05 Dose: 10 mg Documented By: EVE Atorvastatin Calcium (Atorvastatin Calcium 20 Mg Tablet) 20 mg PO DAILY [facility] Last Admin: 11/23/24 08:05 Dose: 20 mg Documented By: EVE Bumetanide (Bumetanide 1 Mg Tablet) 2 mg PO DAILY [facility]; Protocol Last Admin: 11/23/24 08:04 Dose: 2 mg Documented By: EVE Calcium Acetate (Calcium Acetate 667 Mg Capsule) 667 mg PO TIDWM [facility] Last Admin: 11/23/24 17:47 Dose: 667 mg Documented By: TYLER Calcium Carbonate (Calcium Carbonate 750 Mg Tab.Chew) 750 mg PO Q4H PRN PRN Reason: Heartburn Heparin Sodium (Porcine) (Heparin Sodium,Porcine 5,000 Unit/Ml Vial) 5,000 unit SUBCUT Q8H [facility] Last Admin: 11/23/24 14:30 Dose: 5,000 unit Documented By: EVE Hydralazine HCl (Hydralazine Hcl 50 Mg Tablet) 100 mg PO BID [facility]; Protocol Last Admin: 11/23/24 08:05 Dose: 100 mg Documented By: EVE Cefepime HCl 1 gm/ Sodium (Chloride) 50 mls @ 100 mls/hr IV Q24H [facility] Last Admin: 11/23/24 17:46 Dose: 100 mls/hr Documented By: TYLER Metronidazole (Flagyl) 500 mg in 100 mls @ 100 mls/hr IV Q8H [facility] Last Infusion: 11/23/24 16:47 Dose: Infused Documented By: TYLER Vancomycin HCl 500 mg/ Sodium (Chloride) 110 mls @ 110 mls/hr IV ONCE ONE Stop: 11/21/24 07:44 Vancomycin HCl 500 mg/ Sodium (Chloride) 110 mls @ 110 mls/hr IV ONCE ONE Stop: 11/23/24 19:59 Magnesium Hydroxide (Milk Of Magnesia 30 Ml Oral.Susp) 30 ml PO DAILY PRN PRN Reason: Constipation Melatonin (Melatonin 3 Mg Tablet) 6 mg PO BEDTIME PRN PRN Reason: Insomnia Multivitamins/Vitamin C (Multivitamin Tablet) 1 tab PO BEDTIME [facility] Last Admin: 11/22/24 20:04 Dose: 1 tab Documented By: ANTOINC Non-Formulary Medication (Abiraterone) 1,000 mg PO BEDTIME [facility] Non-Formulary Medication (Efinaconazole [Jublia]) 1 appl TOPICAL DAILY [facility] Ondansetron HCl (Ondansetron Hcl 4 Mg/2 Ml Vial) 4 mg IVPUSH Q8H PRN PRN Reason: Nausea and Vomiting Pharmacy Consult (Consult Rx Vancomycin Dosing) 1 each MISCELLANE DAILY PRN PRN Reason: Consult order Prednisone (Prednisone 5 Mg Tablet) 5 mg PO DAILY [facility] Last Admin: 11/23/24 08:05 Dose: 5 mg Documented By: EVE Ropinirole HCl (Ropinirole Hcl 2 Mg Tablet) 4 mg PO TID [facility] Last Admin: 11/23/24 14:30 Dose: 4 mg Documented By: EVE Sevelamer Carbonate (Sevelamer Carbonate Tablet 800 Mg Tablet) 800 mg PO TIDWM [facility] Last Admin: 11/23/24 17:47 Dose: 800 mg Documented By: TYLER Sodium Chloride (0.9 % Sodium Chloride Flush 3 Ml Syringe) 3 ml IVFLUSH QSHIFT [facility]RE[facility] Last Admin: 11/23/24 17:47 Dose: 3 ml Documented By: TYLER Labs 11/23/24 06:22 11/23/24 06:22 Labs: Laboratory Results - last 24 hr 11/23/24 11/23/24 11/23/24 06:21 06:22 18:03 MCV 90.2 MCH 29.9 MCHC 33.1 RDW 20.4 H Plt Count 187 MPV 10.2 Immature Gran % (Auto) 0.5 H Neut % (Auto) 77.9 H Lymph % (Auto) 13.4 L [place] % (Auto) 5.4 Eos % (Auto) 1.8 Baso % (Auto) 1.0 Lymph # (Auto) 0.8 L [place] # (Auto) 0.3 Eos # (Auto) 0.1 Baso # (Auto) 0.1 Abs Immat Gran (auto) 0.03 Absolute Neuts (auto) 4.9 Absolute Nucleated RBC 0.000 Nucleated RBC % (auto) 0.0 Anion Gap Cancelled 20 Estim Creat Clear Calc Cancelled 11.0 Estimated GFR Cancelled 10 Random Glucose Cancelled 128 H Calcium Cancelled 9.6 Magnesium Cancelled 2.3 Random Vancomycin 12.9 L Microbiology Microbiology Results: Microbiology 11/20/24 23:15 Blood Culture - Preliminary Blood - Venous No growth after 48 hours. 11/20/24 23:15 Blood Culture - Preliminary Blood - Venous No growth after 48 hours. Assessment and Plan (1) Hypertensive urgency: Status: Acute (2) Acute exacerbation of CHF (congestive heart failure): Status: Acute (3) Pleural effusion: Status: Acute (4) Acute hypoxemic respiratory failure: Status: Acute (5) Pneumonia: Status: Acute Plan Pt is a 64 yo male with a pmhx significant for HFrEF (45-50% 08/25), ESRD on HD MWF, HTN, HLD and prostate cancer with mets to the bone, who presented to the ED due to worsening SOB and THACKER with a dry cough for the past week. In the ED he was found to have significantly elevated BP at 210/[address] with pulmonary edema and small bilateral pleural effusions (unchanged) and possible unresolved L pneumonia. He was given 100mg IV lasix and started on cefepime. Maintiaing O2 sats in the low 90s with oxymask 6L/min. given nitro paste and lasix for the HTN. Acute hypoxic respiratory failure secondary to acute on chronic HFrEF exacerbation with bilateral pleural effusions and possible pneumonia treat underlying pna, wean off O2, Hypertensive urgency Improved post HD nitropaste and lasix 100mg IV in ED continue home BP meds ESRD HD MWF nephro consult hyponatremia and hypochloremic metabolic alkalosis to improve with dialysis chronic anemia due to ESRD no obvious bleeding sources no need for blood transfusion at this time monitor CBC full code VTE prophy: heparin Pt with acute hypoxic respiratory failure secondary to CHF exacerbation with bilateral pleural effusions and pneumonia, requiring overnight stay for IV abx and monitoring. Quality Stroke Does the patient have a stroke diagnosis?: No VTE Prior VTE?: No VTE Risk Level:: Medical - moderate - high VTE Device Contraindication: Treatment Not Indicated VTE Drug Contraindication: N/A - Med Ordered
[2024-11-23 19:46] VITALS: BP 138/65; PULSE 78; RESP 16; TEMP 37.3; O2SAT 95
[2024-11-23 19:47] VITALS: BP 136/65
[2024-11-23] MEDS: Multivitamin TABLET 1 TAB PO (19:47)
[2024-11-23] MEDS: vancomycin HCL 500 MG in 0.9 % Sodium Chloride 100 ML 110 MG IV (19:53)
[2024-11-23 23:20] VITALS: BP 137/89; PULSE 75; RESP 17; TEMP 36.7; O2SAT 94
[2024-11-24] VITALS (8 sets, daily range): BP systolic 132–162; BP diastolic 60–88; PULSE 62–95; RESP 12–20; TEMP 36.5–37.2; O2SAT 83–98
[2024-11-24] MEDS: metroNIDAZOLE/NS 500 MG/100 ML PIGGYBACK 100 MG IV ×3 (04:22→21:26)
[2024-11-24] MEDS: Atorvastatin Calcium 20 MG TABLET PO (07:39)
[2024-11-24] MEDS: rOPINIRole HCL 2 MG TABLET 4 MG PO ×3 (07:39→21:25)
[2024-11-24] MEDS: amLODIPine Besylate 10 MG TABLET PO (07:40)
[2024-11-24] MEDS: Bumetanide 1 MG TABLET 2 MG PO (07:40)
[2024-11-24] MEDS: predniSONE 5 MG TABLET PO (07:41)
[2024-11-24] MEDS: Calcium Acetate 667 MG CAPSULE PO ×3 (07:41→17:32)
[2024-11-24] MEDS: Heparin Sodium,Porcine 5,000 UNIT/ML VIAL 5000 UNIT SUBCUT ×3 (07:41→23:57)
[2024-11-24] MEDS: Sevelamer Carbonate Tablet 800 MG TABLET PO ×3 (07:41→17:32)
[2024-11-24] MEDS: hydrALAZINE HCl 50 MG TABLET 100 MG PO ×2 (07:41→21:26)
[2024-11-24] MEDS: 0.9 % Sodium Chloride Flush 3 ML SYRINGE IVFLUSH ×3 (07:42→23:57)
[2024-11-24] MEDS: Acetaminophen 325 MG TABLET 975 MG PO ×2 (09:38→23:59)
[2024-11-24] MEDS: cefEPime HCl 1 GM in 0.9 % Sodium Chloride 50 ML IV (17:33)
[2024-11-24] MEDS: Multivitamin TABLET 1 TAB PO (21:25)
--- NOTE | 2024-11-24 23:40 | P.PNNP_ITS ---
Subjective Subjective Date of Service: 11/24/24 Interval history: Feels better, still needing O2 on ambulation - smoker quit 8 yrs ago Physical Exam 2 Vital Signs: Vital Signs: Last Vital Signs Temp 97.7 F 11/24/24 19:23 Pulse 74 11/24/24 19:23 Resp 16 11/24/24 19:23 BP 162/60 H 11/24/24 21:26 Pulse Ox 90 L 11/24/24 19:23 O2 Del Method Room Air 11/24/24 19:23 O2 Flow Rate 2 11/24/24 04:00 BMI result Body Mass Index 24.7 dvs: s1s2 RS; cta ABdl soft Left Ue avf Objective Data Labs 11/23/24 06:22 11/23/24 06:22 Microbiology Microbiology Results: Microbiology 11/20/24 23:15 Blood - Venous Blood Culture - Preliminary No growth after 48 hours. 11/20/24 23:15 Blood - Venous Blood Culture - Preliminary No growth after 48 hours. Procedures Date of Service Date of Service: 11/24/24 Assessment & Plan Assessment and plan (1) ESRD (end stage renal disease): Status: Acute Plan 1. 64-year-old male with end-stage renal disease, on hemodialysis. 2. Acute hypoxemic respiratory failure 3. Resolving pneumonia.- ? copd 4. Hypertensive urgency in the setting of volume overload- now resolved 5. Chronic anemia. RECOMMENDATIONS: .We will dialyze the patient in the hospital on a Tuesday, Tuesday, Tuesday schedule We will use the upper extremity AV fistula The patient's hemoglobin level is acceptable and there is no immediate need for erythropoietin injections. Antibiotics as per medical team continue with the PhosLo and Renagel as ordered. Continue Bumex 2 mg daily for extra volume removal. Time Spent With Patient Time: Total time managing care of this patient today ____ minutes. Progress Note: Quality Stroke Does the patient have a stroke diagnosis?: No
[2024-11-25 04:00] VITALS: BP 160/78; PULSE 65; RESP 20; TEMP 36.4; O2SAT 92
[2024-11-25] MEDS: metroNIDAZOLE/NS 500 MG/100 ML PIGGYBACK 100 MG IV ×2 (05:54→11:57)
--- NOTE | 2024-11-25 07:19 | PC.NURSE ---
2300: Assumed care for patient presented lethargic with a elevated temp of 105?F, unable to have labs drawn by phlebotomy, but successfully obtained by RN, results lactic acid 3.5. Sepsis protocol was initiated, and a cooling blanket was applied, with rectal temperatures monitored continuous. 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 Temperature decreased to 99.2?F, and the patient continued to be alert and oriented, but lethargic. Medications were administered per MAR including rectal Tylenol, see MAR and f;ow sheet for documentation.
[2024-11-25 07:32] VITALS: BP 154/78; PULSE 61; RESP 16; TEMP 36.9; O2SAT 92
[2024-11-25] MEDS: predniSONE 5 MG TABLET PO (07:32)
[2024-11-25] MEDS: amLODIPine Besylate 10 MG TABLET PO (07:32)
[2024-11-25] MEDS: Sevelamer Carbonate Tablet 800 MG TABLET PO ×2 (07:32→11:57)
[2024-11-25] MEDS: Atorvastatin Calcium 20 MG TABLET PO (07:32)
[2024-11-25] MEDS: Calcium Acetate 667 MG CAPSULE PO ×2 (07:32→11:56)
[2024-11-25] MEDS: Bumetanide 1 MG TABLET 2 MG PO (07:32)
[2024-11-25] MEDS: hydrALAZINE HCl 50 MG TABLET 100 MG PO (07:33)
[2024-11-25] MEDS: rOPINIRole HCL 2 MG TABLET 4 MG PO (07:33)
[2024-11-25] MEDS: Heparin Sodium,Porcine 5,000 UNIT/ML VIAL 5000 UNIT SUBCUT (07:33)
--- NOTE | 2024-11-25 08:11 | PC.RT ---
Pt educated on use of e cylinder for home O2. Pt able to turn on and operate wiyhout difficulty. Saftey instructions sent home as well.
[2024-11-25] MEDS: 0.9 % Sodium Chloride Flush 3 ML SYRINGE IVFLUSH (09:56)
--- NOTE | 2024-11-25 10:24 | PM.DS ---
DS: Providers Provider Date of Service: 11/25/24 Date of admission: 11/20/24 23:15 Date of discharge: 11/25/24 Primary care physician: CORINNE Echevarria Consults: 11/20/24 23:20 Consult to Nephrology Routine Consulting Provider: [facility] [place] Reason for consultation: ESRD on HD MWF Has provider been notified: No DS: Diagnosis Discharge Diagnosis (1) Hypertensive urgency: Status: Acute DS: Summary Hospital Course Hospital Course: Admission hpi The patient is a 64-year-old male with a past medical history of heart failure with reduced ejection fraction (EF 45?50% as of 08/25), end-stage renal disease on hemodialysis (MWF schedule), hypertension, hyperlipidemia, and metastatic prostate cancer to the bone. He presented to the Emergency Department with worsening shortness of breath, dry cough, and dyspnea on exertion over the past week. He was recently hospitalized for pneumonia from 11/03 to 11/07 and discharged home on oral antibiotics, which he completed, with initial improvement in symptoms. However, he has since developed upper respiratory symptoms again. He denied fever, chills, nausea, vomiting, diarrhea, abdominal pain, or urinary symptoms. In the ED, he was found to have significantly elevated blood pressure at 210/90. A chest CT showed pulmonary edema, unchanged small bilateral pleural effusions, and possible unresolved left lower lobe pneumonia. He was given 100 mg IV Lasix and started on cefepime. He maintained oxygen saturation in the low 90s on 6 L/min via oxymask. Nitroglycerin paste and additional IV Lasix were administered for blood pressure control. Hospital Course: The patient was admitted with shortness of breath and hypertensive urgency (SBP >200 mmHg). Imaging revealed bilateral pleural effusions and ground-glass opacities, findings attributed primarily to volume overload. He was empirically started on IV vancomycin and cefepime for possible pneumonia, although he has had no fever, chills, or cough during hospitalization. His white blood cell count has remained within normal limits. CXR repeated and showed improved effuion, Given that patient has been treated for PNA, will discharge with ceftin and doxy and should have repeat CXR in the future to unsure effusion not get worse Time Attestation Discharge Coordination Time (in mins): 45 Quality: Safe Use of Opioids Does Pt have an Active Cancer Diagnosis on the Problem List?: No Quality: Stroke Does the patient have a stroke diagnosis?: No Physical Exam Vital Signs: Vital Signs: Selected Entries 11/25/24 07:32 Temperature 98.4 F Pulse Rate 61 Respiratory Rate 16 Blood Pressure 154/78 H Pulse Oximetry 92 Oxygen Delivery Me thod Room Air General: AO X 3, no acute distress Resp: CTA bilateral CVS: S1,S2,RRR GI: +BS, NT, no distention Skin: No rash Neuro: motor grossly intact Psych: appropriate affect DS: Data Data Completed and Pending Completed studies during hospitalization [Text1]: Procedures Dilation of Bilateral Ureters, Via Natural or Artificial Opening Endoscopic (04/01/21) Drainage of Left Kidney Pelvis with Drainage Device, Percutaneous Approach (04/01/21) Drainage of Right Kidney Pelvis with Drainage Device, Percutaneous Approach (04/01/21) Excision of Prostate, Via Natural or Artificial Opening, Diagnostic (05/28/21) Fluoroscopy of Kidneys, Ureters and Bladder (04/01/21) Insertion of Infusion Device into Superior Vena Cava, Percutaneous Approach (05/28/21) Insertion of Tunneled Vascular Access Device into Chest Subcutaneous Tissue and Fascia, Percutaneous Approach (05/28/21) Performance of Urinary Filtration, Intermittent, Less than 6 Hours Per Day (11/03/24) Transfusion of Nonautologous Red Blood Cells into Peripheral Vein, Percutaneous Approach (09/08/24) Labs on day of discharge: Laboratory Results - last 24 hr 11/23/24 11/23/24 06:21 06:22 WBC 6.3 RBC 3.28 L Hgb 9.8 L Hct 29.6 L MCV 90.2 MCH 29.9 MCHC 33.1 RDW 20.4 H Plt Count 187 MPV 10.2 Immature Gran % (Auto) 0.5 H Neut % (Auto) 77.9 H Lymph % (Auto) 13.4 L [place] % (Auto) 5.4 Eos % (Auto) 1.8 Baso % (Auto) 1.0 Lymph # (Auto) 0.8 L [place] # (Auto) 0.3 Eos # (Auto) 0.1 Baso # (Auto) 0.1 Abs Immat Gran (auto) 0.03 Absolute Neuts (auto) 4.9 Absolute Nucleated RBC 0.000 Nucleated RBC % (auto) 0.0 Sodium Cancelled 134 L Potassium Cancelled 4.1 Chloride Cancelled 97 Carbon Dioxide Cancelled 21 L Anion Gap Cancelled 20 BUN Cancelled 48 H Creatinine Cancelled 5.71 H* Estim Creat Clear Calc Cancelled 11.0 Estimated GFR Cancelled 10 Random Glucose Cancelled 128 H Calcium Cancelled 9.6 Magnesium Cancelled 2.3 Preliminary micro results at discharge 11/20/24 23:15 Blood Culture - Preliminary Blood - Venous No growth after 48 hours. 11/20/24 23:15 Blood Culture - Preliminary Blood - Venous No growth after 48 hours. Discharge Plan Discharge Anticipated Discharge Date/Time: 11/25/24 10:23 Patient Disposition: Home, Self-Care Discharge Diagnosis: shortness of breath, HTN urgency, Referrals: Andie Whitmore FNP [Primary Care Provider] - 1 Week Discharge Medications: New cefuroxime axetil 250 mg tablet 250 mg PO DAILY 5 Days Qty: 5 0RF doxycycline monohydrate 100 mg capsule 100 mg PO BID Qty: 10 0RF Continued bumetanide 2 mg tablet 2 mg PO DAILY sevelamer carbonate 800 mg tablet 800 mg PO TIDWM PreserVision AREDS-2 250-90-40-1 mg Capsule 2 tab PO BEDTIME calcium acetate(phosphat bind) 667 mg capsule 667 mg PO TIDWM ropinirole 2 mg tablet 4 mg PO TID Rx Instructions: ADDITIONAL FOR BEFORE DIAYLSIS hydralazine 50 mg tablet 100 mg PO BID albuterol sulfate [Ventolin HFA] 90 mcg/actuation HFA aerosol inhaler 2 puff inhalation Q4H PRN (Reason: wheezing) rosuvastatin 5 mg tablet 5 mg PO DAILY Jublia 10 % solution with applicator 1 appl topical DAILY prednisone 5 mg tablet 5 mg PO DAILY abiraterone 250 mg tablet 1,000 mg PO BEDTIME Rx Instructions: must be taken on empty stomach, at least 1 hr before or 2 hrs after a meal/food (DME) blood pressure test kit-large Kit See Rx Instructions .ROUTE DAILY Qty: 1 Rx Instructions: As directed amlodipine 10 mg tablet 10 mg PO DAILY Discharge Orders: Discharge Order (Routine); Ordered 11/25/24 Ordered By: Douglas Lagunas Diet: Advance to usual diet Activity on Discharge: As tolerated Stand Alone Forms: Patient Portal Discharge page Print Language: Turkmen Care Plan Goals: Improve respiratory status, manage volume overload and hypertension, rule out or treat possible pneumonia, and ensure safe discharge with appropriate follow-up and dialysis support. Health Concerns: The primary health concerns for this patient include volume overload due to end-stage renal disease, hypertensive urgency, possible unresolved pneumonia, and underlying heart failure with reduced ejection fraction, all contributing to worsening shortness of breath and respiratory symptoms. Plan of Treatment: Continue antibiotic (Ceftin and Doxycyline) therapy with appropriate oral or IV coverage if pneumonia is still suspected. Resume maintenance hemodialysis on regular MWF schedule. Follow fluid and sodium (salt ) restrictions to help control volume status. Follow up with primary care, and kidney doctor, call for appointment Return to ED if shortness of breath worsens, fever develops, or new symptoms arise . Assessment: see above
--- NOTE | 2024-11-25 10:39 | MHC.CM.PN ---
PT TO [facility] HOME TODAY WITH NO SERVICES SISTER TO TRANSPORT
[2024-11-25] MEDS: Acetaminophen 325 MG TABLET 975 MG PO (12:02)
== END 2024-11-25 13:35 | disposition home or self-care (01) | DRG 291 ==
LOC: HO.ED 23:05 → HO.EDOVER 23:27 → HO.IMC 11-21 00:57 → HO.EDOVER 11-21 01:02 → HO.IMC 11-21 15:03
PROVIDERS: Physician Assistant; Student in an Organized Health Care Education/Training Program; Admitting Provider Physician Assistant; Emergency Provider Emergency Medicine Emergency Medical Services; PCP Registered Nurse; Visit Provider Internal Medicine
DX: I13.2 Hypertensive heart and chronic kidney disease with heart failure and with stage 5 chronic kidney disease, or end stage renal disease (principal); I50.23 Acute on chronic systolic (congestive) heart failure; J96.01 Acute respiratory failure with hypoxia; N18.6 End stage renal disease; J18.9 Pneumonia, unspecified organism; C79.51 Secondary malignant neoplasm of bone; I16.0 Hypertensive urgency; D63.1 Anemia in chronic kidney disease; C61 Malignant neoplasm of prostate; Z99.2 Dependence on renal dialysis; Z20.822 Contact with and (suspected) exposure to COVID-19; Z87.01 Personal history of pneumonia (recurrent); Z79.52 Long term (current) use of systemic steroids; Z87.891 Personal history of nicotine dependence; Z79.899 Other long term (current) drug therapy
CPT/HCPCS: 0241U; 36415; 71045; 71046; 71275; 80048; 80053; 80202; 82803; 83735; 83880; 84484; 85025; 85610; 85730; 87040; 90999; 93005; 93306; 99285; J0360; J0692; J1644; J1836; J1938; J1939; J3370; Q9957; Q9967

== ENCOUNTER → 2024-11-20 18:38 | Outpatient (BNV) | payer MEDICARE, MEDICAID, SELFPAY | PROVIDERS: Admitting Provider Physician Assistant; Emergency Provider Emergency Medicine Emergency Medical Services; PCP Registered Nurse; Visit Provider Internal Medicine | DX: I49.3 Ventricular premature depolarization (principal) | CPT/HCPCS: 93010 ==

== ENCOUNTER → 2024-11-20 18:38 | Outpatient (BNV) | payer MEDICARE, MEDICAID, SELFPAY | PROVIDERS: PCP Registered Nurse; Visit Provider Student in an Organized Health Care Education/Training Program | DX: I51.7 Cardiomegaly (principal); J90 Pleural effusion, not elsewhere classified; R06.02 Shortness of breath | CPT/HCPCS: 71045; 71275 ==

== ENCOUNTER 2024-11-20 23:15 | Outpatient (BNV) | payer MEDICARE, MEDICAID, SELFPAY | END 2024-11-22 14:00 | PROVIDERS: Admitting Provider Physician Assistant; Emergency Provider Emergency Medicine Emergency Medical Services; PCP Registered Nurse; Visit Provider Internal Medicine | DX: I31.39 Other pericardial effusion (noninflammatory) (principal); I34.0 Nonrheumatic mitral (valve) insufficiency; I37.1 Nonrheumatic pulmonary valve insufficiency; I36.1 Nonrheumatic tricuspid (valve) insufficiency | CPT/HCPCS: 93306 ==

== ENCOUNTER 2024-11-20 23:15 | Outpatient (BNV) | payer MEDICARE, MEDICAID, SELFPAY | END 2024-11-23 16:20 | PROVIDERS: Admitting Provider Physician Assistant; Emergency Provider Emergency Medicine Emergency Medical Services; PCP Registered Nurse; Visit Provider Radiology Diagnostic Radiology | DX: I50.9 Heart failure, unspecified (principal) | CPT/HCPCS: 71046 ==

== ENCOUNTER → 2024-11-20 23:15 | Outpatient (BNV) | payer MEDICARE, MEDICAID, SELFPAY | PROVIDERS: Admitting Provider Physician Assistant; Emergency Provider Emergency Medicine Emergency Medical Services; PCP Registered Nurse; Visit Provider Student in an Organized Health Care Education/Training Program | DX: I16.0 Hypertensive urgency (principal); I50.9 Heart failure, unspecified; J90 Pleural effusion, not elsewhere classified; J96.01 Acute respiratory failure with hypoxia; J18.9 Pneumonia, unspecified organism | CPT/HCPCS: 99223; 99232; 99233; 99499 ==

== ENCOUNTER 2024-12-18 10:57 | Outpatient (AMB) | payer MEDICARE, MEDICAID, SELFPAY ==
--- NOTE | 2024-12-18 11:00 | MHC.OFFVIS ---
Intake Visit Reasons: fistula bleeding Intake Note: Patient presents for fistula bleeding. [facility] has had bleeding twice [facility] Unable to do dialysis due to this. Accompanied by: Self / Same As Patient Allergies No Known Allergies [No Known Allergies*] Allergy (Verified 12/18/24 11:02) [facility] HPI fistula bleeding: Details: The patient is a 64-year-old male presenting with issues related to significant bleeding from his vascular access site. The vascular access was initially placed in August 2021 and required balloon angioplasties in March 2022 and March 2023. Despite a period of effective function, the access has recently been problematic, with significant bleeding observed during needle insertions, preventing successful dialysis at his last session. The patient reports these bleeding events have necessitated needle removal and that extra anesthesia is required during procedures due to discomfort. The site's functionality was reliable until these recent occurrences. [facility] Medical History End stage chronic kidney disease ESRD (end stage renal disease) Anemia HTN (hypertension) Creatinine elevation Urinary retention History of upper gastrointestinal bleeding A-V fistula Fusion of lumbar spine Chronic kidney disease Urinary tract infection Enlarged prostate Kidney disease Elevated PSA Anemia Metabolic acidosis Bilateral hydronephrosis Hypocalcemia Acute anemia Acute kidney injury Surgical History History of fusion of cervical spine Hx of esophagogastroduodenoscopy History of transurethral resection of prostate S/P arteriovenous (AV) fistula creation History of hip replacement, total Social History Household Members: Other Household Members Other:: SISTER Housing: House Housing Other:: mobile home Do you presently have visiting nurse or other home services: No Alcohol intake: former Patient Tobacco Use Status: Former Tobacco user Tobacco use type: Cigarette Years Smoked: 50 e-Cigarette/Vaping Use: Former Use Substance Use Type: Marijuana service: No Current occupational status: disabled Review of Systems Const All systems reviewed & are unremarkable except as noted in HPI and below Reports no additional complaints ENT Reports Normal hearing present Card Denies chest pain, Denies chest pain at rest, Denies chest pain with activity and Denies pedal edema Resp Denies cough GI Denies abdominal pain Musc Denies abnormal gait, Denies muscle cramps and Denies radiating pain into limb Skin/Breast Denies skin ulcer and Denies wounds Neuro Reports Normal hearing present and Denies abnormal gait Psych Reports no additional complaints Physical Exam Const General: cooperative, healthy appearing and comfortable Orientation/consciousness: oriented to person, oriented to place and oriented to time HEENT Head: Yes normal to inspection Neck Neck: Yes normal visual inspection Carotids: no bruits Chest Chest palpation & inspection: normal inspection of the chest Resp Effort & Inspection: normal respiratory effort and able to speak in complete sentences Auscultation: clear to auscultation bilaterally, no crackles, no rales, no rhonchi and no wheezes Cardio Rate: regular rate Rhythm: regular rhythm Heart sounds: S1 normal heart sound present and S2 normal heart sound present Bruits: no carotid bruits Peripheral pulses: Peripheral pulses 2+ throughout GI Inspection: Yes normal to inspection Skin Wounds: no wounds Hair: normal Neuro General: oriented to person, oriented to place and oriented to time Cranial nerves: Yes CN's II-XII intact bilaterally and Yes Normal hearing present Cognition (Neuro): normal cognition Motor exam (neuro): 5/5 motor strength present throughout Extrem Other: Left arm pulsatile flow through fistula General: No clubbing, No cyanosis and Yes edema Psych Appearance: grossly normal Mental Status: mental status grossly normal Speech and movement: Normal speech and movement present Assessment & Plan Assessment & Plan (1) ESRD (end stage renal disease): Comment: 08/03/2021 - left arm basilic vein transposition 03/23/2022 - left are fistulogram with plasty x2 03/16/2023 - left arm fistula plasty x2 (8x40 DCB) Code(s): N18.6 - End stage renal disease Category: Medical Plan: In short the patient will require left upper extremity fistulogram. I discussed with the patient the need for a fistulogram to assess the vascular access site and address the significant bleeding issue encountered during prior needle insertions. The patient will be scheduled for tomorrow, allowing immediate evaluation and potential intervention to restore proper function. I explained the benefits of the procedure in preventing further bleeding and ensuring effective dialysis access, highlighting the reduced bleeding risk due to the absence of systemic blood thinners. Risks benefits complications of the procedure were discussed in detail with the patient. He agreed and we will move forward for tomorrow. Coding Level of Care Code Est Pt Level 4 (05763) Diagnoses ESRD (end stage renal disease) N18.6
--- OUTSIDE RECORDS SUMMARY | 2024-12-18 12:15 | XMS_ITS | Encounter Summary ---
Author Organization [employer] Address [address] [place] [address] Care Team Providers Care Science Teacher Name Role Phone Andie Whitmore Primary Care Provider Trevor Resrtepo MD Unavailable [phone] MD Unavailable [phone] Kamini Chavarria MD Unavailable Winston Bhagat DPM Unavailable [phone] Reason for Visit * Reason Onset Date Comments Hospital Follow-up 11/09/2024 Encounter Details Date Type Department Care Team ([facility] st Contact Info) Description 11/09/[address] [facility] [address] [place], [place] [id number] Andie Whitmore FNP [address] [place] [address] Hospital Follow-up Social History Tobacco Use Types [...] from pt requesting a HDF appt. Hospital: [facility] Date of admission: 11/04/24 Discharge date: 11/08/24 Diagnosed: pneumonia *Send message to [place] Clinical Care Coordinators documented in this encounter Plan of Treatment Upcoming Encounters Date Type Department Care Team ([facility] st Contact Info) Description 02/18/2025 11:15 AM EDT Office Visit [facility] [address] [place] [address] Andie Whitmore FNP [address] [place] [address] documented as of this encounter Visit Diagnoses Not on filedocumented in this encounter Additional Health Concerns Assessment Noted Time PHQ-9 Depression Total Score: 1 12/23/19 23 3:02 PM EDT documented as of this encounter Care Teams Science Teacher Relationship Specialty Start Date End Date Andie Whitmore FNP [address] [place] [address] PCP - General Family Medicine 11/04/21 Trevor Restrepo MD [address] [place] [address] Urology 07/29/24 Juvenal Cr MD [address] [facility] [address] [place] [id number] Nephrology 07/29/24 Kamini Chavarria MD [address] [facility] [address] [place] [address] Neurology 07/29/24 Winston Bhagat DPM [address] [facility] [address] [place] [address] Podiatry 07/29/24 documented as of this encounter
--- OUTSIDE RECORDS SUMMARY | 2024-12-18 12:15 | XMS_ITS | Encounter Summary ---
Author Organization [employer] Address [address] [facility] 7t [place] [address] Care Team Providers Care Ip Network Architect Name Role Phone Andie Whitmore Primary Care Provider [phone] Trevor Restrepo MD Unavailable [phone] MD Unavailable [phone] Kamini Chavarria MD Unavailable Winston Bhagat DPM Unavailable [phone] Reason for Visit * Reason Onset Date Comments Medication Question 02/29/2024 Encounter Details Date Type Department Care Team (Late st Contact Info) Description 02/29/2024 Telephone [facility] MEDICINE [address] [place] [address] Andie Whitmore FNP [address] [place], [place] [id number] Medication Question Social History Tobacco Use Types [...] was discussed in sick appt on 02/27 mortgage or loan underwriter does not see ant medication pending documented in this encounter Plan of Treatment Upcoming Encounters Date Type Department Care Team (Late st Contact Info) Description 02/18/2025 11:15 AM EDT Office Visit [facility] MED & PEDS [address] [place] [address] Andie Whitmore FNP [address] [place] [address] documented as of this encounter Visit Diagnoses Not on filedocumented in this encounter Additional Health Concerns Assessment Noted Time PHQ-9 Depression Total Score: 1 12/23/19 23 3:02 PM EDT documented as of this encounter Care Teams Ip Network Architect Relationship Specialty Start Date End Date Andie Whitmore FNP [address] [place] [address] PCP - General Family Medicine 11/04/21 Trevor Restrepo MD [address] [place] [address] Urology 07/29/24 Juvenal Cr MD 100 [facility] [address] [place] [address] Nephrology 07/29/24 Kamini Chavarria MD [address] [place] [address] [address] [place] [address] Neurology 07/29/24 Winston Bhagat DPM [address] [place] [address] Podiatry 07/29/24 documented as of this encounter
--- OUTSIDE RECORDS SUMMARY | 2024-12-18 12:15 | XMS_ITS | Clinical Summary ---
Author Organization [address] [facility] Address [address] [place] [address] Phone Care Team Providers Care Revenue Enforcement Collection Agent Name Role Phone Andie Whitmore RN Primary [...] disease 03/05/2024 ESRD (end stage renal disease) ([facility] V24, [facility] V28) 03/02/2024 Heart failure with mildly re duced ejection fraction ([facility] V24, [facility] V28) 03/02/2024 HTN (hypertension) 03/02/2024 Obstructive uropathy 03/02/2024 Onychauxis 03/02/2024 Onychomycosis 03/02/2024 Prostate cancer metastatic t o bone ([facility] V24, [facility] V28) 03/02/2024 Secondary hyperparathyroidism of renal origin ([place] V24) 03/02/2024 Encounters Date Type Department Care Team Description 12/06/2024 1:30 PM EDT Office Visit Orthopedic Surgery [facility] [address] [facility] [address] [place] [address] Winston Bhagat DPM Acquired hallux varus, left (Primary Dx); Dermatophytosis of nail; Difficulty walking; Pain in toe of left foot; Pain in toe of right foot; Bilateral femoral artery stenosis ([facility] V24) 10/22/2024 2:15 PM EDT - 10/22/2024 3:50 PM EDT Emergency [facility] Emergency [address] [place] [phone] Diallo Ybarra MD Arteriovenous fistula of left upper extremity ([facility] V24) (Primary Dx); Hemorrhage of arteriovenous fistula, initial encounter ([facility] V24) Discharge Disposition: Home or Self Care [...] - - Weight 62.1 kg (137 lb) 12/06/2024 1:47 PM EDT Height 160 cm (5' 2.99 ) 12/06/2024 1:47 PM EDT Body Mass Index 24.27 12/06/2024 1:47 PM EDT Plan of Treatment Upcoming Encounters Date Type Department Care Team (Late st Contact Info) Description 03/12/2025 1:15 PM EDT Office Visit Orthopedic Surgery - [facility] [address] [phone] Winston Bhagat, DPM [address] [address] Health Maintenance Due Date Last Done Comments [...] 12/17/2024 12/17/2014 Hypertension/CHF/CAD Annual BMP Blood Test 11/20/2025 11/20/2024, 11/03/2024, 09/08/2024 Cholesterol Screening (Lipid Panel) 10/31/2029 10/31/2024, 08/31/2024, 07/26/2024, Additional history exists Zoster Vaccines Completed 03/13/2023, 11/15/2022 Influenza Vaccine [...] around the site, then two 5-0 Prolene [id number]-vt-rbcev stitches applied with bleeding controlled Diallo Ybarra MD IN CLINIC/BEDSIDE ORDERAB LES Final Result from Last 3 Months Insurance MEDICAID - [place] MEDICARE Care Teams Revenue Enforcement Collection Agent Relationship Specialty Start Date End Date Andie Whitmore RN [address] [address] PCP - General 12/14/23
--- OUTSIDE RECORDS SUMMARY | 2024-12-18 12:15 | XMS_ITS ---
Author Name [facility] Address [address] [place] [address] Phone [phone] Organization [facility] e, NA DOCUMENT DISCLAIMER Multiple document versions may exist, please be sure you review the latest version. The information in the [facility] [place] Continuity of Care Document represents a summary [...] Instructions Dosage Route Start Date End Date [facility] amlodipine 10 mg Take by [...] Value Relevant Reference Range Interpre tation Date WBC (No Diff) 8.03 1000/mcL 4.80 - 10.80 1000/mcL - August 25, 2024 Neutrophils 80.8 % 40.0 - 75.0 % High August Infectious Diseases Result Type Result Value Relevant Referen ce Range Interpretation Date Hep B Surface Ag (HBsAg) Negative No Reference Range Provided Normal July 04, 2024 TRANSPLANT WAITLIST STATUS No Information on Transplant Waitlist Status
--- OUTSIDE RECORDS SUMMARY | 2024-12-18 12:15 | XMS_ITS | Encounter Summary ---
Author Organization [facility] Address [address] [facility] [address] [address] Phone Care Team Providers Care Acid Leveler Name Role Phone Unavailable Primary Care Provider Unavailabl e Reason for Visit * Reason Onset Date Comments Med Refill 07/17/2021 Encounter Details Date Type Department Care Team (Late st Contact Info) Description 07/17/2021 Refill [facility] [address] [place] [address] [place] [phone] Radha Palmer 100 [facility] [address] [place] [address] Social History Tobacco Use Types [...]
--- OUTSIDE RECORDS SUMMARY | 2024-12-18 12:15 | XMS_ITS | Encounter Summary ---
Author Organization [facility] Address [address] [address] Phone Care Team Providers Care School Bus Driver Name Role Phone Unavailable Primary Care Provider Unavailabl e Encounter Details Date Type Department Care Team ([facility] st Contact Info) Description 11/12/2024 TCM in Dialysis Clinic [facility] [address] [address] Clinton Ortega MD [address] [address] Social History Tobacco Use Types [...] obtained. The patient was seen for a [id number] visit as part of Transitional Care Management services. Attending Sponge Maker: CLINTON ORTEGA Dialysis Location: [facility] Schedule: Shift: 1 INTERACTIVE CONTACT Contact [...] patient or caregiver VISIT DIAGNOSES CPT Code 42530 - High complexity, seen within 7 days [...]
--- OUTSIDE RECORDS SUMMARY | 2024-12-18 12:15 | XMS_ITS | Encounter Summary ---
Author Organization [employer] Address 75 [facility] 7t [place] [address] Care Team Providers Care Ethanol Operations Manager Name Role Phone Andie Whitmore Primary Care Provider [phone] Trevor Restrepo MD Unavailable [phone] Juvenal Cr MD Unavailable [phone] Kamini Chavarria MD Unavailable [phone] Winston Bhagat DPM Unavailable [phone] Reason for Referral * Imaging (Urgent) - Closed Specialty Diagnoses / Procedures Referred By Contac t Referred To Contact Cardiology Diagnoses ESRD (end stage renal disease) ([facility]) Primary hypertension Shortness of breath Procedures Transthoracic Echo (TTE) Complete Andie Whitmore FNP [address] [place] [address] Phone: tel: fax: [address] Phone: tel: fax: Referral ID Status Reason Start Date Expiration Date V isits Requested Visits Authorized [id number] Closed Perform Procedure 06/29/2023 06/28/2024 1 1 Reason for Visit * Reason Onset Date Comments Call Back Request 06/21/2023 Encounter Details Date Type Department Care Team (Late st Contact Info) Description 06/21/2023 Telephone [facility] MEDICINE [address] [place] [address] Andie Whitmore FNP [address] [place] [address] Call Back Request Social History Tobacco Use [...] order of the heart. Contact pt at [phone] * Telephone Encounter - Iram Pierre RN [...] just once, had an EKG, and the hoist worker said he was just fine. Patient has [...] having dialysis tomorrow. Please contact pt at [phone] documented in this encounter Plan of Treatment Upcoming Encounters Date Type Department Care Team ([facility] st Contact Info) Description 02/18/2025 11:15 AM EDT Office Visit [facility] MED & PEDS [address] [place] [address] Andie Whitmore FNP [address] [place] [address] Scheduled Orders Name Type Priority Associated Diagnoses Order Schedule Transthoracic Echo (TTE) Complete Echocardiography Urgent ESRD (end stage renal disease) ([facility]) Primary hypertension Shortness of breath Expected: 06/29/2023 (Approximate), Expires: 06/29/2025 documented as of this encounter Visit Diagnoses Diagnosis ESRD (end stage renal disease) ([facility])- Primary End stage renal disease Primary hypertension Unspecified essential hypertension Shortness of breath documented in this encounter Additional Health Concerns Assessment Noted Time PHQ-9 Depression Total Score: 1 12/23/19 23 3:02 PM EDT documented as of this encounter Care Teams Ethanol Operations Manager Relationship Specialty Start Date End Date Andie Whitmore FNP [address] [place] [address] PCP - General Family Medicine 11/04/21 Trevor Restrepo MD [address] [place] [address] Urology 07/29/24 Juvenal Cr MD 100 [facility] [address] [place] [address] Nephrology 07/29/24 Kamini Chavarria MD 15 [facility] [address] [place] [address] Neurology 07/29/24 Winston Bhagat DPM [address] [place] [address] Podiatry 07/29/24 documented as of this encounter
--- OUTSIDE RECORDS SUMMARY | 2024-12-18 12:15 | XMS_ITS | Clinical Summary ---
Author Organization [facility] Address [address] [place] [address] [address] [place] [address] Phone Care Team Providers Care Media Associate Name Role Phone Unavailable Primary Care Provider [...] evening. 60 tablet 11 05/21/2024 5 Active losartan (Cozaar) 50 MG tablet Take 1 tablet (50 mg total) by mouth 4 (four) times a week: Tues, Thurs, Sat, Sun 16 tablet 11 12/04/2024 6 Active Active Problems Problem Noted Date Diagnosed Date Carcinoma of prostate 04/21/2021 Anemia of chronic renal failure 04/21/2021 Stage 5 chronic kidney disease 04/21/2021 Hyperkalemia 04/21/2021 Secondary hyperparathyroidism of renal origin Hypocalcemia 04/21/2021 Essential (primary) hypertension 04/21/2021 Acute nontraumatic kidney injury 04/17/2021 Hypertensive disorder 04/17/2021 Encounters Date Type Department Care Team Description 12/10/2024 Treatment [facility] [address] [phone] Juvenal Cr MD End stage renal disease; Dependence on renal dialysis 12/03/2024 Treatment [facility] [address] [phone] Juvenal Cr MD End stage renal disease; Dependence on renal dialysis 12/03/2024 Orders Only [facility] [address] [place] [address] Bianca Mccain, BRITT 11/26/2024 Treatment [facility] [address] [phone] Juvenal Cr MD End stage renal disease; Dependence on renal dialysis 11/12/2024 TCM in Dialysis Clinic [facility] [address] [phone] Juvenal Cr MD 11/12/2024 Treatment [facility] [address] [phone] Juvenal Cr MD End stage renal disease; Dependence on renal dialysis 11/02/2024 Treatment [facility] [address] [phone] Juvenal Cr MD End stage renal disease; Dependence on renal dialysis 10/31/2024 Treatment [facility] [address] [phone] Juvenal Cr MD End stage renal disease; Dependence on renal dialysis 10/22/2024 Treatment [facility] [address] [phone] Juvenal Cr MD End stage renal disease; Dependence on renal dialysis 10/15/2024 Treatment [facility] [address] [phone] Juvenal Cr MD End stage renal disease; Dependence on renal dialysis 10/08/2024 Treatment [facility] [address] [phone] Juvenal Cr MD End stage renal disease; Dependence on renal dialysis 10/01/2024 Treatment [facility] [address] [phone] Juvenal Cr MD End stage renal disease; Dependence on renal dialysis 09/28/2024 Treatment [facility] [address] [place] [phone] Juvenal Cr MD End stage renal disease; Dependence on renal dialysis 09/27/2024 Treatment [facility] [address] [phone] Juvenal Cr MD from Last 3 Months [...] Procedure Name Priority Date/Time Associated Diagnosis Comments BEBA () Routine 12/12/2024 3:00 AM EDT POTASSIUM Routine 12/12/2024 3:00 AM EDT BEBA () Routine 12/10/2024 3:00 AM EDT KT/V NATURAL LOG, URR (HC) Routine 12/10/2024 3:00 AM EDT HEPATITIS B SURFACE ANTIGEN W/REFL CONFIRM Routine 12/05/2024 3:00 AM EDT TRANSFERRIN SATURATION Routine 3:00 AM EDT PROTEIN, TOTAL, SERUM Routine 12/05/2024 3:00 AM EDT ELECTROLYTE PANEL Routine 12/05/2024 3:0 0 AM EDT MAGNESIUM Routine 12/05/2024 3:00 AM EDT LIH (HC) Routine 12/05/2024 3:00 AM EDT LACTATE DEHYDROGENASE Routine 12/05/2024 3:00 AM EDT CREATININE, SERUM Routine 12/05/2024 3:0 0 AM EDT GLUCOSE, RANDOM Routine 12/05/2024 3:00 AM EDT BUN/CREATININE RATIO Routine 12/05/2024 3:00 AM EDT BILIRUBIN, TOTAL Routine 12/05/2024 3:00 AM EDT ALT Routine 12/05/2024 3:00 AM EDT AST Routine 12/05/2024 3:00 AM EDT ALKALINE PHOSPHATASE Routine 12/05/2024 3:00 AM EDT CALCIUM PHOSPHORUS PRODUCT, ADJUSTED (HC) Routine 12/05/2024 3:00 AM EDT FERRITIN Routine 12/05/2024 3:00 AM EDT PTH, INTACT Routine 12/05/2024 3:00 AM EDT KT/V NATURAL LOG, URR (HC) Routine 12/05/2024 3:00 AM EDT CBC AND DIFFERENTIAL Routine 12/05/2024 3:00 AM EDT HEMOGLOBIN AND HEMATOCRIT, BLOOD Routine 11/14/2024 3:00 [...] LIH (HC) Routine 09/26/2024 3:00 AM EST OCCULT BLOOD X 3, STOOL Routine 01/22/2022 from Last 3 Months or Most Recently Relevant to Health Maintenance Results * LIH (12/12/2024 3:00 AM EDT) Only the most recent of7 resultswithin the time period is included. Lipemia Normal Normal [facility] Icterus Normal Normal [facility] Hemolysis Normal Normal [facility] 12/12/2024 3:00 AM EDT 12/13/2024 12:09 PM EDT us Juvenal Cr MD LAB [id number] SOLICITED RESULTS Final Result [facility] [address] [place] [address] * Potassium (12/12/2024 3:00 AM EDT) Only the most recent of2 resultswithin the time period is included. Potassium 4.3 3.4 - 5.0 mEq/L [facility] 12/12/2024 3:00 AM EDT 12/13/2024 12:09 PM EDT Juvenal Cr MD LAB BLOOD ORDERABLES Final Re sult Performing Organization Address City/[facility]/ZIP Co de Phone Number [facility] [address] [place] [address] * (ABNORMAL) Kt/V Natural Log, URR (12/10/2024 3:00 AM EDT) Only the most recent of4 resultswithin the time period is included. [facility] Treatment Time 225 min [facility] Pre-Weight, lb 66.2 kg [facility] Post-Weight, lb 62.8 kg [facility] Ultrafiltration Rate 14(H) <=13 mL/kg/hr [facility] Comment: Recommend achieving Ultrafiltration Rate (UFR) <=10 mL/kg/hr References: Gregory LIN et al. Kidney Int. 2010; 79(2):250-257 BUN Post Dialysis 27(H) 7 - 25 mg/dL [facility] BUN 75(H) 7 - 25 mg/dL [facility] UREA REDUCTION RATIO (%) 64(L) >=65 % [facility] Kt/V Natural Log 1.26 >=1.2 [facility] 12/10/2024 3:00 AM EDT 12/11/2024 2:28 PM EDT Juvenal Cr MD LAB [id number] SOLICITED RESULTS Final Result Performing Organization Address [facility]/ZIP Co de Phone Number [facility] [address] [place] [address] * (ABNORMAL) Calcium Phosphorus Product, Adjusted (12/05/2024 3:00 AM EDT) Only the most recent of3 resultswithin the time period is included. Albumin 4.3 3.6 - 5.4 g/dL [facility] Calcium 9.9 8.6 - 10.3 mg/dL [facility] Phosphorus, Serum 6.0(H) 2.5 - 5.0 mg/dL [facility] Ca*PO4 59.4(A) <55.0 mg2/dL2 [facility] Calcium, Adjusted Total 9.9 8.6 - 10.3 mg/dL [facility] CA*PO4 CORRCTD 59.4(A) <55.0 mg2/dL2 [facility] 12/05/2024 3:00 AM EDT 12/06/2024 12:58 PM EDT Jvuenal Cr MD LAB [id number] SOLICITED RESULTS Final Result Performing Organization Address [facility] de Phone Number [facility] [address] [place] [address] * Hepatitis B Surface Ag w/Reflex Confirmation (12/05/2024 3:00 AM EDT) Only the most recent of3 resultswithin the time period is included. Hep B Surface Antigen Negative Negative [facility] 12/05/2024 3:00 AM EDT 12/06/2024 12:58 PM EDT Juvenal Cr MD LAB BLOOD ORDERABLES Final Re sult Performing Organization Address [facility] de Phone Number [facility] [address] [place] [address] * BUN/CREATININE RATIO (12/05/2024 3:00 AM EDT) BUN/Creatinine Ratio 9.6 <=23.0 [facility] 12/05/2024 3:00 AM EDT 12/06/2024 12:58 PM EDT Juvenal Cr MD LAB [id number] SOLICITED RESULTS Final Result Performing Organization Address [facility] de Phone Number [facility] [address] [place] [address] * (ABNORMAL) TSAT (12/05/2024 3:00 AM EDT) Only the most recent of3 resultswithin the time period is included. Pathologist [facility] Iron 45(L) 65 - 175 ug/dL [facility] Transferrin 152(L) 215 - 365 mg/dL [facility] TIBC 213 211 - 406 ug/dL [facility] Iron Saturation (TSat) 21(L) 22 - 52 % [facility] 12/05/2024 3:00 AM EDT 12/06/2024 12:58 PM EDT us Juvenal Cr MD LAB BLOOD ORDERABLES Final Re sult [facility] [address] [place] [address] * (ABNORMAL) CBC and Differential (12/05/2024 3:00 AM EDT) Only the most recent of3 resultswithin the time period is included. [facility] DIFFERENTIAL MANUAL, 2 Not Indicated [facility] White Blood Cells 6.5 4.2 - 9.1 K/uL [facility] RBC 3.55(L) 4.63 - 6.08 M/uL [facility] Hgb 10.5(L) 13.7 - 17.5 g/dL [facility] Hemoglobin x 3 31.5(L) 41.1 - 52.5 g/dL [facility] Hematocrit 32.8(L) 40.1 - 51.0 % [facility] MCV 92.4(H) 79.0 - 92.2 fL [facility] MCH 29.6 25.7 - 32.2 pg [facility] MCHC 32.0(L) 32.3 - 36.5 g/dL [facility] RDW 19.1(H) 11.6 - 14.4 % [facility] Platelets 198 163 - 337 K/uL [facility] Neutrophils Relative 76.1(H) 34.0 - 67.9 % [facility] Lymphocytes Relative 11.4(L) 21.8 - 53.1 % [facility] Monocytes 7.1 5.3 - 12.2 % [facility] Eosinophils Relative 3.2 0.8 - 7.0 % [facility] Basophils Relative 1.7(H) 0.2 - 1.2 % [facility] Immature Granulocytes 0.5 0.0 - 1.0 % [facility] 12/05/2024 3:00 AM EDT 12/06/2024 12:26 PM EDT Juvenal Cr MD LAB BLOOD ORDERABLES Final Re sult Performing Organization Address [facility] de Phone Number [facility] [address] [place] [address] * (ABNORMAL) ALT (12/05/2024 3:00 AM EDT) Only the most recent of3 resultswithin the time period is included. ALT (SGPT) 9(L) 10 - 49 U/L [facility] 12/05/2024 3:00 AM EDT 12/06/2024 12:58 PM EDT Juvenal Cr MD LAB BLOOD ORDERABLES Final Re sult Performing Organization Address [facility] de Phone Number [facility] [address] [place] [address] * AST (12/05/2024 3:00 AM EDT) Only the most recent of3 resultswithin the time period is included. AST (SGOT) 13 <34 U/L [facility] 12/05/2024 3:00 AM EDT 12/06/2024 12:58 PM EDT Juvenal Cr MD LAB BLOOD ORDERABLES Final Re sult Performing Organization Address [facility] de Phone Number [facility] [address] [place] [address] * (ABNORMAL) Protein, total (12/05/2024 3:00 AM EDT) Only the most recent of3 resultswithin the time period is included. Total Protein 6.1(L) 6.4 - 8.9 g/dL [facility] 12/05/2024 3:00 AM EDT 12/06/2024 12:58 PM EDT Juvenal Cr MD LAB BLOOD ORDERABLES Final Re sult Performing Organization Address [facility] Co de Phone Number [facility] [address] [place] [address] * Alkaline phosphatase (12/05/2024 3:00 AM EDT) Only the most recent of3 resultswithin the time period is included. Alkaline Phosphatase 99 46 - 116 U/L [facility] 12/05/2024 3:00 AM EDT 12/06/2024 12:58 PM EDT Juvenal Cr MD LAB BLOOD ORDERABLES Final Re sult Performing Organization Address [facility] de Phone Number [facility] [address] [place] [address] * (ABNORMAL) PTH, Intact (12/05/2024 3:00 AM EDT) Only the most recent of3 resultswithin the time period is included. PTH, Intact 70(L) 160 - 721 pg/mL [facility] Comment: Suggested (KDIGO) ESRD maintenance range is two to nine times the upper normal limit (80.1 pg/mL) for the laboratory. 12/05/2024 3:00 AM EDT 12/06/2024 12:58 PM EDT Juvenal Cr MD LAB BLOOD ORDERABLES Final Re sult Performing Organization Address [facility] de Phone Number [facility] [address] [place] [address] * Magnesium (12/05/2024 3:00 AM EDT) Only the most recent of3 resultswithin the time period is included. Magnesium 2.0 1.9 - 2.7 mg/dL [facility] 12/05/2024 3:00 AM EDT 12/06/2024 12:58 PM EDT Juvenal Cr MD LAB BLOOD ORDERABLES Final Re sult Performing Organization Address [facility] de Phone Number [facility] [address] [place] [address] * Lactate dehydrogenase (12/05/2024 3:00 AM EDT) Only the most recent of3 resultswithin the time period is included. LDH 243 120 - 246 U/L [facility] 12/05/2024 3:00 AM EDT 12/06/2024 12:58 PM EDT Juvenal Cr MD LAB BLOOD ORDERABLES Final Re sult Performing Organization Address [facility] de Phone Number [facility] [address] [place] [address] * Glucose, random (12/05/2024 3:00 AM EDT) Only the most recent of3 resultswithin the time period is included. Glucose 95 70 - 99 mg/dL [facility] Comment: ADA guidelines outline the following fasting glucose ranges: Normal: ? <100 Prediabetes: 100-125 Diabetes: ? >125 12/05/2024 3:00 AM EDT 12/06/2024 12:58 PM EDT Juvenal Cr MD LAB BLOOD ORDERABLES Final Re sult Performing Organization Address [facility] de Phone Number [facility] [address] [place] [address] * (ABNORMAL) Ferritin (12/05/2024 3:00 AM EDT) Only the most recent of3 resultswithin the time period is included. Ferritin 1,273(H) 22 - 322 ng/mL [facility] 12/05/2024 3:00 AM EDT 12/06/2024 12:58 PM EDT Juvenal Cr MD LAB BLOOD ORDERABLES Final Re sult Performing Organization Address [facility] de Phone Number [facility] [address] [place] [address] * (ABNORMAL) Creatinine, serum (12/05/2024 3:00 AM EDT) Only the most recent of3 resultswithin the time period is included. Creatinine 6.02(H) 0.70 - 1.30 mg/dL [facility] 12/05/2024 3:00 AM EDT 12/06/2024 12:58 PM EDT Juvenal Cr MD LAB BLOOD ORDERABLES Final Re sult Performing Organization Address [facility] de Phone Number [facility] [address] [place] [address] * Bilirubin, total (12/05/2024 3:00 AM EDT) Only the most recent of3 resultswithin the time period is included. Total Bilirubin 0.4 0.3 - 1.2 mg/dL [facility] 12/05/2024 3:00 AM EDT 12/06/2024 12:58 PM EDT Juvenal Cr MD LAB BLOOD ORDERABLES Final Re sult Performing Organization Address [facility] de Phone Number [facility] [address] [place] [address] * (ABNORMAL) Electrolyte panel (12/05/2024 3:00 AM EDT) Only the most recent of3 resultswithin the time period is included. Sodium 136 136 - 145 mEq/L [facility] Potassium 3.7 3.4 - 5.0 mEq/L [facility] Chloride 96(L) 98 - 107 mEq/L [facility] Bicarbonate (CO2) 21 21 - 31 mEq/L [facility] Anion Gap 19(H) 3 - 14 mEq/L [facility] 12/05/2024 3:00 AM EDT 12/06/2024 12:58 PM EDT Juvenal Cr MD LAB BLOOD ORDERABLES Final Re sult Performing Organization Address [facility] de Phone Number [facility] [address] [place] [address] * (ABNORMAL) Hemoglobin and hematocrit (11/14/2024 3:00 AM EDT) Only the most recent of2 resultswithin the time period is included. Hgb 9.7(L) 13.7 - 17.5 g/dL [facility] Hematocrit 29.3(L) 40.1 - 51.0 % [facility] Hemoglobin x 3 29.1(L) 41.1 - 52.5 g/dL [facility] 11/14/2024 3:00 AM EDT 11/15/2024 12:22 PM EDT Juvenal Cr MD LAB BLOOD ORDERABLES Final Re sult Performing Organization Address [facility] de Phone Number [facility] [address] [place] [address] * Lipid panel (10/31/2024 3:00 AM EDT) Cholesterol 133 <200 mg/dL [facility] Comment: Optimal: [...] Re sult Performing Organization Address [facility] Co de Phone Number [facility] [address] [place] [address] * (ABNORMAL) Phosphorus (10/26/2024 3:00 AM EDT) Phosphorus, Serum 9.8(H) 2.5 - 5.0 mg/dL [facility] 10/26/2024 3:00 AM EDT 10/27/2024 1:10 PM EDT Juvenal Cr MD LAB BLOOD ORDERABLES Final Re sult Performing Organization Address [facility] de Phone Number [facility] [address] [place] [address] * Occult blood x 3, stool (01/22/2022) Occult Blood, Stool #1 Negative Negative [facility] Comment: Performed by [facility]. Occult Blood, Stool #2 Negative Negative [facility] Comment: Performed by [facility]. Collection Time 600 [facility] 01/22/2022 01/27/2022 1:2 3 PM EDT Narrative [facility] - 01/27/2022 Unless otherwise specified, test(s) performed at: [facility], [address] [place], [place] [id number] METER/RELAY TECHNICIAN: Cruzito Knutson M.D. For any questions, please call customer service at FREQUENCY:OTHER Resulting Agency Comment Specimen source: Occult Blood Card us Juvenal Cr MD LAB BODY FLUIDS AND STOOLS OR DERABLES Final Result [facility] from Last 3 Months or Most Recently Relevant to Health Maintenance Insurance Medicare [place]
--- OUTSIDE RECORDS SUMMARY | 2024-12-18 12:15 | XMS_ITS | Clinical Summary ---
Author Organization [employer] Address [address] [facility] [address] [place] [address] Care Team Providers Care Software Licensing Specialist Name Role Phone Andie Whitmore Primary Care Provider [phone] Trevor Restrepo MD Unavailable [phone] MD Unavailable Kamini Chavarria MD [...] breakfast, with lunch, and with evening meal. 08/06/19 23 Active Misc. Devices (Pulse Oximeter) miscIndications:SO B (shortness of breath) Use as needed to check oxygen level 1 each 06/20/20 23 Active Blood Pressure Monitor kitIndications:Briana maloney hypertension Check blood pressure twice a weed. Dx hypertension 1 kit 06/20/20 23 Active predniSONE (Deltasone) 5 MG tablet Take 2 tablets by mouth 1 (one) time each day. Takes with abiraterone 09/08/19 23 Active Efinaconazole (Jublia) 10 % solutionIndication s:Onychauxis,Onych [...] bedtime. (Cholesterol) 90 tablet 3 12/19/19 24 Active Ventolin HFA 108 (90 Base) MCG/ACT inhalerIndications :At risk for shortness of breath INHALE 2 PUFFS INTO THE LUNGS EVERY 4 HOURS NEEDED FOR WHEEZING 18 g 11 04/26/20 24 Active amLODIPine (Norvasc) 10 MG tablet TAKE 1 TABLET(10 MG) BY MOUTH IN THE MORNING 90 tablet 3 11/10/19 25 Active ferrous sulfate 324 (65 Fe) MG EC tablet Take 1 tablet by mouth Once per day. 09/21/19 25 Active hydrALAZINE (Apresoline) 100 MG tablet Take 1 tablet by mouth 2 times daily. 05/21/20 24 Active Active Problems Problem Noted Date [...] Following with Podiatry - Dr. Bhagat at [place] [facility] Jun 2024: Debridement of toenails 6-10, with plan to cont topical Jublia. RTC 3 months. Healthcare maintenance 12/12/2023 Overview (12/12/2023): Optometry: CEE 11/10/23 (Dr. Mohr). Noted trace macular edema, follow up in 3 months PSA: hx prostate CA, following with [facility] Urology Heart failure with mildly re duced ejection fraction (HFmrEF) 08/01/2023 Overview (11/30/2024): Jun-Jul 2023 pt experienced new onset symptoms including SOB, THACKER, swelling BLE Echo completed 07/19/23 with LVEF: 45-50% and small pericardial effusion. Pt was started on Bumex and increased fluid removal at dialysis. Minimal improvement of symptoms. CXR completed 07/19/23 with findings c/w pulmonary edema BNP elevated Jul 2023: 2,716 Following with Cards - Dr. Vicente Dubois on non-dialysis days Exacerbation w/ Hospitalization 08/04 - 08/07/23 at [facility] Exacerbation w/ Hospitalization 11/20-11/25/24 at [facility] ESRD on HD: communication with Dr. Cr and dry weight decreased from 64kg to 60kg Assessment & Plan (11/30/2024 4:55 PM EDT): - Recent exacerbation with blood pressure elevation. Will increase dose of Bumex to 4 mg on nondialysis days. Encouraged to follow-up with nephrology as scheduled on Tuesday. Would also benefit from cardiology follow-up. Reviewed ED precautions Assessment & Plan (12/12/2023 3:37 PM EDT): [...] uropathy 02/18/2023 Overview (12/12/2023): Following with Dr. Resterpo ([facility] Urology) Hx of bilateral stent placement ESRD (end stage renal disease) 11/05/2021 Assessment & Plan (04/27/2023 2:16 PM EDT): -Hemodialysis MWF at [address] [place] [address] Dialysis (first shift) -Access: Left arm basilic vein transposition performed on 08/03/2021. -Mar 2023: fistulagram performed, [facility] Vascular Dr. Blackburn. Has been working well since Assessment & Plan (12/22/2022 8:12 PM EDT): -Hemodialysis MWF at [address] [place] [address] Dialysis -Access: Left arm basilic vein transposition performed on 08/03/2021. Have started to access fistula at dialysis -Left AVF w/ +thrill/+bruit Prostate cancer metastatic to bone 11/05/2021 Assessment & Plan (07/29/2024 10:41 PM EST): [place] score ranging from 7 to 9. 10/05/21 cystoscopy with bilateral ureteral stent exchange performed by [facility] Urology Continue to follow with [facility] - Dr. Restrepo Continue to follow with [facility] Heme/Onc Previously on Bicalutamide 50mg PO daily through Urology, currently taking Abiraterone 01/24/23: cystoscopy with bilateral stent exchange November 2023: Bone scan stable, no progression Target 3 years hormone therapy then reduction to intermittent anti-androgen Apr 2024: DXA normal Assessment & Plan (04/27/2023 2:17 PM EDT): ?? [place] score ranging from 7 to 9. ?? 10/05/21 cystoscopy with bilateral ureteral stent exchange performed by [facility] Urology ?? Continue to follow with [facility] Urology - Dr. Restrepo ?? Continue to follow with [facility] Heme/Onc ?? Previously on Bicalutamide 50mg PO daily through Urology, currently taking Abiraterone ?? 01/24/23: cystoscopy with bilateral stent exchange Assessment & Plan (12/22/2022 8:13 PM EDT): ?? [place] score ranging from 7 to 9. ?? 10/05/21 cystoscopy with bilateral ureteral stent exchange performed by [facility] Urology ?? Continue to follow with [facility] Urology - Dr. Restrepo ?? Continue to follow with [facility] Heme/Onc ?? Previously on Bicalutamide 50mg PO daily through Urology, currently taking Abiraterone ?? Plan for stent exchange approx December 2022 Secondary hyperparathyroidism of renal origin Stage 5 chronic kidney disease 04/21/2021 HTN (hypertension) 04/17/2021 Assessment & Plan (11/30/2024 4:55 PM EDT): Elevated on initial and repeat in office Amlodipine 10mg daily (max dose) Hydralazine 100mg BID (max renal dose 200mg/day) Increase Bumex to 4 mg on nondialysis days -Lifestyle interventions and ED precautions reviewed Assessment & Plan (07/29/2024 10:49 PM EST): [...] Encounters Date Type Department Care Team Description 12/04/2024 Telephone [facility] [address] [place] [address] Andie Whitmore FNP TC: PET SCAN RESULTS 11/30/2024 2:00 PM EDT Office Visit [facility] [address] [place] [address] Andie Whitmore FNP Pneumonia due to infectious organism, unspecified laterality, unspecified part of lung (Primary Dx); Heart failure with mildly reduced ejection fraction (HFmrEF) ([facility]); Primary hypertension 11/30/2024 Travel 11/27/2024 Telephone [facility] [address] [place] [address] Andie Whitmore FNP Priti recall 11/27/2024 Travel 11/27/2024 Patient Outreach [facility] [address] [place] [address] Andie Whitmore FNP Transition Of Care (Tcm) (HDF unscheduled LVM ) 11/20/2024 Orders Only GENERIC EXTERNAL DATA DEPARTMENT Provider, Generic External Data 11/09/2024 Refill [facility] [address] [place] [address] Andie Whitmore FNP Primary hypertension (Primary Dx) 11/09/2024 Patient Outreach [facility] [address] [place] [address] Andie Whitmore FNP Transition Of Care (Tcm) (HDF scheduled.) 11/09/2024 Telephone [facility] [address] [place] [address] Andie Whitmore FNP Hospital Follow-up 11/03/2024 Orders Only GENERIC EXTERNAL DATA DEPARTMENT Provider, Generic External Data 10/12/2024 Population Health Risk Score [facility] Department [address] [place] [phone] Provider, Population Health Generic 10/11/2024 Orders Only GENERIC EXTERNAL DATA DEPARTMENT Provider, Generic External Data 09/27/2024 Patient Outreach [facility] [address] [place] [address] Andie Whitmore FNP Transition Of Care (Tcm) (HDF- LVM #2) from Last 3 Months Immunizations Immunization Administration Dates Next Due Influenza injectable quadriv [...] Sign Reading Time Taken Comments Blood Pressure 184/76 11/30/2024 4:27 PM EDT Pulse 68 11/30/2024 3:39 PM EDT Temperature 36.1 ??C (96.9 ??F) 11/30/2024 3:39 PM ED T Respiratory Rate 25 11/30/2024 3:39 PM EDT Oxygen Saturation 98% 11/30/2024 4:27 PM EDT Inhaled Oxygen Concentration - - Weight 61 kg (134 lb 6 oz) 11/30/2024 3:39 PM ED T Height 160 cm (5' 3 ) 11/30/2024 3:39 PM EDT Body Mass Index 23.8 11/30/2024 3:39 PM EDT Plan of Treatment Upcoming Encounters Date Type Department Care Team (Late st Contact Info) Description 02/18/2025 11:15 AM EDT Office Visit [facility] [address] [place] [address] Andie Whitmore, CORINNE [address] [place] [address] Health Maintenance Due Date Last Done Comments CT Colonography 1960 Colonoscopy 1961 FIT DNA/Cologuard 1960 HIV Screening 1960 Sigmoidoscopy 1960 Disability Screening 1961 Alcohol/Substance Use Screening 1973 Hepatitis C Screening 1979 Pneumococcal Vaccine: 50+ Years (1 of 2 - PCV) 02/29/1980 Zoster Vaccines (1 of 2) 2011 RSV Patients and Patients Aged 60 years or older (1 - Risk 60-74 years 1-dose series) 2021 Colorectal Cancer Screening 01/22/2023 FIT 01/22/2023 01/22/2022 FOBT 01/22/2023 01/22/2022 Depression Screening 12/23/2023 12/22/2022, 12/23/19 23 SDOH Screening 12/23/2023 12/22/2022 COVID-19 Vaccine ( season) 2024 12/20/2021, 06/17/2021, 06/07/2021, Additional history exists Influenza Vaccine (#1) 2024 , 05/11/2020, 07/24/2019 DTaP/Tdap/Td Vaccines (2 - Td or Tdap) 12/17/2024 12/17/2014 Tobacco Screening 11/30/2025 11/30/2024 Lipid Panel 07/26/2029 07/26/2024, 12/13/2023 HIB Vaccines [...] Priority Date/Time Associated Diagnosis Comments XR CHEST 2 VIEWS Routine 11/25/2024 9:12 AM EDT VENOUS BLOOD GAS Routine 11/20/2024 11:2 1 PM EDT CTA CHEST PE PROTOCAL Routine 11/20/2024 10:31 PM EDT B TYPE NATRIURETIC PEPTIDE (BNP) [...] PSA, TOTAL Routine 10/11/2024 10:35 AM EDT LIPID PANEL, STANDARD Routine 07/26/2024 11:25 AM EST Hyperlipidemia, unspecified hyperlipidemia type from Last 3 Months or Most Recently Relevant to Health Maintenance Results * XR Chest 2 Views (11/25/2024 9:12 AM EDT) Anatomical Region Laterality Modality Chest Radiographic Debra ging 11/25/2024 9:12 AM EDT Narrative 11/25/2024 9:14 AM EDT ? [facility] ?[address] ?[place] [address] ?XRay Report ? Signed ? Patient: Maribeth,Darwin ?MR#: [id number] ? : 1960 ?Acct:[id number] ? Age/Sex: 64 / M ?ADM Date: 11/20/24 ? Loc: HO.IMC ?457-1 ? Attending Dr: Douglas Lagunas MD ? Ordering Physician: Douglas Lagunas MD ?? Date of Service: 11/23/24 ?? Procedure(s): XR chest 2V ?? Accession Number(s): [id number] ? cc: Douglas Lagunas MD; Andie Whitmore ? CLINICAL HISTORY: Follow up on pleural effusi ? Exam: PA and lateral views of the chest. ? Comparison: Chest CT November 21, 2023. ? Findings: ? Cardiac silhouette is onrf-yd-tlitwztzpp enlarged. ?? Pleural effusion seen on the patient's recent chest CT are almost ?? completely resolved. ?? Edema pattern is also nearly completely resolved. There remains mild ?? perihilar bronchial wall thickening and interstitial prominence. ?? No pneumothorax. ? Impression: ? Improved congestive heart failure. ? This document has been electronically signed by: Celio Barlow MD on ?? 11/25/2024 09:12:02 ? Dictated By: ?Celio Barlow MD ? Signed By: ?<Electronically signed by Celio Barlow MD in OV> ? 11/25/24 0913 ? DD/ 0912 ? TD/TT: 11/25/24 0912 ? Licensed Physical Therapist Assistant: ? Procedure Note Tierra, Rosemarie - 11/25/[address] [address] XRay Report Signed Patient: Emilia Stahl#: [id number] : 1Acct:[id number] Age/Sex: 64 / MADM Date: 11/20/24 Loc: .[facility] 457-[address]: Douglas Lagunas MD Ordering Physician: Douglas Lagunas MD Date of Service: 11/23/24 Procedure(s): XR chest 2V Accession Number(s): [id number] cc: Douglas Lagunas MD; Andie Whitmore CLINICAL HISTORY: Follow up on pleural effusi Exam: PA and lateral views of the chest. Comparison: Chest CT November 21, 2023. Findings: Cardiac silhouette is jfav-qj-igcesluzhs enlarged. Pleural effusion seen on the patient's recent chest CT are almost completely resolved. Edema pattern is also nearly completely resolved. There remains mild perihilar bronchial wall thickening and interstitial prominence. No pneumothorax. Impression: Improved congestive heart failure. This document has been electronically signed by: Celio Barlow MD on 11/25/2024 09:12:02 Dictated By: Celio Barlow MD Signed By: <Electronically signed by Celio Barlow MD in OV> 11/25/24912 DD/ 1 TD/TT: 11/25/24911 Licensed Physical Therapist Assistant: [facility] External Provider IMG XR PROCEDURES Edited Result - Final * VENOUS BLOOD GAS (11/20/2024 11:21 PM EDT) Only the most recent of2 resultswithin the time period is included. VBG pH 7.41 7.32 - 7.43 [facility] Comment:METER #: [id number] additional_comment: [facility] PCO2 37 mmHg [facility] Comment:METER #: [id number] additional_comment: [facility] PO2 79 mmHg [facility] Comment:METER #: [id number] additional_comment: [facility] Base Excess -0.4 mmol/L [facility] Comment:METER #: [id number] additional_comment: [facility] HCO3 23 22 - 26 mmol/L [facility] Comment:METER #: [id number] additional_comment: [facility] O2 Sat, Rober 96.0 % [facility] Comment:METER #: [id number] additional_comment: [facility] 11/20/2024 11:2 1 PM EDT 11/20/2024 11:25 PM EDT us Generic External Data Provider LAB BLOOD ORDERAB LES Final Result [facility] [address] [facility] [place] [phone] * CTA Chest PE Protocal (11/20/2024 10:31 PM EDT) Only the most recent of2 resultswithin the time period is included. Anatomical Region Laterality Modality Body, Chest Computed Tomogra phy 11/20/2024 10:3 1 PM EDT Narrative 11/20/2024 10:32 PM EDT ? [facility] ?[address] ?[place] [address] ? CT Scan Report ? Signed ? Patient: Maribeth,Darwin ?MR#: [id number] ? : 1960 ?Acct:[id number] ? Age/Sex: 64 / M ?ADM Date: 11/20/24 ? Loc: HO.ED ? Attending Dr: ? Ordering Physician: Senia Langston MD ?? Date of Service: 11/20/24 ?? Procedure(s): CT angio chest PE protocol ?? Accession Number(s): [id number] ? cc: Senia Langston MD; Andie Whitmore GATE OPERATOR ? Report Number: ?? [id number]: Total DLP = ??367.00 mGy-cm ? CLINICAL HISTORY: ? PE. pt on dialyisis mwf ? CT angiography chest with contrast. 3D Postprocessing. ? Comparison: CT/SR - CT ANGIO CHEST PE PROTOCOL - 11/03/24 12:07 EDT ? Findings: ?? Moderate cardiomegaly. RV/LV ratio is normal. ?? The thoracic aorta is normal caliber. ?? No acute pulmonary embolus. ?? The visualized thyroid and mediastinum are unremarkable. ? Diffuse interstitial thickening and patchy ground-glass opacities in both ?? lungs. Moderate right and small left pleural effusions. Patchy ?? consolidation of the left upper lobe posteriorly as well as left lower ?? lobe superior segment. ? The upper abdomen is unremarkable. ?? No acute fractures. ? IMPRESSION: ?? 1. No pulmonary embolus. No acute aortic syndrome. ?? 2. Moderate cardiomegaly, diffuse interstitial thickening and patchy ?? ground-glass opacities in both lungs and moderate right and small left ?? pleural effusions concerning for pulmonary edema/fluid overload, Grossly ?? unchanged in the interval.. ?? 3. Patchy consolidation of the left upper lobe posteriorly as well as left ?? lower lobe superior segment may represent superimposed airspace disease ?? such as pneumonia or aspiration, Grossly unchanged in the interval. ? This document has been electronically signed by: Sin Schmidt MD on ?? 11/20/2024 22:31:17 ? Dictated By: ?Sin Schmidt MD ? Signed By: ?<Electronically signed by Sin Schmidt MD in OV> ?11/20/242 ? DD/ 30 ? TD/TT: 11/20/242230 ? Licensed Physical Therapist Assistant: ? Procedure Note Tierra, Rosemarie - 11/20/[address] [place] [address] [address] Scan Report Signed Patient: Emilia Stahl#: [id number] : 1960cct:[id number] Age/Sex: 64 / MADM Date: 11/20/24 Loc: .ED Attending Dr: Ordering Physician: Senia Langston MD Date of Service: 11/20/24 Procedure(s): CT angio chest PE protocol Accession Number(s): [id number] cc: Senia Langston MD; Andie Whitmore GATE OPERATOR Report Number: [id number]: Total DLP = 367.00 mGy-cm CLINICAL HISTORY: ? PE. pt on dialyisis f CT angiography chest with contrast. 3D Postprocessing. Comparison: CT/SR - CT ANGIO CHEST PE PROTOCOL - 11/03/24 12:07 EDT Findings: Moderate cardiomegaly. RV/LV ratio is normal. The thoracic aorta is normal caliber. No acute pulmonary embolus. The visualized thyroid and mediastinum are unremarkable. Diffuse interstitial thickening and patchy ground-glass opacities in both lungs. Moderate right and small left pleural effusions. Patchy consolidation of the left upper lobe posteriorly as well as left lower lobe superior segment. The upper abdomen is unremarkable. No acute fractures. IMPRESSION: 1. No pulmonary embolus. No acute aortic syndrome. 2. Moderate cardiomegaly, diffuse interstitial thickening and patchy ground-glass opacities in both lungs and moderate right and small left pleural effusions concerning for pulmonary edema/fluid overload, Grossly unchanged in the interval.. 3. Patchy consolidation of the left upper lobe posteriorly as well as left lower lobe superior segment may represent superimposed airspace disease such as pneumonia or aspiration, Grossly unchanged in the interval. This document has been electronically signed by: Sin Schmidt MD on 11/20/2024 22:31:17 Dictated By: Sin Schmidt MD Signed By: <Electronically signed by Sin Schmidt MD in OV> 11/20/242231 DD/ 30 TD/TT: 11/20/242230 Licensed Physical Therapist Assistant: [facility] External Provider IMG CT PROCEDURES Final Result * (ABNORMAL) High Sensitivity Troponin I (11/20/2024 7:10 PM EDT) Only the most recent of3 resultswithin the time period is included. [facility] TROPONIN I HIGH SENSITIVITY 57.8(H) <3.5 - 35.0 ng/L [facility] Comment:The [place] high sens itivity Troponin-I results should beused in conjunction with other diagnostic information suchas ECG, clinical observations and information, and patientsymptoms to aid in the diagnosis of NV. 11/20/2024 7:10 PM EDT 11/20/2024 7:15 PM EDT Generic External Data Provider LAB BLOOD ORDERAB LES Final Result [facility] [address] [place] [phone] * SARS-CoV-2 RNA, Influenza A/B, and RSV RNA, Ql NAAT (11/20/2024 7:10 PM EDT) Only the most recent of2 resultswithin the time period is included. [facility] Influenza A PCR NEGATIVE Negative [facility] Influenza B PCR NEGATIVE Negative [facility] Resp Syncy Virus RNA Qual PCR NEGATIVE Negative [facility] SARS COV2 PCR NEGATIVE Negative [...] use by authorized laboratories.Testing performed on the [employer] utilizingreal-time RT-PCR.All SARS CoV2 and positive influenza A/B results arereported to [facility]. 11/20/2024 7:10 PM EDT 11/20/2024 7:15 PM EDT Generic External Data Provider LAB MICROBIOLOGY - GENERAL ORDERABLES Final Result [facility] [address] [place] [phone] * (ABNORMAL) CBC auto differential (11/20/2024 7:10 PM EDT) Only the most recent of2 resultswithin the time period is included. [facility] White Blood Count 7.2 4.8 - 10.8 X10*3/uL [facility] Red Blood Count 3.39(L) 4.60 - 5.80 X10*6/uL [facility] Hemoglobin 10.0(L) 14.0 - 18.0 g/dl [facility] Hematocrit 30.0(L) 42.0 - 52.0 % [facility] Mean Corpuscular Volume 88.5 80.0 - 98.0 fL [facility] Mean Corpuscular Hemoglobin 29.5 27.0 - 33.0 pg [facility] Mean Corpuscular HGB Conc 33.3 31.0 - 36.0 g/dl [facility] Red Cell Distribution Width 20.2(H) 11.0 - 16.0 % [facility] Platelet Count 222 160 - 400 X10*3/uL [facility] Mean Platelet Volume 10.8 9.4 - 12.4 fL [facility] Neutrophils Percent Auto 77.9(H) 45 - 73 % [facility] Imm Gran Pct Auto 0.4 0.0 - 0.4 % [facility] Lymphocytes Percent Auto 12.8(L) 20 - 40 % [facility] Monocytes Percent Auto 6.1 2 - 11 % [facility] Eosinophils Percent Auto 1.7 0 - 4 % [facility] Basophils Percent Auto 1.1 0 - 2 % [facility] NRBC Pct Auto 0.0 0.0 - 0.2 /100WBC [facility] Neutrophils Absolute Auto 5.6 2.0 - 8.3 x10*3/uL [facility] Imm Gran Abs Auto 0.03 0.00 - 0.03 X10*3/uL [facility] Lymphocytes Absolute Auto 0.9(L) 1.2 - 4.9 X10*3/uL [facility] Monocytes Absolute Auto 0.4 0.1 - 1.2 X10*3/uL [facility] Eosinophils Absolute Auto 0.1 0.0 - 0.4 X10*3/uL [facility] Basophils Absolute Auto 0.1 0.0 - 0.2 X10*3/uL [facility] NRBC Abs Auto 0.000 0.0 - 0.012 X10*3/uL [facility] 11/20/2024 7:10 PM EDT 11/20/2024 7:15 PM EDT us Generic External Data Provider LAB BLOOD ORDERAB LES Final Result [facility] [address] [place], [place] [phone] * (ABNORMAL) Partial Thromboplastin Time, Activated (APTT) (11/20/2024 7:10 PM EDT) Partial Thromboplastin Time 53.3(H) 26.0 - 36.8 SEC [facility] Comment:For information rega rding the monitoring of direct thrombininhibitors, please refer to Pharmacy. 11/20/2024 7:10 PM EDT 11/20/2024 7:15 PM EDT Generic External Data Provider LAB BLOOD ORDERAB LES Final Result Performing Organization Address [facility] Co de Phone Number [facility] [address] [place] [address] [phone] * Prothrombin Time-INR (11/20/2024 7:10 PM EDT) [facility] Prothrombin Time 11.2 10.9 - 12.4 SEC [facility] INTERNATIONAL NORM RATIO 1.0 0.9 - 1.1 [facility] Comment:INTERNATIONAL NORMAL IZED RATIO (INR) [...] 7:10 PM EDT 11/20/2024 7:15 PM EDT [employer] External Data Provider LAB BLOOD ORDERAB LES Final Result Performing Organization Address [facility] Co de Phone Number [facility] [address] [place] [address] [phone] * (ABNORMAL) B Type Natriuretic Peptide (BNP) (11/20/2024 7:10 PM EDT) Only the most recent of2 resultswithin the time period is included. B Type Natriuretic Peptide 7,929(H) <100 pg/mL [facility] 11/20/2024 7:10 PM EDT 11/20/2024 7:15 PM EDT us Generic External Data Provider LAB BLOOD ORDERAB LES Final Result [facility] [address] [place] [phone] * (ABNORMAL) Comprehensive Metabolic Panel (11/20/2024 7:10 PM EDT) Sodium 130(L) 135 - 145 mmol/L [facility] Potassium 4.1 3.3 - 5.1 mmol/L [facility] Chloride 91(L) 96 - 108 mmol/L [facility] Carbon Dioxide 19(L) 22 - 29 mmol/L [facility] Anion Gap 24(H) 12 - 20 [facility] Urea Nitrogen (BUN) 46(H) 9 - 16 mg/dL [facility] Creatinine, Serum 5.06(HH) 0.5 - 1.4 mg/dL [facility] Comment:Critical value for t est(s): LACTA Results called to marjan back by: NIURKA Person calling: JOHN Date:11/20/24 Time: 1945 Creatinine Clr Calc Pharmacy 12.5 [facility] Comment:eGFR (calculated fro m the MDRD study equation) and eCrCl(calculated from the Cockcroft-Gault equation) are based ondifferent parameters and may not yield comparable results.If eCrCl result is absurd, please check patient'sheight/weight. Estimated Glomerular Filt Rate 12 [facility] Comment:Chronic Kidney Disea se: Estimated GFR < 60 mL/min/1.75w4Kvrkuy Kidney Disease: Estimated GFR < 15 mL/min/1.73m2 Glucose 124(H) 60 - 115 mg/dL [facility] Calcium 9.5 8.4 - 10.2 mg/dL [facility] Bilirubin, Total 0.5 0.0 - 1.0 mg/dL [facility] Aspartate Amino Transferase 17 5 - 37 U/L [facility] Alanine Aminotransferase 6 0 - 40 U/L [facility] Total Protein 6.4(L) 6.5 - 8.0 g/dL [facility] Albumin Level 3.9 3.5 - 5.0 g/dL [facility] Alkaline Phosphatase 111 39 - 117 U/L [facility] 11/20/2024 7:10 PM EDT 11/20/2024 7:15 PM EDT us Generic External Data Provider LAB BLOOD ORDERAB LES Final Result [facility] [address] [place] [phone] * XR Chest 1 View (11/20/2024 7:00 PM EDT) Only the most recent of2 resultswithin the time period is included. Anatomical Region Laterality Modality Chest Radiographic Debra ging 11/20/2024 7:00 PM EDT Narrative 11/20/2024 7:02 PM EDT ? [facility] ?[address] ?[place] [address] ?XRay Report ? Signed ? Patient: Darwin Stahl ?MR#: [id number] ? : 1960 ?Acct:[id number] ? Age/Sex: 64 / M ?ADM Date: 11/20/24 ? Loc: HO.ED ? Attending Dr: ? Ordering Physician: Zuhair Batista ?? Date of Service: 11/20/24 ?? Procedure(s): XR chest 1V ?? Accession Number(s): [id number] ? cc: Zuhair Batista; Andie Whitmore GATE OPERATOR ? CLINICAL HISTORY: SOB. Pneumonia? 1 view [...] ? DD/ 99 ? TD/TT: 11/20/241899 ? Licensed Physical Therapist Assistant: ? Procedure Note [place], Image - 11/20/[address] [address] XRay Report Signed Patient: Emilia Stahl#: [id number] : 1960cct:[id number] Age/Sex: 64 / MADM Date: 11/20/24 Loc: HO.ED Attending Dr: Ordering Physician: Zuhair Batista Date of Service: 11/20/24 Procedure(s): XR chest 1V Accession Number(s): [id number] cc: Zuhair Batista; Andie Whitmore CLINICAL HISTORY: [...] in OV> 11/20/241901 DD/ 99 TD/TT: 11/20/241899 Licensed Physical Therapist Assistant: [facility] External Provider IMG XR PROCEDURES Final Result * Respiratory Viral Panel PCR (11/03/2024 11:57 AM EDT) Pathologist [facility] Adenovirus PCR Not Detected Not Detect. [facility] Bordetella pertussis PCR Not Detected Not Detect. [facility] Comment:Interpret results wi th caution. If B. pertussis isspecifically suspected, additional testing using analternate method is recommended. Bordetella parapertussis PCR Not Detected Not Detect. [facility] Chlamydia pneumoniae PCR Not Detected Not Detect. [facility] Coronavirus 229E PCR Not Detected Not Detect. [facility] Coronavirus HKU1 PCR Not Detected Not Detect. [facility] Coronavirus NL63 PCR Not Detected Not Detect. [facility] Coronavirus OC43 PCR Not Detected Not Detect. [facility] SARS-CoV-2 PCR Not Detected Not Detect. [facility] Comment:SARS-CoV-2 not detec montrell by real-time RT-PCR.Note: If clinical suspicion for Sars-CoV-2 is high, continueto maintain precautions and consider repeat testing.Test results should be interpreted in the context ofclinical findings and other laboratory data.Rare polymorphisms exist that could lead to false-negativeor false-positive results. If results do not match theclinical findings, additional testing should be considered.Results reported to [facility].This test has been authorized by the FDA under the EmergencyUse Authorization (EUA) for use by authorized laboratories. Influenza A PCR Not Detected Not Detect. [facility] Influenza A Subtype H1 Not Detected Not Detect. [facility] Influenza A H1-2009 PCR Not Detected Not Detect. [facility] Influenza A Subtype H3 Not Detected Not Detect. [facility] Influenza B PCR Not Detected Not Detect. [facility] Human metapneumovirus PCR Not Detected Not Detect. [facility] Rhino/Enterovirus PCR Not Detected Not Detect. [facility] Mycoplasma pneumoniae PCR Not Detected Not Detect. [facility] Parainfluenza 1 PCR Not Detected Not Detect. [facility] Parainfluenza 2 PCR Not Detected Not Detect. [facility] Parainfluenza 3 PCR Not Detected Not Detect. [facility] Parainfluenza 4 PCR Not Detected Not Detect. [facility] RSV PCR Not Detected Not Detect. [facility] Resp Panel NA Note See Note H [facility] Comment:All results must be correlated [...] assay is performed by Multiplexed PCR, utilizing [employer]. 11/03/2024 11:5 7 AM EDT 11/03/2024 12:01 PM EDT us Generic External Data Provider LAB BLOOD ORDERAB LES Final Result Performing Organization Address [facility]/ZIP Co de Phone Number [facility] [address] [place] [phone] * Magnesium (11/03/2024 10:02 AM EDT) Magnesium 2.1 1.6 - 2.6 mg/dL [facility] 11/03/2024 10:0 2 AM EDT 11/03/2024 10:09 AM EDT us Generic External Data Provider LAB BLOOD ORDERAB LES Final Result Performing Organization Address [facility]/ZIP Co de Phone Number [facility] [address] [place] [phone] * Lipase (11/03/2024 10:02 AM EDT) Lipase 22 8 - 78 U/L [facility] 11/03/2024 10:0 2 AM EDT 11/03/2024 10:09 AM EDT Generic External Data Provider LAB BLOOD ORDERAB LES Final Result Performing Organization Address [facility]/ZIP Co de Phone Number [facility] [address] [place] [phone] * (ABNORMAL) Hepatic Function Panel (11/03/2024 10:02 AM EDT) Bilirubin, Total 1.4(H) 0.0 - 1.0 mg/dL [facility] Bilirubin, Direct 0.5 0.0 - 0.5 mg/dL [facility] Aspartate Amino Transferase 27 5 - 37 U/L [facility] Alanine Aminotransferase 12 0 - 40 U/L [facility] Total Protein 7.1 6.5 - 8.0 g/dL [facility] Albumin Level 4.5 3.5 - 5.0 g/dL [facility] Alkaline Phosphatase 113 39 - 117 U/L [facility] 11/03/2024 10:0 2 AM EDT 11/03/2024 10:09 AM EDT Generic External Data Provider LAB BLOOD ORDERAB LES Final Result Performing Organization Address [facility]/ZIP Co de Phone Number [facility] [address] [place] [phone] * (ABNORMAL) Basic Metabolic Panel (11/03/2024 10:02 AM EDT) Sodium 136 135 - 145 mmol/L [facility] Potassium 3.8 3.3 - 5.1 mmol/L [facility] Chloride 94(L) 96 - 108 mmol/L [facility] Carbon Dioxide 29 22 - 29 mmol/L [facility] Anion Gap 17 12 - 20 [facility] Urea Nitrogen (BUN) 40(H) 9 - 16 mg/dL [facility] Creatinine, Serum 4.35(HH) 0.5 - 1.4 mg/dL [facility] Comment:Critical value for t est(s): DELMI Results called to and readback by:KNOXMEL Person calling:LHEUREM Date:11/03/24Time:1030 Creatinine Clr Calc Pharmacy 13.9 [facility] Comment:eGFR (calculated fro m the MDRD study equation) and eCrCl(calculated from the Cockcroft-Gault equation) are based ondifferent parameters and may not yield comparable results.If eCrCl result is absurd, please check patient'sheight/weight. Estimated Glomerular Filt Rate 14 [facility] Comment:Chronic Kidney Disea se: Estimated GFR < 60 mL/min/1.05o5Dfozrt Kidney Disease: Estimated GFR < 15 mL/min/1.73m2 Glucose 88 60 - 115 mg/dL [facility] Calcium 10.3(H) 8.4 - 10.2 mg/dL [facility] 11/03/2024 10:0 2 AM EDT 11/03/2024 10:09 AM EDT Generic External Data Provider LAB BLOOD ORDERAB LES Final Result Performing Organization Address City/[facility]/ZIP Co de Phone Number [facility] [address] [place] [phone] * Lactic Acid (11/03/2024 10:01 AM EDT) Lactic Acid 0.8 0.5 - 2.0 mmol/L [facility] 11/03/2024 10:0 1 AM EDT 11/03/2024 10:09 AM EDT us Generic External Data Provider LAB BLOOD ORDERAB LES Final Result Performing Organization Address [facility]/ZIP Co de Phone Number [facility] [address] [place] [phone] * (ABNORMAL) Testosterone, Total, males (Adult), [place] (10/11/2024 10:35 AM EDT) Testosterone, Total 10(A) 250 - 1100 ng/dL [facility] Comment:Men with clinically significant hypogonadalsymptoms and testosterone values repeatedly inthe range of the 200-300 ng/dL or less, maybenefit from testosterone treatment afteradequate risk and benefits counseling.For additional information, please refer tohttp://education.DirectLaw/faq/RdqkdJczlmjadgkjdAQGBOETAD659(This link is being provided for informational/educational purposes only.)This test was developed and its analytical performancecharacteristics have been determined by [employer] [place], [place]. It hasnot been cleared or approved by the U.S. Food and DrugAdministration. This assay has been validated pursuantto the CLIA regulations and is used for clinicalpurposes.THIS TEST WAS PERFORMED AT:[employer] [place] [address]BPRAZXHHELGA HAYES MD,PHD 10/11/2024 10:3 5 AM EDT 10/11/2024 1:28 PM EDT Generic External Data Provider LAB BLOOD ORDERAB LES Final Result Performing Organization Address [facility]/ZIP Co de Phone Number [facility] [address] [place] [phone] * PSA,Total (10/11/2024 10:35 AM EDT) Prostate Specific Antigen 0.14 <0.05 - 4.0 ng/mL [facility] Comment:PSA methodology: Wild Emer[employer] i ChemiluminescentMicroparticle Immunoassay (CMIA) 10/11/2024 10:3 5 AM EDT 10/11/2024 1:28 PM EDT Generic External Data Provider LAB BLOOD ORDERAB LES Final Result Performing Organization Address [facility]/ZIP Co de Phone Number [facility] [address] [place] [phone] * Lipid Panel, Standard (07/26/2024 11:25 AM EST) Triglycerides 54 <150 mg/dL [facility] Comment:Desirable Triglyceri de: less than 150 mg/dLBorderline High Triglyceride 150-199 mg/dLHigh Triglyceride: 200-499 mg/dLVery High Triglyceride: greater than or equal to 5OO mg/dL Cholesterol 142 <200 mg/dL [facility] Comment:Desirable Cholestero l: less than 200 mg/dLBorderline High Cholesterol: 200-239 mg/dLHigh Cholesterol: greater than 239 mg/dL LDL Cholesterol Calculated 83 <100 mg/dL [facility] Comment:Desirable LDL: less than 100 mg/dLNear Optimal/Above Optimal LDL: 110- 129 mg/dLBorderline High LDL: 130-159 mg/dLHigh LDL: 160-189 mg/dLVery High LDL: greater than or equal to 190 mg/dL HDL Cholesterol 49 >40 mg/dL [facility] Comment:Desirable HDL: great er than 40 mg/dL Note: This HDL assay may give artificially low results in patients with liver disease. Blood Venous blood specimen / Unknown 07/26/2024 11:25 AM EST 07/26/2024 1:05 PM EST us Andie Whitmore GATE OPERATOR LAB BLOOD ORDERABLES Final Res ult [facility] [address] [place] [phone] from Last 3 Months or Most Recently Relevant to Health Maintenance Insurance [facility] Care Teams Software Licensing Specialist Relationship Specialty Start Date End Date Andie Whitmore FNP [address] [place] [address] PCP - General Family Medicine 11/04/21 Trevor Restrepo MD [address] [place] [address] Urology 07/29/24 Juvenal Cr MD 100 [facility] [address] [place] [address] Nephrology 07/29/24 Kamini Chavarria MD [address] [place] [address] [address] [place] [address] Neurology 07/29/24 Winston Bhagat DPM [address] [place] [address] Podiatry 07/29/24
== END 2024-12-18 11:45 | disposition home or self-care (01) ==
LOC: HO.HVS 10:58
PROVIDERS: PCP Registered Nurse; Visit Provider Surgery Vascular Surgery
DX: N18.6 End stage renal disease (principal)
CPT/HCPCS: 99214

== ENCOUNTER → 2024-12-18 10:57 | Outpatient (BNVA) | payer MEDICARE, MEDICAID, SELFPAY | PROVIDERS: PCP Registered Nurse; Visit Provider Surgery Vascular Surgery | DX: N18.6 End stage renal disease (principal); Z99.2 Dependence on renal dialysis | CPT/HCPCS: 99212 ==

== ENCOUNTER → 2024-12-19 07:30 | Outpatient (BNV) | payer MEDICARE, MEDICAID, SELFPAY | PROVIDERS: PCP Registered Nurse; Visit Provider Surgery Vascular Surgery | DX: T82.838A Hemorrhage due to vascular prosthetic devices, implants and grafts, initial encounter (principal); N18.6 End stage renal disease | CPT/HCPCS: 36905 ==

== ENCOUNTER 2024-12-19 14:59 | Day surgery (SDC) | payer MEDICARE, MEDICAID, SELFPAY ==
--- OUTSIDE RECORDS SUMMARY | 2024-12-18 13:16 | XMS_ITS | Encounter Summary ---
Author Organization [employer] Address [address] [facility] 7t [place] [address] Care Team Providers Care Senior Accounts Payable Clerk Name Role Phone Andie Whitmore Primary Care Provider [phone] Trevor Restrepo MD Unavailable [phone] Juvenal Cr MD Unavailable [phone] Kamini Chavarria MD Unavailable [phone] Winston Bhagat DPM Unavailable [phone] Reason for Referral * Imaging (Urgent) - Closed Specialty Diagnoses / Procedures Referred By Contac t Referred To Contact Cardiology Diagnoses ESRD (end stage renal disease) ([facility]) Primary hypertension Shortness of breath Procedures Transthoracic Echo (TTE) Complete Andie Whitmore FNP [address] [place] [address] Phone: tel: fax: [address] Phone: tel: fax: Referral ID Status Reason Start Date Expiration Date V isits Requested Visits Authorized [id number] Closed Perform Procedure 06/29/2023 06/28/2024 1 1 Reason for Visit * Reason Onset Date Comments Call Back Request 06/21/2023 Encounter Details Date Type Department Care Team (Late st Contact Info) Description 06/21/2023 Telephone [facility] [address] [place] [address] Andie Whitmore FNP [address] [place] [address] Call Back Request Social History Tobacco Use [...] order of the heart. Contact pt at [phone] * Telephone Encounter - Iram Pierre RN [...] just once, had an EKG, and the lace paper machine operator said he was just fine. Patient has [...] having dialysis tomorrow. Please contact pt at [phone] documented in this encounter Plan of Treatment Upcoming Encounters Date Type Department Care Team ([facility] st Contact Info) Description 02/18/2025 11:15 AM EDT Office Visit [facility] [address] [place] [address] Andie Whitmore FNP [address] [place] [address] Scheduled Orders Name Type Priority Associated Diagnoses Order Schedule Transthoracic Echo (TTE) Complete Echocardiography Urgent ESRD (end stage renal disease) ([facility]) Primary hypertension Shortness of breath Expected: 06/29/2023 (Approximate), Expires: 06/29/2025 documented as of this encounter Visit Diagnoses Diagnosis ESRD (end stage renal disease) ([facility])- Primary End stage renal disease Primary hypertension Unspecified essential hypertension Shortness of breath documented in this encounter Additional Health Concerns Assessment Noted Time PHQ-9 Depression Total Score: 1 12/23/19 23 3:02 PM EDT documented as of this encounter Care Teams Senior Accounts Payable Clerk Relationship Specialty Start Date End Date Andie Whitmore FNP [address] [place] [address] PCP - General Family Medicine 11/04/21 Trevor Restrepo MD [address] [place] [address] Urology 07/29/24 Juvenal Cr MD 100 [facility] [address] [place] [address] Nephrology 07/29/24 Kamini Chavarria MD [address] [facility] 140 [place] [address] Neurology 07/29/24 Winston Bhagat DPM [address] [place] [address] Podiatry 07/29/24 documented as of this encounter
--- OUTSIDE RECORDS SUMMARY | 2024-12-18 13:17 | XMS_ITS | Encounter Summary ---
Author Organization [facility] Address [address] [facility] [address] [phone] Phone Care Team Providers Care Coagulation Operator Name Role Phone Unavailable Primary Care Provider Unavailabl e Reason for Visit * Reason Onset Date Comments Med Refill 07/17/2021 Encounter Details Date Type Department Care Team (Late st Contact Info) Description 07/17/2021 Refill [facility] [address] [place] [address] [place] [phone] Radha Palmer 100 [facility] [address] [place] [address] Social History Tobacco Use Types [...]
--- OUTSIDE RECORDS SUMMARY | 2024-12-18 13:17 | XMS_ITS | Clinical Summary ---
Author Organization 175 [facility] Address [address] [place] [address] Phone Care Team Providers Care Desktop Support Technician Name Role Phone Andie Whitmore RN [...] disease 03/05/2024 ESRD (end stage renal disease) ([facility] V24, [facility] V28) 03/02/2024 Heart failure with mildly re duced ejection fraction ([facility] V24, [facility] V28) 03/02/2024 HTN (hypertension) 03/02/2024 Obstructive uropathy 03/02/2024 Onychauxis 03/02/2024 Onychomycosis 03/02/2024 Prostate cancer metastatic t o bone ([facility] V24, [facility] V28) 03/02/2024 Secondary hyperparathyroidism of renal origin ([facility] V24) 03/02/2024 Encounters Date Type Department Care Team Description 12/06/2024 1:30 PM EDT Office Visit Orthopedic [facility] [address] [facility] [address] [place] [address] Winston Bhagat DPM Acquired hallux varus, left (Primary Dx); Dermatophytosis of nail; Difficulty walking; Pain in toe of left foot; Pain in toe of right foot; Bilateral femoral artery stenosis ([facility] V24) 10/22/2024 2:15 PM EDT - 10/22/2024 3:50 PM EDT Emergency [facility] Emergency [address] [place] [phone] Diallo Ybarra MD Arteriovenous fistula of left upper extremity ([facility] V24) (Primary Dx); Hemorrhage of arteriovenous fistula, initial encounter ([facility] V24) Discharge Disposition: Home or Self Care [...] PM EDT Office Visit [facility] [place] [address] [phone] Winston Bhagat, DPM [address] [address] Health Maintenance Due Date Last Done Comments [...] around the site, then two 5-0 Prolene [id number]-[id number] stitches applied with bleeding controlled Diallo Ybarra MD IN CLINIC/BEDSIDE ORDERAB LES Final Result from Last 3 Months Insurance MEDICAID - [place] MEDICARE Care Teams Desktop Support Technician Relationship Specialty Start Date End Date Andie Whitmore RN [address] [address] PCP - General 12/14/23
--- OUTSIDE RECORDS SUMMARY | 2024-12-18 13:17 | XMS_ITS | Encounter Summary ---
Author Organization [employer] Address [address] [facility] 7t [place] [address] Care Team Providers Care Care Rep Name Role Phone Andie Whitmore Primary Care Provider [phone] Trevor Restrepo MD Unavailable [phone] Juvenal Cr MD Unavailable [phone] Kamini Chavarria MD Unavailable Winston Bhagat DPM Unavailable [phone] Reason for Visit * Reason Onset Date Comments Medication Question 02/29/2024 Encounter Details Date Type Department Care Team (Late st Contact Info) Description 02/29/2024 Telephone [facility] [address] [place] [address] Andie Whitmore FNP [address] [place], [place] [phone] Medication Question Social History Tobacco Use Types [...] was discussed in sick appt on 02/27 consumer loan underwriter does not see ant medication pending documented in this encounter Plan of Treatment Upcoming Encounters Date Type Department Care Team (Late st Contact Info) Description 02/18/2025 11:15 AM EDT Office Visit [facility] MED & [facility] [address] [place] [address] Andie Whitmore FNP [address] [place] [address] documented as of this encounter Visit Diagnoses Not on filedocumented in this encounter Additional Health Concerns Assessment Noted Time PHQ-9 Depression Total Score: 1 12/23/19 23 3:02 PM EDT documented as of this encounter Care Teams Care Rep Relationship Specialty Start Date End Date Andie Whitmore FNP [address] [place] [address] PCP - General Family Medicine 11/04/21 Trevor Restrepo MD [address] [place] [address] Urology 07/29/24 Juvenal Cr MD 100 [facility] 200 [place] [address] Nephrology 07/29/24 Kamini Chavarria MD [address] [place] [address] 140 [place] [address] Neurology 07/29/24 Winston Bhagat DPM [address] [place] [address] Podiatry 07/29/24 documented as of this encounter
--- OUTSIDE RECORDS SUMMARY | 2024-12-18 13:17 | XMS_ITS | Clinical Summary ---
Author Organization [facility] Address [address] [place] [address] [address] [place] [address] Phone Care Team Providers Care Aids Nurse Name Role Phone Unavailable Primary Care [...] 12/10/2024 Treatment [facility] [address] [phone] Juvenal Cr MD End stage renal disease; Dependence on renal dialysis 12/03/2024 Treatment [facility] [address] [phone] Juvenal Cr MD End stage renal disease; Dependence on renal dialysis 12/03/2024 Orders Only [facility] [address] [place] [address] Bianca Mccain, BRITT 11/26/2024 Treatment [facility] [address] [phone] Juvenal Cr MD End stage renal disease; Dependence on renal dialysis 11/12/2024 TCM in Dialysis Clinic [facility] [address] [address] Juvenal rC MD 11/12/2024 Treatment [facility] [address] [phone] Juvenal Cr MD End stage renal disease; Dependence on renal dialysis 11/02/2024 Treatment [facility] [address] [phone] Juvenal Cr MD End stage renal disease; Dependence on renal dialysis 10/31/2024 Treatment [facility] [address] [phone] Juvenal Cr MD End stage renal disease; Dependence on renal dialysis 10/22/2024 Treatment [facility] [address] [phone] Juvenal Cr MD End stage renal disease; Dependence on renal dialysis 10/15/2024 Treatment [facility] [address] [phone] Juvenal Cr MD End stage renal disease; Dependence on renal dialysis 10/08/2024 Treatment [facility] [address] [phone] Juvenal Cr MD End stage renal disease; Dependence on renal dialysis 10/01/2024 Treatment [facility] [address] [phone] Juvenal Cr MD End stage renal disease; Dependence on renal dialysis 09/28/2024 Treatment [facility] [address] [place] [phone] Juvenal Cr MD End stage renal disease; Dependence on renal dialysis 09/27/2024 Treatment [facility] [address] [phone] Juvenal Cr MD from Last 3 Months [...] PM EDT us Juvenal Cr MD LAB [id number] SOLICITED RESULTS Final Result [facility] [address] [place] [address] * Potassium (12/12/2024 3:00 AM EDT) Only the most recent of2 resultswithin the time period is included. Potassium 4.3 3.4 - 5.0 mEq/L [facility] 12/12/2024 3:00 AM EDT 12/13/2024 12:09 PM EDT Juvenal Cr MD LAB BLOOD ORDERABLES Final Re sult Performing Organization Address City/[facility]/ZIP Co de Phone Number [facility] [address] [place] [address] * (ABNORMAL) Kt/V Natural Log, URR (12/10/2024 3:00 AM EDT) Only the most recent of4 resultswithin the time period is included. [facility] Treatment Time 225 min [facility] Pre-Weight, lb [...] 2:28 PM EDT Juvenal Cr MD LAB [id number] SOLICITED RESULTS Final Result Performing Organization Address [facility]/ZIP Co de Phone Number [facility] [address] [place] [address] * (ABNORMAL) Calcium Phosphorus Product, Adjusted (12/05/2024 [...] 12:58 PM EDT Juvenal Cr MD LAB [id number] SOLICITED RESULTS Final Result Performing Organization Address [facility] de Phone Number [facility] [address] [place] [address] * Hepatitis B Surface Ag w/Reflex Confirmation (12/05/2024 3:00 AM EDT) Only the most recent of3 resultswithin the time period is included. Hep B Surface Antigen Negative Negative [facility] 12/05/2024 3:00 AM EDT 12/06/2024 12:58 PM EDT Juvenal Cr MD LAB BLOOD ORDERABLES Final Re sult Performing Organization Address [facility] de Phone Number [facility] [address] [place] [address] * BUN/CREATININE RATIO (12/05/2024 3:00 AM EDT) BUN/Creatinine Ratio 9.6 <=23.0 [facility] 12/05/2024 3:00 AM EDT 12/06/2024 12:58 PM EDT Juvenal Cr MD LAB [id number] SOLICITED RESULTS Final Result Performing Organization Address [facility] de Phone Number [facility] [address] [place] [address] * (ABNORMAL) TSAT (12/05/2024 3:00 AM EDT) Only the most recent of3 resultswithin the time period is included. Pathologist [facility] Iron 45(L) 65 - 175 ug/dL [facility] Transferrin 152(L) 215 - 365 mg/dL [facility] TIBC 213 211 - 406 ug/dL [facility] Iron Saturation (TSat) 21(L) 22 - 52 % [facility] 12/05/2024 3:00 AM EDT 12/06/2024 12:58 PM EDT us Juvenal Cr MD LAB BLOOD ORDERABLES Final Re sult [facility] [address] [place] [address] * (ABNORMAL) CBC and Differential (12/05/2024 3:00 AM EDT) Only the most recent of3 resultswithin the time period is included. [facility] DIFFERENTIAL MANUAL, 2 Not Indicated [facility] [...] ORDERABLES Final Re sult Performing Organization Address [facility] de Phone Number [facility] [address] [place] [address] * (ABNORMAL) ALT (12/05/2024 3:00 AM EDT) Only the most recent of3 resultswithin the time period is included. ALT (SGPT) 9(L) 10 - 49 U/L [facility] 12/05/2024 3:00 AM EDT 12/06/2024 12:58 PM EDT Juvenal Cr MD LAB BLOOD ORDERABLES Final Re sult Performing Organization Address [facility] de Phone Number [facility] [address] [place] [address] * AST (12/05/2024 3:00 AM EDT) Only the most recent of3 resultswithin the time period is included. AST (SGOT) 13 <34 U/L [facility] 12/05/2024 3:00 AM EDT 12/06/2024 12:58 PM EDT Juvenal Cr MD LAB BLOOD ORDERABLES Final Re sult Performing Organization Address [facility] de Phone Number [facility] [address] [place] [address] * (ABNORMAL) Protein, total (12/05/2024 3:00 AM EDT) Only the most recent of3 resultswithin the time period is included. Total Protein 6.1(L) 6.4 - 8.9 g/dL [facility] 12/05/2024 3:00 AM EDT 12/06/2024 12:58 PM EDT Juvenal Cr MD LAB BLOOD ORDERABLES Final Re sult Performing Organization Address [facility] Co de Phone Number [facility] [address] [place] [address] * Alkaline phosphatase (12/05/2024 3:00 AM EDT) Only the most recent of3 resultswithin the time period is included. Alkaline Phosphatase 99 46 - 116 U/L [facility] 12/05/2024 3:00 AM EDT 12/06/2024 12:58 PM EDT Juvenal Cr MD LAB BLOOD ORDERABLES Final Re sult Performing Organization Address [facility] de Phone Number [facility] [address] [place] [address] * (ABNORMAL) PTH, Intact (12/05/2024 3:00 AM [...] ORDERABLES Final Re sult Performing Organization Address [facility] de Phone Number [facility] [address] [place] [address] * Magnesium (12/05/2024 3:00 AM EDT) Only the most recent of3 resultswithin the time period is included. Magnesium 2.0 1.9 - 2.7 mg/dL [facility] 12/05/2024 3:00 AM EDT 12/06/2024 12:58 PM EDT Juvenal Cr MD LAB BLOOD ORDERABLES Final Re sult Performing Organization Address [facility] de Phone Number [facility] [address] [place] [address] * Lactate dehydrogenase (12/05/2024 3:00 AM EDT) Only the most recent of3 resultswithin the time period is included. LDH 243 120 - 246 U/L [facility] 12/05/2024 3:00 AM EDT 12/06/2024 12:58 PM EDT Juvenal Cr MD LAB BLOOD ORDERABLES Final Re sult Performing Organization Address [facility] de Phone Number [facility] [address] [place] [address] * Glucose, random (12/05/2024 3:00 AM EDT) Only the most recent of3 resultswithin the time period is included. Glucose 95 70 - 99 mg/dL [facility] Comment: ADA guidelines outline the following fasting glucose ranges: Normal: ? <100 Prediabetes: 100-125 Diabetes: ? >125 12/05/2024 3:00 AM EDT 12/06/2024 12:58 PM EDT Juvenal Cr MD LAB BLOOD ORDERABLES Final Re sult Performing Organization Address [facility] de Phone Number [facility] [address] [place] [address] * (ABNORMAL) Ferritin (12/05/2024 3:00 AM EDT) Only the most recent of3 resultswithin the time period is included. Ferritin 1,273(H) 22 - 322 ng/mL [facility] 12/05/2024 3:00 AM EDT 12/06/2024 12:58 PM EDT Juvenal Cr MD LAB BLOOD ORDERABLES Final Re sult Performing Organization Address [facility] de Phone Number [facility] [address] [place] [address] * (ABNORMAL) Creatinine, serum (12/05/2024 3:00 AM EDT) Only the most recent of3 resultswithin the time period is included. Creatinine 6.02(H) 0.70 - 1.30 mg/dL [facility] 12/05/2024 3:00 AM EDT 12/06/2024 12:58 PM EDT Juvenal Cr MD LAB BLOOD ORDERABLES Final Re sult Performing Organization Address [facility] de Phone Number [facility] [address] [place] [address] * Bilirubin, total (12/05/2024 3:00 AM EDT) Only the most recent of3 resultswithin the time period is included. Total Bilirubin 0.4 0.3 - 1.2 mg/dL [facility] 12/05/2024 3:00 AM EDT 12/06/2024 12:58 PM EDT Juvenal Cr MD LAB BLOOD ORDERABLES Final Re sult Performing Organization Address [facility] de Phone Number [facility] [address] [place] [address] * (ABNORMAL) Electrolyte panel (12/05/2024 3:00 AM [...] ORDERABLES Final Re sult Performing Organization Address [facility] de Phone Number [facility] [address] [place] [address] * (ABNORMAL) Hemoglobin and hematocrit (11/14/2024 3:00 AM EDT) Only the most recent of2 resultswithin the time period is included. Hgb 9.7(L) 13.7 - 17.5 g/dL [facility] Hematocrit 29.3(L) 40.1 - 51.0 % [facility] Hemoglobin x 3 29.1(L) 41.1 - 52.5 g/dL [facility] 11/14/2024 3:00 AM EDT 11/15/2024 12:22 PM EDT Juvenal Cr MD LAB BLOOD ORDERABLES Final Re sult Performing Organization Address [facility] de Phone Number [facility] [address] [place] [address] * Lipid panel (10/31/2024 3:00 AM EDT) [...] ORDERABLES Final Re sult Performing Organization Address [facility] Co de Phone Number [facility] [address] [place] [address] * (ABNORMAL) Phosphorus (10/26/2024 3:00 AM EDT) Phosphorus, Serum 9.8(H) 2.5 - 5.0 mg/dL [facility] 10/26/2024 3:00 AM EDT 10/27/2024 1:10 PM EDT Juvenal Cr MD LAB BLOOD ORDERABLES Final Re sult Performing Organization Address [facility] de Phone Number [facility] [address] [place] [address] * Occult blood x 3, stool (01/22/2022) Occult Blood, Stool #1 Negative Negative [facility] Comment: Performed by [facility]. Occult Blood, Stool #2 Negative Negative [facility] Comment: Performed by [facility]. Collection Time 600 [facility] 01/22/2022 01/27/2022 1:2 3 PM EDT Narrative [facility] - 01/27/2022 Unless otherwise specified, test(s) performed at: [facility], [address] [place], [place] [id number] FINISH CARPENTER: Cruzito Knutson M.D. For any questions, please call customer service at FREQUENCY:OTHER Resulting Agency Comment Specimen source: Occult Blood Card us Juvenal Cr MD LAB BODY FLUIDS AND STOOLS OR DERABLES Final Result [facility] from Last 3 Months or Most Recently Relevant to Health Maintenance Insurance [place]
--- OUTSIDE RECORDS SUMMARY | 2024-12-18 13:17 | XMS_ITS | Encounter Summary ---
Author Organization [employer] Address [address] [place] [address] Care Team Providers Care Security Guards Dispatcher Name Role Phone Andie Whitmore Primary Care Provider Trevor Restrepo MD Unavailable [phone] Juvenal Cr MD Unavailable [phone] Kamini Chavarria MD Unavailable Winston Bhagat DPM Unavailable [phone] Reason for Visit * Reason Onset Date Comments Hospital Follow-up 11/09/2024 Encounter Details Date Type Department Care Team ([facility] st Contact Info) Description 11/09/2024 Telephone [facility] [address] [place], [place] [phone] Andie Whitmore FNP [address] [place] [address] Hospital Follow-up Social History Tobacco Use Types [...] from pt requesting a HDF appt. Hospital: [facility] Date of admission: 11/04/24 Discharge date: 11/08/24 Diagnosed: pneumonia *Send message to [place] Clinical Care Coordinators documented in this encounter Plan of Treatment Upcoming Encounters Date Type Department Care Team ([facility] st Contact Info) Description 02/18/2025 11:15 AM EDT Office Visit [facility] [address] [place] [address] Andie Whitmore FNP [address] [place] [address] documented as of this encounter Visit Diagnoses Not on filedocumented in this encounter Additional Health Concerns Assessment Noted Time PHQ-9 Depression Total Score: 1 12/23/19 23 3:02 PM EDT documented as of this encounter Care Teams Security Guards Dispatcher Relationship Specialty Start Date End Date Andie Whitmore FNP [address] [place] [address] PCP - General Family Medicine 11/04/21 Trevor Restrepo MD [address] [place] [address] Urology 07/29/24 Juvenal Cr MD [address] [facility] [address] [place] [phone] Nephrology 07/29/24 Kamini Chavarria MD [address] [facility] [address] [place] [address] Neurology 07/29/24 Winston Bhagat DPM [address] [facility] [address] [place] [address] Podiatry 07/29/24 documented as of this encounter
--- OUTSIDE RECORDS SUMMARY | 2024-12-18 13:17 | XMS_ITS | Encounter Summary ---
Author Organization [facility] Address [address] [phone] Phone Care Team Providers Care Securities Lending Trader Name Role Phone Unavailable Primary Care Provider Unavailabl e Encounter Details Date Type Department Care Team ([facility] st Contact Info) Description 11/12/2024 TCM in Dialysis Clinic [facility] [address] [phone] Clinton Ortega MD [address] [phone] Social History Tobacco Use Types [...] obtained. The patient was seen for a hawy-[id number]-[id number] visit as part of Transitional Care Management services. Attending Lead Atg Developer: CLINTON ORTEGA Dialysis Location: [facility] Schedule: Shift: 1 INTERACTIVE CONTACT Contact [...] patient or caregiver VISIT DIAGNOSES CPT Code 83306 - High complexity, seen within 7 days [...]
--- OUTSIDE RECORDS SUMMARY | 2024-12-18 13:17 | XMS_ITS | Clinical Summary ---
Author Organization [employer] Address [address] [facility] 7[address] [place] [address] Care Team Providers Care Full Fashioned Garment Knitter Name Role Phone Andie Whitmore Primary Care Provider [phone] Trevor Restrepo MD Unavailable Juvenal Cr MD Unavailable [phone] Kamini Chavarria MD Unavailable Winston Bhagat DPM [...] Following with Podiatry - Dr. Bhagat at [place] Consult Jun 2024: Debridement of toenails 6-10, with plan to cont topical Jublia. RTC 3 months. Healthcare maintenance 12/12/2023 Overview (12/12/2023): Optometry: CEE 11/10/23 (Dr. Mohr). Noted trace macular edema, follow up in 3 months PSA: hx prostate CA, following with [facility] Urology Heart failure with mildly re duced [...] w/ Hospitalization 08/04 - 08/07/23 at [facility] Exacerbation w/ Hospitalization 11/20-11/25/24 at [facility] ESRD on HD: communication with Dr. Cr [...] Overview (12/12/2023): Following with Dr. Restrepo ([facility] Urology) Hx of bilateral stent placement ESRD (end stage renal disease) 11/05/2021 Assessment & Plan (04/27/2023 2:16 PM EDT): -Hemodialysis MWF at [address] [place] [address] Dialysis (first shift) -Access: Left arm basilic vein transposition performed on 08/03/2021. -Mar 2023: fistulagram performed, [facility] Vascular Dr. Blackburn. Has been working well since Assessment & Plan (12/22/2022 8:12 PM EDT): -Hemodialysis MWF at [address] [place] [address] Dialysis -Access: Left arm basilic vein transposition performed on 08/03/2021. Have started to access fistula at dialysis -Left AVF w/ +thrill/+bruit Prostate cancer metastatic to bone 11/05/2021 Assessment & Plan (07/29/2024 10:41 PM EST): Flor score ranging from 7 to 9. 10/05/21 cystoscopy with bilateral ureteral stent exchange performed by [facility] Urology Continue to follow with [facility] Urology - Dr. Restrepo Continue to follow with [facility] Heme/Onc Previously on Bicalutamide 50mg PO daily through Urology, currently taking Abiraterone 01/24/23: cystoscopy with bilateral stent exchange November 2023: Bone scan stable, no progression Target 3 years hormone therapy then reduction to intermittent anti-androgen Apr 2024: DXA normal Assessment & Plan (04/27/2023 2:17 PM EDT): ?? Venus score ranging from 7 to 9. ?? 10/05/21 cystoscopy with bilateral ureteral stent exchange performed by [facility] Urology ?? Continue to follow with [facility] Urology - Dr. Restrepo ?? Continue to follow with [facility] Heme/Onc ?? Previously on Bicalutamide 50mg PO daily through Urology, currently taking Abiraterone ?? 01/24/23: cystoscopy with bilateral stent exchange Assessment & Plan (12/22/2022 8:13 PM EDT): ?? Venus score ranging from 7 to 9. ?? 10/05/21 cystoscopy with bilateral ureteral stent exchange performed by [facility] Urology ?? Continue to follow with [facility] Urology - Dr. Restrepo ?? Continue to follow with [facility] Heme/Onc ?? Previously on Bicalutamide 50mg PO [...] Type Department Care Team Description 12/04/2024 Telephone [facility] [address] [place] [address] Andie Whitmore FNP TC: PET SCAN RESULTS 11/30/2024 2:00 PM EDT Office Visit [facility] [address] [place] [address] Andie Whitmore FNP Pneumonia due to infectious organism, unspecified laterality, unspecified part of lung (Primary Dx); Heart failure with mildly reduced ejection fraction (HFmrEF) ([facility]); Primary hypertension 11/30/2024 Travel 11/27/2024 Telephone [facility] [address] [place] [address] Andie Whitmore FNP Priti recall 11/27/2024 Travel 11/27/2024 Patient Outreach [facility] [address] [place] [address] Andie Whitmore FNP Transition Of Care (Tcm) (HDF unscheduled LVM ) 11/20/2024 Orders Only GENERIC EXTERNAL DATA DEPARTMENT Provider, Generic External Data 11/09/2024 Refill [facility] [address] [place] [address] Andie Whitmore FNP Primary hypertension (Primary Dx) 11/09/2024 Patient Outreach [facility] [address] [place] [address] Andie Whitmore FNP Transition Of Care (Tcm) (HDF scheduled.) 11/09/2024 Telephone [facility] [address] [place] [address] Andie Whitmore FNP Hospital Follow-up 11/03/2024 Orders Only GENERIC EXTERNAL DATA DEPARTMENT Provider, Generic External Data 10/12/2024 Population Health Risk Score [facility] ([facility] Department [address] [place] [phone] Provider, Population Health Generic 10/11/2024 Orders Only GENERIC EXTERNAL DATA DEPARTMENT Provider, Generic External Data 09/27/2024 Patient Outreach [facility] [address] [place] [address] Andie Whitmore FNP Transition Of Care (Tcm) [...] Description 02/18/2025 11:15 AM EDT Office Visit [facility] [address] [place] [address] Andie Whitmore, CORINNE [address] [place] [address] Health Maintenance Due Date Last Done Comments [...] EDT Narrative 11/25/2024 9:14 AM EDT ? [facility] ?[address] ?[place] [address] ?XRay Report ? Signed ? Patient: Maribeth,Darwin ?MR#: [id number] ? : 1960 ?Acct:[id number] ? Age/Sex: 64 / M ?ADM Date: 11/20/24 ? Loc: HO.IMC ?457-1 ? Attending Dr: Douglas Lagunas MD ? Ordering Physician: Douglas Lagunas MD ?? Date of Service: 11/23/24 ?? Procedure(s): XR chest 2V ?? Accession Number(s): [id number] ? cc: Douglas Lagunas MD; Andie Whitmore ? CLINICAL HISTORY: Follow up on pleural effusi ? Exam: PA and lateral views of the chest. ? Comparison: Chest CT November 21, 2023. ? Findings: ? Cardiac silhouette is puji-yk-bbnmhhhkad enlarged. ?? Pleural effusion seen on the [...] DD/ 0912 ? TD/TT: 11/25/24 0912 ? All Terrain Vehicle Technician: ? Procedure Note Tierra, Rosemarie - 11/25/[address] [address] XRay Report Signed Patient: Emilia Stahl#: [id number] : 1Acct:[id number] Age/Sex: 64 / MADM Date: 11/20/24 Loc: .[facility] 457-[address]: Douglas Lagunas MD Ordering Physician: Douglas Lagunas MD Date of Service: 11/23/24 Procedure(s): XR chest 2V Accession Number(s): [id number] cc: Douglas Lagunas MD; Andie Whitmore CLINICAL HISTORY: Follow up on pleural effusi Exam: PA and lateral views of the chest. Comparison: Chest CT November 21, 2023. Findings: Cardiac silhouette is aker-ul-wahvwmxboa enlarged. Pleural effusion seen on the patient's [...] in OV> 11/25/24912 DD/ 1 TD/TT: 11/25/24911 All Terrain Vehicle Technician: [facility] External Provider IMG XR PROCEDURES Edited Result - Final * VENOUS BLOOD GAS (11/20/2024 11:21 PM EDT) Only the most recent of2 resultswithin the time period is included. VBG pH 7.41 7.32 - 7.43 [facility] Comment:METER #: [id number] additional_comment: [facility] PCO2 37 mmHg [facility] Comment:METER #: [id number] additional_comment: [facility] PO2 79 mmHg [facility] Comment:METER #: [id number] additional_comment: [facility] Base Excess -0.4 mmol/L [facility] Comment:METER #: [id number] additional_comment: [facility] HCO3 23 22 - 26 mmol/L [facility] Comment:METER #: [id number] additional_comment: [facility] O2 Sat, Rober 96.0 % [facility] Comment:METER #: [id number] additional_comment: [facility] 11/20/2024 11:2 1 PM EDT 11/20/2024 11:25 PM EDT us Generic External Data Provider LAB BLOOD ORDERAB LES Final Result [facility] [address] [facility] [place] [address] [phone] * CTA Chest PE Protocal (11/20/2024 10:31 PM EDT) Only the most recent of2 resultswithin the time period is included. Anatomical Region Laterality Modality Body, Chest Computed Tomogra phy 11/20/2024 10:3 1 PM EDT Narrative 11/20/2024 10:32 PM EDT ? [facility] ?[address] ?[place] [address] ? CT Scan Report ? Signed ? Patient: Maribeth,Darwin ?MR#: [id number] ? : 1960 ?Acct:[id number] ? Age/Sex: 64 / M ?ADM Date: 11/20/24 ? Loc: HO.ED ? Attending Dr: ? Ordering Physician: Senia Langston MD ?? Date of Service: 11/20/24 ?? Procedure(s): CT angio chest PE protocol ?? Accession Number(s): [id number] ? cc: Senia Langston MD; Andie Whitmore CO[employer] AND [employer]SH SUPERVISOR ? Report Number: ?? [id number]: Total DLP = ??367.00 mGy-cm ? CLINICAL [...] ? DD/ 30 ? TD/TT: 11/20/242230 ? All Terrain Vehicle Technician: ? Procedure Note Tierra, Rosemarie - 11/20/[address] [place] [address] [address] Scan Report Signed Patient: Emilia Stahl#: [id number] : 1960cct:[id number] Age/Sex: 64 / MADM Date: 11/20/24 Loc: .ED Attending Dr: Ordering Physician: Senia Langston MD Date of Service: 11/20/24 Procedure(s): CT angio chest PE protocol Accession Number(s): [id number] cc: Senia Langston MD; Andie Whitmore [employer] SUPERVISOR Report Number: [id number]: Total DLP = 367.00 mGy-cm CLINICAL HISTORY: [...] in OV> 11/20/242231 DD/ 30 TD/TT: 11/20/242230 All Terrain Vehicle Technician: [facility] External Provider IMG CT PROCEDURES Final Result * (ABNORMAL) High Sensitivity Troponin I (11/20/2024 7:10 PM EDT) Only the most recent of3 resultswithin the time period is included. [facility] TROPONIN I HIGH SENSITIVITY 57.8(H) <3.5 - 35.0 ng/L [facility] Comment:The [place] high sens itivity Troponin-I results should beused in conjunction with other diagnostic information suchas ECG, clinical observations and information, and patientsymptoms to aid in the diagnosis of VA. 11/20/2024 7:10 PM EDT 11/20/2024 7:15 PM EDT Generic External Data Provider LAB BLOOD ORDERAB LES Final Result [facility] [address] [place] [phone] * SARS-CoV-2 RNA, Influenza A/B, and RSV RNA, Ql NAAT (11/20/2024 7:10 PM EDT) Only the most recent of2 resultswithin the time period is included. [facility] Influenza A PCR NEGATIVE Negative [facility] Influenza B PCR NEGATIVE Negative [facility] Resp Syncy Virus RNA Qual PCR NEGATIVE Negative [facility] SARS COV2 PCR NEGATIVE Negative [facility] Comment:All test results mus [...] use by authorized laboratories.Testing performed on the [employer] utilizingreal-time RT-PCR.All SARS CoV2 and positive influenza A/B results arereported to [facility]. 11/20/2024 7:10 PM EDT 11/20/2024 7:15 PM EDT Generic External Data Provider LAB MICROBIOLOGY - GENERAL ORDERABLES Final Result [facility] [address] [place] [phone] * (ABNORMAL) CBC auto differential (11/20/2024 7:10 PM EDT) Only the most recent of2 resultswithin the time period is included. [facility] White Blood Count 7.2 4.8 - 10.8 X10*3/uL [facility] Red Blood Count 3.39(L) 4.60 - 5.80 X10*6/uL [facility] Hemoglobin 10.0(L) 14.0 - 18.0 g/dl [facility] Hematocrit 30.0(L) 42.0 - 52.0 % [facility] Mean Corpuscular Volume 88.5 80.0 - 98.0 fL [facility] Mean Corpuscular Hemoglobin 29.5 27.0 - 33.0 pg [facility] Mean Corpuscular HGB Conc 33.3 31.0 - 36.0 g/dl [facility] Red Cell Distribution Width 20.2(H) 11.0 - 16.0 % [facility] Platelet Count 222 160 - 400 X10*3/uL [facility] Mean Platelet Volume 10.8 9.4 - 12.4 fL [facility] Neutrophils Percent Auto 77.9(H) 45 - 73 % [facility] Imm Gran Pct Auto 0.4 0.0 - 0.4 % [facility] Lymphocytes Percent Auto 12.8(L) 20 - 40 % [facility] Monocytes Percent Auto 6.1 2 - 11 % [facility] Eosinophils Percent Auto 1.7 0 - 4 % [facility] Basophils Percent Auto 1.1 0 - 2 % [facility] NRBC Pct Auto 0.0 0.0 - 0.2 /100WBC [facility] Neutrophils Absolute Auto 5.6 2.0 - 8.3 x10*3/uL [facility] Imm Gran Abs Auto 0.03 0.00 - 0.03 X10*3/uL [facility] Lymphocytes Absolute Auto 0.9(L) 1.2 - 4.9 X10*3/uL [facility] Monocytes Absolute Auto 0.4 0.1 - 1.2 X10*3/uL [facility] Eosinophils Absolute Auto 0.1 0.0 - 0.4 X10*3/uL [facility] Basophils Absolute Auto 0.1 0.0 - 0.2 X10*3/uL [facility] NRBC Abs Auto 0.000 0.0 - 0.012 X10*3/uL [facility] 11/20/2024 7:10 PM EDT 11/20/2024 7:15 PM EDT us Generic External Data Provider LAB BLOOD ORDERAB LES Final Result [facility] [address] [place], [place] [phone] * (ABNORMAL) Partial Thromboplastin Time, Activated (APTT) (11/20/2024 7:10 PM EDT) Partial Thromboplastin Time 53.3(H) 26.0 - 36.8 SEC [facility] Comment:For information rega rding the monitoring of direct thrombininhibitors, please refer to Pharmacy. 11/20/2024 7:10 PM EDT 11/20/2024 7:15 PM EDT Generic External Data Provider LAB BLOOD ORDERAB LES Final Result Performing Organization Address [facility] Co de Phone Number [facility] [address] [place] [phone] * Prothrombin Time-INR (11/20/2024 7:10 PM EDT) [facility] Prothrombin Time 11.2 10.9 - 12.4 SEC [facility] INTERNATIONAL NORM RATIO 1.0 0.9 - 1.1 [facility] Comment:INTERNATIONAL NORMAL IZED RATIO (INR) REFERENCE [...] 7:10 PM EDT 11/20/2024 7:15 PM EDT [employer] External Data Provider LAB BLOOD ORDERAB LES Final Result Performing Organization Address [facility] Co de Phone Number [facility] [address] [place] [address] [phone] * (ABNORMAL) B Type Natriuretic Peptide (BNP) (11/20/2024 7:10 PM EDT) Only the most recent of2 resultswithin the time period is included. B Type Natriuretic Peptide 7,929(H) <100 pg/mL [facility] 11/20/2024 7:10 PM EDT 11/20/2024 7:15 PM EDT us Generic External Data Provider LAB BLOOD ORDERAB LES Final Result [facility] [address] [place] [phone] [phone] * (ABNORMAL) Comprehensive Metabolic Panel (11/20/2024 7:10 PM EDT) Sodium 130(L) 135 - 145 mmol/L [facility] Potassium 4.1 3.3 - 5.1 mmol/L [facility] Chloride 91(L) 96 - 108 mmol/L [facility] Carbon Dioxide 19(L) 22 - 29 mmol/L [facility] Anion Gap 24(H) 12 - 20 [facility] Urea Nitrogen (BUN) 46(H) 9 - 16 mg/dL [facility] Creatinine, Serum 5.06(HH) 0.5 - 1.4 mg/dL [facility] Comment:Critical value for t est(s): LACTA Results called to marjan back by: NIURKA Person calling: JOHN Date:11/20/24 Time: 1945 Creatinine Clr Calc Pharmacy 12.5 [facility] Comment:eGFR (calculated fro m the MDRD study equation) and eCrCl(calculated from the Cockcroft-Gault equation) are based ondifferent parameters and may not yield comparable results.If eCrCl result is absurd, please check patient'sheight/weight. Estimated Glomerular Filt Rate 12 [facility] Comment:Chronic Kidney Disea se: Estimated GFR < 60 mL/min/1.31m7Qdjnjd Kidney Disease: Estimated GFR < 15 mL/min/1.73m2 Glucose 124(H) 60 - 115 mg/dL [facility] Calcium 9.5 8.4 - 10.2 mg/dL [facility] Bilirubin, Total 0.5 0.0 - 1.0 mg/dL [facility] Aspartate Amino Transferase 17 5 - 37 U/L [facility] Alanine Aminotransferase 6 0 - 40 U/L [facility] Total Protein 6.4(L) 6.5 - 8.0 g/dL [facility] Albumin Level 3.9 3.5 - 5.0 g/dL [facility] Alkaline Phosphatase 111 39 - 117 U/L [facility] 11/20/2024 7:10 PM EDT 11/20/2024 7:15 PM EDT us Generic External Data Provider LAB BLOOD ORDERAB LES Final Result [facility] [address] [place] [phone] * XR Chest 1 View (11/20/2024 7:00 PM EDT) Only the most recent of2 resultswithin the time period is included. Anatomical Region Laterality Modality Chest Radiographic Debra ging 11/20/2024 7:00 PM EDT Narrative 11/20/2024 7:02 PM EDT ? [facility] ?[address] ?[place] [address] ?XRay Report ? Signed ? Patient: Darwin Stahl ?MR#: [id number] ? : 1960 ?Acct:[id number] ? Age/Sex: 64 / M ?ADM Date: 11/20/24 ? Loc: HO.ED ? Attending Dr: ? Ordering Physician: Zuhair Batista ?? Date of Service: 11/20/24 ?? Procedure(s): XR chest 1V ?? Accession Number(s): [id number] ? cc: Zuhair Batista; Andie Whitmore [employer] SUPERVISOR ? CLINICAL HISTORY: SOB. Pneumonia? 1 view [...] ? DD/ 99 ? TD/TT: 11/20/241899 ? All Terrain Vehicle Technician: ? Procedure Note [place], Image - 11/20/[address] [address] XRay Report Signed Patient: Emilia Stahl#: [id number] : 1960cct:[id number] Age/Sex: 64 / MADM Date: 11/20/24 Loc: HO.ED Attending Dr: Ordering Physician: Zuhair Batista Date of Service: 11/20/24 Procedure(s): XR chest 1V Accession Number(s): [id number] cc: Zuhair Batista; Andie Whitmore CLINICAL HISTORY: [...] MD Signed By: <Electronically signed by Sin Schmitd MD in OV> 11/20/241901 DD/ 99 TD/TT: 11/20/241899 All Terrain Vehicle Technician: [facility] External Provider IMG XR PROCEDURES Final Result * Respiratory Viral Panel PCR (11/03/2024 11:57 AM EDT) Pathologist [facility] Adenovirus PCR Not Detected Not Detect. [facility] Bordetella pertussis PCR Not Detected Not Detect. [facility] Comment:Interpret results wi th caution. If B. pertussis isspecifically suspected, additional testing using analternate method is recommended. Bordetella parapertussis PCR Not Detected Not Detect. [facility] Chlamydia pneumoniae PCR Not Detected Not Detect. [facility] Coronavirus 229E PCR Not Detected Not Detect. [facility] Coronavirus HKU1 PCR Not Detected Not Detect. [facility] Coronavirus NL63 PCR Not Detected Not Detect. [facility] Coronavirus OC43 PCR Not Detected Not Detect. [facility] SARS-CoV-2 PCR Not Detected Not Detect. [facility] Comment:SARS-CoV-2 not detec montrell by real-time [...] Influenza A PCR Not Detected Not Detect. [facility] Influenza A Subtype H1 Not Detected Not Detect. [facility] Influenza A H1-2009 PCR Not Detected Not Detect. [facility] Influenza A Subtype H3 Not Detected Not Detect. [facility] Influenza B PCR Not Detected Not Detect. [facility] Human metapneumovirus PCR Not Detected Not Detect. [facility] Rhino/Enterovirus PCR Not Detected Not Detect. [facility] Mycoplasma pneumoniae PCR Not Detected Not Detect. [facility] Parainfluenza 1 PCR Not Detected Not Detect. [facility] Parainfluenza 2 PCR Not Detected Not Detect. [facility] Parainfluenza 3 PCR Not Detected Not Detect. [facility] Parainfluenza 4 PCR Not Detected Not Detect. [facility] RSV PCR Not Detected Not Detect. [facility] Resp Panel NA Note See Note H [facility] Comment:All results must be [...] assay is performed by Multiplexed PCR, utilizing [employer]. 11/03/2024 11:5 7 AM EDT 11/03/2024 12:01 PM EDT us Generic External Data Provider LAB BLOOD ORDERAB LES Final Result Performing Organization Address [facility]/ZIP Co de Phone Number [facility] [address] [place] [phone] * Magnesium (11/03/2024 10:02 AM EDT) Magnesium 2.1 1.6 - 2.6 mg/dL [facility] 11/03/2024 10:0 2 AM EDT 11/03/2024 10:09 AM EDT us Generic External Data Provider LAB BLOOD ORDERAB LES Final Result Performing Organization Address [facility]/ZIP Co de Phone Number [facility] [address] [place] [phone] * Lipase (11/03/2024 10:02 AM EDT) Lipase 22 8 - 78 U/L [facility] 11/03/2024 10:0 2 AM EDT 11/03/2024 10:09 AM EDT Generic External Data Provider LAB BLOOD ORDERAB LES Final Result Performing Organization Address [facility]/ZIP Co de Phone Number [facility] [address] [place] [phone] * (ABNORMAL) Hepatic Function Panel (11/03/2024 10:02 AM EDT) Bilirubin, Total 1.4(H) 0.0 - 1.0 mg/dL [facility] Bilirubin, Direct 0.5 0.0 - 0.5 mg/dL [facility] Aspartate Amino Transferase 27 5 - 37 U/L [facility] Alanine Aminotransferase 12 0 - 40 U/L [facility] Total Protein 7.1 6.5 - 8.0 g/dL [facility] Albumin Level 4.5 3.5 - 5.0 g/dL [facility] Alkaline Phosphatase 113 39 - 117 U/L [facility] 11/03/2024 10:0 2 AM EDT 11/03/2024 10:09 AM EDT Generic External Data Provider LAB BLOOD ORDERAB LES Final Result Performing Organization Address [facility]/ZIP Co de Phone Number [facility] [address] [place] [phone] * (ABNORMAL) Basic Metabolic Panel (11/03/2024 10:02 AM EDT) Sodium 136 135 - 145 mmol/L [facility] Potassium 3.8 3.3 - 5.1 mmol/L [facility] Chloride 94(L) 96 - 108 mmol/L [facility] Carbon Dioxide 29 22 - 29 mmol/L [facility] Anion Gap 17 12 - 20 [facility] Urea Nitrogen (BUN) 40(H) 9 - 16 mg/dL [facility] Creatinine, Serum 4.35(HH) 0.5 - 1.4 mg/dL [facility] Comment:Critical value for t est(s): DELMI Results called to and readback by:KNOXMEL Person calling:LHEUREM Date:11/03/24Time:1030 Creatinine Clr Calc Pharmacy 13.9 [facility] Comment:eGFR (calculated fro m the MDRD study equation) and eCrCl(calculated from the Cockcroft-Gault equation) are based ondifferent parameters and may not yield comparable results.If eCrCl result is absurd, please check patient'sheight/weight. Estimated Glomerular Filt Rate 14 [facility] Comment:Chronic Kidney Disea se: Estimated GFR < 60 mL/min/1.94k6Erllki Kidney Disease: Estimated GFR < 15 mL/min/1.73m2 Glucose 88 60 - 115 mg/dL [facility] Calcium 10.3(H) 8.4 - 10.2 mg/dL [facility] 11/03/2024 10:0 2 AM EDT 11/03/2024 10:09 AM EDT Generic External Data Provider LAB BLOOD ORDERAB LES Final Result Performing Organization Address City/[facility]/ZIP Co de Phone Number [facility] [address] [place] [phone] Lactic Acid (11/03/2024 10:01 AM EDT) Lactic Acid 0.8 0.5 - 2.0 mmol/L [facility] 11/03/2024 10:0 1 AM EDT 11/03/2024 10:09 AM EDT us Generic External Data Provider LAB BLOOD ORDERAB LES Final Result Performing Organization Address [facility]/ZIP Co de Phone Number [facility] [address] [place] [phone] * (ABNORMAL) Testosterone, Total, males (Adult), [place] (10/11/2024 10:35 AM EDT) Testosterone, Total 10(A) 250 - 1100 ng/dL [facility] Comment:Men with clinically significant hypogonadalsymptoms and testosterone values repeatedly inthe range of the 200-300 ng/dL or less, maybenefit from testosterone treatment afteradequate risk and benefits counseling.For additional information, please refer [email or web address]/[email or web address](This link is being provided for informational/educational purposes only.)This test was developed and its analytical performancecharacteristics have been determined by [employer] [place], [place]. It hasnot been cleared or approved by the U.S. Food and DrugAdministration. This assay has been validated pursuantto the CLIA regulations and is used for clinicalpurposes.THIS TEST WAS PERFORMED AT:[facility] [place] [address]AMXGCTVHELGA HAYES MD,PHD 10/11/2024 10:3 5 AM EDT 10/11/2024 1:28 PM EDT Generic External Data Provider LAB BLOOD ORDERAB LES Final Result Performing Organization Address [facility]/ZIP Co de Phone Number [facility] [address] [place] [phone] * PSA,Total (10/11/2024 10:35 AM EDT) Prostate Specific Antigen 0.14 <0.05 - 4.0 ng/mL [facility] Comment:PSA methodology: Wild Emery i ChemiluminescentMicroparticle Immunoassay (CMIA) 10/11/2024 10:3 5 AM EDT 10/11/2024 1:28 PM EDT Generic External Data Provider LAB BLOOD ORDERAB LES Final Result Performing Organization Address [facility]/ZIP Co de Phone Number [facility] [address] [place] [phone] * Lipid Panel, Standard (07/26/2024 11:25 AM EST) Triglycerides 54 <150 mg/dL [facility] Comment:Desirable Triglyceri de: less than 150 mg/dLBorderline High Triglyceride 150-199 mg/dLHigh Triglyceride: 200-499 mg/dLVery High Triglyceride: greater than or equal to 5OO mg/dL Cholesterol 142 <200 mg/dL [facility] Comment:Desirable Cholestero l: less than 200 mg/dLBorderline High Cholesterol: 200-239 mg/dLHigh Cholesterol: greater than 239 mg/dL LDL Cholesterol Calculated 83 <100 mg/dL [facility] Comment:Desirable LDL: less than 100 mg/dLNear Optimal/Above Optimal LDL: 110- 129 mg/dLBorderline High LDL: 130-159 mg/dLHigh LDL: 160-189 mg/dLVery High LDL: greater than or equal to 190 mg/dL HDL Cholesterol 49 >40 mg/dL [facility] Comment:Desirable HDL: great er than 40 mg/dL Note: This HDL assay may give artificially low results in patients with liver disease. Blood Venous blood specimen / Unknown 07/26/2024 11:25 AM EST 07/26/2024 1:05 PM EST us Andie Whitmore [employer] SUPERVISOR LAB BLOOD ORDERABLES Final Res ult [facility] [address] [place] [phone] from Last 3 Months or Most Recently Relevant to Health Maintenance Insurance MEDICARE [facility] STANDARD Care Teams Full Fashioned Garment Knitter Relationship Specialty Start Date End Date Andie Whitmore FNP [address] [place] [address] PCP - General Family Medicine 11/04/21 Trevor Restrepo MD [address] [place] [address] Urology 07/29/24 Juvenal Cr MD [address] [facility] [address] [place] [address] Nephrology 07/29/24 Kamini Chavarria MD [address] [place] [address] [address] [place] [address] Neurology 07/29/24 Winston Bhagat DPM [address] [place] [address] Podiatry 07/29/24
[2024-12-19] VITALS (22 sets, daily range): BP systolic 142–170; BP diastolic 63–80; PULSE 62–72; RESP 14–25; TEMP 36.4–36.8; O2SAT 86–100; BMI 26.1
[2024-12-19 06:54] LABS: MANUAL DIFF FLAG NO
[2024-12-19] MEDS: 0.9 % Sodium Chloride 1,000 ML 100 ML IVCONT (07:15)
[2024-12-19 07:23] LABS: Anion Gap 28 (12-20); Blood Urea Nitrogen 125 mg/dL (9-16); Calcium 9.5 mg/dL (8.4-10.2); Carbon Dioxide 14 mmol/L (22-29); Chloride 97 mmol/L (96-108); Creatinine Clr Calc Pharmacy 6.4; Estimated Glomerular Filt Rate 6; Glucose Random 111 mg/dL (60-115); Potassium 4.3 mmol/L (3.3-5.1); Sodium 135 mmol/L (135-145)
[2024-12-19 07:33] LABS: Basophils Absolute Auto 0.1 X10*3/uL (0.0-0.2); Basophils Percent Auto 1.1 % (0-2); Eosinophils Absolute Auto 0.2 X10*3/uL (0.0-0.4); Eosinophils Percent Auto 2.2 % (0-4); Hematocrit 30.2 % (42.0-52.0); Hemoglobin 10.1 g/dl (14.0-18.0); Imm Gran Abs Auto 0.11 X10*3/uL (0.00-0.03); Imm Gran Pct Auto 1.5 % (0.0-0.4); Lymphocytes Absolute Auto 0.5 X10*3/uL (1.2-4.9); Lymphocytes Percent Auto 7.2 % (20-40); Mean Corpuscular HGB Conc 33.4 g/dl (31.0-36.0); Mean Corpuscular Hemoglobin 28.9 pg (27.0-33.0); Mean Corpuscular Volume 86.5 fL (80.0-98.0); Mean Platelet Volume 10.8 fL (9.4-12.4); Monocytes Absolute Auto 0.5 X10*3/uL (0.1-1.2); Monocytes Percent Auto 6.6 % (2-11); Neutrophils Absolute Auto 5.9 x10*3/uL (2.0-8.3); Neutrophils Percent Auto 81.4 % (45-73); Platelet Count 205 X10*3/uL (160-400); Red Blood Count 3.49 X10*6/uL (4.60-5.80); Red Cell Distribution Width 18.7 % (11.0-16.0); White Blood Count 7.2 X10*3/uL (4.8-10.8)
[2024-12-19] MEDS: Heparin Sodium,Porcine 10,000 UNIT/10 ML VIAL 3000 UNIT IVPUSH (08:10)
[2024-12-19] MEDS: fentaNYL citrate/PF 100 MCG/2 ML VIAL 25 MCG IVPUSH ×3 (08:15→08:39)
--- NOTE | 2024-12-19 08:52 | P.OP_ITS ---
Operative Note Operative Note Date of Service: 12/19/24 Narrative: Angiogram report from [facility] Preoperative diagnosis: 1. End-stage renal disease 2. Excessive bleeding from fistula Postoperative diagnosis: Same Procedure: 1. Fistulogram with central imaging 2. Venous outflow tract plasty Surgeon:Humberto Blackburn M.D., FACS, RPVI Commodity Management Specialist:None Anesthesia: Local only Specimens:none Drains:none Estimated blood loss: Less than 10 ml Radiation Dose: 80.6 mGy Implant: Medtronic Impact DCB 8 x 40 - 3 times Indications: Very pleasant 64-year-old gentleman who is 4 years out from a left upper extremity basilic vein transposition. During dialysis sessions he was noticing excessive bleeding. He now has presents for fistulogram with intervention. The patient has signed the informed consent after reviewing risks, complications, benefits, and alternatives previously discussed with the patient. The patient was given the opportunity to ask any additional questions or voice any concerns. All questions were answered to the patient's satisfaction. Procedure in detail: Patient was brought to the angiography suite prior to which a time-out was called for patient identification and site verification. Left upper extremity was prepped and draped in standard surgical fashion. We directly punctured the fistula close to the arteriovenous anastomosis. Through that we placed a precision 5 Armenian sheath. Fistulogram was performed. It was noted that he had 3 individual areas of stenosis. Centrally there was no significant stenosis noted. At this time we administered 3000 units of systemic heparin after 5 minutes of circulation time we upsized to a 7 Armenian sheath. Through the sheath we then initially plasty each of these 3 areas with a 6 x 30 balloon. We then individually plasty these areas with an 8 x 40 drug coated balloon. In each location this was brought into position under 3 minutes and insufflated for a total of 3 minutes in duration. Once this was accomplished completion fistulogram demonstrated excellent result. Pursestring suture of nylon was placed at the puncture site. Sheath was removed. Adequate hemostasis was achieved. Patient tolerated the procedure well returned to recovery with stable vitals. Interpretation of films: 1. Appropriate puncture fistula on fluoroscopy 2. Fistulogram demonstrated 3 individual locations of stenosis at the outflow tract. 3. Completion fistulogram demonstrated excellent result with resolution of stenosis. Conclusion: 1. Successful fistulogram 2. Anticoagulation status: No change This note is constructed using voice recognition software. While every effort has been made to ensure accuracy, med care manager errors may have been included. Thank you for allowing me to participate in the care of your patient. Yours sincerely, Humberto Blackburn MD, FACS, R.P.V.I.
== END 2024-12-19 15:08 | disposition home or self-care (01) ==
LOC: HO.SSS 14:59
PROVIDERS: PCP Registered Nurse; Visit Provider Surgery Vascular Surgery
DX: T82.858A Stenosis of other vascular prosthetic devices, implants and grafts, initial encounter (principal); T82.838A Hemorrhage due to vascular prosthetic devices, implants and grafts, initial encounter; Y82.8 Other medical devices associated with adverse incidents; I12.0 Hypertensive chronic kidney disease with stage 5 chronic kidney disease or end stage renal disease; N18.6 End stage renal disease; Z99.2 Dependence on renal dialysis; D64.9 Anemia, unspecified; E83.51 Hypocalcemia; Z87.891 Personal history of nicotine dependence
CPT/HCPCS: 36415; 36901; 36902; 80048; 85025; C1725; C1769; C1894; C2623; J1644; J3010; Q9967

== ENCOUNTER 2024-12-21 09:48 | Outpatient (AMB) | payer MEDICARE, MEDICAID, SELFPAY ==
--- NOTE | 2024-12-21 10:00 | A.OFFVIS_ITS ---
Intake Visit Reasons: L arm check Intake Note: Patient presents for arm check. Patient had fistulagram on TuesdayDecember 19. Comes in today with pain and swelling. States his arm looks angry. Accompanied by: Self / Same As Patient Allergies No Known Allergies [No Known Allergies*] Allergy (Verified 12/21/24 10:02) HPI HPI L arm check: Details: Very pleasant 64-year-old gentleman presents for follow-up status post left upper extremity fistulogram. He was done on Tuesday and afterwards had a dialysis session. He was able to complete the dialysis session and had very good results with that. Post dialysis developed a hematoma significant swelling after that. He has had no other issues since that time. He reports that he had been icing it and had noted some improvement today he presented to the dialysis center today they requested a re-evaluation. [facility] Medical History End stage chronic kidney disease ESRD (end stage renal disease) Anemia HTN (hypertension) Creatinine elevation Urinary retention History of upper gastrointestinal bleeding A-V fistula Fusion of lumbar spine Chronic kidney disease Urinary tract infection Enlarged prostate Kidney disease Elevated PSA Anemia Metabolic acidosis Bilateral hydronephrosis Hypocalcemia Acute anemia Acute kidney injury Surgical History History of fusion of cervical spine Hx of esophagogastroduodenoscopy History of transurethral resection of prostate S/P arteriovenous (AV) fistula creation History of hip replacement, total Social History Household Members: Other Household Members Other:: SISTER Housing: House Housing Other:: mobile home Do you presently have visiting nurse or other home services: No Alcohol intake: former Patient Tobacco Use Status: Former Tobacco user Tobacco use type: Cigarette Years Smoked: 50 e-Cigarette/Vaping Use: Former Use Substance Use Type: Marijuana service: No Current occupational status: disabled Review of Systems Const All systems reviewed & are unremarkable except as noted in HPI and below Reports no additional complaints ENT Reports Normal hearing present Card Denies chest pain, Denies chest pain at rest, Denies chest pain with activity and Denies pedal edema Resp Denies cough GI Denies abdominal pain Musc Denies abnormal gait, Denies muscle cramps and Denies radiating pain into limb Skin/Breast Denies skin ulcer and Denies wounds Neuro Reports Normal hearing present and Denies abnormal gait Psych Reports no additional complaints Physical Exam Const General: cooperative, healthy appearing and comfortable Orientation/consciousness: oriented to person, oriented to place and oriented to time HEENT Head: Yes normal to inspection Neck Neck: Yes normal visual inspection Carotids: no bruits Chest Chest palpation & inspection: normal inspection of the chest Resp Effort & Inspection: normal respiratory effort and able to speak in complete sentences Auscultation: clear to auscultation bilaterally, no crackles, no rales, no rhonchi and no wheezes Cardio Rate: regular rate Rhythm: regular rhythm Heart sounds: S1 normal heart sound present and S2 normal heart sound present Bruits: no carotid bruits Peripheral pulses: Peripheral pulses 2+ throughout GI Inspection: Yes normal to inspection Skin Wounds: no wounds Hair: normal Neuro General: oriented to person, oriented to place and oriented to time Cranial nerves: Yes CN's II-XII intact bilaterally and Yes Normal hearing present Cognition (Neuro): normal cognition Motor exam (neuro): 5/5 motor strength present throughout Extrem Other: Left upper extremity good thrill and bruit General: No clubbing, No cyanosis and No edema Psych Appearance: grossly normal Mental Status: mental status grossly normal Speech and movement: Normal speech and movement present Assessment & Plan Assessment & Plan (1) ESRD (end stage renal disease): Comment: 08/03/2021 - left arm basilic vein transposition 03/23/2022 - left are fistulogram with plasty x2 03/16/2023 - left arm fistula plasty x2 (8x40 DCB) 12/19/2024 - left arm fistula plasty x3 (8x40 DCB) Code(s): N18.6 - End stage renal disease Category: Medical Plan: In short patient did well after the fistulogram. It appears that it may have been infiltrated after the dialysis session. He will rest the arm and an additional day and they will retry for dialysis for tomorrow. Stable from my perspective for use for tomorrow. He does have a 2 week scheduled follow-up postprocedure with us. Thank you for allowing us to assist in his care. If there are any questions or concerns please do not hesitate to contact us. Coding Level of Care Code Est Pt Level 3 (80621) Diagnoses ESRD (end stage renal disease) N18.6
--- OUTSIDE RECORDS SUMMARY | 2024-12-21 10:04 | XMS_ITS | Encounter Summary ---
Author Organization [employer] Address [address] [facility] [address] [place] [address] Care Team Providers Care Staff Consultant Name Role Phone Andie Whitmore Primary Care Provider [phone] Trevor Restrepo MD Unavailable [phone] Juvenal Cr MD Unavailable [phone] Kamini Chavarria MD Unavailable [phone] Winston Bhagat DPM Unavailable [phone] Reason for Referral * Imaging (Urgent) - Closed Specialty Diagnoses / Procedures Referred By Contac t Referred To Contact Cardiology Diagnoses ESRD (end stage renal disease) ([facility]) Primary hypertension Shortness of breath Procedures Transthoracic Echo (TTE) Complete Andie Whitmore FNP [address] [place] [address] Phone: tel: fax: [address] Phone: tel: fax: Referral ID Status Reason Start Date Expiration Date V isits Requested Visits Authorized [id number] Closed Perform Procedure 06/29/2023 06/28/2024 1 1 Reason for Visit * Reason Onset Date Comments Call Back Request 06/21/2023 Encounter Details Date Type Department Care Team (Late st Contact Info) Description 06/21/2023 Telephone [facility] [address] [place] [address] Andie Whitmore FNP [address] [place] [address] Call Back Request Social History Tobacco Use [...] order of the heart. Contact pt at [phone] * Telephone Encounter - Iram Pierre RN [...] just once, had an EKG, and the mexican food cook said he was just fine. Patient has [...] having dialysis tomorrow. Please contact pt at [phone] documented in this encounter Plan of Treatment Upcoming Encounters Date Type Department Care Team ([facility] st Contact Info) Description 02/18/2025 11:15 AM EDT Office Visit [facility] [address] [place] [address] Andie Whitmore FNP [address] [place] [address] Scheduled Orders Name Type Priority Associated Diagnoses Order Schedule Transthoracic Echo (TTE) Complete Echocardiography Urgent ESRD (end stage renal disease) ([facility]) Primary hypertension Shortness of breath Expected: 06/29/2023 (Approximate), Expires: 06/29/2025 documented as of this encounter Visit Diagnoses Diagnosis ESRD (end stage renal disease) ([facility])- Primary End stage renal disease Primary hypertension Unspecified essential hypertension Shortness of breath documented in this encounter Additional Health Concerns Assessment Noted Time PHQ-9 Depression Total Score: 1 12/23/19 23 3:02 PM EDT documented as of this encounter Care Teams Staff Consultant Relationship Specialty Start Date End Date Andie Whitmore FNP [address] [place] [address] PCP - General Family Medicine 11/04/21 Trevor Restrepo MD [address] [place] [address] Urology 07/29/24 Juvenal Cr MD [address] [facility] [address] [place] [address] Nephrology 07/29/24 Kamini Chavarria MD [address] [facility] [address] [place] [address] Neurology 07/29/24 Winston Bhagat DPM [address] [place] [address] Podiatry 07/29/24 documented as of this encounter
== END 2024-12-21 10:20 | disposition home or self-care (01) ==
PROVIDERS: PCP Registered Nurse; Visit Provider Surgery Vascular Surgery
DX: N18.6 End stage renal disease (principal)
CPT/HCPCS: 99213

== ENCOUNTER → 2024-12-21 09:48 | Outpatient (BNVA) | payer MEDICARE, MEDICAID, SELFPAY | PROVIDERS: PCP Registered Nurse; Visit Provider Surgery Vascular Surgery | DX: N18.6 End stage renal disease (principal) | CPT/HCPCS: 99212 ==

== ENCOUNTER 2025-01-01 11:48 | Outpatient (AMB) | payer MEDICARE, MEDICAID, SELFPAY ==
--- NOTE | 2025-01-01 11:48 | A.OFFVIS_ITS ---
Intake Visit Reasons: 2 week follow up s/p L arm fistula 12/19/24 Intake Note: 2 week follow up Left arm fistulagram 12/19/24. Pt states he still has bruising but looks better. Accompanied by: Self / Same As Patient Allergies No Known Allergies [No Known Allergies*] Allergy (Verified 01/01/25 11:52) HPI HPI 2 week follow up s/p L arm fistula 12/19/24: Details: Darwin is presenting today on a follow up to a left arm fistulogram, performed on 12/19. He did present 2d later to our office with concerns of left arm swelling and possible infiltration s/p dialysis session after the fistulogram. He states that the swelling has gone down significantly and there is only a small amount of bruising. He states that the dialysis center has been utilizing it without any issues/concerns. He denies any other issues with infiltration. He states there is no concerns with his dialysis treatments. He states he is feeling good otherwise. [facility] Medical History End stage chronic kidney disease ESRD (end stage renal disease) Anemia HTN (hypertension) Creatinine elevation Urinary retention History of upper gastrointestinal bleeding A-V fistula Fusion of lumbar spine Chronic kidney disease Urinary tract infection Enlarged prostate Kidney disease Elevated PSA Anemia Metabolic acidosis Bilateral hydronephrosis Hypocalcemia Acute anemia Acute kidney injury Surgical History History of fusion of cervical spine Hx of esophagogastroduodenoscopy History of transurethral resection of prostate S/P arteriovenous (AV) fistula creation History of hip replacement, total Social History Household Members: Other Household Members Other:: SISTER Housing: House Housing Other:: mobile home Do you presently have visiting nurse or other home services: No Alcohol intake: former Patient Tobacco Use Status: Former Tobacco user Tobacco use type: Cigarette Years Smoked: 50 e-Cigarette/Vaping Use: Former Use Substance Use Type: Marijuana service: No Current occupational status: disabled Review of Systems Const Reports as per HPI and Denies weakness ENT Reports Normal hearing present and Denies dizziness Card Reports as per HPI, Denies chest pain, Denies chest pain at rest, Denies chest pain with activity, Denies dyspnea and Denies dyspnea on exertion Resp Reports as per HPI, Denies cough, Denies dyspnea and Denies dyspnea on exertion GI Reports as per HPI, Denies abdominal pain, Denies nausea and Denies vomiting Musc Denies numbness Skin/Breast Reports as per HPI, Denies erythema and Denies wounds Neuro Reports Normal hearing present, Denies dizziness, Denies numbness, Denies Sensory deficit (Neuro) and Denies weakness Psych Reports no additional complaints Endo Reports no additional complaints Physical Exam Const General: healthy appearing and no acute distress Orientation/consciousness: patient oriented x3 HEENT Head: Yes normal to inspection Ears: hearing grossly normal bilaterally Mouth: Normal oral and palatal mucosa present Resp Effort & Inspection: normal respiratory effort and able to speak in complete sentences Auscultation: clear to auscultation bilaterally Cardio Jugular venous distension: no JVD Rate: regular rate Rhythm: regular rhythm Heart sounds: S1 normal heart sound present and S2 normal heart sound present Bruits: no abdominal aortic bruits, no carotid bruits, no femoral bruits and no renal bruits Peripheral pulses: Peripheral pulses 2+ throughout GI Inspection: Yes normal to inspection Palpation (GI): No Abdominal aortic bruit present Skin General skin exam: no rashes or lesions noted Wounds: no wounds Hair: normal Neuro General: patient oriented x3 Cranial nerves: Yes Normal hearing present Cognition (Neuro): normal cognition Gait exam (Neuro): Normal gait present Motor exam (neuro): 5/5 motor strength present throughout Sensory Exam: No Sensory deficit (Neuro) Extrem Other: Left fistula site: thrill and bruit noted. Violaceous bruising noted around the site only; no bruising noted down the arm like previously. Fistula site not painful to palpation. No swelling noted. General: Yes normal to inspection, Yes full ROM, Yes capillary refill normal and Yes normal gait Assessment & Plan Assessment & Plan (1) ESRD (end stage renal disease): Comment: 08/03/2021 - left arm basilic vein transposition 03/23/2022 - left are fistulogram with plasty x2 03/16/2023 - left arm fistula plasty x2 (8x40 DCB) 12/19/2024 - left arm fistula plasty x3 (8x40 DCB) Code(s): N18.6 - End stage renal disease Category: Medical Plan: Darwin is presenting today s/p fistulogram, performed by Dr Blackburn on 12/19. He did have a possible infiltration s/p dialysis session, also on 12/19 with swelling, pain, and bruising. The swelling has completely gone away and the bruising is fading. The pt states that there has been no other concerns with the dialysis treatments and they have been going very well. He denies any pain at the site. We will only need to see the pt prn now; he remains stable. Thank you for allowing us to care for the patient. If there are any questions or concerns, please do not hesitate to reach out to us. Coding Level of Care Code Est Pt Level 3 (78385) Diagnoses ESRD (end stage renal disease) N18.6
--- OUTSIDE RECORDS SUMMARY | 2025-01-01 13:20 | XMS_ITS | Encounter Summary ---
Author Organization [employer] Address [address] [facility] [address] [place] [address] Care Team Providers Care Contact Agent Name Role Phone Andie Whitmore Primary Care Provider [phone] Trevor Restrepo MD Unavailable [phone] MD Unavailable [phone] Kamini Chavarria MD Unavailable [phone] Winston Bhagat DPM Unavailable [phone] Reason for Referral * Imaging (Urgent) - Closed Specialty Diagnoses / Procedures Referred By Contac t Referred To Contact Cardiology Diagnoses ESRD (end stage renal disease) ([facility]) Primary hypertension Shortness of breath Procedures Transthoracic Echo (TTE) Complete Andie Whitmore FNP [address] [place] [address] Phone: tel: fax: [address] Phone: tel: fax: Referral ID Status Reason Start Date Expiration Date V isits Requested Visits Authorized [id number] Closed Perform Procedure 06/29/2023 06/28/2024 1 1 Reason for Visit * Reason Onset Date Comments Call Back Request 06/21/2023 Encounter Details Date Type Department Care Team (Late st Contact Info) Description 06/21/2023 Telephone [facility] [address] [place] [address] Andie Whitmore, CORINNE [address] [place] [address] Call Back Request Social History Tobacco Use [...] order of the heart. Contact pt at [phone] * Telephone Encounter - Iram Pierre RN [...] just once, had an EKG, and the diesel truck mechanic said he was just fine. Patient has [...] having dialysis tomorrow. Please contact pt at [phone] documented in this encounter Plan of Treatment Upcoming Encounters Date Type Department Care Team (Late st Contact Info) Description 02/18/2025 11:15 AM EDT Office Visit [facility] [address] [place] [address] Andie Whitmore FNP [address] [place] [address] Scheduled Orders Name Type Priority Associated Diagnoses Order Schedule Transthoracic Echo (TTE) Complete Echocardiography Urgent ESRD (end stage renal disease) ([facility]) Primary hypertension Shortness of breath Expected: 06/29/2023 (Approximate), Expires: 06/29/2025 documented as of this encounter Visit Diagnoses Diagnosis ESRD (end stage renal disease) ([facility])- Primary End stage renal disease Primary hypertension Unspecified essential hypertension Shortness of breath documented in this encounter Additional Health Concerns Assessment Noted Time PHQ-9 Depression Total Score: 1 12/23/19 23 3:02 PM EDT documented as of this encounter Care Teams Contact Agent Relationship Specialty Start Date End Date Andie Whitmore FNP [address] [place] [address] PCP - General Family Medicine 11/04/21 Trevor Restrepo MD [address] [place] [address] Urology 07/29/24 Juvenal Cr MD [address] [facility] [address] [place] [address] Nephrology 07/29/24 Kamini Chavarria MD [address] [place] [address] [place] [phone] Neurology 07/29/24 Winston Bhagat DPM [address] [place] [address] [place] [id number] Podiatry 07/29/24 documented as of this encounter
== END 2025-01-01 12:05 | disposition home or self-care (01) ==
PROVIDERS: PCP Registered Nurse; Visit Provider Physician Assistant Surgical
DX: N18.6 End stage renal disease (principal)
CPT/HCPCS: 99213

== ENCOUNTER → 2025-01-01 11:48 | Outpatient (BNVA) | payer MEDICARE, MEDICAID, SELFPAY | PROVIDERS: PCP Registered Nurse; Visit Provider Physician Assistant Surgical | DX: N18.6 End stage renal disease (principal); Z99.2 Dependence on renal dialysis; Z98.890 Other specified postprocedural states | CPT/HCPCS: 99212 ==

== ENCOUNTER 2025-01-05 07:41 | Outpatient (REF) | payer MEDICARE, MEDICAID, SELFPAY ==
--- NOTE | ~2025-01-05 | XR_ITS ---
CLINICAL HISTORY: PNA October 2024, due for repeat to confirm resolution. 2 view chest x-ray Comparison: CR - XR CHEST 2V - 11/23/24 16:29 EDT Findings: Moderate diffuse reticulonodular pulmonary opacity. Heart size is enlarged. No acute fracture. IMPRESSION: Moderate edema versus atypical pneumonia. This document has been electronically signed by: Yaya Coates MD on 01/07/2025 17:24:26
== END 2025-01-05 07:42 | disposition home or self-care (01) ==
LOC: HO.XRAY 07:41
PROVIDERS: Visit Provider Registered Nurse
DX: J18.9 Pneumonia, unspecified organism (principal)
CPT/HCPCS: 71046

== ENCOUNTER → 2025-01-05 07:48 | Outpatient (BNV) | payer MEDICARE, MEDICAID, SELFPAY | PROVIDERS: Visit Provider Radiology Diagnostic Radiology | DX: R91.8 Other nonspecific abnormal finding of lung field (principal) | CPT/HCPCS: 71046 ==

== ENCOUNTER 2025-02-01 11:08 | Inpatient (IN) | payer MEDICARE, MEDICAID, SELFPAY ==
[2025-02-01] VITALS (11 sets, daily range): BP systolic 117–160; BP diastolic 56–118; PULSE 68–98; RESP 16–24; TEMP 36.8–38.3; O2SAT 84–100; BMI 20.8; BMI 23.0
--- NOTE | ~2025-02-01 | CT_ITS ---
CLINICAL HISTORY: Pneumonia. Hypoxic? coughing CT chest without contrast Comparison: CR - XR CHEST 2V - 02/01/25 12:[address]/SR - CT ANGIO CHEST PE PROTOCOL - 11/20/24 21:[address]/SR - CT CHEST WO IV CON - 09/08/24 11:21 EST Findings: Heart is enlarged with small pericardial effusion. Atherosclerosis calcification of the coronary artery. The visualized thyroid and mediastinum are unremarkable. Small to moderate right pleural effusion. There is opacity of the bilateral lower lobe and lingula. Interseptal thickening of the lung parenchyma. 3 mm pulmonary nodule of the right middle lobe series 4, image 93. The upper abdomen is unremarkable. There is unchanged sclerosis of the T11 vertebral body. IMPRESSION: Small to moderate right pleural effusion. Opacity of the bilateral lower lobe and lingula could represent atelectasis or infection. Small pericardial effusion. Small pulmonary nodule. CHF exacerbation. Sclerosis of the T11 vertebral body. Bony metastasis is in the differential diagnosis. This document has been electronically signed by: Juan Worthington MD on 02/02/2025 16:08:58
--- NOTE | ~2025-02-01 | XR_ITS ---
CLINICAL HISTORY: sob 2 view chest x-ray Comparison: None provided Findings: There is pulmonary vascular congestion. A small right effusion is not excluded. There is cardiomegaly. No acute fracture. IMPRESSION: 1. There is pulmonary vascular congestion. 2. A small right effusion is not excluded. 3. There is cardiomegaly. This document has been electronically signed by: Dalton Lopez MD on 02/01/2025 12:13:29
--- NOTE | 2025-02-01 11:20 | ECG_ITS ---
Test Reason : DYSPNEA Blood Pressure : */* mmHG Vent. Rate : 81 BPM Atrial Rate : 81 BPM P-R Int : 760 ms QRS Dur : 112 ms QT Int : 364 ms P-R-T Axes : * -56 99 degrees QTcB Int : 422 ms Sinus rhythm with 1st degree A-V block with frequent Premature ventricular complexes in a pattern of bigeminy Left axis deviation Incomplete right bundle branch block Minimal voltage criteria for LVH, may be normal variant ( R in aVL ) Anterior infarct , age undetermined ST & T wave abnormality, consider lateral ischemia Abnormal ECG When compared with ECG of 20-Nov-2024 19:06, NE interval has increased Incomplete right bundle branch block is now Present Referred By: Brianna Porras Electronically Signed By: UNA BOTELLO MD
--- NOTE | 2025-02-01 11:20 | ED.GENADULT ---
HPI - General Adult General Chief complaint: General Medical Stated complaint: dialysis sent for CXR Time Seen by Provider: 02/01/25 11:37 Related Data Home Medications ?Medication ?Instructions ?Recorded ?Confirmed blood pressure test kit-chino #1 ea 03/18/22 11/21/24 amlodipine 10 mg tablet 10 mg PO DAILY 12/17/22 02/01/25 ropinirole 2 mg tablet 6 mg PO TID 08/04/23 02/01/25 abiraterone 250 mg tablet 1,000 mg PO BEDTIME 09/08/24 02/01/25 albuterol sulfate 90 mcg/actuation 2 puff inhalation Q4H PRN wheezing 09/08/24 02/01/25 aerosol inhaler (Ventolin HFA) efinaconazole 10 % topical 1 appl topical DAILY 09/08/24 02/01/25 solution with applicator (Jublia) hydralazine 50 mg tablet 100 mg PO BID 09/08/24 02/01/25 rosuvastatin 5 mg tablet 5 mg PO DAILY 09/08/24 02/01/25 bumetanide 2 mg tablet 2 mg PO SUTUTHSA 11/03/24 02/01/25 sevelamer carbonate 800 mg tablet 800 mg PO TIDWM 11/03/24 02/01/25 vit C 250 mg-vit E 90 mg-zinc 40 2 tab PO BEDTIME 11/03/24 02/01/25 mg-copper 1 [id number]-[id number] capsule (PreserVision AREDS-2) losartan 50 mg tablet 50 mg PO SUTUTHSA 02/01/25 02/01/25 Allergies Allergy/AdvReac Type Severity Reaction Status Date / Time No Known Allergies (No Known Allergy Verified 02/01/25 11:22 Allergies*) [facility] Past Medical History Medical History End stage chronic kidney disease ESRD (end stage renal disease) Anemia HTN (hypertension) Creatinine elevation Urinary retention History of upper gastrointestinal bleeding A-V fistula Fusion of lumbar spine Chronic kidney disease Urinary tract infection Enlarged prostate Kidney disease Elevated PSA Anemia Metabolic acidosis Bilateral hydronephrosis Hypocalcemia Acute anemia Acute kidney injury Surgical History History of fusion of cervical spine Hx of esophagogastroduodenoscopy History of transurethral resection of prostate S/P arteriovenous (AV) fistula creation History of hip replacement, total Social History Social History Household Members: Family Household Members Other:: SISTER Housing: House Housing Other:: mobile home Do you presently have visiting nurse or other home services: No Alcohol intake: former Patient Tobacco Use Status: Former Tobacco user Tobacco use type: Cigarette Years Smoked: 50 Smoked in Last 30 Days: No e-Cigarette/Vaping Use: Former Use Use of substances other than those prescribed or required for medical reasons: Yes Substance Use Type: Marijuana Have you been hit, kicked, punched, or otherwise hurt by someone within the past year? If so, by whom?: No Do you feel safe in your current relationship?: No Current Relationship Is there a partner from a previous relationship who is making you feel unsafe now?: No Are you made to feel afraid or neglected: No Advance Directives: No Advance Directives Information Provided: Yes Do you have a plan to hurt others: No Plan Recently lost weight without trying: No How much weight loss: Not applicable Eating poorly because of decreased appetite: No Nutrition screen score: 0 Poor oral hygiene: No service: No Current occupational status: disabled Physical Exam ED Vital Signs: Vital Signs - 24 hr 02/01/25 11:17 02/01/25 11:23 02/01/25 12:30 Temperature 100.2 F Pulse Rate 84 84 Respiratory Rate 16 16 Blood Pressure 117/69 Pulse Oximetry 84 L 94 97 Oxygen Delivery Method Room Air Nasal Cannula Nasal Cannula Oxygen Flow Rate 2 2.5 02/01/25 13:38 02/01/25 13:39 02/01/25 13:55 Temperature 101 F H Pulse Rate 82 78 Respiratory Rate 24 H 24 H Blood Pressure 160/118 H 160/118 H 153/71 H Pulse Oximetry 95 95 Oxygen Delivery Method Nasal Cannula Nasal Cannula Oxygen Flow Rate 3.5 3 02/01/25 14:51 Temperature 98.7 F Pulse Rate 70 Respiratory Rate 16 Blood Pressure Pulse Oximetry Oxygen Delivery Method Oxygen Flow Rate BMI result Body Mass Index 20.8 Course Course Course Narrative: This is an RME: Additional HPI, ROS, PE not included below will be deferred to primary provider. RME assessment and note performed by: Brianna Porras PA-C 64-year-old male with a PMH significant for?HFrEF, ESRD on HD M/W/F, prostate cancer with mets to the bone, anemia of chronic disease, HTN, HLD, hx of erosive gastritis, and restless leg syndrome who presents to the ER with a complaint of dry cough. He had dialysis this morning and was told he had a fever of 101 this morning. Found to be hypoxic at 84% on RA. He states that he uses supplemental oxygen as needed. Plan: Labs, EKG, CXR, further ER eval needed Reevaluation(s) Reevaluation #1: duplicate note, see note by primary provider, Zuhair Batista PA-C Medications Administered Generic Name Dose Route Start Last Admin Trade Name Freq PRN Reason Stop Dose Admin Heparin Sodium (Porcine) 5,000 unit 02/01/25 19:30 02/01/25 19:47 Heparin Sodium,Porcine 5,000 Unit/Ml Vial SUBCUT 5,000 unit Q8H FREIDA Administration Hydralazine HCl 100 mg 02/01/25 21:00 02/01/25 19:47 Hydralazine Hcl 50 Mg Tablet PO 100 mg BID FREIDA Administration Protocol Ropinirole HCl 6 mg 02/01/25 21:00 02/01/25 19:46 Ropinirole Hcl 2 Mg Tablet PO 6 mg TID FREIDA Administration Discontinued Medications Generic Name Dose Route Start Last Admin Trade Name Freq PRN Reason Stop Dose Admin Acetaminophen 975 mg 02/01/25 14:01 02/01/25 14:12 Acetaminophen 325 Mg Tablet PO 02/01/25 14:02 975 mg ONCE ONE Administration Furosemide 40 mg 02/01/25 13:22 02/01/25 13:39 Furosemide 40 Mg/4 Ml Vial IVPUSH 02/01/25 13:23 40 mg STAT STA Administration Protocol Heparin Sodium (Porcine) 5,000 unit 02/01/25 17:00 02/01/25 19:44 Heparin Sodium,Porcine 5,000 Unit/Ml Vial SUBCUT Not Given Q8H FREIDA Oseltamivir Phosphate 75 mg 02/01/25 13:00 02/01/25 13:18 Oseltamivir Phosphate 75 Mg Capsule PO 02/01/25 13:01 75 mg ONCE ONE Administration Medical Decision Making Lab Data 02/01/25 11:44 02/01/25 11:44 Labs: Lab Results 02/01/25 02/01/25 02/01/25 Range/Units 11:44 11:50 12:16 WBC 5.4 (4.8-10.8) X10*3/uL RBC 4.23 L D (4.60-5.80) X10*6/uL Hgb 11.9 L (14.0-18.0) g/dl Hct 35.7 L (42.0-52.0) % MCV 84.4 (80.0-98.0) fL MCH 28.1 (27.0-33.0) pg MCHC 33.3 (31.0-36.0) g/dl RDW 17.3 H (11.0-16.0) % Plt Count 105 L D (160-400) X10*3/uL MPV Not Reportable Immature Gran % (Auto) 0.4 (0.0-0.4) % Neut % (Auto) 83.4 H (45-73) % Lymph % (Auto) 5.2 L (20-40) % [place] % (Auto) 9.7 (2-11) % Eos % (Auto) 0.6 (0-4) % Baso % (Auto) 0.7 (0-2) % Lymph # (Auto) 0.3 L (1.2-4.9) X10*3/uL [place] # (Auto) 0.5 (0.1-1.2) X10*3/uL Eos # (Auto) 0.0 (0.0-0.4) X10*3/uL Baso # (Auto) 0.0 (0.0-0.2) X10*3/uL Abs Immat Gran (auto) 0.02 (0.00-0.03) X10*3/uL Absolute Neuts (auto) 4.5 (2.0-8.3) x10*3/uL Absolute Nucleated RBC 0.000 (0.0-0.012) X10*3/uL Nucleated RBC % (auto) 0.0 (0.0-0.2) /100WBC VBG pH 7.57 H (7.32-7.43) VBG pCO2 35 mmHg VBG pO2 38 mmHg VBG HCO3 32 H (22-26) mmol/L VBG O2 Saturation 61.0 % VBG Base Excess 10.2 mmol/L Sodium 135 (135-145) mmol/L Potassium 3.6 (3.3-5.1) mmol/L Chloride 93 L (96-108) mmol/L Carbon Dioxide 25 (22-29) mmol/L Anion Gap 21 H (12-20) BUN 22 H (9-16) mg/dL Creatinine 3.03 H (0.5-1.4) mg/dL Estim Creat Clear Calc 20.6 Estimated GFR 21 Random Glucose 93 (60-115) mg/dL Lactic Acid 1.2 (0.5-2.0) mmol/L Calcium 9.9 (8.4-10.2) mg/dL Magnesium 2.0 (1.6-2.6) mg/dL Total Bilirubin 1.3 H (0.0-1.0) mg/dL Direct Bilirubin 0.5 (0.0-0.5) mg/dL AST 59 H (5-37) U/L ALT 22 (0-40) U/L Alkaline Phosphatase 230 H (39-117) U/L Troponin I High Sens 134.7 H* D (<3.5-35.0) ng/L B-Natriuretic Peptide 9070 H (<100) pg/mL Total Protein 7.4 (6.5-8.0) g/dL Albumin 4.5 (3.5-5.0) g/dL Influenza Type A (PCR) POSITIVE A (Negative) Influenza Type B (PCR) NEGATIVE (Negative) RSV RNA Qual (PCR) NEGATIVE (Negative) SARS-CoV-2 RNA (RT-PCR) NEGATIVE (Negative) 02/01/25 Range/Units 14:47 WBC (4.8-10.8) X10*3/uL RBC (4.60-5.80) X10*6/uL Hgb (14.0-18.0) g/dl Hct (42.0-52.0) % MCV (80.0-98.0) fL MCH (27.0-33.0) pg MCHC (31.0-36.0) g/dl RDW (11.0-16.0) % Plt Count (160-400) X10*3/uL MPV Immature Gran % (Auto) (0.0-0.4) % Neut % (Auto) (45-73) % Lymph % (Auto) (20-40) % [place] % (Auto) (2-11) % Eos % (Auto) (0-4) % Baso % (Auto) (0-2) % Lymph # (Auto) (1.2-4.9) X10*3/uL [place] # (Auto) (0.1-1.2) X10*3/uL Eos # (Auto) (0.0-0.4) X10*3/uL Baso # (Auto) (0.0-0.2) X10*3/uL Abs Immat Gran (auto) (0.00-0.03) X10*3/uL Absolute Neuts (auto) (2.0-8.3) x10*3/uL Absolute Nucleated RBC (0.0-0.012) X10*3/uL Nucleated RBC % (auto) (0.0-0.2) /100WBC VBG pH (7.32-7.43) VBG pCO2 mmHg VBG pO2 mmHg VBG HCO3 (22-26) mmol/L VBG O2 Saturation % VBG Base Excess mmol/L Sodium (135-145) mmol/L Potassium (3.3-5.1) mmol/L Chloride (96-108) mmol/L Carbon Dioxide (22-29) mmol/L Anion Gap (12-20) BUN (9-16) mg/dL Creatinine (0.5-1.4) mg/dL Estim Creat Clear Calc Estimated GFR Random Glucose (60-115) mg/dL Lactic Acid (0.5-2.0) mmol/L Calcium (8.4-10.2) mg/dL Magnesium (1.6-2.6) mg/dL Total Bilirubin (0.0-1.0) mg/dL Direct Bilirubin (0.0-0.5) mg/dL AST (5-37) U/L ALT (0-40) U/L Alkaline Phosphatase (39-117) U/L Troponin I High Sens 170.0 H* (<3.5-35.0) ng/L B-Natriuretic Peptide (<100) pg/mL Total Protein (6.5-8.0) g/dL Albumin (3.5-5.0) g/dL Influenza Type A (PCR) (Negative) Influenza Type B (PCR) (Negative) RSV RNA Qual (PCR) (Negative) SARS-CoV-2 RNA (RT-PCR) (Negative) Discharge Plan Discharge Clinical Impression: Influenza due to influenza virus, type A, human Patient Disposition: Admitted As Inpatient Interventions: Admission Worksheet (ED) Last Done: 02/01/25 17:46 Discharge Date/Time: 02/01/25 18:48
--- OUTSIDE RECORDS SUMMARY | 2025-02-01 11:30 | XMS_ITS | Clinical Summary ---
Author Organization [address] [facility] Address [address] [place] [address] Phone Care Team Providers Care Rn Postpartum Name Role Phone Andie Whitmore RN Primary [...] disease 03/05/2024 ESRD (end stage renal disease) ([facility] V24, [facility] V28) 03/02/2024 Heart failure with mildly re duced ejection fraction ([facility] V24, [facility] V28) 03/02/2024 HTN (hypertension) 03/02/2024 Obstructive uropathy 03/02/2024 Onychauxis 03/02/2024 Onychomycosis 03/02/2024 Prostate cancer metastatic t o bone ([facility] V24, [facility] V28) 03/02/2024 Secondary hyperparathyroidism of renal origin ([facility] V24) 03/02/2024 Encounters Date Type Department Care Team Description 12/06/2024 1:30 PM EDT Office Visit Orthopedic Surgery [facility] [address] [facility] [address] [place] [address] Winston Bhagat DPM Acquired hallux varus, left (Primary Dx); Dermatophytosis of nail; Difficulty walking; Pain in toe of left foot; Pain in toe of right foot; Bilateral femoral artery stenosis ([facility] V24) from Last 3 Months Social History Tobacco [...] 70 10/22/2024 3:03 PM EDT Temperature 37.2 C (99 F) 10/22/2024 3:03 PM EDT Respiratory Rate 18 [...] PM EDT Office Visit Orthopedic Surgery - [place] [address] [phone] Winston Bhagat, DPM [address] [address] Health Maintenance Due Date Last Done Comments Pneumococcal Vaccine: 50+ Years (1 of 2 - PCV) 02/29/1980 Pneumococcal Vaccine: Pediatrics (0 to 5 Years) and At-Risk Patients (6 to 64 Years) (1 of 2 - PCV) 02/29/1980 RSV Immunization Adult Patients (1 - Risk 60-74 years 1-dose series) 2021 Colorectal Cancer Screening: Colonoscopy 02/24/2024 Depression Screening 02/24/2024 12/22/2022 HIV Screening 02/24/2024 Hepatitis C Screening 02/24/2024 Medicare Annual Wellness Visit 02/24/2024 Social Influencers of Health Screening 02/24/2024 COVID-19 Vaccine (8 - Pfizer risk 2023- season) 2024 03/29/2024, 06/30/2023, 06/10/2022, Additional history exists DTaP,Tdap,and Td Vaccines (2 - Td or Tdap) 12/17/2024 12/17/2014 Hypertension/CHF/CAD Annual BMP Blood Test 11/20/2025 11/20/2024, 11/03/2024, 09/08/2024 Cholesterol Screening (Lipid Panel) 10/31/2029 10/31/2024, 08/31/2024, 07/26/2024, Additional history exists Colorectal Cancer Screening: Stool Based Tests (FOBT/FIT) Discontinued 01/22/2022 Zoster Vaccines Completed 03/13/2023, 11/15/2022 Influenza Vaccine [...] to complete this topic Insurance MEDICAID - [place] MEDICARE Care Teams Rn Postpartum Relationship Specialty Start Date End Date Andie Whitmore RN [address] [address] PCP - General 12/14/23
--- OUTSIDE RECORDS SUMMARY | 2025-02-01 11:30 | XMS_ITS | Encounter Summary ---
Author Organization [facility] Address [address] [facility] [address] [address] Phone Care Team Providers Care Business Process Expert Name Role Phone Unavailable Primary Care Provider Unavailabl e Reason for Visit * Reason Onset Date Comments Med Refill 07/17/2021 Encounter Details Date Type Department Care Team (Late st Contact Info) Description 07/17/2021 Refill [facility] [address] [place] [address] [place] [phone] Radha Palmer [address] [facility] [address] [place] [address] Social History Tobacco Use Types [...]
--- OUTSIDE RECORDS SUMMARY | 2025-02-01 11:30 | XMS_ITS ---
Author Name [facility] Address [address] [place] [address] Phone [phone] Organization [facility] e, NA DOCUMENT DISCLAIMER Multiple document versions may exist, please be sure you review the latest version. The information in the [facility] Continuity of Care [...] Instructions Dosage Route Start Date End Date [facility] amlodipine 10 mg Take by mouth [...]
[2025-02-01 11:50] LABS: MANUAL DIFF FLAG NO
[2025-02-01 11:53] LABS: Venous Blood Gas Refer to POC result
[2025-02-01 11:54] LABS: VBG HCO3 32 mmol/L (22-26); VBG O2 % Saturation 61.0 %
[2025-02-01 12:03] LABS: Hematocrit 35.7 % (42.0-52.0); Hemoglobin 11.9 g/dl (14.0-18.0); Imm Gran Abs Auto 0.02 X10*3/uL (0.00-0.03); Imm Gran Pct Auto 0.4 % (0.0-0.4); Lymphocytes Absolute Auto 0.3 X10*3/uL (1.2-4.9); Mean Corpuscular HGB Conc 33.3 g/dl (31.0-36.0); Mean Corpuscular Hemoglobin 28.1 pg (27.0-33.0); Mean Corpuscular Volume 84.4 fL (80.0-98.0); NRBC Abs Auto 0.000 X10*3/uL (0.0-0.012); NRBC Pct Auto 0.0 /100WBC (0.0-0.2); Red Blood Count 4.23 X10*6/uL (4.60-5.80); White Blood Count 5.4 X10*3/uL (4.8-10.8)
[2025-02-01 12:27] LABS: Resp Syncy Virus RNA Qual PCR NEGATIVE (Negative); SARS COV2 PCR INHOUSE NEGATIVE (Negative)
[2025-02-01 12:30] LABS: Platelet Count 105 X10*3/uL (160-400)
[2025-02-01 12:48] LABS: Alanine Aminotransferase 22 U/L (0-40); Albumin Level 4.5 g/dL (3.5-5.0); Alkaline Phosphatase 230 U/L (39-117); Anion Gap 21 (12-20); Aspartate Amino Transferase 59 U/L (5-37); Blood Urea Nitrogen 22 mg/dL (9-16); Calcium 9.9 mg/dL (8.4-10.2); Carbon Dioxide 25 mmol/L (22-29); Chloride 93 mmol/L (96-108); Creatinine Clr Calc Pharmacy 20.6; Estimated Glomerular Filt Rate 21; Magnesium 2.0 mg/dL (1.6-2.6); Potassium 3.6 mmol/L (3.3-5.1); Sodium 135 mmol/L (135-145); Total Protein 7.4 g/dL (6.5-8.0)
[2025-02-01 12:49] LABS: Troponin-I High Sensitivity 134.7 ng/L (<3.5-35.0)
--- NOTE | 2025-02-01 12:50 | ED_ITS ---
HPI - General Adult General Chief complaint: General Medical Stated complaint: dialysis sent for CXR Time Seen by Provider: 02/01/25 11:37 Source: patient Mode of arrival: ambulatory Limitations: no limitations History of Present Illness ED Provider: Zuhair Batista HPI narrative: 64 yold male with pmh of ESRD, CHF, Prostate Cancer, Multifocal pNeumonia presents to the ED for fever and cough. patient was at dialysis center today and he had a fever and was sent to the ED. patient states his nephew is sick with similiar symptosm. Related Data Home Medications ?Medication ?Instructions ?Recorded ?Confirmed blood pressure test kit-large #1 ea 03/18/22 11/21/24 amlodipine 10 mg tablet 10 mg PO DAILY 12/17/2211/23 ropinirole 2 mg tablet 6 mg PO TID 08/04/23 5 abiraterone 250 mg tablet 1,000 mg PO BEDTIME 09/08/24 02/01/25 albuterol sulfate 90 mcg/actuation 2 puff inhalation Q 4H PRN wheezing 09/08/24 02/01/25 aerosol inhaler (Ventolin HFA) efinaconazole 10 % topical 1 appl topical DAILY 02/01/25 solution with applicator (Jublia) hydralazine 50 mg tablet 100 mg PO BID 09/08/2402/01 rosuvastatin 5 mg tablet 5 mg PO DAILY 09/08/2402/01 bumetanide 2 mg tablet 2 mg PO SUTUTHSA 11/03/24 sevelamer carbonate 800 mg tablet 800 mg PO TIDWM 12/2302/01/25 vit C 250 mg-vit E 90 mg-zinc 40 2 tab PO BEDTIME 12/2302/01/25 mg-copper 1 ld-fidyon-fhcpdp capsule (PreserVision AREDS-2) losartan 50 mg tablet 50 mg PO SUTUTHSA 02/01/25 0 02/01/25 Allergies Allergy/AdvReac Type Severity Reaction Status Date / Time No Known Allergies (No Known Allergy Verified 02/01/25 11:22 Allergies*) Review of Systems 2 Review of Systems: COughing and fever Yes all other systems are reviewed and are negative PMFSH Past Medical History Medical History End stage chronic kidney disease ESRD (end stage renal disease) Anemia HTN (hypertension) Creatinine elevation Urinary retention History of upper gastrointestinal bleeding A-V fistula Fusion of lumbar spine Chronic kidney disease Urinary tract infection Enlarged prostate Kidney disease Elevated PSA Anemia Metabolic acidosis Bilateral hydronephrosis Hypocalcemia Acute anemia Acute kidney injury Surgical History History of fusion of cervical spine Hx of esophagogastroduodenoscopy History of transurethral resection of prostate S/P arteriovenous (AV) fistula creation History of hip replacement, total Social History Social History Household Members: Other Household Members Other:: SISTER Housing: House Housing Other:: mobile home Do you presently have visiting nurse or other home services: No Alcohol intake: former Patient Tobacco Use Status: Former Tobacco user Tobacco use type: Cigarette Years Smoked: 50 Smoked in Last 30 Days: No e-Cigarette/Vaping Use: Former Use Use of substances other than those prescribed or required for medical reasons: Yes Substance Use Type: Marijuana Advance Directives: No Advance Directives Information Provided: Yes service: No Current occupational status: disabled Physical Exam ED Vital Signs: Vital Signs - 24 hr 02/01/25 11:17 02/01/25 11:23 02/01/25 12:30 Temperature 100.2 F Pulse Rate 84 84 Respiratory Rate 16 16 Blood Pressure 117/69 Pulse Oximetry 84 L 94 97 Oxygen Delivery Method Room Air Nasal Cannula Nasal Cannula Oxygen Flow Rate 2 2.5 02/01/25 13:38 02/01/25 13:39 02/01/25 13:55 Temperature 101 F H Pulse Rate 82 78 Respiratory Rate 24 H 24 H Blood Pressure 160/118 H 160/118 H 153/71 H Pulse Oximetry 95 95 Oxygen Delivery Method Nasal Cannula Nasal Cannula Oxygen Flow Rate 3.5 3 02/01/25 14:51 Temperature 98.7 F Pulse Rate 70 Respiratory Rate 16 Blood Pressure Pulse Oximetry Oxygen Delivery Method Oxygen Flow Rate BMI result Body Mass Index 20.8 Const General: cooperative, healthy appearing, comfortable, no acute distress, well developed, alert, awake and Physically active Orientation/consciousness: patient oriented x3 HENMT Head: Yes normal to inspection, Yes No palpable skull fracture present, Yes normocephalic and Yes atraumatic Eyes General: appearance normal, both eyes and all related structures Neck Neck: Yes normal visual inspection, Yes full ROM, Yes no lymphadenopathy, Yes no meningeal signs, Yes trachea midline, Yes supple, No anterior neck swelling and No tender Chest Chest palpation & inspection: normal inspection of the chest and normal palpation of entire chest wall Resp Effort & Inspection: normal respiratory effort and able to speak in complete sentences Auscultation: clear to auscultation bilaterally Cardio Jugular venous distension: no JVD Heart sounds: S1 normal heart sound present and S2 normal heart sound present GI Inspection: Yes normal to inspection Palpation (GI): Soft to palpation, not firm, nontender, no guarding and not rigid General: Yes no CVA tenderness Back/Spine/Pelvis Back: no CVA tenderness and No back tenderness Skin General skin exam: no rashes or lesions noted, elasticity normal and turgor normal Neuro General: patient oriented x3, gait normal, tone normal, moves all extremities, Normal light touch and pain sensation, no meningeal signs, no focal motor deficits, CN's II-XI intact bilaterally and normal sensation to monofilament Extrem General: Yes normal to inspection and Yes full ROM Psych Appearance: grossly normal, well kempt and not disheveled Medications Administered Discontinued Medications Generic Name Dose Route Start Last Admin Trade Name Olivierq PRN Reason Stop Dose Admin Acetaminophen 975 mg 02/01/25 14:01 02/01/25 14:12 Acetaminophen 325 Mg Tablet PO 02/01/25 14:02 975 mg ONCE ONE Administration Furosemide 40 mg 02/01/25 13:22 02/01/25 13:39 Furosemide 40 Mg/4 Ml Vial IVPUSH 02/01/25 13:23 40 mg STAT STA Administration Protocol Oseltamivir Phosphate 75 mg 02/01/25 13:00 02/01/25 13:18 Oseltamivir Phosphate 75 Mg Capsule PO 02/01/25 13:01 75 mg ONCE ONE Administration Medical Decision Making Medical Decision Making [facility] Narrative: Still continued male with significant past medical history presents to ED for coughing and fever. Patient found to be hypoxic 84% on room air patient is placed on 2 L 95%. Chest x-ray negative for pneumonia per shows CHF. Patient positive for influenza. Blood pressure stable. Due to history of end-stage renal disease will not give any fluids. Patient presently is not septic. Lactic acid negative. Blindness and patient for dry CT to see the underlying pneumonia to give antibiotics on top of the flu. 2:54pm: Case was presented to hospitalist for admission. PITO Marcelo. Recommends waiting for the chest CT result in repeat troponin. Patient received Tamiflu and Lasix. Patient had another fever given Tylenol. Lactic acid negative. Presently viral induced infection no antibiotics needed. 6:11pm: Patient admitted for CHF exacerbation and influenza with mild hypoxia. Chest CT still pending. Differential Diagnosis Differential Diagnoses: The differential diagnosis associated with the presentation includes (CHF, influenza, pneumonia) Admission/Observation Consideration of admission/observation: Escalation of care including admission/observation considered Consult Healthcare Provider Management of the patient was discussed with: Hospitalist (PITO Marcelo) Lab Data MDM Lab Attestation statement: I reviewed the patient's lab results. 02/01/25 11:44 02/01/25 11:44 Labs: Lab Results 02/01/25 02/01/25 02/01/25 Range/Units 11:44 11:50 12:16 WBC 5.4 (4.8-10.8) X10*3/uL RBC 4.23 L D (4.60-5.80) X10*6/uL Hgb 11.9 L (14.0-18.0) g/dl Hct 35.7 L (42.0-52.0) % MCV 84.4 (80.0-98.0) fL MCH 28.1 (27.0-33.0) pg MCHC 33.3 (31.0-36.0) g/dl RDW 17.3 H (11.0-16.0) % Plt Count 105 L D (160-400) X10*3/uL MPV Not Reportable Immature Gran % (Auto) 0.4 (0.0-0.4) % Neut % (Auto) 83.4 H (45-73) % Lymph % (Auto) 5.2 L (20-40) % Mcdonough % (Auto) 9.7 (2-11) % Eos % (Auto) 0.6 (0-4) % Baso % (Auto) 0.7 (0-2) % Lymph # (Auto) 0.3 L (1.2-4.9) X10*3/uL Mcdonough # (Auto) 0.5 (0.1-1.2) X10*3/uL Eos # (Auto) 0.0 (0.0-0.4) X10*3/uL Baso # (Auto) 0.0 (0.0-0.2) X10*3/uL Abs Immat Gran (auto) 0.02 (0.00-0.03) X10*3/uL Absolute Neuts (auto) 4.5 (2.0-8.3) x10*3/uL Absolute Nucleated RBC 0.000 (0.0-0.012) X10*3/uL Nucleated RBC % (auto) 0.0 (0.0-0.2) /100WBC VBG pH 7.57 H (7.32-7.43) VBG pCO2 35 mmHg VBG pO2 38 mmHg VBG HCO3 32 H (22-26) mmol/L VBG O2 Saturation 61.0 % VBG Base Excess 10.2 mmol/L Sodium 135 (135-145) mmol/L Potassium 3.6 (3.3-5.1) mmol/L Chloride 93 L (96-108) mmol/L Carbon Dioxide 25 (22-29) mmol/L Anion Gap 21 H (12-20) BUN 22 H (9-16) mg/dL Creatinine 3.03 H (0.5-1.4) mg/dL Estim Creat Clear Calc 20.6 Estimated GFR 21 Random Glucose 93 (60-115) mg/dL Lactic Acid 1.2 (0.5-2.0) mmol/L Calcium 9.9 (8.4-10.2) mg/dL Magnesium 2.0 (1.6-2.6) mg/dL Total Bilirubin 1.3 H (0.0-1.0) mg/dL Direct Bilirubin 0.5 (0.0-0.5) mg/dL AST 59 H (5-37) U/L ALT 22 (0-40) U/L Alkaline Phosphatase 230 H (39-117) U/L Troponin I High Sens 134.7 H* D (<3.5-35.0) ng/L B-Natriuretic Peptide 9070 H (<100) pg/mL Total Protein 7.4 (6.5-8.0) g/dL Albumin 4.5 (3.5-5.0) g/dL Influenza Type A (PCR) POSITIVE A (Negative) Influenza Type B (PCR) NEGATIVE (Negative) RSV RNA Qual (PCR) NEGATIVE (Negative) SARS-CoV-2 RNA (RT-PCR) NEGATIVE (Negative) 02/01/25 Range/Units 14:47 WBC (4.8-10.8) X10*3/uL RBC (4.60-5.80) X10*6/uL Hgb (14.0-18.0) g/dl Hct (42.0-52.0) % MCV (80.0-98.0) fL MCH (27.0-33.0) pg MCHC (31.0-36.0) g/dl RDW (11.0-16.0) % Plt Count (160-400) X10*3/uL MPV Immature Gran % (Auto) (0.0-0.4) % Neut % (Auto) (45-73) % Lymph % (Auto) (20-40) % Mcdonough % (Auto) (2-11) % Eos % (Auto) (0-4) % Baso % (Auto) (0-2) % Lymph # (Auto) (1.2-4.9) X10*3/uL Mcdonough # (Auto) (0.1-1.2) X10*3/uL Eos # (Auto) (0.0-0.4) X10*3/uL Baso # (Auto) (0.0-0.2) X10*3/uL Abs Immat Gran (auto) (0.00-0.03) X10*3/uL Absolute Neuts (auto) (2.0-8.3) x10*3/uL Absolute Nucleated RBC (0.0-0.012) X10*3/uL Nucleated RBC % (auto) (0.0-0.2) /100WBC VBG pH (7.32-7.43) VBG pCO2 mmHg VBG pO2 mmHg VBG HCO3 (22-26) mmol/L VBG O2 Saturation % VBG Base Excess mmol/L Sodium (135-145) mmol/L Potassium (3.3-5.1) mmol/L Chloride (96-108) mmol/L Carbon Dioxide (22-29) mmol/L Anion Gap (12-20) BUN (9-16) mg/dL Creatinine (0.5-1.4) mg/dL Estim Creat Clear Calc Estimated GFR Random Glucose (60-115) mg/dL Lactic Acid (0.5-2.0) mmol/L Calcium (8.4-10.2) mg/dL Magnesium (1.6-2.6) mg/dL Total Bilirubin (0.0-1.0) mg/dL Direct Bilirubin (0.0-0.5) mg/dL AST (5-37) U/L ALT (0-40) U/L Alkaline Phosphatase (39-117) U/L Troponin I High Sens 170.0 H* (<3.5-35.0) ng/L B-Natriuretic Peptide (<100) pg/mL Total Protein (6.5-8.0) g/dL Albumin (3.5-5.0) g/dL Influenza Type A (PCR) (Negative) Influenza Type B (PCR) (Negative) RSV RNA Qual (PCR) (Negative) SARS-CoV-2 RNA (RT-PCR) (Negative) Critical Care Time Critical Care Time Critical Care Time: Yes Total Critical Care Time: 60 Attestation: Hypoxia 84% room air. Placed on 2 liters oxygen now 95%. positive influenza. Tamiflu and lasix ordered. NO fluids due to CHF ESRD. admitted Discharge Plan Discharge Clinical Impression: Influenza due to influenza virus, type A, human Patient Disposition: Admitted As Inpatient Interventions: Admission Worksheet (ED) Last Done: 02/01/25 17:46
[2025-02-01 13:11] LABS: B Type Natriuretic Peptide 9070 pg/mL (<100)
[2025-02-01] MEDS: Furosemide 40 MG/4 ML VIAL IVPUSH (13:39)
[2025-02-01 15:37] LABS: Troponin-I High Sensitivity 170.0 ng/L (<3.5-35.0)
--- NOTE | 2025-02-01 16:01 | PM.IMHP ---
History of Present Illness Date of Service: 02/01/25 Attending physician on admission: [facility] Chief Complaint: Fever Pt is a 64-year-old male with a PMH significant for?HFrEF, ESRD on HD M/W/F (follows w/[facility]), prostate cancer with mets to the bone, anemia of chronic disease, HTN, HLD, hx of erosive gastritis, and restless leg syndrome who presents to the ED after was found to have a fever of 101 at hemodialysis this morning. Reports symptoms started last night with diarrhea, dry cough, and increased SOB. Has a nephew at home with similar symptoms the day before. Denies myalgias, N/V or abd pain. No chest pain/pressure or palpitations. Reports received full dialysis session today. In the ED pt was febrile up to 101, tachypneic up to 24, hypertensive as high as 160/118, and desatting as low as 84% on RA. Labs were significant for testing positive for influenza type a, creatinine 3.03, T bili 1.3, AST 59, alk-phos 230, serial troponins elevated at 134.7 with repeat flat at 170.0, and BNP 9070. CXR showed pulmonary vascular congestion, cardiomegaly, and possible small right effusion. CTA of chest pending. EKG demonstrated sinus rhythm with first-degree AV block and PVCs in bigeminy pattern. Pt was treated in the ED with Tamiflu, furosemide 40 mg IV, and acetaminophen. Pt is admitted to the hospital for treatment and further evaluation of acute hypoxic respiratory failure in the setting of acute flu infection and fluid overload. Review of Systems Review of Systems: Negative except for that which is stated in the HPI. [facility] Medical History End stage chronic kidney disease ESRD (end stage renal disease) Anemia HTN (hypertension) Creatinine elevation Urinary retention History of upper gastrointestinal bleeding A-V fistula Fusion of lumbar spine Chronic kidney disease Urinary tract infection Enlarged prostate Kidney disease Elevated PSA Anemia Metabolic acidosis Bilateral hydronephrosis Hypocalcemia Acute anemia Acute kidney injury Surgical History History of fusion of cervical spine Hx of esophagogastroduodenoscopy History of transurethral resection of prostate S/P arteriovenous (AV) fistula creation History of hip replacement, total Social History Household Members: Family Household Members Other:: SISTER Housing: House Housing Other:: mobile home Do you presently have visiting nurse or other home services: No Alcohol intake: former Patient Tobacco Use Status: Former Tobacco user Tobacco use type: Cigarette Years Smoked: 50 Smoked in Last 30 Days: No e-Cigarette/Vaping Use: Former Use Use of substances other than those prescribed or required for medical reasons: Yes Substance Use Type: Marijuana Have you been hit, kicked, punched, or otherwise hurt by someone within the past year? If so, by whom?: No Do you feel safe in your current relationship?: No Current Relationship Is there a partner from a previous relationship who is making you feel unsafe now?: No Are you made to feel afraid or neglected: No Advance Directives: No Advance Directives Information Provided: Yes Do you have a plan to hurt others: No Plan Recently lost weight without trying: No How much weight loss: Not applicable Eating poorly because of decreased appetite: No Nutrition screen score: 0 Poor oral hygiene: No service: No Current occupational status: disabled [employer] Allergies Allergy/AdvReac Type Severity Reaction Status Date / Time No Known Allergies (No Known Allergy Verified 02/01/25 11:22 Allergies*) Home Medications ?Medication ?Instructions ?Recorded ?Confirmed ?Last Taken ?Type blood pressure test kit-large #1 ea 03/18/22 11/21/24 1 Day Ago History ~11/20/24 amlodipine 10 mg tablet 10 mg PO DAILY 12/17/22 02/01/25 02/01/25 History ropinirole 2 mg tablet 6 mg PO TID 08/04/23 02/01/25 02/01/25 History abiraterone 250 mg tablet 1,000 mg PO BEDTIME 09/08/24 02/01/25 02/01/25 History albuterol sulfate 90 mcg/actuation 2 puff inhalation Q4H PRN wheezing 09/08/24 02/01/25 02/01/25 History aerosol inhaler (Ventolin HFA) efinaconazole 10 % topical 1 appl topical DAILY 09/08/24 02/01/25 02/01/25 History solution with applicator (Jublia) hydralazine 50 mg tablet 100 mg PO BID 09/08/24 02/01/25 02/01/25 History rosuvastatin 5 mg tablet 5 mg PO DAILY 09/08/24 02/01/25 02/01/25 History bumetanide 2 mg tablet 2 mg PO [facility] 11/03/24 02/01/25 02/01/25 History sevelamer carbonate 800 mg tablet 800 mg PO TIDWM 11/03/24 02/01/25 02/01/25 History vit C 250 mg-vit E 90 mg-zinc 40 2 tab PO BEDTIME 11/03/24 02/01/25 02/01/25 History mg-copper 1 ys-phglrm-uepoys capsule (PreserVision AREDS-2) losartan 50 mg tablet [facility] 02/01/25 02/01/25 02/01/25 History Physical Exam Vital Signs and Narrative: Vital Signs: Last Vital Signs Temp 98.7 F 02/01/25 14:51 Pulse 70 02/01/25 14:51 Resp 16 02/01/25 14:51 BP 153/71 H 02/01/25 13:55 Pulse Ox 95 02/01/25 13:55 O2 Del Method Nasal Cannula 02/01/25 13:55 O2 Flow Rate 3 02/01/25 13:55 BMI result Body Mass Index 20.8 General: AOx3, no acute distress Resp: Diffuse rhonchi bilaterally CVS: S1, S2, RRR GI: +BS, NT, no distention Skin: Warm, dry Neuro: Cranial nerves II-XII grossly intact bilaterally. Motor grossly intact bilaterally Extremities: No edema Psych: Appropriate affect Results Labs 02/01/25 11:44 02/02/25 05:47 Labs: Laboratory Results - last 24 hr 02/01/25 02/01/25 02/01/25 11:44 11:50 12:16 MCV 84.4 MCH 28.1 MCHC 33.3 RDW 17.3 H Plt Count 105 L D MPV Not Reportable Immature Gran % (Auto) 0.4 Neut % (Auto) 83.4 H Lymph % (Auto) 5.2 L [place] % (Auto) 9.7 Eos % (Auto) 0.6 Baso % (Auto) 0.7 Lymph # (Auto) 0.3 L [place] # (Auto) 0.5 Eos # (Auto) 0.0 Baso # (Auto) 0.0 Abs Immat Gran (auto) 0.02 Absolute Neuts (auto) 4.5 Absolute Nucleated RBC 0.000 Nucleated RBC % (auto) 0.0 VBG pH 7.57 H VBG pCO2 35 VBG pO2 38 VBG HCO3 32 H VBG O2 Saturation 61.0 VBG Base Excess 10.2 Anion Gap 21 H Estim Creat Clear Calc 20.6 Estimated GFR 21 Random Glucose 93 Lactic Acid 1.2 Calcium 9.9 Magnesium 2.0 Total Bilirubin 1.3 H Direct Bilirubin 0.5 AST 59 H ALT 22 Alkaline Phosphatase 230 H Troponin I High Sens 134.7 H* D B-Natriuretic Peptide 9070 H Total Protein 7.4 Albumin 4.5 Influenza Type A (PCR) POSITIVE A Influenza Type B (PCR) NEGATIVE RSV RNA Qual (PCR) NEGATIVE SARS-CoV-2 RNA (RT-PCR) NEGATIVE 02/01/25 14:47 MCV MCH MCHC RDW Plt Count MPV Immature Gran % (Auto) Neut % (Auto) Lymph % (Auto) [place] % (Auto) Eos % (Auto) Baso % (Auto) Lymph # (Auto) [place] # (Auto) Eos # (Auto) Baso # (Auto) Abs Immat Gran (auto) Absolute Neuts (auto) Absolute Nucleated RBC Nucleated RBC % (auto) VBG pH VBG pCO2 VBG pO2 VBG HCO3 VBG O2 Saturation VBG Base Excess Anion Gap Estim Creat Clear Calc Estimated GFR Random Glucose Lactic Acid Calcium Magnesium Total Bilirubin Direct Bilirubin AST ALT Alkaline Phosphatase Troponin I High Sens 170.0 H* B-Natriuretic Peptide Total Protein Albumin Influenza Type A (PCR) Influenza Type B (PCR) RSV RNA Qual (PCR) SARS-CoV-2 RNA (RT-PCR) Assessment and Plan (1) Acute hypoxemic respiratory failure: Status: Resolved (2) Influenza A: Status: Acute Plan Pt is a 64-year-old male with a PMH significant for?HFrEF, ESRD on HD M/W/F (follows w/[facility]), prostate cancer with mets to the bone, anemia of chronic disease, HTN, HLD, hx of erosive gastritis, and restless leg syndrome who presents to the ED after was found to have a fever of 101 at hemodialysis this morning. Pt is admitted to the hospital for treatment and further evaluation of acute hypoxic respiratory failure in the setting of acute flu infection and fluid overload. Acute hypoxic respiratory failure in the setting of influenza type A infection Pt with fever, diarrhea, dry cough, SOB, desatting to 84% on RA in triage Flu+, CXR without superimposed pneumonia; CT of chest pending Will treat with Tamiflu, DuoNebs p.r.n., benzonatate Titrate supplemental O2 >92, wean as tolerated Monitor respiratory status ESRD on HD M/W/F Last dialyzed today Pt with increased BNP above baseline, CXR showing pulmonary edema, CT of chest with right pleural effusion Nephrology consult, follows with [facility]; may need some dialysis changes for fluid status Follow BMP Elevated troponins Initial troponin 134.7 with repeat flat at 170.0 Chronically elevated, though currently mildly higher than prior EKG nonischemic, pt asymptomatic Likely type 2 in the setting of increased demand Pt being monitored on telemetry Elevated BNP Higher than previous May need dialysis modification to optimize fluid status Restless leg syndrome Continue ropinirole HTN Continue amlodipine, hydralazine Full Code Attending:?Dr. Lagunas DVT Prophylaxis: Heparin Pt will require hospitalization for at least 2 overnight for treatment and further evaluation of acute hypoxic respiratory failure in the setting of influenza type a infection. Pt will need hospital level care for administration of supplemental oxygen, breathing treatments, close monitoring of respiratory status, as well as Nephrology consult for dialysis optimization. Quality Stroke Does the patient have a stroke diagnosis?: No VTE Prior VTE?: No VTE Risk Level:: Medical - moderate - high VTE Device Contraindication: Treatment Not Indicated VTE Drug Contraindication: N/A - Med Ordered
--- NOTE | 2025-02-01 17:23 | PHA.MEDREC ---
Pharmacy Consult ? Medication Reconciliation Pharmacy has completed the medication reconciliation. Spoke to patient at bedside, he was able to confirm his medications verbally. States Losartan and bumetanide are on non-dialysis days and that he won't be able to bring his Abiraterone in from home.
[2025-02-01] MEDS: Albuterol/Iprat 2.5/0.5MG 3 ML AMPUL.NEB INHALE (23:14)
[2025-02-01] MEDS: 0.9 % Sodium Chloride Flush 3 ML SYRINGE IVFLUSH (23:36)
[2025-02-02 03:27] VITALS: BP 144/65; PULSE 67; RESP 18; TEMP 38.1; O2SAT 93
[2025-02-02 07:25] LABS: Anion Gap 18 (12-20); Blood Urea Nitrogen 50 mg/dL (9-16); Calcium 8.6 mg/dL (8.4-10.2); Carbon Dioxide 27 mmol/L (22-29); Chloride 92 mmol/L (96-108); Creatinine Clr Calc Pharmacy 13.7; Estimated Glomerular Filt Rate 14; Potassium 4.1 mmol/L (3.3-5.1); Sodium 133 mmol/L (135-145)
[2025-02-02 07:47] VITALS: BP 141/62; PULSE 57; RESP 20; TEMP 36.3; O2SAT 92
--- NOTE | 2025-02-02 08:12 | P.PNIM_ITS ---
Subjective Subjective Date of Service: 02/02/25 Interval History: Feels better, last temp 100.6 early this morning, no sobb Physical Exam 2 Vital Signs: Vital Signs: Last Vital Signs Temp 97.3 F 02/02/25 07:47 Pulse 57 02/02/25 07:47 Resp 20 02/02/25 07:47 BP 141/62 H 02/02/25 07:47 Pulse Ox 92 02/02/25 07:47 O2 Del Method Nasal Cannula 02/02/25 03:27 O2 Flow Rate 2.5 02/02/25 07:47 BMI result Body Mass Index 23.0 Const: Other: General: AO X 3, no acute distress Resp: CTA bilateral CVS: S1,S2,RRR GI: +BS, NT, no distention Skin: No rash Neuro: motor grossly intact Psych: appropriate affect Objective Data Active Medications Acetaminophen (Acetaminophen 325 Mg Tablet) 650 mg PO Q6H PRN PRN Reason: Pain, Mild 1-3,fever,headache Last Admin: 02/02/25 03:35 Dose: 650 mg Documented By: AUSTYN Albuterol Sulfate (Albuterol Sulfate 90 Mcg 8 Gm Inhaler) 2 puff INHALE Q4H PRN PRN Reason: Wheezing Albuterol/Ipratropium (Albuterol/Iprat 2.5/0.5mg 3 Ml Ampul.Neb) 3 ml INHALE RQ4H WHILE AWAKE PRN PRN Reason: Shortness of Breath/Wheezing Last Admin: 02/01/25 23:14 Dose: 3 ml Documented By: LELO Amlodipine Besylate (Amlodipine Besylate 10 Mg Tablet) 10 mg PO DAILY [facility]; Protocol Atorvastatin Calcium (Atorvastatin Calcium 20 Mg Tablet) 20 mg PO DAILY [facility] Bumetanide (Bumetanide 1 Mg Tablet) 2 mg PO [facility]; Protocol Calcium Carbonate (Calcium Carbonate 750 Mg Tab.Chew) 750 mg PO Q4H PRN PRN Reason: Heartburn Heparin Sodium (Porcine) (Heparin Sodium,Porcine 5,000 Unit/Ml Vial) 5,000 unit SUBCUT Q8H [facility] Last Admin: 02/02/25 03:27 Dose: 5,000 unit Documented By: AUSTYN Hydralazine HCl (Hydralazine Hcl 50 Mg Tablet) 100 mg PO BID [facility]; Protocol Last Admin: 02/01/25 19:47 Dose: 100 mg Documented By: BRYAN Losartan Potassium (Losartan Potassium 50 Mg Tablet) 50 mg PO [facility]; Protocol Magnesium Hydroxide (Milk Of Magnesia 30 Ml Oral.Susp) 30 ml PO DAILY PRN PRN Reason: Constipation Melatonin (Melatonin 3 Mg Tablet) 6 mg PO BEDTIME PRN PRN Reason: Insomnia Ondansetron HCl (Ondansetron Hcl 4 Mg/2 Ml Vial) 4 mg IVPUSH Q8H PRN PRN Reason: Nausea and Vomiting Oseltamivir Phosphate (Oseltamivir Phosphate 30 Mg Capsule) 30 mg PO Q24H [facility] Stop: 02/06/25 09:01 Ropinirole HCl (Ropinirole Hcl 2 Mg Tablet) 6 mg PO TID [facility] Last Admin: 02/01/25 19:46 Dose: 6 mg Documented By: BRYAN Sevelamer Carbonate (Sevelamer Carbonate Tablet 800 Mg Tablet) 800 mg PO TIDWM [facility] Sodium Chloride (0.9 % Sodium Chloride Flush 3 Ml Syringe) [facility] Last Admin: 02/01/25 23:36 Dose: 3 ml Documented By: AUSTYN Labs 02/01/25 11:44 02/02/25 05:47 Labs: Laboratory Results - last 24 hr 02/01/25 02/01/25 02/01/25 11:44 11:50 12:16 MCV 84.4 MCH 28.1 MCHC 33.3 RDW 17.3 H Plt Count 105 L D MPV Not Reportable Immature Gran % (Auto) 0.4 Neut % (Auto) 83.4 H Lymph % (Auto) 5.2 L [place] % (Auto) 9.7 Eos % (Auto) 0.6 Baso % (Auto) 0.7 Lymph # (Auto) 0.3 L [place] # (Auto) 0.5 Eos # (Auto) 0.0 Baso # (Auto) 0.0 Abs Immat Gran (auto) 0.02 Absolute Neuts (auto) 4.5 Absolute Nucleated RBC 0.000 Nucleated RBC % (auto) 0.0 Hold Purple Top VBG pH 7.57 H VBG pCO2 35 VBG pO2 38 VBG HCO3 32 H VBG O2 Saturation 61.0 VBG Base Excess 10.2 Anion Gap 21 H Estim Creat Clear Calc 20.6 Estimated GFR 21 Random Glucose 93 Lactic Acid 1.2 Calcium 9.9 Magnesium 2.0 Total Bilirubin 1.3 H Direct Bilirubin 0.5 AST 59 H ALT 22 Alkaline Phosphatase 230 H Troponin I High Sens 134.7 H* D B-Natriuretic Peptide 9070 H Total Protein 7.4 Albumin 4.5 Influenza Type A (PCR) POSITIVE A Influenza Type B (PCR) NEGATIVE RSV RNA Qual (PCR) NEGATIVE SARS-CoV-2 RNA (RT-PCR) NEGATIVE 02/01/25 02/02/25 02/02/25 14:47 05:47 06:09 MCV MCH MCHC RDW Plt Count MPV Immature Gran % (Auto) Neut % (Auto) Lymph % (Auto) [place] % (Auto) Eos % (Auto) Baso % (Auto) Lymph # (Auto) [place] # (Auto) Eos # (Auto) Baso # (Auto) Abs Immat Gran (auto) Absolute Neuts (auto) Absolute Nucleated RBC Nucleated RBC % (auto) Hold Purple Top SEE NOTE VBG pH VBG pCO2 VBG pO2 VBG HCO3 VBG O2 Saturation VBG Base Excess Anion Gap 18 Estim Creat Clear Calc 13.7 Estimated GFR 14 Random Glucose 99 Lactic Acid Calcium 8.6 D Magnesium Total Bilirubin Direct Bilirubin AST ALT Alkaline Phosphatase Troponin I High Sens 170.0 H* B-Natriuretic Peptide Total Protein Albumin Influenza Type A (PCR) Influenza Type B (PCR) RSV RNA Qual (PCR) SARS-CoV-2 RNA (RT-PCR) Assessment and Plan (1) Influenza A: Status: Acute Plan Pt is a 64-year-old male with a PMH significant for?HFrEF, ESRD on HD M// (follows w/RTANE), prostate cancer with mets to the bone, anemia of chronic disease, HTN, HLD, hx of erosive gastritis, and restless leg syndrome who presents to the ED after was found to have a fever of 101 at hemodialysis this morning. Pt is admitted to the hospital for treatment and further evaluation of acute hypoxic respiratory failure in the setting of acute flu infection and fluid overload. Acute hypoxic respiratory failure in the setting of influenza type A infection, symptoms improve, hypoxia resolved with O2 symptomatimc treatment, renally adusted tamiflu, droplets precautions ESRD on HD M/W/F Last dialyzed 02/01 Elevated troponins Initial troponin 134.7 with repeat flat at 170.0 Chronically elevated, though currently mildly higher than prior EKG nonischemic, pt asymptomatic Likely type 2 in the setting of increased demand Pt being monitored on telemetry Elevated BNP Higher than previous May need dialysis modification to optimize fluid status Restless leg syndrome Continue ropinirole HTN Continue amlodipine, hydralazine Full Code DVT Prophylaxis: Heparin possibly dc later today Quality Stroke Does the patient have a stroke diagnosis?: No VTE Prior VTE?: No VTE Risk Level:: Medical - moderate - high VTE Device Contraindication: Treatment Not Indicated VTE Drug Contraindication: N/A - Med Ordered
[2025-02-02] MEDS: Sevelamer Carbonate Tablet 800 MG TABLET PO ×2 (08:26→12:53)
[2025-02-02] MEDS: 0.9 % Sodium Chloride Flush 3 ML SYRINGE IVFLUSH (08:28)
--- NOTE | 2025-02-02 09:02 | MHC.CM.PN ---
Addendum entered by Sulma Elizabeth 02/02/25 15:49: IMM 02/02/25Patient is discharged today home self care. He has arranged for his sister to provide transportation home. He will resume HD @ [facility]. Original Note: IMM 02/02/25 Pt from home DX Flu + Hypoxia Pt lives with his sister. He is independent with all functional mobility Home oxygen is provided by [facility] HCP is on file PCP Andie LOPEZ home self care. Patient will arrange for transportation home.
--- NOTE | 2025-02-02 10:33 | P.DS_ITS ---
DS: Providers Provider Date of Service: 02/02/25 Date of admission: 02/01/25 16:23 Date of discharge: 02/02/25 Primary care physician: CORINNE Echevarria Consults: 02/01/25 16:28 Consult to Nephrology Routine Consulting Provider: [facility] Reason for consultation: ESRD on HD MWF, last dialyzed today; increasing BNP, pulmonary edema DS: Diagnosis Discharge Diagnosis (1) Influenza A: Status: Acute DS: Summary Hospital Course Hospital Course: admission hpi Chief Complaint: Fever Pt is a 64-year-old male with a PMH significant for?HFrEF, ESRD on HD M/W/F (follows w/RTANE), prostate cancer with mets to the bone, anemia of chronic disease, HTN, HLD, hx of erosive gastritis, and restless leg syndrome who presents to the ED after was found to have a fever of 101 at hemodialysis this morning. Reports symptoms started last night with diarrhea, dry cough, and increased SOB. Has a nephew at home with similar symptoms the day before. Denies myalgias, N/V or abd pain. No chest pain/pressure or palpitations. Reports received full dialysis session today. In the ED pt was febrile up to 101, tachypneic up to 24, hypertensive as high as 160/118, and desatting as low as 84% on RA. Labs were significant for testing positive for influenza type a, creatinine 3.03, T bili 1.3, AST 59, alk-phos 230, serial troponins elevated at 134.7 with repeat flat at 170.0, and BNP 9070. CXR showed pulmonary vascular congestion, cardiomegaly, and possible small right effusion. CTA of chest pending. EKG demonstrated sinus rhythm with first- degree AV block and PVCs in bigeminy pattern. Pt was treated in the ED with Tamiflu, furosemide 40 mg IV, and acetaminophen. Pt is admitted to the hospital for treatment and further evaluation of acute hypoxic respiratory failure in the setting of acute flu infection and fluid overload. hospital course: Patient presented with hypoxia and shortness of breath and work up revealed fever, hypoxia and positive influenza. He was admited and continued on oxygen and Tamiflu and by the next day is doing rather well, no hypoxia, fever is resolved Time Attestation Discharge Coordination Time (in mins): 45 Quality: Safe Use of Opioids Does Pt have an Active Cancer Diagnosis on the Problem List?: No Quality: Stroke Does the patient have a stroke diagnosis?: No Physical Exam Vital Signs: Vital Signs: Last Vital Signs Temp 97.3 F 02/02/25 07:47 Pulse 57 02/02/25 07:47 Resp 20 02/02/25 07:47 BP 141/62 H 02/02/25 07:47 Pulse Ox 92 02/02/25 07:47 O2 Del Method Nasal Cannula 02/02/25 03:27 O2 Flow Rate 2.5 02/02/25 07:47 BMI result Body Mass Index 23.0 DS: Data Data Completed and Pending Completed studies during hospitalization [Text1]: Procedures Dilation of Bilateral Ureters, Via Natural or Artificial Opening Endoscopic (04/01/21) Drainage of Left Kidney Pelvis with Drainage Device, Percutaneous Approach (04/01/21) Drainage of Right Kidney Pelvis with Drainage Device, Percutaneous Approach (04/01/21) Excision of Prostate, Via Natural or Artificial Opening, Diagnostic (05/28/21) Fluoroscopy of Kidneys, Ureters and Bladder (04/01/21) Insertion of Infusion Device into Superior Vena Cava, Percutaneous Approach (05/28/21) Insertion of Tunneled Vascular Access Device into Chest Subcutaneous Tissue and Fascia, Percutaneous Approach (05/28/21) Performance of Urinary Filtration, Intermittent, Less than 6 Hours Per Day (11/20/24) Transfusion of Nonautologous Red Blood Cells into Peripheral Vein, Percutaneous Approach (09/08/24) Labs on day of discharge: Laboratory Results - last 24 hr 02/01/25 02/01/25 02/01/25 11:44 11:50 12:16 WBC 5.4 RBC 4.23 L D Hgb 11.9 L Hct 35.7 L MCV 84.4 MCH 28.1 MCHC 33.3 RDW 17.3 H Plt Count 105 L D MPV Not Reportable Immature Gran % (Auto) 0.4 Neut % (Auto) 83.4 H Lymph % (Auto) 5.2 L [place] % (Auto) 9.7 Eos % (Auto) 0.6 Baso % (Auto) 0.7 Lymph # (Auto) 0.3 L [place] # (Auto) 0.5 Eos # (Auto) 0.0 Baso # (Auto) 0.0 Abs Immat Gran (auto) 0.02 Absolute Neuts (auto) 4.5 Absolute Nucleated RBC 0.000 Nucleated RBC % (auto) 0.0 Hold Purple Top VBG pH 7.57 H VBG pCO2 35 VBG pO2 38 VBG HCO3 32 H VBG O2 Saturation 61.0 VBG Base Excess 10.2 Sodium 135 Potassium 3.6 Chloride 93 L Carbon Dioxide 25 Anion Gap 21 H BUN 22 H Creatinine 3.03 H Estim Creat Clear Calc 20.6 Estimated GFR 21 Random Glucose 93 Lactic Acid 1.2 Calcium 9.9 Magnesium 2.0 Total Bilirubin 1.3 H Direct Bilirubin 0.5 AST 59 H ALT 22 Alkaline Phosphatase 230 H Troponin I High Sens 134.7 H* D B-Natriuretic Peptide 9070 H Total Protein 7.4 Albumin 4.5 Influenza Type A (PCR) POSITIVE A Influenza Type B (PCR) NEGATIVE RSV RNA Qual (PCR) NEGATIVE SARS-CoV-2 RNA (RT-PCR) NEGATIVE 02/01/25 02/02/25 02/02/25 14:47 05:47 06:09 WBC RBC Hgb Hct MCV MCH MCHC RDW Plt Count MPV Immature Gran % (Auto) Neut % (Auto) Lymph % (Auto) [place] % (Auto) Eos % (Auto) Baso % (Auto) Lymph # (Auto) [place] # (Auto) Eos # (Auto) Baso # (Auto) Abs Immat Gran (auto) Absolute Neuts (auto) Absolute Nucleated RBC Nucleated RBC % (auto) Hold Purple Top SEE NOTE VBG pH VBG pCO2 VBG pO2 VBG HCO3 VBG O2 Saturation VBG Base Excess Sodium 133 L Potassium 4.1 Chloride 92 L Carbon Dioxide 27 Anion Gap 18 BUN 50 H Creatinine 4.41 H* Estim Creat Clear Calc 13.7 Estimated GFR 14 Random Glucose 99 Lactic Acid Calcium 8.6 D Magnesium Total Bilirubin Direct Bilirubin AST ALT Alkaline Phosphatase Troponin I High Sens 170.0 H* B-Natriuretic Peptide Total Protein Albumin Influenza Type A (PCR) Influenza Type B (PCR) RSV RNA Qual (PCR) SARS-CoV-2 RNA (RT-PCR) Discharge Plan Discharge Anticipated Discharge Date/Time: 02/02/25 15:41 Patient Disposition: Home, Self-Care Discharge Diagnosis: Influenza A (Flu) Referrals: Andie Whitmore FNP [Primary Care Provider, [facility]] - 1 Week Discharge Medications: New oseltamivir 30 mg Capsule 30 mg PO Q24H Qty: 3 0RF Rx Instructions: on dialysis days, take after dialysis next dose tomorrow Continued bumetanide 2 mg tablet 2 mg PO S[place]SA sevelamer carbonate 800 mg tablet 800 mg PO TIDWM PreserVision AREDS-2 250-90-40-1 mg Capsule 2 tab PO BEDTIME losartan 50 mg tablet 50 mg PO [place] ropinirole 2 mg tablet 6 mg PO TID Rx Instructions: ADDITIONAL FOR BEFORE DIAYLSIS hydralazine 50 mg tablet 100 mg PO BID albuterol sulfate [Ventolin HFA] 90 mcg/actuation HFA aerosol inhaler 2 puff inhalation Q4H PRN (Reason: wheezing) rosuvastatin 5 mg tablet 5 mg PO DAILY [place]ublia 10 % solution with applicator 1 appl topical DAILY abiraterone 250 mg tablet 1,000 mg PO BEDTIME Rx Instructions: must be taken on empty stomach, at least 1 hr before or 2 hrs after a meal/food (DME) blood pressure test kit-large Kit See Rx Instructions .ROUTE DAILY Qty: 1 Rx Instructions: As directed amlodipine 10 mg tablet 10 mg PO DAILY Discharge Orders: Discharge Order (Routine); Ordered 02/02/25 Ordered By: Douglas Lagunas Diet: Advance to usual diet Activity on Discharge: As tolerated Stand Alone Forms: Patient Portal Discharge page Print Language: Turkish Care Plan Goals: recovery from influenza Health Concerns: Influenza (Flu) Plan of Treatment: take Tamiflu as directed for mask in public for the nex 5 days of 24 hours without fever report to dialysis as usual on tuesday Assessment: see above Discharge Date/Time: 02/02/25 16:23
[2025-02-02] MEDS: Albuterol/Iprat 2.5/0.5MG 3 ML AMPUL.NEB INHALE (11:04)
[2025-02-02 11:07] VITALS: PULSE 56; RESP 16; O2SAT 96
[2025-02-02 11:56] VITALS: BP 131/58; PULSE 62; RESP 20; TEMP 36.4; O2SAT 92
[2025-02-02 15:58] VITALS: BP 121/52; PULSE 58; RESP 20; TEMP 36.4; O2SAT 20
== END 2025-02-02 16:23 | disposition home or self-care (01) | DRG 193 ==
LOC: HO.ED 11:37 → HO.EDOVER 16:43 → HO.IMC 17:32 → HO.S3 02-02 14:24 → HO.IMC 02-02 15:02
PROVIDERS: Physician Assistant; Physician Assistant Medical; Admitting Provider Student in an Organized Health Care Education/Training Program; Emergency Provider Emergency Medicine Emergency Medical Services; PCP Registered Nurse; Visit Provider Internal Medicine
DX: J10.1 Influenza due to other identified influenza virus with other respiratory manifestations (principal); J96.01 Acute respiratory failure with hypoxia; N18.6 End stage renal disease; I13.2 Hypertensive heart and chronic kidney disease with heart failure and with stage 5 chronic kidney disease, or end stage renal disease; I50.22 Chronic systolic (congestive) heart failure; Z99.2 Dependence on renal dialysis; G25.81 Restless legs syndrome; Z87.891 Personal history of nicotine dependence; Z79.899 Other long term (current) drug therapy
CPT/HCPCS: 36415; 71046; 71250; 80048; 80076; 82803; 83605; 83735; 83880; 84484; 85025; 87040; 87637; 93005; 94640; 99285; J1644; J1938

== ENCOUNTER → 2025-02-01 11:20 | Outpatient (BNV) | payer MEDICARE, MEDICAID, SELFPAY | PROVIDERS: Admitting Provider Student in an Organized Health Care Education/Training Program; Emergency Provider Emergency Medicine Emergency Medical Services; PCP Registered Nurse; Visit Provider Internal Medicine Cardiovascular Disease | DX: I44.0 Atrioventricular block, first degree (principal); I49.1 Atrial premature depolarization; I45.10 Unspecified right bundle-branch block | CPT/HCPCS: 93010 ==

== ENCOUNTER → 2025-02-01 11:21 | Outpatient (BNV) | payer MEDICARE, MEDICAID, SELFPAY | PROVIDERS: Emergency Provider Emergency Medicine Emergency Medical Services; PCP Registered Nurse; Visit Provider Radiology Diagnostic Radiology | DX: R91.1 Solitary pulmonary nodule (principal) | CPT/HCPCS: 71250 ==

== ENCOUNTER → 2025-02-01 16:23 | Outpatient (BNV) | payer MEDICARE, MEDICAID, SELFPAY | PROVIDERS: Admitting Provider Student in an Organized Health Care Education/Training Program; Emergency Provider Emergency Medicine Emergency Medical Services; PCP Registered Nurse; Visit Provider Student in an Organized Health Care Education/Training Program | DX: J10.1 Influenza due to other identified influenza virus with other respiratory manifestations (principal) | CPT/HCPCS: 99223; 99239; 99499 ==

== ENCOUNTER 2025-03-12 15:47 | Outpatient (AMB) | payer MEDICARE, MEDICAID, SELFPAY ==
--- NOTE | 2025-03-12 15:54 | MHC.OFFVIS ---
Vital Signs 03/12/25 15:55 Height 5 ft 3 in Weight 63 kg BMI 24.6 BP 144/68 H Blood Pressure Location Lt brachial Position Sitting Pulse 67 Pulse Source Pulse Oximeter Pulse Oximetry (%) 92 Oxygen Delivery Method Room Air Intake Visit Reasons: Hypoxic Resp Failure Intake Note: pt is here as a new patient, has Oxygen at home,would like a poc, has had oxygen for about 3 months and he using it at 2.5 at night and also with exertion. Web Production Assistant Required: No Allergies No Known Allergies (No Known Allergies*) Allergy (Verified 03/12/25 16:23) Medication List - Last Reconciled 03/12/25 by David Durham MD abiraterone 1,000 mg PO BEDTIME albuterol sulfate 90 mcg/actuation (Ventolin HFA) 2 puffs inhalation Q4H PRN amlodipine 10 mg PO DAILY blood pressure test kit-large As directed bumetanide 2 mg PO SUTUTHSA efinaconazole 10% (Jublia) 1 appl topical DAILY hydralazine 100 mg PO BID losartan 50 mg PO SUTUTHSA metolazone mg PO oseltamivir 30 mg PO Q24H ropinirole 6 mg PO TID ropinirole 2 mg PO BEDTIME rosuvastatin 5 mg PO DAILY sevelamer carbonate 800 mg PO TIDWM vit C,O-Al-kluwp-lutein-zeaxan 250-90-40-1 mg (PreserVision AREDS-2) 2 tabs PO BEDTIME Do you need a note to return to daycare/school/sports/work: No HPI HPI Hypoxic Resp Failure: Details: This gentleman is 64-year-old male with a PMH significant for?HFrEF, ESRD on HD M/W/F . prostate cancer with mets to the bone, anemia of chronic disease, HTN, HLD, hx of erosive gastritis, and restless leg syndrome who was treated in [facility] from 02/01 to 02/02 , for flu syndrome and viral pneumonia. On discharge home he was noted to be hypoxemic on minimal walking. He was discharged home on oxygen 2 L/minute with any physical activity and also at night. He say is that he has been using oxygen at night and only p.r.n. during the daytime at home. But he is not able to carry the portable cylinder when he goes outdoors. So he is sent over here to be evaluated for a portable oxygen concentrator( POC ) This patient has of smoking up until about 15 years ago. Also had history of alcohol abuse up until 15 years ago. Then he was able to successfully quit both smoking and drinking. Three years ago he was diagnosed to have prostate cancer with Mets in the bones. He has done fairly well on treatment with Abiraterone 1000 mg p.o. at bedtime . He states that his metastatic disease seems to be under control. Denies any pain in the legs. He does have restless legs syndrome, and is on ropinirole 6 mg t.i.d. this seems to be related to chronic renal failure. For the last 3 years patient is also diagnosed to have end-stage renal failure and is on dialysis program( 3 sessions per week) He denies any cough or wheezing, but does get short of breath on walking. His walking is slow because he has balance problem . [facility] Medical History (Updated 03/13/25 @ 08:39 by David Durham MD) COPD (chronic obstructive pulmonary disease) End stage chronic kidney disease ESRD (end stage renal disease) Anemia HTN (hypertension) Creatinine elevation Urinary retention History of upper gastrointestinal bleeding A-V fistula Fusion of lumbar spine Chronic kidney disease Urinary tract infection Enlarged prostate Kidney disease Elevated PSA Anemia Metabolic acidosis Bilateral hydronephrosis Hypocalcemia Acute anemia Acute kidney injury Surgical History History of fusion of cervical spine Hx of esophagogastroduodenoscopy History of transurethral resection of prostate S/P arteriovenous (AV) fistula creation History of hip replacement, total Social History Household Members: Family Household Members Other:: SISTER Housing: House Housing Other:: mobile home Do you presently have visiting nurse or other home services: No Alcohol intake: former Patient Tobacco Use Status: Former Tobacco user Tobacco use type: Cigarette Years Smoked: 50 e-Cigarette/Vaping Use: Former Use Substance Use Type: Marijuana service: No Current occupational status: disabled Review of Systems Const All systems reviewed & are unremarkable except as noted in HPI and below Eyes Reports no additional complaints ENT Reports no additional complaints Card Denies chest pain, Denies irregular heart rhythm and Reports leg edema Resp Reports as per HPI GI Reports no additional complaints Reports as per HPI Musc Reports back pain and Reports other (Pain in the bones especially of lower extremities) Skin/Breast Reports system reviewed and no additional complaints, except as documented Neuro Reports no additional complaints Psych Reports no additional complaints Endo Reports no additional complaints Jigar/Lymph Reports no additional complaints Physical Exam Vital Signs: Last Vital Signs Pulse 67 03/12/25 15:55 BP 144/68 H 03/12/25 15:55 Pulse Ox 92 03/12/25 15:55 Oxygen Delivery Method Room Air 03/12/25 15:55 BMI result Body Mass Index 24.6 Const General: healthy appearing, comfortable, no acute distress, alert and awake Orientation/consciousness: patient oriented x3 HEENT Head: Yes normal to inspection General nose exam: No nasal polyps present and No nasal discharge present Face and sinus: Yes sinuses nontender Mouth: oropharynx normal Throat: Yes posterior oropharynx normal Eyes General: appearance normal, both eyes and all related structures Neck Neck: Yes normal visual inspection, Yes no lymphadenopathy, Yes trachea midline and Yes no JVD Thyroid: Thyroid normal Chest Chest palpation & inspection: normal inspection of the chest, normal palpation of entire chest wall and no tenderness Resp Other: Percussion note is resonant, breath sounds are equal on both sides, slightly distant, no crepitations or wheezes are heard. Cardio Palpation: normal PMI Rate: regular rate Rhythm: regular rhythm Heart sounds: no gallops and no murmurs GI Palpation (GI): Soft to palpation, nontender, No hepatosplenomegaly present and no masses Auscultation: normal bowel sounds Back/Spine/Pelvis Thoracic/Lumbar Spine: thoracic and lumbar spine normal to inspection and thoraco-lumbar ROM limited Skin General skin exam: no rashes or lesions noted Neuro General: patient oriented x3 and no focal motor deficits Cranial nerves: Yes CN's II-XII intact bilaterally Extrem General: Yes normal to inspection, Yes no calf tenderness and Yes edema (2+ edema of the legs) Psych Appearance: grossly normal and well kempt Speech and movement: Normal speech and movement present Office Procedures 6 Minute Walk Time:: 16:30 SPO2 % at rest: 88 Pulse at rest: 66 SPO2 % during excercise: 87 Pulse during excercise: 102 SPO2 % after excercise: 96 Pulse after excercise: 89 Distance in yards walked: 90 Supplemental Oxygen: 5 l oxygen Performance Observations:: pt. tried on the [place] started with 2l desat t0 79%- hr 90, pt rested for 5 mins tried again on 4 l same distance pt desat to 86%- hr 97, rested again for 5 mins tried again on 5 l ( started with a sat of 96%- hr 89) walked same distance as previous desat to 87%- hr 102, pt. does not qualify of [place] at this time [address] - 6 Minute Walk Results Reviewed Results Reviewed: 6 minutes walk test He did desaturate very quickly. Could not maintain O2 sat above 90% even with 5 L/minute with the O2 conserving mode. He needs continuous flow for O2 supplementation. Assessment & Plan Assessment & Plan (1) ESRD (end stage renal disease): Comment: 08/03/2021 - left arm basilic vein transposition 03/23/2022 - left are fistulogram with plasty x2 03/16/2023 - left arm fistula plasty x2 (8x40 DCB) 12/19/2024 - left arm fistula plasty x3 (8x40 DCB) Code(s): N18.6 - End stage renal disease Category: Medical Plan: Patient will continue his dialysis program and follow up with the renal service, as before. (2) Multifocal pneumonia: Comment: Treated in [facility] for multifocal pneumonia( Viral ) and respiratory failure/hypoxemia . He is here today for follow-up. O2 sat okay at rest but he desaturates quickly. Could not tolerate the POC. Code(s): J18.9 - Pneumonia, unspecified organism Category: Medical Plan: He needs portable O2 with continuous flow system. We will contact DME and asked them to provide him the lightweight cylinders, for easy portability. Advised to use O2 2 L/minute at night and p.r.n. when at home during the daytime. Use O2 4 L/minute with portable unit, whenever going outdoors or doing any physical activity. (3) COPD (chronic obstructive pulmonary disease): Comment: Patient does have past history of smoking though he quit 15 years ago. There is a possibility of chronic obstructive pulmonary disease or chronic interstitial lung disease. He needs complete evaluation and is being scheduled for pulmonary function test. Code(s): J44.9 - Chronic obstructive pulmonary disease, unspecified Category: Medical Plan: Pulmonary function test is requested. Patient will be seen back in 4-6 weeks to go over the results of pulmonary function test and for any further instruction. (4) CHF (congestive heart failure): Comment: This gentleman does have history of chronic congestive heart failure, which is partly the reason for his hypoxemia He is being treated with diuretic therapy. Code(s): I50.9 - Heart failure, unspecified Category: Medical Plan: Advised to continue close follow-up with the cardiology service and adjustment of diuretic therapy. (5) Acute hypoxemic respiratory failure: Comment: Patient was treated for hypoxemic respiratory failure, secondary to multifocal pneumonia on top of possible chronic lung disease as well as congestive heart failure. Code(s): J96.01 - Acute respiratory failure with hypoxia Category: Medical Plan: Needs to use O2 2 L/minute at night, 2 L/minute at home during the daytime for any respiratory distress. And 4 L/minute with portable units. As noted above he did not qualify for O2 conserving unit, and will have to use lightweight portable cylinders. (6) Prostate cancer metastatic to bone: Comment: 05/2021 - Grade Group 5 Code(s): C61 - Malignant neoplasm of prostate; C79.51 - Secondary malignant neoplasm of bone Category: Medical Plan: History of metastatic prostate cancer. CT scan of the lungs did not show any metastatic lesions in the lungs. Plan patient advised to continue close follow-up with service. Orders: Orders AMB 6 minute walk 03/12/25 Tiffany Caicedo, RT N18.6 - End stage renal disease PFT pulmonary function test Today David Durham MD J18.9 - Pneumonia, unspecified organism, J44.9 - Chronic obstructive pulmonary disease, unspecified Coding Level of Care Code New Pt Level 4 (76186) Diagnoses ESRD (end stage renal disease) N18.6 Multifocal pneumonia J18.9 COPD (chronic obstructive pulmonary disease) J44.9 CHF (congestive heart failure) I50.9 Acute hypoxemic respiratory failure J96.01 Prostate cancer metastatic to bone C61; C79.51 CPT Codes Coding ([id number])
[2025-03-12 15:55] VITALS: BP 144/68; PULSE 67; O2SAT 92; BMI 24.6
--- OUTSIDE RECORDS SUMMARY | 2025-03-12 16:27 | XMS_ITS | Encounter Summary ---
Author Organization [employer] Address [address] [place] [address] Care Team Providers Care Disability Examiner Name Role Phone Andie Whitmore Primary Care Provider [phone] Trevor Restrepo MD Unavailable [phone] MD Unavailable [phone] Kamini Chavarria MD Unavailable [phone] Winston Bhagat DPM Unavailable [phone] Reason for Referral * Imaging (Urgent) - Closed Specialty Diagnoses / Procedures Referred By Contac t Referred To Contact Cardiology Diagnoses ESRD (end stage renal disease) ([facility]) Primary hypertension Shortness of breath Procedures Transthoracic Echo (TTE) Complete Andie Whitmore FNP [address] [place] [address] Phone: tel: fax: [address] Phone: tel: fax: Referral ID Status Reason Start Date Expiration Date V isits Requested Visits Authorized [id number] Closed Perform Procedure 06/29/2023 06/28/2024 1 1 Reason for Visit * Reason Onset Date Comments Call Back Request 06/21/2023 Encounter Details Date Type Department Care Team (Late st Contact Info) Description 06/21/2023 Telephone [facility] [address] [place] [address] Andie Whitmore, CORINNE [address] [place] [address] Call Back Request Social History Tobacco Use [...] order of the heart. Contact pt at [phone] * Telephone Encounter - Iram Pierre RN [...] just once, had an EKG, and the computer systems integrator said he was just fine. Patient has [...] having dialysis tomorrow. Please contact pt at [phone] documented in this encounter Plan of Treatment Upcoming Encounters Date Type Department Care Team (Late st Contact Info) Description 04/19/2025 2:30 PM EDT Office Visit [facility] [address] [place] [address] Andie Whitmore FNP [address] [place] [address] Scheduled Orders Name Type Priority Associated Diagnoses Order Schedule Transthoracic Echo (TTE) Complete Echocardiography Urgent ESRD (end stage renal disease) ([facility]) Primary hypertension Shortness of breath Expected: 06/29/2023 (Approximate), Expires: 06/29/2025 documented as of this encounter Visit Diagnoses Diagnosis ESRD (end stage renal disease) ([facility])- Primary End stage renal disease Primary hypertension Unspecified essential hypertension Shortness of breath documented in this encounter Additional Health Concerns Assessment Noted Time PHQ-9 Depression Total Score: 1 12/23/19 23 3:02 PM EDT documented as of this encounter Care Teams Disability Examiner Relationship Specialty Start Date End Date Andie Whitmore FNP [address] [place], [place] [address] PCP - General Family Medicine 11/04/21 Trevor Restrepo MD [address] [place] [address] Urology 07/29/24 Juvenal Cr MD [address] [facility] [address] [place] [address] Nephrology 07/29/24 Kamini Chavarria MD [address] [place] [address] [place] [address] Neurology 07/29/24 Winston Bhagat DPM [address] [place] [address] [place] [address] Podiatry 07/29/24 documented as of this encounter
--- OUTSIDE RECORDS SUMMARY | 2025-03-12 16:27 | XMS_ITS | Encounter Summary ---
Author Organization [facility] Address [address] [facility] [address] [address] Phone Care Team Providers Care Production Manufacturing Worker Name Role Phone Unavailable Primary Care Provider Unavailabl e Reason for Visit * Reason Onset Date Comments Med Refill 07/17/2021 Encounter Details Date Type Department Care Team (Late st Contact Info) Description 07/17/2021 Refill [facility] [address] [place] [address] [place] [phone] Radha Palmer [address] [facility] [address] [place] [address] Social History Tobacco Use Types [...]
--- OUTSIDE RECORDS SUMMARY | 2025-03-12 16:27 | XMS_ITS | Clinical Summary ---
Author Organization [facility] Address [address] [place] [address] Phone Care Team Providers Care Government Instructor Name Role Phone Andie Whitmore diabetologist Provider Allergies No known active allergies Medications amLODIPine (NORVASC) 10 mg tablet Take 1 tablet (10 mg total) by mouth 1 (one) time each day. Active Ventolin HFA 90 mcg/actuation inhaler Inhale 2 puffs by mouth every 4 (four) hours if needed for wheezing. 5 Active losartan (COZAAR) 50 mg tablet Take 1 tablet (50 mg total) by mouth. Take 4 times a week on non-dialysis days 5 12/05/19 26 Active metOLazone (ZAROXOLYN) 5 mg tablet Take 1 tablet (5 mg total) by mouth. Take 4 times a week on non-dialysis days 5 01/09/20 26 Active rosuvastatin (CRESTOR) 5 mg tablet Take 1 tablet (5 mg total) by mouth at bedtime. 5 Active hydrALAZINE (APRESOLINE) 100 mg tablet Take 1 tablet (100 mg total) by mouth 2 (two) times a day. 5 Active rOPINIRole (REQUIP) 2 mg tablet Take 2 tablets (4 mg total) by mouth at bedtime. Active hydrALAZINE (APRESOLINE) 50 mg tablet Take 1 tablet (50 mg total) by mouth 2 (two) times a day. 02/26/20 25 Discontinu ed(Alterna te therapy) Active Problems Problem Noted Date Diagnosed Date Hypervolemia, unspecified hypervolemia type 01/30 Anemia in chronic kidney disease 03/05/2024 ESRD (end stage renal disease) ([facility] V24, [facility] V28) 03/02/2024 Heart failure with mildly re duced ejection fraction ([facility] V24, [facility] V28) 03/02/2024 HTN (hypertension) 03/02/2024 Obstructive uropathy 03/02/2024 Onychauxis 03/02/2024 Onychomycosis 03/02/2024 Prostate cancer metastatic t o bone ([facility] V24, [facility] V28) 03/02/2024 Secondary hyperparathyroidism of renal origin ([facility] V24) 03/02/2024 Encounters Date Type Department Care Team Description 02/25/2025 6:01 AM EDT - 02/27/2025 2:22 PM EDT Hospital Encounter [facility] [address] [place] [phone] Juvenal Feng MD Bukalo, Nermina, MD Kela, Kashyap Devendrabhai, MD Hypervolemia, unspecified hypervolemia type (Primary Dx); Respiratory distress; Accelerated hypertension Discharge Disposition: Home or Self Care from [...] Sign Reading Time Taken Comments Blood Pressure 152/68 02/27/2025 1:40 PM EDT Pulse 68 02/27/2025 1:40 PM EDT Temperature 36.5 C (97.7 F) 02/27/2025 1:40 PM EDT Respiratory Rate 18 02/27/2025 1:40 PM EDT Oxygen Saturation 95% 02/27/2025 1:40 PM EDT Inhaled Oxygen Concentration - - Weight 63 kg (139 lb) 02/27/2025 4:11 AM EDT Height 160 cm (5' 3 ) 02/25/2025 6:15 AM EDT Body Mass Index 24.62 02/25/2025 6:15 AM EDT Plan of Treatment Health Maintenance Due Date Last Done Comments Pneumococcal Vaccine: 50+ Years (1 of 2 - PCV) 02/29/1980 RSV Immunization Adult Patients (1 - Risk 60-74 years 1-dose series) 2021 Colorectal Cancer Screening: Colonoscopy 02/24/2024 HIV Screening 02/24/2024 Hepatitis C Screening 02/24/2024 Medicare Annual Wellness Visit 02/24/2024 Social Influencers of Health Screening 02/24/2024 Depression Screening 08/01/2024 COVID-19 Vaccine (8 - Pfizer risk 2023- season) 2024 03/29/2024, 06/30/2023, 06/10/2022, Additional history exists DTaP,Tdap,and Td Vaccines (2 - Td or Tdap) 12/17/2024 12/17/2014 Influenza Vaccine (#1) 2025 , 04/22/2021, 05/11/2020, Additional history exists Hypertension/CHF/CAD Annual BMP Blood Test 02/27/2026 02/27/2025, 02/26/2025, 02/25/2025, Additional history exists Cholesterol Screening (Lipid Panel) 02/06/2030 02/06/2025, 10/31/2024, 08/31/2024, Additional history exists Colorectal Cancer Screening: Stool Based Tests (FOBT/FIT) Discontinued 01/22/2022 Zoster Vaccines Completed 03/13/2023, 11/15/2022 HIB Vaccines Aged Out No longer eligi [...] Procedure Name Priority Date/Time Associated Diagnosis Comments ECG ANNOTATED 2025 MAGNESIUM Routine 02/27/2025 5:16 AM EDT BASIC METABOLIC PANEL Routine 02/27/2025 5:16 AM EDT COMPLETE BLOOD COUNT Routine 02/27/2025 5:16 AM EDT PHOSPHORUS Routine 02/27/2025 5:16 AM EDT HEMODIALYSIS INPATIENT Routine 02/26/2025 10:40 AM EDT CBC WITH AUTO DIFFERENTIAL Routine 02/26/2025 5:18 AM EDT CBC AND DIFFERENTIAL Routine 02/26/2025 5:18 AM EDT BASIC METABOLIC PANEL Routine 02/26/2025 5:18 AM EDT HEMODIALYSIS INPATIENT Routine 02/25/2025 10:10 AM EDT TROPONIN I HIGH SENSITIVITY Timed 02/25/2025 7:40 AM EDT XR CHEST 1 VIEW STAT 02/25/2025 7:35 AM EDT HEPATITIS B SURFACE ANTIGEN WITH CONFIRMATION STAT Add-on 02/25/2025 6:27 AM EDT HEPATITIS B SURFACE ANTIBODY QUANTITATIVE STAT Add-on 02/25/2025 6:27 AM EDT PROCALCITONIN Add-On 02/25/2025 6:27 AM EDT TROPONIN I HIGH SENSITIVITY STAT 02/25/2025 6:27 AM EDT COMPREHENSIVE METABOLIC PANEL STAT 02/25/2025 6:27 AM EDT COMPLETE BLOOD COUNT STAT 02/25/2025 6:27 AM EDT B-TYPE NATRIURETIC PEPTIDE STAT 02/25/2025 6:27 AM EDT VENOUS BLOOD GAS STAT 02/25/2025 6:27 AM EDT ECG 12-LEAD STAT 02/25/2025 6:17 AM EDT from Last 3 Months Results * ECG-Annotated (2025) us Provider Onbase MD ECG ORDERABLES Final Result * (ABNORMAL) Complete blood count (02/27/2025 5:16 AM EDT) Only the most recent of2 resultswithin the time period is included. WBC 7.8 4.8 - 10.8 K/mcL LAB HEMETOLOGY METHOD 02/27/2025 6:43 AM [facility] RBC 3.40(L) 4.50 - 5.50 M/mcL LAB HEMETOLOGY METHOD 02/27/2025 6:43 AM [facility] Hemoglobin 9.3(L) 13.5 - 17.5 g/dL LAB HEMETOLOGY METHOD 02/27/2025 6:43 AM [facility] Hematocrit 30.3(L) 42.0 - 54.0 % LAB HEMETOLOGY METHOD 02/27/2025 6:43 AM [facility] MCV 89.4 79.0 - 98.0 FL LAB HEMETOLOGY METHOD 02/27/2025 6:43 AM [facility] MCH 27.4 27.0 - 32.0 pcg LAB HEMETOLOGY METHOD 02/27/2025 6:43 AM [facility] MCHC 30.7(L) 32.0 - 37.0 g/dL LAB HEMETOLOGY METHOD 02/27/2025 6:43 AM EDT [facility] RDW 19.1(H) 11.0 - 15.0 % LAB HEMETOLOGY METHOD 02/27/2025 6:43 AM EDT [facility] Platelets 146 130 - 400 K/mcL LAB HEMETOLOGY METHOD 02/27/2025 6:43 AM EDT [facility] MPV 12.5(H) 7.0 - 11.0 FL LAB HEMETOLOGY METHOD 02/27/2025 6:43 AM EDT [facility] NRBC 0.0 <1.0 % LAB HEMETOLOGY METHOD 02/27/2025 6:43 AM EDT [facility] NRBC Absolute 0.00 <0.10 K/mcL LAB HEMETOLOGY METHOD 02/27/2025 6:43 AM EDT [facility] Blood Venous blood specimen / Unknown Venipuncture / Unknown 02/27/2025 5:16 AM EDT 02/27/2025 6:19 AM EDT Joshua Rudd MD LAB BLOOD ORDERABLE S Final Result [facility] [address] [place] [address], * (ABNORMAL) Phosphorus (02/27/2025 5:16 AM EDT) Phosphorus 7.6(H) 2.5 - 4.5 mg/dL LAB CHEMISTRY METHOD 02/27/2025 7:42 AM EDT [facility] Comment:Results verified by repeat testing Blood Venous blood specimen / Unknown Venipuncture / Unknown 02/27/2025 5:16 AM EDT 02/27/2025 6:20 AM EDT us Joshua Rudd MD LAB BLOOD ORDERABLE S Final Result Performing Organization Address [facility]/ZIP Co de Phone Number [facility] [address] [place] [address], [place] [phone] * Magnesium (02/27/2025 5:16 AM EDT) [facility] Magnesium 2.2 1.9 - 2.6 mg/dL LAB CHEMISTRY METHOD 02/27/2025 7:14 AM EDT [facility] Blood Venous blood specimen / Unknown Venipuncture / Unknown 02/27/2025 5:16 AM EDT 02/27/2025 6:20 AM EDT us Joshua Rudd MD LAB BLOOD ORDERABLE S Final Result Performing Organization Address [facility] Co de Phone Number [facility] [address] [place] [address], [place] [phone] * (ABNORMAL) Basic metabolic panel (02/27/2025 5:16 AM EDT) Only the most recent of2 resultswithin the time period is included. [facility] Sodium 132(L) 133 - 145 mmol/L LAB CHEMISTRY METHOD 02/27/2025 7:26 AM T [facility] Potassium 4.8 3.5 - 5.5 mmol/L LAB CHEMISTRY METHOD 02/27/2025 7:26 AM EDT [facility] Chloride 94(L) 96 - 110 mmol/L LAB CHEMISTRY METHOD 02/27/2025 7:26 AM [facility] CO2 31 21 - 32 mmol/L LAB CHEMISTRY METHOD 02/27/2025 7:26 AM T [facility] Anion Gap 7 3 - 11 LAB CHEMISTRY METHOD 02/27/2025 7:26 AM [facility] Glucose 90 70 - 100 mg/dL LAB CHEMISTRY METHOD 02/27/2025 7:26 AM EDT [facility] BUN 63(H) 5 - 25 mg/dL LAB CHEMISTRY METHOD 02/27/2025 7:26 AM EDT [facility] Creatinine 5.64(H) 0.70 - 1.30 mg/dL LAB CHEMISTRY METHOD 02/27/2025 7:26 AM T [facility] eGFR 11(L) >=60 mL/min/1. 73m2 LAB CHEMISTRY METHOD 02/27/2025 7:26 AM EDT [facility] Comment:Calculation based on the Chronic Kidney Disease Epidemiology Collaboration (CKD-EPI) equation refit without adjustment for race. BUN/Creatinine Ratio 11.2 LAB CHEMISTRY METHOD 02/27/2025 7:26 AM [facility] Calcium 9.2 8.5 - 10.5 mg/dL LAB CHEMISTRY METHOD 02/27/2025 7:26 AM [facility] Blood Venous blood specimen / Unknown Venipuncture / Unknown 02/27/2025 5:16 AM EDT 02/27/2025 6:20 AM EDT Joshua Rudd MD LAB BLOOD ORDERABLE S Final Result [facility] [address] [place] [address], * (ABNORMAL) CBC auto differential (02/26/2025 5:18 AM EDT) WBC 10.2 4.8 - 10.8 K/mcL LAB HEMETOLOGY METHOD 02/26/2025 7:09 AM EDT [facility] RBC 3.30(L) 4.50 - 5.50 M/mcL LAB HEMETOLOGY METHOD 02/26/2025 7:09 AM [facility] Hemoglobin 9.2(L) 13.5 - 17.5 g/dL LAB HEMETOLOGY METHOD 02/26/2025 7:09 AM [facility] Hematocrit 29.8(L) 42.0 - 54.0 % LAB HEMETOLOGY METHOD 02/26/2025 7:09 AM [facility] MCV 89.2 79.0 - 98.0 FL LAB HEMETOLOGY METHOD 02/26/2025 7:09 AM [facility] MCH 27.5 27.0 - 32.0 pcg LAB HEMETOLOGY METHOD 02/26/2025 7:09 AM [facility] MCHC 30.9(L) 32.0 - 37.0 g/dL LAB HEMETOLOGY METHOD 02/26/2025 7:09 AM [facility] RDW 19.1(H) 11.0 - 15.0 % LAB HEMETOLOGY METHOD 02/26/2025 7:09 AM [facility] Platelets 141 130 - 400 K/mcL LAB HEMETOLOGY METHOD 02/26/2025 7:09 AM [facility] MPV 11.0 7.0 - 11.0 FL LAB HEMETOLOGY METHOD 02/26/2025 7:09 AM [facility] NRBC 0.0 <1.0 % LAB HEMETOLOGY METHOD 02/26/2025 7:09 AM [facility] NRBC Absolute 0.00 <0.10 K/mcL LAB HEMETOLOGY METHOD 02/26/2025 7:09 AM [facility] Neutrophils Relative 84.7 % LAB HEMETOLOGY METHOD 02/26/2025 7:09 AM [facility] Lymphocytes Relative 8.0 % LAB HEMETOLOGY METHOD 02/26/2025 7:09 AM [facility] Monocytes Relative 5.6 % LAB HEMETOLOGY METHOD 02/26/2025 7:09 AM EDT [facility] Eosinophils Relative 0.3 % LAB HEMETOLOGY METHOD 02/26/2025 7:09 AM [facility] Basophils Relative 0.6 % LAB HEMETOLOGY METHOD 02/26/2025 7:09 AM [facility] Immature Granulocytes Relative 0.8 % LAB HEMETOLOGY METHOD 02/26/2025 7:09 AM EDT [facility] Neutrophils Absolute 8.67(H) 1.50 - 7.00 K/mcL LAB HEMETOLOGY METHOD 02/26/2025 7:09 AM [facility] Lymphocytes Absolute 0.82(L) 1.00 - 5.00 K/mcL LAB HEMETOLOGY METHOD 02/26/2025 7:09 AM [facility] Monocytes Absolute 0.57 0.20 - 1.00 K/mcL LAB HEMETOLOGY METHOD 02/26/2025 7:09 AM [facility] Eosinophils Absolute 0.03 0.00 - 0.50 K/mcL LAB HEMETOLOGY METHOD 02/26/2025 7:09 AM [facility] Basophils Absolute 0.06 0.00 - 0.20 K/mcL LAB HEMETOLOGY METHOD 02/26/2025 7:09 AM [facility] Immature Granulocytes Absolute 0.08(H) 0.00 - 0.03 K/mcL LAB HEMETOLOGY METHOD 02/26/2025 7:09 AM [facility] Blood Venous blood specimen / Unknown Venipuncture / Unknown 02/26/2025 5:18 AM EDT 02/26/2025 6:39 AM EDT us Cassi SHELDON LAB BLOOD ORDERABLES Final Result [facility] [address] [place] [address], * (ABNORMAL) Troponin I high sensitivity (NOW and then in 1 hour) (02/25/2025 7:40 AM EDT) Only the most recent of2 resultswithin the time period is included. High Sensitivity Troponin I 93(H) <=79 ng/L LAB CHEMISTRY METHOD 02/25/2025 8:22 AM EDT [facility] Blood Venous blood specimen / Unknown Venipuncture / Unknown 02/25/2025 7:40 AM EDT 02/25/2025 7:58 AM EDT Narrative [facility] - 02/25/2025 8:22 AM EDT High levels of biotin in samples may falsely decrease hsTroponin values. Use caution when interpreting hsTroponin results in patients taking biotin who exhibit renal impairment (eGFR <60) or in patients taking more than 20 mg/day of biotin. us Bernie Bergeron MD LAB BLOOD ORDERABLES Final Res ult [facility] [address] [place] [address], * XR Chest 1 View (02/25/2025 7:35 AM EDT) Anatomical Region Laterality Modality Body Radiographic Debra ging 02/25/2025 8:09 AM EDT Impressions 02/25/2025 8:09 AM EDT FINDINGS/IMPRESSION: Pulmonary vascular congestion with cardiac silhouette enlargement. Small right pleural effusion with adjacent atelectasis. No pneumothorax. Degenerative changes seen throughout the bones. -------- FINAL REPORT -------- Dictated By: JOE MARTINEZ Dictated Date: 02/25/2025 08:09 ET Assigned Physician: JOE MARTINEZ Reviewed and Electronically Signed By: JOE MARTINEZ Signed Date: 02/25/2025 08:09 ET Workstation ID: [id number] Transcribed By: Self Edit Transcribed Date: 02/25/2025 08:09 ET Narrative 02/25/2025 8:09 AM EDT XR CHEST 1 VIEW INDICATION: Shortness of breath TECHNIQUE: XR CHEST 1 VIEW COMPARISON: No priors available. Procedure Note Joe Martinez MD - 02/25/2025 XR CHEST 1 VIEW INDICATION: Shortness of breath TECHNIQUE: XR CHEST 1 VIEW COMPARISON: No priors available. IMPRESSION: FINDINGS/IMPRESSION: Pulmonary vascular congestion with cardiac silhouetteenlargement. Small right pleural effusion with adjacent atelectasis. Nopneumothorax. Degenerative changes seen throughout the bones. -------- FINAL REPORT -------- Dictated By: JOE MARTINEZ Dictated Date: 02/25/2025 08:09 ET Assigned Physician: JOE MARTINEZ Reviewed and Electronically Signed By: JOE MARTINEZ Signed Date: 02/25/2025 08:09 ET Workstation ID: [id number] Transcribed By: Self Edit Transcribed Date: 02/25/2025 08:09 ET us Bernie Bergeron MD IMG XR PROCEDURES Final Result * Hepatitis B surface antigen with reflex to confirmation (02/25/2025 6:27 AM EDT) Hepatitis B Surface Ag Negative Negative LAB CHEMISTRY METHOD 02/25/2025 5:13 PM EDT [facility] Blood Venous blood specimen / Unknown Venipuncture / Unknown 02/25/2025 6:27 AM EDT 02/25/2025 6:32 AM EDT Narrative [facility] - 02/25/2025 5:13 PM EDT Over the counter supplements containing high doses of biotin may interfere with this assay. If interference is suspected, patients shoud be retested after refraining from biotin supplements for 72 hours. us Linn Miller MD LAB BLOOD ORDERABLES Final Res ult [facility] [address] [place] [address], [place] [phone] * (ABNORMAL) Procalcitonin (02/25/2025 6:27 AM EDT) Procalcitonin 1.72(H) <=0.16 ng/mL LAB CHEMISTRY METHOD 02/25/2025 1:44 PM EDT [facility] Blood Venous blood specimen / Unknown Venipuncture / Unknown 02/25/2025 6:27 AM EDT 02/25/2025 6:32 AM EDT Narrative [facility] - 02/25/2025 1:44 PM EDT Procalcitonin > 2.00 ng/ml: Procalcitonin Levels above 2.00 ng/ml, on the first day of ICU admission represent a high risk for progression to severe sepsis and/or septic shock. Procalcitonin < 0.50 ng/ml: Procalcitonin levels below 0.50 ng/ml on the first day of ICU admission represent a low risk for progression to severe sepsis and/or septic shock. Concentrations <0.5 ng/mL do not exclude an infection, on account of local ized infections (without systemic signs) which can be associated with such low concentrations, or a systemic infection in its initial stages (<6 hours). Furthermore, increased procalcitonin can occur without infection. PCT concentrations between 0.5 and 2.0 ng/mL should be interpreted taking into account the patient's history. It is recommended to retest PCT within 6-24 hours if any concentrations <2.0 ng/mL are obtained. Cassi SHELDON LAB BLOOD ORDERABLES Final Result [facility] [address] [place] [address], * Hepatitis B surface antibody quantitative (02/25/2025 6:27 AM EDT) Hepatitis B Surface Ab Negative Negative LAB CHEMISTRY METHOD 02/25/2025 5:27 PM EDT [facility] Hepatitis B Surface Ab Quantitative <3.1 mIU/mL LAB CHEMISTRY METHOD 02/25/2025 5:27 PM EDT [facility] Blood Venous blood specimen / Unknown Venipuncture / Unknown 02/25/2025 6:27 AM EDT 02/25/2025 6:32 AM EDT Narrative [facility] - 02/25/2025 5:27 PM EDT >=10 mIU/mL is considered to be consistent with immunity. Linn Miller MD LAB BLOOD ORDERABLES Final Res ult Performing Organization Address [facility]/ZIP Co de Phone Number [facility] [address] [place] [address], [place] [phone] * (ABNORMAL) BNP (02/25/2025 6:27 AM EDT) BNP 2,343(H) <=100 pcg/mL LAB CHEMISTRY METHOD 02/25/2025 7:06 AM EDT [facility] Blood Venous blood specimen / Unknown Venipuncture / Unknown 02/25/2025 6:27 AM EDT 02/25/2025 6:32 AM EDT Bernie Bergeron MD LAB BLOOD ORDERABLES Final Res ult Performing Organization Address [facility]/ZIP Co de Phone Number [facility] [address] [place] [address], [place] [phone] * (ABNORMAL) Blood gas, venous (02/25/2025 6:27 AM EDT) pH, Rober 7.42 7.32 - 7.42 pH 02/25/2025 6:35 AM EDT [facility] pCO2, Rober 39(L) 41 - 51 mmHg 02/25/2025 6:35 AM EDT [facility] pO2, Rober 51(H) 25 - 40 mmHg 02/25/2025 6:[facility] HCO3, Venous 25.2 22.0 - 26.0 mmol/L 02/25/2025 6:35 AM T [facility] O2 Sat, Rober 82.8 % 02/25/2025 6:35 AM [facility] Base Excess, Rober 0.8 -2.0 - 2.0 mmol/L 02/25/2025 6:35 AM T [facility] Blood Venous blood specimen / Unknown Venipuncture / Unknown 02/25/2025 6:27 AM EDT 02/25/2025 6:32 AM EDT us Bernie Bergeron MD LAB BLOOD ORDERABLES Final Res ult [facility] [address] [place] [address], * (ABNORMAL) Comprehensive metabolic panel (02/25/2025 6:27 AM EDT) Sodium 133 133 - 145 mmol/L LAB CHEMISTRY METHOD 02/25/2025 7:16 AM [facility] Potassium 5.7(H) 3.5 - 5.5 mmol/L LAB CHEMISTRY METHOD 02/25/2025 7:16 AM [facility] Chloride 98 96 - 110 mmol/L LAB CHEMISTRY METHOD 02/25/2025 7:16 AM [facility] CO2 25 21 - 32 mmol/L LAB CHEMISTRY METHOD 02/25/2025 7:16 AM [facility] Anion Gap 10 3 - 11 LAB CHEMISTRY METHOD 02/25/2025 7:16 AM [facility] Glucose 133(H) 70 - 100 mg/dL LAB CHEMISTRY METHOD 02/25/2025 7:16 AM [facility] BUN 86(H) 5 - 25 mg/dL LAB CHEMISTRY METHOD 02/25/2025 7:16 AM [facility] Comment:Results verified by repeat testing Creatinine 6.44(H) 0.70 - 1.30 mg/dL LAB CHEMISTRY METHOD 02/25/2025 7:16 AM [facility] Comment:Results verified by repeat testing eGFR 9(L) >=60 mL/min/1. 73m2 LAB CHEMISTRY METHOD 02/25/2025 7:16 AM [facility] Comment:Calculation based on the Chronic Kidney Disease Epidemiology Collaboration (CKD-EPI) equation refit without adjustment for race. BUN/Creatinine Ratio 13.4 LAB CHEMISTRY METHOD 02/25/2025 7:16 AM [facility] Calcium 10.0 8.5 - 10.5 mg/dL LAB CHEMISTRY METHOD 02/25/2025 7:16 AM [facility] AST (SGOT) 26 10 - 42 unit/L LAB CHEMISTRY METHOD 02/25/2025 7:16 AM [facility] ALT (SGPT) 27 10 - 60 unit/L LAB CHEMISTRY METHOD 02/25/2025 7:16 AM [facility] Alkaline Phosphatase 263(H) 42 - 121 unit/L LAB CHEMISTRY METHOD 02/25/2025 7:16 AM [facility] Total Protein 6.7 6.0 - 8.0 g/dL LAB CHEMISTRY METHOD 02/25/2025 7:16 AM [facility] Albumin 3.5 3.2 - 5.0 g/dL LAB CHEMISTRY METHOD 02/25/2025 7:16 AM [facility] Total Bilirubin 1.1 0.0 - 1.4 mg/dL LAB CHEMISTRY METHOD 02/25/2025 7:16 AM [facility] Blood Venous blood specimen / Unknown Venipuncture / Unknown 02/25/2025 6:27 AM EDT 02/25/2025 6:32 AM EDT Bernie Bergeron MD LAB BLOOD ORDERABLES Final Res ult [facility] [address] [place] [address], * ECG 12 lead (02/25/2025 6:17 AM EDT) Ventricular Rate ECG 83 BPM GEMUSE Atrial Rate 83 BPM GEMUSE P-R Interval 158 ms GEMUSE QRS Duration 86 ms GEMUSE Q-T Interval 378 ms GEMUSE QTc 444 ms GEMUSE P Wave [place] 70 degrees GEMUSE R [place] -57 degrees GEMUSE T [place] 90 degrees GEMUSE ECG Interpretation Normal sinus rhythm Possible Left atrial enlargement Left axis deviation Abnormal ECG No previous ECGs available Confirmed by MAURICIO EDWARDS ([id number]) on 02/25/2025 9:12:07 PM GEMUSE 02/25/2025 6:17 AM EDT 02/25/2025 9:12 PM EDT Bernie Bergeron MD ECG ORDERABLES Final Result Performing Organization Address City/[facility]/ZIP Co de Phone Number GEMUSE from Last 3 Months Insurance MEDICA[place] - [place] MEDICARE Advance Directives Documents on File Type Date Recorded Patient Balance Bridge Inspector Expl anation Advance Directives and Living Will 02/25/2025 2:59 PM [facility] * Full Code - Default (Latest Code Status on File) Date Activated Date Inactivated Comments 02/25/2025 10:11 AM 02/27/2025 4:23 PM This is ord er is used when code status has not been discussed with the patient, or code status is otherwise unknown/unconfirmed To update the patient's code status, place a code status order. Do not modify or discontinue any currently active code status orders. Healthcare Agents on File Name Relationship Healthcare Agent Relationshi p Communication Kayleenlita Packer [facility] Care Agent Care Teams Government Instructor Relationship Specialty Start Date End Date Andie Whitmore RN [address] [place] [id number] PCP - General 12/14/23
[2025-03-12 16:50] VITALS: PULSE 66; O2SAT 88
== END 2025-03-12 17:00 ==
LOC: HO.HPS 15:47
PROVIDERS: PCP Registered Nurse; Referring Provider Registered Nurse; Visit Provider Internal Medicine
DX: J18.9 Pneumonia, unspecified organism (principal)
CPT/HCPCS: 94618

== ENCOUNTER → 2025-03-12 15:47 | Outpatient (BNVA) | payer MEDICARE, MEDICAID, SELFPAY | PROVIDERS: PCP Registered Nurse; Referring Provider Registered Nurse; Visit Provider Internal Medicine | DX: J18.9 Pneumonia, unspecified organism (principal); J96.01 Acute respiratory failure with hypoxia; J44.9 Chronic obstructive pulmonary disease, unspecified; C61 Malignant neoplasm of prostate; C79.51 Secondary malignant neoplasm of bone; N18.6 End stage renal disease; I50.9 Heart failure, unspecified | CPT/HCPCS: 94618; 99202 ==

== ENCOUNTER 2025-04-18 10:12 | Outpatient (REF) | payer MEDICARE, MEDICAID, SELFPAY ==
--- OUTSIDE RECORDS SUMMARY | 2025-04-18 12:12 | XMS_ITS | Encounter Summary ---
Author Organization [facility] Address [address] [facility] [address] [address] Phone Care Team Providers Care Practice Managers Name Role Phone Unavailable Primary Care Provider Unavailabl e Reason for Visit * Reason Onset Date Comments Med Refill 07/17/2021 Encounter Details Date Type Department Care Team (Late st Contact Info) Description 07/17/2021 Refill [facility] [address] [place] [address] [place] [id number] Radha Palmer [address] [facility] [address] [place] [address] Social History Tobacco Use Types [...]
--- OUTSIDE RECORDS SUMMARY | 2025-04-18 12:13 | XMS_ITS | Encounter Summary ---
Author Organization [facility] Address [address] [address] Phone Care Team Providers Care Duster Tender Name Role Phone Unavailable Primary Care Provider Unavailabl e Encounter Details Date Type Department Care Team (Late st Contact Info) Description 03/01/2025 TCM in Dialysis Clinic [facility] [address] [address] [place] Ortega MD [address] [address] Social History Tobacco Use Types Packs/Day Years Used Date Smoking Tobacco: Former Comments:Smoking History Inf o:Every day Sex and Gender Information Value Date Recorded Sex Assigned at Not on file Legal Sex Male 4:53 PM EST Gender Identity Not on file Sexual Orientation Not on file documented as of this encounter Progress Notes * [place] Ortega MD - 03/01/2025 12:00 AM EDT Patient: Darwin Stahl : 1960 Note Type: Dialysis TCM Service Date: 03/01/2025 The patient was seen for a [id number] visit as part of Transitional Care Management services. Attending Comic Book Writer: CLINTON ORTEGA Dialysis Location: [facility] Schedule: Shift: 1 INTERACTIVE CONTACT Contact with the patient or caregiver was made or attempted within 2 business days of discharge - details in the medical record. HOSPITALIZATION SUMMARY Patient transitioned from: Hospital Patient transitioned to: Home Admit Date: 02/25/2025 Discharge Date: 2025 Discharged info reviewed: Followed-up on or reviewed need for pending tests/treatments as noted PHYSICAL EXAM Exam not performed. DIALYSIS PRESCRIPTION Dry weight during admission reviewed - EDW decreased. VISIT DIAGNOSES CPT Code 86735 - High complexity, seen 8-14 days post discharge or moderate complexity, seen [id number] days of discharge. N18.6 End stage renal disease Signed by: CLINTON ORTEGA MD on 03/04/2025 at 04:31:25 AM Transcribed by: CLINTON ORTEGA MD on 03/04/2025 at 04:31:25 AM documented in this encounter Plan of Treatment Not on file documented as of this encounter Visit Diagnoses Not on filedocumented in this encounter
--- OUTSIDE RECORDS SUMMARY | 2025-04-18 12:13 | XMS_ITS | Encounter Summary ---
Author Organization [employer] Address [address] [place] [address] Care Team Providers Care Abatement Worker Name Role Phone Andie Whitmore Primary Care Provider [phone] Trevor Restrepo MD Unavailable [phone] MD Unavailable [phone] Kamini Chavarria MD Unavailable Winston Bhagat DPM Unavailable [phone] Reason for Visit * Reason Onset Date Comments Medication Question 02/29/2024 Encounter Details Date Type Department Care Team (Late st Contact Info) Description 02/29/2024 Telephone [facility] [address] [place] [address] Andie Whitmore FNP [address], [place] [phone] Medication Question Social History Tobacco Use Types [...] that was discussed in 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 documented in this encounter Plan of Treatment Upcoming Encounters Date Type Department Care Team (Late st Contact Info) Description 04/19/2025 2:30 PM EDT Office Visit [facility] [address] [place] [address] Andie Whitmore FNP [address] [place] [address] documented as of this encounter Visit Diagnoses Not on filedocumented in this encounter Additional Health Concerns Assessment Noted Time PHQ-9 Depression Total Score: 1 12/23/19 23 3:02 PM EDT documented as of this encounter Care Teams Abatement Worker Relationship Specialty Start Date End Date Andie Whitmore FNP [address] [place] [address] PCP - General Family Medicine 11/04/21 Trevor Restrepo MD [address] [place] [address] Urology 07/29/24 Juvenal Cr MD [address] [place] [address] [address] [place] [address] Nephrology 07/29/24 Kamini Chavarria MD [address] [place] [address] Dr [address]ara [address] [facility] [place] [address] Neurology 07/29/24 Winston Bhagat DPM [address] [place] [address] Dr Lara [address] [facility] [place] [address] Podiatry 07/29/24 documented as of this encounter
--- OUTSIDE RECORDS SUMMARY | 2025-04-18 12:13 | XMS_ITS | Clinical Summary ---
Author Organization [employer] Address [address] [facility] [address] [place] [address] Care Team Providers Care Master Certified Rv Technician Name Role Phone Andie Whitmore Primary Care Provider [phone] Trevor Restrepo MD Unavailable Juvenal Cr MD Unavailable [phone] Kamini Chavarria MD Unavailable Winston Bhagat DPM Unavailable [phone] Allergies No known active allergies Medications abiraterone [...] day. Takes with abiraterone 09/08/19 23 Active bumetanide (Bumex) 2 MG tabletIndications: Heart failure with mildly reduced ejection fraction (HFmrEF) (CMS/HCC) 2 mg 2 times daily. On Non-dialysis Days 11/23/19 24 Active Ventolin HFA 108 (90 Base) [...] mouth 2 times daily. 05/21/20 24 Active Blood Pressure kit Use to check blood pressure once daily (1 hour after taking medication for blood pressure) and if symptomatic 1 kit 12/22/19 25 Active rosuvastatin (Crestor) 5 MG tabletIndications: Other hyperlipidemia TAKE 1 TABLET(5 MG) BY MOUTH AT BEDTIME FOR CHOLESTEROL 90 tablet 3 12/27/19 25 Active Efinaconazole (Jublia) 10 % solutionIndication s:Onychauxis,Onych omycosis APPLY TOPICALLY TO THE COMPLETELY AFFECTED NAIL DAILY 8 mL 3 12/27/19 25 Active Active Problems Problem Noted Date Diagnosed [...] Following with Podiatry - Dr. Bhagat at [facility] Jun 2024: Debridement of toenails 6-10, with plan to cont topical Jublia. RTC 3 months. Healthcare maintenance 12/12/2023 Overview (12/12/2023): Optometry: CEE 11/10/23 (Dr. Mohr). Noted trace macular edema, follow up in 3 months PSA: hx prostate CA, following with [facility] Heart failure with mildly re duced [...] Exacerbation w/ Hospitalization 08/04 - 08/07/23 at [facility] Exacerbation w/ Hospitalization 11/20-11/25/24 at [facility] ESRD on HD: communication with Dr. Cr [...] Assessment & Plan (08/01/2023 4:57 PM EST): Ddx: fluid volume overload secondary to CHF vs ESRD; COPD; viral syndrome, other Echo and CXR from 07/19/23 suggestive of CHF Mild wheezing on exam improved with duoneb, c/w asthma/COPD/resp condition Denies EVARISTO or URI symptoms Advised pt on concern for hypoxemia and recommendations for ED eval following appt if unable to keep O2 sat > 94% on RA. Pt declines AMA. O2 improved following rest and duoneb tx. Encouraged to cont monitoring at home, strict ED precautions PCP called Cardiology office, scheduled for eval with Dr. Zhang on 08/04/23. Labs: BMP, BNP Anemia in chronic kidney disease 02/18/2023 Obstructive uropathy 02/18/2023 Overview (12/12/2023): Following with Dr. Restrepo ([facility]) Hx of bilateral stent placement ESRD (end stage renal disease) 11/05/2021 Assessment & Plan (04/27/2023 2:16 PM EDT): -Hemodialysis MWF at [address] [place] [address] Dialysis (first shift) -Access: Left arm basilic vein transposition performed on 08/03/2021. -Mar 2023: fistulagram performed, [facility] [place]. Blackburn. Has been working well since Assessment & Plan (12/22/2022 8:12 PM EDT): -Hemodialysis MWF at [address] [place] [address] Dialysis -Access: Left arm basilic vein transposition performed on 08/03/2021. Have started to access fistula at dialysis -Left AVF w/ +thrill/+bruit Prostate cancer metastatic to bone 11/05/2021 Assessment & Plan (07/29/2024 10:41 PM EST): Crossroads score ranging from 7 to 9. 10/05/21 cystoscopy with bilateral ureteral stent exchange performed by [facility] Continue to follow with [facility] - Dr. Restrepo Continue to follow with [facility]c Previously on Bicalutamide 50mg PO daily through Urology, currently taking Abiraterone 01/24/23: cystoscopy with bilateral stent exchange November 2023: Bone scan stable, no progression Target 3 years hormone therapy then reduction to intermittent anti-androgen Apr 2024: DXA normal Assessment & Plan (04/27/2023 2:17 PM EDT): Flor score ranging from 7 to 9. 10/05/21 cystoscopy with bilateral ureteral stent exchange performed by [facility] Continue to follow with [facility] - Dr. Restrepo Continue to follow with [facility] Previously on Bicalutamide 50mg PO daily through Urology, currently taking Abiraterone 01/24/23: cystoscopy with bilateral stent exchange Assessment & Plan (12/22/2022 8:13 PM EDT): Crossroads score ranging from 7 to 9. 10/05/21 cystoscopy with bilateral ureteral stent exchange performed by [facility] Continue to follow with [facility] - Dr. Restrepo Continue to follow with [facility] Previously on Bicalutamide 50mg PO daily through Urology, currently taking Abiraterone Plan for stent exchange approx December 2022 [...] Assessment & Plan (09/03/2023 1:20 PM EST): Elevated in office and at HD Denies chest pain, GRANADOS, blurry vision, dizziness, N/V/D Current med regimen: Amlodipine 10mg daily Hydralazine 25mg TID (although pt taking 50mg in the morning and 25mg at bedtime) -Lifestyle interventions and ED precautions reviewed -Plan: PCP to communicate with the office of Dr. Zhang for collaboration regarding dose adjustments. May consider increased dose to 50mg BID. Assessment & Plan (08/01/2023 4:51 PM EST): Elevated in office, well controlled at HD per pt Denies chest pain, GRANADOS, blurry vision, dizziness, N/V/D Continue with current med regimen: Amlodipine 10mg daily Hydralazine 10mg. Currently taking once daily, initially prescribed BID (renal dose adjustment) -Lifestyle interventions and ED precautions reviewed -BP monitor sent to the pharmacy to record home readings Assessment & Plan (06/26/2023 8:18 PM EST): Elevated in office, well controlled at HD per pt Denies chest pain, GRANADOS, blurry vision, dizziness, N/V/D Continue with current med regimen: Amlodipine 10mg daily Hydralazine 10mg. Currently taking once daily, initially prescribed BID (renal dose adjustment) -Lifestyle interventions and ED precautions reviewed -BP monitor sent to the pharmacy to record home readings Assessment & Plan (04/27/2023 2:14 PM EDT): Elevated in office, well controlled at HD per pt Denies chest pain, GRANADOS, blurry vision, SOB, dizziness, N/V/D Continue with current med regimen: Amlodipine 10mg daily Hydralazine 10mg. Currently taking once daily, initially prescribed BID (renal dose adjustment) Plan: monitor afternoon/evening blood pressure over the next 2 weeks. If readings elevated, plan to restart BID dosing. -Lifestyle interventions and ED precautions reviewed Assessment & Plan (12/22/2022 8:11 PM EDT): Well controlled in office Denies chest pain, GRANADOS, blurry vision, SOB, dizziness, N/V/D Continue with current med regimen: Amlodipine 10mg daily Hydralazine 10mg BID (renal dose adjustment) -Plan [...] Encounters Date Type Department Care Team Description 04/12/[address] [facility] [address] [place] [phone] Andie Whitmore FNP Pre-visit Planning ([facility] screening completed on 02/11/25 ) 03/04/2025 Telephone [facility] [address] [place] [address] Andie Whitmore FNP Hospital Follow-up [address] [facility] [address] [place] [phone] Andie Whitmore FNP Transition Of Care (Tcm) (HDF Unscheduled) 02/26/2025 Orders Only [facility] [address] [place] [address] Moo Lugo MD 02/18/2025 Telephone [facility] [address] [place] [address] Andie Whitmore FNP No Show 02/11/[address] [facility] [address] [place] [phone] Andie Whitmore FNP Pre-visit Planning (SDOH screening negative and Tobacco screening negative) 02/05/2025 2:15 PM EDT Office Visit [facility] [address] [place] [address] James Berkowitz MD Hypoxemia (Primary Dx) 02/05/2025 Travel 02/01/2025 Orders Only GENERIC EXTERNAL DATA DEPARTMENT Provider, Generic External Data from Last 3 Months Immunizations Immunization Administration [...] housing situation today? I have marvin morales 02/11/[address] you li ve. Do you have problems with any of the following? None of the above 02/11/2025 Food Insecurity Answer Date Recorded Within the past 12 months, y ou worried that your food would run out before you got money to buy more: Never True 02/11/2025 Within the past 12 months,th e food you bought just didn't last and you didn't have enough money to get more: Never True Transportation Answer Date Recorded In the past 12 months, has l ack of transportation kept you from medical appts, meetings, work or from getting things needed for daily living? No 02/11/2025 Utilities Answer Date Recorded In the past 12 months, has t he electric, gas, oil or water company threatened to shut off services in your home? No 02/11/2025 Depression Answer Date Recorded Patient Health Questionnaire-2 Score 0 12/22/2022 Internet Access Answer Date Recorded Internet Access Q1 Yes 02/11/2025 Internet Access Q2 Not on file 02/11/2025 Sex and Gender Information Value Date Recorded Sex Assigned at Male 05/31/2022 10:39 AM EDT Legal Sex Male 10:39 AM EDT Gender Identity Male 05/31/2022 10:39 AM EDT Sexual Orientation Straight 05/31/2022 10 :39 AM EDT Last Filed Vital Signs Vital Sign Reading Time Taken Comments Blood Pressure 146/78 02/05/2025 2:38 PM EDT Pulse 89 02/05/2025 2:38 PM EDT Temperature 37.1 C (98.7 F) 02/05/2025 2:38 PM EDT Respiratory Rate 20 02/05/2025 2:38 PM EDT Oxygen Saturation 89% 02/05/2025 2:38 PM EDT Inhaled Oxygen Concentration - - Weight 59.9 kg (132 lb) 02/05/2025 2:38 PM EDT Height 160 cm (5' 3 ) 02/05/2025 2:38 PM EDT Body Mass Index 23.38 02/05/2025 2:38 PM EDT Plan of Treatment Upcoming Encounters Date Type Department Care Team (Late st Contact Info) Description 04/19/2025 2:30 PM EDT Office Visit [facility] [address] [place] [address] Andie Whitmore, CORINNE [address] [place] [address] Health Maintenance Due Date Last Done Comments CT Colonography 1960 Colonoscopy 1961 Colorectal Cancer Screening 1960 FIT DNA/Cologuard 1961 FIT 1960 FOBT 1960 HIV Screening 1960 Sigmoidoscopy 1960 Disability Screening 1961 Alcohol/Substance Use Screening 1973 Hepatitis C Screening 1979 Pneumococcal Vaccine: 50+ Years (1 of 2 - PCV) 02/29/1980 Zoster Vaccines (1 of 2) 2011 RSV Patients and Patients Aged 60 years or older (1 - Risk 60-74 years 1-dose series) 2021 Depression Screening 12/23/2023 12/22/2022, 12/23/19 23 DTaP/Tdap/Td Vaccines (2 - Td or Tdap) 12/17/2024 12/17/2014 COVID-19 Vaccine ( season) 2025 12/20/2021, 06/17/2021, 06/07/2021, Additional history exists Influenza Vaccine (#1) 2025 , 05/11/2020, 07/24/2019 Tobacco Screening 11/30/2025 11/30/2024 SDOH Screening 02/11/2026 02/11/2025 Lipid Panel 07/26/2029 07/26/2024, 12/13/2023 HIB Vaccines [...] Name Priority Date/Time Associated Diagnosis Comments ECG 12-LEAD Routine 02/25/2025 12:[address] CHEST WO CONTRAST Routine 02/02/2025 4:08 PM EDT HIGH SENSITIVITY TROPONIN I Routine 02/01/2025 2:47 PM EDT LACTIC ACID Routine 02/01/2025 12:16 PM EDT XR CHEST 2 VIEWS Routine 02/01/2025 12:1 3 PM EDT VENOUS BLOOD GAS Routine 02/01/2025 11:5 0 AM EDT B TYPE NATRIURETIC PEPTIDE (BNP) Routine 02/01/2025 11:44 AM EDT HIGH SENSITIVITY TROPONIN I Routine 02/01/2025 11:44 AM EDT MAGNESIUM Routine 02/01/2025 11:44 AM EDT BASIC METABOLIC PANEL Routine 02/01/2025 11:44 AM EDT HEPATIC FUNCTION PANEL Routine 02/01/2025 11:44 AM EDT CBC WITH AUTO DIFFERENTIAL Routine 02/01/2025 11:44 AM EDT SARS COV2/INFLUENZA A/B AND RSV RNA QL NAAT Routine 02/01/2025 11:44 AM EDT LIPID PANEL, STANDARD Routine 07/26/2024 11:25 AM EST Hyperlipidemia, unspecified hyperlipidemia type from Last 3 Months or Most Recently Relevant to Health Maintenance Results * ECG 12 lead (02/25/2025 12:35 PM EDT) us Historical Provider ECG ORDERABLES Final Res ult * CT Chest w/o Contrast (02/02/2025 4:08 PM EDT) Anatomical Region Laterality Modality Body, Chest Computed Tomogra phy 02/02/2025 4:08 PM EDT Narrative 02/02/2025 4:11 PM EDT [address] [address] [address] Scan Report Signed Patient: Darwin Stahl MR#: [id number] : 1960 Acct:[id number] Age/Sex: 64 / M ADM Date: 02/01/25 Loc: [facility] 444-[address]: Douglas Lagunas MD Ordering Physician: Zuhair Batista Date of Service: 02/01/25 Procedure(s): CT chest wo IV con Accession Number(s): [id number] cc: Zuhair Batista; Andie Whitmore [facility] Report Number: [id number]: Total DLP = 206.00 mGy-cm CLINICAL HISTORY: Pneumonia. Hypoxic? coughing CT chest without contrast Comparison: CR - XR CHEST 2V - 02/01/25 12:[address]/SR - CT ANGIO CHEST PE PROTOCOL - 11/20/24 21:[address]/SR - CT CHEST WO IV CON - 09/08/24 11:21 EST Findings: Heart is enlarged with small pericardial effusion. Atherosclerosis calcification of the coronary artery. The visualized thyroid and mediastinum are unremarkable. Small to moderate right pleural effusion. There is opacity of the bilateral lower lobe and lingula. Interseptal thickening of the lung parenchyma. 3 mm pulmonary nodule of the right middle lobe series 4, image 93. The upper abdomen is unremarkable. There is unchanged sclerosis of the T11 vertebral body. IMPRESSION: Small to moderate right pleural effusion. Opacity of the bilateral lower lobe and lingula could represent atelectasis or infection. Small pericardial effusion. Small pulmonary nodule. CHF exacerbation. Sclerosis of the T11 vertebral body. Bony metastasis is in the differential diagnosis. This document has been electronically signed by: Juan Worthington MD on 02/02/2025 16:08:58 Dictated By: Juan Worthington MD Signed By: <Electronically signed by Juan Worthington MD in OV> 02/02/25 1610 DD/ 1608 TD/TT: 02/02/25 1608 Continuity Manager: Procedure Note Donotuseinterpreter, Image - 02/02/[address] [place] [address] [address] Scan Report Signed Patient: Darwin Stahl#: [id number] : 1960cct:[id number] Age/Sex: 64 / MADM Date: 02/01/25 Loc: [facility] 444-[address]: Douglas Lagunas MD Ordering Physician: Zuhair Batista Date of Service: 02/01/25 Procedure(s): CT chest wo IV con Accession Number(s): [id number] cc: Zuhair Batista; Andie Whitmore [facility] Report Number: [id number]: Total DLP = 206.00 mGy-cm CLINICAL HISTORY: Pneumonia. Hypoxic? coughing CT chest without contrast Comparison: CR - XR CHEST 2V - 02/01/25 12:[address]/SR - CT ANGIO CHEST PE PROTOCOL - 11/20/24 21:[address]/SR - CT CHEST WO IV CON - 09/08/24 11:21 EST Findings: Heart is enlarged with small pericardial effusion. Atherosclerosis calcification of the coronary artery. The visualized thyroid and mediastinum are unremarkable. Small to moderate right pleural effusion. There is opacity of the bilateral lower lobe and lingula. Interseptal thickening of the lung parenchyma. 3 mm pulmonary nodule of the right middle lobe series 4, image 93. The upper abdomen is unremarkable. There is unchanged sclerosis of the T11 vertebral body. IMPRESSION: Small to moderate right pleural effusion. Opacity of the bilateral lower lobe and lingula could represent atelectasis or infection. Small pericardial effusion. Small pulmonary nodule. CHF exacerbation. Sclerosis of the T11 vertebral body. Bony metastasis is in the differential diagnosis. This document has been electronically signed by: Juan Worthington MD on 02/02/2025 16:08:58 Dictated By: Juan Worthington MD Signed By: <Electronically signed by Juan Worthington MD in OV> 02/02/25 1610 DD/ 1608 TD/TT: 02/02/25 1608 Continuity Manager: [facility] External Provider IMG CT PROCEDURES Edited Result - Final * (ABNORMAL) High Sensitivity Troponin I (02/01/2025 2:47 PM EDT) Only the most recent of2 resultswithin the time period is included. TROPONIN I HIGH SENSITIVITY 170.0(HH) <3.5 - 35.0 ng/L [facility] Comment:Critical value for t est(s): TROP Results called to and readback by: ROGER Person calling: FLEMINC Date: 02/01/25 Time:1537The [place] high sensitivity Troponin-I results should beused in conjunction with other diagnostic information suchas ECG, clinical observations and information, and patientsymptoms to aid in the diagnosis of MD. 02/01/2025 2:47 PM EDT 02/01/2025 2:52 PM EDT Generic External Data Provider LAB BLOOD ORDERAB LES Final Result Performing Organization Address [facility] Co de Phone Number [facility] [address] [place] [phone] * Lactic Acid (02/01/2025 12:16 PM EDT) Lactic Acid 1.2 0.5 - 2.0 mmol/L [facility] 02/01/2025 12:1 6 PM EDT 02/01/2025 12:20 PM EDT Generic External Data Provider LAB BLOOD ORDERAB LES Final Result Performing Organization Address [facility] Co de Phone Number [facility] [address] [place] [phone] * XR Chest 2 Views (02/01/2025 12:13 PM EDT) Anatomical Region Laterality Modality Chest Radiographic Debra ging 02/01/2025 12:1 3 PM EDT Narrative 02/01/2025 12:14 PM EDT [address] [address] XRay Report Signed Patient: Darwin Stahl MR#: [id number] : 1960 Acct:[id number] Age/Sex: 64 / M ADM Date: 02/01/25 Loc: .ED Attending Dr: Ordering Physician: Brianna Mckeon Date of Service: 02/01/25 Procedure(s): XR chest 2V Accession Number(s): [id number] cc: Brianna Mckeon; Andie Whitmore CLINICAL HISTORY: sob 2 view chest x-ray Comparison: None provided Findings: There is pulmonary vascular congestion. A small right effusion is not excluded. There is cardiomegaly. No acute fracture. IMPRESSION: 1. There is pulmonary vascular congestion. 2. A small right effusion is not excluded. 3. There is cardiomegaly. This document has been electronically signed by: Dalton Lopez MD on 02/01/2025 12:13:29 Dictated By: Dalton Lopez MD Signed By: <Electronically signed by Dalton Lopez MD in OV> 02/01/251213 DD/ 12 TD/TT: 02/01/251212 Continuity Manager: Procedure Note Donotuseinterpreter, Image - 02/01/2025 [place] [address] XRay Report Signed Patient: Emilia Stahl#: [id number] : 1960cct:[id number] Age/Sex: 64 / MADM Date: 02/01/25 Loc: .ED Attending Dr: Ordering Physician: Brianna Mckeon Date of Service: 02/01/25 Procedure(s): XR chest 2V Accession Number(s): [id number] cc: Brianna Mckeon; Andie Whitmore CLINICAL HISTORY: sob 2 view chest x-ray Comparison: None provided Findings: There is pulmonary vascular congestion. A small right effusion is not excluded. There is cardiomegaly. No acute fracture. IMPRESSION: 1. There is pulmonary vascular congestion. 2. A small right effusion is not excluded. 3. There is cardiomegaly. This document has been electronically signed by: Dalton Lopez MD on 02/01/2025 12:13:29 Dictated By: Dalton Lopez MD Signed By: <Electronically signed by Dalton Lopez MD in OV> 02/01/251213 DD/ 12 TD/TT: 02/01/251212 Continuity Manager: [facility] External Provider IMG XR PROCEDURES Edited Result - Final * (ABNORMAL) VENOUS BLOOD GAS (02/01/2025 11:50 AM EDT) VBG pH 7.57(H) 7.32 - 7.43 [facility] Comment:METER #: [id number] additional_comment: Cb hernaso VBG PCO2 35 mmHg [facility] Comment:METER #: [id number] additional_comment: Cb hernaso VBG PO2 38 mmHg [facility] Comment:METER #: [id number] additional_comment: Cb hernaso VBG Base Excess 10.2 mmol/L [facility] Comment:METER #: [id number] additional_comment: Cb hernaso VBG HCO3 32(H) 22 - 26 mmol/L [facility] Comment:METER #: [id number] additional_comment: Cb hernaso O2 Sat, Rober 61.0 % [facility] Comment:METER #: [id number] additional_comment: Cb hernaso 02/01/2025 11:5 0 AM EDT 02/01/2025 11:54 AM EDT us Generic External Data Provider LAB BLOOD ORDERAB LES Final Result [facility] [address] [place] [phone] * (ABNORMAL) SARS-CoV-2 RNA, Influenza A/B, and RSV RNA, Ql NAAT (02/01/2025 11:44 AM EDT) Pathologist [facility] Influenza A PCR POSITIVE(A) Negative [facility] Influenza B PCR NEGATIVE Negative [facility] Resp Syncy Virus RNA Qual PCR NEGATIVE Negative [facility] SARS COV2 PCR NEGATIVE Negative [facility] Comment:All test results mus [...] use by authorized laboratories.Testing performed on the [employer] GeneXpert utilizingreal-time RT-PCR.All SARS CoV2 and positive influenza A/B results arereported to [facility]. 02/01/2025 11:4 4 AM EDT 02/01/2025 11:49 AM EDT us Generic External Data Provider LAB MICROBIOLOGY - GENERAL ORDERABLES Final Result [facility] [address] [place] [phone] * (ABNORMAL) CBC auto differential (02/01/2025 11:44 AM EDT) White Blood Count 5.4 4.8 - 10.8 X10*3/uL [facility] Red Blood Count 4.23(L) 4.60 - 5.80 X10*6/uL [facility] Hemoglobin 11.9(L) 14.0 - 18.0 g/dl [facility] Hematocrit 35.7(L) 42.0 - 52.0 % [facility] Mean Corpuscular Volume 84.4 80.0 - 98.0 fL [facility] Mean Corpuscular Hemoglobin 28.1 27.0 - 33.0 pg [facility] Mean Corpuscular HGB Conc 33.3 31.0 - 36.0 g/dl [facility] Red Cell Distribution Width 17.3(H) 11.0 - 16.0 % [facility] Platelet Count 105(L) 160 - 400 X10*3/uL [facility] Comment:Confirmed by smear.T est was verified by repeat analysis. Neutrophils Percent Auto 83.4(H) 45 - 73 % [facility] Imm Gran Pct Auto 0.4 0.0 - 0.4 % [facility] Lymphocytes Percent Auto 5.2(L) 20 - 40 % [facility] Monocytes Percent Auto 9.7 2 - 11 % [facility] Eosinophils Percent Auto 0.6 0 - 4 % [facility] Basophils Percent Auto 0.7 0 - 2 % [facility] NRBC Pct Auto 0.0 0.0 - 0.2 /100WBC [facility] Neutrophils Absolute Auto 4.5 2.0 - 8.3 x10*3/uL [facility] Imm Gran Abs Auto 0.02 0.00 - 0.03 X10*3/uL [facility] Lymphocytes Absolute Auto 0.3(L) 1.2 - 4.9 X10*3/uL [facility] Monocytes Absolute Auto 0.5 0.1 - 1.2 X10*3/uL [facility] Eosinophils Absolute Auto 0.0 0.0 - 0.4 X10*3/uL [facility] Basophils Absolute Auto 0.0 0.0 - 0.2 X10*3/uL [facility] NRBC Abs Auto 0.000 0.0 - 0.012 X10*3/uL [facility] 02/01/2025 11:4 4 AM EDT 02/01/2025 11:49 AM EDT us Generic External Data Provider LAB BLOOD ORDERAB LES Final Result Performing Organization Address [facility]/ZIP Co de Phone Number [facility] [address] [place] [phone] * (ABNORMAL) B Type Natriuretic Peptide (BNP) (02/01/2025 11:44 AM EDT) B Type Natriuretic Peptide 9,070(H) <100 pg/mL [facility] 02/01/2025 11:4 4 AM EDT 02/01/2025 11:49 AM EDT us Generic External Data Provider LAB BLOOD ORDERAB LES Final Result Performing Organization Address [facility]/ZIP Co de Phone Number [facility] [address] [place] [phone] * Magnesium (02/01/2025 11:44 AM EDT) Pathologist [facility] Magnesium 2.0 1.6 - 2.6 mg/dL [facility] 02/01/2025 11:4 4 AM EDT 02/01/2025 11:49 AM EDT Generic External Data Provider LAB BLOOD ORDERAB LES Final Result Performing Organization Address [facility] Co de Phone Number [facility] [address] [place] [phone] * (ABNORMAL) Hepatic Function Panel (02/01/2025 11:44 AM EDT) [facility] Bilirubin, Total 1.3(H) 0.0 - 1.0 mg/dL [facility] Bilirubin, Direct 0.5 0.0 - 0.5 mg/dL [facility] Aspartate Amino Transferase 59(H) 5 - 37 U/L [facility] Alanine Aminotransferase 22 0 - 40 U/L [facility] Total Protein 7.4 6.5 - 8.0 g/dL [facility] Albumin Level 4.5 3.5 - 5.0 g/dL [facility] Alkaline Phosphatase 230(H) 39 - 117 U/L [facility] 02/01/2025 11:4 4 AM EDT 02/01/2025 11:49 AM EDT us Generic External Data Provider LAB BLOOD ORDERAB LES Final Result Performing Organization Address [facility] Co de Phone Number [facility] [address] [place] [phone] * (ABNORMAL) Basic Metabolic Panel (02/01/2025 11:44 AM EDT) [facility] Sodium 135 135 - 145 mmol/L [facility] Potassium 3.6 3.3 - 5.1 mmol/L [facility] Chloride 93(L) 96 - 108 mmol/L [facility] Carbon Dioxide 25 22 - 29 mmol/L [facility] Anion Gap 21(H) 12 - 20 [facility] Urea Nitrogen (BUN) 22(H) 9 - 16 mg/dL [facility] Creatinine, Serum 3.03(H) 0.5 - 1.4 mg/dL [facility] Creatinine Clr Calc Pharmacy 20.6 [facility] Comment:eGFR (calculated fro m the MDRD study equation) and eCrCl(calculated from the Cockcroft-Gault equation) are based ondifferent parameters and may not yield comparable results.If eCrCl result is absurd, please check patient'sheight/weight. Estimated Glomerular Filt Rate 21 [facility] Comment:Chronic Kidney Disea se: Estimated GFR < 60 mL/min/1.46g2Rbnwyh Kidney Disease: Estimated GFR < 15 mL/min/1.73m2 Glucose 93 60 - 115 mg/dL [facility] Calcium 9.9 8.4 - 10.2 mg/dL [facility] 02/01/2025 11:4 4 AM EDT 02/01/2025 11:49 AM EDT us Generic External Data Provider LAB BLOOD ORDERAB LES Final Result [facility] [address] [place] [address] [phone] * Lipid Panel, Standard (07/26/2024 11:25 AM EST) Triglycerides 54 <150 mg/dL [facility] Comment:Desirable Triglyceri de: less than 150 mg/dLBorderline High Triglyceride 150-199 mg/dLHigh Triglyceride: 200-499 mg/dLVery High Triglyceride: greater than or equal to 5OO mg/dL Cholesterol 142 <200 mg/dL [facility] Comment:Desirable Cholestero l: less than 200 mg/dLBorderline High Cholesterol: 200-239 mg/dLHigh Cholesterol: greater than 239 mg/dL LDL Cholesterol Calculated 83 <100 mg/dL [facility] Comment:Desirable LDL: less than 100 mg/dLNear Optimal/Above Optimal LDL: 110- 129 mg/dLBorderline High LDL: 130-159 mg/dLHigh LDL: 160-189 mg/dLVery High LDL: greater than or equal to 190 mg/dL HDL Cholesterol 49 >40 mg/dL [facility] Comment:Desirable HDL: great er than 40 mg/dL Note: This HDL assay may give artificially low results in patients with liver disease. Blood Venous blood specimen / Unknown 07/26/2024 11:25 AM EST 07/26/2024 1:05 PM EST us Andie Whitmore BUDGET EXAMINER LAB BLOOD ORDERABLES Final Res ult [facility] [address] [place] [address] [phone] from Last 3 Months or Most Recently Relevant to Health Maintenance Insurance [place] [address] [place] [address] [place] [phone] [facility] Advance Directives Documents on File Type Date Recorded Patient Box Builder Expl anation Advance Directives and Living Will 03/06/2025 9:37 AM Health Care Proxy [facility] Care Teams Master Certified Rv Technician Relationship Specialty Start Date End Date Andie Whitmore FNP [address] [place] [address] PCP - General Family Medicine 11/04/21 Trevor Restrepo MD [address] [place] [address] Urology 07/29/24 Juvenal Cr MD [address] [facility] [address] [place] [phone] Nephrology 07/29/24 Kamini Chavarria MD [address] [place] [address] Dr Lara [address] [place] [address] Neurology 07/29/24 Winston Bhagat DPM [address] [place] [address] Dr [address]ara [address] [facility] [place] [phone] Podiatry 07/29/24
--- OUTSIDE RECORDS SUMMARY | 2025-04-18 12:13 | XMS_ITS | Clinical Summary ---
Author Organization [facility] Address [address] [place] [address] [address] [place] [address] Phone Care Team Providers Care Forestry Patrolman Name Role Phone Unavailable Primary Care Provider [...] in the evening. 180 tablet 11/24/2023 Active Calcium Acetate, Phos Binder, 667 MG [...] by mouth 4 (four) times a week: Ernst Muñoz Sat, Sun 16 tablet 11 12/04/2024 6 Active metOLazone 5 MG tablet Take 1 tablet (5 mg total) by mouth 4 (four) times a week: Ernst Muñoz Sat, Sun Take with Bumex 16 tablet 11 01/08/2025 6 Active Active Problems Problem Noted Date Diagnosed Date Carcinoma of prostate 04/21/2021 Anemia of chronic renal failure 04/21/2021 Stage 5 chronic kidney disease 04/21/2021 Hyperkalemia 04/21/2021 Secondary hyperparathyroidism of renal origin Hypocalcemia 04/21/2021 Essential (primary) hypertension 04/21/2021 Acute nontraumatic kidney injury 04/17/2021 Hypertensive disorder 04/17/2021 Encounters Date Type Department Care Team Description 04/12/2025 Orders Only [facility] [address] [place] [phone] Juvenal Cr MD 04/01/2025 Treatment [facility] [address] [address] Juvenal Cr MD End stage renal disease; Dependence on renal dialysis 03/25/2025 Treatment [facility] [address] [address] Juvenal Cr MD End stage renal disease; Dependence on renal dialysis 03/20/2025 Treatment [facility] [address] [phone] Juvenal Cr MD End stage renal disease; Dependence on renal dialysis 03/11/2025 Treatment [facility] [address] [phone] Juvenal Cr MD End stage renal disease; Dependence on renal dialysis 03/04/2025 Treatment [facility] [address] [phone] Juvenal Cr MD End stage renal disease; Dependence on renal dialysis 03/01/2025 Treatment [facility] [address] [address] Juvenal Cr MD End stage renal disease; Dependence on renal dialysis 03/01/2025 TCM in Dialysis Clinic [facility] [address] [address] Juvenal Cr MD 02/13/2025 Treatment [facility] [address] [phone] Juvenal Cr MD End stage renal disease; Dependence on renal dialysis 02/11/2025 Treatment [facility] [address] [phone] Juvenal Cr MD End stage renal disease; Dependence on renal dialysis 02/04/2025 Treatment [facility] [address] [phone] Juvenal Cr MD End stage renal disease; Dependence on renal dialysis 01/21/2025 Treatment [facility] [address] [phone] Juvenal Cr MD End stage renal disease; Dependence on renal dialysis 01/16/2025 Treatment [facility] [address] [phone] Juvenal Cr MD End stage renal disease; Dependence on renal dialysis from Last 3 Months Family History Medical [...] FOBT 01/22/2023 01/22/2022, 11/27/2021 Influenza Vaccine (#1) 2025 , 05/11/2020, 07/24/2019 Procedures Procedure Name Priority Date/Time Associated Diagnosis Comments HEMOGLOBIN Routine 04/12/2025 3:00 AM EDT HEPATITIS B SURFACE ANTIGEN W/REFL CONFIRM Routine 04/03/2025 3:00 AM EDT TRANSFERRIN SATURATION Routine 3:00 AM EDT PROTEIN, TOTAL, SERUM Routine 04/03/2025 3:00 AM EDT MAGNESIUM Routine 04/03/2025 3:00 AM EDT ELECTROLYTE PANEL Routine 04/03/2025 3:0 0 AM EDT LACTATE DEHYDROGENASE Routine 04/03/2025 3:00 AM EDT GLUCOSE, RANDOM Routine 04/03/2025 3:00 AM EDT LIH (HC) Routine 04/03/2025 3:00 AM EDT CREATININE, SERUM Routine 04/03/2025 3:0 0 AM EDT AST Routine 04/03/2025 3:00 AM EDT BILIRUBIN, TOTAL Routine 04/03/2025 3:00 AM EDT BUN/CREATININE RATIO Routine 04/03/2025 3:00 AM EDT ALT Routine 04/03/2025 3:00 AM EDT ALKALINE PHOSPHATASE Routine 04/03/2025 3:00 AM EDT CALCIUM PHOSPHORUS PRODUCT, ADJUSTED (HC) Routine 04/03/2025 3:00 AM EDT FERRITIN Routine 04/03/2025 3:00 AM EDT KT/V NATURAL LOG, URR (HC) Routine 04/03/2025 3:00 AM EDT CBC AND DIFFERENTIAL Routine 04/03/2025 3:00 AM EDT PHOSPHATE ( PHOSPHORUS) Routine 03/27/2025 3:00 AM EDT LIH (HC) Routine 03/27/2025 3:00 AM EDT HEMOGLOBIN AND HEMATOCRIT, BLOOD Routine 03/20/2025 3:00 AM EDT TRANSFERRIN SATURATION Routine 08/06/202 5 3:00 AM EDT PROTEIN, TOTAL, SERUM Routine 03/06/2025 3:00 AM EDT MAGNESIUM Routine 03/06/2025 3:00 AM EDT ELECTROLYTE PANEL Routine 03/06/2025 3:0 0 AM EDT LIH (HC) Routine 03/06/2025 3:00 AM EDT LACTATE DEHYDROGENASE Routine 03/06/2025 3:00 AM EDT BUN/CREATININE RATIO Routine 03/06/2025 3:00 AM EDT GLUCOSE, RANDOM Routine 03/06/2025 3:00 AM EDT CREATININE, SERUM Routine 03/06/2025 3:0 0 AM EDT AST Routine 03/06/2025 3:00 AM EDT ALT Routine 03/06/2025 3:00 AM EDT BILIRUBIN, TOTAL Routine 03/06/2025 3:00 AM EDT ALKALINE PHOSPHATASE Routine 03/06/2025 3:00 AM EDT CALCIUM PHOSPHORUS PRODUCT, ADJUSTED (HC) Routine 03/06/2025 3:00 AM EDT HEPATITIS B SURFACE ANTIGEN W/REFL CONFIRM Routine 03/06/2025 3:00 AM EDT FERRITIN Routine 03/06/2025 3:00 AM EDT CBC AND DIFFERENTIAL Routine 03/06/2025 3:00 AM EDT KT/V NATURAL LOG, URR (HC) Routine 03/06/2025 3:00 AM EDT LIH (HC) Routine 02/22/2025 3:00 AM EDT PHOSPHATE ( PHOSPHORUS) Routine 02/22/2025 3:00 AM EDT HEMOGLOBIN AND HEMATOCRIT, BLOOD Routine 02/13/2025 3:00 AM EDT HEPATITIS C ABS W/REFLEX RNA DETECTR Routine 02/06/2025 3:00 AM EDT FERRITIN Routine 02/06/2025 3:00 AM EDT CONFIRMATION TEST HCV Routine 02/06/2025 3:00 AM EDT HEPATITIS B SURFACE ANTIGEN W/REFL CONFIRM Routine 02/06/2025 3:00 AM EDT PROTEIN, TOTAL, SERUM Routine 02/06/2025 3:00 AM EDT ELECTROLYTE PANEL Routine 02/06/2025 3:0 0 AM EDT TRANSFERRIN SATURATION Routine 3:00 AM EDT MAGNESIUM Routine 02/06/2025 3:00 AM EDT LACTATE DEHYDROGENASE Routine 02/06/2025 3:00 AM EDT LIH (HC) Routine 02/06/2025 3:00 AM EDT LIPID PANEL Routine 02/06/2025 3:00 AM EDT GLUCOSE, RANDOM Routine 02/06/2025 3:00 AM EDT BUN/CREATININE RATIO Routine 02/06/2025 3:00 AM EDT CREATININE, SERUM Routine 02/06/2025 3:0 0 AM EDT AST Routine 02/06/2025 3:00 AM EDT ALT Routine 02/06/2025 3:00 AM EDT BILIRUBIN, TOTAL Routine 02/06/2025 3:00 AM EDT CALCIUM PHOSPHORUS PRODUCT, ADJUSTED (HC) Routine 02/06/2025 3:00 AM EDT ALKALINE PHOSPHATASE Routine 02/06/2025 3:00 AM EDT PTH, INTACT Routine 02/06/2025 3:00 AM EDT CBC AND DIFFERENTIAL Routine 02/06/2025 3:00 AM EDT KT/V NATURAL LOG, URR (HC) Routine 02/06/2025 3:00 AM EDT HEMOGLOBIN AND HEMATOCRIT, BLOOD Routine 01/16/2025 3:00 AM EDT OCCULT BLOOD X 3, STOOL Routine 01/22/2022 from Last 3 Months or Most Recently Relevant to Health Maintenance Results * (ABNORMAL) Hemoglobin (04/12/2025 3:00 AM EDT) [facility] Hgb 10.7(L) 13.7 - 17.5 g/dL [facility] Hemoglobin x 3 32.1(L) 41.1 - 52.5 g/dL [facility] 04/12/2025 3:00 AM EDT 04/13/2025 1:05 PM EDT us Juvenal Cr MD LAB BLOOD ORDERABLES Final Re sult [facility] [address] [place] [address] * LIH (04/03/2025 3:00 AM EDT) Only the most recent of5 resultswithin the time period is included. Lipemia Normal Normal [facility] Icterus Normal Normal [facility] Hemolysis Normal Normal [facility] 04/03/2025 3:00 AM EDT 04/04/2025 1:13 PM EDT Juvenal Cr MD LAB [id number] SOLICITED RESULTS Final Result Performing Organization Address [facility] Co de Phone Number [facility] [address] [place] [address] * (ABNORMAL) Kt/V Natural Log, URR (04/03/2025 3:00 AM EDT) Only the most recent of3 resultswithin the time period is included. Treatment Time 220 min [facility] Pre-Weight, lb 61.9 kg [facility] Post-Weight, lb 59.3 kg [facility] Ultrafiltration Rate 12 <=13 mL/kg/hr [facility] Comment: Recommend achieving Ultrafiltration Rate (UFR) <=10 mL/kg/hr References: Gregory LIN et al. Kidney Int. 2010; 79(2):250-257 BUN 54(H) 7 - 25 mg/dL [facility] BUN Post Dialysis 14 7 - 25 mg/dL [facility] UREA REDUCTION RATIO (%) 74 >=65 % [facility] Kt/V Natural Log 1.61 >=1.2 [facility] 04/03/2025 3:00 AM EDT 04/04/2025 1:13 PM EDT Juvenal Cr MD LAB [id number] SOLICITED RESULTS Final Result Performing Organization Address [facility] Co de Phone Number [facility] [address] [place] [address] * (ABNORMAL) Calcium Phosphorus Product, Adjusted (04/03/2025 3:00 AM EDT) Only the most recent of3 resultswithin the time period is included. Albumin 4.0 3.6 - 5.4 g/dL [facility] Calcium 9.2 8.6 - 10.3 mg/dL [facility] Phosphorus, Serum 7.4(H) 2.5 - 5.0 mg/dL [facility] Ca*PO4 68.1(A) <55.0 mg2/dL2 [facility] Calcium, Adjusted Total 9.2 8.6 - 10.3 mg/dL [facility] CA*PO4 CORRCTD 68.1(A) <55.0 mg2/dL2 [facility] 04/03/2025 3:00 AM EDT 04/04/2025 1:13 PM EDT Juvenal Cr MD LAB [id number] SOLICITED RESULTS Final Result Performing Organization Address [facility]/ZIP Co de Phone Number [facility] [address] [place] [address] * Hepatitis B Surface Ag w/Reflex Confirmation (04/03/2025 3:00 AM EDT) Only the most recent of3 resultswithin the time period is included. Hep B Surface Antigen Negative Negative [facility] 04/03/2025 3:00 AM EDT 04/04/2025 1:13 PM EDT Juvenal Cr MD LAB BLOOD ORDERABLES Final Re sult Performing Organization Address [facility] de Phone Number [facility] [address] [place] [address] * BUN/CREATININE RATIO (04/03/2025 3:00 AM EDT) Only the most recent of3 resultswithin the time period is included. BUN/Creatinine Ratio 9.9 <=23.0 [facility] 04/03/2025 3:00 AM EDT 04/04/2025 1:13 PM EDT Juvenal Cr MD LAB [id number] SOLICITED RESULTS Final Result Performing Organization Address [facility] Co de Phone Number [facility] [address] [place] [address] * (ABNORMAL) TSAT (04/03/2025 3:00 AM EDT) Only the most recent of3 resultswithin the time period is included. Iron 56(L) 65 - 175 ug/dL [facility] Transferrin 165(L) 215 - 365 mg/dL [facility] TIBC 231 211 - 406 ug/dL [facility] Iron Saturation (TSat) 24 22 - 52 % [facility] 04/03/2025 3:00 AM EDT 04/04/2025 1:13 PM EDT us Juvenal Cr MD LAB BLOOD ORDERABLES Final Re sult [facility] [address] [place] [address] * (ABNORMAL) CBC and Differential (04/03/2025 3:00 AM EDT) Only the most recent of3 resultswithin the time period is included. Pathologist [facility] DIFFERENTIAL MANUAL, 2 Not Indicated [facility] White Blood Cells 7.5 4.2 - 9.1 K/uL [facility] RBC 3.94(L) 4.63 - 6.08 M/uL [facility] Hgb 11.3(L) 13.7 - 17.5 g/dL [facility] Hemoglobin x 3 33.9(L) 41.1 - 52.5 g/dL [facility] Hematocrit 35.0(L) 40.1 - 51.0 % [facility] MCV 88.8 79.0 - 92.2 fL [facility] MCH 28.7 25.7 - 32.2 pg [facility] MCHC 32.3 32.3 - 36.5 g/dL [facility] RDW 17.2(H) 11.6 - 14.4 % [facility] Platelets 147(L) 163 - 337 K/uL [facility] MPV Test Canceled fL [facility] Comment:Unable to measure Neutrophils Relative 75.3(H) 34.0 - 67.9 % [facility] Lymphocytes Relative 10.3(L) 21.8 - 53.1 % [facility] Monocytes 9.9 5.3 - 12.2 % [facility] Eosinophils Relative 2.1 0.8 - 7.0 % [facility] Basophils Relative 1.3(H) 0.2 - 1.2 % [facility] Immature Granulocytes 1.1(H) 0.0 - 1.0 % [facility] 04/03/2025 3:00 AM EDT 04/04/2025 1:03 PM EDT Juvenal Cr MD LAB BLOOD ORDERABLES Edited R esult - Final Performing Organization Address [facility] de Phone Number [facility] [address] [place] [address] * (ABNORMAL) ALT (04/03/2025 3:00 AM EDT) Only the most recent of3 resultswithin the time period is included. ALT (SGPT) 7(L) 10 - 49 U/L [facility] 04/03/2025 3:00 AM EDT 04/04/2025 1:13 PM EDT Juvenal Cr MD LAB BLOOD ORDERABLES Final Re sult Performing Organization Address [facility] de Phone Number [facility] [address] [place] [address] * AST (04/03/2025 3:00 AM EDT) Only the most recent of3 resultswithin the time period is included. AST (SGOT) 19 <34 U/L [facility] 04/03/2025 3:00 AM EDT 04/04/2025 1:13 PM EDT Juvenal Cr MD LAB BLOOD ORDERABLES Final Re sult Performing Organization Address [facility] de Phone Number [facility] [address] [place] [address] * Protein, total (04/03/2025 3:00 AM EDT) Only the most recent of3 resultswithin the time period is included. Total Protein 6.9 6.4 - 8.9 g/dL [facility] 04/03/2025 3:00 AM EDT 04/04/2025 1:13 PM EDT Juvenal Cr MD LAB BLOOD ORDERABLES Final Re sult Performing Organization Address [facility] Co de Phone Number [facility] [address] [place] [address] * (ABNORMAL) Alkaline phosphatase (04/03/2025 3:00 AM EDT) Only the most recent of3 resultswithin the time period is included. Alkaline Phosphatase 227(H) 46 - 116 U/L [facility] 04/03/2025 3:00 AM EDT 04/04/2025 1:13 PM EDT Juvenal Cr MD LAB BLOOD ORDERABLES Final Re sult Performing Organization Address [facility] de Phone Number [facility] [address] [place] [address] * Magnesium (04/03/2025 3:00 AM EDT) Only the most recent of3 resultswithin the time period is included. Magnesium 2.3 1.9 - 2.7 mg/dL [facility] 04/03/2025 3:00 AM EDT 04/04/2025 1:13 PM EDT Juvenal Cr MD LAB BLOOD ORDERABLES Final Re sult Performing Organization Address [facility] de Phone Number [facility] [address] [place] [address] * Lactate dehydrogenase (04/03/2025 3:00 AM EDT) Only the most recent of3 resultswithin the time period is included. LDH 222 120 - 246 U/L [facility] 04/03/2025 3:00 AM EDT 04/04/2025 1:13 PM EDT Juvenal Cr MD LAB BLOOD ORDERABLES Final Re sult Performing Organization Address [facility] Co de Phone Number [facility] [address] [place] [address] * (ABNORMAL) Glucose, random (04/03/2025 3:00 AM EDT) Only the most recent of3 resultswithin the time period is included. Glucose 101(H) 70 - 99 mg/dL [facility] Comment: ADA guidelines outline the following fasting glucose ranges: Normal: <100 Prediabetes: 100-125 Diabetes: >125 04/03/2025 3:00 AM EDT 04/04/2025 1:13 PM EDT Juvenal Cr MD LAB BLOOD ORDERABLES Final Re sult Performing Organization Address [facility] Co de Phone Number [facility] [address] [place] [address] * (ABNORMAL) Ferritin (04/03/2025 3:00 AM EDT) Only the most recent of3 resultswithin the time period is included. Ferritin 1,480(H) 22 - 322 ng/mL [facility] 04/03/2025 3:00 AM EDT 04/04/2025 1:13 PM EDT us Juvenal Cr MD LAB BLOOD ORDERABLES Final Re sult Performing Organization Address [facility] Co de Phone Number [facility] [address] [place] [address] * (ABNORMAL) Creatinine, serum (04/03/2025 3:00 AM EDT) Only the most recent of3 resultswithin the time period is included. Creatinine 5.47(H) 0.70 - 1.30 mg/dL [facility] 04/03/2025 3:00 AM EDT 04/04/2025 1:13 PM EDT us Juvenal Cr MD LAB BLOOD ORDERABLES Final Re sult Performing Organization Address [facility] Co de Phone Number [facility] [address] [place] [address] * Bilirubin, total (04/03/2025 3:00 AM EDT) Only the most recent of3 resultswithin the time period is included. Total Bilirubin 0.4 0.3 - 1.2 mg/dL [facility] 04/03/2025 3:00 AM EDT 04/04/2025 1:13 PM EDT Juvenal Cr MD LAB BLOOD ORDERABLES Final Re sult Performing Organization Address [facility] de Phone Number [facility] [address] [place] [address] * (ABNORMAL) Electrolyte panel (04/03/2025 3:00 AM EDT) Only the most recent of3 resultswithin the time period is included. Sodium 135(L) 136 - 145 mEq/L [facility] Potassium 4.2 3.4 - 5.0 mEq/L [facility] Chloride 96(L) 98 - 107 mEq/L [facility] Bicarbonate (CO2) 23 21 - 31 mEq/L [facility] Anion Gap 16(H) 3 - 14 mEq/L [facility] 04/03/2025 3:00 AM EDT 04/04/2025 1:13 PM EDT us Juvenal Cr MD LAB BLOOD ORDERABLES Final Re sult Performing Organization Address [facility] de Phone Number [facility] [address] [place] [address] * (ABNORMAL) Phosphorus (03/27/2025 3:00 AM EDT) Only the most recent of2 resultswithin the time period is included. Phosphorus, Serum 6.7(H) 2.5 - 5.0 mg/dL [facility] 03/27/2025 3:00 AM EDT 03/28/2025 12:28 PM EDT Juvenal Cr MD LAB BLOOD ORDERABLES Final Re sult Performing Organization Address [facility] de Phone Number [facility] [address] [place] [address] * (ABNORMAL) Hemoglobin and hematocrit (03/20/2025 3:00 AM EDT) Only the most recent of3 resultswithin the time period is included. Hgb 10.8(L) 13.7 - 17.5 g/dL [facility] Hematocrit 33.0(L) 40.1 - 51.0 % [facility] Hemoglobin x 3 32.4(L) 41.1 - 52.5 g/dL [facility] 03/20/2025 3:00 AM EDT 03/21/2025 2:36 PM EDT us Juvenal Cr MD LAB BLOOD ORDERABLES Final Re sult Performing Organization Address [facility] de Phone Number [facility] [address] [place] [address] * Confirmation Test HCV (02/06/2025 3:00 AM EDT) Pathologist [facility] Hep C Ab Confirmation Not needed [facility] 02/06/2025 3:00 AM EDT 02/07/2025 2:24 PM EDT Juvenal Cr MD LAB BLOOD ORDERABLES Final Re sult Performing Organization Address [facility] de Phone Number [facility] [address] [place] [address] * HEPATITIS C ABS W/REFLEX RNA DETECTR (02/06/2025 3:00 AM EDT) Pathologist [facility] Hep C Virus Ab Non-Reacti ve Non-Reacti ve [facility] 02/06/2025 3:00 AM EDT 02/07/2025 1:31 PM EDT us Juvenla Cr MD LAB [id number] SOLICITED RESULTS Final Result Performing Organization Address [facility] de Phone Number [facility] [address] [place] [address] * PTH, Intact (02/06/2025 3:00 AM EDT) PTH, Intact 193 160 - 721 pg/mL [facility] Comment: Suggested (KDIGO) ESRD maintenance range is two to nine times the upper normal limit (80.1 pg/mL) for the laboratory. 02/06/2025 3:00 AM EDT 02/07/2025 1:31 PM EDT Juvenal Cr MD LAB BLOOD ORDERABLES Final Re sult Performing Organization Address [facility] Co de Phone Number [facility] [address] [place] [address] * (ABNORMAL) Lipid panel (02/06/2025 3:00 AM EDT) Cholesterol 125 mg/dL [facility] Comment: Optimal: <200 Borderline: 200-239 High Risk: >239 Triglycerides 68 mg/dL [facility] Comment: Optimal: <150 Borderline: 150-200 High Risk: >200 HDL 38(L) mg/dL [facility] Comment: Optimal: >59 Borderline: 40-59 High Risk: <40 LDL-Calc 73 mg/dL [facility] Comment: Optimal: <100 Borderline: 100-159 High Risk: >159 VLDL Cholesterol Isaias 14 mg/dL [facility] Comment: Optimal: <30 Borderline: 30-40 High Risk: >40 Chol/HDL Ratio 3.3(H) [facility] Comment: Optimal: <3.3 High Risk: >6.2 02/06/2025 3:00 AM EDT 02/07/2025 1:31 PM EDT Juvenal Cr MD LAB BLOOD ORDERABLES Final Re sult Performing Organization Address [facility] de Phone Number [facility] [address] [place] [address] * Occult blood x 3, stool (01/22/2022) Occult Blood, Stool #1 Negative Negative [facility] Comment: Performed by [facility]. Occult Blood, Stool #2 Negative Negative [facility] Comment: Performed by [facility]. Collection Time 600 [facility] 01/22/2022 01/27/2022 1:2 3 PM EDT Narrative [facility] - 01/27/2022 Unless otherwise specified, test(s) performed at: [facility], [address] [place] [id number] [address]: Cruzito Knutson M.D. For any questions, please call customer service at FREQUENCY:OTHER Resulting Agency Comment Specimen source: Occult Blood Card Juvenal Cr MD LAB BODY FLUIDS AND STOOLS OR DERABLES Final Result [facility] from Last 3 Months or Most Recently Relevant to Health Maintenance Insurance [place]
--- OUTSIDE RECORDS SUMMARY | 2025-04-18 12:13 | XMS_ITS | Encounter Summary ---
Author Organization [facility] [employer] Address [address] [place] [address] Care Team Providers Care Gas Operations Analyst Name Role Phone Andie Whitmore Primary Care Provider [phone] Trevor Restrepo MD Unavailable [phone] Juvenal Cr MD Unavailable [phone] Kamini Chavarria MD Unavailable [phone] Winston Bhagat DPM Unavailable [phone] Reason for Visit * Reason Onset Date Comments Hospital Follow-up 11/09/2024 Encounter Details Date Type Department Care Team (Late st Contact Info) Description 11/09/2024 Telephone [facility] [address] [place], [place] [phone] Andie Whitmore FNP [address] [place] [address] Hospital Follow-up Social History Tobacco Use Types [...] from pt requesting a HDF appt. Hospital: [facility] Date of admission: 11/04/24 Discharge date: 11/08/24 Diagnosed: pneumonia *Send message to [place] Clinical Care Coordinators documented in this encounter Plan of Treatment Upcoming Encounters Date Type Department Care Team ([facility] st Contact Info) Description 04/19/2025 2:30 PM EDT Office Visit [facility] [address] [place] [address] Andie Whitmore FNP [address] [place] [address] documented as of this encounter Visit Diagnoses Not on filedocumented in this encounter Additional Health Concerns Assessment Noted Time PHQ-9 Depression Total Score: 1 12/23/19 23 3:02 PM EDT documented as of this encounter Care Teams Gas Operations Analyst Relationship Specialty Start Date End Date Andie Whitmore FNP [address] [place] [address] PCP - General Family Medicine 11/04/21 Trevor Restrepo MD [address] [place] [address] Urology 07/29/24 Juvenal Cr MD [address] [facility] [address] [place] [address] Nephrology 07/29/24 Kamini Chavarria MD [address] [place] [address] Dr [address] [place] [address] Neurology 07/29/24 Winston Bhagat DPM [address] [place] [address] Dr [address] [place] [address] Podiatry 07/29/24 documented as of this encounter
--- OUTSIDE RECORDS SUMMARY | 2025-04-18 12:13 | XMS_ITS | Encounter Summary ---
Author Organization [employer] Address [address] [facility] 7t [place] [address] Care Team Providers Care Bridal Service Sales And Management Name Role Phone Andie Whitmore Primary Care Provider [phone] Trevor Restrepo MD Unavailable [phone] Juvenal Cr MD Unavailable [phone] Kamini Chavarria MD Unavailable Winston Bhagat DPM Unavailable [phone] Encounter Details Date Type Department Care Team (Late st Contact Info) Description 12/21/2024 Orders Only [facility] MED & PEDS [address] [place], [place] [phone] Andie Whitmore FNP [address] [place] [address] Social History Tobacco Use Types Packs/Day Years [...] 04/19/2025 2:30 PM EDT Office Visit [facility] MED & PEDS [address] [place] [address] Andie Whitmore FNP [address] [place] [address] documented as of this encounter Visit Diagnoses Not on filedocumented in this encounter Additional Health Concerns Assessment Noted Time PHQ-9 Depression Total Score: 1 12/23/19 23 3:02 PM EDT documented as of this encounter Care Teams Bridal Service Sales And Management Relationship Specialty Start Date End Date Andie Whitmore FNP [address] [place] [address] PCP - General Family Medicine 11/04/21 Trevor Restrepo MD [address] [place] [address] Urology 07/29/24 Juvenal Cr MD 100 [facility] 200 [place] [address] Nephrology 07/29/24 Kamini Chavarria MD [address] [place] [address] [place] [address] Neurology 07/29/24 Winston Bhagat DPM [address] [place] [address] [place] [address] Podiatry 07/29/24 documented as of this encounter
--- OUTSIDE RECORDS SUMMARY | 2025-04-18 12:13 | XMS_ITS | Encounter Summary ---
Author Organization [employer] Address [address] [facility] [address] [place] [address] Care Team Providers Care Vascular Sonographer Name Role Phone Andie Whitmore Primary Care Provider [phone] Trevor Restrepo MD Unavailable [phone] Juvenal Cr MD Unavailable [phone] Kamini Chavarria MD Unavailable [phone] Winston Bhagat DPM Unavailable [phone] Encounter Details Date Type Department Care Team (Late st Contact Info) Description 02/26/2025 Orders Only [facility] MED & PEDS [address] [place], [place] [phone] ProviderMoo MD Social History Tobacco Use Types Packs/Day Years [...] Description 04/19/2025 2:30 PM EDT Office Visit [facility] MED & PEDS [address] [place], [place] [phone] Andie Whitmore FNP [address] [place] [address] documented as of this encounter Procedures Procedure Name Priority Date/Time Associated Diagnosis Comments ECG 12-LEAD Routine 02/25/2025 12:35 PM EDT documented in this encounter Results * ECG 12 lead (02/25/2025 12:35 PM EDT) us Historical Provider ECG ORDERABLES Final Res ult documented in this encounter Visit Diagnoses Not on filedocumented in this encounter Additional Health Concerns Assessment Noted Time PHQ-9 Depression Total Score: 1 12/23/19 23 3:02 PM EDT documented as of this encounter Care Teams Vascular Sonographer Relationship Specialty Start Date End Date Andie Whitmore FNP [address] [place] [address] PCP - General Family Medicine 11/04/21 Trevor Restrepo MD [address] [place] [address] Urology 07/29/24 Juvenal Cr MD [address] [facility] [address] [place] [address] Nephrology 07/29/24 Kamini Chavarria MD [address] [place] [address] Dr Lara [address] [place] [place] [address] Neurology 07/29/24 Winston Bhagat DPM [address] [place] [address] Dr Lara [address] [place] [place] [address] Podiatry 07/29/24 documented as of this encounter
--- OUTSIDE RECORDS SUMMARY | 2025-04-18 12:13 | XMS_ITS | Encounter Summary ---
Author Organization [facility] Address [address] [address] Phone Care Team Providers Care Retail Specialist Name Role Phone Unavailable Primary Care Provider Unavailabl e Encounter Details Date Type Department Care Team ([facility] st Contact Info) Description 11/12/2024 TCM in Dialysis Clinic [facility] [address] [address] Clinton Ortega MD [address] [address] Social History Tobacco Use Types [...] obtained. The patient was seen for a [id number] visit as part of Transitional Care Management services. Attending Repair Welder: CLINTON ORTEGA Dialysis Location: [facility] Schedule: Shift: 1 INTERACTIVE CONTACT Contact [...] patient or caregiver VISIT DIAGNOSES CPT Code 09161 - High complexity, seen within 7 days [...]
--- OUTSIDE RECORDS SUMMARY | 2025-04-18 12:13 | XMS_ITS | Clinical Summary ---
Author Organization [facility] Address [address] [place] [address] Phone Care Team Providers Care Makeup Artist Name Role Phone Andie Whitmore [employer] Provider Allergies No known active allergies Medications amLODIPine (NORVASC) 10 mg tablet Take 1 tablet (10 mg total) by mouth 1 (one) time each day. Active Ventolin HFA 90 mcg/actuation inhaler Inhale 2 puffs by mouth every 4 (four) hours if needed for wheezing. 02/16/2025 Active losartan (COZAAR) 50 mg tablet Take 1 tablet (50 mg total) by mouth. Take 4 times a week on non-dialysis days 12/04/2024 Active metOLazone (ZAROXOLYN) 5 mg tablet Take 1 tablet (5 mg total) by mouth. Take 4 times a week on non-dialysis days 01/08/2025 Active rosuvastatin (CRESTOR) 5 mg tablet Take 1 tablet (5 mg total) by mouth at bedtime. 08/09/2024 Active hydrALAZINE (APRESOLINE) 100 mg tablet Take 1 tablet (100 mg total) by mouth 2 (two) times a day. 12/26/2024 Active rOPINIRole (REQUIP) 2 mg tablet Take 2 tablets (4 mg total) by mouth at bedtime. Active Active Problems Problem Noted Date Diagnosed Date Hypervolemia, unspecified hypervolemia type 01/30 Anemia in chronic kidney disease 03/05/2024 ESRD (end stage renal disease) ([facility] V24, [facility] V28) 03/02/2024 Heart failure with mildly re duced ejection fraction ([facility] V24, [facility] V28) 03/02/2024 HTN (hypertension) 03/02/2024 Obstructive uropathy 03/02/2024 Onychauxis 03/02/2024 Onychomycosis 03/02/2024 Prostate cancer metastatic t o bone ([facility] V24, [facility] V28) 03/02/2024 Secondary hyperparathyroidism of renal origin ([facility] V24) 03/02/2024 Encounters Date Type Department Care Team Description 02/25/2025 6:01 AM EDT - 02/27/2025 2:22 PM EDT Hospital Encounter [facility] [address] [place] [address] Juvenal Feng MD [place], MD Blaire Esteves, Joshua Knowles MD Hypervolemia, unspecified hypervolemia type (Primary Dx); [...] of Health Screening 02/24/2024 Depression Screening 08/01/2024 DTaP,Tdap,and Td Vaccines (2 - Td or Tdap) 12/17/2024 12/17/2014 COVID-19 Vaccine (8 - Pfizer risk 2023- season) 2025 03/29/2024, 06/30/2023, 06/10/2022, Additional history exists Influenza Vaccine (#1) 2025 , 04/22/2021, 05/11/2020, [...] K/mcL LAB HEMETOLOGY METHOD 02/27/2025 6:43 AM [facility] RBC 3.40(L) 4.50 - 5.50 M/mcL LAB HEMETOLOGY METHOD 02/27/2025 6:43 AM [facility] Hemoglobin 9.3(L) 13.5 - 17.5 g/dL LAB HEMETOLOGY METHOD 02/27/2025 6:43 AM [facility] Hematocrit 30.3(L) 42.0 - 54.0 % LAB HEMETOLOGY METHOD 02/27/2025 6:43 AM [facility] MCV 89.4 79.0 - 98.0 FL LAB HEMETOLOGY METHOD 02/27/2025 6:43 AM [facility] MCH 27.4 27.0 - 32.0 pcg LAB HEMETOLOGY METHOD 02/27/2025 6:43 AM [facility] MCHC 30.7(L) 32.0 - 37.0 g/dL LAB HEMETOLOGY METHOD 02/27/2025 6:43 AM [facility] RDW 19.1(H) 11.0 - 15.0 % LAB HEMETOLOGY METHOD 02/27/2025 6:43 AM EDT [facility] Platelets 146 130 - 400 K/mcL LAB HEMETOLOGY METHOD 02/27/2025 6:43 AM EDT [facility] MPV 12.5(H) 7.0 - 11.0 FL LAB HEMETOLOGY METHOD 02/27/2025 6:43 AM EDT [facility] NRBC 0.0 <1.0 % LAB HEMETOLOGY METHOD 02/27/2025 6:43 AM EDT [facility] NRBC Absolute 0.00 <0.10 K/mcL LAB HEMETOLOGY METHOD 02/27/2025 6:43 AM EDT [facility] Blood Venous blood specimen / Unknown Venipuncture / Unknown 02/27/2025 5:16 AM EDT 02/27/2025 6:19 AM EDT Joshua Rudd MD LAB BLOOD ORDERABLE S Final Result [facility] [address] [place] [address], * (ABNORMAL) Phosphorus (02/27/2025 5:16 AM EDT) Phosphorus 7.6(H) 2.5 - 4.5 mg/dL LAB CHEMISTRY METHOD 02/27/2025 7:42 AM EDT [facility] Comment:Results verified by repeat testing Blood Venous blood specimen / Unknown Venipuncture / Unknown 02/27/2025 5:16 AM EDT 02/27/2025 6:20 AM EDT us Joshua Rudd MD LAB BLOOD ORDERABLE S Final Result [facility] [address] [place] [address], [place] [phone] * Magnesium (02/27/2025 5:16 AM EDT) [facility] Magnesium 2.2 1.9 - 2.6 mg/dL LAB CHEMISTRY METHOD 02/27/2025 7:14 AM EDT [facility] Blood Venous blood specimen / Unknown Venipuncture / Unknown 02/27/2025 5:16 AM EDT 02/27/2025 6:20 AM EDT Joshua Rudd MD LAB BLOOD ORDERABLE S Final Result [facility] [address] [place] [address], [place] [phone] * (ABNORMAL) Basic metabolic panel (02/27/2025 5:16 AM EDT) Only the most recent of2 resultswithin the time period is included. [facility] Sodium 132(L) 133 - 145 mmol/L LAB CHEMISTRY METHOD 02/27/2025 7:26 AM [facility] Potassium 4.8 3.5 - 5.5 mmol/L LAB CHEMISTRY METHOD 02/27/2025 7:26 AM [facility] Chloride 94(L) 96 - 110 mmol/L LAB CHEMISTRY METHOD 02/27/2025 7:26 AM [facility] CO2 31 21 - 32 mmol/L LAB CHEMISTRY METHOD 02/27/2025 7:26 AM [facility] Anion Gap 7 3 - 11 LAB CHEMISTRY METHOD 02/27/2025 7:26 AM [facility] Glucose 90 70 - 100 mg/dL LAB CHEMISTRY METHOD 02/27/2025 7:26 AM [facility] BUN 63(H) 5 - 25 mg/dL LAB CHEMISTRY METHOD 02/27/2025 7:26 AM T [facility] Creatinine 5.64(H) 0.70 - 1.30 mg/dL LAB CHEMISTRY METHOD 02/27/2025 7:26 AM [facility] eGFR 11(L) >=60 mL/min/1. 73m2 LAB CHEMISTRY METHOD 02/27/2025 7:26 AM [facility] Comment:Calculation based on the Chronic Kidney Disease Epidemiology Collaboration (CKD-EPI) equation refit without adjustment for race. BUN/Creatinine Ratio 11.2 LAB CHEMISTRY METHOD 02/27/2025 7:26 AM [facility] Calcium 9.2 8.5 - 10.5 mg/dL LAB CHEMISTRY METHOD 02/27/2025 7:26 AM [facility] Blood Venous blood specimen / Unknown Venipuncture / Unknown 02/27/2025 5:16 AM EDT 02/27/2025 6:20 AM EDT Joshua Rudd MD LAB BLOOD ORDERABLE S Final Result [facility] [address] [place] [address], * (ABNORMAL) CBC auto differential (02/26/2025 5:18 AM EDT) WBC 10.2 4.8 - 10.8 K/mcL LAB HEMETOLOGY METHOD 02/26/2025 7:09 AM [facility] RBC 3.30(L) 4.50 - 5.50 M/mcL LAB HEMETOLOGY METHOD 02/26/2025 7:09 AM [facility] Hemoglobin 9.2(L) 13.5 - 17.5 g/dL LAB HEMETOLOGY METHOD 02/26/2025 7:09 AM [facility] Hematocrit 29.8(L) 42.0 - 54.0 % LAB HEMETOLOGY METHOD 02/26/2025 7:09 AM [facility] MCV 89.2 79.0 - 98.0 FL LAB HEMETOLOGY METHOD 02/26/2025 7:09 AM [facility] MCH 27.5 27.0 - 32.0 pcg LAB HEMETOLOGY METHOD 02/26/2025 7:09 AM [facility] MCHC 30.9(L) 32.0 - 37.0 g/dL LAB HEMETOLOGY METHOD 02/26/2025 7:09 AM [facility] RDW 19.1(H) 11.0 - 15.0 % LAB HEMETOLOGY METHOD 02/26/2025 7:09 AM [facility] Platelets 141 130 - 400 K/mcL LAB HEMETOLOGY METHOD 02/26/2025 7:09 AM [facility] MPV 11.0 7.0 - 11.0 FL LAB HEMETOLOGY METHOD 02/26/2025 7:09 AM [facility] NRBC 0.0 <1.0 % LAB HEMETOLOGY METHOD 02/26/2025 7:09 AM [facility] NRBC Absolute 0.00 <0.10 K/mcL LAB HEMETOLOGY METHOD 02/26/2025 7:09 AM [facility] Neutrophils Relative 84.7 % LAB HEMETOLOGY METHOD 02/26/2025 7:09 AM [facility] Lymphocytes Relative 8.0 % LAB HEMETOLOGY METHOD 02/26/2025 7:09 AM [facility] Monocytes Relative 5.6 % LAB HEMETOLOGY METHOD 02/26/2025 7:09 AM [facility] Eosinophils Relative 0.3 % LAB HEMETOLOGY METHOD 02/26/2025 7:09 AM [facility] Basophils Relative 0.6 % LAB HEMETOLOGY METHOD 02/26/2025 7:09 AM EDT [facility] Immature Granulocytes Relative 0.8 % LAB HEMETOLOGY METHOD 02/26/2025 7:09 AM EDT [facility] Neutrophils Absolute 8.67(H) 1.50 - 7.00 K/mcL LAB HEMETOLOGY METHOD 02/26/2025 7:09 AM EDT [facility] Lymphocytes Absolute 0.82(L) 1.00 - 5.00 K/mcL LAB HEMETOLOGY METHOD 02/26/2025 7:09 AM EDT [facility] Monocytes Absolute 0.57 0.20 - 1.00 K/mcL LAB HEMETOLOGY METHOD 02/26/2025 7:09 AM EDT [facility] Eosinophils Absolute 0.03 0.00 - 0.50 K/mcL LAB HEMETOLOGY METHOD 02/26/2025 7:09 AM EDT [facility] Basophils Absolute 0.06 0.00 - 0.20 K/mcL LAB HEMETOLOGY METHOD 02/26/2025 7:09 AM EDT [facility] Immature Granulocytes Absolute 0.08(H) 0.00 - 0.03 K/mcL LAB HEMETOLOGY [facility] Blood Venous blood specimen / Unknown Venipuncture / Unknown 02/26/2025 5:18 AM EDT 02/26/2025 6:39 AM EDT us Cassi SHELDON LAB BLOOD ORDERABLES Final Result [facility] [address] [place] [address], * (ABNORMAL) Troponin I high sensitivity (NOW and then in 1 hour) (02/25/2025 7:40 AM EDT) Only the most recent of2 resultswithin the time period is included. High Sensitivity Troponin I 93(H) <=79 ng/L LAB CHEMISTRY METHOD 02/25/2025 8:22 AM EDT [facility] Blood Venous blood specimen / Unknown Venipuncture / Unknown 02/25/2025 7:40 AM EDT 02/25/2025 7:58 AM EDT Narrative [facility] - 02/25/2025 8:22 AM EDT High levels of biotin in samples may falsely decrease hsTroponin values. Use caution when interpreting hsTroponin results in patients taking biotin who exhibit renal impairment (eGFR <60) or in patients taking more than 20 mg/day of biotin. us Bernie Bergeron MD LAB BLOOD ORDERABLES Final Res ult [facility] [address] [place] [address], * XR Chest 1 View (02/25/2025 7:35 [...] Signed Date: 02/25/2025 08:09 ET Workstation ID: [id number] Transcribed By: Self Edit Transcribed Date: 02/25/2025 [...] Signed Date: 02/25/2025 08:09 ET Workstation ID: [id number] Transcribed By: Self Edit Transcribed Date: 02/25/2025 08:09 ET us Bernie Bergeron MD IMG XR PROCEDURES Final Result * Hepatitis B surface antigen with reflex to confirmation (02/25/2025 6:27 AM EDT) [facility] Hepatitis B Surface Ag Negative Negative LAB CHEMISTRY METHOD 02/25/2025 5:13 PM EDT [facility] Blood Venous blood specimen / Unknown Venipuncture / Unknown 02/25/2025 6:27 AM EDT 02/25/2025 6:32 AM EDT Narrative [facility] - 02/25/2025 5:13 PM EDT Over the counter supplements containing high doses of biotin may interfere with this assay. If interference is suspected, patients shoud be retested after refraining from biotin supplements for 72 hours. us Linn iMller MD LAB BLOOD ORDERABLES Final Res ult [facility] [address] [place] [address], * (ABNORMAL) Procalcitonin (02/25/2025 6:27 AM EDT) Pathologist [facility] Procalcitonin 1.72(H) <=0.16 ng/mL LAB CHEMISTRY METHOD 02/25/2025 1:44 PM EDT [facility] Blood Venous blood specimen / Unknown Venipuncture / Unknown 02/25/2025 6:27 AM EDT 02/25/2025 6:32 AM EDT Narrative [facility] - 02/25/2025 1:44 PM EDT Procalcitonin [...] if any concentrations <2.0 ng/mL are obtained. us Cassi SHELDON LAB BLOOD ORDERABLES Final Result [facility] [address] [place] [address], * Hepatitis B surface antibody quantitative (02/25/2025 6:27 AM EDT) Hepatitis B Surface Ab Negative Negative LAB CHEMISTRY METHOD 02/25/2025 5:27 PM EDT [facility] Hepatitis B Surface Ab Quantitative <3.1 mIU/mL LAB CHEMISTRY METHOD 02/25/2025 5:27 PM EDT [facility] Blood Venous blood specimen / Unknown Venipuncture / Unknown 02/25/2025 6:27 AM EDT 02/25/2025 6:32 AM EDT Narrative [facility] - 02/25/2025 5:27 PM EDT >=10 mIU/mL is considered to be consistent with immunity. Linn Miller MD LAB BLOOD ORDERABLES Final Res ult Performing Organization Address City/[facility]/ZIP Co de Phone Number [facility] [address] [place] [address], [place] [phone] * (ABNORMAL) BNP (02/25/2025 6:27 AM EDT) [facility] BNP 2,343(H) <=100 pcg/mL LAB CHEMISTRY METHOD 02/25/2025 7:06 AM EDT [facility] Blood Venous blood specimen / Unknown Venipuncture / Unknown 02/25/2025 6:27 AM EDT 02/25/2025 6:32 AM EDT Bernie Bergeron MD LAB BLOOD ORDERABLES Final Res ult Performing Organization Address [facility]/ZIP Co de Phone Number [facility] [address] [place] [address], [place] [phone] * (ABNORMAL) Blood gas, venous (02/25/2025 6:27 AM EDT) Pathologist [facility] pH, Rober 7.42 7.32 - 7.42 pH 02/25/2025 6:35 AM EDT [facility] pCO2, Rober 39(L) 41 - 51 mmHg 02/25/2025 6:35 AM EDT [facility] pO2, Rober 51(H) 25 - 40 mmHg 02/25/2025 6:35 AM EDT [facility] HCO3, Venous 25.2 22.0 - 26.0 mmol/L 02/25/2025 6:35 AM EDT [facility] O2 Sat, Rober 82.8 % 02/25/2025 6:35 AM T [facility] Base Excess, Rober 0.8 -2.0 - 2.0 mmol/L 02/25/2025 6:35 AM [facility] Blood Venous blood specimen / Unknown Venipuncture / Unknown 02/25/2025 6:27 AM EDT 02/25/2025 6:32 AM EDT us Bernie Bergeron MD LAB BLOOD ORDERABLES Final Res ult [facility] [address] [place] [address], * (ABNORMAL) Comprehensive metabolic panel (02/25/2025 6:27 AM EDT) Sodium 133 133 - 145 mmol/L LAB CHEMISTRY METHOD 02/25/2025 7:16 AM [facility] Potassium 5.7(H) 3.5 - 5.5 mmol/L LAB CHEMISTRY METHOD 02/25/2025 7:16 AM [facility] Chloride 98 96 - 110 mmol/L LAB CHEMISTRY METHOD 02/25/2025 7:16 AM [facility] CO2 25 21 - 32 mmol/L LAB CHEMISTRY METHOD 02/25/2025 7:16 AM [facility] Anion Gap 10 3 - 11 LAB CHEMISTRY METHOD 02/25/2025 7:16 AM [facility] Glucose 133(H) 70 - 100 mg/dL LAB CHEMISTRY METHOD 02/25/2025 7:16 AM [facility] BUN 86(H) 5 - 25 mg/dL LAB CHEMISTRY METHOD 02/25/2025 7:16 AM [facility] Comment:Results verified by repeat testing Creatinine 6.44(H) 0.70 - 1.30 mg/dL LAB CHEMISTRY METHOD 02/25/2025 7:16 AM [facility] Comment:Results verified by repeat testing eGFR 9(L) >=60 mL/min/1. 73m2 LAB CHEMISTRY METHOD 02/25/2025 7:16 AM [facility] Comment:Calculation based on the Chronic Kidney Disease Epidemiology Collaboration (CKD-EPI) equation refit without adjustment for race. BUN/Creatinine Ratio 13.4 LAB CHEMISTRY METHOD 02/25/2025 7:16 AM [facility] Calcium 10.0 8.5 - 10.5 mg/dL LAB CHEMISTRY METHOD 02/25/2025 7:16 AM [facility] AST (SGOT) 26 10 - 42 unit/L LAB CHEMISTRY METHOD 02/25/2025 7:16 AM [facility] ALT (SGPT) 27 10 - 60 unit/L LAB CHEMISTRY METHOD 02/25/2025 7:16 AM [facility] Alkaline Phosphatase 263(H) 42 - 121 unit/L LAB CHEMISTRY METHOD 02/25/2025 7:16 AM [facility] Total Protein 6.7 6.0 - 8.0 g/dL LAB CHEMISTRY METHOD 02/25/2025 7:16 AM [facility] Albumin 3.5 3.2 - 5.0 g/dL LAB CHEMISTRY METHOD 02/25/2025 7:16 AM [facility] Total Bilirubin 1.1 0.0 - 1.4 mg/dL LAB CHEMISTRY METHOD 02/25/2025 7:16 AM [facility] Blood Venous blood specimen / Unknown Venipuncture / Unknown 02/25/2025 6:27 AM EDT 02/25/2025 6:32 AM EDT us Bernie Bergeron MD LAB BLOOD ORDERABLES Final Res ult [facility] [address] [place] [address], * ECG 12 lead (02/25/2025 6:17 AM EDT) Ventricular Rate ECG 83 BPM GEMUSE Atrial Rate 83 BPM GEMUSE P-R Interval 158 ms GEMUSE QRS Duration 86 ms GEMUSE Q-T Interval 378 ms GEMUSE QTc 444 ms GEMUSE P Wave [place] 70 degrees GEMUSE R [place] -57 degrees GEMUSE T [place] 90 degrees GEMUSE ECG Interpretation Normal sinus rhythm Possible Left atrial enlargement Left axis deviation Abnormal ECG No previous ECGs available Confirmed by MAURICIO EDWARDS ([id number]) on 02/25/2025 9:12:07 PM GEMUSE 02/25/2025 6:17 AM EDT 02/25/2025 9:12 PM EDT Bernie Bergeron MD ECG ORDERABLES Final Result GEMUSE from Last 3 Months Insurance MEDICA[place] - [place] MEDICARE Advance Directives Documents on File Type Date Recorded Patient Librarian Specialist Expl anation Advance Directives and Living Will 02/25/2025 2:59 PM [facility] * Full Code - Default (Latest [...] Healthcare Agent Relationshi p Communication Kayleenlita Packer [facility] Care Agent Care Teams Makeup Artist Relationship Specialty Start Date End Date Andie Whitmore RN [address] [address] PCP - General 12/14/23
--- OUTSIDE RECORDS SUMMARY | 2025-04-18 12:13 | XMS_ITS | Encounter Summary ---
Author Organization [employer] Address [address] [facility] [address] [place] [address] Care Team Providers Care Second Cutter Name Role Phone Andie Whitmore Primary Care Provider [place] Restrepo MD Unavailable [phone] MD Unavailable [phone] Kamini Chavarria MD Unavailable [phone] [place] Bhagat DPM Unavailable [phone] Reason for Referral * Imaging (Urgent) - Closed Specialty Diagnoses / Procedures Referred By Contac t Referred To Contact Cardiology Diagnoses ESRD (end stage renal disease) ([facility]) Primary hypertension Shortness of breath Procedures Transthoracic Echo (TTE) Complete Andie Whitmore FNP [address] [place] [address] Phone: tel: fax: [address] Phone: tel: fax: Referral ID Status Reason Start Date Expiration Date V isits Requested Visits Authorized [id number] Closed Perform Procedure 06/29/2023 06/28/2024 1 1 Reason for Visit * Reason Onset Date Comments Call Back Request 06/21/2023 Encounter Details Date Type Department Care Team (Late st Contact Info) Description 06/21/2023 Telephone [facility] [address] [place] [address] Andie Whitmore, CORINNE [address] [place] [address] Call Back Request Social History Tobacco Use [...] order of the heart. Contact pt at [phone] * Telephone Encounter - Iram Pierre RN [...] just once, had an EKG, and the insurance account specialist said he was just fine. Patient has [...] having dialysis tomorrow. Please contact pt at [phone] documented in this encounter Plan of Treatment Upcoming Encounters Date Type Department Care Team (Late st Contact Info) Description 04/19/2025 2:30 PM EDT Office Visit [facility] [address] [place] [address] Andie Whitmore FNP [address] [place] [address] Scheduled Orders Name Type Priority Associated Diagnoses Order Schedule Transthoracic Echo (TTE) Complete Echocardiography Urgent ESRD (end stage renal disease) ([facility]) Primary hypertension Shortness of breath Expected: 06/29/2023 (Approximate), Expires: 06/29/2025 documented as of this encounter Visit Diagnoses Diagnosis ESRD (end stage renal disease) ([facility])- Primary End stage renal disease Primary hypertension Unspecified essential hypertension Shortness of breath documented in this encounter Additional Health Concerns Assessment Noted Time PHQ-9 Depression Total Score: 1 12/23/19 23 3:02 PM EDT documented as of this encounter Care Teams Second Cutter Relationship Specialty Start Date End Date Andie Whitmore FNP [address] [place] [address] PCP - General Family Medicine 11/04/21 [place] Restrepo MD [address] [place] [address] Urology 07/29/24 Juvenal [address] MD [address] [facility] [address] [place] [address] Nephrology 07/29/24 Kamini Chavarria MD [address] [place] [address] [place] [address] Neurology 07/29/24 [place] Bhagat DPM [address] [place] [address] [place] [address] Podiatry 07/29/24 documented as of this encounter
--- OUTSIDE RECORDS SUMMARY | 2025-04-18 12:13 | XMS_ITS | Encounter Summary ---
Author Organization [facility] Address [address] [address] Phone Care Team Providers Care Security Site Supervisor Name Role Phone Unavailable Primary Care Provider Unavailabl e Encounter Details Date Type Department Care Team (Late st Contact Info) Description 04/12/2025 Orders Only [facility] [address] [address] Juvenal Cr MD [address] [address] Social History Tobacco Use Types [...] Comments HEMOGLOBIN Routine 04/12/2025 3:00 AM EDT documented in this encounter Results * (ABNORMAL) Hemoglobin (04/12/2025 3:00 AM EDT) Hgb 10.7(L) 13.7 - 17.5 g/dL [facility] Hemoglobin x 3 32.1(L) 41.1 - 52.5 g/dL [facility] 04/12/2025 3:00 AM EDT 04/13/2025 1:05 PM EDT us Juvenal Cr MD LAB BLOOD ORDERABLES Final Re sult [facility] [address] [place] [address] documented in this encounter Visit Diagnoses Not on filedocumented in this encounter
[2025-04-18 14:12] LABS: Prostate Specific Antigen 2.76 ng/mL (<0.05-4.0)
== END 2025-04-18 10:13 | disposition home or self-care (01) ==
LOC: HO.HMGCLDS 10:12
PROVIDERS: PCP Registered Nurse; Visit Provider Urology
DX: Z12.5 Encounter for screening for malignant neoplasm of prostate (principal); C61 Malignant neoplasm of prostate; C79.51 Secondary malignant neoplasm of bone
CPT/HCPCS: 36415; 84153; 84403

== ENCOUNTER 2025-05-03 13:15 | Outpatient (AMB) | payer MEDICARE, MEDICAID, SELFPAY ==
--- NOTE | 2025-05-03 13:14 | A.OFFVIS_ITS ---
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 He is a patient of Dr. Whitmore. He is seen for the following urologic issues - urinary retention with elevated creatinine - prostate cancer Discussed recent labs Continue with abiraterone - month on and month off cycling Imaging from September showed activity only in prostate Could consider primary treatment 04/25 2.7, T 45 10/23 P 0.1 T 10 - continue abiraterone, PET/CT activity within prostate however no activity within bones all lymph nodes 05/24 GnRH, Prolia and DEXA scan - DEXA shows normal bone density 12/22 0.1 - bone scan stable no progression - healed sclerotic areas, CT scan stable no progression 08/24 <0.1 T 3 - GnRH - abiraterone 05/23 P 0.16, T <1 - abiraterone 02/20 P 0.15 T <1 - GnRH, abiraterone 01/21 CT shows stable metastatic prostate cancer Still making small amount of urine Urinary retention Incomplete bladder emptying Currently on dialysis Prostate cancer grade group 5 with metastatic disease - - Current therapy GnRH with antiandrogen 05/24 GnRH with antiandrogen and Prolia 08/24 GnRH with antiandrogen 02/20 GnRH with abiraterone - GnRH Prolia administered 08/23 GnRH therapy with abiraterone - GnRH and Prolia administered 01/20 GnRH therapy with abiraterone - GnRH and Prolia administered 04/21 - PSA 23 Prostate biopsy 06/21 Histologic type: Adenocarcinoma, acinar type Histologic grade: Flor score: - 5+4=9 (right apex), 4+5=9 (left mid, right mid), 4+4=8 (left apex), 4+3=7 (left base, right base) Number cores positive: 6 Total number of cores: 6 % of tissue involved: Greater than 95% Periprostatic fat inv.: Present Seminal vesicle inv.: Not identified Perineural inv.: Present LVI: Suspicious Staging - May 2021 - bone scan and CT scan with metastatic disease - 10/20 CT with sclerotic lesions spinal - 05/22 Bone Scan positive extensive spine - 11/21 CT scan - sclerotic lesions stable, stents in place [facility] Medical History (Updated 03/13/25 @ 08:39 by David Durham MD) COPD (chronic obstructive pulmonary disease) End stage chronic kidney disease ESRD (end stage renal disease) Anemia HTN (hypertension) Creatinine elevation Urinary retention History of upper gastrointestinal bleeding A-V fistula Fusion of lumbar spine Chronic kidney disease Urinary tract infection Enlarged prostate Kidney disease Elevated PSA Anemia Metabolic acidosis Bilateral hydronephrosis Hypocalcemia Acute anemia Acute kidney injury Surgical History History of fusion of cervical spine Hx of esophagogastroduodenoscopy History of transurethral resection of prostate S/P arteriovenous (AV) fistula creation History of hip replacement, total Social History Household Members: Family Household Members Other:: SISTER Housing: House Housing Other:: mobile home Do you presently have visiting nurse or other home services: No Alcohol intake: former Patient Tobacco Use Status: Former Tobacco user Tobacco use type: Cigarette Years Smoked: 50 e-Cigarette/Vaping Use: Former Use Substance Use Type: Marijuana service: No Current occupational status: disabled Review of Systems Const Denies chills and Denies fever(s) Card Reports no additional complaints and Denies syncope Resp Denies cough GI Denies abdominal pain and Denies heartburn Reports as per HPI and Denies change in libido Neuro Denies syncope Psych Denies change in libido Endo Denies change in libido Physical Exam Const General: cooperative, healthy appearing, comfortable and no acute distress Orientation/consciousness: patient oriented x3 HEENT Face and sinus: Yes normal facial exam Mouth: moist mucous membranes Neck Neck: Yes normal visual inspection, Yes full ROM and Yes trachea midline Chest Chest palpation & inspection: normal inspection of the chest Resp Effort & Inspection: normal respiratory effort, able to speak in complete sentences and no respiratory distress GI Inspection: Yes normal to inspection Back/Spine/Pelvis Cervical Spine: normal cervical lordosis Thoracic/Lumbar Spine: thoracic and lumbar spine normal to inspection Skin General skin exam: no rashes or lesions noted Neuro General: patient oriented x3, gait normal, tone normal and moves all extremities Extrem General: Yes normal to inspection and Yes capillary refill normal Assessment & Plan Assessment & Plan (1) Prostate cancer metastatic to bone: Comment: 05/2021 - Grade Group 5 Code(s): C61 - Malignant neoplasm of prostate; C79.51 - Secondary malignant neoplasm of bone Category: Medical Plan Six-month follow-up lab work Orders: Orders Testosterone, Total 6 Months C61 - Malignant neoplasm of prostate, C79.51 - Secondary malignant neoplasm of bone Prostate Specific Antigen 6 Months C61 - Malignant neoplasm of prostate, C79.51 - Secondary malignant neoplasm of bone Patient Instructions: This note is constructed using voice recognition software. While every effort has been made to ensure accuracy char conveyor tender cellar errors may have been included. Imaging studies, laboratory and physical exam results were discussed and reviewed in detail. No major barriers to patient understanding were identified. An opportunity to ask questions regarding the treatment plan was provided. All questions were answered. The patient expressed understanding and agreement with the above treatment plan. The patient is aware they should contact our office by phone for worsening of their current condition or the appearance of new urologic symptoms. Compliance is encouraged with any medications and followup testing that is ordered. It is a privilege to participate in the urologic care of your patient. If you have any questions or concerns regarding treatment for the above conditions, or other urologic issues, please do not hesitate to contact me. The office telephone contact is [phone]. Sincerely, Dr [place] Restrepo MD, [facility] - Urology Compassionate Specialist Care for the Genitourinary System Coding Level of Care Code Est Pt Level 3 (46055) Complex EM visit Add On G2211 Diagnoses Prostate cancer metastatic to bone C61; C79.51
--- OUTSIDE RECORDS SUMMARY | 2025-05-03 13:41 | XMS_ITS | Encounter Summary ---
Author Organization [employer] Address [address] [facility] [address] [place] [address] Care Team Providers Care Billing Spec Name Role Phone Andie Whitmore Primary Care Provider [phone] [place] Restrepo MD Unavailable [phone] MD Unavailable Kamini Chavarria MD Unavailable [place] Bhagat DPM Unavailable Humberto Blackburn MD Unavailable Brent Durham Unavailable Reason for Referral * Imaging (Urgent) - Closed Specialty Diagnoses / Procedures Referred By Contac t Referred To Contact Cardiology Diagnoses ESRD (end stage renal disease) ([facility]) Primary hypertension Shortness of breath Procedures Transthoracic Echo (TTE) Complete Andie Whitmore FNP [address] [place] [address] Phone: tel: fax: [facility] [address] [place] [address] Phone: tel: fax: Referral ID Status Reason Start Date Expiration Date V isits Requested Visits Authorized [id number] Closed Perform Procedure 06/29/2023 06/28/2024 1 1 Reason for Visit * Reason Onset Date Comments Call Back Request 06/21/2023 Encounter Details Date Type Department Care Team (Late st Contact Info) Description 06/21/2023 Telephone [facility] [address] [place] [address] Andie Whitmore FNP [address] [place] [address] Call Back Request Social History Tobacco Use Types Packs/Day Years Used Date Smoking Tobacco: Never Passive Smoke Exposure: Never Smokeless Tobacco: Never Alcohol Use Standard Drinks/Week Comments Never 0 (1 standard drink = 0.6 oz pur e alcohol) Depression Answer Date Recorded Patient Health Questionnaire-9 Score 1 12/22/2022 Housing Stability Answer Date Recorded What is your housing situation today? I have marvinansley morales 05/17/[address] you [...] order of the heart. 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 Patient [...] having dialysis tomorrow. Please contact pt at [phone] documented in this encounter Plan of Treatment Scheduled Orders Name Type Priority Associated Diagnoses Order Schedule Transthoracic Echo (TTE) Complete Echocardiography Urgent ESRD (end stage renal disease) ([facility]) Primary hypertension Shortness of breath Expected: 06/29/2023 (Approximate), Expires: 06/29/2025 documented as of this encounter Visit Diagnoses Diagnosis ESRD (end stage renal disease) ([facility])- Primary End stage renal disease Primary hypertension Unspecified essential hypertension Shortness of breath documented in this encounter Additional Health Concerns Assessment Noted Time PHQ-9 Depression Total Score: 1 12/23/19 23 3:02 PM EDT documented as of this encounter Care Teams Billing Spec Relationship Specialty Start Date End Date Myranda CORINNE Chaves [address] [place] [address] PCP - General Family Medicine 11/04/21 [place] Restrepo MD [address] [place] [address] Urology 07/29/24 Juvenal Cr MD [address] [facility] [address] [place] [address] Nephrology 07/29/24 Kamini Chavarria MD [address] [facility] [address] [place] [address] Neurology 07/29/24 [place] Bhagat DPM [address] [place] [address] Podiatry 07/29/24 Humberto Blackburn MD [address] [place] [address] Vascular Surgery 04/19/25 Brent Durham [address] [place] [address] Pulmonary Disease 04/19/25 documented as of this encounter
--- OUTSIDE RECORDS SUMMARY | 2025-05-03 13:41 | XMS_ITS | Clinical Summary ---
Author Organization [employer] Address [address] [facility] [address] [place] [address] Care Team Providers Care Traveling Freight Agent Name Role Phone Andie Whitmore Primary Care Provider [phone] Trevor Restrepo MD Unavailable [phone] Juvenal Cr MD Unavailable Kamini Chavarria MD Unavailable Winston Bhagat DPM Unavailable Humberto Blackburn MD Unavailable Brent Durham Unavailable Allergies No known active allergies Medications [...] a weed. Dx hypertension 1 kit 06/20/20 Active predniSONE (Deltasone) 5 MG tablet Take 2 tablets by mouth 1 (one) time each day. Takes with abiraterone 09/08/19 23 Active bumetanide (Bumex) 2 MG tabletIndications: Heart failure with mildly reduced ejection fraction (HFmrEF) (HCC) 2 mg 2 times daily. On Non-dialysis [...] DAILY 8 mL 3 12/27/19 25 Active metOLazone (Zaroxolyn) 5 MG tablet Take 5 mg by mouth. 01/09/20 25 026 Active Active Problems Problem Noted Date Diagnosed Date Chronic respiratory failure with hypoxia (CMS/HC C) 04/19/2025 Overview (04/19/2025): Following with [facility] Pulm - Dr. Durham. Oxygen tank & supplies prescribed through Pulm Assessment & Plan (04/19/2025 4:47 PM EDT): Continues with oxygen 2 L at night and during the day with exertion as needed Upcoming PFT appt scheduled to further eval possibility of COPD Restless legs syndrome 07/29/2024 Overview (07/29/2024): Following with Dr. Chavarria Continues with ropinerole 2-4mg nightly Hyperlipidemia 07/29/2024 Overview (07/29/2024): Continues on rosuvastatin 5mg nightly Continue lifestyle modification Lab Results Component Value Date CHOL 142 07/26/2024 CHOL 219 (H) 12/13/2023 TRIG 54 07/26/2024 TRIG 68 12/13/2023 HDL 49 07/26/2024 HDL 68 12/13/2023 LDLCHOLCAL 83 07/26/2024 LDLCHOLCAL 138 (H) 12/13/2023 Onychomycosis 03/02/2024 Overview (04/19/2025): Following with Podiatry - Dr. Bhagat at [place] Consult Jun 2024: Debridement of toenails 6-10, with plan to cont topical Jublia. RTC 3 months. Consult November 2024: Plan for Jublia. May also consider Vicks Vapor Rub Assessment & Plan (04/19/2025 4:39 PM EDT): Reports good response to Vicks Vapor Rub Healthcare maintenance 12/12/2023 Overview (12/12/2023): Optometry: CEE 11/10/23 (Dr. Mohr). Noted trace macular edema, follow up in 3 months PSA: hx prostate CA, following with [facility] Urology Heart failure with mildly re duced [...] 2,716 Following with Cards - Dr. Vicente Bumex on non-dialysis days Exacerbation w/ Hospitalization 08/04 - 08/07/[address] [facility] Exacerbation w/ Hospitalization 11/20-11/25/[address] [facility] ESRD on HD: communication with Dr. Cr [...] 02/18/2023 Overview (12/12/2023): Following with Dr. Restrepo ([facility] Urology) Hx of bilateral stent placement ESRD (end stage renal disease) 11/05/2021 Assessment & Plan (04/27/2023 2:16 PM EDT): -Hemodialysis MWF at [address] [place] [address] Dialysis (first shift) -Access: Left arm basilic vein transposition performed on 08/03/2021. -Mar 2023: fistulagram performed, [facility] Vascular Dr. Blackburn. Has been working well since Assessment & Plan (12/22/2022 8:12 PM EDT): -Hemodialysis MWF at [address] [place] [address] Dialysis -Access: Left arm basilic vein transposition performed on 08/03/2021. Have started to access fistula at dialysis -Left AVF w/ +thrill/+bruit Prostate cancer metastatic to bone 11/05/2021 Assessment & Plan (04/19/2025 4:41 PM EDT): Flor score ranging from 7 to 9. 10/05/21 cystoscopy with bilateral ureteral stent exchange performed by [facility] Urology Continue to follow with [facility] Urology - Dr. Restrepo Continue [facility] follow with [facility] Heme/Onc Previously on Bicalutamide 50mg PO daily through Urology, currently taking Abiraterone 01/24/23: cystoscopy with bilateral stent exchange November 2023: Bone scan stable, no progression Target 3 years hormone therapy then reduction to intermittent anti-androgen Apr 2024: DXA normal October 2024: consult with Dr. Restrepo - plan to cont abiraterone (every other month cycling) w/ f/up 6 mo Assessment & Plan (07/29/2024 10:41 PM EST): [place] score ranging from 7 to 9. 10/05/21 cystoscopy with bilateral ureteral stent exchange performed by [facility] Urology Continue to follow with [facility] Urology - Dr. Restrepo Continue to follow with [facility] Heme/Onc Previously on Bicalutamide 50mg PO daily through Urology, currently taking Abiraterone 01/24/23: cystoscopy with bilateral stent exchange November 2023: Bone scan stable, no progression Target 3 years hormone therapy then reduction to intermittent anti-androgen Apr 2024: DXA normal Assessment & Plan (04/27/2023 2:17 PM EDT): Flor score ranging from 7 to 9. 10/05/21 cystoscopy with bilateral ureteral stent exchange performed by [facility] Urology Continue to follow with [facility] Urology - Dr. Restrepo Continue to follow with [facility] Heme/Onc Previously on Bicalutamide 50mg PO daily through Urology, currently taking Abiraterone 01/24/23: cystoscopy with bilateral stent exchange Assessment & Plan (12/22/2022 8:13 PM EDT): Flor score ranging from 7 to 9. 10/05/21 cystoscopy with bilateral ureteral stent exchange performed by [facility] Urology Continue to follow with [facility] Urology - Dr. Restrepo Continue to follow with [facility] Heme/Onc Previously on Bicalutamide 50mg PO daily through Urology, currently taking Abiraterone Plan for stent exchange approx December 2022 Secondary hyperparathyroidism of renal origin Stage 5 chronic kidney disease (CMS/HCC) 021 HTN (hypertension) 04/17/2021 Assessment & Plan (04/19/2025 4:49 PM EDT): Elevated on initial and repeat in office, reports well controlled on some dialysis days. Following with both Renal and Cards. No med adjustments made today. Amlodipine 10mg daily (max dose) Hydralazine 100mg BID (max renal dose 200mg/day) Increase Bumex to 4 mg on nondialysis days (plus metolazone) -Lifestyle interventions and ED precautions reviewed Assessment & Plan (11/30/2024 4:55 PM EDT): [...] 08/01/2023 Urinary retention 02/18/2023 08/01/2023 Prostate cancer (CMS/HCC) 04/21/2021 Hypokalemia 04/21/2021 08/01/2023 Hypocalcemia 04/21/2021 08/01/2023 Acute pyelonephritis 04/17/2021 023 Encounters Date Type Department Care Team Description 04/19/2025 2:30 PM EDT Office Visit [facility] [address] [place] [address] Andie Whitmore FNP Chronic respiratory failure with hypoxia (CMS/HCC) (Primary Dx); Onychomycosis; Prostate cancer metastatic to bone (CMS/HCC); Epidermal inclusion cyst; Primary hypertension 04/19/2025 Travel 04/18/2025 Orders Only GENERIC EXTERNAL DATA DEPARTMENT Provider, Generic External Data 04/12/2025 Patient Outreach [facility] [address] [place] [phone] Andie Whitmore FNP Pre-visit Planning (SDOH screening completed on 02/11/25 ) 03/04/2025 Telephone [facility] [address] [place] [address] Andie Whitmore FNP Hospital Follow-up 2025 Patient Outreach [facility] [address] [place] [address] [phone] Andie Whitmore FNP Transition Of Care (Tcm) (HDF Unscheduled) 02/26/2025 Orders Only [facility] [address] [place] [address] ProviderMoo MD 02/18/2025 Telephone [facility] [address] [place], [place] [phone] Andie Whitmore FNP No Show 02/11/2025 Patient Outreach [facility] [address] [place], [place] [phone] Andie Whitmore FNP Pre-visit Planning (SDOH screening negative and Tobacco screening negative) 02/05/2025 2:15 PM EDT Office Visit [facility] [address] [place], [place] [phone] James Berkowitz MD Hypoxemia (Primary Dx) 02/05/2025 [...] Sign Reading Time Taken Comments Blood Pressure 164/70 04/19/2025 2:41 PM EDT Pulse 68 04/19/2025 2:41 PM EDT Temperature 36.8 C (98.2 F) 04/19/2025 2:41 PM EDT Respiratory Rate 20 04/19/2025 2:41 PM EDT Oxygen Saturation 96% 04/19/2025 3:01 PM EDT Inhaled Oxygen Concentration - - Weight 59.4 kg (131 lb) 04/19/2025 2:41 PM EDT Height 162 cm (5' 3.78 ) 04/19/2025 2:41 PM EDT Body Mass Index 22.64 04/19/2025 2:41 PM EDT Plan of Treatment Health Maintenance Due [...] Comments TESTOSTERONE, TOTAL, MALES (ADULT), IA Routine 04/18/2025 10:21 AM EDT PSA, TOTAL Routine 04/18/2025 10:21 AM EDT ECG 12-LEAD Routine 02/25/2025 12:35 PM EDT [...] * (ABNORMAL) Testosterone, Total, males (Adult), IA (04/18/2025 10:21 AM EDT) [facility] Testosterone, Total 45(A) 250 - 1100 ng/dL [facility] Comment:Men with clinically significant hypogonadalsymptoms and testosterone values repeatedly inthe range of the 200-300 ng/dL or less, maybenefit from testosterone treatment afteradequate risk and benefits counseling.For additional information, please refer tohttp://education.[employer]/faq/[email or web address](This link is being provided for informational/educational purposes only.)This test was developed and its analytical performancecharacteristics have been determined by [facility] [place], [place]. It hasnot been cleared or approved by the U.S. Food and DrugAdministration. This assay has been validated pursuantto the CLIA regulations and is used for clinicalpurposes.THIS TEST WAS PERFORMED AT:[employer] [place] [address]MUIOCFO W. MASON,MD,PHD 04/18/2025 10:2 1 AM EDT 04/18/2025 1:16 PM EDT Generic External Data Provider LAB BLOOD ORDERAB LES Final Result Performing Organization Address [facility]/ZIP Co de Phone Number [facility] [address] [place] [phone] * PSA,Total (04/18/2025 10:21 AM EDT) Prostate Specific Antigen 2.76 <0.05 - 4.0 ng/mL [facility] Comment:PSA methodology: [place] i ChemiluminescentMicroparticle Immunoassay (CMIA) 04/18/2025 10:2 1 AM EDT 04/18/2025 1:16 PM EDT Generic External Data Provider LAB BLOOD ORDERAB LES Final Result Performing Organization Address [facility]/ZIP Co de Phone Number [facility] [address] [place] [phone] * ECG 12 lead (02/25/2025 12:35 PM EDT) us Historical Provider ECG ORDERABLES Final Res ult * CT Chest w/o Contrast (02/02/2025 4:08 PM EDT) Anatomical Region Laterality Modality Body, Chest Computed Tomogra phy 02/02/2025 4:08 PM EDT Narrative 02/02/2025 4:11 PM EDT [address] [address] [address] Scan Report Signed Patient: Darwin Stahl MR#: [id number] : 1960 Acct:[id number] Age/Sex: 64 / M ADM Date: 02/01/25 Loc: [facility] 444-[address]: Douglas Lagunas MD Ordering Physician: Zuhair Batista Date of Service: 02/01/25 Procedure(s): CT chest wo IV con Accession Number(s): [id number] cc: Zuhair Batista; Andie Whitmore [facility] Report Number: [id number]: Total DLP = 206.00 mGy-cm CLINICAL HISTORY: [...] 02/02/25 1610 DD/ 1608 TD/TT: 02/02/25 1608 Transmission And Protection Engineer: Procedure Note Donotuseinterpreter, Image - 02/02/[address] [address] [address] Scan Report Signed Patient: Emilia Stahl#: [id number] : 1Acct:[id number] Age/Sex: 64 / MADM Date: 02/01/25 Loc: [facility] 444-[address]: Duoglas Lagunas MD Ordering Physician: Zuhair Batista Date of Service: 02/01/25 Procedure(s): CT chest wo IV con Accession Number(s): [id number] cc: Zuhair Batista; Andie Whitmore AIRFRAME AND POWERPLANT TECHNICIAN Report Number: [id number]: Total DLP = 206.00 mGy-cm CLINICAL HISTORY: [...] 02/02/25 1610 DD/ 1608 TD/TT: 02/02/25 1608 Transmission And Protection Engineer: us [facility] External Provider IMG CT PROCEDURES Edited Result - Final * (ABNORMAL) High Sensitivity Troponin I (02/01/2025 2:47 PM EDT) Only the most recent of2 resultswithin the time period is included. TROPONIN I HIGH SENSITIVITY 170.0(HH) <3.5 - 35.0 ng/L [facility] Comment:Critical value for t est(s): TROP Results called to and readback by: ROGER Person calling: HANK Date: 02/01/25 Time:1537The [place] high sensitivity Troponin-I results should beused in conjunction with other diagnostic information suchas ECG, clinical observations and information, and patientsymptoms to aid in the diagnosis of NE. 02/01/2025 2:47 PM EDT 02/01/2025 2:52 PM EDT Generic External Data Provider LAB BLOOD ORDERAB LES Final Result Performing Organization Address City/[facility]/ZIP Co de Phone Number [facility] [address] [place] [phone] * Lactic Acid (02/01/2025 12:16 PM EDT) Pathologist [facility] Lactic Acid 1.2 0.5 - 2.0 mmol/L [facility] 02/01/2025 12:1 6 PM EDT 02/01/2025 12:20 PM EDT Generic External Data Provider LAB BLOOD ORDERAB LES Final Result Performing Organization Address City/[facility]/ZIP Co de Phone Number [facility] [address] [place] [phone] * XR Chest 2 Views (02/01/2025 12:13 PM EDT) Anatomical Region Laterality Modality Chest Radiographic Debra ging 02/01/2025 12:1 3 PM EDT Narrative 02/01/2025 12:14 PM EDT [address] [address] XRay Report Signed Patient: Darwin Stahl MR#: [id number] : 1960 Acct:[id number] Age/Sex: 64 / M ADM Date: 02/01/25 Loc: .ED Attending Dr: Ordering Physician: Brianna Mckeon Date of Service: 02/01/25 Procedure(s): XR chest 2V Accession Number(s): [id number] cc: Brianna Mckeon; Andie Whitmore CLINICAL HISTORY: [...] signed by Dalton Lopez MD in OV> 02/01/25 1214 DD/ 1213 TD/TT: 02/01/25 1213 Transmission And Protection Engineer: Procedure Note Donotdoeinterpreter, Image - 02/01/[address] [address] XRay Report Signed Patient: Darwin StahlMR#: [id number] : 1960cct:[id number] Age/Sex: 64 / MADM Date: 02/01/25 Loc: .ED Attending Dr: Ordering Physician: Brianna Mckeon Date of Service: 02/01/25 Procedure(s): XR chest 2V Accession Number(s): [id number] cc: Brianna Mckeon; Andie Whitmore CLINICAL HISTORY: [...] signed by Dalton Lopez MD in OV> 02/01/25 1214 DD/ 1213 TD/TT: 02/01/25 1213 Transmission And Protection Engineer: [facility] External Provider IMG XR PROCEDURES Edited Result - Final * (ABNORMAL) VENOUS BLOOD GAS (02/01/2025 11:50 AM EDT) VBG pH 7.57(H) 7.32 - 7.43 [facility] Comment:METER #: [id number] additional_comment: Cb hernaso VBG PCO2 35 mmHg [facility] Comment:METER #: [id number] additional_comment: Cb hernaso VBG PO2 38 mmHg [facility] Comment:METER #: [id number] additional_comment: Cb hernaso VBG Base Excess 10.2 mmol/L [facility] Comment:METER #: [id number] additional_comment: Cb hernaso VBG HCO3 32(H) 22 - 26 mmol/L [facility] Comment:METER #: [id number] additional_comment: Cb hernaso O2 Sat, Rober 61.0 % [facility] Comment:METER #: [id number] additional_comment: Cb hernaso 02/01/2025 11:5 0 AM EDT 02/01/2025 11:54 AM EDT Generic External Data Provider LAB BLOOD ORDERAB LES Final Result [facility] [address] [place] [phone] * (ABNORMAL) SARS-CoV-2 RNA, Influenza A/B, and RSV RNA, Ql NAAT (02/01/2025 11:44 AM EDT) Influenza A PCR POSITIVE(A) Negative [facility] Influenza B PCR NEGATIVE Negative [facility] Resp Syncy Virus RNA Qual PCR NEGATIVE Negative [facility] SARS COV2 PCR NEGATIVE Negative [facility] Comment:All test results mus t be [...] use by authorized laboratories.Testing performed on the [employer] GeneXpert utilizingreal-time RT-PCR.All SARS CoV2 and positive influenza A/B results arereported to [facility]. 02/01/2025 11:4 4 AM EDT 02/01/2025 11:49 AM EDT us Generic External Data Provider LAB MICROBIOLOGY - GENERAL ORDERABLES Final Result [facility] [address] [place] [phone] * (ABNORMAL) CBC auto differential (02/01/2025 11:44 AM EDT) [facility] White Blood Count 5.4 4.8 - 10.8 X10*3/uL [facility] Red Blood Count 4.23(L) 4.60 - 5.80 X10*6/uL [facility] Hemoglobin 11.9(L) 14.0 - 18.0 g/dl [facility] Hematocrit 35.7(L) 42.0 - 52.0 % [facility] Mean Corpuscular Volume 84.4 80.0 - 98.0 fL [facility] Mean Corpuscular Hemoglobin 28.1 27.0 - 33.0 pg [facility] Mean Corpuscular HGB Conc 33.3 31.0 - 36.0 g/dl [facility] Red Cell Distribution Width 17.3(H) 11.0 - 16.0 % [facility] Platelet Count 105(L) 160 - 400 X10*3/uL [facility] Comment:Confirmed by smear.T est was verified by repeat analysis. Neutrophils Percent Auto 83.4(H) 45 - 73 % [facility] Imm Gran Pct Auto 0.4 0.0 - 0.4 % [facility] Lymphocytes Percent Auto 5.2(L) 20 - 40 % [facility] Monocytes Percent Auto 9.7 2 - 11 % [facility] Eosinophils Percent Auto 0.6 0 - 4 % [facility] Basophils Percent Auto 0.7 0 - 2 % [facility] NRBC Pct Auto 0.0 0.0 - 0.2 /100WBC [facility] Neutrophils Absolute Auto 4.5 2.0 - 8.3 x10*3/uL [facility] Imm Gran Abs Auto 0.02 0.00 - 0.03 X10*3/uL [facility] Lymphocytes Absolute Auto 0.3(L) 1.2 - 4.9 X10*3/uL [facility] Monocytes Absolute Auto 0.5 0.1 - 1.2 X10*3/uL [facility] Eosinophils Absolute Auto 0.0 0.0 - 0.4 X10*3/uL [facility] Basophils Absolute Auto 0.0 0.0 - 0.2 X10*3/uL [facility] NRBC Abs Auto 0.000 0.0 - 0.012 X10*3/uL [facility] 02/01/2025 11:4 4 AM EDT 02/01/2025 11:49 AM EDT us Generic External Data Provider LAB BLOOD ORDERAB LES Final Result [facility] [address] [place] [phone] [phone] * (ABNORMAL) B Type Natriuretic Peptide (BNP) (02/01/2025 11:44 AM EDT) Pathologist [facility] B Type Natriuretic Peptide 9,070(H) <100 pg/mL [facility] 02/01/2025 11:4 4 AM EDT 02/01/2025 11:49 AM EDT Generic External Data Provider LAB BLOOD ORDERAB LES Final Result Performing Organization Address [facility] Co de Phone Number [facility] [address] [place] [phone] * Magnesium (02/01/2025 11:44 AM EDT) [facility] Magnesium 2.0 1.6 - 2.6 mg/dL [facility] 02/01/2025 11:4 4 AM EDT 02/01/2025 11:49 AM EDT Generic External Data Provider LAB BLOOD ORDERAB LES Final Result Performing Organization Address [facility] de Phone Number [facility] [address] [place] [phone] * (ABNORMAL) Hepatic Function Panel (02/01/2025 11:44 AM EDT) [facility] Bilirubin, Total 1.3(H) 0.0 - 1.0 mg/dL [facility] Bilirubin, Direct 0.5 0.0 - 0.5 mg/dL [facility] Aspartate Amino Transferase 59(H) 5 - 37 U/L [facility] Alanine Aminotransferase 22 0 - 40 U/L [facility] Total Protein 7.4 6.5 - 8.0 g/dL [facility] Albumin Level 4.5 3.5 - 5.0 g/dL [facility] Alkaline Phosphatase 230(H) 39 - 117 U/L [facility] 02/01/2025 11:4 4 AM EDT 02/01/2025 11:49 AM EDT us Generic External Data Provider LAB BLOOD ORDERAB LES Final Result Performing Organization Address City/[facility]/ZIP Co de Phone Number [facility] [address] [place] [address] [phone] * (ABNORMAL) Basic Metabolic Panel (02/01/2025 11:44 AM EDT) Sodium 135 135 - 145 mmol/L [facility] Potassium 3.6 3.3 - 5.1 mmol/L [facility] Chloride 93(L) 96 - 108 mmol/L [facility] Carbon Dioxide 25 22 - 29 mmol/L [facility] Anion Gap 21(H) 12 - 20 [facility] Urea Nitrogen (BUN) 22(H) 9 - 16 mg/dL [facility] Creatinine, Serum 3.03(H) 0.5 - 1.4 mg/dL [facility] Creatinine Clr Calc Pharmacy 20.6 [facility] Comment:eGFR (calculated fro m the MDRD study equation) and eCrCl(calculated from the Cockcroft-Gault equation) are based ondifferent parameters and may not yield comparable results.If eCrCl result is absurd, please check patient'sheight/weight. Estimated Glomerular Filt Rate 21 [facility] Comment:Chronic Kidney Disea se: Estimated GFR < 60 mL/min/1.72p2Jbabas Kidney Disease: Estimated GFR < 15 mL/min/1.73m2 Glucose 93 60 - 115 mg/dL [facility] Calcium 9.9 8.4 - 10.2 mg/dL [facility] 02/01/2025 11:4 4 AM EDT 02/01/2025 11:49 AM EDT us Generic External Data Provider LAB BLOOD ORDERAB LES Final Result Performing Organization Address City/[facility]/ZIP Co de Phone Number [facility] [address] [place] [phone] * Lipid Panel, Standard (07/26/2024 11:25 AM EST) Triglycerides 54 <150 mg/dL [facility] Comment:Desirable Triglyceri de: less than 150 mg/dLBorderline High Triglyceride 150-199 mg/dLHigh Triglyceride: 200-499 mg/dLVery High Triglyceride: greater than or equal to 5OO mg/dL Cholesterol 142 <200 mg/dL [facility] Comment:Desirable Cholestero l: less than 200 mg/dLBorderline High Cholesterol: 200-239 mg/dLHigh Cholesterol: greater than 239 mg/dL LDL Cholesterol Calculated 83 <100 mg/dL [facility] Comment:Desirable LDL: less than 100 mg/dLNear Optimal/Above Optimal LDL: 110- 129 mg/dLBorderline High LDL: 130-159 mg/dLHigh LDL: 160-189 mg/dLVery High LDL: greater than or equal to 190 mg/dL HDL Cholesterol 49 >40 mg/dL [facility] Comment:Desirable HDL: great er than 40 mg/dL Note: This HDL assay may give artificially low results in patients with liver disease. 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 Artisan Expl anation Advance Directives and Living Will 03/06/2025 9:37 AM Health Care Proxy [facility] Care Teams Traveling Freight Agent Relationship Specialty Start Date End Date Andie Whitmore FNP [address] [place] [address] PCP - General Family Medicine 11/04/21 Trevor Restrepo MD [address] [place] [address] Urology 07/29/24 Juvenal Cr MD [address] [facility] [address] [place] [phone] Nephrology 07/29/24 Kamini Chavarria MD [address] [place] [address] [address] [place] [address] Neurology 07/29/24 Winston Bhagat DPM [address] [place] [address] [facility] [address] [place] [place] [address] Podiatry 07/29/24 Humberto Blackburn MD [address] [place], [place] [phone] Vascular Surgery 04/19/25 Brent Durham [address] [place] [address] Pulmonary Disease 04/19/25
--- OUTSIDE RECORDS SUMMARY | 2025-05-03 13:42 | XMS_ITS | Encounter Summary ---
Author Organization [employer] Address 75 [facility] 7t [place] [address] Care Team Providers Care Powder Loader Name Role Phone Andie Whitmore Primary Care Provider Trevor Restrepo MD Unavailable Juvenal Cr MD Unavailable [phone] Kamini Chavarria MD Unavailable Winston Bhagat DPM Unavailable Humberto Blackburn MD Unavailable Brent Durham Unavailable Encounter Details Date Type Department Care Team (Late st Contact Info) Description 12/21/[address] [facility] [address] [place], [place] [phone] Andie Whitmore FNP 505 [place] [address] Social History Tobacco Use Types Packs/Day Years [...] the past 12 months, has t he [employer], gas, oil or water company threatened to [...] documented as of this encounter Care Teams Powder Loader Relationship Specialty Start Date End Date Andie Whitmore FNP [address] [place] [address] PCP - General Family Medicine 11/04/21 Trevor Restrepo MD [address] [facility] [address] [address] [place] [address] Urology 07/29/24 Juvenal Cr MD 100 [facility] 200 [place] [address] Nephrology 07/29/24 Kamini Chavarria MD [address] [place] [address] Dr Lara [address] [place] [address] Neurology 07/29/24 Winston Bhagat DPM [address] [place] [address] Dr [facility] 140 [place], [place] [phone] Podiatry 07/29/24 Humberto Blackburn MD [address] [place], [place] [phone] Vascular Surgery 04/19/25 Brent Durham [address] [facility] [place] [address] Pulmonary Disease 04/19/25 documented as of this encounter
--- OUTSIDE RECORDS SUMMARY | 2025-05-03 13:42 | XMS_ITS | Encounter Summary ---
Author Organization [employer] Address 75 [facility] 7t [place] [address] Care Team Providers Care Electric Motor And Generator Assembler Name Role Phone Andie Whitmore Primary Care Provider [phone] Trevor Restrepo MD Unavailable [phone] Juvenal Cr MD Unavailable [phone] Kamini Chavarria MD Unavailable Winston Bhagat DPM Unavailable [phone] Humberto Blackburn MD Unavailable Brent Durham Unavailable Encounter Details Date Type Department Care Team (Late st Contact Info) Description 02/26/2025 Orders Only [facility] 505 [place], [place] [phone] Provider, MD Moo Social History Tobacco Use Types Packs/Day Years [...] documented as of this encounter Care Teams Electric Motor [employer] Generator Assembler Relationship Specialty Start Date End Date Andie Whitmore FNP 230 [place] [address] PCP - General Family Medicine 11/04/21 Trevor Restrepo MD [address] [place] [address] Urology 07/29/24 Juvenal Cr MD 100 [facility] 200 [place] [address] Nephrology 07/29/24 Kamini Chavarria MD [address] [place] [address] Dr Lara 140 [place] [address] Neurology 07/29/24 Winston Bhagat DPM [address] [place] [address] Dr Lara [address] [place] [address] Podiatry 07/29/24 Humberto Blackburn MD [address] [place] [address] Vascular Surgery 04/19/25 Brent Durham [address] [place] [address] Pulmonary Disease 04/19/25 documented as of this encounter
--- OUTSIDE RECORDS SUMMARY | 2025-05-03 13:42 | XMS_ITS | Clinical Summary ---
Author Organization 175 [facility] Address 175 [place] [address] Phone Care Team Providers Care Circulation Tender Name Role Phone Andie Whitmore medical lab director Provider Allergies No known active allergies Medications [...] disease 03/05/2024 ESRD (end stage renal disease) ([facility] V24, [facility] V28) 03/02/2024 Heart failure with mildly re duced ejection fraction ([facility] V24, [facility] V28) 03/02/2024 HTN (hypertension) 03/02/2024 Obstructive uropathy 03/02/2024 Onychauxis 03/02/2024 Onychomycosis 03/02/2024 Prostate cancer metastatic t o bone ([facility] V24, [facility] V28) 03/02/2024 Secondary hyperparathyroidism of renal origin ([facility] [place] V24) 03/02/2024 Encounters Date Type Department Care Team Description 02/25/2025 6:01 AM EDT - 02/27/2025 2:22 PM EDT Hospital Encounter [facility] [address] [place] [address] Juvenal Feng MD [place], MD [...] Health Maintenance Due Date Last Done Comments Colorectal Cancer Screening: Colonoscopy 1960 Pneumococcal Vaccine: 50+ Years (1 of 2 - PCV) 02/29/1980 RSV Immunization Adult Patients (1 - Risk 60-74 years 1-dose series) 2021 HIV Screening 02/24/2024 Hepatitis C Screening 02/24/2024 [...] K/mcL LAB HEMETOLOGY METHOD 02/27/2025 6:43 AM [facility] RBC 3.40(L) 4.50 - 5.50 M/mcL LAB HEMETOLOGY METHOD 02/27/2025 6:43 AM [facility] Hemoglobin 9.3(L) 13.5 - 17.5 g/dL LAB HEMETOLOGY METHOD 02/27/2025 6:43 AM [facility] Hematocrit 30.3(L) 42.0 - 54.0 % LAB HEMETOLOGY METHOD 02/27/2025 6:43 AM [facility] MCV 89.4 79.0 - 98.0 FL LAB HEMETOLOGY METHOD 02/27/2025 6:43 AM [facility] MCH 27.4 27.0 - 32.0 pcg LAB HEMETOLOGY METHOD 02/27/2025 6:43 AM [facility] MCHC 30.7(L) 32.0 - 37.0 g/dL LAB HEMETOLOGY METHOD 02/27/2025 6:43 AM [facility] RDW 19.1(H) 11.0 - 15.0 % LAB HEMETOLOGY METHOD 02/27/2025 6:[address] [facility] Platelets 146 130 - 400 K/mcL LAB HEMETOLOGY METHOD 02/27/2025 6:[address] [facility] MPV 12.5(H) 7.0 - 11.0 FL LAB HEMETOLOGY METHOD 02/27/2025 6:[address] [facility] NRBC 0.0 <1.0 % LAB HEMETOLOGY METHOD 02/27/2025 6:[address] [facility] NRBC Absolute 0.00 <0.10 K/mcL LAB HEMETOLOGY METHOD 02/27/2025 6:[address] [facility] Blood Venous blood specimen / Unknown Venipuncture / Unknown 02/27/2025 5:16 AM EDT 02/27/2025 6:19 AM EDT Joshua Rudd MD LAB BLOOD ORDERABLE S Final Result [facility] [address] [place] [address], * (ABNORMAL) Phosphorus (02/27/2025 5:16 AM EDT) Phosphorus 7.6(H) 2.5 - 4.5 mg/dL LAB CHEMISTRY METHOD 02/27/2025 7:[address] [facility] Comment:Results verified by repeat testing Blood Venous blood specimen / Unknown Venipuncture / Unknown 02/27/2025 5:16 AM EDT 02/27/2025 6:20 AM EDT us Joshua Rudd MD LAB BLOOD ORDERABLE S Final Result [facility] [address] [place] [address], [place] [phone] * Magnesium (02/27/2025 5:16 AM EDT) [facility] Magnesium 2.2 1.9 - 2.6 mg/dL LAB CHEMISTRY METHOD 02/27/2025 7:[address] [facility] Blood Venous blood specimen / Unknown Venipuncture / Unknown 02/27/2025 5:16 AM EDT 02/27/2025 6:20 AM EDT Joshua Rudd MD LAB BLOOD ORDERABLE S Final Result [facility] [address] [place] [address], [place] [phone] * (ABNORMAL) Basic metabolic panel (02/27/2025 5:16 AM EDT) Only the most recent of2 resultswithin the time period is included. [facility] Sodium 132(L) 133 - 145 mmol/L LAB CHEMISTRY METHOD 02/27/2025 7:26 AM [facility] Potassium 4.8 3.5 - 5.5 mmol/L LAB CHEMISTRY METHOD 02/27/2025 7:26 AM [facility] Chloride 94(L) 96 - 110 mmol/L LAB CHEMISTRY METHOD 02/27/2025 7:26 AM [facility] CO2 31 21 - 32 mmol/L LAB CHEMISTRY METHOD 02/27/2025 7:26 AM [facility] Anion Gap 7 3 - 11 LAB CHEMISTRY METHOD 02/27/2025 7:26 AM [facility] Glucose 90 70 - 100 mg/dL LAB CHEMISTRY METHOD 02/27/2025 7:26 AM [facility] BUN 63(H) 5 - 25 mg/dL LAB CHEMISTRY METHOD 02/27/2025 7:[address] [facility] Creatinine 5.64(H) 0.70 - 1.30 mg/dL LAB CHEMISTRY METHOD 02/27/2025 7:26 AM [facility] eGFR 11(L) >=60 mL/min/1. 73m2 LAB CHEMISTRY METHOD 02/27/2025 7:26 AM [facility] Comment:Calculation based on the Chronic Kidney Disease Epidemiology Collaboration (CKD-EPI) equation refit without adjustment for race. BUN/Creatinine Ratio 11.2 LAB CHEMISTRY METHOD 02/27/2025 7:26 AM [facility] Calcium 9.2 8.5 - 10.5 mg/dL LAB CHEMISTRY METHOD 02/27/2025 7:26 AM [facility] Blood Venous blood specimen / Unknown Venipuncture / Unknown 02/27/2025 5:16 AM EDT 02/27/2025 6:20 AM EDT Joshua Rudd MD LAB BLOOD ORDERABLE S Final Result [facility] [address] [place] [address], * (ABNORMAL) CBC auto differential (02/26/2025 5:18 AM EDT) WBC 10.2 4.8 - 10.8 K/mcL LAB HEMETOLOGY METHOD 02/26/2025 7:09 AM [facility] RBC 3.30(L) 4.50 - 5.50 M/mcL LAB HEMETOLOGY METHOD 02/26/2025 7:09 AM [facility] Hemoglobin 9.2(L) 13.5 - 17.5 g/dL LAB HEMETOLOGY METHOD 02/26/2025 7:09 AM [facility] Hematocrit 29.8(L) 42.0 - 54.0 % LAB HEMETOLOGY METHOD 02/26/2025 7:09 AM [facility] MCV 89.2 79.0 - 98.0 FL LAB HEMETOLOGY METHOD 02/26/2025 7:09 AM [facility] MCH 27.5 27.0 - 32.0 pcg LAB HEMETOLOGY METHOD 02/26/2025 7:09 AM [facility] MCHC 30.9(L) 32.0 - 37.0 g/dL LAB HEMETOLOGY METHOD 02/26/2025 7:09 AM [facility] RDW 19.1(H) 11.0 - 15.0 % LAB HEMETOLOGY METHOD 02/26/2025 7:09 AM [facility] Platelets 141 130 - 400 K/mcL LAB HEMETOLOGY METHOD 02/26/2025 7:09 AM [facility] MPV 11.0 7.0 - 11.0 FL LAB HEMETOLOGY METHOD 02/26/2025 7:09 AM [facility] NRBC 0.0 <1.0 % LAB HEMETOLOGY METHOD 02/26/2025 7:09 AM [facility] NRBC Absolute 0.00 <0.10 K/mcL LAB HEMETOLOGY METHOD 02/26/2025 7:09 AM [facility] Neutrophils Relative 84.7 % LAB HEMETOLOGY METHOD 02/26/2025 7:09 AM [facility] Lymphocytes Relative 8.0 % LAB HEMETOLOGY METHOD 02/26/2025 7:09 AM [facility] Monocytes Relative 5.6 % LAB HEMETOLOGY METHOD 02/26/2025 7:09 AM [facility] Eosinophils Relative 0.3 % LAB HEMETOLOGY METHOD 02/26/2025 7:09 AM [facility] Basophils Relative 0.6 % LAB HEMETOLOGY METHOD 02/26/2025 7:[address] [facility] Immature Granulocytes Relative 0.8 % LAB HEMETOLOGY METHOD 02/26/2025 7:[address] [facility] Neutrophils Absolute 8.67(H) 1.50 - 7.00 K/mcL LAB HEMETOLOGY METHOD 02/26/2025 7:[address] [facility] Lymphocytes Absolute 0.82(L) 1.00 - 5.00 K/mcL LAB HEMETOLOGY METHOD 02/26/2025 7:[address] [facility] Monocytes Absolute 0.57 0.20 - 1.00 K/mcL LAB HEMETOLOGY METHOD 02/26/2025 7:[address] [facility] Eosinophils Absolute 0.03 0.00 - 0.50 K/mcL LAB HEMETOLOGY METHOD 02/26/2025 7:[address] [facility] Basophils Absolute 0.06 0.00 - 0.20 K/mcL LAB HEMETOLOGY METHOD 02/26/2025 7:[address] [facility] Immature Granulocytes Absolute 0.08(H) 0.00 - 0.03 K/mcL LAB HEMETOLOGY METHOD 02/26/2025 7:[facility] Blood Venous blood specimen / Unknown Venipuncture / Unknown 02/26/2025 5:18 AM EDT 02/26/2025 6:39 AM EDT us Cassi SHELDON LAB BLOOD ORDERABLES Final Result [facility]) [facility] [address] [place] [address], * (ABNORMAL) Troponin I high sensitivity (NOW and then in 1 hour) (02/25/2025 7:40 AM EDT) Only the most recent of2 resultswithin the time period is included. High Sensitivity Troponin I 93(H) <=79 ng/L LAB CHEMISTRY METHOD 02/25/2025 8:[address] [facility] Blood Venous blood specimen / Unknown Venipuncture / Unknown 02/25/2025 7:40 AM EDT 02/25/2025 7:[address] [facility] - 02/25/2025 8:22 AM EDT High levels of biotin in samples may falsely decrease hsTroponin values. Use caution when interpreting hsTroponin results in patients taking biotin who exhibit renal impairment (eGFR <60) or in patients taking more than 20 mg/day of biotin. us Bernie Bergeron MD LAB BLOOD ORDERABLES Final Res ult [facility] [address] [place] [address], * XR Chest 1 View (02/25/2025 7:35 [...] Signed Date: 02/25/2025 08:09 ET Workstation ID: [id number] Transcribed By: Self Edit Transcribed Date: 02/25/2025 [...] Signed Date: 02/25/2025 08:09 ET Workstation ID: [id number] Transcribed By: Self Edit Transcribed Date: 02/25/2025 08:09 ET us Bernie Bergeron MD IMG XR PROCEDURES Final Result * Hepatitis B surface antigen with reflex to confirmation (02/25/2025 6:27 AM EDT) [facility] Hepatitis B Surface Ag Negative Negative LAB CHEMISTRY METHOD 02/25/2025 5:[address] [facility] Blood Venous blood specimen / Unknown Venipuncture / Unknown 02/25/2025 6:27 AM EDT 02/25/2025 6:[address] [facility] - 02/25/2025 5:13 PM EDT Over the counter supplements containing high doses of biotin may interfere with this assay. If interference is suspected, patients shoud be retested after refraining from biotin supplements for 72 hours. us Linn Miller MD LAB BLOOD ORDERABLES Final Res ult [facility] [address] [place] [address], * (ABNORMAL) Procalcitonin (02/25/2025 6:27 AM EDT) Pathologist [facility] Procalcitonin 1.72(H) <=0.16 ng/mL LAB CHEMISTRY METHOD 02/25/2025 1:[address] [facility] Blood Venous blood specimen / Unknown Venipuncture / Unknown 02/25/2025 6:27 AM EDT 02/25/2025 6:[address] [facility] - 02/25/2025 1:44 PM EDT [...] Cassi SHELDON LAB BLOOD ORDERABLES Final Result [facility] [address] [place] [address], * Hepatitis B surface antibody quantitative (02/25/2025 6:27 AM EDT) Hepatitis B Surface Ab Negative Negative LAB CHEMISTRY METHOD 02/25/2025 5:[address] [facility] Hepatitis B Surface Ab Quantitative <3.1 mIU/mL LAB CHEMISTRY METHOD 02/25/2025 5:[address] [facility] Blood Venous blood specimen / Unknown Venipuncture / Unknown 02/25/2025 6:27 AM EDT 02/25/2025 6:[address] [facility] - 02/25/2025 5:27 PM EDT >=10 mIU/mL is considered to be consistent with immunity. Linn Miller MD LAB BLOOD ORDERABLES Final Res ult Performing Organization Address City/[facility]/ZIP Co de Phone Number [facility] [address] [place] [address], [place] [phone] * (ABNORMAL) BNP (02/25/2025 6:27 AM EDT) [facility] BNP 2,343(H) <=100 pcg/mL LAB CHEMISTRY METHOD 02/25/2025 7:[address] [facility] Blood Venous blood specimen / Unknown Venipuncture / Unknown 02/25/2025 6:27 AM EDT 02/25/2025 6:32 AM EDT Bernie Bergeron MD LAB BLOOD ORDERABLES Final Res ult Performing Organization Address [facility]/ZIP Co de Phone Number [facility] [address] [place] [address], [place] [phone] * (ABNORMAL) Blood gas, venous (02/25/2025 6:27 AM EDT) Pathologist [facility] pH, Rober 7.42 7.32 - 7.42 pH 02/25/2025 6:[address] [facility] pCO2, Rober 39(L) 41 - 51 mmHg 02/25/2025 6:[address] [facility] pO2, Rober 51(H) 25 - 40 mmHg 02/25/2025 6:[address] [facility] HCO3, Venous 25.2 22.0 - 26.0 mmol/L 02/25/2025 6:[address] [facility] O2 Sat, Rober 82.8 % 02/25/2025 6:[address] [facility] Base Excess, Rober 0.8 -2.0 - 2.0 mmol/L 02/25/2025 6:35 AM [facility] Blood Venous blood specimen / Unknown Venipuncture / Unknown 02/25/2025 6:27 AM EDT 02/25/2025 6:32 AM EDT us Bernie Bergeron MD LAB BLOOD ORDERABLES Final Res ult [facility] [address] [place] [address], * (ABNORMAL) Comprehensive metabolic panel (02/25/2025 6:27 AM EDT) Sodium 133 133 - 145 mmol/L LAB CHEMISTRY METHOD 02/25/2025 7:16 AM [facility] Potassium 5.7(H) 3.5 - 5.5 mmol/L LAB CHEMISTRY METHOD 02/25/2025 7:16 AM [facility] Chloride 98 96 - 110 mmol/L LAB CHEMISTRY METHOD 02/25/2025 7:16 AM [facility] CO2 25 21 - 32 mmol/L LAB CHEMISTRY METHOD 02/25/2025 7:16 AM [facility] Anion Gap 10 3 - 11 LAB CHEMISTRY METHOD 02/25/2025 7:16 AM [facility] Glucose 133(H) 70 - 100 mg/dL LAB CHEMISTRY METHOD 02/25/2025 7:16 AM [facility] BUN 86(H) 5 - 25 mg/dL LAB CHEMISTRY METHOD 02/25/2025 7:16 AM [facility] Comment:Results verified by repeat testing Creatinine 6.44(H) 0.70 - 1.30 mg/dL LAB CHEMISTRY METHOD 02/25/2025 7:16 AM [facility] Comment:Results verified by repeat testing eGFR 9(L) >=60 mL/min/1. 73m2 LAB CHEMISTRY METHOD 02/25/2025 7:16 AM [facility] Comment:Calculation based on the Chronic Kidney Disease Epidemiology Collaboration (CKD-EPI) equation refit without adjustment for race. BUN/Creatinine Ratio 13.4 LAB CHEMISTRY METHOD 02/25/2025 7:16 AM [facility] Calcium 10.0 8.5 - 10.5 mg/dL LAB CHEMISTRY METHOD 02/25/2025 7:16 AM [facility] AST (SGOT) 26 10 - 42 unit/L LAB CHEMISTRY METHOD 02/25/2025 7:16 AM [facility] ALT (SGPT) 27 10 - 60 unit/L LAB CHEMISTRY METHOD 02/25/2025 7:16 AM [facility] Alkaline Phosphatase 263(H) 42 - 121 unit/L LAB CHEMISTRY METHOD 02/25/2025 7:16 AM [facility] Total Protein 6.7 6.0 - 8.0 g/dL LAB CHEMISTRY METHOD 02/25/2025 7:16 AM [facility] Albumin 3.5 3.2 - 5.0 g/dL LAB CHEMISTRY METHOD 02/25/2025 7:16 AM [facility] Total Bilirubin 1.1 0.0 - 1.4 mg/dL LAB CHEMISTRY METHOD 02/25/2025 7:16 AM [facility] Blood Venous blood specimen / Unknown Venipuncture / Unknown 02/25/2025 6:27 AM EDT 02/25/2025 6:32 AM EDT us Bernie Bergeron MD LAB BLOOD ORDERABLES Final Res ult [facility] [address] [place] [address], * ECG 12 lead (02/25/2025 6:17 AM EDT) Ventricular Rate ECG 83 BPM GEMUSE Atrial Rate 83 BPM GEMUSE P-R Interval 158 ms GEMUSE QRS Duration 86 ms GEMUSE Q-T Interval 378 ms GEMUSE QTc 444 ms GEMUSE P Wave Delaplane 70 degrees GEMUSE R Delaplane -57 degrees GEMUSE T Delaplane 90 degrees GEMUSE ECG Interpretation Normal sinus [...] Documents on File Type Date Recorded Patient Conduit Bender Expl anation Advance Directives and Living Will 02/25/2025 2:59 PM [facility] * Full Code - Default [...] Healthcare Agent Relationshi p Communication Kayleenlita Packer [facility] Care Agent Care Teams Circulation Tender Relationship Specialty Start Date End Date Andie Whitmore RN [address] [address] PCP - General 12/14/23
--- OUTSIDE RECORDS SUMMARY | 2025-05-03 13:42 | XMS_ITS | Encounter Summary ---
Author Organization [employer] Address 75 [facility] 7t [place] [address] Care Team Providers Care Coding Team Lead Name Role Phone Andie Whitmore Primary Care Provider Trevor Restrepo MD Unavailable Juvenal Cr MD Unavailable [phone] Kamini Chavarria MD Unavailable Winston Bhagat DPM Unavailable Humberto Blackburn MD Unavailable Brent Durham Unavailable Reason for Visit * Reason Onset Date Comments Medication Question 02/29/2024 Encounter Details Date Type Department Care Team ([facility] st Contact Info) Description 02/29/2024 Telephone [facility] MEDICINE [address] [place] [address] Andie Whitmore FNP 505 [place], [place] [phone] Medication Question Social History Tobacco Use Types [...] was discussed in sick appt on 02/27 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 does not see ant medication pending documented in this encounter Plan of Treatment Not on file documented as of this encounter Visit Diagnoses Not on filedocumented in this encounter Additional Health Concerns Assessment Noted Time PHQ-9 Depression Total Score: 1 12/23/19 23 3:02 PM EDT documented as of this encounter Care Teams Coding Team Lead Relationship Specialty Start Date End Date Andie Whitmore FNP 230 [place] [address] PCP - General Family Medicine 11/04/21 Trevor Restrepo MD [address] [place] [address] Urology 07/29/24 Juvenal Cr MD 100 [facility] 200 [place] [address] Nephrology 07/29/24 Kamini Chavarria MD [address] [place] [address] Dr Lara [address] [place] [address] Neurology 07/29/24 Winston Bhagat DPM [address] [place] [address] Dr Lara 140 [place] [address] Podiatry 07/29/24 Humberto Blackburn MD [address] [place] [address] Vascular Surgery 04/19/25 Brent Durham [address] [place] [address] Pulmonary Disease 04/19/25 documented as of this encounter
--- OUTSIDE RECORDS SUMMARY | 2025-05-03 13:42 | XMS_ITS | Encounter Summary ---
Author Organization [employer] Address 75 [facility] 7t [place] [address] Care Team Providers Care Supervisor Records Change Name Role Phone Andie Whitmore Primary Care Provider Trevor Restrepo MD Unavailable [phone] Juvenal Cr MD Unavailable [phone] Kamini Chavarria MD Unavailable Winston Bhagat DPM Unavailable [phone] Humberto Blackburn MD Unavailable Brent Durham Unavailable Reason for Visit * Reason Onset Date Comments Hospital Follow-up 11/09/2024 Encounter Details Date Type Department Care Team ([facility] st Contact Info) Description 11/09/2024 Telephone [facility] PED[facility] [address] [place], [place] [phone] Andie Whitmore FNP 505 [place], [place] [phone] Hospital Follow-up Social History Tobacco Use Types [...] AM EDT Tc from pt requesting a F appt. Hospital: [facility] Date of admission: 11/04/24 Discharge date: 11/08/24 Diagnosed: pneumonia *Send message to [place] Clinical Care Coordinators documented in this encounter Plan of Treatment Not on file documented as of this encounter Visit Diagnoses Not on filedocumented in this encounter Additional Health Concerns Assessment Noted Time PHQ-9 Depression Total Score: 1 12/23/19 23 3:02 PM EDT documented as of this encounter Care Teams Supervisor Records Change Relationship Specialty Start Date End Date Andie Whitmore FNP [address] [place] [address] PCP - General Family Medicine 11/04/21 Trevor Restrepo MD [address] [place] [address] [address] [place] [address] Urology 07/29/24 Juvenal Cr MD 100 [facility] 200 [place] [address] Nephrology 07/29/24 Kamini Chavarria MD [address] [place] [address] Dr Lara [address] [place] [address] Neurology 07/29/24 Winston Bhagat DPM [address] [place] [address] Dr [address]ara [address] [place] [address] Podiatry 07/29/24 Humberto Blackburn MD [address] [place], [place] [id number] Vascular Surgery 04/19/25 Brent Durham [address] [place] [address] Pulmonary Disease 04/19/25 documented as of this encounter
== END 2025-05-03 13:31 | disposition home or self-care (01) ==
LOC: HO.HUSH 13:16
PROVIDERS: PCP Registered Nurse; Visit Provider Urology
DX: C61 Malignant neoplasm of prostate (principal); C79.51 Secondary malignant neoplasm of bone
CPT/HCPCS: 99213; G2211

== ENCOUNTER → 2025-05-03 13:15 | Outpatient (BNVA) | payer MEDICARE, MEDICAID, SELFPAY | PROVIDERS: PCP Registered Nurse; Visit Provider Urology | DX: C61 Malignant neoplasm of prostate (principal); C79.51 Secondary malignant neoplasm of bone | CPT/HCPCS: 99212 ==

== ENCOUNTER 2025-05-22 14:58 | Outpatient (REF) | payer MEDICARE, MEDICAID, SELFPAY ==
--- NOTE | 2025-05-22 15:04 | PFT_ITS ---
Indication: COPD Spirometry FEV1 to FVC 59%; FEV1 1.68 L; FVC 2.86 L. there is a significant response to bronchodilators noted. Lung Volumes Total lung capacity 85% predicted; residual volume 112% predicted Diffusion Capacity DLCO 40% predicted Methacholine Challenge [] Flow Volume Loops Abnormal with saw tooth pattern during the inspiratory in the expiratory phase suggesting redundant tissue or vocal cord dysfunction MVV 49% predicted Comparisons None Interpretation There is an obstructive ventilatory defect consistent with moderate COPD. There is a significant response to bronchodilators noted. Lung volumes are normal except for a trend of air trapping due to the COPD. There is also moderate to severe diffusion impairment secondary to likely parenchymal disease. Clinical correlation warranted. MTDD
[2025-05-22 15:38] VITALS: PULSE 66; O2SAT 95
--- OUTSIDE RECORDS SUMMARY | 2025-05-22 21:11 | XMS_ITS | Encounter Summary ---
Author Organization [employer] Address [address] [facility] 7t [place] [address] Care Team Providers Care Metal Patternmaker Name Role Phone Andie Whitmore Primary Care Provider Trevor Restrepo MD Unavailable [phone] MD Unavailable Kamini Chavarria MD Unavailable Winston Bhagat DPM Unavailable [phone] Humberto Blackburn MD Unavailable Brent Durham Unavailable Reason for Visit * Reason Onset Date Comments Hospital Follow-up 11/09/2024 Encounter Details Date Type Department Care Team ([facility] st Contact Info) Description 11/09/2024 Telephone [facility] MED & PEDS [address] [place], [place] [phone] Andie Whitmore FNP [address] [place], [place] [phone] Hospital Follow-up Social History Tobacco Use Types [...] from pt requesting a F appt. Hospital: [facility] Date of admission: 11/04/24 Discharge date: 11/08/24 Diagnosed: pneumonia *Send message to [place] Clinical Care Coordinators documented in this encounter Plan of Treatment Not on file documented as of this encounter Visit Diagnoses Not on filedocumented in this encounter Additional Health Concerns Assessment Noted Time PHQ-9 Depression Total Score: 1 12/23/19 23 3:02 PM EDT documented as of this encounter Care Teams Metal Patternmaker Relationship Specialty Start Date End Date Andie Whitmore FNP [address] [place] [address] PCP - General Family Medicine 11/04/21 Trevor Restrepo MD [address] [place] [address] [address] [place] [address] Urology 07/29/24 Juvenal Cr MD [address] [facility] [address] [place] [address] Nephrology 07/29/24 Kamini Chavarria MD [address] [place] [address] [address] [place] [address] Neurology 07/29/24 Winston Bhagat DPM [address] [place] [address] [address] [place] [address] Podiatry 07/29/24 Humberto Blackburn MD [address] [place], [place] [phone] Vascular Surgery 04/19/25 Brent Durham [address] [place] [address] Pulmonary Disease 04/19/25 documented as of this encounter
--- OUTSIDE RECORDS SUMMARY | 2025-05-22 21:11 | XMS_ITS | Encounter Summary ---
Author Organization [employer] Address [address] [facility] 7[address] [place] [address] Care Team Providers Care Director Medical Science Name Role Phone Andie Whitmore Primary Care Provider Trevor Restrepo MD Unavailable Juvenal Cr MD Unavailable Kamini Chavarria MD Unavailable [phone] Winston Bhagat DPM Unavailable Humberto Blackburn MD Unavailable Brent Durham Unavailable Reason for Visit * Reason Onset Date Comments Medication Question 02/29/2024 Encounter Details Date Type Department Care Team ([facility] st Contact Info) Description 02/29/2024 Telephone [facility] MEDICINE [address] [place] [address] Andie Whitmore FNP [address] [place], [place] [phone] Medication Question Social History Tobacco Use Types [...] was discussed in sick 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 pending documented in this encounter Plan of Treatment Not on file documented as of this encounter Visit Diagnoses Not on filedocumented in this encounter Additional Health Concerns Assessment Noted Time PHQ-9 Depression Total Score: 1 12/23/19 23 3:02 PM EDT documented as of this encounter Care Teams Director Medical Science Relationship Specialty Start Date End Date Andie Whitmore FNP [address] [place] [address] PCP - General Family Medicine 11/04/21 Trevor Restrepo MD [address] [place] [address] Urology 07/29/24 Juvenal Cr MD [address] [facility] [address] [place] [address] Nephrology 07/29/24 Kamini Chavarria MD [address] [place] [address] Dr [address] [place] [address] Neurology 07/29/24 Winston Bhagat DPM [address] [place] [address] Dr [address] [place] [address] Podiatry 07/29/24 Humberto Blackburn MD [address] [place] [address] Vascular Surgery 04/19/25 Brent Durham [address] [place] [address] Pulmonary Disease 04/19/25 documented as of this encounter
--- OUTSIDE RECORDS SUMMARY | 2025-05-22 21:11 | XMS_ITS | Encounter Summary ---
Author Organization [employer] Address [address] [facility] 7t [place] [address] Care Team Providers Care Acting Teacher Name Role Phone Andie Whitmore Primary Care Provider [phone] Trevor Restrepo MD Unavailable [phone] [address]venal Cr MD Unavailable Kamini Chavarria MD Unavailable [phone] Winston Bhagat DPM Unavailable [phone] Humberto Blackburn MD Unavailable Brent Durham Unavailable Reason for Referral * Imaging (Urgent) - Closed Specialty Diagnoses / Procedures Referred By Contac t Referred To Contact Cardiology Diagnoses ESRD (end stage renal disease) (HCC) Primary hypertension Shortness of breath Procedures Transthoracic Echo (TTE) Complete Andie Whitmore FNP [address] [place] [address] Phone: tel: fax: [facility] [address] [place] [address] Phone: tel: fax: Referral ID Status Reason Start Date Expiration Date V isits Requested Visits Authorized [id number] Closed Perform Procedure 06/29/2023 06/28/2024 1 1 Reason for Visit * Reason Onset Date Comments Call Back Request 06/21/2023 Encounter Details Date Type Department Care Team (Late st Contact Info) Description 06/21/2023 Telephone [facility] MEDICINE [address] [place] [address] Andie Whitmore FNP [address] [place] [address] Call Back Request Social History Tobacco Use [...] order of the heart. Contact pt at [phone] * Telephone Encounter - Iram Pierre RN [...] just once, had an EKG, and the saddle mechanic said he was just fine. Patient [...] having dialysis tomorrow. Please contact pt at [phone] documented in this encounter Plan of Treatment Scheduled Orders Name Type Priority Associated Diagnoses Order Schedule Transthoracic Echo (TTE) Complete Echocardiography Urgent ESRD (end stage renal disease) ([facility]/HCC) Primary hypertension Shortness of breath Expected: 06/29/2023 [...] documented as of this encounter Care Teams Acting Teacher Relationship Specialty Start Date End Date Myranda CORINNE Chaves [address] [place] [address] PCP - General Family Medicine 11/04/21 Trevor Restrepo MD [address] [place] [address] Urology 07/29/24 Juvenal Cr MD [address] [facility] [address] [place] [address] Nephrology 07/29/24 Kamini Chavarria MD [address] [facility] [address] [place] [address] Neurology 07/29/24 Winston Bhagat DPM [address] [facility] [address] [place] [address] Podiatry 07/29/24 Humberto Blackburn MD [address] [place] [address] Vascular Surgery 04/19/25 Brent Durham [address] [place] [address] Pulmonary Disease 04/19/25 documented as of this encounter
--- OUTSIDE RECORDS SUMMARY | 2025-05-22 21:11 | XMS_ITS | Clinical Summary ---
Author Organization [employer] Address [address] [facility] 7t [place] [address] Care Team Providers Care Lead Generation Specialist Name Role Phone Andie Whitmore Primary Care Provider [phone] Trevor Restrepo MD Unavailable [phone] Juvenal Cr MD Unavailable Kamini Chavarria MD Unavailable Winston Bhagat DPM Unavailable [phone] Humberto Blackburn MD Unavailable Brent Durham Unavailable [...] (CMS/HC C) 04/19/2025 Overview (04/19/2025): Following with [facility] - Dr. Durham. Oxygen tank & [...] Following with Podiatry - Dr. Bhagat at [facility] Jun 2024: Debridement of toenails 6-10, [...] months PSA: hx prostate CA, following with [facility] Heart failure with mildly re duced [...] Exacerbation w/ Hospitalization 08/04 - 08/07/23 at [facility] Exacerbation w/ Hospitalization 11/20-11/25/24 at [facility] ESRD on HD: communication with Dr. Cr [...] 02/18/2023 Overview (12/12/2023): Following with Dr. Restrepo ([facility]) Hx of bilateral stent placement ESRD (end stage renal disease) 11/05/2021 Assessment & Plan (04/27/2023 2:16 PM EDT): -Hemodialysis MWF at [address] [place] [address] Dialysis (first shift) -Access: Left arm basilic vein transposition performed on 08/03/2021. -Mar 2023: fistulagram performed, [facility] [place]. Blackburn. Has been working well since Assessment & Plan (12/22/2022 8:12 PM EDT): -Hemodialysis MWF at [address] [place] [address] Dialysis -Access: Left arm basilic vein transposition performed on 08/03/2021. Have started to access fistula at dialysis -Left AVF w/ +thrill/+bruit Prostate cancer metastatic to bone 11/05/2021 Assessment & Plan (04/19/2025 4:41 PM EDT): [place] score ranging from 7 to 9. 10/05/21 cystoscopy with bilateral ureteral stent exchange performed by [facility] Continue to follow with [facility] U[facility] - Dr. Restrepo Continue to follow with [facility] Heme/Onc Previously on Bicalutamide 50mg PO daily [...] with bilateral ureteral stent exchange performed by [facility] Continue to follow with [facility] - Dr. Restrepo Continue to follow with [facility] Heme[facility]Onc Previously on Bicalutamide 50mg PO daily through Urology, currently taking Abiraterone 01/24/23: cystoscopy with bilateral stent exchange November 2023: Bone scan stable, no progression Target 3 years hormone therapy then reduction to intermittent anti-androgen Apr 2024: DXA normal Assessment & Plan (04/27/2023 2:17 PM EDT): [place] score ranging from 7 to 9. 10/05/21 cystoscopy with bilateral ureteral stent exchange performed by [facility] Continue to follow with [facility] U[facility] - Dr. Restrepo Continue to follow with [facility] Heme/Onc Previously on Bicalutamide 50mg PO daily through Urology, currently taking Abiraterone 01/24/23: cystoscopy with bilateral stent exchange Assessment & Plan (12/22/2022 8:13 PM EDT): [place] score ranging from 7 to 9. 10/05/21 cystoscopy with bilateral ureteral stent exchange performed by [facility] Continue to follow with [facility] - Dr. Restrepo Continue to follow with [facility] Heme/Onc Previously on Bicalutamide 50mg PO daily [...] Description 04/19/2025 2:30 PM EDT Office Visit [facility] [address] [place] [address] Andie Whitmore FNP Chronic respiratory failure with hypoxia (CMS/HCC) (Primary Dx); Onychomycosis; Prostate cancer metastatic to bone (CMS/HCC); Epidermal inclusion cyst; Primary hypertension 04/19/2025 Travel 04/18/2025 Orders Only GENERIC EXTERNAL DATA DEPARTMENT Provider, Generic External Data 04/12/2025 Patient Outreach [facility] [address] [place] [id number] Andie Whitmore FNP Pre-visit Planning (SDOH screening completed on 02/11/25 ) 03/04/[address] [facility] [address] [place] [address] Andie Whitmore FNP Hospital Follow-up 2025 Patient Outreach [facility] [address] [place] [address] [phone] Andie Whitmore FNP Transition Of Care (Tcm) (HDF Unscheduled) 02/26/2025 Orders Only [facility] [address] [place] [address] Provider, MD Moo from Last 3 Months Immunizations Immunization Administration [...] ECG 12-LEAD Routine 02/25/2025 12:35 PM EDT LIPID PANEL, STANDARD Routine 07/26/2024 11:25 AM EST Hyperlipidemia, unspecified hyperlipidemia type from Last 3 Months or Most Recently Relevant to Health Maintenance Results * (ABNORMAL) Testosterone, Total, males (Adult), IA (04/18/2025 10:21 AM EDT) Testosterone, Total 45(A) 250 - 1100 ng/dL [facility] Comment:Men with clinically significant hypogonadalsymptoms and testosterone values repeatedly inthe range of the 200-300 ng/dL or less, maybenefit from testosterone treatment afteradequate risk and benefits counseling.For additional information, please refer tohttp://education.[employer]Humagade/faq/[email or web address](This link is being provided for informational/educational purposes only.)This test was developed and its analytical performancecharacteristics have been determined by [employer] [place], [place]. It hasnot been cleared or approved by the U.S. Food and DrugAdministration. This assay has been validated pursuantto the CLIA regulations and is used for clinicalpurposes.THIS TEST WAS PERFORMED AT:[employer]/[facility] [place] [address]XMLGCXUHELGA HAYES MD,PHD 04/18/2025 10:2 1 AM EDT 04/18/2025 1:16 PM EDT Generic External Data Provider LAB BLOOD ORDERAB LES Final Result Performing Organization Address City/[facility]/ZIP Co de Phone Number [facility] [address] [place] [phone] * PSA,Total (04/18/2025 10:21 AM EDT) Prostate Specific Antigen 2.76 <0.05 - 4.0 ng/mL [facility] Comment:PSA methodology: Abb bahman Alinity i ChemiluminescentMicroparticle Immunoassay (CMIA) 04/18/2025 10:2 1 AM EDT 04/18/2025 1:16 PM EDT Generic External Data Provider LAB BLOOD ORDERAB LES Final Result Performing Organization Address [facility]/ZIP Co de Phone Number [facility] [address] [place] [phone] * ECG 12 lead (02/25/2025 12:35 PM EDT) us Historical Provider ECG ORDERABLES Final Res ult * Lipid Panel, Standard (07/26/2024 11:25 AM EST) Triglycerides 54 <150 mg/dL [facility] Comment:Desirable Triglyceri de: less than 150 mg/dLBorderline High Triglyceride 150-199 mg/dLHigh Triglyceride: 200-499 mg/dLVery High Triglyceride: greater than or equal to 5OO mg/dL Cholesterol 142 <200 mg/dL [facility] Comment:Desirable Cholestero l: less than 200 mg/dLBorderline High Cholesterol: 200-239 mg/dLHigh Cholesterol: greater than 239 mg/dL LDL Cholesterol Calculated 83 <100 mg/dL [facility] Comment:Desirable LDL: less than 100 mg/dLNear Optimal/Above Optimal LDL: 110- 129 mg/dLBorderline High LDL: 130-159 mg/dLHigh LDL: 160-189 mg/dLVery High LDL: greater than or equal to 190 mg/dL HDL Cholesterol 49 >40 mg/dL [facility] Comment:Desirable HDL: great er than 40 mg/dL Note: This HDL assay may give artificially low results in patients with liver disease. Blood Venous blood specimen / Unknown 07/26/2024 11:25 AM EST 07/26/2024 1:05 PM EST Andie Whitmore BIODIESEL ENGINEERING MANAGER LAB BLOOD ORDERABLES Final Res ult [facility] [address] [place] [address] [phone] from Last 3 Months or Most Recently Relevant to Health Maintenance Insurance [place] [address] [place] [id number] [facility] Advance Directives Documents on File Type Date Recorded Patient Cafeteria Counter Attendant Expl anation Advance Directives and Living Will 03/06/2025 9:37 AM Health Care Proxy [facility] Care Teams Lead Generation Specialist Relationship Specialty Start Date End Date Andie Whitmore FNP [address] [place] [address] PCP - General Family Medicine 11/04/21 Trevor Restrepo MD [address] [place] [address] Urology 07/29/24 Juvenal Cr MD [address] [facility] [address] [place] [address] Nephrology 07/29/24 Kamini Chavarria MD [address] [place] [address] Dr Lara [address] [place] [address] Neurology 07/29/24 Winston Bhagat DPM [address] [place] [address] Dr Lara [address] [place] [address] Podiatry 07/29/24 Humberto Blackburn MD [address] [place] [address] Vascular Surgery 04/19/25 Brent Durham [address] [place] [address] Pulmonary Disease 04/19/25
--- OUTSIDE RECORDS SUMMARY | 2025-05-22 21:12 | XMS_ITS | Encounter Summary ---
Author Organization [employer] Address [address] [facility] 7t [place] [address] Care Team Providers Care [facility] [employer] Name Role Phone Andie Whitmore Primary Care Provider Trevor Restrepo MD Unavailable [phone] Juvenal Cr MD Unavailable Kamini Chavarria MD Unavailable [phone] Winston Bhagat DPM Unavailable Humberto Blackburn MD Unavailable Brent Durham Unavailable Encounter Details Date Type Department Care Team (Late st Contact Info) Description 12/21/2024 Orders Only [facility] [address] [place], [place] [phone] Andie Whitmore FNP [address] [place] [address] Social History Tobacco Use Types Packs/Day Years [...] the past 12 months, has t he [employer], gas, oil or water company threatened to [...] documented as of this encounter Care Teams [employer] Relationship Specialty Start Date End Date Andie Whitmore FNP [address] [place] [address] PCP - General Family Medicine 11/04/21 Trevor Restrepo MD [address] [place] [address] Urology 07/29/24 Juvenal Cr MD [address] [facility] [address] [place] [phone] Nephrology 07/29/24 Kamini Chavarria MD [address] [place] [address] Dr Lara [address] [place] [address] Neurology 07/29/24 Winston Bhagat DPM [address] [place] [address] Dr [facility] [address] [place], [place] [phone] Podiatry 07/29/24 Humberto Blackburn MD [address] [place], [place] [phone] Vascular Surgery 04/19/25 Brent Durham [address] [place] [address] Pulmonary Disease 04/19/25 documented as of this encounter
--- OUTSIDE RECORDS SUMMARY | 2025-05-22 21:12 | XMS_ITS | Encounter Summary ---
Author Organization [employer] Address [address] [facility] [address] [place] [address] Care Team Providers Care Diesel Scoop Operator Name Role Phone Andie Whitmore Primary Care Provider [phone] Trevor Restrepo MD Unavailable [phone] Juvenal Cr MD Unavailable [phone] Kamini Chavarria MD Unavailable Winston Bhagat DPM Unavailable [phone] Humberto Blackburn MD Unavailable Brent Durham Unavailable Encounter Details Date Type Department Care Team (Late st Contact Info) Description 02/26/2025 Orders Only [facility] [address] [place], [place] [phone] Provider, MD Moo Social History Tobacco Use [...] documented as of this encounter Care Teams Diesel Scoop Operator Relationship Specialty Start Date End Date Andie Whitmore FNP [address] [place] [address] PCP - General Family Medicine 11/04/21 Trevor Restrepo MD [address] [place] [address] Urology 07/29/24 Juvenal Cr MD 100 [facility] [address] [place] [address] Nephrology 07/29/24 Kaimni Chavarria MD [address] [place] [address] Dr Lara [address] [place] [address] Neurology 07/29/24 Winston Bhagat DPM [address] [place] [address] Dr Lara [address] [place] [address] Podiatry 07/29/24 Humberto Blackburn MD [address] [place] [address] Vascular Surgery 04/19/25 Brent Durham [address] [place] [address] Pulmonary Disease 04/19/25 documented as of this encounter
== END 2025-05-22 14:59 | disposition home or self-care (01) ==
LOC: HO.RESP 14:58
PROVIDERS: PCP Registered Nurse; Visit Provider Internal Medicine
DX: J44.9 Chronic obstructive pulmonary disease, unspecified (principal); J18.9 Pneumonia, unspecified organism; Z87.891 Personal history of nicotine dependence
CPT/HCPCS: 94060; 94640; 94727; 94729; 99212

== ENCOUNTER 2025-05-22 15:01 | Outpatient (AMB) | payer MEDICARE, MEDICAID, SELFPAY ==
[2025-05-22 15:34] VITALS: BP 130/58; PULSE 65; O2SAT 95; BMI 23.6
--- NOTE | 2025-05-22 15:34 | A.OFFVIS_ITS ---
Vital Signs 05/22/25 15:34 Height 5 ft 3 in Weight 133 lb 2.547 oz BMI 23.6 BP 130/58 L Blood Pressure Location Lt brachial Position Sitting Pulse 65 Pulse Source Pulse Oximeter Pulse Oximetry (%) 95 Oxygen Delivery Method Room Air Intake Visit Reasons: COPD Intake Note: pt is here for follow up and states his breathing is better since he lost some weight, he had chf. 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: No Allergies No Known Allergies (No Known Allergies*) Allergy (Verified 05/22/25 15:59) Medication List - Last Reconciled 05/22/25 by David Durham MD abiraterone 1,000 mg PO BEDTIME albuterol sulfate 90 mcg/actuation (Ventolin HFA) 2 puffs inhalation Q4H PRN amlodipine 10 mg PO DAILY blood pressure test kit-large As directed bumetanide 2 mg PO SUTUTHSA hydralazine 100 mg PO BID losartan 50 mg PO SUTUTHSA metolazone 5 mg PO DIRECTED oseltamivir 30 mg PO Q24H ropinirole 6 mg PO TID ropinirole 2 mg PO BEDTIME rosuvastatin 5 mg PO DAILY sevelamer carbonate 800 mg PO TIDWM vit C,I-Zg-bnmkb-lutein-zeaxan 250-90-40-1 mg (PreserVision AREDS-2) 2 tabs PO BEDTIME Do you need a note to return to daycare/school/sports/work: No HPI HPI COPD: Details: This 65 years old gentleman is here for follow-up, after having his pulmonary function test. He has past history of smoking but quit 15 years ago. He does have history of chronic obstructive pulmonary disease but has not used any bronchodilator inhalers. Now that he does not smoke he hardly gets any symptom of cough or wheezing. He does get short of breath on walking and that is due to his congestive heart failure as well as end-stage renal failure/ anemia . After his hospitalization last month he was discharged home on oxygen. He has stationary concentrator as well as a portable cylinder at home. He claims that after he had dialysis session, and fluid overload was resolved his oxygenation has improved. So he has not been using the oxygen for the last few weeks. He does get short of breath on walking for a few blocks but not at rest. He is not interested in using the portable oxygen . [facility], [facility] Medical History (Updated 05/22/25 @ 16:47 by David Durham MD) Respiratory failure with hypoxia COPD (chronic obstructive pulmonary disease) End stage chronic kidney disease ESRD (end stage renal disease) Anemia HTN (hypertension) Creatinine elevation Urinary retention History of upper gastrointestinal bleeding A-V fistula Fusion of lumbar spine Chronic kidney disease Urinary tract infection Enlarged prostate Kidney disease Elevated PSA Anemia Metabolic acidosis Bilateral hydronephrosis Hypocalcemia Acute anemia Acute kidney injury Surgical History History of fusion of cervical spine Hx of esophagogastroduodenoscopy History of transurethral resection of prostate S/P arteriovenous (AV) fistula creation History of hip replacement, total Social History Household Members: Family Household Members Other:: SISTER Housing: House Housing Other:: mobile home Do you presently have visiting nurse or other home services: No Alcohol intake: former Patient Tobacco Use Status: Former Tobacco user Tobacco use type: Cigarette Years Smoked: 50 e-Cigarette/Vaping Use: Former Use Substance Use Type: Marijuana service: No Current occupational status: disabled Review of Systems Const All systems reviewed & are unremarkable except as noted in HPI and below Eyes Reports no additional complaints ENT Reports no additional complaints Card Denies chest pain, Denies irregular heart rhythm and Reports leg edema Resp Reports as per HPI GI Reports no additional complaints Reports as per HPI Musc Reports back pain and Reports other (Pain in the bones especially of lower extremities) Skin/Breast Reports system reviewed and no additional complaints, except as documented Neuro Reports no additional complaints Psych Reports no additional complaints Endo Reports no additional complaints Jigar/Lymph Reports no additional complaints Physical Exam Vital Signs: Last Vital Signs Pulse 65 05/22/25 15:34 BP 130/58 L 05/22/25 15:34 Pulse Ox 95 05/22/25 15:34 Oxygen Delivery Method Room Air 05/22/25 15:34 BMI result Body Mass Index 23.6 Const General: healthy appearing, comfortable, no acute distress, alert and awake Orientation/consciousness: patient oriented x3 HEENT Head: Yes normal to inspection General nose exam: No nasal polyps present and No nasal discharge present Face and sinus: Yes sinuses nontender Mouth: oropharynx normal Throat: Yes posterior oropharynx normal Eyes General: appearance normal, both eyes and all related structures Neck Neck: Yes normal visual inspection, Yes no lymphadenopathy, Yes trachea midline and Yes no JVD Thyroid: Thyroid normal Chest Chest palpation & inspection: normal inspection of the chest, normal palpation of entire chest wall and no tenderness Resp Other: Percussion note is resonant, breath sounds are equal on both sides, slightly distant, no crepitations or wheezes are heard. Cardio Palpation: normal PMI Rate: regular rate Rhythm: regular rhythm Heart sounds: no gallops and no murmurs GI Palpation (GI): Soft to palpation, nontender, No hepatosplenomegaly present and no masses Auscultation: normal bowel sounds Back/Spine/Pelvis Thoracic/Lumbar Spine: thoracic and lumbar spine normal to inspection and thoraco-lumbar ROM limited Skin General skin exam: no rashes or lesions noted Neuro General: patient oriented x3 and no focal motor deficits Cranial nerves: Yes CN's II-XII intact bilaterally Extrem General: Yes normal to inspection, Yes no calf tenderness and Yes edema (2+ edema of the legs) Psych Appearance: grossly normal and well kempt Speech and movement: Normal speech and movement present Results Reviewed Results Reviewed: PULMONARY FUNCTION TEST PERFORMED EARLIER TODAY SHOWS THE FOLLOWING : OBSTRUCTIVE AIRWAY DISORDER, MODERATELY SEVERE. NO SIGNIFICANT RESPONSE TO BRONCHODILATOR THERAPY. TOTAL LUNG CAPACITY IS NORMAL BUT DIFFUSION CAPACITY IS ONLY 40%. O2 SAT AT REST IS 95%. I MADE HIM WALK WITH ME FOR 4 MINUTES AND O2 SAT DID DROP DOWN TO 89%, Assessment & Plan Assessment & Plan (1) COPD (chronic obstructive pulmonary disease): Comment: Patient does have past history of smoking though he quit 15 years ago. The pulmonary function test performed today does show that he has moderately severe obstructive airway disorder, no response to BD challenge. Code(s): J44.9 - Chronic obstructive pulmonary disease, unspecified Category: Medical Plan: I offered to use a bronchodilator inhaler ( LAMA class) but he is not interested in using the inhaler. He claims he is doing well at this time. (2) ESRD (end stage renal disease): Comment: 08/03/2021 - left arm basilic vein transposition 03/23/2022 - left are fistulogram with plasty x2 03/16/2023 - left arm fistula plasty x2 (8x40 DCB) 12/19/2024 - left arm fistula plasty x3 (8x40 DCB) Patient is getting dialysis 3 times a week. And he feels better. Code(s): N18.6 - End stage renal disease Category: Medical Plan: Encouraged to keep on having dialysis sessions. (3) Respiratory failure with hypoxia: Comment: He does have exercise induced hypoxemia. But he is doing much better than last visit. Has O2 concentrator at home stationary as well as portable cylinder. But he is not interested in using the portable unit . Code(s): J96.91 - Respiratory failure, unspecified with hypoxia Category: Medical Plan: I told him that if he does get into any respiratory distress he should use O2 2- 3 L/minute to keep O2 sat above 90% Coding Level of Care Code Est Pt Level 3 (99206) Diagnoses COPD (chronic obstructive pulmonary disease) J44.9 ESRD (end stage renal disease) N18.6 Respiratory failure with hypoxia J96.91
--- OUTSIDE RECORDS SUMMARY | 2025-05-22 21:14 | XMS_ITS | Clinical Summary ---
Author Organization [facility] Address [address] [place] [address] Phone Care Team Providers Care Skip Hoist Operator Name Role Phone Andie Whitmore odd piece checker Provider Allergies No known active allergies Medications [...] disease 03/05/2024 ESRD (end stage renal disease) ([facility] V24, [facility] V28) 03/02/2024 Heart failure with mildly re duced ejection fraction ([facility] V24, [facility] V28) 03/02/2024 HTN (hypertension) 03/02/2024 Obstructive uropathy 03/02/2024 Onychauxis 03/02/2024 Onychomycosis 03/02/2024 Prostate cancer metastatic t o bone ([facility] V24, [facility] V28) 03/02/2024 Secondary hyperparathyroidism of renal origin ([facility] [place] V24) 03/02/2024 Encounters Date Type Department Care Team Description 02/25/2025 6:01 AM EDT - 02/27/2025 2:22 PM EDT Hospital Encounter [facility] [address] [place] [address] Juvenal Feng MD [place], MD [...] RSV Immunization Adult Patients (1 - Risk 50-74 years 1-dose series) 2011 HIV Screening 02/24/2024 Hepatitis C Screening 02/24/2024 [...] K/mcL LAB HEMETOLOGY METHOD 02/27/2025 6:[address] [facility] RBC 3.40(L) 4.50 - 5.50 M/[facility] LAB HEMETOLOGY METHOD 02/27/2025 6:[address] [facility] Hemoglobin 9.3(L) 13.5 - 17.5 g/dL LAB HEMETOLOGY METHOD 02/27/2025 6:[address] [facility] Hematocrit 30.3(L) 42.0 - 54.0 % LAB HEMETOLOGY METHOD 02/27/2025 6:[address] [facility] MCV 89.4 79.0 - 98.0 FL LAB HEMETOLOGY METHOD 02/27/2025 6:[address] [facility] MCH 27.4 27.0 - 32.0 pcg LAB HEMETOLOGY METHOD 02/27/2025 6:[address] [facility] MCHC 30.7(L) 32.0 - 37.0 g/dL LAB HEMETOLOGY METHOD 02/27/2025 6:[address] [facility] RDW 19.1(H) 11.0 - 15.0 % LAB HEMETOLOGY METHOD 02/27/2025 6:43 AM EDT [facility] Platelets 146 130 - 400 K/mcL LAB HEMETOLOGY METHOD 02/27/2025 6:43 AM EDT [facility] MPV 12.5(H) 7.0 - 11.0 FL LAB HEMETOLOGY METHOD 02/27/2025 6:43 AM EDT [facility] NRBC 0.0 <1.0 % LAB HEMETOLOGY METHOD 02/27/2025 6:43 AM EDT [facility] NRBC Absolute 0.00 <0.10 K/mcL LAB HEMETOLOGY METHOD 02/27/2025 6:43 AM EDT [facility] Blood Venous blood specimen / Unknown Venipuncture / Unknown 02/27/2025 5:16 AM EDT 02/27/2025 6:19 AM EDT us Joshua Rudd MD LAB BLOOD ORDERABLE S Final Result [facility] [address] [place] [address], * (ABNORMAL) Phosphorus (02/27/2025 5:16 AM EDT) Phosphorus 7.6(H) 2.5 - 4.5 mg/dL LAB CHEMISTRY METHOD 02/27/2025 7:42 AM EDT [facility] Comment:Results verified by repeat testing Blood Venous blood specimen / Unknown Venipuncture / Unknown 02/27/2025 5:16 AM EDT 02/27/2025 6:20 AM EDT us Joshua Rudd MD LAB BLOOD ORDERABLE S Final Result [facility] [address] [place] [address], [place] [phone] * Magnesium (02/27/2025 5:16 AM EDT) [facility] Magnesium 2.2 1.9 - 2.6 mg/dL LAB CHEMISTRY METHOD 02/27/2025 7:14 AM EDT [facility] Blood Venous blood specimen / Unknown Venipuncture / Unknown 02/27/2025 5:16 AM EDT 02/27/2025 6:20 AM EDT Joshua Rudd MD LAB BLOOD ORDERABLE S Final Result [facility] [address] [place] [address], [place] [phone] * (ABNORMAL) Basic metabolic panel (02/27/2025 5:16 AM EDT) Only the most recent of2 resultswithin the time period is included. [facility] Sodium 132(L) 133 - 145 mmol/L LAB CHEMISTRY METHOD 02/27/2025 7:[address] [facility] Potassium 4.8 3.5 - 5.5 mmol/L LAB CHEMISTRY METHOD 02/27/2025 7:[address] [facility] Chloride 94(L) 96 - 110 mmol/L LAB CHEMISTRY METHOD 02/27/2025 7:[address] [facility] CO2 31 21 - 32 mmol/L LAB CHEMISTRY METHOD 02/27/2025 7:[address] [facility] Anion Gap 7 3 - 11 LAB CHEMISTRY METHOD 02/27/2025 7:[address] [facility] Glucose 90 70 - 100 mg/dL LAB CHEMISTRY METHOD 02/27/2025 7:[address] [facility] BUN 63(H) 5 - 25 mg/dL LAB CHEMISTRY METHOD 02/27/2025 7:26 AM EDT [facility] Creatinine 5.64(H) 0.70 - 1.30 mg/dL LAB CHEMISTRY METHOD 02/27/2025 7:26 AM T [facility] eGFR 11(L) >=60 mL/min/1. 73m2 LAB CHEMISTRY METHOD 02/27/2025 7:26 AM T [facility] Comment:Calculation based on the Chronic Kidney Disease Epidemiology Collaboration (CKD-EPI) equation refit without adjustment for race. BUN/Creatinine Ratio 11.2 LAB CHEMISTRY METHOD 02/27/2025 7:[address] [facility] Calcium 9.2 8.5 - 10.5 mg/dL LAB CHEMISTRY METHOD 02/27/2025 7:[address] [facility] Blood Venous blood specimen / Unknown Venipuncture / Unknown 02/27/2025 5:16 AM EDT 02/27/2025 6:20 AM EDT Joshua Rudd MD LAB BLOOD ORDERABLE S Final Result [facility] [address] [place] [address], * (ABNORMAL) CBC auto differential (02/26/2025 5:18 AM EDT) WBC 10.2 4.8 - 10.8 K/mcL LAB HEMETOLOGY METHOD 02/26/2025 7:[address] [facility] RBC 3.30(L) 4.50 - 5.50 M/mcL LAB HEMETOLOGY METHOD 02/26/2025 7:[address] [facility] Hemoglobin 9.2(L) 13.5 - 17.5 g/dL LAB HEMETOLOGY METHOD 02/26/2025 7:[address] [facility] Hematocrit 29.8(L) 42.0 - 54.0 % LAB HEMETOLOGY METHOD 02/26/2025 7:[address] [facility] MCV 89.2 79.0 - 98.0 FL LAB HEMETOLOGY METHOD 02/26/2025 7:[address] [facility] MCH 27.5 27.0 - 32.0 pcg LAB HEMETOLOGY METHOD 02/26/2025 7:[address] [facility] MCHC 30.9(L) 32.0 - 37.0 g/dL LAB HEMETOLOGY METHOD 02/26/2025 7:[address] [facility] RDW 19.1(H) 11.0 - 15.0 % LAB HEMETOLOGY METHOD 02/26/2025 7:[address] [facility] Platelets 141 130 - 400 K/mcL LAB HEMETOLOGY METHOD 02/26/2025 7:[address] [facility] MPV 11.0 7.0 - 11.0 FL LAB HEMETOLOGY METHOD 02/26/2025 7:[address] [facility] NRBC 0.0 <1.0 % LAB HEMETOLOGY METHOD 02/26/2025 7:[address] [facility] NRBC Absolute 0.00 <0.10 K/mcL LAB HEMETOLOGY METHOD 02/26/2025 7:[address] [facility] Neutrophils Relative 84.7 % LAB HEMETOLOGY METHOD 02/26/2025 7:[address] [facility] Lymphocytes Relative 8.0 % LAB HEMETOLOGY METHOD 02/26/2025 7:[address] [facility] Monocytes Relative 5.6 % LAB HEMETOLOGY METHOD 02/26/2025 7:[address] [facility] Eosinophils Relative 0.3 % LAB HEMETOLOGY METHOD 02/26/2025 7:[address] [facility] Basophils Relative 0.6 % LAB HEMETOLOGY METHOD 02/26/2025 7:09 AM EDT [facility] Immature Granulocytes Relative 0.8 % LAB HEMETOLOGY METHOD 02/26/2025 7:09 AM EDT [facility] Neutrophils Absolute 8.67(H) 1.50 - 7.00 K/mcL LAB HEMETOLOGY METHOD 02/26/2025 7:09 AM EDT [facility] Lymphocytes Absolute 0.82(L) 1.00 - 5.00 K/mcL LAB HEMETOLOGY METHOD 02/26/2025 7:09 AM EDT [facility] Monocytes Absolute 0.57 0.20 - 1.00 K/mcL LAB H[facility]OLOGY [facility] Eosin[facility] Absolute 0.03 0.00 - 0.50 K/mcL LAB HEMETOLOGY METHOD 02/26/2025 7:09 AM EDT [facility] Basophils Absolute 0.06 0.00 - 0.20 K/mcL LAB HEMETOLOGY METHOD 02/26/2025 7:09 AM EDT [facility] Immature Granulocytes Absolute 0.08(H) 0.00 - 0.03 K/mcL LAB HEMETOLOGY [facility] Blood Venous blood specimen / Unknown Venipuncture / Unknown 02/26/2025 5:18 AM EDT 02/26/2025 6:39 AM EDT us Cassi SHELDON LAB BLOOD ORDERABLES Final Result [facility] [address] [place] [address], * (ABNORMAL) Troponin I high sensitivity (NOW and then in 1 hour) (02/25/2025 7:40 AM EDT) Only the most recent of2 resultswithin the time period is included. High Sensitivity Troponin I 93(H) <=79 ng/L LAB CHEMISTRY METHOD 02/25/2025 8:22 AM EDT [facility] Blood Venous blood specimen / Unknown Venipuncture / Unknown 02/25/2025 7:40 AM EDT 02/25/2025 7:58 AM EDT Narrative [facility] - 02/25/2025 8:22 AM EDT High levels of biotin in samples may falsely decrease hsTroponin values. Use caution when interpreting hsTroponin results in patients taking biotin who exhibit renal impairment (eGFR <60) or in patients taking more than 20 mg/day of biotin. us Bernie Bergeron MD LAB BLOOD ORDERABLES Final Res ult [facility] [address] [place] [address], * XR Chest 1 View (02/25/2025 7:35 [...] Signed Date: 02/25/2025 08:09 ET Workstation ID: [id number] Transcribed By: Self Edit Transcribed Date: 02/25/2025 [...] Signed Date: 02/25/2025 08:09 ET Workstation ID: [id number] Transcribed By: Self Edit Transcribed Date: 02/25/2025 08:09 ET us Bernie Bergeron MD IMG XR PROCEDURES Final Result * Hepatitis B surface antigen with reflex to confirmation (02/25/2025 6:27 AM EDT) Pathologist [facility] Hepatitis B Surface Ag Negative Negative LAB CHEMISTRY METHOD 02/25/2025 5:13 PM EDT [facility] Blood Venous blood specimen / Unknown Venipuncture / Unknown 02/25/2025 6:27 AM EDT 02/25/2025 6:32 AM EDT Narrative [facility] - 02/25/2025 5:13 PM EDT Over the counter supplements containing high doses of biotin may interfere with this assay. If interference is suspected, patients shoud be retested after refraining from biotin supplements for 72 hours. us Linn Miller MD LAB BLOOD ORDERABLES Final Res ult [facility] [address] [place] [address], * (ABNORMAL) Procalcitonin (02/25/2025 6:27 AM EDT) Pathologist [facility] Procalcitonin 1.72(H) <=0.16 ng/mL LAB CHEMISTRY METHOD 02/25/2025 1:44 PM EDT [facility] Blood Venous blood specimen / Unknown Venipuncture / Unknown 02/25/2025 6:27 AM EDT 02/25/2025 6:32 AM EDT Narrative [facility] - 02/25/2025 1:44 PM EDT [...] Cassi SHELDON LAB BLOOD ORDERABLES Final Result [facility] [address] [place] [address], * Hepatitis B surface antibody quantitative (02/25/2025 6:27 AM EDT) Hepatitis B Surface Ab Negative Negative LAB CHEMISTRY METHOD 02/25/2025 5:27 PM EDT [facility] Hepatitis B Surface Ab Quantitative <3.1 mIU/mL LAB CHEMISTRY METHOD 02/25/2025 5:27 PM EDT [facility] Blood Venous blood specimen / Unknown Venipuncture / Unknown 02/25/2025 6:27 AM EDT 02/25/2025 6:32 AM EDT Narrative [facility] - 02/25/2025 5:27 PM EDT >=10 mIU/mL is considered to be consistent with immunity. Linn Miller MD LAB BLOOD ORDERABLES Final Res ult Performing Organization Address City/[facility]/ZIP Co de Phone Number [facility] [address] [place] [address], [place] [phone] * (ABNORMAL) BNP (02/25/2025 6:27 AM EDT) Pathologist [facility] BNP 2,343(H) <=100 pcg/mL LAB CHEMISTRY METHOD 02/25/2025 7:06 AM EDT [facility] Blood Venous blood specimen / Unknown Venipuncture / Unknown 02/25/2025 6:27 AM EDT 02/25/2025 6:32 AM EDT Bernie Bergeron MD LAB BLOOD ORDERABLES Final Res ult Performing Organization Address [facility]/ZIP Co de Phone Number [facility] [address] [place] [address], [place] [phone] * (ABNORMAL) Blood gas, venous (02/25/2025 6:27 AM EDT) pH, Rober 7.42 7.32 - 7.42 pH 02/25/2025 6:35 AM EDT [facility] pCO2, Rober 39(L) 41 - 51 mmHg 02/25/2025 6:35 AM EDT [facility] pO2, Rober 51(H) 25 - 40 mmHg 02/25/2025 6:35 AM EDT [facility] HCO3, Venous 25.2 22.0 - 26.0 mmol/L 02/25/2025 6:35 AM EDT [facility] O2 Sat, Rober 82.8 % 02/25/2025 6:35 AM T [facility] Base Excess, Rober 0.8 -2.0 - 2.0 mmol/L 02/25/2025 6:[address] [facility] Blood Venous blood specimen / Unknown Venipuncture / Unknown 02/25/2025 6:27 AM EDT 02/25/2025 6:32 AM EDT us Bernie Bergeron MD LAB BLOOD ORDERABLES Final Res ult [facility] [address] [place] [address], * (ABNORMAL) Comprehensive metabolic panel (02/25/2025 6:27 AM EDT) Sodium 133 133 - 145 mmol/L LAB CHEMISTRY METHOD 02/25/2025 7:[address] [facility] Potassium 5.7(H) 3.5 - 5.5 mmol/L LAB CHEMISTRY METHOD 02/25/2025 7:[address] [facility] Chloride 98 96 - 110 mmol/L LAB CHEMISTRY METHOD 02/25/2025 7:[address] [facility] CO2 25 21 - 32 mmol/L LAB CHEMISTRY METHOD 02/25/2025 7:[address] [facility] Anion Gap 10 3 - 11 LAB CHEMISTRY METHOD 02/25/2025 7:[address] [facility] Glucose 133(H) 70 - 100 mg/dL LAB CHEMISTRY METHOD 02/25/2025 7:[address] [facility] BUN 86(H) 5 - 25 mg/dL LAB CHEMISTRY METHOD 02/25/2025 7:[address] [facility] Comment:Results verified by repeat testing Creatinine 6.44(H) 0.70 - 1.30 mg/dL LAB CHEMISTRY METHOD 02/25/2025 7:[address] [facility] Comment:Results verified by repeat testing eGFR 9(L) >=60 mL/min/1. 73m2 LAB CHEMISTRY METHOD 02/25/2025 7:[address] [facility] Comment:Calculation based on the Chronic Kidney Disease Epidemiology Collaboration (CKD-EPI) equation refit without adjustment for race. BUN/Creatinine Ratio 13.4 LAB CHEMISTRY METHOD 02/25/2025 7:[address] [facility] Calcium 10.0 8.5 - 10.5 mg/dL LAB CHEMISTRY METHOD 02/25/2025 7:[address] [facility] AST (SGOT) 26 10 - 42 unit/L LAB CHEMISTRY METHOD 02/25/2025 7:[address] [facility] ALT (SGPT) 27 10 - 60 unit/L LAB CHEMISTRY METHOD 02/25/2025 7:[address] [facility] Alkaline Phosphatase 263(H) 42 - 121 unit/L LAB CHEMISTRY METHOD 02/25/2025 7:[address] [facility] Total Protein 6.7 6.0 - 8.0 g/dL LAB CHEMISTRY METHOD 02/25/2025 7:[address] [facility] Albumin 3.5 3.2 - 5.0 g/dL LAB CHEMISTRY METHOD 02/25/2025 7:[address] [facility] Total Bilirubin 1.1 0.0 - 1.4 mg/dL LAB CHEMISTRY METHOD 02/25/2025 7:[address] [facility] Blood Venous blood specimen / Unknown Venipuncture / Unknown 02/25/2025 6:27 AM EDT 02/25/2025 6:32 AM EDT us Bernie Bergeron MD LAB BLOOD ORDERABLES Final Res ult [facility] [address] [place] [address], * ECG 12 lead (02/25/2025 6:17 AM EDT) Ventricular Rate ECG 83 BPM GEMUSE Atrial Rate 83 BPM GEMUSE P-R Interval 158 ms GEMUSE QRS Duration 86 ms GEMUSE Q-T Interval 378 ms GEMUSE QTc 444 ms GEMUSE P Wave [place] 70 degrees GEMUSE R [place] -57 degrees GEMUSE T [place] 90 degrees GEMUSE ECG Interpretation Normal sinus [...] Documents on File Type Date Recorded Patient Recruiting Internship Expl anation Advance Directives and Living Will 02/25/2025 2:59 PM [facility] Full Code - Default (Latest [...] Relationship Healthcare Agent Relationshi p Communication [facility] Care Teams Skip Hoist Operator Relationship Specialty Start Date End Date Andie Whitmore RN [address] [address] PCP - General 12/14/23
== END 2025-05-22 15:59 | disposition home or self-care (01) ==
LOC: HO.HPS 15:02
PROVIDERS: PCP Registered Nurse; Visit Provider Internal Medicine
DX: J44.9 Chronic obstructive pulmonary disease, unspecified (principal); N18.6 End stage renal disease; J96.91 Respiratory failure, unspecified with hypoxia
CPT/HCPCS: 99213

== ENCOUNTER 2025-05-28 15:04 | Outpatient (AMB) | payer MEDICARE, MEDICAID, SELFPAY ==
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
--- OUTSIDE RECORDS SUMMARY | 2025-05-28 19:30 | XMS_ITS | Clinical Summary ---
Author Organization [facility] Address [address] [place] [address] Phone Care Team Providers Care Solid Waste Collector Name Role Phone Unavailable Primary Care Provider Unavailabl e Medications bicalutamide (CASODEX) 50 MG chemo tablet Take 50 mg by mouth 1 (one) time each day 1 Active amLODIPine (NORVASC) 5 MG tablet Take 1 tablet (5 mg total) by mouth 1 (one) time each day 90 tablet 5 2 Active rOPINIRole (Requip) 0.25 MG tablet Take 1 tablet (0.25 mg total) by mouth 1 (one) time each day with dinner Take one tablet at night. Can go up to 2 Tablets at night 90 tablet 5 2 Active gabapentin (Neurontin) 100 MG capsule Take 1 capsule (100 mg total) by mouth in the morning and 1 capsule (100 mg total) in the evening. 90 capsule 5 2 Active carbidopa-levo dopa (SINEMET) 25-100 MG per tablet TAKE 1 TABLET BY MOUTH EVERY NIGHT IN THE MORNING AND AT BEDTIME 60 tablet 11 3 Active bumetanide (BUMEX) 2 MG tablet Take 1 tablet (2 mg total) by mouth 1 (one) time each day 51 tablet 3 4 Active hydrALAZINE 100 MG tablet Take 1 tablet (100 mg total) by mouth in the morning and 1 tablet (100 mg total) in the evening. 60 tablet 11 4 Active metOLazone 5 MG tablet Take 1 tablet (5 mg total) by mouth 4 (four) times a week: Ernst Muñoz, Sat, Sun Take with Bumex 16 tablet 11 5 01/09/20 26 Active losartan (COZAAR) 50 MG tablet Take 1 tablet (50 mg total) by mouth 1 (one) time each day 90 tablet 5 Active bumetanide (BUMEX) 2 MG tablet TAKE 1 TABLET(2 MG) BY MOUTH IN THE MORNING AND IN THE EVENING 180 tablet 5 Active bumetanide (BUMEX) 2 MG tablet Take 1 tablet (2 mg total) by mouth in the morning and 1 tablet (2 mg total) in the evening. 180 tablet 4 05/11/20 25 Discontinued Calcium Acetate, Phos Binder, 667 MG capsule Take 1,334 mg by mouth in the morning and 1,334 mg in the evening and 1,334 mg before bedtime. 180 capsule 3 4 05/14/20 25 losartan (Cozaar) 50 MG tablet Take 1 tablet (50 mg total) by mouth 4 (four) times a week: Ernst Muñoz, Sat, Sun 16 tablet 11 5 05/02/20 25 Discontinued Active Problems Problem Noted Date Diagnosed Date Carcinoma of prostate 04/21/2021 Anemia of chronic renal failure 04/21/2021 Stage 5 chronic kidney disease 04/21/2021 Hyperkalemia 04/21/2021 Secondary hyperparathyroidism of renal origin Hypocalcemia 04/21/2021 Essential (primary) hypertension 04/21/2021 Acute nontraumatic kidney injury 04/17/2021 Hypertensive disorder 04/17/2021 Encounters Date Type Department Care Team Description 05/11/2025 Refill [facility] [address] [place] [address] Juvenal Cr MD 05/06/2025 Treatment [facility] [address] [place] [phone] Juvenal Cr MD End stage renal disease; Dependence on renal dialysis 05/01/2025 Refill [facility] [address] [place] [address] Juvenal Cr MD 04/29/2025 Treatment [facility] [address] [phone] Juvenal Cr MD End stage renal disease; Dependence on renal dialysis 04/17/2025 Treatment [facility] [address] [phone] Juvenal Cr MD End stage renal disease; Dependence on renal dialysis 04/12/2025 Orders Only [facility] [address] [phone] Juvenal Cr MD 04/08/2025 Treatment [facility] [address] [phone] Juvenal Cr MD End stage renal disease; Dependence on renal dialysis 04/01/2025 Treatment [facility] [address] [phone] Juvenal Cr MD End stage renal disease; Dependence on renal dialysis 03/25/2025 Treatment [facility] [address] [phone] Juvenal Cr MD End stage renal disease; Dependence on renal dialysis 03/20/2025 Treatment [facility] [address] [phone] Juvenal Cr MD End stage renal disease; Dependence on renal dialysis 03/11/2025 Treatment [facility] [address] [phone] Juvenal Cr MD End stage renal disease; Dependence on renal dialysis 03/04/2025 Treatment [facility] [address] [phone] Juvenal Cr MD End stage renal disease; Dependence on renal dialysis 03/01/2025 Treatment [facility] [address] [facility] [address] [place] [address] Juvenal Cr MD End stage renal disease; Dependence on renal dialysis 03/01/2025 TCM in Dialysis Clinic [facility] [address] [facility] [address] [place] [address] Juvenal Cr MD from Last 3 Months [...] Priority Date/Time Associated Diagnosis Comments HEMOGLOBIN Routine 05/22/2025 3:00 AM EDT HEMOGLOBIN AND HEMATOCRIT, BLOOD Routine 05/15/2025 3:00 AM EDT HEMOGLOBIN Routine 05/08/2025 3:00 AM EDT HEPATITIS B SURFACE ANTIGEN W/REFL CONFIRM Routine 05/01/2025 3:00 AM EDT PTH, INTACT Routine 05/01/2025 3:00 AM EDT FERRITIN Routine 05/01/2025 3:00 AM EDT TRANSFERRIN SATURATION Routine 3:00 AM EDT PROTEIN, TOTAL, SERUM Routine 05/01/2025 3:00 AM EDT ELECTROLYTE PANEL Routine 05/01/2025 3:0 0 AM EDT MAGNESIUM Routine 05/01/2025 3:00 AM EDT LIPID PANEL Routine 05/01/2025 3:00 AM EDT LACTATE DEHYDROGENASE Routine 05/01/2025 3:00 AM EDT LIH (HC) Routine 05/01/2025 3:00 AM EDT GLUCOSE, RANDOM Routine 05/01/2025 3:00 AM EDT CREATININE, SERUM Routine 05/01/2025 3:0 0 AM EDT BUN/CREATININE RATIO Routine 05/01/2025 3:00 AM EDT BILIRUBIN, TOTAL Routine 05/01/2025 3:00 AM EDT AST Routine 05/01/2025 3:00 AM EDT CALCIUM PHOSPHORUS PRODUCT, ADJUSTED (HC) Routine 05/01/2025 3:00 AM EDT ALKALINE PHOSPHATASE Routine 05/01/2025 3:00 AM EDT ALT Routine 05/01/2025 3:00 AM EDT KT/V NATURAL LOG, URR (HC) Routine 05/01/2025 3:00 AM EDT CBC AND DIFFERENTIAL Routine 05/01/2025 3:00 AM EDT PHOSPHATE ( PHOSPHORUS) Routine 04/24/2025 3:00 AM EDT LIH (HC) Routine 04/24/2025 3:00 AM EDT HEMOGLOBIN AND HEMATOCRIT, BLOOD Routine 04/17/2025 3:00 AM EDT HEMOGLOBIN Routine 04/12/2025 3:00 AM EDT HEPATITIS [...] 03/20/2025 3:00 AM EDT TRANSFERRIN SATURATION Routine 3:00 [...] URR (HC) Routine 03/06/2025 3:00 AM EDT OCCULT BLOOD X 3, STOOL Routine 01/22/2022 from Last 3 Months or Most Recently Relevant to Health Maintenance Results * (ABNORMAL) Hemoglobin (05/22/2025 3:00 AM EDT) Only the most recent of3 resultswithin the time period is included. Hgb 10.5(L) 13.7 - 17.5 g/dL [facility] Hemoglobin x 3 31.5(L) 41.1 - 52.5 g/dL [facility] 05/22/2025 3:00 AM EDT 05/23/2025 1:37 PM EDT Juvenal Cr MD LAB BLOOD ORDERABLES Final Re sult Performing Organization Address [facility] de Phone Number [facility] [address] [place] [address] * (ABNORMAL) Hemoglobin and hematocrit (05/15/2025 3:00 AM EDT) Only the most recent of3 resultswithin the time period is included. Hgb 10.0(L) 13.7 - 17.5 g/dL [facility] Hematocrit 31.3(L) 40.1 - 51.0 % [facility] Hemoglobin x 3 30.0(L) 41.1 - 52.5 g/dL [facility] 05/15/2025 3:00 AM EDT 05/16/2025 2:57 PM EDT Juvenal Cr MD LAB BLOOD ORDERABLES Final Re sult Performing Organization Address [facility] de Phone Number [facility] [address] [place] [address] * LIH (05/01/2025 3:00 AM EDT) Only the most recent of5 resultswithin the time period is included. Pathologist [facility] Lipemia Normal Normal [facility] Icterus Normal Normal [facility] Hemolysis Normal Normal [facility] 05/01/2025 3:00 AM EDT 05/02/2025 2:21 PM EDT Juvenal Cr MD LAB [id number] SOLICITED RESULTS Final Result Performing Organization Address [facility] de Phone Number [facility] [address] [place] [address] * (ABNORMAL) Kt/V Natural Log, URR (05/01/2025 3:00 AM EDT) Only the most recent of3 resultswithin the time period is included. Pathologist [facility] Treatment Time 212 min [facility] Pre-Weight, lb 63.1 kg [facility] Post-Weight, lb 59.9 kg [facility] Ultrafiltration Rate 15(H) <=13 mL/kg/hr [facility] Comment: Recommend achieving Ultrafiltration Rate (UFR) <=10 mL/kg/hr References: Gregory LIN et al. Kidney Int. 2010; 79(2):250-257 BUN 54(H) 7 - 25 mg/dL [facility] BUN Post Dialysis 14 7 - 25 mg/dL [facility] UREA REDUCTION RATIO (%) 74 >=65 % [facility] Kt/V Natural Log 1.63 >=1.2 [facility] 05/01/2025 3:00 AM EDT 05/02/2025 2:21 PM EDT Juvenal Cr MD LAB [id number] SOLICITED RESULTS Final Result Performing Organization Address [facility] de Phone Number [facility] [address] [place] [address] * (ABNORMAL) Calcium Phosphorus Product, Adjusted (05/01/2025 3:00 AM EDT) Only the most recent of3 resultswithin the time period is included. Albumin 4.3 3.6 - 5.4 g/dL [facility] Calcium 9.4 8.6 - 10.3 mg/dL [facility] Phosphorus, Serum 6.8(H) 2.5 - 5.0 mg/dL [facility] Ca*PO4 63.9(A) <55.0 mg2/dL2 [facility] Calcium, Adjusted Total 9.4 8.6 - 10.3 mg/dL [facility] CA*PO4 CORRCTD 63.9(A) <55.0 mg2/dL2 [facility] 05/01/2025 3:00 AM EDT 05/02/2025 2:21 PM EDT Juvenal Cr MD LAB [id number] SOLICITED RESULTS Final Result Performing Organization Address [facility] de Phone Number [facility] [address] [place] [address] * Hepatitis B Surface Ag w/Reflex Confirmation (05/01/2025 3:00 AM EDT) Only the most recent of3 resultswithin the time period is included. Hep B Surface Antigen Negative Negative [facility] 05/01/2025 3:00 AM EDT 05/02/2025 2:21 PM EDT Juvenal Cr MD LAB BLOOD ORDERABLES Final Re sult Performing Organization Address [facility] Co de Phone Number [facility] [address] [place] [address] * BUN/CREATININE RATIO (05/01/2025 3:00 AM EDT) Only the most recent of3 resultswithin the time period is included. BUN/Creatinine Ratio 10.0 <=23.0 [facility] 05/01/2025 3:00 AM EDT 05/02/2025 2:21 PM EDT Juvenal Cr MD LAB [id number] SOLICITED RESULTS Final Result Performing Organization Address [facility] de Phone Number [facility] [address] [place] [address] * (ABNORMAL) TSAT (05/01/2025 3:00 AM EDT) Only the most recent of3 resultswithin the time period is included. Iron 42(L) 65 - 175 ug/dL [facility] Transferrin 186(L) 215 - 365 mg/dL [facility] TIBC 260 211 - 406 ug/dL [facility] Iron Saturation (TSat) 16(L) 22 - 52 % [facility] 05/01/2025 3:00 AM EDT 05/02/2025 2:21 PM EDT Juvenal Cr MD LAB BLOOD ORDERABLES Final Re sult Performing Organization Address [facility] Co de Phone Number [facility] [address] [place] [address] * (ABNORMAL) CBC and Differential (05/01/2025 3:00 AM EDT) Only the most recent of3 resultswithin the time period is included. DIFFERENTIAL MANUAL, 2 Not Indicated [facility] White Blood Cells 7.5 4.2 - 9.1 K/uL [facility] RBC 3.55(L) 4.63 - 6.08 M/uL [facility] Hgb 10.3(L) 13.7 - 17.5 g/dL [facility] Hemoglobin x 3 30.9(L) 41.1 - 52.5 g/dL [facility] Hematocrit 32.2(L) 40.1 - 51.0 % [facility] MCV 90.7 79.0 - 92.2 fL [facility] MCH 29.0 25.7 - 32.2 pg [facility] MCHC 32.0(L) 32.3 - 36.5 g/dL [facility] RDW 17.3(H) 11.6 - 14.4 % [facility] Platelets 117(L) 163 - 337 K/uL [facility] MPV Test Canceled fL [facility] Comment:Unable to measure Neutrophils Relative 80.8(H) 34.0 - 67.9 % [facility] Lymphocytes Relative 9.0(L) 21.8 - 53.1 % [facility] Monocytes 7.2 5.3 - 12.2 % [facility] Eosinophils Relative 1.6 0.8 - 7.0 % [facility] Basophils Relative 0.9 0.2 - 1.2 % [facility] Immature Granulocytes 0.5 0.0 - 1.0 % [facility] 05/01/2025 3:00 AM EDT 05/02/2025 1:52 PM EDT us Juvenal Cr MD LAB BLOOD ORDERABLES Edited R esult - Final [facility] [address] [place] [address] * ALT (05/01/2025 3:00 AM EDT) Only the most recent of3 resultswithin the time period is included. Pathologist [facility] ALT (SGPT) 18 10 - 49 U/L [facility] 05/01/2025 3:00 AM EDT 05/02/2025 2:21 PM EDT us Juvenal Cr MD LAB BLOOD ORDERABLES Final Re sult Performing Organization Address [facility] de Phone Number [facility] [address] [place] [address] * AST (05/01/2025 3:00 AM EDT) Only the most recent of3 resultswithin the time period is included. AST (SGOT) 22 <34 U/L [facility] 05/01/2025 3:00 AM EDT 05/02/2025 2:21 PM EDT us Juvenal Cr MD LAB BLOOD ORDERABLES Final Re sult Performing Organization Address [facility] de Phone Number [facility] [address] [place] [address] * Protein, total (05/01/2025 3:00 AM EDT) Only the most recent of3 resultswithin the time period is included. Total Protein 6.7 6.4 - 8.9 g/dL [facility] 05/01/2025 3:00 AM EDT 05/02/2025 2:21 PM EDT us Juvenal Cr MD LAB BLOOD ORDERABLES Final Re sult Performing Organization Address [facility] de Phone Number [facility] [address] [place] [address] * (ABNORMAL) Alkaline phosphatase (05/01/2025 3:00 AM EDT) Only the most recent of3 resultswithin the time period is included. Alkaline Phosphatase 265(H) 46 - 116 U/L [facility] 05/01/2025 3:00 AM EDT 05/02/2025 2:21 PM EDT us Juvenal Cr MD LAB BLOOD ORDERABLES Final Re sult Performing Organization Address [facility] Co de Phone Number [facility] [address] [place] [address] * PTH, Intact (05/01/2025 3:00 AM EDT) PTH, Intact 174 160 - 721 pg/mL [facility] Comment: Suggested (KDIGO) ESRD maintenance range is two to nine times the upper normal limit (80.1 pg/mL) for the laboratory. 05/01/2025 3:00 AM EDT 05/02/2025 2:21 PM EDT Juvenal Cr MD LAB BLOOD ORDERABLES Final Re sult Performing Organization Address [facility] Co de Phone Number [facility] [address] [place] [address] * Magnesium (05/01/2025 3:00 AM EDT) Only the most recent of3 resultswithin the time period is included. Magnesium 2.2 1.9 - 2.7 mg/dL [facility] 05/01/2025 3:00 AM EDT 05/02/2025 2:21 PM EDT Juvenal Cr MD LAB BLOOD ORDERABLES Final Re sult Performing Organization Address [facility] de Phone Number [facility] [address] [place] [address] * Lactate dehydrogenase (05/01/2025 3:00 AM EDT) Only the most recent of3 resultswithin the time period is included. LDH 225 120 - 246 U/L [facility] 05/01/2025 3:00 AM EDT 05/02/2025 2:21 PM EDT Juvenal Cr MD LAB BLOOD ORDERABLES Final Re sult Performing Organization Address [facility] Co de Phone Number [facility] [address] [place] [address] * (ABNORMAL) Glucose, random (05/01/2025 3:00 AM EDT) Only the most recent of3 resultswithin the time period is included. Glucose 144(H) 70 - 99 mg/dL [facility] Comment: ADA guidelines outline the following fasting glucose ranges: Normal: <100 Prediabetes: 100-125 Diabetes: >125 05/01/2025 3:00 AM EDT 05/02/2025 2:21 PM EDT Juvenal Cr MD LAB BLOOD ORDERABLES Final Re sult Performing Organization Address [facility] Co de Phone Number [facility] [address] [place] [address] * (ABNORMAL) Ferritin (05/01/2025 3:00 AM EDT) Only the most recent of3 resultswithin the time period is included. Ferritin 1,295(H) 22 - 322 ng/mL [facility] 05/01/2025 3:00 AM EDT 05/02/2025 2:21 PM EDT Juvenal Cr MD LAB BLOOD ORDERABLES Final Re sult Performing Organization Address [facility] de Phone Number [facility] [address] [place] [address] * (ABNORMAL) Creatinine, serum (05/01/2025 3:00 AM EDT) Only the most recent of3 resultswithin the time period is included. Creatinine 5.40(H) 0.70 - 1.30 mg/dL [facility] 05/01/2025 3:00 AM EDT 05/02/2025 2:21 PM EDT Juvenal Cr MD LAB BLOOD ORDERABLES Final Re sult Performing Organization Address [facility] de Phone Number [facility] [address] [place] [address] * Bilirubin, total (05/01/2025 3:00 AM EDT) Only the most recent of3 resultswithin the time period is included. Total Bilirubin 0.7 0.3 - 1.2 mg/dL [facility] 05/01/2025 3:00 AM EDT 05/02/2025 2:21 PM EDT Juvenal Cr MD LAB BLOOD ORDERABLES Final Re sult Performing Organization Address [facility] de Phone Number [facility] [address] [place] [address] * (ABNORMAL) Lipid panel (05/01/2025 3:00 AM EDT) Cholesterol 149 mg/dL [facility] Comment: Optimal: <200 Borderline: 200-239 High Risk: >239 Triglycerides 59 mg/dL [facility] Comment: Optimal: <150 Borderline: 150-200 High Risk: >200 HDL 49(L) mg/dL [facility] Comment: Optimal: >59 Borderline: 40-59 High Risk: <40 LDL-Calc 88 mg/dL [facility] Comment: Optimal: <100 Borderline: 100-159 High Risk: >159 VLDL Cholesterol Isaias 12 mg/dL [facility] Comment: Optimal: <30 Borderline: 30-40 High Risk: >40 Chol/HDL Ratio 3.0 [facility] Comment: Optimal: <3.3 High Risk: >6.2 05/01/2025 3:00 AM EDT 05/02/2025 2:21 PM EDT Juvenal Cr MD LAB BLOOD ORDERABLES Final Re sult Performing Organization Address [facility] de Phone Number [facility] [address] [place] [address] * (ABNORMAL) Electrolyte panel (05/01/2025 3:00 AM EDT) Only the most recent of3 resultswithin the time period is included. Sodium 132(L) 136 - 145 mEq/L [facility] Potassium 4.8 3.4 - 5.0 mEq/L [facility] Chloride 96(L) 98 - 107 mEq/L [facility] Bicarbonate (CO2) 23 21 - 31 mEq/L [facility] Anion Gap 13 3 - 14 mEq/L [facility] 05/01/2025 3:00 AM EDT 05/02/2025 2:21 PM EDT us Juvenal Cr MD LAB BLOOD ORDERABLES Final Re sult Performing Organization Address [facility] Co de Phone Number [facility] [address] [place] [address] * (ABNORMAL) Phosphorus (04/24/2025 3:00 AM EDT) Only the most recent of2 resultswithin the time period is included. Phosphorus, Serum 5.9(H) 2.5 - 5.0 mg/dL [facility] 04/24/2025 3:00 AM EDT 04/25/2025 2:26 PM EDT Juvenal Cr MD LAB BLOOD ORDERABLES Final Re sult Performing Organization Address [facility] de Phone Number [facility] [address] [place] [address] * Occult blood x 3, stool (01/22/2022) Occult Blood, Stool #1 Negative Negative [facility] Comment: Performed by [facility]. Occult Blood, Stool #2 Negative Negative [facility] Comment: Performed by [facility]. Collection Time 600 [facility] 01/22/2022 01/27/2022 1:2 3 PM EDT Narrative [facility] - 01/27/2022 Unless otherwise specified, test(s) performed at: [facility], [address] [place] [address] DATA ENTRY: Cruzito Knutson M.D. For any questions, please call customer service at FREQUENCY:OTHER Resulting Agency Comment Specimen source: Occult Blood Card us Juvenal Cr MD LAB BODY FLUIDS AND STOOLS OR DERABLES Final Result Performing Organization Address [facility] Co de Phone Number [facility] from Last 3 Months or Most Recently Relevant to Health Maintenance Insurance [place]
--- OUTSIDE RECORDS SUMMARY | 2025-05-28 19:30 | XMS_ITS | Encounter Summary ---
Author Organization [facility] Address [address] [facility] [address] [address] Phone Care Team Providers Care Employee Welfare Manager Name Role Phone Unavailable Primary Care Provider Unavailabl e Reason for Visit * Reason Onset Date Comments Med Refill 07/17/2021 Encounter Details Date Type Department Care Team (Late st Contact Info) Description 07/17/2021 Refill [facility] [address] [place] [place] [phone] Radha Palmer [address] [facility] [address] [place] [address] Social History Tobacco Use Types [...]
--- OUTSIDE RECORDS SUMMARY | 2025-05-28 19:31 | XMS_ITS | Encounter Summary ---
Author Organization [employer] [employer] Address [address] [facility] [address] [place] [address] Care Team Providers Care Cement Block Maker Name Role Phone Andie Whitmore Primary Care Provider [phone] Trevor Restrepo MD Unavailable [phone] Juvenal Cr MD Unavailable [phone] Kamiin Chavarria MD Unavailable Winston Bhagat DPM Unavailable [phone] Humberto Blackburn MD Unavailable Brent Durham Unavailable Encounter Details Date Type Department Care Team (Late st Contact Info) Description 02/26/2025 Orders Only [facility] [address], [place] [id number] Provider, MD Moo Social History Tobacco Use [...] documented as of this encounter Care Teams Cement Block Maker Relationship Specialty Start Date End Date Andie Whitmore FNP [address] [place] [address] PCP - General Family Medicine 11/04/21 Trevor Restrepo MD [address] [place] [address] Urology 07/29/24 Juvenal Cr MD [address] [facility] [address] [place] [address] Nephrology 07/29/24 Kamini Chavarria MD [address] [place] [address] Dr Lara [address] [place] [address] Neurology 07/29/24 Winston Bhagat DPM [address] [place] [address] Dr Lara [address] [place] [address] Podiatry 07/29/24 Humberto Blackburn MD [address] [place] [address] Vascular Surgery 04/19/25 Brent Durham [address] [place] [address] Pulmonary Disease 04/19/25 documented as of this encounter
--- OUTSIDE RECORDS SUMMARY | 2025-05-28 19:31 | XMS_ITS | Clinical Summary ---
Author Organization [employer] Address [address] [facility] 7t [place] [address] Care Team Providers Care Social Work Professor Name Role Phone Andie Whitmore Primary Care Provider [phone] Trevor Restrepo MD Unavailable [phone] [address] MD Unavailable [phone] Kamini Chavarria MD Unavailable Winston Bhagat DPM [...] (CMS/HC C) 04/19/2025 Overview (04/19/2025): Following with [facility] Pulm - Dr. Durham. Oxygen tank & [...] Following with Podiatry - Dr. Bhagat at [facility] Jun 2024: Debridement of toenails 6-10, [...] months PSA: hx prostate CA, following with [facility] Urology Heart failure with mildly re duced [...] Exacerbation w/ Hospitalization 08/04 - 08/07/23 at [facility] Exacerbation w/ Hospitalization 11/20-11/25/24 at [facility] ESRD on HD: communication with Dr. Cr [...] 02/18/2023 Overview (12/12/2023): Following with Dr. Restrepo ([facility] Urology) Hx of bilateral stent placement ESRD (end stage renal disease) 11/05/2021 Assessment & Plan (04/27/2023 2:16 PM EDT): -Hemodialysis MWF at [address] [place] [address] Dialysis (first shift) -Access: Left arm basilic vein transposition performed on 08/03/2021. -Mar 2023: fistulagram performed, [facility] Vascular Dr. Blackburn. Has been working well since Assessment & Plan (12/22/2022 8:12 PM EDT): -Hemodialysis MWF at [address] [place] [address] Dialysis -Access: Left arm basilic vein transposition performed on 08/03/2021. Have started to access fistula at dialysis -Left AVF w/ +thrill/+bruit Prostate cancer metastatic to bone 11/05/2021 Assessment & Plan (04/19/2025 4:41 PM EDT): [place] score ranging from 7 to 9. 10/05/21 cystoscopy with bilateral ureteral stent exchange performed by [facility] Urology Continue to follow with [facility] Urology - Dr. Restrepo Continue to follow with [facility] Heme/Onc Previously on Bicalutamide 50mg PO daily [...] with bilateral ureteral stent exchange performed by [facility] Urology Continue to follow with [facility] Urology - Dr. Restrepo Continue to follow with [facility] Heme/Onc Previously on Bicalutamide 50mg PO daily through Urology, currently taking Abiraterone 01/24/23: cystoscopy with bilateral stent exchange November 2023: Bone scan stable, no progression Target 3 years hormone therapy then reduction to intermittent anti-androgen Apr 2024: DXA normal Assessment & Plan (04/27/2023 2:17 PM EDT): [place] score ranging from 7 to 9. 10/05/21 cystoscopy with bilateral ureteral stent exchange performed by [facility] Urology Continue to follow with [facility] Urology - Dr. Restrepo Continue to follow with [facility] Heme/Onc Previously on Bicalutamide 50mg PO daily through Urology, currently taking Abiraterone 01/24/23: cystoscopy with bilateral stent exchange Assessment & Plan (12/22/2022 8:13 PM EDT): [place] score ranging from 7 to 9. 10/05/21 cystoscopy with bilateral ureteral stent exchange performed by [facility] Urology Continue to follow with [facility] Urology - Dr. Restrepo Continue to follow with [facility] Heme/Onc Previously on Bicalutamide 50mg PO daily [...] 2:30 PM EDT Office Visit [facility] [address] [place] [address] Andie Whitmore FNP Chronic respiratory failure with hypoxia (CMS/HCC) (Primary Dx); Onychomycosis; Prostate cancer metastatic to bone (CMS/HCC); Epidermal inclusion cyst; Primary hypertension 04/19/2025 Travel 04/18/2025 Orders Only GENERIC EXTERNAL DATA DEPARTMENT Provider, Generic External Data 04/12/2025 Patient Outreach [facility] [address] [place] [phone] Andie Whitmore FNP Pre-visit Planning (SDOH screening completed on 02/11/25 ) 03/04/2025 Telephone [facility] [address] [place] [address] Andie Whitmore FNP Hospital Follow-up 2025 Patient Outreach [facility] [address] [place] [address] [phone] Andie Whitmore FNP Transition Of Care (Tcm) (HDF Unscheduled) 02/26/2025 Orders Only [facility] & PEDS [address] [place] [address] Provider, MD Moo from Last 3 Months [...] Testosterone, Total 45(A) 250 - 1100 ng/dL [facility] Comment:Men with clinically significant hypogonadalsymptoms and testosterone values repeatedly inthe range of the 200-300 ng/dL or less, maybenefit from testosterone treatment afteradequate risk and benefits counseling.For additional information, please refer tohttp://education.[employer]benchee/faq/[email or web address](This link is being provided for informational/educational purposes only.)This test was developed and its analytical performancecharacteristics have been determined by [employer] [place], [place]. It hasnot been cleared or approved by the U.S. Food and DrugAdministration. This assay has been validated pursuantto the CLIA regulations and is used for clinicalpurposes.THIS TEST WAS PERFORMED AT:[employer] [place] [address]SOKXENFHELGA HAYES MD,PHD 04/18/2025 10:2 1 AM EDT 04/18/2025 1:16 PM EDT Generic External Data Provider LAB BLOOD ORDERAB LES Final Result Performing Organization Address City/[facility]/ZIP Co de Phone Number [facility] [address] [place] [phone] * PSA,Total (04/18/2025 10:21 AM EDT) Prostate Specific Antigen 2.76 <0.05 - 4.0 ng/mL [facility] Comment:PSA methodology: Abb bahman Alinity i ChemiluminescentMicroparticle Immunoassay (CMIA) 04/18/2025 10:2 1 AM EDT 04/18/2025 1:16 PM EDT Generic External Data Provider LAB BLOOD ORDERAB LES Final Result Performing Organization Address [facility]/ZIP Co de Phone Number [facility] [address] [place] [phone] * ECG 12 lead (02/25/2025 12:35 PM EDT) us Historical Provider ECG ORDERABLES Final Res ult * Lipid Panel, Standard (07/26/2024 11:25 AM EST) Triglycerides 54 <150 mg/dL [facility] Comment:Desirable Triglyceri de: less than 150 mg/dLBorderline High Triglyceride 150-199 mg/dLHigh Triglyceride: 200-499 mg/dLVery High Triglyceride: greater than or equal to 5OO mg/dL Cholesterol 142 <200 mg/dL [facility] Comment:Desirable Cholestero l: less than 200 mg/dLBorderline High Cholesterol: 200-239 mg/dLHigh Cholesterol: greater than 239 mg/dL LDL Cholesterol Calculated 83 <100 mg/dL [facility] Comment:Desirable LDL: less than 100 mg/dLNear Optimal/Above Optimal LDL: 110- 129 mg/dLBorderline High LDL: 130-159 mg/dLHigh LDL: 160-189 mg/dLVery High LDL: greater than or equal to 190 mg/dL HDL Cholesterol 49 >40 mg/dL [facility] Comment:Desirable HDL: great er than 40 mg/dL Note: This HDL assay may give artificially low results in patients with liver disease. Blood Venous blood specimen / Unknown 07/26/2024 11:25 AM EST 07/26/2024 1:05 PM EST Andie Whitmore MEDICAL STENOGRAPHER LAB BLOOD ORDERABLES Final Res ult [facility] [address] [place] [address] [phone] from Last 3 Months or Most Recently Relevant to Health Maintenance Insurance [place] [address] [place] [id number] [facility] Advance Directives Documents on File Type Date Recorded Patient Amalgamator Expl anation Advance Directives and Living Will 03/06/2025 9:37 AM Health Care Proxy [facility] Care Teams Social Work Professor Relationship Specialty Start Date End Date Andie Whitmore FNP [address] [place] [address] PCP - General Family Medicine 11/04/21 Trevor Restrepo MD [address] [place] [address] Urology 07/29/24 Juvenal Cr MD [address] [place] [address] Nephrology 07/29/24 Kamini Chavarrai MD [address] [place] [address] Dr [address] [place] [address] Neurology 07/29/24 Winston Bhagat DPM [address] [place] [address] Dr [address] [place] [address] Podiatry 07/29/24 Humberto Blackburn MD [address] [place] [address] Vascular Surgery 04/19/25 Brent Durham [address] [place] [address] Pulmonary Disease 04/19/25
--- OUTSIDE RECORDS SUMMARY | 2025-05-28 19:31 | XMS_ITS | Encounter Summary ---
Author Organization [employer] Address [address] [facility] 7t [place] [address] Care Team Providers Care Manager Of Supply Chain Name Role Phone Andie Whitmore Primary Care Provider Trevor Restrepo MD Unavailable [phone] Juvenal Cr MD Unavailable Kamini Chavarria MD Unavailable [phone] Winston Bhagat DPM Unavailable Humbreto Blackburn MD Unavailable Brent Durham Unavailable Encounter Details Date Type Department Care Team (Late st Contact Info) Description 12/21/2024 Orders Only [facility] & [facility]S [address] [place], [place] [phone] Andie Whitmore FNP [address] [place] [address] Social History Tobacco Use Types Packs/Day Years [...] the past 12 months, has t he untapt, gas, oil or water company threatened to [...] documented as of this encounter Care Teams Manager Of Supply Chain Relationship Specialty Start Date End Date Andie Whitmore FNP [address] [place] [address] PCP - General Family Medicine 11/04/21 Trevor Restrepo MD [address] [place] [address] Urology 07/29/24 Juvenal Cr MD [address] [facility] [address] [place] [address] Nephrology 07/29/24 Kamini Chavarria MD [address] [place] [address] Dr [address] [place] [address] Neurology 07/29/24 Winston Bhagat DPM [address] [place] [address] Dr [facility] [address] [place], [place] [phone] Podiatry 07/29/24 Humberto Blackburn MD [address] [place], [place] [phone] Vascular Surgery 04/19/25 Brent Durham [address] [place] [address] Pulmonary Disease 04/19/25 documented as of this encounter
--- OUTSIDE RECORDS SUMMARY | 2025-05-28 19:31 | XMS_ITS | Encounter Summary ---
Author Organization [employer] Address [address] [facility] 7t [place] [address] Care Team Providers Care Sales And Retail Management Recruiter Name Role Phone Andie Whitmore Primary Care Provider [phone] Trevor Restrepo MD Unavailable [phone] Juvenal Cr MD Unavailable Kamini Chavarria MD Unavailable Winston Bhagat DPM Unavailable Humberto Blackburn MD Unavailable Brent Durham Unavailable Reason for Referral * Imaging (Urgent) - Closed Specialty Diagnoses / Procedures Referred By Contac t Referred To Contact Cardiology Diagnoses ESRD (end stage renal disease) (HCC) Primary hypertension Shortness of breath Procedures Transthoracic Echo (TTE) Complete Andie Whitmore FNP [address] [place] [address] Phone: tel: fax: [facility] [address] [place] [address] Phone: tel: fax: Referral ID Status Reason Start Date Expiration Date V isits Requested Visits Authorized [id number] Closed Perform Procedure 06/29/2023 06/28/2024 1 1 Reason for Visit * Reason Onset Date Comments Call Back Request 06/21/2023 Encounter Details Date Type Department Care Team (Late st Contact Info) Description 06/21/2023 Telephone [facility] [address] [place] [address] Andie Whitmore FNP [address] [place] [address] Call Back Request Social History Tobacco Use [...] order of the heart. Contact pt at [phone] * Telephone Encounter - Iram Pierre RN [...] just once, had an EKG, and the bridge club manager said he was just fine. Patient has [...] pt and advise. * Telephone Encounter - Shnae Kerr - 06/21/2023 2:34 PM EST Tc from pt requesting a call from provider or a nurse in regards to yesterday appt that pt was informed by provider that he had liquid around his chest. Pt is requesting if provider is going to speakwith his Kidney provider due to the matter and him having dialysis tomorrow. Please contact pt at [phone] documented in this encounter Plan of Treatment Scheduled Orders Name Type Priority Associated Diagnoses Order Schedule Transthoracic Echo (TTE) Complete Echocardiography Urgent ESRD (end stage renal disease) ([facility]/HCC) Primary hypertension Shortness of breath Expected: 06/29/2023 [...] documented as of this encounter Care Teams Sales And Retail Management Recruiter Relationship Specialty Start Date End Date Myranda CORINNE Chaves [address] [place] [address] PCP - General Family Medicine 11/04/21 Trevro Restrepo MD [address] [place] [address] Urology 07/29/24 Juvenal Cr MD 100 [facility] [address] [place] [address] Nephrology 07/29/24 Kamini Chavarria MD [address] [facility] [address] [place] [address] Neurology 07/29/24 Winston Bhagat DPM [address] [facility] [address] [place] [address] Podiatry 07/29/24 Humberto Blackburn MD [address] [place] [address] Vascular Surgery 04/19/25 Brent Durham [address] [place] [address] Pulmonary Disease 04/19/25 documented as of this encounter
--- OUTSIDE RECORDS SUMMARY | 2025-05-28 19:31 | XMS_ITS | Encounter Summary ---
Author Organization [employer] Address [address] [facility] [address]t [place] [address] Care Team Providers Care Grain Combine Driver Name Role Phone Andie Whitmore Primary Care Provider [phone] Trevor Restrepo MD Unavailable Juvenal Cr MD Unavailable Kamini Chavarria MD Unavailable Winston Bhagat DPM Unavailable [phone] Humberto Blackburn MD Unavailable Brent Durham Unavailable Reason for Visit * Reason Onset Date Comments Medication Question 02/29/2024 Encounter Details Date Type Department Care Team ([facility] st Contact Info) Description 02/29/2024 Telephone [facility] [address] [place] [address] Andie Whitmore FNP [address] [place], [place] [phone] Medication Question Social History Tobacco Use Types [...] was discussed in sick appt on 02/27 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 ant medication pending documented in this encounter Plan of Treatment Not on file documented as of this encounter Visit Diagnoses Not on filedocumented in this encounter Additional Health Concerns Assessment Noted Time PHQ-9 Depression Total Score: 1 12/23/19 23 3:02 PM EDT documented as of this encounter Care Teams Grain Combine Driver Relationship Specialty Start Date End Date Andie Whitmore FNP [address] [place] [address] PCP - General Family Medicine 11/04/21 Trevor Restrepo MD [address] [place] [address] Urology 07/29/24 Juvenal Cr MD 100 [facility] 200 [place] [address] Nephrology 07/29/24 Kamini Chavarria MD [address] [place] [address] Dr [address] [place] [address] Neurology 07/29/24 Winston Bhagat DPM [address] [place] [address] Dr [address]ara [address] [place] [address] Podiatry 07/29/24 Humberto Blackburn MD [address] [place] [address] Vascular Surgery 04/19/25 Brent Durham [address] [place] [address] Pulmonary Disease 04/19/25 documented as of this encounter
--- OUTSIDE RECORDS SUMMARY | 2025-05-28 19:31 | XMS_ITS | Clinical Summary ---
Author Organization 175 [facility] Address [address] [place] [address] Phone Care Team Providers Care Sash Installer Name Role Phone Andie Whitmore creative manager Provider Allergies No known active allergies Medications [...] disease 03/05/2024 ESRD (end stage renal disease) ([facility] V24, [facility] V28) 03/02/2024 Heart failure with mildly re duced ejection fraction ([facility] V24, [facility] V28) 03/02/2024 HTN (hypertension) 03/02/2024 Obstructive uropathy 03/02/2024 Onychauxis 03/02/2024 Onychomycosis 03/02/2024 Prostate cancer metastatic t o bone ([facility] V24, [facility] V28) 03/02/2024 Secondary hyperparathyroidism of renal origin ([facility] [place] V24) 03/02/2024 Encounters Date Type Department Care Team Description 02/25/2025 6:01 AM EDT - 02/27/2025 2:22 PM EDT Hospital Encounter [facility] Intermediate Care Unit [address] [place] [address] Juvenal Feng MD [place], MD [...] K/mcL LAB HEMETOLOGY METHOD 02/27/2025 6:43 AM [facility] RBC 3.40(L) 4.50 - 5.50 M/[facility] LAB HEMETOLOGY METHOD 02/27/2025 6:43 AM [facility] Hemoglobin 9.3(L) 13.5 - 17.5 g/dL LAB HEMETOLOGY METHOD 02/27/2025 6:43 AM [facility] Hematocrit 30.3(L) 42.0 - 54.0 % LAB HEMETOLOGY METHOD 02/27/2025 6:43 AM [facility] MCV 89.4 79.0 - 98.0 FL LAB HEMETOLOGY METHOD 02/27/2025 6:43 AM [facility] MCH 27.4 27.0 - 32.0 pcg LAB HEMETOLOGY METHOD 02/27/2025 6:43 AM [facility] MCHC 30.7(L) 32.0 - 37.0 g/dL LAB HEMETOLOGY METHOD 02/27/2025 6:43 AM [facility] RDW 19.1(H) 11.0 - 15.0 % LAB HEMETOLOGY METHOD 02/27/2025 6:43 AM EDT [facility] Platelets 146 130 - 400 K/mcL LAB HEMETOLOGY METHOD 02/27/2025 6:43 AM EDT [facility] MPV 12.5(H) 7.0 - 11.0 FL LAB HEMETOLOGY METHOD 02/27/2025 6:43 AM EDT [facility] NRBC 0.0 <1.0 % LAB HEMETOLOGY METHOD 02/27/2025 6:43 AM EDT [facility] NRBC Absolute 0.00 <0.10 K/mcL LAB HEMETOLOGY METHOD 02/27/2025 6:43 AM EDT [facility] Blood Venous blood specimen / Unknown Venipuncture / Unknown 02/27/2025 5:16 AM EDT 02/27/2025 6:19 AM EDT us Joshua Rudd MD LAB BLOOD ORDERABLE S Final Result [facility] [address] [place] [address], * (ABNORMAL) Phosphorus (02/27/2025 5:16 AM EDT) Phosphorus 7.6(H) 2.5 - 4.5 mg/dL LAB CHEMISTRY METHOD 02/27/2025 7:42 AM EDT [facility] Comment:Results verified by repeat testing Blood Venous blood specimen / Unknown Venipuncture / Unknown 02/27/2025 5:16 AM EDT 02/27/2025 6:20 AM EDT us Joshua Rudd MD LAB BLOOD ORDERABLE S Final Result [facility] [address] [place] [address], [place] [phone] * Magnesium (02/27/2025 5:16 AM EDT) [facility] Magnesium 2.2 1.9 - 2.6 mg/dL LAB CHEMISTRY METHOD 02/27/2025 7:14 AM EDT [facility] Blood Venous blood specimen / Unknown Venipuncture / Unknown 02/27/2025 5:16 AM EDT 02/27/2025 6:20 AM EDT Joshua Rudd MD LAB BLOOD ORDERABLE S Final Result [facility] [address] [place] [address], [place] [phone] * (ABNORMAL) Basic metabolic panel (02/27/2025 5:16 AM EDT) Only the most recent of2 resultswithin the time period is included. [facility] Sodium 132(L) 133 - 145 mmol/L LAB CHEMISTRY METHOD 02/27/2025 7:26 AM [facility] Potassium 4.8 3.5 - 5.5 mmol/L LAB CHEMISTRY METHOD 02/27/2025 7:26 AM [facility] Chloride 94(L) 96 - 110 mmol/L LAB CHEMISTRY METHOD 02/27/2025 7:26 AM [facility] CO2 31 21 - 32 mmol/L LAB CHEMISTRY METHOD 02/27/2025 7:26 AM [facility] Anion Gap 7 3 - 11 LAB CHEMISTRY METHOD 02/27/2025 7:26 AM [facility] Glucose 90 70 - 100 mg/dL LAB CHEMISTRY METHOD 02/27/2025 7:26 AM [facility] BUN 63(H) 5 - 25 mg/dL LAB CHEMISTRY METHOD 02/27/2025 7:26 AM EDT [facility] Creatinine 5.64(H) 0.70 - 1.30 mg/dL LAB CHEMISTRY METHOD 02/27/2025 7:26 AM T [facility] eGFR 11(L) >=60 mL/min/1. 73m2 LAB CHEMISTRY METHOD 02/27/2025 7:26 AM T [facility] Comment:Calculation based on the Chronic Kidney Disease Epidemiology Collaboration (CKD-EPI) equation refit without adjustment for race. BUN/Creatinine Ratio 11.2 LAB CHEMISTRY METHOD 02/27/2025 7:26 AM [facility] Calcium 9.2 8.5 - 10.5 mg/dL LAB CHEMISTRY METHOD 02/27/2025 7:26 AM [facility] Blood Venous blood specimen / Unknown Venipuncture / Unknown 02/27/2025 5:16 AM EDT 02/27/2025 6:20 AM EDT Joshua Rudd MD LAB BLOOD ORDERABLE S Final Result [facility] [address] [place] [address], * (ABNORMAL) CBC auto differential (02/26/2025 5:18 AM EDT) WBC 10.2 4.8 - 10.8 K/mcL LAB HEMETOLOGY METHOD 02/26/2025 7:09 AM [facility] RBC 3.30(L) 4.50 - 5.50 M/mcL LAB HEMETOLOGY METHOD 02/26/2025 7:09 AM [facility] Hemoglobin 9.2(L) 13.5 - 17.5 g/dL LAB HEMETOLOGY METHOD 02/26/2025 7:09 AM [facility] Hematocrit 29.8(L) 42.0 - 54.0 % LAB HEMETOLOGY METHOD 02/26/2025 7:09 AM [facility] MCV 89.2 79.0 - 98.0 FL LAB HEMETOLOGY METHOD 02/26/2025 7:09 AM [facility] MCH 27.5 27.0 - 32.0 pcg LAB HEMETOLOGY METHOD 02/26/2025 7:09 AM [facility] MCHC 30.9(L) 32.0 - 37.0 g/dL LAB HEMETOLOGY METHOD 02/26/2025 7:09 AM [facility] RDW 19.1(H) 11.0 - 15.0 % LAB HEMETOLOGY METHOD 02/26/2025 7:09 AM [facility] Platelets 141 130 - 400 K/mcL LAB HEMETOLOGY METHOD 02/26/2025 7:09 AM [facility] MPV 11.0 7.0 - 11.0 FL LAB HEMETOLOGY METHOD 02/26/2025 7:09 AM [facility] NRBC 0.0 <1.0 % LAB HEMETOLOGY METHOD 02/26/2025 7:09 AM [facility] NRBC Absolute 0.00 <0.10 K/mcL LAB HEMETOLOGY METHOD 02/26/2025 7:09 AM [facility] Neutrophils Relative 84.7 % LAB HEMETOLOGY METHOD 02/26/2025 7:09 AM [facility] Lymphocytes Relative 8.0 % LAB HEMETOLOGY METHOD 02/26/2025 7:09 AM [facility] Monocytes Relative 5.6 % LAB HEMETOLOGY METHOD 02/26/2025 7:09 AM [facility] Eosinophils Relative 0.3 % LAB HEMETOLOGY METHOD 02/26/2025 7:09 AM [facility] Basophils Relative 0.6 % LAB HEMETOLOGY METHOD 02/26/2025 7:09 AM EDT [facility] Immature Granulocytes Relative 0.8 % LAB HEMETOLOGY METHOD 02/26/2025 7:09 AM EDT [facility] Neutrophils Absolute 8.67(H) 1.50 - 7.00 K/mcL LAB HEMETOLOGY METHOD 02/26/2025 7:09 AM EDT [facility] Lymphocytes Absolute 0.82(L) 1.00 - 5.00 K/mcL LAB HEMETOLOGY METHOD 02/26/2025 7:09 AM EDT [facility] Monocytes Absolute 0.57 0.20 - 1.00 K/mcL LAB [facility]OLOGY [facility] Eosinophils Absolute 0.03 0.00 - 0.50 K/mcL LAB HEMETOLOGY METHOD 02/26/2025 7:09 AM EDT [facility] Basophils Absolute 0.06 0.00 - 0.20 K/mcL LAB HEMETOLOGY METHOD 02/26/2025 7:09 AM EDT [facility] Immature Granulocytes Absolute 0.08(H) 0.00 - 0.03 K/mcL LAB HEMETOLOGY [facility] Blood Venous blood specimen / Unknown Venipuncture / Unknown 02/26/2025 5:18 AM EDT 02/26/2025 6:39 AM EDT us Cassi SHELDON LAB BLOOD ORDERABLES Final Result [facility]) [facility] [address] [place] [address], * (ABNORMAL) Troponin I high sensitivity (NOW and then in 1 hour) (02/25/2025 7:40 AM EDT) Only the most recent of2 resultswithin the time period is included. High Sensitivity Troponin I 93(H) <=79 ng/L LAB CHEMISTRY METHOD 02/25/2025 8:22 AM EDT [facility] Blood Venous blood specimen / Unknown Venipuncture / Unknown 02/25/2025 7:40 AM EDT 02/25/2025 7:58 AM EDT Narrative [facility] - 02/25/2025 8:22 AM EDT High levels of biotin in samples may falsely decrease hsTroponin values. Use caution when interpreting hsTroponin results in patients taking biotin who exhibit renal impairment (eGFR <60) or in patients taking more than 20 mg/day of biotin. us Bernie Bergeron MD LAB BLOOD ORDERABLES Final Res ult [facility] [address] [place] [address], * XR Chest 1 View (02/25/2025 7:35 [...] Signed Date: 02/25/2025 08:09 ET Workstation ID: [id number] Transcribed By: Self Edit Transcribed Date: 02/25/2025 [...] Signed Date: 02/25/2025 08:09 ET Workstation ID: [id number] Transcribed By: Self Edit Transcribed Date: 02/25/2025 08:09 ET us Bernie Bergeron MD IMG XR PROCEDURES Final Result * Hepatitis B surface antigen with reflex to confirmation (02/25/2025 6:27 AM EDT) Pathologist [facility] Hepatitis B Surface Ag Negative Negative LAB CHEMISTRY METHOD 02/25/2025 5:13 PM EDT [facility] Blood Venous blood specimen / Unknown Venipuncture / Unknown 02/25/2025 6:27 AM EDT 02/25/2025 6:32 AM EDT Narrative [facility] - 02/25/2025 5:13 PM EDT Over the counter supplements containing high doses of biotin may interfere with this assay. If interference is suspected, patients shoud be retested after refraining from biotin supplements for 72 hours. us Linn Miller MD LAB BLOOD ORDERABLES Final Res ult [facility] [address] [place] [address], * (ABNORMAL) Procalcitonin (02/25/2025 6:27 AM EDT) Pathologist [facility] Procalcitonin 1.72(H) <=0.16 ng/mL LAB CHEMISTRY METHOD 02/25/2025 1:44 PM EDT [facility] Blood Venous blood specimen / Unknown Venipuncture / Unknown 02/25/2025 6:27 AM EDT 02/25/2025 6:32 AM EDT Narrative [facility] - 02/25/2025 1:44 PM [...] Cassi SHELDON LAB BLOOD ORDERABLES Final Result [facility] [address] [place] [address], * Hepatitis B surface antibody quantitative (02/25/2025 6:27 AM EDT) Hepatitis B Surface Ab Negative Negative LAB CHEMISTRY METHOD 02/25/2025 5:27 PM EDT [facility] Hepatitis B Surface Ab Quantitative <3.1 mIU/mL LAB CHEMISTRY METHOD 02/25/2025 5:27 PM EDT [facility] Blood Venous blood specimen / Unknown Venipuncture / Unknown 02/25/2025 6:27 AM EDT 02/25/2025 6:32 AM EDT Narrative [facility] - 02/25/2025 5:27 PM EDT >=10 mIU/mL is considered to be consistent with immunity. Linn Miller MD LAB BLOOD ORDERABLES Final Res ult Performing Organization Address City/[facility]/ZIP Co de Phone Number [facility] [address] [place] [address], [place] [phone] * (ABNORMAL) BNP (02/25/2025 6:27 AM EDT) Pathologist [facility] BNP 2,343(H) <=100 pcg/mL LAB CHEMISTRY METHOD 02/25/2025 7:06 AM EDT [facility] Blood Venous blood specimen / Unknown Venipuncture / Unknown 02/25/2025 6:27 AM EDT 02/25/2025 6:32 AM EDT Bernie Bergeron MD LAB BLOOD ORDERABLES Final Res ult Performing Organization Address [facility]/ZIP Co de Phone Number [facility] [address] [place] [address], [place] [phone] * (ABNORMAL) Blood gas, venous (02/25/2025 6:27 AM EDT) pH, Rober 7.42 7.32 - 7.42 pH 02/25/2025 6:35 AM EDT [facility] pCO2, Rober 39(L) 41 - 51 mmHg 02/25/2025 6:35 AM EDT [facility] pO2, Rober 51(H) 25 - 40 mmHg 02/25/2025 6:35 AM EDT [facility] HCO3, Venous 25.2 22.0 - 26.0 mmol/L 02/25/2025 6:35 AM EDT [facility] O2 Sat, Rober 82.8 % 02/25/2025 6:35 AM T [facility] Base Excess, Rober 0.8 -2.0 - 2.0 mmol/L 02/25/2025 6:35 AM [facility] Blood Venous blood specimen / Unknown Venipuncture / Unknown 02/25/2025 6:27 AM EDT 02/25/2025 6:32 AM EDT us Bernie Bergeron MD LAB BLOOD ORDERABLES Final Res ult [facility] [address] [place] [address], * (ABNORMAL) Comprehensive metabolic panel (02/25/2025 6:27 AM EDT) Sodium 133 133 - 145 mmol/L LAB CHEMISTRY METHOD 02/25/2025 7:16 AM [facility] Potassium 5.7(H) 3.5 - 5.5 mmol/L LAB CHEMISTRY METHOD 02/25/2025 7:16 AM [facility] Chloride 98 96 - 110 mmol/L LAB CHEMISTRY METHOD 02/25/2025 7:16 AM [facility] CO2 25 21 - 32 mmol/L LAB CHEMISTRY METHOD 02/25/2025 7:16 AM [facility] Anion Gap 10 3 - 11 LAB CHEMISTRY METHOD 02/25/2025 7:16 AM [facility] Glucose 133(H) 70 - 100 mg/dL LAB CHEMISTRY METHOD 02/25/2025 7:16 AM [facility] BUN 86(H) 5 - 25 mg/dL LAB CHEMISTRY METHOD 02/25/2025 7:16 AM [facility] Comment:Results verified by repeat testing Creatinine 6.44(H) 0.70 - 1.30 mg/dL LAB CHEMISTRY METHOD 02/25/2025 7:16 AM [facility] Comment:Results verified by repeat testing eGFR 9(L) >=60 mL/min/1. 73m2 LAB CHEMISTRY METHOD 02/25/2025 7:16 AM [facility] Comment:Calculation based on the Chronic Kidney Disease Epidemiology Collaboration (CKD-EPI) equation refit without adjustment for race. BUN/Creatinine Ratio 13.4 LAB CHEMISTRY METHOD 02/25/2025 7:16 AM [facility] Calcium 10.0 8.5 - 10.5 mg/dL LAB CHEMISTRY METHOD 02/25/2025 7:16 AM [facility] AST (SGOT) 26 10 - 42 unit/L LAB CHEMISTRY METHOD 02/25/2025 7:16 AM [facility] ALT (SGPT) 27 10 - 60 unit/L LAB CHEMISTRY METHOD 02/25/2025 7:16 AM [facility] Alkaline Phosphatase 263(H) 42 - 121 unit/L LAB CHEMISTRY METHOD 02/25/2025 7:16 AM [facility] Total Protein 6.7 6.0 - 8.0 g/dL LAB CHEMISTRY METHOD 02/25/2025 7:16 AM [facility] Albumin 3.5 3.2 - 5.0 g/dL LAB CHEMISTRY METHOD 02/25/2025 7:16 AM [facility] Total Bilirubin 1.1 0.0 - 1.4 mg/dL LAB CHEMISTRY METHOD 02/25/2025 7:16 AM [facility] Blood Venous blood specimen / Unknown Venipuncture / Unknown 02/25/2025 6:27 AM EDT 02/25/2025 6:32 AM EDT us Bernie Bergeron MD LAB BLOOD ORDERABLES Final Res ult [facility] [address] [place] [address], * ECG 12 lead (02/25/2025 6:17 AM EDT) Ventricular Rate ECG 83 BPM GEMUSE Atrial Rate 83 BPM GEMUSE P-R Interval 158 ms GEMUSE QRS Duration 86 ms GEMUSE Q-T Interval 378 ms GEMUSE QTc 444 ms GEMUSE P Wave [place] 70 degrees GEMUSE R [place] -57 degrees GEMUSE T [place] 90 degrees GEMUSE ECG Interpretation Normal sinus [...] Documents on File Type Date Recorded Patient Snorkelling Instructor Expl anation Advance Directives and Living Will 02/25/2025 2:59 PM [facility] * Full Code - Default [...] Relationship Healthcare Agent Relationshi p Communication Kayleenlita SandyAugusta Health Care Agent Care Teams Sash Installer Relationship Specialty Start Date End Date Andie Whitmore RN [address] [address] PCP - General 12/14/23
--- OUTSIDE RECORDS SUMMARY | 2025-05-28 19:31 | XMS_ITS | Encounter Summary ---
Author Organization [facility] Address [address] [address] Phone Care Team Providers Care Community Relations Rep Name Role Phone Unavailable Primary Care Provider Unavailabl e Encounter Details Date Type Department Care Team ([facility] st Contact Info) Description 11/12/2024 TCM in Dialysis Clinic [facility] [address] [address] Clinton Ortega MD [address] [address] Social History Tobacco Use Types [...] obtained. The patient was seen for a [id number] visit as part of Transitional Care Management services. Attending Live In Housekeeper: CLINTON ORTEGA Dialysis Location: [facility] Schedule: Shift: 1 INTERACTIVE CONTACT Contact [...] patient or caregiver VISIT DIAGNOSES CPT Code 15507 - High complexity, seen within 7 days [...]
--- OUTSIDE RECORDS SUMMARY | 2025-05-28 19:31 | XMS_ITS | Encounter Summary ---
Author Organization [employer] Address [address] [facility] 7[address] [place] [address] Care Team Providers Care Lens Coater Name Role Phone Andie Whitmore Primary Care Provider Trevor Restrepo MD Unavailable [phone] [address] MD Unavailable [phone] Kamini Chavarria MD Unavailable Winston Bhagat DPM Unavailable Humberto Blackburn MD Unavailable Brent Durham Unavailable Reason for Visit * Reason Onset Date Comments Hospital Follow-up 11/09/2024 Encounter Details Date Type Department Care Team ([facility] st Contact Info) Description 11/09/2024 Telephone [facility] & PEDS [address] [place], [place] [phone] Andie Whitmore FNP [address] [place], [place] [phone] Hospital Follow-up Social History Tobacco Use Types [...] from pt requesting a F appt. Hospital: [facility] Date of admission: 11/04/24 Discharge date: 11/08/24 Diagnosed: pneumonia *Send message to [place] Clinical Care Coordinators documented in this encounter Plan of Treatment Not on file documented as of this encounter Visit Diagnoses Not on filedocumented in this encounter Additional Health Concerns Assessment Noted Time PHQ-9 Depression Total Score: 1 12/23/19 23 3:02 PM EDT documented as of this encounter Care Teams Lens Coater Relationship Specialty Start Date End Date Andie Whitmore FNP [address] [place] [phone] PCP - General Family Medicine 11/04/21 Trevor Restrepo MD [address] [place] [address] [address] [place] [address] Urology 07/29/24 Juvenal Cr MD [address] [facility] [address] [place] [address] Nephrology 07/29/24 Kamini Chavarria MD [address] [place] [address] Dr [address]ara [address] [place] [address] Neurology 07/29/24 Winston Bhagat DPM [address] [place] [address] Dr [address] [place] [address] Podiatry 07/29/24 Humberto Blackburn MD [address] [place], [place] [phone] Vascular Surgery 04/19/25 Brent Durham [address] [place] [address] Pulmonary Disease 04/19/25 documented as of this encounter
--- OUTSIDE RECORDS SUMMARY | 2025-05-28 19:31 | XMS_ITS | Encounter Summary ---
Author Organization [facility] Address [address] [address] Phone Care Team Providers Care Junior Java Developer Name Role Phone Unavailable Primary Care Provider Unavailabl e Encounter Details Date Type Department Care Team (Late st Contact Info) Description 03/01/2025 TCM in Dialysis Clinic [facility] [address] [address] Clinton Ortega MD [address] [address] Social History Tobacco Use Types [...] 03/01/2025 The patient was seen for a [id number] visit as part of Transitional Care Management services. Attending Manager Mac: CLINTON ORTEGA Dialysis Location: [facility] Schedule: Shift: 1 INTERACTIVE CONTACT Contact [...] - EDW decreased. VISIT DIAGNOSES CPT Code 34424 - High complexity, seen 8-14 days post discharge or moderate complexity, seen [id number] days of discharge. N18.6 End stage renal disease Signed by: CLINTON ORTEGA MD on 03/04/2025 at 04:31:25 AM Transcribed by: CLINTON ORTEGA MD on 03/04/2025 at 04:31:25 AM documented in this encounter Plan of Treatment Not on file documented as of this encounter Visit Diagnoses Not on filedocumented in this encounter
== END 2025-05-28 15:45 | disposition home or self-care (01) ==
LOC: HO.HVS 15:05
PROVIDERS: PCP Registered Nurse; Visit Provider Surgery Vascular Surgery
DX: N18.6 End stage renal disease (principal)
CPT/HCPCS: 99214

== ENCOUNTER → 2025-05-28 15:04 | Outpatient (BNVA) | payer MEDICARE, MEDICAID, SELFPAY | PROVIDERS: PCP Registered Nurse; Visit Provider Surgery Vascular Surgery | DX: T82.838A Hemorrhage due to vascular prosthetic devices, implants and grafts, initial encounter (principal); N18.6 End stage renal disease; Z99.2 Dependence on renal dialysis | CPT/HCPCS: 99212 ==

== ENCOUNTER 2025-06-06 06:25 | Day surgery (SDC) | payer MEDICARE, MEDICAID, SELFPAY ==
--- OUTSIDE RECORDS SUMMARY | 2025-05-31 11:31 | XMS_ITS | Encounter Summary ---
Author Organization [facility] Address [address] [facility] [address] [address] Phone Care Team Providers Care Bilingual Call Center Representative Name Role Phone Unavailable Primary Care Provider Unavailabl e Reason for Visit * Reason Onset Date Comments Med Refill 07/17/2021 Encounter Details Date Type Department Care Team (Late st Contact Info) Description 07/17/2021 Refill [facility] [address] [place] [address] [place] [phone] Radha Palmer [address] [facility] [address] [place] [address] Social History Tobacco Use Types [...]
--- OUTSIDE RECORDS SUMMARY | 2025-05-31 11:32 | XMS_ITS | Encounter Summary ---
Author Organization [facility] Address [address] [address] Phone Care Team Providers Care Candy Depositing Machine Operator Name Role Phone Unavailable Primary Care Provider Unavailabl e Encounter Details Date Type Department Care Team ([facility] st Contact Info) Description 11/12/2024 TCM in Dialysis Clinic [facility] [address] [address] Clinton Ortega MD [address] [address] Social History Tobacco Use Types [...] obtained. The patient was seen for a [id number] visit as part of Transitional Care Management services. Attending Medical Sales Associate: CLINTON ORTEGA Dialysis Location: [facility] Schedule: Shift: 1 INTERACTIVE CONTACT Contact [...] patient or caregiver VISIT DIAGNOSES CPT Code 77167 - High complexity, seen within 7 days [...]
--- OUTSIDE RECORDS SUMMARY | 2025-05-31 11:32 | XMS_ITS | Encounter Summary ---
Author Organization [facility] Address [address] [address] Phone Care Team Providers Care Car Repossessor Name Role Phone Unavailable Primary Care Provider Unavailabl e Encounter Details Date Type Department Care Team (Late st Contact Info) Description 03/01/2025 TCM in Dialysis Clinic [facility] [address] [address] Clinton Ortega MD [address] [address] Social History Tobacco Use Types [...] 03/01/2025 The patient was seen for a [id number] visit as part of Transitional Care Management services. Attending Entertainment Lawyer: CLINTON ORTEGA Dialysis Location: [facility] Schedule: Shift: 1 INTERACTIVE CONTACT Contact [...] - EDW decreased. VISIT DIAGNOSES CPT Code 14183 - High complexity, seen 8-14 days post discharge or moderate complexity, seen days of discharge. N18.6 End stage renal disease Signed by: CLINTON ORTEGA MD on 03/04/2025 at 04:31:25 AM Transcribed by: CLINTON ORTEGA MD on 03/04/2025 at 04:31:25 AM documented in this encounter Plan of Treatment Not on file documented as of this encounter Visit Diagnoses Not on filedocumented in this encounter
--- OUTSIDE RECORDS SUMMARY | 2025-05-31 11:32 | XMS_ITS | Encounter Summary ---
Author Organization [employer] Address [address] [employer] [address] [place] [address] Care Team Providers Care Bobbin Inspector Name Role Phone Andie Whitmore Primary Care Provider Trevor Restrepo MD Unavailable Juvenal Cr MD Unavailable Kamini Chavarria MD Unavailable Winston Bhagat DPM Unavailable [phone] Humberto Blackburn MD Unavailable Brent Durham Unavailable Encounter Details Date Type Department Care Team (Late st Contact Info) Description 12/21/2024 Orders Only [facility] MED & PEDS [address] [place], [place] [phone] Andie Whitmore FNP [address] [place] [address] Social History Tobacco Use Types Packs/Day Years [...] the past 12 months, has t he [employer], gas, oil or water company threatened to [...] documented as of this encounter Care Teams Bobbin Inspector Relationship Specialty Start Date End Date Andie Whitmore FNP [address] [place] [address] PCP - General Family Medicine 11/04/21 Trevor Restrepo MD [address] [place] [address] Urology 07/29/24 Juvenal Cr MD [facility] [address] [place] [address] Nephrology 07/29/24 Kamini Chavarria MD [address] [place] [address] Dr Lara [address] [place] [address] Neurology 07/29/24 Winston Bhagat DPM [address] [place] [address] Dr [facility] 140 [place], [place] [phone] Podiatry 07/29/24 Humberto Blackburn MD [address] [place], [place] [phone] Vascular Surgery 04/19/25 Brent Durham [address] [place] [address] Pulmonary Disease 04/19/25 documented as of this encounter
--- OUTSIDE RECORDS SUMMARY | 2025-05-31 11:32 | XMS_ITS | Encounter Summary ---
Author Organization [employer] Address [address] [facility] 7t [place] [address] Care Team Providers Care Enamel Drier Name Role Phone Andie Whitmore Primary Care Provider [phone] Trevor Restrepo MD Unavailable [phone] Juvenal Cr MD Unavailable [phone] Kamini Chavarria MD Unavailable [phone] Winston Bhagat DPM Unavailable [phone] Humberto Blackburn MD Unavailable Brent Durham Unavailable Encounter Details Date Type Department Care Team (Late st Contact Info) Description 02/26/2025 Orders Only [facility] CH[facility] MED & PEDS [address] [place], [place] [phone] Provider, MD Moo Social History Tobacco Use [...] documented as of this encounter Care Teams Enamel Drier Relationship Specialty Start Date End Date Andie Whitmore FNP [address] [place] [address] PCP - General Family Medicine 11/04/21 Trevor Restrepo MD [address] [place] [address] Urology 07/29/24 Juvenal Cr MD 100 [facility] 200 [place] [address] Nephrology 07/29/24 Kamini Chavarria MD [address] [place] [address] Dr Lara [address] [place] [address] Neurology 07/29/24 Winston Bhagat DPM [address] [place] [address] Dr Lara [address] [place] [address] Podiatry 07/29/24 Humberto Blackburn MD [address] [place] [address] Vascular Surgery 04/19/25 Brent Durham [address] [place] [address] Pulmonary Disease 04/19/25 documented as of this encounter
--- OUTSIDE RECORDS SUMMARY | 2025-05-31 11:32 | XMS_ITS | Clinical Summary ---
Author Organization [address] [facility] Address [address] [place] [address] Phone Care Team Providers Care Senior Technical Support Engineer Name Role Phone Andie Whitmore perfumer Provider Allergies No known active allergies Medications [...] disease 03/05/2024 ESRD (end stage renal disease) ([facility] V24, [facility] V28) 03/02/2024 Heart failure with mildly re duced ejection fraction ([facility] V24, [facility] V28) 03/02/2024 HTN (hypertension) 03/02/2024 Obstructive uropathy 03/02/2024 Onychauxis 03/02/2024 Onychomycosis 03/02/2024 Prostate cancer metastatic t o bone ([facility] V24, [facility] V28) 03/02/2024 Secondary hyperparathyroidism of renal origin ([facility] V24) 03/02/2024 Social History Tobacco Use Types Packs/Day Years [...] 12/17/2014 COVID-19 Vaccine (8 - Pfizer risk season) 2025 03/29/2024, 06/30/2023, 06/10/2022, Additional history [...] Date/Time Associated Diagnosis Comments ECG ANNOTATED 2025 BASIC METABOLIC PANEL Routine 02/27/2025 5:16 AM EDT from Last 3 Months or Most Recently Relevant to Health Maintenance Results * ECG-Annotated (2025) us Provider Onbase MD ECG ORDERABLES Final Result * (ABNORMAL) Basic metabolic panel (02/27/2025 5:16 AM EDT) Sodium 132(L) 133 - 145 mmol/L LAB CHEMISTRY METHOD 02/27/2025 7:26 AM [facility] Potassium 4.8 3.5 - 5.5 mmol/L LAB CHEMISTRY METHOD 02/27/2025 7:26 AM [facility] Chloride 94(L) 96 - 110 mmol/L LAB CHEMISTRY METHOD 02/27/2025 7:26 AM [facility] CO2 31 21 - 32 mmol/L LAB CHEMISTRY METHOD 02/27/2025 7:26 AM [facility] Anion Gap 7 3 - 11 LAB CHEMISTRY METHOD 02/27/2025 7:26 AM [facility] Glucose 90 70 - 100 mg/dL LAB CHEMISTRY METHOD 02/27/2025 7:26 AM [facility] BUN 63(H) 5 - 25 mg/dL LAB CHEMISTRY METHOD 02/27/2025 7:26 AM [facility] Creatinine 5.64(H) 0.70 - 1.30 mg/dL LAB CHEMISTRY METHOD 02/27/2025 7:26 AM [facility] eGFR 11(L) >=60 mL/min/1. 73m2 LAB CHEMISTRY METHOD 02/27/2025 7:26 AM [facility] Comment:Calculation based on the Chronic Kidney Disease Epidemiology Collaboration (CKD-EPI) equation refit without adjustment for race. BUN/Creatinine Ratio 11.2 LAB CHEMISTRY METHOD 02/27/2025 7:26 AM [facility] Calcium 9.2 8.5 - 10.5 mg/dL LAB CHEMISTRY METHOD 02/27/2025 7:26 AM [facility] Blood Venous blood specimen / Unknown Venipuncture / Unknown 02/27/2025 5:16 AM EDT 02/27/2025 6:20 AM EDT Joshua Rudd MD LAB BLOOD ORDERABLE S Final Result [facility] [address] [place] [address], [place] [phone] from Last 3 Months or Most Recently Relevant to Health Maintenance Insurance MEDICAID - [place] MEDICARE Advance Directives Documents on File Type Date Recorded Patient Seam Checker Expl anation Advance Directives and Living Will 02/25/2025 2:59 PM Kayleen Packer [facility] Care Proxy * Full Code - Default [...] Agents on File Name Relationship Healthcare Agent [facility] Care Agent Care Teams Senior Technical Support Engineer Relationship Specialty Start Date End Date Andie Whitmore RN [address] [place] [phone] PCP - General 12/14/23
--- OUTSIDE RECORDS SUMMARY | 2025-05-31 11:32 | XMS_ITS | Clinical Summary ---
Author Organization [employer] Address [address] [facility] 7t [place] [address] Care Team Providers Care Insurance Loss Control Surveyor Name Role Phone Andie Whitmore Primary Care Provider [phone] Trevor Restrepo MD Unavailable Juvenal Cr MD Unavailable [phone] Kamini Chavarria MD Unavailable Winston Bhagat DPM Unavailable [phone] Humberto Blackburn MD Unavailable Brent Durham Unavailable [...] (CMS/HC C) 04/19/2025 Overview (04/19/2025): Following with [facility] Pulm - Dr. Durham. Oxygen tank & [...] Following with Podiatry - Dr. Bhagat at [facility] Jun 2024: Debridement of toenails 6-10, [...] months PSA: hx prostate CA, following with [facility] Urology Heart failure with mildly re duced [...] Exacerbation w/ Hospitalization 08/04 - 08/07/23 at [facility] Exacerbation w/ Hospitalization 11/20-11/25/24 at [facility] ESRD on HD: communication with Dr. Cr [...] 02/18/2023 Overview (12/12/2023): Following with Dr. Restrepo ([facility] Urology) Hx of bilateral stent placement ESRD (end stage renal disease) 11/05/2021 Assessment & Plan (04/27/2023 2:16 PM EDT): -Hemodialysis MWF at [address] [place] [address] Dialysis (first shift) -Access: Left arm basilic vein transposition performed on 08/03/2021. -Mar 2023: fistulagram performed, [facility] Vascular Dr. Blackburn. Has been working well since Assessment & Plan (12/22/2022 8:12 PM EDT): -Hemodialysis MWF at [address] [place] [address] Dialysis -Access: Left arm basilic vein transposition performed on 08/03/2021. Have started to access fistula at dialysis -Left AVF w/ +thrill/+bruit Prostate cancer metastatic to bone 11/05/2021 Assessment & Plan (04/19/2025 4:41 PM EDT): [place] score ranging from 7 to 9. 10/05/21 cystoscopy with bilateral ureteral stent exchange performed by [facility] Urology Continue to follow with [facility] Urology - Dr. Restrepo Continue to follow with [facility] Heme/Onc Previously on Bicalutamide 50mg PO daily [...] with bilateral ureteral stent exchange performed by [facility] Urology Continue to follow with [facility] Urology - Dr. Restrepo Continue to follow with [facility] Heme/Onc Previously on Bicalutamide 50mg PO daily through Urology, currently taking Abiraterone 01/24/23: cystoscopy with bilateral stent exchange November 2023: Bone scan stable, no progression Target 3 years hormone therapy then reduction to intermittent anti-androgen Apr 2024: DXA normal Assessment & Plan (04/27/2023 2:17 PM EDT): [place] score ranging from 7 to 9. 10/05/21 cystoscopy with bilateral ureteral stent exchange performed by [facility] Urology Continue to follow with [facility] Urology - Dr. Restrepo Continue to follow with [facility] Heme/Onc Previously on Bicalutamide 50mg PO daily through Urology, currently taking Abiraterone 01/24/23: cystoscopy with bilateral stent exchange Assessment & Plan (12/22/2022 8:13 PM EDT): [place] score ranging from 7 to 9. 10/05/21 cystoscopy with bilateral ureteral stent exchange performed by [facility] Urology Continue to follow with [facility] Urology - Dr. Restrepo Continue to follow with [facility] Heme/Onc Previously on Bicalutamide 50mg PO daily [...] Description 04/19/2025 2:30 PM EDT Office Visit [facility] MED & PEDS [address] [place] [address] Andie Whitmore FNP Chronic respiratory failure with hypoxia (CMS/HCC) (Primary Dx); Onychomycosis; Prostate cancer metastatic to bone (CMS/HCC); Epidermal inclusion cyst; Primary hypertension 04/19/2025 Travel 04/18/2025 Orders Only GENERIC EXTERNAL DATA DEPARTMENT Provider, Generic External Data 04/12/2025 Patient Outreach [facility] [address] [place] [phone] Andie Whitmore FNP Pre-visit Planning (SDOH screening completed on 02/11/25 ) 03/04/2025 Telephone [facility] & PED[facility] [address] [place] [address] Andie Whitmore FNP Hospital Follow-up 2025 Patient Outreach [facility] [address] [place] [phone] nAdie Joseph FNP Transition Of Care (Tcm) (HDF Unscheduled) from Last 3 Months Immunizations Immunization Administration [...] PSA, TOTAL Routine 04/18/2025 10:21 AM EDT LIPID PANEL, STANDARD Routine 07/26/2024 11:25 AM EST Hyperlipidemia, unspecified hyperlipidemia type from Last 3 Months or Most Recently Relevant to Health Maintenance Results * (ABNORMAL) Testosterone, Total, males (Adult), [place] (04/18/2025 10:21 AM EDT) Testosterone, Total 45(A) 250 - 1100 ng/dL [facility] Comment:Men with clinically significant hypogonadalsymptoms and testosterone values repeatedly inthe range of the 200-300 ng/dL or less, maybenefit from testosterone treatment afteradequate risk and benefits counseling.For additional information, please refer tohttp://education.eOriginal/faq/[email or web address](This link is being provided for informational/educational purposes only.)This test was developed and its analytical performancecharacteristics have been determined by [facility] [place], [place]. It hasnot been cleared or approved by the U.S. Food and DrugAdministration. This assay has been validated pursuantto the CLIA regulations and is used for clinicalpurposes.THIS TEST WAS PERFORMED AT:[id number] [place] [id number] HAYES MD,PHD 04/18/2025 10:2 1 AM EDT 04/18/2025 1:16 PM EDT Generic External Data Provider LAB BLOOD ORDERAB LES Final Result Performing Organization Address City/[facility]/ZIP Co de Phone Number [facility] [address] [place] [phone] * PSA,Total (04/18/2025 10:21 AM EDT) Prostate Specific Antigen 2.76 <0.05 - 4.0 ng/mL [facility] Comment:PSA methodology: Abb bahman Emery i ChemiluminescentMicroparticle Immunoassay (CMIA) 04/18/2025 10:2 1 AM EDT 04/18/2025 1:16 PM EDT Generic External Data Provider LAB BLOOD ORDERAB LES Final Result Performing Organization Address [facility] Co de Phone Number [facility] [address] [place] [phone] * Lipid Panel, Standard (07/26/2024 11:25 AM EST) Triglycerides 54 <150 mg/dL [facility] Comment:Desirable Triglyceri de: less than 150 mg/dLBorderline High Triglyceride 150-199 mg/dLHigh Triglyceride: 200-499 mg/dLVery High Triglyceride: greater than or equal to 5OO mg/dL Cholesterol 142 <200 mg/dL [facility] Comment:Desirable Cholestero l: less than 200 mg/dLBorderline High Cholesterol: 200-239 mg/dLHigh Cholesterol: greater than 239 mg/dL LDL Cholesterol Calculated 83 <100 mg/dL [facility] Comment:Desirable LDL: less than 100 mg/dLNear Optimal/Above Optimal LDL: 110- 129 mg/dLBorderline High LDL: 130-159 mg/dLHigh LDL: 160-189 mg/dLVery High LDL: greater than or equal to 190 mg/dL HDL Cholesterol 49 >40 mg/dL [facility] Comment:Desirable HDL: great er than 40 mg/dL Note: This HDL assay may give artificially low results in patients with liver disease. Blood Venous blood specimen / Unknown 07/26/2024 11:25 AM EST 07/26/2024 1:05 PM EST us Andie Whitmore FASHION DIRECTOR [employer] LAB BLOOD ORDERABLES Final Res ult [facility] [address] [place] [phone] from Last 3 Months or Most Recently Relevant to Health Maintenance Insurance [place] [address] [place] [id number] [facility] STANDARD Advance Directives Documents on File Type Date Recorded Patient Business Rules Analyst Expl anation Advance Directives and Living Will 03/06/2025 9:37 AM Health Care Proxy [facility] Care Teams Insurance Loss Control Surveyor Relationship Specialty Start Date End Date Andie Whitmore FNP [address] [place], [place] PCP - General Family Medicine 11/04/21 Trevor Restrepo MD [address] [place], [place] Urology 07/29/24 Juvenal Cr MD 100 [facility] 200 [place] [address] Nephrology 07/29/24 Kamini Chavarria MD [address] [place], [place] Neurology 07/29/24 Winston Bhagat DPM [address] [place], [place] Podiatry 07/29/24 Humberto Blackburn MD [address] [place], [place] Vascular Surgery 04/19/25 Brent Durham [address] [place] [address] Pulmonary Disease 04/19/25
--- OUTSIDE RECORDS SUMMARY | 2025-05-31 11:32 | XMS_ITS | Clinical Summary ---
Author Organization [facility] Address [address] [place] [address] Phone Care Team Providers Care Drop Forger Helper Name Role Phone Unavailable Primary Care Provider [...] 05/11/2025 Refill [facility] [address] [place] [address] Juvenal Cr MD 05/06/2025 Treatment [facility] [address] [place] [phone] Juvenal Cr MD End stage renal disease; Dependence on renal dialysis 05/01/2025 Refill [facility] [address] [place] [address] Juvenal Cr MD 04/29/2025 Treatment [facility] [address] [phone] Juvenal Cr MD End stage renal disease; Dependence on renal dialysis 04/17/2025 Treatment [facility] [address] [phone] Juvenal Cr MD End stage renal disease; Dependence on renal dialysis 04/12/2025 Orders Only [facility] [address] [phone] Juvenal Cr MD 04/08/2025 Treatment [facility] [address] [phone] Juvenal Cr MD End stage renal disease; Dependence on renal dialysis 04/01/2025 Treatment [facility] [address] [phone] Juvenal Cr MD End stage renal disease; Dependence on renal dialysis 03/25/2025 Treatment [facility] [address] [phone] Juvenal Cr MD End stage renal disease; Dependence on renal dialysis 03/20/2025 Treatment [facility] [address] [phone] Juvenal Cr MD End stage renal disease; Dependence on renal dialysis 03/11/2025 Treatment [facility] [address] [phone] Juvenal Cr MD End stage renal disease; Dependence on renal dialysis 03/04/2025 Treatment [facility] [address] [phone] Juvenal Cr MD End stage renal disease; Dependence on renal dialysis 03/01/2025 Treatment [facility] [address] [facility] [address] [place] [address] Juvenal Cr MD End stage renal disease; Dependence on renal dialysis 03/01/2025 TCM in Dialysis Clinic [facility] [address] [facility] [address] [place] [address] Juvenal Cr MD from Last [...] ORDERABLES Final Re sult Performing Organization Address [facility] de Phone Number [facility] [address] [place] [address] * (ABNORMAL) Hemoglobin and hematocrit (05/15/2025 3:00 AM EDT) Only the most recent of3 resultswithin the time period is included. Hgb 10.0(L) 13.7 - 17.5 g/dL [facility] Hematocrit 31.3(L) 40.1 - 51.0 % [facility] Hemoglobin x 3 30.0(L) 41.1 - 52.5 g/dL [facility] 05/15/2025 3:00 AM EDT 05/16/2025 2:57 PM EDT Juvenal Cr MD LAB BLOOD ORDERABLES Final Re sult Performing Organization Address [facility] de Phone Number [facility] [address] [place] [address] * LIH (05/01/2025 3:00 AM EDT) Only the most recent of5 resultswithin the time period is included. Pathologist [facility] Lipemia Normal Normal [facility] Icterus Normal Normal [facility] Hemolysis Normal Normal [facility] 05/01/2025 3:00 AM EDT 05/02/2025 2:21 PM EDT Juvenal Cr MD LAB [id number] SOLICITED RESULTS Final Result Performing Organization Address [facility] de Phone Number [facility] [address] [place] [address] * (ABNORMAL) Kt/V Natural Log, URR (05/01/2025 3:00 AM EDT) Only the most recent of3 resultswithin the time period is included. Pathologist [facility] Treatment Time 212 min [facility] Pre-Weight, lb [...] 2:21 PM EDT Juvenal Cr MD LAB [id number] SOLICITED RESULTS Final Result Performing Organization Address [facility] de Phone Number [facility] [address] [place] [address] * (ABNORMAL) Calcium Phosphorus Product, Adjusted (05/01/2025 [...] 2:21 PM EDT Juvenal Cr MD LAB [id number] SOLICITED RESULTS Final Result Performing Organization Address [facility] de Phone Number [facility] [address] [place] [address] * Hepatitis B Surface Ag w/Reflex Confirmation (05/01/2025 3:00 AM EDT) Only the most recent of3 resultswithin the time period is included. Hep B Surface Antigen Negative Negative [facility] 05/01/2025 3:00 AM EDT 05/02/2025 2:21 PM EDT Juvenal Cr MD LAB BLOOD ORDERABLES Final Re sult Performing Organization Address [facility] Co de Phone Number [facility] [address] [place] [address] * BUN/CREATININE RATIO (05/01/2025 3:00 AM EDT) Only the most recent of3 resultswithin the time period is included. BUN/Creatinine Ratio 10.0 <=23.0 [facility] 05/01/2025 3:00 AM EDT 05/02/2025 2:21 PM EDT Juvenal rC MD LAB [id number] SOLICITED RESULTS Final Result Performing Organization Address [facility] de Phone Number [facility] [address] [place] [address] * (ABNORMAL) TSAT (05/01/2025 3:00 AM EDT) [...] ORDERABLES Final Re sult Performing Organization Address [facility] Co de Phone Number [facility] [address] [place] [address] * (ABNORMAL) CBC and Differential (05/01/2025 3:00 [...] esult - Final [facility] [address] [place] [address] * ALT (05/01/2025 3:00 AM EDT) Only the most recent of3 resultswithin the time period is included. Pathologist [facility] ALT (SGPT) 18 10 - 49 U/L [facility] 05/01/2025 3:00 AM EDT 05/02/2025 2:21 PM EDT us Juvenal Cr MD LAB BLOOD ORDERABLES Final Re sult Performing Organization Address [facility] de Phone Number [facility] [address] [place] [address] * AST (05/01/2025 3:00 AM EDT) Only the most recent of3 resultswithin the time period is included. AST (SGOT) 22 <34 U/L [facility] 05/01/2025 3:00 AM EDT 05/02/2025 2:21 PM EDT us Juvenal Cr MD LAB BLOOD ORDERABLES Final Re sult Performing Organization Address [facility] de Phone Number [facility] [address] [place] [address] * Protein, total (05/01/2025 3:00 AM EDT) Only the most recent of3 resultswithin the time period is included. Total Protein 6.7 6.4 - 8.9 g/dL [facility] 05/01/2025 3:00 AM EDT 05/02/2025 2:21 PM EDT us Juvenal Cr MD LAB BLOOD ORDERABLES Final Re sult Performing Organization Address [facility] de Phone Number [facility] [address] [place] [address] * (ABNORMAL) Alkaline phosphatase (05/01/2025 3:00 AM EDT) Only the most recent of3 resultswithin the time period is included. Alkaline Phosphatase 265(H) 46 - 116 U/L [facility] 05/01/2025 3:00 AM EDT 05/02/2025 2:21 PM EDT us Juvenal Cr MD LAB BLOOD ORDERABLES Final Re sult Performing Organization Address [facility] Co de Phone Number [facility] [address] [place] [address] * PTH, Intact (05/01/2025 3:00 AM EDT) PTH, Intact 174 160 - 721 pg/mL [facility] Comment: Suggested (KDIGO) ESRD maintenance range is two to nine times the upper normal limit (80.1 pg/mL) for the laboratory. 05/01/2025 3:00 AM EDT 05/02/2025 2:21 PM EDT Juvenal Cr MD LAB BLOOD ORDERABLES Final Re sult Performing Organization Address [facility] Co de Phone Number [facility] [address] [place] [address] * Magnesium (05/01/2025 3:00 AM EDT) Only the most recent of3 resultswithin the time period is included. Magnesium 2.2 1.9 - 2.7 mg/dL [facility] 05/01/2025 3:00 AM EDT 05/02/2025 2:21 PM EDT Juvenal Cr MD LAB BLOOD ORDERABLES Final Re sult Performing Organization Address [facility] de Phone Number [facility] [address] [place] [address] * Lactate dehydrogenase (05/01/2025 3:00 AM EDT) Only the most recent of3 resultswithin the time period is included. LDH 225 120 - 246 U/L [facility] 05/01/2025 3:00 AM EDT 05/02/2025 2:21 PM EDT Juvenal Cr MD LAB BLOOD ORDERABLES Final Re sult Performing Organization Address [facility] Co de Phone Number [facility] [address] [place] [address] * (ABNORMAL) Glucose, random (05/01/2025 3:00 AM EDT) Only the most recent of3 resultswithin the time period is included. Glucose 144(H) 70 - 99 mg/dL [facility] Comment: ADA guidelines outline the following fasting glucose ranges: Normal: <100 Prediabetes: 100-125 Diabetes: >125 05/01/2025 3:00 AM EDT 05/02/2025 2:21 PM EDT Juvenal Cr MD LAB BLOOD ORDERABLES Final Re sult Performing Organization Address [facility] Co de Phone Number [facility] [address] [place] [address] * (ABNORMAL) Ferritin (05/01/2025 3:00 AM EDT) Only the most recent of3 resultswithin the time period is included. Ferritin 1,295(H) 22 - 322 ng/mL [facility] 05/01/2025 3:00 AM EDT 05/02/2025 2:21 PM EDT Juvenal Cr MD LAB BLOOD ORDERABLES Final Re sult Performing Organization Address [facility] de Phone Number [facility] [address] [place] [address] * (ABNORMAL) Creatinine, serum (05/01/2025 3:00 AM EDT) Only the most recent of3 resultswithin the time period is included. Creatinine 5.40(H) 0.70 - 1.30 mg/dL [facility] 05/01/2025 3:00 AM EDT 05/02/2025 2:21 PM EDT Juvenal Cr MD LAB BLOOD ORDERABLES Final Re sult Performing Organization Address [facility] de Phone Number [facility] [address] [place] [address] * Bilirubin, total (05/01/2025 3:00 AM EDT) Only the most recent of3 resultswithin the time period is included. Total Bilirubin 0.7 0.3 - 1.2 mg/dL [facility] 05/01/2025 3:00 AM EDT 05/02/2025 2:21 PM EDT Juvenal Cr MD LAB BLOOD ORDERABLES Final Re sult Performing Organization Address [facility] de Phone Number [facility] [address] [place] [address] * (ABNORMAL) Lipid panel (05/01/2025 3:00 AM [...] ORDERABLES Final Re sult Performing Organization Address [facility] de Phone Number [facility] [address] [place] [address] * (ABNORMAL) Electrolyte panel (05/01/2025 3:00 AM [...] ORDERABLES Final Re sult Performing Organization Address [facility] Co de Phone Number [facility] [address] [place] [address] * (ABNORMAL) Phosphorus (04/24/2025 3:00 AM EDT) Only the most recent of2 resultswithin the time period is included. Phosphorus, Serum 5.9(H) 2.5 - 5.0 mg/dL [facility] 04/24/2025 3:00 AM EDT 04/25/2025 2:26 PM EDT Juvenal Cr MD LAB BLOOD ORDERABLES Final Re sult Performing Organization Address [facility] de Phone Number [facility] [address] [place] [address] * Occult blood x 3, stool (01/22/2022) Occult Blood, Stool #1 Negative Negative [facility] Comment: Performed by [facility]. Occult Blood, Stool #2 Negative Negative [facility] Comment: Performed by [facility]. Collection Time 600 [facility] 01/22/2022 01/27/2022 1:2 3 PM EDT Narrative [facility] - 01/27/2022 Unless otherwise specified, test(s) performed at: [facility], [address] [place] [address] LIBRARY CLERK TALKING BOOKS: Cruzito Knutson M.D. For any questions, please call customer service at FREQUENCY:OTHER Resulting Agency Comment Specimen source: Occult Blood Card us Juvenal Cr MD LAB BODY FLUIDS AND STOOLS OR DERABLES Final Result Performing Organization Address [facility] Co de Phone Number [facility] from Last 3 Months or Most Recently Relevant to Health Maintenance Insurance [place]
--- OUTSIDE RECORDS SUMMARY | 2025-05-31 11:32 | XMS_ITS | Encounter Summary ---
Author Organization [employer] Address [address] [facility] 7[address] [place] [address] Care Team Providers Care Impregnation Operator Name Role Phone Andie Whitmore Primary Care Provider [phone] Trevor Restrepo MD Unavailable [phone] Juvenal Cr MD Unavailable Kamini Chavarria MD Unavailable [phone] Winston Bhagat DPM Unavailable [phone] Humberto Blackburn MD Unavailable Brent Durham Unavailable Reason for Referral * Imaging (Urgent) - Closed Specialty Diagnoses / Procedures Referred By Contac t Referred To Contact Cardiology Diagnoses ESRD (end stage renal disease) (HCC) Primary hypertension Shortness of breath Procedures Transthoracic Echo (TTE) Complete Andie Whitmore FNP [address] [place] [address] Phone: tel: fax: [facility] [address] [place] [address] Phone: tel: fax: Referral ID Status Reason Start Date Expiration Date V isits Requested Visits Authorized [id number] Closed Perform Procedure 06/29/2023 06/28/2024 1 1 Reason for Visit * Reason Onset Date Comments Call Back Request 06/21/2023 Encounter Details Date Type Department Care Team (Late st Contact Info) Description 06/21/2023 Telephone [facility] MED[facility]INE [address] [place] [address] Andie Whitmore FNP [address] [place] [address] Call Back Request Social History Tobacco Use [...] encounter Miscellaneous Notes * Telephone Encounter - Alebrta Chang RN - 06/30/2023 9:32 AM EST [...] order of the heart. Contact pt at [phone] * Telephone Encounter - Iram Pierre RN [...] just once, had an EKG, and the carrot tier said he was just fine. Patient has [...] having dialysis tomorrow. Please contact pt at [phone] documented in this encounter Plan of Treatment Scheduled Orders Name Type Priority Associated Diagnoses Order Schedule Transthoracic Echo (TTE) Complete Echocardiography Urgent ESRD (end stage renal disease) ([facility]/HCC) Primary hypertension Shortness of breath Expected: [...] documented as of this encounter Care Teams Impregnation Operator Relationship Specialty Start Date End Date Myranda CORINNE Chaves [address] [place] [address] PCP - General Family Medicine 11/04/21 Trevor Restrepo MD [address] [place] [address] Urology 07/29/24 Juvenal Cr MD [address] [facility] [address] [place] [address] Nephrology 07/29/24 Kamini Chavarria MD [address] [place] [address] Neurology 07/29/24 Winston Bhagat DPM [address] [place] [address] Podiatry 07/29/24 Humberto Blackburn MD [address] [place] [address] Vascular Surgery 04/19/25 Brent Durham [address] [place] [address] Pulmonary Disease 04/19/25 documented as of this encounter
--- OUTSIDE RECORDS SUMMARY | 2025-05-31 11:32 | XMS_ITS | Encounter Summary ---
Author Organization [employer] Address [address] [facility] [address] [place] [address] Care Team Providers Care Loan Counselor Name Role Phone Andie Whitmore Primary Care Provider [phone] Trevor Restrepo MD Unavailable Juvenal Cr MD Unavailable Kamini Chavarria MD Unavailable [phone] Winston Bhagat DPM Unavailable Humberto Blackburn MD Unavailable Brent Durham Unavailable Reason for Visit * Reason Onset Date Comments Hospital Follow-up 11/09/2024 Encounter Details Date Type Department Care Team ([facility] st Contact Info) Description 11/09/2024 Telephone [facility] [address] [place], [place] [phone] Andie Whitmore FNP [address] [place], [place] [phone] Hospital Follow-up Social History Tobacco Use Types [...] from pt requesting a F appt. Hospital: [facility] Date of admission: 11/04/24 Discharge date: 11/08/24 Diagnosed: pneumonia *Send message to [place] Clinical Care Coordinators documented in this encounter Plan of Treatment Not on file documented as of this encounter Visit Diagnoses Not on filedocumented in this encounter Additional Health Concerns Assessment Noted Time PHQ-9 Depression Total Score: 1 12/23/19 23 3:02 PM EDT documented as of this encounter Care Teams Loan Counselor Relationship Specialty Start Date End Date Andie Whitmore FNP [address] [place] [address] PCP - General Family Medicine 11/04/21 Trevor Restrepo MD [address] [place] [address] [address] [place] [address] Urology 07/29/24 Juvenal Cr MD [address] [facility] [address] [place] [address] Nephrology 07/29/24 Kamini Chavarria MD [address] [place] [address] [address] [place] [address] Neurology 07/29/24 Winston Bhagat DPM [address] [place] [address] [address] [place] [address] Podiatry 07/29/24 Humberto Blackburn MD [address] [place], [place] [phone] Vascular Surgery 04/19/25 Brent Durham [address] [place] [address] Pulmonary Disease 04/19/25 documented as of this encounter
--- OUTSIDE RECORDS SUMMARY | 2025-05-31 11:32 | XMS_ITS | Encounter Summary ---
Author Organization [employer] Address [address] [facility] 7t [place] [address] Care Team Providers Care General Superintendent Name Role Phone Andie Whitmore Primary Care Provider [phone] Trevor Restrepo MD Unavailable Juvenal Cr MD Unavailable Kamini Chavarria MD Unavailable Winston Bhagat DPM Unavailable Humberto Blackburn MD Unavailable Brent Durham Unavailable Reason for Visit * Reason Onset Date Comments Medication Question 02/29/2024 Encounter Details Date Type Department Care Team ([facility] st Contact Info) Description 02/29/2024 Telephone [facility] MEDICINE [address] [place] [address] Andie Whitmore FNP [address] [place], [place] [phone] Medication Question Social History Tobacco Use Types [...] was 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 documented in this encounter Plan of Treatment Not on file documented as of this encounter Visit Diagnoses Not on filedocumented in this encounter Additional Health Concerns Assessment Noted Time PHQ-9 Depression Total Score: 1 12/23/19 23 3:02 PM EDT documented as of this encounter Care Teams General Superintendent Relationship Specialty Start Date End Date Andie Whitmore FNP [address] [place] [address] PCP - General Family Medicine 11/04/21 Trevor Restrepo MD [address] [place] [address] Urology 07/29/24 Juvenal Cr MD [address] [facility] [address] [place] [address] Nephrology 07/29/24 Kamini Chavarria MD [address] [place] [address] [address] [place] [address] Neurology 07/29/24 Winston Bhagat DPM [address] [place] [address] [address] [place] [address] Podiatry 07/29/24 Humberto Blackburn MD [address] [place] [address] Vascular Surgery 04/19/25 Brent Durham [address] [place] [address] Pulmonary Disease 04/19/25 documented as of this encounter
[2025-06-06] VITALS (11 sets, daily range): BP systolic 188–205; BP diastolic 85–110; PULSE 76–90; RESP 12–22; TEMP 36.9–37.1; O2SAT 85–100; BMI 23.6; BMI 24.6
[2025-06-06 06:46] LABS: MANUAL DIFF FLAG NO
[2025-06-06 06:48] LABS: Hematocrit 35.4 % (42.0-52.0); Hemoglobin 11.8 g/dl (14.0-18.0); Imm Gran Abs Auto 0.04 X10*3/uL (0.00-0.03); Imm Gran Pct Auto 0.6 % (0.0-0.4); Lymphocytes Absolute Auto 0.7 X10*3/uL (1.2-4.9); Mean Corpuscular HGB Conc 33.3 g/dl (31.0-36.0); Mean Corpuscular Hemoglobin 29.6 pg (27.0-33.0); Mean Corpuscular Volume 88.9 fL (80.0-98.0); NRBC Abs Auto 0.000 X10*3/uL (0.0-0.012); NRBC Pct Auto 0.0 /100WBC (0.0-0.2); Platelet Count 175 X10*3/uL (160-400); Red Blood Count 3.98 X10*6/uL (4.60-5.80); White Blood Count 6.5 X10*3/uL (4.8-10.8)
[2025-06-06 06:59] LABS: Potassium 4.9 mmol/L (3.3-5.1)
[2025-06-06] MEDS: Heparin Sodium,Porcine 10,000 UNIT/10 ML VIAL 3000 UNIT IVPUSH (08:41)
--- NOTE | 2025-06-06 09:18 | P.OP_ITS ---
Operative Note Operative Note Date of Service: 06/06/25 Narrative: Angiogram report from [facility] Preoperative diagnosis: End-stage renal disease Postoperative diagnosis: Same Procedure: 1. Ultrasound-guided left arm fistula access 2. Fistulogram 3. Venous outflow tract plasty Surgeon:Humberto Blackburn M.D., FACS, RPVI Order Entry Specialist:None Anesthesia: Local with moderate conscious sedation. Total intraservice moderate sedation time was 26 minutes. I monitored the patient's level of consciousness and physiologic status continuously throughout the procedure. Specimens:none Drains:none Estimated blood loss: Less than 10 ml Radiation Dose: 22.7 mGy Implant: IntelliChemtronic impact DCB 8 x 40 Indications: 65-year-old gentleman with end-stage renal disease. On dialysis had increased bleeding times. The patient has signed the informed consent after reviewing risks, complications, benefits, and alternatives previously discussed with the patient. The patient was given the opportunity to ask any additional questions or voice any concerns. All questions were answered to the patient's satisfaction. Procedure in detail: Patient was brought to the angiography suite prior to which a time-out was called for patient identification and site verification. Left arm was prepped and draped in standard surgical fashion. Under ultrasound guidance fistula was accessed on its venous outflow tract. A precision 5 Argentine sheath was then placed. We advanced a Glidewire advantage to the more central venous system. Fistulogram was undertaken through the sheath. There was a small stenotic segment which was noted near the shoulder junction. At this time 3000 units of systemic heparin was administered. We upsized to a 7 Argentine sheath through this the stenotic venous outflow tract was plasty with an 8 x 40 balloon originally. This was followed up with an 8 x 40 drug coated balloon. This was brought into position in under 3 minutes and insufflated for a total of 3 minutes in duration. Once this was accomplished completion imaging demonstrated good flow throughout the fistula. Pursestring suture of nylon was placed around the puncture site. Sheath was removed and sutures were tied down. Adequate hemostasis was achieved. Patient tolerated the procedure well. Returned to recovery with stable vitals. Interpretation of films: 1. Ultrasound demonstrates appropriate fistula access. Vessel was patent with minimal stenosis. Needle entry was visualized. Image of ultrasound was saved. 2. Fistulogram demonstrated outflow tract stenosis more so towards the junction where the basilic vein went more into the axillary vein. 3. Completion fistulogram demonstrated good outflow with minimal residual stenosis Conclusion: 1. Successful venous outflow tract plasty This note is constructed using voice recognition software. While every effort has been made to ensure accuracy, field crop farm worker errors may have been included. Thank you for allowing me to participate in the care of your patient. Yours sincerely, Humberto Blackburn MD, FACS, R.P.V.I.
== END 2025-06-06 10:08 | disposition home or self-care (01) ==
PROVIDERS: PCP Registered Nurse; Visit Provider Surgery Vascular Surgery
DX: T82.530A Leakage of surgically created arteriovenous fistula, initial encounter (principal); I12.0 Hypertensive chronic kidney disease with stage 5 chronic kidney disease or end stage renal disease; N18.6 End stage renal disease; Z99.2 Dependence on renal dialysis; J44.9 Chronic obstructive pulmonary disease, unspecified; D64.9 Anemia, unspecified; Z79.899 Other long term (current) drug therapy; Z98.1 Arthrodesis status; Z98.890 Other specified postprocedural states; Z87.891 Personal history of nicotine dependence
CPT/HCPCS: 36415; 36901; 36902; 76937; 84132; 85025; 99152; 99153; C1725; C1769; C1894; C2623; J1644; J2003; J2250; J3010; Q9967

== ENCOUNTER → 2025-06-06 06:25 | Outpatient (BNV) | payer MEDICARE, MEDICAID, SELFPAY | PROVIDERS: PCP Registered Nurse; Visit Provider Surgery Vascular Surgery | DX: N18.6 End stage renal disease (principal) | CPT/HCPCS: 36902 ==